=== PATIENT | male | born 1960 | race Caucasian/White ===

== ENCOUNTER 2020-03-14 09:41 | Outpatient (REF) | payer MEDICARE, MEDICAID, SELFPAY | END 2020-03-14 09:42 | disposition home or self-care (01) | LOC: HO.MDS 09:41 | PROVIDERS: PCP Internal Medicine; Visit Provider Internal Medicine Gastroenterology | DX: K50.10 Crohn's disease of large intestine without complications (principal) | CPT/HCPCS: 96365; J3380 ==

== ENCOUNTER 2020-03-23 12:51 | Day surgery (SDC) | payer MEDICARE, MEDICAID, SELFPAY ==
[2020-03-22 12:08] VITALS: BMI 36.6
--- NOTE | 2020-03-22 12:44 | HO.ANESPROP2 ---
Documented by User: Sneha Yanira 03/22/20 12:46 HPI - Anesthesia Eval Consult details Narrative: 59yo M for colonoscopy: Crohn's ds [facility] Past Medical History Medical History Acute promyelocytic leukemia Anxiety Asthma Chronic cholecystitis Colitis Crohn disease Depression Diabetes 1.5, managed as type 1 Elevated serum glutamic pyruvic transaminase (SGPT) level H/O flexible sigmoidoscopy Hypertension Kidney disease Left sided abdominal pain Renal stones Thalamic pain syndrome (hyperesthetic) Tubular adenoma of colon Surgical History Surgical History H/O lithotripsy H/O rectal sphincterotomy History of cholecystectomy History of colonoscopy History of hemorrhoidectomy Social History Social History Smoking Status: Former smoker Smoked in Last 30 Days: No Use of substances other than those prescribed or required for medical reasons: No Advance Directives: No Advance Directives Information Provided: No Meds Allergies Allergy/AdvReac Type Severity Reaction Status Date / Time No Known Allergies Allergy Unverified 02/24/20 15:27 [No Known Allergies*] none Allergy Unknown Uncoded 12/27/19 00:00 Home Medications Medication Instructions Recorded Confirmed Type albuterol sulfate INHALATION 03/22/20 History albuterol sulfate [Ventolin HFA] INHALATION 03/22/20 History budesonide PO 03/22/20 History budesonide-formoterol [Symbicort] INHALATION 03/22/20 History docusate sodium [Colace] 100 mg PO DAILY 03/22/20 03/22/20 History glyburide mg PO 03/22/20 History hydrocortisone acetate [Anusol-HC] 25 mg WI BID 03/22/20 03/22/20 History lisinopril PO 03/22/20 History mesalamine [Lialda] PO 03/22/20 History metformin mg PO 03/22/20 History methylcellulose (laxative) 500 mg PO BID 03/22/20 03/22/20 History [Citrucel] mirtazapine mg PO 03/22/20 History quetiapine PO 03/22/20 History sucralfate PO 03/22/20 History tapentadol [Nucynta] mg PO 03/22/20 03/22/20 History vedolizumab [Entyvio] 300 mg IV Q4W 03/22/20 03/22/20 History amlodipine 5 mg PO DAILY 03/23/20 03/23/20 History Exam Exam Date and Time: March 22, 2020 1244 Height,Weight and Vital Signs: Height 6 ft 3 in Weight 132.903 kg Pertinent Lab Results Pertinent Lab Results: Laboratory Tests 02/28/20 02/28/20 11:10 11:10 WBC 11.7 H Hgb 14.4 Hct 46.3 Plt Count 376 D Sodium 141 Potassium 4.6 Chloride 101 BUN 17 H D Creatinine 1.15 Assessment and Plan Assessment Anesthesia Assessment: Chart Reviewed Documented by User: Aron Morgan MD 03/23/20 13:48 PMFSH Past Medical History Medical History Acute promyelocytic leukemia Anxiety Asthma Chronic cholecystitis Colitis Crohn disease Depression Diabetes 1.5, managed as type 1 Elevated serum glutamic pyruvic transaminase (SGPT) level H/O flexible sigmoidoscopy Hypertension Kidney disease Left sided abdominal pain Renal stones Thalamic pain syndrome (hyperesthetic) Tubular adenoma of colon Surgical History Surgical History H/O lithotripsy H/O rectal sphincterotomy History of cholecystectomy History of colonoscopy History of hemorrhoidectomy Social History Social History Smoking Status: Former smoker Smoked in Last 30 Days: No Use of substances other than those prescribed or required for medical reasons: No Advance Directives: No Advance Directives Information Provided: No Meds Allergies Allergy/AdvReac Type Severity Reaction Status Date / Time No Known Allergies Allergy Unverified 02/24/20 15:27 [No Known Allergies*] none Allergy Unknown Uncoded 12/27/19 00:00 Home Medications Medication Instructions Recorded Confirmed Type albuterol sulfate INHALATION 03/22/20 History albuterol sulfate [Ventolin HFA] INHALATION 03/22/20 History budesonide PO 03/22/20 History budesonide-formoterol [Symbicort] INHALATION 03/22/20 History docusate sodium [Colace] 100 mg PO DAILY 03/22/20 03/22/20 History glyburide mg PO 03/22/20 History hydrocortisone acetate [Anusol-HC] 25 mg WI BID 03/22/20 03/22/20 History lisinopril PO 03/22/20 History mesalamine [Lialda] PO 03/22/20 History metformin mg PO 03/22/20 History methylcellulose (laxative) 500 mg PO BID 03/22/20 03/22/20 History [Citrucel] mirtazapine mg PO 03/22/20 History quetiapine PO 03/22/20 History sucralfate PO 03/22/20 History tapentadol [Nucynta] mg PO 03/22/20 03/22/20 History vedolizumab [Entyvio] 300 mg IV Q4W 03/22/20 03/22/20 History amlodipine 5 mg PO DAILY 03/23/20 03/23/20 History Exam Airway Mallampati Class: III TM Dist: >3cm Denture: Upper and Lower Heart: rrr Lungs: nl Other: ao Assessment and Plan Assessment Anesthesia Assessment: Anesthesia Plan Discussed, PAT Visit and Chart Reviewed Final Anesthetic Review NPO: Yes ASA Class: III Final Preanesthetic Review: No Changes in Pt Med Stat, Meds/Allgs Chart Reviewed, Consent Obtained/Reviewed and Anes Risks/Benef Reviewed Patient Risk: Intermediate Anesthetic Plan Anesthetic Plan: MAC: Disposition: Standard PACU
[2020-03-23 13:46] LABS: Glucose, Whole Blood 128 mg/dL (60-115)
[2020-03-23 13:47] VITALS: BP 107/71; PULSE 97; RESP 16; TEMP 36.4; O2SAT 97
[2020-03-23] MEDS: Lactated Ringers 1,000 ML 100 ML IVCONT (14:00)
--- NOTE | 2020-03-23 14:57 | MHC.SHP ---
Pre-Procedural Eval Section B Chief Complaint: crohns disease Allergies: Allergies Allergy/AdvReac Type Severity Reaction Status Date / Time No Known Allergies Allergy Unverified 02/24/20 15:27 [No Known Allergies*] none Allergy Unknown Uncoded 12/27/19 00:00 Plan Patient has been examined and remains a candidate for the planned procedure
[2020-03-23 15:47] VITALS: BP 113/71; PULSE 90; RESP 16; TEMP 36.9; O2SAT 96
--- NOTE | 2020-03-23 15:49 | PM.PROC ---
Brief Operative Note Date of procedure: 03/23/20 Pre-op diagnosis: Crohn's colitis, not responding to treatment,, hx of tubular adenomas Post-op diagnosis: other (Very active Left sided disease; 2 polyps) Procedure: Colonoscopy with excisional polypectomies and multiple bx. Anesthesia: MAC (Areli Duran CRNA, OWAIS, MD) Surgeon: Crystal Chu Estimated blood loss (mL): 10 Pathology: other (ASPIRATE FOR C. DIFICILE, POLYP -PROX TC. ASCENDING COLON. bX RIGHT, LEFT COLON) Condition: stable Disposition: PACU
[2020-03-23 16:02] VITALS: BP 112/67; PULSE 95; RESP 16; O2SAT 95
[2020-03-23 16:17] VITALS: BP 121/73; PULSE 77; RESP 16; O2SAT 95
[2020-03-23 18:39] LABS: CDIFF Ag Negative (Negative); CDIFF Internal ctrl Dots and bkg OK (V); CDiff Toxin Negative (Negative)
--- NOTE | 2020-03-24 10:04 | OP_ITS ---
SURGEON: Crystal Chu MD PROCEDURE PERFORMED: Colonoscopy with excisional polypectomy x2. Multiple biopsies were taken. ESTIMATED BLOOD LOSS: COMPLICATIONS: No complications. ANESTHESIA: Monitored. ANESTHESIOLOGIST: Howard Duran CRNA/Rodríguez Morgan ASSISTANTS:NONE SPECIMENS: Removed diminutive polyp from proximal transverse colon, diminutive polyp from ascending colon. Biopsies right, biopsies left. PREOPERATIVE DIAGNOSES: Exacerbation of inflammatory bowel disease, categorized as Crohn's colitis. PRIMARY CARE PROVIDER: Cherelle Elizalde. POSTOPERATIVE DIAGNOSES: Active disease: Lleft sided most active; Fadia-Appendiceal inflammatory changes noted. DIE CASTER: Dr. Chu. FINDINGS: Digital rectal exam revealed difficulty to totally palpate prostate. Video colonoscope was introduced without difficulty. There was definite inflammatory changes from the rectum on up through the majority of the left colon to approximately 60 cm on the scope. There were ulcerations and friability. Prep was excellent. Scope slowly moved through this area and after the splenic flexure, mucosa was mildly edematous. Scarring was noted. I was able to get to the cecum. There was area of periappendiceal inflammatory changes. I could not hold position to biopsy and I pulled back through ascending colon (due to moderate spasm and degree of redundancy, intubation of the terminal ileum was not able to be done). Random right colon biopsies were obtained. Two diminutive polyps were removed and left colon biopsies were obtained as well. I did send down a specimen, a colonic aspirate for C difficile assessment. Anorectal verge was clear. No large hemorrhoids were seen. PLAN: At this time, I am going to make a brief summary of this patient's current activity. CURRENT MEDICATIONS: Budesonide 6 mg daily, Entyvio 300 mg by IV infusion q.4 weeks. Citrucel 1 or 2 doses daily. Lialda was recently restarted in the last 2 months. The patient in October was treated with vancomycin for C difficile. On 11/27/2019, he had a stool calprotectin 1970 (this is elevated). In December, a Prometheus Monitr testing came out as 79, which is consistent with very active disease. CRP on 12/07 was 0.97, repeated on 02/27 was 4.32. Entyvio level done on 01/03 was 9.5. No antibodies were detected. Reminder, the patient has morbid obesity, diabetes, and asthma as comorbid conditions. He recently has been having some dental work, so he has no lower teeth (his lower teeth have been extracted.) He does admit to eating, trying to maintain adequate protein intake. Last biopsies were in 2018 in August that was chronic active disease, both in August and November. However, he was clinically improved at that time. Reminder, the patient had been previously on Humira which was stopped in 2016, when he was diagnosed with Promyelocytic Leukemia from which he is in remission. Current CRP on 12/07 was 0.97, on 02/27 with increased activity was 4.32 and Entyvio level done on 01/03 was 9.5 with no antibodies. The patient clearly has very active disease at this time. We will await biopsies and stool aspirate findings consideration to changing management at this time. GRAFT OR IMPLANTS: No grafts or implants. CONDITION: Postprocedure, stable. Crystal Chu MD MEN/MODL / [id number] MTDD
== END 2020-03-23 16:30 | disposition home or self-care (01) ==
PROVIDERS: Internal Medicine Gastroenterology; PCP Internal Medicine; Visit Provider Internal Medicine
PROC: 0DJD8ZZ Inspection of Lower Intestinal Tract, Via Natural or Artificial Opening Endoscopic (ICD-10-PCS; CPT 45378; principal; 2020-03-23 14:30)
DX: K50.10 Crohn's disease of large intestine without complications (principal); Z86.010 Personal history of colon polyps; D12.2 Benign neoplasm of ascending colon; D12.3 Benign neoplasm of transverse colon; C92.40 Acute promyelocytic leukemia, not having achieved remission; G89.0 Central pain syndrome; I10 Essential (primary) hypertension; E10.9 Type 1 diabetes mellitus without complications; J45.909 Unspecified asthma, uncomplicated; Z79.51 Long term (current) use of inhaled steroids; Z79.84 Long term (current) use of oral hypoglycemic drugs; Z79.899 Other long term (current) drug therapy; Z87.442 Personal history of urinary calculi; Z90.49 Acquired absence of other specified parts of digestive tract; Z87.891 Personal history of nicotine dependence
CPT/HCPCS: 45380; 82947; 87324; 87449; 88305

== ENCOUNTER 2020-04-12 08:30 | Outpatient (REF) | payer MEDICARE, MEDICAID, SELFPAY ==
[2020-04-12 08:57] LABS: MANUAL DIFF FLAG NO
[2020-04-12 09:06] LABS: Basophils Absolute Auto 0.1 X10*3/uL (0.0-0.2); Basophils Percent Auto 0.7 % (0-2); Eosinophils Absolute Auto 0.2 X10*3/uL (0.0-0.4); Eosinophils Percent Auto 2.8 % (0-4); Hematocrit 42.7 % (42-52); Hemoglobin 13.6 g/dl (14.0-18.0); Imm Gran Abs Auto 0.02 X10*3/uL (0.00-0.03); Imm Gran Pct Auto 0.3 % (0.0-0.4); Lymphocytes Absolute Auto 2.2 X10*3/uL (1.2-4.9); Mean Corpuscular HGB Conc 31.9 g/dl (31.0-36.0); Mean Corpuscular Volume 94.3 fL (80-98); Monocytes Absolute Auto 0.6 X10*3/uL (0.1-1.2); Monocytes Percent Auto 8.8 % (2-11); Neutrophils Percent Auto 56.4 % (45-73); Platelet Count 350 X10*3/uL (160-400); Red Blood Count 4.53 X10*6/uL (4.60-5.80); Red Cell Distribution Width 13.4 % (11.0-16.0); White Blood Count 7.1 X10*3/uL (4.8-10.8)
[2020-04-12 09:35] LABS: Alanine Aminotransferase 15 U/L (0-40); Albumin Level 3.8 g/dL (3.5-5.0); Alkaline Phosphatase 63 U/L (39-117); Anion Gap 8 (12-20); Aspartate Amino Transferase 14 U/L (5-37); Bilirubin Total 0.6 mg/dL (0.0-1.0); Blood Urea Nitrogen 13 mg/dL (9-16); C Reactive Protein 1.58 mg/dL (< or = 0.50); Calcium 8.7 mg/dL (8.4-10.2); Carbon Dioxide 32 mmol/L (22-29); Chloride 104 mmol/L (96-108); Estimated Glomerular Filt Rate > 60; Glucose Random 109 mg/dL (60-115); Potassium 4.1 mmol/l (3.3-5.1); Sodium 140 mmol/L (135-145); Total Protein 6.9 g/dL (6.5-8.0)
== END 2020-04-12 08:31 | disposition home or self-care (01) ==
LOC: HO.MDS 08:30
PROVIDERS: PCP Internal Medicine; Visit Provider Internal Medicine Gastroenterology
DX: K50.90 Crohn's disease, unspecified, without complications (principal)
CPT/HCPCS: 36415; 80053; 85025; 86140; 96365; J3380

== ENCOUNTER → 2020-04-26 08:42 | Outpatient (BNVA) | payer MEDICARE, MEDICAID, SELFPAY | PROVIDERS: PCP Internal Medicine; Referring Provider Internal Medicine; Visit Provider Internal Medicine Gastroenterology | DX: K50.111 Crohn's disease of large intestine with rectal bleeding (principal); K52.9 Noninfective gastroenteritis and colitis, unspecified; D12.2 Benign neoplasm of ascending colon; Z98.890 Other specified postprocedural states | CPT/HCPCS: Q3014 ==

== ENCOUNTER 2020-05-10 08:46 | Outpatient (REF) | payer MEDICARE, MEDICAID, SELFPAY ==
[2020-05-10 09:22] LABS: Basophils Absolute Auto 0.1 X10*3/uL (0.0-0.2); Basophils Percent Auto 0.6 % (0-2); Eosinophils Absolute Auto 0.2 X10*3/uL (0.0-0.4); Eosinophils Percent Auto 2.3 % (0-4); Hematocrit 42.2 % (42-52); Hemoglobin 13.5 g/dl (14.0-18.0); Imm Gran Abs Auto 0.02 X10*3/uL (0.00-0.03); Imm Gran Pct Auto 0.3 % (0.0-0.4); Lymphocytes Absolute Auto 2.1 X10*3/uL (1.2-4.9); Lymphocytes Percent Auto 26.5 % (20-40); MANUAL DIFF FLAG NO; Mean Corpuscular Hemoglobin 29.8 pg (27.0-33.0); Mean Corpuscular Volume 93.2 fL (80-98); Mean Platelet Volume 8.9 fL (9.4-12.4); Monocytes Absolute Auto 0.7 X10*3/uL (0.1-1.2); Monocytes Percent Auto 9.1 % (2-11); Neutrophils Absolute Auto 4.8 X10*3/uL (2.0-8.3); Neutrophils Percent Auto 61.2 % (45-73); Platelet Count 356 X10*3/uL (160-400); Red Blood Count 4.53 X10*6/uL (4.60-5.80); Red Cell Distribution Width 13.4 % (11.0-16.0); White Blood Count 7.8 X10*3/uL (4.8-10.8)
[2020-05-10 09:44] LABS: Alanine Aminotransferase 15 U/L (0-40); Albumin Level 3.7 g/dL (3.5-5.0); Alkaline Phosphatase 64 U/L (39-117); Anion Gap 11 (12-20); Aspartate Amino Transferase 12 U/L (5-37); Bilirubin Total 0.5 mg/dL (0.0-1.0); Blood Urea Nitrogen 16 mg/dL (9-16); C Reactive Protein 1.93 mg/dL (< or = 0.50); Calcium 8.8 mg/dL (8.4-10.2); Carbon Dioxide 29 mmol/L (22-29); Chloride 103 mmol/L (96-108); Estimated Glomerular Filt Rate > 60; Glucose Random 129 mg/dL (60-115); Potassium 3.9 mmol/l (3.3-5.1); Sodium 139 mmol/L (135-145); Total Protein 6.9 g/dL (6.5-8.0)
== END 2020-05-10 08:47 | disposition home or self-care (01) ==
LOC: HO.MDS 08:46
PROVIDERS: PCP Internal Medicine; Visit Provider Internal Medicine Gastroenterology
DX: K50.90 Crohn's disease, unspecified, without complications (principal)
CPT/HCPCS: 36415; 80053; 85025; 86140; 96365; J3380

== ENCOUNTER 2020-05-11 08:52 | Outpatient (REF) | payer MEDICARE, MEDICAID, SELFPAY ==
--- NOTE | 2020-05-11 08:53 | MR_ITS ---
EXAMINATION: MR ABDOMEN WITHOUT AND WITH CONTRAST MR PELVIS WITHOUT AND WITH CONTRAST CLINICAL INFORMATION: K52.9 - Noninfective gastroenteritis and colitis, unspecified COMPARISON: Renal ultrasound 04/21/2019, 12/09/2018, CT abdomen and pelvis noncontrast 02/11/2018 and 06/23/2017 TECHNIQUE: MR abdomen and MR pelvis are performed without and with use of 10 mL intravenous Gadavist gadolinium contrast. Imaging is performed in 3 planes. Patient had 1.5 L of oral Breeza prior to imaging. FINDINGS: LUNG BASES: The visualized lung bases are unremarkable. LIVER, GALLBLADDER, AND BILIARY TREE: The liver is normal in size, smooth in contour, and normal in signal. No focal hepatic lesion or biliary ductal dilatation is present. Prior cholecystectomy. PANCREAS: Unremarkable. SPLEEN: Normal. ADRENAL GLANDS: Normal. KIDNEYS AND URETERS: The kidneys are normal in size, shape, and enhance symmetrically. No hydronephrosis. No perinephric stranding. There is a punctate cyst upper pole right kidney under 1 cm. GASTROINTESTINAL TRACT: There is moderate circumferential wall thickening left colon 7-9 mm in thickness beginning at mid descending colon and continuing in continuity through the sigmoid and rectum. There is no high T2 signal in the affected areas. No engorgement vasa recta or stranding in the adjacent mesentery. There is no proximal obstruction, ascites, or fluid collection. Following contrast, there is mild circumferential hyperenhancement in the wall. The remainder of the large and small bowel is unremarkable. The appendix is normal. There is similar extent of involvement with circumferential wall thickening left colon and rectum on prior CT studies 2018. ABDOMINAL WALL: Small bilateral fat-containing inguinal hernias similar to prior CT 2018. No ventral hernia. LYMPH NODES: No lymphadenopathy. VASCULAR: Unremarkable. PELVIS: No additional findings. Prostate within normal size. Seminal vesicles symmetric. OSSEOUS STRUCTURES: No acute bony abnormality. There are degenerative changes lumbosacral junction and probable intravertebral hemangioma are again seen at T12. MR/MR abdomen wo/w con IMPRESSION: 1. Moderate circumferential wall thickening from mid ascending colon through the sigmoid and rectum without inflammatory changes in the adjacent mesentery, vasa recta engorgement, T2 signal or proximal obstruction. There is circumferential wall enhancement suggesting mild underlying inflammation. Findings likely related to chronic ulcerative colitis. Similar disease noted left colon and rectum in 2018. 2. Remainder of large and small bowel unremarkable. Normal appendix. 3. No adenopathy, ascites, or fluid collection.
== END 2020-05-11 08:53 | disposition home or self-care (01) ==
LOC: HO.MRI 08:52
PROVIDERS: Visit Provider Internal Medicine Gastroenterology
DX: K50.111 Crohn's disease of large intestine with rectal bleeding (principal); K52.9 Noninfective gastroenteritis and colitis, unspecified
CPT/HCPCS: 72197; 74183; A9585

== ENCOUNTER 2020-05-29 11:26 | Emergency (ER) | payer MEDICARE, MEDICAID, SELFPAY ==
[2020-05-29 11:30] VITALS: BP 135/75; PULSE 108; RESP 17; TEMP 36.6; O2SAT 97; BMI 34.7
== END 2020-05-29 15:30 | disposition left against medical advice (07) ==
LOC: HO.ED 15:50
PROVIDERS: Emergency Provider Emergency Medicine; PCP Internal Medicine
DX: R10.9 Unspecified abdominal pain (principal)
CPT/HCPCS: 99282

== ENCOUNTER 2020-06-07 08:46 | Outpatient (REF) | payer MEDICARE, MEDICAID, SELFPAY ==
[2020-06-07 09:18] LABS: MANUAL DIFF FLAG NO
[2020-06-07 09:19] LABS: Basophils Percent Auto 0.5 % (0-2); Eosinophils Absolute Auto 0.2 X10*3/uL (0.0-0.4); Eosinophils Percent Auto 2.8 % (0-4); Hematocrit 42.4 % (42-52); Hemoglobin 13.4 g/dl (14.0-18.0); Imm Gran Abs Auto 0.02 X10*3/uL (0.00-0.03); Imm Gran Pct Auto 0.2 % (0.0-0.4); Lymphocytes Absolute Auto 2.7 X10*3/uL (1.2-4.9); Lymphocytes Percent Auto 30.9 % (20-40); Mean Corpuscular HGB Conc 31.6 g/dl (31.0-36.0); Mean Corpuscular Hemoglobin 29.7 pg (27.0-33.0); Monocytes Absolute Auto 0.8 X10*3/uL (0.1-1.2); Monocytes Percent Auto 8.7 % (2-11); Neutrophils Absolute Auto 4.9 X10*3/uL (2.0-8.3); Neutrophils Percent Auto 56.9 % (45-73); Platelet Count 407 X10*3/uL (160-400); Red Blood Count 4.51 X10*6/uL (4.60-5.80); Red Cell Distribution Width 13.6 % (11.0-16.0); White Blood Count 8.7 X10*3/uL (4.8-10.8)
[2020-06-07 09:43] LABS: Alanine Aminotransferase 15 U/L (0-40); Albumin Level 3.7 g/dL (3.5-5.0); Alkaline Phosphatase 61 U/L (39-117); Anion Gap 11 (12-20); Aspartate Amino Transferase 11 U/L (5-37); Bilirubin Total 0.3 mg/dL (0.0-1.0); Blood Urea Nitrogen 15 mg/dL (9-16); C Reactive Protein 4.59 mg/dL (< or = 0.50); Carbon Dioxide 29 mmol/L (22-29); Chloride 105 mmol/L (96-108); Estimated Glomerular Filt Rate > 60; Glucose Random 122 mg/dL (60-115); Potassium 4.4 mmol/l (3.3-5.1); Sodium 141 mmol/L (135-145)
== END 2020-06-07 08:47 | disposition home or self-care (01) ==
LOC: HO.MDS 08:46
PROVIDERS: PCP Internal Medicine; Visit Provider Internal Medicine Gastroenterology
DX: K50.10 Crohn's disease of large intestine without complications (principal)
CPT/HCPCS: 36415; 80053; 85025; 86140; 96365; J3380

== ENCOUNTER 2020-06-12 11:24 | Outpatient (REF) | payer MEDICARE, MEDICAID, SELFPAY ==
[2020-06-12 14:51] LABS: CDIFF Ag Negative (Negative); CDIFF Internal ctrl Dots and bkg OK (V); CDiff Toxin Negative (Negative)
[2020-06-12 15:16] LABS: Leukocytes Stool Qualitative NEGATIVE (NEGATIVE)
== END 2020-06-12 11:25 | disposition home or self-care (01) ==
LOC: HO.LAB 11:24
PROVIDERS: PCP Internal Medicine; Visit Provider Internal Medicine Gastroenterology
DX: K50.111 Crohn's disease of large intestine with rectal bleeding (principal); K52.9 Noninfective gastroenteritis and colitis, unspecified
CPT/HCPCS: 87324; 87449; 89055

== ENCOUNTER 2020-07-03 15:50 | Emergency (ER) | payer MEDICARE, MEDICAID, SELFPAY ==
[2020-07-03 16:20] VITALS: BP 153/71; PULSE 99; RESP 18; TEMP 36.8; O2SAT 99; BMI 32.5
[2020-07-03 19:05] LABS: MANUAL DIFF FLAG NO
[2020-07-03 19:11] LABS: Basophils Absolute Auto 0.1 X10*3/uL (0.0-0.2); Basophils Percent Auto 0.7 % (0-2); Eosinophils Absolute Auto 0.4 X10*3/uL (0.0-0.4); Eosinophils Percent Auto 4.6 % (0-4); Hematocrit 38.8 % (42-52); Hemoglobin 12.1 g/dl (14.0-18.0); Imm Gran Abs Auto 0.03 X10*3/uL (0.00-0.03); Imm Gran Pct Auto 0.3 % (0.0-0.4); Lymphocytes Absolute Auto 2.7 X10*3/uL (1.2-4.9); Lymphocytes Percent Auto 30.7 % (20-40); Mean Corpuscular HGB Conc 31.2 g/dl (31.0-36.0); Mean Corpuscular Hemoglobin 29.2 pg (27.0-33.0); Mean Corpuscular Volume 93.7 fL (80-98); Mean Platelet Volume 8.7 fL (9.4-12.4); Monocytes Absolute Auto 0.8 X10*3/uL (0.1-1.2); Monocytes Percent Auto 9.4 % (2-11); Neutrophils Absolute Auto 4.8 X10*3/uL (2.0-8.3); Neutrophils Percent Auto 54.3 % (45-73); Platelet Count 517 X10*3/uL (160-400); Red Blood Count 4.14 X10*6/uL (4.60-5.80); Red Cell Distribution Width 13.3 % (11.0-16.0); White Blood Count 8.8 X10*3/uL (4.8-10.8)
[2020-07-03 19:33] LABS: Alanine Aminotransferase 9 U/L (0-40); Albumin Level 3.6 g/dL (3.5-5.0); Alkaline Phosphatase 54 U/L (39-117); Anion Gap 13 (12-20); Aspartate Amino Transferase 9 U/L (5-37); Bilirubin Direct 0.2 mg/dL (0.0-0.5); Bilirubin Total 0.4 mg/dL (0.0-1.0); Blood Urea Nitrogen 9 mg/dL (9-16); Calcium 8.7 mg/dL (8.4-10.2); Carbon Dioxide 27 mmol/L (22-29); Chloride 104 mmol/L (96-108); Creatinine Clr Calc Pharmacy 104.2; Estimated Glomerular Filt Rate > 60; Glucose Random 119 mg/dL (60-115); Lipase 12 U/L (8-78); Potassium 3.8 mmol/l (3.3-5.1); Sodium 140 mmol/L (135-145)
== END 2020-07-03 20:35 | disposition left against medical advice (07) ==
PROVIDERS: Emergency Medicine Emergency Medical Services; Emergency Provider Emergency Medicine; PCP Internal Medicine
DX: R11.2 Nausea with vomiting, unspecified (principal); R19.7 Diarrhea, unspecified; K50.90 Crohn's disease, unspecified, without complications; E10.9 Type 1 diabetes mellitus without complications; I10 Essential (primary) hypertension
CPT/HCPCS: 36415; 80048; 80076; 83690; 85025; 99282; 99283

== ENCOUNTER 2020-07-06 11:52 | Day surgery (SDC) | payer MEDICARE, MEDICAID, SELFPAY ==
--- NOTE | 2020-07-05 11:37 | HO.ANESPROP2 ---
Documented by User: Sneha Doyle 07/05/20 11:38 HPI - Anesthesia Eval Consult details Narrative: 59yo M for upper endoscopy and colonoscopy: Crohn's ds s/p colonoscopy with TIVA 03/2020 [facility] Past Medical History Medical History Acute promyelocytic leukemia Anxiety Asthma Chronic cholecystitis Colitis Crohn disease Depression Diabetes 1.5, managed as type 1 Elevated serum glutamic pyruvic transaminase (SGPT) level H/O flexible sigmoidoscopy Hypertension Kidney disease Left sided abdominal pain Renal stones Thalamic pain syndrome (hyperesthetic) Tubular adenoma of colon Surgical History Surgical History H/O lithotripsy H/O rectal sphincterotomy History of cholecystectomy History of colonoscopy History of hemorrhoidectomy Social History Social History Household Members: Children Housing: Apartment Alcohol intake: current Alcohol intake frequency: does not drink Smoking Status: Former smoker Smoked in Last 30 Days: No Use of substances other than those prescribed or required for medical reasons: No Have you been hit, kicked, punched, or otherwise hurt by someone within the past year? If so, by whom?: No Advance Directives: No Advance Directives Information Provided: Yes service: No Current occupational status: disabled Meds Allergies Allergy/AdvReac Type Severity Reaction Status Date / Time No Known Allergies Allergy Verified 07/03/20 16:20 [No Known Allergies*] none Allergy Unknown Unknown Uncoded 07/03/20 16:20 Home Medications Medication Instructions Recorded Confirmed Type Citrucel 500 mg PO BID 03/22/20 04/26/20 History Entyvio 300 mg IV Q4W 03/22/20 04/26/20 History albuterol sulfate INHALATION 03/22/20 04/26/20 History albuterol sulfate [Ventolin HFA] INHALATION 03/22/20 04/26/20 History budesonide-formoterol [Symbicort] INHALATION 03/22/20 04/26/20 History docusate sodium [Colace] 100 mg PO DAILY 03/22/20 04/26/20 History glyburide mg PO 03/22/20 04/26/20 History hydrocortisone acetate [Anusol-HC] 25 mg NM BID 03/22/20 04/26/20 History lisinopril 5 mg PO 03/22/20 04/26/20 History mirtazapine mg PO 03/22/20 04/26/20 History quetiapine PO 03/22/20 04/26/20 History amlodipine 5 mg PO DAILY 03/23/20 04/26/20 History hydroxyzine HCl 50 mg tablet 50 mg PO BID 04/26/20 04/26/20 History melatonin 5 mg tablet 5 mg PO BEDTIME PRN 04/26/20 04/26/20 History Exam Exam Date and Time: July 05, 2020 1137 Pertinent Lab Results Pertinent Lab Results: Laboratory Tests 07/03/20 07/03/20 19:00 19:00 WBC 8.8 Hgb 12.1 L Hct 38.8 L Plt Count 517 H D Sodium 140 Potassium 3.8 Chloride 104 Carbon Dioxide 27 BUN 9 Creatinine 1.03 Assessment and Plan Assessment Anesthesia Assessment: Chart Reviewed Documented by User: Antoinette Henderson 07/06/20 12:46 [facility] Past Medical History Medical History Acute promyelocytic leukemia Anxiety Asthma Chronic cholecystitis Colitis Crohn disease Depression Diabetes 1.5, managed as type 1 Elevated serum glutamic pyruvic transaminase (SGPT) level H/O flexible sigmoidoscopy Hypertension Kidney disease Left sided abdominal pain Renal stones Thalamic pain syndrome (hyperesthetic) Tubular adenoma of colon Surgical History Surgical History H/O lithotripsy H/O rectal sphincterotomy History of cholecystectomy History of colonoscopy History of hemorrhoidectomy Social History Social History Household Members: Children Housing: Apartment Alcohol intake: current Alcohol intake frequency: does not drink Smoking Status: Former smoker Smoked in Last 30 Days: No Use of substances other than those prescribed or required for medical reasons: No Have you been hit, kicked, punched, or otherwise hurt by someone within the past year? If so, by whom?: No Advance Directives: No Advance Directives Information Provided: Yes service: No Current occupational status: disabled Meds Allergies Allergy/AdvReac Type Severity Reaction Status Date / Time No Known Allergies Allergy Verified 07/03/20 16:20 [No Known Allergies*] none Allergy Unknown Unknown Uncoded 07/03/20 16:20 Home Medications Medication Instructions Recorded Confirmed Type Citrucel 500 mg PO BID 03/22/20 04/26/20 History Entyvio 300 mg IV Q4W 03/22/20 04/26/20 History albuterol sulfate INHALATION 03/22/20 04/26/20 History albuterol sulfate [Ventolin HFA] INHALATION 03/22/20 04/26/20 History budesonide-formoterol [Symbicort] INHALATION 03/22/20 04/26/20 History docusate sodium [Colace] 100 mg PO DAILY 03/22/20 04/26/20 History glyburide mg PO 03/22/20 04/26/20 History hydrocortisone acetate [Anusol-HC] 25 mg NM BID 03/22/20 04/26/20 History lisinopril 5 mg PO 03/22/20 04/26/20 History mirtazapine mg PO 03/22/20 04/26/20 History quetiapine PO 03/22/20 04/26/20 History amlodipine 5 mg PO DAILY 03/23/20 04/26/20 History hydroxyzine HCl 50 mg tablet 50 mg PO BID 04/26/20 04/26/20 History melatonin 5 mg tablet 5 mg PO BEDTIME PRN 04/26/20 04/26/20 History Exam Airway Mallampati Class: III TM Dist: >3cm Denture: Upper and Lower Heart: RRR Lungs: CTA
[2020-07-06 12:27] VITALS: BMI 33.7
[2020-07-06 12:28] VITALS: BP 142/92; PULSE 100; RESP 20; TEMP 36; O2SAT 95
[2020-07-06 12:40] LABS: Glucose, Whole Blood 126 mg/dL (60-115)
[2020-07-06] MEDS: Lactated Ringers 1,000 ML 100 ML IVCONT (12:55)
--- NOTE | 2020-07-06 12:57 | P.HPSUR_ITS ---
Pre-Procedural Eval Section B Chief Complaint: anemia Details of Present Illness: KNOWN IBD, HX OF TUBULAR ADENOMA ON ENTIVIO INFUSIONS--CONTINUED BLEEDING AND NEW INTRACTABLE DIARRHEA. ? NON RESPONDING TO THE INFUSIONS. Relevant Family History (Specify if Yes): No Relevant Social History: None Present Medications: see Short Stay Collaborative assessment Medical History: Significant History (IBD--PRESUMPTIVE CROHN'S DISEASE, OBESITY, DIABETES, HX OF PROMYELOCYTIC LEUKEMIA) History of Previous Operations: Relevant previous surgery/procedure and date(s) (SEE [employer]--LAST COLO HAD A TA) Allergies: Allergies Allergy/AdvReac Type Severity Reaction Status Date / Time No Known Allergies Allergy Verified 07/03/20 16:20 [No Known Allergies*] none Allergy Unknown Unknown Uncoded 07/03/20 16:20 Review of Systems Sugical H&P ROS: Negative: Cardiovascular and Yes, Specify: Constitution, Respiratory (HAS HX OF ASTHMA), Hem-Onc (LEUKEMIA IN REMISSION.), Gastrointestinal (SEE HPI) and Endocrine (DIABETIC) Exam Surgical H&P Exam: Normal: HEENT, Normal: Heart, Normal: Lungs and Normal: Extremities and Significant Findings: Abdomen (CENTRAL OBESITY) Plan Diagnosis/Plan: Unchanged I have reviewed the history and physical and performed a pertinent physical examination on my patient. No changes have occurred unless specified.YES
[2020-07-06 13:52] VITALS: BP 105/58; PULSE 94; RESP 16; TEMP 36.6; O2SAT 97
[2020-07-06 14:07] VITALS: BP 144/88; PULSE 95; RESP 18; TEMP 36.3; O2SAT 98
[2020-07-06 14:34] LABS: MANUAL DIFF FLAG NO
[2020-07-06 14:39] LABS: Basophils Absolute Auto 0.1 X10*3/uL (0.0-0.2); Basophils Percent Auto 0.7 % (0-2); Eosinophils Absolute Auto 0.4 X10*3/uL (0.0-0.4); Eosinophils Percent Auto 5.3 % (0-4); Hematocrit 38.3 % (42-52); Hemoglobin 11.8 g/dl (14.0-18.0); Imm Gran Abs Auto 0.02 X10*3/uL (0.00-0.03); Imm Gran Pct Auto 0.3 % (0.0-0.4); Lymphocytes Absolute Auto 2.3 X10*3/uL (1.2-4.9); Lymphocytes Percent Auto 31.8 % (20-40); Mean Corpuscular HGB Conc 30.8 g/dl (31.0-36.0); Mean Corpuscular Volume 94.1 fL (80-98); Mean Platelet Volume 8.9 fL (9.4-12.4); Monocytes Absolute Auto 0.7 X10*3/uL (0.1-1.2); Monocytes Percent Auto 10.1 % (2-11); Neutrophils Absolute Auto 3.8 X10*3/uL (2.0-8.3); Neutrophils Percent Auto 51.8 % (45-73); Platelet Count 473 X10*3/uL (160-400); Red Blood Count 4.07 X10*6/uL (4.60-5.80); White Blood Count 7.4 X10*3/uL (4.8-10.8)
--- NOTE | 2020-07-06 14:46 | HO.POSTANES ---
Post Anesthesia Evaluation Post Anesthesia Evaluation Vital Signs: Vital Signs Temp Pulse Resp BP Pulse Ox 07/06/20 14:07 97.4 F 95 18 144/88 H 98 07/06/20 13:52 97.9 F 94 16 105/58 L 97 07/06/20 12:28 96.8 F 100 20 142/92 H 95 Anesthesia: TIVA Mental Status: Awake Pain Control: Satisfactory Nausea/Vomiting: None Hydration: Adequate Anesthesia-Related Issues: No Anes. Related Issues
[2020-07-06 14:48] LABS: INTERNATIONAL NORM RATIO 1.1 (0.9-1.1); Prothrombin Time 13.6 SEC (10.8-13.0)
[2020-07-06 15:39] LABS: Alanine Aminotransferase 13 U/L (0-40); Albumin Level 3.6 g/dL (3.5-5.0); Alkaline Phosphatase 54 U/L (39-117); Anion Gap 15 (12-20); Aspartate Amino Transferase 16 U/L (5-37); Bilirubin Total 0.4 mg/dL (0.0-1.0); Blood Urea Nitrogen 7 mg/dL (9-16); C Reactive Protein 6.08 mg/dL (< or = 0.50); Calcium 8.5 mg/dL (8.4-10.2); Carbon Dioxide 28 mmol/L (22-29); Chloride 101 mmol/L (96-108); Creatinine Clr Calc Pharmacy 89.6; Estimated Glomerular Filt Rate > 60; Glucose Random 118 mg/dL (60-115); Sodium 140 mmol/L (135-145); Total Protein 7.1 g/dL (6.5-8.0)
--- NOTE | 2020-07-06 21:28 | OP_ITS ---
SURGEON: Crystal Chu MD PROCEDURE PERFORMED: EGD with biopsy, colonoscopy to the level of the terminal ileum with biopsies. ESTIMATED BLOOD LOSS: Less than 20 mL. COMPLICATIONS: No complications. ANESTHESIA: Monitored. ASSISTANTS: No assistant account manager. SPECIMENS: Specimens removed; duodenal biopsies, gastric biopsies, terminal ileal biopsies, right colon biopsies and left colon biopsies. PREOPERATIVE DIAGNOSES: Refractory symptoms; working diagnosis: patient has long-standing colitis, felt to be most consistent with Crohn's colitis. He has had increasing rectal bleeding, increasing frequency of diarrhea. Workup for C diff was negative @ this time, he has had that prev and been treated. Colonoscopy is being done to assess the level of disease activity; behaving as an Entyvio failure. POSTOPERATIVE DIAGNOSES: Upper endoscopy, superficial gastritis. Colonoscopy: Fulminant pancolitis. [employer]: Dr. Chu. CONDITION: Postop, stable. FINDINGS: Video endoscope was introduced without difficulty. It was navigated into the posterior pharynx and into the esophagus. Initially, as we went through the posterior pharynx, the arytenoid cartilages were sharp and distinct. Vocal cords were clear. Esophageal mucosa was normal down to the level of the GE junction. On entering the stomach, there was diffuse erythema of the antrum. No erosions were noted. On entering the duodenum, there was mild erythema and some postbulbar erythema and edema. Duodenal biopsies were obtained. Gastric biopsies were obtained. The scope was withdrawn. The patient tolerated procedure well. FINDINGS OF THE COLONOSCOPY: Digital rectal exam revealed decreased sphincter tone. It was hard to assess the prostate on this exam. From the insertion of the colonoscope on up, there was diffuse edematous, erythematous, friable, and bleeding mucosa. There were areas in the sigmoid, where there appeared to be mucosal sloughing. Once in the region of the cecum, I did identify the appendiceal orifice. I was able to intubate the terminal ileum for a distance of 6 to 8 cm. The villi appeared normal. There were no active erosions, etc seen in that area. Biopsies were taken, terminal ileal and right and left colon. There was a polypoid area, which was probably inflammatory. This was removed and submitted as a separate specimen at 65 cm (he has had a tubular adenoma in the past). PLAN: We will initiate steroid treatment. Entyvio will be discontinued. The patient will be referred to a tertiary center for assistance with management. The patient has had diffuse pancolitis in the past (Never to this degrees.) Initial diagnosis IBD was December,. He did have pancolitic changes @ that time. , his colonoscopy done by myself was totally normal. Rectosigmoid, right colon, and left colon biopsies were totally normal. Within 6 months period of time, he had symptomatic changes and he had diffuse disease biopsied as moderate active chronic colitis. There was a hiatus of treatment due to his Acute Promyelocytic leukemia. (DX made acute setting which included intracerebral bleed-08/13/16. Remission of leukemia--bone marrow--07/10/17--Kiran Zuleta MD--Heme/Onc.) Humira had been stopped @ that time. Biopsies done in August of 2017 showed areas of colonic mucosa that were normal and other areas bx: moderate chronic active colitis at that time, and in November of 2017 because of persistent symptomatology, a repeat exam showed moderate chronic active colitis with no dysplasia. Entyvio therapy was initiated. At the current time, the patient will be transitioned to steroid therapy--limited due to his Diabetes. Further evaluation will be based on the biopsies and response to steroid therapy will be assessed over the next 7 to 14 days with consideration to referral to one of the major IBD Clinics in [place]. ANESTHESIOLOGISTS: 1. Dr. Samuels. 2. Tom Duran CRNA. GRAFT OR IMPLANTS: No grafts or implants. Crystal Chu MD MEN/MODL / [id number] MTDD
== END 2020-07-06 14:37 | disposition home or self-care (01) ==
PROVIDERS: PCP Internal Medicine; Visit Provider Internal Medicine Gastroenterology
PROC: (CPT 45380; principal; 2020-07-06 13:50)
DX: D64.9 Anemia, unspecified (principal); K50.111 Crohn's disease of large intestine with rectal bleeding; Z86.010 Personal history of colon polyps; K64.8 Other hemorrhoids; K29.30 Chronic superficial gastritis without bleeding; J45.909 Unspecified asthma, uncomplicated; E13.9 Other specified diabetes mellitus without complications; I10 Essential (primary) hypertension; N28.9 Disorder of kidney and ureter, unspecified; G89.0 Central pain syndrome; C92.41 Acute promyelocytic leukemia, in remission; E55.9 Vitamin D deficiency, unspecified; Z79.51 Long term (current) use of inhaled steroids; Z79.84 Long term (current) use of oral hypoglycemic drugs; Z79.899 Other long term (current) drug therapy; Z87.442 Personal history of urinary calculi; Z90.49 Acquired absence of other specified parts of digestive tract
CPT/HCPCS: 45380; 43239; 36415; 80053; 82947; 85025; 85610; 86140; 88305; 88342; J2920; J3010

== ENCOUNTER 2020-07-07 08:48 | Outpatient (REF) | payer MEDICARE, MEDICAID, SELFPAY ==
[2020-07-31 14:06] LABS: Prometheus Monitr Crohn's SEE SEPARATE REPORT
[2020-07-31 14:07] LABS: Prometheus Anser VDZ SEE SEPARATE REPORT
== END 2020-07-07 08:49 | disposition home or self-care (01) ==
LOC: HO.MDS 08:48
PROVIDERS: PCP Internal Medicine; Visit Provider Internal Medicine Gastroenterology
DX: K50.10 Crohn's disease of large intestine without complications (principal)
CPT/HCPCS: 36415; 83520; 84999; 86141; 96365; J3380

== ENCOUNTER 2020-07-10 09:22 | Outpatient (REF) | payer MEDICARE, MEDICAID, SELFPAY ==
[2020-07-10 10:06] LABS: MANUAL DIFF FLAG NO
[2020-07-10 10:15] LABS: Basophils Absolute Auto 0.1 X10*3/uL (0.0-0.2); Basophils Percent Auto 0.4 % (0-2); Eosinophils Percent Auto 0.3 % (0-4); Hematocrit 38.7 % (42-52); Hemoglobin 12.2 g/dl (14.0-18.0); Imm Gran Abs Auto 0.07 X10*3/uL (0.00-0.03); Imm Gran Pct Auto 0.6 % (0.0-0.4); Lymphocytes Absolute Auto 1.5 X10*3/uL (1.2-4.9); Lymphocytes Percent Auto 13.4 % (20-40); Mean Corpuscular HGB Conc 31.5 g/dl (31.0-36.0); Mean Corpuscular Hemoglobin 29.3 pg (27.0-33.0); Mean Corpuscular Volume 92.8 fL (80-98); Mean Platelet Volume 9.3 fL (9.4-12.4); Monocytes Absolute Auto 0.9 X10*3/uL (0.1-1.2); Monocytes Percent Auto 8.1 % (2-11); Neutrophils Absolute Auto 8.8 X10*3/uL (2.0-8.3); Neutrophils Percent Auto 77.2 % (45-73); Platelet Count 532 X10*3/uL (160-400); Red Blood Count 4.17 X10*6/uL (4.60-5.80); White Blood Count 11.4 X10*3/uL (4.8-10.8)
[2020-07-10 10:45] LABS: Alanine Aminotransferase 12 U/L (0-40); Albumin Level 3.6 g/dL (3.5-5.0); Alkaline Phosphatase 53 U/L (39-117); Anion Gap 12 (12-20); Aspartate Amino Transferase 12 U/L (5-37); Bilirubin Total 0.5 mg/dL (0.0-1.0); Blood Urea Nitrogen 11 mg/dL (9-16); C Reactive Protein 2.03 mg/dL (< or = 0.50); Carbon Dioxide 29 mmol/L (22-29); Chloride 103 mmol/L (96-108); Estimated Glomerular Filt Rate > 60; Glucose Random 104 mg/dL (60-115); Potassium 3.9 mmol/L (3.3-5.1); Sodium 140 mmol/L (135-145); Total Protein 7.2 g/dL (6.5-8.0)
== END 2020-07-10 09:23 | disposition home or self-care (01) ==
LOC: HO.LAB 09:22
PROVIDERS: PCP Internal Medicine; Visit Provider Internal Medicine Gastroenterology
DX: K50.111 Crohn's disease of large intestine with rectal bleeding (principal); K52.9 Noninfective gastroenteritis and colitis, unspecified
CPT/HCPCS: 36415; 80053; 80280; 82542; 84999; 85025; 86140

== ENCOUNTER 2020-07-19 10:24 | Outpatient (REF) | payer MEDICARE, MEDICAID, SELFPAY ==
[2020-07-19 11:11] LABS: MANUAL DIFF FLAG NO
[2020-07-19 11:32] LABS: Basophils Percent Auto 0.2 % (0-2); Eosinophils Percent Auto 0.1 % (0-4); Hematocrit 40.7 % (42-52); Hemoglobin 12.7 g/dl (14.0-18.0); Imm Gran Abs Auto 0.07 X10*3/uL (0.00-0.03); Imm Gran Pct Auto 0.5 % (0.0-0.4); Lymphocytes Absolute Auto 1.3 X10*3/uL (1.2-4.9); Lymphocytes Percent Auto 8.3 % (20-40); Mean Corpuscular HGB Conc 31.2 g/dl (31.0-36.0); Mean Corpuscular Hemoglobin 29.1 pg (27.0-33.0); Mean Corpuscular Volume 93.1 fL (80-98); Mean Platelet Volume 9.8 fL (9.4-12.4); Monocytes Absolute Auto 0.9 X10*3/uL (0.1-1.2); Monocytes Percent Auto 6.1 % (2-11); Neutrophils Absolute Auto 12.7 X10*3/uL (2.0-8.3); Neutrophils Percent Auto 84.8 % (45-73); Platelet Count 433 X10*3/uL (160-400); Red Blood Count 4.37 X10*6/uL (4.60-5.80); Red Cell Distribution Width 13.2 % (11.0-16.0)
[2020-07-19 11:49] LABS: Alanine Aminotransferase 22 U/L (0-40); Albumin Level 3.5 g/dL (3.5-5.0); Alkaline Phosphatase 65 U/L (39-117); Anion Gap 14 (12-20); Aspartate Amino Transferase 11 U/L (5-37); Bilirubin Total 0.4 mg/dL (0.0-1.0); Blood Urea Nitrogen 14 mg/dL (9-16); C Reactive Protein 2.82 mg/dL (< or = 0.50); Carbon Dioxide 29 mmol/L (22-29); Chloride 98 mmol/L (96-108); Estimated Glomerular Filt Rate > 60; Glucose Random 318 mg/dL (60-115); Potassium 4.1 mmol/L (3.3-5.1); Sodium 137 mmol/L (135-145); Total Protein 6.9 g/dL (6.5-8.0)
== END 2020-07-19 10:25 | disposition home or self-care (01) ==
LOC: HO.LAB 10:24
PROVIDERS: PCP Internal Medicine; Visit Provider Internal Medicine Gastroenterology
DX: K52.9 Noninfective gastroenteritis and colitis, unspecified (principal); K50.111 Crohn's disease of large intestine with rectal bleeding
CPT/HCPCS: 36415; 80053; 85025; 86140

== ENCOUNTER 2020-07-26 10:01 | Outpatient (REF) | payer MEDICARE, MEDICAID, SELFPAY ==
[2020-07-26 10:40] LABS: Hematocrit 41.5 % (42-52); Hemoglobin 13.3 g/dl (14.0-18.0); Mean Corpuscular Hemoglobin 29.2 pg (27.0-33.0); Mean Platelet Volume 8.7 fL (9.4-12.4); Platelet Count 493 X10*3/uL (160-400); Red Blood Count 4.56 X10*6/uL (4.60-5.80); Red Cell Distribution Width 13.3 % (11.0-16.0); White Blood Count 8.8 X10*3/uL (4.8-10.8)
[2020-07-26 11:10] LABS: Alanine Aminotransferase 63 U/L (0-40); Albumin Level 3.6 g/dL (3.5-5.0); Alkaline Phosphatase 78 U/L (39-117); Anion Gap 14 (12-20); Aspartate Amino Transferase 37 U/L (5-37); Bilirubin Total 0.6 mg/dL (0.0-1.0); Blood Urea Nitrogen 15 mg/dL (9-16); C Reactive Protein 5.92 mg/dL (< or = 0.50); Calcium 9.2 mg/dL (8.4-10.2); Carbon Dioxide 27 mmol/L (22-29); Chloride 97 mmol/L (96-108); Estimated Glomerular Filt Rate > 60; Glucose Random 227 mg/dL (60-115); Potassium 4.8 mmol/L (3.3-5.1); Sodium 133 mmol/L (135-145); Total Protein 7.2 g/dL (6.5-8.0)
[2020-07-26 11:13] LABS: Band Neutrophils Percent 18 % (3-5); Eosinophils Absolute Manual 0.2 X10*3/UL (0.0-0.8); Eosinophils Percent Manual 2 % (0-4); Lymphocytes Absolute Manual 0.8 X10*3/uL (0.6-4.8); Lymphocytes Percent Manual 9 % (20-40); Monocytes Absolute Manual 0.8 X10*3/uL (0.0-1.2); Monocytes Percent Manual 9 % (2-11); Neutrophils Percent Manual 62 % (45-73)
[2020-07-26 11:14] LABS: Platelet Estimate NORMAL (NORMAL); Platelet Morphology Comment NORMAL; RBC Morphology NORMAL
== END 2020-07-26 10:02 | disposition home or self-care (01) ==
LOC: HO.LAB 10:01
PROVIDERS: PCP Internal Medicine; Visit Provider Internal Medicine Gastroenterology
DX: K50.111 Crohn's disease of large intestine with rectal bleeding (principal); K52.9 Noninfective gastroenteritis and colitis, unspecified
CPT/HCPCS: 36415; 80053; 85007; 85027; 86140

== ENCOUNTER 2020-08-03 09:06 | Outpatient (REF) | payer MEDICARE, MEDICAID, SELFPAY ==
[2020-08-03 10:02] LABS: Hematocrit 38.3 % (42-52); Hemoglobin 12.4 g/dl (14.0-18.0); Mean Corpuscular HGB Conc 32.4 g/dl (31.0-36.0); Mean Corpuscular Volume 89.5 fL (80-98); Mean Platelet Volume 8.7 fL (9.4-12.4); Platelet Count 566 X10*3/uL (160-400); Red Blood Count 4.28 X10*6/uL (4.60-5.80); White Blood Count 8.7 X10*3/uL (4.8-10.8)
[2020-08-03 10:28] LABS: Alanine Aminotransferase 31 U/L (0-40); Albumin Level 3.6 g/dL (3.5-5.0); Alkaline Phosphatase 67 U/L (39-117); Anion Gap 17 (12-20); Aspartate Amino Transferase 13 U/L (5-37); Bilirubin Total 0.5 mg/dL (0.0-1.0); Blood Urea Nitrogen 14 mg/dL (9-16); Calcium 9.3 mg/dL (8.4-10.2); Carbon Dioxide 24 mmol/L (22-29); Chloride 97 mmol/L (96-108); Estimated Glomerular Filt Rate 57; Glucose Random 213 mg/dL (60-115); Potassium 4.6 mmol/L (3.3-5.1); Sodium 133 mmol/L (135-145); Total Protein 7.2 g/dL (6.5-8.0)
[2020-08-03 11:10] LABS: Band Neutrophils Percent 13 % (3-5); Lymphocytes Absolute Manual 0.8 X10*3/uL (0.6-4.8); Lymphocytes Percent Manual 9 % (20-40); Monocytes Absolute Manual 0.3 X10*3/uL (0.0-1.2); Monocytes Percent Manual 3 % (2-11); Neutrophils Absolute Manual 7.7 X10*3/uL (2.2-7.9); Neutrophils Percent Manual 75 % (45-73)
[2020-08-03 11:12] LABS: Platelet Estimate INCREASED (NORMAL); Platelet Morphology Comment NORMAL; RBC Morphology NORMAL
== END 2020-08-03 09:07 | disposition home or self-care (01) ==
LOC: HO.LAB 09:06
PROVIDERS: PCP Internal Medicine; Visit Provider Internal Medicine Gastroenterology
DX: K50.111 Crohn's disease of large intestine with rectal bleeding (principal); K52.9 Noninfective gastroenteritis and colitis, unspecified
CPT/HCPCS: 36415; 80053; 85007; 85025; 85027; 86140

== ENCOUNTER 2020-08-09 11:51 | Outpatient (REF) | payer MEDICARE, MEDICAID, SELFPAY ==
[2020-08-09 12:21] LABS: MANUAL DIFF FLAG NO
[2020-08-09 12:27] LABS: Basophils Percent Auto 0.1 % (0-2); Eosinophils Percent Auto 0.1 % (0-4); Hemoglobin 11.6 g/dl (14.0-18.0); Imm Gran Abs Auto 0.14 X10*3/uL (0.00-0.03); Imm Gran Pct Auto 1.1 % (0.0-0.4); Lymphocytes Absolute Auto 1.6 X10*3/uL (1.2-4.9); Lymphocytes Percent Auto 12.5 % (20-40); Mean Corpuscular HGB Conc 31.4 g/dl (31.0-36.0); Mean Corpuscular Hemoglobin 28.8 pg (27.0-33.0); Mean Corpuscular Volume 91.8 fL (80-98); Mean Platelet Volume 8.4 fL (9.4-12.4); Monocytes Absolute Auto 0.5 X10*3/uL (0.1-1.2); Monocytes Percent Auto 3.7 % (2-11); Neutrophils Absolute Auto 10.4 X10*3/uL (2.0-8.3); Neutrophils Percent Auto 82.5 % (45-73); Platelet Count 498 X10*3/uL (160-400); Red Blood Count 4.03 X10*6/uL (4.60-5.80); Red Cell Distribution Width 13.1 % (11.0-16.0); White Blood Count 12.6 X10*3/uL (4.8-10.8)
== END 2020-08-09 11:52 | disposition home or self-care (01) ==
LOC: HO.LAB 11:51
PROVIDERS: Absent Provider Internal Medicine; PCP Internal Medicine; Visit Provider Internal Medicine Gastroenterology
DX: K52.9 Noninfective gastroenteritis and colitis, unspecified (principal); K50.111 Crohn's disease of large intestine with rectal bleeding
CPT/HCPCS: 36415; 85025

== ENCOUNTER 2020-08-16 10:23 | Outpatient (REF) | payer MEDICARE, MEDICAID, SELFPAY ==
[2020-08-16 10:42] LABS: MANUAL DIFF FLAG NO
[2020-08-16 10:45] LABS: Basophils Percent Auto 0.1 % (0-2); Eosinophils Percent Auto 0.1 % (0-4); Hematocrit 38.2 % (42-52); Imm Gran Abs Auto 0.06 X10*3/uL (0.00-0.03); Imm Gran Pct Auto 0.6 % (0.0-0.4); Lymphocytes Absolute Auto 0.9 X10*3/uL (1.2-4.9); Lymphocytes Percent Auto 8.6 % (20-40); Mean Corpuscular HGB Conc 31.4 g/dl (31.0-36.0); Mean Corpuscular Hemoglobin 29.2 pg (27.0-33.0); Mean Corpuscular Volume 92.9 fL (80-98); Mean Platelet Volume 8.4 fL (9.4-12.4); Monocytes Absolute Auto 0.4 X10*3/uL (0.1-1.2); Monocytes Percent Auto 3.6 % (2-11); Neutrophils Absolute Auto 9.3 X10*3/uL (2.0-8.3); Platelet Count 507 X10*3/uL (160-400); Red Blood Count 4.11 X10*6/uL (4.60-5.80); Red Cell Distribution Width 13.6 % (11.0-16.0); White Blood Count 10.7 X10*3/uL (4.8-10.8)
== END 2020-08-16 10:24 | disposition home or self-care (01) ==
LOC: HO.LAB 10:23
PROVIDERS: PCP Internal Medicine; Visit Provider Internal Medicine Gastroenterology
DX: K50.111 Crohn's disease of large intestine with rectal bleeding (principal); K52.9 Noninfective gastroenteritis and colitis, unspecified
CPT/HCPCS: 36415; 85025

== ENCOUNTER → 2020-08-18 09:08 | Outpatient (BNVA) | payer MEDICARE, MEDICAID, SELFPAY | PROVIDERS: PCP Internal Medicine; Visit Provider Internal Medicine Gastroenterology | DX: K50.111 Crohn's disease of large intestine with rectal bleeding (principal); K52.9 Noninfective gastroenteritis and colitis, unspecified; R10.9 Unspecified abdominal pain | CPT/HCPCS: Q3014 ==

== ENCOUNTER 2020-08-23 10:36 | Outpatient (REF) | payer MEDICARE, MEDICAID, SELFPAY ==
[2020-08-23 11:16] LABS: MANUAL DIFF FLAG NO
[2020-08-23 11:21] LABS: Basophils Percent Auto 0.1 % (0-2); Eosinophils Percent Auto 0.1 % (0-4); Hematocrit 38.8 % (42-52); Hemoglobin 12.4 g/dl (14.0-18.0); Imm Gran Abs Auto 0.04 X10*3/uL (0.00-0.03); Imm Gran Pct Auto 0.4 % (0.0-0.4); Lymphocytes Absolute Auto 1.2 X10*3/uL (1.2-4.9); Lymphocytes Percent Auto 11.4 % (20-40); Mean Corpuscular Hemoglobin 29.2 pg (27.0-33.0); Mean Corpuscular Volume 91.3 fL (80-98); Mean Platelet Volume 8.6 fL (9.4-12.4); Monocytes Absolute Auto 0.7 X10*3/uL (0.1-1.2); Monocytes Percent Auto 6.7 % (2-11); Neutrophils Absolute Auto 8.3 X10*3/uL (2.0-8.3); Neutrophils Percent Auto 81.3 % (45-73); Platelet Count 478 X10*3/uL (160-400); Red Blood Count 4.25 X10*6/uL (4.60-5.80); Red Cell Distribution Width 14.1 % (11.0-16.0); White Blood Count 10.3 X10*3/uL (4.8-10.8)
[2020-08-23 11:33] LABS: Prothrombin Time 12.2 SEC (10.8-13.0)
[2020-08-23 11:57] LABS: Alanine Aminotransferase 20 U/L (0-40); Albumin Level 3.7 g/dL (3.5-5.0); Alkaline Phosphatase 73 U/L (39-117); Anion Gap 12 (12-20); Aspartate Amino Transferase 12 U/L (5-37); Bilirubin Total 0.6 mg/dL (0.0-1.0); Blood Urea Nitrogen 18 mg/dL (9-16); C Reactive Protein 1.83 mg/dL (< or = 0.50); Calcium 8.9 mg/dL (8.4-10.2); Carbon Dioxide 28 mmol/L (22-29); Chloride 99 mmol/L (96-108); Estimated Glomerular Filt Rate > 60; Glucose Random 233 mg/dL (60-115); Potassium 4.2 mmol/L (3.3-5.1); Sodium 135 mmol/L (135-145); Total Protein 6.6 g/dL (6.5-8.0)
== END 2020-08-23 10:37 | disposition home or self-care (01) ==
LOC: HO.LAB 10:36
PROVIDERS: PCP Internal Medicine; Visit Provider Internal Medicine Gastroenterology
DX: K50.111 Crohn's disease of large intestine with rectal bleeding (principal)
CPT/HCPCS: 36415; 80053; 85025; 85610; 86140

== ENCOUNTER 2020-09-04 10:19 | Outpatient (REF) | payer MEDICARE, MEDICAID, SELFPAY ==
[2020-09-04 10:42] LABS: MANUAL DIFF FLAG NO
[2020-09-04 10:48] LABS: Eosinophils Percent Auto 0.2 % (0-4); Hematocrit 38.6 % (42-52); Hemoglobin 11.9 g/dl (14.0-18.0); Lymphocytes Absolute Auto 1.3 X10*3/uL (1.2-4.9); Lymphocytes Percent Auto 12.6 % (20-40); Mean Corpuscular HGB Conc 30.8 g/dl (31.0-36.0); Mean Corpuscular Hemoglobin 28.8 pg (27.0-33.0); Mean Corpuscular Volume 93.5 fL (80-98); Mean Platelet Volume 8.6 fL (9.4-12.4); Monocytes Absolute Auto 0.3 X10*3/uL (0.1-1.2); Monocytes Percent Auto 3.4 % (2-11); Neutrophils Absolute Auto 8.3 X10*3/uL (2.0-8.3); Neutrophils Percent Auto 82.8 % (45-73); Platelet Count 387 X10*3/uL (160-400); Red Blood Count 4.13 X10*6/uL (4.60-5.80); Red Cell Distribution Width 14.2 % (11.0-16.0)
[2020-09-04 11:53] LABS: Alanine Aminotransferase 24 U/L (0-40); Albumin Level 3.4 g/dL (3.5-5.0); Alkaline Phosphatase 69 U/L (39-117); Anion Gap 13 (12-20); Aspartate Amino Transferase 14 U/L (5-37); Bilirubin Total 0.4 mg/dL (0.0-1.0); Blood Urea Nitrogen 22 mg/dL (9-16); C Reactive Protein 2.22 mg/dL (< or = 0.50); Calcium 8.3 mg/dL (8.4-10.2); Carbon Dioxide 25 mmol/L (22-29); Chloride 105 mmol/L (96-108); Estimated Glomerular Filt Rate > 60; Glucose Random 243 mg/dL (60-115); Potassium 4.2 mmol/L (3.3-5.1); Sodium 139 mmol/L (135-145); Total Protein 6.2 g/dL (6.5-8.0)
== END 2020-09-04 10:20 | disposition home or self-care (01) ==
LOC: HO.LAB 10:19
PROVIDERS: PCP Internal Medicine; Visit Provider Internal Medicine Gastroenterology
DX: K52.9 Noninfective gastroenteritis and colitis, unspecified (principal); K50.111 Crohn's disease of large intestine with rectal bleeding
CPT/HCPCS: 36415; 80053; 85025; 86140

== ENCOUNTER 2020-09-07 11:15 | Outpatient (REF) | payer MEDICARE, MEDICAID, SELFPAY ==
[2020-09-07 12:04] LABS: MANUAL DIFF FLAG NO
[2020-09-07 12:25] LABS: Basophils Percent Auto 0.1 % (0-2); Hematocrit 40.4 % (42-52); Hemoglobin 12.5 g/dl (14.0-18.0); Lymphocytes Absolute Auto 1.3 X10*3/uL (1.2-4.9); Lymphocytes Percent Auto 12.6 % (20-40); Mean Corpuscular HGB Conc 30.9 g/dl (31.0-36.0); Mean Corpuscular Hemoglobin 28.5 pg (27.0-33.0); Mean Corpuscular Volume 92.2 fL (80-98); Mean Platelet Volume 8.7 fL (9.4-12.4); Monocytes Absolute Auto 0.4 X10*3/uL (0.1-1.2); Monocytes Percent Auto 4.2 % (2-11); Neutrophils Absolute Auto 8.4 X10*3/uL (2.0-8.3); Neutrophils Percent Auto 82.1 % (45-73); Platelet Count 418 X10*3/uL (160-400); Red Blood Count 4.38 X10*6/uL (4.60-5.80); Red Cell Distribution Width 14.1 % (11.0-16.0); White Blood Count 10.2 X10*3/uL (4.8-10.8)
[2020-09-07 12:43] LABS: Alanine Aminotransferase 27 U/L (0-40); Albumin Level 3.6 g/dL (3.5-5.0); Alkaline Phosphatase 65 U/L (39-117); Anion Gap 14 (12-20); Aspartate Amino Transferase 16 U/L (5-37); Bilirubin Total 0.3 mg/dL (0.0-1.0); Blood Urea Nitrogen 21 mg/dL (9-16); C Reactive Protein 5.64 mg/dL (< or = 0.50); Calcium 8.9 mg/dL (8.4-10.2); Carbon Dioxide 28 mmol/L (22-29); Chloride 98 mmol/L (96-108); Estimated Glomerular Filt Rate 58; Glucose Random 278 mg/dL (60-115); Potassium 4.7 mmol/L (3.3-5.1); Sodium 135 mmol/L (135-145); Total Protein 6.5 g/dL (6.5-8.0)
== END 2020-09-07 11:16 | disposition home or self-care (01) ==
LOC: HO.LABR 11:15
PROVIDERS: PCP Internal Medicine; Visit Provider Internal Medicine Gastroenterology
DX: K50.111 Crohn's disease of large intestine with rectal bleeding (principal); K52.9 Noninfective gastroenteritis and colitis, unspecified
CPT/HCPCS: 36415; 80053; 85025; 86140

== ENCOUNTER 2020-09-14 11:29 | Outpatient (REF) | payer MEDICARE, MEDICAID, SELFPAY ==
[2020-09-14 11:57] LABS: MANUAL DIFF FLAG NO
[2020-09-14 12:04] LABS: Basophils Percent Auto 0.1 % (0-2); Hematocrit 36.8 % (42-52); Hemoglobin 11.4 g/dl (14.0-18.0); Imm Gran Abs Auto 0.06 X10*3/uL (0.00-0.03); Imm Gran Pct Auto 0.7 % (0.0-0.4); Lymphocytes Absolute Auto 1.4 X10*3/uL (1.2-4.9); Lymphocytes Percent Auto 16.4 % (20-40); Mean Corpuscular Hemoglobin 28.5 pg (27.0-33.0); Mean Platelet Volume 8.4 fL (9.4-12.4); Monocytes Absolute Auto 0.3 X10*3/uL (0.1-1.2); Monocytes Percent Auto 3.3 % (2-11); Neutrophils Absolute Auto 6.9 X10*3/uL (2.0-8.3); Neutrophils Percent Auto 79.5 % (45-73); Platelet Count 477 X10*3/uL (160-400); Red Cell Distribution Width 14.6 % (11.0-16.0); White Blood Count 8.7 X10*3/uL (4.8-10.8)
[2020-09-14 12:40] LABS: Alanine Aminotransferase 27 U/L (0-40); Albumin Level 3.4 g/dL (3.5-5.0); Alkaline Phosphatase 70 U/L (39-117); Anion Gap 14 (12-20); Aspartate Amino Transferase 15 U/L (5-37); Bilirubin Total 0.3 mg/dL (0.0-1.0); Blood Urea Nitrogen 17 mg/dL (9-16); C Reactive Protein 5.08 mg/dL (< or = 0.50); Calcium 8.7 mg/dL (8.4-10.2); Carbon Dioxide 26 mmol/L (22-29); Chloride 100 mmol/L (96-108); Estimated Glomerular Filt Rate > 60; Potassium 4.7 mmol/L (3.3-5.1); Sodium 135 mmol/L (135-145); Total Protein 6.2 g/dL (6.5-8.0)
[2020-09-14 13:00] LABS: Glucose Random 364 mg/dL (60-115)
== END 2020-09-14 11:30 | disposition home or self-care (01) ==
LOC: HO.LABR 11:29
PROVIDERS: PCP Internal Medicine; Visit Provider Internal Medicine Gastroenterology
DX: K50.111 Crohn's disease of large intestine with rectal bleeding (principal); K52.9 Noninfective gastroenteritis and colitis, unspecified
CPT/HCPCS: 36415; 80053; 85025; 86140

== ENCOUNTER 2020-10-06 08:49 | Outpatient (REF) | payer MEDICARE, MEDICAID, SELFPAY ==
[2020-10-06 09:50] LABS: MANUAL DIFF FLAG NO
[2020-10-06 09:59] LABS: Basophils Percent Auto 0.3 % (0-2); Eosinophils Percent Auto 0.6 % (0-4); Hematocrit 36.5 % (42-52); Imm Gran Abs Auto 0.03 X10*3/uL (0.00-0.03); Imm Gran Pct Auto 0.4 % (0.0-0.4); Lymphocytes Absolute Auto 1.7 X10*3/uL (1.2-4.9); Lymphocytes Percent Auto 24.9 % (20-40); Mean Corpuscular HGB Conc 30.1 g/dl (31.0-36.0); Mean Corpuscular Hemoglobin 28.2 pg (27.0-33.0); Mean Corpuscular Volume 93.6 fL (80-98); Mean Platelet Volume 8.7 fL (9.4-12.4); Monocytes Absolute Auto 0.5 X10*3/uL (0.1-1.2); Monocytes Percent Auto 6.9 % (2-11); Neutrophils Absolute Auto 4.6 X10*3/uL (2.0-8.3); Neutrophils Percent Auto 66.9 % (45-73); Platelet Count 562 X10*3/uL (160-400); Red Cell Distribution Width 14.9 % (11.0-16.0); White Blood Count 6.8 X10*3/uL (4.8-10.8)
[2020-10-06 10:23] LABS: Alanine Aminotransferase 11 U/L (0-40); Albumin Level 3.7 g/dL (3.5-5.0); Alkaline Phosphatase 56 U/L (39-117); Anion Gap 15 (12-20); Aspartate Amino Transferase 13 U/L (5-37); Bilirubin Total 0.3 mg/dL (0.0-1.0); Blood Urea Nitrogen 10 mg/dL (9-16); C Reactive Protein 2.75 mg/dL (< or = 0.50); Calcium 9.1 mg/dL (8.4-10.2); Carbon Dioxide 26 mmol/L (22-29); Chloride 107 mmol/L (96-108); Estimated Glomerular Filt Rate > 60; Glucose Random 129 mg/dL (60-115); Potassium 4.1 mmol/L (3.3-5.1); Sodium 144 mmol/L (135-145); Total Protein 6.8 g/dL (6.5-8.0)
[2020-10-06 13:37] LABS: CDIFF Ag Negative (Negative); CDIFF Internal ctrl Dots and bkg OK (V); CDiff Toxin Negative (Negative)
[2020-10-14 00:47] LABS: Calprotectin, Fecal 2080 mcg/g
== END 2020-10-06 08:50 | disposition home or self-care (01) ==
LOC: HO.LAB 08:49
PROVIDERS: PCP Internal Medicine; Visit Provider Internal Medicine Gastroenterology
DX: R19.7 Diarrhea, unspecified (principal); K52.9 Noninfective gastroenteritis and colitis, unspecified; K50.111 Crohn's disease of large intestine with rectal bleeding
CPT/HCPCS: 36415; 80053; 83993; 85025; 86140; 87324; 87449

== ENCOUNTER 2020-12-04 09:25 | Outpatient (REF) | payer MEDICARE, MEDICAID, SELFPAY | END 2020-12-04 09:26 | disposition home or self-care (01) | LOC: HO.LAB 09:25 | PROVIDERS: Visit Provider Internal Medicine | DX: Z20.822 Contact with and (suspected) exposure to COVID-19 (principal) | CPT/HCPCS: C9803; U0003; U0005 ==

== ENCOUNTER 2021-02-10 06:15 | Emergency (ER) | payer MEDICARE, MEDICAID, SELFPAY ==
--- NOTE | ~2021-02-10 | US_ITS ---
EXAMINATION: US VENOUS ULTRASOUND WITH DOPPLER LOWER EXTREMITY, RIGHT CLINICAL INFORMATION: Pain and swelling COMPARISON: None TECHNIQUE: Ultrasound of the deep veins is performed from the hip to the calf with compression sonography and color and pulse Doppler assessment. Spectral analysis with color-flow imaging is performed. FINDINGS: There is normal venous compression and respiratory variation and augmented flow. The visualized common femoral vein, superficial femoral vein, profunda femoral vein, popliteal vein, and the trifurcation region shows no evidence of deep venous thrombosis. There is no significant popliteal fossa cyst. If the patient's symptoms persist, followup ultrasound in 5 days 7 days might be of value to exclude proximal propagation from a non-visualized calf vein. US/US venous duplex LE RT IMPRESSION: No DVT demonstrated in the right lower extremity.
--- NOTE | ~2021-02-10 | XR_ITS ---
XR/XR foot RT min 3V IMPRESSION: No acute fracture or dislocation. EXAMINATION: XR FOOT, RIGHT CLINICAL INFORMATION: Redness and swelling COMPARISON: Previous x-ray June 2017 TECHNIQUE: AP, lateral, and oblique views of the right foot. FINDINGS: No acute fracture or dislocation is seen. There is an old healed fracture of the proximal phalanx of the third toe. There is mild arthritis at the first IP joint and first MTP joint. There are small calcaneal spurs.
[2021-02-10 06:18] VITALS: BP 106/76; PULSE 102; RESP 18; TEMP 36.6; O2SAT 100
--- NOTE | 2021-02-10 06:45 | PC.NURSE ---
pt is a&o , no sob or chest pain. pt report his leg started hurting yesterday. positive cms and pedal pulses, area marked with pen to assess redness.
--- NOTE | 2021-02-10 07:08 | ECG_ITS ---
Test Reason : WEAKNESS Blood Pressure : / mmHG Vent. Rate : 085 BPM Atrial Rate : 085 BPM P-R Int : 120 ms QRS Dur : 122 ms QT Int : 374 ms P-R-T Axes : 021 001 035 degrees QTc Int : 445 ms Normal sinus rhythm RSR' or QR pattern in V1 suggests right ventricular conduction delay Borderline ECG When compared with ECG of 07-OCT-2016 20:39, RSR' or QR pattern in V1 suggests right ventricular conduction delay Referred By: Kimberley Noel Electronically Signed By:RUPAL MAURO
--- NOTE | 2021-02-10 07:09 | ED_ITS ---
HPI - Extremity Problem General Chief complaint: Extremity Problem Stated complaint: foot pain Time Seen by Provider: 02/10/21 07:08 Source: patient Mode of arrival: other (Cane) History of Present Illness HPI Narrative: 60-year-old male with history of chronic diarrhea and diabetes presents with acute onset of right foot redness, swelling, pain on weight- bearing for 2 days without associated fever, chills, new GI symptoms, shortness of breath, chest pain, or symptoms. Related Data Home Medications Medication Instructions Recorded Confirmed albuterol sulfate 90 mcg/actuation INHALATION 03/22/20 08/18/20 aerosol inhaler albuterol sulfate 90 mcg/actuation INHALATION 03/22/20 08/18/20 aerosol inhaler (Ventolin HFA) budesonide-formoterol HFA 160 INHALATION 03/22/20 04/26/20 mcg-4.5 mcg/actuation aerosol inhaler (Symbicort) glyburide 5 mg tablet mg PO 03/22/20 08/18/20 hydrocortisone acetate 25 mg 25 mg NH BID 03/22/20 08/18/20 rectal suppository (Anusol-HC) lisinopril 5 mg tablet 5 mg PO 03/22/20 08/18/20 mirtazapine 30 mg tablet mg PO 03/22/20 08/18/20 amlodipine 5 mg tablet 5 mg PO DAILY 03/23/20 08/18/20 hydroxyzine HCl 50 mg tablet 50 mg PO BID 04/26/20 08/18/20 melatonin 5 mg tablet 5 mg PO BEDTIME PRN 04/26/20 08/18/20 tofacitinib 10 mg tablet (Xeljanz) 10 mg PO Q12H 08/18/20 08/18/20 Previous Rx's Medication Instructions Recorded prednisone 10 mg tablet See Rx Instructions PO BID 30 Days 07/06/20 #90 tab sucralfate 1 gram tablet 1 g PO BID #180 tab 10/20/20 tapentadol 50 mg tablet,extended 50 mg PO BID 30 Days #60 tab 01/08/21 release,12 hr (Nucynta ER) mesalamine 4 gram/60 mL enema 4 g NH BEDTIME 30 Days #1800 ml 01/17/21 (Rowasa) cephalexin 500 mg capsule 500 mg PO Q12H 7 Days #14 cap 02/10/21 doxycycline hyclate 100 mg capsule 100 mg PO BID 7 Days #14 cap 02/10/21 Allergies Allergy/AdvReac Type Severity Reaction Status Date / Time No Known Allergies Allergy Verified 02/10/21 06:18 [No Known Allergies*] none Allergy Unknown Unknown Uncoded 07/03/20 16:20 Review of Systems Review of Systems: Pertinent positives and negatives as stated in HPI 10 point review systems is otherwise negative. [facility] Past Medical History Source: nursing notes reviewed Medical History Acute promyelocytic leukemia Anxiety Asthma Chronic cholecystitis Chronic idiopathic constipation Colitis Crohn disease Depression Diabetes 1.5, managed as type 1 Elevated serum glutamic pyruvic transaminase (SGPT) level H/O flexible sigmoidoscopy Hypertension Kidney disease Left sided abdominal pain Renal stones Thalamic pain syndrome (hyperesthetic) Tubular adenoma of colon Surgical History H/O lithotripsy H/O rectal sphincterotomy History of cholecystectomy History of colonoscopy History of hemorrhoidectomy Social History Social History Household Members: Children Housing: Apartment Alcohol intake: never Patient Tobacco Use Status: Never used Tobacco Use of substances other than those prescribed or required for medical reasons: No Advance Directives: No Advance Directives Information Provided: Yes service: No Current occupational status: disabled Physical Exam Vital Signs: Vital Signs: Last Vital Signs Temp 97.8 F 02/10/21 10:02 Pulse 99 02/10/21 10:22 Resp 16 02/10/21 10:22 BP 111/54 L 02/10/21 10:22 Pulse Ox 96 02/10/21 10:22 Body Mass Index 0.2 VITAL SIGNS: Reviewed. GENERAL: Well developed, well nourished, in no acute distress. HEAD: Normocephalic/atraumatic EYES: PERRLA, EOMI OROPHARYNX: no oral lesions noted, posterior pharynx clear LUNGS: Normal breath sounds. No adventitious sounds or accessory muscle use. SpO2<100> CARDIOVASCULAR: Regular rate and rhythm without noted murmurs, no JVD or lower extremity edema. ABDOMEN: Soft, non-tender, non-distended with bowel sounds. RIGHT LOWER EXTREMITY: No deformity, erythema noted from entire foot to distal lower leg with 3+ pitting edema, capillary refill less than 3 seconds, no ulcerations/injury noted to the foot SKIN: Inspection of the skin reveals no rashes NEUROLOGIC: Alert and oriented x 4. Strength and sensation to light touch were grossly intact x 4. Course Course Course Narrative: 60-year-old male with history and clinical presentation suggestive right lower extremity cellulitis, possible DVT. On review of all investigations there are no acute findings to suggest CHF exac erbation, patient received a dose of antibiotics, venous duplex. On re-evaluation patient states that he feels much better, the foot is less painful, and review of the ultrasound is negative for evidence of DVT. Patient is otherwise hemodynamically stable for discharge to home with course of antib iotics and express follow-up with his primary care provider. MDM - Extremity (Nontraumatic) Lab Data Result diagrams: 02/10/21 07:39 02/10/21 07:39 Labs: Lab Results 02/10/21 02/10/21 02/10/21 Range/Units 07:39 07:39 07:39 WBC 11.0 H (4.8-10.8) X10*3/uL RBC 3.53 L (4.60-5.80) X10*6/uL Hgb 9.5 L (14.0-18.0) g/dl Hct 31.1 L (42-52) % MCV 88.1 (80-98) fL MCH 26.9 L (27.0-33.0) pg MCHC 30.5 L (31.0-36.0) g/dl RDW 18.2 H (11.0-16.0) % Plt Count 486 H (160-400) X10*3/uL MPV 8.5 L (9.4-12.4) fL Immature Gran % (Auto) 0.7 H (0.0-0.4) % Neut % (Auto) 86.9 H (45-73) % Lymph % (Auto) 5.9 L (20-40) % [place] % (Auto) 6.0 (2-11) % Eos % (Auto) 0.4 (0-4) % Baso % (Auto) 0.1 (0-2) % Lymph # (Auto) 0.7 L (1.2-4.9) X10*3/uL [place] # (Auto) 0.7 (0.1-1.2) X10*3/uL Eos # (Auto) 0.0 (0.0-0.4) X10*3/uL Baso # (Auto) 0.0 (0.0-0.2) X10*3/uL Abs Immat Gran (auto) 0.08 H (0.00-0.03) X10*3/uL Absolute Neuts (auto) 9.6 H (2.0-8.3) X10*3/uL Absolute Nucleated RBC 0.000 (0.0-0.012) X10*3/uL Nucleated RBC % (auto) 0.0 (0.0-0.2) /100WBC Sodium 137 (135-145) mmol/L Potassium 4.3 (3.3-5.1) mmol/L Chloride 105 (96-108) mmol/L Carbon Dioxide 24 (22-29) mmol/L Anion Gap 12 (12-20) BUN 18 H D (9-16) mg/dL Creatinine 0.78 (0.5-1.4) mg/dL Estim Creat Clear Calc 139.8 Estimated GFR > 60 Random Glucose 160 H (60-115) mg/dL Lactic Acid (0.5-2.0) mmol/L Calcium 8.2 L D (8.4-10.2) mg/dL Total Bilirubin 0.3 (0.0-1.0) mg/dL AST 10 (5-37) U/L ALT 14 (0-40) U/L Alkaline Phosphatase 60 (39-117) U/L B-Natriuretic Peptide < 10 (<100) pg/mL Total Protein 5.5 L (6.5-8.0) g/dL Albumin 3.2 L (3.5-5.0) g/dL Urine Color Urine Appearance Urine pH (5.0-8.0) Ur Specific [place] (1.005-1.025) Urine Protein (NEG-TRACE) MG/DL Urine Glucose (UA) (NEG) MG/DL Urine Ketones (NEG) MG/DL Urine Blood (NEG) Urine Nitrite (NEG) Ur Leukocyte Esterase (NEG) 02/10/21 02/10/21 Range/Units 07:39 10:49 WBC (4.8-10.8) X10*3/uL RBC (4.60-5.80) X10*6/uL Hgb (14.0-18.0) g/dl Hct (42-52) % MCV (80-98) fL MCH (27.0-33.0) pg MCHC (31.0-36.0) g/dl RDW (11.0-16.0) % Plt Count (160-400) X10*3/uL MPV (9.4-12.4) fL Immature Gran % (Auto) (0.0-0.4) % Neut % (Auto) (45-73) % Lymph % (Auto) (20-40) % [place] % (Auto) (2-11) % Eos % (Auto) (0-4) % Baso % (Auto) (0-2) % Lymph # (Auto) (1.2-4.9) X10*3/uL [place] # (Auto) (0.1-1.2) X10*3/uL Eos # (Auto) (0.0-0.4) X10*3/uL Baso # (Auto) (0.0-0.2) X10*3/uL Abs Immat Gran (auto) (0.00-0.03) X10*3/uL Absolute Neuts (auto) (2.0-8.3) X10*3/uL Absolute Nucleated RBC (0.0-0.012) X10*3/uL Nucleated RBC % (auto) (0.0-0.2) /100WBC Sodium (135-145) mmol/L Potassium (3.3-5.1) mmol/L Chloride (96-108) mmol/L Carbon Dioxide (22-29) mmol/L Anion Gap (12-20) BUN (9-16) mg/dL Creatinine (0.5-1.4) mg/dL Estim Creat Clear Calc Estimated GFR Random Glucose (60-115) mg/dL Lactic Acid 1.3 (0.5-2.0) mmol/L Calcium (8.4-10.2) mg/dL Total Bilirubin (0.0-1.0) mg/dL AST (5-37) U/L ALT (0-40) U/L Alkaline Phosphatase (39-117) U/L B-Natriuretic Peptide (<100) pg/mL Total Protein (6.5-8.0) g/dL Albumin (3.5-5.0) g/dL Urine Color YELLOW Urine Appearance CLEAR Urine pH 6.0 (5.0-8.0) Ur Specific [place] 1.020 (1.005-1.025) Urine Protein NEG (NEG-TRACE) MG/DL Urine Glucose (UA) NEG (NEG) MG/DL Urine Ketones NEG (NEG) MG/DL Urine Blood NEG (NEG) Urine Nitrite NEG (NEG) Ur Leukocyte Esterase NEG (NEG) ECG Data Attestation EKG: I personally reviewed and interpreted this ECG as follows: Prior ECG tracings: available for review (10/07/2016 no acute changes on comparison) Interpretation: Normal sinus rhythm, HR-85, no STEMI, NH/QTC are within normal limits. Discharge Plan Discharge Clinical Impression: Cellulitis Patient Disposition: Home, Self-Care Instructions: Cellulitis (ED) Additional Instructions: 1. Resume all home medications. 2. Recommend [id number] Tylenol/ibuprofen as needed for pain control. 3. Complete the entire course of your antibiotics. 4. Follow-up with your primary care provider on Friday morning for re- evaluation. Return to the ER for acute worsening of symptoms. Prescriptions: New cephalexin 500 mg capsule 500 mg PO Q12H 7 Days Qty: 14 RF: 0 doxycycline hyclate 100 mg capsule 100 mg PO BID 7 Days Qty: 14 RF: 0 No Action prednisone 10 mg tablet See Rx Instructions PO BID 30 Days Qty: 90 RF: 2 sucralfate 1 gram tablet 1 g PO BID Qty: 180 RF: 1 Nucynta ER 50 mg tablet extended release 12 hr 50 mg PO BID 30 Days Qty: 60 RF: 0 mesalamine [Rowasa] 4 gram/60 mL enema 4 g NH BEDTIME 30 Days Qty: 1800 RF: 4 glyburide 5 mg tablet PO RF: 0 mirtazapine 30 mg tablet PO RF: 0 lisinopril 5 mg tablet 5 mg PO RF: 0 albuterol sulfate 90 mcg/actuation HFA aerosol inhaler inhalation RF: 0 albuterol sulfate [Ventolin HFA] 90 mcg/actuation HFA aerosol inhaler inhalation RF: 0 budesonide-formoterol [Symbicort] 160-4.5 mcg/actuation HFA aerosol inhaler inhalation RF: 0 hydrocortisone acetate [Anusol-HC] 25 mg Suppository 25 mg NH BID RF: 0 amlodipine 5 mg Tablet 5 mg PO DAILY RF: 0 hydroxyzine HCl 50 mg tablet 50 mg PO BID RF: 0 melatonin 5 mg tablet 5 mg PO BEDTIME PRNRF: 0 Xeljanz 10 mg tablet 10 mg PO Q12H RF: 0 Referrals: Physician,Unknown [Primary Care Provider] - 2 days
[2021-02-10 07:45] LABS: MANUAL DIFF FLAG NO
[2021-02-10 07:50] LABS: Basophils Percent Auto 0.1 % (0-2); Eosinophils Percent Auto 0.4 % (0-4); Hematocrit 31.1 % (42-52); Hemoglobin 9.5 g/dl (14.0-18.0); Imm Gran Abs Auto 0.08 X10*3/uL (0.00-0.03); Imm Gran Pct Auto 0.7 % (0.0-0.4); Lymphocytes Absolute Auto 0.7 X10*3/uL (1.2-4.9); Lymphocytes Percent Auto 5.9 % (20-40); Mean Corpuscular HGB Conc 30.5 g/dl (31.0-36.0); Mean Corpuscular Hemoglobin 26.9 pg (27.0-33.0); Mean Corpuscular Volume 88.1 fL (80-98); Mean Platelet Volume 8.5 fL (9.4-12.4); Monocytes Absolute Auto 0.7 X10*3/uL (0.1-1.2); Neutrophils Absolute Auto 9.6 X10*3/uL (2.0-8.3); Neutrophils Percent Auto 86.9 % (45-73); Platelet Count 486 X10*3/uL (160-400); Red Blood Count 3.53 X10*6/uL (4.60-5.80); Red Cell Distribution Width 18.2 % (11.0-16.0)
[2021-02-10 08:00] LABS: Lactic Acid 1.3 mmol/L (0.5-2.0)
[2021-02-10 08:05] LABS: Alanine Aminotransferase 14 U/L (0-40); Albumin Level 3.2 g/dL (3.5-5.0); Alkaline Phosphatase 60 U/L (39-117); Anion Gap 12 (12-20); Aspartate Amino Transferase 10 U/L (5-37); Bilirubin Total 0.3 mg/dL (0.0-1.0); Blood Urea Nitrogen 18 mg/dL (9-16); Calcium 8.2 mg/dL (8.4-10.2); Carbon Dioxide 24 mmol/L (22-29); Chloride 105 mmol/L (96-108); Creatinine Clr Calc Pharmacy 139.8; Estimated Glomerular Filt Rate > 60; Glucose Random 160 mg/dL (60-115); Potassium 4.3 mmol/L (3.3-5.1); Sodium 137 mmol/L (135-145); Total Protein 5.5 g/dL (6.5-8.0)
[2021-02-10 08:06] LABS: COVID-19 Test Negative (Negative)
[2021-02-10 08:10] LABS: B Type Natriuretic Peptide < 10 pg/mL (<100)
[2021-02-10] MEDS: Piperacillin Sodium/Tazobactam 3.375 GM in 0.9 % Sodium Chloride 50 ML IV (08:35)
[2021-02-10 08:43] VITALS: BP 117/69; PULSE 87; RESP 18; TEMP 36.6; O2SAT 96
[2021-02-10 10:02] VITALS: BP 127/67; PULSE 85; RESP 18; TEMP 36.6; O2SAT 98
[2021-02-10 10:22] VITALS: BP 111/54; PULSE 99; RESP 16; O2SAT 96
[2021-02-10 10:57] LABS: Glucose Urine UA NEG (NEG); Leukocyte Esterase Urine NEG (NEG); Nitrite Urine NEG (NEG); Urine Blood NEG (NEG); Urine Ketones NEG (NEG); Urine Protein NEG (NEG-TRACE)
[2021-02-10 11:02] LABS: Appearance Urine CLEAR; Color Urine YELLOW
== END 2021-02-10 11:47 | disposition home or self-care (01) ==
PROVIDERS: Emergency Provider Student in an Organized Health Care Education/Training Program
DX: L03.90 Cellulitis, unspecified (principal); M79.671 Pain in right foot; R60.0 Localized edema; E10.9 Type 1 diabetes mellitus without complications; I10 Essential (primary) hypertension; Z79.899 Other long term (current) drug therapy; Z20.822 Contact with and (suspected) exposure to COVID-19
CPT/HCPCS: 36415; 73630; 80053; 81003; 83605; 83880; 85025; 87040; 87635; 93005; 93971; 96365; 99284; 99285; J2543

== ENCOUNTER 2021-02-14 15:05 | Inpatient (IN) | payer MEDICARE, MEDICAID, SELFPAY ==
[2021-02-14 15:34] VITALS: BP 113/65; BP 118/78; PULSE 109; PULSE 116; RESP 16; TEMP 37.2; O2SAT 99; BMI 27.5
--- NOTE | 2021-02-14 16:10 | ED_ITS ---
HPI - Extremity Injury (Lower) General Chief Complaint: Extremity Injury, Lower Stated Complaint: right foot swelling x7 days Time Seen by Provider: 02/14/21 15:38 Source: patient Mode of arrival: ambulatory History of Present Illness HPI Narrative: 60-year-old male with a past medical history of anxiety, asthma, colitis currently on 40mg of prednisone daily, Crohn's, depression, DM, HTN, kidney disease to the ED complaining of RLE worsening cellulitis/swelling/pain since 02/10/21. 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 Reports worse pain at 5th toe. Denies drainage from area, fever, chills, history blood clots, recent travel, SOB/CP Related Data Home Medications Medication Instructions Recorded Confirmed glyburide 5 mg tablet 5 mg PO BID 03/22/20 02/14/21 lisinopril 5 mg tablet 5 mg PO DAILY 03/22/20 02/14/21 mirtazapine 30 mg tablet 30 mg PO BEDTIME 03/22/20 02/14/21 tofacitinib 10 mg tablet (Xeljanz) 10 mg PO DAILY 08/18/20 02/14/21 folic acid 1 mg tablet 1 tab PO DAILY 02/14/21 02/14/21 hydroxyzine pamoate 50 mg capsule 2 cap PO BEDTIME PRN 02/14/21 02/14/21 melatonin 5 mg tablet 1 tab PO BEDTIME PRN 02/14/21 02/14/21 paroxetine HCl 40 mg tablet 40 mg PO DAILY 02/14/21 02/14/21 prednisone 10 mg tablet 2 tab PO QAM 02/14/21 02/14/21 prednisone 10 mg tablet 10 mg PO BEDTIME 02/14/21 02/14/21 tapentadol 50 mg tablet,extended 50 mg PO DAILY 02/14/21 02/14/21 release,12 hr (Nucynta ER) Previous Rx's Medication Instructions Recorded sucralfate 1 gram tablet 1 g PO BID #180 tab 10/20/20 cephalexin 500 mg capsule 500 mg PO Q12H 7 Days #14 cap 02/10/21 Allergies Allergy/AdvReac Type Severity Reaction Status Date / Time No Known Allergies Allergy Verified 02/10/21 06:18 [No Known Allergies*] none Allergy Unknown Unknown Uncoded 07/03/20 16:20 Review of Systems Review of Systems: Constitutional: No Fever, No Chills, No Fatigue, No [place] se ENT/Mouth: No Ear Pain, No Nasal Congestion, No Sinus Pain, No Hoarseness, No sore throat Eyes: No Eye Pain, No Swelling, No Discharge, No Vision Changes Cardiovascular: No Chest Pain, No SOB, No Dyspnea on Exertion, + Edema, No Palpitations Respiratory: No Cough, No Sputum, No Dyspnea Gastrointestinal: No Nausea, No Vomiting, No Diarrhea, No Abdominal pain Genitourinary: No Dysuria, No Urinary Frequency, No Hematuria,No Urgency, No Flank Pain Musculoskeletal: +joint pain, No Myalgias, No Joint Swelling Skin: + Skin Lesions, No rash Neuro: No Weakness, No Numbness, No Paresthesias, No Dizziness, No Headache Yes all other systems are reviewed and are negative [facility] Past Medical History Attestation statement: The following information was validated with the patient. Medical History Acute promyelocytic leukemia Anxiety Asthma Chronic cholecystitis Chronic idiopathic constipation Colitis Crohn disease Depression Diabetes 1.5, managed as type 1 Elevated serum glutamic pyruvic transaminase (SGPT) level H/O flexible sigmoidoscopy Hypertension Kidney disease Left sided abdominal pain Renal stones Thalamic pain syndrome (hyperesthetic) Tubular adenoma of colon Surgical History H/O lithotripsy H/O rectal sphincterotomy History of cholecystectomy History of colonoscopy History of hemorrhoidectomy Social History Social History Household Members: Children Housing: Apartment Alcohol intake: never Patient Tobacco Use Status: Never used Tobacco Advance Directives: No Advance Directives Information Provided: No service: No Current occupational status: disabled Physical Exam Vital Signs: Vital Signs: Last Vital Signs Temp 98.9 F 02/14/21 16:16 Pulse 105 H 02/14/21 17:49 Resp 16 02/14/21 17:49 BP 111/57 L 02/14/21 17:49 Pulse Ox 98 02/14/21 16:16 Body Mass Index 27.5 Const: General: cooperative, healthy appearing and no acute distress Orientation/consciousness: patient oriented x3 Limitations: no limitations HENMT: Head: Yes normal to inspection Ears: hearing grossly normal bilaterally General nose exam: Normal external nose present Face and sinus: Yes normal facial exam Eyes: General: appearance normal, both eyes and all related structures EOM: EOMs intact bilaterally Neck: Neck: Yes normal visual inspection and Yes no meningeal signs Resp: Effort & Inspection: normal respiratory effort and no respiratory distr ess Cardio: Rate: regular rate Peripheral pulses: dorsalis pedis present Skin: Wounds: no wounds Neuro: General: patient oriented x3 and no meningeal signs Gait exam (Neuro): Normal gait present Extrem: Other: Refer to images above. Small area of fluctuance noted to distal dorsal aspect of 5th metatarsal. + erythema/cellulitis and warmth extending from foot to proximal tib fib. Tender to palpation. Pitting edema. Distal pulses intact. No streaking. Course Course Course Narrative: -1755--mild leukocytosis of 11.3. H&H at patient's stable, sodium mildly low at 133, lactic 2.0, labs otherwise unremarkable > plan for admission MDM - Extremity Injury (Lower) MDM Narrative Medical decision making narrative: 60-year-old male with a past medical history of anxiety, asthma, colitis currently on 40mg of prednisone daily, Crohn's, depression, DM, HTN, kidney disease to the ED complaining of RLE worsening cellulitis/swelling/pain since 02/10/21. On exam initially tachycardic, NAD/nontoxic, physical exam as above, please refer to images. Concern for worsening cellulitis with small abscess noted to the 5th metatarsal. Will I&D. Plan: Labs, lactate, blood cultures, IV antibiotics, I&D, anticipated admission Medical Records Attestation: I reviewed the patient's medical records. Lab Data Attestation: I reviewed the patient's lab results. Result diagrams: 02/14/21 16:56 02/14/21 16:56 Labs: Lab Results 02/14/21 02/14/21 02/14/21 Range/Units 16:56 16:56 16:56 WBC 11.3 H (4.8-10.8) X10*3/uL RBC 3.75 L (4.60-5.80) X10*6/uL Hgb 9.9 L (14.0-18.0) g/dl Hct 32.6 L (42-52) % MCV 86.9 (80-98) fL MCH 26.4 L (27.0-33.0) pg MCHC 30.4 L (31.0-36.0) g/dl RDW 18.0 H (11.0-16.0) % Plt Count 436 H (160-400) X10*3/uL MPV 8.6 L (9.4-12.4) fL Immature Gran % (Auto) 0.4 (0.0-0.4) % Neut % (Auto) 72.6 (45-73) % Lymph % (Auto) 16.8 L (20-40) % [place] % (Auto) 9.5 (2-11) % Eos % (Auto) 0.5 (0-4) % Baso % (Auto) 0.2 (0-2) % Lymph # (Auto) 1.9 (1.2-4.9) X10*3/uL [place] # (Auto) 1.1 (0.1-1.2) X10*3/uL Eos # (Auto) 0.1 (0.0-0.4) X10*3/uL Baso # (Auto) 0.0 (0.0-0.2) X10*3/uL Abs Immat Gran (auto) 0.05 H (0.00-0.03) X10*3/uL Absolute Neuts (auto) 8.2 (2.0-8.3) X10*3/uL Absolute Nucleated RBC 0.000 (0.0-0.012) X10*3/uL Nucleated RBC % (auto) 0.0 (0.0-0.2) /100WBC Sodium 133 L (135-145) mmol/L Potassium 4.3 (3.3-5.1) mmol/L Chloride 96 (96-108) mmol/L Carbon Dioxide 26 (22-29) mmol/L Anion Gap 15 (12-20) BUN 20 H (9-16) mg/dL Creatinine 1.32 (0.5-1.4) mg/dL Estim Creat Clear Calc 69.3 Estimated GFR 55 Random Glucose 64 D (60-115) mg/dL Lactic Acid 2.0 (0.5-2.0) mmol/L Calcium 8.6 (8.4-10.2) mg/dL Magnesium 2.1 (1.6-2.6) mg/dL Total Bilirubin 0.4 (0.0-1.0) mg/dL Direct Bilirubin < 0.2 (0.0-0.5) mg/dL AST 16 D (5-37) U/L ALT 12 (0-40) U/L Alkaline Phosphatase 60 (39-117) U/L B-Natriuretic Peptide (<100) pg/mL Total Protein 6.2 L (6.5-8.0) g/dL Albumin 3.3 L (3.5-5.0) g/dL COVID-19 (KRISTOPHER) (Negative) COVID-19 Clin Com 02/14/21 02/14/21 Range/Units 16:56 16:56 WBC (4.8-10.8) X10*3/uL RBC (4.60-5.80) X10*6/uL Hgb (14.0-18.0) g/dl Hct (42-52) % MCV (80-98) fL MCH (27.0-33.0) pg MCHC (31.0-36.0) g/dl RDW (11.0-16.0) % Plt Count (160-400) X10*3/uL MPV (9.4-12.4) fL Immature Gran % (Auto) (0.0-0.4) % Neut % (Auto) (45-73) % Lymph % (Auto) (20-40) % [place] % (Auto) (2-11) % Eos % (Auto) (0-4) % Baso % (Auto) (0-2) % Lymph # (Auto) (1.2-4.9) X10*3/uL [place] # (Auto) (0.1-1.2) X10*3/uL Eos # (Auto) (0.0-0.4) X10*3/uL Baso # (Auto) (0.0-0.2) X10*3/uL Abs Immat Gran (auto) (0.00-0.03) X10*3/uL Absolute Neuts (auto) (2.0-8.3) X10*3/uL Absolute Nucleated RBC (0.0-0.012) X10*3/uL Nucleated RBC % (auto) (0.0-0.2) /100WBC Sodium (135-145) mmol/L Potassium (3.3-5.1) mmol/L Chloride (96-108) mmol/L Carbon Dioxide (22-29) mmol/L Anion Gap (12-20) BUN (9-16) mg/dL Creatinine (0.5-1.4) mg/dL Estim Creat Clear Calc Estimated GFR Random Glucose (60-115) mg/dL Lactic Acid (0.5-2.0) mmol/L Calcium (8.4-10.2) mg/dL Magnesium (1.6-2.6) mg/dL Total Bilirubin (0.0-1.0) mg/dL Direct Bilirubin (0.0-0.5) mg/dL AST (5-37) U/L ALT (0-40) U/L Alkaline Phosphatase (39-117) U/L B-Natriuretic Peptide < 10 (<100) pg/mL Total Protein (6.5-8.0) g/dL Albumin (3.5-5.0) g/dL COVID-19 (KRISTOPHER) Negative (Negative) COVID-19 Clin Com See Note Procedures Abscess I/D Site: foot Side (if applicable): right Local Anesthetic: lidocaine 1% Amount of anesthesia used (mL): 4 Technique: incised with blade Sent for culture/gram staining?: No Irrigation: No Packing used?: none Discharge Plan Discharge Clinical Impression: Cellulitis Patient Disposition: Admitted As Inpatient Prescriptions: No Action sucralfate 1 gram tablet 1 g PO BID Qty: 180 RF: 1 glyburide 5 mg tablet 5 mg PO BID RF: 0 mirtazapine 30 mg tablet 30 mg PO BEDTIME RF: 0 lisinopril 5 mg tablet 5 mg PO DAILY RF: 0 cephalexin 500 mg capsule 500 mg PO Q12H 7 Days Qty: 14 RF: 0 folic acid 1 mg tablet 1 tab PO DAILY RF: 0 paroxetine HCl 40 mg tablet 40 mg PO DAILY RF: 0 prednisone 10 mg tablet 10 mg PO BEDTIME RF: 0 prednisone 10 mg tablet 2 tab PO QAM RF: 0 hydroxyzine pamoate 50 mg capsule 2 cap PO BEDTIME PRN (Reason: Insomnia) RF: 0 melatonin 5 mg tablet 1 tab PO BEDTIME PRN (Reason: Insomnia) RF: 0 Nucynta ER 50 mg tablet extended release 12 hr 50 mg PO DAILY RF: 0 Xeljanz 10 mg tablet 10 mg PO DAILY RF: 0
[2021-02-14 16:16] VITALS: BP 108/54; PULSE 109; RESP 16; TEMP 37.2; O2SAT 98
[2021-02-14 17:03] LABS: MANUAL DIFF FLAG NO
[2021-02-14 17:08] LABS: Basophils Percent Auto 0.2 % (0-2); Eosinophils Absolute Auto 0.1 X10*3/uL (0.0-0.4); Eosinophils Percent Auto 0.5 % (0-4); Hematocrit 32.6 % (42-52); Hemoglobin 9.9 g/dl (14.0-18.0); Imm Gran Abs Auto 0.05 X10*3/uL (0.00-0.03); Imm Gran Pct Auto 0.4 % (0.0-0.4); Lymphocytes Absolute Auto 1.9 X10*3/uL (1.2-4.9); Lymphocytes Percent Auto 16.8 % (20-40); Mean Corpuscular HGB Conc 30.4 g/dl (31.0-36.0); Mean Corpuscular Hemoglobin 26.4 pg (27.0-33.0); Mean Corpuscular Volume 86.9 fL (80-98); Mean Platelet Volume 8.6 fL (9.4-12.4); Monocytes Absolute Auto 1.1 X10*3/uL (0.1-1.2); Monocytes Percent Auto 9.5 % (2-11); Neutrophils Absolute Auto 8.2 X10*3/uL (2.0-8.3); Neutrophils Percent Auto 72.6 % (45-73); Platelet Count 436 X10*3/uL (160-400); Red Blood Count 3.75 X10*6/uL (4.60-5.80); White Blood Count 11.3 X10*3/uL (4.8-10.8)
[2021-02-14 17:21] LABS: COVID-19 Test Negative (Negative)
[2021-02-14 17:26] LABS: Alanine Aminotransferase 12 U/L (0-40); Albumin Level 3.3 g/dL (3.5-5.0); Alkaline Phosphatase 60 U/L (39-117); Anion Gap 15 (12-20); Aspartate Amino Transferase 16 U/L (5-37); Bilirubin Direct < 0.2 mg/dL (0.0-0.5); Bilirubin Total 0.4 mg/dL (0.0-1.0); Blood Urea Nitrogen 20 mg/dL (9-16); Calcium 8.6 mg/dL (8.4-10.2); Carbon Dioxide 26 mmol/L (22-29); Chloride 96 mmol/L (96-108); Creatinine Clr Calc Pharmacy 69.3; Estimated Glomerular Filt Rate 55; Glucose Random 64 mg/dL (60-115); Magnesium 2.1 mg/dL (1.6-2.6); Potassium 4.3 mmol/L (3.3-5.1); Sodium 133 mmol/L (135-145); Total Protein 6.2 g/dL (6.5-8.0)
[2021-02-14 17:29] LABS: B Type Natriuretic Peptide < 10 pg/mL (<100)
[2021-02-14] MEDS: 0.9 % Sodium Chloride 1,000 ML 999 ML IVCONT (17:35)
[2021-02-14] MEDS: Piperacillin Sodium/Tazobactam 3.375 GM in 0.9 % Sodium Chloride 50 ML IV (17:48)
[2021-02-14 17:49] VITALS: BP 111/57; PULSE 105; RESP 16
[2021-02-14] MEDS: Lidocaine HCl 1 % MPF 5 ML VIAL SUBCUT (18:01)
[2021-02-14] MEDS: Acetaminophen 325 MG TABLET 650 MG PO (18:28)
[2021-02-14] MEDS: Ketorolac Tromethamine 15 MG/ML VIAL IVPUSH (18:28)
[2021-02-14 18:38] VITALS: BP 105/43; PULSE 109; RESP 16; TEMP 37.8; O2SAT 95
[2021-02-14] MEDS: vancomycin HCL 1,250 MG in 0.9 % Sodium Chloride 250 ML 166.67 MG IV (19:30)
[2021-02-14 19:35] VITALS: BP 99/53; PULSE 105; RESP 20
--- NOTE | 2021-02-14 20:35 | PM.IMHP ---
History of Present Illness Date of Service: 02/14/21 Chief Complaint: Leg swelling, redness, pain 58-year-old male with past medical history of diabetes, Crohn's disease, hypertension, CKD, renal stone, thalamic pain syndrome, and tubular adenoma Colon who presents to the hospital with complaints of nonhealing right foot infection. Was seen in the hospital on 02/10 and diagnosed with cellulitis of his right foot. At that time patient was given p.o. 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 Patient also reports that the swelling in his foot has now increased. Patient denies any fever but has chills. Denies any chest pain, no shortness of breath, no palpitations, no abdominal pain nausea or vomiting, has chronic diarrhea, no urinary symptoms. Denies any headache or change in vision no numbness tingling or weakness. On arrival to the ED patient hemodynamically stable with vital significant for a temp of 97.8?, heart rate of 102, respiratory rate of 18, blood pressure 106/76, settings 100% on room air. Labs are significant for WBC count of 11.3, hemoglobin of 9.9, MCV of 86.9, RDW of 18, sodium of 133 labs otherwise unremarkable Patient was found to have a small abscess on the lateral aspect of his right foot which was drained in the ED. Patient will be admitted for further management of cellulitis Review of Systems Review of Systems: Yes all other systems are reviewed and are negative [facility] Medical History Acute promyelocytic leukemia Anxiety Asthma Chronic cholecystitis Chronic idiopathic constipation Colitis Crohn disease Depression Diabetes 1.5, managed as type 1 Elevated serum glutamic pyruvic transaminase (SGPT) level H/O flexible sigmoidoscopy Hypertension Kidney disease Left sided abdominal pain Renal stones Thalamic pain syndrome (hyperesthetic) Tubular adenoma of colon Surgical History H/O lithotripsy H/O rectal sphincterotomy History of cholecystectomy History of colonoscopy History of hemorrhoidectomy Social History Household Members: Children Housing: Apartment Alcohol intake: never Patient Tobacco Use Status: Never used Tobacco Advance Directives: No Advance Directives Information Provided: No service: No Current occupational status: disabled Meds Allergies Allergy/AdvReac Type Severity Reaction Status Date / Time No Known Allergies Allergy Verified 02/10/21 06:18 [No Known Allergies*] none Allergy Unknown Unknown Uncoded 07/03/20 16:20 Active Medications: Current Medications Generic Name Dose Route Start Last Admin Trade Name Freq PRN Reason Stop Dose Admin Pharmacy Consult 1 each 02/14/21 16:28 Consult Rx Perform Med Rec MISCELLANE ONCE PRN Consult order Home Medications Medication Instructions Recorded Confirmed Last Taken Type glyburide 5 mg tablet 5 mg PO BID 03/22/20 02/14/21 02/14/21 History lisinopril 5 mg tablet 5 mg PO DAILY 03/22/20 02/14/21 02/14/21 History mirtazapine 30 mg tablet 30 mg PO BEDTIME 03/22/20 02/14/21 02/13/21 History tofacitinib 10 mg tablet (Xeljanz) 10 mg PO DAILY 08/18/20 02/14/21 02/14/21 History folic acid 1 mg tablet 1 tab PO DAILY 02/14/21 02/14/21 02/14/21 History hydroxyzine pamoate 50 mg capsule 2 cap PO BEDTIME PRN 02/14/21 02/14/21 02/13/21 History melatonin 5 mg tablet 1 tab PO BEDTIME PRN 02/14/21 02/14/21 Unknown History paroxetine HCl 40 mg tablet 40 mg PO DAILY 02/14/21 02/14/21 02/14/21 History prednisone 10 mg tablet 2 tab PO QAM 02/14/21 02/14/21 02/14/21 History prednisone 10 mg tablet 10 mg PO BEDTIME 02/14/21 02/14/21 02/13/21 History tapentadol 50 mg tablet,extended 50 mg PO DAILY 02/14/21 02/14/21 02/14/21 History release,12 hr ([facility]) Physical Exam Vital Signs and Narrative: Vital Signs: Last Vital Signs Temp 100.1 F 02/14/21 18:38 Pulse 105 H 02/14/21 19:35 Resp 20 02/14/21 19:35 BP 99/53 L 02/14/21 19:35 Pulse Ox 95 02/14/21 18:38 Body Mass Index 27.5 Const: General: cooperative and no acute distress Orientation/consciousness: patient oriented x3 Eyes: General: appearance normal, both eyes and all related structures Pupils: Equal, round and reactive pupils present Resp: Effort & Inspection: normal respiratory effort and abnormal respiratory pattern Auscultation: clear to auscultation bilaterally Cardio: Rate: regular rate Rhythm: regular rhythm GI: Palpation (GI): Soft to palpation Auscultation: normal bowel sounds Skin: Other: Right foot has erythema, warmth, edema, extending all the way to the mid helms tenderness Neuro: General: patient oriented x3 Cranial nerves: Yes Equal, round and reactive pupils present Cognition (Neuro): normal cognition Extrem: Other: See right foot skin 2+ edema of the right foot extending to the helms Results Labs CBC and Chem 7: 02/14/21 16:56 02/14/21 16:56 Labs: Laboratory Results - last 24 hr 02/14/21 02/14/21 02/14/21 16:56 16:56 16:56 MCV 86.9 MCH 26.4 L MCHC 30.4 L RDW 18.0 H Plt Count 436 H MPV 8.6 L Immature Gran % (Auto) 0.4 Neut % (Auto) 72.6 Lymph % (Auto) 16.8 L [place] % (Auto) 9.5 Eos % (Auto) 0.5 Baso % (Auto) 0.2 Lymph # (Auto) 1.9 [place] # (Auto) 1.1 Eos # (Auto) 0.1 Baso # (Auto) 0.0 Abs Immat Gran (auto) 0.05 H Absolute Neuts (auto) 8.2 Absolute Nucleated RBC 0.000 Nucleated RBC % (auto) 0.0 Anion Gap 15 Estim Creat Clear Calc 69.3 Estimated GFR 55 Random Glucose 64 D Lactic Acid 2.0 Calcium 8.6 Magnesium 2.1 Total Bilirubin 0.4 Direct Bilirubin < 0.2 AST 16 D ALT 12 Alkaline Phosphatase 60 B-Natriuretic Peptide Total Protein 6.2 L Albumin 3.3 L COVID-19 (KRISTOPHER) COVID-19 Clin Com 02/14/21 02/14/21 16:56 16:56 MCV MCH MCHC RDW Plt Count MPV Immature Gran % (Auto) Neut % (Auto) Lymph % (Auto) [place] % (Auto) Eos % (Auto) Baso % (Auto) Lymph # (Auto) [place] # (Auto) Eos # (Auto) Baso # (Auto) Abs Immat Gran (auto) Absolute Neuts (auto) Absolute Nucleated RBC Nucleated RBC % (auto) Anion Gap Estim Creat Clear Calc Estimated GFR Random Glucose Lactic Acid Calcium Magnesium Total Bilirubin Direct Bilirubin AST ALT Alkaline Phosphatase B-Natriuretic Peptide < 10 Total Protein Albumin COVID-19 (KRISTOPHER) Negative COVID-19 Clin Com See Note Assessment and Plan (1) Cellulitis: Qualifiers: Laterality: right Site of cellulitis: extremity Site of cellulitis of extremity: lower extremity Qualified Code(s): L03.115 - Cellulitis of right lower limb Status: Acute (2) Normocytic anemia: Status: Acute 60-year-old male with past medical history of diabetes, Crohn's disease who presents to the hospital with complaints of worsening cellulitis of his right foot # cellulitis of right foot - was seen in the ED on for an prescribed p.o. antibiotics but patient failed to get his medication - returns today with worsening erythema, tenderness, as well as wounds and edema - will start him on IV antibiotics vanc and Zosyn as there is an abscess that was drained in the ED as well as his history of diabetes - follow culture # normocytic anemia - has a drop of hemoglobin from 11 to 9.9 within the last 4 month - MCV normal has elevated RDW - will obtain B12, folic acid, as well as ferritin - continue to monitor CBC # hypertension - stable - continue lisinopril # diabetes - hold glyburide - will start him on low-dose sliding scale insulin - diabetic diet # history of Crohn's disease - has chronic diarrhea - continue home medications DVT prophylaxis: Lovenox Quality Stroke Does the patient have a stroke diagnosis?: No VTE Prior VTE?: No VTE Risk Level:: Medical - moderate - high VTE Device Contraindication: Treatment Not Indicated VTE Drug Contraindication: N/A - Med Ordered
[2021-02-14] MEDS: predniSONE 10 MG TABLET PO (23:10)
[2021-02-14] MEDS: Mirtazapine 30 MG TABLET PO (23:10)
[2021-02-14] MEDS: Enoxaparin Sodium 40 MG/0.4 ML SYRINGE SUBCUT (23:10)
[2021-02-14] MEDS: Sucralfate 1 GM TABLET PO (23:10)
[2021-02-15] MEDS: Piperacillin Sodium/Tazobactam 3.375 GM in 0.9 % Sodium Chloride 50 ML IV ×4 (00:49→17:16)
[2021-02-15] MEDS: 0.9 % Sodium Chloride Flush 3 ML SYRINGE IVFLUSH ×3 (01:04→15:30)
[2021-02-15 06:20] VITALS: BP 104/62; PULSE 97; RESP 18; TEMP 37; O2SAT 98
[2021-02-15 06:51] LABS: MANUAL DIFF FLAG NO
[2021-02-15 06:59] LABS: Basophils Percent Auto 0.1 % (0-2); Eosinophils Percent Auto 0.1 % (0-4); Hematocrit 30.4 % (42-52); Hemoglobin 9.3 g/dl (14.0-18.0); Imm Gran Abs Auto 0.02 X10*3/uL (0.00-0.03); Imm Gran Pct Auto 0.3 % (0.0-0.4); Lymphocytes Absolute Auto 0.8 X10*3/uL (1.2-4.9); Lymphocytes Percent Auto 11.7 % (20-40); Mean Corpuscular HGB Conc 30.6 g/dl (31.0-36.0); Mean Corpuscular Hemoglobin 26.6 pg (27.0-33.0); Mean Corpuscular Volume 87.1 fL (80-98); Mean Platelet Volume 9.3 fL (9.4-12.4); Monocytes Absolute Auto 0.4 X10*3/uL (0.1-1.2); Monocytes Percent Auto 5.6 % (2-11); Neutrophils Absolute Auto 5.9 X10*3/uL (2.0-8.3); Neutrophils Percent Auto 82.2 % (45-73); Platelet Count 376 X10*3/uL (160-400); Red Blood Count 3.49 X10*6/uL (4.60-5.80); Red Cell Distribution Width 17.8 % (11.0-16.0); White Blood Count 7.2 X10*3/uL (4.8-10.8)
[2021-02-15 07:24] LABS: Anion Gap 17 (12-20); Blood Urea Nitrogen 12 mg/dL (9-16); Calcium 8.1 mg/dL (8.4-10.2); Carbon Dioxide 22 mmol/L (22-29); Chloride 101 mmol/L (96-108); Creatinine Clr Calc Pharmacy 107.6; Estimated Glomerular Filt Rate > 60; Glucose Random 83 mg/dL (60-115); Potassium 4.7 mmol/L (3.3-5.1); Sodium 135 mmol/L (135-145)
[2021-02-15 08:00] LABS: Glucose, Whole Blood 127 mg/dL (60-115)
[2021-02-15 08:23] LABS: Folate 15.9 ng/mL (> or = 4.0); Vitamin B12 291 pg/mL (200-900)
[2021-02-15] MEDS: PARoxetine HCL 40 MG TABLET PO (08:27)
[2021-02-15] MEDS: Sucralfate 1 GM TABLET PO ×2 (08:27→20:51)
[2021-02-15] MEDS: predniSONE 20 MG TABLET PO (08:27)
[2021-02-15] MEDS: Folic Acid 1 MG TABLET PO (08:27)
[2021-02-15 08:28] VITALS: BP 95/49; PULSE 107
[2021-02-15] MEDS: vancomycin HCL 750 MG in 0.9 % Sodium Chloride 250 ML 265 MG IV (08:31)
[2021-02-15] MEDS: 0.9 % Sodium Chloride 1,000 ML 999 ML IV (08:37)
[2021-02-15 09:10] LABS: Ferritin 263 ng/mL (20-250)
--- NOTE | 2021-02-15 10:10 | HO.PM.IMPN ---
Subjective Subjective Date of Service: 02/15/21 Interval History: Complaining of right foot discomfort, denies fever chills no other acute issues overnight. Review of Systems General no headache, no dizziness, no fever chills. CVS no chest pain, no palpitation. Respiratory no cough, no sob. Gastrointestinal no nausea, no vomiting, no abdominal pain Physical Exam Vital Signs: Vital Signs: Last Vital Signs Temp 98.6 F 02/15/21 06:20 Pulse 107 H 02/15/21 08:28 Resp 18 02/15/21 06:20 BP 95/49 L 02/15/21 08:28 Pulse Ox 98 02/15/21 06:20 Body Mass Index 27.5 General resting comfortably in no acute distress. Neck no JVD. CVS regular rate rhythm, Respiratory lungs clear to auscultation, no respiratory distress, no wheeze, no rhonchi. Gastrointestinal abdomen soft, nontender, bowel sounds audible. Left lower Extremities no edema, right lower extremity with significant redness swelling extending to left cough, small open incision dorsum of foot with no induration,no fluctuation Neuro nonfocal Skin no rash Objective Data Active Medications Acetaminophen (Acetaminophen 325 Mg Tablet) 650 mg PO Q6H PRN PRN Reason: Pain, Mild (Pain Scale 1-3) Dextrose (Dextrose 50 % 25 Gm/50 Ml Vial) 25 gm IVPUSH Q15M PRN; Protocol PRN Reason: per Hypoglycemia Standing Ord. Docusate Sodium (Docusate Sodium 100 Mg Capsule) 100 mg PO DAILY PRN PRN Reason: Constipation Enoxaparin Sodium (Enoxaparin Sodium 40 Mg/0.4 Ml Syringe) 40 mg SUBCUT Q24H [facility] Last Admin: 02/14/21 23:10 Dose: 40 mg Documented by: GERMÁN Folic Acid (Folic Acid 1 Mg Tablet) 1 mg PO DAILY [facility] Last Admin: 02/15/21 08:27 Dose: 1 mg Documented by: MITCHELL Glucose (Glucose Gel 15 Gm Gel..Gram.) 15 gm PO Q15M PRN; Protocol PRN Reason: per Hypoglycemia Standing Ord. Hydroxyzine HCl (Hydroxyzine Hcl 50 Mg Tablet) 100 mg PO BEDTIME PRN PRN Reason: Insomnia Piperacillin Sod/Tazobactam (Sod 3.375 gm/ Sodium Chloride) 50 mls @ 100 mls/hr IV Q6H [facility] Last Infusion: 02/15/21 06:56 Dose: 0 mls/hr Documented by: GERMÁN Vancomycin HCl 1,000 mg/ (Sodium Chloride) 270 mls @ 270 mls/hr IV Q12H [facility] Insulin Human Lispro (Insulin Lispro 100 Unit/Ml 3 Ml Vial) 0 unit SUBCUT QIDACHS [facility]; Protocol Last Admin: 02/15/21 08:31 Dose: Not Given Documented by: MITCHELL Non-Admin Reason: No Insulin Coverage Melatonin (Melatonin 3 Mg Tablet) 6 mg PO BEDTIME PRN PRN Reason: Insomnia Mirtazapine (Mirtazapine 30 Mg Tablet) 30 mg PO BEDTIME [facility] Last Admin: 02/14/21 23:10 Dose: 30 mg Documented by: GERMÁN Morphine Sulfate (Morphine Sulfate 4 Mg/Ml Cartridge) 4 mg IVPUSH Q4H PRN; Protocol PRN Reason: Pain, Severe (Pain Scale 7-10) Non-Formulary Medication (Tapentadol [Nucynta Er]) 50 mg PO DAILY [facility] Non-Formulary Medication (Tofacitinib [Xeljanz]) 10 mg PO DAILY [facility] Ondansetron HCl (Ondansetron Hcl 4 Mg/2 Ml Vial) 4 mg IVPUSH Q8H PRN PRN Reason: Nausea and Vomiting Paroxetine HCl (Paroxetine Hcl 40 Mg Tablet) 40 mg PO DAILY [facility] Last Admin: 02/15/21 08:27 Dose: 40 mg Documented by: MITCHELL Pharmacy Consult (Consult Rx Perform Med Rec) 1 each MISCELLANE ONCE PRN PRN Reason: Consult order Pharmacy Consult (Consult Rx Vancomycin Dosing) 1 each MISCELLANE DAILY PRN PRN Reason: Consult order Prednisone (Prednisone 20 Mg Tablet) 20 mg PO DAILY [facility] Last Admin: 02/15/21 08:27 Dose: 20 mg Documented by: MITCHELL Prednisone (Prednisone 10 Mg Tablet) 10 mg PO BEDTIME [facility] Last Admin: 02/14/21 23:10 Dose: 10 mg Documented by: GERMÁN Sodium Chloride (0.9 % Sodium Chloride Flush 3 Ml Syringe) 3 ml IVFLUSH QSHIFT [facility] Last Admin: 02/15/21 08:31 Dose: 3 ml Documented by: MITCHELL Sucralfate (Sucralfate 1 Gm Tablet) 1 gm PO BID [facility] Last Admin: 02/15/21 08:27 Dose: 1 gm Documented by: MITCHELL Labs CBC & Chem 7: 02/15/21 06:34 02/15/21 06:34 Labs: Laboratory Results - last 24 hr 02/14/21 02/14/21 02/14/21 16:56 16:56 16:56 MCV 86.9 MCH 26.4 L MCHC 30.4 L RDW 18.0 H Plt Count 436 H MPV 8.6 L Immature Gran % (Auto) 0.4 Neut % (Auto) 72.6 Lymph % (Auto) 16.8 L [place] % (Auto) 9.5 Eos % (Auto) 0.5 Baso % (Auto) 0.2 Lymph # (Auto) 1.9 [place] # (Auto) 1.1 Eos # (Auto) 0.1 Baso # (Auto) 0.0 Abs Immat Gran (auto) 0.05 H Absolute Neuts (auto) 8.2 Absolute Nucleated RBC 0.000 Nucleated RBC % (auto) 0.0 Anion Gap 15 Estim Creat Clear Calc 69.3 Estimated GFR 55 POC Glucose Random Glucose 64 D Lactic Acid 2.0 Calcium 8.6 Magnesium 2.1 Ferritin Total Bilirubin 0.4 Direct Bilirubin < 0.2 AST 16 D ALT 12 Alkaline Phosphatase 60 B-Natriuretic Peptide Total Protein 6.2 L Albumin 3.3 L Vitamin B12 Folate COVID-19 (KRISTOPHER) COVID-19 Clin Com 02/14/21 02/14/21 02/15/21 16:56 16:56 06:34 MCV 87.1 MCH 26.6 L MCHC 30.6 L RDW 17.8 H Plt Count 376 MPV 9.3 L Immature Gran % (Auto) 0.3 Neut % (Auto) 82.2 H Lymph % (Auto) 11.7 L [place] % (Auto) 5.6 Eos % (Auto) 0.1 Baso % (Auto) 0.1 Lymph # (Auto) 0.8 L [place] # (Auto) 0.4 Eos # (Auto) 0.0 Baso # (Auto) 0.0 Abs Immat Gran (auto) 0.02 Absolute Neuts (auto) 5.9 Absolute Nucleated RBC 0.000 Nucleated RBC % (auto) 0.0 Anion Gap Estim Creat Clear Calc Estimated GFR POC Glucose Random Glucose Lactic Acid Calcium Magnesium Ferritin Total Bilirubin Direct Bilirubin AST ALT Alkaline Phosphatase B-Natriuretic Peptide < 10 Total Protein Albumin Vitamin B12 Folate COVID-19 (KRISTOPHER) Negative COVID-19 Clin Com See Note 02/15/21 02/15/21 02/15/21 06:34 06:34 06:34 MCV MCH MCHC RDW Plt Count MPV Immature Gran % (Auto) Neut % (Auto) Lymph % (Auto) [place] % (Auto) Eos % (Auto) Baso % (Auto) Lymph # (Auto) [place] # (Auto) Eos # (Auto) Baso # (Auto) Abs Immat Gran (auto) Absolute Neuts (auto) Absolute Nucleated RBC Nucleated RBC % (auto) Anion Gap 17 Estim Creat Clear Calc 107.6 Estimated GFR > 60 POC Glucose Random Glucose 83 Lactic Acid Calcium 8.1 L Magnesium Ferritin 263 H Total Bilirubin Direct Bilirubin AST ALT Alkaline Phosphatase B-Natriuretic Peptide Total Protein Albumin Vitamin B12 291 Folate 15.9 COVID-19 (KRISTOPHER) COVID-19 Clin Com 02/15/21 07:56 MCV MCH MCHC RDW Plt Count MPV Immature Gran % (Auto) Neut % (Auto) Lymph % (Auto) [place] % (Auto) Eos % (Auto) Baso % (Auto) Lymph # (Auto) [place] # (Auto) Eos # (Auto) Baso # (Auto) Abs Immat Gran (auto) Absolute Neuts (auto) Absolute Nucleated RBC Nucleated RBC % (auto) Anion Gap Estim Creat Clear Calc Estimated GFR POC Glucose 127 H Random Glucose Lactic Acid Calcium Magnesium Ferritin Total Bilirubin Direct Bilirubin AST ALT Alkaline Phosphatase B-Natriuretic Peptide Total Protein Albumin Vitamin B12 Folate COVID-19 (KRISTOPHER) COVID-19 Clin Com Assessment and Plan (1) Normocytic anemia: Status: Acute (2) Cellulitis: Status: Acute (3) Crohn disease: Status: Acute Assessment and Plan: 60-year-old male with past medical history of diabetes, Crohn's disease who presents to the hospital with complaints of worsening cellulitis of his right foot # extensive cellulitis of right foot/leg - was seen in the ED on 02/10 for right foot cellulitis antibiotics were prescribed but patient failed to get his medication, return to ER with worsening erythema pain and extension of cellulitis involving right leg and a small abscess on dorsum of foot drained in ER, x-ray foot 02 10 showed no evidence of osteo Continue IV antibiotics vanc and Zosyn day 2 , blood cultures x2 pending, WBC normalized,no recurrent fevers,follow clinical course closely. # normocytic anemia - has a drop of hemoglobin from 11 to 9.3 within the last 4 month - MCV normal has elevated RDW, B12 and folic acid are normal, will add iron profile,check stool guaiac, question anemia of chronic disease with history of Crohn's dz # hypertension - low blood pressure hold lisinopril # diabetes - blood sugars stable, hold glyburide, diabetic diet # history of Crohn's disease - has chronic diarrhea, continue home medications DVT prophylaxis:? [employer] Quality Stroke Does the patient have a stroke diagnosis?: No VTE Prior VTE?: No VTE Risk Level:: Medical - moderate - high VTE Device Contraindication: Treatment Not Indicated VTE Drug Contraindication: N/A - Med Ordered
--- NOTE | 2021-02-15 10:17 | MHC.CM.PN ---
Met with patient and aids social worker in regards to discharge planning. Patient lives with his 2 children, normally ambulates independently but has been using a cane since cellulitis diagnosis, and had no services prior to coming to the ER. PCP verified. Copy of HCP obtained from [facility]. Patient received 2nd Pfizer vaccine in August at the [facility]. No services anticipated to be needed at d/c. Patient's brother will transport him home when medically stable. IMM explained and signed. Continue to monitor for d/c needs.
[2021-02-15 10:55] LABS: Iron 27 mcg/dL (45-160); Percent Iron Saturation 11 % (15-50); Total Iron Binding Capacity 236 mcg/dL (228-428); Unsaturated Iron Binding 209 ug/dL
[2021-02-15 12:34] VITALS: BP 111/69; PULSE 96; RESP 18; TEMP 37; O2SAT 97
[2021-02-15 12:59] LABS: Glucose, Whole Blood 119 mg/dL (60-115)
[2021-02-15 15:24] VITALS: BP 125/60; PULSE 115; RESP 18; TEMP 37; O2SAT 97
[2021-02-15] MEDS: Acetaminophen 325 MG TABLET 650 MG PO ×2 (15:27→21:58)
[2021-02-15 16:31] LABS: Glucose, Whole Blood 202 mg/dL (60-115)
[2021-02-15] MEDS: Insulin Lispro 100 UNIT/ML 3 ML VIAL SUBCUT ×2 (17:16→20:49)
[2021-02-15 19:34] VITALS: BP 102/61; PULSE 97; RESP 18; TEMP 36.4; O2SAT 96
[2021-02-15 20:23] LABS: Glucose, Whole Blood 159 mg/dL (60-115)
[2021-02-15] MEDS: vancomycin HCL 1,000 MG in 0.9 % Sodium Chloride 250 ML 270 MG IV (20:47)
[2021-02-15] MEDS: Enoxaparin Sodium 40 MG/0.4 ML SYRINGE SUBCUT (20:50)
[2021-02-15] MEDS: Mirtazapine 30 MG TABLET PO (20:51)
[2021-02-15] MEDS: predniSONE 10 MG TABLET PO (20:51)
[2021-02-16] VITALS (7 sets, daily range): BP systolic 105–121; BP diastolic 51–74; PULSE 66–86; RESP 16–20; TEMP 36–37.1; O2SAT 95–98
[2021-02-16] MEDS: 0.9 % Sodium Chloride Flush 3 ML SYRINGE IVFLUSH ×5 (00:03→22:54)
[2021-02-16] MEDS: Piperacillin Sodium/Tazobactam 3.375 GM in 0.9 % Sodium Chloride 50 ML IV ×5 (00:04→22:53)
[2021-02-16 08:17] LABS: Glucose, Whole Blood 125 mg/dL (60-115)
[2021-02-16 08:25] LABS: Vancomycin Trough 6.1 mcg/mL (10.0-20.0)
--- NOTE | 2021-02-16 08:35 | PC.NURSE ---
Skin/wound assessment completed today. Patient has cellulitis to right foot with an open area. Redness is smaller and swelling has reduced. Silver alginate applied to open area cover with gauze and roll gauze. No other skin issues noted at this time.
[2021-02-16 09:03] LABS: Creatinine Clr Calc Pharmacy 107.6; Estimated Glomerular Filt Rate > 60
[2021-02-16] MEDS: PARoxetine HCL 40 MG TABLET PO (09:24)
[2021-02-16] MEDS: Folic Acid 1 MG TABLET PO (09:24)
[2021-02-16] MEDS: vancomycin HCL 1,250 MG in 0.9 % Sodium Chloride 250 ML 166.67 MG IV ×2 (09:24→21:13)
[2021-02-16] MEDS: predniSONE 20 MG TABLET PO (09:24)
[2021-02-16] MEDS: Sucralfate 1 GM TABLET PO ×2 (09:24→21:15)
[2021-02-16] MEDS: Acetaminophen 325 MG TABLET 650 MG PO (09:40)
[2021-02-16 11:39] LABS: Glucose, Whole Blood 134 mg/dL (60-115)
--- NOTE | 2021-02-16 12:23 | MHC.CLN ---
NUTRITION CHANGED DIET TO DIABETIC 2200 KCAL TO PROVIDE 24.7 KCAL/KG IBW.
--- NOTE | 2021-02-16 14:53 | MHC.CM.PN ---
PER HOSITALIST ROUNDS, POSSIBLE DC TO HOME ON PO ANTIBIOTICS FRIDAY. CASE MANAGEMENT FOLLOWING.
[2021-02-16 16:18] LABS: Glucose, Whole Blood 239 mg/dL (60-115)
--- NOTE | 2021-02-16 16:55 | P.PNIM_ITS ---
Subjective Subjective Date of Service: 02/16/21 Interval History: Being followed for right leg cellulitis, Feels better this morning, denies fever chills, no nausea no vomiting. Review of Systems General no headache, no dizziness, no fever chills.? CVS no chest pain, no palpitation.? Respiratory no cough, no sob.? Gastrointestinal no nausea, no vomiting, no abdominal pain Physical Exam Vital Signs: Vital Signs: Last Vital Signs Temp 98 F 02/16/21 15:41 Pulse 70 02/16/21 15:41 Resp 20 02/16/21 15:41 BP 112/68 02/16/21 15:41 Pulse Ox 98 02/16/21 15:41 Body Mass Index 27.5 General? resting comfortably in no acute distress.? Neck? no JVD. CVS? regular rate rhythm, Respiratory lungs clear to auscultation, no respiratory distress, no wheeze, no rhonchi. Gastrointestinal abdomen soft, nontender, bowel sounds audible. Left lower Extremities no edema, right lower extremity redness significantly improved,mild persistent swelling, small open incision dorsum of foot with no induration,no fluctuation Neuro nonfocal Skin no rash Objective Data Active Medications Acetaminophen (Acetaminophen 325 Mg Tablet) 650 mg PO Q6H PRN PRN Reason: Pain, Mild (Pain Scale 1-3) Last Admin: 02/16/21 09:40 Dose: 650 mg Documented by: SAVANNAH Dextrose (Dextrose 50 % 25 Gm/50 Ml Vial) 25 gm IVPUSH Q15M PRN; Protocol PRN Reason: per Hypoglycemia Standing Ord. Docusate Sodium (Docusate Sodium 100 Mg Capsule) 100 mg PO DAILY PRN PRN Reason: Constipation Enoxaparin Sodium (Enoxaparin Sodium 40 Mg/0.4 Ml Syringe) 40 mg SUBCUT Q24H [facility] Last Admin: 02/15/21 20:50 Dose: 40 mg Documented by: PARESH Folic Acid (Folic Acid 1 Mg Tablet) 1 mg PO DAILY [facility] Last Admin: 02/16/21 09:24 Dose: 1 mg Documented by: SAVANNAH Glucose (Glucose Gel 15 Gm Gel..Gram.) 15 gm PO Q15M PRN; Protocol PRN Reason: per Hypoglycemia Standing Ord. Hydroxyzine HCl (Hydroxyzine Hcl 50 Mg Tablet) 100 mg PO BEDTIME PRN PRN Reason: Insomnia Piperacillin Sod/Tazobactam (Sod 3.375 gm/ Sodium Chloride) 50 mls @ 100 mls/hr IV Q6H [facility] Last Infusion: 02/16/21 13:57 Dose: 0 mls/hr Documented by: SAVANNAH Vancomycin HCl 1,250 mg/ (Sodium Chloride) 250 mls @ 166.667 mls/hr IV Q12H [facility] Last Infusion: 02/16/21 11:04 Dose: 0 mls/hr Documented by: SAVANNAH Insulin Human Lispro (Insulin Lispro 100 Unit/Ml 3 Ml Vial) 0 unit SUBCUT QIDACHS [facility]; Protocol Last Admin: 02/16/21 12:01 Dose: Not Given Documented by: SAVANNAH Non-Admin Reason: No Insulin Coverage Melatonin (Melatonin 3 Mg Tablet) 6 mg PO BEDTIME PRN PRN Reason: Insomnia Mirtazapine (Mirtazapine 30 Mg Tablet) 30 mg PO BEDTIME [facility] Last Admin: 02/15/21 20:51 Dose: 30 mg Documented by: PARESH Morphine Sulfate (Morphine Sulfate 4 Mg/Ml Cartridge) 4 mg IVPUSH Q4H PRN; Protocol PRN Reason: Pain, Severe (Pain Scale 7-10) Non-Formulary Medication (Tapentadol [Nucynta Er]) 50 mg PO DAILY [facility] Non-Formulary Medication (Tofacitinib [Xeljanz]) 10 mg PO DAILY [facility] Ondansetron HCl (Ondansetron Hcl 4 Mg/2 Ml Vial) 4 mg IVPUSH Q8H PRN PRN Reason: Nausea and Vomiting Paroxetine HCl (Paroxetine Hcl 40 Mg Tablet) 40 mg PO DAILY [facility] Last Admin: 02/16/21 09:24 Dose: 40 mg Documented by: SAVANNAH Pharmacy Consult (Consult Rx Perform Med Rec) 1 each MISCELLANE ONCE PRN PRN Reason: Consult order Pharmacy Consult (Consult Rx Vancomycin Dosing) 1 each MISCELLANE DAILY PRN PRN Reason: Consult order Prednisone (Prednisone 20 Mg Tablet) 20 mg PO DAILY [facility] Last Admin: 02/16/21 09:24 Dose: 20 mg Documented by: SAVANNAH Prednisone (Prednisone 10 Mg Tablet) 10 mg PO BEDTIME [facility] Last Admin: 02/15/21 20:51 Dose: 10 mg Documented by: PARESH Sodium Chloride (0.9 % Sodium Chloride Flush 3 Ml Syringe) 3 ml IVFLUSH QSHIFT [facility] Last Admin: 02/16/21 09:24 Dose: 3 ml Documented by: SAVANNAH Sucralfate (Sucralfate 1 Gm Tablet) 1 gm PO BID [facility] Last Admin: 02/16/21 09:24 Dose: 1 gm Documented by: SAVANNAH Labs CBC & Chem 7: 02/15/21 06:34 02/16/21 07:41 Labs: Laboratory Results - last 24 hr 02/15/21 02/16/21 02/16/21 20:08 07:41 07:41 Estim Creat Clear Calc 107.6 Estimated GFR > 60 POC Glucose 159 H Vancomycin Trough 6.1 L 02/16/21 02/16/21 02/16/21 07:56 11:23 16:09 Estim Creat Clear Calc Estimated GFR POC Glucose 125 H 134 H 239 H Vancomycin Trough Microbiology Microbiology Results: Microbiology 02/14/21 17:35 Blood Culture - Preliminary Blood - Venous No growth after 24 hours. 02/14/21 16:56 Blood Culture - Preliminary Blood - Venous No growth after 24 hours. Assessment and Plan (1) Normocytic anemia: Status: Acute (2) Cellulitis: Status: Acute Assessment and Plan: 60-year-old male with past medical history of diabetes, Crohn's disease who presents to the hospital with complaints of worsening cellulitis of his right foot # extensive cellulitis of right foot/leg - was seen in the ED on 02/10 for right foot cellulitis antibiotics were prescribed but patient failed to get his medication, return to ER with worsening erythema pain and extension of cellulitis involving right leg and a small abscess ? on dorsum of foot drained in ER, x-ray foot 02/10 showed no evidence of osteo Redness and swelling significantly improved,? Continue IV antibiotics vanc and Zosyn day 3 , blood cultures x2 neg, WBC normalized,no recurrent fevers, Will discharge home at a.m. if continue to have clinical improvement. # normocytic anemia - has a drop of hemoglobin from 11 to 9.3 within the last 4 month - MCV normal has elevated RDW, B12 and folic acid are normal, showed low saturation likely has anemia of chronic disease # hypertension - low blood pressure continue to hold lisinopril # diabetes - blood sugars stable, resume glyburide, diabetic diet # history of Crohn's disease - has chronic diarrhea, continue home medications DVT prophylaxis:? Lovenox Quality Stroke Does the patient have a stroke diagnosis?: No VTE Prior VTE?: No VTE Risk Level:: Medical - moderate - high VTE Device Contraindication: Treatment Not Indicated VTE Drug Contraindication: N/A - Med Ordered
[2021-02-16] MEDS: Insulin Lispro 100 UNIT/ML 3 ML VIAL SUBCUT (17:00)
[2021-02-16 20:24] LABS: Glucose, Whole Blood 127 mg/dL (60-115)
[2021-02-16] MEDS: Enoxaparin Sodium 40 MG/0.4 ML SYRINGE SUBCUT (21:15)
[2021-02-16] MEDS: predniSONE 10 MG TABLET PO (21:15)
[2021-02-16] MEDS: Mirtazapine 30 MG TABLET PO (21:15)
[2021-02-17 04:00] VITALS: BP 114/72; PULSE 88; RESP 20; TEMP 37.7; O2SAT 98
[2021-02-17] MEDS: Piperacillin Sodium/Tazobactam 3.375 GM in 0.9 % Sodium Chloride 50 ML IV (06:16)
[2021-02-17 07:20] LABS: Glucose, Whole Blood 127 mg/dL (60-115)
[2021-02-17 07:56] VITALS: BP 117/70; PULSE 86; RESP 18; TEMP 36.4; O2SAT 99
[2021-02-17] MEDS: Sucralfate 1 GM TABLET PO (09:28)
[2021-02-17] MEDS: vancomycin HCL 1,250 MG in 0.9 % Sodium Chloride 250 ML 166.66 MG IV (09:28)
[2021-02-17] MEDS: PARoxetine HCL 40 MG TABLET PO (09:28)
[2021-02-17] MEDS: 0.9 % Sodium Chloride Flush 3 ML SYRINGE IVFLUSH (09:28)
[2021-02-17] MEDS: predniSONE 20 MG TABLET PO (09:28)
[2021-02-17] MEDS: Folic Acid 1 MG TABLET PO (09:28)
--- NOTE | 2021-02-17 09:31 | PM.DS ---
DS: Providers Provider Date of Service: 02/17/21 Date of admission: 02/14/21 20:08 Primary care physician: Luke Kamara MD DS: Diagnosis Discharge Diagnosis (1) Normocytic anemia: Status: Acute (2) Cellulitis: Status: Acute DS: Summary Hospital Course Hospital Course: History of presenting illness Date of Service: 02/14/21 Chief Complaint: Leg swelling, redness, pain 58-year-old male with past medical history of diabetes, Crohn's disease, hypertension, CKD, renal stone, thalamic pain syndrome, and tubular adenoma Colon who presents to the hospital with complaints of nonhealing right foot infection.? Was seen in the hospital on 02/10 and diagnosed with cellulitis of his right foot.? At that time patient was given p.o. 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 Patient also reports that the swelling in his foot has now increased.? Patient denies any fever but has chills.? Denies any chest pain, no shortness of breath, no palpitations, no abdominal pain nausea or vomiting, has chronic diarrhea, no urinary symptoms.? Denies any headache or change in vision no numbness tingling or weakness. On arrival to the ED patient hemodynamically stable with vital significant for a temp of 97.8?, heart rate of 102, respiratory rate of 18, blood pressure 106/76, settings 100% on room air. Labs are significant for WBC count of 11.3, hemoglobin of 9.9, MCV of 86.9, RDW of 18, sodium of 133 labs otherwise unremarkable Patient was found to have a small abscess on the lateral aspect of his right foot which was drained in the ED.? Patient will be admitted for further management of cellulitis Hospital course 60-year-old male with past medical history of diabetes, Crohn's disease who presents to the hospital with complaints of worsening cellulitis of his right foot and diagnosed to have extensive cellulitis of right foot/leg was seen in the ED on 02/10 for right foot cellulitis antibiotics were prescribed but patient failed to get his medication, return to ER with worsening erythema pain and extension of cellulitis involving right leg and a small abscess on dorsum of foot drained in ER, x-ray foot 02/10 showed no evidence of osteo patient treated with IV antibiotics vancomycin and Zosyn , blood cultures x2 neg, WBC normalized,no recurrent fevers, since patient redness and swelling has significantly improved he is being discharged home on by mouth Keflex and doxycycline for 1 week duration he has been recommended to return to check with any worsening symptoms. Patient was noted to have normocytic anemia with drop in hemoglobin from 11 to 9.3 within the last 4 month, MCV normal ,elevated RDW, workup revealed normal B12 and folic acid , iron studies consistent with anemia of chronic disease. In regard to hypertension BP was noted to be low normal recommend to continue lisinopril and follow BP closely Time Spent with Patient Time attestation: Total time spent providing and/or coordinating discharge services: Discharge coordination time: Greater than 30 minutes Quality: Stroke Does the patient have a stroke diagnosis?: No Physical Exam Vital Signs: Vital Signs: Last Vital Signs Temp 97.6 F 02/17/21 07:56 Pulse 86 02/17/21 07:56 Resp 18 02/17/21 07:56 BP 117/70 02/17/21 07:56 Pulse Ox 99 02/17/21 07:56 Body Mass Index 27.5 General? resting comfortably in no acute distress.? Neck? no JVD. CVS? regular rate rhythm, Respiratory lungs clear to auscultation, no respiratory distress, no wheeze, no rhonchi. Gastrointestinal abdomen soft, nontender, bowel sounds audible. Left lower Extremities no edema, right lower extremity redness significantly improved,mild persistent swelling, small open incision dorsum of foot with no induration,no fluctuation Neuro nonfocal Skin no rash DS: Data Data Completed and Pending Labs on day of discharge: Laboratory Results - last 24 hr 02/16/21 02/16/21 02/16/21 11:23 16:09 20:15 POC Glucose 134 H 239 H 127 H 02/17/21 07:08 POC Glucose 127 H Preliminary micro results at discharge 02/14/21 17:35 Blood Culture - Preliminary Blood - Venous No growth after 48 hours. 02/14/21 16:56 Blood Culture - Preliminary Blood - Venous No growth after 48 hours. Discharge Plan Discharge Patient Disposition: Home, Self-Care Discharge Diagnosis: Right foot and leg cellulitis and abscess Normocytic anemia Hypertension Diabetes Referrals: Luke Kamara MD [Primary Care Provider] - 1 Week Discharge Medications: New doxycycline hyclate 100 mg capsule 100 mg PO BID Qty: 14 RF: 0 Continued sucralfate 1 gram tablet 1 g PO BID Qty: 180 RF: 1 glyburide 5 mg tablet 5 mg PO BID RF: 0 mirtazapine 30 mg tablet 30 mg PO BEDTIME RF: 0 lisinopril 5 mg tablet 5 mg PO DAILY RF: 0 cephalexin 500 mg capsule 500 mg PO Q12H 7 Days Qty: 14 RF: 0 folic acid 1 mg tablet 1 tab PO DAILY RF: 0 paroxetine HCl 40 mg tablet 40 mg PO DAILY RF: 0 prednisone 10 mg tablet 10 mg PO BEDTIME RF: 0 prednisone 10 mg tablet 2 tab PO QAM RF: 0 melatonin 5 mg tablet 1 tab PO BEDTIME PRN (Reason: Insomnia) RF: 0 Nucynta ER 50 mg tablet extended release 12 hr 50 mg PO DAILY RF: 0 Xeljanz 10 mg tablet 10 mg PO DAILY RF: 0 Discontinued hydroxyzine pamoate 50 mg capsule 2 cap PO BEDTIME PRN (Reason: Insomnia) RF: 0 Discharge Orders: Discharge Order (Routine); Ordered 02/17/21 Ordered By: Jeremy Cummins Diet: diabetic diet Activity on Discharge: As tolerated Stand Alone Forms: Patient Portal Discharge page Care Plan Goals: Take Keflex and doxycycline for 1 week return to check with any worsening redness swelling, keep right leg elevated Health Concerns: Continue all home medications follow blood sugars Plan of Treatment: Follow-up with primary care physician in 1 week Assessment: As above
--- NOTE | 2021-02-17 10:35 | MHC.CM.PN ---
PT CLEARED TO DC HOME TODAY WITH NO SERVICES. FAMILY TO TRANSPORT
[2021-02-17 10:48] LABS: Creatinine Clr Calc Pharmacy 95.3; Estimated Glomerular Filt Rate > 60
[2021-02-17 11:00] LABS: Glucose, Whole Blood 113 mg/dL (60-115)
== END 2021-02-17 11:21 | disposition home or self-care (01) | DRG 603 ==
LOC: HO.ED 18:00 → HO.EDOVER 20:29 → HO.S3 02-15 13:25
PROVIDERS: Physician Assistant; Admitting Provider Internal Medicine; Emergency Provider Student in an Organized Health Care Education/Training Program; PCP Internal Medicine; Visit Provider Hospitalist
DX: L03.115 Cellulitis of right lower limb (principal); K50.90 Crohn's disease, unspecified, without complications; I12.9 Hypertensive chronic kidney disease with stage 1 through stage 4 chronic kidney disease, or unspecified chronic kidney disease; E11.22 Type 2 diabetes mellitus with diabetic chronic kidney disease; N18.9 Chronic kidney disease, unspecified; Z20.822 Contact with and (suspected) exposure to COVID-19; Z79.52 Long term (current) use of systemic steroids; Z79.899 Other long term (current) drug therapy
CPT/HCPCS: 36415; 80048; 80076; 80202; 82565; 82607; 82728; 82746; 82947; 83540; 83605; 83735; 83880; 85025; 87040; 87635; 96365; 96367; 99284; 99285; J1650; J1885; J2543; J3370

== ENCOUNTER → 2021-03-05 14:07 | Outpatient (BNVA) | payer MEDICARE, MEDICAID, SELFPAY | PROVIDERS: PCP Internal Medicine; Visit Provider Internal Medicine Gastroenterology | DX: D12.6 Benign neoplasm of colon, unspecified (principal) | CPT/HCPCS: Q3014 ==

== ENCOUNTER 2021-04-02 08:05 | Observation (INO) | payer MEDICARE, MEDICAID, SELFPAY ==
--- NOTE | ~2021-04-02 | CT_ITS ---
EXAMINATION: CT ABDOMEN AND PELVIS WITHOUT CONTRAST CLINICAL INFORMATION: History of colitis. Abdominal pain and rectal bleeding. COMPARISON: Previous CT of the abdomen and pelvis February 2018, MR of the abdomen May 2020 and renal ultrasound most recent April 2019 TECHNIQUE: Multidetector volumetric imaging was performed from the superior aspect of the liver through the pubic symphysis. Sagittal and coronal reformatted images were obtained on the technologist's workstation. This CT examination was performed using dose optimization techniques as appropriate, variously including the following: *Automated exposure control *Adjustment of mA and/or kV according to patient size (this includes techniques or standardized protocols for targeted exams where dose is matched to indication/reason for exam; i.e. extremities or head) *Use of iterative reconstruction technique DLP: 1019 mGy-cm FINDINGS: LUNG BASES: The visualized lung bases are unremarkable. LIVER, GALLBLADDER, AND BILIARY TREE: The liver is normal in size, shape, and attenuation. No focal hepatic lesion or biliary ductal dilatation is present. The gallbladder has been removed. PANCREAS: Unremarkable. SPLEEN: Unremarkable. ADRENAL GLANDS: Unremarkable. KIDNEYS AND URETERS: There are multiple bilateral renal stones. Largest right renal stone measures 2 x 3 mm in the lower pole. Largest left renal stone measures 3 x 4 mm in the upper pole. No hydronephrosis, ureteral dilatation or ureteral stone is seen BLADDER: Not optimally distended GASTROINTESTINAL TRACT: There is ahaustral appearance of the distal colon and fatty infiltration in the wall. There is prominent fat adjacent to the distal colon. There is some prominent vascularity or vasa recta. No bowel wall thickening to suggest acute inflammatory process is seen. There is stool throughout the colon questionable for mild constipation. No evidence of obstruction, perforation or abscess is seen. Small and large bowel is otherwise unremarkable. The appendix is unremarkable. The stomach is unremarkable. ABDOMINAL WALL: There is a small umbilical hernia containing fat. There is fat in both inguinal canals. LYMPH NODES: There are small pericolic lymph nodes that are stable. No enlarged lymph nodes are seen. No ascites. VASCULAR: Unremarkable. PELVIC VISCERA: Unremarkable. OSSEOUS STRUCTURES: There are degenerative changes of the spine. 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 CT/CT abdomen pelvis wo con IMPRESSION: No evidence of active colitis. Chronic changes of ulcerative colitis in the distal colon similar to prior exams. Multiple bilateral renal stones.
[2021-04-02 08:09] VITALS: BP 130/95; PULSE 100; RESP 18; TEMP 36.1; O2SAT 98; BMI 30.4
--- NOTE | 2021-04-02 08:43 | ED.GIBLEED ---
HPI - GI Bleed General Chief complaint: GI Bleed Stated complaint: back pain Time Seen by Provider: 04/02/21 08:32 Source: patient and educational sign language interpreter Mode of arrival: ambulatory Limitations: no limitations History of Present Illness HPI Narrative: 60-year-old male with history of colitis came in for evaluation of GI bleed and abdominal pain. Symptoms started since yesterday with bilateral abdominal pain on both sides right and left, pain started since yesterday as constant dull aching pain, moderate 5/10, pain with no radiation, nothing makes the pain worse, nothing make it better pain is associated with bloody loose stool, patient had multiple episode of colitis in the past, patient has followed with taker off braker machine in [facility] and also at [facility]. No fever, no chills. No chest pain, no shortness of breath. Related Data Home Medications Medication Instructions Recorded Confirmed glyburide 5 mg tablet 5 mg PO BID 03/22/20 04/02/21 lisinopril 5 mg tablet 5 mg PO DAILY 03/22/20 04/02/21 mirtazapine 30 mg tablet 30 mg PO BEDTIME 03/22/20 04/02/21 tofacitinib 10 mg tablet (Xeljanz) 10 mg PO DAILY 08/18/20 04/02/21 folic acid 1 mg tablet 1 tab PO DAILY 02/14/21 04/02/21 melatonin 5 mg tablet 1 tab PO BEDTIME PRN 02/14/21 04/02/21 paroxetine HCl 40 mg tablet 40 mg PO DAILY 02/14/21 04/02/21 prednisone 10 mg tablet 4 tab PO QAM 02/14/21 04/02/21 acetaminophen 500 mg tablet 1,000 mg PO DAILY 04/02/21 04/02/21 docusate sodium 100 mg capsule 100 mg PO DAILY PRN 04/02/21 04/02/21 hydroxyzine pamoate 50 mg capsule 2 cap PO BEDTIME PRN 04/02/21 04/02/21 ustekinumab 90 mg/mL subcutaneous 90 mg SUBCUT Q8W 04/02/21 04/02/21 syringe (Stelara) Previous Rx's Medication Instructions Recorded sucralfate 1 gram tablet 1 g PO BID #180 tab 10/20/20 tapentadol 50 mg tablet,extended 50 mg PO DAILY #30 tab 03/05/21 release,12 hr (Nucynta ER) Allergies Allergy/AdvReac Type Severity Reaction Status Date / Time No Known Allergies Allergy Verified 03/05/21 14:08 [No Known Allergies*] none Allergy Unknown Unknown Uncoded 03/05/21 14:08 Review of Systems Review of Systems: All other systems are reviewed and are negative Constitutional: Reports as per HPI and Reports no additional constitutional complaints Eyes: Reports as per HPI and Reports no additional eye complaints Reports system reviewed and no additional complaints, except as documented Cardiovascular: Reports as per HPI and Reports no additional cardiovascular complaints Respiratory: Reports as per HPI and Reports no additional respiratory complaints Gastrointestinal: Reports as per HPI and Reports no additional gastrointestinal complaints Genitourinary: Reports no additional female genitourinary complaints Musculoskeletal: Reports no additional musculoskeletal complaints Skin/Breast: Reports system reviewed and no additional complaints, except as docu Psychiatric: Reports no additional psychiatric complaints Endocrine: Reports no additional endocrine complaints Hematologic/Lymphatic: Reports no additional hematologic/lymphatic complaints Allergic/Immunologic: Reports no additional allergic/immunologic complaints Reports system reviewed and no additional complaints, except as documented and Reports Abnormal speech present [facility] Past Medical History Medical History Acute promyelocytic leukemia Anxiety Asthma Chronic cholecystitis Chronic idiopathic constipation Colitis Crohn disease Depression Diabetes 1.5, managed as type 1 Diarrhea Elevated serum glutamic pyruvic transaminase (SGPT) level H/O flexible sigmoidoscopy Hypertension Kidney disease Left sided abdominal pain Renal stones Thalamic pain syndrome (hyperesthetic) Surgical History H/O lithotripsy H/O rectal sphincterotomy History of cholecystectomy History of colonoscopy History of hemorrhoidectomy Social History Social History Household Members: Children Housing: Apartment Do you presently have visiting nurse or other home services: No Alcohol intake: never Patient Tobacco Use Status: Never used Tobacco Use of substances other than those prescribed or required for medical reasons: No Advance Directives: Yes Advance Directives on File: Yes Advance Directives Date on File: 02/15/21 service: No Current occupational status: disabled Physical Exam Vital Signs: Vital Signs: Last Vital Signs Temp 97 F 04/02/21 08:09 Pulse 100 04/02/21 08:09 Resp 18 04/02/21 08:09 BP 130/95 H 04/02/21 08:09 Pulse Ox 98 04/02/21 08:09 Body Mass Index 30.4 Vital signs have been reviewed as appeared to be correct. Blood pressure normal. Heart rate normal. Respiration rate normal. Temperature normal. Oxygen saturation normal. Appearance: Alert. Oriented X3. No acute distress. Head: Normal external exam. Normocephalic. Atraumatic. No Mejia signs noted. No raccoon eyes noted Eyes: PERRLA. EOMI. Conjunctiva and sclera normal. Eyelids normal. ENT: TM's Normal. Pharynx normal. Uvula midline. Moist mucous membranes. No trismus noted. No drooling noted. No muffled voice noted. Neck: Normal inspection. Neck supple. FROM. No adenopathy. Thyroid Normal. No meningeal signs. No neck mass noted. CVS: Normal heart rate and rhythm. Heart sound normal. No murmurs noted. Pulses normal throughout. Respiratory: No respiratory distress. Painless inspiration. Breath sounds normal. No wheezes/rales/rhonchi noted. Chest nontender. No accessory muscle usage noted or decreased air movement noted. Abdomen: Soft and nontender. Bowel sounds normal in all 4 quadrants. No distention noted. No organomegaly noted. No visible injury noted. Back: No CVA tenderness. Full range of motion noted. Skin: Skin warm and dry. Normal skin color. Normal skin turgor. No rashes/lesions/lacerations noted. Extremities: No lower extremity edema. Extremities exhibit normal range of motion. Extremities nontender. Neuro: Oriented X 3. Cranial nerve exam: II-XII are grossly intact No motor deficit. No sensory deficit. Reflexes normal. Course Course Course Narrative: 60-year-old male with history of ulcerative colitis came in with bloody stool, CT/labs are unremarkable with indication of acute flare of colitis, patient hemodynamically stable. Will admit for GI bleeding. MDM - GI Bleed Lab Data Attestation: I reviewed the patient's lab results. Result diagrams: 04/02/21 08:42 04/02/21 08:42 Labs: Lab Results 04/02/21 04/02/21 04/02/21 Range/Units 08:42 08:42 08:42 WBC 11.5 H (4.8-10.8) X10*3/uL RBC 4.07 L (4.60-5.80) X10*6/uL Hgb 10.5 L (14.0-18.0) g/dl Hct 35.0 L (42-52) % MCV 86.0 (80-98) fL MCH 25.8 L (27.0-33.0) pg MCHC 30.0 L (31.0-36.0) g/dl RDW 18.6 H (11.0-16.0) % Plt Count 406 H (160-400) X10*3/uL MPV 8.0 L (9.4-12.4) fL Immature Gran % (Auto) 0.9 H (0.0-0.4) % Neut % (Auto) 74.5 H (45-73) % Lymph % (Auto) 16.8 L (20-40) % [place] % (Auto) 7.4 (2-11) % Eos % (Auto) 0.3 (0-4) % Baso % (Auto) 0.1 (0-2) % Lymph # (Auto) 1.9 (1.2-4.9) X10*3/uL [place] # (Auto) 0.9 (0.1-1.2) X10*3/uL Eos # (Auto) 0.0 (0.0-0.4) X10*3/uL Baso # (Auto) 0.0 (0.0-0.2) X10*3/uL Abs Immat Gran (auto) 0.10 H (0.00-0.03) X10*3/uL Absolute Neuts (auto) 8.6 H (2.0-8.3) X10*3/uL Absolute Nucleated RBC 0.000 (0.0-0.012) X10*3/uL Nucleated RBC % (auto) 0.0 (0.0-0.2) /100WBC Sodium 137 (135-145) mmol/L Potassium 4.3 (3.3-5.1) mmol/L Chloride 104 (96-108) mmol/L Carbon Dioxide 25 (22-29) mmol/L Anion Gap 12 (12-20) BUN 20 H D (9-16) mg/dL Creatinine 0.90 (0.5-1.4) mg/dL Estim Creat Clear Calc 114.3 Estimated GFR > 60 Random Glucose 95 (60-115) mg/dL Lactic Acid 1.3 (0.5-2.0) mmol/L Calcium 8.8 D (8.4-10.2) mg/dL Total Bilirubin 0.3 (0.0-1.0) mg/dL Direct Bilirubin < 0.2 (0.0-0.5) mg/dL AST 10 (5-37) U/L ALT 15 (0-40) U/L Alkaline Phosphatase 55 (39-117) U/L Total Protein 5.8 L (6.5-8.0) g/dL Albumin 3.5 (3.5-5.0) g/dL Lipase 51 (8-78) U/L Urine Color Urine Appearance Urine pH (5.0-8.0) Ur Specific [place] (1.005-1.025) Urine Protein (NEG-TRACE) MG/DL Urine Glucose (UA) (NEG) MG/DL Urine Ketones (NEG) MG/DL Urine Blood (NEG) Urine Nitrite (NEG) Ur Leukocyte Esterase (NEG) Urine RBC (0) /HPF Urine WBC (0-4) /HPF Ur Squamous Epith Cells /LPF Urine Bacteria /LPF Stool Occult Blood (NEGATIVE) COVID-19 (KRISTOPHER) (Negative) COVID-19 Clin Com 04/02/21 04/02/21 04/02/21 Range/Units 08:47 08:58 08:58 WBC (4.8-10.8) X10*3/uL RBC (4.60-5.80) X10*6/uL Hgb (14.0-18.0) g/dl Hct (42-52) % MCV (80-98) fL MCH (27.0-33.0) pg MCHC (31.0-36.0) g/dl RDW (11.0-16.0) % Plt Count (160-400) X10*3/uL MPV (9.4-12.4) fL Immature Gran % (Auto) (0.0-0.4) % Neut % (Auto) (45-73) % Lymph % (Auto) (20-40) % [place] % (Auto) (2-11) % Eos % (Auto) (0-4) % Baso % (Auto) (0-2) % Lymph # (Auto) (1.2-4.9) X10*3/uL [place] # (Auto) (0.1-1.2) X10*3/uL Eos # (Auto) (0.0-0.4) X10*3/uL Baso # (Auto) (0.0-0.2) X10*3/uL Abs Immat Gran (auto) (0.00-0.03) X10*3/uL Absolute Neuts (auto) (2.0-8.3) X10*3/uL Absolute Nucleated RBC (0.0-0.012) X10*3/uL Nucleated RBC % (auto) (0.0-0.2) /100WBC Sodium (135-145) mmol/L Potassium (3.3-5.1) mmol/L Chloride (96-108) mmol/L Carbon Dioxide (22-29) mmol/L Anion Gap (12-20) BUN (9-16) mg/dL Creatinine (0.5-1.4) mg/dL Estim Creat Clear Calc Estimated GFR Random Glucose (60-115) mg/dL Lactic Acid (0.5-2.0) mmol/L Calcium (8.4-10.2) mg/dL Total Bilirubin (0.0-1.0) mg/dL Direct Bilirubin (0.0-0.5) mg/dL AST (5-37) U/L ALT (0-40) U/L Alkaline Phosphatase (39-117) U/L Total Protein (6.5-8.0) g/dL Albumin (3.5-5.0) g/dL Lipase (8-78) U/L Urine Color YELLOW Urine Appearance CLOUDY Urine pH 5.5 (5.0-8.0) Ur Specific [place] 1.020 (1.005-1.025) Urine Protein TRACE (NEG-TRACE) MG/DL Urine Glucose (UA) NEG (NEG) MG/DL Urine Ketones NEG (NEG) MG/DL Urine Blood 3+ H (NEG) Urine Nitrite NEG (NEG) Ur Leukocyte Esterase NEG (NEG) Urine RBC TNTC H (0) /HPF Urine WBC 0-2 (0-4) /HPF Ur Squamous Epith Cells TRACE /LPF Urine Bacteria NONE /LPF Stool Occult Blood POSITIVE (NEGATIVE) COVID-19 (KRISTOPHER) Negative (Negative) COVID-19 Clin Com See Note Imaging Data CT scan - abdomen: Radiologist's impression: No evidence of active colitis. Chronic changes of ulcerative colitis in the distal colon similar to prior exams. Multiple bilateral renal stones.? Discharge Plan Discharge Clinical Impression: GI bleed Patient Disposition: Admitted As Inpatient Prescriptions: No Action sucralfate 1 gram tablet 1 g PO BID Qty: 180 RF: 1 glyburide 5 mg tablet 5 mg PO BID RF: 0 mirtazapine 30 mg tablet 30 mg PO BEDTIME RF: 0 lisinopril 5 mg tablet 5 mg PO DAILY RF: 0 folic acid 1 mg tablet 1 tab PO DAILY RF: 0 paroxetine HCl 40 mg tablet 40 mg PO DAILY RF: 0 prednisone 10 mg tablet 4 tab PO QAM RF: 0 melatonin 5 mg tablet 1 tab PO BEDTIME PRN (Reason: Insomnia) RF: 0 hydroxyzine pamoate 50 mg capsule 2 cap PO BEDTIME PRN (Reason: Anxiety) RF: 0 acetaminophen 500 mg Tablet 1,000 mg PO DAILY RF: 0 docusate sodium 100 mg Capsule 100 mg PO DAILY PRN (Reason: Constipation) RF: 0 Stelara 90 mg/mL Syringe 90 mg SUBCUT Q8W RF: 0 Nucynta ER 50 mg tablet extended release 12 hr 50 mg PO DAILY Qty: 30 RF: 0 Xeljanz 10 mg tablet 10 mg PO DAILY RF: 0
[2021-04-02 08:47] LABS: MANUAL DIFF FLAG NO
[2021-04-02 08:48] LABS: Basophils Percent Auto 0.1 % (0-2); Eosinophils Percent Auto 0.3 % (0-4); Hemoglobin 10.5 g/dl (14.0-18.0); Imm Gran Pct Auto 0.9 % (0.0-0.4); Lymphocytes Absolute Auto 1.9 X10*3/uL (1.2-4.9); Lymphocytes Percent Auto 16.8 % (20-40); Mean Corpuscular Hemoglobin 25.8 pg (27.0-33.0); Monocytes Absolute Auto 0.9 X10*3/uL (0.1-1.2); Monocytes Percent Auto 7.4 % (2-11); Neutrophils Absolute Auto 8.6 X10*3/uL (2.0-8.3); Neutrophils Percent Auto 74.5 % (45-73); Platelet Count 406 X10*3/uL (160-400); Red Blood Count 4.07 X10*6/uL (4.60-5.80); Red Cell Distribution Width 18.6 % (11.0-16.0); White Blood Count 11.5 X10*3/uL (4.8-10.8)
[2021-04-02] MEDS: 0.9 % Sodium Chloride 1,000 ML 999 ML IVCONT (08:57)
[2021-04-02 08:58] LABS: Lactic Acid 1.3 mmol/L (0.5-2.0)
[2021-04-02 09:05] LABS: OBS Int Ctl Valid YES; OBS1 POSITIVE (NEGATIVE)
[2021-04-02 09:08] LABS: Appearance Urine CLOUDY; Color Urine YELLOW; Glucose Urine UA NEG (NEG); Leukocyte Esterase Urine NEG (NEG); Nitrite Urine NEG (NEG); PH 5.5 (5.0-8.0); UACC Culture Trigger NO; Urine Blood 3+ (NEG); Urine Ketones NEG (NEG); Urine Protein TRACE MG/DL (NEG-TRACE)
[2021-04-02 09:09] LABS: Alanine Aminotransferase 15 U/L (0-40); Albumin Level 3.5 g/dL (3.5-5.0); Alkaline Phosphatase 55 U/L (39-117); Anion Gap 12 (12-20); Aspartate Amino Transferase 10 U/L (5-37); Bilirubin Direct < 0.2 mg/dL (0.0-0.5); Bilirubin Total 0.3 mg/dL (0.0-1.0); Blood Urea Nitrogen 20 mg/dL (9-16); Calcium 8.8 mg/dL (8.4-10.2); Carbon Dioxide 25 mmol/L (22-29); Chloride 104 mmol/L (96-108); Creatinine Clr Calc Pharmacy 114.3; Estimated Glomerular Filt Rate > 60; Glucose Random 95 mg/dL (60-115); Lipase 51 U/L (8-78); Potassium 4.3 mmol/L (3.3-5.1); Sodium 137 mmol/L (135-145); Total Protein 5.8 g/dL (6.5-8.0)
[2021-04-02 09:17] LABS: RBC Urine TNTC /HPF (0); Squamous Epithelial Cell Urine TRACE /LPF; WBC Urine 0-2 /HPF (0-4)
[2021-04-02 09:22] LABS: COVID-19 Test Negative (Negative); IDNOW Serial# 9DD0AD1C
--- NOTE | 2021-04-02 10:00 | PHA.MEDREC ---
Pharmacy Consult ? Medication Reconciliation Pharmacy has completed the medication reconciliation. Silvia LeD
[2021-04-02] MEDS: Lactated Ringers 1,000 ML 100 ML IVCONT (12:23)
--- NOTE | 2021-04-02 12:34 | PM.IMHP ---
History of Present Illness Date of Service: 04/02/21 Chief Complaint: Bright red blood per rectum, bilateral flank pain This is a 60 yo M with a PMH of Crohn's (follwing at [facility]) who has failed multiple treatment modalities and is not onw Stelara (+tapering dose of prednisone, currently on 40mg) presents to the ED with complaints of sudden onset bilateral flank pain and bright red blood per rectum which began on the day prior to admission. He denies any abdominal pain, nausea, vomiting or constipation / straining. He reports that he has 3 bouts of rectal bleeding, the last one being on the morning of ED arrival. He denies any fevers or chills. He denies any sick contacts. He does endorse eating soup with cabbage which he does not normally do. He denies any dysuria, urgency or frequency. He denies any alexia hematuria. Patients work up in the ED showed a CBD with mild leukocytosis, h/h -- which was improved from [address] scan of the abdomen and pelvis did not show any active colitis, but did show chronic findings along with multiple bilatearal renal stones. His rectal exam was positive for blood. He was given a 1L IVF and will be admitted for observation. Review of Systems Review of Systems: all other systems reviewed and negative except for what is mentioned in the [facility] Medical History Acute promyelocytic leukemia Anxiety Asthma Chronic cholecystitis Chronic idiopathic constipation Colitis Crohn disease Depression Diabetes 1.5, managed as type 1 Diarrhea Elevated serum glutamic pyruvic transaminase (SGPT) level H/O flexible sigmoidoscopy Hypertension Kidney disease Left sided abdominal pain Renal stones Thalamic pain syndrome (hyperesthetic) Pertinent family history: DM + CAD in mother Surgical History H/O lithotripsy H/O rectal sphincterotomy History of cholecystectomy History of colonoscopy History of hemorrhoidectomy Social History Household Members: Children Housing: Apartment Do you presently have visiting nurse or other home services: No Alcohol intake: never Patient Tobacco Use Status: Never used Tobacco Use of substances other than those prescribed or required for medical reasons: No Advance Directives: Yes Advance Directives on File: Yes Advance Directives Date on File: 02/15/21 service: No Current occupational status: disabled Meds Allergies Allergy/AdvReac Type Severity Reaction Status Date / Time No Known Allergies Allergy Verified 03/05/21 14:08 [No Known Allergies*] none Allergy Unknown Unknown Uncoded 03/05/21 14:08 Active Medications: Current Medications Acetaminophen (Acetaminophen 325 Mg Tablet) 650 mg PO Q6H PRN PRN Reason: Pain, Mild (Pain Scale 1-3) Lactated Ringer's (Lr) 1,000 mls @ 100 mls/hr IVCONT .Q10H [facility] Last Admin: 04/02/21 12:23 Dose: 100 mls/hr Documented by: Morphine Sulfate (Morphine Sulfate 4 Mg/Ml Cartridge) 4 mg IVPUSH Q4H PRN; Protocol PRN Reason: Pain, Severe (Pain Scale 7-10) Pharmacy Consult (Consult Rx Perform Med Rec) 1 each MISCELLANE ONCE PRN PRN Reason: Consult order Sodium Chloride (0.9 % Sodium Chloride Flush 3 Ml Syringe) 3 ml IVFLUSH QSHIFT [facility] Home Medications Medication Instructions Recorded Confirmed Last Taken Type glyburide 5 mg tablet 5 mg PO BID 03/22/20 04/02/21 04/02/21 History lisinopril 5 mg tablet 5 mg PO DAILY 03/22/20 04/02/21 04/02/21 History mirtazapine 30 mg tablet 30 mg PO BEDTIME 03/22/20 04/02/21 04/01/21 History tofacitinib 10 mg tablet (Xeljanz) 10 mg PO DAILY 08/18/20 04/02/21 04/01/21 History folic acid 1 mg tablet 1 tab PO DAILY 02/14/21 04/02/21 04/01/21 History melatonin 5 mg tablet 1 tab PO BEDTIME PRN 02/14/21 04/02/21 Unknown History paroxetine HCl 40 mg tablet 40 mg PO DAILY 02/14/21 04/02/21 04/01/21 History prednisone 10 mg tablet 4 tab PO QAM 02/14/21 04/02/21 04/01/21 History acetaminophen 500 mg tablet 1,000 mg PO DAILY 04/02/21 04/02/21 04/02/21 History docusate sodium 100 mg capsule 100 mg PO DAILY PRN 04/02/21 04/02/21 Unknown History hydroxyzine pamoate 50 mg capsule 2 cap PO BEDTIME PRN 04/02/21 04/02/21 Unknown History ustekinumab 90 mg/mL subcutaneous 90 mg SUBCUT Q8W 04/02/21 04/02/21 Unknown History syringe (Kemarlara) Physical Exam Vital Signs and Narrative: Vital Signs: Last Vital Signs Temp 97 F 04/02/21 08:09 Pulse 100 04/02/21 08:09 Resp 18 04/02/21 08:09 BP 130/95 H 04/02/21 08:09 Pulse Ox 98 04/02/21 08:09 Body Mass Index 30.4 Const: Other: Constitutional - Awake and Alert, No apparent distress Eyes - PERRLA, EOMI Cardiovascular - S1S2, RRR, No edema Respiratory - Normal lung expansion, Normal respiratory effort, No respiratory distress, CTA bilaterally Gastrointestinal - NT / ND; +BS; No rebound or guarding - bilateral CVA TTP Extremities - no calf tenderness bilaterally, no swelling Musculoskeletal - Normal inspection, normal ROM Skin - Warm/Dry Neurological - Alert & oriented x3, No focal deficit Psychological - Appropriate affect Results Labs CBC and Chem 7: 04/02/21 08:42 04/02/21 08:42 Labs: Laboratory Results - last 24 hr 04/02/21 04/02/21 04/02/21 08:42 08:42 08:42 MCV 86.0 MCH 25.8 L MCHC 30.0 L RDW 18.6 H Plt Count 406 H MPV 8.0 L Immature Gran % (Auto) 0.9 H Neut % (Auto) 74.5 H Lymph % (Auto) 16.8 L [place] % (Auto) 7.4 Eos % (Auto) 0.3 Baso % (Auto) 0.1 Lymph # (Auto) 1.9 [place] # (Auto) 0.9 Eos # (Auto) 0.0 Baso # (Auto) 0.0 Abs Immat Gran (auto) 0.10 H Absolute Neuts (auto) 8.6 H Absolute Nucleated RBC 0.000 Nucleated RBC % (auto) 0.0 Anion Gap 12 Estim Creat Clear Calc 114.3 Estimated GFR > 60 Random Glucose 95 Lactic Acid 1.3 Calcium 8.8 D Total Bilirubin 0.3 Direct Bilirubin < 0.2 AST 10 ALT 15 Alkaline Phosphatase 55 Total Protein 5.8 L Albumin 3.5 Lipase 51 Urine Color Urine Appearance Urine pH Ur Specific [place] Urine Protein Urine Glucose (UA) Urine Ketones Urine Blood Urine Nitrite Ur Leukocyte Esterase Urine RBC Urine WBC Ur Squamous Epith Cells Urine Bacteria Stool Occult Blood COVID-19 ([facility]) COVID-19 Clin Com 04/02/21 04/02/21 04/02/21 08:47 08:58 08:58 MCV MCH MCHC RDW Plt Count MPV Immature Gran % (Auto) Neut % (Auto) Lymph % (Auto) [place] % (Auto) Eos % (Auto) Baso % (Auto) Lymph # (Auto) [place] # (Auto) Eos # (Auto) Baso # (Auto) Abs Immat Gran (auto) Absolute Neuts (auto) Absolute Nucleated RBC Nucleated RBC % (auto) Anion Gap Estim Creat Clear Calc Estimated GFR Random Glucose Lactic Acid Calcium Total Bilirubin Direct Bilirubin AST ALT Alkaline Phosphatase Total Protein Albumin Lipase Urine Color YELLOW Urine Appearance CLOUDY Urine pH 5.5 Ur Specific [place] 1.020 Urine Protein TRACE Urine Glucose (UA) NEG Urine Ketones NEG Urine Blood 3+ H Urine Nitrite NEG Ur Leukocyte Esterase NEG Urine RBC TNTC H Urine WBC 0-2 Ur Squamous Epith Cells TRACE Urine Bacteria NONE Stool Occult Blood POSITIVE COVID-19 ([facility]STOPHER) Negative COVID-19 Clin Com See Note Imaging Radiologist's Impressions: Impressions Abdomen/Pelvis CT 04/02/21 08:32 IMPRESSION: No evidence of active colitis. Chronic changes of ulcerative colitis in the distal colon similar to prior exams. Multiple bilateral renal stones. Assessment and Plan (1) GI bleed: Status: Acute This is a 60 yo M with a PMH of Crohn's (mainly Colitis), currently on Stelara and tapering prednisone who presents to the hospital with complaints of BRBPR and bilalateral flank pain for 1 day duration. His work up in the ED which included a CBCD (+other routine labs) and CT scan reveals no active GI disease. He does have bilateral renal stones seen on CT. 1. Bright Red blood per rectum, acute on chronic blood loss anemia 1a. History of Crohn's Patients H/H today is better than previously check. Symptoms could be related to eating cabbage which he does not generally eat For now -- will monitor H/H; If it declines further, will consult GI. Do not think he needs increased dose of steroids as this does not appear to be a Crohn's flare up. continue his baseline prednisone, resume Stelara as outpatient 2. Bilateral Flank pain 2a. Nephrolithiasis largest stone is 4mm upper R pole and 3mm lower L pole UA is positive for microscopic hematuria there is not evidence of obstruction / hydronephrosis per imaging observe Gentle hydration 3. DM hold oral meds using sliding scale clear liquids for now, advance as tolerated 4. HTN continue baseline meds Full Code DVT pptx -- Mechanical due to GI bleed Quality Stroke Does the patient have a stroke diagnosis?: No VTE Prior VTE?: No VTE Risk Level:: Medical - moderate - high VTE Device Contraindication: N/A - Device Ordered VTE Drug Contraindication: Treatment Not Indicated
[2021-04-02 13:57] LABS: Hematocrit 32.9 % (42-52); Hemoglobin 9.9 g/dl (14.0-18.0)
--- NOTE | 2021-04-02 14:26 | PC.NURSE ---
first call for report unsuccessful
--- NOTE | 2021-04-02 14:39 | PC.NURSE ---
report given to kiko callaway
[2021-04-02 16:00] VITALS: BP 128/64; PULSE 88; RESP 17; TEMP 36; O2SAT 99
[2021-04-02 16:42] LABS: Glucose, Whole Blood 60 mg/dL (60-115)
[2021-04-02 17:33] LABS: Glucose, Whole Blood 123 mg/dL (60-115)
[2021-04-02 20:02] VITALS: BP 115/58; PULSE 97; RESP 16; TEMP 36.1; O2SAT 97
[2021-04-02 20:23] LABS: Glucose, Whole Blood 171 mg/dL (60-115)
[2021-04-02] MEDS: Sucralfate 1 GM TABLET PO (20:58)
[2021-04-02] MEDS: Insulin Lispro 100 UNIT/ML 3 ML VIAL SUBCUT (20:58)
[2021-04-02] MEDS: Mirtazapine 30 MG TABLET PO (20:58)
[2021-04-02 23:47] VITALS: BP 109/55; PULSE 95; RESP 17; TEMP 36.4; O2SAT 99
[2021-04-03] MEDS: Lactated Ringers 1,000 ML 100 ML IVCONT (02:59)
[2021-04-03 06:53] LABS: Hematocrit 35.2 % (42-52); Hemoglobin 10.6 g/dl (14.0-18.0); Mean Corpuscular HGB Conc 30.1 g/dl (31.0-36.0); Mean Corpuscular Hemoglobin 25.6 pg (27.0-33.0); Mean Platelet Volume 8.7 fL (9.4-12.4); Platelet Count 431 X10*3/uL (160-400); Red Blood Count 4.14 X10*6/uL (4.60-5.80); Red Cell Distribution Width 18.6 % (11.0-16.0); White Blood Count 10.9 X10*3/uL (4.8-10.8)
[2021-04-03 07:09] VITALS: BP 119/68; PULSE 91; RESP 18; TEMP 36.3; O2SAT 96
[2021-04-03 07:19] LABS: Anion Gap 12 (12-20); Blood Urea Nitrogen 10 mg/dL (9-16); Calcium 8.3 mg/dL (8.4-10.2); Carbon Dioxide 26 mmol/L (22-29); Chloride 102 mmol/L (96-108); Creatinine Clr Calc Pharmacy 118.2; Estimated Glomerular Filt Rate > 60; Glucose Random 108 mg/dL (60-115); Potassium 4.4 mmol/L (3.3-5.1); Sodium 136 mmol/L (135-145)
[2021-04-03 07:43] LABS: Glucose, Whole Blood 107 mg/dL (60-115)
[2021-04-03] MEDS: Folic Acid 1 MG TABLET PO (08:50)
[2021-04-03] MEDS: predniSONE 20 MG TABLET 40 MG PO (08:51)
[2021-04-03] MEDS: 0.9 % Sodium Chloride Flush 3 ML SYRINGE IVFLUSH (08:51)
[2021-04-03] MEDS: PARoxetine HCL 40 MG TABLET PO (08:51)
[2021-04-03] MEDS: Sucralfate 1 GM TABLET PO (08:51)
[2021-04-03] MEDS: glyBURIDE 5 MG TABLET PO (08:51)
--- NOTE | 2021-04-03 10:04 | MHC.CM.PN ---
PATIENT LIVES WITH HIS ADULT SON. HE USES NO DME OR VNA SERVICES. CAR IS IN LOT. HE IS UNSURE IF HE WILL BE ABLE TO DRIVE SELF HOME AND WILL ASK FOR ASSISTANCE IF NEEDED. PATIENT ASSIGNS A HCP DOCUMENT, NAMING HIS SISTER AND BROTHER. COPY UPLOADED INTO [employer] AND PLACED IN PAPER CHART. GARCES 04/03 IN CHART.
--- NOTE | 2021-04-03 10:19 | P.DS_ITS ---
DS: Providers Provider Date of Service: 04/03/21 Date of admission: 04/02/21 12:07 Primary care physician: Luke Kamara MD Attending physician on discharge: Andrew Hernandez Discharging clinician: Meliza St DS: Diagnosis Discharge Diagnosis (1) GI bleed: Status: Acute DS: Summary Hospital Course Hospital Course: HP as per admitting provider This is a 60 yo M with a PMH of Crohn's (follwing [place] [facility]) who has failed multiple treatment modalities and is not onw Stelara (+tapering dose of prednisone, currently on 40mg) presents to the ED with complaints of sudden onset bilateral flank pain and bright red blood per rectum which began on the day prior to admission. He denies any abdominal pain, nausea, vomiting or constipation / straining. He reports that he has 3 bouts of rectal bleeding, the last one being on the morning of ED arrival. He denies any fevers or chills. He denies any sick contacts. He does endorse eating soup with cabbage which he does not normally do. He denies any dysuria, urgency or frequency. He denies any alexia hematuria. Patients work up in the ED showed a CBD with mild leukocytosis, h/h -- which was improved from [address] scan of the abdomen and pelvis did not show any active colitis, but did show chronic findings along with multiple bilatearal renal stones. His rectal exam was positive for blood. He was given a 1L IVF and will be admitted for observation . GI bleed. Patient had bright red per rectum with acute on chronic blood-loss anemia. He has a history Crohn's disease but did not appear to be flare. Patient reported eating 17 May not have agreed with him and he did have some bleeding however today he has had no further bleeding episodes and his hemoglobin and hematocrit remained stable. He will be discharged home today in follow-up with his central office frame wirer and continue his home dose of steroids. He also had some bilateral flank pain with no evidence obstruction, hydronephrosis as per imaging. Time Spent with Patient Time attestation: Total time spent providing and/or coordinating discharge services: Discharge coordination time: Greater than 30 minutes Quality: Stroke Does the patient have a stroke diagnosis?: No Physical Exam Vital Signs: Vital Signs: Last Vital Signs Temp 97.4 F 04/03/21 07:09 Pulse 91 04/03/21 07:09 Resp 18 04/03/21 07:09 BP 119/68 04/03/21 07:09 Pulse Ox 96 04/03/21 07:09 Body Mass Index 30.4 Appearing in no acute distress head is normocephalic atraumatic eyes pupils are PERRLA sclera is anicteric mouth throat mucous membranes are intact and moist neck is supple no lymphadenopathy, no JVD noted lung sounds are clear to auscultation heart regular rate rhythm, clear S1, S2 positive bowel sounds, abdomen is soft, nontender neuro patient is alert x3, no focal deficits DS: Data Data Completed and Pending Labs on day of discharge: Laboratory Results - last 24 hr 04/02/21 04/02/21 04/02/21 13:47 16:38 17:26 WBC RBC Hgb 9.9 L Hct 32.9 L MCV MCH MCHC RDW Plt Count MPV Absolute Nucleated RBC Nucleated RBC % (auto) Sodium Potassium Chloride Carbon Dioxide Anion Gap BUN Creatinine Estim Creat Clear Calc Estimated GFR POC Glucose 60 123 H Random Glucose Calcium 04/02/21 04/03/21 04/03/21 20:19 05:52 05:52 WBC 10.9 H RBC 4.14 L Hgb 10.6 L Hct 35.2 L MCV 85.0 MCH 25.6 L MCHC 30.1 L RDW 18.6 H Plt Count 431 H MPV 8.7 L Absolute Nucleated RBC 0.000 Nucleated RBC % (auto) 0.0 Sodium 136 Potassium 4.4 Chloride 102 Carbon Dioxide 26 Anion Gap 12 BUN 10 Creatinine 0.87 Estim Creat Clear Calc 118.2 Estimated GFR > 60 POC Glucose 171 H Random Glucose 108 Calcium 8.3 L 04/03/21 07:08 WBC RBC Hgb Hct MCV MCH MCHC RDW Plt Count MPV Absolute Nucleated RBC Nucleated RBC % (auto) Sodium Potassium Chloride Carbon Dioxide Anion Gap BUN Creatinine Estim Creat Clear Calc Estimated GFR POC Glucose 107 Random Glucose Calcium Discharge Plan Discharge Anticipated Discharge Date/Time: 04/03/21 10:13 Patient Disposition: Home, Self-Care Discharge Diagnosis: GI bleed Referrals: Luke Kamara MD [Primary Care Provider] - 1 Week Discharge Medications: Continued sucralfate 1 gram tablet 1 g PO BID Qty: 180 RF: 1 glyburide 5 mg tablet 5 mg PO BID RF: 0 mirtazapine 30 mg tablet 30 mg PO BEDTIME RF: 0 lisinopril 5 mg tablet 5 mg PO DAILY RF: 0 folic acid 1 mg tablet 1 tab PO DAILY RF: 0 paroxetine HCl 40 mg tablet 40 mg PO DAILY RF: 0 prednisone 10 mg tablet 4 tab PO QAM RF: 0 melatonin 5 mg tablet 1 tab PO BEDTIME PRN (Reason: Insomnia) RF: 0 hydroxyzine pamoate 50 mg capsule 2 cap PO BEDTIME PRN (Reason: Anxiety) RF: 0 acetaminophen 500 mg Tablet 1,000 mg PO DAILY RF: 0 docusate sodium 100 mg Capsule 100 mg PO DAILY PRN (Reason: Constipation) RF: 0 Stelara 90 mg/mL Syringe 90 mg SUBCUT Q8W RF: 0 Nucynta ER 50 mg tablet extended release 12 hr 50 mg PO DAILY Qty: 30 RF: 0 Xeljanz 10 mg tablet 10 mg PO DAILY RF: 0 Discharge Orders: Discharge Order (Routine); Ordered 04/03/21 Ordered By: Melzia St Diet: advance to usual diet Activity on Discharge: As tolerated Stand Alone Forms: Patient Portal Discharge page Care Plan Goals: No further episodes of bleeding Health Concerns: GI Bleed Plan of Treatment: Follow up with your central office frame wirer as needed Assessment: See discharge summary
--- NOTE | 2021-04-03 10:24 | MHC.CM.PN ---
PATIENT IS DISCHARGED HOME - SELF CARE. IF HE NEEDS ASSISTANCE WITH TRANSPORT, HE WILL NOTIFY RN. CASE MANAGEMENT AVAILABLE IF NEEDED.
[2021-04-03 11:39] LABS: Glucose, Whole Blood 141 mg/dL (60-115)
== END 2021-04-03 13:15 | disposition home or self-care (01) ==
LOC: HO.ED 11:16 → HO.EDOVER 12:16 → HO.S3 13:54
PROVIDERS: Admitting Provider Family Medicine; Emergency Provider Emergency Medicine; PCP Internal Medicine; Visit Provider Nurse Practitioner Acute Care
DX: K92.2 Gastrointestinal hemorrhage, unspecified (principal); R10.9 Unspecified abdominal pain; N20.0 Calculus of kidney; Z90.49 Acquired absence of other specified parts of digestive tract; Z79.899 Other long term (current) drug therapy; Z20.822 Contact with and (suspected) exposure to COVID-19
CPT/HCPCS: 36415; 74176; 80048; 80076; 81001; 82272; 82947; 83605; 83690; 85014; 85018; 85025; 85027; 87040; 87635; 96360; 96361; 99218; 99285

== ENCOUNTER 2021-04-30 17:29 | Emergency (ER) | payer MEDICARE, MEDICAID, SELFPAY ==
--- NOTE | ~2021-04-30 | XR_ITS ---
EXAMINATION: XR CHEST CLINICAL INFORMATION: Rib pain after fall COMPARISON: CT abdomen pelvis 04/02/2021, chest radiograph 01/19/2018 TECHNIQUE: 2 views of the chest were obtained. FINDINGS: Right hemidiaphragm elevation, unchanged. Right basilar atelectasis, similar to the prior study. No new or increasing focal consolidation, pleural effusion or pneumothorax. Heart size is normal. Interval removal of a right chest port. T10 compression fracture, new since 04/02/2021. No acute displaced rib fracture identified. XR/XR chest 2V IMPRESSION: -There is a T10 compression fracture that is new since 04/02/2021. Recommend correlation for point tenderness to help assess acuity. Consider MRI for problem solving. -No acute displaced rib fracture is identified, however evaluation of the ribs is limited without a dedicated rib series. -Chronic right hemidiaphragm elevation and atelectasis of the lower lung.
[2021-04-30 21:10] VITALS: BP 144/71; PULSE 109; RESP 20; TEMP 36.7; O2SAT 97; BMI 31.7
--- NOTE | 2021-04-30 21:50 | ED.FALL ---
HPI - Fall General Chief Complaint: Fall Stated Complaint: Fall/Rib pain Time Seen by Provider: 04/30/21 19:21 Source: patient Mode of arrival: ambulatory Limitations: no limitations History of Present Illness HPI Narrative: 60-year-old male came in for evaluation after in mechanical fall. Patient fell earlier today was trying to open the door missed a step causing him to try and fall landed on his right side. Patient is complaining of right chest wall pain, no head injury, no LOC, No neck pain, no extremity pain. no nausea, no vomiting. Related Data Home Medications Medication Instructions Recorded Confirmed glyburide 5 mg tablet 5 mg PO BID 03/22/20 04/02/21 lisinopril 5 mg tablet 5 mg PO DAILY 03/22/20 04/02/21 mirtazapine 30 mg tablet 30 mg PO BEDTIME 03/22/20 04/02/21 tofacitinib 10 mg tablet (Xeljanz) 10 mg PO DAILY 08/18/20 04/02/21 folic acid 1 mg tablet 1 tab PO DAILY 02/14/21 04/02/21 melatonin 5 mg tablet 1 tab PO BEDTIME PRN 02/14/21 04/02/21 paroxetine HCl 40 mg tablet 40 mg PO DAILY 02/14/21 04/02/21 prednisone 10 mg tablet 4 tab PO QAM 02/14/21 04/02/21 acetaminophen 500 mg tablet 1,000 mg PO DAILY 04/02/21 04/02/21 docusate sodium 100 mg capsule 100 mg PO DAILY PRN 04/02/21 04/02/21 hydroxyzine pamoate 50 mg capsule 2 cap PO BEDTIME PRN 04/02/21 04/02/21 ustekinumab 90 mg/mL subcutaneous 90 mg SUBCUT Q8W 04/02/21 04/02/21 syringe (Stelara) Previous Rx's Medication Instructions Recorded sucralfate 1 gram tablet 1 g PO BID #180 tab 10/20/20 tapentadol 50 mg tablet,extended 50 mg PO DAILY #30 tab 03/05/21 release,12 hr (Nucynta ER) Allergies Allergy/AdvReac Type Severity Reaction Status Date / Time No Known Allergies Allergy Verified 04/02/21 16:05 [No Known Allergies*] none Allergy Unknown Unknown Uncoded 04/02/21 16:05 Review of Systems Review of Systems: All other systems are reviewed and are negative Constitutional: Reports as per HPI and Reports no additional constitutional complaints Eyes: Reports as per HPI and Reports no additional eye complaints Reports system reviewed and no additional complaints, except as documented Cardiovascular: Reports as per HPI and Reports no additional cardiovascular complaints Respiratory: Reports as per HPI and Reports no additional respiratory complaints Gastrointestinal: Reports as per HPI and Reports no additional gastrointestinal complaints Genitourinary: Reports no additional female genitourinary complaints Musculoskeletal: Reports no additional musculoskeletal complaints Skin/Breast: Reports system reviewed and no additional complaints, except as docu Psychiatric: Reports no additional psychiatric complaints Endocrine: Reports no additional endocrine complaints Hematologic/Lymphatic: Reports no additional hematologic/lymphatic complaints Allergic/Immunologic: Reports no additional allergic/immunologic complaints Reports system reviewed and no additional complaints, except as documented and Reports Abnormal speech present [facility] Past Medical History Medical History Acute promyelocytic leukemia Anxiety Asthma Chronic cholecystitis Chronic idiopathic constipation Colitis Crohn disease Depression Diabetes 1.5, managed as type 1 Diarrhea Elevated serum glutamic pyruvic transaminase (SGPT) level H/O flexible sigmoidoscopy Hypertension Kidney disease Left sided abdominal pain Renal stones Thalamic pain syndrome (hyperesthetic) Surgical History H/O lithotripsy H/O rectal sphincterotomy History of cholecystectomy History of colonoscopy History of hemorrhoidectomy Social History Social History Household Members: Children Housing: Apartment Do you presently have visiting nurse or other home services: No Alcohol intake: never Patient Tobacco Use Status: Never used Tobacco Advance Directives: Yes Advance Directives on File: Yes Advance Directives Date on File: 02/15/21 service: No Current occupational status: disabled Physical Exam Vital Signs: Vital Signs: Last Vital Signs Temp 98.1 F 04/30/21 21:10 Pulse 109 H 04/30/21 21:10 Resp 20 04/30/21 21:10 BP 144/71 H 04/30/21 21:10 Pulse Ox 97 04/30/21 21:10 Body Mass Index 31.7 vital signs have been reviewed as appeared to be correct. Blood pressure Elevated. Heart rate elevated. Respiration rate normal. Temperature normal. Oxygen saturation normal. Appearance: Alert. Oriented X3. No acute distress. Head: Normal external exam. Normocephalic. Atraumatic. No Mejia signs noted. No raccoon eyes noted Eyes: PERRLA. EOMI. Conjunctiva and sclera normal. Eyelids normal. ENT: TM's Normal. Pharynx normal. Uvula midline. Moist mucous membranes. No trismus noted. No drooling noted. No muffled voice noted. Neck: Normal inspection. Neck supple. FROM. No adenopathy. Thyroid Normal. No meningeal signs. No neck mass noted. CVS: Normal heart rate and rhythm. Heart sound normal. No murmurs noted. Pulses normal throughout. Respiratory: No respiratory distress. Painless inspiration. Breath sounds normal. No wheezes/rales/rhonchi noted. Chest Tenderness confined to the left chest wall in the mid axillary line, around ribs 7 to 11. No step-off, no deformity.. No accessory muscle usage noted or decreased air movement noted. Abdomen: Soft and nontender. Bowel sounds normal in all 4 quadrants. No distention noted. No organomegaly noted. No visible injury noted. Back: No CVA tenderness. Full range of motion noted. no back tenderness, no step-off. Skin: Skin warm and dry. Normal skin color. Normal skin turgor. No rashes/lesions/lacerations noted. Extremities: No lower extremity edema. Extremities exhibit normal range of motion. Extremities nontender. Neuro: Oriented X 3. Cranial nerve exam: II-XII are grossly intact No motor deficit. No sensory deficit. Reflexes normal. Course Course Course Narrative: Assessment and plan. 60-year-old male came in after sustained a mechanical fall landed on his right side, complaining of right chest wall, x-ray showing no displaced fracture ribs, however x-ray is showing T10 compression fracture will patient has no complain about his back, and back exam showing no point of tenderness or step-off ( no further diagnostic measures). Patient was tachycardic in the emergency department EKG showing normal sinus rhythm. MDM - Fall Imaging Data Chest x-ray: Radiologist's impression: There is a T10 compression fracture that is new since 04/02/2021. Recommend correlation for point tenderness to help assess acuity. Consider MRI for problem solving. -No acute displaced rib fracture is identified, however evaluation of the ribs is limited without a dedicated rib series. -Chronic right hemidiaphragm elevation and atelectasis of the lower lung. ECG Data Attestation: I personally reviewed and interpreted this ECG as follows: Interpretation: sinus tachycardia at 101 beats per minutes, prolongation of the QRS with RN soon bed turned, nonspecific ST-T changes. Discharge Plan Discharge Clinical Impression: Fall, Chest wall contusion Patient Disposition: Home, Self-Care Instructions: Contusion in Adults (ED) Prescriptions: No Action sucralfate 1 gram tablet 1 g PO BID Qty: 180 RF: 1 glyburide 5 mg tablet 5 mg PO BID RF: 0 mirtazapine 30 mg tablet 30 mg PO BEDTIME RF: 0 lisinopril 5 mg tablet 5 mg PO DAILY RF: 0 folic acid 1 mg tablet 1 tab PO DAILY RF: 0 paroxetine HCl 40 mg tablet 40 mg PO DAILY RF: 0 prednisone 10 mg tablet 4 tab PO QAM RF: 0 melatonin 5 mg tablet 1 tab PO BEDTIME PRN (Reason: Insomnia) RF: 0 hydroxyzine pamoate 50 mg capsule 2 cap PO BEDTIME PRN (Reason: Anxiety) RF: 0 acetaminophen 500 mg Tablet 1,000 mg PO DAILY RF: 0 docusate sodium 100 mg Capsule 100 mg PO DAILY PRN (Reason: Constipation) RF: 0 Stelara 90 mg/mL Syringe 90 mg SUBCUT Q8W RF: 0 Nucynta ER 50 mg tablet extended release 12 hr 50 mg PO DAILY Qty: 30 RF: 0 Xeljanz 10 mg tablet 10 mg PO DAILY RF: 0 Referrals: Luke Kamara MD [Primary Care Provider] - 2 days
--- NOTE | 2021-04-30 21:57 | ECG_ITS ---
Test Reason : FALL Blood Pressure : / mmHG Vent. Rate : 101 BPM Atrial Rate : 101 BPM P-R Int : 126 ms QRS Dur : 122 ms QT Int : 350 ms P-R-T Axes : 030 004 031 degrees QTc Int : 453 ms Sinus tachycardia RSR' or QR pattern in V1 suggests right ventricular conduction delay Borderline ECG When compared with ECG of 10-FEB-2021 07:27, No significant change was found Heart rate has increased Referred By: Vignesh Pryor Electronically Signed By:NAE GONZALEZ MD
[2021-04-30] MEDS: Ibuprofen 800 MG TABLET PO (22:02)
== END 2021-04-30 22:26 | disposition home or self-care (01) ==
PROVIDERS: Emergency Provider Emergency Medicine; PCP Internal Medicine
DX: S20.211A Contusion of right front wall of thorax, initial encounter (principal); W10.8XXA Fall (on) (from) other stairs and steps, initial encounter; Y93.9 Activity, unspecified; Y92.9 Unspecified place or not applicable; Y99.9 Unspecified external cause status
CPT/HCPCS: 71046; 93005; 99283; 99284

== ENCOUNTER 2021-05-13 01:43 | Emergency (ER) | payer MEDICARE, MEDICAID, SELFPAY ==
--- NOTE | ~2021-05-13 | XR_ITS ---
EXAMINATION: XR ELBOW, LEFT CLINICAL INFORMATION: Swelling and pain COMPARISON: None TECHNIQUE: AP, lateral, and bilateral oblique views of the left elbow. FINDINGS: No acute fracture or dislocation. There are degenerative changes at the radiocapitellar joint with prominent marginal ossified is along the radial head. Well-corticated ossific densities present along the lateral aspect of the radiocapitellar joint. 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 Moderate triceps enthesophyte. Possible trace elbow joint effusion. Soft tissue swelling posterior to the elbow. XR/XR elbow LT min 3V IMPRESSION: No acute osseous abnormalities. Chronic and degenerative changes as described. Possible small elbow joint effusion. Soft tissue swelling posterior to the elbow.
[2021-05-13 01:44] VITALS: BP 175/75; PULSE 83; RESP 16; TEMP 36.4; O2SAT 97; BMI 31.8
[2021-05-13 03:09] VITALS: BP 149/62; PULSE 98; RESP 19; O2SAT 95
--- NOTE | 2021-05-13 04:35 | ED.BACK ---
HPI - Back Pain/Injury General Chief Complaint: Back Pain/Injury Stated Complaint: back pain Time Seen by Provider: 05/13/21 02:38 Source: patient Mode of arrival: ambulatory Limitations: no limitations History of Present Illness HPI Narrative: Patient comes to the emergency room complaining of chronic back pain. Patient states that approximately a month to a month and a half patient fell, landed on the left side of his body. Patient states that since then he has bilateral lower back pain. Patient denies fever chills, no urinary symptoms. Patient is worse with movement such as sitting up from laying position. Patient also complaining of left elbow swelling that started approximately 2 days ago Related Data Home Medications Medication Instructions Recorded Confirmed glyburide 5 mg tablet 5 mg PO BID 03/22/20 04/02/21 lisinopril 5 mg tablet 5 mg PO DAILY 03/22/20 04/02/21 mirtazapine 30 mg tablet 30 mg PO BEDTIME 03/22/20 04/02/21 tofacitinib 10 mg tablet (Xeljanz) 10 mg PO DAILY 08/18/20 04/02/21 folic acid 1 mg tablet 1 tab PO DAILY 02/14/21 04/02/21 melatonin 5 mg tablet 1 tab PO BEDTIME PRN 02/14/21 04/02/21 paroxetine HCl 40 mg tablet 40 mg PO DAILY 02/14/21 04/02/21 prednisone 10 mg tablet 4 tab PO QAM 02/14/21 04/02/21 acetaminophen 500 mg tablet 1,000 mg PO DAILY 04/02/21 04/02/21 docusate sodium 100 mg capsule 100 mg PO DAILY PRN 04/02/21 04/02/21 hydroxyzine pamoate 50 mg capsule 2 cap PO BEDTIME PRN 04/02/21 04/02/21 ustekinumab 90 mg/mL subcutaneous 90 mg SUBCUT Q8W 04/02/21 04/02/21 syringe (Stelara) Previous Rx's Medication Instructions Recorded sucralfate 1 gram tablet 1 g PO BID #180 tab 10/20/20 tapentadol 50 mg tablet,extended 50 mg PO DAILY #30 tab 05/11/21 release,12 hr (Nucynta ER) ketorolac 10 mg tablet 10 mg PO TID PRN 5 Days #10 tab 05/13/21 Allergies Allergy/AdvReac Type Severity Reaction Status Date / Time No Known Allergies Allergy Verified 04/02/21 16:05 [No Known Allergies*] none Allergy Unknown Unknown Uncoded 04/02/21 16:05 Review of Systems Review of Systems: Constitutional : No Weight loss, No Fever, No Chills, No Night Sweats, No Fatigue, No Malaise ENT/Mouth : No Hearing loss, No Ear Pain, No Nasal Congestion, No Sinus Pain, No Hoarseness, No sore throat, No Rhinorrhea, No Swallowing Difficulty Eyes: No Eye Pain, No Swelling, No Redness, No Foreign Body, No Discharge, No Vision Changes Cardiovascular : No Chest Pain, No SOB, No Dyspnea on Exertion, No Orthopnea, No Edema, No Palpitations Respiratory : No Cough, No Sputum, No Wheezing, No Smoke Exposure, No Dyspnea Gastrointestinal : No Nausea, No Vomiting, No Diarrhea, No Constipation, No abdominal Pain, No Hematochezia, No Melena Genitourinary : no irregular bleeding, No Dysuria, No Urinary Frequency, No Hematuria, No Urinary Incontinence, No Urgency, No Flank Pain, No Urinary Flow Changes, No Hesitancy Musculoskeletal : Complaining of chronic lower back pain, complaining of left elbow pain Skin : No Skin Lesions, No rash Neuro : No Weakness, No Numbness, No Paresthesias, No Loss of Consciousness, No Dizziness, No Headache Psych : No Anxiety/Panic, No Depression, No SI/HI/AH/VH, No Social Issues, Heme/Lymph: No Bruising, No Bleeding,No Lymphadenopathy Endocrine : No Polyuria, No Polydipsia, No Temperature Intolerance PMFSH Past Medical History Medical History Acute promyelocytic leukemia Anxiety Asthma Chronic cholecystitis Chronic idiopathic constipation Colitis Crohn disease Depression Diabetes 1.5, managed as type 1 Diarrhea Elevated serum glutamic pyruvic transaminase (SGPT) level H/O flexible sigmoidoscopy Hypertension Kidney disease Left sided abdominal pain Renal stones Thalamic pain syndrome (hyperesthetic) Surgical History H/O lithotripsy H/O rectal sphincterotomy History of cholecystectomy History of colonoscopy History of hemorrhoidectomy Social History Social History Household Members: Children Housing: Apartment Do you presently have visiting nurse or other home services: No Alcohol intake: never Patient Tobacco Use Status: Never used Tobacco Advance Directives: Yes Advance Directives on File: Yes Advance Directives Date on File: 02/15/21 service: No Current occupational status: disabled Physical Exam Vital Signs: Vital Signs: Last Vital Signs Temp 97.9 F 05/13/21 06:33 Pulse 87 05/13/21 06:33 Resp 17 05/13/21 06:33 BP 126/67 05/13/21 06:33 Pulse Ox 94 05/13/21 06:33 BMI result Body Mass Index 31.8 Const: Other: Appearance: Alert. Oriented X3. No acute distress. Eyes: Pupils equal, round and reactive to light. ENT: Pharynx normal. Neck: Normal inspection. Neck supple. No lymph nodes noted. No crepitus CVS: Normal heart rate and rhythm. Pulses normal. Normal S1 and S2 Respiratory: No respiratory distress. Breath sounds normal. No Wheezing. No rales Abdomen: Soft and nontender. No rigidity. No distention. Back: No pain to palpation in cervical/thoracic/lumbar spine. Pain to palpation over the paraspinal muscles and above the hips bilaterally. Skin: Skin warm and dry. Normal skin color. Normal skin turgor. Extremities: No lower extremity edema. Left elbow is swollen, no warmth, no erythema, patient able to flex and extend the elbow Neuro: Oriented X 3. No motor deficit. No sensory deficit. Moving all extermities. No slurred speech. Course Course Course Narrative: Patient was given 1 dose of IM Toradol/Decadron for chronic back pain. Labs and x-rays pending for the left elbow. X-ray shows trace joint effusion. Patient is able to flex and extend with no significant pain, septic joint is not suspected at this time. MDM - Back Pain/Injury Lab Data Result diagrams: 05/13/21 04:41 05/13/21 04:41 Labs: Lab Results 05/13/21 05/13/21 05/13/21 Range/Units 04:41 04:41 04:41 WBC 11.9 H (4.8-10.8) X10*3/uL RBC 3.65 L (4.60-5.80) X10*6/uL Hgb 9.2 L (14.0-18.0) g/dl Hct 31.6 L (42.0-52.0) % MCV 86.6 (80.0-98.0) fL MCH 25.2 L (27.0-33.0) pg MCHC 29.1 L (31.0-36.0) g/dl RDW 18.3 H (11.0-16.0) % Plt Count 560 H (160-400) X10*3/uL MPV 8.3 L (9.4-12.4) fL Immature Gran % (Auto) 1.6 H (0.0-0.4) % Neut % (Auto) 77.7 H (45-73) % Lymph % (Auto) 13.2 L (20-40) % Tillman % (Auto) 7.2 (2-11) % Eos % (Auto) 0.2 (0-4) % Baso % (Auto) 0.1 (0-2) % Lymph # (Auto) 1.6 (1.2-4.9) X10*3/uL Tillman # (Auto) 0.9 (0.1-1.2) X10*3/uL Eos # (Auto) 0.0 (0.0-0.4) X10*3/uL Baso # (Auto) 0.0 (0.0-0.2) X10*3/uL Abs Immat Gran (auto) 0.19 H (0.00-0.03) X10*3/uL Absolute Neuts (auto) 9.3 H (2.0-8.3) x10*3/uL Absolute Nucleated RBC 0.020 H (0.0-0.012) X10*3/uL Nucleated RBC % (auto) 0.2 (0.0-0.2) /100WBC ESR 57 H (0-15) MM/HR Sodium 139 (135-145) mmol/L Potassium 3.8 (3.3-5.1) mmol/L Chloride 103 (96-108) mmol/L Carbon Dioxide 26 (22-29) mmol/L Anion Gap 14 (12-20) BUN 29 H (9-16) mg/dL Creatinine 1.02 (0.5-1.4) mg/dL Estim Creat Clear Calc 102.8 Estimated GFR > 60 Random Glucose 148 H D (60-115) mg/dL Calcium 9.4 D (8.4-10.2) mg/dL C-Reactive Protein 5.23 H (< or = 0.50) mg/dL Discharge Plan Discharge Clinical Impression: Chronic back pain, Elbow swelling Patient Disposition: Home, Self-Care Instructions: Chronic Back Pain (DC), Lower Back Exercises (ED) Additional Instructions: Please follow-up with your primary care physician tomorrow. If you have any worsening or new symptoms, please return to the emergency room or call 911 Prescriptions: New ketorolac 10 mg tablet 10 mg PO TID PRN (Reason: pain) 5 Days Qty: 10 RF: 0 No Action sucralfate 1 gram tablet 1 g PO BID Qty: 180 RF: 1 Nucynta ER 50 mg tablet extended release 12 hr 50 mg PO DAILY Qty: 30 RF: 0 glyburide 5 mg tablet 5 mg PO BID RF: 0 mirtazapine 30 mg tablet 30 mg PO BEDTIME RF: 0 lisinopril 5 mg tablet 5 mg PO DAILY RF: 0 folic acid 1 mg tablet 1 tab PO DAILY RF: 0 paroxetine HCl 40 mg tablet 40 mg PO DAILY RF: 0 prednisone 10 mg tablet 4 tab PO QAM RF: 0 melatonin 5 mg tablet 1 tab PO BEDTIME PRN (Reason: Insomnia) RF: 0 hydroxyzine pamoate 50 mg capsule 2 cap PO BEDTIME PRN (Reason: Anxiety) RF: 0 acetaminophen 500 mg Tablet 1,000 mg PO DAILY RF: 0 docusate sodium 100 mg Capsule 100 mg PO DAILY PRN (Reason: Constipation) RF: 0 Stelara 90 mg/mL Syringe 90 mg SUBCUT Q8W RF: 0 Xeljanz 10 mg tablet 10 mg PO DAILY RF: 0
[2021-05-13] MEDS: Ketorolac Tromethamine 60 MG/2 ML VIAL IM (04:45)
[2021-05-13] MEDS: dexAMETHasone sod phosphate 4 MG/ML VIAL IM (04:45)
[2021-05-13 04:46] LABS: MANUAL DIFF FLAG NO
[2021-05-13 04:47] LABS: Basophils Percent Auto 0.1 % (0-2); Eosinophils Percent Auto 0.2 % (0-4); Hematocrit 31.6 % (42.0-52.0); Hemoglobin 9.2 g/dl (14.0-18.0); Imm Gran Abs Auto 0.19 X10*3/uL (0.00-0.03); Imm Gran Pct Auto 1.6 % (0.0-0.4); Lymphocytes Absolute Auto 1.6 X10*3/uL (1.2-4.9); Lymphocytes Percent Auto 13.2 % (20-40); Mean Corpuscular HGB Conc 29.1 g/dl (31.0-36.0); Mean Corpuscular Hemoglobin 25.2 pg (27.0-33.0); Mean Corpuscular Volume 86.6 fL (80.0-98.0); Mean Platelet Volume 8.3 fL (9.4-12.4); Monocytes Absolute Auto 0.9 X10*3/uL (0.1-1.2); Monocytes Percent Auto 7.2 % (2-11); NRBC Pct Auto 0.2 /100WBC (0.0-0.2); Neutrophils Absolute Auto 9.3 x10*3/uL (2.0-8.3); Neutrophils Percent Auto 77.7 % (45-73); Platelet Count 560 X10*3/uL (160-400); Red Blood Count 3.65 X10*6/uL (4.60-5.80); Red Cell Distribution Width 18.3 % (11.0-16.0); White Blood Count 11.9 X10*3/uL (4.8-10.8)
[2021-05-13 05:01] LABS: Anion Gap 14 (12-20); Blood Urea Nitrogen 29 mg/dL (9-16); C Reactive Protein 5.23 mg/dL (< or = 0.50); Calcium 9.4 mg/dL (8.4-10.2); Carbon Dioxide 26 mmol/L (22-29); Chloride 103 mmol/L (96-108); Creatinine Clr Calc Pharmacy 102.8; Estimated Glomerular Filt Rate > 60; Glucose Random 148 mg/dL (60-115); Potassium 3.8 mmol/L (3.3-5.1); Sodium 139 mmol/L (135-145)
[2021-05-13 06:01] LABS: Erythrocyte Sedimentation Rate 57 MM/HR (0-15)
[2021-05-13 06:33] VITALS: BP 126/67; PULSE 87; RESP 17; TEMP 36.6; O2SAT 94
== END 2021-05-13 07:30 | disposition home or self-care (01) ==
PROVIDERS: Emergency Provider Emergency Medicine; PCP Internal Medicine
DX: G89.29 Other chronic pain (principal); M54.50 Low back pain, unspecified; M25.422 Effusion, left elbow; I10 Essential (primary) hypertension; E13.9 Other specified diabetes mellitus without complications
CPT/HCPCS: 36415; 73080; 80048; 85025; 85652; 86140; 99284; J1100; J1885

== ENCOUNTER 2021-05-15 08:10 | Inpatient (IN) | payer MEDICARE, MEDICAID, SELFPAY ==
[2021-05-15] VITALS (8 sets, daily range): BP systolic 127–148; BP diastolic 61–81; PULSE 75–123; RESP 14–22; TEMP 37.2–37.8; O2SAT 92–95; BMI 31.7
--- NOTE | ~2021-05-15 | XR_ITS ---
EXAMINATION: XR LUMBOSACRAL SPINE CLINICAL INFORMATION: Back pain COMPARISON: Previous abdominal pelvic CT March 2021 TECHNIQUE: Three views of the lumbosacral spine. FINDINGS: There is curvature of the mid lumbar spine to the right. There is mild anterior subluxation of L4 with respect L5. Bone alignment is otherwise normal. There is a moderate to severe T12 vertebral body compression fracture. This is new in the interval from March 2021 CT scan. No other fracture is seen. There is degenerative disc disease at L4-L5 and L5-S1. There is lower lumbar spine facet arthritis. XR/XR lumbar spine 2-3V IMPRESSION: Moderate to severe T12 vertebral body compression fracture new in the interval from March 2021 and abdominal and pelvic CT scan. Degenerative changes of the lower lumbar spine.
--- NOTE | ~2021-05-15 | US_ITS ---
EXAMINATION: US VENOUS ULTRASOUND WITH DOPPLER LOWER EXTREMITY, LEFT CLINICAL INFORMATION: Pain and swelling COMPARISON: None TECHNIQUE: Ultrasound of the deep veins is performed from the hip to the calf with compression sonography and color and pulse Doppler assessment. Spectral analysis with color-flow imaging is performed. FINDINGS: There is normal venous compression and respiratory variation and augmented flow. The visualized common femoral vein, superficial femoral vein, profunda femoral vein, popliteal vein, and the trifurcation region shows no evidence of deep venous thrombosis. There is no popliteal fossa cyst. US/US venous duplex LE LT IMPRESSION: No DVT demonstrated in the left lower extremity.
--- NOTE | ~2021-05-15 | US_ITS ---
EXAMINATION: US VENOUS WITH DOPPLER UPPER EXTREMITY, LEFT CLINICAL INFORMATION: Cellulitis COMPARISON: None TECHNIQUE: Ultrasound of the upper extremity is performed using compression sonography and color and pulse Doppler flow with assessment of augmentation of flow. There is also imaging and Doppler assessment of the jugular and subclavian veins. Spectral analysis with color-flow imaging is performed. FINDINGS: Respiratory variation, normal compression, and augmented flow are noted throughout the upper extremity including the axillary, brachial, cubital, and radial and ulnar veins. There is normal flow in the internal jugular and subclavian veins. There is no visible deep or superficial thrombophlebitis. US/US venous duplex UE LT IMPRESSION: No DVT demonstrated in the left upper extremity
--- NOTE | 2021-05-15 08:28 | ED.EXTPRO ---
HPI - Extremity Problem General Chief complaint: Extremity Injury, Upper Stated complaint: L HAND PAIN/SWELLING NO KNOWN INJURY PER PT Time Seen by Provider: 05/15/21 08:13 Source: patient and old records reviewed Mode of arrival: EMS Limitations: other (poor historian) History of Present Illness MD Complaint: extremity pain and extremity swelling Onset (ago): day(s) (2) Pain Consistency: constant Location: left and upper extremity Quality: aching and constant Radiation: none Relieving factors: nothing Exacerbating factors: range of motion and palpation Associated symptoms: myalgias and other (redness and warmth) Context: other (states he fell one month ago was seen on 05/13 for back pain L elbow no infection noted) Related Data Home Medications Medication Instructions Recorded Confirmed glyburide 5 mg tablet 5 mg PO BID 03/22/20 04/02/21 lisinopril 5 mg tablet 5 mg PO DAILY 03/22/20 04/02/21 mirtazapine 30 mg tablet 30 mg PO BEDTIME 03/22/20 04/02/21 tofacitinib 10 mg tablet (Xeljanz) 10 mg PO DAILY 08/18/20 04/02/21 folic acid 1 mg tablet 1 tab PO DAILY 02/14/21 04/02/21 melatonin 5 mg tablet 1 tab PO BEDTIME PRN 02/14/21 04/02/21 paroxetine HCl 40 mg tablet 40 mg PO DAILY 02/14/21 04/02/21 prednisone 10 mg tablet 4 tab PO QAM 02/14/21 04/02/21 acetaminophen 500 mg tablet 1,000 mg PO DAILY 04/02/21 04/02/21 docusate sodium 100 mg capsule 100 mg PO DAILY PRN 04/02/21 04/02/21 hydroxyzine pamoate 50 mg capsule 2 cap PO BEDTIME PRN 04/02/21 04/02/21 ustekinumab 90 mg/mL subcutaneous 90 mg SUBCUT Q8W 04/02/21 04/02/21 syringe (Stelara) methotrexate sodium 2.5 mg tablet 2.5 mg PO QWEEK 05/15/21 Previous Rx's Medication Instructions Recorded sucralfate 1 gram tablet 1 g PO BID #180 tab 10/20/20 tapentadol 50 mg tablet,extended 50 mg PO DAILY #30 tab 05/11/21 release,12 hr (Nucynta ER) Allergies Allergy/AdvReac Type Severity Reaction Status Date / Time No Known Allergies Allergy Verified 04/02/21 16:05 [No Known Allergies*] none Allergy Unknown Unknown Uncoded 04/02/21 16:05 Review of Systems Review of Systems: Constitutional : No Fever, pos Chills ENT/Mouth : No sore throat, No Rhinorrhea Eyes: No Eye Pain, No Swelling, No Redness Cardiovascular : No Chest Pain, No SOB Respiratory : No Cough, No Sputum Gastrointestinal : No Nausea, No Vomiting, No Diarrhea, No abdominal Pain Genitourinary : No Dysuria, No Hematuria Musculoskeletal : pos joint pain, No Myalgias, pos Joint Swelling Skin : No Skin Lesions, positive skin rash Neuro : No Weakness, No Numbness, No Headache Psych : No Anxiety, No Depression Heme/Lymph: No Bruising, No Bleeding,No Lymphadenopathy Endocrine : No Polyuria, No Polydipsia All other systems reviewed and are negative PMFSH Past Medical History Source: old records reviewed Medical History Acute promyelocytic leukemia Anxiety Asthma Chronic cholecystitis Chronic idiopathic constipation Colitis Crohn disease Depression Diabetes 1.5, managed as type 1 Diarrhea Elevated serum glutamic pyruvic transaminase (SGPT) level H/O flexible sigmoidoscopy Hypertension Kidney disease Left sided abdominal pain Renal stones Thalamic pain syndrome (hyperesthetic) Surgical History H/O lithotripsy H/O rectal sphincterotomy History of cholecystectomy History of colonoscopy History of hemorrhoidectomy Social History Social History Household Members: Children Housing: Apartment Do you presently have visiting nurse or other home services: No Alcohol intake: never Patient Tobacco Use Status: Never used Tobacco Advance Directives: Yes Advance Directives on File: Yes Advance Directives Date on File: 04/04/21 service: No Current occupational status: disabled Physical Exam Vital Signs: Vital Signs: Last Vital Signs Temp 100.1 F 05/15/21 08:15 Pulse 118 H 05/15/21 08:15 Resp 16 05/15/21 08:15 BP 145/81 H 05/15/21 08:15 Pulse Ox 93 05/15/21 08:15 BMI result Body Mass Index 31.7 Appearance: Alert. Oriented X3. No acute distress. Eyes: Pupils equal, round and reactive to light. ENT: Pharynx normal. Neck: Normal inspection. Neck supple. CVS: Normal heart rate and rhythm. Pulses normal. Respiratory: No respiratory distress. Breath sounds normal. Abdomen: Soft and nontender. Skin: Skin warm and dry. Normal skin color. Extremities: 1+ pitting lower extremity edema. L arm hand into elbow - erythema and warmth noted from elbow down to dorsum of hand - distal NV intact, olecranon bursa appears boggy and tender no drainage noted fingers full ROM Neuro: Oriented X 3. No motor deficit. No sensory deficit. MDM - Extremity (Nontraumatic) MDM Narrative Medical decision making narrative: 60 yo male with hx of GERD, CKD, DM, crohn's here with L elbow pain/swelling isolated to posterior aspect he does have ROM of that elbow I do not suspect septic joint but he does have likely infected bursa that has now progressed to cellulitis of the arm - at this time will need labs, cultures, IV antibiotics, planned admit. Lab Data Result diagrams: 05/15/21 08:56 05/15/21 08:56 Labs: Lab Results 05/15/21 05/15/21 05/15/21 Range/Units 08:56 08:56 08:56 WBC 16.7 H (4.8-10.8) X10*3/uL RBC 3.31 L (4.60-5.80) X10*6/uL Hgb 8.4 L (14.0-18.0) g/dl Hct 28.4 L (42.0-52.0) % MCV 85.8 (80.0-98.0) fL MCH 25.4 L (27.0-33.0) pg MCHC 29.6 L (31.0-36.0) g/dl RDW 18.2 H (11.0-16.0) % Plt Count 514 H (160-400) X10*3/uL MPV 9.2 L (9.4-12.4) fL Immature Gran % (Auto) 1.0 H (0.0-0.4) % Neut % (Auto) 82.6 H (45-73) % Lymph % (Auto) 8.4 L (20-40) % [place] % (Auto) 7.8 (2-11) % Eos % (Auto) 0.1 (0-4) % Baso % (Auto) 0.1 (0-2) % Lymph # (Auto) 1.4 (1.2-4.9) X10*3/uL [place] # (Auto) 1.3 H (0.1-1.2) X10*3/uL Eos # (Auto) 0.0 (0.0-0.4) X10*3/uL Baso # (Auto) 0.0 (0.0-0.2) X10*3/uL Abs Immat Gran (auto) 0.17 H (0.00-0.03) X10*3/uL Absolute Neuts (auto) 13.8 H (2.0-8.3) x10*3/uL Absolute Nucleated RBC 0.000 (0.0-0.012) X10*3/uL Nucleated RBC % (auto) 0.0 (0.0-0.2) /100WBC Sodium 138 (135-145) mmol/L Potassium 4.2 (3.3-5.1) mmol/L Chloride 102 (96-108) mmol/L Carbon Dioxide 28 (22-29) mmol/L Anion Gap 12 (12-20) BUN 21 H (9-16) mg/dL Creatinine 0.95 (0.5-1.4) mg/dL Estim Creat Clear Calc 110.3 Estimated GFR > 60 Random Glucose 162 H (60-115) mg/dL Lactic Acid (0.5-2.0) mmol/L Calcium 8.9 (8.4-10.2) mg/dL Magnesium 2.1 (1.6-2.6) mg/dL Total Bilirubin 0.6 (0.0-1.0) mg/dL Direct Bilirubin 0.2 (0.0-0.5) mg/dL AST 15 D (5-37) U/L ALT 19 (0-40) U/L Alkaline Phosphatase 82 D (39-117) U/L C-Reactive Protein 11.85 H (< or = 0.50) mg/dL Total Protein 5.7 L (6.5-8.0) g/dL Albumin 3.2 L (3.5-5.0) g/dL COVID-19 (KRISTOPHER) Negative (Negative) COVID-19 Clin Com See Note 05/15/21 Range/Units 08:56 WBC (4.8-10.8) X10*3/uL RBC (4.60-5.80) X10*6/uL Hgb (14.0-18.0) g/dl Hct (42.0-52.0) % MCV (80.0-98.0) fL MCH (27.0-33.0) pg MCHC (31.0-36.0) g/dl RDW (11.0-16.0) % Plt Count (160-400) X10*3/uL MPV (9.4-12.4) fL Immature Gran % (Auto) (0.0-0.4) % Neut % (Auto) (45-73) % Lymph % (Auto) (20-40) % [place] % (Auto) (2-11) % Eos % (Auto) (0-4) % Baso % (Auto) (0-2) % Lymph # (Auto) (1.2-4.9) X10*3/uL [place] # (Auto) (0.1-1.2) X10*3/uL Eos # (Auto) (0.0-0.4) X10*3/uL Baso # (Auto) (0.0-0.2) X10*3/uL Abs Immat Gran (auto) (0.00-0.03) X10*3/uL Absolute Neuts (auto) (2.0-8.3) x10*3/uL Absolute Nucleated RBC (0.0-0.012) X10*3/uL Nucleated RBC % (auto) (0.0-0.2) /100WBC Sodium (135-145) mmol/L Potassium (3.3-5.1) mmol/L Chloride (96-108) mmol/L Carbon Dioxide (22-29) mmol/L Anion Gap (12-20) BUN (9-16) mg/dL Creatinine (0.5-1.4) mg/dL Estim Creat Clear Calc Estimated GFR Random Glucose (60-115) mg/dL Lactic Acid 1.1 (0.5-2.0) mmol/L Calcium (8.4-10.2) mg/dL Magnesium (1.6-2.6) mg/dL Total Bilirubin (0.0-1.0) mg/dL Direct Bilirubin (0.0-0.5) mg/dL AST (5-37) U/L ALT (0-40) U/L Alkaline Phosphatase (39-117) U/L C-Reactive Protein (< or = 0.50) mg/dL Total Protein (6.5-8.0) g/dL Albumin (3.5-5.0) g/dL COVID-19 (KRISTOPHER) (Negative) COVID-19 Clin Com Discharge Plan Discharge Clinical Impression: CRP elevated Cellulitis Qualifiers: Site of cellulitis: extremity Site of cellulitis of extremity: upper extremity Laterality: left Qualified Code(s): L03.114 - Cellulitis of left upper limb Leukocytosis Qualifiers: Leukocytosis type: unspecified Qualified Code(s): D72.829 - Elevated white blood cell count, unspecified Patient Disposition: Admitted As Inpatient
[2021-05-15 09:00] LABS: MANUAL DIFF FLAG NO
[2021-05-15 09:07] LABS: Basophils Percent Auto 0.1 % (0-2); Eosinophils Percent Auto 0.1 % (0-4); Hematocrit 28.4 % (42.0-52.0); Hemoglobin 8.4 g/dl (14.0-18.0); Imm Gran Abs Auto 0.17 X10*3/uL (0.00-0.03); Lymphocytes Absolute Auto 1.4 X10*3/uL (1.2-4.9); Lymphocytes Percent Auto 8.4 % (20-40); Mean Corpuscular HGB Conc 29.6 g/dl (31.0-36.0); Mean Corpuscular Hemoglobin 25.4 pg (27.0-33.0); Mean Corpuscular Volume 85.8 fL (80.0-98.0); Mean Platelet Volume 9.2 fL (9.4-12.4); Monocytes Absolute Auto 1.3 X10*3/uL (0.1-1.2); Monocytes Percent Auto 7.8 % (2-11); Neutrophils Absolute Auto 13.8 x10*3/uL (2.0-8.3); Neutrophils Percent Auto 82.6 % (45-73); Platelet Count 514 X10*3/uL (160-400); Red Blood Count 3.31 X10*6/uL (4.60-5.80); Red Cell Distribution Width 18.2 % (11.0-16.0); White Blood Count 16.7 X10*3/uL (4.8-10.8)
[2021-05-15 09:14] LABS: Lactic Acid 1.1 mmol/L (0.5-2.0)
[2021-05-15] MEDS: Morphine Sulfate Immed Release 15 MG TABLET 30 MG PO (09:15)
[2021-05-15] MEDS: Piperacillin Sodium/Tazobactam 3.375 GM in 0.9 % Sodium Chloride 50 ML IV (09:16)
[2021-05-15] MEDS: Acetaminophen 325 MG TABLET 650 MG PO (09:16)
[2021-05-15 09:27] LABS: Alanine Aminotransferase 19 U/L (0-40); Albumin Level 3.2 g/dL (3.5-5.0); Alkaline Phosphatase 82 U/L (39-117); Anion Gap 12 (12-20); Aspartate Amino Transferase 15 U/L (5-37); Bilirubin Direct 0.2 mg/dL (0.0-0.5); Bilirubin Total 0.6 mg/dL (0.0-1.0); Blood Urea Nitrogen 21 mg/dL (9-16); C Reactive Protein 11.85 mg/dL (< or = 0.50); Calcium 8.9 mg/dL (8.4-10.2); Carbon Dioxide 28 mmol/L (22-29); Chloride 102 mmol/L (96-108); Creatinine Clr Calc Pharmacy 110.3; Estimated Glomerular Filt Rate > 60; Glucose Random 162 mg/dL (60-115); Magnesium 2.1 mg/dL (1.6-2.6); Potassium 4.2 mmol/L (3.3-5.1); Sodium 138 mmol/L (135-145); Total Protein 5.7 g/dL (6.5-8.0)
[2021-05-15 09:32] LABS: COVID-19 Test Negative (Negative)
[2021-05-15] MEDS: vancomycin HCL 1,500 MG in 0.9 % Sodium Chloride 500 ML 333.33 MG IV (10:19)
--- NOTE | 2021-05-15 10:24 | PC.NURSE ---
IV antibiotics started late as pt was a difficult stick for an IV
--- NOTE | 2021-05-15 10:38 | PHA.MEDREC ---
Pharmacy Consult ? Medication Reconciliation Pharmacy has completed the medication reconciliation.
--- NOTE | 2021-05-15 11:01 | PM.IMHP ---
History of Present Illness Date of Service: 05/15/21 Chief Complaint: Left Arm swelling and pain This is a 60 yo M with a PMH as outlined below who presents to the ED for the second time in about 48 hours for complaints of left upper extremity pain, swelling and redness. The patient had initially presented on 05/13/21 with complaints of exacerbation of his chronic back pain and LUE pain. He reports that roughly 1 month prior to presentation, he sustained a mechanical fall (on the L side of his body) but about 2 days days [facility] [place], he reports he noted swelling of the elbow joint. During his ED visit on 05/13/21 he underwent basic lab work and XR of the L elbow which shows trace effusion. He reports that since then, he has noted that the swelling has spread to his forearm and fingers, to the point where is unable to make a fist. He reports worsening erythema. He denies any fevers or chills. He denies any repeated falls / trauma to the LUE. In the ED, the patient was noted to tachycardic. His CBC showed a WBC count of 16k/17 bands. A diagnosis of cellulitis was made. He was given broad spec IV antibiotics (vancomcyin/zosyn) and now will be admitted for further care. Review of Systems Review of Systems: negative except HPI [facility] Medical History Acute promyelocytic leukemia Anxiety Asthma Chronic cholecystitis Chronic idiopathic constipation Colitis Crohn disease Depression Diabetes 1.5, managed as type 1 Diarrhea Elevated serum glutamic pyruvic transaminase (SGPT) level H/O flexible sigmoidoscopy Hypertension Kidney disease Left sided abdominal pain Renal stones Thalamic pain syndrome (hyperesthetic) Surgical History H/O lithotripsy H/O rectal sphincterotomy History of cholecystectomy History of colonoscopy History of hemorrhoidectomy Social History Household Members: Children Housing: Apartment Do you presently have visiting nurse or other home services: No Alcohol intake: never Patient Tobacco Use Status: Never used Tobacco Advance Directives: Yes Advance Directives on File: Yes Advance Directives Date on File: 04/04/21 service: No Current occupational status: disabled Meds Allergies Allergy/AdvReac Type Severity Reaction Status Date / Time No Known Allergies Allergy Verified 04/02/21 16:05 [No Known Allergies*] none Allergy Unknown Unknown Uncoded 04/02/21 16:05 Active Medications: Current Medications Acetaminophen (Acetaminophen 325 Mg Tablet) 650 mg PO Q6H PRN PRN Reason: Pain, Mild (Pain Scale 1-3) Enoxaparin Sodium (Enoxaparin Sodium 40 Mg/0.4 Ml Syringe) 40 mg SUBCUT Q24H [facility] Piperacillin Sod/Tazobactam (Sod 3.375 gm/ Sodium Chloride) 50 mls @ 100 mls/hr IV Q6H LADONNA Vancomycin HCl 1,000 mg/ (Sodium Chloride) 270 mls @ 270 mls/hr IV Q12H LADONNA Ondansetron HCl (Ondansetron Hcl 4 Mg/2 Ml Vial) 4 mg IVPUSH Q8H PRN PRN Reason: Nausea and Vomiting Pharmacy Consult (Consult Rx Perform Med Rec) 1 each MISCELLANE ONCE PRN PRN Reason: Consult order Pharmacy Consult (Consult Rx Vancomycin Dosing) 1 each MISCELLANE DAILY PRN PRN Reason: Consult order Sodium Chloride (0.9 % Sodium Chloride Flush 3 Ml Syringe) 3 ml IVFLUSH QSHIFT [facility] Home Medications Medication Instructions Recorded Confirmed Last Taken Type glyburide 5 mg tablet 5 mg PO BID 03/22/20 05/15/21 05/14/21 History lisinopril 5 mg tablet 5 mg PO DAILY 03/22/20 05/15/21 05/14/21 History mirtazapine 30 mg tablet 30 mg PO BEDTIME 03/22/20 05/15/21 05/14/21 History folic acid 1 mg tablet 1 tab PO DAILY 02/14/21 05/15/21 05/14/21 History melatonin 5 mg tablet 1 tab PO BEDTIME PRN 02/14/21 05/15/21 05/14/21 History paroxetine HCl 40 mg tablet 40 mg PO DAILY 02/14/21 05/15/21 05/14/21 History hydroxyzine pamoate 50 mg capsule 2 cap PO BEDTIME PRN 04/02/21 05/15/21 05/14/21 History ustekinumab 90 mg/mL subcutaneous 90 mg SUBCUT Q8W 04/02/21 05/15/21 05/13/21 History syringe (Stelara) methotrexate sodium 2.5 mg tablet 2.5 mg PO TU 05/15/21 05/15/21 05/08/21 History Physical Exam Vital Signs and Narrative: Vital Signs: Last Vital Signs Temp 100.1 F 05/15/21 08:15 Pulse 112 H 05/15/21 10:18 Resp 14 05/15/21 10:18 BP 145/81 H 05/15/21 08:15 Pulse Ox 93 05/15/21 08:15 BMI result Body Mass Index 31.7 Const: Other: Constitutional - Awake and Alert, In pain Eyes - PERRLA, EOMI Cardiovascular - S1S2, RRR, No edema Respiratory - Normal lung expansion, Normal respiratory effort, No respiratory distress, CTA bilaterally Gastrointestinal - NT / ND; +BS; No rebound or guarding - No CVA tenderness Extremities - LUE swelling from elbow to hand with erythema and tenderness of palpation Musculoskeletal - SLR negative bilaterally; spinal and paraspinal TTP; Able to bend at elbow joint with ROM near normal; hand with significant swelling - limited ROM due to pain Skin - Warm/Dry, has some areas of bruising LUE Neurological - Alert & oriented x3, Strength equal in b/l LE; RUE ROM limited due to infectious process Psychological - Appropriate affect Results Labs CBC and Chem 7: 05/15/21 08:56 05/15/21 08:56 Labs: Laboratory Results - last 24 hr 05/15/21 05/15/21 05/15/21 08:56 08:56 08:56 MCV 85.8 MCH 25.4 L MCHC 29.6 L RDW 18.2 H Plt Count 514 H MPV 9.2 L Immature Gran % (Auto) 1.0 H Neut % (Auto) 82.6 H Lymph % (Auto) 8.4 L [place] % (Auto) 7.8 Eos % (Auto) 0.1 Baso % (Auto) 0.1 Lymph # (Auto) 1.4 [place] # (Auto) 1.3 H Eos # (Auto) 0.0 Baso # (Auto) 0.0 Abs Immat Gran (auto) 0.17 H Absolute Neuts (auto) 13.8 H Absolute Nucleated RBC 0.000 Nucleated RBC % (auto) 0.0 Anion Gap 12 Estim Creat Clear Calc 110.3 Estimated GFR > 60 Random Glucose 162 H Lactic Acid Calcium 8.9 Magnesium 2.1 Total Bilirubin 0.6 Direct Bilirubin 0.2 AST 15 D ALT 19 Alkaline Phosphatase 82 D C-Reactive Protein 11.85 H Total Protein 5.7 L Albumin 3.2 L COVID-19 (KRISTOPHER) Negative COVID-19 Clin Com See Note 05/15/21 08:56 MCV MCH MCHC RDW Plt Count MPV Immature Gran % (Auto) Neut % (Auto) Lymph % (Auto) [place] % (Auto) Eos % (Auto) Baso % (Auto) Lymph # (Auto) [place] # (Auto) Eos # (Auto) Baso # (Auto) Abs Immat Gran (auto) Absolute Neuts (auto) Absolute Nucleated RBC Nucleated RBC % (auto) Anion Gap Estim Creat Clear Calc Estimated GFR Random Glucose Lactic Acid 1.1 Calcium Magnesium Total Bilirubin Direct Bilirubin AST ALT Alkaline Phosphatase C-Reactive Protein Total Protein Albumin COVID-19 (KRISTOPHER) COVID-19 Clin Com Imaging Radiologist's Impressions: Impressions Venous Duplex 05/15/21 09:53 IMPRESSION: No DVT demonstrated in the left lower extremity. Assessment and Plan (1) Sepsis: Status: Acute (2) Cellulitis: Qualifiers: Laterality: left Site of cellulitis: extremity Site of cellulitis of extremity: upper extremity Qualified Code(s): L03.114 - Cellulitis of left upper limb Status: Acute This is a 60 yo M with a PMH of NIDDM, IBD (on immunosuppresive therapy), chronic pain syndrome who presents to the ED with worsening LUE swelling, erythem and pain, consistent with LUE cellulitis. He will be admitted for further care. 1. Sepsis secondary to LUE cellulitis covering > 50% of limb, in an patient on immunosuppresive therapy (Stelara + Methotrexate) + diabetes IV Vancomyin / Zosyn F/U blood cultures If not improved in 24-48 hours, may need to repeat imaging studies 2. LUE cellulitis antibiotics as above 3. Acute on Chronic back pain No alarm symptoms Will check a Lumbar XR IV morphine for pain 4. IBD (Mainly Crohn's colitis) on Stelera and ? MTX (prescribed his GI doctor at [facility]) hold MTX for now (not due until next week) 5. DM on Glipizide at home, will hold use sliding scale ADA diet 6. Obesity likely contributing to his chronic back pain outpatient weight loss program should be considered Full Code DVT pptx, Lovenox Quality Stroke Does the patient have a stroke diagnosis?: No VTE Prior VTE?: No VTE Risk Level:: Medical - moderate - high VTE Device Contraindication: Treatment Not Indicated VTE Drug Contraindication: N/A - Med Ordered
--- NOTE | 2021-05-15 11:09 | PHA.PROG ---
Admission Date/Time: May 15, 2021 10:54 Indication: SEPSIS Weight in k.212 kg Adjusted body weight in Kg: [place] body weight in Kg: Obesity Dosing Indication % IBW: Serum Creatinine - Last 168 Hours 05/15/21 08:56 Creatinine 0.95 Estimated CrCl and GFR - Last 168 Hours 05/15/21 08:56 Estim Creat Clear Calc 110.3 Estimated GFR > 60 Vancomycin Loading Dose: 1500 MG Current Vancomycin Dosing Regimen: 1000MG Q12H Vancomycin Monitoring using AUC goal of 400 - 600 range with trough as surrogate marker: AUC 408, TROUGH 13.2 Date and Time for next Vancomycin Level to be drawn: 05/16 @1999 Pharmacist Comments on Vancomycin Plan: Vancomycin dosing will take advantage of [employer] as a clinical decision support tool that uses Bayesian modeling to calculate individual patient's pharmacokinetic parameters and forecast the patient's drug concentration time course with the target goal AUC 24 range of 400 - 600 mg/L/hr.
[2021-05-15] MEDS: PARoxetine HCL 40 MG TABLET PO (12:30)
[2021-05-15] MEDS: Enoxaparin Sodium 40 MG/0.4 ML SYRINGE SUBCUT (12:30)
[2021-05-15] MEDS: Lactated Ringers 1,000 ML 100 ML IVCONT (12:36)
[2021-05-15 12:57] LABS: Glucose, Whole Blood 114 mg/dL (60-115)
[2021-05-15 13:02] LABS: Appearance Urine CLEAR; Color Urine STRAW; Glucose Urine UA NEG (NEG); Leukocyte Esterase Urine NEG (NEG); Nitrite Urine NEG (NEG); PH 5.5 (5.0-8.0); Specific Gravity - Urine 1.015 (1.005-1.025); UACC Culture Trigger NO; Urine Blood 2+ (NEG); Urine Ketones NEG (NEG); Urine Protein NEG (NEG-TRACE)
[2021-05-15 13:13] LABS: Mucus Urine 1+ /LPF; Urine Talc Crystals TRACE /LPF; WBC Urine 0 /HPF (0-4)
[2021-05-15] MEDS: Piperacillin Sodium/Tazobactam 4.5 GM in 0.9 % Sodium Chloride 100 ML IV ×2 (16:00→21:04)
[2021-05-15 18:14] LABS: Glucose, Whole Blood 156 mg/dL (60-115)
[2021-05-15] MEDS: Insulin Lispro 100 UNIT/ML 3 ML VIAL SUBCUT (18:19)
[2021-05-15 20:24] LABS: Glucose, Whole Blood 101 mg/dL (60-115)
[2021-05-15] MEDS: Mirtazapine 30 MG TABLET PO (20:58)
[2021-05-15] MEDS: Sucralfate 1 GM TABLET PO (20:58)
[2021-05-15] MEDS: Morphine Sulfate 4 MG/ML CARTRIDGE IVPUSH (21:01)
--- NOTE | 2021-05-15 21:02 | MHC.CM.PN ---
Cm met with admitted patient with bed assignment pending. sales development coordinator used as pt is Ukrainian speaking only. A&Ox3. IMM reviewed and signed per protocol 05/15/2021@2049. Copy given and copy to medical records. HCP on file. HCP/sister Judith Kauffman ([phone]). Pt lives with son, uses a cane, walker and DM supplies. Pt has no services. Fully vaccinated with Pfizer. No booster. D/C plan is home with services pending hospital course. Son to provide transportation home. CM to follow for d/c needs.
[2021-05-15] MEDS: vancomycin HCL 1,000 MG in 0.9 % Sodium Chloride 250 ML 270 MG IV (22:18)
[2021-05-15] MEDS: Lactated Ringers 1,000 ML 1000 ML IVCONT (22:19)
--- NOTE | 2021-05-15 23:56 | PC.NURSE ---
report called to inpatient RN, pt transported to floor in stable condition w/ all belongings
[2021-05-16] VITALS (9 sets, daily range): BP systolic 106–168; BP diastolic 61–84; PULSE 103–120; RESP 17–20; TEMP 36.3–37.9; O2SAT 92–96; BMI 31.7
[2021-05-16] MEDS: Morphine Sulfate 4 MG/ML CARTRIDGE IVPUSH ×5 (00:26→20:50)
[2021-05-16] MEDS: Piperacillin Sodium/Tazobactam 4.5 GM in 0.9 % Sodium Chloride 100 ML IV ×4 (03:40→20:17)
[2021-05-16 06:06] LABS: Hematocrit 29.4 % (42.0-52.0); Hemoglobin 8.4 g/dl (14.0-18.0); Mean Corpuscular HGB Conc 28.6 g/dl (31.0-36.0); Mean Corpuscular Hemoglobin 24.9 pg (27.0-33.0); Mean Platelet Volume 9.9 fL (9.4-12.4); Platelet Count 485 X10*3/uL (160-400); Red Blood Count 3.38 X10*6/uL (4.60-5.80); Red Cell Distribution Width 18.3 % (11.0-16.0); White Blood Count 16.6 X10*3/uL (4.8-10.8)
[2021-05-16 06:13] LABS: Anion Gap 15 (12-20); Blood Urea Nitrogen 14 mg/dL (9-16); Calcium 8.7 mg/dL (8.4-10.2); Carbon Dioxide 28 mmol/L (22-29); Chloride 99 mmol/L (96-108); Creatinine Clr Calc Pharmacy 124.8; Estimated Glomerular Filt Rate > 60; Glucose Random 126 mg/dL (60-115); Potassium 4.2 mmol/L (3.3-5.1); Sodium 138 mmol/L (135-145)
--- NOTE | 2021-05-16 07:19 | PHA.PROG ---
Admission Date/Time: May 15, 2021 10:54 Indication: Sepsis Weight in k.2 kg Adjusted body weight in K.78 kg [place] body weight in K.5 kg Obesity Dosing Indication % IBW: Serum Creatinine - Last 168 Hours 05/15/21 05/16/21 08:56 05:19 Creatinine 0.95 0.84 Estimated CrCl and GFR - Last 168 Hours 05/15/21 05/16/21 08:56 05:19 Estim Creat Clear Calc 110.3 124.8 Estimated GFR > 60 > 60 Vancomycin Loading Dose: 1500 mg Current Vancomycin Dosing Regimen: 1000 mg q12h Vancomycin Monitoring using AUC goal of 400 - 600 range with trough as surrogate marker: Date and Time for next Vancomycin Level to be drawn: 05/16 Pharmacist Comments on Vancomycin Plan: Due to a decrease in Scr from 0.95 to 0.84, the predicted AUC dropped below the goal of 400-600. So I will increase the dose to 1250 mg q12h which estimates a AUC of 466 and a trough of 14.9. Will continue to monitor Scr and will get a trough to see serum concentration. Vancomycin dosing will take advantage of [employer] as a clinical decision support tool that uses Bayesian modeling to calculate individual patient's pharmacokinetic parameters and forecast the patient's drug concentration time course with the target goal AUC 24 range of 400 - 600 mg/L/hr.
[2021-05-16 07:54] LABS: Glucose, Whole Blood 129 mg/dL (60-115)
[2021-05-16] MEDS: 0.9 % Sodium Chloride Flush 3 ML SYRINGE IVFLUSH ×3 (07:56→20:18)
[2021-05-16] MEDS: Folic Acid 1 MG TABLET PO (07:59)
[2021-05-16] MEDS: lisinopriL 5 MG TABLET PO (07:59)
[2021-05-16] MEDS: PARoxetine HCL 40 MG TABLET PO (07:59)
[2021-05-16] MEDS: Sucralfate 1 GM TABLET PO ×2 (08:00→20:17)
--- NOTE | 2021-05-16 08:58 | PC.NURSE ---
Skin/wound assessment completed. Patient has cellulitis to left arm from elbow to hand. Very red, swollen and painful. Patient also has very dry feet with peeling skin and cracks. Sween 24 moisturizing cream applied to feet, to be done on a daily basis. No other skin issues noted at this time.
--- NOTE | 2021-05-16 09:27 | MHC.CLN ---
NUTRITION INCREASE TO DIETARY KCALS FROM 1800 TO 1999. DIET=DIABETIC 2000 KCALS.
--- NOTE | 2021-05-16 10:29 | HO.PM.IMPN ---
Subjective Subjective Date of Service: 05/16/21 Review of Systems Follow up cellulitis feels slightly better to left arm still with pain and swelling Denies chest pain, shortness of breath, nausea, vomiting, diarrhea All other systems are reviewed and are negative Physical Exam Vital Signs: Vital Signs: Last Vital Signs Temp 98.3 F 05/16/21 07:28 Pulse 116 H 05/16/21 07:28 Resp 18 05/16/21 07:28 BP 148/72 H 05/16/21 07:28 Pulse Ox 96 05/16/21 07:28 BMI result Body Mass Index 31.7 Appearing in no acute distress lung sounds are clear to auscultation heart regular rate rhythm, clear S1, S2 positive bowel sounds, abdomen is soft, nontender neuro patient is alert x3, no focal deficits erythema and edema to left arm Objective Data Active Medications Acetaminophen (Acetaminophen 325 Mg Tablet) 650 mg PO Q6H PRN PRN Reason: Pain, Mild (Pain Scale 1-3) Enoxaparin Sodium (Enoxaparin Sodium 40 Mg/0.4 Ml Syringe) 40 mg SUBCUT Q24H COUNT INCLUDES [facility] Last Admin: 05/15/21 12:30 Dose: 40 mg Documented by: JEANETTE Folic Acid (Folic Acid 1 Mg Tablet) 1 mg PO DAILY COUNT INCLUDES [facility] Last Admin: 05/16/21 07:59 Dose: 1 mg Documented by: JIMBO Hydroxyzine HCl (Hydroxyzine Hcl 50 Mg Tablet) 100 mg PO BEDTIME PRN PRN Reason: Anxiety Piperacillin Sod/Tazobactam (Sod 4.5 gm/ Sodium Chloride) 100 mls @ 200 mls/hr IV Q6H COUNT INCLUDES [facility] Last Admin: 05/16/21 08:00 Dose: 200 mls/hr Documented by: JIMBO Vancomycin HCl 1,250 mg/ (Sodium Chloride) 250 mls @ 166.667 mls/hr IV Q12H COUNT INCLUDES [facility] Insulin Human Lispro (Insulin Lispro 100 Unit/Ml 3 Ml Vial) 0 unit SUBCUT QIDACHS COUNT INCLUDES [facility]; Protocol Last Admin: 05/16/21 07:44 Dose: Not Given Documented by: JIMBO Non-Admin Reason: No Insulin Coverage Lisinopril (Lisinopril 5 Mg Tablet) 5 mg PO DAILY COUNT INCLUDES [facility]; Protocol Last Admin: 05/16/21 07:59 Dose: 5 mg Documented by: JIMBO Melatonin (Melatonin 3 Mg Tablet) 6 mg PO BEDTIME PRN PRN Reason: Insomnia Mirtazapine (Mirtazapine 30 Mg Tablet) 30 mg PO BEDTIME COUNT INCLUDES [facility] Last Admin: 05/15/21 20:58 Dose: 30 mg Documented by: KATHERINE Morphine Sulfate (Morphine Sulfate 4 Mg/Ml Cartridge) 4 mg IVPUSH Q4H PRN; Protocol PRN Reason: Pain, Severe (Pain Scale 7-10) Last Admin: 05/16/21 07:55 Dose: 4 mg Documented by: JIMBO Ondansetron HCl (Ondansetron Hcl 4 Mg/2 Ml Vial) 4 mg IVPUSH Q8H PRN PRN Reason: Nausea and Vomiting Paroxetine HCl (Paroxetine Hcl 40 Mg Tablet) 40 mg PO DAILY COUNT INCLUDES [facility] Last Admin: 05/16/21 07:59 Dose: 40 mg Documented by: JIMBO Pharmacy Consult (Consult Rx Perform Med Rec) 1 each MISCELLANE ONCE PRN PRN Reason: Consult order Pharmacy Consult (Consult Rx Vancomycin Dosing) 1 each MISCELLANE DAILY PRN PRN Reason: Consult order Sodium Chloride (0.9 % Sodium Chloride Flush 3 Ml Syringe) 3 ml IVFLUSH QSHIFT COUNT INCLUDES [facility] Last Admin: 05/16/21 07:56 Dose: 3 ml Documented by: JIMBO Sucralfate (Sucralfate 1 Gm Tablet) 1 gm PO BID COUNT INCLUDES [facility] Last Admin: 05/16/21 08:00 Dose: 1 gm Documented by: JIMBO Labs CBC & Chem 7: 05/16/21 05:19 05/16/21 05:19 Labs: Laboratory Results - last 24 hr 05/15/21 05/15/21 05/15/21 12:49 12:53 18:09 MCV MCH MCHC RDW Plt Count MPV Absolute Nucleated RBC Nucleated RBC % (auto) Anion Gap Estim Creat Clear Calc Estimated GFR POC Glucose 114 156 H Random Glucose Calcium Urine Color STRAW Urine Appearance CLEAR Urine pH 5.5 Ur Specific [place] 1.015 Urine Protein NEG Urine Glucose (UA) NEG Urine Ketones NEG Urine Blood 2+ H Urine Nitrite NEG Ur Leukocyte Esterase NEG Urine RBC 5-9 H Urine WBC 0 Ur Squamous Epith Cells NONE [place] Crystals TRACE Urine Bacteria NONE Urine Mucus 1+ 05/15/21 05/16/21 05/16/21 20:20 05:19 05:19 MCV 87.0 MCH 24.9 L MCHC 28.6 L RDW 18.3 H Plt Count 485 H MPV 9.9 Absolute Nucleated RBC 0.000 Nucleated RBC % (auto) 0.0 Anion Gap 15 Estim Creat Clear Calc 124.8 Estimated GFR > 60 POC Glucose 101 Random Glucose 126 H Calcium 8.7 Urine Color Urine Appearance Urine pH Ur Specific [place] Urine Protein Urine Glucose (UA) Urine Ketones Urine Blood Urine Nitrite Ur Leukocyte Esterase Urine RBC Urine WBC Ur Squamous Epith Cells Talc Crystals Urine Bacteria Urine Mucus 05/16/21 07:33 MCV MCH MCHC RDW Plt Count MPV Absolute Nucleated RBC Nucleated RBC % (auto) Anion Gap Estim Creat Clear Calc Estimated GFR POC Glucose 129 H Random Glucose Calcium Urine Color Urine Appearance Urine pH Ur Specific [place] Urine Protein Urine Glucose (UA) Urine Ketones Urine Blood Urine Nitrite Ur Leukocyte Esterase Urine RBC Urine WBC Ur Squamous Epith Cells Talc Crystals Urine Bacteria Urine Mucus Assessment and Plan (1) Sepsis: Status: Acute (2) Cellulitis: Status: Acute Assessment and Plan: This is a 60 yo M with a PMH of NIDDM, IBD (on immunosuppresive therapy), chronic pain syndrome who presents to the ED with worsening LUE swelling, erythem and pain, consistent with LUE cellulitis. He will be admitted for further care. Sepsis secondary to LUE cellulitis covering > 50% of limb, in an patient on immunosuppresive therapy (Stelara + Methotrexate) + diabetes IV Vancomyin / Zosyn F/U blood cultures pending No fracture or DVT If not improved in 24-48 hours, may need to repeat imaging studies Acute on Chronic back pain No alarm symptoms Lumbar XR showed T12 compression fracture May be eligle for kyphoplasty after infection is treated IV morphine for pain IBD (Mainly Crohn's colitis) on Stelera and ? MTX (prescribed his GI doctor at [facility] clinic) hold MTX for now (not due until next week) DM on Glipizide at home, will hold use sliding scale ADA diet Obesity. BMI 31.7 likely contributing to his chronic back pain. Outpatient weight loss program should be considered Full Code DVT pptx, Lovenox Attending Dr. Hernandez Quality Stroke Does the patient have a stroke diagnosis?: No VTE Prior VTE?: No VTE Risk Level:: Medical - moderate - high VTE Device Contraindication: Treatment Not Indicated VTE Drug Contraindication: N/A - Med Ordered
[2021-05-16] MEDS: Enoxaparin Sodium 40 MG/0.4 ML SYRINGE SUBCUT (11:50)
[2021-05-16] MEDS: vancomycin HCL 1,250 MG in 0.9 % Sodium Chloride 250 ML 166.67 MG IV (11:50)
[2021-05-16] MEDS: Insulin Lispro 100 UNIT/ML 3 ML VIAL SUBCUT ×3 (11:59→20:50)
[2021-05-16 12:02] LABS: Glucose, Whole Blood 169 mg/dL (60-115)
[2021-05-16 17:03] LABS: Glucose, Whole Blood 208 mg/dL (60-115)
[2021-05-16] MEDS: hydrOXYzine HCL 50 MG TABLET 100 MG PO (20:17)
[2021-05-16] MEDS: Acetaminophen 325 MG TABLET 650 MG PO (20:17)
[2021-05-16] MEDS: Melatonin 3 MG TABLET 6 MG PO (20:18)
[2021-05-16] MEDS: Mirtazapine 30 MG TABLET PO (20:18)
[2021-05-16 20:48] LABS: Glucose, Whole Blood 198 mg/dL (60-115)
[2021-05-17] VITALS (7 sets, daily range): BP systolic 110–143; BP diastolic 55–73; PULSE 82–118; RESP 16–18; TEMP 36.3–37.6; O2SAT 90–98
[2021-05-17] MEDS: Piperacillin Sodium/Tazobactam 4.5 GM in 0.9 % Sodium Chloride 100 ML IV ×4 (02:23→20:37)
[2021-05-17] MEDS: vancomycin HCL 1,500 MG in 0.9 % Sodium Chloride 500 ML 333.33 MG IV ×2 (02:59→15:38)
--- NOTE | 2021-05-17 03:51 | PC.NURSE ---
Vanco Trough was drawn at 2200 with result =6.0, result relayed to Dr. Sagastume, Vancomycin dose increased to 1.5 gm IV every 12h
[2021-05-17] MEDS: Morphine Sulfate 4 MG/ML CARTRIDGE IVPUSH ×2 (04:19→08:46)
[2021-05-17 07:47] LABS: Glucose, Whole Blood 166 mg/dL (60-115)
[2021-05-17] MEDS: Insulin Lispro 100 UNIT/ML 3 ML VIAL SUBCUT ×4 (08:28→20:36)
[2021-05-17] MEDS: 0.9 % Sodium Chloride Flush 3 ML SYRINGE IVFLUSH ×3 (08:28→23:45)
[2021-05-17] MEDS: Sucralfate 1 GM TABLET PO ×2 (08:29→20:37)
[2021-05-17] MEDS: PARoxetine HCL 40 MG TABLET PO (08:29)
[2021-05-17] MEDS: Folic Acid 1 MG TABLET PO (08:29)
[2021-05-17] MEDS: lisinopriL 5 MG TABLET PO (08:29)
[2021-05-17 09:12] LABS: Anion Gap 13 (12-20); Blood Urea Nitrogen 14 mg/dL (9-16); Calcium 8.4 mg/dL (8.4-10.2); Carbon Dioxide 30 mmol/L (22-29); Chloride 98 mmol/L (96-108); Creatinine Clr Calc Pharmacy 123.3; Estimated Glomerular Filt Rate > 60; Glucose Random 178 mg/dL (60-115); Potassium 3.9 mmol/L (3.3-5.1); Sodium 137 mmol/L (135-145)
[2021-05-17 11:54] LABS: Glucose, Whole Blood 184 mg/dL (60-115)
[2021-05-17] MEDS: Enoxaparin Sodium 40 MG/0.4 ML SYRINGE SUBCUT (12:20)
--- NOTE | 2021-05-17 12:53 | P.PNIM_ITS ---
Subjective Subjective Date of Service: 05/17/21 Interval History: no acute issues overnight. States he hand and arm feel better Review of Systems denies chest pain Denies shortness of breath Denies nausea vomiting diarrhea Physical Exam Vital Signs: Vital Signs: Last Vital Signs Temp 98.0 F 05/17/21 11:24 Pulse 114 H 05/17/21 11:24 Resp 18 05/17/21 11:24 BP 143/71 H 05/17/21 11:24 Pulse Ox 92 05/17/21 11:24 BMI result Body Mass Index 31.7 Const: Other: awake alert oriented x3 no acute distress Resp: Other: clear bilaterally. No rales rhonchi wheezes Cardio: Other: no S4; positive S1-S2; no murmurs rubs Extrem: Other: moderate edema mid forearm distally with mild erythema Objective Data Active Medications Acetaminophen (Acetaminophen 325 Mg Tablet) 650 mg PO Q6H PRN PRN Reason: Pain, Mild (Pain Scale 1-3) Last Admin: 05/16/21 20:17 Dose: 650 mg Documented by: KAREN Enoxaparin Sodium (Enoxaparin Sodium 40 Mg/0.4 Ml Syringe) 40 mg SUBCUT Q24H [facility] Last Admin: 05/17/21 12:20 Dose: 40 mg Documented by: CORNELIUS Folic Acid (Folic Acid 1 Mg Tablet) 1 mg PO DAILY [facility] Last Admin: 05/17/21 08:29 Dose: 1 mg Documented by: CORNELIUS Hydroxyzine HCl (Hydroxyzine Hcl 50 Mg Tablet) 100 mg PO BEDTIME PRN PRN Reason: Anxiety Last Admin: 05/16/21 20:17 Dose: 100 mg Documented by: KAREN Piperacillin Sod/Tazobactam (Sod 4.5 gm/ Sodium Chloride) 100 mls @ 200 mls/hr IV Q6H [facility] Last Infusion: 05/17/21 09:16 Dose: 0 mls/hr Documented by: CORNELIUS Vancomycin HCl 1,500 mg/ (Sodium Chloride) 500 mls @ 333.333 mls/hr IV Q12H [facility] Last Infusion: 05/17/21 04:40 Dose: 0 mls/hr Documented by: KAREN Insulin Human Lispro (Insulin Lispro 100 Unit/Ml 3 Ml Vial) 0 unit SUBCUT QIDACHS [facility]; Protocol Last Admin: 05/17/21 12:19 Dose: 2 unit Documented by: CRONELIUS Lisinopril (Lisinopril 5 Mg Tablet) 5 mg PO DAILY [facility]; Protocol Last Admin: 05/17/21 08:29 Dose: 5 mg Documented by: CORNELIUS Melatonin (Melatonin 3 Mg Tablet) 6 mg PO BEDTIME PRN PRN Reason: Insomnia Last Admin: 05/16/21 20:18 Dose: 6 mg Documented by: KAREN Mirtazapine (Mirtazapine 30 Mg Tablet) 30 mg PO BEDTIME [facility] Last Admin: 05/16/21 20:18 Dose: 30 mg Documented by: KAREN Morphine Sulfate (Morphine Sulfate 4 Mg/Ml Cartridge) 4 mg IVPUSH Q4H PRN; Protocol PRN Reason: Pain, Severe (Pain Scale 7-10) Last Admin: 05/17/21 08:46 Dose: 4 mg Documented by: CORNELIUS Ondansetron HCl (Ondansetron Hcl 4 Mg/2 Ml Vial) 4 mg IVPUSH Q8H PRN PRN Reason: Nausea and Vomiting Paroxetine HCl (Paroxetine Hcl 40 Mg Tablet) 40 mg PO DAILY [facility] Last Admin: 05/17/21 08:29 Dose: 40 mg Documented by: CORNELIUS Pharmacy Consult (Consult Rx Perform Med Rec) 1 each MISCELLANE ONCE PRN PRN Reason: Consult order Pharmacy Consult (Consult Rx Vancomycin Dosing) 1 each MISCELLANE DAILY PRN PRN Reason: Consult order Sodium Chloride (0.9 % Sodium Chloride Flush 3 Ml Syringe) 3 ml IVFLUSH QSHIFT [facility] Last Admin: 05/17/21 08:28 Dose: 3 ml Documented by: CORNELIUS Sucralfate (Sucralfate 1 Gm Tablet) 1 gm PO BID [facility] Last Admin: 05/17/21 08:29 Dose: 1 gm Documented by: CORNELIUS Labs CBC & Chem 7: 05/16/21 05:19 05/17/21 08:14 Labs: Laboratory Results - last 24 hr 05/16/21 05/16/21 05/16/21 16:59 20:44 21:54 Anion Gap Estim Creat Clear Calc Estimated GFR POC Glucose 208 H 198 H Random Glucose Calcium Vancomycin Trough 6.0 L 05/17/21 05/17/21 05/17/21 07:21 08:14 11:50 Anion Gap 13 Estim Creat Clear Calc 123.3 Estimated GFR > 60 POC Glucose 166 H 184 H Random Glucose 178 H D Calcium 8.4 Vancomycin Trough Microbiology Microbiology Results: Microbiology 05/15/21 08:56 Blood Culture - Preliminary Blood - Venous No growth after 48 hours. 05/15/21 09:07 Blood Culture - Preliminary Blood - Venous No growth after 48 hours. Assessment and Plan (1) Sepsis: Status: Acute (2) Cellulitis: Status: Acute Assessment and Plan: This is a 60 yo M with a PMH of NIDDM, IBD (on immunosuppresive therapy), chronic pain syndrome who presents to the ED with worsening LUE swelling, erythem and pain, consistent with LUE cellulitis. He will be admitted for further care. 1. LUE cellulitis covering > 50% of limb, in an patient on immunosuppresive therapy (Stelara + Methotrexate) + diabetes IV Vancomyin / Zosyn(3) Blood cultures pending 2. T12 compression fracture May be eligle for kyphoplasty after infection is treated IV morphine for pain 3.IBD (Mainly Crohn's colitis) Stelera and ? MTX (prescribed his GI doctor at [facility]) MTX on hold (not due until next week) 4.DM Sliding scale ADA diet Full Code DVT pptx, Lovenox Quality Stroke Does the patient have a stroke diagnosis?: No VTE Prior VTE?: No VTE Risk Level:: Medical - moderate - high VTE Device Contraindication: Treatment Not Indicated VTE Drug Contraindication: N/A - Med Ordered
[2021-05-17 16:35] LABS: Glucose, Whole Blood 181 mg/dL (60-115)
[2021-05-17 19:58] LABS: Glucose, Whole Blood 226 mg/dL (60-115)
[2021-05-17] MEDS: Mirtazapine 30 MG TABLET PO (20:37)
[2021-05-18] MEDS: Morphine Sulfate 4 MG/ML CARTRIDGE IVPUSH ×3 (01:20→15:29)
[2021-05-18] MEDS: Piperacillin Sodium/Tazobactam 4.5 GM in 0.9 % Sodium Chloride 100 ML IV ×4 (03:54→21:11)
[2021-05-18 04:00] VITALS: BP 118/62; PULSE 116; RESP 17; TEMP 36.5; O2SAT 97
[2021-05-18] MEDS: vancomycin HCL 1,500 MG in 0.9 % Sodium Chloride 500 ML 333.33 MG IV ×2 (04:25→17:07)
[2021-05-18 05:42] LABS: MANUAL DIFF FLAG NO
[2021-05-18 05:48] LABS: Basophils Percent Auto 0.1 % (0-2); Eosinophils Absolute Auto 0.1 X10*3/uL (0.0-0.4); Eosinophils Percent Auto 0.9 % (0-4); Hematocrit 26.6 % (42.0-52.0); Hemoglobin 7.5 g/dl (14.0-18.0); Imm Gran Abs Auto 0.08 X10*3/uL (0.00-0.03); Imm Gran Pct Auto 0.8 % (0.0-0.4); Lymphocytes Absolute Auto 1.3 X10*3/uL (1.2-4.9); Lymphocytes Percent Auto 12.7 % (20-40); Mean Corpuscular HGB Conc 28.2 g/dl (31.0-36.0); Mean Corpuscular Hemoglobin 24.2 pg (27.0-33.0); Mean Corpuscular Volume 85.8 fL (80.0-98.0); Mean Platelet Volume 8.9 fL (9.4-12.4); Monocytes Absolute Auto 0.8 X10*3/uL (0.1-1.2); NRBC Pct Auto 0.2 /100WBC (0.0-0.2); Neutrophils Absolute Auto 7.7 x10*3/uL (2.0-8.3); Neutrophils Percent Auto 77.5 % (45-73); Platelet Count 471 X10*3/uL (160-400); Red Cell Distribution Width 17.9 % (11.0-16.0)
[2021-05-18 06:26] LABS: Alanine Aminotransferase 21 U/L (0-40); Albumin Level 2.9 g/dL (3.5-5.0); Alkaline Phosphatase 80 U/L (39-117); Anion Gap 14 (12-20); Aspartate Amino Transferase 11 U/L (5-37); Bilirubin Total 0.4 mg/dL (0.0-1.0); Blood Urea Nitrogen 12 mg/dL (9-16); Calcium 8.5 mg/dL (8.4-10.2); Carbon Dioxide 29 mmol/L (22-29); Chloride 99 mmol/L (96-108); Creatinine Clr Calc Pharmacy 113.9; Estimated Glomerular Filt Rate > 60; Glucose Fasting 220 mg/dL (60-99); Potassium 3.8 mmol/L (3.3-5.1); Sodium 138 mmol/L (135-145); Total Protein 5.5 g/dL (6.5-8.0)
[2021-05-18 07:28] VITALS: BP 128/69; PULSE 87; RESP 18; TEMP 36.8; O2SAT 94
[2021-05-18 07:40] LABS: Glucose, Whole Blood 208 mg/dL (60-115)
[2021-05-18] MEDS: Folic Acid 1 MG TABLET PO (07:53)
[2021-05-18] MEDS: PARoxetine HCL 40 MG TABLET PO (07:53)
[2021-05-18] MEDS: Insulin Lispro 100 UNIT/ML 3 ML VIAL SUBCUT ×4 (07:53→21:11)
[2021-05-18] MEDS: Sucralfate 1 GM TABLET PO ×2 (07:53→21:11)
[2021-05-18] MEDS: lisinopriL 5 MG TABLET PO (07:53)
[2021-05-18] MEDS: 0.9 % Sodium Chloride Flush 3 ML SYRINGE IVFLUSH ×3 (07:54→21:12)
[2021-05-18 11:11] VITALS: BP 151/77; PULSE 98; RESP 18; TEMP 37; O2SAT 94
[2021-05-18 11:33] LABS: Glucose, Whole Blood 218 mg/dL (60-115)
[2021-05-18] MEDS: Enoxaparin Sodium 40 MG/0.4 ML SYRINGE SUBCUT (12:01)
[2021-05-18 13:56] LABS: Vancomycin Trough 13.9 mcg/mL (10.0-20.0)
--- NOTE | 2021-05-18 14:24 | P.PNIM_ITS ---
Subjective Subjective Date of Service: 05/18/21 Interval History: Notes improvement in swelling and redness over night. States able to make a fist again Review of Systems denies chest pain Denies shortness of breath Denies nausea vomiting diarrhea Physical Exam Vital Signs: Vital Signs: Last Vital Signs Temp 98.6 F 05/18/21 11:11 Pulse 98 05/18/21 11:11 Resp 18 05/18/21 11:11 BP 151/77 H 05/18/21 11:11 Pulse Ox 94 05/18/21 11:11 BMI result Body Mass Index 31.7 Const: Other: awake alert oriented x3 no acute distress Resp: Other: clear bilaterally. No rales rhonchi wheezes Cardio: Other: no S4; positive S1-S2; no murmurs rubs Extrem: Other: moderate edema mid forearm distally with mild erythema Objective Data Active Medications Acetaminophen (Acetaminophen 325 Mg Tablet) 650 mg PO Q6H PRN PRN Reason: Pain, Mild (Pain Scale 1-3) Last Admin: 05/16/21 20:17 Dose: 650 mg Documented by: KAREN Enoxaparin Sodium (Enoxaparin Sodium 40 Mg/0.4 Ml Syringe) 40 mg SUBCUT Q24H [facility] Last Admin: 05/18/21 12:01 Dose: 40 mg Documented by: SAVANNAH Folic Acid (Folic Acid 1 Mg Tablet) 1 mg PO DAILY [facility] Last Admin: 05/18/21 07:53 Dose: 1 mg Documented by: SAVANNAH Hydroxyzine HCl (Hydroxyzine Hcl 50 Mg Tablet) 100 mg PO BEDTIME PRN PRN Reason: Anxiety Last Admin: 05/16/21 20:17 Dose: 100 mg Documented by: KAREN Piperacillin Sod/Tazobactam (Sod 4.5 gm/ Sodium Chloride) 100 mls @ 200 mls/hr IV Q6H [facility] Last Infusion: 05/18/21 09:12 Dose: 0 mls/hr Documented by: SAVANNAH Vancomycin HCl 1,500 mg/ (Sodium Chloride) 500 mls @ 333.333 mls/hr IV Q12H [facility] Last Infusion: 05/18/21 05:59 Dose: 0 mls/hr Documented by: SHALINI Insulin Human Lispro (Insulin Lispro 100 Unit/Ml 3 Ml Vial) 0 unit SUBCUT QIDACHS [facility]; Protocol Last Admin: 05/18/21 12:01 Dose: 4 unit Documented by: SAVANNAH Lisinopril (Lisinopril 5 Mg Tablet) 5 mg PO DAILY [facility]; Protocol Last Admin: 05/18/21 07:53 Dose: 5 mg Documented by: SAVANNAH Melatonin (Melatonin 3 Mg Tablet) 6 mg PO BEDTIME PRN PRN Reason: Insomnia Last Admin: 05/16/21 20:18 Dose: 6 mg Documented by: CASTKIM Mirtazapine (Mirtazapine 30 Mg Tablet) 30 mg PO BEDTIME [facility] Last Admin: 05/17/21 20:37 Dose: 30 mg Documented by: PARESH Morphine Sulfate (Morphine Sulfate 4 Mg/Ml Cartridge) 4 mg IVPUSH Q4H PRN; Prot ocol PRN Reason: Pain, Severe (Pain Scale 7-10) Last Admin: 05/18/21 08:00 Dose: 4 mg Documented by: SAVANNAH Ondansetron HCl (Ondansetron Hcl 4 Mg/2 Ml Vial) 4 mg IVPUSH Q8H PRN PRN Reason: Nausea and Vomiting Paroxetine HCl (Paroxetine Hcl 40 Mg Tablet) 40 mg PO DAILY [facility] Last Admin: 05/18/21 07:53 Dose: 40 mg Documented by: SAVANNAH Pharmacy Consult (Consult Rx Perform Med Rec) 1 each MISCELLANE ONCE PRN PRN Reason: Consult order Pharmacy Consult (Consult Rx Vancomycin Dosing) 1 each MISCELLANE DAILY PRN PRN Reason: Consult order Sodium Chloride (0.9 % Sodium Chloride Flush 3 Ml Syringe) 3 ml IVFLUSH QSHIFT [facility] Last Admin: 05/18/21 07:54 Dose: 3 ml Documented by: SAVANNAH Sucralfate (Sucralfate 1 Gm Tablet) 1 gm PO BID [facility] Last Admin: 05/18/21 07:53 Dose: 1 gm Documented by: SAVANNAH Labs CBC & Chem 7: 05/18/21 05:18 05/18/21 05:18 Labs: Laboratory Results - last 24 hr 05/17/21 05/17/21 05/18/21 16:28 19:38 05:18 MCV 85.8 MCH 24.2 L MCHC 28.2 L RDW 17.9 H Plt Count 471 H MPV 8.9 L Immature Gran % (Auto) 0.8 H Neut % (Auto) 77.5 H Lymph % (Auto) 12.7 L [place] % (Auto) 8.0 Eos % (Auto) 0.9 Baso % (Auto) 0.1 Lymph # (Auto) 1.3 [place] # (Auto) 0.8 Eos # (Auto) 0.1 Baso # (Auto) 0.0 Abs Immat Gran (auto) 0.08 H Absolute Neuts (auto) 7.7 Absolute Nucleated RBC 0.020 H Nucleated RBC % (auto) 0.2 Anion Gap Estim Creat Clear Calc Estimated GFR POC Glucose 181 H 226 H Fasting Glucose Calcium Total Bilirubin AST ALT Alkaline Phosphatase Total Protein Albumin Vancomycin Trough 05/18/21 05/18/21 05/18/21 05:18 07:26 11:09 MCV MCH MCHC RDW Plt Count MPV Immature Gran % (Auto) Neut % (Auto) Lymph % (Auto) [place] % (Auto) Eos % (Auto) Baso % (Auto) Lymph # (Auto) [place] # (Auto) Eos # (Auto) Baso # (Auto) Abs Immat Gran (auto) Absolute Neuts (auto) Absolute Nucleated RBC Nucleated RBC % (auto) Anion Gap 14 Estim Creat Clear Calc 113.9 Estimated GFR > 60 POC Glucose 208 H 218 H Fasting Glucose 220 H Calcium 8.5 Total Bilirubin 0.4 AST 11 ALT 21 Alkaline Phosphatase 80 Total Protein 5.5 L Albumin 2.9 L Vancomycin Trough 05/18/21 12:47 MCV MCH MCHC RDW Plt Count MPV Immature Gran % (Auto) Neut % (Auto) Lymph % (Auto) [place] % (Auto) Eos % (Auto) Baso % (Auto) Lymph # (Auto) [place] # (Auto) Eos # (Auto) Baso # (Auto) Abs Immat Gran (auto) Absolute Neuts (auto) Absolute Nucleated RBC Nucleated RBC % (auto) Anion Gap Estim Creat Clear Calc Estimated GFR POC Glucose Fasting Glucose Calcium Total Bilirubin AST ALT Alkaline Phosphatase Total Protein Albumin Vancomycin Trough 13.9 Microbiology Microbiology Results: Microbiology 05/15/21 08:56 Blood Culture - Preliminary Blood - Venous No growth after 48 hours. 05/15/21 09:07 Blood Culture - Preliminary Blood - Venous No growth after 48 hours. Assessment and Plan (1) Cellulitis: Status: Acute Assessment and Plan: This is a 60 yo M with a PMH of NIDDM, IBD (on immunosuppresive therapy), chronic pain syndrome who presents to the ED with worsening LUE swelling, eryth em and pain, consistent with LUE cellulitis. Improving on therapies 1. LUE cellulitis covering > 50% of limb, in an patient on immunosuppresive therapy (Stelara + Methotrexate) + diabetes IV Vancomyin / Zosyn(4) Blood cultures x 2 negative(48hrs) Venous duplex pending 2. T12 compression fracture May be eligle for kyphoplasty after infection is treated IV morphine for pain 3.IBD (Mainly Crohn's colitis) Stelera and ? MTX (prescribed his GI doctor at [facility] clinic) MTX on hold (not due until next week) 4.DM Sliding scale ADA diet Full Code DVT pptx, Lovenox Quality Stroke Does the patient have a stroke diagnosis?: No VTE Prior VTE?: No VTE Risk Level:: Medical - moderate - high VTE Device Contraindication: Treatment Not Indicated VTE Drug Contraindication: N/A - Med Ordered
[2021-05-18 16:00] VITALS: BP 126/70; PULSE 103; RESP 16; TEMP 36.2; O2SAT 95
[2021-05-18 16:19] LABS: Glucose, Whole Blood 186 mg/dL (60-115)
[2021-05-18 19:03] VITALS: BP 143/71; PULSE 86; RESP 16; TEMP 36.3; O2SAT 91
[2021-05-18 20:07] LABS: Glucose, Whole Blood 247 mg/dL (60-115)
[2021-05-18] MEDS: Mirtazapine 30 MG TABLET PO (21:11)
[2021-05-19] VITALS (14 sets, daily range): BP systolic 104–169; BP diastolic 64–88; PULSE 72–119; RESP 16–20; TEMP 36.3–37.3; O2SAT 90–100
[2021-05-19] MEDS: diphenhydrAMINE HCL 25 MG TABLET PO (00:15)
[2021-05-19] MEDS: Piperacillin Sodium/Tazobactam 4.5 GM in 0.9 % Sodium Chloride 100 ML IV ×4 (03:42→23:27)
[2021-05-19] MEDS: vancomycin HCL 1,500 MG in 0.9 % Sodium Chloride 500 ML 333.33 MG IV ×2 (03:46→18:30)
[2021-05-19 05:46] LABS: MANUAL DIFF FLAG NO
[2021-05-19 05:52] LABS: Basophils Percent Auto 0.1 % (0-2); Eosinophils Absolute Auto 0.1 X10*3/uL (0.0-0.4); Eosinophils Percent Auto 1.1 % (0-4); Hematocrit 24.8 % (42.0-52.0); Hemoglobin 7.1 g/dl (14.0-18.0); Imm Gran Abs Auto 0.05 X10*3/uL (0.00-0.03); Imm Gran Pct Auto 0.6 % (0.0-0.4); Lymphocytes Absolute Auto 1.1 X10*3/uL (1.2-4.9); Lymphocytes Percent Auto 13.1 % (20-40); Mean Corpuscular HGB Conc 28.6 g/dl (31.0-36.0); Mean Corpuscular Hemoglobin 24.7 pg (27.0-33.0); Mean Corpuscular Volume 86.1 fL (80.0-98.0); Mean Platelet Volume 8.6 fL (9.4-12.4); Monocytes Absolute Auto 0.7 X10*3/uL (0.1-1.2); Monocytes Percent Auto 7.8 % (2-11); Neutrophils Absolute Auto 6.5 x10*3/uL (2.0-8.3); Neutrophils Percent Auto 77.3 % (45-73); Platelet Count 382 X10*3/uL (160-400); Red Blood Count 2.88 X10*6/uL (4.60-5.80); Red Cell Distribution Width 17.7 % (11.0-16.0); White Blood Count 8.4 X10*3/uL (4.8-10.8)
[2021-05-19 06:13] LABS: Alanine Aminotransferase 16 U/L (0-40); Albumin Level 2.7 g/dL (3.5-5.0); Alkaline Phosphatase 73 U/L (39-117); Anion Gap 13 (12-20); Aspartate Amino Transferase 11 U/L (5-37); Bilirubin Total < 0.2 mg/dL (0.0-1.0); Blood Urea Nitrogen 10 mg/dL (9-16); Calcium 8.4 mg/dL (8.4-10.2); Carbon Dioxide 29 mmol/L (22-29); Chloride 103 mmol/L (96-108); Creatinine Clr Calc Pharmacy 105.9; Estimated Glomerular Filt Rate > 60; Glucose Fasting 176 mg/dL (60-99); Potassium 3.9 mmol/L (3.3-5.1); Sodium 141 mmol/L (135-145); Total Protein 5.2 g/dL (6.5-8.0)
[2021-05-19] MEDS: Morphine Sulfate 4 MG/ML CARTRIDGE IVPUSH ×3 (06:36→23:28)
[2021-05-19 07:56] LABS: Glucose, Whole Blood 153 mg/dL (60-115)
[2021-05-19] MEDS: Insulin Lispro 100 UNIT/ML 3 ML VIAL SUBCUT ×2 (08:23→11:49)
[2021-05-19] MEDS: PARoxetine HCL 40 MG TABLET PO (08:24)
[2021-05-19] MEDS: Folic Acid 1 MG TABLET PO (08:24)
[2021-05-19] MEDS: lisinopriL 5 MG TABLET PO (08:24)
[2021-05-19] MEDS: 0.9 % Sodium Chloride Flush 3 ML SYRINGE IVFLUSH ×2 (08:24→23:37)
[2021-05-19] MEDS: Sucralfate 1 GM TABLET PO ×2 (08:24→21:24)
--- NOTE | 2021-05-19 10:35 | MHC.CM.PN ---
Addendum entered by Aminata Hoyt 05/19/21 10:41: COPY OF FIRST DELIVERED IMM (05/15) NOT FOUND IN CHART. Original Note: PLAN IS HOME TODAY ON PO ABX. NO NEED FOR SERVICES. RN AWARE OF PLAN. IMM 05/19 IN CHART
[2021-05-19 11:48] LABS: Glucose, Whole Blood 266 mg/dL (60-115)
[2021-05-19] MEDS: Enoxaparin Sodium 40 MG/0.4 ML SYRINGE SUBCUT (11:49)
[2021-05-19 16:05] LABS: Glucose, Whole Blood 163 mg/dL (60-115)
[2021-05-19] MEDS: Furosemide 20 MG/2 ML VIAL IVPUSH (17:54)
[2021-05-19 20:09] LABS: Glucose, Whole Blood 172 mg/dL (60-115)
[2021-05-19] MEDS: Mirtazapine 30 MG TABLET PO (21:24)
[2021-05-19] MEDS: Melatonin 3 MG TABLET 6 MG PO (23:28)
[2021-05-20 01:25] LABS: Vancomycin Trough 20.2 mcg/mL (10.0-20.0)
[2021-05-20 04:00] VITALS: RESP 20
[2021-05-20 05:07] LABS: MANUAL DIFF FLAG NO
[2021-05-20 05:17] LABS: Basophils Percent Auto 0.1 % (0-2); Eosinophils Absolute Auto 0.1 X10*3/uL (0.0-0.4); Eosinophils Percent Auto 1.4 % (0-4); Hematocrit 29.1 % (42.0-52.0); Hemoglobin 8.7 g/dl (14.0-18.0); Imm Gran Abs Auto 0.07 X10*3/uL (0.00-0.03); Imm Gran Pct Auto 0.9 % (0.0-0.4); Lymphocytes Absolute Auto 1.3 X10*3/uL (1.2-4.9); Lymphocytes Percent Auto 16.7 % (20-40); Mean Corpuscular HGB Conc 29.9 g/dl (31.0-36.0); Mean Corpuscular Hemoglobin 25.7 pg (27.0-33.0); Mean Corpuscular Volume 85.8 fL (80.0-98.0); Mean Platelet Volume 8.8 fL (9.4-12.4); Monocytes Absolute Auto 0.6 X10*3/uL (0.1-1.2); Monocytes Percent Auto 8.3 % (2-11); Neutrophils Absolute Auto 5.6 x10*3/uL (2.0-8.3); Neutrophils Percent Auto 72.6 % (45-73); Platelet Count 389 X10*3/uL (160-400); Red Blood Count 3.39 X10*6/uL (4.60-5.80); Red Cell Distribution Width 17.1 % (11.0-16.0); White Blood Count 7.7 X10*3/uL (4.8-10.8)
[2021-05-20] MEDS: Piperacillin Sodium/Tazobactam 4.5 GM in 0.9 % Sodium Chloride 100 ML IV (05:31)
[2021-05-20 05:53] LABS: Alanine Aminotransferase 16 U/L (0-40); Albumin Level 2.8 g/dL (3.5-5.0); Alkaline Phosphatase 76 U/L (39-117); Anion Gap 14 (12-20); Aspartate Amino Transferase 11 U/L (5-37); Bilirubin Total 0.2 mg/dL (0.0-1.0); Blood Urea Nitrogen 8 mg/dL (9-16); Calcium 8.2 mg/dL (8.4-10.2); Carbon Dioxide 29 mmol/L (22-29); Chloride 99 mmol/L (96-108); Creatinine Clr Calc Pharmacy 106.9; Estimated Glomerular Filt Rate > 60; Glucose Fasting 180 mg/dL (60-99); Potassium 3.5 mmol/L (3.3-5.1); Sodium 138 mmol/L (135-145); Total Protein 5.5 g/dL (6.5-8.0)
[2021-05-20 07:40] VITALS: BP 153/87; PULSE 104; RESP 20; TEMP 36.2; O2SAT 92
[2021-05-20 08:13] LABS: Glucose, Whole Blood 161 mg/dL (60-115)
[2021-05-20] MEDS: Insulin Lispro 100 UNIT/ML 3 ML VIAL SUBCUT (08:29)
[2021-05-20] MEDS: PARoxetine HCL 40 MG TABLET PO (08:29)
[2021-05-20] MEDS: 0.9 % Sodium Chloride Flush 3 ML SYRINGE IVFLUSH (08:29)
[2021-05-20] MEDS: Folic Acid 1 MG TABLET PO (08:29)
[2021-05-20] MEDS: lisinopriL 5 MG TABLET PO (08:30)
[2021-05-20] MEDS: Sucralfate 1 GM TABLET PO (08:30)
[2021-05-20] MEDS: vancomycin HCL 1,250 MG in 0.9 % Sodium Chloride 250 ML 166.67 MG IV (09:41)
--- NOTE | 2021-05-20 09:46 | PM.DS ---
DS: Providers Provider Date of Service: 05/20/21 Date of admission: 05/15/21 10:54 Primary care physician: Luke Kamara MD DS: Diagnosis Discharge Diagnosis (1) Cellulitis: Status: Acute DS: Summary Hospital Course Hospital Course: 60 yo M with a PMH of NIDDM, IBD (on immunosuppresive therapy), chronic pain syndrome who presents to the ED with worsening LUE swelling, erythem and pain, consistent with LUE cellulitis. patient admitted to the hospital placed on IV vancomycin and Zosyn. Ultrasound of the left upper extremity failed to demonstrate a thrombus. He continue to improve over the next several days; during his stay his chronic anemia worsened which required transfusion of 2 units of packed red cells with appropriate response of his hemoglobin. On the day of discharge, he is feeling well and is able to make a fist. His hemoglobin is stable and he is medically suitable for discharge to follow-up with his PCP Time Spent with Patient Time attestation: Total time spent providing and/or coordinating discharge services: Discharge coordination time: Greater than 30 minutes Quality: Stroke Does the patient have a stroke diagnosis?: No Physical Exam Vital Signs: Vital Signs: Last Vital Signs Temp 97.2 F 05/20/21 07:40 Pulse 104 H 05/20/21 07:40 Resp 20 05/20/21 07:40 BP 153/87 H 05/20/21 07:40 Pulse Ox 92 05/20/21 07:40 BMI result Body Mass Index 31.7 Const: Other: awake alert oriented x3 no acute distress Resp: Other: clear bilaterally. No rales rhonchi wheezes Cardio: Other: no S4; positive S1-S2; no murmurs rubs Extrem: Other: minimal erythema left hand with marked decrease in edema DS: Data Data Completed and Pending Labs on day of discharge: Laboratory Results - last 24 hr 05/19/21 05/19/21 05/19/21 11:31 11:58 16:01 WBC RBC Hgb Hct MCV MCH MCHC RDW Plt Count MPV Immature Gran % (Auto) Neut % (Auto) Lymph % (Auto) [place] % (Auto) Eos % (Auto) Baso % (Auto) Lymph # (Auto) [place] # (Auto) Eos # (Auto) Baso # (Auto) Abs Immat Gran (auto) Absolute Neuts (auto) Absolute Nucleated RBC Nucleated RBC % (auto) Sodium Potassium Chloride Carbon Dioxide Anion Gap BUN Creatinine Estim Creat Clear Calc Estimated GFR POC Glucose 266 H 163 H Fasting Glucose Calcium Total Bilirubin AST ALT Alkaline Phosphatase Total Protein Albumin Vancomycin Trough Blood Type O Positive Antibody Screen NEGATIVE Crossmatch See Detail 05/19/21 05/20/21 05/20/21 19:49 00:52 03:54 WBC 7.7 RBC 3.39 L Hgb 8.7 L D Hct 29.1 L MCV 85.8 MCH 25.7 L MCHC 29.9 L RDW 17.1 H Plt Count 389 MPV 8.8 L Immature Gran % (Auto) 0.9 H Neut % (Auto) 72.6 Lymph % (Auto) 16.7 L [place] % (Auto) 8.3 Eos % (Auto) 1.4 Baso % (Auto) 0.1 Lymph # (Auto) 1.3 [place] # (Auto) 0.6 Eos # (Auto) 0.1 Baso # (Auto) 0.0 Abs Immat Gran (auto) 0.07 H Absolute Neuts (auto) 5.6 Absolute Nucleated RBC 0.000 Nucleated RBC % (auto) 0.0 Sodium Potassium Chloride Carbon Dioxide Anion Gap BUN Creatinine Estim Creat Clear Calc Estimated GFR POC Glucose 172 H Fasting Glucose Calcium Total Bilirubin AST ALT Alkaline Phosphatase Total Protein Albumin Vancomycin Trough 20.2 H Blood Type Antibody Screen Crossmatch 05/20/21 05/20/21 03:54 07:39 WBC RBC Hgb Hct MCV MCH MCHC RDW Plt Count MPV Immature Gran % (Auto) Neut % (Auto) Lymph % (Auto) [place] % (Auto) Eos % (Auto) Baso % (Auto) Lymph # (Auto) [place] # (Auto) Eos # (Auto) Baso # (Auto) Abs Immat Gran (auto) Absolute Neuts (auto) Absolute Nucleated RBC Nucleated RBC % (auto) Sodium 138 Potassium 3.5 Chloride 99 Carbon Dioxide 29 Anion Gap 14 BUN 8 L Creatinine 0.98 Estim Creat Clear Calc 106.9 Estimated GFR > 60 POC Glucose 161 H Fasting Glucose 180 H Calcium 8.2 L Total Bilirubin 0.2 AST 11 ALT 16 Alkaline Phosphatase 76 Total Protein 5.5 L Albumin 2.8 L Vancomycin Trough Blood Type Antibody Screen Crossmatch Preliminary micro results at discharge 05/15/21 08:56 Blood Culture - Preliminary Blood - Venous No growth after 48 hours. 05/15/21 09:07 Blood Culture - Preliminary Blood - Venous No growth after 48 hours. Discharge Plan Discharge Patient Disposition: Home, Self-Care Discharge Diagnosis: left upper extremity cellulitis Referrals: Luke Kamara MD [Primary Care Provider] - 1 Week Discharge Medications: New doxycycline hyclate 100 mg capsule 100 mg PO BID Qty: 20 RF: 0 Continued Nucynta ER 50 mg tablet extended release 12 hr 50 mg PO DAILY Qty: 30 RF: 0 sucralfate 1 gram tablet 1 g PO BID Qty: 180 RF: 1 glyburide 5 mg tablet 5 mg PO BID RF: 0 mirtazapine 30 mg tablet 30 mg PO BEDTIME RF: 0 lisinopril 5 mg tablet 5 mg PO DAILY RF: 0 folic acid 1 mg tablet 1 tab PO DAILY RF: 0 paroxetine HCl 40 mg tablet 40 mg PO DAILY RF: 0 melatonin 5 mg tablet 1 tab PO BEDTIME PRN (Reason: Insomnia) RF: 0 hydroxyzine pamoate 50 mg capsule 2 cap PO BEDTIME PRN (Reason: Anxiety) RF: 0 Stelara 90 mg/mL Syringe 90 mg SUBCUT Q8W RF: 0 methotrexate sodium 2.5 mg tablet 2.5 mg PO TU RF: 0 Discharge Orders: Discharge Order (Routine); Ordered 05/20/21 Ordered By: Chaitanya Kessler Diet: advance to usual diet Activity on Discharge: As tolerated Stand Alone Forms: Patient Portal Discharge page Care Plan Goals: complete course of doxycycline Health Concerns: follow-up with PCP Plan of Treatment: outpatient follow-up Assessment: improved at discharge
--- NOTE | 2021-05-20 10:39 | MHC.CM.PN ---
PT WILL DC HOME TODAY WITH NO SERVICES FAMILY TO TRANSPORT
== END 2021-05-20 11:27 | disposition home or self-care (01) | DRG 872 ==
LOC: HO.ED 09:48 → HO.EDOVER 11:07 → HO.S3 22:39
PROVIDERS: Nurse Practitioner Acute Care; Admitting Provider Family Medicine; Emergency Provider Emergency Medicine; PCP Internal Medicine; Visit Provider Hospitalist
DX: A41.9 Sepsis, unspecified organism (principal); L03.114 Cellulitis of left upper limb; K50.90 Crohn's disease, unspecified, without complications; M48.54XA Collapsed vertebra, not elsewhere classified, thoracic region, initial encounter for fracture; D72.829 Elevated white blood cell count, unspecified; K52.3 Indeterminate colitis; G89.4 Chronic pain syndrome; Z20.822 Contact with and (suspected) exposure to COVID-19; E11.9 Type 2 diabetes mellitus without complications; E66.9 Obesity, unspecified; Z68.31 Body mass index [BMI] 31.0-31.9, adult; Z79.899 Other long term (current) drug therapy
CPT/HCPCS: 36415; 72100; 73080; 80048; 80053; 80076; 80202; 81001; 81003; 82947; 83605; 83735; 85025; 85027; 85652; 86140; 86850; 86900; 86901; 86923; 87040; 87635; 93971; 96365; 96367; 99285; J1650; J1940; J2270; J2543; J3370; P9016; Q0163

== ENCOUNTER 2021-06-01 21:36 | Inpatient (IN) | payer MEDICARE, MEDICAID, SELFPAY ==
--- NOTE | ~2021-06-01 | CT_ITS ---
EXAMINATION: CT ABDOMEN AND PELVIS WITH CONTRAST CLINICAL INFORMATION: Left upper quadrant pain. GI bleed. History of Crohn's disease. COMPARISON: 04/02/2021 CT . Radiographs from 05/15/2021. TECHNIQUE: Multidetector volumetric images were obtained from the superior aspect of the liver through the pubic symphysis following administration 85 mL of Omnipaque 350 intravenous contrast. Sagittal and coronal reformatted images were obtained on the technologist's workstation. Oral contrast: No This CT examination was performed using dose optimization techniques as appropriate, variously including the following: *Automated exposure control *Adjustment of mA and/or kV according to patient size (this includes techniques or standardized protocols for targeted exams where dose is matched to indication/reason for exam; i.e. extremities or head) *Use of iterative reconstruction technique DLP: 987 mGy-cm FINDINGS: LUNG BASES: Right basilar atelectasis. The visualized cardiac structures are unremarkable. Elevated right hemidiaphragm. LIVER, GALLBLADDER, AND BILIARY TREE: The liver is normal in size, shape, and attenuation. No focal hepatic lesion or biliary ductal dilatation is present. Cholecystectomy. PANCREAS: Unremarkable. SPLEEN: Unremarkable. ADRENAL GLANDS: Unremarkable. KIDNEYS AND URETERS: The kidneys are normal in size, shape, and attenuation. No hydronephrosis or hydroureter. Left lower pole 0.3 cm calculus is 14 cm from the posterior axillary line. There are 2 right lower pole calculi measuring up to 0.4 cm, 16 cm from the posterior axillary line. There is also a right upper pole small calculus. BLADDER: Unremarkable. GASTROINTESTINAL TRACT: The stomach is unremarkable. Normal caliber of the small bowel. There is no obstruction. Normal appendix. No colonic wall thickening or inflammatory change. Minimal colonic diverticulosis without diverticulitis. No free air or free fluid. ABDOMINAL WALL: Fat-containing bilateral inguinal hernias. Anasarca. LYMPH NODES: Normal. VASCULAR: Unremarkable. PELVIC VISCERA: The prostate and seminal vesicles are unremarkable. OSSEOUS STRUCTURES: As seen on the prior radiograph, a new from 04/02/2021 there are compression deformities involving the T10 and T12 vertebral bodies. At the T10 level there is approximately 70% loss of vertebral body height centrally. At the T12 level there is approximately 50% loss of vertebral body height anteriorly. Vacuum disc appearance. Degenerative changes throughout the spine. Bilateral femoral head avascular necrosis. CT/CT abdomen pelvis w con IMPRESSION: No acute finding in the abdomen or pelvis. No bowel wall thickening or inflammation. Renal calculi noted. No hydronephrosis. T10 and T12 vertebral body compression deformities, as seen on the recent prior radiograph. These are new from 04/02/2021. Fleischner guidelines were followed.
[2021-06-01 21:47] VITALS: BP 179/84; PULSE 94; RESP 16; TEMP 36.6; O2SAT 98; BMI 31.7
[2021-06-01 23:50] LABS: MANUAL DIFF FLAG NO
[2021-06-02 00:11] LABS: Alanine Aminotransferase 26 U/L (0-40); Albumin Level 3.3 g/dL (3.5-5.0); Alkaline Phosphatase 81 U/L (39-117); Anion Gap 13 (12-20); Aspartate Amino Transferase 13 U/L (5-37); Bilirubin Direct < 0.2 mg/dL (0.0-0.5); Bilirubin Total 0.3 mg/dL (0.0-1.0); Blood Urea Nitrogen 28 mg/dL (9-16); Calcium 9.1 mg/dL (8.4-10.2); Carbon Dioxide 25 mmol/L (22-29); Chloride 110 mmol/L (96-108); Creatinine Clr Calc Pharmacy 71.3; Estimated Glomerular Filt Rate 49; Glucose Random 289 mg/dL (60-115); Lipase 55 U/L (8-78); Potassium 4.6 mmol/L (3.3-5.1); Sodium 143 mmol/L (135-145)
--- NOTE | 2021-06-02 00:57 | ED.ABDPAIN ---
HPI - Abdominal Pain General Chief Complaint: Abdominal Pain Stated Complaint: upper abd pain Time Seen by Provider: 06/02/21 00:56 Source: patient Mode of arrival: ambulatory History of Present Illness HPI narrative: Patient is 60 years old with history of diabetes, Crohn's disease on Stelara, hypertension, CKD, renal stone, thalamic pain syndrome, tubular adenoma colon currently on [facility] for IBD comes here for 2 days of left upper abdominal pain and bright red rectal bleeding multiple times today. Patient was admitted here 05/15 for cellulitis of left arm and noticed to have low hemoglobin of 7.5 was given 2 units of blood. Patient denies any fever no nausea no vomiting Related Data Home Medications Medication Instructions Recorded Confirmed glyburide 5 mg tablet 5 mg PO BID 03/22/20 06/02/21 lisinopril 5 mg tablet 5 mg PO DAILY 03/22/20 06/02/21 mirtazapine 30 mg tablet 30 mg PO BEDTIME 03/22/20 06/02/21 folic acid 1 mg tablet 1 mg PO DAILY 02/14/21 06/02/21 melatonin 5 mg tablet 1 tab PO BEDTIME PRN 02/14/21 06/02/21 paroxetine HCl 40 mg tablet 40 mg PO DAILY 02/14/21 06/02/21 hydroxyzine pamoate 50 mg capsule 100 mg PO BEDTIME PRN 04/02/21 06/02/21 ustekinumab 90 mg/mL subcutaneous 90 mg SUBCUT Q8W 04/02/21 06/02/21 syringe ([facility]) methotrexate sodium 2.5 mg tablet 2.5 mg PO TU 05/15/21 06/02/21 Previous Rx's Medication Instructions Recorded tapentadol 50 mg tablet,extended 50 mg PO DAILY #30 tab 05/11/21 release,12 hr ([facility]) sucralfate 1 gram tablet 1 g PO BID #180 tab 05/17/21 doxycycline hyclate 100 mg capsule 100 mg PO BID #20 cap 05/20/21 Allergies Allergy/AdvReac Type Severity Reaction Status Date / Time No Known Allergies Allergy Verified 04/02/21 16:05 [No Known Allergies*] none Allergy Unknown Unknown Uncoded 04/02/21 16:05 Review of Systems Review of Systems Yes all other systems are reviewed and are negative Physical Exam Vital Signs: Vital Signs: Last Vital Signs Temp 97.9 F 06/01/21 21:47 Pulse 74 06/02/21 04:18 Resp 18 06/02/21 04:18 BP 138/68 06/02/21 04:18 Pulse Ox 97 06/02/21 04:18 BMI result Body Mass Index 31.7 Appearance: Alert. Oriented X3. No acute distress. Eyes: Pallor+ no active ENT: Pharynx normal. Oral Mucosa moist Neck: Normal inspection. Neck supple. CVS: Normal heart rate and rhythm. Pulses normal. Respiratory: No respiratory distress. Equal air entry bilateral, no wheezing/rales/rhonchi Abdomen: Soft , left upper quadrant tenderness no rebound tenderness or guarding Bowel sounds are present, no mass palpable, no CVA tenderness Skin: Skin warm and dry. Normal skin color. Normal skin turgor. Extremities: 2+ lower extremity edema. No calf tenderness Neuro: Oriented X 3. MDM - Abdominal Pain MDM Narrative Medical decision making narrative: Patient with history of Crohn disease and IBD on immunosuppressive treatment with GI bleed stable H&H at this time but recently patient received 2 units of blood last week. Also noticed to have GOLDEN with creatinine of 1.47 increased from 0.98, 10 days ago will admit for observation. Patient did not have any significant it rectal bleed while in the ER CT scan negative for any acute inflammation, normal CRP Lab Data Attestation: I reviewed the patient's lab results. Result diagrams: 06/01/21 23:43 06/01/21 23:43 Labs: Lab Results 06/01/21 06/01/21 06/02/21 Range/Units 23:43 23:43 01:42 WBC 7.6 (4.8-10.8) X10*3/uL RBC 3.43 L (4.60-5.80) X10*6/uL Hgb 8.6 L (14.0-18.0) g/dl Hct 30.0 L (42.0-52.0) % MCV 87.5 (80.0-98.0) fL MCH 25.1 L (27.0-33.0) pg MCHC 28.7 L (31.0-36.0) g/dl RDW 17.9 H (11.0-16.0) % Plt Count 668 H D (160-400) X10*3/uL MPV 9.1 L (9.4-12.4) fL Immature Gran % (Auto) 2.1 H (0.0-0.4) % Neut % (Auto) 70.9 (45-73) % Lymph % (Auto) 18.9 L (20-40) % Desha % (Auto) 8.1 (2-11) % Eos % (Auto) 0.0 (0-4) % Baso % (Auto) 0.0 (0-2) % Lymph # (Auto) 1.4 (1.2-4.9) X10*3/uL Desha # (Auto) 0.6 (0.1-1.2) X10*3/uL Eos # (Auto) 0.0 (0.0-0.4) X10*3/uL Baso # (Auto) 0.0 (0.0-0.2) X10*3/uL Abs Immat Gran (auto) 0.16 H (0.00-0.03) X10*3/uL Absolute Neuts (auto) 5.4 (2.0-8.3) x10*3/uL Absolute Nucleated RBC 0.000 (0.0-0.012) X10*3/uL Nucleated RBC % (auto) 0.0 (0.0-0.2) /100WBC PT 11.7 (9.9-13.0) SEC INR 1.0 (0.9-1.1) APTT 24.2 (24.1-38.0) SEC Sodium 143 (135-145) mmol/L Potassium 4.6 D (3.3-5.1) mmol/L Chloride 110 H (96-108) mmol/L Carbon Dioxide 25 (22-29) mmol/L Anion Gap 13 (12-20) BUN 28 H D (9-16) mg/dL Creatinine 1.47 H (0.5-1.4) mg/dL Estim Creat Clear Calc 71.3 Estimated GFR 49 Random Glucose 289 H D (60-115) mg/dL Calcium 9.1 D (8.4-10.2) mg/dL Total Bilirubin 0.3 (0.0-1.0) mg/dL Direct Bilirubin < 0.2 (0.0-0.5) mg/dL AST 13 (5-37) U/L ALT 26 (0-40) U/L Alkaline Phosphatase 81 (39-117) U/L C-Reactive Protein 0.46 (< or = 0.50) mg/dL Total Protein 6.0 L (6.5-8.0) g/dL Albumin 3.3 L (3.5-5.0) g/dL Lipase 55 (8-78) U/L Stool Occult Blood (NEGATIVE) COVID-19 (KRISTOPHER) (Negative) COVID-19 Clin Com Blood Type Antibody Screen 06/02/21 06/02/21 06/02/21 Range/Units 01:42 02:15 02:56 WBC (4.8-10.8) X10*3/uL RBC (4.60-5.80) X10*6/uL Hgb (14.0-18.0) g/dl Hct (42.0-52.0) % MCV (80.0-98.0) fL MCH (27.0-33.0) pg MCHC (31.0-36.0) g/dl RDW (11.0-16.0) % Plt Count (160-400) X10*3/uL MPV (9.4-12.4) fL Immature Gran % (Auto) (0.0-0.4) % Neut % (Auto) (45-73) % Lymph % (Auto) (20-40) % Desha % (Auto) (2-11) % Eos % (Auto) (0-4) % Baso % (Auto) (0-2) % Lymph # (Auto) (1.2-4.9) X10*3/uL Desha # (Auto) (0.1-1.2) X10*3/uL Eos # (Auto) (0.0-0.4) X10*3/uL Baso # (Auto) (0.0-0.2) X10*3/uL Abs Immat Gran (auto) (0.00-0.03) X10*3/uL Absolute Neuts (auto) (2.0-8.3) x10*3/uL Absolute Nucleated RBC (0.0-0.012) X10*3/uL Nucleated RBC % (auto) (0.0-0.2) /100WBC PT (9.9-13.0) SEC INR (0.9-1.1) APTT (24.1-38.0) SEC Sodium (135-145) mmol/L Potassium (3.3-5.1) mmol/L Chloride (96-108) mmol/L Carbon Dioxide (22-29) mmol/L Anion Gap (12-20) BUN (9-16) mg/dL Creatinine (0.5-1.4) mg/dL Estim Creat Clear Calc Estimated GFR Random Glucose (60-115) mg/dL Calcium (8.4-10.2) mg/dL Total Bilirubin (0.0-1.0) mg/dL Direct Bilirubin (0.0-0.5) mg/dL AST (5-37) U/L ALT (0-40) U/L Alkaline Phosphatase (39-117) U/L C-Reactive Protein (< or = 0.50) mg/dL Total Protein (6.5-8.0) g/dL Albumin (3.5-5.0) g/dL Lipase (8-78) U/L Stool Occult Blood POSITIVE (NEGATIVE) COVID-19 (KRISTOPHER) Negative (Negative) COVID-19 Clin Com See Note Blood Type O Positive Antibody Screen NEGATIVE Discharge Plan Discharge Clinical Impression: Left sided abdominal pain Acute renal failure Qualifiers: Acute renal failure type: unspecified Qualified Code(s): N17.9 - Acute kidney failure, unspecified GI (gastrointestinal bleed) Qualifiers: GI bleed type/associated pathology: unspecified gastrointestinal hemorrhage type Qualified Code(s): K92.2 - Gastrointestinal hemorrhage, unspecified Patient Disposition: Admitted As Inpatient [facility] Past Medical History Medical History Acute promyelocytic leukemia Anxiety Asthma Chronic cholecystitis Chronic idiopathic constipation Colitis Crohn disease Depression Diabetes 1.5, managed as type 1 Diarrhea Elevated serum glutamic pyruvic transaminase (SGPT) level H/O flexible sigmoidoscopy Hypertension Kidney disease Left sided abdominal pain Renal stones Thalamic pain syndrome (hyperesthetic) Surgical History H/O lithotripsy H/O rectal sphincterotomy History of cholecystectomy History of colonoscopy History of hemorrhoidectomy Social History Social History Household Members: Family Housing: Apartment Do you presently have visiting nurse or other home services: No Alcohol intake: never Patient Tobacco Use Status: Never used Tobacco e-Cigarette/Vaping Use: Never Used Second Hand Smoke Exposure: No Advance Directives: Yes Advance Directives on File: Yes Advance Directives Date on File: 04/04/21 service: No Current occupational status: disabled
[2021-06-02 01:31] LABS: Hemoglobin 8.6 g/dl (14.0-18.0); Imm Gran Abs Auto 0.16 X10*3/uL (0.00-0.03); Imm Gran Pct Auto 2.1 % (0.0-0.4); Lymphocytes Absolute Auto 1.4 X10*3/uL (1.2-4.9); Lymphocytes Percent Auto 18.9 % (20-40); Mean Corpuscular HGB Conc 28.7 g/dl (31.0-36.0); Mean Corpuscular Hemoglobin 25.1 pg (27.0-33.0); Mean Corpuscular Volume 87.5 fL (80.0-98.0); Mean Platelet Volume 9.1 fL (9.4-12.4); Monocytes Absolute Auto 0.6 X10*3/uL (0.1-1.2); Monocytes Percent Auto 8.1 % (2-11); Neutrophils Absolute Auto 5.4 x10*3/uL (2.0-8.3); Neutrophils Percent Auto 70.9 % (45-73); Platelet Count 668 X10*3/uL (160-400); Red Blood Count 3.43 X10*6/uL (4.60-5.80); Red Cell Distribution Width 17.9 % (11.0-16.0); White Blood Count 7.6 X10*3/uL (4.8-10.8)
[2021-06-02 01:45] VITALS: BP 139/80; PULSE 155; RESP 20; O2SAT 99
[2021-06-02] MEDS: 0.9 % Sodium Chloride 1,000 ML 999 ML IVCONT (01:49)
[2021-06-02 01:56] LABS: Prothrombin Time 11.7 SEC (9.9-13.0)
[2021-06-02 01:59] LABS: Partial Thromboplastin Time 24.2 SEC (24.1-38.0)
[2021-06-02] MEDS: iohexoL 350 MG/ML 100 ML INFUS..BTL 85 ML IV (02:06)
--- NOTE | 2021-06-02 02:07 | PC.NURSE ---
PT returned from CT.
[2021-06-02 02:34] LABS: COVID-19 Test Negative (Negative); IDNOW Serial# 9DD0AD1C
[2021-06-02 03:02] LABS: OBS1 POSITIVE (NEGATIVE)
[2021-06-02 03:03] LABS: OBS Int Ctl Valid YES
--- NOTE | 2021-06-02 03:10 | PM.IMHP ---
History of Present Illness Date of Service: 06/02/21 Chief Complaint: Blood in the stool 60-year-old male with a past medical history of hypertension, hyperlipidemia, diabetes, Crohn's disease, elevated SGPT, acute promyelocytic leukemia, asthma, anxiety, renal calculi, thalamic pain syndrome, depression presented to the hospital with a chief complaint of left upper quadrant abdominal pain/blood in the stool. Patient reported that he noted to have left upper quadrant abdominal pain today; denies any associated nausea vomiting. Reported that he had 3 episodes of small amount of blood in the stool today. Denies any lightheadedness or dizziness. Denies any numbness tingling or focal weakness. Denies any fever chills cough, urinary symptoms. Review of all other systems is negative except mentioned above ER course: Per ER team patient noted to have GOLDEN; CT abdomen showed no acute intra-abdominal pathology; stool guaiac was positive. Hemoglobin stable at 8.5. Admitted to the hospital for further management. [facility] Medical History Acute promyelocytic leukemia Anxiety Asthma Chronic cholecystitis Chronic idiopathic constipation Colitis Crohn disease Depression Diabetes 1.5, managed as type 1 Diarrhea Elevated serum glutamic pyruvic transaminase (SGPT) level H/O flexible sigmoidoscopy Hypertension Kidney disease Left sided abdominal pain Renal stones Thalamic pain syndrome (hyperesthetic) Pertinent family history: Reviewed, patient unable to provide information Surgical History H/O lithotripsy H/O rectal sphincterotomy History of cholecystectomy History of colonoscopy History of hemorrhoidectomy Social History Household Members: Family Housing: Apartment Do you presently have visiting nurse or other home services: No Alcohol intake: never Patient Tobacco Use Status: Never used Tobacco e-Cigarette/Vaping Use: Never Used Second Hand Smoke Exposure: No Advance Directives: Yes Advance Directives on File: Yes Advance Directives Date on File: 04/04/21 service: No Current occupational status: disabled Meds Allergies Allergy/AdvReac Type Severity Reaction Status Date / Time No Known Allergies Allergy Verified 04/02/21 16:05 [No Known Allergies*] none Allergy Unknown Unknown Uncoded 04/02/21 16:05 Active Medications: Current Medications Acetaminophen (Acetaminophen 325 Mg Tablet) 650 mg PO Q6H PRN PRN Reason: Pain, Mild (Pain Scale 1-3) Sodium Chloride (Ns) 1,000 mls @ 50 mls/hr IVCONT .Q20H [facility] Melatonin (Melatonin 3 Mg Tablet) 6 mg PO BEDTIME PRN PRN Reason: Insomnia Senna (Sennosides 8.6 Mg Tablet) 17.2 mg PO BEDTIME PRN PRN Reason: Constipation Sodium Chloride (0.9 % Sodium Chloride Flush 3 Ml Syringe) 3 ml IVFLUSH QSHIFT [facility] Home Medications Medication Instructions Recorded Confirmed Last Taken Type glyburide 5 mg tablet 5 mg PO BID 03/22/20 05/15/21 05/14/21 History lisinopril 5 mg tablet 5 mg PO DAILY 03/22/20 05/15/21 05/14/21 History mirtazapine 30 mg tablet 30 mg PO BEDTIME 03/22/20 05/15/21 05/14/21 History folic acid 1 mg tablet 1 tab PO DAILY 02/14/21 05/15/21 05/14/21 History melatonin 5 mg tablet 1 tab PO BEDTIME PRN 02/14/21 05/15/21 05/14/21 History paroxetine HCl 40 mg tablet 40 mg PO DAILY 02/14/21 05/15/21 05/14/21 History hydroxyzine pamoate 50 mg capsule 2 cap PO BEDTIME PRN 04/02/21 05/15/21 05/14/21 History ustekinumab 90 mg/mL subcutaneous 90 mg SUBCUT Q8W 04/02/21 05/15/21 05/13/21 History syringe (Stelara) methotrexate sodium 2.5 mg tablet 2.5 mg PO TU 05/15/21 05/15/21 05/08/21 History Physical Exam Vital Signs and Narrative: Vital Signs: Last Vital Signs Temp 97.9 F 06/01/21 21:47 Pulse 155 H 06/02/21 01:45 Resp 20 06/02/21 01:45 BP 139/80 06/02/21 01:45 Pulse Ox 99 06/02/21 01:45 BMI result Body Mass Index 31.7 Gen: Appears be in no acute distress HEENT: NCAT, Moist mucosa. Pulmonary: Vesicular breath sounds, fair air entry CVS: Normal S1-S2 Abdomen: BS+, Soft, tender in the left upper quadrant below the ribcage, Extremities: Warm well perfused Neuro: Alert and awake. Results Labs CBC and Chem 7: 06/01/21 23:43 06/01/21 23:43 Labs: Laboratory Results - last 24 hr 06/01/21 06/01/21 06/02/21 23:43 23:43 01:42 MCV 87.5 MCH 25.1 L MCHC 28.7 L RDW 17.9 H Plt Count 668 H D MPV 9.1 L Immature Gran % (Auto) 2.1 H Neut % (Auto) 70.9 Lymph % (Auto) 18.9 L Isabela % (Auto) 8.1 Eos % (Auto) 0.0 Baso % (Auto) 0.0 Lymph # (Auto) 1.4 Isabela # (Auto) 0.6 Eos # (Auto) 0.0 Baso # (Auto) 0.0 Abs Immat Gran (auto) 0.16 H Absolute Neuts (auto) 5.4 Absolute Nucleated RBC 0.000 Nucleated RBC % (auto) 0.0 PT 11.7 INR 1.0 APTT 24.2 Anion Gap 13 Estim Creat Clear Calc 71.3 Estimated GFR 49 Random Glucose 289 H D Calcium 9.1 D Total Bilirubin 0.3 Direct Bilirubin < 0.2 AST 13 ALT 26 Alkaline Phosphatase 81 Total Protein 6.0 L Albumin 3.3 L Lipase 55 Stool Occult Blood COVID-19 (KRISTOPHER) COVID-19 Clin Com Blood Type Antibody Screen 06/02/21 06/02/21 06/02/21 01:42 02:15 02:56 MCV MCH MCHC RDW Plt Count MPV Immature Gran % (Auto) Neut % (Auto) Lymph % (Auto) Isabela % (Auto) Eos % (Auto) Baso % (Auto) Lymph # (Auto) Isabela # (Auto) Eos # (Auto) Baso # (Auto) Abs Immat Gran (auto) Absolute Neuts (auto) Absolute Nucleated RBC Nucleated RBC % (auto) PT INR APTT Anion Gap Estim Creat Clear Calc Estimated GFR Random Glucose Calcium Total Bilirubin Direct Bilirubin AST ALT Alkaline Phosphatase Total Protein Albumin Lipase Stool Occult Blood POSITIVE COVID-19 (KRISTOPHER) Negative COVID-19 Clin Com See Note Blood Type O Positive Antibody Screen NEGATIVE Imaging Radiologist's Impressions: Impressions Abdomen/Pelvis CT 06/02/21 02:05 IMPRESSION: No acute finding in the abdomen or pelvis. No bowel wall thickening or inflammation. Renal calculi noted. No hydronephrosis. T10 and T12 vertebral body compression deformities, as seen on the recent prior radiograph. These are new from 04/02/2021. Fleischner guidelines were followed. Assessment and Plan (1) Blood in stool: Status: Acute 60-year-old male with a past medical history of hypertension, hyperlipidemia, diabetes, Crohn's disease, elevated SGPT, acute promyelocytic leukemia, asthma, anxiety, renal calculi, thalamic pain syndrome, depression presented to the hospital with a chief complaint of left upper quadrant abdominal pain/blood in the stool. Abdominal pain: Question musculoskeletal. CT abdomen showed no acute intra-abdominal pathology. Supportive care. Patient has prior history of Crohn's disease on immunosuppressants. Less concern for Crohn's flare currently. Guaiac positive stool: Will give the patient on IV ppi. GI consult. Serial H& H. Currently hemoglobin stable. Vitals stable. GOLDEN: Likely present. Gentle IV fluids. Patient also received contrast in the ER. Will continue to monitor. Avoid nephrotoxins. Anemia: Patient has prior history of anemia requiring blood transfusions. Currently stable. Will continue to monitor. Thrombocytosis: Patient had prior elevations in platelets of 560; on presentation today platelets are 6 and 68. Will continue monitor For all other chronic conditions, home medications will be continued once med rec is done. DVT prophylaxis: SCD boots Code status: Full code Quality Stroke Does the patient have a stroke diagnosis?: No VTE Prior VTE?: No VTE Risk Level:: Medical - low VTE Device Contraindication: N/A - Device Ordered VTE Drug Contraindication: Treatment Not Indicated
[2021-06-02 03:11] LABS: C Reactive Protein 0.46 mg/dL (< or = 0.50)
--- NOTE | 2021-06-02 04:15 | PC.NURSE ---
Med rec completed with PT at bed side.
[2021-06-02] MEDS: 0.9 % Sodium Chloride 1,000 ML 50 ML IVCONT (04:17)
[2021-06-02 04:18] VITALS: BP 138/68; PULSE 74; RESP 18; O2SAT 97
[2021-06-02] MEDS: Pantoprazole Sodium 40 MG/10 ML VIAL IVPUSH (06:29)
[2021-06-02 08:18] VITALS: BP 165/85; PULSE 83; RESP 16; TEMP 36.9; O2SAT 99
[2021-06-02 09:01] LABS: MANUAL DIFF FLAG NO
[2021-06-02 09:06] LABS: Basophils Percent Auto 0.1 % (0-2); Eosinophils Percent Auto 0.3 % (0-4); Hematocrit 31.1 % (42.0-52.0); Hemoglobin 8.9 g/dl (14.0-18.0); Imm Gran Abs Auto 0.13 X10*3/uL (0.00-0.03); Imm Gran Pct Auto 1.4 % (0.0-0.4); Lymphocytes Percent Auto 22.4 % (20-40); Mean Corpuscular HGB Conc 28.6 g/dl (31.0-36.0); Mean Corpuscular Hemoglobin 24.9 pg (27.0-33.0); Mean Corpuscular Volume 86.9 fL (80.0-98.0); Mean Platelet Volume 8.8 fL (9.4-12.4); Monocytes Absolute Auto 0.9 X10*3/uL (0.1-1.2); Monocytes Percent Auto 10.3 % (2-11); Neutrophils Percent Auto 65.5 % (45-73); Platelet Count 699 X10*3/uL (160-400); Red Blood Count 3.58 X10*6/uL (4.60-5.80); Red Cell Distribution Width 17.9 % (11.0-16.0); White Blood Count 9.1 X10*3/uL (4.8-10.8)
[2021-06-02 09:16] LABS: Anion Gap 12 (12-20); Blood Urea Nitrogen 24 mg/dL (9-16); Calcium 9.2 mg/dL (8.4-10.2); Carbon Dioxide 25 mmol/L (22-29); Chloride 113 mmol/L (96-108); Creatinine Clr Calc Pharmacy 83.2; Estimated Glomerular Filt Rate 58; Glucose Random 102 mg/dL (60-115); Potassium 3.9 mmol/L (3.3-5.1); Sodium 146 mmol/L (135-145)
--- NOTE | 2021-06-02 10:20 | P.CNGI_ITS ---
History of Present Illness Data of Consult Service Date: 06/02/21 Requesting physician: Noe Sagastume Primary Care Provider: Luke Kamara MD HPI Reason for consult: anemia, rectal bleeding 60 YM with diabetes, Crohn's disease, hypertension, CKD, renal stone, thalamic pain syndrome, and tubular adenoma Colon came to [facility] ED this am with abdominal pain and rectal bleeding: HPI narrative: Patient is 60 years old with history of diabetes, Crohn's disease on Stelara,? hypertension, CKD, renal stone, thalamic pain syndrome, tubular adenoma colon currently on Nucynta ER for IBD comes here for 2 days of left upper abdominal pain and bright red rectal bleeding multiple times today.? Patient was admitted here 05/15 for cellulitis of left arm and noticed to have low hemoglobin of 7.5 was given 2 units of blood.? Patient denies any fever no nausea no vomiting Pt was diagnosed with Crohn's disease involving the colon in 2002 and has been followed by Dr Chu since 2010 for Crohn's disease and recently by Dr Kaur. He has been treated in the past with Lialda, Budesonide, Rowasa enemas, steroids, Entyvio, Stelara Pt was referred to the IBD clinic at [facility] and is being followed there as well. He had a colonoscopy at [facility] which showed inflammation and surgery was advised. Per patient, GI at [facility] advised a trail of Stelara to which he has responded. He is taking Stelara every 8 weeks and is on Prednisone 40 mg daily (He was off Prednisone x 2 months and Prednisone was resumed) Patient reports 3-4 episodes of rectal bleeding yesterday. Blood was bright red and appeared separate from the stools. Patient notes bleeding started after using the tissue paper and felt something burst. He reports having 3-4 bowel movements a day without diarrhea. Patient denies symptoms of heartburn, dysphagia, nausea, vomiting, change in appetite or weight. Denies recent change in bowel habits though notes he has been a little constipated. Patient denies smoking or EtOH abuse. 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 Lives with his son. Pt is scheduled to see Dr Kaur in 08/2021 and Follow-up appointment at [facility] is in Oct, 2021 [facility] : chronic anemia, normal LFTs and Lipase. [employer] genetic marker testing consistent with Crohn's disease done October 2009. Prom[employer] monitor testing was done 01/04/20 was 79 compared to testing done April 2019 which was 68. This is consistent with very active disease. 11/2019 stool calprotectin was 1970 10/2019 C Diff antigen and Gene PCR were positive 2019 Vitamin D level of 14.8 IMAGING STUDIES: 06/02/[address] SCAN SHOWED: No acute finding in the abdomen or pelvis. No bowel wall thickening or inflammation. Renal calculi noted. No hydronephrosis. T10 and T12 vertebral body compression deformities, as seen on the recent prior radiograph. These are new from 04/02/2021.? ENDOSCOPIC STUDIES: Jun, 2020 EGD AND COLONOSCOPY WERE PERFORMED BY DR. CHU: EGD showed gastritis (Bx negative for H Pylori) and duodenitis. Colonoscopy: diffuse edematous, erythematous, friable, and bleeding mucosa with mucosal sloughing in the sigmoid colon.? TI appeared normal without active erosions.? There was a polypoid area, bx showed inflammatory polyp. This was removed and submitted as a separate specimen at 65 cm (he has had a tubular adenoma in the past). ?BIOPSIES SHOWED: D.? Colon, right, biopsy:? Chronic, moderately active, colitis. F.? Colon, left, biopsy:? Chronic, severely active, colitis. PLAN:? We will initiate steroid treatment.? Entyvio will be discontinued.? The patient will be referred to a tertiary center for assistance with management.? The patient has had diffuse pancolitis in the past (Never to this degrees.) Initial? diagnosis? IBD? was December,. He did have pancolitic changes @ that time. , his colonoscopy done by myself was totally normal.? Rectosigmoid, right colon, and left colon biopsies were totally normal.? Within 6 months period of time, he had symptomatic changes and he had diffuse disease biopsied as moderate active chronic colitis.? There was a hiatus of treatment due to his Acute Promyelocytic leukemia. (DX made acute setting which included intracerebral bleed-08/13/16. Remission of leukemia--bone marrow--07/10/17--Kiran Zuleta MD--Heme/Onc.) Humira had been stopped @ that time. Biopsies done in August of 2017 showed? areas of colonic mucosa that were normal and other areas bx: moderate chronic active colitis at that time, and in November of 2017 because of persistent symptomatology, a repeat exam showed moderate chronic active colitis with no dysplasia. Entyvio therapy was initiated.? At the current time, the patient will be transitioned to steroid therapy--limited due to his Diabetes. Further evaluation will be based on the biopsies and response to steroid therapy will be assessed over the next 7 to 14 days with consideration to referral to one of the major IBD Clinics in [place]. PAST GI HISTORY BY REVIEW OF MEDICAL RECORDS: 02/2021 Pt was last seen by Dr Kaur: He had been seeing Vlad and also going to [place] for f/u for crohns He had been on humira, and entyvio he had been changed to Xeljanz medication 10 mg BID and it sounds like he is now taking stelara he has seen surgeon on [place] as well, unclear what the plan is currently he feels well he has no diarrhea he has no abdominal pain, unless he goes to the bathroom the nucynta seems to help his pain a lot he has no fevers appetite is good weight had been going down he is still taking prednisone 40 mg right now A/P: 1/ Crohns disease, failed multiple agents, now on stelara PLAN: 1/ Not really much for me to do as he is getting his care at [facility] right now, but can refill his nucynta which was prescribed originally by Dr Chu until we assess his repsonse to stelara, need to get the notes from [facility] surgery and IBD clinic Review of Systems Constitutional: Constitutional: Denies fever(s), Denies headache(s) and Denies weight loss Eyes: Eyes: Denies eye discharge and Denies irritation ENT: Reports Normal hearing present, Denies dysphagia, Denies dizziness and Denies headache(s) Cardiovascular: Cardiovascular: Denies chest pain, Denies leg edema and Denies dyspnea on exertion Respiratory: Respiratory: Denies cough, Denies dyspnea on exertion and Denies wheezing Gastrointestinal: Gastrointestinal: Denies abdominal pain, Reports hematoche omid, Denies change in bowel habits, Denies dysphagia and Denies heartburn Genitourinary: Genitourinary: Denies dysuria Musculoskeletal: Musculoskeletal: Reports back pain and Denies arthralgias Integumentary/Breasts: Skin/Breast: Denies pruritus, Denies rash and Denies jaundice Neurologic: Reports Normal hearing present, Denies Abnormal speech present, Denies dizziness, Denies headache(s) and Denies seizure-like activity Psychiatric: Psychiatric: Denies anxiety, Denies depression and Denies panic attacks Endocrine: Endocrine: Denies cold intolerance, Denies flushing and Denies heat intolerance Hematologic/Lymphatic: Hematologic/Lymphatic: Denies easy bleeding and Denies easy bruising Allergic/Immunologic: Allergic/Immunologic: Denies wheezing PMFSH Past Medical History Medical History Acute promyelocytic leukemia (~08/2016) Anxiety Asthma Mayda tropicalis infection Chronic idiopathic constipation Colitis (~2002) Crohn disease (~2002) Depression Diabetes 1.5, managed as type 1 Diarrhea Elevated serum glutamic pyruvic transaminase (SGPT) level History of subarachnoid hemorrhage (~08/2016) Hypertension Kidney disease Left sided abdominal pain Morbid obesity Renal stones 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) Surgical History Surgical History History of bone marrow biopsy (~2016) History of cholecystectomy (~2011) History of colonoscopy (~2020) History of esophagogastroduodenoscopy (EGD) (~2020) History of hemorrhoidectomy (~2003) History of lithotripsy (~2017) History of rectal sphincterotomy (~2003) History of right knee surgery (~2016) History of surgery on right wrist (~2006) Social History Social History Household Members: Family Housing: Apartment Do you presently have visiting nurse or other home services: No Alcohol intake: never Patient Tobacco Use Status: Never used Tobacco e-Cigarette/Vaping Use: Never Used Second Hand Smoke Exposure: No Advance Directives Date on File: 04/04/21 service: No Current occupational status: disabled Meds Allergies Allergy/AdvReac Type Severity Reaction Status Date / Time lorazepam [From Ativan] AdvReac Severe AGITATION Verified 08/09/21 09:46 ? EDEMA none Allergy Unknown Unknown Uncoded 04/02/21 16:05 Active Medications: Current Medications Acetaminophen (Acetaminophen 325 Mg Tablet) 650 mg PO Q6H PRN PRN Reason: Pain, Mild (Pain Scale 1-3) Sodium Chloride (Ns) 1,000 mls @ 75 mls/hr IVCONT .[id number] [facility] Last Admin: 06/02/21 04:17 Dose: 50 mls/hr Documented by: Melatonin (Melatonin 3 Mg Tablet) 6 mg PO BEDTIME PRN PRN Reason: Insomnia Pantoprazole Sodium (Pantoprazole Sodium 40 Mg/10 Ml Vial) 40 mg IVPUSH DAILY@0630 [facility] Last Admin: 06/02/21 06:29 Dose: 40 mg Documented by: Senna (Sennosides 8.6 Mg Tablet) 17.2 mg PO BEDTIME PRN PRN Reason: Constipation Sodium Chloride (0.9 % Sodium Chloride Flush 3 Ml Syringe) 3 ml IVFLUSH QSHIFT [facility] Last Admin: 06/02/21 08:13 Dose: Not Given Documented by: Home Medications Medication Instructions Recorded Confirmed Last Taken Type glyburide 5 mg tablet 5 mg PO BID 03/22/20 06/15/21 05/14/21 History lisinopril 5 mg tablet 5 mg PO DAILY 03/22/20 06/15/21 05/14/21 History mirtazapine 30 mg tablet 30 mg PO BEDTIME 03/22/20 06/15/21 05/14/21 History folic acid 1 mg tablet 1 mg PO DAILY 02/14/21 06/15/21 05/14/21 History melatonin 5 mg tablet 1 tab PO BEDTIME PRN 02/14/21 06/15/21 05/14/21 History paroxetine HCl 40 mg tablet 40 mg PO DAILY 02/14/21 06/15/21 06/01/21 09:00 History hydroxyzine pamoate 50 mg capsule 100 mg PO BEDTIME PRN 04/02/21 06/15/21 05/14/21 History ustekinumab 90 mg/mL subcutaneous 90 mg SUBCUT Q8W 04/02/21 06/15/21 05/13/21 History syringe (Stelara) methotrexate sodium 2.5 mg tablet 25 mg PO Q7D 05/15/21 06/15/21 05/08/21 History prednisone 10 mg tablet 4 tab PO DAILY 06/02/21 06/15/21 Unknown History doxycycline monohydrate 100 mg 1 tab PO BID 06/15/21 06/15/21 Unknown History tablet Physical Exam Vital Signs: Vital Signs: Last Vital Signs Temp 98.4 F 06/02/21 08:18 Pulse 83 06/02/21 08:18 Resp 16 06/02/21 08:18 BP 165/85 H 06/02/21 08:18 Pulse Ox 99 06/02/21 08:18 BMI result Body Mass Index 31.7 Const: General: healthy appearing and no acute distress Nutritional Appearance: obese Orientation/consciousness: patient oriented x3 Limitations: no limitations HENMT: Head: Yes normal to inspection Ears: hearing grossly normal bilaterally Mouth: Normal oral and palatal mucosa present Eyes: Sclerae: sclerae normal Pupils: Equal, round and reactive pupils present Neck: Neck: Yes normal visual inspection Chest: Chest palpation & inspection: normal inspection of the chest Resp: Effort & Inspection: normal respiratory effort Auscultation: clear to auscultation bilaterally Cardio: Palpation: normal PMI Rate: regular rate Rhythm: regular rhythm Heart sounds: S1 normal heart sound present, S2 normal heart sound present and no murmurs GI: Palpation (GI): Soft to palpation, nontender and No hepatosplenomegaly present Auscultation: normal bowel sounds Rectal Exam - Male: Yes deferred Skin: General skin exam: no rashes or lesions noted Neuro: General: patient oriented x3, gait normal and moves all extremities Cranial nerves: Yes Equal, round and reactive pupils present and Yes Normal hearing present Speech: No Abnormal speech present Extrem: General: Yes pedal edema and Yes venous stasis dermatitis Psych: Appearance: grossly normal Mental Status: mental status grossly normal Results Labs CBC & Chem 7: 06/03/21 06:01 06/03/21 11:07 Labs: Short CBC 06/01/21 06/02/21 Range/Units 23:43 08:54 WBC 7.6 9.1 (4.8-10.8) X10*3/uL Hgb 8.6 L 8.9 L (14.0-18.0) g/dl Hct 30.0 L 31.1 L (42.0-52.0) % Plt Count 668 H D 699 H (160-400) X10*3/uL BMP 06/01/21 06/02/21 23:43 08:54 Sodium 143 146 H Potassium 4.6 D 3.9 Chloride 110 H 113 H Carbon Dioxide 25 25 BUN 28 H D 24 H Creatinine 1.47 H 1.26 Calcium 9.1 D 9.2 Liver Function 06/01/21 Range/Units 23:43 Total Bilirubin 0.3 (0.0-1.0) mg/dL Direct Bilirubin < 0.2 (0.0-0.5) mg/dL AST 13 (5-37) U/L ALT 26 (0-40) U/L Alkaline Phosphatase 81 (39-117) U/L Albumin 3.3 L (3.5-5.0) g/dL Assessment and Plan (1) GI (gastrointestinal bleed): Qualifiers: GI bleed type/associated pathology: unspecified gastrointestinal hemorrhage type Qualified Code(s): K92.2 - Gastrointestinal hemorrhage, unspecified Status: Resolved (2) Crohn disease: Qualifiers: Digestive disease complication type: with rectal bleeding Gastrointestinal tract location: large intestine Qualified Code(s): K50.111 - Crohn's disease of large intestine with rectal bleeding Status: Acute (3) Left sided abdominal pain: Status: Resolved Plan 60 years old with history of diabetes, Crohn's disease on Stelara,? hypertension, CKD, renal stone, thalamic pain syndrome, tubular adenoma colon currently on Stelara and prednisone for IBD admitted with 2 days of LUQ abdominal pain and bright red rectal bleeding multiple times today.? Patient was admitted to [facility] 05/15 for cellulitis of left arm and noticed to have low hemoglobin of 7.5 was given 2 units of blood.? Rectal bleeding likely hemorrhoidal since bleeding started after pt wiped with toilet paper and felt something burst. He had 3 BM since arrival to the ED and denies further bleeding RECOMMENDATIONS: 1. Hydrocortisone rectal cream twice daily 2. Monitor H & H. 3. If H&H remains stable without further bleeding, pt can be discharged home and FU with Dr Kaur as an outpatient. Pt states he has hydrocortisone cream at home (prescribed by his PCP) and was advised to use at home after discharge. Procedures Date of Service Date of Service: 06/02/21
--- NOTE | 2021-06-02 14:57 | MHC.CM.PN ---
PATIENT IS A READMIT HE LIVES WITH HIS SON HCP IS ON FILE AND VERIFIED. NO VNA SERVICES IN THE HOME PATIENT DOES RELY ON A CANE FOR AMBULATION ASSIST. HE HOPES TO RETURN HOME WITH NO SERVICES IMM 06/02 IN CHART
--- NOTE | 2021-06-02 17:21 | PC.NURSE ---
report given to receiving nurse Hilda RN. pt alert and oriented. pt will be transported to room 385 by licensed nuclear control room operator.
[2021-06-02 18:56] VITALS: BP 164/80; PULSE 75; RESP 18; TEMP 36.5; O2SAT 98
[2021-06-02] MEDS: Mirtazapine 30 MG TABLET PO (21:32)
[2021-06-02] MEDS: Sucralfate 1 GM TABLET PO (21:32)
[2021-06-03] VITALS: BP 145/69; PULSE 78; RESP 17; TEMP 36.4; O2SAT 93
[2021-06-03] MEDS: 0.9 % Sodium Chloride 1,000 ML 50 ML IVCONT (00:52)
[2021-06-03 03:45] VITALS: BP 144/64; PULSE 88; RESP 18; TEMP 36.2; O2SAT 92
[2021-06-03] MEDS: Pantoprazole Sodium 40 MG/10 ML VIAL IVPUSH (05:49)
[2021-06-03 06:43] LABS: Hematocrit 33.4 % (42.0-52.0); Hemoglobin 9.5 g/dl (14.0-18.0); Mean Corpuscular HGB Conc 28.4 g/dl (31.0-36.0); Mean Corpuscular Hemoglobin 24.7 pg (27.0-33.0); Mean Corpuscular Volume 86.8 fL (80.0-98.0); Mean Platelet Volume 9.6 fL (9.4-12.4); Platelet Count 642 X10*3/uL (160-400); Red Blood Count 3.85 X10*6/uL (4.60-5.80); Red Cell Distribution Width 18.3 % (11.0-16.0); White Blood Count 7.9 X10*3/uL (4.8-10.8)
[2021-06-03 07:04] LABS: C Reactive Protein 0.71 mg/dL (< or = 0.50)
[2021-06-03 07:17] LABS: Anion Gap 13 (12-20); Blood Urea Nitrogen 18 mg/dL (9-16); Calcium 9.5 mg/dL (8.4-10.2); Carbon Dioxide 28 mmol/L (22-29); Chloride 112 mmol/L (96-108); Estimated Glomerular Filt Rate 55; Glucose Random 84 mg/dL (60-115); Potassium 4.7 mmol/L (3.3-5.1); Sodium 148 mmol/L (135-145)
[2021-06-03 08:00] VITALS: BP 159/66; PULSE 69; RESP 18; TEMP 36.1; O2SAT 95
--- NOTE | 2021-06-03 08:00 | PHA.MEDREC ---
Pharmacy Consult ? Medication Reconciliation Rn completed med rec, looked over by pharmacy. Will double check the MTX dose and change in med rec.
[2021-06-03] MEDS: PARoxetine HCL 40 MG TABLET PO (08:39)
[2021-06-03] MEDS: Sucralfate 1 GM TABLET PO (08:39)
[2021-06-03] MEDS: Folic Acid 1 MG TABLET PO (08:39)
[2021-06-03] MEDS: Dextrose 5 % 1,000 ML 125 ML IVCONT (08:40)
--- NOTE | 2021-06-03 09:57 | PM.DS ---
DS: Providers Provider Date of Service: 06/03/21 Date of admission: 06/02/21 03:06 Primary care physician: Luke Kamara MD Consults: 06/02/21 03:08 Consult to Gastroenterology Routine Consulting Provider: Alexx Chahal Reason for consultation: guaiac positive stool. abd pain. DS: Diagnosis Discharge Diagnosis (1) GI (gastrointestinal bleed): Status: Acute (2) Left sided abdominal pain: Status: Acute (3) Acute renal failure: Status: Acute (4) Blood in stool: Status: Acute DS: Summary Hospital Course Hospital Course: Admission note HPI 60-year-old male with a past medical history of hypertension, hyperlipidemia, diabetes, Crohn's disease, elevated SGPT, acute promyelocytic leukemia, asthma, anxiety, renal calculi, thalamic pain syndrome, depression presented to the hospital with a chief complaint of left upper quadrant abdominal pain/blood in the stool.? Patient reported that he noted to have left upper quadrant abdominal pain today; denies any associated nausea vomiting.? Reported that he had 3 episodes of small amount of blood in the stool today.? Denies any lightheadedness or dizziness.? Denies any numbness tingling or focal weakness.? Denies any fever chills cough, urinary symptoms.? Per ER team patient noted to have GOLDEN; CT abdomen showed no acute intra-abdominal pathology; stool guaiac was positive.? Hemoglobin stable at 8.5.? Admitted to the hospital for further management. Hospital course The patient was admitted and started on IV fluid with good response in his kidney function at it improved back to his normal baseline. Hemoglobin remained stable between 8.5 tonight. Evaluated by Gastroenterology S no recurrence of the bleeding occurred during the hospital stay. GI recommended outpatient up and no need for intervention during this hospital stay. The patient will be discharged on omeprazole and follow-up with gastroenterology clinic as outpatient Dr Kaur. Developed hypernatremia of 148 as a result of IV fluids. Responded well to treatment with D5 a sodium improved back to normal. Time Spent with Patient Time attestation: Total time spent providing and/or coordinating discharge services: Discharge coordination time: Greater than 30 minutes Quality: Stroke Does the patient have a stroke diagnosis?: No Physical Exam Vital Signs: Vital Signs: Last Vital Signs Temp 97.0 F 06/03/21 08:00 Pulse 69 06/03/21 08:00 Resp 18 06/03/21 08:00 BP 159/66 H 06/03/21 08:00 Pulse Ox 95 06/03/21 08:00 BMI result Body Mass Index 31.7 Const: Other: Constitutional : Alert, oriented, not in distress Neck : Normal inspection, Supple Cardiovascular : RRR, S1 S2, no lower extremity edema Respiratory : Good bilateral air entry, no crackles, wheezes or rhonchi Gastrointestinal: soft, lax, Normal bowel sounds, Non tender Skin : Warm, Dry Neurological : Alert & oriented x3, No focal deficit DS: Data Data Completed and Pending Completed studies during hospitalization [Text1]: Procedures Transfusion of Nonautologous Red Blood Cells into Peripheral Vein, Percutaneous Approach (05/15/21) Labs on day of discharge: Laboratory Results - last 24 hr 06/03/21 06/03/21 06/03/21 06:01 06:01 06:01 WBC 7.9 RBC 3.85 L Hgb 9.5 L Hct 33.4 L MCV 86.8 MCH 24.7 L MCHC 28.4 L RDW 18.3 H Plt Count 642 H MPV 9.6 Absolute Nucleated RBC 0.000 Nucleated RBC % (auto) 0.0 Sodium 148 H Potassium 4.7 D Chloride 112 H Carbon Dioxide 28 Anion Gap 13 BUN 18 H Creatinine 1.31 Estim Creat Clear Calc 80.0 Estimated GFR 55 Random Glucose 84 Calcium 9.5 C-Reactive Protein 0.71 H Discharge Plan Discharge Patient Disposition: Home, Self-Care Discharge Diagnosis: Blood in stool Referrals: Luke Kamara MD [Primary Care Provider] - 1 Week Discharge Medications: New omeprazole 20 mg capsule,delayed release(DR/EC) 20 mg PO DAILY Qty: 30 RF: 0 Continued Nucynta ER 50 mg tablet extended release 12 hr 50 mg PO DAILY Qty: 30 RF: 0 sucralfate 1 gram tablet 1 g PO BID Qty: 180 RF: 1 glyburide 5 mg tablet 5 mg PO BID RF: 0 mirtazapine 30 mg tablet 30 mg PO BEDTIME RF: 0 lisinopril 5 mg tablet 5 mg PO DAILY RF: 0 folic acid 1 mg tablet 1 mg PO DAILY RF: 0 paroxetine HCl 40 mg tablet 40 mg PO DAILY RF: 0 melatonin 5 mg tablet 1 tab PO BEDTIME PRN (Reason: Insomnia) RF: 0 hydroxyzine pamoate 50 mg capsule 100 mg PO BEDTIME PRN (Reason: Anxiety) RF: 0 Stelara 90 mg/mL Syringe 90 mg SUBCUT Q8W RF: 0 methotrexate sodium 2.5 mg tablet 2.5 mg PO TU RF: 0 prednisone 10 mg tablet 4 tab PO DAILY RF: 0 Discharge Orders: Discharge Order (Routine); Ordered 06/03/21 Ordered By: Josefina Paniagua Diet: advance to usual diet Activity on Discharge: As tolerated Stand Alone Forms: Patient Portal Discharge page Care Plan Goals: Read below Health Concerns: Read below Plan of Treatment: Read below Assessment: You were evaluated for reported bloody stool. Your blood level has been stable and remained stable during the hospital stay with no recurrence of the bleeding episodes. You were evaluated by food storeroom clerk who recommended outpatient follow-up. To follow-up with Dr. Kaur in the office after calling for an appointment Start omeprazole 1 tablet daily Discharge Date/Time: 06/03/21 15:15
--- NOTE | 2021-06-03 10:47 | MHC.CM.PN ---
Addendum entered by Aminata Hoyt 06/03/21 10:48: IMM 06/02 IN CHART Original Note: PATIENT IS DISCHARGED HOME TODAY - SELF CARE. SON TO PROVIDE TRANSPORT HOME RN AWARE OF PLAN
[2021-06-03 11:42] LABS: Anion Gap 12 (12-20); Blood Urea Nitrogen 17 mg/dL (9-16); Calcium 9.1 mg/dL (8.4-10.2); Carbon Dioxide 27 mmol/L (22-29); Chloride 110 mmol/L (96-108); Creatinine Clr Calc Pharmacy 80.6; Estimated Glomerular Filt Rate 56; Glucose Random 106 mg/dL (60-115); Potassium 4.1 mmol/L (3.3-5.1); Sodium 145 mmol/L (135-145)
[2021-06-03 12:00] VITALS: BP 176/94; PULSE 91; RESP 18; TEMP 36; O2SAT 95
== END 2021-06-03 15:15 | disposition home or self-care (01) | DRG 386 ==
LOC: HO.ED 06-02 03:39 → HO.EDOVER 06-02 03:53 → HO.S3 06-02 16:01
PROVIDERS: Internal Medicine Gastroenterology; Admitting Provider Hospitalist; Emergency Provider Internal Medicine; PCP Internal Medicine; Visit Provider Student in an Organized Health Care Education/Training Program
DX: K50.111 Crohn's disease of large intestine with rectal bleeding (principal); N17.9 Acute kidney failure, unspecified; E78.5 Hyperlipidemia, unspecified; E11.9 Type 2 diabetes mellitus without complications; D75.839 Thrombocytosis, unspecified; Z20.822 Contact with and (suspected) exposure to COVID-19; Z87.442 Personal history of urinary calculi; Z79.52 Long term (current) use of systemic steroids; Z79.899 Other long term (current) drug therapy
CPT/HCPCS: 36415; 74177; 80048; 80053; 82248; 82272; 83690; 85025; 85027; 85610; 85730; 86140; 86850; 86900; 86901; 87635; 99284; Q9967

== ENCOUNTER 2021-06-14 23:41 | Inpatient (IN) | payer MEDICARE, MEDICAID, SELFPAY ==
--- NOTE | ~2021-06-14 | XR_ITS ---
EXAMINATION: XR CHEST CLINICAL INFORMATION: Follow up pneumonia. COMPARISON: Multiple previous chest x-rays with the last chest x-ray of 06/22/2021. Chest CT of 06/15/2021. TECHNIQUE: Frontal view of the chest was obtained. FINDINGS: An endotracheal tube terminates 6.2 cm above the caden. An enteric tube courses below the diaphragm, the tip is external to the [id number]. Right IJ approach central venous catheter tip projects over the expected location of the mid SVC. The cardiomediastinal silhouette is stable with normal cardiac size. Stable mild elevation of the right hemidiaphragm. The lungs are mildly hypoexpanded. Bilateral diffusely scattered patchy airspace opacities are again noted, without significant interval change compared to last chest x-ray. Likely trace bilateral pleural effusions. No visible pneumothorax in the visualized chest. XR/XR chest 1V IMPRESSION: No significant interval change is noted in the diffusely scattered bilateral patchy airspace opacities compared to last chest x-ray. Endotracheal tube terminates 6.2 cm above the caden.
--- NOTE | ~2021-06-14 | XR_ITS ---
EXAMINATION: XR CHEST CLINICAL INFORMATION: Shortness of breath COMPARISON: 04/28/2021 TECHNIQUE: Frontal view of the chest was obtained. FINDINGS: Diffuse bilateral patchy airspace opacities. No pleural effusion or pneumothorax. Normal heart size and pulmonary vascularity. No acute or suspicious osseous abnormalities. XR/XR chest 1V IMPRESSION: Multifocal pneumonitis
--- NOTE | ~2021-06-14 | IR_ITS ---
PROCEDURE: IR THORACIC VERTEBROPLASTY CLINICAL INFORMATION: Multiple thoracic and lumbar fractures secondary to osteoporosis. There are acute T12 and L3 fractures on MRI lumbar spine 08/06/2021. COMPARISON: MRI lumbar spine 08/06/2021. TECHNIQUE: Following explaining fluoroscopy-guided bipedicle approach T12 and L3 compression fracture kyphoplasty procedure, benefits and risk via a voice network engineer, a written consent was obtained. Patient was placed prone on fluoroscopy table and mid back area was cleaned and draped in usual sterile manner. Right T12 pedicle was localized on the skin and 1% Xylocaine was injected subcutaneously. Through a small skin incision a 10-gauge Kyphon needle was inserted from the skin to the level of periosteum and through the periosteum into the T12 posterior vertebra. A second needle was inserted in a similar fashion through the left pedicle under fluoroscopy. Third and fourth needles were inserted in a similar fashion through the right and left L3 pedicles. A simple drill was advanced through all the fourth needles and a track created. High tensile balloons were then inserted through all the needles and inflated to 20 to 250 psi for 6 minutes. The balloons were deflated and removed. Freshly prepared polymethylmethacrylate was injected from right L3, left L3, right T12 and left T12 needles under continuous AP, oblique and fluoroscopy monitoring. After achieving adequate amount of cement and observing no cement leak, all four needles were removed approximately 10 minutes after cement injection. Complete hemostasis achieved at puncture site. Sterile dressing applied postprocedure. Patient tolerated procedure well. Conscious sedation was provided by anesthesia department. FINDINGS: On fluoroscopy images obtained there are acute several compression fractures. There is a T10 fracture which is not visualized on the MRI as it was out of the [id number]. Also visualized is a T12 and L3 vertebral fractures which have edema on MRI. There are superior endplate compression fractures of L2, L4 and L5 vertebra. There is an adequate amount of cement occupying T12 and L3 vertebra without any extravasation. There is no spinal canal compromise. Minimal superior posterior bony component at T12 vertebra is stable. No change from previous CT. FLUOROSCOPY TIME: 14.8 minutes DOSE AREA PRODUCT: [id number] Gycm2 IR/IR kyphoplasty thoracic IMPRESSION: Successful fluoroscopy-guided bipedicle approach T12 and L3 kyphoplasty. There are additional thoracic and lumbar fractures which needs to be rescheduled for treatment with kyphoplasty.
--- NOTE | ~2021-06-14 | XR_ITS ---
EXAMINATION: XR CHEST CLINICAL INFORMATION: Post intubation COMPARISON: Chest x-ray 06/15/2021, 1:[address] chest 06/15/2021 TECHNIQUE: Frontal portable view of the chest was obtained. 2301 hours FINDINGS: Endotracheal tube 5 cm above caden. Persistent extensive bilateral airspace disease. There is no pleural effusion. No pneumothorax. The cardiac and mediastinal contours are unchanged. XR/XR chest 1V IMPRESSION: Endotracheal tube 5 centers above caden. Persistent extensive bilateral airspace disease.
--- NOTE | ~2021-06-14 | XR_ITS ---
EXAMINATION: XR CHEST CLINICAL INFORMATION: Hypoxemia COMPARISON: Previous chest x-ray most recent 06/27/2021 TECHNIQUE: Frontal view of the chest was obtained. FINDINGS: There is an endotracheal tube with tip 5.4 cm above the caden. There is a nasogastric tube that projects over the stomach. The tip is not seen. There is a right jugular line with tip projecting over the SVC. The cardiac silhouette appears enlarged. There is apparent increased soft tissue in the mediastinum. There is pneumomediastinum which appears increased. There is dense diffuse bilateral airspace disease not appreciably changed. There is neck and chest subcutaneous emphysema. It is difficult to exclude a small left pneumothorax. No right pneumothorax is seen. No significant pleural effusion. Bony structures are unremarkable. XR/XR chest 1V IMPRESSION: Satisfactory position of endotracheal tube and right jugular line. Nasogastric tube projects over stomach, tip not seen. Increasing size of the cardiac silhouette and increasing mediastinal soft tissue. Increasing pneumomediastinum. It is difficult to exclude a small left pneumothorax. No right pneumothorax. Neck and chest subcutaneous emphysema. Findings will be communicated by the Lena work flow cementing bulk material operator.
--- NOTE | ~2021-06-14 | XR_ITS ---
EXAMINATION: XR CHEST CLINICAL INFORMATION: Temperature COMPARISON: 07/07/2021 TECHNIQUE: Frontal view of the chest was obtained. FINDINGS: Endotracheal tube tip lies approximately 2.5 cm above the caden. Enteric tube courses into the stomach. Right IJ central line tip lies in the region of the cavoatrial junction. The lungs are hypoinflated. Redemonstrated bilateral multifocal opacities which appear similar to prior. No appreciable pneumothorax or significant pleural effusion. The cardiomediastinal silhouette is stable. No acute osseous findings are seen. XR/XR chest 1V IMPRESSION: Multifocal bilateral opacities appear overall similar to 07/07/2021.
--- NOTE | ~2021-06-14 | XR_ITS ---
EXAMINATION: XR CHEST CLINICAL INFORMATION: Shortness of breath COMPARISON: Chest x-ray 07/11/2021 TECHNIQUE: Frontal view of the chest was obtained. FINDINGS: Interval extubation and removal of enteric tube. There has also been interval removal of right-sided jugular catheter. Low lung volumes with asymmetric elevation of right hemidiaphragm. Patchy bilateral airspace opacities are again noted and appear relatively similar prominence. No gross pleural effusion. No pneumothorax. XR/XR chest 1V IMPRESSION: Hypoinflated lungs with similar bilateral patchy airspace disease.
--- NOTE | ~2021-06-14 | XR_ITS ---
EXAMINATION: XR CHEST CLINICAL INFORMATION: Follow-up pneumomediastinum. Giuseppeid. COMPARISON: 07/03/2021 TECHNIQUE: Frontal view of the chest was obtained. FINDINGS: Endotracheal tube terminates approximately 6 cm above the caden. Enteric tube extends into the stomach. Right internal jugular central venous catheter terminates near the cavoatrial junction. Cardiac leads overlie the chest. Elevated right hemidiaphragm. Patchy bilateral airspace opacities are again noted with mild improvement from prior. No pleural effusion or pneumothorax. The cardiomediastinal silhouette is unchanged in size. No definite pneumomediastinum seen. XR/XR chest 1V IMPRESSION: Bilateral airspace opacities show some improvement from prior. Endotracheal tube terminates 6 cm above the caden. No definite pneumomediastinum seen.
--- NOTE | ~2021-06-14 | XR_ITS ---
EXAMINATION: XR CHEST CLINICAL INFORMATION: Neck edema. COMPARISON: Previous chest x-ray, most recent 06/23/2021. TECHNIQUE: Frontal view of the chest was obtained. FINDINGS: There is an endotracheal tube with tip 8 cm above the caden. There is a nasogastric projects over the stomach. The tip is not seen. There is a right jugular line with tip projecting over the SVC. The heart does not appear enlarged. There are lucencies seen suggestive of pneumomediastinum and possibly pneumopericardium. There is diffuse bilateral multilobar airspace disease, probably not appreciably changed. There is new bilateral neck and left chest wall subcutaneous edema. No pneumothorax is seen. Visualized bony structures are unremarkable. XR/XR chest 1V IMPRESSION: New bilateral lower neck and left chest wall subcutaneous emphysema and probable pneumomediastinum. No pneumothorax. Bilateral diffuse airspace is not appreciably changed. Slightly high position of endotracheal tube 8 cm above the caden. Nasogastric tube projects over stomach, tip not seen. Satisfactory position of right jugular line. Findings will be communicated to Dr. Felix by telephone on 06/27/2021 at 12:50 PM.
--- NOTE | ~2021-06-14 | MR_ITS ---
EXAMINATION: MR LUMBAR SPINE WITHOUT AND WITH CONTRAST CLINICAL INFORMATION: Acute on chronic back pain. COMPARISON: CT dated 07/13/2021. TECHNIQUE: MRI of the lumbar spine was obtained using routine sequences with and without contrast. Intravenous Contrast: Gadavist 10 mL. FINDINGS: VERTEBRAL BODIES AND PARASPINAL STRUCTURES: There is a new 30% loss of vertebral body height with a superior endplate compression fracture deformity at the L3 level. Edema and enhancement are present across the superior endplate of L3 and findings are new compared to the prior CT from 07/13/2021. There is edema in the posterior paraspinal muscles which may be due to strain-type injury. Associated mild enhancement also evident. There is mild heterogeneous enhancement in the superior endplate of L5 with a mild chronic compression deformity. Mild chronic superior endplate compression fracture again visible at the L4 level which is stable. There is a mild superior endplate compression fracture deformity as well at the L2 level with mild heterogeneous signal, unchanged from the prior CT exam. Multiple annular fissures are visible within the discs on T2-weighted imaging. A mild inferior endplate concavity at the L1 level on the CT study is again visible on the MRI examination with heterogeneous inferior endplate signal and enhancement. A chronic severe compression fracture deformity with minimal bony retropulsion remains stable at the T12 level. There is a minimal anterolisthesis at the L4-L5 level and significant disc space narrowing at L5-S1. The imaged bony pelvis is unremarkable. CONUS MEDULLARIS AND CAUDA EQUINA: Normal, terminating at the level of L1-L2. No lower cord signal abnormality is seen. The cauda equina nerve roots are normal. No pathologic intradural enhancement identified. SPINAL LEVELS: L1-L2: No disc pathology, central canal stenosis, or foraminal narrowing. L2-L3: Mild right lateralized disc bulge and mild facet arthropathy without central canal stenosis or significant foraminal encroachment. L3-L4: Mild disc bulge and mild facet arthropathy without central canal stenosis. Patent foramina. L4-L5: Mild anterolisthesis and generalized disc bulge with iayyhsrd-qt-yrytea facet arthropathy and fgyg-lc-ebvizhbe central canal stenosis. Moderate left foraminal narrowing and milder right foraminal encroachment. L5-S1: Diffuse disc bulge and endplate spurring impinging upon the right S1 nerve root with moderate facet arthropathy slightly distorting the left S1 nerve root. No central canal stenosis. Fezndnlo-yp-ohgmgo foraminal narrowing. MR/MR lumbar spine wo/w con IMPRESSION: 1. Btezl-qy-dbqxohti mild superior endplate compression fracture with endplate edema and enhancement at the L3 level demonstrating a 30% loss of vertebral body height centrally. No bony retropulsion. Posterior paraspinal soft tissue edema diffusely which may be due to strain-type injury. 2. Multiple chronic compression fracture deformities with heterogeneous marrow signal changes, relatively stable compared to the prior CT study. Most significant chronic compression fracture at the T12 level with mild bony retropulsion. 3. Moderate spondylosis at the L5-S1 level with endplate spurring and bulging disc impinging upon the right S1 nerve root. Minimal anterolisthesis and severe facet arthropathy with a posterior disc bulge at the L4-L5 level contributing to [id number] central canal stenosis.
--- NOTE | ~2021-06-14 | CT_ITS ---
EXAMINATION: CT ABDOMEN AND PELVIS WITHOUT CONTRAST CLINICAL INFORMATION: Abdominal pain, diarrhea. COMPARISON: None TECHNIQUE: Multidetector volumetric imaging was performed from the superior aspect of the liver through the pubic symphysis. Sagittal and coronal reformatted images were obtained on the technologist's workstation. This CT examination was performed using dose optimization techniques as appropriate, variously including the following: *Automated exposure control. *Adjustment of mA and/or kV according to patient size (this includes techniques or standardized protocols for targeted exams where dose is matched to indication/reason for exam; i.e. extremities or head). *Use of iterative reconstruction technique. DLP: 717 mGy-cm FINDINGS: LUNG BASES: Minimal atelectatic changes are seen in the right lung base. The heart size is normal. LIVER, GALLBLADDER, AND BILIARY TREE: The liver is normal in size, shape, and attenuation. No focal hepatic lesion or biliary ductal dilatation is present. The gallbladder has been surgically removed. PANCREAS: Unremarkable. SPLEEN: Unremarkable. ADRENAL GLANDS: Unremarkable. KIDNEYS AND URETERS: There is a 7 mm nonobstructive radiopaque calculi in the mid pole and an additional two, 2 mm radiopaque calculi mid pole left kidney. There is 8 mm radiopaque calculi upper pole right kidney without caliectasis. There is a 4 mm partially obstructive calculi of left distal ureter axial image 89/3. There is no hydroureteronephrosis. Previously seen right distal ureteral stone is not seen at this time. There is mild bilateral perinephric stranding. Both kidneys are otherwise normal size, shape and position. BLADDER: There is mild bladder wall thickening. GASTROINTESTINAL TRACT: There is scattered stool and gas seen in the colon without any significant distention. The small bowel loops are normal caliber. Appendix is normal caliber. ABDOMINAL WALL: No significant hernia is appreciated. LYMPH NODES: Normal. VASCULAR: Unremarkable. PELVIC VISCERA: There is no free air or free fluid. The prostate gland is normal size. There are compression fractures T12 and T10 vertebra and degenerative disc changes with vacuum disc phenomena L5-S1 disc level, unchanged to previous study 07/13/2021. Mild superior endplate deformities L4, L3 and L2 vertebra, stable. CT/CT abdomen pelvis wo con IMPRESSION: 4 mm partially obstructive calculi distal left ureter. Previously seen right distal ureter calculi has resolved. There is no hydronephrosis on either side. At least 3 radiopaque calculi seen in the left kidney without caliectasis. T12 and T10 old compression fractures. Fleischner guidelines were followed.
--- NOTE | ~2021-06-14 | XR_ITS ---
EXAMINATION: XR CHEST CLINICAL INFORMATION: Increased oxygen requirement. Dyspnea. COMPARISON: June 19, 2021 TECHNIQUE: AP portable view of the chest was obtained. FINDINGS: Endotracheal tube tip is seen approximately 7 cm above the caden. Enteric tube seen traversing to the stomach. Right internal jugular central venous catheter seen with tip in the distal superior vena cava. Since previous study there has been increasing consolidation and loss of volume at the right base. There is again noted to be bilateral regions of interstitial and airspace disease. The cardiopericardial silhouette is enlarged. No pneumothorax or significant pleural effusion is seen. XR/XR chest 1V IMPRESSION: Diffuse bilateral regions of interstitial and airspace disease. Diminished right lung volume with basilar consolidation.
--- NOTE | ~2021-06-14 | XR_ITS ---
EXAMINATION: XR CHEST CLINICAL INFORMATION: Covid pneumonia. Follow-up pneumomediastinum. COMPARISON: 06/29/2021 TECHNIQUE: Frontal view of the chest was obtained. FINDINGS: Endotracheal tube terminates 3 cm above the caden. Enteric tube extends into the stomach. Right internal jugular central venous catheter terminates near the cavoatrial junction. Cardiac leads overlie the chest. Lung volumes are low, limiting evaluation. Diffuse bilateral airspace opacities are noted, fairly similar to prior given differences in technique. The cardiomediastinal silhouette is grossly unchanged. No definite pneumomediastinum seen at this time. XR/XR chest 1V IMPRESSION: Endotracheal tube terminating 3 cm above the caden. Very low lung volumes, limits evaluation. Diffuse bilateral airspace opacities remain. No pneumomediastinum seen at this time, though evaluation of the cardiomediastinal silhouette is limited..
--- NOTE | ~2021-06-14 | CT_ITS ---
EXAMINATION: CT ANGIOGRAM OF THE CHEST WITH AND WITHOUT CONTRAST (CT PULMONARY ANGIOGRAM FOR PE) CLINICAL INFORMATION: Reason for Exam hypoxia, tachycardia, covid 19+ COMPARISON: Chest radiograph 01/19/2018 TECHNIQUE: Prior to contrast administration, noncontrast localization images were obtained. Subsequently, multidetector volumetric imaging was performed from the thoracic inlet to below the diaphragms following the administration of 71 mL Omnipaque 350 intravenous contrast. No contrast reaction reported Sagittal, coronal, and MIP oblique sagittal reformatted images were obtained on the CT workstation, uploaded to PACS, and reviewed. This CT examination was performed using dose optimization techniques as appropriate, variously including the following: *Automated exposure control *Adjustment of mA and/or kV according to patient size (this includes techniques or standardized protocols for targeted exams where dose is matched to indication/reason for exam; i.e. extremities or head) *Use of iterative reconstruction technique Total exam dose-length product 392 mGy-cm FINDINGS: QUALITY OF STUDY/CONTRAST BOLUS: Satisfactory. PULMONARY ARTERIES: No pulmonary embolism. THORACIC AORTA: No aneurysm. LUNG: Multifocal bilateral parenchymal groundglass with patchy areas of consolidation bilaterally. PLEURA: Trace bilateral pleural effusions. MEDIASTINUM: Normal heart size. No pericardial effusion. No hilar or mediastinal lymphadenopathy. No evidence of septal bowing or right heart strain. CHEST WALL/AXILLA: No axillary or internal mammary lymphadenopathy. OSSEOUS STRUCTURES: Age-indeterminate wedge compression deformities of the T12 and T10 vertebral bodies with 75% height loss new from 2018. UPPER ABDOMEN: Elevation of the right hemidiaphragm. Status post cholecystectomy. No reflux of contrast into the hepatic veins to suggest elevated right heart pressures. CT/CT angio chest PE protocol IMPRESSION: No pulmonary embolism. Imaging features of COVID-19 pneumonia present. Other processes such as influenza pneumonia or organizing pneumonia can cause a similar imaging appearance, as can certain drug toxicities and connective tissue diseases. Trace bilateral pleural effusions. Age-indeterminate wedge compression deformities of the T12 and T10 vertebral bodies with 75% height loss new from 2018. VTE: negative
--- NOTE | ~2021-06-14 | CT_ITS ---
EXAMINATION: CT THORACIC SPINE CLINICAL INFORMATION: Post T12 and L3 kyphoplasty. COMPARISON: CT thoracic spine 08/09/2021 performed earlier today. TECHNIQUE: 2 mm thin axial and reformatted 2 mm thin sagittal and coronal images of thoracic spine were obtained from T10-T11 through mid L4 vertebra. This CT examination was performed using dose optimization techniques as appropriate, variously including the following: *Automated exposure control *Adjustment of mA and/or kV according to patient size (this includes techniques or standardized protocols for targeted exams where dose is matched to indication/reason for exam; i.e. extremities or head) *Use of iterative reconstruction technique DLP: 500 mGy-cm FINDINGS: On the sagittal reconstructed images there is an adequate amount of cement occupying the T12 vertebra and L3 vertebra without any extravasation of cement. Small bony component posterior superior endplate T12 vertebra is stable compared to pre vertebroplasty CT. There is severe compression deformity T10 and mild superior endplate deformity L2, L3 and L4 vertebrae. There is mild L4-L5 facet joint hypertrophy and arthropathy. No lytic or sclerotic process seen. Incidental finding of bilateral nonobstructive small radiopaque renal calculi without caliectasis or hydronephrosis. CT/CT thoracic spine post vert IMPRESSION: Adequate amount of cement occupying the T12 and L3 vertebrae without extravasation. Small posterior superior endplate bony component in the posterior epidural space is unchanged to previous CT findings. There are additional fractures of thoracic and lumbar vertebrae as described above. There are bilateral nonobstructive radiopaque renal calculi. Fleischner guidelines were followed.
--- NOTE | ~2021-06-14 | CT_ITS ---
EXAMINATION: CT ABDOMEN AND PELVIS WITH CONTRAST CLINICAL INFORMATION: Abdominal pain COMPARISON: CT abdomen and pelvis 06/02/2021, CTA chest 06/15/2021 TECHNIQUE: Multidetector volumetric images were obtained from the superior aspect of the liver through the pubic symphysis following administration 85 mL of Omnipaque 350 intravenous contrast. Sagittal and coronal reformatted images were obtained on the technologist's workstation. Oral contrast: No This CT examination was performed using dose optimization techniques as appropriate, variously including the following: *Automated exposure control *Adjustment of mA and/or kV according to patient size (this includes techniques or standardized protocols for targeted exams where dose is matched to indication/reason for exam; i.e. extremities or head) *Use of iterative reconstruction technique DLP: 749 mGy-cm FINDINGS: LUNG BASES: There is significant respiratory motion limiting evaluation of the lung bases. There are are right greater than left bibasilar opacities which are overall decreased in their extent when compared with the prior study. No pleural effusion. Eventration of the right hemidiaphragm is again noted. Imaged heart is not enlarged. LIVER, GALLBLADDER, AND BILIARY TREE: The liver is normal in size, shape, and attenuation. No focal hepatic lesion or biliary ductal dilatation is present. The gallbladder is surgically absent. PANCREAS: Unremarkable. SPLEEN: Unremarkable. ADRENAL GLANDS: Unremarkable. KIDNEYS AND URETERS: The kidneys are normal in size, shape, and attenuation. There are bilateral renal calculi including a 4 mm right upper pole calculus 9.1 cm from the posterior mid axillary line, a 2 mm left upper pole calculus 8.6 cm in the posterior mid axillary line, a 2 mm left upper pole calculus 10.5 cm from the posterior mid axillary line, a 2 mm left mid to lower pole calculus 10.1 femurs from posterior midaxillary line and a 4 mm left lower pole calculus 10.9 cm in the posterior mid axillary line. Within the distal right ureter there is a 3 mm nonobstructing calculus (image 702, series 6). There is an 8 mm fluid attenuation cyst at the right upper pole not requiring additional radiographic follow-up. There is a 5 mm hypodensity at the midpole the left kidney which is too small to definitively characterize. There is no hydronephrosis or hydroureter. There is trace right perinephric stranding which is similar to prior BLADDER: There is a Villa catheter partially decompressing the bladder and a small amount of air within the bladder. There were 2 bladder calculi which measure 4 and 5 mm. GASTROINTESTINAL TRACT: There is a minimal hiatus hernia. The distal esophagus and stomach are unremarkable. The small and large bowel are normal in caliber without bowel wall inflammatory changes. The appendix is nondilated, though there is a 5 mm calcified appendicolith. There are no significant inflammatory changes of the appendix distal to the appendicolith. There is a rectal tube in place. ABDOMINAL WALL: No significant hernia is appreciated. LYMPH NODES: Normal. VASCULAR: Unremarkable. PELVIC VISCERA: Unremarkable. OSSEOUS STRUCTURES: There is a stable compression deformity of the T10 vertebral body. This is progressive vertebral body height loss at T12. There has been interval development of subtle compression deformities of the superior endplates of L2 and L4 and possible linear subchondral lucency along the inferior endplate of L1 which may represent a subtle nondisplaced compression fracture as well. CT/CT abdomen pelvis w con IMPRESSION: There is a nonobstructing 4 mm distal right ureteral calculus, 2 bladder calculi and several bilateral nonobstructing renal calculi. Interval development of vertebral compression deformities of the superior endplates of L2, L4 and possibly the inferior endplate of L1. There is progressive vertebral body height loss of T12 compression fracture. Increased aeration of the lung bases. Fleischner guidelines were followed.
--- NOTE | ~2021-06-14 | XR_ITS ---
EXAMINATION: PORTABLE CHEST 1 VIEW CLINICAL INFORMATION: RLL atelectasis . COMPARISON: 06/21/2021. TECHNIQUE: Portable frontal view of the chest was obtained. FINDINGS: The tracheal tube tip approximately 4 cm above the caden. Nasogastric tube below level of diaphragm. Right IJ central venous catheter tip near the cavoatrial junction. Lungs remain hypoexpanded with patchy bilateral regions of airspace disease. No significant effusion, overt edema, or pneumothorax. Cardiac and mediastinal silhouettes within normal limits for size. No acute bony abnormality. XR/XR chest 1V IMPRESSION: Tubes and lines as described. Persistent patchy bilateral airspace disease similar to yesterday's study.
--- NOTE | ~2021-06-14 | CT_ITS ---
EXAMINATION: CT THORACIC SPINE WITHOUT CONTRAST CLINICAL INFORMATION: Acute compression fractures pre-kyphoplasty evaluation. COMPARISON: MRI thoracic spine 08/06/2021. TECHNIQUE: Axial 2 mm thin and reformatted 2 mm thin sagittal and coronal images of thoracic spine were obtained from mid T12 through L4 vertebra. This CT examination was performed using dose optimization techniques as appropriate, variously including the following: *Automated exposure control *Adjustment of mA and/or kV according to patient size (this includes techniques or standardized protocols for targeted exams where dose is matched to indication/reason for exam; i.e. extremities or head) *Use of iterative reconstruction technique DLP: 496 mGy-cm FINDINGS: On sagittal reconstructed images there is new acute compression fracture T10 vertebra. There is a known moderate T12 compression fracture and mild superior endplate deformities of L1, L2 and L5 vertebral heights consistent with compression fractures. There was edema noted in the L5, L4, L2 and inferior endplate L1 vertebra on recent MRI suggestive of fractures. There is a small posterior bony component along the superior posterior endplate of T12 vertebra extending into the anterior epidural space but without spinal canal stenosis. The spinal canal is patent at the rest of the vertebral levels and disc levels except for moderate diffuse bulge of the L4-L5 disc level with mild circumferential canal stenosis. There is underlying moderate bilateral facet joint arthropathy and neural foraminal narrowing. There is moderate L4-L5 facet joint arthropathy and mild diffuse bulge of the L4-L5 disc level. The paravertebral soft tissues are normal. CT/CT thoracic spine wo con IMPRESSION: 1. Moderate to severe compression fracture T12 and mild compression deformities of L2, L3 and L4 superior endplates. 2. There is a mild diffuse bulge of the L4-L5 disc level with mild circumferential canal stenosis. The neural foramina are narrowed bilaterally at the L4-L5 disc level.
--- NOTE | ~2021-06-14 | XR_ITS ---
EXAMINATION: XR CHEST CLINICAL INFORMATION: Hypoxia COMPARISON: July 18, 2021 TECHNIQUE: AP portable view of the chest was obtained. FINDINGS: No pneumothorax or significant pleural effusion is seen. There is stable elevation of the right hemidiaphragm. There are again noted to be bilateral regions of interstitial and airspace disease which may be related to infectious etiology or possible edema of cardiogenic or noncardiogenic etiology. Heart upper limits of normal in size. XR/XR chest 1V IMPRESSION: Chronic elevation of the right hemidiaphragm. Bilateral regions of interstitial and airspace disease which may be on the basis of infectious, inflammatory, or related to pulmonary edema of cardiogenic or noncardiogenic etiology.
--- NOTE | ~2021-06-14 | XR_ITS ---
EXAMINATION: XR CHEST CLINICAL INFORMATION: Internal jugular central venous catheter placement COMPARISON: 06/19/2021 TECHNIQUE: Frontal view of the chest was obtained. XR/XR chest 1V FINDINGS/IMPRESSION: Right internal jugular central venous catheter terminates in the mid SVC. Endotracheal tube terminates 5.5 cm above the caden. Enteric tube courses below the diaphragm. No pneumothorax. Diffuse bilateral patchy and hazy airspace opacities redemonstrated, without appreciable change from the prior exam. No pleural effusion or pneumothorax. Stable cardiomediastinal silhouette.
--- NOTE | ~2021-06-14 | XR_ITS ---
EXAMINATION: XR LUMBOSACRAL SPINE CLINICAL INFORMATION: Low back pain COMPARISON: None TECHNIQUE: Three views of the lumbosacral spine. FINDINGS: There is mild straightening of lumbar lordosis. The vertebral heights and alignment is normal. There is superior endplate deformity L2, L3 and L4 vertebra with mild ventral spondylosis. No visible acute fracture, dislocation or lytic process seen. There is mild loss of L5-S1 disc height. There is mild bilateral L4-L5 and L5-S1 facet joint arthropathy. Bilateral SI joints are symmetrical and normal. No acute fracture, lytic or sclerotic process seen. The paravertebral soft tissues are normal. XR/XR lumbar spine 2-3V IMPRESSION: Superior endplate deformities of L2-L3 and L4 vertebra likely related to osteoporotic compressions of indeterminate age. If patient has acute pain further evaluation with MRI or bone scan can be obtained. Mild degenerative facet joint arthropathy at L4-L5 and L5-S1 disc level with degenerative L5-S1 disc changes.
[2021-06-15] VITALS (10 sets, daily range): BP systolic 133–167; BP diastolic 64–96; PULSE 90–126; RESP 18–26; TEMP 37.2; O2SAT 83–100; BMI 31.7
--- NOTE | 2021-06-15 | ECG_ITS ---
Test Reason : TACHYCARDIA Blood Pressure : / mmHG Vent. Rate : 118 BPM Atrial Rate : 118 BPM P-R Int : 118 ms QRS Dur : 120 ms QT Int : 348 ms P-R-T Axes : 025 -16 025 degrees QTc Int : 487 ms Sinus tachycardia with Premature atrial complexes Right bundle branch block Abnormal ECG When compared with ECG of 30-APR-2021 22:11, Premature atrial complexes are now Present Referred By: Generic ED Physician Electronically Signed By:MONICA MESSINA MD
--- NOTE | 2021-06-15 | ECG_ITS ---
Test Reason : tachycardia Blood Pressure : / mmHG Vent. Rate : 124 BPM Atrial Rate : 124 BPM P-R Int : 120 ms QRS Dur : 120 ms QT Int : 330 ms P-R-T Axes : 025 -23 033 degrees QTc Int : 474 ms Sinus tachycardia with Premature atrial complexes RSR' or QR pattern in V1 suggests right ventricular conduction delay Borderline ECG When compared with ECG of 15-JUN-2021 00:21, No significant change was found Referred By: Kaela Caldera Electronically Signed By:MONICA MESSINA MD
[2021-06-15] MEDS: Albuterol Sulfate (0.083%) 2.5 MG/3 ML VIAL.NEB 5 MG INHALE (00:31)
--- NOTE | 2021-06-15 00:41 | ED_ITS ---
HPI - SOB/Dyspnea General Chief Complaint: Dyspnea Stated Complaint: Trouble breathing, asthma Time Seen by Provider: 06/15/21 00:23 Source: patient and glass edger Mode of arrival: ambulatory History of Present Illness HPI Narrative: 60-year-old male with history of asthma and diabetes presents with increasing shortness of breath for the past couple of days but denies any new cough, chest pain/palpitations. Patient states that the swelling around his ankles has been present for a while. Patient endorses he has received both of his COVID-19 vaccines, Pfizer, but not his booster. Related Data Home Medications Medication Instructions Recorded Confirmed glyburide 5 mg tablet 5 mg PO BID 03/22/20 06/15/21 lisinopril 5 mg tablet 5 mg PO DAILY 03/22/20 06/15/21 mirtazapine 30 mg tablet 30 mg PO BEDTIME 03/22/20 06/15/21 folic acid 1 mg tablet 1 mg PO DAILY 02/14/21 06/15/21 melatonin 5 mg tablet 1 tab PO BEDTIME PRN 02/14/21 06/15/21 paroxetine HCl 40 mg tablet 40 mg PO DAILY 02/14/21 06/15/21 hydroxyzine pamoate 50 mg capsule 100 mg PO BEDTIME PRN 04/02/21 06/15/21 ustekinumab 90 mg/mL subcutaneous 90 mg SUBCUT Q8W 04/02/21 06/15/21 syringe (Stelara) methotrexate sodium 2.5 mg tablet 2.5 mg PO TU 05/15/21 06/02/21 prednisone 10 mg tablet 4 tab PO DAILY 06/02/21 06/02/21 doxycycline monohydrate 100 mg 1 tab PO BID 06/15/21 06/15/21 tablet Previous Rx's Medication Instructions Recorded tapentadol 50 mg tablet,extended 50 mg PO DAILY #30 tab 05/11/21 release,12 hr (Nucynta ER) sucralfate 1 gram tablet 1 g PO BID #180 tab 05/17/21 omeprazole 20 mg capsule,delayed 20 mg PO DAILY #30 cap 06/03/21 release Allergies Allergy/AdvReac Type Severity Reaction Status Date / Time No Known Allergies Allergy Verified 04/02/21 16:05 [No Known Allergies*] none Allergy Unknown Unknown Uncoded 04/02/21 16:05 Review of Systems Review of Systems: Pertinent positives and negatives as stated in HPI 10 point review of systems is otherwise negative. [facility] Past Medical History Source: nursing notes reviewed Medical History Acute promyelocytic leukemia Anxiety Asthma Chronic cholecystitis Chronic idiopathic constipation Colitis Crohn disease Depression Diabetes 1.5, managed as type 1 Diarrhea Elevated serum glutamic pyruvic transaminase (SGPT) level H/O flexible sigmoidoscopy Hypertension Kidney disease Left sided abdominal pain Renal stones Thalamic pain syndrome (hyperesthetic) Surgical History H/O lithotripsy H/O rectal sphincterotomy History of cholecystectomy History of colonoscopy History of hemorrhoidectomy Social History Social History (Reviewed 06/15/21 @ :28 by Kimberley Noel MD) Household Members: Children Housing: Apartment Do you presently have visiting nurse or other home services: No Alcohol intake: never Patient Tobacco Use Status: Never used Tobacco e-Cigarette/Vaping Use: Never Used Second Hand Smoke Exposure: No Advance Directives: Yes Advance Directives on File: Yes Advance Directives Date on File: 04/04/21 service: No Current occupational status: disabled Physical Exam Vital Signs: Vital Signs: Last Vital Signs Temp 98.9 F 06/15/21 00:21 Pulse 110 H 06/15/21 00:31 Resp 18 06/15/21 00:31 BP 164/96 H 06/15/21 00:21 Pulse Ox 100 06/15/21 00:21 Oxygen Flow Rate 10 06/15/21 00:21 BMI result Body Mass Index 31.7 VITAL SIGNS: Reviewed. GENERAL: Chronically ill, in no acute distress. HEAD: Normocephalic/atraumatic, EYES: PERRLA, EOMI OROPHARYNX: no oral lesions noted, posterior pharynx clear NECK: Supple, no adenopathy LUNGS: Tachypnea present, increased work of breathing, rales are noted bilaterally without rhonchi or expiratory wheeze.. SpO2<100> on 100% non- rebreather, initially noted to be 84% on room air CARDIOVASCULAR: Tachycardia and rhythm without noted murmurs, no JVD but bilateral lower ankle 1+ pitting edema ABDOMEN: Soft, non-tender, non-distended with bowel sounds. RAHEL: No external hemorrhoids noted, rectal vault with minimal soft stool that is light brown in nature, good rectal tone MUSCULOSKELETAL: No tenderness, deformities, or effusions noted on gross inspection. EXTREMITIES: No cyanosis, clubbing or edema. SKIN: Inspection of the skin reveals no rashes NEUROLOGIC: Alert and oriented x 4. Strength and sensation to light touch were grossly intact x 4. Course Course Course Narrative: 60-year-old male with history and clinical presentation multifactorial and noted to be tachypneic and tachycardic with symptoms consistent with COVID-19 which was corroborated and this is likely contributing to patient's hypoxia. Patient received an albuterol treatment 10 on review of all investigations is noted to have had a decrease in his H/H again with known history of IBD. Suspect that patient's current symptoms are related to COVID-19 pneumonia which was demonstrated by rapid COVID testing as well as chest x-ray. In addition, patient was noted to be in mild heart failure and was provided with 40 mg of Lasix. Patient has been type and screen but does not require urgent blood transfusion at this time. The noted lactic acid is likely secondary to patient's hypoxic episode as symptoms are otherwise related to viral infection. I discussed this case with the inpatient hospitalist who accepts admission. MDM - SOB/Dyspnea Lab Data Result diagrams: 06/15/21 00:51 06/15/21 00:51 Labs: Lab Results 06/15/21 06/15/21 06/15/21 Range/Units 00:50 00:51 00:51 WBC 4.2 L (4.8-10.8) X10*3/uL RBC 3.55 L (4.60-5.80) X10*6/uL Hgb 8.8 L (14.0-18.0) g/dl Hct 30.0 L (42.0-52.0) % MCV 84.5 (80.0-98.0) fL MCH 24.8 L (27.0-33.0) pg MCHC 29.3 L (31.0-36.0) g/dl RDW 17.8 H (11.0-16.0) % Plt Count 214 D (160-400) X10*3/uL MPV 9.4 (9.4-12.4) fL Immature Gran % (Auto) 0.5 H (0.0-0.4) % Neut % (Auto) 90.1 H (45-73) % Lymph % (Auto) 7.3 L (20-40) % [place] % (Auto) 2.1 (2-11) % Eos % (Auto) 0.0 (0-4) % Baso % (Auto) 0.0 (0-2) % Lymph # (Auto) 0.3 L (1.2-4.9) X10*3/uL [place] # (Auto) 0.1 (0.1-1.2) X10*3/uL Eos # (Auto) 0.0 (0.0-0.4) X10*3/uL Baso # (Auto) 0.0 (0.0-0.2) X10*3/uL Abs Immat Gran (auto) 0.02 (0.00-0.03) X10*3/uL Absolute Neuts (auto) 3.8 (2.0-8.3) x10*3/uL Absolute Nucleated RBC 0.000 (0.0-0.012) X10*3/uL Nucleated RBC % (auto) 0.0 (0.0-0.2) /100WBC Smear Tech's Comments VERIFIED PT (9.9-13.0) SEC INR (0.9-1.1) VBG pH (7.32-7.43) VBG pCO2 mmHg VBG pO2 mmHg VBG HCO3 (22-26) mmol/L VBG O2 Saturation % VBG Base Excess mmol/L Lactic Acid (0.5-2.0) mmol/L B-Natriuretic Peptide 148 H (<100) pg/mL Stool Occult Blood (NEGATIVE) COVID-19 (KRISTOPHER) (Negative) COVID-19 Clin Com Blood Type O Positive Antibody Screen NEGATIVE 06/15/21 06/15/21 06/15/21 Range/Units 00:51 00:51 00:51 WBC (4.8-10.8) X10*3/uL RBC (4.60-5.80) X10*6/uL Hgb (14.0-18.0) g/dl Hct (42.0-52.0) % MCV (80.0-98.0) fL MCH (27.0-33.0) pg MCHC (31.0-36.0) g/dl RDW (11.0-16.0) % Plt Count (160-400) X10*3/uL MPV (9.4-12.4) fL Immature Gran % (Auto) (0.0-0.4) % Neut % (Auto) (45-73) % Lymph % (Auto) (20-40) % [place] % (Auto) (2-11) % Eos % (Auto) (0-4) % Baso % (Auto) (0-2) % Lymph # (Auto) (1.2-4.9) X10*3/uL [place] # (Auto) (0.1-1.2) X10*3/uL Eos # (Auto) (0.0-0.4) X10*3/uL Baso # (Auto) (0.0-0.2) X10*3/uL Abs Immat Gran (auto) (0.00-0.03) X10*3/uL Absolute Neuts (auto) (2.0-8.3) x10*3/uL Absolute Nucleated RBC (0.0-0.012) X10*3/uL Nucleated RBC % (auto) (0.0-0.2) /100WBC Smear Tech's Comments PT 12.7 (9.9-13.0) SEC INR 1.1 (0.9-1.1) VBG pH (7.32-7.43) VBG pCO2 mmHg VBG pO2 mmHg VBG HCO3 (22-26) mmol/L VBG O2 Saturation % VBG Base Excess mmol/L Lactic Acid 2.4 H* (0.5-2.0) mmol/L B-Natriuretic Peptide (<100) pg/mL Stool Occult Blood (NEGATIVE) COVID-19 (KRISTOPHER) Positive A (Negative) COVID-19 Clin Com See Note Blood Type Antibody Screen 06/15/21 06/15/21 Range/Units 00:51 00:53 WBC (4.8-10.8) X10*3/uL RBC (4.60-5.80) X10*6/uL Hgb (14.0-18.0) g/dl Hct (42.0-52.0) % MCV (80.0-98.0) fL MCH (27.0-33.0) pg MCHC (31.0-36.0) g/dl RDW (11.0-16.0) % Plt Count (160-400) X10*3/uL MPV (9.4-12.4) fL Immature Gran % (Auto) (0.0-0.4) % Neut % (Auto) (45-73) % Lymph % (Auto) (20-40) % [place] % (Auto) (2-11) % Eos % (Auto) (0-4) % Baso % (Auto) (0-2) % Lymph # (Auto) (1.2-4.9) X10*3/uL [place] # (Auto) (0.1-1.2) X10*3/uL Eos # (Auto) (0.0-0.4) X10*3/uL Baso # (Auto) (0.0-0.2) X10*3/uL Abs Immat Gran (auto) (0.00-0.03) X10*3/uL Absolute Neuts (auto) (2.0-8.3) x10*3/uL Absolute Nucleated RBC (0.0-0.012) X10*3/uL Nucleated RBC % (auto) (0.0-0.2) /100WBC Smear Tech's Comments PT (9.9-13.0) SEC INR (0.9-1.1) VBG pH 7.46 H (7.32-7.43) VBG pCO2 34 mmHg VBG pO2 64 mmHg VBG HCO3 24 (22-26) mmol/L VBG O2 Saturation 88.0 % VBG Base Excess 1.3 mmol/L Lactic Acid (0.5-2.0) mmol/L B-Natriuretic Peptide (<100) pg/mL Stool Occult Blood POSITIVE (NEGATIVE) COVID-19 (KRISTOPHER) (Negative) COVID-19 Clin Com Blood Type Antibody Screen ECG Data Attestation: I personally reviewed and interpreted this ECG as follows: Prior ECG tracings: available for review (04/30/2021) Interpretation: Sinus tachycardia with PACs, right bundle branch block, HR-118, no STEMI, MN/QTC within normal limits. Critical Care Time Critical Care Time Critical Care Time: Yes Total Critical Care Time: 30 Attestation: I personally attest to this time spent taking care of the patient. Discharge Plan Discharge Clinical Impression: IBD (inflammatory bowel disease), Anemia, Pneumonia due to COVID-19 virus, Hypoxia, CHF (congestive heart failure) Patient Disposition: Admitted As Inpatient
[2021-06-15 01:00] LABS: Hemoglobin 8.8 g/dl (14.0-18.0); Imm Gran Abs Auto 0.02 X10*3/uL (0.00-0.03); Imm Gran Pct Auto 0.5 % (0.0-0.4); Lymphocytes Absolute Auto 0.3 X10*3/uL (1.2-4.9); Lymphocytes Percent Auto 7.3 % (20-40); MANUAL DIFF FLAG SCAN; Mean Corpuscular HGB Conc 29.3 g/dl (31.0-36.0); Mean Corpuscular Hemoglobin 24.8 pg (27.0-33.0); Mean Corpuscular Volume 84.5 fL (80.0-98.0); Mean Platelet Volume 9.4 fL (9.4-12.4); Monocytes Absolute Auto 0.1 X10*3/uL (0.1-1.2); Monocytes Percent Auto 2.1 % (2-11); Neutrophils Absolute Auto 3.8 x10*3/uL (2.0-8.3); Neutrophils Percent Auto 90.1 % (45-73); Platelet Count 214 X10*3/uL (160-400); Red Blood Count 3.55 X10*6/uL (4.60-5.80); Red Cell Distribution Width 17.8 % (11.0-16.0); SCAN SMEAR FLAG 1; White Blood Count 4.2 X10*3/uL (4.8-10.8)
[2021-06-15 01:03] LABS: OBS1 POSITIVE (NEGATIVE)
[2021-06-15 01:04] LABS: OBS Int Ctl Valid YES
[2021-06-15 01:05] LABS: SLIDE REVIEW VERIFIED
[2021-06-15 01:10] LABS: INTERNATIONAL NORM RATIO 1.1 (0.9-1.1); Prothrombin Time 12.7 SEC (9.9-13.0)
[2021-06-15 01:12] LABS: Lactic Acid 2.4 mmol/L (0.5-2.0)
[2021-06-15 01:16] LABS: COVID-19 Test Positive (Negative); IDNOW Serial# 9DD0AD1C
[2021-06-15 01:20] LABS: B Type Natriuretic Peptide 148 pg/mL (<100)
[2021-06-15 01:32] LABS: Venous Blood Gas Refer to POC result
[2021-06-15 01:33] LABS: VBG Base Excess 1.3 mmol/L; VBG HCO3 24 mmol/L (22-26); VBG pCO2 34 mmHg; VBG pH 7.46 (7.32-7.43); VBG pO2 64 mmHg
[2021-06-15] MEDS: Furosemide 40 MG/4 ML VIAL IVPUSH (02:35)
[2021-06-15 02:48] LABS: Alanine Aminotransferase 19 U/L (0-40); Albumin Level 3.4 g/dL (3.5-5.0); Alkaline Phosphatase 87 U/L (39-117); Anion Gap 15 (12-20); Aspartate Amino Transferase 16 U/L (5-37); Bilirubin Total 0.3 mg/dL (0.0-1.0); Blood Urea Nitrogen 21 mg/dL (9-16); Calcium 8.4 mg/dL (8.4-10.2); Carbon Dioxide 25 mmol/L (22-29); Chloride 106 mmol/L (96-108); Creatinine Clr Calc Pharmacy 98.8; Estimated Glomerular Filt Rate > 60; Glucose Random 304 mg/dL (60-115); Potassium 3.9 mmol/L (3.3-5.1); Sodium 142 mmol/L (135-145); Total Protein 6.2 g/dL (6.5-8.0)
[2021-06-15 02:58] LABS: Reflex Lactate? Lactic Acid Added
--- NOTE | 2021-06-15 03:19 | PC.NURSE ---
PATIENT GETTING UP TO USE THE URINAL, SATING HE CAN'T BREATH. O2 SAT IS 89% ON 4L NASAL CANNULA. PLACED ON A NON-REBREATHER, PATIENT SO2 SAT IS AT 100% STATING FEELING BETTER, WILL RETURN PATIENT TO NASAL CANNULA ONCE BREATHING RATE IS MORE EVEN AND REGULAR, SIMILAR INCIDENT HAPPENING TO PATIENT ON ARRIVAL AND WAS ABLE TO RETURN TO NASAL CANNULA 4L, O2 SAT 97%
[2021-06-15 03:39] LABS: Appearance Urine CLEAR; Color Urine YELLOW; Glucose Urine UA 250 MG/DL (NEG); Leukocyte Esterase Urine NEG (NEG); Nitrite Urine NEG (NEG); UACC Culture Trigger NO; Urine Blood 2+ (NEG); Urine Ketones NEG (NEG); Urine Protein NEG (NEG-TRACE)
[2021-06-15 03:47] LABS: Bacteria Urine 1+ /LPF; Mucus Urine 1+ /LPF; Squamous Epithelial Cell Urine 1+ /LPF
[2021-06-15 03:51] LABS: ~Lactic Acid-LAB USE ONLY 2.6 mmol/L (0.5-2.0)
--- NOTE | 2021-06-15 04:59 | PC.NURSE ---
PATIENT HAVING A SIMILAR EPISODE EARLIER, RESP THERAPIST CALLED PATIENT PLACED ON HIGH FLOW 40/40.
[2021-06-15 05:37] LABS: Reflex Lactate? 2 Y
[2021-06-15 08:19] LABS: ~Lactic Acid-LAB USE ONLY 2.1 mmol/L (0.5-2.0)
--- NOTE | 2021-06-15 10:35 | PC.NURSE ---
Pt is alert and oriented. Assisted to use bedside commode as needed, does become midly SOB with exertion with decreased 02 sat but will increase with rest. Hi Flow NC in use at 40lpm. A fib on tele with rate 90-110. Skin midly pale, warm and dry. Two bowel movements noted this AM, brown in color. Denies pain or discomfort.
--- NOTE | 2021-06-15 11:06 | PC.NURSE ---
Resp down to asses, pt sat remained 88-90% after transferring to bedside commode, RT placed pt on [place] cannula at 12lpm, sat 95% at this time.
--- NOTE | 2021-06-15 11:29 | PC.NURSE ---
Pt noted to be anxious, states this room is making me crazy , pt reassured and given drink and will reach out for medication to assist in sx.
[2021-06-15 12:01] LABS: D Dimer High Sensitivity 338 NG/ML
[2021-06-15 12:02] LABS: C Reactive Protein 10.08 mg/dL (< or = 0.50); Lactate Dehydrogenase 369 U/L (118-273)
[2021-06-15 12:21] LABS: Ferritin 357 ng/mL (20-250)
[2021-06-15 12:23] LABS: Procalcitonin 0.24 ng/mL
--- NOTE | 2021-06-15 13:05 | PM.IMHP ---
History of Present Illness Date of Service: 06/15/21 Attending physician on admission: Andrew Hernandez Chief Complaint: shortness of breath this is a 60-year-old male with a history of ulcerative colitis on with Stelara and methotrexate who presents to the emergency department with shortness of breath. Patient was initially hypoxic and placed on high-flow oxygen. He tested positive for COVID-19. He denies any recent sick contacts. He reports shortness of breath starting yesterday. He has no associated cough, muscle aches, joint pain. He has been weaned down to 11 L by [facility] At this time. in the emergency department lab work is unremarkable with the exception of elevated lactic acid. He received breathing treatment as well as a dose of IV Lasix. He will be admitted to the hospital for further management of acute respiratory failure secondary to COVID-19. Vaccination status- patient received [employer] vaccination x2. He has not yet received his booster shot, he was scheduled to receive it on 26 of June. Review of Systems Review of Systems: Yes all other systems are reviewed and are negative Constitutional: Constitutional: Denies chills and Denies fever(s) Cardiovascular: Cardiovascular: Denies chest pain and Reports dyspnea Respiratory: Respiratory: Reports dyspnea Gastrointestinal: Gastrointestinal: Denies abdominal pain [facility] Medical History Acute promyelocytic leukemia Anxiety Asthma Chronic cholecystitis Chronic idiopathic constipation Colitis Crohn disease Depression Diabetes 1.5, managed as type 1 Diarrhea Elevated serum glutamic pyruvic transaminase (SGPT) level H/O flexible sigmoidoscopy Hypertension Kidney disease Left sided abdominal pain Renal stones Thalamic pain syndrome (hyperesthetic) Surgical History H/O lithotripsy H/O rectal sphincterotomy History of cholecystectomy History of colonoscopy History of hemorrhoidectomy Social History Household Members: Children Housing: Apartment Do you presently have visiting nurse or other home services: No Alcohol intake: never Patient Tobacco Use Status: Never used Tobacco e-Cigarette/Vaping Use: Never Used Second Hand Smoke Exposure: No Advance Directives: Yes Advance Directives on File: Yes Advance Directives Date on File: 04/04/21 service: No Current occupational status: disabled Meds Allergies Allergy/AdvReac Type Severity Reaction Status Date / Time No Known Allergies Allergy Verified 04/02/21 16:05 [No Known Allergies*] none Allergy Unknown Unknown Uncoded 04/02/21 16:05 Active Medications: Current Medications Acetaminophen (Acetaminophen 325 Mg Tablet) 650 mg PO Q6H PRN PRN Reason: Pain, Mild (Pain Scale 1-3) Dexamethasone Sodium Phosphate (Dexamethasone Sod Phosphate 4 Mg/Ml Vial) 6 mg IVPUSH DAILY [facility] Docusate Sodium (Docusate Sodium 100 Mg Capsule) 100 mg PO DAILY PRN PRN Reason: Constipation Enoxaparin Sodium (Enoxaparin Sodium 40 Mg/0.4 Ml Syringe) 40 mg SUBCUT Q24H [facility] Ondansetron HCl (Ondansetron Hcl 4 Mg/2 Ml Vial) 4 mg IVPUSH Q8H PRN PRN Reason: Nausea and Vomiting Sodium Chloride (0.9 % Sodium Chloride Flush 3 Ml Syringe) 3 ml IVFLUSH QSHIFT [facility] Home Medications Medication Instructions Recorded Confirmed Last Taken Type glyburide 5 mg tablet 5 mg PO BID 03/22/20 06/15/21 05/14/21 History lisinopril 5 mg tablet 5 mg PO DAILY 03/22/20 06/15/21 05/14/21 History mirtazapine 30 mg tablet 30 mg PO BEDTIME 03/22/20 06/15/21 05/14/21 History folic acid 1 mg tablet 1 mg PO DAILY 02/14/21 06/15/21 05/14/21 History melatonin 5 mg tablet 1 tab PO BEDTIME PRN 02/14/21 06/15/21 05/14/21 History paroxetine HCl 40 mg tablet 40 mg PO DAILY 02/14/21 06/15/21 06/01/21 09:00 History hydroxyzine pamoate 50 mg capsule 100 mg PO BEDTIME PRN 04/02/21 06/15/21 05/14/21 History ustekinumab 90 mg/mL subcutaneous 90 mg SUBCUT Q8W 04/02/21 06/15/21 05/13/21 History syringe (Stelara) methotrexate sodium 2.5 mg tablet 2.5 mg PO TU 05/15/21 06/02/21 05/08/21 History prednisone 10 mg tablet 4 tab PO DAILY 06/02/21 06/02/21 Unknown History doxycycline monohydrate 100 mg 1 tab PO BID 06/15/21 06/15/21 Unknown History tablet Physical Exam Vital Signs and Narrative: Vital Signs: Last Vital Signs Temp 98.9 F 06/15/21 00:21 Pulse 106 H 06/15/21 10:34 Resp 24 H 06/15/21 10:34 BP 154/91 H 06/15/21 10:34 Pulse Ox 88 L 06/15/21 10:34 Oxygen Flow Rate 10 06/15/21 00:21 BMI result Body Mass Index 31.7 Const: General: cooperative, comfortable, alert and awake Nutritional Appearance: well nourished Orientation/consciousness: patient oriented x3 HENMT: Head: Yes normocephalic and Yes atraumatic Eyes: Sclerae: sclerae normal Resp: Other: bilateral expiratory rhonchi. No rales, no wheezing Effort & Inspection: tachypneic Cardio: Rate: tachycardic Rhythm: regular rhythm GI: Inspection: No distended Palpation (GI): Soft to palpation and nontender Neuro: General: patient oriented x3 Cranial nerves: Yes CN's II-XII intact bilaterally and Yes Bilaterally intact EOM present Extrem: Other: no leg edema Results Labs CBC and Chem 7: 06/15/21 00:51 06/15/21 00:51 Labs: Laboratory Results - last 24 hr 06/15/21 06/15/21 06/15/21 00:50 00:51 00:51 MCV 84.5 MCH 24.8 L MCHC 29.3 L RDW 17.8 H Plt Count 214 D MPV 9.4 Immature Gran % (Auto) 0.5 H Neut % (Auto) 90.1 H Lymph % (Auto) 7.3 L [place] % (Auto) 2.1 Eos % (Auto) 0.0 Baso % (Auto) 0.0 Lymph # (Auto) 0.3 L [place] # (Auto) 0.1 Eos # (Auto) 0.0 Baso # (Auto) 0.0 Abs Immat Gran (auto) 0.02 Absolute Neuts (auto) 3.8 Absolute Nucleated RBC 0.000 Nucleated RBC % (auto) 0.0 Smear Tech's Comments VERIFIED PT INR D-Dimer High Sensitivty VBG pH VBG pCO2 VBG pO2 VBG HCO3 VBG O2 Saturation VBG Base Excess Anion Gap 15 Estim Creat Clear Calc 98.8 Estimated GFR > 60 Random Glucose 304 H D Lactic Acid Lactic Acid F/U @ 2Hr Lactic Acid F/U @ 4Hr Calcium 8.4 D Ferritin 357 H Total Bilirubin 0.3 AST 16 ALT 19 Alkaline Phosphatase 87 Lactate Dehydrogenase 369 H C-Reactive Protein 10.08 H B-Natriuretic Peptide Total Protein 6.2 L Albumin 3.4 L Procalcitonin Urine Color Urine Appearance Urine pH Ur Specific [place] Urine Protein Urine Glucose (UA) Urine Ketones Urine Blood Urine Nitrite Ur Leukocyte Esterase Urine RBC Urine WBC Ur Squamous Epith Cells Urine Bacteria Urine Mucus Stool Occult Blood COVID-19 (KRISTOPHER) [employer] Com Blood Type O Positive Antibody Screen NEGATIVE 06/15/21 06/15/21 06/15/21 00:51 00:51 00:51 MCV MCH MCHC RDW Plt Count MPV Immature Gran % (Auto) Neut % (Auto) Lymph % (Auto) [place] % (Auto) Eos % (Auto) Baso % (Auto) Lymph # (Auto) [place] # (Auto) Eos # (Auto) Baso # (Auto) Abs Immat Gran (auto) Absolute Neuts (auto) Absolute Nucleated RBC Nucleated RBC % (auto) Smear Tech's Comments PT 12.7 INR 1.1 D-Dimer High Sensitivty 338 VBG pH VBG pCO2 VBG pO2 VBG HCO3 VBG O2 Saturation VBG Base Excess Anion Gap Estim Creat Clear Calc Estimated GFR Random Glucose Lactic Acid Lactic Acid F/U @ 2Hr Lactic Acid F/U @ 4Hr Calcium Ferritin Total Bilirubin AST ALT Alkaline Phosphatase Lactate Dehydrogenase C-Reactive Protein B-Natriuretic Peptide 148 H Total Protein Albumin Procalcitonin Urine Color Urine Appearance Urine pH Ur Specific [place] Urine Protein Urine Glucose (UA) Urine Ketones Urine Blood Urine Nitrite Ur Leukocyte Esterase Urine RBC Urine WBC Ur Squamous Epith Cells Urine Bacteria Urine Mucus Stool Occult Blood COVID-19 (KRISTOPHER) Positive A [employer] See Note Blood Type Antibody Screen 06/15/21 06/15/21 06/15/21 00:51 00:51 00:51 MCV MCH MCHC RDW Plt Count MPV Immature Gran % (Auto) Neut % (Auto) Lymph % (Auto) [place] % (Auto) Eos % (Auto) Baso % (Auto) Lymph # (Auto) [place] # (Auto) Eos # (Auto) Baso # (Auto) Abs Immat Gran (auto) Absolute Neuts (auto) Absolute Nucleated RBC Nucleated RBC % (auto) Smear Tech's Comments PT INR D-Dimer High Sensitivty VBG pH VBG pCO2 VBG pO2 VBG HCO3 VBG O2 Saturation VBG Base Excess Anion Gap Estim Creat Clear Calc Estimated GFR Random Glucose Lactic Acid 2.4 H* Lactic Acid F/U @ 2Hr Lactic Acid F/U @ 4Hr Calcium Ferritin Total Bilirubin AST ALT Alkaline Phosphatase Lactate Dehydrogenase C-Reactive Protein B-Natriuretic Peptide Total Protein Albumin Procalcitonin 0.24 Urine Color Urine Appearance Urine pH Ur Specific [place] Urine Protein Urine Glucose (UA) Urine Ketones Urine Blood Urine Nitrite Ur Leukocyte Esterase Urine RBC Urine WBC Ur Squamous Epith Cells Urine Bacteria Urine Mucus Stool Occult Blood POSITIVE COVID-19 (KRISTOPHER) COVID-Poppin Blood Type Antibody Screen 06/15/21 06/15/21 06/15/21 00:53 03:17 03:23 MCV MCH MCHC RDW Plt Count MPV Immature Gran % (Auto) Neut % (Auto) Lymph % (Auto) [place] % (Auto) Eos % (Auto) Baso % (Auto) Lymph # (Auto) [place] # (Auto) Eos # (Auto) Baso # (Auto) Abs Immat Gran (auto) Absolute Neuts (auto) Absolute Nucleated RBC Nucleated RBC % (auto) Smear Tech's Comments PT INR D-Dimer High Sensitivty VBG pH 7.46 H VBG pCO2 34 VBG pO2 64 VBG HCO3 24 VBG O2 Saturation 88.0 VBG Base Excess 1.3 Anion Gap Estim Creat Clear Calc Estimated GFR Random Glucose Lactic Acid Lactic Acid F/U @ 2Hr 2.6 H* Lactic Acid F/U @ 4Hr Calcium Ferritin Total Bilirubin AST ALT Alkaline Phosphatase Lactate Dehydrogenase C-Reactive Protein B-Natriuretic Peptide Total Protein Albumin Procalcitonin Urine Color YELLOW Urine Appearance CLEAR Urine pH 6.0 Ur Specific [place] 1.020 Urine Protein NEG Urine Glucose (UA) 250 H Urine Ketones NEG Urine Blood 2+ H Urine Nitrite NEG Ur Leukocyte Esterase NEG Urine RBC 10-14 H Urine WBC 1-4 Ur Squamous Epith Cells 1+ Urine Bacteria 1+ Urine Mucus 1+ Stool Occult Blood COVID-19 (KRISTOPHER) COVID-19 [place] Blood Type Antibody Screen 06/15/21 07:38 MCV MCH MCHC RDW Plt Count MPV Immature Gran % (Auto) Neut % (Auto) Lymph % (Auto) [place] % (Auto) Eos % (Auto) Baso % (Auto) Lymph # (Auto) [place] # (Auto) Eos # (Auto) Baso # (Auto) Abs Immat Gran (auto) Absolute Neuts (auto) Absolute Nucleated RBC Nucleated RBC % (auto) Smear Tech's Comments PT INR D-Dimer High Sensitivty VBG pH VBG pCO2 VBG pO2 VBG HCO3 VBG O2 Saturation VBG Base Excess Anion Gap Estim Creat Clear Calc Estimated GFR Random Glucose Lactic Acid Lactic Acid F/U @ 2Hr Lactic Acid F/U @ 4Hr 2.1 H* Calcium Ferritin Total Bilirubin AST ALT Alkaline Phosphatase Lactate Dehydrogenase C-Reactive Protein B-Natriuretic Peptide Total Protein Albumin Procalcitonin Urine Color Urine Appearance Urine pH Ur Specific [place] Urine Protein Urine Glucose (UA) Urine Ketones Urine Blood Urine Nitrite Ur Leukocyte Esterase Urine RBC Urine WBC Ur Squamous Epith Cells Urine Bacteria Urine Mucus Stool Occult Blood COVID-19 (KRISTOPHER) COVID-19 Clin Com Blood Type Antibody Screen Imaging Radiologist's Impressions: Impressions Chest X-Ray 06/15/21 01:32 IMPRESSION: Multifocal pneumonitis Assessment and Plan (1) Pneumonia due to COVID-19 virus: Status: Acute this is a 60-year-old male with history of Crohn's disease on Stelara, prednisone, methotrexate who presents to the emergency department with shortness of breath found to have hypoxia and COVID-19 positive acute respiratory failure with hypoxia secondary to COVID-19 pneumonia immune compromised secondary to underlying inflammatory bowel disease on stalera vaccinated x2, no booster elevated inflammatory markers currently requiring 11 L start IV Decadron ID consult elevated lactic acid Secondary to hypoxia, not sepsis mood Continue Remeron, Paxil chronic pain Continue tapentadol history of inflammatory bowel disease Hold Stelara unclear patient still takes methotrexate or prednisone HTN continue lisinopril DVT prophylaxis -Lovenox Code status -full code Healthcare proxy does needed to be his sister Attending-Dr. Hernandez Quality Stroke Does the patient have a stroke diagnosis?: No VTE Prior VTE?: No VTE Risk Level:: Medical - moderate - high VTE Device Contraindication: N/A - Device Ordered VTE Drug Contraindication: N/A - Med Ordered
[2021-06-15] MEDS: dexAMETHasone sod phosphate 4 MG/ML VIAL 6 MG IVPUSH (14:23)
[2021-06-15] MEDS: Enoxaparin Sodium 40 MG/0.4 ML SYRINGE SUBCUT (14:23)
[2021-06-15] MEDS: 0.9 % Sodium Chloride Flush 3 ML SYRINGE IVFLUSH (14:26)
--- NOTE | 2021-06-15 14:39 | PC.NURSE ---
Pt ate lunch then transferred self onto bedside commode, noted with increased SOB and sat down to 83% on [facility] cannula. Placed on NRB to assist increased sat and sat up to 95%. RT to bedside to place pt back onto hi flow. At this time, pt breathing appearing less labored, RT adjusting settings to increase/maintain sat.
--- NOTE | 2021-06-15 16:03 | PC.NURSE ---
Pt anxious, asked this PCT and PCT [facility] to help him, states he wants to leave, get out of this room , pt requesting larger/more comfortable bed. Will locate hospital bed for pt
[2021-06-15] MEDS: Remdesivir 200 MG in 0.9 % Sodium Chloride 210 ML 105 MG IV (16:26)
[2021-06-15 16:28] LABS: Thyroid Stimulating Hormone 0.37 uIU/mL (0.32-4.0)
[2021-06-15 17:11] LABS: Glucose, Whole Blood 134 mg/dL (60-115)
[2021-06-15] MEDS: Morphine Sulfate 2 MG/ML CARTRIDGE IVPUSH (17:38)
[2021-06-15] MEDS: iohexoL 350 MG/ML 100 ML INFUS..BTL IV (20:03)
[2021-06-15 20:27] LABS: Glucose, Whole Blood 188 mg/dL (60-115)
[2021-06-15] MEDS: Insulin Lispro 100 UNIT/ML 3 ML VIAL SUBCUT (20:38)
[2021-06-15] MEDS: Mirtazapine 30 MG TABLET PO (20:39)
[2021-06-15] MEDS: Sucralfate 1 GM TABLET PO (20:39)
[2021-06-15] MEDS: hydrOXYzine HCL 50 MG TABLET 100 MG PO (20:39)
[2021-06-15] MEDS: Melatonin 3 MG TABLET PO (23:20)
[2021-06-16] VITALS (12 sets, daily range): BP systolic 113–165; BP diastolic 57–108; PULSE 90–118; RESP 18–23; TEMP 36.4–37.5; O2SAT 90–94
[2021-06-16] MEDS: 0.9 % Sodium Chloride Flush 3 ML SYRINGE IVFLUSH ×4 (00:43→21:27)
[2021-06-16] MEDS: Morphine Sulfate 2 MG/ML CARTRIDGE IVPUSH (02:34)
[2021-06-16] MEDS: Omeprazole 20 MG CAPSULE.DR PO (05:54)
[2021-06-16 06:52] LABS: MANUAL DIFF FLAG NO
[2021-06-16 07:01] LABS: Hematocrit 35.3 % (42.0-52.0); Hemoglobin 10.2 g/dl (14.0-18.0); Imm Gran Abs Auto 0.03 X10*3/uL (0.00-0.03); Imm Gran Pct Auto 0.3 % (0.0-0.4); Lymphocytes Absolute Auto 0.8 X10*3/uL (1.2-4.9); Lymphocytes Percent Auto 9.5 % (20-40); Mean Corpuscular HGB Conc 28.9 g/dl (31.0-36.0); Mean Corpuscular Hemoglobin 24.3 pg (27.0-33.0); Mean Platelet Volume 10.7 fL (9.4-12.4); Monocytes Absolute Auto 0.2 X10*3/uL (0.1-1.2); Neutrophils Absolute Auto 7.8 x10*3/uL (2.0-8.3); Neutrophils Percent Auto 88.2 % (45-73); Platelet Count 170 X10*3/uL (160-400); Red Cell Distribution Width 17.9 % (11.0-16.0); White Blood Count 8.9 X10*3/uL (4.8-10.8)
[2021-06-16 07:32] LABS: Anion Gap 18 (12-20); Blood Urea Nitrogen 16 mg/dL (9-16); Calcium 8.7 mg/dL (8.4-10.2); Carbon Dioxide 24 mmol/L (22-29); Chloride 100 mmol/L (96-108); Creatinine Clr Calc Pharmacy 126.2; Estimated Glomerular Filt Rate > 60; Glucose Random 95 mg/dL (60-115); Sodium 138 mmol/L (135-145)
[2021-06-16 08:34] LABS: Glucose, Whole Blood 95 mg/dL (60-115)
--- NOTE | 2021-06-16 10:31 | HO.PM.IMPN ---
Subjective Subjective Date of Service: 06/16/21 <Meliza [address] NP - Last Filed: 06/16/21 10:37> 07/12/21 <Rey Becerril MD - Last Filed: 07/12/21 16:53> Review of Systems Follow up covid 19 Feeling better on high glow sitting on the side of the bed <Meliza St NP - Last Filed: 06/16/21 10:37> Physical Exam Vital Signs: Vital Signs: Last Vital Signs Temp 98.8 F 06/16/21 08:00 Pulse 95 06/16/21 08:00 Resp 18 06/16/21 08:00 BP 113/57 L 06/16/21 08:00 Pulse Ox 93 06/16/21 08:00 Oxygen Flow Rate 10 06/15/21 00:21 BMI result Body Mass Index 31.7 <[address] NP - Last Filed: 06/16/21 10:37> Appearing in no acute distress lung sounds normal expansion heart regular rate rhythm, clear S1, S2 positive bowel sounds, abdomen is soft, nontender neuro patient is alert x3, no focal deficits <Meliza St NP - Last Filed: 06/16/21 10:37> Objective Data Active Medications Acetaminophen (Acetaminophen 325 Mg Tablet) 650 mg PO Q6H PRN PRN Reason: Pain, Mild (Pain Scale 1-3) Dexamethasone Sodium Phosphate (Dexamethasone Sod Phosphate 4 Mg/Ml Vial) 6 mg IVPUSH DAILY [facility] Last Admin: 06/15/21 14:23 Dose: 6 mg Documented by: DARWIN Dextrose (Dextrose 50 % 25 Gm/50 Ml Vial) 25 gm IVPUSH Q15M PRN; Protocol PRN Reason: per Hypoglycemia Standing Ord. Docusate Sodium (Docusate Sodium 100 Mg Capsule) 100 mg PO DAILY PRN PRN Reason: Constipation Enoxaparin Sodium (Enoxaparin Sodium 40 Mg/0.4 Ml Syringe) 40 mg SUBCUT Q24H [facility] Last Admin: 06/15/21 14:23 Dose: 40 mg Documented by: DARWIN Folic Acid (Folic Acid 1 Mg Tablet) 1 mg PO DAILY [facility] Glucose (Glucose Gel 15 Gm Gel..Gram.) 15 gm PO Q15M PRN; Protocol PRN Reason: per Hypoglycemia Standing Ord. Hydroxyzine HCl (Hydroxyzine Hcl 50 Mg Tablet) 100 mg PO BEDTIME PRN PRN Reason: Anxiety Last Admin: 06/15/21 20:39 Dose: 100 mg Documented by: ALICIA Remdesivir 100 mg/ Sodium (Chloride) 230 mls @ 115 mls/hr IV Q24H [facility] Stop: 06/19/21 17:59 Insulin Human Lispro (Insulin Lispro 100 Unit/Ml 3 Ml Vial) 0 unit SUBCUT QIDACHS [facility]; Protocol Last Admin: 06/16/21 08:45 Dose: Not Given Documented by: LUZ ELENA Non-Admin Reason: No Insulin Coverage Lisinopril (Lisinopril 5 Mg Tablet) 5 mg PO DAILY [facility]; Protocol Melatonin (Melatonin 3 Mg Tablet) 3 mg PO BEDTIME PRN PRN Reason: Insomnia Last Admin: 06/15/21 23:20 Dose: 3 mg Documented by: ALICIA Mirtazapine (Mirtazapine 30 Mg Tablet) 30 mg PO BEDTIME [facility] Last Admin: 06/15/21 20:39 Dose: 30 mg Documented by: ALICIA Morphine Sulfate (Morphine Sulfate 2 Mg/Ml Cartridge) 2 mg IVPUSH Q4H PRN; Protocol PRN Reason: work of breathing Last Admin: 06/16/21 02:34 Dose: 2 mg Documented by: IJEOMA Non-Formulary Medication (Tapentadol [Nucynta Er]) 50 mg PO DAILY [facility] Omeprazole (Omeprazole 20 Mg Capsule.Dr) 20 mg PO DAILY@0630 [facility] Last Admin: 06/16/21 05:54 Dose: 20 mg Documented by: IJEOMA Ondansetron HCl (Ondansetron Hcl 4 Mg/2 Ml Vial) 4 mg IVPUSH Q8H PRN PRN Reason: Nausea and Vomiting Paroxetine HCl (Paroxetine Hcl 40 Mg Tablet) 40 mg PO DAILY [facility] Sodium Chloride (0.9 % Sodium Chloride Flush 3 Ml Syringe) 3 ml IVFLUSH QSHIFT [facility] Last Admin: 06/16/21 00:43 Dose: 3 ml Documented by: IJEOMA Sucralfate (Sucralfate 1 Gm Tablet) 1 gm PO BID [facility] Last Admin: 06/15/21 20:39 Dose: 1 gm Documented by: ALICIA <Meliza St NP - Last Filed: 06/16/21 10:37> Labs CBC & Chem 7: : 07/12/21 05:40 07/12/21 05:40 <Meliza St NP - Last Filed: 06/16/21 10:37> Labs: Laboratory Results - last 24 hr 06/15/21 06/15/21 06/15/21 00:51 00:51 00:51 MCV MCH MCHC RDW Plt Count MPV Immature Gran % (Auto) Neut % (Auto) Lymph % (Auto) [place] % (Auto) Eos % (Auto) Baso % (Auto) Lymph # (Auto) [place] # (Auto) Eos # (Auto) Baso # (Auto) Abs Immat Gran (auto) Absolute Neuts (auto) Absolute Nucleated RBC Nucleated RBC % (auto) D-Dimer High Sensitivty 338 Anion Gap Estim Creat Clear Calc Estimated GFR POC Glucose Random Glucose Calcium Ferritin 357 H Lactate Dehydrogenase 369 H C-Reactive Protein 10.08 H Procalcitonin 0.24 TSH 0.37 06/15/21 06/15/21 06/16/21 17:06 20:23 06:22 MCV 84.0 MCH 24.3 L MCHC 28.9 L RDW 17.9 H Plt Count 170 MPV 10.7 Immature Gran % (Auto) 0.3 Neut % (Auto) 88.2 H Lymph % (Auto) 9.5 L [place] % (Auto) 2.0 Eos % (Auto) 0.0 Baso % (Auto) 0.0 Lymph # (Auto) 0.8 L [place] # (Auto) 0.2 Eos # (Auto) 0.0 Baso # (Auto) 0.0 Abs Immat Gran (auto) 0.03 Absolute Neuts (auto) 7.8 Absolute Nucleated RBC 0.000 Nucleated RBC % (auto) 0.0 D-Dimer High Sensitivty Anion Gap Estim Creat Clear Calc Estimated GFR POC Glucose 134 H 188 H Random Glucose Calcium Ferritin Lactate Dehydrogenase C-Reactive Protein Procalcitonin TSH 06/16/21 06/16/21 06:22 08:31 MCV MCH MCHC RDW Plt Count MPV Immature Gran % (Auto) Neut % (Auto) Lymph % (Auto) [place] % (Auto) Eos % (Auto) Baso % (Auto) Lymph # (Auto) [place] # (Auto) Eos # (Auto) Baso # (Auto) Abs Immat Gran (auto) Absolute Neuts (auto) Absolute Nucleated RBC Nucleated RBC % (auto) D-Dimer High Sensitivty Anion Gap 18 Estim Creat Clear Calc 126.2 Estimated GFR > 60 POC Glucose 95 Random Glucose 95 D Calcium 8.7 Ferritin Lactate Dehydrogenase C-Reactive Protein Procalcitonin TSH <Meliza St NP - Last Filed: 06/16/21 10:37> Microbiology Microbiology Results: Microbiology 06/15/21 00:51 Blood Culture - Preliminary Blood - Venous No growth after 24 hours. 06/15/21 00:50 Blood Culture - Preliminary Blood - Venous No growth after 24 hours. <Meliza St NP - Last Filed: 06/16/21 10:37> Assessment and Plan (1) Pneumonia due to COVID-19 virus: Status: Acute <Meliza St NP - Last Filed: 06/16/21 10:37> Plan 60-year-old male with history of Crohn's disease on Stelara, prednisone, methotrexate who presents to the emergency department with shortness of breath found to have hypoxia and COVID-19 positive. Vaccinated with Pfizer x2. ?Acute respiratory failure with hypoxia secondary to COVID-19 pneumonia ?immune compromised secondary to underlying inflammatory bowel disease on stalera ?vaccinated x2, no booster ?elevated inflammatory markers ?currently requiring 11 L ?start IV Decadron Remdesivir started by Infectious Disease Elevated lactic acid Secondary to hypoxia, not sepsis mood Continue Remeron, Paxil chronic pain Continue tapentadol history of inflammatory bowel disease Hold? Stelara unclear patient still takes methotrexate or prednisone HTN continue lisinopril DVT prophylaxis -Lovenox Code status -full code Attending-Dr. Becerril <Meliza St NP - Last Filed: 06/16/21 10:37> Quality Stroke Does the patient have a stroke diagnosis?: No <Meliza St NP - Last Filed: 06/16/21 10:37> VTE Prior VTE?: No <Meliza St NP - Last Filed: 06/16/21 10:37> VTE Risk Level:: Medical - moderate - high <Meliza St NP - Last Filed: 06/16/21 10:37> VTE Device Contraindication: N/A - Device Ordered <Meliza St NP - Last Filed: 06/16/21 10:37> VTE Drug Contraindication: N/A - Med Ordered <Meliza St NP - Last Filed: 06/16/21 10:37>
[2021-06-16] MEDS: dexAMETHasone sod phosphate 4 MG/ML VIAL 6 MG IVPUSH (10:43)
[2021-06-16] MEDS: Sucralfate 1 GM TABLET PO ×2 (10:43→21:26)
[2021-06-16] MEDS: PARoxetine HCL 40 MG TABLET PO (10:44)
[2021-06-16] MEDS: lisinopriL 5 MG TABLET PO (10:44)
[2021-06-16] MEDS: Folic Acid 1 MG TABLET PO (10:44)
[2021-06-16] MEDS: Acetaminophen 325 MG TABLET 650 MG PO (11:27)
[2021-06-16 11:46] LABS: Glucose, Whole Blood 112 mg/dL (60-115)
[2021-06-16] MEDS: Remdesivir 100 MG in 0.9 % Sodium Chloride 230 ML 115 MG IV (15:45)
[2021-06-16] MEDS: Enoxaparin Sodium 40 MG/0.4 ML SYRINGE SUBCUT (15:45)
[2021-06-16 17:06] LABS: Glucose, Whole Blood 157 mg/dL (60-115)
[2021-06-16] MEDS: Insulin Lispro 100 UNIT/ML 3 ML VIAL SUBCUT ×2 (17:11→21:26)
[2021-06-16 20:58] LABS: Glucose, Whole Blood 162 mg/dL (60-115)
[2021-06-16] MEDS: Melatonin 3 MG TABLET PO (21:26)
[2021-06-16] MEDS: Mirtazapine 30 MG TABLET PO (21:26)
[2021-06-16] MEDS: hydrOXYzine HCL 50 MG TABLET 100 MG PO (21:27)
[2021-06-17] VITALS (13 sets, daily range): BP systolic 122–157; BP diastolic 75–83; PULSE 95–127; RESP 20–25; TEMP 36.1–36.4; O2SAT 87–98
[2021-06-17] MEDS: Morphine Sulfate 2 MG/ML CARTRIDGE IVPUSH (00:10)
--- NOTE | 2021-06-17 02:49 | PC.NURSE ---
Addendum entered by Becki Parker RN 06/17/21 06:10: This RN in to medicate patient at 0600, pt sitting on edge of bed and had removed NRB and c/o about why he is here and why he hasn't been sent home yet. This RN educated patient on his oxygen requirement - pt is not receptive, talking over this RN. PT doesn't feel he needs to be here. PT remains anxious and restless. NRB remains off at this time as pt is unwilling to have it on, but sats are sustaining between 89-92%. Original Note: Patient sats starting to sustain in the low 80's around midnight, WOB increased, RR 24- morphine administered. Pt repositioned to side, bed elevated. Sats increased intermittently to 87/88 % but continued to drop to low 80's. Respiratory called and at at bedside HFNC increased to 55L,100% around 0045. Pt sats slightly increased to the 87-89% for about 45minutes. Pt up to commode at 0145, sats down to 70-80%. Once back in bed sats remained in low 80's. Respiratory called again and this RN put a NRB on patient, sats up to 88/89% after NRB on for about 10 minutes.
[2021-06-17] MEDS: Omeprazole 20 MG CAPSULE.DR PO (06:03)
[2021-06-17] MEDS: lisinopriL 5 MG TABLET PO (07:41)
[2021-06-17] MEDS: dexAMETHasone sod phosphate 4 MG/ML VIAL 6 MG IVPUSH (07:41)
[2021-06-17] MEDS: Folic Acid 1 MG TABLET PO (07:41)
[2021-06-17] MEDS: PARoxetine HCL 40 MG TABLET PO (07:41)
[2021-06-17 07:42] LABS: Glucose, Whole Blood 83 mg/dL (60-115)
[2021-06-17] MEDS: 0.9 % Sodium Chloride Flush 3 ML SYRINGE IVFLUSH ×3 (07:42→22:14)
[2021-06-17] MEDS: Sucralfate 1 GM TABLET PO ×2 (07:42→22:14)
[2021-06-17] MEDS: Ascorbic Acid 500 MG TABLET 1000 MG PO (08:05)
[2021-06-17] MEDS: Acetaminophen 325 MG TABLET 650 MG PO ×2 (08:05→23:30)
[2021-06-17] MEDS: Cholecalciferol (Vitamin D3) 25 MCG TABLET 50 MCG PO (08:05)
--- NOTE | 2021-06-17 10:25 | MHC.CM.PN ---
Attempted to call patient's listed phone number for interview; call went straight to . Will try again later.
--- NOTE | 2021-06-17 10:31 | MHC.CM.PN ---
Reached out to listed contact (Deng; brother/contact #1). Deng indicates that patient lives in an apartment w/his son and the bathroom is on the second floor. Deng does not know if patient has any equipment in the home for ADL use (cane, walker, etc). Deng states that he thinks patient still drives. In-home nursing services also are unknown. CM will have to make F/U attempt w/patient another time as well for D/C planning needs. CM to follow.
--- NOTE | 2021-06-17 10:51 | P.PNIM_ITS ---
Subjective Subjective Date of Service: 06/17/21 <Meliza [address] NP - Last Filed: 06/17/21 11:02> 07/12/21 <Rey Becerril MD - Last Filed: 07/12/21 16:54> Review of Systems Follow up covid 19 Feeling better on high flow sitting on the side of the bed <Meliza St NP - Last Filed: 06/17/21 11:02> Physical Exam Verdana 4l Vital Signs: Verdana 4d Verdana 4d Vital Signs: Verdana 4d Verdana 4Bd Last Vital Signs Verdana 4d Lye Peel Operator New 4d Lye Peel Operator New 4d Temp 97.0 F 06/17/21 03:29 Lye Peel Operator New 4d Pulse 127 H 06/17/21 03:29 Lye Peel Operator New 4d Resp 24 H 06/17/21 08:31 BP 157/83 H 06/17/21 03:29 Pulse Ox 87 L 06/17/21 07:49 Oxygen Flow Rate 10 06/15/21 00:21 BMI result Body Mass Index 31.7 <Meliza [address] NP - Last Filed: 06/17/21 11:02> Objective Data Active Medications Acetaminophen (Acetaminophen 325 Mg Tablet) 650 mg PO Q6H PRN PRN Reason: Pain, Mild (Pain Scale 1-3) Last Admin: 06/17/21 08:05 Dose: 650 mg Documented by: LUZ ELENA Ascorbic Acid (Ascorbic Acid 500 Mg Tablet) 1,000 mg PO DAILY [facility] Last Admin: 06/17/21 08:05 Dose: 1,000 mg Documented by: LUZ ELENA Dexamethasone Sodium Phosphate (Dexamethasone Sod Phosphate 4 Mg/Ml Vial) 6 mg IVPUSH DAILY [facility] Last Admin: 06/17/21 07:41 Dose: 6 mg Documented by: LUZ ELENA Dextrose (Dextrose 50 % 25 Gm/50 Ml Vial) 25 gm IVPUSH Q15M PRN; Protocol PRN Reason: per Hypoglycemia Standing Ord. Docusate Sodium (Docusate Sodium 100 Mg Capsule) 100 mg PO DAILY PRN PRN Reason: Constipation Enoxaparin Sodium (Enoxaparin Sodium 40 Mg/0.4 Ml Syringe) 40 mg SUBCUT Q24H [facility] Last Admin: 06/16/21 15:45 Dose: 40 mg Documented by: LUZ ELENA Folic Acid (Folic Acid 1 Mg Tablet) 1 mg PO DAILY [facility] Last Admin: 06/17/21 07:41 Dose: 1 mg Documented by: LUZ ELENA Glucose (Glucose Gel 15 Gm Gel..Gram.) 15 gm PO Q15M PRN; Protocol PRN Reason: per Hypoglycemia Standing Ord. Hydroxyzine HCl (Hydroxyzine Hcl 50 Mg Tablet) 100 mg PO BEDTIME PRN PRN Reason: Anxiety Last Admin: 06/16/21 21:27 Dose: 100 mg Documented by: QUINN Remdesivir 100 mg/ Sodium (Chloride) 230 mls @ 115 mls/hr IV Q24H [facility] Stop: 06/19/21 17:59 Last Infusion: 06/16/21 18:27 Dose: 0 mls/hr Documented by: LUZ ELENA Insulin Human Lispro (Insulin Lispro 100 Unit/Ml 3 Ml Vial) 0 unit SUBCUT QIDACHS [facility]; Protocol Last Admin: 06/17/21 08:06 Dose: Not Given Documented by: LUZ ELENA Non-Admin Reason: No Insulin Coverage Lisinopril (Lisinopril 5 Mg Tablet) 5 mg PO DAILY [facility]; Protocol Last Admin: 06/17/21 07:41 Dose: 5 mg Documented by: LUZ ELENA Melatonin (Melatonin 3 Mg Tablet) 3 mg PO BEDTIME PRN PRN Reason: Insomnia Last Admin: 06/16/21 21:26 Dose: 3 mg Documented by: QUINN Mirtazapine (Mirtazapine 30 Mg Tablet) 30 mg PO BEDTIME [facility] Last Admin: 06/16/21 21:26 Dose: 30 mg Documented by: QUINN Morphine Sulfate (Morphine Sulfate 2 Mg/Ml Cartridge) 2 mg IVPUSH Q4H PRN; Protocol PRN Reason: work of breathing Last Admin: 06/17/21 00:10 Dose: 2 mg Documented by: QUINN Non-Formulary Medication (Tapentadol [Nucynta Er]) 50 mg PO DAILY [facility] Omeprazole (Omeprazole 20 Mg Capsule.) 20 mg PO DAILY@0630 [facility] Last Admin: 06/17/21 06:03 Dose: 20 mg Documented by: QUINN Ondansetron HCl (Ondansetron Hcl 4 Mg/2 Ml Vial) 4 mg IVPUSH Q8H PRN PRN Reason: Nausea and Vomiting Paroxetine HCl (Paroxetine Hcl 40 Mg Tablet) 40 mg PO DAILY [facility] Last Admin: 06/17/21 07:41 Dose: 40 mg Documented by: LUZ ELENA Sodium Chloride (0.9 % Sodium Chloride Flush 3 Ml Syringe) 3 ml IVFLUSH QSHIFT [facility] Last Admin: 06/17/21 07:42 Dose: 3 ml Documented by: LUZ ELENA Sucralfate (Sucralfate 1 Gm Tablet) 1 gm PO BID [facility] Last Admin: 06/17/21 07:42 Dose: 1 gm Documented by: LUZ ELENA Vitamin D (Cholecalciferol (Vitamin D3) 25 Mcg Tablet) 50 mcg PO DAILY [facility] Last Admin: 06/17/21 08:05 Dose: 50 mcg Documented by: LUZ ELENA <Meliza St NP - Last Filed: 06/17/21 11:02> Labs CBC & Chem 7: : 07/12/21 05:40 07/12/21 05:40 <Meliza St NP - Last Filed: 06/17/21 11:02> Labs: Laboratory Results - last 24 hr 06/16/21 06/16/21 06/16/21 11:20 16:54 20:54 POC Glucose 112 157 H 162 H 06/17/21 07:37 POC Glucose 83 <Meliza St NP - Last Filed: 06/17/21 11:02> Microbiology Microbiology Results: Microbiology 06/15/21 00:51 Blood Culture - Preliminary Blood - Venous No growth after 48 hours. 06/15/21 00:50 Blood Culture - Preliminary Blood - Venous No growth after 48 hours. <Meliza St NP - Last Filed: 06/17/21 11:02> Assessment and Plan (1) Pneumonia due to COVID-19 virus: Status: Acute <Meliza St NP - Last Filed: 06/17/21 11:02> Plan 60-year-old male with history of Crohn's disease on Stelara, prednisone, methotrexate who presents to the emergency department with shortness of breath found to have hypoxia and COVID-19 positive. Vaccinated with Pfizer x2. ?Acute respiratory failure with hypoxia secondary to COVID-19 pneumonia ?immune compromised secondary to underlying inflammatory bowel disease on stalera ?vaccinated x2, no booster ?elevated inflammatory markers High flow 100%, 55L with 15L NRB with activity ?IV Decadron Remdesivir started by Infectious Disease Elevated lactic acid Secondary to hypoxia, not sepsis mood Continue Remeron, Paxil chronic pain Continue tapentadol history of inflammatory bowel disease Hold? Gagan ramos patient still takes methotrexate or prednisone HTN continue lisinopril DVT prophylaxis -Lovenox Code status -full code Attending-Dr. Becerril <Meliza St NP - Last Filed: 06/17/21 11:02> Quality Stroke Does the patient have a stroke diagnosis?: No <Meliza St NP - Last Filed: 06/17/21 11:02> VTE Prior VTE?: No <Meliza St NP - Last Filed: 06/17/21 11:02> VTE Risk Level:: Medical - moderate - high <Meliza St NP - Last Filed: 06/17/21 11:02> VTE Device Contraindication: N/A - Device Ordered <Meliza St NP - Last Filed: 06/17/21 11:02> VTE Drug Contraindication: N/A - Med Ordered <Meliza St NP - Last Filed: 06/17/21 11:02>
[2021-06-17 10:54] LABS: Glucose, Whole Blood 222 mg/dL (60-115)
[2021-06-17] MEDS: Insulin Lispro 100 UNIT/ML 3 ML VIAL SUBCUT ×3 (12:19→22:13)
[2021-06-17] MEDS: Remdesivir 100 MG in 0.9 % Sodium Chloride 230 ML 115 MG IV (16:22)
[2021-06-17] MEDS: Enoxaparin Sodium 40 MG/0.4 ML SYRINGE SUBCUT (16:23)
[2021-06-17 16:53] LABS: Glucose, Whole Blood 257 mg/dL (60-115)
[2021-06-17 21:01] LABS: Glucose, Whole Blood 174 mg/dL (60-115)
[2021-06-17] MEDS: Mirtazapine 30 MG TABLET PO (22:14)
[2021-06-18] VITALS (15 sets, daily range): BP systolic 111–153; BP diastolic 65–85; PULSE 80–129; RESP 18–26; TEMP 36.2–37.1; O2SAT 88–96
[2021-06-18] MEDS: hydrOXYzine HCL 50 MG TABLET 100 MG PO ×2 (02:05→21:11)
[2021-06-18] MEDS: Morphine Sulfate 2 MG/ML CARTRIDGE IVPUSH (02:07)
[2021-06-18] MEDS: Omeprazole 20 MG CAPSULE.DR PO (06:08)
[2021-06-18 06:46] LABS: Hematocrit 35.7 % (42.0-52.0); Hemoglobin 10.3 g/dl (14.0-18.0); Mean Corpuscular HGB Conc 28.9 g/dl (31.0-36.0); Mean Corpuscular Hemoglobin 24.1 pg (27.0-33.0); Mean Corpuscular Volume 83.4 fL (80.0-98.0); Mean Platelet Volume 10.4 fL (9.4-12.4); Platelet Count 207 X10*3/uL (160-400); Red Blood Count 4.28 X10*6/uL (4.60-5.80); Red Cell Distribution Width 17.5 % (11.0-16.0); White Blood Count 10.8 X10*3/uL (4.8-10.8)
[2021-06-18 07:21] LABS: Anion Gap 17 (12-20); Blood Urea Nitrogen 24 mg/dL (9-16); Calcium 9.3 mg/dL (8.4-10.2); Carbon Dioxide 28 mmol/L (22-29); Chloride 102 mmol/L (96-108); Creatinine Clr Calc Pharmacy 141.6; Estimated Glomerular Filt Rate > 60; Glucose Random 117 mg/dL (60-115); Potassium 4.5 mmol/L (3.3-5.1); Sodium 142 mmol/L (135-145)
[2021-06-18 07:22] LABS: Lactate Dehydrogenase 670 U/L (118-273)
[2021-06-18 07:34] LABS: Ferritin 437 ng/mL (20-250)
[2021-06-18 07:48] LABS: Glucose, Whole Blood 106 mg/dL (60-115)
--- NOTE | 2021-06-18 08:48 | P.CDIC_ITS ---
CDI Concurrent Query Documentation Clarification: PHYSICIAN'S DOCUMENTATION REQUEST Date of Query: 06/18/21 0849 Patient Name: Bhavik Johnson Admit Date: 06/15/21 Dear Doctor, A review of the medical record indicates additional documentation may be needed. Please review below and update the documentation accordingly. Risk Factors/Clinical Indicators/Treatments ED: 06/15 - noted to be in mild heart failure BNP [address] Las[facility] History of CHF. H&P: Not clinically in heart failure, will check echo. Clarity and consistency of documentation within the medical record: Type: * Systolic * Diastolic * Combined Systolic/Diastolic * Other ? please specify * Unable to determine Acuity: * Acute * Chronic * Acute on chronic * Unable to determine Use of terms such as suspected, likely, concern for, or probable (associated with a specific diagnosis that is being evaluated, monitored, or treated as if it exists) are acceptable and can be coded in the inpatient setting, when documented at the time of discharge. Thank you, Marni Quintana [facility], [facility] Extension: [phone] Please use your independent medical judgment in providing your response. THIS QUERY IS PART OF THE PERMANENT MEDICAL RECORD Provider Response: Other Other Diagnosis: Work up in progress, unable to answer pending echo
[2021-06-18] MEDS: PARoxetine HCL 40 MG TABLET PO (09:57)
[2021-06-18] MEDS: dexAMETHasone sod phosphate 4 MG/ML VIAL 6 MG IVPUSH (09:57)
[2021-06-18] MEDS: 0.9 % Sodium Chloride Flush 3 ML SYRINGE IVFLUSH ×3 (09:57→21:13)
[2021-06-18] MEDS: Cholecalciferol (Vitamin D3) 25 MCG TABLET 50 MCG PO (09:57)
[2021-06-18] MEDS: Ascorbic Acid 500 MG TABLET 1000 MG PO (09:58)
[2021-06-18] MEDS: lisinopriL 5 MG TABLET PO (09:58)
[2021-06-18] MEDS: Sucralfate 1 GM TABLET PO ×2 (09:58→21:11)
[2021-06-18] MEDS: Folic Acid 1 MG TABLET PO (09:58)
--- NOTE | 2021-06-18 10:29 | HO.PM.IMPN ---
Subjective Subjective Date of Service: 06/18/21 Review of Systems Follow up covid 19 Feeling better on high flow with nrb sitting in the chair in his room Physical Exam Vital Signs: Vital Signs: Last Vital Signs Temp 98.7 F 06/18/21 07:21 Pulse 129 H 06/18/21 09:58 Resp 20 06/18/21 07:32 BP 111/69 06/18/21 09:58 Pulse Ox 94 06/18/21 07:21 Oxygen Flow Rate 06/15/21 00:21 BMI result Body Mass Index 31.7 Appearing in no acute distress lung sounds normal expansion heart regular rate rhythm, clear S1, S2 positive bowel sounds, abdomen is soft, nontender neuro patient is alert x3, no focal deficits Objective Data Active Medications Acetaminophen (Acetaminophen 325 Mg Tablet) 650 mg PO Q6H PRN PRN Reason: Pain, Mild (Pain Scale 1-3) Last Admin: 06/17/21 23:30 Dose: 650 mg Documented by: YAMILEX Ascorbic Acid (Ascorbic Acid 500 Mg Tablet) 1,000 mg PO DAILY [facility] Last Admin: 06/18/21 09:58 Dose: 1,000 mg Documented by: ALEKS Dexamethasone Sodium Phosphate (Dexamethasone Sod Phosphate 4 Mg/Ml Vial) 6 mg IVPUSH DAILY [facility] Last Admin: 06/18/21 09:57 Dose: 6 mg Documented by: ALEKS Dextrose (Dextrose 50 % 25 Gm/50 Ml Vial) 25 gm IVPUSH Q15M PRN; Protocol PRN Reason: per Hypoglycemia Standing Ord. Docusate Sodium (Docusate Sodium 100 Mg Capsule) 100 mg PO DAILY PRN PRN Reason: Constipation Enoxaparin Sodium (Enoxaparin Sodium 40 Mg/0.4 Ml Syringe) 40 mg SUBCUT Q24H [facility] Last Admin: 06/17/21 16:23 Dose: 40 mg Documented by: LUZ ELENA Folic Acid (Folic Acid 1 Mg Tablet) 1 mg PO DAILY [facility] Last Admin: 06/18/21 09:58 Dose: 1 mg Documented by: ALEKS Glucose (Glucose Gel 15 Gm Gel..Gram.) 15 gm PO Q15M PRN; Protocol PRN Reason: per Hypoglycemia Standing Ord. Hydroxyzine HCl (Hydroxyzine Hcl 50 Mg Tablet) 100 mg PO BEDTIME PRN PRN Reason: Anxiety Last Admin: 06/18/21 02:05 Dose: 100 mg Documented by: YAMILEX Remdesivir 100 mg/ Sodium (Chloride) 230 mls @ 115 mls/hr IV Q24H [facility] Stop: 06/19/21 17:59 Last Infusion: 06/17/21 19:00 Dose: 0 mls/hr Documented by: LUZ ELENA Insulin Human Lispro (Insulin Lispro 100 Unit/Ml 3 Ml Vial) 0 unit SUBCUT QIDACHS [facility]; Protocol Last Admin: 06/18/21 07:50 Dose: Not Given Documented by: ALEKS Non-Admin Reason: No Insulin Coverage Comments: poc 106 Lisinopril (Lisinopril 5 Mg Tablet) 5 mg PO DAILY [facility]; Protocol Last Admin: 06/18/21 09:58 Dose: 5 mg Documented by: ALEKS Melatonin (Melatonin 3 Mg Tablet) 3 mg PO BEDTIME PRN PRN Reason: Insomnia Last Admin: 06/16/21 21:26 Dose: 3 mg Documented by: QUINN Mirtazapine (Mirtazapine 30 Mg Tablet) 30 mg PO BEDTIME [facility] Last Admin: 06/17/21 22:14 Dose: 30 mg Documented by: YAMILEX Morphine Sulfate (Morphine Sulfate 2 Mg/Ml Cartridge) 2 mg IVPUSH Q4H PRN; Protocol PRN Reason: work of breathing Last Admin: 06/18/21 02:07 Dose: 2 mg Documented by: YAMILEX Omeprazole (Omeprazole 20 Mg Capsule.Dr) 20 mg PO DAILY@0630 [facility] Last Admin: 06/18/21 06:08 Dose: 20 mg Documented by: YAMILEX Ondansetron HCl (Ondansetron Hcl 4 Mg/2 Ml Vial) 4 mg IVPUSH Q8H PRN PRN Reason: Nausea and Vomiting Paroxetine HCl (Paroxetine Hcl 40 Mg Tablet) 40 mg PO DAILY [facility] Last Admin: 06/18/21 09:57 Dose: 40 mg Documented by: ALEKS Sodium Chloride (0.9 % Sodium Chloride Flush 3 Ml Syringe) 3 ml IVFLUSH QSHIFT [facility] Last Admin: 06/18/21 09:57 Dose: 3 ml Documented by: ALEKS Sucralfate (Sucralfate 1 Gm Tablet) 1 gm PO BID [facility] Last Admin: 06/18/21 09:58 Dose: 1 gm Documented by: ALEKS Vitamin D (Cholecalciferol (Vitamin D3) 25 Mcg Tablet) 50 mcg PO DAILY [facility] Last Admin: 06/18/21 09:57 Dose: 50 mcg Documented by: ALEKS Labs CBC & Chem 7: 06/18/21 06:28 06/18/21 06:28 Labs: Laboratory Results - last 24 hr 06/17/21 06/17/21 06/17/21 10:49 16:47 20:55 MCV MCH MCHC RDW Plt Count MPV Absolute Nucleated RBC Nucleated RBC % (auto) Anion Gap Estim Creat Clear Calc Estimated GFR POC Glucose 222 H 257 H 174 H Random Glucose Calcium Ferritin Lactate Dehydrogenase 06/18/21 06/18/21 06/18/21 06:28 06:28 06:28 MCV 83.4 MCH 24.1 L MCHC 28.9 L RDW 17.5 H Plt Count 207 MPV 10.4 Absolute Nucleated RBC 0.000 Nucleated RBC % (auto) 0.0 Anion Gap 17 Estim Creat Clear Calc 141.6 Estimated GFR > 60 POC Glucose Random Glucose 117 H Calcium 9.3 D Ferritin 437 H Lactate Dehydrogenase 670 H 06/18/21 07:30 MCV MCH MCHC RDW Plt Count MPV Absolute Nucleated RBC Nucleated RBC % (auto) Anion Gap Estim Creat Clear Calc Estimated GFR POC Glucose 106 Random Glucose Calcium Ferritin Lactate Dehydrogenase Assessment and Plan (1) IBD (inflammatory bowel disease): Status: Acute (2) Pneumonia due to COVID-19 virus: Status: Acute Assessment and Plan: 60-year-old male with history of Crohn's disease on Stelara, prednisone, methotrexate who presents to the emergency department with shortness of breath found to have hypoxia and COVID-19 positive. Vaccinated with Pfizer x2. ?Acute respiratory failure with hypoxia secondary to COVID-19 pneumonia ?immune compromised secondary to underlying inflammatory bowel disease on stalera ?vaccinated x2, no booster ?elevated inflammatory markers ?High flow 100% with NRB ?IV Decadron ?Remdesivir started by Infectious Disease Elevated lactic acid Secondary to hypoxia, not sepsis mood Continue Remeron, Paxil chronic pain Continue tapentadol history of inflammatory bowel disease Hold? Stelara unclear patient still takes methotrexate or prednisone HTN continue lisinopril Reports that he does not want intubation DVT prophylaxis -Lovenox Code status -full code, Reports that he does not want intubation Attending-Dr. Hernandez Quality Quality Stroke Does the patient have a stroke diagnosis?: No VTE Prior VTE?: No VTE Risk Level:: Medical - moderate - high VTE Device Contraindication: N/A - Device Ordered VTE Drug Contraindication: N/A - Med Ordered
[2021-06-18] MEDS: Insulin Lispro 100 UNIT/ML 3 ML VIAL SUBCUT ×3 (12:10→21:11)
[2021-06-18 13:46] LABS: Glucose, Whole Blood 189 mg/dL (60-115)
[2021-06-18] MEDS: Remdesivir 100 MG in 0.9 % Sodium Chloride 230 ML 115 MG IV (14:42)
[2021-06-18 16:32] LABS: Glucose, Whole Blood 263 mg/dL (60-115)
[2021-06-18] MEDS: Enoxaparin Sodium 40 MG/0.4 ML SYRINGE SUBCUT (17:31)
[2021-06-18 20:41] LABS: Glucose, Whole Blood 221 mg/dL (60-115)
[2021-06-18] MEDS: Mirtazapine 30 MG TABLET PO (21:11)
[2021-06-19] VITALS (20 sets, daily range): BP systolic 75–174; BP diastolic 39–105; PULSE 88–125; RESP 9–31; TEMP 35–37.2; O2SAT 88–99
[2021-06-19] MEDS: Acetaminophen 325 MG TABLET 650 MG PO (03:16)
[2021-06-19] MEDS: Omeprazole 20 MG CAPSULE.DR PO (05:47)
[2021-06-19 07:48] LABS: Glucose, Whole Blood 130 mg/dL (60-115)
[2021-06-19] MEDS: dexAMETHasone sod phosphate 4 MG/ML VIAL 6 MG IVPUSH (09:03)
[2021-06-19] MEDS: PARoxetine HCL 40 MG TABLET PO (09:04)
[2021-06-19] MEDS: Folic Acid 1 MG TABLET PO (09:04)
[2021-06-19] MEDS: 0.9 % Sodium Chloride Flush 3 ML SYRINGE IVFLUSH ×2 (09:04→16:02)
[2021-06-19] MEDS: lisinopriL 5 MG TABLET PO (09:04)
[2021-06-19] MEDS: Cholecalciferol (Vitamin D3) 25 MCG TABLET 50 MCG PO (09:05)
[2021-06-19] MEDS: Sucralfate 1 GM TABLET PO ×2 (09:05→21:20)
[2021-06-19] MEDS: Ascorbic Acid 500 MG TABLET 1000 MG PO (09:05)
[2021-06-19 11:38] LABS: Glucose, Whole Blood 176 mg/dL (60-115)
--- NOTE | 2021-06-19 11:52 | P.PNIM_ITS ---
Subjective Subjective Date of Service: 06/19/21 Review of Systems Follow up covid 19 Feeling better on high flow with nrb sitting in the chair in his room Physical Exam Vital Signs: Vital Signs: Last Vital Signs Temp 97.7 F 06/19/21 11:25 Pulse 110 H 06/19/21 11:25 Resp 19 06/19/21 11:25 BP 139/79 06/19/21 11:25 Pulse Ox 93 06/19/21 11:25 Oxygen Flow Rate 10 06/15/21 00:21 BMI result Body Mass Index 31.7 Appearing in no acute distress, looks ok sitting in side of the bed lung sounds normal expansion heart regular rate rhythm, clear S1, S2 positive bowel sounds, abdomen is soft, nontender neuro patient is alert x3, no focal deficits Objective Data Active Medications Acetaminophen (Acetaminophen 325 Mg Tablet) 650 mg PO Q6H PRN PRN Reason: Pain, Mild (Pain Scale 1-3) Last Admin: 06/19/21 03:16 Dose: 650 mg Documented by: YAMILEX Ascorbic Acid (Ascorbic Acid 500 Mg Tablet) 1,000 mg PO DAILY [facility] Last Admin: 06/19/21 09:05 Dose: 1,000 mg Documented by: MOHIT Dexamethasone Sodium Phosphate (Dexamethasone Sod Phosphate 4 Mg/Ml Vial) 6 mg IVPUSH DAILY [facility] Last Admin: 06/19/21 09:03 Dose: 6 mg Documented by: MOHIT Dextrose (Dextrose 50 % 25 Gm/50 Ml Vial) 25 gm IVPUSH Q15M PRN; Protocol PRN Reason: per Hypoglycemia Standing Ord. Docusate Sodium (Docusate Sodium 100 Mg Capsule) 100 mg PO DAILY PRN PRN Reason: Constipation Enoxaparin Sodium (Enoxaparin Sodium 40 Mg/0.4 Ml Syringe) 40 mg SUBCUT Q24H [facility] Last Admin: 06/18/21 17:31 Dose: 40 mg Documented by: JOHN Folic Acid (Folic Acid 1 Mg Tablet) 1 mg PO DAILY [facility] Last Admin: 06/19/21 09:04 Dose: 1 mg Documented by: MOHIT Glucose (Glucose Gel 15 Gm Gel..Gram.) 15 gm PO Q15M PRN; Protocol PRN Reason: per Hypoglycemia Standing Ord. Hydroxyzine HCl (Hydroxyzine Hcl 50 Mg Tablet) 100 mg PO BEDTIME PRN PRN Reason: Anxiety Last Admin: 06/18/21 21:11 Dose: 100 mg Documented by: YAMILEX Remdesivir 100 mg/ Sodium (Chloride) 230 mls @ 115 mls/hr IV Q24H [facility] Stop: 06/19/21 15:14 Insulin Human Lispro (Insulin Lispro 100 Unit/Ml 3 Ml Vial) 0 unit SUBCUT QIDACHS [facility]; Protocol Last Admin: 06/19/21 07:50 Dose: Not Given Documented by: MOHIT Non-Admin Reason: No Insulin Coverage Lisinopril (Lisinopril 5 Mg Tablet) 5 mg PO DAILY [facility]; Protocol Last Admin: 06/19/21 09:04 Dose: 5 mg Documented by: MOHIT Melatonin (Melatonin 3 Mg Tablet) 3 mg PO BEDTIME PRN PRN Reason: Insomnia Last Admin: 06/16/21 21:26 Dose: 3 mg Documented by: QUINN Mirtazapine (Mirtazapine 30 Mg Tablet) 30 mg PO BEDTIME [facility] Last Admin: 06/18/21 21:11 Dose: 30 mg Documented by: YAMILEX Morphine Sulfate (Morphine Sulfate 2 Mg/Ml Cartridge) 2 mg IVPUSH Q4H PRN; Protocol PRN Reason: work of breathing Last Admin: 06/18/21 02:07 Dose: 2 mg Documented by: YAMILEX Omeprazole (Omeprazole 20 Mg Capsule.) 20 mg PO DAILY@0630 [facility] Last Admin: 06/19/21 05:47 Dose: 20 mg Documented by: YAMILEX Ondansetron HCl (Ondansetron Hcl 4 Mg/2 Ml Vial) 4 mg IVPUSH Q8H PRN PRN Reason: Nausea and Vomiting Paroxetine HCl (Paroxetine Hcl 40 Mg Tablet) 40 mg PO DAILY [facility] Last Admin: 06/19/21 09:04 Dose: 40 mg Documented by: MOHIT Sodium Chloride (0.9 % Sodium Chloride Flush 3 Ml Syringe) 3 ml IVFLUSH QSHIFT [facility] Last Admin: 06/19/21 09:04 Dose: 3 ml Documented by: MOHIT Sucralfate (Sucralfate 1 Gm Tablet) 1 gm PO BID [facility] Last Admin: 06/19/21 09:05 Dose: 1 gm Documented by: MOHIT Vitamin D (Cholecalciferol (Vitamin D3) 25 Mcg Tablet) 50 mcg PO DAILY [facility] Last Admin: 06/19/21 09:05 Dose: 50 mcg Documented by: MOHIT Labs CBC & Chem 7: 06/18/21 06:28 06/18/21 06:28 Labs: Laboratory Results - last 24 hr 06/18/21 06/18/21 06/18/21 11:53 16:26 20:35 POC Glucose 189 H 263 H 221 H 06/19/21 06/19/21 07:39 11:27 POC Glucose 130 H 176 H Assessment and Plan (1) Pneumonia due to COVID-19 virus: Status: Acute Assessment and Plan: 60-year-old male with history of Crohn's disease on Stelara, prednisone, methotrexate who presents to the emergency department with shortness of breath found to have hypoxia and COVID-19 positive. Vaccinated with Pfizer x2. ?Acute respiratory failure with hypoxia secondary to COVID-19 pneumonia ?immune compromised secondary to underlying inflammatory bowel disease on stalera ?vaccinated x2, no booster ?elevated inflammatory markers ?High flow 100% with NRB ?Continue IV Decadron ?Remdesivir started by Infectious Disease Elevated lactic acid Secondary to hypoxia, not sepsis mood Continue Remeron, Paxil chronic pain Continue tapentadol history of inflammatory bowel disease Hold? Stelara unclear patient still takes methotrexate or prednisone HTN continue lisinopril Reports that he does not want intubation DVT prophylaxis -Lovenox Code status -full code, Reports that he does not want intubation Attending-Dr. Hernandez Quality Stroke Does the patient have a stroke diagnosis?: No VTE Prior VTE?: No VTE Risk Level:: Medical - moderate - high VTE Device Contraindication: N/A - Device Ordered VTE Drug Contraindication: N/A - Med Ordered
[2021-06-19] MEDS: Insulin Lispro 100 UNIT/ML 3 ML VIAL SUBCUT ×2 (12:16→16:44)
--- NOTE | 2021-06-19 12:54 | P.CNID_ITS ---
History of Present Illness Data of Consult Service Date: 06/16/21 Requesting physician: Meliza St Primary Care Provider: MD ALLI Ramirez Reason for consult: shortness of breath He has had shortness of breath and cough for 11 days He is now on HFNC He is on Remdesivir He has ulcerative colitis Review of Systems Verdana 4l Review of Systems: Yes all other systems are reviewed and Verdana 4d are negative [facility] Past Medical History Medical History (Updated 07/01/21 @ 11:58 by Kvng Felix MD) Acute promyelocytic leukemia Anxiety Asthma Chronic cholecystitis Chronic idiopathic constipation Colitis Crohn disease Depression Diabetes 1.5, managed as type 1 Diarrhea Elevated serum glutamic pyruvic transaminase (SGPT) level H/O flexible sigmoidoscopy Hypertension Kidney disease Left sided abdominal pain Morbid obesity Renal stones 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) Family History Family history: reviewed and not pertinent Surgical History Surgical History H/O lithotripsy H/O rectal sphincterotomy History of cholecystectomy History of colonoscopy History of hemorrhoidectomy Social History Social History Household Members: Family Housing: Apartment Do you presently have visiting nurse or other home services: No Alcohol intake: never Patient Tobacco Use Status: Never used Tobacco e-Cigarette/Vaping Use: Never Used Second Hand Smoke Exposure: No Advance Directives Date on File: 04/04/21 service: No Current occupational status: disabled Meds Allergies Allergy/AdvReac Type Severity Reaction Status Date / Time lorazepam [From Ativan] AdvReac Severe AGITATION Verified 06/20/21 00:19 ? EDEMA none Allergy Unknown Unknown Uncoded 04/02/21 16:05 Active Medications: Current Medications Acetaminophen (Acetaminophen 325 Mg Tablet) 650 mg PO Q6H PRN PRN Reason: Pain, Mild (Pain Scale 1-3) Last Admin: 06/19/21 03:16 Dose: 650 mg Documented by: Ascorbic Acid (Ascorbic Acid 500 Mg Tablet) 1,000 mg PO DAILY [facility] Last Admin: 06/19/21 09:05 Dose: 1,000 mg Documented by: Dexamethasone Sodium Phosphate (Dexamethasone Sod Phosphate 4 Mg/Ml Vial) 6 mg IVPUSH DAILY [facility] Last Admin: 06/19/21 09:03 Dose: 6 mg Documented by: Dextrose (Dextrose 50 % 25 Gm/50 Ml Vial) 25 gm IVPUSH Q15M PRN; Protocol PRN Reason: per Hypoglycemia Standing Ord. Docusate Sodium (Docusate Sodium 100 Mg Capsule) 100 mg PO DAILY PRN PRN Reason: Constipation Enoxaparin Sodium (Enoxaparin Sodium 40 Mg/0.4 Ml Syringe) 40 mg SUBCUT Q24H [facility] Last Admin: 06/18/21 17:31 Dose: 40 mg Documented by: Folic Acid (Folic Acid 1 Mg Tablet) 1 mg PO DAILY [facility] Last Admin: 06/19/21 09:04 Dose: 1 mg Documented by: Glucose (Glucose Gel 15 Gm Gel..Gram.) 15 gm PO Q15M PRN; Protocol PRN Reason: per Hypoglycemia Standing Ord. Hydroxyzine HCl (Hydroxyzine Hcl 50 Mg Tablet) 100 mg PO BEDTIME PRN PRN Reason: Anxiety Last Admin: 06/18/21 21:11 Dose: 100 mg Documented by: Remdesivir 100 mg/ Sodium (Chloride) 230 mls @ 115 mls/hr IV Q24H [facility] Stop: 06/19/21 15:14 Insulin Human Lispro (Insulin Lispro 100 Unit/Ml 3 Ml Vial) 0 unit SUBCUT QIDACHS [facility]; Protocol Last Admin: 06/19/21 12:16 Dose: 2 unit Documented by: Lisinopril (Lisinopril 5 Mg Tablet) 5 mg PO DAILY [facility]; Protocol Last Admin: 06/19/21 09:04 Dose: 5 mg Documented by: Melatonin (Melatonin 3 Mg Tablet) 3 mg PO BEDTIME PRN PRN Reason: Insomnia Last Admin: 06/16/21 21:26 Dose: 3 mg Documented by: Mirtazapine (Mirtazapine 30 Mg Tablet) 30 mg PO BEDTIME [facility] Last Admin: 06/18/21 21:11 Dose: 30 mg Documented by: Morphine Sulfate (Morphine Sulfate 2 Mg/Ml Cartridge) 2 mg IVPUSH Q4H PRN; Protocol PRN Reason: work of breathing Last Admin: 06/18/21 02:07 Dose: 2 mg Documented by: Omeprazole (Omeprazole 20 Mg Capsule.) 20 mg PO DAILY@0630 [facility] Last Admin: 06/19/21 05:47 Dose: 20 mg Documented by: Ondansetron HCl (Ondansetron Hcl 4 Mg/2 Ml Vial) 4 mg IVPUSH Q8H PRN PRN Reason: Nausea and Vomiting Paroxetine HCl (Paroxetine Hcl 40 Mg Tablet) 40 mg PO DAILY [facility] Last Admin: 06/19/21 09:04 Dose: 40 mg Documented by: Sodium Chloride (0.9 % Sodium Chloride Flush 3 Ml Syringe) 3 ml IVFLUSH QSHIFT [facility] Last Admin: 06/19/21 09:04 Dose: 3 ml Documented by: Sucralfate (Sucralfate 1 Gm Tablet) 1 gm PO BID [facility] Last Admin: 06/19/21 09:05 Dose: 1 gm Documented by: Vitamin D (Cholecalciferol (Vitamin D3) 25 Mcg Tablet) 50 mcg PO DAILY [facility] Last Admin: 06/19/21 09:05 Dose: 50 mcg Documented by: Home Medications Medication Instructions Recorded Confirmed Last Taken Type glyburide 5 mg 5 mg PO BID 03/22/20 06/15/21 05/14/21 History tablet lisinopril 5 mg 5 mg PO DAILY 03/22/20 06/15/21 05/14/21 History tablet mirtazapine 30 30 mg PO 03/22/20 06/15/21 05/14/21 History mg tablet BEDTIME folic acid 1 mg 1 mg PO DAILY 02/14/21 06/15/21 05/14/21 History tablet melatonin 5 mg 1 tab PO 02/14/21 06/15/21 05/14/21 History tablet BEDTIME PRN paroxetine HCl 40 mg PO DAILY 02/14/21 06/15/21 06/01/21 09:00 History 40 mg tablet hydroxyzine 100 mg PO 04/02/21 06/15/21 05/14/21 History pamoate 50 mg BEDTIME PRN capsule ustekinumab 90 90 mg SUBCUT 04/02/21 06/15/21 05/13/21 History mg/mL Q8W subcutaneous syringe (Stelara) methotrexate 25 mg PO Q7D 05/15/21 06/15/21 05/08/21 History sodium 2.5 mg tablet prednisone 10 4 tab PO DAILY 06/02/21 06/15/21 Unknown History mg tablet doxycycline 1 tab PO BID 06/15/21 06/15/21 Unknown History monohydrate 100 mg tablet Physical Exam Verdana 4l Vital Signs: Verdana 4d Verdana 4d Vital Signs: Verdana 4d Verdana 4Bd Last Vital Signs Verdana 4d [employer] New 4d [employer]st New 4d Temp 97.7 F 06/19/21 11:25 [employer] Estate Financial [employer]st New 4d Pulse 110 H 06/19/21 11:25 [employer] Estate Financial Analyst New 4d Resp 19 06/19/21 11:25 BP 139/79 06/19/21 11:25 Pulse Ox 93 06/19/21 11:25 Oxygen Flow Rate 10 06/15/21 00:21 BMI result Body Mass Index 31.7 Const: General: cooperative Limitations: no limitations HENMT: Mouth: Normal oral and palatal mucosa present Resp: Effort & Inspection: normal respiratory effort Cardio: Rate: regular rate Rhythm: regular rhythm GI: Palpation (GI): nontender Results Labs CBC & Chem 7: 07/07/21 05:41 07/07/21 05:41 Microbiology Microbiology Results: Microbiology 06/15/21 00:51 Blood - Venous Blood Culture - Preliminary No growth after 48 hours. 06/15/21 00:50 Blood - Venous Blood Culture - Preliminary No growth after 48 hours. Assessment and Plan (1) Anemia: Status: Acute (2) Pneumonia due to COVID-19 virus: Status: Acute He has severe immunosuppression due to IBD and is on Stelara He has oxygen demand Plan Would give Dexamethasone He has immune suppression of severity so baricitinib would not offer much and may have risk of side effect
[2021-06-19] MEDS: Remdesivir 100 MG in 0.9 % Sodium Chloride 230 ML 115 MG IV (13:34)
[2021-06-19] MEDS: Enoxaparin Sodium 40 MG/0.4 ML SYRINGE SUBCUT (16:02)
[2021-06-19 16:05] LABS: Glucose, Whole Blood 269 mg/dL (60-115)
--- NOTE | 2021-06-19 18:24 | PC.NURSE ---
at 181 the staff watching the camera ran into room 459, she stated she had seen him sniffing something from aluminum foil. he had the foil on his bed with his back turned to the camera. he had some powder on his nose. Pilot Manager and security called. His room was searched at 1830 by security found white powder on him he stated it was cocaine and was brought in by his friend when he dropped him some food. He is not allowed any deliveries. doctor notified.
[2021-06-19] MEDS: Mirtazapine 30 MG TABLET PO (21:20)
[2021-06-19] MEDS: LORazepam 2 MG/ML VIAL IVPUSH (21:45)
[2021-06-19] MEDS: Morphine Sulfate 2 MG/ML CARTRIDGE IVPUSH (22:15)
--- NOTE | 2021-06-19 22:24 | PC.NURSE ---
Patient was agitated, he said that he wanted to leave the hospital and go home at 21:00. He said he didn't want to stay over the night,even after continued persuasion and informing him of health consequences. Nurse ride assembly supervisor and the doctor were notified, who came to the scene and talk to the patient concerning the consequences of leaving AMA. At 21:45, the patient was given 2 mg of Ativan. He still was unconvinced to staying at the hospital. He was noncompliant of his oxygen nonrebreather mask and kept removing. At 22:06, the patient was found laying in his bed slightly responsive, with no oxygen on, he had removed both high flow and nonrebreather. He was satting at low 80s, rapid response was called to the scene, the doctor and the nurse ride assembly supervisor were present. The patient was taken to the ICU at 22: 20.
[2021-06-19] MEDS: flumazeniL 0.5 MG/5 ML VIAL 0.2 MG IVPUSH (22:27)
[2021-06-19] MEDS: propofoL 200 MG/20 ML VIAL 50 MG IVPUSH (22:30)
[2021-06-19] MEDS: Etomidate 20 MG/10 ML VIAL IVPUSH (22:31)
[2021-06-19] MEDS: Succinylcholine Chloride 200 MG/10 ML VIAL 100 MG IVPUSH (22:33)
[2021-06-19] MEDS: Metoprolol Tartrate 5 MG/5 ML VIAL IVPUSH (22:44)
[2021-06-19] MEDS: propofoL 1,000 MG/100 ML VIAL 34.53 MG IVCONT (22:45)
--- NOTE | 2021-06-19 22:51 | P.EN_ITS ---
Event Note Date of Service: 06/19/21 Event Note: received a call from nursing electronic controls repairer supervisor to evaluate patient as he wants to leave AMA. On my exam patient was very agitated, sitting at the side of the bed, screaming, yelling, wanting to leave AMA. Patient was alert and oriented, reports that he is angry because he was searched and spoke to by security as well as having a camera in his room makes him very angry. Patient was so agitated that he would not listen to anything I had to say, he agreed to take medication to help him calm a little bit therefore 2 mg of Ativan IV were given. About 10 minutes later a rapid response was called on the patient because he was found hypoxic with oxygen removed by him. He was found to be satting in the 70s, according to a report by the bedside nurse he was purple by the time they found him. At the rapid response patient was initially mildly responsive but he slowly came about once oxygen was placed on him, but became even more agitated, confused, combative, not oriented and not compliant with oxygen and kept moving his oxygen non-rebreather mask. A decision was made to intubate the patient, therefore ICU was called and the patient was transferred to the ICU for intubation. patient most likely had a combination of hypoxic encephalopathy as well as of allergy to Ativan because during intubation patient had a very difficult airway with report of swollen airway. patient is now intubated and in the ICU. Received 2 mg of IV Ativan and 2 mg of morphine IV by me prior to being sent to the ICU for intubation.
[2021-06-19] MEDS: fentaNYL citrate/NS 1,000 MCG/100 ML PLAST..BAG 20 MCG IVCONT (22:55)
[2021-06-19 23:14] LABS: ABG Base Excess 1.4 mmol/L; ABG HCO3 27 mmol/L (22-26); ABG pCO2 46 mmHg (32-45); ABG pH 7.36 (7.35-7.45); ABG pO2 181 mmHg (83-108)
[2021-06-20] VITALS (31 sets, daily range): BP systolic 96–145; BP diastolic 53–78; PULSE 57–91; RESP 18–22; TEMP 35–37.4; O2SAT 89–100; BMI 31.7
--- NOTE | 2021-06-20 | ECG_ITS ---
Test Reason : pulm edema Blood Pressure : / mmHG Vent. Rate : 063 BPM Atrial Rate : 063 BPM P-R Int : 118 ms QRS Dur : 126 ms QT Int : 448 ms P-R-T Axes : 055 -01 030 degrees QTc Int : 458 ms Artifact in tracing Normal sinus rhythm Incomplete right bundle branch block Abnormal ECG When compared with ECG of 15-JUN-2021 15:49, Premature atrial complexes are no longer Present Vent. rate has decreased BY 61 BPM Referred By: Yifan Vazquez Electronically Signed By:RUFINA RODRIGUEZ
--- NOTE | 2021-06-20 00:21 | P.CONCC_ITS ---
Documented by User: SULLY Crow 06/20/21 02:19 History of Present Illness Data of Consult Service Date: 06/19/21 Requesting physician: Darnell Cheng Primary Care Provider: Luke Kamara MD HPI Reason for consult: Hypoxic Resp Failure HPI:? 60-year-old patient with underlying history of ulcerative colitis currently on treatment with methotrexate and Stelara, diabetes, acute promyelocytic leukemia, anxiety, asthma, constipation, Crohn's disease, depression, hypertension, thalamic pain syndrome among others had initially been admitted to the hospital on the 7th of this year with complaints of shortness of breath patient had been hypoxic and placed on high-flow oxygen who tested positive for COVID. ?Patient was seen by infectious disease, given his immunosuppressed state steroids were started along with vitamin-C and vitamin- D.? The x-ray does reveal bilateral infiltrates concerning from viral pneumonia, he had a CT angiogram which is negative for PE.? Patient appeared to be anemic, he has been receiving Lovenox for DVT prophylaxis but his H&H has been trending down.? He has a positive Guaiac stool for occult blood. While on the floor he had been on high-flow O2 and doing well until this afternoon. Patient was emergently transferred from the floor to the ICU for crash airway intubation as it was reported that the patient had been doing okay until he got a food delivery from outside around 6:00 a.m. in the evening, on the cameras, he was noted to be facing the other way and holding an aluminum foil paper, when personnel went into the room, they noticed a white powder on the patient's nose, subsequently he was search by hospital security and the patient got really upset about these, repeat his oxygen of, the doctor went to see the patient, patient did not want to talk to her and was very agitated and upset.? Patient has been threatening to leave AMA.? Patient was given 2 mg of Ativan IV to try to calm him and subsequently the patient had become more agitated more upset until he was found minimally responsive, purple with an O2 sat of 77%, even though high-flow O2 was placed and of O2 sat came up to low 80s, the patient continued to be very agitated kicking, screaming and appear to be in respiratory distress. Patient was held down by hospital personnel, was brought down into the ICU and immediately sedated, RSI protocol followed, oxygenated with an Ambu bagged and subsequently paralyzed and intubated successfully, please see separate procedure note for details. ROS:? UNABLE TO OBTAIN PATIENT INTUBATED Past Medical History:? As above in addition to Chronic constipation Elevated LFTs Past Surgical History:? Sigmoidoscopy Lithotripsy Rectal a sphincter rectum E Cholecystectomy Hemorrhoidectomy Colonoscopy Family history:? Unknown Social History: ?Per records the patient lives in apartment, does not smoke, does not drink.? His prior drug consumption is no documented. CODE STATUS:? Full code Allergies:? ATIVAN (? Agitation) Home Medications:? See Med Rec PHYSICAL EXAM: ?175/90, 140, 28, 82% on room air prior to intubation.? Post intubation patient was placed on a vent with the following VENT SETTINGS : ?AC 18/450/10/60% ? General:? Is significant respiratory distress agitated, with upper wheezing and mild stridor ? Skin:? Intact, no lesions, edema, erythema, clubbing or cyanosis.? No ulcers. ? HEENT:? Head is normocephalic, atraumatic, pupils pinpointed and nonreactive.? Neck is thick, no JVD or lymphadenopathy, no masses. ? Cardiac:? Clear S1-S2, tachycardic 144 beats per minute ? Pulmonary:? Diminished breath sounds bilaterally with expiratory wheezing and minor stridor in the upper airway ? Abdomen:? Protuberant, positive bowel sounds in all 4 quadrants.? Soft, large.? Epigastric large hernia noted ? ? Musculoskeletal:? No bony abnormalities, on passive range of motion at the major joints there is no cogwheeling or crepitus, no calf asymmetry or edema of the legs.? ? Neurologic:? As above otherwise unable to assess ? Vascular:? 2+ pulses upper and lower extremities distally. SIGNIFICANT LABORATORY DATA: ?White count 13.3, hemoglobin 8.4, hematocrit 20.3, platelet count 272. ?Post intubation ABG shows a pH of 7.36, pCO2 46, PO2 141, HC03 27, base excess 1.4. Sodium 139, potassium 4.0, chloride 101, carbon dioxide 28, BUN 29, creatinine 0 point a 6, glucose 269, calcium 8.4. REVIEW OF IMAGES: CHEST CTA? IMPRESSION: No pulmonary embolism. Imaging features of COVID-19 pneumonia present. Other processes such as influenza pneumonia or organizing pneumonia can cause a similar imaging appearance, as can certain drug toxicities and connective tissue diseases. Trace bilateral pleural effusions. Age-indeterminate wedge compression deformities of the T12 and T10 vertebral bodies with 75% height loss new from 2018.? VTE: negative CXR FINDINGS: Diffuse bilateral patchy airspace opacities. No pleural effusion or pneumothorax. Normal heart size and pulmonary vascularity. No acute or suspicious osseous abnormalities. CXR POST INTUBATION FINDINGS/IMPRESSION: Right internal jugular central venous catheter terminates in the mid SVC. Endotracheal tube terminates 5.5 cm above the caden. Enteric tube courses below the diaphragm. ? No pneumothorax. Diffuse bilateral patchy and hazy airspace opacities redemonstrated, without appreciable change from the prior exam. No pleural effusion or pneumothorax. Stable cardiomediastinal silhouette. ? EKG REVIEW: ?EKG from June 15 reveal sinus tachycardia with PACs, question right-sided block, QTC 330, no comparison available. ASSESSMENT AND PLAN: 1. ACUTE HYPOXIC RESPIRATORY FAILURE 2. COVID-19 INFECTION AND VIRAL PNEUMONIA 3. SUSPECTED COCAINE ABUSE 4. METABOLIC/CHEMICAL ENCEPHALOPATHY 5. COCAINE ABUSE 6. ACUTE DELIRIUM LIKELY DUE TO COCAINE CONSUMPTION VERSUS OR WORSENED BY ATIVAN 7. MORBID OBESITY 8. HISTORY OF DIABETES MELLITUS TYPE 2 9. REACTIVE LEUKOCYTOSIS 10. HISTORY OF CONGESTIVE HEART FAILURE WITHOUT EVIDENCE OF ACUTE EXACERBATION 11. NORMOCYTIC ANEMIA WITH POSITIVE STOOL GUAIAC IN NEED OF FURTHER EVALUATION 12. Pickwickian Syndrome As above mentioned the patient was emergently transferred into the ICU, iris I protocol followed and emergent intubation tube placed successfully, although the inner airway appeared swollen and narrow, I wonder if he had some kind of reaction to Ativan or the cocaine; will continue with current COVID treatment including vitamin-C, vitamin-D, steroids. ?Basic laboratories an ABG obtained.? The central line will be placed.? Urine tox screen, patient will be sedated with propofol fentanyl. ?Will add levophed ?for the patient did become hypotensive after sedation. Will list Ativan as an allergy, continue with insulin sliding scale. GI PROPHYLAXIS: ?ORAL OMEPRAZOLE DVT PROPHYLAXIS:? WILL DISCONTINUE LOVENOX DUE TO WORSENING ANEMIA AND OCCULT BLOOD STOOL POSITIVE RESULTS, WILL PLACE HIM ON PNEUMATIC STOCKINGS ? Critical care time used for critical evaluation of this patient, diagnosis, treatment and coordination of care, review her records and documentation TOTAL CRITICAL CARE TIME 120 MIN Patient's care was discussed in detail with Dr. Parker.? He is aware of all the above as well as the plan of care for this patient. ? [facility] Past Medical History Medical History (Updated 06/22/21 @ 16:27 by Yifan Vazquez MD) Acute promyelocytic leukemia Anxiety Asthma Chronic cholecystitis Chronic idiopathic constipation Colitis Crohn disease Depression Diabetes 1.5, managed as type 1 Diarrhea Elevated serum glutamic pyruvic transaminase (SGPT) level H/O flexible sigmoidoscopy Hypertension Kidney disease Left sided abdominal pain Morbid obesity Renal stones 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) Family History Family history: reviewed and not pertinent Surgical History Surgical History H/O lithotripsy H/O rectal sphincterotomy History of cholecystectomy History of colonoscopy History of hemorrhoidectomy Social History Social History Household Members: Family Housing: Apartment Do you presently have visiting nurse or other home services: No Alcohol intake: never Patient Tobacco Use Status: Never used Tobacco e-Cigarette/Vaping Use: Never Used Second Hand Smoke Exposure: No Advance Directives Date on File: 04/04/21 service: No Current occupational status: disabled Meds Allergies Allergy/AdvReac Type Severity Reaction Status Date / Time lorazepam [From Ativan] AdvReac Severe AGITATION Verified 06/20/21 00:19 ? EDEMA none Allergy Unknown Unknown Uncoded 04/02/21 16:05 Active Medications: Current Medications Acetaminophen (Acetaminophen 325 Mg Tablet) 650 mg PO Q6H PRN PRN Reason: Pain, Mild (Pain Scale 1-3) Last Admin: 06/19/21 03:16 Dose: 650 mg Documented by: Ascorbic Acid (Ascorbic Acid 500 Mg Tablet) 1,000 mg PO DAILY LADONNA Last Admin: 06/19/21 09:05 Dose: 1,000 mg Documented by: Dexamethasone Sodium Phosphate (Dexamethasone Sod Phosphate 4 Mg/Ml Vial) 6 mg IVPUSH DAILY LADONNA Last Admin: 06/19/21 09:03 Dose: 6 mg Documented by: Dextrose (Dextrose 50 % 25 Gm/50 Ml Vial) 25 gm IVPUSH Q15M PRN; Protocol PRN Reason: per Hypoglycemia Standing Ord. Docusate Sodium (Docusate Sodium 100 Mg Capsule) 100 mg PO DAILY PRN PRN Reason: Constipation Enoxaparin Sodium (Enoxaparin Sodium 40 Mg/0.4 Ml Syringe) 40 mg SUBCUT Q24H COUNTS INCLUDE 234 BEDS AT THE [facility] Last Admin: 06/19/21 16:02 Dose: 40 mg Documented by: Etomidate (Etomidate 20 Mg/10 Ml Vial) 20 mg IVPUSH ONCE ONE Stop: 06/20/21 00:16 Folic Acid (Folic Acid 1 Mg Tablet) 1 mg PO DAILY COUNTS INCLUDE 234 BEDS AT THE [facility] Last Admin: 06/19/21 09:04 Dose: 1 mg Documented by: Glucose (Glucose Gel 15 Gm Gel..Gram.) 15 gm PO Q15M PRN; Protocol PRN Reason: per Hypoglycemia Standing Ord. Hydroxyzine HCl (Hydroxyzine Hcl 50 Mg Tablet) 100 mg PO BEDTIME PRN PRN Reason: Anxiety Last Admin: 06/18/21 21:11 Dose: 100 mg Documented by: Propofol (Diprivan) 1,000 mg in 100 mls @ 0 mls/hr IVCONT .Q0M LADONNA; Protocol Fentanyl (Sublimaze/Ns) 1,000 mcg in 100 mls @ 0 mls/hr IVCONT .Q0M LADONNA; Protocol Fentanyl (Sublimaze/Ns) 1,000 mcg in 100 mls @ 0 mls/hr IVCONT .Q0M LADONNA; Protocol Norepinephrine Bitartrate (Levophed) 8 mg in 250 mls @ 0 mls/hr IVCONT .Q0M LADONNA; Protocol Insulin Human Lispro (Insulin Lispro 100 Unit/Ml 3 Ml Vial) 0 unit SUBCUT QIDACHS COUNTS INCLUDE 234 BEDS AT THE [facility]; Protocol Last Admin: 06/19/21 22:59 Dose: Not Given Documented by: Lisinopril (Lisinopril 5 Mg Tablet) 5 mg PO DAILY COUNTS INCLUDE 234 BEDS AT THE [facility]; Protocol Last Admin: 06/19/21 09:04 Dose: 5 mg Documented by: Melatonin (Melatonin 3 Mg Tablet) 3 mg PO BEDTIME PRN PRN Reason: Insomnia Last Admin: 06/16/21 21:26 Dose: 3 mg Documented by: Metoprolol Tartrate (Metoprolol Tartrate 5 Mg/5 Ml Vial) 5 mg IVPUSH ONCE ONE Stop: 06/20/21 00:15 Mirtazapine (Mirtazapine 30 Mg Tablet) 30 mg PO BEDTIME COUNTS INCLUDE 234 BEDS AT THE [facility] Last Admin: 06/19/21 21:20 Dose: 30 mg Documented by: Morphine Sulfate (Morphine Sulfate 2 Mg/Ml Cartridge) 2 mg IVPUSH Q4H PRN; Protocol PRN Reason: work of breathing Last Admin: 06/18/21 02:07 Dose: 2 mg Documented by: Naloxone HCl (Naloxone Hcl 0.4 Mg/Ml Vial) 0.2 mg IVPUSH Q2M PRN PRN Reason: Excessive sedation or RR < 8 Omeprazole (Omeprazole 20 Mg Capsule.Dr) 20 mg PO DAILY@0630 COUNTS INCLUDE 234 BEDS AT THE [facility] Last Admin: 06/19/21 05:47 Dose: 20 mg Documented by: Ondansetron HCl (Ondansetron Hcl 4 Mg/2 Ml Vial) 4 mg IVPUSH Q8H PRN PRN Reason: Nausea and Vomiting Paroxetine HCl (Paroxetine Hcl 40 Mg Tablet) 40 mg PO DAILY COUNTS INCLUDE 234 BEDS AT THE [facility] Last Admin: 06/19/21 09:04 Dose: 40 mg Documented by: Propofol (Propofol 200 Mg/20 Ml Vial) 50 mg IVPUSH ONCE ONE Stop: 06/20/21 00:18 Sodium Chloride (0.9 % Sodium Chloride Flush 3 Ml Syringe) 3 ml IVFLUSH QSHIFT COUNTS INCLUDE 234 BEDS AT THE [facility] Last Admin: 06/19/21 16:02 Dose: 3 ml Documented by: Succinylcholine Chloride (Succinylcholine Chloride 200 Mg/10 Ml Vial) 100 mg IVPUSH ONCE ONE Stop: 06/20/21 00:15 Sucralfate (Sucralfate 1 Gm Tablet) 1 gm PO BID COUNTS INCLUDE 234 BEDS AT THE [facility] Last Admin: 06/19/21 21:20 Dose: 1 gm Documented by: Vitamin D (Cholecalciferol (Vitamin D3) 25 Mcg Tablet) 50 mcg PO DAILY COUNTS INCLUDE 234 BEDS AT THE [facility] Last Admin: 06/19/21 09:05 Dose: 50 mcg Documented by: Home Medications Medication Instructions Recorded Confirmed Last Taken Type glyburide 5 mg tablet 5 mg PO BID 03/22/20 06/15/21 05/14/21 History lisinopril 5 mg tablet 5 mg PO DAILY 03/22/20 06/15/21 05/14/21 History mirtazapine 30 mg tablet 30 mg PO BEDTIME 03/22/20 06/15/21 05/14/21 History folic acid 1 mg tablet 1 mg PO DAILY 02/14/21 06/15/21 05/14/21 History melatonin 5 mg tablet 1 tab PO BEDTIME PRN 02/14/21 06/15/21 05/14/21 History paroxetine HCl 40 mg tablet 40 mg PO DAILY 02/14/21 06/15/21 06/01/21 09:00 History hydroxyzine pamoate 50 mg capsule 100 mg PO BEDTIME PRN 04/02/21 06/15/21 05/14/21 History ustekinumab 90 mg/mL subcutaneous 90 mg SUBCUT Q8W 04/02/21 06/15/21 05/13/21 History syringe (Stelara) methotrexate sodium 2.5 mg tablet 25 mg PO Q7D 05/15/21 06/15/21 05/08/21 History prednisone 10 mg tablet 4 tab PO DAILY 06/02/21 06/15/21 Unknown History doxycycline monohydrate 100 mg 1 tab PO BID 06/15/21 06/15/21 Unknown History tablet Physical Exam Vital Signs: Vital Signs: Last Vital Signs Temp 98.8 F 06/20/21 00:00 Pulse 86 06/20/21 00:00 Resp 19 06/20/21 00:00 BP 113/66 06/20/21 00:00 Pulse Ox 92 06/20/21 00:00 Oxygen Flow Rate 10 06/15/21 00:21 BMI result Body Mass Index 31.7 Results Labs CBC & Chem 7: 06/27/21 05:15 06/27/21 05:15 Microbiology Microbiology Results: Microbiology 06/15/21 00:51 Blood - Venous Blood Culture - Preliminary No growth after 48 hours. 06/15/21 00:50 Blood - Venous Blood Culture - Preliminary No growth after 48 hours. Documented by User: Yifan Vazquez MD 06/27/21 09:49 PMFSH Past Medical History Medical History (Updated 06/22/21 @ 16:27 by Yifan Vazquez MD) Acute promyelocytic leukemia Anxiety Asthma Chronic cholecystitis Chronic idiopathic constipation Colitis Crohn disease Depression Diabetes 1.5, managed as type 1 Diarrhea Elevated serum glutamic pyruvic transaminase (SGPT) level H/O flexible sigmoidoscopy Hypertension Kidney disease Left sided abdominal pain Morbid obesity Renal stones 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) Surgical History Surgical History H/O lithotripsy H/O rectal sphincterotomy History of cholecystectomy History of colonoscopy History of hemorrhoidectomy Social History Social History Household Members: Family Housing: Apartment Do you presently have visiting nurse or other home services: No Alcohol intake: never Patient Tobacco Use Status: Never used Tobacco e-Cigarette/Vaping Use: Never Used Second Hand Smoke Exposure: No Advance Directives Date on File: 04/04/21 service: No Current occupational status: disabled Meds Allergies Allergy/AdvReac Type Severity Reaction Status Date / Time lorazepam [From Ativan] AdvReac Severe AGITATION Verified 06/20/21 00:19 ? EDEMA none Allergy Unknown Unknown Uncoded 04/02/21 16:05 Home Medications Medication Instructions Recorded Confirmed Last Taken Type glyburide 5 mg tablet 5 mg PO BID 03/22/20 06/15/21 05/14/21 History lisinopril 5 mg tablet 5 mg PO DAILY 03/22/20 06/15/21 05/14/21 History mirtazapine 30 mg tablet 30 mg PO BEDTIME 03/22/20 06/15/21 05/14/21 History folic acid 1 mg tablet 1 mg PO DAILY 02/14/21 06/15/21 05/14/21 History melatonin 5 mg tablet 1 tab PO BEDTIME PRN 02/14/21 06/15/21 05/14/21 History paroxetine HCl 40 mg tablet 40 mg PO DAILY 02/14/21 06/15/21 06/01/21 09:00 History hydroxyzine pamoate 50 mg capsule 100 mg PO BEDTIME PRN 04/02/21 06/15/21 05/14/21 History ustekinumab 90 mg/mL subcutaneous 90 mg SUBCUT Q8W 04/02/21 06/15/21 05/13/21 History syringe (Stelara) methotrexate sodium 2.5 mg tablet 25 mg PO Q7D 05/15/21 06/15/21 05/08/21 Hi story prednisone 10 mg tablet 4 tab PO DAILY 06/02/21 06/15/21 Unknown History doxycycline monohydrate 100 mg 1 tab PO BID 06/15/21 06/15/21 Unknown History tablet Results Labs CBC & Chem 7: 06/27/21 05:15 06/27/21 05:15
--- NOTE | 2021-06-20 00:22 | W.PM.CCHP ---
Procedures Date of Service Date of Service: 06/19/21 <SULLY Crow Last Filed: 06/20/21 02:24> Intubation Intubation Comments: Given that the patient developed progressive respiratory fatigue and failure unable to maintain ariway and agitation RSI was followed,? patient was sedated and paralyzed with etomidate and succinylcholine although some propofol had to be given prior due to significant agitation,? ?This last had very little effect. Patient was them ventilated with the endobag and oxygenated up to 100%, the above-mentioned medications were used for sedation and paralysis.? Using the GlideScope, the close was identified and using a 4.0 Blade, an ETT tube 8 was inserted via direct vision in a nontraumatic way,? ?Although this was somewhat difficult and was achieved at the 3rd passage for the patient had very narrow airway and somewhat swollen inner airway.? Post intubation, breath sounds were equal and bilateral,? capnography show positive color change to yellow, SpO2 maintained.? The tube was secured at 24 cm at the upper lip. Patient tolerated the procedure well without complications.? Postop x-ray showed endotracheal tube approximately 5 cm above the caden, so I had them advanced the tube to 26 cm at the lip.? patient was then placed on a vent with the following settings 18, 450, 10, 80% FiO2 and subsequently titrated down to 60%.? Blood gas was obtained at the site. Case was discussed in detail with Dr. Parker.? He is aware of all the above as well as the plan of care for this patient. <SULLY Crow Last Filed: 06/20/21 02:24> Consent for Procedure: Emergent-no informed consent obtained <SULLY Crow Last Filed: 06/20/21 02:24> Time out performed: No <SULLY Crow Last Filed: 06/20/21 02:24> Sedative: etomidate <SULLY Crow Last Filed: 06/20/21 02:24> Mg given: 20 <SULLY Crow Last Filed: 06/20/21 02:24> Paralytic: succinylcholine <SULLY Crow Last Filed: 06/20/21 02:24> Mg given: 100 <SULLY Crow Last Filed: 06/20/21 02:24> Laryngoscope: fiber optic video scope <SULLY Crow Last Filed: 06/20/21 02:24> ET tube size: 8 <SULLY Crow Last Filed: 06/20/21 02:24> ET tube uncuffed: Yes <SULLY Crow Last Filed: 06/20/21 02:24> Tube secured depth (cm): 26 <SULLY Crow Last Filed: 06/20/21 02:24> Tube secured location: lips <SULLY Crow Last Filed: 06/20/21 02:24> Tube placement confirmation: visualized tube passing through cords, equal breath sounds bilaterally, no breath sounds over epigastrium and confirmation by capnometry <SULLY Crow Last Filed: 06/20/21 02:24> Patient tolerated procedure: well <SULLY Crow Last Filed: 06/20/21 02:24> Intubation complications: none <SULLY Crow Last Filed: 06/20/21 02:24>
--- NOTE | 2021-06-20 00:22 | W.PM.CCHP ---
Procedures Date of Service Date of Service: 06/19/21 <SULLY Crow Last Filed: 06/20/21 02:26> Central Line Placement A quick time-out was made for clarification and proper patient identification, patient was positioned, landmarks were identified, US used to locate a large compressible IJ. The right neck was widely prepped and draped in a full sterile fashion. Ultrasound was used to locate again the right IJ, the vein was cannulated on the 1st pass with an 18 gauge thin needle, dark nonpulsatile blood return was obtained. The wire was threaded, a small incision was made at its base and dilator inserted. A triple-lumen central venous catheter was advanced into the vein up to the hub without problems, wired was removed. Ports had good blood return and flushed x3. The catheter was secured with 3 sutures at 3 sites, a Biopatch and dry sterile dressing were applied. Post procedure chest x-ray showed the line to be in good position without pneumothorax. No bleeding or complications noted.: Consent for Procedure: Emergent-no informed consent obtained <SULLY Crow Last Filed: 06/20/21 02:26> Time out performed: Yes <SULLY Crow Last Filed: 06/20/21 02:26> Sterile Technique Used: Yes <SULLY Crow Last Filed: 06/20/21 02:26> Patient placed on monitor/pulse ox: Yes <SULLY Crow Last Filed: 06/20/21 02:26> MD prep: mask, gown and gloves <SULLY Crow Last Filed: 06/20/21 02:26> Central line prep: Chlorhexidine scrub and sterile drapes applied <SULLY Crow Last Filed: 06/20/21 02:26> Ultrasound used for placement: Yes <SULLY Crow Last Filed: 06/20/21 02:26> Central line lumen inserted: triple <SULLY Crow Last Filed: 06/20/21 02:26> Post procedure: sutured in place, good blood return, all ports aspirated, flushed, capped and sterile dressing applied <SULLY Crow Last Filed: 06/20/21 02:26> Post procedure x-ray: tip of catheter in good position and no pneumothorax seen <SULLY Crow - Last Filed: 06/20/21 02:26> Patient tolerated procedure: well <SULLY Crow - Last Filed: 06/20/21 02:26> Complications: none <SULLY Crow - Last Filed: 06/20/21 02:26>
[2021-06-20 00:39] LABS: Basophils Percent Auto 0.2 % (0-2); Hematocrit 28.3 % (42.0-52.0); Hemoglobin 8.4 g/dl (14.0-18.0); Imm Gran Abs Auto 0.07 X10*3/uL (0.00-0.03); Imm Gran Pct Auto 0.5 % (0.0-0.4); Lymphocytes Absolute Auto 0.3 X10*3/uL (1.2-4.9); Lymphocytes Percent Auto 2.3 % (20-40); MANUAL DIFF FLAG SCAN; Mean Corpuscular HGB Conc 29.7 g/dl (31.0-36.0); Mean Corpuscular Hemoglobin 24.6 pg (27.0-33.0); Mean Corpuscular Volume 82.7 fL (80.0-98.0); Mean Platelet Volume 9.9 fL (9.4-12.4); Monocytes Absolute Auto 0.4 X10*3/uL (0.1-1.2); Monocytes Percent Auto 3.2 % (2-11); Neutrophils Absolute Auto 12.5 x10*3/uL (2.0-8.3); Neutrophils Percent Auto 93.8 % (45-73); Platelet Count 272 X10*3/uL (160-400); Red Blood Count 3.42 X10*6/uL (4.60-5.80); Red Cell Distribution Width 17.2 % (11.0-16.0); SCAN SMEAR FLAG 1; White Blood Count 13.3 X10*3/uL (4.8-10.8)
[2021-06-20 00:47] LABS: SLIDE REVIEW VERIFIED
[2021-06-20 00:54] LABS: Anion Gap 14 (12-20); Blood Urea Nitrogen 29 mg/dL (9-16); Calcium 8.4 mg/dL (8.4-10.2); Carbon Dioxide 28 mmol/L (22-29); Chloride 101 mmol/L (96-108); Creatinine Clr Calc Pharmacy 121.8; Estimated Glomerular Filt Rate > 60; Glucose Fasting 257 mg/dL (60-99); Sodium 139 mmol/L (135-145)
[2021-06-20] MEDS: 0.9 % Sodium Chloride Flush 3 ML SYRINGE IVFLUSH ×3 (01:00→11:56)
[2021-06-20 01:24] LABS: Amphetamine Screen Urine Not Detected (Not Detect); Barbiturates, Urine Not Detected (Not Detect); Benzodiazepines Screen Urine Not Detected (Not Detect); Cannabinoid Screen Urine Not Detected (Not Detect); Cocaine Screen Urine POSITIVE (Not Detect); Fentanyl, urine POSITIVE (Not Detect); Opiate Screen Urine POSITIVE (Not Detect); Phencyclidine Screen Urine Not Detected (Not Detect)
[2021-06-20] MEDS: propofoL 1,000 MG/100 ML VIAL 27.63 MG IVCONT ×6 (03:10→23:37)
[2021-06-20] MEDS: fentaNYL citrate/NS 1,000 MCG/100 ML PLAST..BAG 15 MCG IVCONT (03:11)
--- NOTE | 2021-06-20 04:49 | PC.NURSE ---
Pt was called as an [facility]UMA[employer]PLIER at approximately 2200 from [facility]. Initial contact was on [facility] where patient was confused and combative and resistive to care. Pt was ripping off NC and high flow and pt became hypoxic and cyanotic. Question of drugs (cocaine) onboard after visitors this afternoon. He was not following commands and was flailing around in the stretcher. Pt continued to decompensate and the decision was made by the hospitalist and ICU PA to intubate. Pt was emergently transferred to ICU @ roughly 2230 where RSI completed. ETT is an 8 @ 26cm at the lip. Vent settings AC R-18, V450, 50% Peep 10. Pt is sedated on propofol at 40, Fentanyl at 125, and supported with levophed at 0.07 for hypotension. Neurologically, pt was confused and agitated prior to intubation. Unable to assess orientation but clearly did not understand situation. Pupils are perrl. LS are diminished bilaterally. Cardiac, pt does have some lower ext pitting edema. Pt is in NS with PACs in the 60's - 80s. BP is currently (0500) in the 110's with the levophed at 0.07. GI pt was incontinent of stool, BM at 2230. Abd is soft non-tender BS present. OG tube is in place. Gu- pt is incontinent of urine, Villa is placed and is outputting approximately 50mls an hour. Skin is intact except for a abrasion on the right lower lateral posterior. No drainage or odor. No pressure injuries present. Pt is sedated but was moving all 4 ext prior to sedation. Respiratory is involved in care.
[2021-06-20 05:43] LABS: VBG Base Excess 5.7 mmol/L; VBG HCO3 30 mmol/L (22-26); VBG pCO2 46 mmHg; VBG pH 7.42 (7.32-7.43); VBG pO2 53 mmHg
[2021-06-20 05:52] LABS: Basophils Percent Auto 0.1 % (0-2); Hematocrit 28.3 % (42.0-52.0); Hemoglobin 8.4 g/dl (14.0-18.0); Imm Gran Abs Auto 0.07 X10*3/uL (0.00-0.03); Imm Gran Pct Auto 0.6 % (0.0-0.4); Lymphocytes Absolute Auto 0.6 X10*3/uL (1.2-4.9); Lymphocytes Percent Auto 5.8 % (20-40); MANUAL DIFF FLAG SCAN; Mean Corpuscular HGB Conc 29.7 g/dl (31.0-36.0); Mean Corpuscular Hemoglobin 24.5 pg (27.0-33.0); Mean Corpuscular Volume 82.5 fL (80.0-98.0); Mean Platelet Volume 9.6 fL (9.4-12.4); Monocytes Absolute Auto 0.4 X10*3/uL (0.1-1.2); Monocytes Percent Auto 3.4 % (2-11); Neutrophils Absolute Auto 9.9 x10*3/uL (2.0-8.3); Neutrophils Percent Auto 90.1 % (45-73); Platelet Count 270 X10*3/uL (160-400); Red Blood Count 3.43 X10*6/uL (4.60-5.80); Red Cell Distribution Width 17.2 % (11.0-16.0); SCAN SMEAR FLAG 1
[2021-06-20] MEDS: Omeprazole 20 MG CAPSULE.DR PO (05:59)
[2021-06-20 06:08] LABS: Alanine Aminotransferase 14 U/L (0-40); Albumin Level 2.8 g/dL (3.5-5.0); Alkaline Phosphatase 96 U/L (39-117); Anion Gap 14 (12-20); Aspartate Amino Transferase 11 U/L (5-37); Bilirubin Total 0.5 mg/dL (0.0-1.0); Blood Urea Nitrogen 27 mg/dL (9-16); Calcium 8.7 mg/dL (8.4-10.2); Carbon Dioxide 29 mmol/L (22-29); Chloride 101 mmol/L (96-108); Creatinine Clr Calc Pharmacy 132.6; Estimated Glomerular Filt Rate > 60; Glucose Random 221 mg/dL (60-115); Lactate Dehydrogenase 422 U/L (118-273); Potassium 4.1 mmol/L (3.3-5.1); Sodium 140 mmol/L (135-145); Total Protein 5.4 g/dL (6.5-8.0)
[2021-06-20 06:31] LABS: Ferritin 462 ng/mL (20-250)
[2021-06-20 06:42] LABS: Venous Blood Gas Refer to POC result
--- NOTE | 2021-06-20 07:05 | P.PNCC_ITS ---
Subjective Subjective Date of Service: 06/20/21 Interval History: 60-year-old morbidly obese type 2 diabetic and hypertensive with history of CHF and underlying inflammatory bowel disease and chronic anemia and apparently treated on methotrexate and prednisone in addition so clearly immunosuppressed admitted with COVID-19 pneumonia and acute hypoxemic respiratory failure on noninvasive treatment and then decided to snort cocaine developed a delirium increasingly profound hypoxemia and required transfer to the ICU for intubation central line placement currently quiet on the ventilator on FiO2 of 100% Critical Care Time (minutes): 45 Physical Exam Vital Signs: Vital Signs: Last Vital Signs Temp 99.0 F 06/20/21 07:00 Pulse 71 06/20/21 07:00 Resp 18 06/20/21 07:00 BP 122/62 06/20/21 07:00 Pulse Ox 95 06/20/21 07:00 Oxygen Flow Rate 10 06/15/21 00:21 BMI result Body Mass Index 31.7 sedated and intubated but does spontaneously move extremities on both sides no neck vein distension and good bilateral carotid upstrokes and no gallops abdomen soft no again a megaly chest without adventitious sounds Objective Data Labs CBC & Chem 7: 06/20/21 05:35 06/20/21 05:35 Labs: Laboratory Results - last 24 hr 06/19/21 06/19/21 06/19/21 07:39 11:27 15:32 WBC RBC Hgb Hct MCV MCH MCHC RDW Plt Count MPV Immature Gran % (Auto) Neut % (Auto) Lymph % (Auto) [place] % (Auto) Eos % (Auto) Baso % (Auto) Lymph # (Auto) [place] # (Auto) Eos # (Auto) Baso # (Auto) Abs Immat Gran (auto) Absolute Neuts (auto) Absolute Nucleated RBC Nucleated RBC % (auto) Smear Tech's Comments O2 Saturation ABG pH at Pt Temp ABG pCO2 at Pt Temp ABG pO2 at Pt Temp ABG HCO3 ABG Base Excess (Actual) VBG pH VBG pCO2 VBG pO2 VBG HCO3 VBG O2 Saturation VBG Base Excess Sodium Potassium Chloride Carbon Dioxide Anion Gap BUN Creatinine Estim Creat Clear Calc Estimated GFR POC Glucose 130 H 176 H 269 H Random Glucose Fasting Glucose Calcium Ferritin Total Bilirubin AST ALT Alkaline Phosphatase Lactate Dehydrogenase Total Protein Albumin Urine Opiates Screen Urine Fentanyl Screen Ur Barbiturates Screen Ur Phencyclidine Scrn Ur Amphetamines Screen U Benzodiazepines Scrn Urine Cocaine Screen U Marijuana (THC) Screen 06/19/21 06/20/21 06/20/21 23:07 00:27 00:27 WBC 13.3 H RBC 3.42 L D Hgb 8.4 L Hct 28.3 L D MCV 82.7 MCH 24.6 L MCHC 29.7 L RDW 17.2 H Plt Count 272 D MPV 9.9 Immature Gran % (Auto) 0.5 H Neut % (Auto) 93.8 H Lymph % (Auto) 2.3 L [place] % (Auto) 3.2 Eos % (Auto) 0.0 Baso % (Auto) 0.2 Lymph # (Auto) 0.3 L [place] # (Auto) 0.4 Eos # (Auto) 0.0 Baso # (Auto) 0.0 Abs Immat Gran (auto) 0.07 H Absolute Neuts (auto) 12.5 H Absolute Nucleated RBC 0.000 Nucleated RBC % (auto) 0.0 Smear Tech's Comments VERIFIED O2 Saturation 99.0 ABG pH at Pt Temp 7.36 ABG pCO2 at Pt Temp 46 H ABG pO2 at Pt Temp 181 H ABG HCO3 27 H ABG Base Excess (Actual) 1.4 VBG pH VBG pCO2 VBG pO2 VBG HCO3 VBG O2 Saturation VBG Base Excess Sodium 139 Potassium 4.0 Chloride 101 Carbon Dioxide 28 Anion Gap 14 BUN 29 H Creatinine 0.86 Estim Creat Clear Calc 121.8 Estimated GFR > 60 POC Glucose Random Glucose Fasting Glucose 257 H D Calcium 8.4 D Ferritin Total Bilirubin AST ALT Alkaline Phosphatase Lactate Dehydrogenase Total Protein Albumin Urine Opiates Screen Urine Fentanyl Screen Ur Barbiturates Screen Ur Phencyclidine Scrn Ur Amphetamines Screen U Benzodiazepines Scrn Urine Cocaine Screen U Marijuana (THC) Screen 06/20/21 06/20/21 06/20/21 00:59 05:35 05:35 WBC 11.0 H RBC 3.43 L Hgb 8.4 L Hct 28.3 L MCV 82.5 MCH 24.5 L MCHC 29.7 L RDW 17.2 H Plt Count 270 MPV 9.6 Immature Gran % (Auto) 0.6 H Neut % (Auto) 90.1 H Lymph % (Auto) 5.8 L [place] % (Auto) 3.4 Eos % (Auto) 0.0 Baso % (Auto) 0.1 Lymph # (Auto) 0.6 L [place] # (Auto) 0.4 Eos # (Auto) 0.0 Baso # (Auto) 0.0 Abs Immat Gran (auto) 0.07 H Absolute Neuts (auto) 9.9 H Absolute Nucleated RBC 0.000 Nucleated RBC % (auto) 0.0 Smear Tech's Comments O2 Saturation ABG pH at Pt Temp ABG pCO2 at Pt Temp ABG pO2 at Pt Temp ABG HCO3 ABG Base Excess (Actual) VBG pH VBG pCO2 VBG pO2 VBG HCO3 VBG O2 Saturation VBG Base Excess Sodium 140 Potassium 4.1 Chloride 101 Carbon Dioxide 29 Anion Gap 14 BUN 27 H Creatinine 0.79 Estim Creat Clear Calc 132.6 Estimated GFR > 60 POC Glucose Random Glucose 221 H D Fasting Glucose Calcium 8.7 Ferritin 462 H Total Bilirubin 0.5 AST 11 ALT 14 Alkaline Phosphatase 96 Lactate Dehydrogenase 422 H Total Protein 5.4 L Albumin 2.8 L Urine Opiates Screen POSITIVE H Urine Fentanyl Screen POSITIVE H Ur Barbiturates Screen Not Detected Ur Phencyclidine Scrn Not Detected Ur Amphetamines Screen Not Detected U Benzodiazepines Scrn Not Detected Urine Cocaine Screen POSITIVE H U Marijuana (THC) Screen Not Detected 06/20/21 05:37 WBC RBC Hgb Hct MCV MCH MCHC RDW Plt Count MPV Immature Gran % (Auto) Neut % (Auto) Lymph % (Auto) [place] % (Auto) Eos % (Auto) Baso % (Auto) Lymph # (Auto) [place] # (Auto) Eos # (Auto) Baso # (Auto) Abs Immat Gran (auto) Absolute Neuts (auto) Absolute Nucleated RBC Nucleated RBC % (auto) Smear Tech's Comments O2 Saturation ABG pH at Pt Temp ABG pCO2 at Pt Temp ABG pO2 at Pt Temp ABG HCO3 ABG Base Excess (Actual) VBG pH 7.42 VBG pCO2 46 VBG pO2 53 VBG HCO3 30 H VBG O2 Saturation 77.0 VBG Base Excess 5.7 Sodium Potassium Chloride Carbon Dioxide Anion Gap BUN Creatinine Estim Creat Clear Calc Estimated GFR POC Glucose Random Glucose Fasting Glucose Calcium Ferritin Total Bilirubin AST ALT Alkaline Phosphatase Lactate Dehydrogenase Total Protein Albumin Urine Opiates Screen Urine Fentanyl Screen Ur Barbiturates Screen Ur Phencyclidine Scrn Ur Amphetamines Screen U Benzodiazepines Scrn Urine Cocaine Screen U Marijuana (THC) Screen Microbiology Microbiology Results: Microbiology 06/15/21 00:51 Blood - Venous Blood Culture - Final No growth after 5 days. 06/15/21 00:50 Blood - Venous Blood Culture - Final No growth after 5 days. Progress Note: A&P Assessment and plan (1) IBD (inflammatory bowel disease): Status: Acute (2) Anemia: Status: Acute (3) Pneumonia due to COVID-19 virus: Status: Acute (4) Acute hypoxemic respiratory failure: Status: Acute (5) Acute respiratory distress syndrome (ARDS): Status: Acute (6) Morbid obesity: Status: Acute (7) Suppression of immune system subtherapeutic: Status: Acute (8) Hypoxia: Status: Acute (9) CHF (congestive heart failure): Status: Acute (10) Normocytic anemia: Status: Acute Assessment and Plan: will remains sedated on the ventilator and I will check echocardiogram for cardiac function and given the cocaine issue to be sure this is not contributed to by a pulmonary edema a little so check an EKG and a troponin Quality Stroke Does the patient have a stroke diagnosis?: No VTE Prior VTE?: No VTE Risk Level:: Medical - moderate - high VTE Device Contraindication: N/A - Device Ordered VTE Drug Contraindication: N/A - Med Ordered
[2021-06-20 07:18] LABS: Glucose, Whole Blood 180 mg/dL (60-115)
--- NOTE | 2021-06-20 07:30 | CA_ITS ---
Transthoracic Echocardiogram Patient (Last, First, Middle): Bhavik Jean-Baptiste, Gender: Male Date of : 1960 Age: 60 Procedure Date: 06/20/2021 Procedure Type: Transthoracic Echocardiogram Location: ICU Height: 190.5 cm Weight: 114.76 kg BSA: 2.42 m2 Heart Rate: bpm BP: 122 / 65 mmHg Delivery Assistant: Referring MD: Yifan Vazquez MD Symptoms: chf Study Quality: Fair ECG Rhythm: Sinus Conclusions: - Even with contrast use, difficult to assess LVEF/wall motion; possibly moderately reduced at about 35-40%. - No obvious valvular pathology seen on this study. Findings Procedure Information Contrast agent, definity, is being given per protocol without apparent complications. Left Ventricle Normal left ventricular cavity size. There is mildly increased left ventricular wall thickness. E/E prime ratio is between 8 and 15 consistent with indeterminate filling pressures. Evidence suggests grade I (mild) diastolic dysfunction. Even with contrast use, difficult to assess LVEF/wall motion; possibly moderately reduced at about 35-40%. Right Ventricle Normal right ventricular cavity size and systolic function. Atria Both atria are normal in size. Aortic Valve The aortic valve was not well visualized. There is no aortic valve stenosis. There is trace (trivial) aortic valve regurgitation. Mitral Valve The mitral valve appears normal. There is trace mitral valve regurgitation. There is no mitral valve stenosis. Pulmonic Valve The pulmonic valve was not well visualized. Tricuspid Valve There is trace tricuspid valve regurgitation. The pulmonary artery systolic pressure is normal. Great Vessels The aortic annulus and asc aorta are normal in size. Venous The inferior vena cava is dilated. The hepatic vein does not collapse with inspiration. (intubated). Pericardium/Pleural There is no evidence of pericardial effusion. Prior Study Comparison Changes noted compared to prior study dated: 12/24/2002. Reduced LVEF. Recommendations, Care & Conclusions No obvious valvular pathology seen on this study. Measurements 2D Linear Measurements IVSd: 1.09 0.6-0.9/0.6-1.0 cm LVIDd: 4.76 3.9-5.3/4.2-5.9 cm LVIDd Index: 1.97 2.4-3.2/2.2-3.1 cm/m2 LVIDs: 3.86 2.0-3.6 cm LVPWd: 1.05 0.7-1.1 cm Ao Root: 3.10 2.1-3.5 cm LA Diam: 3.80 2.7-3.8/3.0-4.0 cm LAIDs Index: 1.57 1.5-2.3 cm/m2 LV Mass: 229.49 67-162/88-224 g LV Mass Index: 94.83 43-95/49-115 g/m2 LVOT Diam: 2.40 3.0+(-)1.3 cm 2D Systolic Function EF 4C: 50.50 >55% EF 2C: 40.70 >55% EF BiP: 44.00 >55% Mitral Valve MV Pk E: 0.70 MV PK A: 1.03 MV Decel Time: 175.00 E/A: 0.70 E'Lateral: 5.77 E'Medial: 4.57 E/E' Med: 15.40 E/E' Lat: 12.20 PHT: 51.00 MVA PHT: 4.31 Decel [place]: 4.02 Aortic Valve AoV Pk [place]: 1.47 AoV Mn [place]: 1.04 AoV VTI: 0.30 AoV Pk Grad: 9.00 Aov Mn Grad: 5.00 TEENA Cont.VTI: 2.72 LVOT LVOT Pk [place]: 0.91 LVOT Mn [place]elf[place]: 0.65 LVOT VTI: 0.18 LVOT Pk Grad: 3.00 LVOT Mn Grad: 2.00 LVOT Diam: 2.40 LVOT Area: 4.52 Diastolic Function MV Pk E: 0.70 MV Pk A: 1.03 E/A: 0.70 E'Medial: 4.57 E/E' Med: 15.40 E' Laterial: 5.77 E/E' Lat: 12.20 Right Ventricle TAPSE (mm): 2.26 TVS' [place]: 15.60 Tricuspid Valve TR Pk [place]elf[place]: 1.61 TR Pk Grad: 10.00 Great Vessels Aorta Ao Root-2D: 3.10 2.0-3.7 cm Pulmonary Valve PV Pk [place]: 1.00 Peak PV Grad: 4.00 Updated in Other Vendor System with Status of Final Joaquin Payan MD electronically signed on 06/20/2021 4:48:55 PM with status of Final
[2021-06-20] MEDS: dexAMETHasone sod phosphate 4 MG/ML VIAL 6 MG IVPUSH (08:06)
[2021-06-20] MEDS: Ascorbic Acid 500 MG TABLET 1000 MG PO (08:06)
[2021-06-20] MEDS: Cholecalciferol (Vitamin D3) 25 MCG TABLET 50 MCG PO (08:07)
[2021-06-20] MEDS: Insulin Lispro 100 UNIT/ML 3 ML VIAL SUBCUT ×4 (08:07→23:50)
[2021-06-20] MEDS: Sucralfate 1 GM TABLET PO ×2 (08:07→20:01)
--- NOTE | 2021-06-20 10:04 | MHC.CLN ---
PT IS INTUBATED AND SEDATED PT CURRENTLY RECEIVING GLUCERNA AT MAX GOAL RATE 55 WITH 120CC WATER Q 4 HRS PROVIDING 1320KCALS (2049KCALS WITH SEDATION), 55G PROTEIN, 1846ML TOTAL WATER RECOMMEND VITAL 1.5 TF R/T HX ULCERATIVE COLITIS AND CROHNS DZ AT MAX GOAL RATE 45ML/HR WITH 30ML OF PROSOURCE TID AND 240ML FREE WATER FLUSHES Q 4HRS TO PROVIDE 1800KCALS (2549KCALS WITH SEDATION; 26KCALS.KG BASED ON CMW), 118G TOTAL PROTEIN (1.2G/KG BASED ON CMW), 2265ML TOTAL WATER FROM FORMULA AND FLUSHES (25ML/KG BASED ON IBW) START FORMULA AT 20ML/HR AND INCREASE BY 10ML Q 4 HRS UNTIL MAX GOAL IS ACHIEVED MONITOR TOLERANCE, RESIDUALS AND LYTES SEE ALSO CLINICAL NUTRITION ASSESSMENT
[2021-06-20] MEDS: fentaNYL citrate/NS 1,000 MCG/100 ML PLAST..BAG 12.5 MCG IVCONT (10:41)
[2021-06-20 11:36] LABS: Glucose, Whole Blood 178 mg/dL (60-115)
[2021-06-20] MEDS: propofoL 1,000 MG/100 ML VIAL 20.72 MG IVCONT (13:03)
[2021-06-20 16:10] LABS: Troponin-I High Sensitivity 18.7 ng/L (<3.5-35.0)
[2021-06-20] MEDS: Furosemide 20 MG/2 ML VIAL IVPUSH (16:30)
[2021-06-20 17:05] LABS: Glucose, Whole Blood 258 mg/dL (60-115)
[2021-06-20] MEDS: Potassium Chloride Packet 20 MEQ PACKET PO (17:06)
[2021-06-20] MEDS: fentaNYL citrate/NS 1,000 MCG/100 ML PLAST..BAG 10 MCG IVCONT (20:01)
[2021-06-20] MEDS: Albumin Human 25 % 100 ML IV (23:38)
[2021-06-20 23:51] LABS: Glucose, Whole Blood 259 mg/dL (60-115)
[2021-06-21] VITALS (36 sets, daily range): BP systolic 101–142; BP diastolic 47–70; PULSE 57–119; RESP 17–23; TEMP 35–38.5; O2SAT 84–100
[2021-06-21] MEDS: Albumin Human 25 % 100 ML IV (00:45)
[2021-06-21] MEDS: propofoL 1,000 MG/100 ML VIAL 27.63 MG IVCONT ×2 (02:55→05:41)
[2021-06-21] MEDS: fentaNYL citrate/NS 1,000 MCG/100 ML PLAST..BAG 12.5 MCG IVCONT (05:06)
[2021-06-21] MEDS: Omeprazole 20 MG CAPSULE.DR PO (05:41)
[2021-06-21 05:52] LABS: MANUAL DIFF FLAG NO
[2021-06-21 05:59] LABS: VBG Base Excess 11.8 mmol/L; VBG HCO3 36 mmol/L (22-26); VBG pCO2 51 mmHg; VBG pH 7.46 (7.32-7.43); VBG pO2 53 mmHg
[2021-06-21 06:01] LABS: Venous Blood Gas Refer to POC result
[2021-06-21 06:07] LABS: Eosinophils Percent Auto 0.2 % (0-4); Hematocrit 25.7 % (42.0-52.0); Hemoglobin 7.5 g/dl (14.0-18.0); Imm Gran Abs Auto 0.07 X10*3/uL (0.00-0.03); Imm Gran Pct Auto 0.8 % (0.0-0.4); Lymphocytes Absolute Auto 0.6 X10*3/uL (1.2-4.9); Lymphocytes Percent Auto 6.5 % (20-40); Mean Corpuscular HGB Conc 29.2 g/dl (31.0-36.0); Mean Corpuscular Hemoglobin 24.4 pg (27.0-33.0); Mean Corpuscular Volume 83.4 fL (80.0-98.0); Mean Platelet Volume 9.9 fL (9.4-12.4); Monocytes Absolute Auto 0.3 X10*3/uL (0.1-1.2); Monocytes Percent Auto 3.5 % (2-11); Neutrophils Absolute Auto 7.5 x10*3/uL (2.0-8.3); Platelet Count 194 X10*3/uL (160-400); Red Blood Count 3.08 X10*6/uL (4.60-5.80); Red Cell Distribution Width 17.1 % (11.0-16.0); White Blood Count 8.4 X10*3/uL (4.8-10.8)
[2021-06-21 06:07] LABS: Glucose, Whole Blood 216 mg/dL (60-115)
[2021-06-21 06:11] LABS: Alanine Aminotransferase 9 U/L (0-40); Albumin Level 3.2 g/dL (3.5-5.0); Alkaline Phosphatase 77 U/L (39-117); Anion Gap 11 (12-20); Aspartate Amino Transferase 7 U/L (5-37); Bilirubin Total 0.3 mg/dL (0.0-1.0); Blood Urea Nitrogen 30 mg/dL (9-16); Calcium 9.1 mg/dL (8.4-10.2); Carbon Dioxide 33 mmol/L (22-29); Chloride 102 mmol/L (96-108); Creatinine Clr Calc Pharmacy 124.7; Estimated Glomerular Filt Rate > 60; Glucose Random 230 mg/dL (60-115); Potassium 4.3 mmol/L (3.3-5.1); Sodium 142 mmol/L (135-145); Total Protein 5.7 g/dL (6.5-8.0)
[2021-06-21] MEDS: Insulin Lispro 100 UNIT/ML 3 ML VIAL SUBCUT ×4 (06:15→23:54)
[2021-06-21 09:47] LABS: Appearance Urine CLOUDY; Color Urine YELLOW; Glucose Urine UA NEG (NEG); Leukocyte Esterase Urine 2+ (NEG); Nitrite Urine NEG (NEG); UACC Culture Trigger YES; Urine Blood 3+ (NEG); Urine Ketones NEG (NEG); Urine Protein 1+ MG/DL (NEG-TRACE)
[2021-06-21 10:09] LABS: Bacteria Urine 4+ /LPF
[2021-06-21 10:11] LABS: Amorphous Sediment Urine 3+ /LPF; Mucus Urine 1+ /LPF; RBC Urine TNTC /HPF (0); Renal Epithelial Cells Urine 1+ /LPF; Squamous Epithelial Cell Urine TRACE /LPF; Uric Acid Crystals Urine 2+ /LPF; WBC Urine 30-49 /HPF (0-4)
[2021-06-21 10:12] LABS: WBC Clumps Urine NOTED
[2021-06-21] MEDS: Acetylcysteine 10 % 400 MG/4 ML VIAL INHALE (10:34)
[2021-06-21] MEDS: Albuterol Sulfate (0.083%) 2.5 MG/3 ML VIAL.NEB 10 MG INHALE (10:34)
[2021-06-21] MEDS: Ascorbic Acid 500 MG TABLET 1000 MG PO (10:54)
[2021-06-21] MEDS: Sucralfate 1 GM TABLET PO ×2 (10:54→20:43)
[2021-06-21] MEDS: Cholecalciferol (Vitamin D3) 25 MCG TABLET 50 MCG PO (10:54)
[2021-06-21] MEDS: dexAMETHasone sod phosphate 4 MG/ML VIAL 6 MG IVPUSH (10:54)
[2021-06-21] MEDS: fentaNYL citrate/NS 1,000 MCG/100 ML PLAST..BAG 20 MCG IVCONT ×3 (10:55→20:43)
[2021-06-21] MEDS: propofoL 1,000 MG/100 ML VIAL 34.53 MG IVCONT ×7 (10:56→23:54)
[2021-06-21 12:08] LABS: Glucose, Whole Blood 213 mg/dL (60-115)
--- NOTE | 2021-06-21 16:12 | MHC.CM.PN ---
Pt continues care in ICU on ventilatory support: No plans to extubate at this time: Pt origiannly came from home with family support: will likely require STR d/t deconditioning: will await PT/OT evals for determination of functional abilities.
[2021-06-21 16:38] LABS: Glucose, Whole Blood 320 mg/dL (60-115)
--- NOTE | 2021-06-21 17:22 | P.PNCC_ITS ---
Subjective Subjective Date of Service: 06/21/21 Interval History: 60-year-old moderately obese man with underlying ulcerative colitis with active guaiac-positive stools so potentially in a flare but presented with COVID-19 pneumonitis and evolving ARDS and acute hypoxemic respiratory failure which suddenly worsen as result of snorting cocaine in the hospital when he developed precipitous hypoxemic respiratory failure requiring intubation he remains sedated and intubated right now but with low-grade temperature and he has been momin cultured and empirically starting a single dose of Levaquin pending results of those cultures Critical Care Time (minutes): 45 Physical Exam Vital Signs: Vital Signs: Last Vital Signs Temp 100.6 F H 06/21/21 17:00 Pulse 68 06/21/21 17:00 Resp 18 06/21/21 17:00 BP 130/56 L 06/21/21 17:00 Pulse Ox 95 06/21/21 17:00 Oxygen Flow Rate 10 06/15/21 00:21 BMI result Body Mass Index 31.7 have nonfocal neurolog ically bedside echo with just mild diffuse hypokinesis of left ventricle approximately 50% ejection fraction but persistent distention of IVCD no primary valve or pericardial disease lungs without accessory muscle use without diaphragmatic effort and he is synchronous with the ventilator abdomen soft with no organomegaly and tolerating feedings skin intact no acrocyanosis Objective Data Labs CBC & Chem 7: 06/22/21 05:17 06/22/21 05:17 Labs: Laboratory Results - last 24 hr 06/20/21 06/21/21 06/21/21 23:43 05:45 05:45 WBC 8.4 RBC 3.08 L Hgb 7.5 L Hct 25.7 L MCV 83.4 MCH 24.4 L MCHC 29.2 L RDW 17.1 H Plt Count 194 D MPV 9.9 Immature Gran % (Auto) 0.8 H Neut % (Auto) 89.0 H Lymph % (Auto) 6.5 L [place] % (Auto) 3.5 Eos % (Auto) 0.2 Baso % (Auto) 0.0 Lymph # (Auto) 0.6 L [place] # (Auto) 0.3 Eos # (Auto) 0.0 Baso # (Auto) 0.0 Abs Immat Gran (auto) 0.07 H Absolute Neuts (auto) 7.5 Absolute Nucleated RBC 0.000 Nucleated RBC % (auto) 0.0 VBG pH VBG pCO2 VBG pO2 VBG HCO3 VBG O2 Saturation VBG Base Excess Sodium 142 Potassium 4.3 Chloride 102 Carbon Dioxide 33 H Anion Gap 11 L BUN 30 H Creatinine 0.84 Estim Creat Clear Calc 124.7 Estimated GFR > 60 POC Glucose 259 H Random Glucose 230 H Calcium 9.1 Total Bilirubin 0.3 AST 7 ALT 9 Alkaline Phosphatase 77 Total Protein 5.7 L Albumin 3.2 L Urine Color Urine Appearance Urine pH Ur Specific [place] Urine Protein Urine Glucose (UA) Urine Ketones Urine Blood Urine Nitrite Ur Leukocyte Esterase Urine RBC Urine WBC Urine WBC Clumps Ur Squamous Epith Cells Ur Renal Epithelial Cell Uric Acid Crystals Amorphous Sediment Urine Bacteria Urine Mucus Blood Type Antibody Screen Crossmatch 06/21/21 06/21/21 06/21/21 05:47 05:52 08:45 WBC RBC Hgb Hct MCV MCH MCHC RDW Plt Count MPV Immature Gran % (Auto) Neut % (Auto) Lymph % (Auto) [place] % (Auto) Eos % (Auto) Baso % (Auto) Lymph # (Auto) [place] # (Auto) Eos # (Auto) Baso # (Auto) Abs Immat Gran (auto) Absolute Neuts (auto) Absolute Nucleated RBC Nucleated RBC % (auto) VBG pH 7.46 H VBG pCO2 51 VBG pO2 53 VBG HCO3 36 H VBG O2 Saturation 81.0 VBG Base Excess 11.8 Sodium Potassium Chloride Carbon Dioxide Anion Gap BUN Creatinine Estim Creat Clear Calc Estimated GFR POC Glucose 216 H Random Glucose Calcium Total Bilirubin AST ALT Alkaline Phosphatase Total Protein Albumin Urine Color Urine Appearance Urine pH Ur Specific [place] Urine Protein Urine Glucose (UA) Urine Ketones Urine Blood Urine Nitrite Ur Leukocyte Esterase Urine RBC Urine WBC Urine WBC Clumps Ur Squamous Epith Cells Ur Renal Epithelial Cell Uric Acid Crystals Amorphous Sediment Urine Bacteria Urine Mucus Blood Type O Positive Antibody Screen NEGATIVE Crossmatch See Detail 06/21/21 06/21/21 06/21/21 09:33 11:17 16:33 WBC RBC Hgb Hct MCV MCH MCHC RDW Plt Count MPV Immature Gran % (Auto) Neut % (Auto) Lymph % (Auto) [place] % (Auto) Eos % (Auto) Baso % (Auto) Lymph # (Auto) [place] # (Auto) Eos # (Auto) Baso # (Auto) Abs Immat Gran (auto) Absolute Neuts (auto) Absolute Nucleated RBC Nucleated RBC % (auto) VBG pH VBG pCO2 VBG pO2 VBG HCO3 VBG O2 Saturation VBG Base Excess Sodium Potassium Chloride Carbon Dioxide Anion Gap BUN Creatinine Estim Creat Clear Calc Estimated GFR POC Glucose 213 H 320 H Random Glucose Calcium Total Bilirubin AST ALT Alkaline Phosphatase Total Protein Albumin Urine Color YELLOW Urine Appearance CLOUDY Urine pH 6.0 Ur Specific [place] 1.020 Urine Protein 1+ H Urine Glucose (UA) NEG Urine Ketones NEG Urine Blood 3+ H Urine Nitrite NEG Ur Leukocyte Esterase 2+ H Urine RBC TNTC H Urine WBC 30-49 H Urine WBC Clumps NOTED Ur Squamous Epith Cells TRACE Ur Renal Epithelial Cell 1+ Uric Acid Crystals 2+ Amorphous Sediment 3+ Urine Bacteria 4+ Urine Mucus 1+ Blood Type Antibody Screen Crossmatch Microbiology Microbiology Results: Microbiology 06/21/21 13:06 Sputum - Suctioned Gram Stain - Final 06/20/21 15:30 Sputum - Suctioned Gram Stain - Final 06/20/21 15:30 Sputum - Suctioned Sputum Culture - Preliminary Culture in progress. 06/15/21 00:51 Blood - Venous Blood Culture - Final No growth after 5 days. 06/15/21 00:50 Blood - Venous Blood Culture - Final No growth after 5 days. Progress Note: A&P Assessment and plan (1) Suppression of immune system subtherapeutic: Status: Acute (2) Morbid obesity: Status: Acute (3) Acute respiratory distress syndrome (ARDS): Status: Acute (4) Acute hypoxemic respiratory failure: Status: Acute (5) IBD (inflammatory bowel disease): Status: Acute (6) Anemia: Status: Acute (7) Pneumonia due to COVID-19 virus: Status: Acute (8) CHF (congestive heart failure): Status: Acute (9) Cocaine abuse with intoxication: Status: Acute (10) Pulmonary edema due to chemical: Status: Acute Assessment and Plan: he will remain intubated and sedated and we will treat CVP on an as-needed basis with diuretics hopefully a portion of his pulmonary infiltrates will recede based on the fact that it is is probably noncardiogenic pulmonary edema from the cocaine and maybe even a little cardiogenic contribution as well and he is being momin cultured for his fever and were following his hemoglobin as he has chronic blood loss anemia from his IBD and in addition to the IV Decadron we might consider us sulfasalazine orally for control of a colitis flare Quality Stroke Does the patient have a stroke diagnosis?: No VTE Prior VTE?: No VTE Risk Level:: Medical - moderate - high VTE Device Contraindication: N/A - Device Ordered VTE Drug Contraindication: N/A - Med Ordered
[2021-06-21] MEDS: levoFLOXacin/D5W 500 MG/100 ML PIGGYBACK 100 MG IV (17:42)
[2021-06-21 17:51] LABS: Hematocrit 27.7 % (42.0-52.0); Hemoglobin 8.3 g/dl (14.0-18.0); Imm Gran Abs Auto 0.06 X10*3/uL (0.00-0.03); Imm Gran Pct Auto 0.6 % (0.0-0.4); Lymphocytes Absolute Auto 0.2 X10*3/uL (1.2-4.9); Lymphocytes Percent Auto 2.1 % (20-40); MANUAL DIFF FLAG SCAN; Mean Corpuscular Hemoglobin 24.9 pg (27.0-33.0); Mean Corpuscular Volume 83.2 fL (80.0-98.0); Mean Platelet Volume 10.3 fL (9.4-12.4); Monocytes Absolute Auto 0.4 X10*3/uL (0.1-1.2); Monocytes Percent Auto 3.7 % (2-11); Neutrophils Absolute Auto 9.2 x10*3/uL (2.0-8.3); Neutrophils Percent Auto 93.6 % (45-73); Platelet Count 187 X10*3/uL (160-400); Red Blood Count 3.33 X10*6/uL (4.60-5.80); Red Cell Distribution Width 16.9 % (11.0-16.0); SCAN SMEAR FLAG 1; White Blood Count 9.9 X10*3/uL (4.8-10.8)
[2021-06-21 18:12] LABS: SLIDE REVIEW VERIFIED
[2021-06-21] MEDS: Albuterol/Iprat 2.5/0.5MG 3 ML AMPUL.NEB INHALE (20:26)
[2021-06-21 23:37] LABS: Glucose, Whole Blood 328 mg/dL (60-115)
[2021-06-21] MEDS: 0.9 % Sodium Chloride Flush 3 ML SYRINGE IVFLUSH (23:55)
[2021-06-22] VITALS (33 sets, daily range): BP systolic 107–135; BP diastolic 52–99; PULSE 64–709; RESP 18–21; TEMP 34.7–38.4; O2SAT 87–98
[2021-06-22] MEDS: fentaNYL citrate/NS 1,000 MCG/100 ML PLAST..BAG 20 MCG IVCONT ×2 (01:42→05:31)
[2021-06-22] MEDS: propofoL 1,000 MG/100 ML VIAL 34.53 MG IVCONT ×9 (02:38→22:23)
[2021-06-22 05:27] LABS: Glucose, Whole Blood 268 mg/dL (60-115)
[2021-06-22 05:30] LABS: VBG HCO3 32 mmol/L (22-26); VBG pCO2 41 mmHg; VBG pO2 43 mmHg
[2021-06-22] MEDS: Acetaminophen 325 MG TABLET 650 MG PO (05:30)
[2021-06-22] MEDS: Omeprazole 20 MG CAPSULE.DR PO (05:30)
[2021-06-22] MEDS: Insulin Lispro 100 UNIT/ML 3 ML VIAL SUBCUT ×4 (05:30→23:49)
[2021-06-22 05:42] LABS: Venous Blood Gas Refer to POC result
[2021-06-22 05:46] LABS: MANUAL DIFF FLAG NO
[2021-06-22 05:55] LABS: Eosinophils Percent Auto 0.2 % (0-4); Hematocrit 26.5 % (42.0-52.0); Hemoglobin 7.8 g/dl (14.0-18.0); Imm Gran Abs Auto 0.07 X10*3/uL (0.00-0.03); Imm Gran Pct Auto 1.3 % (0.0-0.4); Lymphocytes Absolute Auto 0.4 X10*3/uL (1.2-4.9); Lymphocytes Percent Auto 6.7 % (20-40); Mean Corpuscular HGB Conc 29.4 g/dl (31.0-36.0); Mean Corpuscular Hemoglobin 24.6 pg (27.0-33.0); Mean Corpuscular Volume 83.6 fL (80.0-98.0); Mean Platelet Volume 10.8 fL (9.4-12.4); Monocytes Absolute Auto 0.2 X10*3/uL (0.1-1.2); Monocytes Percent Auto 3.8 % (2-11); NRBC Pct Auto 0.4 /100WBC (0.0-0.2); Neutrophils Absolute Auto 4.6 x10*3/uL (2.0-8.3); Platelet Count 169 X10*3/uL (160-400); Red Blood Count 3.17 X10*6/uL (4.60-5.80); Red Cell Distribution Width 17.2 % (11.0-16.0); White Blood Count 5.3 X10*3/uL (4.8-10.8)
[2021-06-22 06:50] LABS: Alanine Aminotransferase 6 U/L (0-40); Albumin Level 2.7 g/dL (3.5-5.0); Alkaline Phosphatase 73 U/L (39-117); Anion Gap 8 (12-20); Aspartate Amino Transferase 7 U/L (5-37); Bilirubin Total 0.3 mg/dL (0.0-1.0); Blood Urea Nitrogen 21 mg/dL (9-16); Calcium 8.6 mg/dL (8.4-10.2); Carbon Dioxide 35 mmol/L (22-29); Chloride 100 mmol/L (96-108); Creatinine Clr Calc Pharmacy 139.7; Estimated Glomerular Filt Rate > 60; Glucose Random 309 mg/dL (60-115); Potassium 4.5 mmol/L (3.3-5.1); Sodium 138 mmol/L (135-145); Total Protein 5.3 g/dL (6.5-8.0)
[2021-06-22] MEDS: Sucralfate 1 GM TABLET PO ×2 (08:14→20:28)
[2021-06-22] MEDS: Ascorbic Acid 500 MG TABLET 1000 MG PO (08:14)
[2021-06-22] MEDS: 0.9 % Sodium Chloride Flush 3 ML SYRINGE IVFLUSH (08:14)
[2021-06-22] MEDS: dexAMETHasone sod phosphate 4 MG/ML VIAL 6 MG IVPUSH (08:14)
[2021-06-22] MEDS: Cholecalciferol (Vitamin D3) 25 MCG TABLET 50 MCG PO (08:14)
[2021-06-22] MEDS: Albuterol/Iprat 2.5/0.5MG 3 ML AMPUL.NEB INHALE ×4 (08:58→20:03)
--- NOTE | 2021-06-22 10:46 | MHC.CLN ---
F/U PT REMAINS INTUBATED AND SEDATED PT RECEIVING VITAL 1.5 TF R/T HX ULCERATIVE COLITIS AND CROHNS DZ AT MAX GOAL RATE 45ML/HR WITH 30ML OF PROSOURCE TID AND 240ML FREE WATER FLUSHES Q 4HRS PROVIDES 1800KCALS (2712KCALS WITH SEDATION; 27KCALS.KG BASED ON CMW), 118G TOTAL PROTEIN (1.2G/KG BASED ON CMW), 2265ML TOTAL WATER FROM FORMULA AND FLUSHES (25ML/KG BASED ON IBW) DISCUSSED AT ROUNDS WITH MD FREE WATER FLUSHES TO BE DECREASED TO 120ML Q 4HRS PER MD TO PROVIDE 1545ML TOTAL WATER FROM FORMULA AND FLUSHES MONITOR TOLERANCE, RESIDUALS AND LYTES
[2021-06-22] MEDS: fentaNYL citrate/NS 1,000 MCG/100 ML PLAST..BAG 17.5 MCG IVCONT ×3 (10:47→20:28)
[2021-06-22 11:56] LABS: Glucose, Whole Blood 294 mg/dL (60-115)
--- NOTE | 2021-06-22 16:29 | PM.CCPN ---
Subjective Subjective Date of Service: 06/22/21 Interval History: 60-year-old moderately obese individual with inflammatory bowel disease with active blood loss anemia presented with acute hypoxemic respiratory failure and ARDS related 1. To COVID-19 pneumonitis but then he snorted cocaine and developed in all probability precipitous hypoxemic respiratory failure from noncardiogenic pulmonary edema as well as having a a cardiomyopathy with a modest reduction of systolic and diastolic reserve EF approximately mid 40s with continued IVC distension by bedside echo but we were able to wean his FiO2 to 50% minute ventilatory requirements are diminishing Critical Care Time (minutes): 60 Physical Exam Vital Signs: Vital Signs: Last Vital Signs Temp 100.2 F 06/22/21 16:00 Pulse 76 06/22/21 16:11 Resp 20 06/22/21 16:11 BP 112/56 L 06/22/21 16:00 Pulse Ox 91 L 06/22/21 16:00 Oxygen Flow Rate 10 06/15/21 00:21 BMI result Body Mass Index 31.7 synchronous with the ventilator no respiratory effort nonfocal neurologically CVP stable at about 9-10 IVC still distended at 2 cm LV function is comparable no focal abnormality guaiac-positive stool but soft benign abdomen with no organomegaly Objective Data Labs CBC & Chem 7: 06/22/21 05:17 06/22/21 05:17 Labs: Laboratory Results - last 24 hr 06/21/21 06/21/21 06/21/21 08:45 16:33 17:46 WBC 9.9 RBC 3.33 L Hgb 8.3 L Hct 27.7 L MCV 83.2 MCH 24.9 L MCHC 30.0 L RDW 16.9 H Plt Count 187 MPV 10.3 Immature Gran % (Auto) 0.6 H Neut % (Auto) 93.6 H Lymph % (Auto) 2.1 L [place] % (Auto) 3.7 Eos % (Auto) 0.0 Baso % (Auto) 0.0 Lymph # (Auto) 0.2 L [place] # (Auto) 0.4 Eos # (Auto) 0.0 Baso # (Auto) 0.0 Abs Immat Gran (auto) 0.06 H Absolute Neuts (auto) 9.2 H Absolute Nucleated RBC 0.000 Nucleated RBC % (auto) 0.0 Smear Tech's Comments VERIFIED VBG pH VBG pCO2 VBG pO2 VBG HCO3 VBG O2 Saturation VBG Base Excess Sodium Potassium Chloride Carbon Dioxide Anion Gap BUN Creatinine Estim Creat Clear Calc Estimated GFR POC Glucose 320 H Random Glucose Calcium Total Bilirubin AST ALT Alkaline Phosphatase Total Protein Albumin Crossmatch See Detail 06/21/21 06/22/21 06/22/21 23:32 05:17 05:17 WBC 5.3 RBC 3.17 L Hgb 7.8 L Hct 26.5 L MCV 83.6 MCH 24.6 L MCHC 29.4 L RDW 17.2 H Plt Count 169 MPV 10.8 Immature Gran % (Auto) 1.3 H Neut % (Auto) 88.0 H Lymph % (Auto) 6.7 L [place] % (Auto) 3.8 Eos % (Auto) 0.2 Baso % (Auto) 0.0 Lymph # (Auto) 0.4 L [place] # (Auto) 0.2 Eos # (Auto) 0.0 Baso # (Auto) 0.0 Abs Immat Gran (auto) 0.07 H Absolute Neuts (auto) 4.6 Absolute Nucleated RBC 0.020 H Nucleated RBC % (auto) 0.4 H Smear Tech's Comments VBG pH VBG pCO2 VBG pO2 VBG HCO3 VBG O2 Saturation VBG Base Excess Sodium 138 Potassium 4.5 Chloride 100 Carbon Dioxide 35 H Anion Gap 8 L BUN 21 H Creatinine 0.75 Estim Creat Clear Calc 139.7 Estimated GFR > 60 POC Glucose 328 H Random Glucose 309 H Calcium 8.6 Total Bilirubin 0.3 AST 7 ALT 6 Alkaline Phosphatase 73 Total Protein 5.3 L Albumin 2.7 L Crossmatch 06/22/21 06/22/21 06/22/21 05:20 05:23 11:52 WBC RBC Hgb Hct MCV MCH MCHC RDW Plt Count MPV Immature Gran % (Auto) Neut % (Auto) Lymph % (Auto) [place] % (Auto) Eos % (Auto) Baso % (Auto) Lymph # (Auto) [place] # (Auto) Eos # (Auto) Baso # (Auto) Abs Immat Gran (auto) Absolute Neuts (auto) Absolute Nucleated RBC Nucleated RBC % (auto) Smear Tech's Comments VBG pH 7.50 H VBG pCO2 41 VBG pO2 43 VBG HCO3 32 H VBG O2 Saturation 66.0 VBG Base Excess 9.0 Sodium Potassium Chloride Carbon Dioxide Anion Gap BUN Creatinine Estim Creat Clear Calc Estimated GFR POC Glucose 268 H 294 H Random Glucose Calcium Total Bilirubin AST ALT Alkaline Phosphatase Total Protein Albumin Crossmatch Microbiology Microbiology Results: Microbiology 06/21/21 13:06 Sputum - Suctioned Gram Stain - Final 06/21/21 13:06 Sputum - Suctioned Sputum Culture - Preliminary Gram negative trudi 06/20/21 15:30 Sputum - Suctioned Gram Stain - Final 06/20/21 15:30 Sputum - Suctioned Sputum Culture - Preliminary Gram negative trudi 06/21/21 Unknown Urine Catheterized - [place] Catheter Urine Culture - Preliminary Gram negative trudi 06/15/21 00:51 Blood - Venous Blood Culture - Final No growth after 5 days. 06/15/21 00:50 Blood - Venous Blood Culture - Final No growth after 5 days. Progress Note: A&P Assessment and plan (1) Pulmonary edema due to chemical: Status: Acute (2) Cocaine abuse with intoxication: Status: Acute (3) Suppression of immune system subtherapeutic: Status: Acute (4) Morbid obesity: Status: Acute (5) Acute respiratory distress syndrome (ARDS): Status: Acute (6) Acute hypoxemic respiratory failure: Status: Acute (7) IBD (inflammatory bowel disease): Status: Acute (8) Anemia: Status: Acute (9) Pneumonia due to COVID-19 virus: Status: Acute (10) CHF (congestive heart failure): Status: Acute Assessment and Plan: basically doing well with a small downward drift in his hemoglobin which will watch for now but were growing gram-negative rods purely both from sputum as well as from urine and I have been covering him for 24 hours with Levaquin which I will stop I will stick with for now and I am adding sulfasalazine via his OG tube Quality Stroke Does the patient have a stroke diagnosis?: No VTE Prior VTE?: No VTE Risk Level:: Medical - moderate - high VTE Device Contraindication: N/A - Device Ordered VTE Drug Contraindication: N/A - Med Ordered
[2021-06-22] MEDS: Chlorhexidine Gluc Oral Rinse 15 ML MOUTHWASH BUCCAL ×2 (16:42→20:28)
[2021-06-22] MEDS: levoFLOXacin/D5W 750 MG/150 ML PIGGYBACK 100 MG IV (16:43)
[2021-06-22 18:19] LABS: Glucose, Whole Blood 346 mg/dL (60-115)
[2021-06-22] MEDS: Mesalamine 250 MG CAPSULE.ER 1000 MG PO ×2 (18:27→20:28)
[2021-06-23] VITALS (33 sets, daily range): BP systolic 103–129; BP diastolic 46–79; PULSE 57–115; RESP 20–30; TEMP 34.7–38; O2SAT 5–98
--- NOTE | 2021-06-23 | ECG_ITS ---
Test Reason : elevated T Blood Pressure : / mmHG Vent. Rate : 062 BPM Atrial Rate : 062 BPM P-R Int : 114 ms QRS Dur : 120 ms QT Int : 422 ms P-R-T Axes : 012 -11 012 degrees QTc Int : 428 ms Normal sinus rhythm RSR' or QR pattern in V1 suggests right ventricular conduction delay Abnormal ECG When compared with ECG of 20-JUN-2021 15:31, No significant change was found Referred By: Rhina Puentes Electronically Signed By:RUFINA RODRIGUEZ
[2021-06-23 00:26] LABS: Glucose, Whole Blood 285 mg/dL (60-115)
[2021-06-23] MEDS: 0.9 % Sodium Chloride Flush 3 ML SYRINGE IVFLUSH ×4 (00:28→23:28)
[2021-06-23] MEDS: propofoL 1,000 MG/100 ML VIAL 34.53 MG IVCONT ×9 (00:45→23:28)
[2021-06-23] MEDS: fentaNYL citrate/NS 1,000 MCG/100 ML PLAST..BAG 17.5 MCG IVCONT ×2 (00:45→05:45)
--- NOTE | 2021-06-23 04:58 | PC.NURSE ---
Initial contact, Pt intubated with an 8 tube 25cm at the lip. LS are dim on the right and dim in the left upper lobe and adventitious in the lower lobe. when patient was repositioned at approximately 8 oclock to the right side, pt desatted into the mid 80s. pt was repositioned to the left and oxygen percentage on the vent was increased to 60%. Pt has had increased o2 % requirements through the night. Pt sats best supine and decent when repositioned to the left. Pt sats the worst on the right and is very sensitive to activity and without 100% supplemental o2. Pt rapidly drops to low 80s. Pt has had very thick yellow/white mucous secretions suctioned out of ETT multiple times through the night. Pt has been in NS. He has some non-pitting edema in the arms, and +3 pitting edema on the posterior lower extremities but not the feet. Pt does have a cough an gag. Pupils are perrl. Pt sedated with propofol and fentanyl. Pt has tube feeds going vital 1.5 @ 45ml/hr. Pt had residual of 210 at 0000. Pt did have one liquid BM at approximately 1930. Pt has a [place] with output of 40-60mls/h of yellow urine with sediment. Skin is intact with minor bruising on right arm in the elbow area, and an abrasion on the lower right lateral back that is covered with a foam dress. No pressure injuries noted. Vent settings- Ac, R20, v550, 65%, peep 10. Temperature via [place] has been ranged from 99.5 - 100.2.
[2021-06-23 05:39] LABS: VBG HCO3 31 mmol/L (22-26); VBG pCO2 40 mmHg; VBG pO2 48 mmHg
[2021-06-23 05:42] LABS: MANUAL DIFF FLAG NO
[2021-06-23] MEDS: Insulin Lispro 100 UNIT/ML 3 ML VIAL SUBCUT ×4 (05:45→23:34)
[2021-06-23 06:00] LABS: Eosinophils Percent Auto 0.4 % (0-4); Hemoglobin 7.5 g/dl (14.0-18.0); Imm Gran Abs Auto 0.25 X10*3/uL (0.00-0.03); Imm Gran Pct Auto 4.7 % (0.0-0.4); Lymphocytes Absolute Auto 0.4 X10*3/uL (1.2-4.9); Lymphocytes Percent Auto 7.3 % (20-40); Mean Corpuscular HGB Conc 28.8 g/dl (31.0-36.0); Mean Corpuscular Hemoglobin 24.4 pg (27.0-33.0); Mean Corpuscular Volume 84.4 fL (80.0-98.0); Mean Platelet Volume 11.2 fL (9.4-12.4); Monocytes Absolute Auto 0.4 X10*3/uL (0.1-1.2); Monocytes Percent Auto 6.7 % (2-11); NRBC Pct Auto 0.6 /100WBC (0.0-0.2); Neutrophils Absolute Auto 4.4 x10*3/uL (2.0-8.3); Neutrophils Percent Auto 80.9 % (45-73); Platelet Count 194 X10*3/uL (160-400); Red Blood Count 3.08 X10*6/uL (4.60-5.80); Red Cell Distribution Width 17.5 % (11.0-16.0); White Blood Count 5.4 X10*3/uL (4.8-10.8)
[2021-06-23 06:07] LABS: Glucose, Whole Blood 269 mg/dL (60-115)
[2021-06-23 06:11] LABS: Alanine Aminotransferase 7 U/L (0-40); Albumin Level 2.6 g/dL (3.5-5.0); Alkaline Phosphatase 66 U/L (39-117); Anion Gap 10 (12-20); Aspartate Amino Transferase 6 U/L (5-37); Bilirubin Total 0.2 mg/dL (0.0-1.0); Blood Urea Nitrogen 27 mg/dL (9-16); Calcium 8.5 mg/dL (8.4-10.2); Carbon Dioxide 31 mmol/L (22-29); Chloride 105 mmol/L (96-108); Creatinine Clr Calc Pharmacy 143.5; Estimated Glomerular Filt Rate > 60; Glucose Random 297 mg/dL (60-115); Potassium 4.6 mmol/L (3.3-5.1); Sodium 141 mmol/L (135-145); Total Protein 5.1 g/dL (6.5-8.0)
[2021-06-23] MEDS: Omeprazole 20 MG CAPSULE.DR PO (06:17)
[2021-06-23 06:20] LABS: Venous Blood Gas Refer to POC result
[2021-06-23] MEDS: Cholecalciferol (Vitamin D3) 25 MCG TABLET 50 MCG PO (08:08)
[2021-06-23] MEDS: Chlorhexidine Gluc Oral Rinse 15 ML MOUTHWASH BUCCAL ×3 (08:08→20:56)
[2021-06-23] MEDS: Ascorbic Acid 500 MG TABLET 1000 MG PO (08:08)
[2021-06-23] MEDS: Mesalamine 250 MG CAPSULE.ER 1000 MG PO ×3 (08:08→20:56)
[2021-06-23] MEDS: Sucralfate 1 GM TABLET PO ×2 (08:09→20:56)
[2021-06-23] MEDS: dexAMETHasone sod phosphate 4 MG/ML VIAL 6 MG IVPUSH (08:09)
[2021-06-23] MEDS: Albuterol/Iprat 2.5/0.5MG 3 ML AMPUL.NEB INHALE ×4 (08:43→21:06)
[2021-06-23] MEDS: rifAXIMin 550 MG TABLET PO ×2 (10:35→16:08)
[2021-06-23] MEDS: Furosemide 40 MG/4 ML VIAL IVPUSH (10:35)
--- NOTE | 2021-06-23 11:30 | P.PNCC_ITS ---
Subjective Subjective Date of Service: 06/23/21 Interval History: 60-year-old obese male brought in for COVID-19 pneumonitis with acute hypoxemic respiratory failure and was placed on non-rebreather nasal high-flow and has a known background history of inflammatory bowel disease for which he was medicated and has had guaiac-positive stool with anemia of the since being here in the hospital and he then had cocaine smoke old into him in the hospital after he snorted he became delirious true agitated delirium and became more profoundly and precipitously hypoxemic so there was a question of whether not this superimposed issue with with pulmonary edema but he was intubated and the central line was placed he was brought down stairs had an elevated CVP initially was diuresed and but has a relatively positive intake and output by several L over the last 2 days only came down to 65% FiO2 with extensive bilateral than infiltrates and then all of a sudden became very tachypneic clearly with with marked diaphragmatic effort as well as accessory muscle use O2 saturations now dropped to 82% and you could see that he is obviously seeking more volume and flow he is trying to sustain inspiration during the expiratory phase of the machine so this soon as I switch him over to pressure control with slightly longer in inspiratory time the entire pattern subsided belly breathing went away he became much more synchronous with the machine and a temporized by raising him up to 100% FiO2 current saturations 95% heart rate of 120 settle down to 85 and he is blood pressure is down now to 14 my surveillance cultures all grew E coli that is including urine and sputum but not blood and he does have what looks like an active flare of his ulcerative colitis with continue blood she heading very minimal downward drift in his hemoglobin and I started him on mesalamine and he has been on Decadron and baricitinib otherwise so he is currently on Levaquin and then he started to develop the marked stool frequency which is rather malodorous sent down for C diff toxin and I empirically started on Xifaxan Critical Care Time (minutes): 60 Physical Exam Vital Signs: Vital Signs: Last Vital Signs Temp 100.2 F 06/23/21 11:00 Pulse 87 06/23/21 11:00 Resp 20 06/23/21 11:00 BP 118/63 06/23/21 11:00 Pulse Ox 93 06/23/21 11:00 Oxygen Flow Rate 10 06/15/21 00:21 BMI result Body Mass Index 31.7 to all of his distress vitals are now back down to a baseline and his oxygen saturation is replenishing and because he was 4 L positive on intake and output despite stable CVP of about 9 still raises the question as to whether not he has elevated left heart filling pressures since he does have evidence of a mild myopathy with reduction of systolic and diastolic reserve so I empirically gave him 40 of Lasix abdomen is benign no organomegaly Objective Data Labs CBC & Chem 7: 06/23/21 05:30 06/23/21 05:30 Labs: Laboratory Results - last 24 hr 06/22/21 06/22/21 06/22/21 11:52 18:12 23:46 WBC RBC Hgb Hct MCV MCH MCHC RDW Plt Count MPV Immature Gran % (Auto) Neut % (Auto) Lymph % (Auto) [place] % (Auto) Eos % (Auto) Baso % (Auto) Lymph # (Auto) [place] # (Auto) Eos # (Auto) Baso # (Auto) Abs Immat Gran (auto) Absolute Neuts (auto) Absolute Nucleated RBC Nucleated RBC % (auto) VBG pH VBG pCO2 VBG pO2 VBG HCO3 VBG O2 Saturation VBG Base Excess Sodium Potassium Chloride Carbon Dioxide Anion Gap BUN Creatinine Estim Creat Clear Calc Estimated GFR POC Glucose 294 H 346 H 285 H Random Glucose Calcium Total Bilirubin AST ALT Alkaline Phosphatase Total Protein Albumin 06/23/21 06/23/21 06/23/21 05:30 05:30 05:33 WBC 5.4 RBC 3.08 L Hgb 7.5 L Hct 26.0 L MCV 84.4 MCH 24.4 L MCHC 28.8 L RDW 17.5 H Plt Count 194 MPV 11.2 Immature Gran % (Auto) 4.7 H Neut % (Auto) 80.9 H Lymph % (Auto) 7.3 L [place] % (Auto) 6.7 Eos % (Auto) 0.4 Baso % (Auto) 0.0 Lymph # (Auto) 0.4 L [place] # (Auto) 0.4 Eos # (Auto) 0.0 Baso # (Auto) 0.0 Abs Immat Gran (auto) 0.25 H Absolute Neuts (auto) 4.4 Absolute Nucleated RBC 0.030 H Nucleated RBC % (auto) 0.6 H VBG pH 7.50 H VBG pCO2 40 VBG pO2 48 VBG HCO3 31 H VBG O2 Saturation 74.0 VBG Base Excess 8.0 Sodium 141 Potassium 4.6 Chloride 105 Carbon Dioxide 31 H Anion Gap 10 L BUN 27 H Creatinine 0.73 Estim Creat Clear Calc 143.5 Estimated GFR > 60 POC Glucose Random Glucose 297 H Calcium 8.5 Total Bilirubin 0.2 AST 6 ALT 7 Alkaline Phosphatase 66 Total Protein 5.1 L Albumin 2.6 L 06/23/21 05:40 WBC RBC Hgb Hct MCV MCH MCHC RDW Plt Count MPV Immature Gran % (Auto) Neut % (Auto) Lymph % (Auto) [place] % (Auto) Eos % (Auto) Baso % (Auto) Lymph # (Auto) [place] # (Auto) Eos # (Auto) Baso # (Auto) Abs Immat Gran (auto) Absolute Neuts (auto) Absolute Nucleated RBC Nucleated RBC % (auto) VBG pH VBG pCO2 VBG pO2 VBG HCO3 VBG O2 Saturation VBG Base Excess Sodium Potassium Chloride Carbon Dioxide Anion Gap BUN Creatinine Estim Creat Clear Calc Estimated GFR POC Glucose 269 H Random Glucose Calcium Total Bilirubin AST ALT Alkaline Phosphatase Total Protein Albumin Microbiology Microbiology Results: Microbiology 06/21/21 Unknown Urine Catheterized - [place] Catheter Urine Culture - Final Escherichia coli 06/21/21 13:06 Sputum - Suctioned Gram Stain - Final 06/21/21 13:06 Sputum - Suctioned Sputum Culture - Final Escherichia coli 06/20/21 15:30 Sputum - Suctioned Gram Stain - Final 06/20/21 15:30 Sputum - Suctioned Sputum Culture - Final Escherichia coli 06/15/21 00:51 Blood - Venous Blood Culture - Final No growth after 5 days. 06/15/21 00:50 Blood - Venous Blood Culture - Final No growth after 5 days. Progress Note: A&P Assessment and plan (1) Pulmonary edema due to chemical: Status: Acute (2) Cocaine abuse with intoxication: Status: Acute (3) Suppression of immune system subtherapeutic: Status: Acute (4) Morbid obesity: Status: Acute (5) Acute respiratory distress syndrome (ARDS): Status: Acute (6) Acute hypoxemic respiratory failure: Status: Acute (7) IBD (inflammatory bowel disease): Status: Acute (8) Anemia: Status: Acute (9) Pneumonia due to COVID-19 virus: Status: Acute (10) Hypoxia: Status: Acute (11) CHF (congestive heart failure): Status: Acute (12) Normocytic anemia: Status: Acute (13) Colitis: Status: Acute Assessment and Plan: plan therefore is to maintain Xifaxan until we get back in negative C diff if it is going to be negative and now that we know that E coli and is basically i nfected urine and sputum and sensitive to Levaquin we will maintain just a Levaquin I given him 1 dose of meropenem for synergy but now he will remain on the Levaquin and the Xifaxan as well as baricitinib and Decadron Quality Stroke Does the patient have a stroke diagnosis?: No VTE Prior VTE?: No VTE Risk Level:: Medical - moderate - high VTE Device Contraindication: N/A - Device Ordered VTE Drug Contraindication: N/A - Med Ordered
[2021-06-23] MEDS: fentaNYL citrate/NS 1,000 MCG/100 ML PLAST..BAG 20 MCG IVCONT ×3 (11:54→20:56)
[2021-06-23 11:58] LABS: Glucose, Whole Blood 377 mg/dL (60-115)
[2021-06-23 12:21] LABS: CDiff Gene PCR NEGATIVE (Negative)
[2021-06-23 18:05] LABS: Glucose, Whole Blood 364 mg/dL (60-115)
[2021-06-23] MEDS: levoFLOXacin/D5W 750 MG/150 ML PIGGYBACK 100 MG IV (18:16)
[2021-06-23 22:57] LABS: Troponin-I High Sensitivity 21.1 ng/L (<3.5-35.0)
[2021-06-24] VITALS (32 sets, daily range): BP systolic 97–132; BP diastolic 41–70; PULSE 51–87; RESP 19–24; TEMP 33–37.6; O2SAT 91–98
[2021-06-24] LABS: Glucose, Whole Blood 288 mg/dL (60-115)
[2021-06-24 00:31] LABS: Glucose, Whole Blood 293 mg/dL (60-115)
[2021-06-24] MEDS: propofoL 1,000 MG/100 ML VIAL 34.53 MG IVCONT ×8 (02:15→22:20)
[2021-06-24] MEDS: fentaNYL citrate/NS 1,000 MCG/100 ML PLAST..BAG 20 MCG IVCONT ×5 (02:15→23:31)
[2021-06-24 05:33] LABS: Venous Blood Gas Refer to POC result
[2021-06-24 05:33] LABS: VBG Base Excess 11.3 mmol/L; VBG HCO3 35 mmol/L (22-26); VBG pCO2 44 mmHg; VBG pO2 50 mmHg
[2021-06-24 05:45] LABS: Alanine Aminotransferase 7 U/L (0-40); Albumin Level 2.8 g/dL (3.5-5.0); Alkaline Phosphatase 73 U/L (39-117); Anion Gap 12 (12-20); Aspartate Amino Transferase 8 U/L (5-37); Bilirubin Direct 0.2 mg/dL (0.0-0.5); Bilirubin Total 0.3 mg/dL (0.0-1.0); Blood Urea Nitrogen 32 mg/dL (9-16); Calcium 8.8 mg/dL (8.4-10.2); Carbon Dioxide 32 mmol/L (22-29); Chloride 100 mmol/L (96-108); Creatinine Clr Calc Pharmacy 143.5; Estimated Glomerular Filt Rate > 60; Glucose Random 239 mg/dL (60-115); Phosphorus 3.1 mg/dL (2.7-4.5); Potassium 4.3 mmol/L (3.3-5.1); Sodium 140 mmol/L (135-145); Total Protein 5.7 g/dL (6.5-8.0)
[2021-06-24 05:49] LABS: Troponin-I High Sensitivity 20.9 ng/L (<3.5-35.0)
[2021-06-24 05:51] LABS: Hematocrit 27.4 % (42.0-52.0); Hemoglobin 8.1 g/dl (14.0-18.0); Mean Corpuscular HGB Conc 29.6 g/dl (31.0-36.0); Mean Corpuscular Hemoglobin 24.7 pg (27.0-33.0); Mean Corpuscular Volume 83.5 fL (80.0-98.0); Mean Platelet Volume 10.8 fL (9.4-12.4); NRBC Pct Auto 0.7 /100WBC (0.0-0.2); Platelet Count 221 X10*3/uL (160-400); Red Blood Count 3.28 X10*6/uL (4.60-5.80); Red Cell Distribution Width 17.2 % (11.0-16.0); White Blood Count 6.2 X10*3/uL (4.8-10.8)
[2021-06-24] MEDS: Omeprazole 20 MG CAPSULE.DR PO (06:10)
[2021-06-24 06:14] LABS: INTERNATIONAL NORM RATIO 1.2 (0.9-1.1); Prothrombin Time 13.6 SEC (9.9-13.0)
[2021-06-24 06:16] LABS: Partial Thromboplastin Time 24.3 SEC (24.1-38.0)
[2021-06-24 06:21] LABS: Band Neutrophils Percent 2 % (3-5); Lymphocytes Absolute Manual 0.4 X10*3/uL (1.2-4.9); Lymphocytes Percent Manual 6 % (20-40); Metamyelocytes Absolute 0.1 X10*3/uL; Metamyelocytes Percent 1 %; Microcytosis 2+ (15-30) /OIF; Monocytes Absolute Manual 0.5 X10*3/uL (0.1-1.2); Monocytes Percent Manual 8 % (2-11); Myelocytes Absolute 0.2 X10*/uL; Myelocytes Percent 3 %; Neutrophils Absolute Manual 4.9 X10*3/uL (2.0-8.3); Neutrophils Percent Manual 77 % (45-73); Platelet Estimate NORMAL (NORMAL); Platelet Morphology Comment NORMAL; Promyelocytes Absolute 0.2 X10*3/uL; Promyelocytes Percent 3 %; RBC Morphology NOTED
[2021-06-24 06:22] LABS: Burr Cells 2+ (3-5) /OIF; Hypochromasia 1+ (5-14) /OIF; Ovalocytes 1+ (5-14) /OIF; Polychromasia 1+ (0-2) /OIF; Smudge Cells PRESENT; Target Cells 1+ (5-14) /OIF; Tear Drop Cells 1+ (0-2) /OIF; Toxic Vacuolation PRESENT
[2021-06-24 06:23] LABS: D Dimer High Sensitivity 10763 NG/ML
[2021-06-24] MEDS: Insulin Lispro 100 UNIT/ML 3 ML VIAL SUBCUT ×3 (06:24→17:54)
[2021-06-24 06:47] LABS: Glucose, Whole Blood 210 mg/dL (60-115)
[2021-06-24] MEDS: 0.9 % Sodium Chloride Flush 3 ML SYRINGE IVFLUSH ×2 (07:50→14:13)
[2021-06-24] MEDS: dexAMETHasone sod phosphate 4 MG/ML VIAL 6 MG IVPUSH (07:50)
[2021-06-24] MEDS: Ascorbic Acid 500 MG TABLET 1000 MG PO (07:50)
[2021-06-24] MEDS: Sucralfate 1 GM TABLET PO (07:50)
[2021-06-24] MEDS: Chlorhexidine Gluc Oral Rinse 15 ML MOUTHWASH BUCCAL ×3 (07:50→20:57)
[2021-06-24] MEDS: Cholecalciferol (Vitamin D3) 25 MCG TABLET 50 MCG PO (07:50)
[2021-06-24] MEDS: Mesalamine 250 MG CAPSULE.ER 1000 MG PO ×3 (07:50→17:53)
[2021-06-24] MEDS: Albuterol/Iprat 2.5/0.5MG 3 ML AMPUL.NEB INHALE ×4 (07:54→20:37)
--- NOTE | 2021-06-24 09:29 | P.PNCC_ITS ---
Subjective Subjective Date of Service: 06/24/21 Interval History: acute hypoxemic resp failure from covid 19 pneumonitis/ARDS and precipitous need for intubation following cocaine snorting with probable cardiac/noncardiogenic pulmonary edema and with nosocomial E. Coli secondary bacterial pneumonia/UTI Still high FIO2 requirement and now paroxysmal A. Fib and iatrogenic volume overload being diuresed following CVP Critical Care Time (minutes): 45 Physical Exam Vital Signs: Vital Signs: Last Vital Signs Temp 98.8 F 06/24/21 09:00 Pulse 85 06/24/21 09:00 Resp 20 06/24/21 09:00 BP 121/63 06/24/21 09:00 Pulse Ox 91 L 06/24/21 09:00 Oxygen Flow Rate 10 06/15/21 00:21 BMI result Body Mass Index 31.7 sedated/intubated but nonfocal neurologically CV with 55% EF and no primary valve/pericardial infection lungs without accessory or diaphragmatic effort abdomen benign-but diarrhea C. Dif negative-on mesalamine for IBD with guaiac pos. stool Objective Data Labs CBC & Chem 7: 06/27/21 05:15 06/27/21 05:15 Labs: Laboratory Results - last 24 hr 06/23/21 06/23/21 06/23/21 10:49 11:51 18:00 WBC RBC Hgb Hct MCV MCH MCHC RDW Plt Count MPV Immature Gran % (Auto) Neut % (Auto) Lymph % (Auto) [place] % (Auto) Eos % (Auto) Baso % (Auto) Lymph # (Auto) [place] # (Auto) Eos # (Auto) Baso # (Auto) Abs Immat Gran (auto) Absolute Neuts (auto) Absolute Nucleated RBC Nucleated RBC % (auto) Neutrophils % (Manual) Band Neutrophils % Lymphocytes % (Manual) Monocytes % (Manual) Metamyelocytes % Myelocytes % Promyelocytes % Abs Neuts (Manual) Lymphocytes # (Manual) Monocytes # (Manual) Metamyelocytes # Myelocytes # Promyelocytes # Smudge Cells Toxic Vacuolation Platelet Estimate Plt Morphology Comment RBC Morphology Polychromasia Hypochromasia Microcytosis Target Cells Tear Drop Cells Ovalocytes [place] Cells PT INR APTT D-Dimer High Sensitivty VBG pH VBG pCO2 VBG pO2 VBG HCO3 VBG O2 Saturation VBG Base Excess Sodium Potassium Chloride Carbon Dioxide Anion Gap BUN Creatinine Estim Creat Clear Calc Estimated GFR POC Glucose 377 H* 364 H* Random Glucose Calcium Phosphorus Magnesium Total Bilirubin Direct Bilirubin AST ALT Alkaline Phosphatase Troponin I High Sens Total Protein Albumin C. difficile Tox B Gene NEGATIVE 06/23/21 06/23/21 06/24/21 22:29 23:31 00:27 WBC RBC Hgb Hct MCV MCH MCHC RDW Plt Count MPV Immature Gran % (Auto) Neut % (Auto) Lymph % (Auto) [place] % (Auto) Eos % (Auto) Baso % (Auto) Lymph # (Auto) [place] # (Auto) Eos # (Auto) Baso # (Auto) Abs Immat Gran (auto) Absolute Neuts (auto) Absolute Nucleated RBC Nucleated RBC % (auto) Neutrophils % (Manual) Band Neutrophils % Lymphocytes % (Manual) Monocytes % (Manual) Metamyelocytes % Myelocytes % Promyelocytes % Abs Neuts (Manual) Lymphocytes # (Manual) Monocytes # (Manual) Metamyelocytes # Myelocytes # Promyelocytes # Smudge Cells Toxic Vacuolation Platelet Estimate Plt Morphology Comment RBC Morphology Polychromasia Hypochromasia Microcytosis Target Cells Tear Drop Cells Ovalocytes [place] Cells PT INR APTT D-Dimer High Sensitivty VBG pH VBG pCO2 VBG pO2 VBG HCO3 VBG O2 Saturation VBG Base Excess Sodium Potassium Chloride Carbon Dioxide Anion Gap BUN Creatinine Estim Creat Clear Calc Estimated GFR POC Glucose 288 H 293 H Random Glucose Calcium Phosphorus Magnesium Total Bilirubin Direct Bilirubin AST ALT Alkaline Phosphatase Troponin I High Sens 21.1 Total Protein Albumin C. difficile Tox B Gene 06/24/21 06/24/21 06/24/21 05:16 05:16 05:16 WBC RBC Hgb Hct MCV MCH MCHC RDW Plt Count MPV Immature Gran % (Auto) Neut % (Auto) Lymph % (Auto) [place] % (Auto) Eos % (Auto) Baso % (Auto) Lymph # (Auto) [place] # (Auto) Eos # (Auto) Baso # (Auto) Abs Immat Gran (auto) Absolute Neuts (auto) Absolute Nucleated RBC Nucleated RBC % (auto) Neutrophils % (Manual) Band Neutrophils % Lymphocytes % (Manual) Monocytes % (Manual) Metamyelocytes % Myelocytes % Promyelocytes % Abs Neuts (Manual) Lymphocytes # (Manual) Monocytes # (Manual) Metamyelocytes # Myelocytes # Promyelocytes # Smudge Cells Toxic Vacuolation Platelet Estimate Plt Morphology Comment RBC Morphology Polychromasia Hypochromasia Microcytosis Target Cells Tear Drop Cells Ovalocytes [place] Cells PT 13.6 H INR 1.2 H APTT 24.3 D-Dimer High Sensitivty 97269 VBG pH VBG pCO2 VBG pO2 VBG HCO3 VBG O2 Saturation VBG Base Excess Sodium 140 Potassium 4.3 Chloride 100 Carbon Dioxide 32 H Anion Gap 12 BUN 32 H Creatinine 0.73 Estim Creat Clear Calc 143.5 Estimated GFR > 60 POC Glucose Random Glucose 239 H Calcium 8.8 Phosphorus 3.1 Magnesium 2.0 Total Bilirubin 0.3 Direct Bilirubin 0.2 AST 8 ALT 7 Alkaline Phosphatase 73 Troponin I High Sens 20.9 Total Protein 5.7 L Albumin 2.8 L C. difficile Tox B Gene 06/24/21 06/24/21 06/24/21 05:17 05:26 06:18 WBC 6.2 RBC 3.28 L Hgb 8.1 L Hct 27.4 L MCV 83.5 MCH 24.7 L MCHC 29.6 L RDW 17.2 H Plt Count 221 MPV 10.8 Immature Gran % (Auto) Cancelled Neut % (Auto) Cancelled Lymph % (Auto) Cancelled [place] % (Auto) Cancelled Eos % (Auto) Cancelled Baso % (Auto) Cancelled Lymph # (Auto) Cancelled [place] # (Auto) Cancelled Eos # (Auto) Cancelled Baso # (Auto) Cancelled Abs Immat Gran (auto) Cancelled Absolute Neuts (auto) Cancelled Absolute Nucleated RBC 0.040 H Nucleated RBC % (auto) 0.7 H Neutrophils % (Manual) 77 H Band Neutrophils % 2 L Lymphocytes % (Manual) 6 L Monocytes % (Manual) 8 Metamyelocytes % 1 Myelocytes % 3 Promyelocytes % 3 Abs Neuts (Manual) 4.9 Lymphocytes # (Manual) 0.4 L Monocytes # (Manual) 0.5 Metamyelocytes # 0.1 Myelocytes # 0.2 Promyelocytes # 0.2 Smudge Cells PRESENT Toxic Vacuolation PRESENT Platelet Estimate NORMAL Plt Morphology Comment NORMAL RBC Morphology NOTED Polychromasia 1+ (0-2) Hypochromasia 1+ (5-14) Microcytosis 2+ (15-30) Target Cells 1+ (5-14) Tear Drop Cells 1+ (0-2) Ovalocytes 1+ (5-14) [place] Cells 2+ (3-5) PT INR APTT D-Dimer High Sensitivty VBG pH 7.50 H VBG pCO2 44 VBG pO2 50 VBG HCO3 35 H VBG O2 Saturation 77.0 VBG Base Excess 11.3 Sodium Potassium Chloride Carbon Dioxide Anion Gap BUN Creatinine Estim Creat Clear Calc Estimated GFR POC Glucose 210 H Random Glucose Calcium Phosphorus Magnesium Total Bilirubin Direct Bilirubin AST ALT Alkaline Phosphatase Troponin I High Sens Total Protein Albumin C. difficile Tox B Gene Microbiology Microbiology Results: Microbiology 06/21/21 Unknown Urine Catheterized - [place] Catheter Urine Culture - Final Escherichia coli 06/21/21 13:06 Sputum - Suctioned Gram Stain - Final 06/21/21 13:06 Sputum - Suctioned Sputum Culture - Final Escherichia coli 06/20/21 15:30 Sputum - Suctioned Gram Stain - Final 06/20/21 15:30 Sputum - Suctioned Sputum Culture - Final Escherichia coli 06/15/21 00:51 Blood - Venous Blood Culture - Final No growth after 5 days. 06/15/21 00:50 Blood - Venous Blood Culture - Final No growth after 5 days. Progress Note: A&P Assessment and plan (1) Pulmonary edema due to chemical: Status: Acute (2) Cocaine abuse with intoxication: Status: Acute (3) Suppression of immune system subtherapeutic: Status: Acute (4) Morbid obesity: Status: Acute (5) Acute respiratory distress syndrome (ARDS): Status: Acute (6) Acute hypoxemic respiratory failure: Status: Acute (7) IBD (inflammatory bowel disease): Status: Acute (8) Anemia: Status: Acute (9) Pneumonia due to COVID-19 virus: Status: Acute (10) Hypoxia: Status: Acute (11) CHF (congestive heart failure): Status: Acute (12) Normocytic anemia: Status: Acute (13) Colitis: Status: Acute Assessment and Plan: Abx. as above and decadron with diuresis guided by CVP Quality Stroke Does the patient have a stroke diagnosis?: No VTE Prior VTE?: No VTE Risk Level:: Medical - moderate - high VTE Device Contraindication: N/A - Device Ordered VTE Drug Contraindication: N/A - Med Ordered
[2021-06-24 11:55] LABS: Glucose, Whole Blood 244 mg/dL (60-115)
[2021-06-24 17:40] LABS: Glucose, Whole Blood 320 mg/dL (60-115)
[2021-06-24] MEDS: levoFLOXacin/D5W 750 MG/150 ML PIGGYBACK 100 MG IV (17:54)
[2021-06-24] MEDS: Albumin Human 25 % 100 ML IV ×2 (20:05→20:58)
[2021-06-25] VITALS (33 sets, daily range): BP systolic 102–160; BP diastolic 45–81; PULSE 56–132; RESP 18–28; TEMP 34–38.4; O2SAT 90–97
[2021-06-25 00:42] LABS: Glucose, Whole Blood 206 mg/dL (60-115)
[2021-06-25] MEDS: 0.9 % Sodium Chloride Flush 3 ML SYRINGE IVFLUSH ×4 (01:32→20:48)
[2021-06-25] MEDS: propofoL 1,000 MG/100 ML VIAL 34.53 MG IVCONT ×3 (01:32→07:29)
[2021-06-25] MEDS: Insulin Lispro 100 UNIT/ML 3 ML VIAL SUBCUT ×4 (01:38→23:44)
[2021-06-25] MEDS: fentaNYL citrate/NS 1,000 MCG/100 ML PLAST..BAG 20 MCG IVCONT (04:30)
[2021-06-25 05:07] LABS: VBG Base Excess 6.8 mmol/L; VBG HCO3 29 mmol/L (22-26); VBG pCO2 33 mmHg; VBG pH 7.55 (7.32-7.43); VBG pO2 49 mmHg
[2021-06-25 05:34] LABS: Venous Blood Gas Refer to POC result
[2021-06-25 05:50] LABS: Hematocrit 26.3 % (42.0-52.0); Hemoglobin 7.9 g/dl (14.0-18.0); Mean Corpuscular Hemoglobin 24.8 pg (27.0-33.0); Mean Corpuscular Volume 82.4 fL (80.0-98.0); Mean Platelet Volume 11.3 fL (9.4-12.4); NRBC Pct Auto 0.7 /100WBC (0.0-0.2); Platelet Count 228 X10*3/uL (160-400); Red Blood Count 3.19 X10*6/uL (4.60-5.80); Red Cell Distribution Width 17.3 % (11.0-16.0); White Blood Count 6.7 X10*3/uL (4.8-10.8)
[2021-06-25 05:58] LABS: INTERNATIONAL NORM RATIO 1.2 (0.9-1.1); Prothrombin Time 13.6 SEC (9.9-13.0)
[2021-06-25 06:06] LABS: B Type Natriuretic Peptide 55 pg/mL (<100)
[2021-06-25 06:10] LABS: Alanine Aminotransferase 6 U/L (0-40); Albumin Level 3.2 g/dL (3.5-5.0); Alkaline Phosphatase 71 U/L (39-117); Anion Gap 15 (12-20); Aspartate Amino Transferase 10 U/L (5-37); Bilirubin Direct 0.2 mg/dL (0.0-0.5); Bilirubin Total 0.4 mg/dL (0.0-1.0); Blood Urea Nitrogen 30 mg/dL (9-16); C Reactive Protein 8.38 mg/dL (< or = 0.50); Calcium 9.2 mg/dL (8.4-10.2); Carbon Dioxide 28 mmol/L (22-29); Chloride 101 mmol/L (96-108); Creatinine Clr Calc Pharmacy 151.8; Estimated Glomerular Filt Rate > 60; Glucose Random 166 mg/dL (60-115); Lactate Dehydrogenase 316 U/L (118-273); Magnesium 2.1 mg/dL (1.6-2.6); Phosphorus 2.9 mg/dL (2.7-4.5); Potassium 4.3 mmol/L (3.3-5.1); Sodium 140 mmol/L (135-145); Total Protein 6.1 g/dL (6.5-8.0)
[2021-06-25 06:11] LABS: D Dimer High Sensitivity 8385 NG/ML; Partial Thromboplastin Time 23.6 SEC (24.1-38.0)
[2021-06-25 06:27] LABS: Glucose, Whole Blood 146 mg/dL (60-115)
[2021-06-25 06:31] LABS: Ferritin 227 ng/mL (20-250)
[2021-06-25 06:45] LABS: Band Neutrophils Percent 3 % (3-5); Lymphocytes Absolute Manual 0.5 X10*3/uL (1.2-4.9); Lymphocytes Percent Manual 7 % (20-40); Metamyelocytes Absolute 0.3 X10*3/uL; Metamyelocytes Percent 5 %; Monocytes Absolute Manual 0.2 X10*3/uL (0.1-1.2); Monocytes Percent Manual 3 % (2-11); Myelocytes Absolute 0.1 X10*/uL; Myelocytes Percent 1 %; Neutrophils Absolute Manual 5.6 X10*3/uL (2.0-8.3); Neutrophils Percent Manual 80 % (45-73); Promyelocytes Absolute 0.1 X10*3/uL; Promyelocytes Percent 1 %
[2021-06-25 06:47] LABS: Macrocytosis 1+ (5-14) /OIF; Microcytosis 1+ (5-14) /OIF; Ovalocytes 1+ (5-14) /OIF; RBC Morphology NOTED
[2021-06-25 06:48] LABS: Burr Cells 1+ (0-2) /OIF; Hypochromasia 1+ (5-14) /OIF; Polychromasia 1+ (0-2) /OIF
[2021-06-25 06:49] LABS: Large Platelet PRESENT; Platelet Estimate NORMAL (NORMAL); Platelet Morphology Comment NOTED
[2021-06-25] MEDS: Mesalamine 250 MG CAPSULE.ER 1000 MG PO ×4 (07:27→20:48)
[2021-06-25] MEDS: dexAMETHasone sod phosphate 4 MG/ML VIAL 6 MG IVPUSH (07:27)
[2021-06-25] MEDS: Cholecalciferol (Vitamin D3) 25 MCG TABLET 50 MCG PO (07:27)
[2021-06-25] MEDS: Ascorbic Acid 500 MG TABLET 1000 MG PO (07:28)
[2021-06-25] MEDS: Chlorhexidine Gluc Oral Rinse 15 ML MOUTHWASH BUCCAL ×3 (07:28→20:48)
[2021-06-25] MEDS: Albuterol/Iprat 2.5/0.5MG 3 ML AMPUL.NEB INHALE ×4 (08:12→21:00)
[2021-06-25] MEDS: Furosemide 20 MG/2 ML VIAL IVPUSH (08:36)
[2021-06-25] MEDS: Albumin Human 25 % 100 ML IV ×3 (08:36→19:09)
[2021-06-25] MEDS: propofoL 1,000 MG/100 ML VIAL 20.72 MG IVCONT ×4 (08:37→23:42)
[2021-06-25] MEDS: fentaNYL citrate/NS 1,000 MCG/100 ML PLAST..BAG 17.5 MCG IVCONT (08:40)
[2021-06-25 10:26] LABS: Glucose, Whole Blood 421 mg/dL (60-115)
--- NOTE | 2021-06-25 11:16 | MHC.CLN ---
F/U PT REMAINS INTUBATED AND SEDATED VITAL 1.5 TUBE FEEDING CURRENTLY RUNNING AT 20 ML PER HOUR. INCREASED RESIDUALS NOTED 06/24 AND RATE DECREASED. CURRENTLY TOLERATING WELL. CONTINUE TO ADVANCE TO MAX GOAL RATE. TUBE FEED VITAL 1.5 AT MAX GOAL RATE 45 ML/HR WITH 30 ML OF PROSOURCE TID AND 120 ML FREE WATER FLUSHES Q 4 HRS PROVIDES 1800KCALS (2347 KCALS WITH SEDATION (23.7 KCALS/KG BASED ON CMW), 118 G TOTAL PROTEIN (1.2 G/KG BASED ON CMW), 1545 ML TOTAL WATER FROM FORMULA AND FLUSHES (17.4 ML/KG BASED ON IBW). MONITOR TOLERANCE, RESIDUALS AND LYTES
--- NOTE | 2021-06-25 11:40 | PM.CCPN ---
Subjective Subjective Date of Service: 06/25/21 Interval History: 60-year-old gentleman with underlying history of AML in remission, Crohn's /UC on Stelara and methotrexate admitted on 06/15/2021 with hypoxia secondary to COVID-19. treated with remdesivir and dexamethasone. Hospital course significant for progressive hypoxemia requiring transfer to intensive care unit, intubation, and ventilatory support on 06/20/2021. no events overnight. Critical Care Time (minutes): 45 Physical Exam Vital Signs: Vital Signs: Last Vital Signs Temp 101.1 F H 06/25/21 11:00 Pulse 115 H 06/25/21 11:00 Resp 20 06/25/21 11:00 BP 131/71 06/25/21 11:00 Pulse Ox 93 06/25/21 11:00 Oxygen Flow Rate 10 06/15/21 00:21 BMI result Body Mass Index 31.7 Const: General: no acute distress and other ( Sedated on the vent) Eyes: Sclerae: sclerae normal EOM: EOMs intact bilaterally Neck: Neck: Yes no lymphadenopathy, Yes trachea midline and Yes supple Resp: Auscultation: crackles ( diffuse bilateral) Cardio: Rate: tachycardic Rhythm: regular rhythm Heart sounds: no gallops, no murmurs and no rubs GI: Palpation (GI): Soft to palpation and Other GI palpation findings present ( Nontender) Auscultation: normal bowel sounds Extrem: General: Yes no pedal edema, No clubbing and No cyanosis Objective Data Labs CBC & Chem 7: 06/25/21 04:55 06/25/21 04:55 Labs: Laboratory Results - last 24 hr 06/23/21 06/24/21 06/24/21 11:51 11:48 17:36 WBC RBC Hgb Hct MCV MCH MCHC RDW Plt Count MPV Immature Gran % (Auto) Neut % (Auto) Lymph % (Auto) [place] % (Auto) Eos % (Auto) Baso % (Auto) Lymph # (Auto) [place] # (Auto) Eos # (Auto) Baso # (Auto) Abs Immat Gran (auto) Absolute Neuts (auto) Absolute Nucleated RBC Nucleated RBC % (auto) Neutrophils % (Manual) Band Neutrophils % Lymphocytes % (Manual) Monocytes % (Manual) Metamyelocytes % Myelocytes % Promyelocytes % Abs Neuts (Manual) Lymphocytes # (Manual) Monocytes # (Manual) Metamyelocytes # Myelocytes # Promyelocytes # Platelet Estimate Large Platelets Plt Morphology Comment RBC Morphology Polychromasia Hypochromasia Microcytosis Macrocytosis Ovalocytes [place] Cells PT INR APTT D-Dimer High Sensitivty VBG pH VBG pCO2 VBG pO2 VBG HCO3 VBG O2 Saturation VBG Base Excess Sodium Potassium Chloride Carbon Dioxide Anion Gap BUN Creatinine Estim Creat Clear Calc Estimated GFR POC Glucose 421 H* 244 H 320 H Random Glucose Calcium Phosphorus Magnesium Ferritin Total Bilirubin Direct Bilirubin AST ALT Alkaline Phosphatase Lactate Dehydrogenase C-Reactive Protein B-Natriuretic Peptide Total Protein Albumin 06/25/21 06/25/21 06/25/21 00:33 04:55 04:55 WBC RBC Hgb Hct MCV MCH MCHC RDW Plt Count MPV Immature Gran % (Auto) Neut % (Auto) Lymph % (Auto) [place] % (Auto) Eos % (Auto) Baso % (Auto) Lymph # (Auto) [place] # (Auto) Eos # (Auto) Baso # (Auto) Abs Immat Gran (auto) Absolute Neuts (auto) Absolute Nucleated RBC Nucleated RBC % (auto) Neutrophils % (Manual) Band Neutrophils % Lymphocytes % (Manual) Monocytes % (Manual) Metamyelocytes % Myelocytes % Promyelocytes % Abs Neuts (Manual) Lymphocytes # (Manual) Monocytes # (Manual) Metamyelocytes # Myelocytes # Promyelocytes # Platelet Estimate Large Platelets Plt Morphology Comment RBC Morphology Polychromasia Hypochromasia Microcytosis Macrocytosis Ovalocytes [place]a Cells PT 13.6 H INR 1.2 H APTT 23.6 L D-Dimer High Sensitivty 8385 VBG pH VBG pCO2 VBG pO2 VBG HCO3 VBG O2 Saturation VBG Base Excess Sodium 140 Potassium 4.3 Chloride 101 Carbon Dioxide 28 Anion Gap 15 BUN 30 H Creatinine 0.69 Estim Creat Clear Calc 151.8 Estimated GFR > 60 POC Glucose 206 H Random Glucose 166 H Calcium 9.2 Phosphorus 2.9 Magnesium 2.1 Ferritin 227 Total Bilirubin 0.4 Direct Bilirubin 0.2 AST 10 ALT 6 Alkaline Phosphatase 71 Lactate Dehydrogenase 316 H C-Reactive Protein 8.38 H B-Natriuretic Peptide Total Protein 6.1 L Albumin 3.2 L 06/25/21 06/25/21 06/25/21 04:55 04:55 05:00 WBC 6.7 RBC 3.19 L Hgb 7.9 L Hct 26.3 L MCV 82.4 MCH 24.8 L MCHC 30.0 L RDW 17.3 H Plt Count 228 MPV 11.3 Immature Gran % (Auto) Cancelled Neut % (Auto) Cancelled Lymph % (Auto) Cancelled [place] % (Auto) Cancelled Eos % (Auto) Cancelled Baso % (Auto) Cancelled Lymph # (Auto) Cancelled [place] # (Auto) Cancelled Eos # (Auto) Cancelled Baso # (Auto) Cancelled Abs Immat Gran (auto) Cancelled Absolute Neuts (auto) Cancelled Absolute Nucleated RBC 0.050 H Nucleated RBC % (auto) 0.7 H Neutrophils % (Manual) 80 H Band Neutrophils % 3 Lymphocytes % (Manual) 7 L Monocytes % (Manual) 3 Metamyelocytes % 5 Myelocytes % 1 Promyelocytes % 1 Abs Neuts (Manual) 5.6 Lymphocytes # (Manual) 0.5 L Monocytes # (Manual) 0.2 Metamyelocytes # 0.3 Myelocytes # 0.1 Promyelocytes # 0.1 Platelet Estimate NORMAL Large Platelets PRESENT Plt Morphology Comment NOTED RBC Morphology NOTED Polychromasia 1+ (0-2) Hypochromasia 1+ (5-14) Microcytosis 1+ (5-14) Macrocytosis 1+ (5-14) Ovalocytes 1+ (5-14) [place] Cells 1+ (0-2) PT INR APTT D-Dimer High Sensitivty VBG pH 7.55 H VBG pCO2 33 VBG pO2 49 VBG HCO3 29 H VBG O2 Saturation 76.0 VBG Base Excess 6.8 Sodium Potassium Chloride Carbon Dioxide Anion Gap BUN Creatinine Estim Creat Clear Calc Estimated GFR POC Glucose Random Glucose Calcium Phosphorus Magnesium Ferritin Total Bilirubin Direct Bilirubin AST ALT Alkaline Phosphatase Lactate Dehydrogenase C-Reactive Protein B-Natriuretic Peptide 55 Total Protein Albumin 06/25/21 06:19 WBC RBC Hgb Hct MCV MCH MCHC RDW Plt Count MPV Immature Gran % (Auto) Neut % (Auto) Lymph % (Auto) [place] % (Auto) Eos % (Auto) Baso % (Auto) Lymph # (Auto) [place] # (Auto) Eos # (Auto) Baso # (Auto) Abs Immat Gran (auto) Absolute Neuts (auto) Absolute Nucleated RBC Nucleated RBC % (auto) Neutrophils % (Manual) Band Neutrophils % Lymphocytes % (Manual) Monocytes % (Manual) Metamyelocytes % Myelocytes % Promyelocytes % Abs Neuts (Manual) Lymphocytes # (Manual) Monocytes # (Manual) Metamyelocytes # Myelocytes # Promyelocytes # Platelet Estimate Large Platelets Plt Morphology Comment RBC Morphology Polychromasia Hypochromasia Microcytosis Macrocytosis Ovalocytes [place]ck[place] Cells PT INR APTT D-Dimer High Sensitivty VBG pH VBG pCO2 VBG pO2 VBG HCO3 VBG O2 Saturation VBG Base Excess Sodium Potassium Chloride Carbon Dioxide Anion Gap BUN Creatinine Estim Creat Clear Calc Estimated GFR POC Glucose 146 H Random Glucose Calcium Phosphorus Magnesium Ferritin Total Bilirubin Direct Bilirubin AST ALT Alkaline Phosphatase Lactate Dehydrogenase C-Reactive Protein B-Natriuretic Peptide Total Protein Albumin Microbiology Microbiology Results: Microbiology 06/21/21 Unknown Urine Catheterized - [place] Catheter Urine Culture - Final Escherichia coli 06/21/21 13:06 Sputum - Suctioned Gram Stain - Final 06/21/21 13:06 Sputum - Suctioned Sputum Culture - Final Escherichia coli 06/20/21 15:30 Sputum - Suctioned Gram Stain - Final 06/20/21 15:30 Sputum - Suctioned Sputum Culture - Final Escherichia coli 06/15/21 00:51 Blood - Venous Blood Culture - Final No growth after 5 days. 06/15/21 00:50 Blood - Venous Blood Culture - Final No growth after 5 days. Progress Note: A&P Assessment and plan (1) Pulmonary edema due to chemical: Status: Acute (2) Cocaine abuse with intoxication: Status: Acute (3) Acute respiratory distress syndrome (ARDS): Status: Acute (4) Pneumonia due to COVID-19 virus: Status: Acute (5) Acute hypoxemic respiratory failure: Status: Acute (6) IBD (inflammatory bowel disease): Status: Acute (7) CHF (congestive heart failure): Status: Acute Assessment and Plan: Assessment: 60-year-old gentleman with underlying immunosuppression admitted with hypoxia secondary to COVID-19 ARDS now requiring ventilatory support. Plan: Neuro: No acute issues. Cardiac: No acute issues. Underlying diastolic dysfunction. Pulmonary: Acute hypoxic respiratory failure secondary to COVID-19 ARDS and E.coli pneumonia now requiring ventilatory support. Continue to titrate off as tolerated. Renal: No acute issues. Endo: No acute issues. GI: No acute issues. Underlying inflammatory bowel disease, continue mesalamine. ID: COVID-19, does not qualify for baricitinib secondary to underlying immune suppression, treated with remdesivir, continue on dexamethasone. Heme/Onc: No acute issues. Underlying history of AML in remission. Psych: No acute issues. Miscellaneous: No acute issues. Prophylaxis: Lovenox, omeprazole Diet: tube feeds Critical care time spent: 45 minutes Quality Stroke Does the patient have a stroke diagnosis?: No VTE Prior VTE?: No VTE Risk Level:: Medical - moderate - high VTE Device Contraindication: N/A - Device Ordered VTE Drug Contraindication: N/A - Med Ordered
[2021-06-25] MEDS: cefTRIAXone sodium 1 GM in 0.9 % Sodium Chloride 50 ML IV (12:45)
[2021-06-25] MEDS: Enoxaparin Sodium 40 MG/0.4 ML SYRINGE SUBCUT (12:46)
--- NOTE | 2021-06-25 13:05 | MHC.CM.PN ---
Pt continues on ventilatory support in ICU w/COVID. Presently at 60%FiO2 with plans to begin weaning trials. Pt received 2 part vax but is immunocompromised. Original d/c plan was for a return to home with his son however, pt may require more intensive medical management. Will await extubation and assessment of functional abilities before making referrals for next level of care.
[2021-06-25 14:22] LABS: Glucose, Whole Blood 345 mg/dL (60-115)
[2021-06-25] MEDS: Metoprolol Tartrate 5 MG/5 ML VIAL IVPUSH ×2 (15:42→20:48)
[2021-06-25 17:52] LABS: Glucose, Whole Blood 292 mg/dL (60-115)
[2021-06-25] MEDS: fentaNYL citrate/NS 1,000 MCG/100 ML PLAST..BAG 10 MCG IVCONT (19:09)
[2021-06-25 23:43] LABS: Glucose, Whole Blood 193 mg/dL (60-115)
[2021-06-26] VITALS (34 sets, daily range): BP systolic 90–155; BP diastolic 48–100; PULSE 61–110; RESP 20–29; TEMP 34.5–38.9; O2SAT 89–99
[2021-06-26] MEDS: Albumin Human 25 % 100 ML IV (02:04)
[2021-06-26] MEDS: Acetaminophen 325 MG TABLET 650 MG PO (02:05)
[2021-06-26] MEDS: Metoprolol Tartrate 5 MG/5 ML VIAL IVPUSH ×3 (02:05→20:05)
[2021-06-26] MEDS: propofoL 1,000 MG/100 ML VIAL 27.63 MG IVCONT ×5 (02:39→21:18)
[2021-06-26] MEDS: fentaNYL citrate/NS 1,000 MCG/100 ML PLAST..BAG 10 MCG IVCONT (04:31)
[2021-06-26 05:48] LABS: Glucose, Whole Blood 193 mg/dL (60-115)
[2021-06-26 06:03] LABS: Venous Blood Gas Refer to POC result
[2021-06-26 06:03] LABS: VBG Base Excess 10.6 mmol/L; VBG HCO3 34 mmol/L (22-26); VBG pCO2 41 mmHg; VBG pH 7.52 (7.32-7.43); VBG pO2 58 mmHg
[2021-06-26 06:16] LABS: Alanine Aminotransferase 9 U/L (0-40); Albumin Level 3.8 g/dL (3.5-5.0); Alkaline Phosphatase 73 U/L (39-117); Anion Gap 13 (12-20); Aspartate Amino Transferase 20 U/L (5-37); Bilirubin Total 0.7 mg/dL (0.0-1.0); Blood Urea Nitrogen 26 mg/dL (9-16); Calcium 9.4 mg/dL (8.4-10.2); Carbon Dioxide 31 mmol/L (22-29); Chloride 101 mmol/L (96-108); Creatinine Clr Calc Pharmacy 145.5; Estimated Glomerular Filt Rate > 60; Glucose Random 215 mg/dL (60-115); Phosphorus 2.5 mg/dL (2.7-4.5); Potassium 3.6 mmol/L (3.3-5.1); Sodium 141 mmol/L (135-145); Total Protein 6.2 g/dL (6.5-8.0)
[2021-06-26 06:19] LABS: Hematocrit 25.8 % (42.0-52.0); Hemoglobin 7.7 g/dl (14.0-18.0); Mean Corpuscular HGB Conc 29.8 g/dl (31.0-36.0); Mean Corpuscular Hemoglobin 24.7 pg (27.0-33.0); Mean Corpuscular Volume 82.7 fL (80.0-98.0); NRBC Pct Auto 0.4 /100WBC (0.0-0.2); Platelet Count 246 X10*3/uL (160-400); Red Blood Count 3.12 X10*6/uL (4.60-5.80); Red Cell Distribution Width 17.6 % (11.0-16.0); White Blood Count 7.5 X10*3/uL (4.8-10.8)
[2021-06-26] MEDS: Insulin Lispro 100 UNIT/ML 3 ML VIAL SUBCUT ×3 (06:21→20:05)
[2021-06-26 06:47] LABS: Band Neutrophils Percent 1 % (3-5); Lymphocytes Absolute Manual 0.7 X10*3/uL (1.2-4.9); Lymphocytes Percent Manual 9 % (20-40); Monocytes Absolute Manual 0.5 X10*3/uL (0.1-1.2); Monocytes Percent Manual 6 % (2-11); Myelocytes Absolute 0.2 X10*/uL; Myelocytes Percent 3 %; Neutrophils Absolute Manual 6.1 X10*3/uL (2.0-8.3); Neutrophils Percent Manual 80 % (45-73); Promyelocytes Absolute 0.1 X10*3/uL; Promyelocytes Percent 1 %
[2021-06-26 06:48] LABS: Microcytosis 1+ (5-14) /OIF; Platelet Estimate NORMAL (NORMAL); Platelet Morphology Comment NORMAL; RBC Morphology NOTED
[2021-06-26 06:49] LABS: Ovalocytes 1+ (5-14) /OIF; Target Cells 1+ (5-14) /OIF; Tear Drop Cells 1+ (0-2) /OIF
[2021-06-26 06:50] LABS: Basophilic Stippling 1+ (0-2) /OIF; Polychromasia 2+ (3-5) /OIF
[2021-06-26] MEDS: dexAMETHasone sod phosphate 4 MG/ML VIAL 6 MG IVPUSH (08:36)
[2021-06-26] MEDS: 0.9 % Sodium Chloride Flush 3 ML SYRINGE IVFLUSH ×2 (08:37→16:08)
[2021-06-26] MEDS: Chlorhexidine Gluc Oral Rinse 15 ML MOUTHWASH BUCCAL ×3 (08:37→20:05)
[2021-06-26] MEDS: Albuterol/Iprat 2.5/0.5MG 3 ML AMPUL.NEB INHALE ×4 (09:42→20:39)
[2021-06-26] MEDS: cefTRIAXone sodium 1 GM in 0.9 % Sodium Chloride 50 ML IV (10:52)
[2021-06-26] MEDS: Enoxaparin Sodium 40 MG/0.4 ML SYRINGE SUBCUT (10:52)
--- NOTE | 2021-06-26 11:08 | MHC.CLN ---
F/U DISCUSSED AT ROUNDS; PT TOLERATING TF WITH IMPROVED RESIDUALS PT RECEIVING TUBE FEED VITAL 1.5 AT MAX GOAL RATE 45 ML/HR WITH 30 ML OF PROSOURCE TID AND 120 ML FREE WATER FLUSHES Q 4 HRS PROVIDES 1800KCALS (2529 KCALS WITH SEDATION; 25.5 KCALS/KG BASED ON CMW), 118 G TOTAL PROTEIN (1.2 G/KG BASED ON CMW), 1545 ML TOTAL WATER FROM FORMULA AND FLUSHES (17.4 ML/KG BASED ON IBW). CONTINUE TO MONITOR TOLERANCE, RESIDUALS AND LYTES
[2021-06-26 11:57] LABS: Glucose, Whole Blood 369 mg/dL (60-115)
[2021-06-26] MEDS: Mesalamine 250 MG CAPSULE.ER 1000 MG PO ×2 (12:57→20:05)
--- NOTE | 2021-06-26 13:32 | P.PNCC_ITS ---
Subjective Subjective Date of Service: 06/26/21 Interval History: 60-year-old gentleman with underlying history of AML in remission, Crohn's /UC on Stelara and methotrexate admitted on 06/15/2021 with hypoxia secondary to COVID-19. treated with remdesivir and dexamethasone. Hospital course significant for progressive hypoxemia requiring transfer to intensive care unit, intubation, and ventilatory support on 06/20/2021. No events overnight. FiO2 requirements are improving, though still not tolerating pressure support trial. Critical Care Time (minutes): 45 Physical Exam Vital Signs: Vital Signs: Last Vital Signs Temp 100.6 F H 06/26/21 12:00 Pulse 105 H 06/26/21 13:00 Resp 26 H 06/26/21 12:00 BP 124/64 06/26/21 13:00 Pulse Ox 90 L 06/26/21 13:00 Oxygen Flow Rate 10 06/15/21 00:21 BMI result Body Mass Index 31.7 Const: General: no acute distress and other ( Sedated on the vent) Nutritional Appearance: obese Eyes: Sclerae: sclerae normal EOM: EOMs intact bilaterally Neck: Neck: Yes no lymphadenopathy, Yes trachea midline and Yes supple Resp: Auscultation: crackles ( bibasilar) Cardio: Rate: regular rate Rhythm: regular rhythm Heart sounds: no gallops, no murmurs and no rubs GI: Palpation (GI): Soft to palpation and Other GI palpation findings present ( Nontender) Auscultation: normal bowel sounds Extrem: General: No clubbing, No cyanosis and Yes pedal edema ( 1+ bilateral) Objective Data Labs CBC & Chem 7: 06/26/21 05:53 06/26/21 05:53 Labs: Laboratory Results - last 24 hr 06/25/21 06/25/21 06/25/21 12:05 17:21 23:35 WBC RBC Hgb Hct MCV MCH MCHC RDW Plt Count MPV Immature Gran % (Auto) Neut % (Auto) Lymph % (Auto) [place] % (Auto) Eos % (Auto) Baso % (Auto) Lymph # (Auto) [place] # (Auto) Eos # (Auto) Baso # (Auto) Abs Immat Gran (auto) Absolute Neuts (auto) Absolute Nucleated RBC Nucleated RBC % (auto) Neutrophils % (Manual) Band Neutrophils % Lymphocytes % (Manual) Monocytes % (Manual) Myelocytes % Promyelocytes % Abs Neuts (Manual) Lymphocytes # (Manual) Monocytes # (Manual) Myelocytes # Promyelocytes # Platelet Estimate Plt Morphology Comment RBC Morphology Polychromasia Basophilic Stippling Microcytosis Target Cells Tear Drop Cells Ovalocytes VBG pH VBG pCO2 VBG pO2 VBG HCO3 VBG O2 Saturation VBG Base Excess Sodium Potassium Chloride Carbon Dioxide Anion Gap BUN Creatinine Estim Creat Clear Calc Estimated GFR POC Glucose 345 H 292 H 193 H Random Glucose Calcium Phosphorus Magnesium Total Bilirubin AST ALT Alkaline Phosphatase Total Protein Albumin 06/26/21 06/26/21 06/26/21 05:45 05:53 05:53 WBC 7.5 RBC 3.12 L Hgb 7.7 L Hct 25.8 L MCV 82.7 MCH 24.7 L MCHC 29.8 L RDW 17.6 H Plt Count 246 MPV 10.0 Immature Gran % (Auto) Cancelled Neut % (Auto) Cancelled Lymph % (Auto) Cancelled [place] % (Auto) Cancelled Eos % (Auto) Cancelled Baso % (Auto) Cancelled Lymph # (Auto) Cancelled [place] # (Auto) Cancelled Eos # (Auto) Cancelled Baso # (Auto) Cancelled Abs Immat Gran (auto) Cancelled Absolute Neuts (auto) Cancelled Absolute Nucleated RBC 0.030 H Nucleated RBC % (auto) 0.4 H Neutrophils % (Manual) 80 H Band Neutrophils % 1 L Lymphocytes % (Manual) 9 L Monocytes % (Manual) 6 Myelocytes % 3 Promyelocytes % 1 Abs Neuts (Manual) 6.1 Lymphocytes # (Manual) 0.7 L Monocytes # (Manual) 0.5 Myelocytes # 0.2 Promyelocytes # 0.1 Platelet Estimate NORMAL Plt Morphology Comment NORMAL RBC Morphology NOTED Polychromasia 2+ (3-5) Basophilic Stippling 1+ (0-2) Microcytosis 1+ (5-14) Target Cells 1+ (5-14) Tear Drop Cells 1+ (0-2) Ovalocytes 1+ (5-14) VBG pH VBG pCO2 VBG pO2 VBG HCO3 VBG O2 Saturation VBG Base Excess Sodium 141 Potassium 3.6 Chloride 101 Carbon Dioxide 31 H Anion Gap 13 BUN 26 H Creatinine 0.72 Estim Creat Clear Calc 145.5 Estimated GFR > 60 POC Glucose 193 H Random Glucose 215 H Calcium 9.4 Phosphorus 2.5 L Magnesium 2.0 Total Bilirubin 0.7 AST 20 D ALT 9 Alkaline Phosphatase 73 Total Protein 6.2 L Albumin 3.8 06/26/21 06/26/21 05:56 11:50 WBC RBC Hgb Hct MCV MCH MCHC RDW Plt Count MPV Immature Gran % (Auto) Neut % (Auto) Lymph % (Auto) [place] % (Auto) Eos % (Auto) Baso % (Auto) Lymph # (Auto) [place] # (Auto) Eos # (Auto) Baso # (Auto) Abs Immat Gran (auto) Absolute Neuts (auto) Absolute Nucleated RBC Nucleated RBC % (auto) Neutrophils % (Manual) Band Neutrophils % Lymphocytes % (Manual) Monocytes % (Manual) Myelocytes % Promyelocytes % Abs Neuts (Manual) Lymphocytes # (Manual) Monocytes # (Manual) Myelocytes # Promyelocytes # Platelet Estimate Plt Morphology Comment RBC Morphology Polychromasia Basophilic Stippling Microcytosis Target Cells Tear Drop Cells Ovalocytes VBG pH 7.52 H VBG pCO2 41 VBG pO2 58 VBG HCO3 34 H VBG O2 Saturation 86.0 VBG Base Excess 10.6 Sodium Potassium Chloride Carbon Dioxide Anion Gap BUN Creatinine Estim Creat Clear Calc Estimated GFR POC Glucose 369 H* Random Glucose Calcium Phosphorus Magnesium Total Bilirubin AST ALT Alkaline Phosphatase Total Protein Albumin Microbiology Microbiology Results: Microbiology 06/21/21 Unknown Urine Catheterized - [place] Catheter Urine Culture - Final Escherichia coli 06/21/21 13:06 Sputum - Suctioned Gram Stain - Final 06/21/21 13:06 Sputum - Suctioned Sputum Culture - Final Escherichia coli 06/20/21 15:30 Sputum - Suctioned Gram Stain - Final 06/20/21 15:30 Sputum - Suctioned Sputum Culture - Final Escherichia coli 06/15/21 00:51 Blood - Venous Blood Culture - Final No growth after 5 days. 06/15/21 00:50 Blood - Venous Blood Culture - Final No growth after 5 days. Progress Note: A&P Assessment and plan (1) Cocaine abuse with intoxication: Status: Acute (2) Morbid obesity: Status: Acute (3) Acute respiratory distress syndrome (ARDS): Status: Acute (4) Acute hypoxemic respiratory failure: Status: Acute (5) IBD (inflammatory bowel disease): Status: Acute (6) CHF (congestive heart failure): Status: Acute (7) Pneumonia due to COVID-19 virus: Status: Acute Assessment and Plan: Assessment: 60-year-old gentleman with underlying immunosuppression admitted with hypoxia secondary to COVID-19 ARDS now requiring ventilatory support. Plan: Neuro: No acute issues. Cardiac: No acute issues. Underlying diastolic dysfunction. Pulmonary: Acute hypoxic respiratory failure secondary to COVID-19 ARDS and E.coli pneumonia now requiring ventilatory support. Continue to titrate off as tolerated. Renal: No acute issues. Endo: No acute issues. GI: No acute issues. Underlying inflammatory bowel disease, continue mesalamine. ID: COVID-19, does not qualify for baricitinib secondary to underlying immune suppression, treated with remdesivir, continue on dexamethasone. Heme/Onc: No acute issues. Underlying history of AML in remission. Psych: No acute issues. Miscellaneous: No acute issues. Prophylaxis: Lovenox, omeprazole Diet: tube feeds Critical care time spent: 45 minutes Quality Stroke Does the patient have a stroke diagnosis?: No VTE Prior VTE?: No VTE Risk Level:: Medical - moderate - high VTE Device Contraindication: N/A - Device Ordered VTE Drug Contraindication: N/A - Med Ordered
[2021-06-26] MEDS: Insulin Glargine,Hum.rec.anlog 100 UNIT/ML 10 ML VIAL 30 UNIT SUBCUT (14:05)
[2021-06-26] MEDS: propofoL 1,000 MG/100 ML VIAL 34.53 MG IVCONT (14:29)
--- NOTE | 2021-06-26 15:16 | MHC.CM.PN ---
Pt continues in ICU on ventilatory support secondary to COVID: Call placed to HCP, sister Judith. She states pt was totally independent prior to admission with no services or support needs. Discussed short term vs adjunct faculty for medical terminology rehab including ? trach/peg should pt not be able to vent wean. Judith supports STR but states she will need to discuss trach/peg/LTAC placement with her siblings and pt's son if the situation calls for it CM to delay referrals pending better understanding of pt's clinical needs.
[2021-06-26] MEDS: fentaNYL citrate/NS 1,000 MCG/100 ML PLAST..BAG 12.5 MCG IVCONT (16:07)
[2021-06-26 17:52] LABS: Glucose, Whole Blood 278 mg/dL (60-115)
[2021-06-26 23:09] LABS: Glucose, Whole Blood 253 mg/dL (60-115)
[2021-06-27] VITALS (35 sets, daily range): BP systolic 95–148; BP diastolic 47–83; PULSE 65–117; RESP 16–40; TEMP 33.8–38.4; O2SAT 80–98
[2021-06-27] MEDS: fentaNYL citrate/NS 1,000 MCG/100 ML PLAST..BAG 12.5 MCG IVCONT (00:06)
[2021-06-27] MEDS: Insulin Lispro 100 UNIT/ML 3 ML VIAL SUBCUT ×4 (00:10→17:25)
[2021-06-27] MEDS: 0.9 % Sodium Chloride Flush 3 ML SYRINGE IVFLUSH ×3 (00:11→16:06)
[2021-06-27] MEDS: propofoL 1,000 MG/100 ML VIAL 27.63 MG IVCONT ×2 (00:12→02:49)
[2021-06-27 05:42] LABS: Hematocrit 26.6 % (42.0-52.0); Hemoglobin 7.7 g/dl (14.0-18.0); Mean Corpuscular HGB Conc 28.9 g/dl (31.0-36.0); Mean Corpuscular Hemoglobin 24.1 pg (27.0-33.0); Mean Corpuscular Volume 83.4 fL (80.0-98.0); Mean Platelet Volume 10.2 fL (9.4-12.4); Platelet Count 293 X10*3/uL (160-400); Red Blood Count 3.19 X10*6/uL (4.60-5.80); Red Cell Distribution Width 17.3 % (11.0-16.0); White Blood Count 8.1 X10*3/uL (4.8-10.8)
[2021-06-27 05:55] LABS: Glucose, Whole Blood 193 mg/dL (60-115)
[2021-06-27] MEDS: propofoL 1,000 MG/100 ML VIAL 20.72 MG IVCONT (05:55)
[2021-06-27 05:57] LABS: Albumin Level 3.3 g/dL (3.5-5.0); Anion Gap 12 (12-20); Blood Urea Nitrogen 24 mg/dL (9-16); Carbon Dioxide 30 mmol/L (22-29); Chloride 103 mmol/L (96-108); Creatinine Clr Calc Pharmacy 161.2; Estimated Glomerular Filt Rate > 60; Glucose Random 239 mg/dL (60-115); Magnesium 2.1 mg/dL (1.6-2.6); Phosphorus 3.1 mg/dL (2.7-4.5); Potassium 4.1 mmol/L (3.3-5.1); Sodium 141 mmol/L (135-145)
[2021-06-27 06:38] LABS: Acanthocytes 1+ (0-2) /OIF; Band Neutrophils Percent 2 % (3-5); Eosinophils Absolute Manual 0.2 X10*3/uL (0.0-0.4); Eosinophils Percent Manual 3 % (0-4); Lymphocytes Absolute Manual 0.5 X10*3/uL (1.2-4.9); Lymphocytes Percent Manual 6 % (20-40); Microcytosis 2+ (15-30) /OIF; Monocytes Absolute Manual 0.2 X10*3/uL (0.1-1.2); Monocytes Percent Manual 3 % (2-11); Myelocytes Absolute 0.1 X10*/uL; Myelocytes Percent 1 %; Neutrophils Percent Manual 84 % (45-73); Ovalocytes 1+ (5-14) /OIF; Platelet Estimate NORMAL (NORMAL); Platelet Morphology Comment NORMAL; Promyelocytes Absolute 0.1 X10*3/uL; Promyelocytes Percent 1 %; RBC Morphology NOTED; Tear Drop Cells 2+ (3-5) /OIF
[2021-06-27 06:39] LABS: Hypochromasia 1+ (5-14) /OIF; Polychromasia 1+ (0-2) /OIF; Smudge Cells PRESENT; Toxic Vacuolation PRESENT
[2021-06-27] MEDS: Albuterol/Iprat 2.5/0.5MG 3 ML AMPUL.NEB INHALE ×4 (08:18→19:50)
[2021-06-27 09:21] LABS: Venous Blood Gas Refer to POC result
[2021-06-27 09:25] LABS: VBG Base Excess 3.2 mmol/L; VBG HCO3 27 mmol/L (22-26); VBG pCO2 38 mmHg; VBG pH 7.45 (7.32-7.43); VBG pO2 51 mmHg
[2021-06-27] MEDS: propofoL 1,000 MG/100 ML VIAL 34.53 MG IVCONT ×5 (09:48→22:47)
[2021-06-27] MEDS: Mesalamine 250 MG CAPSULE.ER 1000 MG PO ×4 (09:50→19:31)
[2021-06-27] MEDS: Chlorhexidine Gluc Oral Rinse 15 ML MOUTHWASH BUCCAL ×3 (09:50→19:31)
[2021-06-27] MEDS: Metoprolol Tartrate 5 MG/5 ML VIAL IVPUSH ×3 (09:50→19:30)
[2021-06-27] MEDS: dexAMETHasone sod phosphate 4 MG/ML VIAL 6 MG IVPUSH (09:50)
[2021-06-27] MEDS: Insulin Glargine,Hum.rec.anlog 100 UNIT/ML 10 ML VIAL 30 UNIT SUBCUT (09:50)
[2021-06-27] MEDS: fentaNYL citrate/NS 1,000 MCG/100 ML PLAST..BAG 20 MCG IVCONT ×3 (09:52→20:20)
[2021-06-27] MEDS: cefTRIAXone sodium 1 GM in 0.9 % Sodium Chloride 50 ML IV (10:04)
--- NOTE | 2021-06-27 10:42 | MHC.CLN ---
F/U PT REMAINS INTUBATED AND SEDATED DISCUSSED AT ROUNDS; PT TOLERATING TF WITH IMPROVED RESIDUALS PT RECEIVING TUBE FEED VITAL 1.5 AT MAX GOAL RATE 45 ML/HR WITH 30 ML OF PROSOURCE TID AND 120 ML FREE WATER FLUSHES Q 4 HRS PROVIDES 1800KCALS (2712 KCALS WITH SEDATION; 27 KCALS/KG BASED ON CMW), 118 G TOTAL PROTEIN (1.2 G/KG BASED ON CMW), 1545 ML TOTAL WATER FROM FORMULA AND FLUSHES (17.4 ML/KG BASED ON IBW). NOTED MD ADDED LANTUS CONTINUE TO MONITOR TOLERANCE, RESIDUALS AND LYTES
[2021-06-27 11:47] LABS: Glucose, Whole Blood 200 mg/dL (60-115)
[2021-06-27 11:48] LABS: Glucose, Whole Blood 254 mg/dL (60-115)
[2021-06-27] MEDS: Enoxaparin Sodium 40 MG/0.4 ML SYRINGE SUBCUT (12:28)
--- NOTE | 2021-06-27 13:11 | P.PNCC_ITS ---
Subjective Subjective Date of Service: 06/27/21 Interval History: 60-year-old gentleman with underlying history of AML in remission, Crohn's /UC on Stelara and methotrexate admitted on 06/15/2021 with hypoxia secondary to COVID-19. Treated with remdesivir and dexamethasone. Hospital course significant for progressive hypoxemia requiring transfer to intensive care unit, intubation, and ventilatory support on 06/20/2021. This a.m. with development of subcutaneous emphysema. Chest x-ray with no pneumothoraces, but pneumomediastinum. Critical Care Time (minutes): 45 Physical Exam Vital Signs: Vital Signs: Last Vital Signs Temp 100.4 F 06/27/21 13:00 Pulse 97 06/27/21 13:00 Resp 27 H 06/27/21 13:00 BP 124/65 06/27/21 13:00 Pulse Ox 92 06/27/21 13:00 Oxygen Flow Rate 10 06/15/21 00:21 BMI result Body Mass Index 31.7 Const: General: no acute distress and other (Subcutaneous emphysema around the neck and left shoulder) Nutritional Appearance: obese Eyes: Sclerae: sclerae normal EOM: EOMs intact bilaterally Neck: Neck: Yes no lymphadenopathy, Yes trachea midline and Yes supple Resp: Auscultation: crackles (Diffuse bilateral) Cardio: Rate: regular rate Rhythm: regular rhythm Heart sounds: no gallops, no murmurs and no rubs GI: Palpation (GI): Soft to palpation and Other GI palpation findings present ( Nontender) Auscultation: normal bowel sounds Extrem: General: No clubbing, No cyanosis and Yes pedal edema (1+ bilateral) Objective Data Labs CBC & Chem 7: 06/27/21 05:15 06/27/21 05:15 Labs: Laboratory Results - last 24 hr 06/26/21 06/26/21 06/27/21 17:46 23:04 05:15 WBC 8.1 RBC 3.19 L Hgb 7.7 L Hct 26.6 L MCV 83.4 MCH 24.1 L MCHC 28.9 L RDW 17.3 H Plt Count 293 MPV 10.2 Immature Gran % (Auto) Cancelled Neut % (Auto) Cancelled Lymph % (Auto) Cancelled [place] % (Auto) Cancelled Eos % (Auto) Cancelled Baso % (Auto) Cancelled Lymph # (Auto) Cancelled [place] # (Auto) Cancelled Eos # (Auto) Cancelled Baso # (Auto) Cancelled Abs Immat Gran (auto) Cancelled Absolute Neuts (auto) Cancelled Absolute Nucleated RBC 0.000 Nucleated RBC % (auto) 0.0 Neutrophils % (Manual) 84 H Band Neutrophils % 2 L Lymphocytes % (Manual) 6 L Monocytes % (Manual) 3 Eosinophils % (Manual) 3 Myelocytes % 1 Promyelocytes % 1 Abs Neuts (Manual) 7.0 Lymphocytes # (Manual) 0.5 L Monocytes # (Manual) 0.2 Eosinophils # (Manual) 0.2 Myelocytes # 0.1 Promyelocytes # 0.1 Smudge Cells PRESENT Toxic Vacuolation PRESENT Platelet Estimate NORMAL Plt Morphology Comment NORMAL RBC Morphology NOTED Polychromasia 1+ (0-2) Hypochromasia 1+ (5-14) Microcytosis 2+ (15-30) Tear Drop Cells 2+ (3-5) Ovalocytes 1+ (5-14) Acanthocytes (Spur) 1+ (0-2) VBG pH VBG pCO2 VBG pO2 VBG HCO3 VBG O2 Saturation VBG Base Excess Sodium Potassium Chloride Carbon Dioxide Anion Gap BUN Creatinine Estim Creat Clear Calc Estimated GFR POC Glucose 278 H 253 H Random Glucose Calcium Phosphorus Magnesium Albumin 06/27/21 06/27/21 06/27/21 05:15 05:50 08:37 WBC RBC Hgb Hct MCV MCH MCHC RDW Plt Count MPV Immature Gran % (Auto) Neut % (Auto) Lymph % (Auto) [place] % (Auto) Eos % (Auto) Baso % (Auto) Lymph # (Auto) [place] # (Auto) Eos # (Auto) Baso # (Auto) Abs Immat Gran (auto) Absolute Neuts (auto) Absolute Nucleated RBC Nucleated RBC % (auto) Neutrophils % (Manual) Band Neutrophils % Lymphocytes % (Manual) Monocytes % (Manual) Eosinophils % (Manual) Myelocytes % Promyelocytes % Abs Neuts (Manual) Lymphocytes # (Manual) Monocytes # (Manual) Eosinophils # (Manual) Myelocytes # Promyelocytes # Smudge Cells Toxic Vacuolation Platelet Estimate Plt Morphology Comment RBC Morphology Polychromasia Hypochromasia Microcytosis Tear Drop Cells Ovalocytes Acanthocytes (Spur) VBG pH VBG pCO2 VBG pO2 VBG HCO3 VBG O2 Saturation VBG Base Excess Sodium 141 Potassium 4.1 Chloride 103 Carbon Dioxide 30 H Anion Gap 12 BUN 24 H Creatinine 0.65 Estim Creat Clear Calc 161.2 Estimated GFR > 60 POC Glucose 193 H 200 H Random Glucose 239 H Calcium 9.0 Phosphorus 3.1 Magnesium 2.1 Albumin 3.3 L 06/27/21 06/27/21 08:59 11:40 WBC RBC Hgb Hct MCV MCH MCHC RDW Plt Count MPV Immature Gran % (Auto) Neut % (Auto) Lymph % (Auto) [place] % (Auto) Eos % (Auto) Baso % (Auto) Lymph # (Auto) [place] # (Auto) Eos # (Auto) Baso # (Auto) Abs Immat Gran (auto) Absolute Neuts (auto) Absolute Nucleated RBC Nucleated RBC % (auto) Neutrophils % (Manual) Band Neutrophils % Lymphocytes % (Manual) Monocytes % (Manual) Eosinophils % (Manual) Myelocytes % Promyelocytes % Abs Neuts (Manual) Lymphocytes # (Manual) Monocytes # (Manual) Eosinophils # (Manual) Myelocytes # Promyelocytes # Smudge Cells Toxic Vacuolation Platelet Estimate Plt Morphology Comment RBC Morphology Polychromasia Hypochromasia Microcytosis Tear Drop Cells Ovalocytes Acanthocytes (Spur) VBG pH 7.45 H VBG pCO2 38 VBG pO2 51 VBG HCO3 27 H VBG O2 Saturation 77.0 VBG Base Excess 3.2 Sodium Potassium Chloride Carbon Dioxide Anion Gap BUN Creatinine Estim Creat Clear Calc Estimated GFR POC Glucose 254 H Random Glucose Calcium Phosphorus Magnesium Albumin Microbiology Microbiology Results: Microbiology 06/21/21 Unknown Urine Catheterized - [place] Catheter Urine Culture - Final Escherichia coli 06/21/21 13:06 Sputum - Suctioned Gram Stain - Final 06/21/21 13:06 Sputum - Suctioned Sputum Culture - Final Escherichia coli 06/20/21 15:30 Sputum - Suctioned Gram Stain - Final 06/20/21 15:30 Sputum - Suctioned Sputum Culture - Final Escherichia coli 06/15/21 00:51 Blood - Venous Blood Culture - Final No growth after 5 days. 06/15/21 00:50 Blood - Venous Blood Culture - Final No growth after 5 days. Progress Note: A&P Assessment and plan (1) Pneumomediastinum: Status: Acute (2) Cocaine abuse with intoxication: Status: Acute (3) Morbid obesity: Status: Acute (4) Acute respiratory distress syndrome (ARDS): Status: Acute (5) Acute hypoxemic respiratory failure: Status: Acute (6) IBD (inflammatory bowel disease): Status: Acute (7) Pneumonia due to COVID-19 virus: Status: Acute Assessment and Plan: Assessment: 60-year-old gentleman with underlying immunosuppression admitted with hypoxia secondary to COVID-19 ARDS now requiring ventilatory support. Plan: Neuro: No acute issues. Cardiac: No acute issues. Underlying diastolic dysfunction. Pulmonary: Acute hypoxic respiratory failure secondary to COVID-19 ARDS and E.coli pneumonia now requiring ventilatory support. Subcutaneous emphysema with pneumomediastinum, no pneumothorax on x-ray, continue to minimize peak pressures. Renal: No acute issues. Endo: No acute issues. GI: No acute issues. Underlying inflammatory bowel disease, continue mesalamine. ID: COVID-19, does not qualify for baricitinib secondary to underlying immune suppression, treated with remdesivir, continue on dexamethasone. Heme/Onc: No acute issues. Underlying history of AML in remission. Psych: No acute issues. Miscellaneous: No acute issues. Prophylaxis: Lovenox, omeprazole Diet: tube feeds Critical care time spent: 45 minutes Quality Stroke Does the patient have a stroke diagnosis?: No VTE Prior VTE?: No VTE Risk Level:: Medical - moderate - high VTE Device Contraindication: N/A - Device Ordered VTE Drug Contraindication: N/A - Med Ordered
[2021-06-27 17:14] LABS: Glucose, Whole Blood 297 mg/dL (60-115)
[2021-06-27] MEDS: Cisatracurium Besylate 20 MG/10 ML VIAL 10 MG IVPUSH (19:30)
[2021-06-27 23:54] LABS: Glucose, Whole Blood 215 mg/dL (60-115)
[2021-06-28] VITALS (30 sets, daily range): BP systolic 92–166; BP diastolic 48–92; PULSE 64–118; RESP 14–29; TEMP 33.7–38.8; O2SAT 86–97; BMI 29.5
[2021-06-28] MEDS: Insulin Lispro 100 UNIT/ML 3 ML VIAL SUBCUT ×3 (01:01→18:32)
[2021-06-28] MEDS: fentaNYL citrate/NS 1,000 MCG/100 ML PLAST..BAG 20 MCG IVCONT ×5 (01:02→20:20)
[2021-06-28] MEDS: propofoL 1,000 MG/100 ML VIAL 34.53 MG IVCONT ×8 (01:04→18:32)
[2021-06-28] MEDS: 0.9 % Sodium Chloride Flush 3 ML SYRINGE IVFLUSH ×3 (01:05→14:37)
[2021-06-28] MEDS: Cisatracurium Besylate 20 MG/10 ML VIAL 10 MG IVPUSH ×2 (01:18→08:34)
[2021-06-28] MEDS: Midazolam HCl/PF 2 MG/2 ML VIAL IVPUSH ×3 (01:30→08:14)
[2021-06-28] MEDS: Metoprolol Tartrate 5 MG/5 ML VIAL IVPUSH ×3 (03:41→20:19)
[2021-06-28 05:37] LABS: MANUAL DIFF FLAG NO
[2021-06-28 05:42] LABS: VBG Base Excess 10.3 mmol/L; VBG HCO3 35 mmol/L (22-26); VBG pCO2 54 mmHg; VBG pH 7.42 (7.32-7.43); VBG pO2 46 mmHg
[2021-06-28 05:43] LABS: Venous Blood Gas Refer to POC result
[2021-06-28 05:44] LABS: Basophils Percent Auto 0.1 % (0-2); Eosinophils Absolute Auto 0.1 X10*3/uL (0.0-0.4); Eosinophils Percent Auto 1.2 % (0-4); Hematocrit 27.5 % (42.0-52.0); Hemoglobin 7.9 g/dl (14.0-18.0); Imm Gran Abs Auto 0.48 X10*3/uL (0.00-0.03); Imm Gran Pct Auto 4.1 % (0.0-0.4); Lymphocytes Absolute Auto 0.7 X10*3/uL (1.2-4.9); Lymphocytes Percent Auto 5.5 % (20-40); Mean Corpuscular HGB Conc 28.7 g/dl (31.0-36.0); Mean Corpuscular Hemoglobin 24.3 pg (27.0-33.0); Mean Corpuscular Volume 84.6 fL (80.0-98.0); Mean Platelet Volume 9.7 fL (9.4-12.4); Monocytes Absolute Auto 0.9 X10*3/uL (0.1-1.2); Monocytes Percent Auto 7.6 % (2-11); Neutrophils Absolute Auto 9.6 x10*3/uL (2.0-8.3); Neutrophils Percent Auto 81.5 % (45-73); Platelet Count 377 X10*3/uL (160-400); Red Blood Count 3.25 X10*6/uL (4.60-5.80); Red Cell Distribution Width 17.1 % (11.0-16.0); White Blood Count 11.8 X10*3/uL (4.8-10.8)
[2021-06-28 05:57] LABS: Glucose, Whole Blood 165 mg/dL (60-115)
[2021-06-28 06:04] LABS: Albumin Level 3.2 g/dL (3.5-5.0); Anion Gap 14 (12-20); Blood Urea Nitrogen 25 mg/dL (9-16); Calcium 9.1 mg/dL (8.4-10.2); Carbon Dioxide 29 mmol/L (22-29); Chloride 104 mmol/L (96-108); Creatinine Clr Calc Pharmacy 166.3; Estimated Glomerular Filt Rate > 60; Glucose Random 151 mg/dL (60-115); Magnesium 2.2 mg/dL (1.6-2.6); Phosphorus 3.5 mg/dL (2.7-4.5); Potassium 4.7 mmol/L (3.3-5.1); Sodium 142 mmol/L (135-145)
--- NOTE | 2021-06-28 07:08 | PC.NURSE ---
Assumed care from CHRIS Rai, at 1900. Patient was sedated on propofol 50 and fentanyl 200 gtts doserates. Patient still breathing with accessory muscle use, increased WOB. Patient given PRN nimbex at 1930. PC settings at the time with inspiratory pressure at 16, and after prn nimbex, minute volume dropped to 2-3 and tidal volumes around 200-270, and RT was called and PHLEBOTOMY SERVICES REPRESENTATIVE notified and the inspiratory pressure was uptitrated to 20 briefly, until the fiO2 was noted by [facility] Director to be 95-96%, and she had inspiratory pressure lowered to 16 again. Now still has #8 ett which is 26 cm at the lip, PC settings with rate of 16, inspiratory pressure 16, peep 5; FiO2 100%; SpO2 was often 91-95%, but this morning is noted to be 88-90%. Patient required the Nimbex PRN a second time, and this lowered the minute and tidal volumes comparably, and discussed with PHLEBOTOMY SERVICES REPRESENTATIVE, and did not want to again raise inspiratory pressure, because patient continues to have subcutaneous emphysema, with crepitus both auscultated throughout the upper lung diggs as well as diminished lower lung diggs, as well as palpable crepitus bilaterally throghout anterior chest, posterior shoulders, and bilateral anterior neck, of which PHLEBOTOMY SERVICES REPRESENTATIVE is aware. Patient was instead written for PRN versed, and this was given about 01:30 after the nimbex, and it did help to bring up the minute and tidal volumes. Patient then repeatedly with accessory muscle use and abdominal breathing, and was treated with PRN versed at about 03:30 and 05:30, with modest good effect, noted to be using accessory muscles again at shift change this am. Sinus rhythm/sinus tachycardia on monitor with occasional PACs and PVCs. BP was initially elevated 130's-160's, getting scheduled IV metoprolol, and now SBP is 95-130. Patient with distant heart sounds. mild nonpitting peripheral edema. TF was held twice around nimbex doses, and patient missed 2x 120 cc water flushes, and PHLEBOTOMY SERVICES REPRESENTATIVE aware. hypoactive BS. TF restarted at 20 ccs/hour. 45 ccs residual this am at 6 am. Patient with rectal tube putting out brown loose stool, and this was emptied this am. Patient with urine with greenish hue, [place] cath, 50-75 cc/hour.
[2021-06-28] MEDS: Albumin Human 25 % 100 ML IV ×3 (08:32→20:20)
[2021-06-28] MEDS: Insulin Glargine,Hum.rec.anlog 100 UNIT/ML 10 ML VIAL 30 UNIT SUBCUT (08:32)
[2021-06-28] MEDS: Chlorhexidine Gluc Oral Rinse 15 ML MOUTHWASH BUCCAL ×3 (08:33→20:20)
[2021-06-28] MEDS: dexAMETHasone sod phosphate 4 MG/ML VIAL 6 MG IVPUSH (08:33)
[2021-06-28] MEDS: Furosemide 40 MG/4 ML VIAL IVPUSH (08:33)
[2021-06-28] MEDS: Mesalamine 250 MG CAPSULE.ER 1000 MG PO ×2 (08:33→14:36)
[2021-06-28] MEDS: Albuterol/Iprat 2.5/0.5MG 3 ML AMPUL.NEB INHALE ×3 (08:48→15:52)
[2021-06-28] MEDS: cefTRIAXone sodium 1 GM in 0.9 % Sodium Chloride 50 ML IV (10:02)
[2021-06-28] MEDS: Cisatracurium Besylate 100 MG in 0.9 % Sodium Chloride 40 ML 6.42 MG IVCONT ×3 (10:33→22:23)
[2021-06-28 11:56] LABS: Glucose, Whole Blood 187 mg/dL (60-115)
--- NOTE | 2021-06-28 12:42 | PM.CCPN ---
Subjective Subjective Date of Service: 06/28/21 Interval History: 60-year-old gentleman with underlying history of AML in remission, Crohn's /UC on Stelara and methotrexate admitted on 06/15/2021 with hypoxia secondary to COVID-19. Treated with remdesivir and dexamethasone. Hospital course significant for progressive hypoxemia requiring transfer to intensive care unit, intubation, and ventilatory support on 06/20/2021, further complicated by development of pneumomediastinum with subcutaneous emphysema, but no pneumothorax, on 06/27/2021. No events overnight. Subcutaneous emphysema improved. Critical Care Time (minutes): 45 Physical Exam Vital Signs: Vital Signs: Last Vital Signs Temp 100.8 F H 06/28/21 12:00 Pulse 102 H 06/28/21 12:00 Resp 16 06/28/21 12:00 BP 99/48 L 06/28/21 12:00 Pulse Ox 89 L 06/28/21 12:00 Oxygen Flow Rate 10 06/15/21 00:21 BMI result Body Mass Index 29.5 Const: General: no acute distress and other (Sedated on the vent.) Eyes: Sclerae: sclerae normal EOM: EOMs intact bilaterally Neck: Neck: Yes no lymphadenopathy, Yes trachea midline and Yes supple Resp: Auscultation: crackles (Diffuse bilateral) Cardio: Rate: tachycardic Rhythm: regular rhythm Heart sounds: no gallops, no murmurs and no rubs GI: Palpation (GI): Soft to palpation and Other GI palpation findings present ( Nontender) Auscultation: normal bowel sounds Extrem: General: No clubbing, No cyanosis and Yes pedal edema (Trace bilateral) Objective Data Labs CBC & Chem 7: 06/28/21 05:27 06/28/21 05:27 Labs: Laboratory Results - last 24 hr 06/27/21 06/27/21 06/28/21 17:10 23:47 05:27 WBC 11.8 H RBC 3.25 L Hgb 7.9 L Hct 27.5 L MCV 84.6 MCH 24.3 L MCHC 28.7 L RDW 17.1 H Plt Count 377 D MPV 9.7 Immature Gran % (Auto) 4.1 H Neut % (Auto) 81.5 H Lymph % (Auto) 5.5 L [place] % (Auto) 7.6 Eos % (Auto) 1.2 Baso % (Auto) 0.1 Lymph # (Auto) 0.7 L [place] # (Auto) 0.9 Eos # (Auto) 0.1 Baso # (Auto) 0.0 Abs Immat Gran (auto) 0.48 H Absolute Neuts (auto) 9.6 H Absolute Nucleated RBC 0.000 Nucleated RBC % (auto) 0.0 VBG pH VBG pCO2 VBG pO2 VBG HCO3 VBG O2 Saturation VBG Base Excess Sodium Potassium Chloride Carbon Dioxide Anion Gap BUN Creatinine Estim Creat Clear Calc Estimated GFR POC Glucose 297 H 215 H Random Glucose Calcium Phosphorus Magnesium Albumin 06/28/21 06/28/21 06/28/21 05:27 05:35 05:49 WBC RBC Hgb Hct MCV MCH MCHC RDW Plt Count MPV Immature Gran % (Auto) Neut % (Auto) Lymph % (Auto) [place] % (Auto) Eos % (Auto) Baso % (Auto) Lymph # (Auto) [place] # (Auto) Eos # (Auto) Baso # (Auto) Abs Immat Gran (auto) Absolute Neuts (auto) Absolute Nucleated RBC Nucleated RBC % (auto) VBG pH 7.42 VBG pCO2 54 VBG pO2 46 VBG HCO3 35 H VBG O2 Saturation 72.0 VBG Base Excess 10.3 Sodium 142 Potassium 4.7 Chloride 104 Carbon Dioxide 29 Anion Gap 14 BUN 25 H Creatinine 0.63 Estim Creat Clear Calc 166.3 Estimated GFR > 60 POC Glucose 165 H Random Glucose 151 H D Calcium 9.1 Phosphorus 3.5 Magnesium 2.2 Albumin 3.2 L 06/28/21 11:51 WBC RBC Hgb Hct MCV MCH MCHC RDW Plt Count MPV Immature Gran % (Auto) Neut % (Auto) Lymph % (Auto) [place] % (Auto) Eos % (Auto) Baso % (Auto) Lymph # (Auto) [place] # (Auto) Eos # (Auto) Baso # (Auto) Abs Immat Gran (auto) Absolute Neuts (auto) Absolute Nucleated RBC Nucleated RBC % (auto) VBG pH VBG pCO2 VBG pO2 VBG HCO3 VBG O2 Saturation VBG Base Excess Sodium Potassium Chloride Carbon Dioxide Anion Gap BUN Creatinine Estim Creat Clear Calc Estimated GFR POC Glucose 187 H Random Glucose Calcium Phosphorus Magnesium Albumin Microbiology Microbiology Results: Microbiology 06/21/21 Unknown Urine Catheterized - [place] Catheter Urine Culture - Final Escherichia coli 06/21/21 13:06 Sputum - Suctioned Gram Stain - Final 06/21/21 13:06 Sputum - Suctioned Sputum Culture - Final Escherichia coli 06/20/21 15:30 Sputum - Suctioned Gram Stain - Final 06/20/21 15:30 Sputum - Suctioned Sputum Culture - Final Escherichia coli 06/15/21 00:51 Blood - Venous Blood Culture - Final No growth after 5 days. 06/15/21 00:50 Blood - Venous Blood Culture - Final No growth after 5 days. Progress Note: A&P Assessment and plan (1) Pneumomediastinum: Status: Acute (2) Cocaine abuse with intoxication: Status: Acute (3) Acute respiratory distress syndrome (ARDS): Status: Acute (4) Acute hypoxemic respiratory failure: Status: Acute (5) IBD (inflammatory bowel disease): Status: Acute (6) Pneumonia due to COVID-19 virus: Status: Acute (7) CHF (congestive heart failure): Status: Acute Assessment and Plan: Assessment: 60-year-old gentleman with underlying immunosuppression admitted with hypoxia secondary to COVID-19 ARDS now requiring ventilatory support. Plan: Neuro: No acute issues. Cardiac: No acute issues. Underlying diastolic dysfunction. Pulmonary: Acute hypoxic respiratory failure secondary to COVID-19 ARDS and E.coli pneumonia now requiring ventilatory support. Subcutaneous emphysema with pneumomediastinum, no pneumothorax on x-ray, continue to minimize peak pressures, subcutaneous emphysema has improved Renal: No acute issues. Endo: No acute issues. GI: No acute issues. Underlying inflammatory bowel disease, continue mesalamine. ID: COVID-19, does not qualify for baricitinib secondary to underlying immune suppression, treated with remdesivir, continue on dexamethasone. Heme/Onc: No acute issues. Underlying history of AML in remission. Psych: No acute issues. Miscellaneous: No acute issues. Prophylaxis: Lovenox, omeprazole Diet: tube feeds Critical care time spent: 45 minutes Quality Stroke Does the patient have a stroke diagnosis?: No VTE Prior VTE?: No VTE Risk Level:: Medical - moderate - high VTE Device Contraindication: N/A - Device Ordered VTE Drug Contraindication: N/A - Med Ordered
[2021-06-28] MEDS: Enoxaparin Sodium 40 MG/0.4 ML SYRINGE SUBCUT (13:20)
[2021-06-28 18:03] LABS: Glucose, Whole Blood 226 mg/dL (60-115)
[2021-06-28] MEDS: propofoL 1,000 MG/100 ML VIAL 27.63 MG IVCONT (22:23)
[2021-06-28 23:46] LABS: Glucose, Whole Blood 124 mg/dL (60-115)
[2021-06-29] VITALS (30 sets, daily range): BP systolic 97–173; BP diastolic 54–92; PULSE 64–120; RESP 16–27; TEMP 3–38.7; O2SAT 89–98; BMI 29.2
[2021-06-29] MEDS: propofoL 1,000 MG/100 ML VIAL 27.63 MG IVCONT ×7 (01:14→21:36)
[2021-06-29] MEDS: fentaNYL citrate/NS 1,000 MCG/100 ML PLAST..BAG 20 MCG IVCONT ×5 (01:16→22:28)
[2021-06-29] MEDS: 0.9 % Sodium Chloride Flush 3 ML SYRINGE IVFLUSH ×3 (01:24→14:03)
[2021-06-29] MEDS: Metoprolol Tartrate 5 MG/5 ML VIAL IVPUSH ×4 (02:41→21:36)
[2021-06-29] MEDS: Albumin Human 25 % 100 ML IV (02:42)
[2021-06-29 05:24] LABS: VBG Base Excess 12.4 mmol/L; VBG HCO3 38 mmol/L (22-26); VBG pCO2 59 mmHg; VBG pH 7.42 (7.32-7.43); VBG pO2 54 mmHg
[2021-06-29 05:40] LABS: MANUAL DIFF FLAG NO
[2021-06-29 05:41] LABS: Glucose, Whole Blood 117 mg/dL (60-115)
[2021-06-29 05:51] LABS: Basophils Percent Auto 0.1 % (0-2); Eosinophils Absolute Auto 0.1 X10*3/uL (0.0-0.4); Eosinophils Percent Auto 0.7 % (0-4); Hematocrit 26.8 % (42.0-52.0); Hemoglobin 7.8 g/dl (14.0-18.0); Imm Gran Pct Auto 2.8 % (0.0-0.4); Lymphocytes Absolute Auto 0.8 X10*3/uL (1.2-4.9); Lymphocytes Percent Auto 7.7 % (20-40); Mean Corpuscular HGB Conc 29.1 g/dl (31.0-36.0); Mean Corpuscular Hemoglobin 24.8 pg (27.0-33.0); Mean Corpuscular Volume 85.1 fL (80.0-98.0); Monocytes Absolute Auto 0.9 X10*3/uL (0.1-1.2); Monocytes Percent Auto 8.2 % (2-11); Neutrophils Absolute Auto 8.7 x10*3/uL (2.0-8.3); Neutrophils Percent Auto 80.5 % (45-73); Platelet Count 431 X10*3/uL (160-400); Red Blood Count 3.15 X10*6/uL (4.60-5.80); Red Cell Distribution Width 16.7 % (11.0-16.0); White Blood Count 10.9 X10*3/uL (4.8-10.8)
[2021-06-29] MEDS: Cisatracurium Besylate 100 MG in 0.9 % Sodium Chloride 40 ML 6.42 MG IVCONT ×2 (06:16→21:37)
[2021-06-29 06:17] LABS: Albumin Level 4.2 g/dL (3.5-5.0); Anion Gap 14 (12-20); Blood Urea Nitrogen 27 mg/dL (9-16); Calcium 9.9 mg/dL (8.4-10.2); Carbon Dioxide 32 mmol/L (22-29); Chloride 102 mmol/L (96-108); Creatinine Clr Calc Pharmacy 155.8; Estimated Glomerular Filt Rate > 60; Glucose Random 123 mg/dL (60-115); Magnesium 2.2 mg/dL (1.6-2.6); Phosphorus 3.1 mg/dL (2.7-4.5); Potassium 4.5 mmol/L (3.3-5.1); Sodium 143 mmol/L (135-145)
[2021-06-29 06:38] LABS: Venous Blood Gas Refer to POC result
[2021-06-29] MEDS: dexAMETHasone sod phosphate 4 MG/ML VIAL 6 MG IVPUSH (09:28)
[2021-06-29] MEDS: Chlorhexidine Gluc Oral Rinse 15 ML MOUTHWASH BUCCAL ×3 (09:28→21:36)
[2021-06-29] MEDS: Insulin Glargine,Hum.rec.anlog 100 UNIT/ML 10 ML VIAL 30 UNIT SUBCUT (09:28)
[2021-06-29] MEDS: Mesalamine 250 MG CAPSULE.ER 1000 MG PO ×2 (09:33→11:55)
--- NOTE | 2021-06-29 10:03 | MHC.CLN ---
Addendum entered by Peggy Shane, JONATHAN 06/29/21 10:07: NOTED PT WITH NEW STAGE 2 COCCYX WOUND ID 06/28 BY GENAG PROSOURCE TID IN PLACE WHEN TF TO RE-START WILL PROMOTE WOUND HEALING Original Note: F/U TF REMAINS ON HOLD R/T NIMBEX WHEN TF TO RE-START RECOMMEND VITAL 1.5 AT MAX GOAL RATE 45 ML/HR WITH 30 ML OF PROSOURCE TID AND 120 ML FREE WATER FLUSHES Q 4 HRS PROVIDES 1800KCALS (2529 KCALS WITH SEDATION; 25.5 KCALS/KG BASED ON CMW), 118 G TOTAL PROTEIN (1.2 G/KG BASED ON CMW), 1545 ML TOTAL WATER FROM FORMULA AND FLUSHES (17.4 ML/KG BASED ON IBW). MONITOR TOLERANCE, RESIDUALS AND LYTES
--- NOTE | 2021-06-29 11:13 | MHC.CM.PN ---
Patient remains intubated/vented in ICU. Per Dr Felix, patient's prognosis is poor at this time. Patient is from home with his son. Continue to monitor for d/c needs.
[2021-06-29] MEDS: Enoxaparin Sodium 40 MG/0.4 ML SYRINGE SUBCUT (11:55)
[2021-06-29 12:27] LABS: Glucose, Whole Blood 153 mg/dL (60-115)
--- NOTE | 2021-06-29 13:40 | P.PNCC_ITS ---
Subjective Subjective Date of Service: 06/29/21 Interval History: 60-year-old gentleman with underlying history of AML in remission, Crohn's /UC on Stelara and methotrexate admitted on 06/15/2021 with hypoxia secondary to COVID-19. Treated with remdesivir and dexamethasone. Hospital course significant for progressive hypoxemia requiring transfer to intensive care unit, intubation, and ventilatory support on 06/20/2021, further complicated by development of pneumomediastinum with subcutaneous emphysema, but no pneumothorax, on 06/27/2021. No events overnight. Persistent pneumomediastinum with waxing and waning subcutaneous emphysema and FiO2 requirements. Critical Care Time (minutes): 45 Physical Exam Vital Signs: Vital Signs: Last Vital Signs Temp 99.5 F 06/29/21 12:00 Pulse 108 H 06/29/21 13:00 Resp 16 06/29/21 13:00 BP 147/79 H 06/29/21 13:00 Pulse Ox 97 06/29/21 13:00 Oxygen Flow Rate 10 06/15/21 00:21 BMI result Body Mass Index 29.2 Const: General: no acute distress and other (Sedated on the vent, subcutaneous emphysema around the neck) Eyes: Sclerae: sclerae normal EOM: EOMs intact bilaterally Neck: Neck: Yes no lymphadenopathy, Yes trachea midline and Yes supple Resp: Auscultation: crackles (Diffuse bilateral) Cardio: Rate: tachycardic Rhythm: regular rhythm Heart sounds: no gallops, no murmurs and no rubs GI: Palpation (GI): Soft to palpation and Other GI palpation findings present ( Nontender) Auscultation: normal bowel sounds Extrem: General: No clubbing, No cyanosis and Yes pedal edema (Trace bilateral) Objective Data Labs CBC & Chem 7: 06/29/21 05:12 06/29/21 05:12 Labs: Laboratory Results - last 24 hr 06/28/21 06/28/21 06/29/21 17:58 23:40 05:12 WBC 10.9 H RBC 3.15 L Hgb 7.8 L Hct 26.8 L MCV 85.1 MCH 24.8 L MCHC 29.1 L RDW 16.7 H Plt Count 431 H MPV 10.0 Immature Gran % (Auto) 2.8 H Neut % (Auto) 80.5 H Lymph % (Auto) 7.7 L [place] % (Auto) 8.2 Eos % (Auto) 0.7 Baso % (Auto) 0.1 Lymph # (Auto) 0.8 L [place] # (Auto) 0.9 Eos # (Auto) 0.1 Baso # (Auto) 0.0 Abs Immat Gran (auto) 0.30 H Absolute Neuts (auto) 8.7 H Absolute Nucleated RBC 0.000 Nucleated RBC % (auto) 0.0 VBG pH VBG pCO2 VBG pO2 VBG HCO3 VBG O2 Saturation VBG Base Excess Sodium Potassium Chloride Carbon Dioxide Anion Gap BUN Creatinine Estim Creat Clear Calc Estimated GFR POC Glucose 226 H 124 H Random Glucose Calcium Phosphorus Magnesium Albumin 06/29/21 06/29/21 06/29/21 05:12 05:17 05:36 WBC RBC Hgb Hct MCV MCH MCHC RDW Plt Count MPV Immature Gran % (Auto) Neut % (Auto) Lymph % (Auto) [place] % (Auto) Eos % (Auto) Baso % (Auto) Lymph # (Auto) [place] # (Auto) Eos # (Auto) Baso # (Auto) Abs Immat Gran (auto) Absolute Neuts (auto) Absolute Nucleated RBC Nucleated RBC % (auto) VBG pH 7.42 VBG pCO2 59 VBG pO2 54 VBG HCO3 38 H VBG O2 Saturation 83.0 VBG Base Excess 12.4 Sodium 143 Potassium 4.5 Chloride 102 Carbon Dioxide 32 H Anion Gap 14 BUN 27 H Creatinine 0.65 Estim Creat Clear Calc 155.8 Estimated GFR > 60 POC Glucose 117 H Random Glucose 123 H Calcium 9.9 D Phosphorus 3.1 Magnesium 2.2 Albumin 4.2 D 06/29/21 12:22 WBC RBC Hgb Hct MCV MCH MCHC RDW Plt Count MPV Immature Gran % (Auto) Neut % (Auto) Lymph % (Auto) [place] % (Auto) Eos % (Auto) Baso % (Auto) Lymph # (Auto) [place] # (Auto) Eos # (Auto) Baso # (Auto) Abs Immat Gran (auto) Absolute Neuts (auto) Absolute Nucleated RBC Nucleated RBC % (auto) VBG pH VBG pCO2 VBG pO2 VBG HCO3 VBG O2 Saturation VBG Base Excess Sodium Potassium Chloride Carbon Dioxide Anion Gap BUN Creatinine Estim Creat Clear Calc Estimated GFR POC Glucose 153 H Random Glucose Calcium Phosphorus Magnesium Albumin Microbiology Microbiology Results: Microbiology 06/21/21 Unknown Urine Catheterized - [place] Catheter Urine Culture - Final Escherichia coli 06/21/21 13:06 Sputum - Suctioned Gram Stain - Final 06/21/21 13:06 Sputum - Suctioned Sputum Culture - Final Escherichia coli 06/20/21 15:30 Sputum - Suctioned Gram Stain - Final 06/20/21 15:30 Sputum - Suctioned Sputum Culture - Final Escherichia coli 06/15/21 00:51 Blood - Venous Blood Culture - Final No growth after 5 days. 06/15/21 00:50 Blood - Venous Blood Culture - Final No growth after 5 days. Progress Note: A&P Assessment and plan (1) Pneumomediastinum: Status: Acute (2) Cocaine abuse with intoxication: Status: Acute (3) Suppression of immune system subtherapeutic: Status: Acute (4) Acute respiratory distress syndrome (ARDS): Status: Acute (5) Acute hypoxemic respiratory failure: Status: Acute (6) IBD (inflammatory bowel disease): Status: Acute (7) Pneumonia due to COVID-19 virus: Status: Acute (8) CHF (congestive heart failure): Status: Acute Assessment and Plan: Assessment: 60-year-old gentleman with underlying immunosuppression admitted with hypoxia secondary to COVID-19 ARDS now requiring ventilatory support. Plan: Neuro: No acute issues. Cardiac: No acute issues. Underlying diastolic dysfunction. Pulmonary: Acute hypoxic respiratory failure secondary to COVID-19 ARDS and E.coli pneumonia now requiring ventilatory support. Waxing and waning subcutaneous emphysema with pneumomediastinum, no pneumothorax on x-ray, continue to minimize peak pressures. Renal: No acute issues. Endo: No acute issues. GI: No acute issues. Underlying inflammatory bowel disease, continue mesal amine. ID: COVID-19, does not qualify for baricitinib secondary to underlying immune suppression, treated with remdesivir, continue on dexamethasone. Heme/Onc: No acute issues. Underlying history of AML in remission. Psych: No acute issues. Miscellaneous: No acute issues. Prophylaxis: Lovenox, omeprazole Diet: tube feeds Critical care time spent: 45 minutes Quality Stroke Does the patient have a stroke diagnosis?: No VTE Prior VTE?: No VTE Risk Level:: Medical - moderate - high VTE Device Contraindication: N/A - Device Ordered VTE Drug Contraindication: N/A - Med Ordered
[2021-06-29] MEDS: Cisatracurium Besylate 100 MG in 0.9 % Sodium Chloride 40 ML 12.84 MG IVCONT ×2 (14:02→17:05)
[2021-06-29] MEDS: Insulin Lispro 100 UNIT/ML 3 ML VIAL SUBCUT ×2 (14:03→18:18)
[2021-06-29] MEDS: cefTRIAXone sodium 1 GM in 0.9 % Sodium Chloride 50 ML IV (14:08)
[2021-06-29 17:56] LABS: Glucose, Whole Blood 168 mg/dL (60-115)
[2021-06-30] VITALS (31 sets, daily range): BP systolic 91–176; BP diastolic 51–91; PULSE 56–105; RESP 12–30; TEMP 34.1–37.3; O2SAT 85–98; BMI 29.0
[2021-06-30] MEDS: 0.9 % Sodium Chloride Flush 3 ML SYRINGE IVFLUSH ×2 (00:04→23:52)
[2021-06-30 00:07] LABS: Glucose, Whole Blood 100 mg/dL (60-115)
[2021-06-30] MEDS: propofoL 1,000 MG/100 ML VIAL 34.53 MG IVCONT ×8 (00:41→23:47)
[2021-06-30] MEDS: propofoL 1,000 MG/100 ML VIAL 27.63 MG IVCONT (03:44)
[2021-06-30] MEDS: fentaNYL citrate/NS 1,000 MCG/100 ML PLAST..BAG 20 MCG IVCONT ×4 (04:10→20:37)
[2021-06-30] MEDS: Cisatracurium Besylate 100 MG in 0.9 % Sodium Chloride 40 ML 6.42 MG IVCONT (05:03)
[2021-06-30 05:37] LABS: VBG Base Excess 12.5 mmol/L; VBG HCO3 39 mmol/L (22-26); VBG pCO2 62 mmHg; VBG pO2 59 mmHg
[2021-06-30 05:38] LABS: Venous Blood Gas Refer to POC result
[2021-06-30 06:00] LABS: MANUAL DIFF FLAG NO
[2021-06-30 06:05] LABS: Basophils Percent Auto 0.1 % (0-2); Eosinophils Absolute Auto 0.1 X10*3/uL (0.0-0.4); Hematocrit 29.4 % (42.0-52.0); Hemoglobin 8.3 g/dl (14.0-18.0); Imm Gran Pct Auto 2.8 % (0.0-0.4); Mean Corpuscular HGB Conc 28.2 g/dl (31.0-36.0); Mean Corpuscular Hemoglobin 24.3 pg (27.0-33.0); Mean Corpuscular Volume 86.2 fL (80.0-98.0); Mean Platelet Volume 9.5 fL (9.4-12.4); Monocytes Absolute Auto 0.7 X10*3/uL (0.1-1.2); Monocytes Percent Auto 6.5 % (2-11); Neutrophils Absolute Auto 8.7 x10*3/uL (2.0-8.3); Neutrophils Percent Auto 80.6 % (45-73); Platelet Count 515 X10*3/uL (160-400); Red Blood Count 3.41 X10*6/uL (4.60-5.80); Red Cell Distribution Width 16.4 % (11.0-16.0); White Blood Count 10.8 X10*3/uL (4.8-10.8)
[2021-06-30 06:20] LABS: Albumin Level 3.7 g/dL (3.5-5.0); Anion Gap 14 (12-20); Blood Urea Nitrogen 30 mg/dL (9-16); Calcium 10.1 mg/dL (8.4-10.2); Carbon Dioxide 32 mmol/L (22-29); Chloride 103 mmol/L (96-108); Creatinine Clr Calc Pharmacy 173.4; Estimated Glomerular Filt Rate > 60; Glucose Random 89 mg/dL (60-115); Magnesium 2.2 mg/dL (1.6-2.6); Phosphorus 3.2 mg/dL (2.7-4.5); Potassium 4.4 mmol/L (3.3-5.1); Sodium 145 mmol/L (135-145)
[2021-06-30 06:29] LABS: Glucose, Whole Blood 90 mg/dL (60-115)
[2021-06-30] MEDS: cefTRIAXone sodium 1 GM in 0.9 % Sodium Chloride 50 ML IV (08:47)
[2021-06-30] MEDS: Chlorhexidine Gluc Oral Rinse 15 ML MOUTHWASH BUCCAL ×3 (08:47→20:37)
[2021-06-30] MEDS: Enoxaparin Sodium 40 MG/0.4 ML SYRINGE SUBCUT (08:47)
[2021-06-30] MEDS: dexAMETHasone sod phosphate 4 MG/ML VIAL 6 MG IVPUSH (08:47)
[2021-06-30] MEDS: Insulin Glargine,Hum.rec.anlog 100 UNIT/ML 10 ML VIAL 30 UNIT SUBCUT (08:48)
[2021-06-30] MEDS: Metoprolol Tartrate 5 MG/5 ML VIAL IVPUSH (09:47)
--- NOTE | 2021-06-30 11:29 | P.PNCC_ITS ---
Subjective Subjective Date of Service: 06/30/21 Interval History: 60-year-old gentleman with underlying history of AML in remission, Crohn's /UC on Stelara and methotrexate admitted on 06/15/2021 with hypoxia secondary to COVID-19. Treated with remdesivir and dexamethasone. Hospital course significant for progressive hypoxemia requiring transfer to intensive care unit, intubation, and ventilatory support on 06/20/2021, further complicated by development of pneumomediastinum with subcutaneous emphysema, but no pneumothorax, on 06/27/2021. No events overnight. FiO2 requirements remain high. Critical Care Time (minutes): 45 Physical Exam Vital Signs: Vital Signs: Last Vital Signs Temp 98.4 F 06/30/21 08:00 Pulse 66 06/30/21 11:00 Resp 21 H 06/30/21 11:00 BP 96/55 L 06/30/21 11:00 Pulse Ox 86 L 06/30/21 11:00 Oxygen Flow Rate 10 06/15/21 00:21 BMI result Body Mass Index 29.0 Const: General: no acute distress and other (Sedated on the vent, some subcutaneous emphysema around the neck) Eyes: Sclerae: sclerae normal EOM: EOMs intact bilaterally Neck: Neck: Yes no lymphadenopathy, Yes trachea midline and Yes supple Resp: Auscultation: crackles (Diffuse bilateral) Cardio: Rate: regular rate Rhythm: regular rhythm Heart sounds: no gallops, no murmurs and no rubs GI: Palpation (GI): Soft to palpation and Other GI palpation findings present ( Nontender) Auscultation: normal bowel sounds Extrem: General: No clubbing, No cyanosis and Yes pedal edema (Trace bilateral) Objective Data Labs CBC & Chem 7: 06/30/21 05:26 06/30/21 05:26 Labs: Laboratory Results - last 24 hr 06/29/21 06/29/21 06/30/21 12:22 17:52 00:03 WBC RBC Hgb Hct MCV MCH MCHC RDW Plt Count MPV Immature Gran % (Auto) Neut % (Auto) Lymph % (Auto) [place] % (Auto) Eos % (Auto) Baso % (Auto) Lymph # (Auto) [place] # (Auto) Eos # (Auto) Baso # (Auto) Abs Immat Gran (auto) Absolute Neuts (auto) Absolute Nucleated RBC Nucleated RBC % (auto) VBG pH VBG pCO2 VBG pO2 VBG HCO3 VBG O2 Saturation VBG Base Excess Sodium Potassium Chloride Carbon Dioxide Anion Gap BUN Creatinine Estim Creat Clear Calc Estimated GFR POC Glucose 153 H 168 H 100 Random Glucose Calcium Phosphorus Magnesium Albumin 06/30/21 06/30/21 06/30/21 05:26 05:26 05:31 WBC 10.8 RBC 3.41 L Hgb 8.3 L Hct 29.4 L MCV 86.2 MCH 24.3 L MCHC 28.2 L RDW 16.4 H Plt Count 515 H MPV 9.5 Immature Gran % (Auto) 2.8 H Neut % (Auto) 80.6 H Lymph % (Auto) 9.0 L [place] % (Auto) 6.5 Eos % (Auto) 1.0 Baso % (Auto) 0.1 Lymph # (Auto) 1.0 L [place] # (Auto) 0.7 Eos # (Auto) 0.1 Baso # (Auto) 0.0 Abs Immat Gran (auto) 0.30 H Absolute Neuts (auto) 8.7 H Absolute Nucleated RBC 0.000 Nucleated RBC % (auto) 0.0 VBG pH 7.40 VBG pCO2 62 VBG pO2 59 VBG HCO3 39 H VBG O2 Saturation 86.0 VBG Base Excess 12.5 Sodium 145 Potassium 4.4 Chloride 103 Carbon Dioxide 32 H Anion Gap 14 BUN 30 H Creatinine 0.58 Estim Creat Clear Calc 173.4 Estimated GFR > 60 POC Glucose Random Glucose 89 Calcium 10.1 Phosphorus 3.2 Magnesium 2.2 Albumin 3.7 06/30/21 05:57 WBC RBC Hgb Hct MCV MCH MCHC RDW Plt Count MPV Immature Gran % (Auto) Neut % (Auto) Lymph % (Auto) [place] % (Auto) Eos % (Auto) Baso % (Auto) Lymph # (Auto) [place] # (Auto) Eos # (Auto) Baso # (Auto) Abs Immat Gran (auto) Absolute Neuts (auto) Absolute Nucleated RBC Nucleated RBC % (auto) VBG pH VBG pCO2 VBG pO2 VBG HCO3 VBG O2 Saturation VBG Base Excess Sodium Potassium Chloride Carbon Dioxide Anion Gap BUN Creatinine Estim Creat Clear Calc Estimated GFR POC Glucose 90 Random Glucose Calcium Phosphorus Magnesium Albumin Microbiology Microbiology Results: Microbiology 06/21/21 Unknown Urine Catheterized - [facility] Catheter Urine Culture - Final Escherichia coli 06/21/21 13:06 Sputum - Suctioned Gram Stain - Final 06/21/21 13:06 Sputum - Suctioned Sputum Culture - Final Escherichia coli 06/20/21 15:30 Sputum - Suctioned Gram Stain - Final 06/20/21 15:30 Sputum - Suctioned Sputum Culture - Final Escherichia coli 06/15/21 00:51 Blood - Venous Blood Culture - Final No growth after 5 days. 06/15/21 00:50 Blood - Venous Blood Culture - Final No growth after 5 days. Progress Note: A&P Assessment and plan (1) Pneumomediastinum: Status: Acute (2) Cocaine abuse with intoxication: Status: Acute (3) Acute respiratory distress syndrome (ARDS): Status: Acute (4) Acute hypoxemic respiratory failure: Status: Acute (5) IBD (inflammatory bowel disease): Status: Acute (6) Pneumonia due to COVID-19 virus: Status: Acute (7) CHF (congestive heart failure): Status: Acute Assessment and Plan: Assessment: 60-year-old gentleman with underlying immunosuppression admitted with hypoxia secondary to COVID-19 ARDS now requiring ventilatory support. Plan: Neuro: No acute issues. Cardiac: No acute issues. Underlying diastolic dysfunction. Pulmonary: Acute hypoxic respiratory failure secondary to COVID-19 ARDS and E.coli pneumonia now requiring ventilatory support. Waxing and waning subcutaneous emphysema with pneumomediastinum, no pneumothorax, continue to minimize peak pressures. FiO2 requirements remain high. Renal: No acute issues. Endo: No acute issues. GI: No acute issues. Underlying inflammatory bowel disease. Mesalamine held secondary to paralytic use. ID: COVID-19, does not qualify for baricitinib secondary to underlying immune suppression, treated with remdesivir, continue on dexamethasone. Heme/Onc: No acute issues. Underlying history of AML in remission. Psych: No acute issues. Miscellaneous: No acute issues. Prophylaxis: Lovenox, omeprazole Diet: tube feeds Critical care time spent: 45 minutes Quality Stroke Does the patient have a stroke diagnosis?: No VTE Prior VTE?: No VTE Risk Level:: Medical - moderate - high VTE Device Contraindication: N/A - Device Ordered VTE Drug Contraindication: N/A - Med Ordered
[2021-06-30 12:11] LABS: Glucose, Whole Blood 115 mg/dL (60-115)
[2021-06-30 16:57] LABS: Glucose, Whole Blood 122 mg/dL (60-115)
[2021-07-01] VITALS (29 sets, daily range): BP systolic 96–146; BP diastolic 51–78; PULSE 64–109; RESP 9–29; TEMP 33–38.2; O2SAT 87–97; BMI 28.2
[2021-07-01 00:08] LABS: Glucose, Whole Blood 119 mg/dL (60-115)
[2021-07-01] MEDS: fentaNYL citrate/NS 1,000 MCG/100 ML PLAST..BAG 20 MCG IVCONT ×5 (01:26→20:17)
[2021-07-01] MEDS: propofoL 1,000 MG/100 ML VIAL 34.53 MG IVCONT ×7 (02:21→20:17)
[2021-07-01] MEDS: Metoprolol Tartrate 5 MG/5 ML VIAL IVPUSH ×4 (02:22→20:17)
[2021-07-01] MEDS: Midazolam HCl/PF 2 MG/2 ML VIAL IVPUSH ×2 (04:30→04:43)
[2021-07-01 05:36] LABS: VBG Base Excess 12.8 mmol/L; VBG HCO3 37 mmol/L (22-26); VBG pCO2 47 mmHg; VBG pO2 44 mmHg
[2021-07-01 05:50] LABS: Venous Blood Gas Refer to POC result
[2021-07-01 06:11] LABS: MANUAL DIFF FLAG NO
[2021-07-01 06:21] LABS: Basophils Percent Auto 0.1 % (0-2); Eosinophils Absolute Auto 0.1 X10*3/uL (0.0-0.4); Eosinophils Percent Auto 0.8 % (0-4); Hematocrit 28.6 % (42.0-52.0); Hemoglobin 8.2 g/dl (14.0-18.0); Imm Gran Pct Auto 2.1 % (0.0-0.4); Lymphocytes Percent Auto 6.7 % (20-40); Mean Corpuscular HGB Conc 28.7 g/dl (31.0-36.0); Mean Corpuscular Hemoglobin 24.3 pg (27.0-33.0); Mean Corpuscular Volume 84.6 fL (80.0-98.0); Mean Platelet Volume 9.6 fL (9.4-12.4); Monocytes Absolute Auto 0.7 X10*3/uL (0.1-1.2); Neutrophils Absolute Auto 12.3 x10*3/uL (2.0-8.3); Neutrophils Percent Auto 85.3 % (45-73); Platelet Count 583 X10*3/uL (160-400); Red Blood Count 3.38 X10*6/uL (4.60-5.80); Red Cell Distribution Width 16.6 % (11.0-16.0); White Blood Count 14.5 X10*3/uL (4.8-10.8)
[2021-07-01 06:33] LABS: Glucose, Whole Blood 141 mg/dL (60-115)
[2021-07-01 06:36] LABS: Albumin Level 3.2 g/dL (3.5-5.0); Anion Gap 12 (12-20); Blood Urea Nitrogen 33 mg/dL (9-16); Calcium 9.6 mg/dL (8.4-10.2); Carbon Dioxide 34 mmol/L (22-29); Chloride 104 mmol/L (96-108); Creatinine Clr Calc Pharmacy 162.8; Estimated Glomerular Filt Rate > 60; Glucose Random 128 mg/dL (60-115); Phosphorus 2.3 mg/dL (2.7-4.5); Potassium 3.7 mmol/L (3.3-5.1); Sodium 146 mmol/L (135-145)
[2021-07-01] MEDS: cefTRIAXone sodium 1 GM in 0.9 % Sodium Chloride 50 ML IV (07:47)
[2021-07-01] MEDS: Chlorhexidine Gluc Oral Rinse 15 ML MOUTHWASH BUCCAL ×3 (07:48→20:17)
[2021-07-01] MEDS: Insulin Glargine,Hum.rec.anlog 100 UNIT/ML 10 ML VIAL 30 UNIT SUBCUT (07:48)
[2021-07-01] MEDS: dexAMETHasone sod phosphate 4 MG/ML VIAL 6 MG IVPUSH (07:49)
[2021-07-01] MEDS: Enoxaparin Sodium 40 MG/0.4 ML SYRINGE SUBCUT (11:02)
[2021-07-01] MEDS: Albumin Human 25 % 100 ML IV ×3 (11:03→20:17)
[2021-07-01 11:42] LABS: Glucose, Whole Blood 231 mg/dL (60-115)
[2021-07-01] MEDS: Insulin Lispro 100 UNIT/ML 3 ML VIAL SUBCUT ×2 (11:42→17:56)
--- NOTE | 2021-07-01 11:56 | PM.CCPN ---
Subjective Subjective Date of Service: 07/01/21 Interval History: ICU day 12 for acute hypoxic respiratory failure, COVID-19 ARDS, pneumomediastinum. 60-year-old gentleman with underlying history of AML in remission, Crohn's /UC on Stelara and methotrexate admitted on 06/15/2021 with hypoxia secondary to COVID-19. Treated with remdesivir and dexamethasone. Hospital course significant for progressive hypoxemia requiring transfer to intensive care unit, intubation, and ventilatory support on 06/20/2021, further complicated by development of pneumomediastinum with subcutaneous emphysema, but no pneumothorax, on 06/27/2021. No events overnight. FiO2 requirements continue to oscillate. Intermittently requires paralytic agent. Critical Care Time (minutes): 45 Physical Exam Vital Signs: Vital Signs: Last Vital Signs Temp 100.8 F H 07/01/21 11:00 Pulse 102 H 07/01/21 11:00 Resp 24 H 07/01/21 11:00 BP 126/65 07/01/21 11:00 Pulse Ox 95 07/01/21 11:00 Oxygen Flow Rate 10 06/15/21 00:21 BMI result Body Mass Index 28.2 Const: General: no acute distress and other (Sedated on the vent, mild subcutaneous emphysema around neck/left shoulder) Eyes: Sclerae: sclerae normal EOM: EOMs intact bilaterally Neck: Neck: Yes no lymphadenopathy, Yes trachea midline and Yes supple Resp: Auscultation: crackles (Bibasilar) Cardio: Rate: regular rate Rhythm: regular rhythm Heart sounds: no gallops, no murmurs and no rubs GI: Palpation (GI): Soft to palpation and Other GI palpation findings present ( Nontender) Auscultation: normal bowel sounds Extrem: General: No clubbing, No cyanosis and Yes pedal edema (Trace bilateral) Objective Data Labs CBC & Chem 7: 07/01/21 05:30 07/01/21 05:30 Labs: Laboratory Results - last 24 hr 06/30/21 06/30/21 06/30/21 12:06 16:53 23:50 WBC RBC Hgb Hct MCV MCH MCHC RDW Plt Count MPV Immature Gran % (Auto) Neut % (Auto) Lymph % (Auto) [place] % (Auto) Eos % (Auto) Baso % (Auto) Lymph # (Auto) [place] # (Auto) Eos # (Auto) Baso # (Auto) Abs Immat Gran (auto) Absolute Neuts (auto) Absolute Nucleated RBC Nucleated RBC % (auto) VBG pH VBG pCO2 VBG pO2 VBG HCO3 VBG O2 Saturation VBG Base Excess Sodium Potassium Chloride Carbon Dioxide Anion Gap BUN Creatinine Estim Creat Clear Calc Estimated GFR POC Glucose 115 122 H 119 H Random Glucose Calcium Phosphorus Magnesium Albumin 07/01/21 07/01/21 07/01/21 05:30 05:30 05:30 WBC 14.5 H RBC 3.38 L Hgb 8.2 L Hct 28.6 L MCV 84.6 MCH 24.3 L MCHC 28.7 L RDW 16.6 H Plt Count 583 H MPV 9.6 Immature Gran % (Auto) 2.1 H Neut % (Auto) 85.3 H Lymph % (Auto) 6.7 L [place] % (Auto) 5.0 Eos % (Auto) 0.8 Baso % (Auto) 0.1 Lymph # (Auto) 1.0 L [place] # (Auto) 0.7 Eos # (Auto) 0.1 Baso # (Auto) 0.0 Abs Immat Gran (auto) 0.30 H Absolute Neuts (auto) 12.3 H Absolute Nucleated RBC 0.000 Nucleated RBC % (auto) 0.0 VBG pH 7.50 H VBG pCO2 47 VBG pO2 44 VBG HCO3 37 H VBG O2 Saturation 72.0 VBG Base Excess 12.8 Sodium 146 H Potassium 3.7 Chloride 104 Carbon Dioxide 34 H Anion Gap 12 BUN 33 H Creatinine 0.61 Estim Creat Clear Calc 162.8 Estimated GFR > 60 POC Glucose Random Glucose 128 H D Calcium 9.6 Phosphorus 2.3 L Magnesium 2.0 Albumin 3.2 L 07/01/21 07/01/21 06:21 11:11 WBC RBC Hgb Hct MCV MCH MCHC RDW Plt Count MPV Immature Gran % (Auto) Neut % (Auto) Lymph % (Auto) [place] % (Auto) Eos % (Auto) Baso % (Auto) Lymph # (Auto) [place] # (Auto) Eos # (Auto) Baso # (Auto) Abs Immat Gran (auto) Absolute Neuts (auto) Absolute Nucleated RBC Nucleated RBC % (auto) VBG pH VBG pCO2 VBG pO2 VBG HCO3 VBG O2 Saturation VBG Base Excess Sodium Potassium Chloride Carbon Dioxide Anion Gap BUN Creatinine Estim Creat Clear Calc Estimated GFR POC Glucose 141 H 231 H Random Glucose Calcium Phosphorus Magnesium Albumin Microbiology Microbiology Results: Microbiology 06/21/21 Unknown Urine Catheterized - [facility] Catheter Urine Culture - Final Escherichia coli 06/21/21 13:06 Sputum - Suctioned Gram Stain - Final 06/21/21 13:06 Sputum - Suctioned Sputum Culture - Final Escherichia coli 06/20/21 15:30 Sputum - Suctioned Gram Stain - Final 06/20/21 15:30 Sputum - Suctioned Sputum Culture - Final Escherichia coli 06/15/21 00:51 Blood - Venous Blood Culture - Final No growth after 5 days. 06/15/21 00:50 Blood - Venous Blood Culture - Final No growth after 5 days. Progress Note: A&P Assessment and plan (1) Pneumomediastinum: Status: Acute (2) Acute respiratory distress syndrome (ARDS): Status: Acute (3) Acute hypoxemic respiratory failure: Status: Acute (4) IBD (inflammatory bowel disease): Status: Acute (5) Pneumonia due to COVID-19 virus: Status: Acute (6) CHF (congestive heart failure): Status: Acute (7) Diabetes 1.5, managed as type 1: Status: Acute Assessment and Plan: Assessment: 60-year-old gentleman with underlying immunosuppression admitted with hypoxia secondary to COVID-19 ARDS now requiring ventilatory support. Plan: Neuro: No acute issues. Cardiac: No acute issues. Underlying diastolic dysfunction. Pulmonary: Acute hypoxic respiratory failure secondary to COVID-19 ARDS and E.coli pneumonia now requiring ventilatory support. Waxing and waning subcutaneous emphysema with pneumomediastinum, no pneumothorax, continue to minimize peak pressures. FiO2 requirements remain high. Renal: No acute issues. Endo: No acute issues. GI: No acute issues. Underlying inflammatory bowel disease. Continue mesalamine. ID: COVID-19, does not qualify for baricitinib secondary to underlying immune suppression, treated with remdesivir, continue on dexamethasone. Completed ceftriaxone for E. Coli pneumonia. Heme/Onc: No acute issues. Underlying history of AML in remission. Psych: No acute issues. Miscellaneous: No acute issues. Prophylaxis: Lovenox, omeprazole Diet: tube feeds Critical care time spent: 45 minutes Quality Stroke Does the patient have a stroke diagnosis?: No VTE Prior VTE?: No VTE Risk Level:: Medical - moderate - high VTE Device Contraindication: N/A - Device Ordered VTE Drug Contraindication: N/A - Med Ordered
--- NOTE | 2021-07-01 16:33 | PC.NURSE ---
Start of shift vent settings ACPC rate 16, Pi 24, PEEP 5, FiO2 100%, actually RR mid 20's w/ PP 28-32. Pi was lowered to 20 per MD as pt's vbg alkalotic this AM. Suction canister was full and changed, start of shift adventitious lung sounds auscultated all lung lobes inspiratory rhonchi. After frequent suctioning, pt's lung sounds have significantly improved, just FC in the bases bilat, ultimately FiO2 was lowered to 60%, RR now 16-17 and less labored. Will continue to monitor. Bed locked and in lowest position.
[2021-07-01 18:00] LABS: Glucose, Whole Blood 266 mg/dL (60-115)
[2021-07-01] MEDS: propofoL 1,000 MG/100 ML VIAL 24.17 MG IVCONT (23:38)
[2021-07-01] MEDS: 0.9 % Sodium Chloride Flush 3 ML SYRINGE IVFLUSH (23:55)
[2021-07-01 23:58] LABS: Glucose, Whole Blood 81 mg/dL (60-115)
[2021-07-02] VITALS (32 sets, daily range): BP systolic 92–149; BP diastolic 47–78; PULSE 62–107; RESP 16–87; TEMP 34–38; O2SAT 89–99; BMI 29.0
[2021-07-02] MEDS: fentaNYL citrate/NS 1,000 MCG/100 ML PLAST..BAG 20 MCG IVCONT ×5 (01:41→22:10)
[2021-07-02] MEDS: Metoprolol Tartrate 5 MG/5 ML VIAL IVPUSH ×4 (02:12→20:20)
[2021-07-02] MEDS: Midazolam HCl/PF 2 MG/2 ML VIAL IVPUSH ×3 (02:13→07:54)
[2021-07-02] MEDS: Albumin Human 25 % 100 ML IV (02:13)
[2021-07-02] MEDS: propofoL 1,000 MG/100 ML VIAL 34.53 MG IVCONT ×8 (03:22→23:20)
--- NOTE | 2021-07-02 03:50 | PC.NURSE ---
Addendum entered by Demarco Maharaj RN 07/02/21 05:55: SR BBB prolonged QTc on tele Original Note: Assumed care from CHRIS Rai about 19:00. Patient sedated on gtts of fenanyl and propofol; attempted to titrate these down from 200 and 50, respectively, to 175 and 35 progressively. Seemed to tolerate the combination of 175 fentanyl and 40 propofol for a time, but soon after titration of propfol to 35, was dysynchronous, coughing, desatting to 86-7%, increased work of breathing as evidenced by accessory and abdominal muscle use, and tachypnea in 29-35 RPM range. To re-gain appropriate ventilatory status, was re-titrated up to 200 fentanyl and 50 propofol, and given PRN versed 2 mg about 2 am, with good effect. Patient is now synchronous and has un-increased work of breathing. He continues intubated with a #8 ETT, which is 25 cm at the lip. PC settings with rate 16; inspiratory pressure 20; PEEP 5; FiO2 was initially 60%, was gradually titirated up as high as 100%, and then has been weaned back down to 80% at this time. Patient with copious inline secretions, thin, cream to clear colored, clears a lot of secretions around coughing episodes. LS with expiratory rhonchi to clear in uppers. Distant heart sounds. BP has been mostly elevated, with SBP 130-145, and getting scheduled metoprolol with good effect. Continues in sinus rhythm on telemetry with prolonged QTc interval. mild edema 1+ to bilateral lower legs, 2+ to bilateral hands, 1+ to hips and sacral area. [place] outputs with some sediment in urine, dark yellow / gracia color, and about 50 ccs per hour. Continues with rectal tube, mild leaking, liquid/loose light brown stool. Skin with no new changes, continues to have abrasion to right lower back with foam, abrasion to right ankle open to air, avery-anal stage 2; coccygeal stage 2.
[2021-07-02 04:24] LABS: VBG Base Excess 12.5 mmol/L; VBG HCO3 36 mmol/L (22-26); VBG pCO2 44 mmHg; VBG pH 7.52 (7.32-7.43); VBG pO2 50 mmHg
[2021-07-02 04:26] LABS: Venous Blood Gas Refer to POC result
[2021-07-02 04:32] LABS: MANUAL DIFF FLAG NO
[2021-07-02 04:33] LABS: Basophils Percent Auto 0.1 % (0-2); Eosinophils Absolute Auto 0.1 X10*3/uL (0.0-0.4); Hematocrit 24.4 % (42.0-52.0); Hemoglobin 7.2 g/dl (14.0-18.0); Imm Gran Pct Auto 1.7 % (0.0-0.4); Lymphocytes Absolute Auto 1.1 X10*3/uL (1.2-4.9); Lymphocytes Percent Auto 9.2 % (20-40); Mean Corpuscular HGB Conc 29.5 g/dl (31.0-36.0); Mean Corpuscular Hemoglobin 25.2 pg (27.0-33.0); Mean Corpuscular Volume 85.3 fL (80.0-98.0); Mean Platelet Volume 9.2 fL (9.4-12.4); Monocytes Absolute Auto 0.6 X10*3/uL (0.1-1.2); Monocytes Percent Auto 5.3 % (2-11); NRBC Pct Auto 0.2 /100WBC (0.0-0.2); Neutrophils Absolute Auto 9.6 x10*3/uL (2.0-8.3); Neutrophils Percent Auto 82.7 % (45-73); Platelet Count 444 X10*3/uL (160-400); Red Blood Count 2.86 X10*6/uL (4.60-5.80); Red Cell Distribution Width 17.1 % (11.0-16.0); White Blood Count 11.6 X10*3/uL (4.8-10.8)
[2021-07-02 04:52] LABS: Albumin Level 3.8 g/dL (3.5-5.0); Anion Gap 12 (12-20); Blood Urea Nitrogen 24 mg/dL (9-16); Calcium 9.6 mg/dL (8.4-10.2); Carbon Dioxide 32 mmol/L (22-29); Chloride 106 mmol/L (96-108); Creatinine Clr Calc Pharmacy 165.5; Estimated Glomerular Filt Rate > 60; Glucose Random 132 mg/dL (60-115); Magnesium 1.9 mg/dL (1.6-2.6); Phosphorus 3.4 mg/dL (2.7-4.5); Potassium 3.6 mmol/L (3.3-5.1); Sodium 146 mmol/L (135-145)
[2021-07-02] MEDS: Insulin Lispro 100 UNIT/ML 3 ML VIAL SUBCUT ×3 (05:52→18:03)
[2021-07-02 05:53] LABS: Glucose, Whole Blood 163 mg/dL (60-115)
[2021-07-02] MEDS: Insulin Glargine,Hum.rec.anlog 100 UNIT/ML 10 ML VIAL 30 UNIT SUBCUT (07:26)
[2021-07-02] MEDS: dexAMETHasone sod phosphate 4 MG/ML VIAL IVPUSH (07:26)
[2021-07-02] MEDS: 0.9 % Sodium Chloride Flush 3 ML SYRINGE IVFLUSH ×2 (07:26→17:39)
[2021-07-02] MEDS: Chlorhexidine Gluc Oral Rinse 15 ML MOUTHWASH BUCCAL ×3 (07:26→20:20)
[2021-07-02] MEDS: Enoxaparin Sodium 40 MG/0.4 ML SYRINGE SUBCUT (11:04)
[2021-07-02] MEDS: OLANZapine 5 MG TABLET PO ×2 (11:04→20:20)
[2021-07-02] MEDS: methylPREDNISolone Sod Succ 125 MG/2 ML VIAL 80 MG IVPUSH ×2 (11:04→22:06)
--- NOTE | 2021-07-02 11:10 | MHC.CLN ---
F/U TF REMAINS INTUBATED AND SEDATED PT RECEIVING VITAL 1.5 AT MAX GOAL RATE 45 ML/HR WITH 30 ML OF PROSOURCE TID AND 120 ML FREE WATER FLUSHES Q 4 HRS PROVIDES 1800KCALS (2712 KCALS WITH SEDATION; 27 KCALS/KG BASED ON CMW), 118 G TOTAL PROTEIN (1.2 G/KG BASED ON CMW), 1545 ML TOTAL WATER FROM FORMULA AND FLUSHES (17.4 ML/KG BASED ON IBW). TOELRATING WELL PER NSG; PT WITH RECTAL TUBE DRAINING LOOSE STOOLS ALTHOUGH PT WITH HX ULCERATIVE COLITIS/CROHN'S DZ PT WITH NEW STAGE 2 COCCYX WOUND AND PERINEAL PROSOURCE TID IN PLACE WILL PROMOTE WOUND HEALING MONITOR TOLERANCE, RESIDUALS AND LYTES
[2021-07-02 11:31] LABS: Glucose, Whole Blood 226 mg/dL (60-115)
[2021-07-02 11:47] LABS: Glucose, Whole Blood 259 mg/dL (60-115)
[2021-07-02 17:47] LABS: Glucose, Whole Blood 345 mg/dL (60-115)
--- NOTE | 2021-07-02 21:47 | PM.CCPN ---
Subjective Subjective Date of Service: 07/02/21 Interval History: ? Mr. Jamari Johnson was transferred to ICU on Jun 19 bec of acute encephalopathy in the setting of hypoxemic respiratory failure 2? COVID pneumonia. The patient is a 60 yo M with PMHx of AML in remission, Crohn's/UC on Stelara and methotrexate. The patient had a COVID KRISTOPHER negative on 06/02/21. ?Previously had COVID vaccine 2 shots. Presented to the ED on Jun 15 with SOB for a few days.? COVID positive.? [My estimated symptom onset date Jun 09.)? CXR showed severe diffuse bilateral patchy airspace opacities.? Initial DDimer 338, CRP 10.? CTPA showed severe bilateral COVID pneumonia.? There is no PE, normal right heart, normal pulmonary arteries, left ventricle looked a little dilated. Treated with remdesivir and dexamethasone.? Hospital course significant for progressive hypoxemia.? On Jun 19, reported to have snorted cocaine brought in by family, culminating in an episode of acute delirium/encephalopathy that required transfer to intensive care unit and tracheal intubation.? (Urine tox screen early June 20 was positive for cocaine.) ?Urine and sputum from Jun 21 grew out a sensitive Ecoli.? Further complicated by development of pneumomediastinum with subcutaneous emphysema on Jun 27, but no pneumothorax. Since then FiO2 requirements have fluctuated.? PEEP level kept at 5cm to prevent further barotrauma.? Intermittently required paralytic agent.? Today, sedated on propofol 50ug, fentanyl 200 ug, with prn Versed 2mg bec of ventilatory dysynchrony.? Still has mild abdom paradox and dysynchrony.? On PC 16, 20/5, 80%, RR is 16, Vt 500+cc, Ve 8.5L, PIP 24, Sat 93, ETCO2 30.? CVBG this morning showed 7.52/44/+12.? HR 60s, SR.? BP 100/54.? Tmax 100.4. U/O averaging > 40cc/hr. LABORATORY DATA:? Below.? Notably,? white count down.? Hemoglobin down to 7.2.? BUN/creatinine down to 24/0.6.? POC running 160 -260.? Last D-dimer on June 25 was 8385, down from 10,763. Last CXR Jun 29:? Read by radiologist as increasing pneumomediastinum.? Small left pneumothorax can?t be excluded. IMPRESSION: 1. Underlying immunosuppression secondary to AML in remission, and Crohn's/UC previously on Stelara mab and methotrexate.? Continue mesalamine. 2. Severe bilateral COVID pneumonia.? Symptom onset date maybe around Jun 09.? On Decadron now.? Course complicated by high DDimer and pneumomediastinum.? I?ll change his Decadron to Solumedrol 80mg bid.? Up his Lovenox to 40 mg bid.? Add Vit C, Vit D, ASA, thiamine, melatonin, sprironolactone 100 mg bid, fluvoxamine 100mg bid, Atoravastin 80 mg daily.? Did not qualify for baricitinib secondary to underlying immune suppression. 3. Bilateral pulmonary infiltrates with ARDS.? Secondary to above. 4. Acute hypoxemic respiratory failure.? Secondary to above.? Added Zyprexa to help control WOB. 5. Barotrauma, with pneumomediastinum and SQ emphysema.? Carries a poor prognosis in COVID patients.? Continue to minimize peak pressures.? Follow serial CXRs. 6. ID: ?The sputum from Jun 20 that grew out Ecoli is somewhat equivocal, given the polymicrobial Gram stain.? But he got a full coarse of ceftriaxone anyway. 7. DM.? Changed Lantus to 25u bid. 8. Metabolic alkalosis.? I?ll give a few doses of Diamox. 9. Hypernatremia.? Add water flushes. 10. Nutrition.? On Vital 1.5 (bec of the Crohn?s) at goal rate, plus propofol. Prognosis is grave. Critical Care Time (including extended d/w Dr. Felix, full chart rev, and hosp course summary): 100+ min. Critical Care Time (minutes): 100 Physical Exam Vital Signs: Vital Signs: Last Vital Signs Temp 99.1 F 07/02/21 21:00 Pulse 62 07/02/21 21:00 Resp 16 07/02/21 21:00 BP 101/50 L 07/02/21 21:00 Pulse Ox 92 07/02/21 21:00 Oxygen Flow Rate 10 06/15/21 00:21 BMI result Body Mass Index 29.0 Objective Data Labs CBC & Chem 7: 07/02/21 04:12 07/02/21 04:12 Labs: Laboratory Results - last 24 hr 07/01/21 07/02/21 07/02/21 23:47 04:12 04:12 WBC 11.6 H RBC 2.86 L Hgb 7.2 L Hct 24.4 L MCV 85.3 MCH 25.2 L MCHC 29.5 L RDW 17.1 H Plt Count 444 H MPV 9.2 L Immature Gran % (Auto) 1.7 H Neut % (Auto) 82.7 H Lymph % (Auto) 9.2 L [place] % (Auto) 5.3 Eos % (Auto) 1.0 Baso % (Auto) 0.1 Lymph # (Auto) 1.1 L [place] # (Auto) 0.6 Eos # (Auto) 0.1 Baso # (Auto) 0.0 Abs Immat Gran (auto) 0.20 H Absolute Neuts (auto) 9.6 H Absolute Nucleated RBC 0.020 H Nucleated RBC % (auto) 0.2 VBG pH VBG pCO2 VBG pO2 VBG HCO3 VBG O2 Saturation VBG Base Excess Sodium 146 H Potassium 3.6 Chloride 106 Carbon Dioxide 32 H Anion Gap 12 BUN 24 H Creatinine 0.60 Estim Creat Clear Calc 165.5 Estimated GFR > 60 POC Glucose 81 Random Glucose 132 H Calcium 9.6 Phosphorus 3.4 Magnesium 1.9 Albumin 3.8 07/02/21 07/02/21 07/02/21 04:17 05:45 11:07 WBC RBC Hgb Hct MCV MCH MCHC RDW Plt Count MPV Immature Gran % (Auto) Neut % (Auto) Lymph % (Auto) [place] % (Auto) Eos % (Auto) Baso % (Auto) Lymph # (Auto) [place] # (Auto) Eos # (Auto) Baso # (Auto) Abs Immat Gran (auto) Absolute Neuts (auto) Absolute Nucleated RBC Nucleated RBC % (auto) VBG pH 7.52 H VBG pCO2 44 VBG pO2 50 VBG HCO3 36 H VBG O2 Saturation 80.0 VBG Base Excess 12.5 Sodium Potassium Chloride Carbon Dioxide Anion Gap BUN Creatinine Estim Creat Clear Calc Estimated GFR POC Glucose 163 H 226 H Random Glucose Calcium Phosphorus Magnesium Albumin 07/02/21 07/02/21 11:44 17:43 WBC RBC Hgb Hct MCV MCH MCHC RDW Plt Count MPV Immature Gran % (Auto) Neut % (Auto) Lymph % (Auto) [place] % (Auto) Eos % (Auto) Baso % (Auto) Lymph # (Auto) [place] # (Auto) Eos # (Auto) Baso # (Auto) Abs Immat Gran (auto) Absolute Neuts (auto) Absolute Nucleated RBC Nucleated RBC % (auto) VBG pH VBG pCO2 VBG pO2 VBG HCO3 VBG O2 Saturation VBG Base Excess Sodium Potassium Chloride Carbon Dioxide Anion Gap BUN Creatinine Estim Creat Clear Calc Estimated GFR POC Glucose 259 H 345 H Random Glucose Calcium Phosphorus Magnesium Albumin Microbiology Microbiology Results: Microbiology 06/21/21 Unknown Urine Catheterized - [facility] Catheter Urine Culture - Final Escherichia coli 06/21/21 13:06 Sputum - Suctioned Gram Stain - Final 06/21/21 13:06 Sputum - Suctioned Sputum Culture - Final Escherichia coli 06/20/21 15:30 Sputum - Suctioned Gram Stain - Final 06/20/21 15:30 Sputum - Suctioned Sputum Culture - Final Escherichia coli 06/15/21 00:51 Blood - Venous Blood Culture - Final No growth after 5 days. 06/15/21 00:50 Blood - Venous Blood Culture - Final No growth after 5 days. Quality Stroke Does the patient have a stroke diagnosis?: No VTE Prior VTE?: No VTE Risk Level:: Medical - moderate - high VTE Device Contraindication: N/A - Device Ordered VTE Drug Contraindication: N/A - Med Ordered Critical Care Time Critical Care Time (minutes): 90
[2021-07-02] MEDS: Insulin Glargine,Hum.rec.anlog 100 UNIT/ML 10 ML VIAL 25 UNIT SUBCUT (22:07)
[2021-07-03] VITALS (31 sets, daily range): BP systolic 95–155; BP diastolic 45–77; PULSE 53–88; RESP 16–24; TEMP 34.1–37.7; O2SAT 87–97; BMI 28.9
[2021-07-03] MEDS: 0.9 % Sodium Chloride Flush 3 ML SYRINGE IVFLUSH ×4 (00:29→22:19)
[2021-07-03] MEDS: Insulin Lispro 100 UNIT/ML 3 ML VIAL SUBCUT (00:55)
[2021-07-03] MEDS: propofoL 1,000 MG/100 ML VIAL 34.53 MG IVCONT ×3 (01:55→07:38)
[2021-07-03 01:56] LABS: Glucose, Whole Blood 290 mg/dL (60-115)
[2021-07-03] MEDS: Metoprolol Tartrate 5 MG/5 ML VIAL IVPUSH ×2 (02:55→19:58)
[2021-07-03] MEDS: fentaNYL citrate/NS 1,000 MCG/100 ML PLAST..BAG 20 MCG IVCONT ×3 (02:56→13:52)
[2021-07-03 05:24] LABS: VBG Base Excess 12.7 mmol/L; VBG HCO3 39 mmol/L (22-26); VBG pCO2 62 mmHg; VBG pO2 49 mmHg
[2021-07-03 05:26] LABS: Venous Blood Gas Refer to POC result
[2021-07-03 05:50] LABS: Hematocrit 23.8 % (42.0-52.0); Mean Corpuscular HGB Conc 28.6 g/dl (31.0-36.0); Mean Corpuscular Hemoglobin 24.5 pg (27.0-33.0); Mean Corpuscular Volume 85.9 fL (80.0-98.0); Mean Platelet Volume 9.8 fL (9.4-12.4); Platelet Count 445 X10*3/uL (160-400); Red Blood Count 2.77 X10*6/uL (4.60-5.80); Red Cell Distribution Width 16.4 % (11.0-16.0); White Blood Count 8.8 X10*3/uL (4.8-10.8)
[2021-07-03 05:55] LABS: Hemoglobin 6.8 g/dl (14.0-18.0)
[2021-07-03 05:58] LABS: D Dimer High Sensitivity 2576 NG/ML
[2021-07-03 06:16] LABS: OBS Int Ctl Valid YES; OBS1 NEGATIVE (NEGATIVE)
[2021-07-03 06:17] LABS: Alanine Aminotransferase 14 U/L (0-40); Albumin Level 3.4 g/dL (3.5-5.0); Alkaline Phosphatase 71 U/L (39-117); Anion Gap 10 (12-20); Aspartate Amino Transferase 10 U/L (5-37); Bilirubin Total 0.3 mg/dL (0.0-1.0); Blood Urea Nitrogen 30 mg/dL (9-16); C Reactive Protein 14.92 mg/dL (< or = 0.50); Calcium 9.4 mg/dL (8.4-10.2); Carbon Dioxide 34 mmol/L (22-29); Chloride 105 mmol/L (96-108); Creatinine Clr Calc Pharmacy 147.7; Estimated Glomerular Filt Rate > 60; Glucose Random 277 mg/dL (60-115); Magnesium 2.2 mg/dL (1.6-2.6); Phosphorus 3.8 mg/dL (2.7-4.5); Potassium 4.8 mmol/L (3.3-5.1); Sodium 144 mmol/L (135-145)
[2021-07-03 06:34] LABS: Ferritin 251 ng/mL (20-250)
[2021-07-03 07:25] LABS: Procalcitonin 0.15 ng/mL
[2021-07-03] MEDS: acetaZOLAMIDE sodium 500 MG VIAL 250 MG IVPUSH ×2 (07:29→19:57)
[2021-07-03] MEDS: Chlorhexidine Gluc Oral Rinse 15 ML MOUTHWASH BUCCAL ×3 (07:29→19:56)
[2021-07-03] MEDS: Enoxaparin Sodium 40 MG/0.4 ML SYRINGE SUBCUT ×2 (07:29→19:58)
[2021-07-03] MEDS: Insulin Glargine,Hum.rec.anlog 100 UNIT/ML 10 ML VIAL 25 UNIT SUBCUT (07:30)
[2021-07-03] MEDS: Ascorbic Acid 500 MG TABLET 1000 MG G-TUBE ×3 (07:30→19:59)
[2021-07-03] MEDS: fluvoxaMINE Maleate 50 MG TABLET 100 MG G-TUBE ×2 (07:30→19:59)
[2021-07-03] MEDS: Spironolactone 25 MG TABLET 100 MG G-TUBE ×2 (07:30→19:58)
[2021-07-03] MEDS: Aspirin 325 MG TABLET G-TUBE (07:30)
[2021-07-03] MEDS: OLANZapine 5 MG TABLET PO ×2 (07:31→19:59)
[2021-07-03] MEDS: Thiamine HCL 100 MG TABLET 200 MG G-TUBE ×2 (07:31→19:59)
[2021-07-03] MEDS: Cholecalciferol (Vitamin D3) 25 MCG TABLET 50 MCG G-TUBE (07:31)
[2021-07-03] MEDS: Atorvastatin Calcium 80 MG TABLET G-TUBE (07:31)
[2021-07-03 08:27] LABS: Lactate Dehydrogenase 233 U/L (118-273)
[2021-07-03] MEDS: methylPREDNISolone Sod Succ 125 MG/2 ML VIAL 80 MG IVPUSH ×2 (11:04→22:19)
[2021-07-03] MEDS: Insulin Lispro 100 UNIT/ML 3 ML VIAL 10 UNIT SUBCUT (11:05)
[2021-07-03] MEDS: propofoL 1,000 MG/100 ML VIAL 20.72 MG IVCONT ×4 (11:05→23:30)
[2021-07-03 17:40] LABS: Glucose, Whole Blood 329 mg/dL (60-115)
[2021-07-03] MEDS: Insulin Lispro 100 UNIT/ML 3 ML VIAL 20 UNIT SUBCUT (17:40)
[2021-07-03 19:33] LABS: Glucose, Whole Blood 308 mg/dL (60-115)
[2021-07-03] MEDS: Insulin Lispro 100 UNIT/ML 3 ML VIAL 30 UNIT SUBCUT (19:57)
[2021-07-03] MEDS: fentaNYL citrate/NS 1,000 MCG/100 ML PLAST..BAG 15 MCG IVCONT (19:58)
[2021-07-03] MEDS: Melatonin 3 MG TABLET 9 MG G-TUBE (19:59)
[2021-07-03] MEDS: Insulin Glargine,Hum.rec.anlog 100 UNIT/ML 10 ML VIAL 50 UNIT SUBCUT (20:37)
[2021-07-03 21:56] LABS: Glucose, Whole Blood 218 mg/dL (60-115)
--- NOTE | 2021-07-03 22:27 | PM.CCPN ---
Subjective Subjective Date of Service: 07/03/21 Interval History: Mr. Jamari Johnson was transferred to ICU on Jun 19 bec of acute encephalopathy in the setting of hypoxemic respiratory failure 2? COVID pneumonia. The patient is a 60 yo M with PMHx of AML in remission, Crohn's/UC on Stelara and methotrexate.? The patient had a COVID KRISTOPHER negative on 06/02/21.? Previously had COVID vaccine 2 shots. Presented to the ED on Jun 15 with SOB for a few days.? COVID positive.? [Jun 09 estimated symptom onset date.)? CXR showed severe diffuse bilateral patchy airspace opacities.? Initial DDimer 338, CRP 10.? CTPA showed severe bilateral COVID pneumonia.? There is no PE, normal right heart, normal pulmonary arteries, left ventricle looked a little dilated. Treated with remdesivir and dexamethasone.? Hospital course significant for progressive hypoxemia.? On Jun 19, reported to have snorted cocaine brought in by family, culminating in an episode of acute delirium/encephalopathy that required transfer to intensive care unit and tracheal intubation.? (Urine tox screen early June 20 was positive for cocaine.)? Urine and sputum from Jun 21 grew out a sensitive Ecoli.? Further complicated by development of pneumomediastinum with subcutaneous emphysema on Jun 27, but no pneumothorax. Since then FiO2 requirements have fluctuated.? PEEP level kept at 5cm to prevent further barotrauma.? Intermittently required paralytic agent, but none in last 3 days. Today, well sedated on propofol 30ug, fentanyl 150 ug, plus the Zyprexa 5mg bid.? The Zyprexa has made him much calmer, according to the patient?s nurse. ?Still has mild increased WOB, but less than yesterday.? CVBG this morning showed 7.40/62/+12.? On PC 16, 20/5, 70%, RR is 16, Vt 500cc, Ve 8L, PIP 26, ETCO2 37, Sat 97%.? HR 57, SR.? BP 100/42.? Afebrile.? PER, about 2mm.? No JVD at 30?.? Chest CTA, with normal exp phase.? RRR, low-pitched heart tones.? I heard no murmur or gallops.? The abdomen is benign.? He has no peripheral edema.? Neuro exam is nonfocal, albeit noninteractive. U/O averaging > 80cc/hr. LABORATORY DATA:? Below.? Notably, hemoglobin down to 6.8.? Stool for occult blood negative.? POC rising into 300s on higher dose steroids.? DDimer and biomarkers down. F/U CXR today:? Severe bilat disease.? No PTX, no pneumomediastinum. IMPRESSION: 1. Underlying immunosuppression secondary to AML in remission, and Crohn's/UC previously on Stelara mab and methotrexate. 2. Severe bilateral COVID pneumonia.? Symptom onset date maybe around Jun 09.? Course complicated by high DDimer and pneumomediastinum.? I changed his Decadron to Solumedrol 80mg bid.? Upped his Lovenox to 40 mg bid.? Added Vit C, Vit D, ASA, thiamine, melatonin, sprironolactone 100 mg bid, fluvoxamine 100mg bid, Atoravastin 80 mg daily.? Did not qualify for baricitinib secondary to underlying immune suppression. 3. Bilateral pulmonary infiltrates with ARDS.? Secondary to above. 4. Acute hypoxemic respiratory failure.? Secondary to above.? Added Zyprexa to help control WOB.? So far working well 5. Barotrauma, with pneumomediastinum and SQ emphysema.? Carries a poor prognosis in COVID patients.? Continue to minimize peak pressures.? Follow serial CXRs. 6. ID:? The sputum from Jun 20 that grew out Ecoli is somewhat equivocal, given the polymicrobial Gram stain.? But he got a full coarse of ceftriaxone anyway. 7. DM.? Changed Lantus to 50u bid. 8. Anemia.? Transfused 1 unit RBCs.? Stool hemoccult neg.? Recheck in two days. 9. Metabolic alkalosis.? Need to increase Diamox dose. 10. Hypernatremia.? Improved w added water flushes. 11. Nutrition.? On Vital 1.5 (bec of the Crohn?s) at goal rate, plus propofol. Prognosis is grave. Critical Care Time (minutes): 50 Physical Exam Vital Signs: Vital Signs: Last Vital Signs Temp 99.0 F 07/03/21 22:00 Pulse 59 07/03/21 22:00 Resp 17 07/03/21 22:00 BP 105/54 L 07/03/21 22:00 Pulse Ox 97 07/03/21 22:00 Oxygen Flow Rate 10 06/15/21 00:21 BMI result Body Mass Index 28.9 Objective Data Labs CBC & Chem 7: 07/03/21 05:13 07/03/21 05:13 Labs: Laboratory Results - last 24 hr 07/03/21 07/03/21 07/03/21 00:31 05:10 05:13 WBC 8.8 RBC 2.77 L Hgb 6.8 L* Hct 23.8 L MCV 85.9 MCH 24.5 L MCHC 28.6 L RDW 16.4 H Plt Count 445 H MPV 9.8 Absolute Nucleated RBC 0.000 Nucleated RBC % (auto) 0.0 Smear Path Review SEE NOTE D-Dimer High Sensitivty VBG pH VBG pCO2 VBG pO2 VBG HCO3 VBG O2 Saturation VBG Base Excess Sodium Potassium Chloride Carbon Dioxide Anion Gap BUN Creatinine Estim Creat Clear Calc Estimated GFR POC Glucose 290 H Random Glucose Calcium Phosphorus Magnesium Ferritin Total Bilirubin AST ALT Alkaline Phosphatase Lactate Dehydrogenase C-Reactive Protein Total Protein Albumin Procalcitonin Stool Occult Blood NEGATIVE Blood Type Antibody Screen Crossmatch 07/03/21 07/03/21 07/03/21 05:13 05:13 05:13 WBC RBC Hgb Hct MCV MCH MCHC RDW Plt Count MPV Absolute Nucleated RBC Nucleated RBC % (auto) Smear Path Review D-Dimer High Sensitivty 2576 VBG pH VBG pCO2 VBG pO2 VBG HCO3 VBG O2 Saturation VBG Base Excess Sodium 144 Potassium 4.8 D Chloride 105 Carbon Dioxide 34 H Anion Gap 10 L BUN 30 H Creatinine 0.68 Estim Creat Clear Calc 147.7 Estimated GFR > 60 POC Glucose Random Glucose 277 H D Calcium 9.4 Phosphorus 3.8 Magnesium 2.2 Ferritin 251 H Total Bilirubin 0.3 AST 10 D ALT 14 Alkaline Phosphatase 71 Lactate Dehydrogenase 233 C-Reactive Protein 14.92 H Total Protein 6.0 L Albumin 3.4 L Procalcitonin 0.15 Stool Occult Blood Blood Type Antibody Screen Crossmatch 07/03/21 07/03/21 07/03/21 05:13 05:17 17:20 WBC RBC Hgb Hct MCV MCH MCHC RDW Plt Count MPV Absolute Nucleated RBC Nucleated RBC % (auto) Smear Path Review D-Dimer High Sensitivty VBG pH 7.40 VBG pCO2 62 VBG pO2 49 VBG HCO3 39 H VBG O2 Saturation 76.0 VBG Base Excess 12.7 Sodium Potassium Chloride Carbon Dioxide Anion Gap BUN Creatinine Estim Creat Clear Calc Estimated GFR POC Glucose 329 H Random Glucose Calcium Phosphorus Magnesium Ferritin Total Bilirubin AST ALT Alkaline Phosphatase Lactate Dehydrogenase C-Reactive Protein Total Protein Albumin Procalcitonin Stool Occult Blood Blood Type O Positive Antibody Screen NEGATIVE Crossmatch See Detail 07/03/21 07/03/21 19:23 21:47 WBC RBC Hgb Hct MCV MCH MCHC RDW Plt Count MPV Absolute Nucleated RBC Nucleated RBC % (auto) Smear Path Review D-Dimer High Sensitivty VBG pH VBG pCO2 VBG pO2 VBG HCO3 VBG O2 Saturation VBG Base Excess Sodium Potassium Chloride Carbon Dioxide Anion Gap BUN Creatinine Estim Creat Clear Calc Estimated GFR POC Glucose 308 H 218 H Random Glucose Calcium Phosphorus Magnesium Ferritin Total Bilirubin AST ALT Alkaline Phosphatase Lactate Dehydrogenase C-Reactive Protein Total Protein Albumin Procalcitonin Stool Occult Blood Blood Type Antibody Screen Crossmatch Microbiology Microbiology Results: Microbiology 06/21/21 Unknown Urine Catheterized - [facility] Catheter Urine Culture - Final Escherichia coli 06/21/21 13:06 Sputum - Suctioned Gram Stain - Final 06/21/21 13:06 Sputum - Suctioned Sputum Culture - Final Escherichia coli 06/20/21 15:30 Sputum - Suctioned Gram Stain - Final 06/20/21 15:30 Sputum - Suctioned Sputum Culture - Final Escherichia coli 06/15/21 00:51 Blood - Venous Blood Culture - Final No growth after 5 days. 06/15/21 00:50 Blood - Venous Blood Culture - Final No growth after 5 days. Quality Stroke Does the patient have a stroke diagnosis?: No VTE Prior VTE?: No VTE Risk Level:: Medical - moderate - high VTE Device Contraindication: N/A - Device Ordered VTE Drug Contraindication: N/A - Med Ordered Critical Care Time Critical Care Time (minutes): 60
[2021-07-04] VITALS (31 sets, daily range): BP systolic 102–163; BP diastolic 53–89; PULSE 4–85; RESP 11–25; TEMP 33.9–37.1; O2SAT 91–98; BMI 29.5
[2021-07-04 00:17] LABS: Glucose, Whole Blood 156 mg/dL (60-115)
[2021-07-04] MEDS: propofoL 1,000 MG/100 ML VIAL 17.27 MG IVCONT ×5 (02:26→23:08)
[2021-07-04] MEDS: fentaNYL citrate/NS 1,000 MCG/100 ML PLAST..BAG 15 MCG IVCONT ×2 (02:27→09:12)
[2021-07-04] MEDS: Ascorbic Acid 500 MG TABLET 1000 MG G-TUBE ×4 (02:43→21:01)
[2021-07-04 05:54] LABS: VBG Base Excess 8.1 mmol/L; VBG HCO3 34 mmol/L (22-26); VBG pCO2 58 mmHg; VBG pH 7.37 (7.32-7.43); VBG pO2 47 mmHg
[2021-07-04 06:30] LABS: Anion Gap 12 (12-20); Blood Urea Nitrogen 31 mg/dL (9-16); Calcium 9.5 mg/dL (8.4-10.2); Carbon Dioxide 29 mmol/L (22-29); Chloride 103 mmol/L (96-108); Creatinine Clr Calc Pharmacy 151.2; Estimated Glomerular Filt Rate > 60; Glucose Random 237 mg/dL (60-115); Magnesium 2.1 mg/dL (1.6-2.6); Potassium 4.8 mmol/L (3.3-5.1); Sodium 139 mmol/L (135-145)
[2021-07-04 06:33] LABS: Glucose, Whole Blood 207 mg/dL (60-115)
[2021-07-04 06:44] LABS: Hematocrit 27.3 % (42.0-52.0); Hemoglobin 7.9 g/dl (14.0-18.0); Mean Corpuscular HGB Conc 28.9 g/dl (31.0-36.0); Mean Corpuscular Hemoglobin 24.9 pg (27.0-33.0); Mean Corpuscular Volume 86.1 fL (80.0-98.0); Mean Platelet Volume 9.8 fL (9.4-12.4); Platelet Count 462 X10*3/uL (160-400); Red Blood Count 3.17 X10*6/uL (4.60-5.80); White Blood Count 9.2 X10*3/uL (4.8-10.8)
[2021-07-04 06:44] LABS: Venous Blood Gas Refer to POC result
[2021-07-04] MEDS: 0.9 % Sodium Chloride Flush 3 ML SYRINGE IVFLUSH ×3 (07:33→23:10)
[2021-07-04] MEDS: Spironolactone 25 MG TABLET 100 MG G-TUBE ×2 (09:11→21:01)
[2021-07-04] MEDS: Aspirin 325 MG TABLET G-TUBE (09:11)
[2021-07-04] MEDS: Thiamine HCL 100 MG TABLET 200 MG G-TUBE ×2 (09:11→21:01)
[2021-07-04] MEDS: fluvoxaMINE Maleate 50 MG TABLET 100 MG G-TUBE ×2 (09:11→21:02)
[2021-07-04] MEDS: Atorvastatin Calcium 80 MG TABLET G-TUBE (09:11)
[2021-07-04] MEDS: OLANZapine 5 MG TABLET PO ×2 (09:11→21:02)
[2021-07-04] MEDS: Chlorhexidine Gluc Oral Rinse 15 ML MOUTHWASH BUCCAL ×3 (09:11→21:02)
[2021-07-04] MEDS: Cholecalciferol (Vitamin D3) 25 MCG TABLET 50 MCG G-TUBE (09:11)
[2021-07-04] MEDS: Enoxaparin Sodium 40 MG/0.4 ML SYRINGE SUBCUT ×2 (09:12→21:02)
[2021-07-04] MEDS: acetaZOLAMIDE sodium 500 MG VIAL IVPUSH (09:12)
[2021-07-04] MEDS: Insulin Glargine,Hum.rec.anlog 100 UNIT/ML 10 ML VIAL 50 UNIT SUBCUT (09:12)
[2021-07-04] MEDS: methylPREDNISolone Sod Succ 125 MG/2 ML VIAL 80 MG IVPUSH ×2 (09:12→23:04)
--- NOTE | 2021-07-04 09:17 | MHC.CLN ---
F/U TF REMAINS INTUBATED AND SEDATED PT RECEIVING VITAL 1.5 AT MAX GOAL RATE 45 ML/HR WITH 30 ML OF PROSOURCE TID WITH 240 ML FREE WATER FLUSHES Q 4 HRS PROVIDES 1800KCALS (2256 KCALS WITH SEDATION; 23 KCALS/KG BASED ON CMW), 118 G TOTAL PROTEIN (1.2 G/KG BASED ON CMW), 2265 ML TOTAL WATER FROM FORMULA AND FLUSHES (25 ML/KG BASED ON IBW). TOLERATING WELL PER NSG; PT WITH RECTAL TUBE DRAINING LOOSE STOOLS ALTHOUGH PT WITH HX ULCERATIVE COLITIS/CROHN'S DZ PROSOURCE TID IN PLACE WILL PROMOTE WOUND HEALING MONITOR TOLERANCE, RESIDUALS AND LYTES
[2021-07-04] MEDS: fentaNYL citrate/NS 1,000 MCG/100 ML PLAST..BAG 10 MCG IVCONT ×2 (10:44→20:53)
[2021-07-04 12:03] LABS: Glucose, Whole Blood 265 mg/dL (60-115)
[2021-07-04 17:54] LABS: Glucose, Whole Blood 338 mg/dL (60-115)
[2021-07-04] MEDS: Insulin Lispro 100 UNIT/ML 3 ML VIAL 25 UNIT SUBCUT (18:04)
[2021-07-04 20:22] LABS: Glucose, Whole Blood 300 mg/dL (60-115)
--- NOTE | 2021-07-04 20:39 | P.PNCC_ITS ---
Subjective Subjective Date of Service: 07/04/21 Interval History: Mr. Jamari Johnson was transferred to ICU on Jun 19 bec of acute encephalopathy in the setting of hypoxemic respiratory failure 2? COVID pneumonia. The patient is a 60 yo M with PMHx of AML in remission, Crohn's/UC on Stelara and methotrexate.? The patient had a COVID KRISTOPHER negative on 06/02/21.? Previously had COVID vaccine 2 shots. Presented to the ED on Jun 15 with SOB for a few days.? COVID positive.? [Jun 09 estimated symptom onset date.)? CXR showed severe diffuse bilateral patchy airspace opacities.? Initial DDimer 338, CRP 10.? CTPA showed severe bilateral COVID pneumonia.? There is no PE, normal right heart, normal pulmonary arteries, left ventricle looked a little dilated. Treated with remdesivir and dexamethasone.? Hospital course significant for progressive hypoxemia.? On Jun 19, reported to have snorted cocaine brought in by family, culminating in an episode of acute delirium/encephalopathy that required transfer to intensive care unit and tracheal intubation.? (Urine tox screen early June 20 was positive for cocaine.)? Urine and sputum from Jun 21 grew out a sensitive Ecoli.? Further complicated by development of pneumomediastinum with subcutaneous emphysema on Jun 27, but no pneumothorax. Since then FiO2 requirements fluctuated, and the patient required intermittent paralytic agent.? PEEP level kept at 5cm to prevent further barotrauma.? But over the last few days, the patient has ventilatory status has improved, as has his oxygenation.? This morning, the patient was down to 50% FiO2. Today, well sedated on propofol 25ug, fentanyl 100 ug, plus the Zyprexa 5mg bid.? The Zyprexa has made him much calmer.? Still has mild WOB, but less than yesterday.? CVBG this morning showed 7.37/58/+8.? On PC 16, 20/5, 50%, RR is 23, Vt 490cc, Ve 10.6 L, PIP 28, ETCO2 30, Sat 96%.? HR 68, SR.? BP 140/75.? Afebrile.? No JVD at 30?.? Normal exp phase.? Abdomen is benign.? No peripheral edema.? Neuro exam is nonfocal, albeit noninteractive. U/O averaging > 100cc/hr. LABORATORY DATA:? Below.? Notably, Hb up 1gram after transfusion of 1 unit RBCs.? POC rising into 300s on higher dose steroids. IMPRESSION: 1. Underlying immunosuppression secondary to AML in remission, and Crohn's/UC previously on Stelara mab and methotrexate. 2. Severe bilateral COVID pneumonia.? Symptom onset date maybe around Jun 09.? Course complicated by pneumomediastinum.? I changed his Decadron to Solumedrol 80mg bid.? Upped his Lovenox to 40 mg bid.? Added Vit C, Vit D, ASA, thiamine, melatonin, sprironolactone 100 mg bid, fluvoxamine 100mg bid, Atoravastin 80 mg daily.? Did not qualify for baricitinib secondary to underlying immune suppression. 3. Bilateral pulmonary infiltrates with ARDS.? Secondary to above. 4. Acute hypoxemic respiratory failure.? Secondary to above.? Added Zyprexa to help control WOB.? So far working well.? We?ll cut the dose down to qhs.? FiO2 down dramatically over last two days. 5. Barotrauma, with pneumomediastinum and SQ emphysema.? Carries a poor prognosis in COVID patients.? Continue to minimize peak pressures.? Follow serial CXRs. 6. ID:? The sputum from Jun 20 that grew out Ecoli is somewhat equivocal, given the polymicrobial Gram stain.? But he got a full coarse of ceftriaxone anyway.? Currently afebrile, normal white count. 7. DM.? Increase Lantus to 75u bid, and add SS Lispro. 8. Anemia.? Transfused 1 unit RBCs.? Recheck stool hemoccult tomorrow. 9. Metabolic alkalosis.? Improved on Diamox.? Hold for now. 10. Hypernatremia.? Resolved w added water flushes. 11. Nutrition.? On Vital 1.5 (bec of the Crohn?s) at goal rate, plus propofol. Prognosis is improving. Critical Care Time (minutes): 50 Physical Exam Verdana 4l Vital Signs: Verdana 4d Verdana 4d Vital Signs: Verdana 4d Verdana 4Bd Last Vital Signs Verdana 4d Adjunct Physics Instructor New 4d Adjunct Physics Instructor New 4d Temp 97.3 F 07/04/21 20:00 Adjunct Physics Instructor New 4d Pulse 70 07/04/21 20:00 Adjunct Physics Instructor New 4d Resp 21 H 07/04/21 20:00 BP 146/72 H 07/04/21 20:00 Pulse Ox 95 07/04/21 20:00 Oxygen Flow Rate 10 06/15/21 00:21 BMI result Body Mass Index 29.5 Objective Data Labs CBC & Chem 7: 07/04/21 05:00 07/04/21 05:30 Labs: Laboratory Results - last 24 hr 07/03/21 07/03/21 07/04/21 21:47 23:33 05:00 WBC 9.2 RBC 3.17 L Hgb 7.9 L Hct 27.3 L MCV 86.1 MCH 24.9 L MCHC 28.9 L RDW 16.0 Plt Count 462 H MPV 9.8 Absolute Nucleated RBC 0.000 Nucleated RBC % (auto) 0.0 VBG pH VBG pCO2 VBG pO2 VBG HCO3 VBG O2 Saturation VBG Base Excess Sodium Potassium Chloride Carbon Dioxide Anion Gap BUN Creatinine Estim Creat Clear Calc Estimated GFR POC Glucose 218 H 156 H Random Glucose Calcium Magnesium 07/04/21 07/04/21 07/04/21 05:30 05:35 05:36 WBC RBC Hgb Hct MCV MCH MCHC RDW Plt Count MPV Absolute Nucleated RBC Nucleated RBC % (auto) VBG pH 7.37 VBG pCO2 58 VBG pO2 47 VBG HCO3 34 H VBG O2 Saturation 75.0 VBG Base Excess 8.1 Sodium 139 Potassium 4.8 Chloride 103 Carbon Dioxide 29 Anion Gap 12 BUN 31 H Creatinine 0.67 Estim Creat Clear Calc 151.2 Estimated GFR > 60 POC Glucose 207 H Random Glucose 237 H Calcium 9.5 Magnesium 2.1 07/04/21 07/04/21 07/04/21 11:56 17:44 20:18 WBC RBC Hgb Hct MCV MCH MCHC RDW Plt Count MPV Absolute Nucleated RBC Nucleated RBC % (auto) VBG pH VBG pCO2 VBG pO2 VBG HCO3 VBG O2 Saturation VBG Base Excess Sodium Potassium Chloride Carbon Dioxide Anion Gap BUN Creatinine Estim Creat Clear Calc Estimated GFR POC Glucose 265 H 338 H 300 H Random Glucose Calcium Magnesium Microbiology Microbiology Results: Microbiology 06/21/21 Unknown Urine Catheterized - [facility] Catheter Urine Culture - Final Escherichia coli 06/21/21 13:06 Sputum - Suctioned Gram Stain - Final 06/21/21 13:06 Sputum - Suctioned Sputum Culture - Final Escherichia coli 06/20/21 15:30 Sputum - Suctioned Gram Stain - Final 06/20/21 15:30 Sputum - Suctioned Sputum Culture - Final Escherichia coli 06/15/21 00:51 Blood - Venous Blood Culture - Final No growth after 5 days. 06/15/21 00:50 Blood - Venous Blood Culture - Final No growth after 5 days. Quality Stroke Does the patient have a stroke diagnosis?: No VTE Prior VTE?: No VTE Risk Level:: Medical - moderate - high VTE Device Contraindication: N/A - Device Ordered VTE Drug Contraindication: N/A - Med Ordered Critical Care Time Critical Care Time (minutes): 60
[2021-07-04] MEDS: Insulin Glargine,Hum.rec.anlog 100 UNIT/ML 10 ML VIAL 75 UNIT SUBCUT (21:00)
[2021-07-04] MEDS: Melatonin 3 MG TABLET 9 MG G-TUBE (21:01)
[2021-07-04 23:35] LABS: Glucose, Whole Blood 213 mg/dL (60-115)
[2021-07-04] MEDS: Insulin Lispro 100 UNIT/ML 3 ML VIAL SUBCUT (23:37)
[2021-07-05] VITALS (29 sets, daily range): BP systolic 98–168; BP diastolic 54–89; PULSE 21–118; RESP 7–101; TEMP 33.9–37.7; O2SAT 91–99; BMI 28.6
--- NOTE | 2021-07-05 01:12 | PC.NURSE ---
Addendum entered by Demarco Maharaj RN 07/05/21 02:28: patient had a coughing fit with a large amount of inline secretions and associated high systolic blood pressure 180's-190's, and some tachycardia in the 120-130's. Suctioned about 5 times with good effect. PA notified and at room, ordered to give 5 cc bolus of propofol, which was given with good effect. After turning, patient SpO2 was only 87%, was given 2 minutes of 100% and still required up-titration of FiO2 to 50%, but his sedation remains with fentanyl 75 and propofol 25. back in sinus rhythm, BP with systolic in 120-130's range. Original Note: Assumed care from CHRIS Pulido, at 1900. Patient was sedated on propofol 25 and fentanyl 100 gtts doserates; tolerated down-titration of fenanyl from 100 to 75 as per MD and PA. Patient still occassionally breathing with accessory muscle use and increased WOB, but less frequently and episodic. Still has #8 ett which is 24 cm at the lip, PC settings with rate of 16, inspiratory pressure 20, peep 5; FiO2 40%; SpO2 93-97%, Peak pressures around 76-28. Tolerated down-titration of FiO2 from 50 to 40% as per MD. Sinus rhythm/sinus tachycardia on monitor with occasional PACs. BP was elevated at times 100's-160's. Patient with distant heart sounds. mild pitting peripheral edema, left hand with +2 pitting edema, seems positional. TF was held twice around nimbex doses, and patient missed 240 cc water flushes q4 hours, well tolerated, zero residual, hyperactive BS. Patient with rectal tube putting out brown loose stool, and this was emptied for 900 ccs at midnight. Patient with [place] cath, outputs 100-200 cc/hour, PA aware.
[2021-07-05] MEDS: Ascorbic Acid 500 MG TABLET 1000 MG G-TUBE ×4 (03:15→20:28)
[2021-07-05] MEDS: propofoL 1,000 MG/100 ML VIAL 17.27 MG IVCONT ×3 (04:04→20:28)
[2021-07-05 05:32] LABS: VBG Base Excess 3.7 mmol/L; VBG HCO3 28 mmol/L (22-26); VBG pCO2 41 mmHg; VBG pH 7.43 (7.32-7.43); VBG pO2 47 mmHg
[2021-07-05 05:40] LABS: Venous Blood Gas Refer to POC result
[2021-07-05 05:43] LABS: Hematocrit 33.9 % (42.0-52.0); Hemoglobin 10.1 g/dl (14.0-18.0); Mean Corpuscular HGB Conc 29.8 g/dl (31.0-36.0); Mean Corpuscular Hemoglobin 24.6 pg (27.0-33.0); Mean Corpuscular Volume 82.7 fL (80.0-98.0); Mean Platelet Volume 9.4 fL (9.4-12.4); Platelet Count 598 X10*3/uL (160-400); Red Cell Distribution Width 16.2 % (11.0-16.0); White Blood Count 12.2 X10*3/uL (4.8-10.8)
[2021-07-05 05:50] LABS: D Dimer High Sensitivity 3216 NG/ML
[2021-07-05 06:00] LABS: Glucose, Whole Blood 213 mg/dL (60-115)
[2021-07-05 06:13] LABS: Alanine Aminotransferase 17 U/L (0-40); Albumin Level 3.6 g/dL (3.5-5.0); Alkaline Phosphatase 83 U/L (39-117); Anion Gap 12 (12-20); Aspartate Amino Transferase 11 U/L (5-37); Bilirubin Total 0.2 mg/dL (0.0-1.0); Blood Urea Nitrogen 27 mg/dL (9-16); Calcium 9.9 mg/dL (8.4-10.2); Carbon Dioxide 28 mmol/L (22-29); Chloride 101 mmol/L (96-108); Estimated Glomerular Filt Rate > 60; Glucose Random 219 mg/dL (60-115); Magnesium 2.1 mg/dL (1.6-2.6); Phosphorus 2.8 mg/dL (2.7-4.5); Potassium 4.5 mmol/L (3.3-5.1); Sodium 136 mmol/L (135-145); Total Protein 6.9 g/dL (6.5-8.0)
[2021-07-05] MEDS: Insulin Lispro 100 UNIT/ML 3 ML VIAL SUBCUT ×4 (06:14→23:29)
[2021-07-05] MEDS: fentaNYL citrate/NS 1,000 MCG/100 ML PLAST..BAG 10 MCG IVCONT ×2 (08:07→18:12)
[2021-07-05] MEDS: Atorvastatin Calcium 80 MG TABLET G-TUBE (08:08)
[2021-07-05] MEDS: fluvoxaMINE Maleate 50 MG TABLET 100 MG G-TUBE ×2 (08:08→20:28)
[2021-07-05] MEDS: Cholecalciferol (Vitamin D3) 25 MCG TABLET 50 MCG G-TUBE (08:08)
[2021-07-05] MEDS: Aspirin 325 MG TABLET G-TUBE (08:08)
[2021-07-05] MEDS: Thiamine HCL 100 MG TABLET 200 MG G-TUBE ×2 (08:08→20:28)
[2021-07-05] MEDS: Spironolactone 25 MG TABLET 100 MG G-TUBE ×2 (08:08→20:28)
[2021-07-05] MEDS: Chlorhexidine Gluc Oral Rinse 15 ML MOUTHWASH BUCCAL ×3 (08:08→20:28)
[2021-07-05] MEDS: 0.9 % Sodium Chloride Flush 3 ML SYRINGE IVFLUSH ×2 (08:08→16:17)
[2021-07-05] MEDS: Enoxaparin Sodium 40 MG/0.4 ML SYRINGE SUBCUT ×2 (08:09→20:28)
[2021-07-05] MEDS: Insulin Glargine,Hum.rec.anlog 100 UNIT/ML 10 ML VIAL 75 UNIT SUBCUT (08:09)
[2021-07-05 11:47] LABS: Glucose, Whole Blood 165 mg/dL (60-115)
[2021-07-05] MEDS: methylPREDNISolone Sod Succ 125 MG/2 ML VIAL 80 MG IVPUSH ×2 (12:08→23:17)
--- NOTE | 2021-07-05 15:16 | MHC.CM.PN ---
Call placed to pt's HCP/sister Judith to update her on care plan and discuss d/c plans: Judith is awaiting a call from MD to discuss next steps in care. Pt will likely require a Trach/Peg and transfer to [facility]. Reviewed this plan with Judith: she replies she wants to do what's best for the patient but wasn't able to elaborate on what that would be from the patients perspective. CM to follow for finalization of d/c needs
[2021-07-05 18:07] LABS: Glucose, Whole Blood 231 mg/dL (60-115)
--- NOTE | 2021-07-05 19:36 | P.PNCC_ITS ---
Subjective Subjective Date of Service: 07/05/21 Interval History: Mr. Jamari Johnson was transferred to ICU on Jun 19 bec of acute encephalopathy in the setting of hypoxemic respiratory failure 2? COVID pneumonia. The patient is a 60 yo M with PMHx of AML in remission, Crohn's/UC on Stelara and methotrexate.? The patient had a COVID KRISTOPHER negative on 06/02/21.? Previously had COVID vaccine 2 shots. Presented to the ED on Jun 15 with SOB for a few days.? COVID positive.? [Jun 09 estimated symptom onset date.)? CXR showed severe diffuse bilateral patchy airspace opacities.? Initial DDimer 338, CRP 10.? CTPA showed severe bilateral COVID pneumonia.? There is no PE, normal right heart, normal pulmonary arteries, left ventricle looked a little dilated. Treated with remdesivir and dexamethasone.? Hospital course significant for progressive hypoxemia.? On Jun 19, reported to have snorted cocaine brought in by family, culminating in an episode of acute delirium/encephalopathy that required transfer to intensive care unit and tracheal intubation.? (Urine tox screen early June 20 was positive for cocaine.)? Urine and sputum from Jun 21 grew out a sensitive Ecoli.? Further complicated by development of pneumomediastinum with subcutaneous emphysema on Jun 27, but no pneumothorax. Since then FiO2 requirements fluctuated, and the patient required intermittent paralytic agent.? PEEP level kept at 5cm to prevent further barotrauma.? Since the beginning of this week, the patient?s ventilatory status has slowly improved, as has his oxygenation. ?Since yesterday, his FiO2 has been down to 50%. Today, we stopped his propofol for 4 1/2 hours. ?Eyes were open and he moved all 4 occasionally spontaneously, but 100% non interactive, no tracking, no re sponse to confrontation.? Back on propofol 25ug, fentanyl 100 ug, plus Zyprexa 5mg qhs, his breathing is the smoothest I?ve seen it.? CVBG this morning showed 7.43/41/+3.? On PC 16, 20/5, 50%, RR is 20, Vt 490cc, Ve 8.9 L, PIP 26cm, ETCO2 33, Sat 95%.? HR 98, SR.? BP 113/71.? Afebrile.? No JVD at 30?.? Normal exp phase.? Abdomen is benign.? Trace thigh edema.? Neuro exam is nonfocal, albeit noninteractive. LABORATORY DATA:? Below.? Notably, WBC up, POC down to low 200s on increased Lantus dose. IMPRESSION: 1. Underlying immunosuppression secondary to AML in remission, and Crohn's/UC previously on Stelara mab and methotrexate. 2. Severe bilateral COVID pneumonia.? Symptom onset date maybe around Jun 09.? Course complicated by pneumomediastinum.? I changed his Decadron to Solumedrol 80mg bid, upped his Lovenox to 40 mg bid, added Vit C, Vit D, ASA, thiamine, melatonin, sprironolactone 100 mg bid, fluvoxamine 100mg bid, Atoravastin 80 mg daily.? Did not qualify for baricitinib secondary to underlying immune suppression. 3. Bilateral pulmonary infiltrates with ARDS.? Secondary to above. 4. Acute hypoxemic respiratory failure.? Secondary to above.? Added Zyprexa to help control WOB.? Given how well things are going and how unresponsive he was during the propofol holiday, I?ll stop the Zyprexa today and see how things go over the next couple of days. 5. Barotrauma, with pneumomediastinum and SQ emphysema.? Stable.? Carries a poor prognosis in COVID patients.? Continue to minimize peak pressures.? Follow serial CXRs prn. 6. Neuro:? Unresponsive during sedation holiday.? We?ll stop the Zyprexa, continue sedation holiday daily.? CT scan not warranted quite yet. 7. ID:? The sputum from Jun 20 that grew out Ecoli is somewhat equivocal, given the polymicrobial Gram stain.? But he got a full coarse of ceftriaxone anyway.? Currently afebrile, white count up a bit.? Not yet time to reculture. 7. DM.? Increased Lantus to 80u bid.? Continue SS Lispro. 8. Anemia.? Transfused 1 unit RBCs.? Waiting for stool hemoccult recheck. 9. Metabolic alkalosis.? Improved on Diamox.? Holding for now. 10. Nutrition.? On Vital 1.5 (bec of the Crohn?s) at goal rate, plus propofol. Prognosis is improving in so far as his pulmonary status goes. I spoke to the patient?s HCP, his sister Judith Kauffman ([phone]) about his current condition vis-?-vis his respiratory status and his brain status. ?Doing well with the former, not so much with the latter.? He?ll need a tracheostomy.? She readily agreed.? I don?t think she has any contextual perspective on whether or not he would want that, vs. a consideration of end-of-life care.? I texted Dr. Ramirez and let him know.? Will plan for next week. Critical Care Time (minutes): 70 Physical Exam Verdana 4l Vital Signs: Verdana 4d Verdana 4d Vital Signs: Verdana 4d Verdana 4Bd Last Vital Signs Verdana 4d Head Correction Officer New 4d Head Correction Officer New 4d Temp 97.9 F 07/05/21 17:49 Head Correction Officer New 4d Pulse 109 H 07/05/21 18:51 Head Correction Officer New 4d Resp 20 07/05/21 18:51 BP 132/81 07/05/21 18:51 Pulse Ox 93 07/05/21 18:51 Oxygen Flow Rate 10 06/15/21 00:21 BMI result Body Mass Index 28.6 Objective Data Labs CBC & Chem 7: 07/05/21 05:20 07/05/21 05:20 Labs: Laboratory Results - last 24 hr 07/04/21 07/04/21 07/05/21 20:18 23:23 05:20 WBC 12.2 H RBC 4.10 L D Hgb 10.1 L D Hct 33.9 L D MCV 82.7 MCH 24.6 L MCHC 29.8 L RDW 16.2 H Plt Count 598 H D MPV 9.4 Absolute Nucleated RBC 0.000 Nucleated RBC % (auto) 0.0 D-Dimer High Sensitivty VBG pH VBG pCO2 VBG pO2 VBG HCO3 VBG O2 Saturation VBG Base Excess Sodium Potassium Chloride Carbon Dioxide Anion Gap BUN Creatinine Estim Creat Clear Calc Estimated GFR POC Glucose 300 H 213 H Random Glucose Calcium Phosphorus Magnesium Total Bilirubin AST ALT Alkaline Phosphatase Total Protein Albumin 07/05/21 07/05/21 07/05/21 05:20 05:20 05:26 WBC RBC Hgb Hct MCV MCH MCHC RDW Plt Count MPV Absolute Nucleated RBC Nucleated RBC % (auto) D-Dimer High Sensitivty 3216 VBG pH 7.43 VBG pCO2 41 VBG pO2 47 VBG HCO3 28 H VBG O2 Saturation 77.0 VBG Base Excess 3.7 Sodium 136 Potassium 4.5 Chloride 101 Carbon Dioxide 28 Anion Gap 12 BUN 27 H Creatinine 0.68 Estim Creat Clear Calc 149.0 Estimated GFR > 60 POC Glucose Random Glucose 219 H Calcium 9.9 Phosphorus 2.8 Magnesium 2.1 Total Bilirubin 0.2 AST 11 ALT 17 Alkaline Phosphatase 83 Total Protein 6.9 Albumin 3.6 07/05/21 07/05/21 07/05/21 05:52 11:43 17:58 WBC RBC Hgb Hct MCV MCH MCHC RDW Plt Count MPV Absolute Nucleated RBC Nucleated RBC % (auto) D-Dimer High Sensitivty VBG pH VBG pCO2 VBG pO2 VBG HCO3 VBG O2 Saturation VBG Base Excess Sodium Potassium Chloride Carbon Dioxide Anion Gap BUN Creatinine Estim Creat Clear Calc Estimated GFR POC Glucose 213 H 165 H 231 H Random Glucose Calcium Phosphorus Magnesium Total Bilirubin AST ALT Alkaline Phosphatase Total Protein Albumin Microbiology Microbiology Results: Microbiology 06/21/21 Unknown Urine Catheterized - [facility] Catheter Urine Culture - Final Escherichia coli 06/21/21 13:06 Sputum - Suctioned Gram Stain - Final 06/21/21 13:06 Sputum - Suctioned Sputum Culture - Final Escherichia coli 06/20/21 15:30 Sputum - Suctioned Gram Stain - Final 06/20/21 15:30 Sputum - Suctioned Sputum Culture - Final Escherichia coli 06/15/21 00:51 Blood - Venous Blood Culture - Final No growth after 5 days. 06/15/21 00:50 Blood - Venous Blood Culture - Final No growth after 5 days. Quality Stroke Does the patient have a stroke diagnosis?: No VTE Prior VTE?: No VTE Risk Level:: Medical - moderate - high VTE Device Contraindication: N/A - Device Ordered VTE Drug Contraindication: N/A - Med Ordered Critical Care Time Critical Care Time (minutes): 60
[2021-07-05] MEDS: Melatonin 3 MG TABLET 9 MG G-TUBE (20:28)
[2021-07-05] MEDS: Insulin Glargine,Hum.rec.anlog 100 UNIT/ML 10 ML VIAL 80 UNIT SUBCUT (21:34)
[2021-07-05 22:11] LABS: OBS Int Ctl Valid YES; OBS1 POSITIVE (NEGATIVE)
[2021-07-05 23:26] LABS: Glucose, Whole Blood 161 mg/dL (60-115)
[2021-07-06] VITALS (29 sets, daily range): BP systolic 91–158; BP diastolic 53–88; PULSE 22–108; RESP 6–22; TEMP 33.7–37.7; O2SAT 93–98; BMI 28.3
[2021-07-06] MEDS: propofoL 1,000 MG/100 ML VIAL 17.27 MG IVCONT ×2 (01:23→05:58)
[2021-07-06] MEDS: fentaNYL citrate/NS 1,000 MCG/100 ML PLAST..BAG 10 MCG IVCONT ×3 (04:01→23:12)
[2021-07-06] MEDS: Ascorbic Acid 500 MG TABLET 1000 MG G-TUBE ×4 (04:02→19:43)
[2021-07-06 05:53] LABS: Glucose, Whole Blood 179 mg/dL (60-115)
[2021-07-06] MEDS: Insulin Lispro 100 UNIT/ML 3 ML VIAL SUBCUT ×2 (05:58→17:55)
[2021-07-06] MEDS: Insulin Glargine,Hum.rec.anlog 100 UNIT/ML 10 ML VIAL 80 UNIT SUBCUT ×2 (07:42→23:12)
[2021-07-06] MEDS: 0.9 % Sodium Chloride Flush 3 ML SYRINGE IVFLUSH ×2 (07:43→15:46)
[2021-07-06] MEDS: Chlorhexidine Gluc Oral Rinse 15 ML MOUTHWASH BUCCAL ×3 (07:43→19:43)
[2021-07-06] MEDS: Enoxaparin Sodium 40 MG/0.4 ML SYRINGE SUBCUT (07:43)
[2021-07-06] MEDS: Aspirin 325 MG TABLET G-TUBE (07:44)
[2021-07-06] MEDS: Cholecalciferol (Vitamin D3) 25 MCG TABLET 50 MCG G-TUBE (07:44)
[2021-07-06] MEDS: Thiamine HCL 100 MG TABLET 200 MG G-TUBE ×2 (07:44→19:43)
[2021-07-06] MEDS: Atorvastatin Calcium 80 MG TABLET G-TUBE (07:44)
[2021-07-06] MEDS: fluvoxaMINE Maleate 50 MG TABLET 100 MG G-TUBE ×2 (07:45→19:43)
[2021-07-06] MEDS: Spironolactone 25 MG TABLET 100 MG G-TUBE ×2 (07:45→19:43)
[2021-07-06 12:07] LABS: Glucose, Whole Blood 130 mg/dL (60-115)
[2021-07-06] MEDS: methylPREDNISolone Sod Succ 125 MG/2 ML VIAL 80 MG IVPUSH ×2 (12:09→23:12)
--- NOTE | 2021-07-06 12:58 | MHC.CLN ---
F/U PATIENT CONTINUES TO BE INTUBATED AND SEDATED. PROPOFOL PAUSED OF 07/06 AT 8 AM. RECEIVING VITAL 1.5 AT MAX GOAL RATE 45 ML/HR; 30 ML OF PROSOURCE; 240 ML FREE WATER FLUSHES Q 4 HRS. PROVIDES 1800 KCALS (18.2 KCALS/KG BASED ON CMW), 118 G TOTAL PROTEIN (1.2 G/KG BASED ON CMW), 2265 ML TOTAL WATER FROM FORMULA AND FLUSHES (25 ML/KG BASED ON IBW). TOLERATING WELL. SKIN: STAGE II PRESSURE INJURIES TO COCCYX AND PERINEAL. PROSOURCE TID IN PLACE TO PROMOTE WOUND HEALING MONITOR TOLERANCE, RESIDUALS AND LYTES.
--- NOTE | 2021-07-06 15:14 | MHC.CM.PN ---
held goals of care discussion with pt's sister/HCP, Judith. Family wishes to pursue trach/peg placement and transfer to [facility]. OR arrangements will resume next week. Referred pt to [facility] in anticipation of transfer
--- NOTE | 2021-07-06 17:17 | P.PNCC_ITS ---
Subjective Subjective Date of Service: 07/06/21 Interval History: Mr. Jamari Johnson was transferred to ICU on Jun 19 bec of acute encephalopathy in the setting of hypoxemic respiratory failure 2? COVID pneumonia. The patient is a 60 yo M with PMHx of AML in remission, Crohn's/UC on Stelara and methotrexate.? The patient had a COVID KRISTOPHER negative on 06/02/21.? Previously had COVID vaccine 2 shots. Presented to the ED on Jun 15 with SOB for a few days.? COVID positive.? [Jun 09 estimated symptom onset date.)? CXR showed severe diffuse bilateral patchy airspace opacities.? Initial DDimer 338, CRP 10.? CTPA showed severe bilateral COVID pneumonia.? There is no PE, normal right heart, normal pulmonary arteries, left ventricle looked a little dilated. Treated with remdesivir and dexamethasone.? Hospital course significant for progressive hypoxemia.? On Jun 19, reported to have snorted cocaine brought in by family, culminating in an episode of acute delirium/encephalopathy that required transfer to intensive care unit and tracheal intubation.? (Urine tox screen early June 20 was positive for cocaine.)? Urine and sputum from Jun 21 grew out a sensitive Ecoli.? Further complicated by development of pneumomediastinum with subcutaneous emphysema on Jun 27, but no pneumothorax. This week, PEEP level kept at 5cm to prevent further barotrauma.? The patient?s ventilatory status has slowly improved, as has his oxygenation.? FiO2 now down to 45%. Today, we stopped his propofol for 8 hours.? And I stopped his Zyprexa last night.? Eyes open to stimulation and he moves all 4 occasionally spontaneously, but still 100% non interactive, no tracking, no response to confrontation.? He does move his eyes around however.? On fentanyl 100 ug, his breathing is the smoothest I?ve seen it.? On PC 16, 20/5, 45%, RR is 18, Vt 510cc, Ve 9.2 L, PIP 26cm, Sat 95%.? HR 88, SR.? BP 152/88.? Afebrile.? No JVD at 30?.? Normal exp phase.? Abdomen is benign.? Trace thigh edema.? Neuro exam is nonfocal, albeit noninteractive. LABORATORY DATA:? No labs today. POCs 130-180 on Lantus 80 u bid. IMPRESSION: 1. Underlying immunosuppression secondary to AML in remission, and Crohn's/UC previously on Stelara mab and methotrexate. 2. Severe bilateral COVID pneumonia.? Symptom onset date maybe around Jun 09.? Course complicated by pneumomediastinum.? I changed his Decadron to Solumedrol 80mg bid, upped his Lovenox to 40 mg bid, added Vit C, Vit D, ASA, thiamine, melatonin, sprironolactone 100 mg bid, fluvoxamine 100mg bid, Atoravastin 80 mg daily.? Did not qualify for baricitinib secondary to underlying immune sup pression. 3. Bilateral pulmonary infiltrates with ARDS.? Secondary to above. 4. Acute hypoxemic respiratory failure.? Secondary to above.? Ready for tracheostomy.? I texted Dr. Ramirez last night, he will set it up for next week. 5. Barotrauma, with pneumomediastinum.? Stable.? Carries a poor prognosis in COVID patients.? Continue to minimize peak pressures.? Follow serial CXRs prn. 6. Neuro:? Unresponsive during sedation holiday.? 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 CT scan not warranted (yet). 7. ID:? The sputum from Jun 20 that grew out Ecoli is somewhat equivocal, given the polymicrobial Gram stain.? But he got a full coarse of ceftriaxone anyway.? Currently afebrile, white count up a bit.? Not yet time to reculture. 7. DM.? Increased Lantus to 80u bid.? Continue SS Lispro. 8. Anemia.? Transfused 1 unit RBCs.? Stool hemoccult is positive yesterday aft er negative on 07/03.? No gross GI bleeding? Recheck Hb tomorrow. 9. Metabolic alkalosis.? Improved on Diamox.? Holding for now. 10. Nutrition.? On Vital 1.5 (bec of the Crohn?s) at goal rate, plus propofol. Prognosis is improving in so far as his pulmonary status goes. I spoke to the patient?s HCP, his sister Judith Kauffman ([phone]) yesterday about his current condition vis-?-vis his respiratory status and his brain status.? Doing well with the former, not so much with the latter.? He?ll need a tracheostomy.? She readily agreed.? I don?t think she has any contextual perspective on whether or not he would want that, vs. a consideration of end-of-life care.? I texted Dr. Ramirez and let him know.? Will plan for next week. Critical Care Time (minutes): 45 Physical Exam Verdana 4l Vital Signs: Verdana 4d Verdana 4d Vital Signs: Verdana 4d Verdana 4Bd Last Vital Signs Verdana 4d Supplier Development Manager New 4d Supplier Development Manager New 4d Temp 97.3 F 07/06/21 17:00 Supplier Development Manager New 4d Pulse 100 07/06/21 17:00 Supplier Development Manager New 4d Resp 19 07/06/21 17:00 BP 153/86 H 07/06/21 17:00 Pulse Ox 93 07/06/21 17:00 Oxygen Flow Rate 10 06/15/21 00:21 BMI result Body Mass Index 28.3 Objective Data Labs CBC & Chem 7: 07/05/21 05:20 07/05/21 05:20 Labs: Laboratory Results - last 24 hr 07/05/21 07/05/21 07/05/21 17:58 21:28 23:21 POC Glucose 231 H 161 H Stool Occult Blood POSITIVE 07/06/21 07/06/21 05:47 12:00 POC Glucose 179 H 130 H Stool Occult Blood Microbiology Microbiology Results: Microbiology 06/21/21 Unknown Urine Catheterized - [facility] Catheter Urine Culture - Final Escherichia coli 06/21/21 13:06 Sputum - Suctioned Gram Stain - Final 06/21/21 13:06 Sputum - Suctioned Sputum Culture - Final Escherichia coli 06/20/21 15:30 Sputum - Suctioned Gram Stain - Final 06/20/21 15:30 Sputum - Suctioned Sputum Culture - Final Escherichia coli 06/15/21 00:51 Blood - Venous Blood Culture - Final No growth after 5 days. 06/15/21 00:50 Blood - Venous Blood Culture - Final No growth after 5 days. Quality Stroke Does the patient have a stroke diagnosis?: No VTE Prior VTE?: No VTE Risk Level:: Medical - moderate - high VTE Device Contraindication: N/A - Device Ordered VTE Drug Contraindication: N/A - Med Ordered
[2021-07-06 17:53] LABS: Glucose, Whole Blood 179 mg/dL (60-115)
[2021-07-06] MEDS: propofoL 1,000 MG/100 ML VIAL 13.81 MG IVCONT (19:43)
[2021-07-06] MEDS: Melatonin 3 MG TABLET 9 MG G-TUBE (19:43)
[2021-07-06 23:53] LABS: Glucose, Whole Blood 169 mg/dL (60-115)
[2021-07-07] VITALS (34 sets, daily range): BP systolic 84–167; BP diastolic 35–89; PULSE 58–135; RESP 14–27; TEMP 33.9–38; O2SAT 90–97
[2021-07-07] MEDS: Insulin Lispro 100 UNIT/ML 3 ML VIAL SUBCUT ×5 (00:06→23:54)
[2021-07-07] MEDS: Metoprolol Tartrate 5 MG/5 ML VIAL IVPUSH (00:54)
[2021-07-07] MEDS: propofoL 1,000 MG/100 ML VIAL 20.72 MG IVCONT ×3 (02:01→11:08)
[2021-07-07] MEDS: Ascorbic Acid 500 MG TABLET 1000 MG G-TUBE ×4 (02:01→20:03)
[2021-07-07 05:43] LABS: VBG Base Excess 6.9 mmol/L; VBG HCO3 30 mmol/L (22-26); VBG pCO2 40 mmHg; VBG pH 7.48 (7.32-7.43); VBG pO2 44 mmHg
[2021-07-07 06:21] LABS: Hematocrit 32.1 % (42.0-52.0); Hemoglobin 9.6 g/dl (14.0-18.0); Imm Gran Abs Auto 0.19 X10*3/uL (0.00-0.03); Imm Gran Pct Auto 1.8 % (0.0-0.4); Lymphocytes Absolute Auto 0.6 X10*3/uL (1.2-4.9); Lymphocytes Percent Auto 5.1 % (20-40); MANUAL DIFF FLAG SCAN; Mean Corpuscular HGB Conc 29.9 g/dl (31.0-36.0); Mean Corpuscular Hemoglobin 24.8 pg (27.0-33.0); Mean Corpuscular Volume 82.9 fL (80.0-98.0); Mean Platelet Volume 9.8 fL (9.4-12.4); Monocytes Absolute Auto 0.3 X10*3/uL (0.1-1.2); Monocytes Percent Auto 2.4 % (2-11); Neutrophils Absolute Auto 9.7 x10*3/uL (2.0-8.3); Neutrophils Percent Auto 90.7 % (45-73); Platelet Count 478 X10*3/uL (160-400); Red Blood Count 3.87 X10*6/uL (4.60-5.80); Red Cell Distribution Width 16.8 % (11.0-16.0); SCAN SMEAR FLAG 1; White Blood Count 10.7 X10*3/uL (4.8-10.8)
[2021-07-07 06:27] LABS: Alanine Aminotransferase 16 U/L (0-40); Albumin Level 3.1 g/dL (3.5-5.0); Alkaline Phosphatase 77 U/L (39-117); Anion Gap 13 (12-20); Aspartate Amino Transferase 10 U/L (5-37); Bilirubin Total 0.4 mg/dL (0.0-1.0); Blood Urea Nitrogen 34 mg/dL (9-16); Calcium 9.7 mg/dL (8.4-10.2); Carbon Dioxide 29 mmol/L (22-29); Chloride 104 mmol/L (96-108); Creatinine Clr Calc Pharmacy 155.4; Estimated Glomerular Filt Rate > 60; Glucose Random 225 mg/dL (60-115); Potassium 4.5 mmol/L (3.3-5.1); Sodium 141 mmol/L (135-145)
[2021-07-07 06:29] LABS: Venous Blood Gas Refer to POC result
[2021-07-07 06:53] LABS: SLIDE REVIEW VERIFIED
[2021-07-07] MEDS: 0.9 % Sodium Chloride Flush 3 ML SYRINGE IVFLUSH ×3 (08:33→23:23)
[2021-07-07] MEDS: Insulin Glargine,Hum.rec.anlog 100 UNIT/ML 10 ML VIAL 80 UNIT SUBCUT ×2 (09:03→20:04)
[2021-07-07] MEDS: Chlorhexidine Gluc Oral Rinse 15 ML MOUTHWASH BUCCAL ×3 (09:03→20:04)
[2021-07-07] MEDS: Enoxaparin Sodium 40 MG/0.4 ML SYRINGE SUBCUT (09:03)
[2021-07-07] MEDS: Spironolactone 25 MG TABLET 100 MG G-TUBE ×2 (09:04→20:04)
[2021-07-07] MEDS: Atorvastatin Calcium 80 MG TABLET G-TUBE (09:04)
[2021-07-07] MEDS: Thiamine HCL 100 MG TABLET 200 MG G-TUBE ×2 (09:04→20:03)
[2021-07-07] MEDS: Cholecalciferol (Vitamin D3) 25 MCG TABLET 50 MCG G-TUBE (09:04)
[2021-07-07] MEDS: fluvoxaMINE Maleate 50 MG TABLET 100 MG G-TUBE ×2 (09:04→20:04)
[2021-07-07] MEDS: Aspirin 325 MG TABLET G-TUBE (09:04)
[2021-07-07] MEDS: fentaNYL citrate/NS 1,000 MCG/100 ML PLAST..BAG 10 MCG IVCONT (09:13)
--- NOTE | 2021-07-07 11:05 | P.PNCC_ITS ---
Subjective Subjective Date of Service: 07/07/21 Interval History: Mr. Jamari Johnson was transferred to ICU on Jun 19 bec of acute encephalopathy in the setting of hypoxemic respiratory failure 2? COVID pneumonia. The patient is a 60 yo M with PMHx of AML in remission, Crohn's/UC on Stelara and methotrexate.? The patient had a COVID KRISTOPHER negative on 06/02/21.? Previously had COVID vaccine 2 shots. Presented to the ED on Jun 15 with SOB for a few days.? COVID positive.? [Jun 09 estimated symptom onset date.)? CXR showed severe diffuse bilateral patchy airspace opacities.? Initial DDimer 338, CRP 10.? CTPA showed severe bilateral COVID pneumonia.? There is no PE, normal right heart, normal pulmonary arteries, left ventricle looked a little dilated. Treated with remdesivir and dexamethasone.? Hospital course significant for progressive hypoxemia.? On Jun 19, reported to have snorted cocaine brought in by family, culminating in an episode of acute delirium/encephalopathy that required transfer to intensive care unit and tracheal intubation.? (Urine tox screen early June 20 was positive for cocaine.)? Urine and sputum from Jun 21 grew out a sensitive Ecoli.? Further complicated by development of pneumomediastinum with subcutaneous emphysema on Jun 27, but no pneumothorax. This week, PEEP level kept at 5cm to prevent further barotrauma.? The patient?s ventilatory status has slowly improved, as has his oxygenation.? FiO2 now down to 40%.? We?ve been doing sedation holidays this week for 4-8 hours.? He opens his eyes spontaneously, moves his eyes around, moves all 4 of his extremities slightly, but still 100% non interactive, no tracking, no response to confr ontation. On propofol 30ug and fentanyl 100ug, on PC16, 20/5, 40%, RR is 16, Vt 470cc, Ve 7.9 L, PIP 26cm, ETCO2 32, Sat 97%.? CVBG 748/40/+6.? Tmax 100.4?.? HR 60, SR.? BP 93/47.? No JVD at 30?.? Chest is CTA.? Normal exp phase.? Heart rate and rhythm are regular, with known ascending S1 and S2, with no murmur or gallops. ?Abdomen is benign.? Trace thigh edema.? Neuro exam is nonfocal, albeit noninteractive. LABORATORY DATA: ?Below.? Notably, BUN up slightly.? POCs in the 170 range on Lispro 80u bid. Chest x-ray.? Bilat infiltrates, no change.? No pneumothorax or pneumomediastinum. IMPRESSION: 1. Underlying immunosuppression secondary to AML in remission, and Crohn's/UC previously on Stelara mab and methotrexate. 2. Severe bilateral COVID pneumonia.? Symptom onset date maybe around Jun 09.? Course complicated by pneumomediastinum.? I changed his Decadron to Solumedrol 80mg bid, upped his Lovenox to 40 mg bid, added Vit C, Vit D, ASA, thiamine, melatonin, sprironolactone 100 mg bid, fluvoxamine 100mg bid, Atoravastin 80 mg daily.? Did not qualify for baricitinib secondary to underlying immune suppression. 3. Bilateral pulmonary infiltrates with ARDS.? Secondary to above. 4. Acute hypoxemic respiratory failure.? Secondary to above.? FiO2 coming down gradually but steadily during the week.? Ready for tracheostomy.? Dr. Ramirez will set it up for this coming week. 5. Barotrauma, with pneumomediastinum.? Stable.? Carries a poor prognosis in COVID patients.? Continue to minimize peak pressures.? Follow serial CXRs prn. 6. Neuro:? Unresponsive during sedation holiday.? Not much improvement throughout the week.? CT tonight or tomorrow. 7. ID:? The sputum from Jun 20 that grew out Ecoli is somewhat equivocal, given the polymicrobial Gram stain.? But he got a full coarse of ceftriaxone anyway.? Currently afebrile, white count up a bit.? Not yet time to reculture. 7. DM.? Increased Lantus to 80u bid.? Continue SS Lispro. 8. Anemia.? Transfused 1 unit RBCs.? Stool hemoccult was positive 07/05 after negative on 07/03.? No gross GI bleeding? Recheck next stool. 9. Metabolic alkalosis.? Improved on Diamox.? Back on low dose for now. 10. Nutrition.? On Vital 1.5 (bec of the Crohn?s) at goal rate, plus propofol. Prognosis is improving in so far as his pulmonary status goes. I spoke to the patient?s HCP, his sister Judith Kauffman ([phone]) on Jul 05 about his current condition vis-?-vis his respiratory status and his brain status.? Doing well with the former, not so much with the latter.? He?ll need a tracheostomy.? She readily agreed.? I don?t think she has any perspective on whether or not he would want that, vs. a consideration of end-of-life care.? I texted Dr. Ramirez, he is planning for next week. Critical Care Time (minutes): 45 Physical Exam Verdana 4l Vital Signs: Verdana 4d Verdana 4d Vital Signs: Verdana 4d Verdana 4Bd Last Vital Signs Verdana 4d Marketing Communications Associate New 4d Marketing Communications Associate New 4d Temp 99.5 F 07/07/21 10:00 Marketing Communications Associate New 4d Pulse 71 07/07/21 10:00 Marketing Communications Associate New 4d Resp 16 07/07/21 10:00 BP 94/50 L 07/07/21 10:00 Pulse Ox 96 07/07/21 10:00 Oxygen Flow Rate 10 06/15/21 00:21 BMI result Body Mass Index 28.3 Objective Data Labs CBC & Chem 7: 07/07/21 05:41 07/07/21 05:41 Labs: Laboratory Results - last 24 hr 07/06/21 07/06/21 07/06/21 12:00 17:47 23:50 WBC RBC Hgb Hct MCV MCH MCHC RDW Plt Count MPV Immature Gran % (Auto) Neut % (Auto) Lymph % (Auto) [place] % (Auto) Eos % (Auto) Baso % (Auto) Lymph # (Auto) [place] # (Auto) Eos # (Auto) Baso # (Auto) Abs Immat Gran (auto) Absolute Neuts (auto) Absolute Nucleated RBC Nucleated RBC % (auto) Smear Tech's Comments VBG pH VBG pCO2 VBG pO2 VBG HCO3 VBG O2 Saturation VBG Base Excess Sodium Potassium Chloride Carbon Dioxide Anion Gap BUN Creatinine Estim Creat Clear Calc Estimated GFR POC Glucose 130 H 179 H 169 H Random Glucose Calcium Phosphorus Magnesium Total Bilirubin AST ALT Alkaline Phosphatase Total Protein Albumin 07/07/21 07/07/21 07/07/21 05:36 05:41 05:41 WBC 10.7 RBC 3.87 L Hgb 9.6 L Hct 32.1 L MCV 82.9 MCH 24.8 L MCHC 29.9 L RDW 16.8 H Plt Count 478 H MPV 9.8 Immature Gran % (Auto) 1.8 H Neut % (Auto) 90.7 H Lymph % (Auto) 5.1 L [place] % (Auto) 2.4 Eos % (Auto) 0.0 Baso % (Auto) 0.0 Lymph # (Auto) 0.6 L [place] # (Auto) 0.3 Eos # (Auto) 0.0 Baso # (Auto) 0.0 Abs Immat Gran (auto) 0.19 H Absolute Neuts (auto) 9.7 H Absolute Nucleated RBC 0.000 Nucleated RBC % (auto) 0.0 Smear Tech's Comments VERIFIED VBG pH 7.48 H VBG pCO2 40 VBG pO2 44 VBG HCO3 30 H VBG O2 Saturation 75.0 VBG Base Excess 6.9 Sodium 141 Potassium 4.5 Chloride 104 Carbon Dioxide 29 Anion Gap 13 BUN 34 H Creatinine 0.64 Estim Creat Clear Calc 155.4 Estimated GFR > 60 POC Glucose Random Glucose 225 H Calcium 9.7 Phosphorus 3.0 Magnesium 2.0 Total Bilirubin 0.4 AST 10 ALT 16 Alkaline Phosphatase 77 Total Protein 6.0 L Albumin 3.1 L Microbiology Microbiology Results: Microbiology 06/21/21 Unknown Urine Catheterized - [facility] Catheter Urine Culture - Final Escherichia coli 06/21/21 13:06 Sputum - Suctioned Gram Stain - Final 06/21/21 13:06 Sputum - Suctioned Sputum Culture - Final Escherichia coli 06/20/21 15:30 Sputum - Suctioned Gram Stain - Final 06/20/21 15:30 Sputum - Suctioned Sputum Culture - Final Escherichia coli 06/15/21 00:51 Blood - Venous Blood Culture - Final No growth after 5 days. 06/15/21 00:50 Blood - Venous Blood Culture - Final No growth after 5 days. Quality Stroke Does the patient have a stroke diagnosis?: No VTE Prior VTE?: No VTE Risk Level:: Medical - moderate - high VTE Device Contraindication: N/A - Device Ordered VTE Drug Contraindication: N/A - Med Ordered Critical Care Time Critical Care Time (minutes): 60
[2021-07-07] MEDS: methylPREDNISolone Sod Succ 125 MG/2 ML VIAL 80 MG IVPUSH ×2 (11:08→23:22)
[2021-07-07 11:37] LABS: Glucose, Whole Blood 175 mg/dL (60-115)
[2021-07-07 17:52] LABS: Glucose, Whole Blood 196 mg/dL (60-115)
[2021-07-07] MEDS: propofoL 1,000 MG/100 ML VIAL 34.53 MG IVCONT ×2 (17:58→23:21)
[2021-07-07 18:56] LABS: OBS Int Ctl Valid YES; OBS1 POSITIVE (NEGATIVE)
[2021-07-07] MEDS: Melatonin 3 MG TABLET 9 MG G-TUBE (20:03)
[2021-07-07] MEDS: propofoL 1,000 MG/100 ML VIAL 27.63 MG IVCONT (20:04)
[2021-07-07] MEDS: acetaZOLAMIDE 250 MG TABLET G-TUBE (20:04)
[2021-07-08] VITALS (32 sets, daily range): BP systolic 90–130; BP diastolic 51–73; PULSE 44–90; RESP 14–22; TEMP 34–36.8; O2SAT 87–98; BMI 28.2
[2021-07-08 00:51] LABS: Glucose, Whole Blood 196 mg/dL (60-115)
[2021-07-08] MEDS: propofoL 1,000 MG/100 ML VIAL 34.53 MG IVCONT ×6 (01:46→15:07)
[2021-07-08] MEDS: fentaNYL citrate/NS 1,000 MCG/100 ML PLAST..BAG 5 MCG IVCONT (03:13)
[2021-07-08] MEDS: Ascorbic Acid 500 MG TABLET 1000 MG G-TUBE ×3 (03:14→21:00)
[2021-07-08] MEDS: Insulin Lispro 100 UNIT/ML 3 ML VIAL SUBCUT ×3 (06:12→17:34)
[2021-07-08 06:54] LABS: Glucose, Whole Blood 231 mg/dL (60-115)
[2021-07-08] MEDS: Cholecalciferol (Vitamin D3) 25 MCG TABLET 50 MCG G-TUBE (09:18)
[2021-07-08] MEDS: Thiamine HCL 100 MG TABLET 200 MG G-TUBE ×2 (09:18→21:00)
[2021-07-08] MEDS: acetaZOLAMIDE 250 MG TABLET G-TUBE ×2 (09:18→21:00)
[2021-07-08] MEDS: Atorvastatin Calcium 80 MG TABLET G-TUBE (09:18)
[2021-07-08] MEDS: Aspirin 325 MG TABLET G-TUBE (09:18)
[2021-07-08] MEDS: fluvoxaMINE Maleate 50 MG TABLET 100 MG G-TUBE ×2 (09:18→20:59)
[2021-07-08] MEDS: Spironolactone 25 MG TABLET 100 MG G-TUBE ×2 (09:18→20:59)
[2021-07-08] MEDS: 0.9 % Sodium Chloride Flush 3 ML SYRINGE IVFLUSH ×2 (09:18→17:34)
[2021-07-08] MEDS: methylPREDNISolone Sod Succ 125 MG/2 ML VIAL 80 MG IVPUSH ×2 (09:19→22:04)
[2021-07-08] MEDS: Insulin Glargine,Hum.rec.anlog 100 UNIT/ML 10 ML VIAL 80 UNIT SUBCUT (09:20)
[2021-07-08] MEDS: Chlorhexidine Gluc Oral Rinse 15 ML MOUTHWASH BUCCAL ×3 (09:20→20:59)
[2021-07-08] MEDS: Enoxaparin Sodium 40 MG/0.4 ML SYRINGE SUBCUT (09:20)
--- NOTE | 2021-07-08 11:00 | P.PNCC_ITS ---
Subjective Subjective Date of Service: 07/08/21 Interval History: Mr. Jamari oJhnson was transferred to ICU on Jun 19 bec of acute encephalopathy in the setting of hypoxemic respiratory failure 2? COVID pneumonia. The patient is a 60 yo M with PMHx of AML in remission, Crohn's/UC on Stelara and methotrexate.? The patient had a COVID KRISTOPHER negative on 06/02/21.? Previously had COVID vaccine 2 shots. Presented to the ED on Jun 15 with SOB for a few days.? COVID positive.? [Jun 09 estimated symptom onset date.)? CXR showed severe diffuse bilateral patchy airspace opacities.? Initial DDimer 338, CRP 10.? CTPA showed severe bilateral COVID pneumonia.? There is no PE, normal right heart, normal pulmonary arteries, left ventricle looked a little dilated. Treated with remdesivir and dexamethasone.? Hospital course significant for progressive hypoxemia.? On Jun 19, reported to have snorted cocaine brought in by family, culminating in an episode of acute delirium/encephalopathy that required transfer to intensive care unit and tracheal intubation.? (Urine tox screen early June 20 was positive for cocaine.)? Urine and sputum from Jun 21 grew out a sensitive Ecoli.? Further complicated by development of pneumomediastinum with subcutaneous emphysema on Jun 27, but no pneumothorax. This week, PEEP level kept at 5cm to prevent further barotrauma.? The patient?s ventilatory status has slowly improved, as has his oxygenation.? FiO2 now down to 40%.? We?ve been doing sedation holidays this week for 4-8 hours.? He opens his eyes spontaneously, moves his eyes around, moves all 4 of his extremities slightly, but still 100% non interactive, no tracking, no response to confrontation. On propofol 50ug and fentanyl 50ug, on PC14, 20/5, 40%, RR is 15, Vt 520cc, Ve 7.5 L, PIP 26cm, ETCO2 28, Sat 96%. ?Afebrile.? HR 47, SR.? BP 100/54.? No JVD at 30?.? Chest is CTA.? Normal exp phase.? Heart rate and rhythm are regular, with normal S1 and S2, with no murmur or gallops.? Abdomen is benign.? Trace thigh edema.? Neuro exam is nonfocal, albeit noninteractive. LABORATORY DATA: ?Below.? No labs today.? POCs in the 220 range on Lispro 80u bid. Chest x-ray yesterday.? Bilat infiltrates, no change.? No pneumothorax or pneumomediastinum. IMPRESSION: 1. Underlying immunosuppression secondary to AML in remission, and Crohn's/UC previously on Stelara mab and methotrexate. 2. Severe bilateral COVID pneumonia.? Symptom onset date maybe around Jun 09.? Course complicated by pneumomediastinum.? I changed his Decadron to Solumedrol 80mg bid, upped his Lovenox to 40 mg bid, added Vit C, Vit D, ASA, thiamine, melatonin, sprironolactone 100 mg bid, fluvoxamine 100mg bid, Atoravastin 80 mg daily.? Did not qualify for baricitinib secondary to underlying immune suppression. 3. Bilateral pulmonary infiltrates with ARDS.? Secondary to above. 4. Acute hypoxemic respiratory failure.? Secondary to above.? FiO2 coming down gradually but steadily during the week.? Ready for tracheostomy.? Dr. Ramirez will set it up for this coming week. 5. Barotrauma, with pneumomediastinum.? Stable.? Carries a poor prognosis in COVID patients.? Continue to minimize peak pressures.? Follow serial CXRs prn. 6. Neuro:? Unresponsive during sedation holiday.? Not much improvement throughout the week.? CT tonight or tomorrow. 7. ID:? The sputum from Jun 20 that grew out Ecoli is somewhat equivocal, given the polymicrobial Gram stain.? But he got a full coarse of ceftriaxone anyway.? Currently afebrile, white count up a bit.? Not yet time to reculture. 7. DM.? Increased Lantus to 85u bid.? Continue SS Lispro. 8. Anemia.? Transfused 1 unit RBCs.? Stool hemoccult was positive 07/05 after negative on 07/03.? No gross GI bleeding? Recheck next stool. 9. Metabolic alkalosis.? Improved on Diamox.? Back on low dose for now. 10. Nutrition.? On Vital 1.5 (bec of the Crohn?s) at goal rate, plus propofol. Prognosis is improving in so far as his pulmonary status goes. I spoke to the patient?s HCP, his sister Judith Kauffman ([phone]) on Jul 05 about his current condition vis-?-vis his respiratory status and his brain status.? Doing well with the former, not so much with the latter.? He?ll need a tracheostomy.? She readily agreed.? I don?t think she has any perspective on whether or not he would want that, vs. a consideration of end-of-life care.? Dr. Ramirez is planning for next week. Critical Care Time (minutes): 45 Physical Exam Verdana 4l Vital Signs: Verdana 4d Verdana 4d Vital Signs: Verdana 4d Verdana 4Bd Last Vital Signs Verdana 4d Visual Basic Developer New 4d Visual Basic Developer New 4d Temp 97.3 F 07/08/21 10:00 Visual Basic Developer New 4d Pulse 50 07/08/21 10:00 Visual Basic Developer New 4d Resp 14 07/08/21 10:00 BP 126/69 07/08/21 10:00 Pulse Ox 96 07/08/21 10:00 Oxygen Flow Rate 10 06/15/21 00:21 BMI result Body Mass Index 28.2 Objective Data Labs CBC & Chem 7: 07/07/21 05:41 07/07/21 05:41 Labs: Laboratory Results - last 24 hr 07/07/21 07/07/21 07/07/21 11:32 17:45 18:49 POC Glucose 175 H 196 H Stool Occult Blood POSITIVE 07/07/21 07/08/21 23:29 05:59 POC Glucose 196 H 231 H Stool Occult Blood Microbiology Microbiology Results: Microbiology 06/21/21 Unknown Urine Catheterized - Villa Catheter Urine Culture - Final Escherichia coli 06/21/21 13:06 Sputum - Suctioned Gram Stain - Final 06/21/21 13:06 Sputum - Suctioned Sputum Culture - Final Escherichia coli 06/20/21 15:30 Sputum - Suctioned Gram Stain - Final 06/20/21 15:30 Sputum - Suctioned Sputum Culture - Final Escherichia coli 06/15/21 00:51 Blood - Venous Blood Culture - Final No growth after 5 days. 06/15/21 00:50 Blood - Venous Blood Culture - Final No growth after 5 days. Quality Stroke Does the patient have a stroke diagnosis?: No VTE Prior VTE?: No VTE Risk Level:: Medical - moderate - high VTE Device Contraindication: N/A - Device Ordered VTE Drug Contraindication: N/A - Med Ordered Critical Care Time Critical Care Time (minutes): 60
[2021-07-08 11:21] LABS: Glucose, Whole Blood 221 mg/dL (60-115)
[2021-07-08] MEDS: fentaNYL citrate/NS 1,000 MCG/100 ML PLAST..BAG 30 MCG IVCONT (15:56)
[2021-07-08 17:36] LABS: Glucose, Whole Blood 245 mg/dL (60-115)
[2021-07-08] MEDS: propofoL 1,000 MG/100 ML VIAL 13.81 MG IVCONT (20:42)
[2021-07-08] MEDS: Melatonin 3 MG TABLET 9 MG G-TUBE (21:00)
[2021-07-08 21:41] LABS: Glucose, Whole Blood 139 mg/dL (60-115)
[2021-07-08] MEDS: Insulin Glargine,Hum.rec.anlog 100 UNIT/ML 10 ML VIAL 85 UNIT SUBCUT (22:03)
[2021-07-09] VITALS (29 sets, daily range): BP systolic 107–157; BP diastolic 55–91; PULSE 12–126; RESP 12–31; TEMP 33.9–37.7; O2SAT 91–97
[2021-07-09 00:05] LABS: Glucose, Whole Blood 110 mg/dL (60-115)
[2021-07-09] MEDS: 0.9 % Sodium Chloride Flush 3 ML SYRINGE IVFLUSH ×4 (00:09→20:31)
[2021-07-09 00:20] LABS: OBS1 POSITIVE (NEGATIVE)
[2021-07-09 00:21] LABS: OBS Int Ctl Valid YES
[2021-07-09] MEDS: Ascorbic Acid 500 MG TABLET 1000 MG G-TUBE (03:00)
[2021-07-09] MEDS: propofoL 1,000 MG/100 ML VIAL 13.81 MG IVCONT (03:22)
[2021-07-09 05:39] LABS: MANUAL DIFF FLAG NO
[2021-07-09 05:45] LABS: Basophils Percent Auto 0.1 % (0-2); Hematocrit 34.3 % (42.0-52.0); Hemoglobin 10.3 g/dl (14.0-18.0); Imm Gran Abs Auto 0.16 X10*3/uL (0.00-0.03); Imm Gran Pct Auto 1.3 % (0.0-0.4); Lymphocytes Absolute Auto 0.7 X10*3/uL (1.2-4.9); Lymphocytes Percent Auto 5.8 % (20-40); Mean Corpuscular Hemoglobin 24.5 pg (27.0-33.0); Mean Corpuscular Volume 81.5 fL (80.0-98.0); Mean Platelet Volume 9.9 fL (9.4-12.4); Monocytes Absolute Auto 0.4 X10*3/uL (0.1-1.2); Monocytes Percent Auto 3.2 % (2-11); Neutrophils Absolute Auto 10.9 x10*3/uL (2.0-8.3); Neutrophils Percent Auto 89.6 % (45-73); Platelet Count 409 X10*3/uL (160-400); Red Blood Count 4.21 X10*6/uL (4.60-5.80); Red Cell Distribution Width 16.8 % (11.0-16.0); White Blood Count 12.2 X10*3/uL (4.8-10.8)
[2021-07-09 06:01] LABS: Alanine Aminotransferase 14 U/L (0-40); Albumin Level 2.5 g/dL (3.5-5.0); Alkaline Phosphatase 58 U/L (39-117); Anion Gap 8 (12-20); Aspartate Amino Transferase 10 U/L (5-37); Bilirubin Total 0.3 mg/dL (0.0-1.0); Blood Urea Nitrogen 25 mg/dL (9-16); Calcium 7.4 mg/dL (8.4-10.2); Carbon Dioxide 21 mmol/L (22-29); Chloride 115 mmol/L (96-108); Creatinine Clr Calc Pharmacy 220.7; Estimated Glomerular Filt Rate > 60; Glucose Random 97 mg/dL (60-115); Potassium 3.3 mmol/L (3.3-5.1); Sodium 141 mmol/L (135-145); Total Protein 4.6 g/dL (6.5-8.0)
[2021-07-09 07:01] LABS: Glucose, Whole Blood 115 mg/dL (60-115)
--- NOTE | 2021-07-09 10:09 | MHC.CLN ---
F/U TF REMAINS INTUBATED AND SEDATED PENDING TRACH/PEG THIS WEEK PT RECEIVING VITAL 1.5 AT MAX GOAL RATE 45 ML/HR WITH 30 ML OF PROSOURCE TID WITH 240 ML FREE WATER FLUSHES Q 4 HRS PROVIDES 1800KCALS (20KCALS/KG BASED ON IBW), 118 G TOTAL PROTEIN (1.2 G/KG BASED ON CMW), 2265 ML TOTAL WATER FROM FORMULA AND FLUSHES (25 ML/KG BASED ON IBW). TOLERATING WELL PER NSG PROSOURCE TID IN PLACE WILL PROMOTE WOUND HEALING MONITOR TOLERANCE, RESIDUALS AND LYTES IF PROPOFOL TO REMAIN OFF; RECOMMEND INCREASING TF VITAL 1.5 AT MAX GOAL RATE 60ML/HR
[2021-07-09] MEDS: methylPREDNISolone Sod Succ 125 MG/2 ML VIAL 60 MG IVPUSH ×2 (10:18→20:29)
[2021-07-09] MEDS: Potassium Chloride Packet 20 MEQ PACKET PO (10:18)
[2021-07-09] MEDS: Aspirin 325 MG TABLET G-TUBE (10:18)
[2021-07-09] MEDS: Thiamine HCL 100 MG TABLET 200 MG G-TUBE ×2 (10:19→20:30)
[2021-07-09] MEDS: fluvoxaMINE Maleate 50 MG TABLET 100 MG G-TUBE ×2 (10:19→20:30)
[2021-07-09] MEDS: Enoxaparin Sodium 40 MG/0.4 ML SYRINGE SUBCUT (10:19)
[2021-07-09] MEDS: Atorvastatin Calcium 80 MG TABLET G-TUBE (10:19)
[2021-07-09] MEDS: Chlorhexidine Gluc Oral Rinse 15 ML MOUTHWASH BUCCAL ×3 (10:19→20:29)
[2021-07-09] MEDS: Insulin Glargine,Hum.rec.anlog 100 UNIT/ML 10 ML VIAL 85 UNIT SUBCUT (10:20)
[2021-07-09 11:58] LABS: Glucose, Whole Blood 54 mg/dL (60-115)
[2021-07-09] MEDS: Dextrose 50 % 25 GM/50 ML SYRINGE IVPUSH (12:23)
[2021-07-09 13:59] LABS: Glucose, Whole Blood 111 mg/dL (60-115)
[2021-07-09] MEDS: Midazolam HCl/NS 50 MG/50 ML PLAST..BAG IVCONT (15:00)
[2021-07-09] MEDS: Midazolam HCl/PF 2 MG/2 ML VIAL 4 MG IVPUSH (15:00)
--- NOTE | 2021-07-09 15:26 | P.CONGS_ITS ---
History of Present Illness Consult details Consult date: 07/09/21 Narrative: Patient is a 60-year-old male with a past medical history of ulcerative colitis who presented to [facility] on June 15, 2021 with complaints of shortness of breath. Has tested positive for COVID-19 and subsequently intubated for respiratory failure and currently resides in the ICU on mechanical ventilation. 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 During my examination I was unable to do a interview or physical exam with patient as I do not have a proper N95 fit tested mask on hand. [facility] Past Medical History Medical History Acute promyelocytic leukemia Anxiety Asthma Chronic cholecystitis Chronic idiopathic constipation Colitis Crohn disease Depression Diabetes 1.5, managed as type 1 Diarrhea Elevated serum glutamic pyruvic transaminase (SGPT) level H/O flexible sigmoidoscopy Hypertension Kidney disease Left sided abdominal pain Morbid obesity Renal stones 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) Family History Family history: reviewed and not pertinent Surgical History Surgical History H/O lithotripsy H/O rectal sphincterotomy History of cholecystectomy History of colonoscopy History of hemorrhoidectomy Social History Social History Household Members: Family Housing: Apartment Do you presently have visiting nurse or other home services: No Alcohol intake: never Patient Tobacco Use Status: Never used Tobacco e-Cigarette/Vaping Use: Never Used Second Hand Smoke Exposure: No Advance Directives Date on File: 04/04/21 service: No Current occupational status: disabled Meds Allergies Allergy/AdvReac Type Severity Reaction Status Date / Time lorazepam [From Ativan] AdvReac Severe AGITATION Verified 06/20/21 00:19 ? EDEMA none Allergy Unknown Unknown Uncoded 04/02/21 16:05 Active Medications: Current Medications Aspirin (Aspirin 325 Mg Tablet) 325 mg G-TUBE DAILY [facility] Last Admin: 07/09/21 10:18 Dose: 325 mg Documented by: Atorvastatin Calcium (Atorvastatin Calcium 80 Mg Tablet) 80 mg G-TUBE DAILY [facility] Last Admin: 07/09/21 10:19 Dose: 80 mg Documented by: Chlorhexidine Gluconate (Chlorhexidine Gluc Oral Rinse 15 Ml Mouthwash) 15 ml BUCCAL TID [facility] Last Admin: 07/09/21 15:15 Dose: 15 ml Documented by: Dextrose (Dextrose 50 % 25 Gm/50 Ml Syringe) 25 gm IVPUSH Q15M PRN PRN Reason: per Hypoglycemia Standing Ord. Last Admin: 07/09/21 12:23 Dose: 25 gm Documented by: Docusate Sodium (Docusate Sodium 100 Mg Capsule) 100 mg PO DAILY PRN PRN Reason: Constipation Enoxaparin Sodium (Enoxaparin Sodium 40 Mg/0.4 Ml Syringe) 40 mg SUBCUT Q24H [facility] Last Admin: 07/09/21 10:19 Dose: 40 mg Documented by: Fluvoxamine Maleate (Fluvoxamine Maleate 50 Mg Tablet) 100 mg G-TUBE BID [facility] Last Admin: 07/09/21 10:19 Dose: 100 mg Documented by: Midazolam HCl (Versed) 50 mg in 50 mls @ 2 mls/hr IVCONT .Q24H [facility] Last Admin: 07/09/21 15:00 Dose: 2 mg/hr, 2 mls/hr Documented by: Cefazolin Sodium 2 gm/ Sodium (Chloride) 50 mls @ 100 mls/hr IV PREOP ONE Stop: 07/10/21 01:29 Insulin Glargine (Insulin Glargine,Hum.Rec.Anlog 100 Unit/Ml 10 Ml Vial) 50 unit SUBCUT BID [facility] Insulin Human Lispro (Insulin Lispro 100 Unit/Ml 3 Ml Vial) 0 unit SUBCUT Q6H [facility]; Protocol Last Admin: 07/09/21 11:52 Dose: Not Given Documented by: Methylprednisolone Sodium Succinate (Methylprednisolone Sod Succ 125 Mg/2 Ml Vial) 60 mg IVPUSH Q12H [facility] Last Admin: 07/09/21 10:18 Dose: 60 mg Documented by: Omeprazole (Omeprazole 20 Mg/10 Ml Susp.Recon) 40 mg PO DAILY@0630 [facility] Last Admin: 07/09/21 06:41 Dose: 40 mg Documented by: Sodium Chloride (0.9 % Sodium Chloride Flush 3 Ml Syringe) 3 ml IVFLUSH QSHIFT [facility] Last Admin: 07/09/21 15:20 Dose: 3 ml Documented by: Thiamine HCl (Thiamine Hcl 100 Mg Tablet) 200 mg G-TUBE BID [facility] Last Admin: 07/09/21 10:19 Dose: 200 mg Documented by: Home Medications Medication Instructions Recorded Confirmed Last Taken Type glyburide 5 mg 5 mg PO BID 03/22/20 06/15/21 05/14/21 History tablet lisinopril 5 mg 5 mg PO DAILY 03/22/20 06/15/21 05/14/21 History tablet mirtazapine 30 30 mg PO 03/22/20 06/15/21 05/14/21 History mg tablet BEDTIME folic acid 1 mg 1 mg PO DAILY 02/14/21 06/15/21 05/14/21 History tablet melatonin 5 mg 1 tab PO 02/14/21 06/15/21 05/14/21 History tablet BEDTIME PRN paroxetine HCl 40 mg PO DAILY 02/14/21 06/15/21 06/01/21 09:00 History 40 mg tablet hydroxyzine 100 mg PO 04/02/21 06/15/21 05/14/21 History pamoate 50 mg BEDTIME PRN capsule ustekinumab 90 90 mg SUBCUT 04/02/21 06/15/21 05/13/21 History mg/mL Q8W subcutaneous syringe (Stelara) methotrexate 25 mg PO Q7D 05/15/21 06/15/21 05/08/21 History sodium 2.5 mg tablet prednisone 10 4 tab PO DAILY 06/02/21 06/15/21 Unknown History mg tablet doxycycline 1 tab PO BID 06/15/21 06/15/21 Unknown History monohydrate 100 mg tablet Physical Exam Verdana 4l Vital Signs: Verdana 4d Verdana 4d Vital Signs: Verdana 4d Verdana 4Bd Last Vital Signs Verdana 4d Voip Network Technician New 4d Voip Network Technician New 4d Temp 99.5 F 07/09/21 15:00 Voip Network Technician New 4d Pulse 126 H 07/09/21 15:00 Voip Network Technician New 4d Resp 30 H 07/09/21 15:00 BP 144/79 H 07/09/21 15:00 Pulse Ox 93 07/09/21 15:00 Oxygen Flow Rate 10 06/15/21 00:21 BMI result Body Mass Index 28.2 Results Labs Result diagrams: 07/09/21 05:20 07/09/21 05:20 Labs: Abnormal lab results 07/08/21 07/08/21 07/09/21 Range/Units 17:31 21:25 05:20 WBC 12.2 H (4.8-10.8) X10*3/uL RBC 4.21 L (4.60-5.80) X10*6/uL Hgb 10.3 L (14.0-18.0) g/dl Hct 34.3 L (42.0-52.0) % MCH 24.5 L (27.0-33.0) pg MCHC 30.0 L (31.0-36.0) g/dl RDW 16.8 H (11.0-16.0) % Plt Count 409 H (160-400) X10*3/uL Immature Gran % (Auto) 1.3 H (0.0-0.4) % Neut % (Auto) 89.6 H (45-73) % Lymph % (Auto) 5.8 L (20-40) % Lymph # (Auto) 0.7 L (1.2-4.9) X10*3/uL Abs Immat Gran (auto) 0.16 H (0.00-0.03) X10*3/uL Absolute Neuts (auto) 10.9 H (2.0-8.3) x10*3/uL Chloride (96-108) mmol/L Carbon Dioxide (22-29) mmol/L Anion Gap (12-20) BUN (9-16) mg/dL Creatinine (0.5-1.4) mg/dL POC Glucose 245 H 139 H (60-115) mg/dL Calcium (8.4-10.2) mg/dL Total Protein (6.5-8.0) g/dL Albumin (3.5-5.0) g/dL 07/09/21 07/09/21 Range/Units 05:20 11:52 WBC (4.8-10.8) X10*3/uL RBC (4.60-5.80) X10*6/uL Hgb (14.0-18.0) g/dl Hct (42.0-52.0) % MCH (27.0-33.0) pg MCHC (31.0-36.0) g/dl RDW (11.0-16.0) % Plt Count (160-400) X10*3/uL Immature Gran % (Auto) (0.0-0.4) % Neut % (Auto) (45-73) % Lymph % (Auto) (20-40) % Lymph # (Auto) (1.2-4.9) X10*3/uL Abs Immat Gran (auto) (0.00-0.03) X10*3/uL Absolute Neuts (auto) (2.0-8.3) x10*3/uL Chloride 115 H (96-108) mmol/L Carbon Dioxide 21 L (22-29) mmol/L Anion Gap 8 L (12-20) BUN 25 H (9-16) mg/dL Creatinine 0.45 L (0.5-1.4) mg/dL POC Glucose 54 L* (60-115) mg/dL Calcium 7.4 L D (8.4-10.2) mg/dL Total Protein 4.6 L D (6.5-8.0) g/dL Albumin 2.5 L (3.5-5.0) g/dL Short CBC 07/09/21 Range/Units 05:20 WBC 12.2 H (4.8-10.8) X10*3/uL Hgb 10.3 L (14.0-18.0) g/dl Hct 34.3 L (42.0-52.0) % Plt Count 409 H (160-400) X10*3/uL BMP 07/09/21 05:20 Sodium 141 Potassium 3.3 D Chloride 115 H Carbon Dioxide 21 L BUN 25 H Creatinine 0.45 L Calcium 7.4 L D Liver Function 07/09/21 Range/Units 05:20 Total Bilirubin 0.3 (0.0-1.0) mg/dL AST 10 (5-37) U/L ALT 14 (0-40) U/L Alkaline Phosphatase 58 D (39-117) U/L Albumin 2.5 L (3.5-5.0) g/dL Urine 06/15/21 06/21/21 Range/Units 03:17 09:33 Urine Color YELLOW YELLOW Urine Appearance CLEAR CLOUDY Urine pH 6.0 6.0 (5.0-8.0) Ur Specific [place] 1.020 1.020 (1.005-1.025) Urine Protein NEG 1+ H (NEG-TRACE) MG/DL Urine Glucose (UA) 250 H NEG (NEG) MG/DL All other labs normal. Assessment and Plan (1) Acute respiratory distress syndrome (ARDS): Status: Acute Plan Patient is a 60-year-old male resents with acute respiratory failure secondary to COVID-19 bilateral pneumonia. Patient remains on mechanical ventilation and has been to failure to wean. 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 Tracheostomy and PEG placement scheduled for 07/10/2021 at [facility] OR. Kefzol 2 g IV to be given by anesthesia 1 hour prior to surgical incision. N.p.o. tonight at midnight. Type and screen. Advised to hold anticoagulation therapy tomorrow morning prior to procedure. Which includes aspirin and Lovenox. We will obtain surgical's consent from healthcare proxy tomorrow prior to procedure. Procedures Date of Service Date of Service: 07/10/21
--- NOTE | 2021-07-09 16:39 | MHC.CM.PN ---
Patient remain intubated/vented in ICU. Anticipate trach/peg placement this week. Referral already made to [facility]. Continue to monitor for d/c needs.
--- NOTE | 2021-07-09 17:14 | P.PNCC_ITS ---
Subjective Subjective Date of Service: 07/09/21 Interval History: patient remained off propofol most of the day he did awaken but no demonstration of cognitive function but moved all 4 extremities bedside echo shows well recovered myocardium with 50-55% ejection fraction again no primary valve or pericardial disease lungs by chest x-ray clearing FiO2 down to 40% minutes ventilatory requirements are less than 10 L but again no meaningful cognitive function so we will recent date but I am going to use a low-dose of IV Versed because of the length of time and the amount of propofol he had been on I have concerns stable normal sinus rhythm unchanged EKG and all lab work is well sustained Critical Care Time (minutes): 60 Physical Exam Verdana 4l Vital Signs: Verdana 4d Verdana 4d Vital Signs: Verdana 4d Verdana 4Bd Last Vital Signs Verdana 4d Computer Repair Technician New 4d Computer Repair Technician New 4d Temp 99.7 F 07/09/21 17:00 Computer Repair Technician New 4d Pulse 101 H 07/09/21 17:00 Computer Repair Technician New 4d Resp 22 H 07/09/21 17:00 BP 115/70 07/09/21 17:00 Pulse Ox 96 07/09/21 17:00 Oxygen Flow Rate 10 06/15/21 00:21 BMI result Body Mass Index 28.2 vital signs stable nonfocal neuro logically cardiovascular with normal LV function by bedside echo for clearing chest x-ray and he remains afebrile and the E coli that grew from both sputum in urine certainly had been treated for greater than 1 week with either Levaquin or meropenem and then finally ceftriaxone but I will do my own set of surveillance cultures again abdomen X is doing well with feedings it is soft wi th no organomegaly skin intact Objective Data Labs CBC & Chem 7: 07/10/21 04:40 07/10/21 04:40 Labs: Laboratory Results - last 24 hr 07/08/21 07/08/21 07/08/21 17:31 21:25 23:37 WBC RBC Hgb Hct MCV MCH MCHC RDW Plt Count MPV Immature Gran % (Auto) Neut % (Auto) Lymph % (Auto) [place] % (Auto) Eos % (Auto) Baso % (Auto) Lymph # (Auto) [place] # (Auto) Eos # (Auto) Baso # (Auto) Abs Immat Gran (auto) Absolute Neuts (auto) Absolute Nucleated RBC Nucleated RBC % (auto) Sodium Potassium Chloride Carbon Dioxide Anion Gap BUN Creatinine Estim Creat Clear Calc Estimated GFR POC Glucose 245 H 139 H Random Glucose Calcium Total Bilirubin AST ALT Alkaline Phosphatase Total Protein Albumin Stool Occult Blood POSITIVE 07/08/21 07/09/21 07/09/21 23:47 05:20 05:20 WBC 12.2 H RBC 4.21 L Hgb 10.3 L Hct 34.3 L MCV 81.5 MCH 24.5 L MCHC 30.0 L RDW 16.8 H Plt Count 409 H MPV 9.9 Immature Gran % (Auto) 1.3 H Neut % (Auto) 89.6 H Lymph % (Auto) 5.8 L [place] % (Auto) 3.2 Eos % (Auto) 0.0 Baso % (Auto) 0.1 Lymph # (Auto) 0.7 L [place] # (Auto) 0.4 Eos # (Auto) 0.0 Baso # (Auto) 0.0 Abs Immat Gran (auto) 0.16 H Absolute Neuts (auto) 10.9 H Absolute Nucleated RBC 0.000 Nucleated RBC % (auto) 0.0 Sodium 141 Potassium 3.3 D Chloride 115 H Carbon Dioxide 21 L Anion Gap 8 L BUN 25 H Creatinine 0.45 L Estim Creat Clear Calc 220.7 Estimated GFR > 60 POC Glucose 110 Random Glucose 97 D Calcium 7.4 L D Total Bilirubin 0.3 AST 10 ALT 14 Alkaline Phosphatase 58 D Total Protein 4.6 L D Albumin 2.5 L Stool Occult Blood 07/09/21 07/09/21 07/09/21 06:44 11:52 13:54 WBC RBC Hgb Hct MCV MCH MCHC RDW Plt Count MPV Immature Gran % (Auto) Neut % (Auto) Lymph % (Auto) [place] % (Auto) Eos % (Auto) Baso % (Auto) Lymph # (Auto) [place] # (Auto) Eos # (Auto) Baso # (Auto) Abs Immat Gran (auto) Absolute Neuts (auto) Absolute Nucleated RBC Nucleated RBC % (auto) Sodium Potassium Chloride Carbon Dioxide Anion Gap BUN Creatinine Estim Creat Clear Calc Estimated GFR POC Glucose 115 54 L* 111 Random Glucose Calcium Total Bilirubin AST ALT Alkaline Phosphatase Total Protein Albumin Stool Occult Blood Microbiology Microbiology Results: Microbiology 06/21/21 Unknown Urine Catheterized - Villa Catheter Urine Culture - Final Escherichia coli 06/21/21 13:06 Sputum - Suctioned Gram Stain - Final 06/21/21 13:06 Sputum - Suctioned Sputum Culture - Final Escherichia coli 06/20/21 15:30 Sputum - Suctioned Gram Stain - Final 06/20/21 15:30 Sputum - Suctioned Sputum Culture - Final Escherichia coli 06/15/21 00:51 Blood - Venous Blood Culture - Final No growth after 5 days. 06/15/21 00:50 Blood - Venous Blood Culture - Final No growth after 5 days. Progress Note: A&P Assessment and plan (1) Diabetes 1.5, managed as type 1: Status: Acute (2) Pneumomediastinum: Status: Acute (3) Pulmonary edema due to chemical: Status: Acute (4) Cocaine abuse with intoxication: Status: Acute (5) Suppression of immune system subtherapeutic: Status: Acute (6) Morbid obesity: Status: Acute (7) Acute respiratory distress syndrome (ARDS): Status: Acute (8) Acute hypoxemic respiratory failure: Status: Acute (9) IBD (inflammatory bowel disease): Status: Acute (10) Anemia: Status: Acute (11) Pneumonia due to COVID-19 virus: Status: Acute (12) Hypoxia: Status: Acute (13) CHF (congestive heart failure): Status: Acute (14) Normocytic anemia: Status: Acute (15) Colitis: Status: Acute Plan at this point I am going to recent date but with Versed low-dose and reassess in the morning and he is due for tracheostomy and PEG if he again demonstrates no cognitive function Quality Stroke Does the patient have a stroke diagnosis?: No VTE Prior VTE?: No VTE Risk Level:: Medical - moderate - high VTE Device Contraindication: N/A - Device Ordered VTE Drug Contraindication: N/A - Med Ordered
[2021-07-09 18:03] LABS: Glucose, Whole Blood 95 mg/dL (60-115)
[2021-07-09 20:33] LABS: Glucose, Whole Blood 97 mg/dL (60-115)
[2021-07-09 23:33] LABS: Glucose, Whole Blood 79 mg/dL (60-115)
[2021-07-10] VITALS (29 sets, daily range): BP systolic 93–158; BP diastolic 46–92; PULSE 66–120; RESP 13–26; TEMP 34–38.4; O2SAT 90–99; BMI 27.8
[2021-07-10 01:23] LABS: Glucose, Whole Blood 95 mg/dL (60-115)
[2021-07-10] MEDS: Midazolam HCl/NS 50 MG/50 ML PLAST..BAG IVCONT (04:33)
[2021-07-10 04:50] LABS: VBG HCO3 26 mmol/L (22-26); VBG pCO2 34 mmHg; VBG pH 7.49 (7.32-7.43); VBG pO2 51 mmHg
[2021-07-10 05:11] LABS: MANUAL DIFF FLAG NO
[2021-07-10 05:20] LABS: Basophils Percent Auto 0.1 % (0-2); Hematocrit 37.7 % (42.0-52.0); Hemoglobin 11.3 g/dl (14.0-18.0); Imm Gran Abs Auto 0.13 X10*3/uL (0.00-0.03); Imm Gran Pct Auto 0.9 % (0.0-0.4); Lymphocytes Absolute Auto 1.3 X10*3/uL (1.2-4.9); Lymphocytes Percent Auto 8.7 % (20-40); Mean Corpuscular Hemoglobin 24.3 pg (27.0-33.0); Mean Corpuscular Volume 81.1 fL (80.0-98.0); Mean Platelet Volume 9.9 fL (9.4-12.4); Monocytes Absolute Auto 0.7 X10*3/uL (0.1-1.2); Monocytes Percent Auto 4.7 % (2-11); Neutrophils Percent Auto 85.6 % (45-73); Platelet Count 508 X10*3/uL (160-400); Red Blood Count 4.65 X10*6/uL (4.60-5.80); Red Cell Distribution Width 17.3 % (11.0-16.0); Venous Blood Gas Refer to POC result; White Blood Count 15.2 X10*3/uL (4.8-10.8)
[2021-07-10 05:35] LABS: D Dimer High Sensitivity 2158 NG/ML
[2021-07-10 05:41] LABS: Alanine Aminotransferase 24 U/L (0-40); Albumin Level 3.5 g/dL (3.5-5.0); Alkaline Phosphatase 87 U/L (39-117); Anion Gap 12 (12-20); Aspartate Amino Transferase 17 U/L (5-37); Bilirubin Direct 0.4 mg/dL (0.0-0.5); Bilirubin Total 0.7 mg/dL (0.0-1.0); Blood Urea Nitrogen 30 mg/dL (9-16); C Reactive Protein 0.49 mg/dL (< or = 0.50); Calcium 10.1 mg/dL (8.4-10.2); Carbon Dioxide 27 mmol/L (22-29); Chloride 103 mmol/L (96-108); Creatinine Clr Calc Pharmacy 152.5; Estimated Glomerular Filt Rate > 60; Glucose Random 66 mg/dL (60-115); Lactate Dehydrogenase 257 U/L (118-273); Phosphorus 3.1 mg/dL (2.7-4.5); Potassium 4.3 mmol/L (3.3-5.1); Sodium 138 mmol/L (135-145); Total Protein 6.6 g/dL (6.5-8.0)
[2021-07-10 05:54] LABS: Glucose, Whole Blood 61 mg/dL (60-115)
[2021-07-10 06:06] LABS: Ferritin 176 ng/mL (20-250)
--- NOTE | 2021-07-10 06:28 | PC.NURSE ---
Shift eval 11p-7a: Patient sedated w/ versed only - intubated - tolerating Pressure control settings. Patient arousable when care being given - making eye contact, squeezed hand when asked. Patient pre op trach / peg for 2pm today. NPO after midnight. POC 61 for 6am - reported to Dr Vazquez - plan to watch - no insulin coverage given at midnight or 6am.
[2021-07-10] MEDS: 0.9 % Sodium Chloride Flush 3 ML SYRINGE IVFLUSH ×2 (07:29→15:04)
[2021-07-10] MEDS: Aspirin 325 MG TABLET G-TUBE (07:29)
[2021-07-10] MEDS: Enoxaparin Sodium 40 MG/0.4 ML SYRINGE SUBCUT (07:29)
[2021-07-10] MEDS: methylPREDNISolone Sod Succ 125 MG/2 ML VIAL 60 MG IVPUSH ×2 (07:29→21:13)
[2021-07-10] MEDS: Atorvastatin Calcium 80 MG TABLET G-TUBE (07:29)
[2021-07-10] MEDS: Chlorhexidine Gluc Oral Rinse 15 ML MOUTHWASH BUCCAL ×3 (07:29→21:13)
[2021-07-10] MEDS: Thiamine HCL 100 MG TABLET 200 MG G-TUBE ×2 (07:30→21:13)
[2021-07-10] MEDS: fluvoxaMINE Maleate 50 MG TABLET 100 MG G-TUBE ×2 (07:30→21:13)
[2021-07-10] MEDS: levoFLOXacin/D5W 750 MG/150 ML PIGGYBACK 100 MG IV (07:41)
[2021-07-10 10:19] LABS: COVID-19 Test Positive (Negative); IDNOW Serial# 08D9AD1C
--- NOTE | 2021-07-10 11:21 | MHC.CM.PN ---
Patient remains intubated/vented in ICU. Patient scheduled for trach/peg at 2pm today. Per Dr Vazquez, patient is waking up and may not need Trach/Peg. Continue to monitor for d/c needs.
[2021-07-10 11:45] LABS: Glucose, Whole Blood 55 mg/dL (60-115)
[2021-07-10] MEDS: Dextrose 50 % 25 GM/50 ML SYRINGE IVPUSH (12:37)
--- NOTE | 2021-07-10 13:27 | P.CONAN_ITS ---
[facility] Active Problems Active Problems: All Active Problems (Updated 07/10/21 @ 10:18 by Tess Duckworth PA-C) Diabetes 1.5, managed as type 1 (Acute) Pneumomediastinum (Acute) Pulmonary edema due to chemical (Acute) Cocaine abuse with intoxication (Acute) Suppression of immune system subtherapeutic (Acute) Morbid obesity (Acute) Acute respiratory distress syndrome (ARDS) (Acute) Acute hypoxemic respiratory failure (Acute) IBD (inflammatory bowel disease) (Acute) Anemia (Acute) Pneumonia due to COVID-19 virus (Acute ~06/2021) Hypoxia (Acute) CHF (congestive heart failure) (Acute) Normocytic anemia (Acute) Colitis (Acute ~2002) Past Medical History Medical History Acute promyelocytic leukemia (~08/2016) Anxiety Asthma Chronic idiopathic constipation Colitis (~2002) Crohn disease (~2002) Depression Diabetes 1.5, managed as type 1 Diarrhea Elevated serum glutamic pyruvic transaminase (SGPT) level History of subarachnoid hemorrhage (~08/2016) Hypertension Kidney disease Left sided abdominal pain Morbid obesity Renal stones 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) Surgical History Surgical History History of bone marrow biopsy (~2016) History of cholecystectomy (~2011) History of colonoscopy (~2020) History of esophagogastroduodenoscopy (EGD) (~2020) History of hemorrhoidectomy (~2003) History of lithotripsy (~2017) History of rectal sphincterotomy (~2003) History of right knee surgery (~2016) History of surgery on right wrist (~2006) Social History Social History Household Members: Family Housing: Apartment Do you presently have visiting nurse or other home services: No Alcohol intake: never Patient Tobacco Use Status: Never used Tobacco e-Cigarette/Vaping Use: Never Used Second Hand Smoke Exposure: No Advance Directives Date on File: 04/04/21 service: No Current occupational status: disabled Meds Allergies Allergy/AdvReac Type Severity Reaction Status Date / Time lorazepam [From Ativan] AdvReac Severe AGITATION Verified 06/20/21 00:19 ? EDEMA none Allergy Unknown Unknown Uncoded 04/02/21 16:05 Active Medications: Current Medications Aspirin (Aspirin 325 Mg Tablet) 325 mg G-TUBE DAILY [facility] Last Admin: 07/10/21 07:29 Dose: 325 mg Documented by: Atorvastatin Calcium (Atorvastatin Calcium 80 Mg Tablet) 80 mg G-TUBE DAILY [facility] Last Admin: 07/10/21 07:29 Dose: 80 mg Documented by: Chlorhexidine Gluconate (Chlorhexidine Gluc Oral Rinse 15 Ml Mouthwash) 15 ml BUCCAL TID [facility] Last Admin: 07/10/21 07:29 Dose: 15 ml Documented by: Dextrose (Dextrose 50 % 25 Gm/50 Ml Syringe) 25 gm IVPUSH Q15M PRN PRN Reason: per Hypoglycemia Standing Ord. Last Admin: 07/10/21 12:37 Dose: 25 gm Documented by: Docusate Sodium (Docusate Sodium 100 Mg Capsule) 100 mg PO DAILY PRN PRN Reason: Constipation Enoxaparin Sodium (Enoxaparin Sodium 40 Mg/0.4 Ml Syringe) 40 mg SUBCUT Q24H [facility] Last Admin: 07/10/21 07:29 Dose: 40 mg Documented by: Fluvoxamine Maleate (Fluvoxamine Maleate 50 Mg Tablet) 100 mg G-TUBE BID [facility] Last Admin: 07/10/21 07:30 Dose: 100 mg Documented by: Midazolam HCl (Versed) 50 mg in 50 mls @ 2 mls/hr IVCONT .Q24H [facility] Last Infusion: 07/10/21 08:36 Dose: 0 mg/hr, 0 mls/hr Documented by: Cefazolin Sodium 2 gm/ Sodium (Chloride) 50 mls @ 100 mls/hr IV PREOP ONE Stop: 07/10/21 13:29 Insulin Glargine (Insulin Glargine,Hum.Rec.Anlog 100 Unit/Ml 10 Ml Vial) 50 unit SUBCUT BID [facility] Last Admin: 07/10/21 07:13 Dose: Not Given Documented by: Insulin Human Lispro (Insulin Lispro 100 Unit/Ml 3 Ml Vial) 0 unit SUBCUT Q6H [facility]; Protocol Last Admin: 07/10/21 12:35 Dose: Not Given Documented by: Methylprednisolone Sodium Succinate (Methylprednisolone Sod Succ 125 Mg/2 Ml Vial) 60 mg IVPUSH Q12H [facility] Last Admin: 07/10/21 07:29 Dose: 60 mg Documented by: Omeprazole (Omeprazole 20 Mg/10 Ml Susp.Recon) 40 mg PO DAILY@0630 [facility] Last Admin: 07/10/21 05:28 Dose: Not Given Documented by: Sodium Chloride (0.9 % Sodium Chloride Flush 3 Ml Syringe) 3 ml IVFLUSH QSHIFT [facility] Last Admin: 07/10/21 07:29 Dose: 3 ml Documented by: Thiamine HCl (Thiamine Hcl 100 Mg Tablet) 200 mg G-TUBE BID [facility] Last Admin: 07/10/21 07:30 Dose: 200 mg Documented by: Home Medications Medication Instructions Recorded Confirmed Last Taken Type glyburide 5 mg tablet 5 mg PO BID 03/22/20 06/15/21 05/14/21 History lisinopril 5 mg tablet 5 mg PO DAILY 03/22/20 06/15/21 05/14/21 History mirtazapine 30 mg tablet 30 mg PO BEDTIME 03/22/20 06/15/21 05/14/21 History folic acid 1 mg tablet 1 mg PO DAILY 02/14/21 06/15/21 05/14/21 History melatonin 5 mg tablet 1 tab PO BEDTIME PRN 02/14/21 06/15/21 05/14/21 History paroxetine HCl 40 mg tablet 40 mg PO DAILY 02/14/21 06/15/21 06/01/21 09:00 History hydroxyzine pamoate 50 mg capsule 100 mg PO BEDTIME PRN 04/02/21 06/15/21 05/14/21 History ustekinumab 90 mg/mL subcutaneous 90 mg SUBCUT Q8W 04/02/21 06/15/21 05/13/21 History syringe (Stelara) methotrexate sodium 2.5 mg tablet 25 mg PO Q7D 05/15/21 06/15/21 05/08/21 History prednisone 10 mg tablet 4 tab PO DAILY 06/02/21 06/15/21 Unknown History doxycycline monohydrate 100 mg 1 tab PO BID 06/15/21 06/15/21 Unknown History tablet Exam Exam Date and Time: July 10, 2021 1327 Height,Weight and Vital Signs: Height 6 ft 3 in Weight 100.8 kg Last Vital Signs Temp 98.4 F 07/10/21 12:00 Pulse 101 H 07/10/21 12:00 Resp 16 07/10/21 12:00 BP 131/78 07/10/21 12:00 Pulse Ox 93 07/10/21 12:00 Oxygen Flow Rate 10 06/15/21 00:21 Pertinent Lab Results Pertinent Lab Results: Laboratory Tests 06/15/21 06/15/21 06/15/21 00:50 00:51 00:51 WBC 4.2 L RBC 3.55 L Hgb 8.8 L Hct 30.0 L MCV 84.5 MCH 24.8 L MCHC 29.3 L RDW 17.8 H Plt Count 214 D MPV 9.4 Immature Gran % (Auto) 0.5 H Neut % (Auto) 90.1 H Lymph % (Auto) 7.3 L [place] % (Auto) 2.1 Eos % (Auto) 0.0 Baso % (Auto) 0.0 Lymph # (Auto) 0.3 L [place] # (Auto) 0.1 Eos # (Auto) 0.0 Baso # (Auto) 0.0 Abs Immat Gran (auto) 0.02 Absolute Neuts (auto) 3.8 Absolute Nucleated RBC 0.000 Nucleated RBC % (auto) 0.0 Neutrophils % (Manual) Band Neutrophils % Lymphocytes % (Manual) Monocytes % (Manual) Eosinophils % (Manual) Metamyelocytes % Myelocytes % Promyelocytes % Abs Neuts (Manual) Lymphocytes # (Manual) Monocytes # (Manual) Eosinophils # (Manual) Metamyelocytes # Myelocytes # Promyelocytes # Smudge Cells Toxic Vacuolation Platelet Estimate Large Platelets Plt Morphology Comment RBC Morphology Polychromasia Hypochromasia Basophilic Stippling Microcytosis Macrocytosis Target Cells Tear Drop Cells Ovalocytes [place] Cells Acanthocytes (Spur) Smear Tech's Comments VERIFIED Smear Path Review PT INR APTT D-Dimer High Sensitivty O2 Saturation ABG pH at Pt Temp ABG pCO2 at Pt Temp ABG pO2 at Pt Temp ABG HCO3 ABG Base Excess (Actual) VBG pH VBG pCO2 VBG pO2 VBG HCO3 VBG O2 Saturation VBG Base Excess Sodium 142 Potassium 3.9 Chloride 106 Carbon Dioxide 25 Anion Gap 15 BUN 21 H Creatinine 1.06 Estim Creat Clear Calc 98.8 Estimated GFR > 60 POC Glucose Random Glucose 304 H D Fasting Glucose Lactic Acid Lactic Acid F/U @ 2Hr Lactic Acid F/U @ 4Hr Calcium 8.4 D Phosphorus Magnesium Ferritin 357 H Total Bilirubin 0.3 Direct Bilirubin AST 16 ALT 19 Alkaline Phosphatase 87 Lactate Dehydrogenase 369 H Total Creatine Kinase Troponin I High Sens C-Reactive Protein 10.08 H B-Natriuretic Peptide Total Protein 6.2 L Albumin 3.4 L Procalcitonin TSH 0.37 Urine Color Urine Appearance Urine pH Ur Specific [place] Urine Protein Urine Glucose (UA) Urine Ketones Urine Blood Urine Nitrite Ur Leukocyte Esterase Urine RBC Urine WBC Urine WBC Clumps Ur Squamous Epith Cells Ur Renal Epithelial Cell Uric Acid Crystals Amorphous Sediment Urine Bacteria Urine Mucus Stool Occult Blood Urine Opiates Screen Urine Fentanyl Screen Ur Barbiturates Screen Ur Phencyclidine Scrn Ur Amphetamines Screen U Benzodiazepines Scrn Urine Cocaine Screen U Marijuana (THC) Screen C. difficile Tox B Gene COVID-19 (KRISTOPHER) COVID-19 Clin Com Blood Type O Positive Antibody Screen NEGATIVE Crossmatch 06/15/21 06/15/21 06/15/21 00:51 00:51 00:51 WBC RBC Hgb Hct MCV MCH MCHC RDW Plt Count MPV Immature Gran % (Auto) Neut % (Auto) Lymph % (Auto) [place] % (Auto) Eos % (Auto) Baso % (Auto) Lymph # (Auto) [place] # (Auto) Eos # (Auto) Baso # (Auto) Abs Immat Gran (auto) Absolute Neuts (auto) Absolute Nucleated RBC Nucleated RBC % (auto) Neutrophils % (Manual) Band Neutrophils % Lymphocytes % (Manual) Monocytes % (Manual) Eosinophils % (Manual) Metamyelocytes % Myelocytes % Promyelocytes % Abs Neuts (Manual) Lymphocytes # (Manual) Monocytes # (Manual) Eosinophils # (Manual) Metamyelocytes # Myelocytes # Promyelocytes # Smudge Cells Toxic Vacuolation Platelet Estimate Large Platelets Plt Morphology Comment RBC Morphology Polychromasia Hypochromasia Basophilic Stippling Microcytosis Macrocytosis Target Cells Tear Drop Cells Ovalocytes [place] Cells Acanthocytes (Spur) Smear Tech's Comments Smear Path Review PT 12.7 INR 1.1 APTT D-Dimer High Sensitivty 338 O2 Saturation ABG pH at Pt Temp ABG pCO2 at Pt Temp ABG pO2 at Pt Temp ABG HCO3 ABG Base Excess (Actual) VBG pH VBG pCO2 VBG pO2 VBG HCO3 VBG O2 Saturation VBG Base Excess Sodium Potassium Chloride Carbon Dioxide Anion Gap BUN Creatinine Estim Creat Clear Calc Estimated GFR POC Glucose Random Glucose Fasting Glucose Lactic Acid Lactic Acid F/U @ 2Hr Lactic Acid F/U @ 4Hr Calcium Phosphorus Magnesium Ferritin Total Bilirubin Direct Bilirubin AST ALT Alkaline Phosphatase Lactate Dehydrogenase Total Creatine Kinase Troponin I High Sens C-Reactive Protein B-Natriuretic Peptide 148 H Total Protein Albumin Procalcitonin TSH Urine Color Urine Appearance Urine pH Ur Specific [place] Urine Protein Urine Glucose (UA) Urine Ketones Urine Blood Urine Nitrite Ur Leukocyte Esterase Urine RBC Urine WBC Urine WBC Clumps Ur Squamous Epith Cells Ur Renal Epithelial Cell Uric Acid Crystals Amorphous Sediment Urine Bacteria Urine Mucus Stool Occult Blood Urine Opiates Screen Urine Fentanyl Screen Ur Barbiturates Screen Ur Phencyclidine Scrn Ur Amphetamines Screen U Benzodiazepines Scrn Urine Cocaine Screen U Marijuana (THC) Screen C. difficile Tox B Gene COVID-19 (KRISTOPHER) Positive A COVID-19 Clin Com See Note Blood Type Antibody Screen Crossmatch 06/15/21 06/15/21 06/15/21 00:51 00:51 00:51 WBC RBC Hgb Hct MCV MCH MCHC RDW Plt Count MPV Immature Gran % (Auto) Neut % (Auto) Lymph % (Auto) [place] % (Auto) Eos % (Auto) Baso % (Auto) Lymph # (Auto) [place] # (Auto) Eos # (Auto) Baso # (Auto) Abs Immat Gran (auto) Absolute Neuts (auto) Absolute Nucleated RBC Nucleated RBC % (auto) Neutrophils % (Manual) Band Neutrophils % Lymphocytes % (Manual) Monocytes % (Manual) Eosinophils % (Manual) Metamyelocytes % Myelocytes % Promyelocytes % Abs Neuts (Manual) Lymphocytes # (Manual) Monocytes # (Manual) Eosinophils # (Manual) Metamyelocytes # Myelocytes # Promyelocytes # Smudge Cells Toxic Vacuolation Platelet Estimate Large Platelets Plt Morphology Comment RBC Morphology Polychromasia Hypochromasia Basophilic Stippling Microcytosis Macrocytosis Target Cells Tear Drop Cells Ovalocytes [place] Cells Acanthocytes (Spur) Smear Tech's Comments Smear Path Review PT INR APTT D-Dimer High Sensitivty O2 Saturation ABG pH at Pt Temp ABG pCO2 at Pt Temp ABG pO2 at Pt Temp ABG HCO3 ABG Base Excess (Actual) VBG pH VBG pCO2 VBG pO2 VBG HCO3 VBG O2 Saturation VBG Base Excess Sodium Potassium Chloride Carbon Dioxide Anion Gap BUN Creatinine Estim Creat Clear Calc Estimated GFR POC Glucose Random Glucose Fasting Glucose Lactic Acid 2.4 H* Lactic Acid F/U @ 2Hr Lactic Acid F/U @ 4Hr Calcium Phosphorus Magnesium Ferritin Total Bilirubin Direct Bilirubin AST ALT Alkaline Phosphatase Lactate Dehydrogenase Total Creatine Kinase Troponin I High Sens C-Reactive Protein B-Natriuretic Peptide Total Protein Albumin Procalcitonin 0.24 TSH Urine Color Urine Appearance Urine pH Ur Specific [place] Urine Protein Urine Glucose (UA) Urine Ketones Urine Blood Urine Nitrite Ur Leukocyte Esterase Urine RBC Urine WBC Urine WBC Clumps Ur Squamous Epith Cells Ur Renal Epithelial Cell Uric Acid Crystals Amorphous Sediment Urine Bacteria Urine Mucus Stool Occult Blood POSITIVE Urine Opiates Screen Urine Fentanyl Screen Ur Barbiturates Screen Ur Phencyclidine Scrn Ur Amphetamines Screen U Benzodiazepines Scrn Urine Cocaine Screen U Marijuana (THC) Screen C. difficile Tox B Gene COVID-19 (KRISTOPHER) COVID-19 Clin Com Blood Type Antibody Screen Crossmatch 06/15/21 06/15/21 06/15/21 00:53 03:17 03:23 WBC RBC Hgb Hct MCV MCH MCHC RDW Plt Count MPV Immature Gran % (Auto) Neut % (Auto) Lymph % (Auto) [place] % (Auto) Eos % (Auto) Baso % (Auto) Lymph # (Auto) [place] # (Auto) Eos # (Auto) Baso # (Auto) Abs Immat Gran (auto) Absolute Neuts (auto) Absolute Nucleated RBC Nucleated RBC % (auto) Neutrophils % (Manual) Band Neutrophils % Lymphocytes % (Manual) Monocytes % (Manual) Eosinophils % (Manual) Metamyelocytes % Myelocytes % Promyelocytes % Abs Neuts (Manual) Lymphocytes # (Manual) Monocytes # (Manual) Eosinophils # (Manual) Metamyelocytes # Myelocytes # Promyelocytes # Smudge Cells Toxic Vacuolation Platelet Estimate Large Platelets Plt Morphology Comment RBC Morphology Polychromasia Hypochromasia Basophilic Stippling Microcytosis Macrocytosis Target Cells Tear Drop Cells Ovalocytes [place] Cells Acanthocytes (Spur) Smear Tech's Comments Smear Path Review PT INR APTT D-Dimer High Sensitivty O2 Saturation ABG pH at Pt Temp ABG pCO2 at Pt Temp ABG pO2 at Pt Temp ABG HCO3 ABG Base Excess (Actual) VBG pH 7.46 H VBG pCO2 34 VBG pO2 64 VBG HCO3 24 VBG O2 Saturation 88.0 VBG Base Excess 1.3 Sodium Potassium Chloride Carbon Dioxide Anion Gap BUN Creatinine Estim Creat Clear Calc Estimated GFR POC Glucose Random Glucose Fasting Glucose Lactic Acid Lactic Acid F/U @ 2Hr 2.6 H* Lactic Acid F/U @ 4Hr Calcium Phosphorus Magnesium Ferritin Total Bilirubin Direct Bilirubin AST ALT Alkaline Phosphatase Lactate Dehydrogenase Total Creatine Kinase Troponin I High Sens C-Reactive Protein B-Natriuretic Peptide Total Protein Albumin Procalcitonin TSH Urine Color YELLOW Urine Appearance CLEAR Urine pH 6.0 Ur Specific [place] 1.020 Urine Protein NEG Urine Glucose (UA) 250 H Urine Ketones NEG Urine Blood 2+ H Urine Nitrite NEG Ur Leukocyte Esterase NEG Urine RBC 10-14 H Urine WBC 1-4 Urine WBC Clumps Ur Squamous Epith Cells 1+ Ur Renal Epithelial Cell Uric Acid Crystals Amorphous Sediment Urine Bacteria 1+ Urine Mucus 1+ Stool Occult Blood Urine Opiates Screen Urine Fentanyl Screen Ur Barbiturates Screen Ur Phencyclidine Scrn Ur Amphetamines Screen U Benzodiazepines Scrn Urine Cocaine Screen U Marijuana (THC) Screen C. difficile Tox B Gene COVID-19 (KRISTOPHER) COVID-19 Clin Com Blood Type Antibody Screen Crossmatch 06/15/21 06/15/21 06/15/21 07:38 17:06 20:23 WBC RBC Hgb Hct MCV MCH MCHC RDW Plt Count MPV Immature Gran % (Auto) Neut % (Auto) Lymph % (Auto) [place] % (Auto) Eos % (Auto) Baso % (Auto) Lymph # (Auto) [place] # (Auto) Eos # (Auto) Baso # (Auto) Abs Immat Gran (auto) Absolute Neuts (auto) Absolute Nucleated RBC Nucleated RBC % (auto) Neutrophils % (Manual) Band Neutrophils % Lymphocytes % (Manual) Monocytes % (Manual) Eosinophils % (Manual) Metamyelocytes % Myelocytes % Promyelocytes % Abs Neuts (Manual) Lymphocytes # (Manual) Monocytes # (Manual) Eosinophils # (Manual) Metamyelocytes # Myelocytes # Promyelocytes # Smudge Cells Toxic Vacuolation Platelet Estimate Large Platelets Plt Morphology Comment RBC Morphology Polychromasia Hypochromasia Basophilic Stippling Microcytosis Macrocytosis Target Cells Tear Drop Cells Ovalocytes [place] Cells Acanthocytes (Spur) Smear Tech's Comments Smear Path Review PT INR APTT D-Dimer High Sensitivty O2 Saturation ABG pH at Pt Temp ABG pCO2 at Pt Temp ABG pO2 at Pt Temp ABG HCO3 ABG Base Excess (Actual) VBG pH VBG pCO2 VBG pO2 VBG HCO3 VBG O2 Saturation VBG Base Excess Sodium Potassium Chloride Carbon Dioxide Anion Gap BUN Creatinine Estim Creat Clear Calc Estimated GFR POC Glucose 134 H 188 H Random Glucose Fasting Glucose Lactic Acid Lactic Acid F/U @ 2Hr Lactic Acid F/U @ 4Hr 2.1 H* Calcium Phosphorus Magnesium Ferritin Total Bilirubin Direct Bilirubin AST ALT Alkaline Phosphatase Lactate Dehydrogenase Total Creatine Kinase Troponin I High Sens C-Reactive Protein B-Natriuretic Peptide Total Protein Albumin Procalcitonin TSH Urine Color Urine Appearance Urine pH Ur Specific [place] Urine Protein Urine Glucose (UA) Urine Ketones Urine Blood Urine Nitrite Ur Leukocyte Esterase Urine RBC Urine WBC Urine WBC Clumps Ur Squamous Epith Cells Ur Renal Epithelial Cell Uric Acid Crystals Amorphous Sediment Urine Bacteria Urine Mucus Stool Occult Blood Urine Opiates Screen Urine Fentanyl Screen Ur Barbiturates Screen Ur Phencyclidine Scrn Ur Amphetamines Screen U Benzodiazepines Scrn Urine Cocaine Screen U Marijuana (THC) Screen C. difficile Tox B Gene COVID-19 (KRISTOPHER) COVID-19 Clin Com Blood Type Antibody Screen Crossmatch 06/16/21 06/16/21 06/16/21 06:22 06:22 08:31 WBC 8.9 RBC 4.20 L Hgb 10.2 L Hct 35.3 L MCV 84.0 MCH 24.3 L MCHC 28.9 L RDW 17.9 H Plt Count 170 MPV 10.7 Immature Gran % (Auto) 0.3 Neut % (Auto) 88.2 H Lymph % (Auto) 9.5 L [place] % (Auto) 2.0 Eos % (Auto) 0.0 Baso % (Auto) 0.0 Lymph # (Auto) 0.8 L [place] # (Auto) 0.2 Eos # (Auto) 0.0 Baso # (Auto) 0.0 Abs Immat Gran (auto) 0.03 Absolute Neuts (auto) 7.8 Absolute Nucleated RBC 0.000 Nucleated RBC % (auto) 0.0 Neutrophils % (Manual) Band Neutrophils % Lymphocytes % (Manual) Monocytes % (Manual) Eosinophils % (Manual) Metamyelocytes % Myelocytes % Promyelocytes % Abs Neuts (Manual) Lymphocytes # (Manual) Monocytes # (Manual) Eosinophils # (Manual) Metamyelocytes # Myelocytes # Promyelocytes # Smudge Cells Toxic Vacuolation Platelet Estimate Large Platelets Plt Morphology Comment RBC Morphology Polychromasia Hypochromasia Basophilic Stippling Microcytosis Macrocytosis Target Cells Tear Drop Cells Ovalocytes [place] Cells Acanthocytes (Spur) Smear Tech's Comments Smear Path Review PT INR APTT D-Dimer High Sensitivty O2 Saturation ABG pH at Pt Temp ABG pCO2 at Pt Temp ABG pO2 at Pt Temp ABG HCO3 ABG Base Excess (Actual) VBG pH VBG pCO2 VBG pO2 VBG HCO3 VBG O2 Saturation VBG Base Excess Sodium 138 Potassium 4.0 Chloride 100 Carbon Dioxide 24 Anion Gap 18 BUN 16 Creatinine 0.83 Estim Creat Clear Calc 126.2 Estimated GFR > 60 POC Glucose 95 Random Glucose 95 D Fasting Glucose Lactic Acid Lactic Acid F/U @ 2Hr Lactic Acid F/U @ 4Hr Calcium 8.7 Phosphorus Magnesium Ferritin Total Bilirubin Direct Bilirubin AST ALT Alkaline Phosphatase Lactate Dehydrogenase Total Creatine Kinase Troponin I High Sens C-Reactive Protein B-Natriuretic Peptide Total Protein Albumin Procalcitonin TSH Urine Color Urine Appearance Urine pH Ur Specific [place] Urine Protein Urine Glucose (UA) Urine Ketones Urine Blood Urine Nitrite Ur Leukocyte Esterase Urine RBC Urine WBC Urine WBC Clumps Ur Squamous Epith Cells Ur Renal Epithelial Cell Uric Acid Crystals Amorphous Sediment Urine Bacteria Urine Mucus Stool Occult Blood Urine Opiates Screen Urine Fentanyl Screen Ur Barbiturates Screen Ur Phencyclidine Scrn Ur Amphetamines Screen U Benzodiazepines Scrn Urine Cocaine Screen U Marijuana (THC) Screen C. difficile Tox B Gene COVID-19 (KRISTOPHER) COVID-19 Clin Com Blood Type Antibody Screen Crossmatch 06/16/21 06/16/21 06/16/21 11:20 16:54 20:54 WBC RBC Hgb Hct MCV MCH MCHC RDW Plt Count MPV Immature Gran % (Auto) Neut % (Auto) Lymph % (Auto) [place] % (Auto) Eos % (Auto) Baso % (Auto) Lymph # (Auto) [place] # (Auto) Eos # (Auto) Baso # (Auto) Abs Immat Gran (auto) Absolute Neuts (auto) Absolute Nucleated RBC Nucleated RBC % (auto) Neutrophils % (Manual) Band Neutrophils % Lymphocytes % (Manual) Monocytes % (Manual) Eosinophils % (Manual) Metamyelocytes % Myelocytes % Promyelocytes % Abs Neuts (Manual) Lymphocytes # (Manual) Monocytes # (Manual) Eosinophils # (Manual) Metamyelocytes # Myelocytes # Promyelocytes # Smudge Cells Toxic Vacuolation Platelet Estimate Large Platelets Plt Morphology Comment RBC Morphology Polychromasia Hypochromasia Basophilic Stippling Microcytosis Macrocytosis Target Cells Tear Drop Cells Ovalocytes [place] Cells Acanthocytes (Spur) Smear Tech's Comments Smear Path Review PT INR APTT D-Dimer High Sensitivty O2 Saturation ABG pH at Pt Temp ABG pCO2 at Pt Temp ABG pO2 at Pt Temp ABG HCO3 ABG Base Excess (Actual) VBG pH VBG pCO2 VBG pO2 VBG HCO3 VBG O2 Saturation VBG Base Excess Sodium Potassium Chloride Carbon Dioxide Anion Gap BUN Creatinine Estim Creat Clear Calc Estimated GFR POC Glucose 112 157 H 162 H Random Glucose Fasting Glucose Lactic Acid Lactic Acid F/U @ 2Hr Lactic Acid F/U @ 4Hr Calcium Phosphorus Magnesium Ferritin Total Bilirubin Direct Bilirubin AST ALT Alkaline Phosphatase Lactate Dehydrogenase Total Creatine Kinase Troponin I High Sens C-Reactive Protein B-Natriuretic Peptide Total Protein Albumin Procalcitonin TSH Urine Color Urine Appearance Urine pH Ur Specific [place] Urine Protein Urine Glucose (UA) Urine Ketones Urine Blood Urine Nitrite Ur Leukocyte Esterase Urine RBC Urine WBC Urine WBC Clumps Ur Squamous Epith Cells Ur Renal Epithelial Cell Uric Acid Crystals Amorphous Sediment Urine Bacteria Urine Mucus Stool Occult Blood Urine Opiates Screen Urine Fentanyl Screen Ur Barbiturates Screen Ur Phencyclidine Scrn Ur Amphetamines Screen U Benzodiazepines Scrn Urine Cocaine Screen U Marijuana (THC) Screen C. difficile Tox B Gene COVID-19 (KRISTOPHER) COVID-19 Clin Com Blood Type Antibody Screen Crossmatch 06/17/21 06/17/21 06/17/21 07:37 10:49 16:47 WBC RBC Hgb Hct MCV MCH MCHC RDW Plt Count MPV Immature Gran % (Auto) Neut % (Auto) Lymph % (Auto) [place] % (Auto) Eos % (Auto) Baso % (Auto) Lymph # (Auto) [place] # (Auto) Eos # (Auto) Baso # (Auto) Abs Immat Gran (auto) Absolute Neuts (auto) Absolute Nucleated RBC Nucleated RBC % (auto) Neutrophils % (Manual) Band Neutrophils % Lymphocytes % (Manual) Monocytes % (Manual) Eosinophils % (Manual) Metamyelocytes % Myelocytes % Promyelocytes % Abs Neuts (Manual) Lymphocytes # (Manual) Monocytes # (Manual) Eosinophils # (Manual) Metamyelocytes # Myelocytes # Promyelocytes # Smudge Cells Toxic Vacuolation Platelet Estimate Large Platelets Plt Morphology Comment RBC Morphology Polychromasia Hypochromasia Basophilic Stippling Microcytosis Macrocytosis Target Cells Tear Drop Cells Ovalocytes [place] Cells Acanthocytes (Spur) Smear Tech's Comments Smear Path Review PT INR APTT D-Dimer High Sensitivty O2 Saturation ABG pH at Pt Temp ABG pCO2 at Pt Temp ABG pO2 at Pt Temp ABG HCO3 ABG Base Excess (Actual) VBG pH VBG pCO2 VBG pO2 VBG HCO3 VBG O2 Saturation VBG Base Excess Sodium Potassium Chloride Carbon Dioxide Anion Gap BUN Creatinine Estim Creat Clear Calc Estimated GFR POC Glucose 83 222 H 257 H Random Glucose Fasting Glucose Lactic Acid Lactic Acid F/U @ 2Hr Lactic Acid F/U @ 4Hr Calcium Phosphorus Magnesium Ferritin Total Bilirubin Direct Bilirubin AST ALT Alkaline Phosphatase Lactate Dehydrogenase Total Creatine Kinase Troponin I High Sens C-Reactive Protein B-Natriuretic Peptide Total Protein Albumin Procalcitonin TSH Urine Color Urine Appearance Urine pH Ur Specific [place] Urine Protein Urine Glucose (UA) Urine Ketones Urine Blood Urine Nitrite Ur Leukocyte Esterase Urine RBC Urine WBC Urine WBC Clumps Ur Squamous Epith Cells Ur Renal Epithelial Cell Uric Acid Crystals Amorphous Sediment Urine Bacteria Urine Mucus Stool Occult Blood Urine Opiates Screen Urine Fentanyl Screen Ur Barbiturates Screen Ur Phencyclidine Scrn Ur Amphetamines Screen U Benzodiazepines Scrn Urine Cocaine Screen U Marijuana (THC) Screen C. difficile Tox B Gene COVID-19 (KRISTOPHER) COVID-19 Clin Com Blood Type Antibody Screen Crossmatch 06/17/21 06/18/21 06/18/21 20:55 06:28 06:28 WBC 10.8 RBC 4.28 L Hgb 10.3 L Hct 35.7 L MCV 83.4 MCH 24.1 L MCHC 28.9 L RDW 17.5 H Plt Count 207 MPV 10.4 Immature Gran % (Auto) Neut % (Auto) Lymph % (Auto) [place] % (Auto) Eos % (Auto) Baso % (Auto) Lymph # (Auto) [place] # (Auto) Eos # (Auto) Baso # (Auto) Abs Immat Gran (auto) Absolute Neuts (auto) Absolute Nucleated RBC 0.000 Nucleated RBC % (auto) 0.0 Neutrophils % (Manual) Band Neutrophils % Lymphocytes % (Manual) Monocytes % (Manual) Eosinophils % (Manual) Metamyelocytes % Myelocytes % Promyelocytes % Abs Neuts (Manual) Lymphocytes # (Manual) Monocytes # (Manual) Eosinophils # (Manual) Metamyelocytes # Myelocytes # Promyelocytes # Smudge Cells Toxic Vacuolation Platelet Estimate Large Platelets Plt Morphology Comment RBC Morphology Polychromasia Hypochromasia Basophilic Stippling Microcytosis Macrocytosis Target Cells Tear Drop Cells Ovalocytes [place] Cells Acanthocytes (Spur) Smear Tech's Comments Smear Path Review PT INR APTT D-Dimer High Sensitivty O2 Saturation ABG pH at Pt Temp ABG pCO2 at Pt Temp ABG pO2 at Pt Temp ABG HCO3 ABG Base Excess (Actual) VBG pH VBG pCO2 VBG pO2 VBG HCO3 VBG O2 Saturation VBG Base Excess Sodium 142 Potassium 4.5 Chloride 102 Carbon Dioxide 28 Anion Gap 17 BUN 24 H Creatinine 0.74 Estim Creat Clear Calc 141.6 Estimated GFR > 60 POC Glucose 174 H Random Glucose 117 H Fasting Glucose Lactic Acid Lactic Acid F/U @ 2Hr Lactic Acid F/U @ 4Hr Calcium 9.3 D Phosphorus Magnesium Ferritin Total Bilirubin Direct Bilirubin AST ALT Alkaline Phosphatase Lactate Dehydrogenase Total Creatine Kinase Troponin I High Sens C-Reactive Protein B-Natriuretic Peptide Total Protein Albumin Procalcitonin TSH Urine Color Urine Appearance Urine pH Ur Specific [place] Urine Protein Urine Glucose (UA) Urine Ketones Urine Blood Urine Nitrite Ur Leukocyte Esterase Urine RBC Urine WBC Urine WBC Clumps Ur Squamous Epith Cells Ur Renal Epithelial Cell Uric Acid Crystals Amorphous Sediment Urine Bacteria Urine Mucus Stool Occult Blood Urine Opiates Screen Urine Fentanyl Screen Ur Barbiturates Screen Ur Phencyclidine Scrn Ur Amphetamines Screen U Benzodiazepines Scrn Urine Cocaine Screen U Marijuana (THC) Screen C. difficile Tox B Gene COVID-19 (KRISTOPHER) COVID-19 Clin Com Blood Type Antibody Screen Crossmatch 06/18/21 06/18/21 06/18/21 06:28 07:30 11:53 WBC RBC Hgb Hct MCV MCH MCHC RDW Plt Count MPV Immature Gran % (Auto) Neut % (Auto) Lymph % (Auto) [place] % (Auto) Eos % (Auto) Baso % (Auto) Lymph # (Auto) [place] # (Auto) Eos # (Auto) Baso # (Auto) Abs Immat Gran (auto) Absolute Neuts (auto) Absolute Nucleated RBC Nucleated RBC % (auto) Neutrophils % (Manual) Band Neutrophils % Lymphocytes % (Manual) Monocytes % (Manual) Eosinophils % (Manual) Metamyelocytes % Myelocytes % Promyelocytes % Abs Neuts (Manual) Lymphocytes # (Manual) Monocytes # (Manual) Eosinophils # (Manual) Metamyelocytes # Myelocytes # Promyelocytes # Smudge Cells Toxic Vacuolation Platelet Estimate Large Platelets Plt Morphology Comment RBC Morphology Polychromasia Hypochromasia Basophilic Stippling Microcytosis Macrocytosis Target Cells Tear Drop Cells Ovalocytes [place] Cells Acanthocytes (Spur) Smear Tech's Comments Smear Path Review PT INR APTT D-Dimer High Sensitivty O2 Saturation ABG pH at Pt Temp ABG pCO2 at Pt Temp ABG pO2 at Pt Temp ABG HCO3 ABG Base Excess (Actual) VBG pH VBG pCO2 VBG pO2 VBG HCO3 VBG O2 Saturation VBG Base Excess Sodium Potassium Chloride Carbon Dioxide Anion Gap BUN Creatinine Estim Creat Clear Calc Estimated GFR POC Glucose 106 189 H Random Glucose Fasting Glucose Lactic Acid Lactic Acid F/U @ 2Hr Lactic Acid F/U @ 4Hr Calcium Phosphorus Magnesium Ferritin 437 H Total Bilirubin Direct Bilirubin AST ALT Alkaline Phosphatase Lactate Dehydrogenase 670 H Total Creatine Kinase Troponin I High Sens C-Reactive Protein B-Natriuretic Peptide Total Protein Albumin Procalcitonin TSH Urine Color Urine Appearance Urine pH Ur Specific [place] Urine Protein Urine Glucose (UA) Urine Ketones Urine Blood Urine Nitrite Ur Leukocyte Esterase Urine RBC Urine WBC Urine WBC Clumps Ur Squamous Epith Cells Ur Renal Epithelial Cell Uric Acid Crystals Amorphous Sediment Urine Bacteria Urine Mucus Stool Occult Blood Urine Opiates Screen Urine Fentanyl Screen Ur Barbiturates Screen Ur Phencyclidine Scrn Ur Amphetamines Screen U Benzodiazepines Scrn Urine Cocaine Screen U Marijuana (THC) Screen C. difficile Tox B Gene COVID-19 (KRISTOPHER) COVID-19 Clin Com Blood Type Antibody Screen Crossmatch 06/18/21 06/18/21 06/19/21 16:26 20:35 07:39 WBC RBC Hgb Hct MCV MCH MCHC RDW Plt Count MPV Immature Gran % (Auto) Neut % (Auto) Lymph % (Auto) [place] % (Auto) Eos % (Auto) Baso % (Auto) Lymph # (Auto) [place] # (Auto) Eos # (Auto) Baso # (Auto) Abs Immat Gran (auto) Absolute Neuts (auto) Absolute Nucleated RBC Nucleated RBC % (auto) Neutrophils % (Manual) Band Neutrophils % Lymphocytes % (Manual) Monocytes % (Manual) Eosinophils % (Manual) Metamyelocytes % Myelocytes % Promyelocytes % Abs Neuts (Manual) Lymphocytes # (Manual) Monocytes # (Manual) Eosinophils # (Manual) Metamyelocytes # Myelocytes # Promyelocytes # Smudge Cells Toxic Vacuolation Platelet Estimate Large Platelets Plt Morphology Comment RBC Morphology Polychromasia Hypochromasia Basophilic Stippling Microcytosis Macrocytosis Target Cells Tear Drop Cells Ovalocytes [place] Cells Acanthocytes (Spur) Smear Tech's Comments Smear Path Review PT INR APTT D-Dimer High Sensitivty O2 Saturation ABG pH at Pt Temp ABG pCO2 at Pt Temp ABG pO2 at Pt Temp ABG HCO3 ABG Base Excess (Actual) VBG pH VBG pCO2 VBG pO2 VBG HCO3 VBG O2 Saturation VBG Base Excess Sodium Potassium Chloride Carbon Dioxide Anion Gap BUN Creatinine Estim Creat Clear Calc Estimated GFR POC Glucose 263 H 221 H 130 H Random Glucose Fasting Glucose Lactic Acid Lactic Acid F/U @ 2Hr Lactic Acid F/U @ 4Hr Calcium Phosphorus Magnesium Ferritin Total Bilirubin Direct Bilirubin AST ALT Alkaline Phosphatase Lactate Dehydrogenase Total Creatine Kinase Troponin I High Sens C-Reactive Protein B-Natriuretic Peptide Total Protein Albumin Procalcitonin TSH Urine Color Urine Appearance Urine pH Ur Specific [place] Urine Protein Urine Glucose (UA) Urine Ketones Urine Blood Urine Nitrite Ur Leukocyte Esterase Urine RBC Urine WBC Urine WBC Clumps Ur Squamous Epith Cells Ur Renal Epithelial Cell Uric Acid Crystals Amorphous Sediment Urine Bacteria Urine Mucus Stool Occult Blood Urine Opiates Screen Urine Fentanyl Screen Ur Barbiturates Screen Ur Phencyclidine Scrn Ur Amphetamines Screen U Benzodiazepines Scrn Urine Cocaine Screen U Marijuana (THC) Screen C. difficile Tox B Gene COVID-19 (KRISTOPHER) COVID-19 Clin Com Blood Type Antibody Screen Crossmatch 06/19/21 06/19/21 06/19/21 11:27 15:32 23:07 WBC RBC Hgb Hct MCV MCH MCHC RDW Plt Count MPV Immature Gran % (Auto) Neut % (Auto) Lymph % (Auto) [place] % (Auto) Eos % (Auto) Baso % (Auto) Lymph # (Auto) [place] # (Auto) Eos # (Auto) Baso # (Auto) Abs Immat Gran (auto) Absolute Neuts (auto) Absolute Nucleated RBC Nucleated RBC % (auto) Neutrophils % (Manual) Band Neutrophils % Lymphocytes % (Manual) Monocytes % (Manual) Eosinophils % (Manual) Metamyelocytes % Myelocytes % Promyelocytes % Abs Neuts (Manual) Lymphocytes # (Manual) Monocytes # (Manual) Eosinophils # (Manual) Metamyelocytes # Myelocytes # Promyelocytes # Smudge Cells Toxic Vacuolation Platelet Estimate Large Platelets Plt Morphology Comment RBC Morphology Polychromasia Hypochromasia Basophilic Stippling Microcytosis Macrocytosis Target Cells Tear Drop Cells Ovalocytes [place] Cells Acanthocytes (Spur) Smear Tech's Comments Smear Path Review PT INR APTT D-Dimer High Sensitivty O2 Saturation 99.0 ABG pH at Pt Temp 7.36 ABG pCO2 at Pt Temp 46 H ABG pO2 at Pt Temp 181 H ABG HCO3 27 H ABG Base Excess (Actual) 1.4 VBG pH VBG pCO2 VBG pO2 VBG HCO3 VBG O2 Saturation VBG Base Excess Sodium Potassium Chloride Carbon Dioxide Anion Gap BUN Creatinine Estim Creat Clear Calc Estimated GFR POC Glucose 176 H 269 H Random Glucose Fasting Glucose Lactic Acid Lactic Acid F/U @ 2Hr Lactic Acid F/U @ 4Hr Calcium Phosphorus Magnesium Ferritin Total Bilirubin Direct Bilirubin AST ALT Alkaline Phosphatase Lactate Dehydrogenase Total Creatine Kinase Troponin I High Sens C-Reactive Protein B-Natriuretic Peptide Total Protein Albumin Procalcitonin TSH Urine Color Urine Appearance Urine pH Ur Specific [place] Urine Protein Urine Glucose (UA) Urine Ketones Urine Blood Urine Nitrite Ur Leukocyte Esterase Urine RBC Urine WBC Urine WBC Clumps Ur Squamous Epith Cells Ur Renal Epithelial Cell Uric Acid Crystals Amorphous Sediment Urine Bacteria Urine Mucus Stool Occult Blood Urine Opiates Screen Urine Fentanyl Screen Ur Barbiturates Screen Ur Phencyclidine Scrn Ur Amphetamines Screen U Benzodiazepines Scrn Urine Cocaine Screen U Marijuana (THC) Screen C. difficile Tox B Gene COVID-19 (KRISTOPHER) COVID-19 Clin Com Blood Type Antibody Screen Crossmatch 06/20/21 06/20/21 06/20/21 00:27 00:27 00:59 WBC 13.3 H RBC 3.42 L D Hgb 8.4 L Hct 28.3 L D MCV 82.7 MCH 24.6 L MCHC 29.7 L RDW 17.2 H Plt Count 272 D MPV 9.9 Immature Gran % (Auto) 0.5 H Neut % (Auto) 93.8 H Lymph % (Auto) 2.3 L [place] % (Auto) 3.2 Eos % (Auto) 0.0 Baso % (Auto) 0.2 Lymph # (Auto) 0.3 L [place] # (Auto) 0.4 Eos # (Auto) 0.0 Baso # (Auto) 0.0 Abs Immat Gran (auto) 0.07 H Absolute Neuts (auto) 12.5 H Absolute Nucleated RBC 0.000 Nucleated RBC % (auto) 0.0 Neutrophils % (Manual) Band Neutrophils % Lymphocytes % (Manual) Monocytes % (Manual) Eosinophils % (Manual) Metamyelocytes % Myelocytes % Promyelocytes % Abs Neuts (Manual) Lymphocytes # (Manual) Monocytes # (Manual) Eosinophils # (Manual) Metamyelocytes # Myelocytes # Promyelocytes # [place] Cells Toxic Vacuolation Platelet Estimate Large Platelets Plt Morphology Comment RBC Morphology Polychromasia Hypochromasia Basophilic Stippling Microcytosis Macrocytosis Target Cells Tear Drop Cells Ovalocytes [place] Cells Acanthocytes (Spur) Smear Tech's Comments VERIFIED Smear Path Review PT INR APTT D-Dimer High Sensitivty O2 Saturation ABG pH at Pt Temp ABG pCO2 at Pt Temp ABG pO2 at Pt Temp ABG HCO3 ABG Base Excess (Actual) VBG pH VBG pCO2 VBG pO2 VBG HCO3 VBG O2 Saturation VBG Base Excess Sodium 139 Potassium 4.0 Chloride 101 Carbon Dioxide 28 Anion Gap 14 BUN 29 H Creatinine 0.86 Estim Creat Clear Calc 121.8 Estimated GFR > 60 POC Glucose Random Glucose Fasting Glucose 257 H D Lactic Acid Lactic Acid F/U @ 2Hr Lactic Acid F/U @ 4Hr Calcium 8.4 D Phosphorus Magnesium Ferritin Total Bilirubin Direct Bilirubin AST ALT Alkaline Phosphatase Lactate Dehydrogenase Total Creatine Kinase Troponin I High Sens C-Reactive Protein B-Natriuretic Peptide Total Protein Albumin Procalcitonin TSH Urine Color Urine Appearance Urine pH Ur Specific [place] Urine Protein Urine Glucose (UA) Urine Ketones Urine Blood Urine Nitrite Ur Leukocyte Esterase Urine RBC Urine WBC Urine WBC Clumps Ur Squamous Epith Cells Ur Renal Epithelial Cell Uric Acid Crystals Amorphous Sediment Urine Bacteria Urine Mucus Stool Occult Blood Urine Opiates Screen POSITIVE H Urine Fentanyl Screen POSITIVE H Ur Barbiturates Screen Not Detected Ur Phencyclidine Scrn Not Detected Ur Amphetamines Screen Not Detected U Benzodiazepines Scrn Not Detected Urine Cocaine Screen POSITIVE H U Marijuana (THC) Screen Not Detected C. difficile Tox B Gene COVID-19 (KRISTOPHER) COVID-19 Clin Com Blood Type Antibody Screen Crossmatch 0106/20/21 06/20/21 05:35 05:35 05:37 WBC 11.0 H RBC 3.43 L Hgb 8.4 L Hct 28.3 L MCV 82.5 MCH 24.5 L MCHC 29.7 L RDW 17.2 H Plt Count 270 MPV 9.6 Immature Gran % (Auto) 0.6 H Neut % (Auto) 90.1 H Lymph % (Auto) 5.8 L [place] % (Auto) 3.4 Eos % (Auto) 0.0 Baso % (Auto) 0.1 Lymph # (Auto) 0.6 L [place] # (Auto) 0.4 Eos # (Auto) 0.0 Baso # (Auto) 0.0 Abs Immat Gran (auto) 0.07 H Absolute Neuts (auto) 9.9 H Absolute Nucleated RBC 0.000 Nucleated RBC % (auto) 0.0 Neutrophils % (Manual) Band Neutrophils % Lymphocytes % (Manual) Monocytes % (Manual) Eosinophils % (Manual) Metamyelocytes % Myelocytes % Promyelocytes % Abs Neuts (Manual) Lymphocytes # (Manual) Monocytes # (Manual) Eosinophils # (Manual) Metamyelocytes # Myelocytes # Promyelocytes # [place] Cells Toxic Vacuolation Platelet Estimate Large Platelets Plt Morphology Comment RBC Morphology Polychromasia Hypochromasia Basophilic Stippling Microcytosis Macrocytosis Target Cells Tear Drop Cells Ovalocytes [place] Cells Acanthocytes (Spur) Smear Tech's Comments Smear Path Review PT INR APTT D-Dimer High Sensitivty O2 Saturation ABG pH at Pt Temp ABG pCO2 at Pt Temp ABG pO2 at Pt Temp ABG HCO3 ABG Base Excess (Actual) VBG pH 7.42 VBG pCO2 46 VBG pO2 53 VBG HCO3 30 H VBG O2 Saturation 77.0 VBG Base Excess 5.7 Sodium 140 Potassium 4.1 Chloride 101 Carbon Dioxide 29 Anion Gap 14 BUN 27 H Creatinine 0.79 Estim Creat Clear Calc 132.6 Estimated GFR > 60 POC Glucose Random Glucose 221 H D Fasting Glucose Lactic Acid Lactic Acid F/U @ 2Hr Lactic Acid F/U @ 4Hr Calcium 8.7 Phosphorus Magnesium Ferritin 462 H Total Bilirubin 0.5 Direct Bilirubin AST 11 ALT 14 Alkaline Phosphatase 96 Lactate Dehydrogenase 422 H Total Creatine Kinase Troponin I High Sens C-Reactive Protein B-Natriuretic Peptide Total Protein 5.4 L Albumin 2.8 L Procalcitonin TSH Urine Color Urine Appearance Urine pH Ur Specific [place] Urine Protein Urine Glucose (UA) Urine Ketones Urine Blood Urine Nitrite Ur Leukocyte Esterase Urine RBC Urine WBC Urine WBC Clumps Ur Squamous Epith Cells Ur Renal Epithelial Cell Uric Acid Crystals Amorphous Sediment Urine Bacteria Urine Mucus Stool Occult Blood Urine Opiates Screen Urine Fentanyl Screen Ur Barbiturates Screen Ur Phencyclidine Scrn Ur Amphetamines Screen U Benzodiazepines Scrn Urine Cocaine Screen U Marijuana (THC) Screen C. difficile Tox B Gene COVID-19 (KRISTOPHER) COVID-19 Clin Com Blood Type Antibody Screen Crossmatch 06/20/21 06/20/21 06/20/21 07:12 11:32 15:31 WBC RBC Hgb Hct MCV MCH MCHC RDW Plt Count MPV Immature Gran % (Auto) Neut % (Auto) Lymph % (Auto) [place] % (Auto) Eos % (Auto) Baso % (Auto) Lymph # (Auto) [place] # (Auto) Eos # (Auto) Baso # (Auto) Abs Immat Gran (auto) Absolute Neuts (auto) Absolute Nucleated RBC Nucleated RBC % (auto) Neutrophils % (Manual) Band Neutrophils % Lymphocytes % (Manual) Monocytes % (Manual) Eosinophils % (Manual) Metamyelocytes % Myelocytes % Promyelocytes % Abs Neuts (Manual) Lymphocytes # (Manual) Monocytes # (Manual) Eosinophils # (Manual) Metamyelocytes # Myelocytes # Promyelocytes # [place] Cells Toxic Vacuolation Platelet Estimate Large Platelets Plt Morphology Comment RBC Morphology Polychromasia Hypochromasia Basophilic Stippling Microcytosis Macrocytosis Target Cells Tear Drop Cells Ovalocytes [place] Cells Acanthocytes ([place]) Smear Tech's Comments Smear Path Review PT INR APTT D-Dimer High Sensitivty O2 Saturation ABG pH at Pt Temp ABG pCO2 at Pt Temp ABG pO2 at Pt Temp ABG HCO3 ABG Base Excess (Actual) VBG pH VBG pCO2 VBG pO2 VBG HCO3 VBG O2 Saturation VBG Base Excess Sodium Potassium Chloride Carbon Dioxide Anion Gap BUN Creatinine Estim Creat Clear Calc Estimated GFR POC Glucose 180 H 178 H Random Glucose Fasting Glucose Lactic Acid Lactic Acid F/U @ 2Hr Lactic Acid F/U @ 4Hr Calcium Phosphorus Magnesium Ferritin Total Bilirubin Direct Bilirubin AST ALT Alkaline Phosphatase Lactate Dehydrogenase Total Creatine Kinase Troponin I High Sens 18.7 C-Reactive Protein B-Natriuretic Peptide Total Protein Albumin Procalcitonin TSH Urine Color Urine Appearance Urine pH Ur Specific [place] Urine Protein Urine Glucose (UA) Urine Ketones Urine Blood Urine Nitrite Ur Leukocyte Esterase Urine RBC Urine WBC Urine WBC Clumps Ur Squamous Epith Cells Ur Renal Epithelial Cell Uric Acid Crystals Amorphous Sediment Urine Bacteria Urine Mucus Stool Occult Blood Urine Opiates Screen Urine Fentanyl Screen Ur Barbiturates Screen Ur Phencyclidine Scrn Ur Amphetamines Screen U Benzodiazepines Scrn Urine Cocaine Screen U Marijuana (THC) Screen C. difficile Tox B Gene COVID-19 (KRISTOPHER) COVID-19 Clin Com Blood Type Antibody Screen Crossmatch 06/20/21 06/20/21 06/21/21 16:58 23:43 05:45 WBC 8.4 RBC 3.08 L Hgb 7.5 L Hct 25.7 L MCV 83.4 MCH 24.4 L MCHC 29.2 L RDW 17.1 H Plt Count 194 D MPV 9.9 Immature Gran % (Auto) 0.8 H Neut % (Auto) 89.0 H Lymph % (Auto) 6.5 L [place] % (Auto) 3.5 Eos % (Auto) 0.2 Baso % (Auto) 0.0 Lymph # (Auto) 0.6 L [place] # (Auto) 0.3 Eos # (Auto) 0.0 Baso # (Auto) 0.0 Abs Immat Gran (auto) 0.07 H Absolute Neuts (auto) 7.5 Absolute Nucleated RBC 0.000 Nucleated RBC % (auto) 0.0 Neutrophils % (Manual) Band Neutrophils % Lymphocytes % (Manual) Monocytes % (Manual) Eosinophils % (Manual) Metamyelocytes % Myelocytes % Promyelocytes % Abs Neuts (Manual) Lymphocytes # (Manual) Monocytes # (Manual) Eosinophils # (Manual) Metamyelocytes # Myelocytes # Promyelocytes # [place] Cells Toxic Vacuolation Platelet Estimate Large Platelets Plt Morphology Comment RBC Morphology Polychromasia Hypochromasia Basophilic Stippling Microcytosis Macrocytosis Target Cells Tear Drop Cells Ovalocytes [place] Cells Acanthocytes (Spur) Smear Tech's Comments Smear Path Review PT INR APTT D-Dimer High Sensitivty O2 Saturation ABG pH at Pt Temp ABG pCO2 at Pt Temp ABG pO2 at Pt Temp ABG HCO3 ABG Base Excess (Actual) VBG pH VBG pCO2 VBG pO2 VBG HCO3 VBG O2 Saturation VBG Base Excess Sodium Potassium Chloride Carbon Dioxide Anion Gap BUN Creatinine Estim Creat Clear Calc Estimated GFR POC Glucose 258 H 259 H Random Glucose Fasting Glucose Lactic Acid Lactic Acid F/U @ 2Hr Lactic Acid F/U @ 4Hr Calcium Phosphorus Magnesium Ferritin Total Bilirubin Direct Bilirubin AST ALT Alkaline Phosphatase Lactate Dehydrogenase Total Creatine Kinase Troponin I High Sens C-Reactive Protein B-Natriuretic Peptide Total Protein Albumin Procalcitonin TSH Urine Color Urine Appearance Urine pH Ur Specific [place] Urine Protein Urine Glucose (UA) Urine Ketones Urine Blood Urine Nitrite Ur Leukocyte Esterase Urine RBC Urine WBC Urine WBC Clumps Ur Squamous Epith Cells Ur Renal Epithelial Cell Uric Acid Crystals Amorphous Sediment Urine Bacteria Urine Mucus Stool Occult Blood Urine Opiates Screen Urine Fentanyl Screen Ur Barbiturates Screen Ur Phencyclidine Scrn Ur Amphetamines Screen U Benzodiazepines Scrn Urine Cocaine Screen U Marijuana (THC) Screen C. difficile Tox B Gene COVID-19 (KRISTOPHER) COVID-19 Clin Com Blood Type Antibody Screen Crossmatch 06/21/21 06/21/21 06/21/21 05:45 05:47 05:52 WBC RBC Hgb Hct MCV MCH MCHC RDW Plt Count MPV Immature Gran % (Auto) Neut % (Auto) Lymph % (Auto) [place] % (Auto) Eos % (Auto) Baso % (Auto) Lymph # (Auto) [place] # (Auto) Eos # (Auto) Baso # (Auto) Abs Immat Gran (auto) Absolute Neuts (auto) Absolute Nucleated RBC Nucleated RBC % (auto) Neutrophils % (Manual) Band Neutrophils % Lymphocytes % (Manual) Monocytes % (Manual) Eosinophils % (Manual) Metamyelocytes % Myelocytes % Promyelocytes % Abs Neuts (Manual) Lymphocytes # (Manual) Monocytes # (Manual) Eosinophils # (Manual) Metamyelocytes # Myelocytes # Promyelocytes # Smudge Cells Toxic Vacuolation Platelet Estimate Large Platelets Plt Morphology Comment RBC Morphology Polychromasia Hypochromasia Basophilic Stippling Microcytosis Macrocytosis Target Cells Tear Drop Cells Ovalocytes [place] Cells Acanthocytes (Spur) Smear Tech's Comments Smear Path Review PT INR APTT D-Dimer High Sensitivty O2 Saturation ABG pH at Pt Temp ABG pCO2 at Pt Temp ABG pO2 at Pt Temp ABG HCO3 ABG Base Excess (Actual) VBG pH 7.46 H VBG pCO2 51 VBG pO2 53 VBG HCO3 36 H VBG O2 Saturation 81.0 VBG Base Excess 11.8 Sodium 142 Potassium 4.3 Chloride 102 Carbon Dioxide 33 H Anion Gap 11 L BUN 30 H Creatinine 0.84 Estim Creat Clear Calc 124.7 Estimated GFR > 60 POC Glucose 216 H Random Glucose 230 H Fasting Glucose Lactic Acid Lactic Acid F/U @ 2Hr Lactic Acid F/U @ 4Hr Calcium 9.1 Phosphorus Magnesium Ferritin Total Bilirubin 0.3 Direct Bilirubin AST 7 ALT 9 Alkaline Phosphatase 77 Lactate Dehydrogenase Total Creatine Kinase Troponin I High Sens C-Reactive Protein B-Natriuretic Peptide Total Protein 5.7 L Albumin 3.2 L Procalcitonin TSH Urine Color Urine Appearance Urine pH Ur Specific [place] Urine Protein Urine Glucose (UA) Urine Ketones Urine Blood Urine Nitrite Ur Leukocyte Esterase Urine RBC Urine WBC Urine WBC Clumps Ur Squamous Epith Cells Ur Renal Epithelial Cell Uric Acid Crystals Amorphous Sediment Urine Bacteria Urine Mucus Stool Occult Blood Urine Opiates Screen Urine Fentanyl Screen Ur Barbiturates Screen Ur Phencyclidine Scrn Ur Amphetamines Screen U Benzodiazepines Scrn Urine Cocaine Screen U Marijuana (THC) Screen C. difficile Tox B Gene COVID-19 (KRISTOPHER) COVID-19 Clin Com Blood Type Antibody Screen Crossmatch 06/21/21 06/21/21 06/21/21 08:45 09:33 11:17 WBC RBC Hgb Hct MCV MCH MCHC RDW Plt Count MPV Immature Gran % (Auto) Neut % (Auto) Lymph % (Auto) [place] % (Auto) Eos % (Auto) Baso % (Auto) Lymph # (Auto) [place] # (Auto) Eos # (Auto) Baso # (Auto) Abs Immat Gran (auto) Absolute Neuts (auto) Absolute Nucleated RBC Nucleated RBC % (auto) Neutrophils % (Manual) Band Neutrophils % Lymphocytes % (Manual) Monocytes % (Manual) Eosinophils % (Manual) Metamyelocytes % Myelocytes % Promyelocytes % Abs Neuts (Manual) Lymphocytes # (Manual) Monocytes # (Manual) Eosinophils # (Manual) Metamyelocytes # Myelocytes # Promyelocytes # Smudge Cells Toxic Vacuolation Platelet Estimate Large Platelets Plt Morphology Comment RBC Morphology Polychromasia Hypochromasia Basophilic Stippling Microcytosis Macrocytosis Target Cells Tear Drop Cells Ovalocytes [place] Cells Acanthocytes (Spur) Smear Tech's Comments Smear Path Review PT INR APTT D-Dimer High Sensitivty O2 Saturation ABG pH at Pt Temp ABG pCO2 at Pt Temp ABG pO2 at Pt Temp ABG HCO3 ABG Base Excess (Actual) VBG pH VBG pCO2 VBG pO2 VBG HCO3 VBG O2 Saturation VBG Base Excess Sodium Potassium Chloride Carbon Dioxide Anion Gap BUN Creatinine Estim Creat Clear Calc Estimated GFR POC Glucose 213 H Random Glucose Fasting Glucose Lactic Acid Lactic Acid F/U @ 2Hr Lactic Acid F/U @ 4Hr Calcium Phosphorus Magnesium Ferritin Total Bilirubin Direct Bilirubin AST ALT Alkaline Phosphatase Lactate Dehydrogenase Total Creatine Kinase Troponin I High Sens C-Reactive Protein B-Natriuretic Peptide Total Protein Albumin Procalcitonin TSH Urine Color YELLOW Urine Appearance CLOUDY Urine pH 6.0 Ur Specific [place] 1.020 Urine Protein 1+ H Urine Glucose (UA) NEG Urine Ketones NEG Urine Blood 3+ H Urine Nitrite NEG Ur Leukocyte Esterase 2+ H Urine RBC TNTC H Urine WBC 30-49 H Urine WBC Clumps NOTED Ur Squamous Epith Cells TRACE Ur Renal Epithelial Cell 1+ Uric Acid Crystals 2+ Amorphous Sediment 3+ Urine Bacteria 4+ Urine Mucus 1+ Stool Occult Blood Urine Opiates Screen Urine Fentanyl Screen Ur Barbiturates Screen Ur Phencyclidine Scrn Ur Amphetamines Screen U Benzodiazepines Scrn Urine Cocaine Screen U Marijuana (THC) Screen C. difficile Tox B Gene COVID-19 (KRISTOPHER) COVID-19 Clin Com Blood Type O Positive Antibody Screen NEGATIVE Crossmatch See Detail 06/21/21 06/21/21 06/21/21 16:33 17:46 23:32 WBC 9.9 RBC 3.33 L Hgb 8.3 L Hct 27.7 L MCV 83.2 MCH 24.9 L MCHC 30.0 L RDW 16.9 H Plt Count 187 MPV 10.3 Immature Gran % (Auto) 0.6 H Neut % (Auto) 93.6 H Lymph % (Auto) 2.1 L [place] % (Auto) 3.7 Eos % (Auto) 0.0 Baso % (Auto) 0.0 Lymph # (Auto) 0.2 L [place] # (Auto) 0.4 Eos # (Auto) 0.0 Baso # (Auto) 0.0 Abs Immat Gran (auto) 0.06 H Absolute Neuts (auto) 9.2 H Absolute Nucleated RBC 0.000 Nucleated RBC % (auto) 0.0 Neutrophils % (Manual) Band Neutrophils % Lymphocytes % (Manual) Monocytes % (Manual) Eosinophils % (Manual) Metamyelocytes % Myelocytes % Promyelocytes % Abs Neuts (Manual) Lymphocytes # (Manual) Monocytes # (Manual) Eosinophils # (Manual) Metamyelocytes # Myelocytes # Promyelocytes # Smudge Cells Toxic Vacuolation Platelet Estimate Large Platelets Plt Morphology Comment RBC Morphology Polychromasia Hypochromasia Basophilic Stippling Microcytosis Macrocytosis Target Cells Tear Drop Cells Ovalocytes [place] Cells Acanthocytes (Spur) Smear Tech's Comments VERIFIED Smear Path Review PT INR APTT D-Dimer High Sensitivty O2 Saturation ABG pH at Pt Temp ABG pCO2 at Pt Temp ABG pO2 at Pt Temp ABG HCO3 ABG Base Excess (Actual) VBG pH VBG pCO2 VBG pO2 VBG HCO3 VBG O2 Saturation VBG Base Excess Sodium Potassium Chloride Carbon Dioxide Anion Gap BUN Creatinine Estim Creat Clear Calc Estimated GFR POC Glucose 320 H 328 H Random Glucose Fasting Glucose Lactic Acid Lactic Acid F/U @ 2Hr Lactic Acid F/U @ 4Hr Calcium Phosphorus Magnesium Ferritin Total Bilirubin Direct Bilirubin AST ALT Alkaline Phosphatase Lactate Dehydrogenase Total Creatine Kinase Troponin I High Sens C-Reactive Protein B-Natriuretic Peptide Total Protein Albumin Procalcitonin TSH Urine Color Urine Appearance Urine pH Ur Specific [place] Urine Protein Urine Glucose (UA) Urine Ketones Urine Blood Urine Nitrite Ur Leukocyte Esterase Urine RBC Urine WBC Urine WBC Clumps Ur Squamous Epith Cells Ur Renal Epithelial Cell Uric Acid Crystals Amorphous Sediment Urine Bacteria Urine Mucus Stool Occult Blood Urine Opiates Screen Urine Fentanyl Screen Ur Barbiturates Screen Ur Phencyclidine Scrn Ur Amphetamines Screen U Benzodiazepines Scrn Urine Cocaine Screen U Marijuana (THC) Screen C. difficile Tox B Gene COVID-19 (KRISTOPHER) COVID-19 Clin Com Blood Type Antibody Screen Crossmatch 06/22/21 06/22/21 06/22/21 05:17 05:17 05:20 WBC 5.3 RBC 3.17 L Hgb 7.8 L Hct 26.5 L MCV 83.6 MCH 24.6 L MCHC 29.4 L RDW 17.2 H Plt Count 169 MPV 10.8 Immature Gran % (Auto) 1.3 H Neut % (Auto) 88.0 H Lymph % (Auto) 6.7 L [place] % (Auto) 3.8 Eos % (Auto) 0.2 Baso % (Auto) 0.0 Lymph # (Auto) 0.4 L [place] # (Auto) 0.2 Eos # (Auto) 0.0 Baso # (Auto) 0.0 Abs Immat Gran (auto) 0.07 H Absolute Neuts (auto) 4.6 Absolute Nucleated RBC 0.020 H Nucleated RBC % (auto) 0.4 H Neutrophils % (Manual) Band Neutrophils % Lymphocytes % (Manual) Monocytes % (Manual) Eosinophils % (Manual) Metamyelocytes % Myelocytes % Promyelocytes % Abs Neuts (Manual) Lymphocytes # (Manual) Monocytes # (Manual) Eosinophils # (Manual) Metamyelocytes # Myelocytes # Promyelocytes # Smudge Cells Toxic Vacuolation Platelet Estimate Large Platelets Plt Morphology Comment RBC Morphology Polychromasia Hypochromasia Basophilic Stippling Microcytosis Macrocytosis Target Cells Tear Drop Cells Ovalocytes [place] Cells Acanthocytes (Spur) Smear Tech's Comments Smear Path Review PT INR APTT D-Dimer High Sensitivty O2 Saturation ABG pH at Pt Temp ABG pCO2 at Pt Temp ABG pO2 at Pt Temp ABG HCO3 ABG Base Excess (Actual) VBG pH VBG pCO2 VBG pO2 VBG HCO3 VBG O2 Saturation VBG Base Excess Sodium 138 Potassium 4.5 Chloride 100 Carbon Dioxide 35 H Anion Gap 8 L BUN 21 H Creatinine 0.75 Estim Creat Clear Calc 139.7 Estimated GFR > 60 POC Glucose 268 H Random Glucose 309 H Fasting Glucose Lactic Acid Lactic Acid F/U @ 2Hr Lactic Acid F/U @ 4Hr Calcium 8.6 Phosphorus Magnesium Ferritin Total Bilirubin 0.3 Direct Bilirubin AST 7 ALT 6 Alkaline Phosphatase 73 Lactate Dehydrogenase Total Creatine Kinase Troponin I High Sens C-Reactive Protein B-Natriuretic Peptide Total Protein 5.3 L Albumin 2.7 L Procalcitonin TSH Urine Color Urine Appearance Urine pH Ur Specific [place] Urine Protein Urine Glucose (UA) Urine Ketones Urine Blood Urine Nitrite Ur Leukocyte Esterase Urine RBC Urine WBC Urine WBC Clumps Ur Squamous Epith Cells Ur Renal Epithelial Cell Uric Acid Crystals Amorphous Sediment Urine Bacteria Urine Mucus Stool Occult Blood Urine Opiates Screen Urine Fentanyl Screen Ur Barbiturates Screen Ur Phencyclidine Scrn Ur Amphetamines Screen U Benzodiazepines Scrn Urine Cocaine Screen U Marijuana (THC) Screen C. difficile Tox B Gene COVID-19 (KRISTOPHER) COVID-19 Clin Com Blood Type Antibody Screen Crossmatch 06/22/21 06/22/21 06/22/21 05:23 11:52 18:12 WBC RBC Hgb Hct MCV MCH MCHC RDW Plt Count MPV Immature Gran % (Auto) Neut % (Auto) Lymph % (Auto) [place] % (Auto) Eos % (Auto) Baso % (Auto) Lymph # (Auto) [place] # (Auto) Eos # (Auto) Baso # (Auto) Abs Immat Gran (auto) Absolute Neuts (auto) Absolute Nucleated RBC Nucleated RBC % (auto) Neutrophils % (Manual) Band Neutrophils % Lymphocytes % (Manual) Monocytes % (Manual) Eosinophils % (Manual) Metamyelocytes % Myelocytes % Promyelocytes % Abs Neuts (Manual) Lymphocytes # (Manual) Monocytes # (Manual) Eosinophils # (Manual) Metamyelocytes # Myelocytes # Promyelocytes # Smudge Cells Toxic Vacuolation Platelet Estimate Large Platelets Plt Morphology Comment RBC Morphology Polychromasia Hypochromasia Basophilic Stippling Microcytosis Macrocytosis Target Cells Tear Drop Cells Ovalocytes [place] Cells Acanthocytes (Spur) Smear Tech's Comments Smear Path Review PT INR APTT D-Dimer High Sensitivty O2 Saturation ABG pH at Pt Temp ABG pCO2 at Pt Temp ABG pO2 at Pt Temp ABG HCO3 ABG Base Excess (Actual) VBG pH 7.50 H VBG pCO2 41 VBG pO2 43 VBG HCO3 32 H VBG O2 Saturation 66.0 VBG Base Excess 9.0 Sodium Potassium Chloride Carbon Dioxide Anion Gap BUN Creatinine Estim Creat Clear Calc Estimated GFR POC Glucose 294 H 346 H Random Glucose Fasting Glucose Lactic Acid Lactic Acid F/U @ 2Hr Lactic Acid F/U @ 4Hr Calcium Phosphorus Magnesium Ferritin Total Bilirubin Direct Bilirubin AST ALT Alkaline Phosphatase Lactate Dehydrogenase Total Creatine Kinase Troponin I High Sens C-Reactive Protein B-Natriuretic Peptide Total Protein Albumin Procalcitonin TSH Urine Color Urine Appearance Urine pH Ur Specific [place] Urine Protein Urine Glucose (UA) Urine Ketones Urine Blood Urine Nitrite Ur Leukocyte Esterase Urine RBC Urine WBC Urine WBC Clumps Ur Squamous Epith Cells Ur Renal Epithelial Cell Uric Acid Crystals Amorphous Sediment Urine Bacteria Urine Mucus Stool Occult Blood Urine Opiates Screen Urine Fentanyl Screen Ur Barbiturates Screen Ur Phencyclidine Scrn Ur Amphetamines Screen U Benzodiazepines Scrn Urine Cocaine Screen U Marijuana (THC) Screen C. difficile Tox B Gene COVID-19 (KRISTOPHER) COVID-19 Clin Com Blood Type Antibody Screen Crossmatch 06/22/21 06/23/21 06/23/21 23:46 05:30 05:30 WBC 5.4 RBC 3.08 L Hgb 7.5 L Hct 26.0 L MCV 84.4 MCH 24.4 L MCHC 28.8 L RDW 17.5 H Plt Count 194 MPV 11.2 Immature Gran % (Auto) 4.7 H Neut % (Auto) 80.9 H Lymph % (Auto) 7.3 L [place] % (Auto) 6.7 Eos % (Auto) 0.4 Baso % (Auto) 0.0 Lymph # (Auto) 0.4 L [place] # (Auto) 0.4 Eos # (Auto) 0.0 Baso # (Auto) 0.0 Abs Immat Gran (auto) 0.25 H Absolute Neuts (auto) 4.4 Absolute Nucleated RBC 0.030 H Nucleated RBC % (auto) 0.6 H Neutrophils % (Manual) Band Neutrophils % Lymphocytes % (Manual) Monocytes % (Manual) Eosinophils % (Manual) Metamyelocytes % Myelocytes % Promyelocytes % Abs Neuts (Manual) Lymphocytes # (Manual) Monocytes # (Manual) Eosinophils # (Manual) Metamyelocytes # Myelocytes # Promyelocytes # Smudge Cells Toxic Vacuolation Platelet Estimate Large Platelets Plt Morphology Comment RBC Morphology Polychromasia Hypochromasia Basophilic Stippling Microcytosis Macrocytosis Target Cells Tear Drop Cells Ovalocytes [place] Cells Acanthocytes (Spur) Smear Tech's Comments Smear Path Review PT INR APTT D-Dimer High Sensitivty O2 Saturation ABG pH at Pt Temp ABG pCO2 at Pt Temp ABG pO2 at Pt Temp ABG HCO3 ABG Base Excess (Actual) VBG pH VBG pCO2 VBG pO2 VBG HCO3 VBG O2 Saturation VBG Base Excess Sodium 141 Potassium 4.6 Chloride 105 Carbon Dioxide 31 H Anion Gap 10 L BUN 27 H Creatinine 0.73 Estim Creat Clear Calc 143.5 Estimated GFR > 60 POC Glucose 285 H Random Glucose 297 H Fasting Glucose Lactic Acid Lactic Acid F/U @ 2Hr Lactic Acid F/U @ 4Hr Calcium 8.5 Phosphorus Magnesium Ferritin Total Bilirubin 0.2 Direct Bilirubin AST 6 ALT 7 Alkaline Phosphatase 66 Lactate Dehydrogenase Total Creatine Kinase Troponin I High Sens C-Reactive Protein B-Natriuretic Peptide Total Protein 5.1 L Albumin 2.6 L Procalcitonin TSH Urine Color Urine Appearance Urine pH Ur Specific [place] Urine Protein Urine Glucose (UA) Urine Ketones Urine Blood Urine Nitrite Ur Leukocyte Esterase Urine RBC Urine WBC Urine WBC Clumps Ur Squamous Epith Cells Ur Renal Epithelial Cell Uric Acid Crystals Amorphous Sediment Urine Bacteria Urine Mucus Stool Occult Blood Urine Opiates Screen Urine Fentanyl Screen Ur Barbiturates Screen Ur Phencyclidine Scrn Ur Amphetamines Screen U Benzodiazepines Scrn Urine Cocaine Screen U Marijuana (THC) Screen C. difficile Tox B Gene COVID-19 (KRISTOPHER) COVID-19 Clin Com Blood Type Antibody Screen Crossmatch 06/23/21 06/23/21 06/23/21 05:33 05:40 10:49 WBC RBC Hgb Hct MCV MCH MCHC RDW Plt Count MPV Immature Gran % (Auto) Neut % (Auto) Lymph % (Auto) [place] % (Auto) Eos % (Auto) Baso % (Auto) Lymph # (Auto) [place] # (Auto) Eos # (Auto) Baso # (Auto) Abs Immat Gran (auto) Absolute Neuts (auto) Absolute Nucleated RBC Nucleated RBC % (auto) Neutrophils % (Manual) Band Neutrophils % Lymphocytes % (Manual) Monocytes % (Manual) Eosinophils % (Manual) Metamyelocytes % Myelocytes % Promyelocytes % Abs Neuts (Manual) Lymphocytes # (Manual) Monocytes # (Manual) Eosinophils # (Manual) Metamyelocytes # Myelocytes # Promyelocytes # Smudge Cells Toxic Vacuolation Platelet Estimate Large Platelets Plt Morphology Comment RBC Morphology Polychromasia Hypochromasia Basophilic Stippling Microcytosis Macrocytosis Target Cells Tear Drop Cells Ovalocytes [place] Cells Acanthocytes (Spur) Smear Tech's Comments Smear Path Review PT INR APTT D-Dimer High Sensitivty O2 Saturation ABG pH at Pt Temp ABG pCO2 at Pt Temp ABG pO2 at Pt Temp ABG HCO3 ABG Base Excess (Actual) VBG pH 7.50 H VBG pCO2 40 VBG pO2 48 VBG HCO3 31 H VBG O2 Saturation 74.0 VBG Base Excess 8.0 Sodium Potassium Chloride Carbon Dioxide Anion Gap BUN Creatinine Estim Creat Clear Calc Estimated GFR POC Glucose 269 H Random Glucose Fasting Glucose Lactic Acid Lactic Acid F/U @ 2Hr Lactic Acid F/U @ 4Hr Calcium Phosphorus Magnesium Ferritin Total Bilirubin Direct Bilirubin AST ALT Alkaline Phosphatase Lactate Dehydrogenase Total Creatine Kinase Troponin I High Sens C-Reactive Protein B-Natriuretic Peptide Total Protein Albumin Procalcitonin TSH Urine Color Urine Appearance Urine pH Ur Specific [place] Urine Protein Urine Glucose (UA) Urine Ketones Urine Blood Urine Nitrite Ur Leukocyte Esterase Urine RBC Urine WBC Urine WBC Clumps Ur Squamous Epith Cells Ur Renal Epithelial Cell Uric Acid Crystals Amorphous Sediment Urine Bacteria Urine Mucus Stool Occult Blood Urine Opiates Screen Urine Fentanyl Screen Ur Barbiturates Screen Ur Phencyclidine Scrn Ur Amphetamines Screen U Benzodiazepines Scrn Urine Cocaine Screen U Marijuana (THC) Screen C. difficile Tox B Gene NEGATIVE COVID-19 (KRISTOPHER) COVID-19 Clin Com Blood Type Antibody Screen Crossmatch 06/23/21 06/23/21 06/23/21 11:51 11:51 18:00 WBC RBC Hgb Hct MCV MCH MCHC RDW Plt Count MPV Immature Gran % (Auto) Neut % (Auto) Lymph % (Auto) [place] % (Auto) Eos % (Auto) Baso % (Auto) Lymph # (Auto) [place] # (Auto) Eos # (Auto) Baso # (Auto) Abs Immat Gran (auto) Absolute Neuts (auto) Absolute Nucleated RBC Nucleated RBC % (auto) Neutrophils % (Manual) Band Neutrophils % Lymphocytes % (Manual) Monocytes % (Manual) Eosinophils % (Manual) Metamyelocytes % Myelocytes % Promyelocytes % Abs Neuts (Manual) Lymphocytes # (Manual) Monocytes # (Manual) Eosinophils # (Manual) Metamyelocytes # Myelocytes # Promyelocytes # Smudge Cells Toxic Vacuolation Platelet Estimate Large Platelets Plt Morphology Comment RBC Morphology Polychromasia Hypochromasia Basophilic Stippling Microcytosis Macrocytosis Target Cells Tear Drop Cells Ovalocytes [place] Cells Acanthocytes (Spur) Smear Tech's Comments Smear Path Review PT INR APTT D-Dimer High Sensitivty O2 Saturation ABG pH at Pt Temp ABG pCO2 at Pt Temp ABG pO2 at Pt Temp ABG HCO3 ABG Base Excess (Actual) VBG pH VBG pCO2 VBG pO2 VBG HCO3 VBG O2 Saturation VBG Base Excess Sodium Potassium Chloride Carbon Dioxide Anion Gap BUN Creatinine Estim Creat Clear Calc Estimated GFR POC Glucose 377 H* 421 H* 364 H* Random Glucose Fasting Glucose Lactic Acid Lactic Acid F/U @ 2Hr Lactic Acid F/U @ 4Hr Calcium Phosphorus Magnesium Ferritin Total Bilirubin Direct Bilirubin AST ALT Alkaline Phosphatase Lactate Dehydrogenase Total Creatine Kinase Troponin I High Sens C-Reactive Protein B-Natriuretic Peptide Total Protein Albumin Procalcitonin TSH Urine Color Urine Appearance Urine pH Ur Specific [place] Urine Protein Urine Glucose (UA) Urine Ketones Urine Blood Urine Nitrite Ur Leukocyte Esterase Urine RBC Urine WBC Urine WBC Clumps Ur Squamous Epith Cells Ur Renal Epithelial Cell Uric Acid Crystals Amorphous Sediment Urine Bacteria Urine Mucus Stool Occult Blood Urine Opiates Screen Urine Fentanyl Screen Ur Barbiturates Screen Ur Phencyclidine Scrn Ur Amphetamines Screen U Benzodiazepines Scrn Urine Cocaine Screen U Marijuana (THC) Screen C. difficile Tox B Gene COVID-19 (KRISTOPHER) COVID-19 Clin Com Blood Type Antibody Screen Crossmatch 06/23/21 06/23/21 06/24/21 22:29 23:31 00:27 WBC RBC Hgb Hct MCV MCH MCHC RDW Plt Count MPV Immature Gran % (Auto) Neut % (Auto) Lymph % (Auto) [place] % (Auto) Eos % (Auto) Baso % (Auto) Lymph # (Auto) [place] # (Auto) Eos # (Auto) Baso # (Auto) Abs Immat Gran (auto) Absolute Neuts (auto) Absolute Nucleated RBC Nucleated RBC % (auto) Neutrophils % (Manual) Band Neutrophils % Lymphocytes % (Manual) Monocytes % (Manual) Eosinophils % (Manual) Metamyelocytes % Myelocytes % Promyelocytes % Abs Neuts (Manual) Lymphocytes # (Manual) Monocytes # (Manual) Eosinophils # (Manual) Metamyelocytes # Myelocytes # Promyelocytes # Smudge Cells Toxic Vacuolation Platelet Estimate Large Platelets Plt Morphology Comment RBC Morphology Polychromasia Hypochromasia Basophilic Stippling Microcytosis Macrocytosis Target Cells Tear Drop Cells Ovalocytes [place] Cells Acanthocytes (Spur) Smear Tech's Comments Smear Path Review PT INR APTT D-Dimer High Sensitivty O2 Saturation ABG pH at Pt Temp ABG pCO2 at Pt Temp ABG pO2 at Pt Temp ABG HCO3 ABG Base Excess (Actual) VBG pH VBG pCO2 VBG pO2 VBG HCO3 VBG O2 Saturation VBG Base Excess Sodium Potassium Chloride Carbon Dioxide Anion Gap BUN Creatinine Estim Creat Clear Calc Estimated GFR POC Glucose 288 H 293 H Random Glucose Fasting Glucose Lactic Acid Lactic Acid F/U @ 2Hr Lactic Acid F/U @ 4Hr Calcium Phosphorus Magnesium Ferritin Total Bilirubin Direct Bilirubin AST ALT Alkaline Phosphatase Lactate Dehydrogenase Total Creatine Kinase Troponin I High Sens 21.1 C-Reactive Protein B-Natriuretic Peptide Total Protein Albumin Procalcitonin TSH Urine Color Urine Appearance Urine pH Ur Specific [place] Urine Protein Urine Glucose (UA) Urine Ketones Urine Blood Urine Nitrite Ur Leukocyte Esterase Urine RBC Urine WBC Urine WBC Clumps Ur Squamous Epith Cells Ur Renal Epithelial Cell Uric Acid Crystals Amorphous Sediment Urine Bacteria Urine Mucus Stool Occult Blood Urine Opiates Screen Urine Fentanyl Screen Ur Barbiturates Screen Ur Phencyclidine Scrn Ur Amphetamines Screen U Benzodiazepines Scrn Urine Cocaine Screen U Marijuana (THC) Screen C. difficile Tox B Gene COVID-19 (KRISTOPHER) COVID-19 Clin Com Blood Type Antibody Screen Crossmatch 06/24/21 06/24/21 06/24/21 05:16 05:16 05:16 WBC RBC Hgb Hct MCV MCH MCHC RDW Plt Count MPV Immature Gran % (Auto) Neut % (Auto) Lymph % (Auto) [place] % (Auto) Eos % (Auto) Baso % (Auto) Lymph # (Auto) [place] # (Auto) Eos # (Auto) Baso # (Auto) Abs Immat Gran (auto) Absolute Neuts (auto) Absolute Nucleated RBC Nucleated RBC % (auto) Neutrophils % (Manual) Band Neutrophils % Lymphocytes % (Manual) Monocytes % (Manual) Eosinophils % (Manual) Metamyelocytes % Myelocytes % Promyelocytes % Abs Neuts (Manual) Lymphocytes # (Manual) Monocytes # (Manual) Eosinophils # (Manual) Metamyelocytes # Myelocytes # Promyelocytes # Smudge Cells Toxic Vacuolation Platelet Estimate Large Platelets Plt Morphology Comment RBC Morphology Polychromasia Hypochromasia Basophilic Stippling Microcytosis Macrocytosis Target Cells Tear Drop Cells Ovalocytes [place] Cells Acanthocytes (Spur) Smear Tech's Comments Smear Path Review PT 13.6 H INR 1.2 H APTT 24.3 D-Dimer High Sensitivty 87037 O2 Saturation ABG pH at Pt Temp ABG pCO2 at Pt Temp ABG pO2 at Pt Temp ABG HCO3 ABG Base Excess (Actual) VBG pH VBG pCO2 VBG pO2 VBG HCO3 VBG O2 Saturation VBG Base Excess Sodium 140 Potassium 4.3 Chloride 100 Carbon Dioxide 32 H Anion Gap 12 BUN 32 H Creatinine 0.73 Estim Creat Clear Calc 143.5 Estimated GFR > 60 POC Glucose Random Glucose 239 H Fasting Glucose Lactic Acid Lactic Acid F/U @ 2Hr Lactic Acid F/U @ 4Hr Calcium 8.8 Phosphorus 3.1 Magnesium 2.0 Ferritin Total Bilirubin 0.3 Direct Bilirubin 0.2 AST 8 ALT 7 Alkaline Phosphatase 73 Lactate Dehydrogenase Total Creatine Kinase Troponin I High Sens 20.9 C-Reactive Protein B-Natriuretic Peptide Total Protein 5.7 L Albumin 2.8 L Procalcitonin TSH Urine Color Urine Appearance Urine pH Ur Specific [place] Urine Protein Urine Glucose (UA) Urine Ketones Urine Blood Urine Nitrite Ur Leukocyte Esterase Urine RBC Urine WBC Urine WBC Clumps Ur Squamous Epith Cells Ur Renal Epithelial Cell Uric Acid Crystals Amorphous Sediment Urine Bacteria Urine Mucus Stool Occult Blood Urine Opiates Screen Urine Fentanyl Screen Ur Barbiturates Screen Ur Phencyclidine Scrn Ur Amphetamines Screen U Benzodiazepines Scrn Urine Cocaine Screen U Marijuana (THC) Screen C. difficile Tox B Gene COVID-19 (KRISTOPHER) COVID-19 Clin Com Blood Type Antibody Screen Crossmatch 06/24/21 06/24/21 06/24/21 05:17 05:26 06:18 WBC 6.2 RBC 3.28 L Hgb 8.1 L Hct 27.4 L MCV 83.5 MCH 24.7 L MCHC 29.6 L RDW 17.2 H Plt Count 221 MPV 10.8 Immature Gran % (Auto) Cancelled Neut % (Auto) Cancelled Lymph % (Auto) Cancelled [place] % (Auto) Cancelled Eos % (Auto) Cancelled Baso % (Auto) Cancelled Lymph # (Auto) Cancelled [place] # (Auto) Cancelled Eos # (Auto) Cancelled Baso # (Auto) Cancelled Abs Immat Gran (auto) Cancelled Absolute Neuts (auto) Cancelled Absolute Nucleated RBC 0.040 H Nucleated RBC % (auto) 0.7 H Neutrophils % (Manual) 77 H Band Neutrophils % 2 L Lymphocytes % (Manual) 6 L Monocytes % (Manual) 8 Eosinophils % (Manual) Metamyelocytes % 1 Myelocytes % 3 Promyelocytes % 3 Abs Neuts (Manual) 4.9 Lymphocytes # (Manual) 0.4 L Monocytes # (Manual) 0.5 Eosinophils # (Manual) Metamyelocytes # 0.1 Myelocytes # 0.2 Promyelocytes # 0.2 Smudge Cells PRESENT Toxic Vacuolation PRESENT Platelet Estimate NORMAL Large Platelets Plt Morphology Comment NORMAL RBC Morphology NOTED Polychromasia 1+ (0-2) Hypochromasia 1+ (5-14) Basophilic Stippling Microcytosis 2+ (15-30) Macrocytosis Target Cells 1+ (5-14) Tear Drop Cells 1+ (0-2) Ovalocytes 1+ (5-14) [place] Cells 2+ (3-5) Acanthocytes (Spur) Smear Tech's Comments Smear Path Review PT INR APTT D-Dimer High Sensitivty O2 Saturation ABG pH at Pt Temp ABG pCO2 at Pt Temp ABG pO2 at Pt Temp ABG HCO3 ABG Base Excess (Actual) VBG pH 7.50 H VBG pCO2 44 VBG pO2 50 VBG HCO3 35 H VBG O2 Saturation 77.0 VBG Base Excess 11.3 Sodium Potassium Chloride Carbon Dioxide Anion Gap BUN Creatinine Estim Creat Clear Calc Estimated GFR POC Glucose 210 H Random Glucose Fasting Glucose Lactic Acid Lactic Acid F/U @ 2Hr Lactic Acid F/U @ 4Hr Calcium Phosphorus Magnesium Ferritin Total Bilirubin Direct Bilirubin AST ALT Alkaline Phosphatase Lactate Dehydrogenase Total Creatine Kinase Troponin I High Sens C-Reactive Protein B-Natriuretic Peptide Total Protein Albumin Procalcitonin TSH Urine Color Urine Appearance Urine pH Ur Specific [place] Urine Protein Urine Glucose (UA) Urine Ketones Urine Blood Urine Nitrite Ur Leukocyte Esterase Urine RBC Urine WBC Urine WBC Clumps Ur Squamous Epith Cells Ur Renal Epithelial Cell Uric Acid Crystals Amorphous Sediment Urine Bacteria Urine Mucus Stool Occult Blood Urine Opiates Screen Urine Fentanyl Screen Ur Barbiturates Screen Ur Phencyclidine Scrn Ur Amphetamines Screen U Benzodiazepines Scrn Urine Cocaine Screen U Marijuana (THC) Screen C. difficile Tox B Gene COVID-19 (KRISTOPHER) COVID-19 Clin Com Blood Type Antibody Screen Crossmatch 06/24/21 06/24/21 06/25/21 11:48 17:36 00:33 WBC RBC Hgb Hct MCV MCH MCHC RDW Plt Count MPV Immature Gran % (Auto) Neut % (Auto) Lymph % (Auto) [place] % (Auto) Eos % (Auto) Baso % (Auto) Lymph # (Auto) [place] # (Auto) Eos # (Auto) Baso # (Auto) Abs Immat Gran (auto) Absolute Neuts (auto) Absolute Nucleated RBC Nucleated RBC % (auto) Neutrophils % (Manual) Band Neutrophils % Lymphocytes % (Manual) Monocytes % (Manual) Eosinophils % (Manual) Metamyelocytes % Myelocytes % Promyelocytes % Abs Neuts (Manual) Lymphocytes # (Manual) Monocytes # (Manual) Eosinophils # (Manual) Metamyelocytes # Myelocytes # Promyelocytes # Smudge Cells Toxic Vacuolation Platelet Estimate Large Platelets Plt Morphology Comment RBC Morphology Polychromasia Hypochromasia Basophilic Stippling Microcytosis Macrocytosis Target Cells Tear Drop Cells Ovalocytes [place] Cells Acanthocytes (Spur) Smear Tech's Comments Smear Path Review PT INR APTT D-Dimer High Sensitivty O2 Saturation ABG pH at Pt Temp ABG pCO2 at Pt Temp ABG pO2 at Pt Temp ABG HCO3 ABG Base Excess (Actual) VBG pH VBG pCO2 VBG pO2 VBG HCO3 VBG O2 Saturation VBG Base Excess Sodium Potassium Chloride Carbon Dioxide Anion Gap BUN Creatinine Estim Creat Clear Calc Estimated GFR POC Glucose 244 H 320 H 206 H Random Glucose Fasting Glucose Lactic Acid Lactic Acid F/U @ 2Hr Lactic Acid F/U @ 4Hr Calcium Phosphorus Magnesium Ferritin Total Bilirubin Direct Bilirubin AST ALT Alkaline Phosphatase Lactate Dehydrogenase Total Creatine Kinase Troponin I High Sens C-Reactive Protein B-Natriuretic Peptide Total Protein Albumin Procalcitonin TSH Urine Color Urine Appearance Urine pH Ur Specific [place] Urine Protein Urine Glucose (UA) Urine Ketones Urine Blood Urine Nitrite Ur Leukocyte Esterase Urine RBC Urine WBC Urine WBC Clumps Ur Squamous Epith Cells Ur Renal Epithelial Cell Uric Acid Crystals Amorphous Sediment Urine Bacteria Urine Mucus Stool Occult Blood Urine Opiates Screen Urine Fentanyl Screen Ur Barbiturates Screen Ur Phencyclidine Scrn Ur Amphetamines Screen U Benzodiazepines Scrn Urine Cocaine Screen U Marijuana (THC) Screen C. difficile Tox B Gene COVID-19 (KRISTOPHER) COVID-19 Clin Com Blood Type Antibody Screen Crossmatch 06/25/21 06/25/21 06/25/21 04:55 04:55 04:55 WBC RBC Hgb Hct MCV MCH MCHC RDW Plt Count MPV Immature Gran % (Auto) Neut % (Auto) Lymph % (Auto) [place] % (Auto) Eos % (Auto) Baso % (Auto) Lymph # (Auto) [place] # (Auto) Eos # (Auto) Baso # (Auto) Abs Immat Gran (auto) Absolute Neuts (auto) Absolute Nucleated RBC Nucleated RBC % (auto) Neutrophils % (Manual) Band Neutrophils % Lymphocytes % (Manual) Monocytes % (Manual) Eosinophils % (Manual) Metamyelocytes % Myelocytes % Promyelocytes % Abs Neuts (Manual) Lymphocytes # (Manual) Monocytes # (Manual) Eosinophils # (Manual) Metamyelocytes # Myelocytes # Promyelocytes # Smudge Cells Toxic Vacuolation Platelet Estimate Large Platelets Plt Morphology Comment RBC Morphology Polychromasia Hypochromasia Basophilic Stippling Microcytosis Macrocytosis Target Cells Tear Drop Cells Ovalocytes [place] Cells Acanthocytes (Spur) Smear Tech's Comments Smear Path Review PT 13.6 H INR 1.2 H APTT 23.6 L D-Dimer High Sensitivty 8385 O2 Saturation ABG pH at Pt Temp ABG pCO2 at Pt Temp ABG pO2 at Pt Temp ABG HCO3 ABG Base Excess (Actual) VBG pH VBG pCO2 VBG pO2 VBG HCO3 VBG O2 Saturation VBG Base Excess Sodium 140 Potassium 4.3 Chloride 101 Carbon Dioxide 28 Anion Gap 15 BUN 30 H Creatinine 0.69 Estim Creat Clear Calc 151.8 Estimated GFR > 60 POC Glucose Random Glucose 166 H Fasting Glucose Lactic Acid Lactic Acid F/U @ 2Hr Lactic Acid F/U @ 4Hr Calcium 9.2 Phosphorus 2.9 Magnesium 2.1 Ferritin 227 Total Bilirubin 0.4 Direct Bilirubin 0.2 AST 10 ALT 6 Alkaline Phosphatase 71 Lactate Dehydrogenase 316 H Total Creatine Kinase Troponin I High Sens C-Reactive Protein 8.38 H B-Natriuretic Peptide 55 Total Protein 6.1 L Albumin 3.2 L Procalcitonin TSH Urine Color Urine Appearance Urine pH Ur Specific [place] Urine Protein Urine Glucose (UA) Urine Ketones Urine Blood Urine Nitrite Ur Leukocyte Esterase Urine RBC Urine WBC Urine WBC Clumps Ur Squamous Epith Cells Ur Renal Epithelial Cell Uric Acid Crystals Amorphous Sediment Urine Bacteria Urine Mucus Stool Occult Blood Urine Opiates Screen Urine Fentanyl Screen Ur Barbiturates Screen Ur Phencyclidine Scrn Ur Amphetamines Screen U Benzodiazepines Scrn Urine Cocaine Screen U Marijuana (THC) Screen C. difficile Tox B Gene COVID-19 (KRISTOPHER) COVID-19 Clin Com Blood Type Antibody Screen Crossmatch 06/25/21 06/25/21 06/25/21 04:55 05:00 06:19 WBC 6.7 RBC 3.19 L Hgb 7.9 L Hct 26.3 L MCV 82.4 MCH 24.8 L MCHC 30.0 L RDW 17.3 H Plt Count 228 MPV 11.3 Immature Gran % (Auto) Cancelled Neut % (Auto) Cancelled Lymph % (Auto) Cancelled [place] % (Auto) Cancelled Eos % (Auto) Cancelled Baso % (Auto) Cancelled Lymph # (Auto) Cancelled [place] # (Auto) Cancelled Eos # (Auto) Cancelled Baso # (Auto) Cancelled Abs Immat Gran (auto) Cancelled Absolute Neuts (auto) Cancelled Absolute Nucleated RBC 0.050 H Nucleated RBC % (auto) 0.7 H Neutrophils % (Manual) 80 H Band Neutrophils % 3 Lymphocytes % (Manual) 7 L Monocytes % (Manual) 3 Eosinophils % (Manual) Metamyelocytes % 5 Myelocytes % 1 Promyelocytes % 1 Abs Neuts (Manual) 5.6 Lymphocytes # (Manual) 0.5 L Monocytes # (Manual) 0.2 Eosinophils # (Manual) Metamyelocytes # 0.3 Myelocytes # 0.1 Promyelocytes # 0.1 Smudge Cells Toxic Vacuolation Platelet Estimate NORMAL Large Platelets PRESENT Plt Morphology Comment NOTED RBC Morphology NOTED Polychromasia 1+ (0-2) Hypochromasia 1+ (5-14) Basophilic Stippling Microcytosis 1+ (5-14) Macrocytosis 1+ (5-14) Target Cells Tear Drop Cells Ovalocytes 1+ (5-14) [place] Cells 1+ (0-2) Acanthocytes (Spur) Smear Tech's Comments Smear Path Review PT INR APTT D-Dimer High Sensitivty O2 Saturation ABG pH at Pt Temp ABG pCO2 at Pt Temp ABG pO2 at Pt Temp ABG HCO3 ABG Base Excess (Actual) VBG pH 7.55 H VBG pCO2 33 VBG pO2 49 VBG HCO3 29 H VBG O2 Saturation 76.0 VBG Base Excess 6.8 Sodium Potassium Chloride Carbon Dioxide Anion Gap BUN Creatinine Estim Creat Clear Calc Estimated GFR POC Glucose 146 H Random Glucose Fasting Glucose Lactic Acid Lactic Acid F/U @ 2Hr Lactic Acid F/U @ 4Hr Calcium Phosphorus Magnesium Ferritin Total Bilirubin Direct Bilirubin AST ALT Alkaline Phosphatase Lactate Dehydrogenase Total Creatine Kinase Troponin I High Sens C-Reactive Protein B-Natriuretic Peptide Total Protein Albumin Procalcitonin TSH Urine Color Urine Appearance Urine pH Ur Specific [place] Urine Protein Urine Glucose (UA) Urine Ketones Urine Blood Urine Nitrite Ur Leukocyte Esterase Urine RBC Urine WBC Urine WBC Clumps Ur Squamous Epith Cells Ur Renal Epithelial Cell Uric Acid Crystals Amorphous Sediment Urine Bacteria Urine Mucus Stool Occult Blood Urine Opiates Screen Urine Fentanyl Screen Ur Barbiturates Screen Ur Phencyclidine Scrn Ur Amphetamines Screen U Benzodiazepines Scrn Urine Cocaine Screen U Marijuana (THC) Screen C. difficile Tox B Gene COVID-19 (KRISTOPHER) COVID-19 Clin Com Blood Type Antibody Screen Crossmatch 06/25/21 06/25/21 06/25/21 12:05 17:21 23:35 WBC RBC Hgb Hct MCV MCH MCHC RDW Plt Count MPV Immature Gran % (Auto) Neut % (Auto) Lymph % (Auto) [place] % (Auto) Eos % (Auto) Baso % (Auto) Lymph # (Auto) [place] # (Auto) Eos # (Auto) Baso # (Auto) Abs Immat Gran (auto) Absolute Neuts (auto) Absolute Nucleated RBC Nucleated RBC % (auto) Neutrophils % (Manual) Band Neutrophils % Lymphocytes % (Manual) Monocytes % (Manual) Eosinophils % (Manual) Metamyelocytes % Myelocytes % Promyelocytes % Abs Neuts (Manual) Lymphocytes # (Manual) Monocytes # (Manual) Eosinophils # (Manual) Metamyelocytes # Myelocytes # Promyelocytes # Smudge Cells Toxic Vacuolation Platelet Estimate Large Platelets Plt Morphology Comment RBC Morphology Polychromasia Hypochromasia Basophilic Stippling Microcytosis Macrocytosis Target Cells Tear Drop Cells Ovalocytes [place] Cells Acanthocytes (Spur) Smear Tech's Comments Smear Path Review PT INR APTT D-Dimer High Sensitivty O2 Saturation ABG pH at Pt Temp ABG pCO2 at Pt Temp ABG pO2 at Pt Temp ABG HCO3 ABG Base Excess (Actual) VBG pH VBG pCO2 VBG pO2 VBG HCO3 VBG O2 Saturation VBG Base Excess Sodium Potassium Chloride Carbon Dioxide Anion Gap BUN Creatinine Estim Creat Clear Calc Estimated GFR POC Glucose 345 H 292 H 193 H Random Glucose Fasting Glucose Lactic Acid Lactic Acid F/U @ 2Hr Lactic Acid F/U @ 4Hr Calcium Phosphorus Magnesium Ferritin Total Bilirubin Direct Bilirubin AST ALT Alkaline Phosphatase Lactate Dehydrogenase Total Creatine Kinase Troponin I High Sens C-Reactive Protein B-Natriuretic Peptide Total Protein Albumin Procalcitonin TSH Urine Color Urine Appearance Urine pH Ur Specific [place] Urine Protein Urine Glucose (UA) Urine Ketones Urine Blood Urine Nitrite Ur Leukocyte Esterase Urine RBC Urine WBC Urine WBC Clumps Ur Squamous Epith Cells Ur Renal Epithelial Cell Uric Acid Crystals Amorphous Sediment Urine Bacteria Urine Mucus Stool Occult Blood Urine Opiates Screen Urine Fentanyl Screen Ur Barbiturates Screen Ur Phencyclidine Scrn Ur Amphetamines Screen U Benzodiazepines Scrn Urine Cocaine Screen U Marijuana (THC) Screen C. difficile Tox B Gene COVID-19 (KRISTOPHER) COVID-19 Clin Com Blood Type Antibody Screen Crossmatch 06/26/21 06/26/21 06/26/21 05:45 05:53 05:53 WBC 7.5 RBC 3.12 L Hgb 7.7 L Hct 25.8 L MCV 82.7 MCH 24.7 L MCHC 29.8 L RDW 17.6 H Plt Count 246 MPV 10.0 Immature Gran % (Auto) Cancelled Neut % (Auto) Cancelled Lymph % (Auto) Cancelled [place] % (Auto) Cancelled Eos % (Auto) Cancelled Baso % (Auto) Cancelled Lymph # (Auto) Cancelled [place] # (Auto) Cancelled Eos # (Auto) Cancelled Baso # (Auto) Cancelled Abs Immat Gran (auto) Cancelled Absolute Neuts (auto) Cancelled Absolute Nucleated RBC 0.030 H Nucleated RBC % (auto) 0.4 H Neutrophils % (Manual) 80 H Band Neutrophils % 1 L Lymphocytes % (Manual) 9 L Monocytes % (Manual) 6 Eosinophils % (Manual) Metamyelocytes % Myelocytes % 3 Promyelocytes % 1 Abs Neuts (Manual) 6.1 Lymphocytes # (Manual) 0.7 L Monocytes # (Manual) 0.5 Eosinophils # (Manual) Metamyelocytes # Myelocytes # 0.2 Promyelocytes # 0.1 [place] Cells Toxic Vacuolation Platelet Estimate NORMAL Large Platelets Plt Morphology Comment NORMAL RBC Morphology NOTED Polychromasia 2+ (3-5) Hypochromasia Basophilic Stippling 1+ (0-2) Microcytosis 1+ (5-14) Macrocytosis Target Cells 1+ (5-14) Tear Drop Cells 1+ (0-2) Ovalocytes 1+ (5-14) [place] Cells Acanthocytes (Spur) Smear Tech's Comments Smear Path Review PT INR APTT D-Dimer High Sensitivty O2 Saturation ABG pH at Pt Temp ABG pCO2 at Pt Temp ABG pO2 at Pt Temp ABG HCO3 ABG Base Excess (Actual) VBG pH VBG pCO2 VBG pO2 VBG HCO3 VBG O2 Saturation VBG Base Excess Sodium 141 Potassium 3.6 Chloride 101 Carbon Dioxide 31 H Anion Gap 13 BUN 26 H Creatinine 0.72 Estim Creat Clear Calc 145.5 Estimated GFR > 60 POC Glucose 193 H Random Glucose 215 H Fasting Glucose Lactic Acid Lactic Acid F/U @ 2Hr Lactic Acid F/U @ 4Hr Calcium 9.4 Phosphorus 2.5 L Magnesium 2.0 Ferritin Total Bilirubin 0.7 Direct Bilirubin AST 20 D ALT 9 Alkaline Phosphatase 73 Lactate Dehydrogenase Total Creatine Kinase Troponin I High Sens C-Reactive Protein B-Natriuretic Peptide Total Protein 6.2 L Albumin 3.8 Procalcitonin TSH Urine Color Urine Appearance Urine pH Ur Specific [place] Urine Protein Urine Glucose (UA) Urine Ketones Urine Blood Urine Nitrite Ur Leukocyte Esterase Urine RBC Urine WBC Urine WBC Clumps Ur Squamous Epith Cells Ur Renal Epithelial Cell Uric Acid Crystals Amorphous Sediment Urine Bacteria Urine Mucus Stool Occult Blood Urine Opiates Screen Urine Fentanyl Screen Ur Barbiturates Screen Ur Phencyclidine Scrn Ur Amphetamines Screen U Benzodiazepines Scrn Urine Cocaine Screen U Marijuana (THC) Screen C. difficile Tox B Gene COVID-19 (KRISTOPHER) COVID-19 Clin Com Blood Type Antibody Screen Crossmatch 06/26/21 06/26/21 06/26/21 05:56 11:50 17:46 WBC RBC Hgb Hct MCV MCH MCHC RDW Plt Count MPV Immature Gran % (Auto) Neut % (Auto) Lymph % (Auto) [place] % (Auto) Eos % (Auto) Baso % (Auto) Lymph # (Auto) [place] # (Auto) Eos # (Auto) Baso # (Auto) Abs Immat Gran (auto) Absolute Neuts (auto) Absolute Nucleated RBC Nucleated RBC % (auto) Neutrophils % (Manual) Band Neutrophils % Lymphocytes % (Manual) Monocytes % (Manual) Eosinophils % (Manual) Metamyelocytes % Myelocytes % Promyelocytes % Abs Neuts (Manual) Lymphocytes # (Manual) Monocytes # (Manual) Eosinophils # (Manual) Metamyelocytes # Myelocytes # Promyelocytes # [place] Cells Toxic Vacuolation Platelet Estimate Large Platelets Plt Morphology Comment RBC Morphology Polychromasia Hypochromasia Basophilic Stippling Microcytosis Macrocytosis Target Cells Tear Drop Cells Ovalocytes [place] Cells Acanthocytes (Spur) Smear Tech's Comments Smear Path Review PT INR APTT D-Dimer High Sensitivty O2 Saturation ABG pH at Pt Temp ABG pCO2 at Pt Temp ABG pO2 at Pt Temp ABG HCO3 ABG Base Excess (Actual) VBG pH 7.52 H VBG pCO2 41 VBG pO2 58 VBG HCO3 34 H VBG O2 Saturation 86.0 VBG Base Excess 10.6 Sodium Potassium Chloride Carbon Dioxide Anion Gap BUN Creatinine Estim Creat Clear Calc Estimated GFR POC Glucose 369 H* 278 H Random Glucose Fasting Glucose Lactic Acid Lactic Acid F/U @ 2Hr Lactic Acid F/U @ 4Hr Calcium Phosphorus Magnesium Ferritin Total Bilirubin Direct Bilirubin AST ALT Alkaline Phosphatase Lactate Dehydrogenase Total Creatine Kinase Troponin I High Sens C-Reactive Protein B-Natriuretic Peptide Total Protein Albumin Procalcitonin TSH Urine Color Urine Appearance Urine pH Ur Specific [place] Urine Protein Urine Glucose (UA) Urine Ketones Urine Blood Urine Nitrite Ur Leukocyte Esterase Urine RBC Urine WBC Urine WBC Clumps Ur Squamous Epith Cells Ur Renal Epithelial Cell Uric Acid Crystals Amorphous Sediment Urine Bacteria Urine Mucus Stool Occult Blood Urine Opiates Screen Urine Fentanyl Screen Ur Barbiturates Screen Ur Phencyclidine Scrn Ur Amphetamines Screen U Benzodiazepines Scrn Urine Cocaine Screen U Marijuana (THC) Screen C. difficile Tox B Gene COVID-19 (KRISTOPHER) COVID-19 Clin Com Blood Type Antibody Screen Crossmatch 06/26/21 06/27/21 06/27/21 23:04 05:15 05:15 WBC 8.1 RBC 3.19 L Hgb 7.7 L Hct 26.6 L MCV 83.4 MCH 24.1 L MCHC 28.9 L RDW 17.3 H Plt Count 293 MPV 10.2 Immature Gran % (Auto) Cancelled Neut % (Auto) Cancelled Lymph % (Auto) Cancelled [place] % (Auto) Cancelled Eos % (Auto) Cancelled Baso % (Auto) Cancelled Lymph # (Auto) Cancelled [place] # (Auto) Cancelled Eos # (Auto) Cancelled Baso # (Auto) Cancelled Abs Immat Gran (auto) Cancelled Absolute Neuts (auto) Cancelled Absolute Nucleated RBC 0.000 Nucleated RBC % (auto) 0.0 Neutrophils % (Manual) 84 H Band Neutrophils % 2 L Lymphocytes % (Manual) 6 L Monocytes % (Manual) 3 Eosinophils % (Manual) 3 Metamyelocytes % Myelocytes % 1 Promyelocytes % 1 Abs Neuts (Manual) 7.0 Lymphocytes # (Manual) 0.5 L Monocytes # (Manual) 0.2 Eosinophils # (Manual) 0.2 Metamyelocytes # Myelocytes # 0.1 Promyelocytes # 0.1 [place] Cells PRESENT Toxic Vacuolation PRESENT Platelet Estimate NORMAL Large Platelets Plt Morphology Comment NORMAL RBC Morphology NOTED Polychromasia 1+ (0-2) Hypochromasia 1+ (5-14) Basophilic Stippling Microcytosis 2+ (15-30) Macrocytosis Target Cells Tear Drop Cells 2+ (3-5) Ovalocytes 1+ (5-14) [place] Cells Acanthocytes (Spur) 1+ (0-2) Smear Tech's Comments Smear Path Review PT INR APTT D-Dimer High Sensitivty O2 Saturation ABG pH at Pt Temp ABG pCO2 at Pt Temp ABG pO2 at Pt Temp ABG HCO3 ABG Base Excess (Actual) VBG pH VBG pCO2 VBG pO2 VBG HCO3 VBG O2 Saturation VBG Base Excess Sodium 141 Potassium 4.1 Chloride 103 Carbon Dioxide 30 H Anion Gap 12 BUN 24 H Creatinine 0.65 Estim Creat Clear Calc 161.2 Estimated GFR > 60 POC Glucose 253 H Random Glucose 239 H Fasting Glucose Lactic Acid Lactic Acid F/U @ 2Hr Lactic Acid F/U @ 4Hr Calcium 9.0 Phosphorus 3.1 Magnesium 2.1 Ferritin Total Bilirubin Direct Bilirubin AST ALT Alkaline Phosphatase Lactate Dehydrogenase Total Creatine Kinase Troponin I High Sens C-Reactive Protein B-Natriuretic Peptide Total Protein Albumin 3.3 L Procalcitonin TSH Urine Color Urine Appearance Urine pH Ur Specific [place] Urine Protein Urine Glucose (UA) Urine Ketones Urine Blood Urine Nitrite Ur Leukocyte Esterase Urine RBC Urine WBC Urine WBC Clumps Ur Squamous Epith Cells Ur Renal Epithelial Cell Uric Acid Crystals Amorphous Sediment Urine Bacteria Urine Mucus Stool Occult Blood Urine Opiates Screen Urine Fentanyl Screen Ur Barbiturates Screen Ur Phencyclidine Scrn Ur Amphetamines Screen U Benzodiazepines Scrn Urine Cocaine Screen U Marijuana (THC) Screen C. difficile Tox B Gene COVID-19 (KRISTOPHER) COVID-19 Clin Com Blood Type Antibody Screen Crossmatch 06/27/21 06/27/21 06/27/21 05:50 08:37 08:59 WBC RBC Hgb Hct MCV MCH MCHC RDW Plt Count MPV Immature Gran % (Auto) Neut % (Auto) Lymph % (Auto) [place] % (Auto) Eos % (Auto) Baso % (Auto) Lymph # (Auto) [place] # (Auto) Eos # (Auto) Baso # (Auto) Abs Immat Gran (auto) Absolute Neuts (auto) Absolute Nucleated RBC Nucleated RBC % (auto) Neutrophils % (Manual) Band Neutrophils % Lymphocytes % (Manual) Monocytes % (Manual) Eosinophils % (Manual) Metamyelocytes % Myelocytes % Promyelocytes % Abs Neuts (Manual) Lymphocytes # (Manual) Monocytes # (Manual) Eosinophils # (Manual) Metamyelocytes # Myelocytes # Promyelocytes # [place] Cells Toxic Vacuolation Platelet Estimate Large Platelets Plt Morphology Comment RBC Morphology Polychromasia Hypochromasia Basophilic Stippling Microcytosis Macrocytosis Target Cells Tear Drop Cells Ovalocytes [place] Cells Acanthocytes (Spur) Smear Tech's Comments Smear Path Review PT INR APTT D-Dimer High Sensitivty O2 Saturation ABG pH at Pt Temp ABG pCO2 at Pt Temp ABG pO2 at Pt Temp ABG HCO3 ABG Base Excess (Actual) VBG pH 7.45 H VBG pCO2 38 VBG pO2 51 VBG HCO3 27 H VBG O2 Saturation 77.0 VBG Base Excess 3.2 Sodium Potassium Chloride Carbon Dioxide Anion Gap BUN Creatinine Estim Creat Clear Calc Estimated GFR POC Glucose 193 H 200 H Random Glucose Fasting Glucose Lactic Acid Lactic Acid F/U @ 2Hr Lactic Acid F/U @ 4Hr Calcium Phosphorus Magnesium Ferritin Total Bilirubin Direct Bilirubin AST ALT Alkaline Phosphatase Lactate Dehydrogenase Total Creatine Kinase Troponin I High Sens C-Reactive Protein B-Natriuretic Peptide Total Protein Albumin Procalcitonin TSH Urine Color Urine Appearance Urine pH Ur Specific [place] Urine Protein Urine Glucose (UA) Urine Ketones Urine Blood Urine Nitrite Ur Leukocyte Esterase Urine RBC Urine WBC Urine WBC Clumps Ur Squamous Epith Cells Ur Renal Epithelial Cell Uric Acid Crystals Amorphous Sediment Urine Bacteria Urine Mucus Stool Occult Blood Urine Opiates Screen Urine Fentanyl Screen Ur Barbiturates Screen Ur Phencyclidine Scrn Ur Amphetamines Screen U Benzodiazepines Scrn Urine Cocaine Screen U Marijuana (THC) Screen C. difficile Tox B Gene COVID-19 (KRISTOPHER) COVID-19 Clin Com Blood Type Antibody Screen Crossmatch 06/27/21 06/27/21 06/27/21 11:40 17:10 23:47 WBC RBC Hgb Hct MCV MCH MCHC RDW Plt Count MPV Immature Gran % (Auto) Neut % (Auto) Lymph % (Auto) [place] % (Auto) Eos % (Auto) Baso % (Auto) Lymph # (Auto) [place] # (Auto) Eos # (Auto) Baso # (Auto) Abs Immat Gran (auto) Absolute Neuts (auto) Absolute Nucleated RBC Nucleated RBC % (auto) Neutrophils % (Manual) Band Neutrophils % Lymphocytes % (Manual) Monocytes % (Manual) Eosinophils % (Manual) Metamyelocytes % Myelocytes % Promyelocytes % Abs Neuts (Manual) Lymphocytes # (Manual) Monocytes # (Manual) Eosinophils # (Manual) Metamyelocytes # Myelocytes # Promyelocytes # [place] Cells Toxic Vacuolation Platelet Estimate Large Platelets Plt Morphology Comment RBC Morphology Polychromasia Hypochromasia Basophilic Stippling Microcytosis Macrocytosis Target Cells Tear Drop Cells Ovalocytes [place] Cells Acanthocytes (Sp[place]) Smear Tech's Comments Smear Path Review PT INR APTT D-Dimer High Sensitivty O2 Saturation ABG pH at Pt Temp ABG pCO2 at Pt Temp ABG pO2 at Pt Temp ABG HCO3 ABG Base Excess (Actual) VBG pH VBG pCO2 VBG pO2 VBG HCO3 VBG O2 Saturation VBG Base Excess Sodium Potassium Chloride Carbon Dioxide Anion Gap BUN Creatinine Estim Creat Clear Calc Estimated GFR POC Glucose 254 H 297 H 215 H Random Glucose Fasting Glucose Lactic Acid Lactic Acid F/U @ 2Hr Lactic Acid F/U @ 4Hr Calcium Phosphorus Magnesium Ferritin Total Bilirubin Direct Bilirubin AST ALT Alkaline Phosphatase Lactate Dehydrogenase Total Creatine Kinase Troponin I High Sens C-Reactive Protein B-Natriuretic Peptide Total Protein Albumin Procalcitonin TSH Urine Color Urine Appearance Urine pH Ur Specific [place] Urine Protein Urine Glucose (UA) Urine Ketones Urine Blood Urine Nitrite Ur Leukocyte Esterase Urine RBC Urine WBC Urine WBC Clumps Ur Squamous Epith Cells Ur Renal Epithelial Cell Uric Acid Crystals Amorphous Sediment Urine Bacteria Urine Mucus Stool Occult Blood Urine Opiates Screen Urine Fentanyl Screen Ur Barbiturates Screen Ur Phencyclidine Scrn Ur Amphetamines Screen U Benzodiazepines Scrn Urine Cocaine Screen U Marijuana (THC) Screen C. difficile Tox B Gene COVID-19 (KRISTOPHER) COVID-19 Clin Com Blood Type Antibody Screen Crossmatch 06/28/21 06/28/21 06/28/21 05:27 05:27 05:35 WBC 11.8 H RBC 3.25 L Hgb 7.9 L Hct 27.5 L MCV 84.6 MCH 24.3 L MCHC 28.7 L RDW 17.1 H Plt Count 377 D MPV 9.7 Immature Gran % (Auto) 4.1 H Neut % (Auto) 81.5 H Lymph % (Auto) 5.5 L [place] % (Auto) 7.6 Eos % (Auto) 1.2 Baso % (Auto) 0.1 Lymph # (Auto) 0.7 L [place] # (Auto) 0.9 Eos # (Auto) 0.1 Baso # (Auto) 0.0 Abs Immat Gran (auto) 0.48 H Absolute Neuts (auto) 9.6 H Absolute Nucleated RBC 0.000 Nucleated RBC % (auto) 0.0 Neutrophils % (Manual) Band Neutrophils % Lymphocytes % (Manual) Monocytes % (Manual) Eosinophils % (Manual) Metamyelocytes % Myelocytes % Promyelocytes % Abs Neuts (Manual) Lymphocytes # (Manual) Monocytes # (Manual) Eosinophils # (Manual) Metamyelocytes # Myelocytes # Promyelocytes # [place] Cells Toxic Vacuolation Platelet Estimate Large Platelets Plt Morphology Comment RBC Morphology Polychromasia Hypochromasia Basophilic Stippling Microcytosis Macrocytosis Target Cells Tear Drop Cells Ovalocytes [place] Cells Acanthocytes ([place]) Smear Tech's Comments Smear Path Review PT INR APTT D-Dimer High Sensitivty O2 Saturation ABG pH at Pt Temp ABG pCO2 at Pt Temp ABG pO2 at Pt Temp ABG HCO3 ABG Base Excess (Actual) VBG pH 7.42 VBG pCO2 54 VBG pO2 46 VBG HCO3 35 H VBG O2 Saturation 72.0 VBG Base Excess 10.3 Sodium 142 Potassium 4.7 Chloride 104 Carbon Dioxide 29 Anion Gap 14 BUN 25 H Creatinine 0.63 Estim Creat Clear Calc 166.3 Estimated GFR > 60 POC Glucose Random Glucose 151 H D Fasting Glucose Lactic Acid Lactic Acid F/U @ 2Hr Lactic Acid F/U @ 4Hr Calcium 9.1 Phosphorus 3.5 Magnesium 2.2 Ferritin Total Bilirubin Direct Bilirubin AST ALT Alkaline Phosphatase Lactate Dehydrogenase Total Creatine Kinase Troponin I High Sens C-Reactive Protein B-Natriuretic Peptide Total Protein Albumin 3.2 L Procalcitonin TSH Urine Color Urine Appearance Urine pH Ur Specific [place] Urine Protein Urine Glucose (UA) Urine Ketones Urine Blood Urine Nitrite Ur Leukocyte Esterase Urine RBC Urine WBC Urine WBC Clumps Ur Squamous Epith Cells Ur Renal Epithelial Cell Uric Acid Crystals Amorphous Sediment Urine Bacteria Urine Mucus Stool Occult Blood Urine Opiates Screen Urine Fentanyl Screen Ur Barbiturates Screen Ur Phencyclidine Scrn Ur Amphetamines Screen U Benzodiazepines Scrn Urine Cocaine Screen U Marijuana (THC) Screen C. difficile Tox B Gene COVID-19 (KRISTOPHER) COVID-19 Clin Com Blood Type Antibody Screen Crossmatch 06/28/21 06/28/21 06/28/21 05:49 11:51 17:58 WBC RBC Hgb Hct MCV MCH MCHC RDW Plt Count MPV Immature Gran % (Auto) Neut % (Auto) Lymph % (Auto) [place] % (Auto) Eos % (Auto) Baso % (Auto) Lymph # (Auto) [place] # (Auto) Eos # (Auto) Baso # (Auto) Abs Immat Gran (auto) Absolute Neuts (auto) Absolute Nucleated RBC Nucleated RBC % (auto) Neutrophils % (Manual) Band Neutrophils % Lymphocytes % (Manual) Monocytes % (Manual) Eosinophils % (Manual) Metamyelocytes % Myelocytes % Promyelocytes % Abs Neuts (Manual) Lymphocytes # (Manual) Monocytes # (Manual) Eosinophils # (Manual) Metamyelocytes # Myelocytes # Promyelocytes # [place] Cells Toxic Vacuolation Platelet Estimate Large Platelets Plt Morphology Comment RBC Morphology Polychromasia Hypochromasia Basophilic Stippling Microcytosis Macrocytosis Target Cells Tear Drop Cells Ovalocytes [place] Cells Acanthocytes ([place]) Smear Tech's Comments Smear Path Review PT INR APTT D-Dimer High Sensitivty O2 Saturation ABG pH at Pt Temp ABG pCO2 at Pt Temp ABG pO2 at Pt Temp ABG HCO3 ABG Base Excess (Actual) VBG pH VBG pCO2 VBG pO2 VBG HCO3 VBG O2 Saturation VBG Base Excess Sodium Potassium Chloride Carbon Dioxide Anion Gap BUN Creatinine Estim Creat Clear Calc Estimated GFR POC Glucose 165 H 187 H 226 H Random Glucose Fasting Glucose Lactic Acid Lactic Acid F/U @ 2Hr Lactic Acid F/U @ 4Hr Calcium Phosphorus Magnesium Ferritin Total Bilirubin Direct Bilirubin AST ALT Alkaline Phosphatase Lactate Dehydrogenase Total Creatine Kinase Troponin I High Sens C-Reactive Protein B-Natriuretic Peptide Total Protein Albumin Procalcitonin TSH Urine Color Urine Appearance Urine pH Ur Specific [place] Urine Protein Urine Glucose (UA) Urine Ketones Urine Blood Urine Nitrite Ur Leukocyte Esterase Urine RBC Urine WBC Urine WBC Clumps Ur Squamous Epith Cells Ur Renal Epithelial Cell Uric Acid Crystals Amorphous Sediment Urine Bacteria Urine Mucus Stool Occult Blood Urine Opiates Screen Urine Fentanyl Screen Ur Barbiturates Screen Ur Phencyclidine Scrn Ur Amphetamines Screen U Benzodiazepines Scrn Urine Cocaine Screen U Marijuana (THC) Screen C. difficile Tox B Gene COVID-19 (KRISTOPHER) COVID-19 Clin Com Blood Type Antibody Screen Crossmatch 06/28/21 06/29/21 06/29/21 23:40 05:12 05:12 WBC 10.9 H RBC 3.15 L Hgb 7.8 L Hct 26.8 L MCV 85.1 MCH 24.8 L MCHC 29.1 L RDW 16.7 H Plt Count 431 H MPV 10.0 Immature Gran % (Auto) 2.8 H Neut % (Auto) 80.5 H Lymph % (Auto) 7.7 L [place] % (Auto) 8.2 Eos % (Auto) 0.7 Baso % (Auto) 0.1 Lymph # (Auto) 0.8 L [place] # (Auto) 0.9 Eos # (Auto) 0.1 Baso # (Auto) 0.0 Abs Immat Gran (auto) 0.30 H Absolute Neuts (auto) 8.7 H Absolute Nucleated RBC 0.000 Nucleated RBC % (auto) 0.0 Neutrophils % (Manual) Band Neutrophils % Lymphocytes % (Manual) Monocytes % (Manual) Eosinophils % (Manual) Metamyelocytes % Myelocytes % Promyelocytes % Abs Neuts (Manual) Lymphocytes # (Manual) Monocytes # (Manual) Eosinophils # (Manual) Metamyelocytes # Myelocytes # Promyelocytes # [place] Cells Toxic Vacuolation Platelet Estimate Large Platelets Plt Morphology Comment RBC Morphology Polychromasia Hypochromasia Basophilic Stippling Microcytosis Macrocytosis Target Cells Tear Drop Cells Ovalocytes [place] Cells Acanthocytes (Spur) Smear Tech's Comments Smear Path Review PT INR APTT D-Dimer High Sensitivty O2 Saturation ABG pH at Pt Temp ABG pCO2 at Pt Temp ABG pO2 at Pt Temp ABG HCO3 ABG Base Excess (Actual) VBG pH VBG pCO2 VBG pO2 VBG HCO3 VBG O2 Saturation VBG Base Excess Sodium 143 Potassium 4.5 Chloride 102 Carbon Dioxide 32 H Anion Gap 14 BUN 27 H Creatinine 0.65 Estim Creat Clear Calc 155.8 Estimated GFR > 60 POC Glucose 124 H Random Glucose 123 H Fasting Glucose Lactic Acid Lactic Acid F/U @ 2Hr Lactic Acid F/U @ 4Hr Calcium 9.9 D Phosphorus 3.1 Magnesium 2.2 Ferritin Total Bilirubin Direct Bilirubin AST ALT Alkaline Phosphatase Lactate Dehydrogenase Total Creatine Kinase Troponin I High Sens C-Reactive Protein B-Natriuretic Peptide Total Protein Albumin 4.2 D Procalcitonin TSH Urine Color Urine Appearance Urine pH Ur Specific [place] Urine Protein Urine Glucose (UA) Urine Ketones Urine Blood Urine Nitrite Ur Leukocyte Esterase Urine RBC Urine WBC Urine WBC Clumps Ur Squamous Epith Cells Ur Renal Epithelial Cell Uric Acid Crystals Amorphous Sediment Urine Bacteria Urine Mucus Stool Occult Blood Urine Opiates Screen Urine Fentanyl Screen Ur Barbiturates Screen Ur Phencyclidine Scrn Ur Amphetamines Screen U Benzodiazepines Scrn Urine Cocaine Screen U Marijuana (THC) Screen C. difficile Tox B Gene COVID-19 (KRISTOPHER) COVID-19 Clin Com Blood Type Antibody Screen Crossmatch 06/29/21 06/29/21 06/29/21 05:17 05:36 12:22 WBC RBC Hgb Hct MCV MCH MCHC RDW Plt Count MPV Immature Gran % (Auto) Neut % (Auto) Lymph % (Auto) [place] % (Auto) Eos % (Auto) Baso % (Auto) Lymph # (Auto) [place] # (Auto) Eos # (Auto) Baso # (Auto) Abs Immat Gran (auto) Absolute Neuts (auto) Absolute Nucleated RBC Nucleated RBC % (auto) Neutrophils % (Manual) Band Neutrophils % Lymphocytes % (Manual) Monocytes % (Manual) Eosinophils % (Manual) Metamyelocytes % Myelocytes % Promyelocytes % Abs Neuts (Manual) Lymphocytes # (Manual) Monocytes # (Manual) Eosinophils # (Manual) Metamyelocytes # Myelocytes # Promyelocytes # Smudge Cells Toxic Vacuolation Platelet Estimate Large Platelets Plt Morphology Comment RBC Morphology Polychromasia Hypochromasia Basophilic Stippling Microcytosis Macrocytosis Target Cells Tear Drop Cells Ovalocytes [place] Cells Acanthocytes (Spur) Smear Tech's Comments Smear Path Review PT INR APTT D-Dimer High Sensitivty O2 Saturation ABG pH at Pt Temp ABG pCO2 at Pt Temp ABG pO2 at Pt Temp ABG HCO3 ABG Base Excess (Actual) VBG pH 7.42 VBG pCO2 59 VBG pO2 54 VBG HCO3 38 H VBG O2 Saturation 83.0 VBG Base Excess 12.4 Sodium Potassium Chloride Carbon Dioxide Anion Gap BUN Creatinine Estim Creat Clear Calc Estimated GFR POC Glucose 117 H 153 H Random Glucose Fasting Glucose Lactic Acid Lactic Acid F/U @ 2Hr Lactic Acid F/U @ 4Hr Calcium Phosphorus Magnesium Ferritin Total Bilirubin Direct Bilirubin AST ALT Alkaline Phosphatase Lactate Dehydrogenase Total Creatine Kinase Troponin I High Sens C-Reactive Protein B-Natriuretic Peptide Total Protein Albumin Procalcitonin TSH Urine Color Urine Appearance Urine pH Ur Specific [place] Urine Protein Urine Glucose (UA) Urine Ketones Urine Blood Urine Nitrite Ur Leukocyte Esterase Urine RBC Urine WBC Urine WBC Clumps Ur Squamous Epith Cells Ur Renal Epithelial Cell Uric Acid Crystals Amorphous Sediment Urine Bacteria Urine Mucus Stool Occult Blood Urine Opiates Screen Urine Fentanyl Screen Ur Barbiturates Screen Ur Phencyclidine Scrn Ur Amphetamines Screen U Benzodiazepines Scrn Urine Cocaine Screen U Marijuana (THC) Screen C. difficile Tox B Gene COVID-19 (KRISTOPHER) COVID-19 Clin Com Blood Type Antibody Screen Crossmatch 06/29/21 06/30/21 06/30/21 17:52 00:03 05:26 WBC 10.8 RBC 3.41 L Hgb 8.3 L Hct 29.4 L MCV 86.2 MCH 24.3 L MCHC 28.2 L RDW 16.4 H Plt Count 515 H MPV 9.5 Immature Gran % (Auto) 2.8 H Neut % (Auto) 80.6 H Lymph % (Auto) 9.0 L [place] % (Auto) 6.5 Eos % (Auto) 1.0 Baso % (Auto) 0.1 Lymph # (Auto) 1.0 L [place] # (Auto) 0.7 Eos # (Auto) 0.1 Baso # (Auto) 0.0 Abs Immat Gran (auto) 0.30 H Absolute Neuts (auto) 8.7 H Absolute Nucleated RBC 0.000 Nucleated RBC % (auto) 0.0 Neutrophils % (Manual) Band Neutrophils % Lymphocytes % (Manual) Monocytes % (Manual) Eosinophils % (Manual) Metamyelocytes % Myelocytes % Promyelocytes % Abs Neuts (Manual) Lymphocytes # (Manual) Monocytes # (Manual) Eosinophils # (Manual) Metamyelocytes # Myelocytes # Promyelocytes # Smudge Cells Toxic Vacuolation Platelet Estimate Large Platelets Plt Morphology Comment RBC Morphology Polychromasia Hypochromasia Basophilic Stippling Microcytosis Macrocytosis Target Cells Tear Drop Cells Ovalocytes [place] Cells Acanthocytes (Spur) Smear Tech's Comments Smear Path Review PT INR APTT D-Dimer High Sensitivty O2 Saturation ABG pH at Pt Temp ABG pCO2 at Pt Temp ABG pO2 at Pt Temp ABG HCO3 ABG Base Excess (Actual) VBG pH VBG pCO2 VBG pO2 VBG HCO3 VBG O2 Saturation VBG Base Excess Sodium Potassium Chloride Carbon Dioxide Anion Gap BUN Creatinine Estim Creat Clear Calc Estimated GFR POC Glucose 168 H 100 Random Glucose Fasting Glucose Lactic Acid Lactic Acid F/U @ 2Hr Lactic Acid F/U @ 4Hr Calcium Phosphorus Magnesium Ferritin Total Bilirubin Direct Bilirubin AST ALT Alkaline Phosphatase Lactate Dehydrogenase Total Creatine Kinase Troponin I High Sens C-Reactive Protein B-Natriuretic Peptide Total Protein Albumin Procalcitonin TSH Urine Color Urine Appearance Urine pH Ur Specific [place] Urine Protein Urine Glucose (UA) Urine Ketones Urine Blood Urine Nitrite Ur Leukocyte Esterase Urine RBC Urine WBC Urine WBC Clumps Ur Squamous Epith Cells Ur Renal Epithelial Cell Uric Acid Crystals Amorphous Sediment Urine Bacteria Urine Mucus Stool Occult Blood Urine Opiates Screen Urine Fentanyl Screen Ur Barbiturates Screen Ur Phencyclidine Scrn Ur Amphetamines Screen U Benzodiazepines Scrn Urine Cocaine Screen U Marijuana (THC) Screen C. difficile Tox B Gene COVID-19 (KRISTOPHER) COVID-19 Clin Com Blood Type Antibody Screen Crossmatch 06/30/21 06/30/21 06/30/21 05:26 05:31 05:57 WBC RBC Hgb Hct MCV MCH MCHC RDW Plt Count MPV Immature Gran % (Auto) Neut % (Auto) Lymph % (Auto) [place] % (Auto) Eos % (Auto) Baso % (Auto) Lymph # (Auto) [place] # (Auto) Eos # (Auto) Baso # (Auto) Abs Immat Gran (auto) Absolute Neuts (auto) Absolute Nucleated RBC Nucleated RBC % (auto) Neutrophils % (Manual) Band Neutrophils % Lymphocytes % (Manual) Monocytes % (Manual) Eosinophils % (Manual) Metamyelocytes % Myelocytes % Promyelocytes % Abs Neuts (Manual) Lymphocytes # (Manual) Monocytes # (Manual) Eosinophils # (Manual) Metamyelocytes # Myelocytes # Promyelocytes # Smudge Cells Toxic Vacuolation Platelet Estimate Large Platelets Plt Morphology Comment RBC Morphology Polychromasia Hypochromasia Basophilic Stippling Microcytosis Macrocytosis Target Cells Tear Drop Cells Ovalocytes [place] Cells Acanthocytes (Spur) Smear Tech's Comments Smear Path Review PT INR APTT D-Dimer High Sensitivty O2 Saturation ABG pH at Pt Temp ABG pCO2 at Pt Temp ABG pO2 at Pt Temp ABG HCO3 ABG Base Excess (Actual) VBG pH 7.40 VBG pCO2 62 VBG pO2 59 VBG HCO3 39 H VBG O2 Saturation 86.0 VBG Base Excess 12.5 Sodium 145 Potassium 4.4 Chloride 103 Carbon Dioxide 32 H Anion Gap 14 BUN 30 H Creatinine 0.58 Estim Creat Clear Calc 173.4 Estimated GFR > 60 POC Glucose 90 Random Glucose 89 Fasting Glucose Lactic Acid Lactic Acid F/U @ 2Hr Lactic Acid F/U @ 4Hr Calcium 10.1 Phosphorus 3.2 Magnesium 2.2 Ferritin Total Bilirubin Direct Bilirubin AST ALT Alkaline Phosphatase Lactate Dehydrogenase Total Creatine Kinase Troponin I High Sens C-Reactive Protein B-Natriuretic Peptide Total Protein Albumin 3.7 Procalcitonin TSH Urine Color Urine Appearance Urine pH Ur Specific [place] Urine Protein Urine Glucose (UA) Urine Ketones Urine Blood Urine Nitrite Ur Leukocyte Esterase Urine RBC Urine WBC Urine WBC Clumps Ur Squamous Epith Cells Ur Renal Epithelial Cell Uric Acid Crystals Amorphous Sediment Urine Bacteria Urine Mucus Stool Occult Blood Urine Opiates Screen Urine Fentanyl Screen Ur Barbiturates Screen Ur Phencyclidine Scrn Ur Amphetamines Screen U Benzodiazepines Scrn Urine Cocaine Screen U Marijuana (THC) Screen C. difficile Tox B Gene COVID-19 (KRISTOPHER) COVID-19 Clin Com Blood Type Antibody Screen Crossmatch 06/30/21 06/30/21 06/30/21 12:06 16:53 23:50 WBC RBC Hgb Hct MCV MCH MCHC RDW Plt Count MPV Immature Gran % (Auto) Neut % (Auto) Lymph % (Auto) [place] % (Auto) Eos % (Auto) Baso % (Auto) Lymph # (Auto) [place] # (Auto) Eos # (Auto) Baso # (Auto) Abs Immat Gran (auto) Absolute Neuts (auto) Absolute Nucleated RBC Nucleated RBC % (auto) Neutrophils % (Manual) Band Neutrophils % Lymphocytes % (Manual) Monocytes % (Manual) Eosinophils % (Manual) Metamyelocytes % Myelocytes % Promyelocytes % Abs Neuts (Manual) Lymphocytes # (Manual) Monocytes # (Manual) Eosinophils # (Manual) Metamyelocytes # Myelocytes # Promyelocytes # Smudge Cells Toxic Vacuolation Platelet Estimate Large Platelets Plt Morphology Comment RBC Morphology Polychromasia Hypochromasia Basophilic Stippling Microcytosis Macrocytosis Target Cells Tear Drop Cells Ovalocytes [place] Cells Acanthocytes (Spur) Smear Tech's Comments Smear Path Review PT INR APTT D-Dimer High Sensitivty O2 Saturation ABG pH at Pt Temp ABG pCO2 at Pt Temp ABG pO2 at Pt Temp ABG HCO3 ABG Base Excess (Actual) VBG pH VBG pCO2 VBG pO2 VBG HCO3 VBG O2 Saturation VBG Base Excess Sodium Potassium Chloride Carbon Dioxide Anion Gap BUN Creatinine Estim Creat Clear Calc Estimated GFR POC Glucose 115 122 H 119 H Random Glucose Fasting Glucose Lactic Acid Lactic Acid F/U @ 2Hr Lactic Acid F/U @ 4Hr Calcium Phosphorus Magnesium Ferritin Total Bilirubin Direct Bilirubin AST ALT Alkaline Phosphatase Lactate Dehydrogenase Total Creatine Kinase Troponin I High Sens C-Reactive Protein B-Natriuretic Peptide Total Protein Albumin Procalcitonin TSH Urine Color Urine Appearance Urine pH Ur Specific [place] Urine Protein Urine Glucose (UA) Urine Ketones Urine Blood Urine Nitrite Ur Leukocyte Esterase Urine RBC Urine WBC Urine WBC Clumps Ur Squamous Epith Cells Ur Renal Epithelial Cell Uric Acid Crystals Amorphous Sediment Urine Bacteria Urine Mucus Stool Occult Blood Urine Opiates Screen Urine Fentanyl Screen Ur Barbiturates Screen Ur Phencyclidine Scrn Ur Amphetamines Screen U Benzodiazepines Scrn Urine Cocaine Screen U Marijuana (THC) Screen C. difficile Tox B Gene COVID-19 (KRISTOPHER) COVID-19 Clin Com Blood Type Antibody Screen Crossmatch 07/01/21 07/01/21 07/01/21 05:30 05:30 05:30 WBC 14.5 H RBC 3.38 L Hgb 8.2 L Hct 28.6 L MCV 84.6 MCH 24.3 L MCHC 28.7 L RDW 16.6 H Plt Count 583 H MPV 9.6 Immature Gran % (Auto) 2.1 H Neut % (Auto) 85.3 H Lymph % (Auto) 6.7 L [place] % (Auto) 5.0 Eos % (Auto) 0.8 Baso % (Auto) 0.1 Lymph # (Auto) 1.0 L [place] # (Auto) 0.7 Eos # (Auto) 0.1 Baso # (Auto) 0.0 Abs Immat Gran (auto) 0.30 H Absolute Neuts (auto) 12.3 H Absolute Nucleated RBC 0.000 Nucleated RBC % (auto) 0.0 Neutrophils % (Manual) Band Neutrophils % Lymphocytes % (Manual) Monocytes % (Manual) Eosinophils % (Manual) Metamyelocytes % Myelocytes % Promyelocytes % Abs Neuts (Manual) Lymphocytes # (Manual) Monocytes # (Manual) Eosinophils # (Manual) Metamyelocytes # Myelocytes # Promyelocytes # Smudge Cells Toxic Vacuolation Platelet Estimate Large Platelets Plt Morphology Comment RBC Morphology Polychromasia Hypochromasia Basophilic Stippling Microcytosis Macrocytosis Target Cells Tear Drop Cells Ovalocytes [place] Cells Acanthocytes (Spur) Smear Tech's Comments Smear Path Review PT INR APTT D-Dimer High Sensitivty O2 Saturation ABG pH at Pt Temp ABG pCO2 at Pt Temp ABG pO2 at Pt Temp ABG HCO3 ABG Base Excess (Actual) VBG pH 7.50 H VBG pCO2 47 VBG pO2 44 VBG HCO3 37 H VBG O2 Saturation 72.0 VBG Base Excess 12.8 Sodium 146 H Potassium 3.7 Chloride 104 Carbon Dioxide 34 H Anion Gap 12 BUN 33 H Creatinine 0.61 Estim Creat Clear Calc 162.8 Estimated GFR > 60 POC Glucose Random Glucose 128 H D Fasting Glucose Lactic Acid Lactic Acid F/U @ 2Hr Lactic Acid F/U @ 4Hr Calcium 9.6 Phosphorus 2.3 L Magnesium 2.0 Ferritin Total Bilirubin Direct Bilirubin AST ALT Alkaline Phosphatase Lactate Dehydrogenase Total Creatine Kinase Troponin I High Sens C-Reactive Protein B-Natriuretic Peptide Total Protein Albumin 3.2 L Procalcitonin TSH Urine Color Urine Appearance Urine pH Ur Specific [place] Urine Protein Urine Glucose (UA) Urine Ketones Urine Blood Urine Nitrite Ur Leukocyte Esterase Urine RBC Urine WBC Urine WBC Clumps Ur Squamous Epith Cells Ur Renal Epithelial Cell Uric Acid Crystals Amorphous Sediment Urine Bacteria Urine Mucus Stool Occult Blood Urine Opiates Screen Urine Fentanyl Screen Ur Barbiturates Screen Ur Phencyclidine Scrn Ur Amphetamines Screen U Benzodiazepines Scrn Urine Cocaine Screen U Marijuana (THC) Screen C. difficile Tox B Gene COVID-19 (KRISTOPHER) COVID-19 Clin Com Blood Type Antibody Screen Crossmatch 07/01/21 07/01/21 07/01/21 06:21 11:11 17:51 WBC RBC Hgb Hct MCV MCH MCHC RDW Plt Count MPV Immature Gran % (Auto) Neut % (Auto) Lymph % (Auto) [place] % (Auto) Eos % (Auto) Baso % (Auto) Lymph # (Auto) [place] # (Auto) Eos # (Auto) Baso # (Auto) Abs Immat Gran (auto) Absolute Neuts (auto) Absolute Nucleated RBC Nucleated RBC % (auto) Neutrophils % (Manual) Band Neutrophils % Lymphocytes % (Manual) Monocytes % (Manual) Eosinophils % (Manual) Metamyelocytes % Myelocytes % Promyelocytes % Abs Neuts (Manual) Lymphocytes # (Manual) Monocytes # (Manual) Eosinophils # (Manual) Metamyelocytes # Myelocytes # Promyelocytes # [place] Cells Toxic Vacuolation Platelet Estimate Large Platelets Plt Morphology Comment RBC Morphology Polychromasia Hypochromasia Basophilic Stippling Microcytosis Macrocytosis Target Cells Tear Drop Cells Ovalocytes [place] Cells Acanthocytes (Spur) Smear Tech's Comments Smear Path Review PT INR APTT D-Dimer High Sensitivty O2 Saturation ABG pH at Pt Temp ABG pCO2 at Pt Temp ABG pO2 at Pt Temp ABG HCO3 ABG Base Excess (Actual) VBG pH VBG pCO2 VBG pO2 VBG HCO3 VBG O2 Saturation VBG Base Excess Sodium Potassium Chloride Carbon Dioxide Anion Gap BUN Creatinine Estim Creat Clear Calc Estimated GFR POC Glucose 141 H 231 H 266 H Random Glucose Fasting Glucose Lactic Acid Lactic Acid F/U @ 2Hr Lactic Acid F/U @ 4Hr Calcium Phosphorus Magnesium Ferritin Total Bilirubin Direct Bilirubin AST ALT Alkaline Phosphatase Lactate Dehydrogenase Total Creatine Kinase Troponin I High Sens C-Reactive Protein B-Natriuretic Peptide Total Protein Albumin Procalcitonin TSH Urine Color Urine Appearance Urine pH Ur Specific [place] Urine Protein Urine Glucose (UA) Urine Ketones Urine Blood Urine Nitrite Ur Leukocyte Esterase Urine RBC Urine WBC Urine WBC Clumps Ur Squamous Epith Cells Ur Renal Epithelial Cell Uric Acid Crystals Amorphous Sediment Urine Bacteria Urine Mucus Stool Occult Blood Urine Opiates Screen Urine Fentanyl Screen Ur Barbiturates Screen Ur Phencyclidine Scrn Ur Amphetamines Screen U Benzodiazepines Scrn Urine Cocaine Screen U Marijuana (THC) Screen C. difficile Tox B Gene COVID-19 (KRISTOPHER) COVID-19 Clin Com Blood Type Antibody Screen Crossmatch 07/01/21 07/02/21 07/02/21 23:47 04:12 04:12 WBC 11.6 H RBC 2.86 L Hgb 7.2 L Hct 24.4 L MCV 85.3 MCH 25.2 L MCHC 29.5 L RDW 17.1 H Plt Count 444 H MPV 9.2 L Immature Gran % (Auto) 1.7 H Neut % (Auto) 82.7 H Lymph % (Auto) 9.2 L [place] % (Auto) 5.3 Eos % (Auto) 1.0 Baso % (Auto) 0.1 Lymph # (Auto) 1.1 L [place] # (Auto) 0.6 Eos # (Auto) 0.1 Baso # (Auto) 0.0 Abs Immat Gran (auto) 0.20 H Absolute Neuts (auto) 9.6 H Absolute Nucleated RBC 0.020 H Nucleated RBC % (auto) 0.2 Neutrophils % (Manual) Band Neutrophils % Lymphocytes % (Manual) Monocytes % (Manual) Eosinophils % (Manual) Metamyelocytes % Myelocytes % Promyelocytes % Abs Neuts (Manual) Lymphocytes # (Manual) Monocytes # (Manual) Eosinophils # (Manual) Metamyelocytes # Myelocytes # Promyelocytes # [place] Cells Toxic Vacuolation Platelet Estimate Large Platelets Plt Morphology Comment RBC Morphology Polychromasia Hypochromasia Basophilic Stippling Microcytosis Macrocytosis Target Cells Tear Drop Cells Ovalocytes [place] Cells Acanthocytes (Spur) Smear Tech's Comments Smear Path Review PT INR APTT D-Dimer High Sensitivty O2 Saturation ABG pH at Pt Temp ABG pCO2 at Pt Temp ABG pO2 at Pt Temp ABG HCO3 ABG Base Excess (Actual) VBG pH VBG pCO2 VBG pO2 VBG HCO3 VBG O2 Saturation VBG Base Excess Sodium 146 H Potassium 3.6 Chloride 106 Carbon Dioxide 32 H Anion Gap 12 BUN 24 H Creatinine 0.60 Estim Creat Clear Calc 165.5 Estimated GFR > 60 POC Glucose 81 Random Glucose 132 H Fasting Glucose Lactic Acid Lactic Acid F/U @ 2Hr Lactic Acid F/U @ 4Hr Calcium 9.6 Phosphorus 3.4 Magnesium 1.9 Ferritin Total Bilirubin Direct Bilirubin AST ALT Alkaline Phosphatase Lactate Dehydrogenase Total Creatine Kinase Troponin I High Sens C-Reactive Protein B-Natriuretic Peptide Total Protein Albumin 3.8 Procalcitonin TSH Urine Color Urine Appearance Urine pH Ur Specific [place] Urine Protein Urine Glucose (UA) Urine Ketones Urine Blood Urine Nitrite Ur Leukocyte Esterase Urine RBC Urine WBC Urine WBC Clumps Ur Squamous Epith Cells Ur Renal Epithelial Cell Uric Acid Crystals Amorphous Sediment Urine Bacteria Urine Mucus Stool Occult Blood Urine Opiates Screen Urine Fentanyl Screen Ur Barbiturates Screen Ur Phencyclidine Scrn Ur Amphetamines Screen U Benzodiazepines Scrn Urine Cocaine Screen U Marijuana (THC) Screen C. difficile Tox B Gene COVID-19 (KRISTOPHER) COVID-19 Clin Com Blood Type Antibody Screen Crossmatch 07/02/21 07/02/21 07/02/21 04:17 05:45 11:07 WBC RBC Hgb Hct MCV MCH MCHC RDW Plt Count MPV Immature Gran % (Auto) Neut % (Auto) Lymph % (Auto) [place] % (Auto) Eos % (Auto) Baso % (Auto) Lymph # (Auto) [place] # (Auto) Eos # (Auto) Baso # (Auto) Abs Immat Gran (auto) Absolute Neuts (auto) Absolute Nucleated RBC Nucleated RBC % (auto) Neutrophils % (Manual) Band Neutrophils % Lymphocytes % (Manual) Monocytes % (Manual) Eosinophils % (Manual) Metamyelocytes % Myelocytes % Promyelocytes % Abs Neuts (Manual) Lymphocytes # (Manual) Monocytes # (Manual) Eosinophils # (Manual) Metamyelocytes # Myelocytes # Promyelocytes # [place] Cells Toxic Vacuolation Platelet Estimate Large Platelets Plt Morphology Comment RBC Morphology Polychromasia Hypochromasia Basophilic Stippling Microcytosis Macrocytosis Target Cells Tear Drop Cells Ovalocytes [place] Cells Acanthocytes (Spur) Smear Tech's Comments Smear Path Review PT INR APTT D-Dimer High Sensitivty O2 Saturation ABG pH at Pt Temp ABG pCO2 at Pt Temp ABG pO2 at Pt Temp ABG HCO3 ABG Base Excess (Actual) VBG pH 7.52 H VBG pCO2 44 VBG pO2 50 VBG HCO3 36 H VBG O2 Saturation 80.0 VBG Base Excess 12.5 Sodium Potassium Chloride Carbon Dioxide Anion Gap BUN Creatinine Estim Creat Clear Calc Estimated GFR POC Glucose 163 H 226 H Random Glucose Fasting Glucose Lactic Acid Lactic Acid F/U @ 2Hr Lactic Acid F/U @ 4Hr Calcium Phosphorus Magnesium Ferritin Total Bilirubin Direct Bilirubin AST ALT Alkaline Phosphatase Lactate Dehydrogenase Total Creatine Kinase Troponin I High Sens C-Reactive Protein B-Natriuretic Peptide Total Protein Albumin Procalcitonin TSH Urine Color Urine Appearance Urine pH Ur Specific [place] Urine Protein Urine Glucose (UA) Urine Ketones Urine Blood Urine Nitrite Ur Leukocyte Esterase Urine RBC Urine WBC Urine WBC Clumps Ur Squamous Epith Cells Ur Renal Epithelial Cell Uric Acid Crystals Amorphous Sediment Urine Bacteria Urine Mucus Stool Occult Blood Urine Opiates Screen Urine Fentanyl Screen Ur Barbiturates Screen Ur Phencyclidine Scrn Ur Amphetamines Screen U Benzodiazepines Scrn Urine Cocaine Screen U Marijuana (THC) Screen C. difficile Tox B Gene COVID-19 (KRISTOPHER) COVID-19 Clin Com Blood Type Antibody Screen Crossmatch 07/02/21 07/02/21 07/03/21 11:44 17:43 00:31 WBC RBC Hgb Hct MCV MCH MCHC RDW Plt Count MPV Immature Gran % (Auto) Neut % (Auto) Lymph % (Auto) [place] % (Auto) Eos % (Auto) Baso % (Auto) Lymph # (Auto) [place] # (Auto) Eos # (Auto) Baso # (Auto) Abs Immat Gran (auto) Absolute Neuts (auto) Absolute Nucleated RBC Nucleated RBC % (auto) Neutrophils % (Manual) Band Neutrophils % Lymphocytes % (Manual) Monocytes % (Manual) Eosinophils % (Manual) Metamyelocytes % Myelocytes % Promyelocytes % Abs Neuts (Manual) Lymphocytes # (Manual) Monocytes # (Manual) Eosinophils # (Manual) Metamyelocytes # Myelocytes # Promyelocytes # Smudge Cells Toxic Vacuolation Platelet Estimate Large Platelets Plt Morphology Comment RBC Morphology Polychromasia Hypochromasia Basophilic Stippling Microcytosis Macrocytosis Target Cells Tear Drop Cells Ovalocytes [place] Cells Acanthocytes (Spur) Smear Tech's Comments Smear Path Review PT INR APTT D-Dimer High Sensitivty O2 Saturation ABG pH at Pt Temp ABG pCO2 at Pt Temp ABG pO2 at Pt Temp ABG HCO3 ABG Base Excess (Actual) VBG pH VBG pCO2 VBG pO2 VBG HCO3 VBG O2 Saturation VBG Base Excess Sodium Potassium Chloride Carbon Dioxide Anion Gap BUN Creatinine Estim Creat Clear Calc Estimated GFR POC Glucose 259 H 345 H 290 H Random Glucose Fasting Glucose Lactic Acid Lactic Acid F/U @ 2Hr Lactic Acid F/U @ 4Hr Calcium Phosphorus Magnesium Ferritin Total Bilirubin Direct Bilirubin AST ALT Alkaline Phosphatase Lactate Dehydrogenase Total Creatine Kinase Troponin I High Sens C-Reactive Protein B-Natriuretic Peptide Total Protein Albumin Procalcitonin TSH Urine Color Urine Appearance Urine pH Ur Specific [place] Urine Protein Urine Glucose (UA) Urine Ketones Urine Blood Urine Nitrite Ur Leukocyte Esterase Urine RBC Urine WBC Urine WBC Clumps Ur Squamous Epith Cells Ur Renal Epithelial Cell Uric Acid Crystals Amorphous Sediment Urine Bacteria Urine Mucus Stool Occult Blood Urine Opiates Screen Urine Fentanyl Screen Ur Barbiturates Screen Ur Phencyclidine Scrn Ur Amphetamines Screen U Benzodiazepines Scrn Urine Cocaine Screen U Marijuana (THC) Screen C. difficile Tox B Gene COVID-19 (KRISTOPHER) COVID-19 Clin Com Blood Type Antibody Screen Crossmatch 07/03/21 07/03/21 07/03/21 05:10 05:13 05:13 WBC 8.8 RBC 2.77 L Hgb 6.8 L* Hct 23.8 L MCV 85.9 MCH 24.5 L MCHC 28.6 L RDW 16.4 H Plt Count 445 H MPV 9.8 Immature Gran % (Auto) Neut % (Auto) Lymph % (Auto) [place] % (Auto) Eos % (Auto) Baso % (Auto) Lymph # (Auto) [place] # (Auto) Eos # (Auto) Baso # (Auto) Abs Immat Gran (auto) Absolute Neuts (auto) Absolute Nucleated RBC 0.000 Nucleated RBC % (auto) 0.0 Neutrophils % (Manual) Band Neutrophils % Lymphocytes % (Manual) Monocytes % (Manual) Eosinophils % (Manual) Metamyelocytes % Myelocytes % Promyelocytes % Abs Neuts (Manual) Lymphocytes # (Manual) Monocytes # (Manual) Eosinophils # (Manual) Metamyelocytes # Myelocytes # Promyelocytes # Smudge Cells Toxic Vacuolation Platelet Estimate Large Platelets Plt Morphology Comment RBC Morphology Polychromasia Hypochromasia Basophilic Stippling Microcytosis Macrocytosis Target Cells Tear Drop Cells Ovalocytes [place] Cells Acanthocytes (Spur) Smear Tech's Comments Smear Path Review SEE NOTE PT INR APTT D-Dimer High Sensitivty 2576 O2 Saturation ABG pH at Pt Temp ABG pCO2 at Pt Temp ABG pO2 at Pt Temp ABG HCO3 ABG Base Excess (Actual) VBG pH VBG pCO2 VBG pO2 VBG HCO3 VBG O2 Saturation VBG Base Excess Sodium Potassium Chloride Carbon Dioxide Anion Gap BUN Creatinine Estim Creat Clear Calc Estimated GFR POC Glucose Random Glucose Fasting Glucose Lactic Acid Lactic Acid F/U @ 2Hr Lactic Acid F/U @ 4Hr Calcium Phosphorus Magnesium Ferritin Total Bilirubin Direct Bilirubin AST ALT Alkaline Phosphatase Lactate Dehydrogenase Total Creatine Kinase Troponin I High Sens C-Reactive Protein B-Natriuretic Peptide Total Protein Albumin Procalcitonin TSH Urine Color Urine Appearance Urine pH Ur Specific [place] Urine Protein Urine Glucose (UA) Urine Ketones Urine Blood Urine Nitrite Ur Leukocyte Esterase Urine RBC Urine WBC Urine WBC Clumps Ur Squamous Epith Cells Ur Renal Epithelial Cell Uric Acid Crystals Amorphous Sediment Urine Bacteria Urine Mucus Stool Occult Blood NEGATIVE Urine Opiates Screen Urine Fentanyl Screen Ur Barbiturates Screen Ur Phencyclidine Scrn Ur Amphetamines Screen U Benzodiazepines Scrn Urine Cocaine Screen U Marijuana (THC) Screen C. difficile Tox B Gene COVID-19 (KRISTOPHER) COVID-19 Clin Com Blood Type Antibody Screen Crossmatch 07/03/21 07/03/21 07/03/21 05:13 05:13 05:13 WBC RBC Hgb Hct MCV MCH MCHC RDW Plt Count MPV Immature Gran % (Auto) Neut % (Auto) Lymph % (Auto) [place] % (Auto) Eos % (Auto) Baso % (Auto) Lymph # (Auto) [place] # (Auto) Eos # (Auto) Baso # (Auto) Abs Immat Gran (auto) Absolute Neuts (auto) Absolute Nucleated RBC Nucleated RBC % (auto) Neutrophils % (Manual) Band Neutrophils % Lymphocytes % (Manual) Monocytes % (Manual) Eosinophils % (Manual) Metamyelocytes % Myelocytes % Promyelocytes % Abs Neuts (Manual) Lymphocytes # (Manual) Monocytes # (Manual) Eosinophils # (Manual) Metamyelocytes # Myelocytes # Promyelocytes # Smudge Cells Toxic Vacuolation Platelet Estimate Large Platelets Plt Morphology Comment RBC Morphology Polychromasia Hypochromasia Basophilic Stippling Microcytosis Macrocytosis Target Cells Tear Drop Cells Ovalocytes [place] Cells Acanthocytes (Spur) Smear Tech's Comments Smear Path Review PT INR APTT D-Dimer High Sensitivty O2 Saturation ABG pH at Pt Temp ABG pCO2 at Pt Temp ABG pO2 at Pt Temp ABG HCO3 ABG Base Excess (Actual) VBG pH VBG pCO2 VBG pO2 VBG HCO3 VBG O2 Saturation VBG Base Excess Sodium 144 Potassium 4.8 D Chloride 105 Carbon Dioxide 34 H Anion Gap 10 L BUN 30 H Creatinine 0.68 Estim Creat Clear Calc 147.7 Estimated GFR > 60 POC Glucose Random Glucose 277 H D Fasting Glucose Lactic Acid Lactic Acid F/U @ 2Hr Lactic Acid F/U @ 4Hr Calcium 9.4 Phosphorus 3.8 Magnesium 2.2 Ferritin 251 H Total Bilirubin 0.3 Direct Bilirubin AST 10 D ALT 14 Alkaline Phosphatase 71 Lactate Dehydrogenase 233 Total Creatine Kinase Troponin I High Sens C-Reactive Protein 14.92 H B-Natriuretic Peptide Total Protein 6.0 L Albumin 3.4 L Procalcitonin 0.15 TSH Urine Color Urine Appearance Urine pH Ur Specific [place] Urine Protein Urine Glucose (UA) Urine Ketones Urine Blood Urine Nitrite Ur Leukocyte Esterase Urine RBC Urine WBC Urine WBC Clumps Ur Squamous Epith Cells Ur Renal Epithelial Cell Uric Acid Crystals Amorphous Sediment Urine Bacteria Urine Mucus Stool Occult Blood Urine Opiates Screen Urine Fentanyl Screen Ur Barbiturates Screen Ur Phencyclidine Scrn Ur Amphetamines Screen U Benzodiazepines Scrn Urine Cocaine Screen U Marijuana (THC) Screen C. difficile Tox B Gene COVID-19 (KRISTOPHER) COVID-19 Clin Com Blood Type O Positive Antibody Screen NEGATIVE Crossmatch See Detail 07/03/21 07/03/21 07/03/21 05:17 17:20 19:23 WBC RBC Hgb Hct MCV MCH MCHC RDW Plt Count MPV Immature Gran % (Auto) Neut % (Auto) Lymph % (Auto) [place] % (Auto) Eos % (Auto) Baso % (Auto) Lymph # (Auto) [place] # (Auto) Eos # (Auto) Baso # (Auto) Abs Immat Gran (auto) Absolute Neuts (auto) Absolute Nucleated RBC Nucleated RBC % (auto) Neutrophils % (Manual) Band Neutrophils % Lymphocytes % (Manual) Monocytes % (Manual) Eosinophils % (Manual) Metamyelocytes % Myelocytes % Promyelocytes % Abs Neuts (Manual) Lymphocytes # (Manual) Monocytes # (Manual) Eosinophils # (Manual) Metamyelocytes # Myelocytes # Promyelocytes # Smudge Cells Toxic Vacuolation Platelet Estimate Large Platelets Plt Morphology Comment RBC Morphology Polychromasia Hypochromasia Basophilic Stippling Microcytosis Macrocytosis Target Cells Tear Drop Cells Ovalocytes [place] Cells Acanthocytes (Spur) Smear Tech's Comments Smear Path Review PT INR APTT D-Dimer High Sensitivty O2 Saturation ABG pH at Pt Temp ABG pCO2 at Pt Temp ABG pO2 at Pt Temp ABG HCO3 ABG Base Excess (Actual) VBG pH 7.40 VBG pCO2 62 VBG pO2 49 VBG HCO3 39 H VBG O2 Saturation 76.0 VBG Base Excess 12.7 Sodium Potassium Chloride Carbon Dioxide Anion Gap BUN Creatinine Estim Creat Clear Calc Estimated GFR POC Glucose 329 H 308 H Random Glucose Fasting Glucose Lactic Acid Lactic Acid F/U @ 2Hr Lactic Acid F/U @ 4Hr Calcium Phosphorus Magnesium Ferritin Total Bilirubin Direct Bilirubin AST ALT Alkaline Phosphatase Lactate Dehydrogenase Total Creatine Kinase Troponin I High Sens C-Reactive Protein B-Natriuretic Peptide Total Protein Albumin Procalcitonin TSH Urine Color Urine Appearance Urine pH Ur Specific [place] Urine Protein Urine Glucose (UA) Urine Ketones Urine Blood Urine Nitrite Ur Leukocyte Esterase Urine RBC Urine WBC Urine WBC Clumps Ur Squamous Epith Cells Ur Renal Epithelial Cell Uric Acid Crystals Amorphous Sediment Urine Bacteria Urine Mucus Stool Occult Blood Urine Opiates Screen Urine Fentanyl Screen Ur Barbiturates Screen Ur Phencyclidine Scrn Ur Amphetamines Screen U Benzodiazepines Scrn Urine Cocaine Screen U Marijuana (THC) Screen C. difficile Tox B Gene COVID-19 (KRISTOPHER) COVID-19 Clin Com Blood Type Antibody Screen Crossmatch 07/03/21 07/03/21 07/04/21 21:47 23:33 05:00 WBC 9.2 RBC 3.17 L Hgb 7.9 L Hct 27.3 L MCV 86.1 MCH 24.9 L MCHC 28.9 L RDW 16.0 Plt Count 462 H MPV 9.8 Immature Gran % (Auto) Neut % (Auto) Lymph % (Auto) [place] % (Auto) Eos % (Auto) Baso % (Auto) Lymph # (Auto) [place] # (Auto) Eos # (Auto) Baso # (Auto) Abs Immat Gran (auto) Absolute Neuts (auto) Absolute Nucleated RBC 0.000 Nucleated RBC % (auto) 0.0 Neutrophils % (Manual) Band Neutrophils % Lymphocytes % (Manual) Monocytes % (Manual) Eosinophils % (Manual) Metamyelocytes % Myelocytes % Promyelocytes % Abs Neuts (Manual) Lymphocytes # (Manual) Monocytes # (Manual) Eosinophils # (Manual) Metamyelocytes # Myelocytes # Promyelocytes # Smudge Cells Toxic Vacuolation Platelet Estimate Large Platelets Plt Morphology Comment RBC Morphology Polychromasia Hypochromasia Basophilic Stippling Microcytosis Macrocytosis Target Cells Tear Drop Cells Ovalocytes [place] Cells Acanthocytes (Spur) Smear Tech's Comments Smear Path Review PT INR APTT D-Dimer High Sensitivty O2 Saturation ABG pH at Pt Temp ABG pCO2 at Pt Temp ABG pO2 at Pt Temp ABG HCO3 ABG Base Excess (Actual) VBG pH VBG pCO2 VBG pO2 VBG HCO3 VBG O2 Saturation VBG Base Excess Sodium Potassium Chloride Carbon Dioxide Anion Gap BUN Creatinine Estim Creat Clear Calc Estimated GFR POC Glucose 218 H 156 H Random Glucose Fasting Glucose Lactic Acid Lactic Acid F/U @ 2Hr Lactic Acid F/U @ 4Hr Calcium Phosphorus Magnesium Ferritin Total Bilirubin Direct Bilirubin AST ALT Alkaline Phosphatase Lactate Dehydrogenase Total Creatine Kinase Troponin I High Sens C-Reactive Protein B-Natriuretic Peptide Total Protein Albumin Procalcitonin TSH Urine Color Urine Appearance Urine pH Ur Specific [place] Urine Protein Urine Glucose (UA) Urine Ketones Urine Blood Urine Nitrite Ur Leukocyte Esterase Urine RBC Urine WBC Urine WBC Clumps Ur Squamous Epith Cells Ur Renal Epithelial Cell Uric Acid Crystals Amorphous Sediment Urine Bacteria Urine Mucus Stool Occult Blood Urine Opiates Screen Urine Fentanyl Screen Ur Barbiturates Screen Ur Phencyclidine Scrn Ur Amphetamines Screen U Benzodiazepines Scrn Urine Cocaine Screen U Marijuana (THC) Screen C. difficile Tox B Gene COVID-19 (KRISTOPHER) COVID-19 Clin Com Blood Type Antibody Screen Crossmatch 07/04/21 07/04/21 07/04/21 05:30 05:35 05:36 WBC RBC Hgb Hct MCV MCH MCHC RDW Plt Count MPV Immature Gran % (Auto) Neut % (Auto) Lymph % (Auto) [place] % (Auto) Eos % (Auto) Baso % (Auto) Lymph # (Auto) [place] # (Auto) Eos # (Auto) Baso # (Auto) Abs Immat Gran (auto) Absolute Neuts (auto) Absolute Nucleated RBC Nucleated RBC % (auto) Neutrophils % (Manual) Band Neutrophils % Lymphocytes % (Manual) Monocytes % (Manual) Eosinophils % (Manual) Metamyelocytes % Myelocytes % Promyelocytes % Abs Neuts (Manual) Lymphocytes # (Manual) Monocytes # (Manual) Eosinophils # (Manual) Metamyelocytes # Myelocytes # Promyelocytes # Smudge Cells Toxic Vacuolation Platelet Estimate Large Platelets Plt Morphology Comment RBC Morphology Polychromasia Hypochromasia Basophilic Stippling Microcytosis Macrocytosis Target Cells Tear Drop Cells Ovalocytes [place] Cells Acanthocytes (Spur) Smear Tech's Comments Smear Path Review PT INR APTT D-Dimer High Sensitivty O2 Saturation ABG pH at Pt Temp ABG pCO2 at Pt Temp ABG pO2 at Pt Temp ABG HCO3 ABG Base Excess (Actual) VBG pH 7.37 VBG pCO2 58 VBG pO2 47 VBG HCO3 34 H VBG O2 Saturation 75.0 VBG Base Excess 8.1 Sodium 139 Potassium 4.8 Chloride 103 Carbon Dioxide 29 Anion Gap 12 BUN 31 H Creatinine 0.67 Estim Creat Clear Calc 151.2 Estimated GFR > 60 POC Glucose 207 H Random Glucose 237 H Fasting Glucose Lactic Acid Lactic Acid F/U @ 2Hr Lactic Acid F/U @ 4Hr Calcium 9.5 Phosphorus Magnesium 2.1 Ferritin Total Bilirubin Direct Bilirubin AST ALT Alkaline Phosphatase Lactate Dehydrogenase Total Creatine Kinase Troponin I High Sens C-Reactive Protein B-Natriuretic Peptide Total Protein Albumin Procalcitonin TSH Urine Color Urine Appearance Urine pH Ur Specific [place] Urine Protein Urine Glucose (UA) Urine Ketones Urine Blood Urine Nitrite Ur Leukocyte Esterase Urine RBC Urine WBC Urine WBC Clumps Ur Squamous Epith Cells Ur Renal Epithelial Cell Uric Acid Crystals Amorphous Sediment Urine Bacteria Urine Mucus Stool Occult Blood Urine Opiates Screen Urine Fentanyl Screen Ur Barbiturates Screen Ur Phencyclidine Scrn Ur Amphetamines Screen U Benzodiazepines Scrn Urine Cocaine Screen U Marijuana (THC) Screen C. difficile Tox B Gene COVID-19 (KRISTOPHER) COVID-19 Clin Com Blood Type Antibody Screen Crossmatch 07/04/21 07/04/21 07/04/21 11:56 17:44 20:18 WBC RBC Hgb Hct MCV MCH MCHC RDW Plt Count MPV Immature Gran % (Auto) Neut % (Auto) Lymph % (Auto) [place] % (Auto) Eos % (Auto) Baso % (Auto) Lymph # (Auto) [place] # (Auto) Eos # (Auto) Baso # (Auto) Abs Immat Gran (auto) Absolute Neuts (auto) Absolute Nucleated RBC Nucleated RBC % (auto) Neutrophils % (Manual) Band Neutrophils % Lymphocytes % (Manual) Monocytes % (Manual) Eosinophils % (Manual) Metamyelocytes % Myelocytes % Promyelocytes % Abs Neuts (Manual) Lymphocytes # (Manual) Monocytes # (Manual) Eosinophils # (Manual) Metamyelocytes # Myelocytes # Promyelocytes # Smudge Cells Toxic Vacuolation Platelet Estimate Large Platelets Plt Morphology Comment RBC Morphology Polychromasia Hypochromasia Basophilic Stippling Microcytosis Macrocytosis Target Cells Tear Drop Cells Ovalocytes [place] Cells Acanthocytes (Spur) Smear Tech's Comments Smear Path Review PT INR APTT D-Dimer High Sensitivty O2 Saturation ABG pH at Pt Temp ABG pCO2 at Pt Temp ABG pO2 at Pt Temp ABG HCO3 ABG Base Excess (Actual) VBG pH VBG pCO2 VBG pO2 VBG HCO3 VBG O2 Saturation VBG Base Excess Sodium Potassium Chloride Carbon Dioxide Anion Gap BUN Creatinine Estim Creat Clear Calc Estimated GFR POC Glucose 265 H 338 H 300 H Random Glucose Fasting Glucose Lactic Acid Lactic Acid F/U @ 2Hr Lactic Acid F/U @ 4Hr Calcium Phosphorus Magnesium Ferritin Total Bilirubin Direct Bilirubin AST ALT Alkaline Phosphatase Lactate Dehydrogenase Total Creatine Kinase Troponin I High Sens C-Reactive Protein B-Natriuretic Peptide Total Protein Albumin Procalcitonin TSH Urine Color Urine Appearance Urine pH Ur Specific [place] Urine Protein Urine Glucose (UA) Urine Ketones Urine Blood Urine Nitrite Ur Leukocyte Esterase Urine RBC Urine WBC Urine WBC Clumps Ur Squamous Epith Cells Ur Renal Epithelial Cell Uric Acid Crystals Amorphous Sediment Urine Bacteria Urine Mucus Stool Occult Blood Urine Opiates Screen Urine Fentanyl Screen Ur Barbiturates Screen Ur Phencyclidine Scrn Ur Amphetamines Screen U Benzodiazepines Scrn Urine Cocaine Screen U Marijuana (THC) Screen C. difficile Tox B Gene COVID-19 (KRISTOPHER) COVID-19 Clin Com Blood Type Antibody Screen Crossmatch 07/04/21 07/05/21 07/05/21 23:23 05:20 05:20 WBC 12.2 H RBC 4.10 L D Hgb 10.1 L D Hct 33.9 L D MCV 82.7 MCH 24.6 L MCHC 29.8 L RDW 16.2 H Plt Count 598 H D MPV 9.4 Immature Gran % (Auto) Neut % (Auto) Lymph % (Auto) [place] % (Auto) Eos % (Auto) Baso % (Auto) Lymph # (Auto) [place] # (Auto) Eos # (Auto) Baso # (Auto) Abs Immat Gran (auto) Absolute Neuts (auto) Absolute Nucleated RBC 0.000 Nucleated RBC % (auto) 0.0 Neutrophils % (Manual) Band Neutrophils % Lymphocytes % (Manual) Monocytes % (Manual) Eosinophils % (Manual) Metamyelocytes % Myelocytes % Promyelocytes % Abs Neuts (Manual) Lymphocytes # (Manual) Monocytes # (Manual) Eosinophils # (Manual) Metamyelocytes # Myelocytes # Promyelocytes # Smudge Cells Toxic Vacuolation Platelet Estimate Large Platelets Plt Morphology Comment RBC Morphology Polychromasia Hypochromasia Basophilic Stippling Microcytosis Macrocytosis Target Cells Tear Drop Cells Ovalocytes [place] Cells Acanthocytes (Spur) Smear Tech's Comments Smear Path Review PT INR APTT D-Dimer High Sensitivty O2 Saturation ABG pH at Pt Temp ABG pCO2 at Pt Temp ABG pO2 at Pt Temp ABG HCO3 ABG Base Excess (Actual) VBG pH VBG pCO2 VBG pO2 VBG HCO3 VBG O2 Saturation VBG Base Excess Sodium 136 Potassium 4.5 Chloride 101 Carbon Dioxide 28 Anion Gap 12 BUN 27 H Creatinine 0.68 Estim Creat Clear Calc 149.0 Estimated GFR > 60 POC Glucose 213 H Random Glucose 219 H Fasting Glucose Lactic Acid Lactic Acid F/U @ 2Hr Lactic Acid F/U @ 4Hr Calcium 9.9 Phosphorus 2.8 Magnesium 2.1 Ferritin Total Bilirubin 0.2 Direct Bilirubin AST 11 ALT 17 Alkaline Phosphatase 83 Lactate Dehydrogenase Total Creatine Kinase Troponin I High Sens C-Reactive Protein B-Natriuretic Peptide Total Protein 6.9 Albumin 3.6 Procalcitonin TSH Urine Color Urine Appearance Urine pH Ur Specific [place] Urine Protein Urine Glucose (UA) Urine Ketones Urine Blood Urine Nitrite Ur Leukocyte Esterase Urine RBC Urine WBC Urine WBC Clumps Ur Squamous Epith Cells Ur Renal Epithelial Cell Uric Acid Crystals Amorphous Sediment Urine Bacteria Urine Mucus Stool Occult Blood Urine Opiates Screen Urine Fentanyl Screen Ur Barbiturates Screen Ur Phencyclidine Scrn Ur Amphetamines Screen U Benzodiazepines Scrn Urine Cocaine Screen U Marijuana (THC) Screen C. difficile Tox B Gene COVID-19 (KRISTOPHER) COVID-19 Clin Com Blood Type Antibody Screen Crossmatch 07/05/21 07/05/21 07/05/21 05:20 05:26 05:52 WBC RBC Hgb Hct MCV MCH MCHC RDW Plt Count MPV Immature Gran % (Auto) Neut % (Auto) Lymph % (Auto) [place] % (Auto) Eos % (Auto) Baso % (Auto) Lymph # (Auto) [place] # (Auto) Eos # (Auto) Baso # (Auto) Abs Immat Gran (auto) Absolute Neuts (auto) Absolute Nucleated RBC Nucleated RBC % (auto) Neutrophils % (Manual) Band Neutrophils % Lymphocytes % (Manual) Monocytes % (Manual) Eosinophils % (Manual) Metamyelocytes % Myelocytes % Promyelocytes % Abs Neuts (Manual) Lymphocytes # (Manual) Monocytes # (Manual) Eosinophils # (Manual) Metamyelocytes # Myelocytes # Promyelocytes # Smudge Cells Toxic Vacuolation Platelet Estimate Large Platelets Plt Morphology Comment RBC Morphology Polychromasia Hypochromasia Basophilic Stippling Microcytosis Macrocytosis Target Cells Tear Drop Cells Ovalocytes [place] Cells Acanthocytes (Spur) Smear Tech's Comments Smear Path Review PT INR APTT D-Dimer High Sensitivty 3216 O2 Saturation ABG pH at Pt Temp ABG pCO2 at Pt Temp ABG pO2 at Pt Temp ABG HCO3 ABG Base Excess (Actual) VBG pH 7.43 VBG pCO2 41 VBG pO2 47 VBG HCO3 28 H VBG O2 Saturation 77.0 VBG Base Excess 3.7 Sodium Potassium Chloride Carbon Dioxide Anion Gap BUN Creatinine Estim Creat Clear Calc Estimated GFR POC Glucose 213 H Random Glucose Fasting Glucose Lactic Acid Lactic Acid F/U @ 2Hr Lactic Acid F/U @ 4Hr Calcium Phosphorus Magnesium Ferritin Total Bilirubin Direct Bilirubin AST ALT Alkaline Phosphatase Lactate Dehydrogenase Total Creatine Kinase Troponin I High Sens C-Reactive Protein B-Natriuretic Peptide Total Protein Albumin Procalcitonin TSH Urine Color Urine Appearance Urine pH Ur Specific [place] Urine Protein Urine Glucose (UA) Urine Ketones Urine Blood Urine Nitrite Ur Leukocyte Esterase Urine RBC Urine WBC Urine WBC Clumps Ur Squamous Epith Cells Ur Renal Epithelial Cell Uric Acid Crystals Amorphous Sediment Urine Bacteria Urine Mucus Stool Occult Blood Urine Opiates Screen Urine Fentanyl Screen Ur Barbiturates Screen Ur Phencyclidine Scrn Ur Amphetamines Screen U Benzodiazepines Scrn Urine Cocaine Screen U Marijuana (THC) Screen C. difficile Tox B Gene COVID-19 (KRISTOPHER) COVID-19 Clin Com Blood Type Antibody Screen Crossmatch 07/05/21 07/05/21 07/05/21 11:43 17:58 21:28 WBC RBC Hgb Hct MCV MCH MCHC RDW Plt Count MPV Immature Gran % (Auto) Neut % (Auto) Lymph % (Auto) [place] % (Auto) Eos % (Auto) Baso % (Auto) Lymph # (Auto) [place] # (Auto) Eos # (Auto) Baso # (Auto) Abs Immat Gran (auto) Absolute Neuts (auto) Absolute Nucleated RBC Nucleated RBC % (auto) Neutrophils % (Manual) Band Neutrophils % Lymphocytes % (Manual) Monocytes % (Manual) Eosinophils % (Manual) Metamyelocytes % Myelocytes % Promyelocytes % Abs Neuts (Manual) Lymphocytes # (Manual) Monocytes # (Manual) Eosinophils # (Manual) Metamyelocytes # Myelocytes # Promyelocytes # Smudge Cells Toxic Vacuolation Platelet Estimate Large Platelets Plt Morphology Comment RBC Morphology Polychromasia Hypochromasia Basophilic Stippling Microcytosis Macrocytosis Target Cells Tear Drop Cells Ovalocytes [place] Cells Acanthocytes (Spur) Smear Tech's Comments Smear Path Review PT INR APTT D-Dimer High Sensitivty O2 Saturation ABG pH at Pt Temp ABG pCO2 at Pt Temp ABG pO2 at Pt Temp ABG HCO3 ABG Base Excess (Actual) VBG pH VBG pCO2 VBG pO2 VBG HCO3 VBG O2 Saturation VBG Base Excess Sodium Potassium Chloride Carbon Dioxide Anion Gap BUN Creatinine Estim Creat Clear Calc Estimated GFR POC Glucose 165 H 231 H Random Glucose Fasting Glucose Lactic Acid Lactic Acid F/U @ 2Hr Lactic Acid F/U @ 4Hr Calcium Phosphorus Magnesium Ferritin Total Bilirubin Direct Bilirubin AST ALT Alkaline Phosphatase Lactate Dehydrogenase Total Creatine Kinase Troponin I High Sens C-Reactive Protein B-Natriuretic Peptide Total Protein Albumin Procalcitonin TSH Urine Color Urine Appearance Urine pH Ur Specific [place] Urine Protein Urine Glucose (UA) Urine Ketones Urine Blood Urine Nitrite Ur Leukocyte Esterase Urine RBC Urine WBC Urine WBC Clumps Ur Squamous Epith Cells Ur Renal Epithelial Cell Uric Acid Crystals Amorphous Sediment Urine Bacteria Urine Mucus Stool Occult Blood POSITIVE Urine Opiates Screen Urine Fentanyl Screen Ur Barbiturates Screen Ur Phencyclidine Scrn Ur Amphetamines Screen U Benzodiazepines Scrn Urine Cocaine Screen U Marijuana (THC) Screen C. difficile Tox B Gene COVID-19 (KRISTOPHER) COVID-19 Clin Com Blood Type Antibody Screen Crossmatch 07/05/21 07/06/21 07/06/21 23:21 05:47 12:00 WBC RBC Hgb Hct MCV MCH MCHC RDW Plt Count MPV Immature Gran % (Auto) Neut % (Auto) Lymph % (Auto) [place] % (Auto) Eos % (Auto) Baso % (Auto) Lymph # (Auto) [place] # (Auto) Eos # (Auto) Baso # (Auto) Abs Immat Gran (auto) Absolute Neuts (auto) Absolute Nucleated RBC Nucleated RBC % (auto) Neutrophils % (Manual) Band Neutrophils % Lymphocytes % (Manual) Monocytes % (Manual) Eosinophils % (Manual) Metamyelocytes % Myelocytes % Promyelocytes % Abs Neuts (Manual) Lymphocytes # (Manual) Monocytes # (Manual) Eosinophils # (Manual) Metamyelocytes # Myelocytes # Promyelocytes # Smudge Cells Toxic Vacuolation Platelet Estimate Large Platelets Plt Morphology Comment RBC Morphology Polychromasia Hypochromasia Basophilic Stippling Microcytosis Macrocytosis Target Cells Tear Drop Cells Ovalocytes [place] Cells Acanthocytes (Spur) Smear Tech's Comments Smear Path Review PT INR APTT D-Dimer High Sensitivty O2 Saturation ABG pH at Pt Temp ABG pCO2 at Pt Temp ABG pO2 at Pt Temp ABG HCO3 ABG Base Excess (Actual) VBG pH VBG pCO2 VBG pO2 VBG HCO3 VBG O2 Saturation VBG Base Excess Sodium Potassium Chloride Carbon Dioxide Anion Gap BUN Creatinine Estim Creat Clear Calc Estimated GFR POC Glucose 161 H 179 H 130 H Random Glucose Fasting Glucose Lactic Acid Lactic Acid F/U @ 2Hr Lactic Acid F/U @ 4Hr Calcium Phosphorus Magnesium Ferritin Total Bilirubin Direct Bilirubin AST ALT Alkaline Phosphatase Lactate Dehydrogenase Total Creatine Kinase Troponin I High Sens C-Reactive Protein B-Natriuretic Peptide Total Protein Albumin Procalcitonin TSH Urine Color Urine Appearance Urine pH Ur Specific [place] Urine Protein Urine Glucose (UA) Urine Ketones Urine Blood Urine Nitrite Ur Leukocyte Esterase Urine RBC Urine WBC Urine WBC Clumps Ur Squamous Epith Cells Ur Renal Epithelial Cell Uric Acid Crystals Amorphous Sediment Urine Bacteria Urine Mucus Stool Occult Blood Urine Opiates Screen Urine Fentanyl Screen Ur Barbiturates Screen Ur Phencyclidine Scrn Ur Amphetamines Screen U Benzodiazepines Scrn Urine Cocaine Screen U Marijuana (THC) Screen C. difficile Tox B Gene COVID-19 (KRISTOPHER) COVID-19 Clin Com Blood Type Antibody Screen Crossmatch 07/06/21 07/06/21 07/07/21 17:47 23:50 05:36 WBC RBC Hgb Hct MCV MCH MCHC RDW Plt Count MPV Immature Gran % (Auto) Neut % (Auto) Lymph % (Auto) [place] % (Auto) Eos % (Auto) Baso % (Auto) Lymph # (Auto) [place] # (Auto) Eos # (Auto) Baso # (Auto) Abs Immat Gran (auto) Absolute Neuts (auto) Absolute Nucleated RBC Nucleated RBC % (auto) Neutrophils % (Manual) Band Neutrophils % Lymphocytes % (Manual) Monocytes % (Manual) Eosinophils % (Manual) Metamyelocytes % Myelocytes % Promyelocytes % Abs Neuts (Manual) Lymphocytes # (Manual) Monocytes # (Manual) Eosinophils # (Manual) Metamyelocytes # Myelocytes # Promyelocytes # Smudge Cells Toxic Vacuolation Platelet Estimate Large Platelets Plt Morphology Comment RBC Morphology Polychromasia Hypochromasia Basophilic Stippling Microcytosis Macrocytosis Target Cells Tear Drop Cells Ovalocytes [place] Cells Acanthocytes (Spur) Smear Tech's Comments Smear Path Review PT INR APTT D-Dimer High Sensitivty O2 Saturation ABG pH at Pt Temp ABG pCO2 at Pt Temp ABG pO2 at Pt Temp ABG HCO3 ABG Base Excess (Actual) VBG pH 7.48 H VBG pCO2 40 VBG pO2 44 VBG HCO3 30 H VBG O2 Saturation 75.0 VBG Base Excess 6.9 Sodium Potassium Chloride Carbon Dioxide Anion Gap BUN Creatinine Estim Creat Clear Calc Estimated GFR POC Glucose 179 H 169 H Random Glucose Fasting Glucose Lactic Acid Lactic Acid F/U @ 2Hr Lactic Acid F/U @ 4Hr Calcium Phosphorus Magnesium Ferritin Total Bilirubin Direct Bilirubin AST ALT Alkaline Phosphatase Lactate Dehydrogenase Total Creatine Kinase Troponin I High Sens C-Reactive Protein B-Natriuretic Peptide Total Protein Albumin Procalcitonin TSH Urine Color Urine Appearance Urine pH Ur Specific [place] Urine Protein Urine Glucose (UA) Urine Ketones Urine Blood Urine Nitrite Ur Leukocyte Esterase Urine RBC Urine WBC Urine WBC Clumps Ur Squamous Epith Cells Ur Renal Epithelial Cell Uric Acid Crystals Amorphous Sediment Urine Bacteria Urine Mucus Stool Occult Blood Urine Opiates Screen Urine Fentanyl Screen Ur Barbiturates Screen Ur Phencyclidine Scrn Ur Amphetamines Screen U Benzodiazepines Scrn Urine Cocaine Screen U Marijuana (THC) Screen C. difficile Tox B Gene COVID-19 (KRISTOPHER) COVID-19 Clin Com Blood Type Antibody Screen Crossmatch 07/07/21 07/07/21 07/07/21 05:41 05:41 11:32 WBC 10.7 RBC 3.87 L Hgb 9.6 L Hct 32.1 L MCV 82.9 MCH 24.8 L MCHC 29.9 L RDW 16.8 H Plt Count 478 H MPV 9.8 Immature Gran % (Auto) 1.8 H Neut % (Auto) 90.7 H Lymph % (Auto) 5.1 L [place] % (Auto) 2.4 Eos % (Auto) 0.0 Baso % (Auto) 0.0 Lymph # (Auto) 0.6 L [place] # (Auto) 0.3 Eos # (Auto) 0.0 Baso # (Auto) 0.0 Abs Immat Gran (auto) 0.19 H Absolute Neuts (auto) 9.7 H Absolute Nucleated RBC 0.000 Nucleated RBC % (auto) 0.0 Neutrophils % (Manual) Band Neutrophils % Lymphocytes % (Manual) Monocytes % (Manual) Eosinophils % (Manual) Metamyelocytes % Myelocytes % Promyelocytes % Abs Neuts (Manual) Lymphocytes # (Manual) Monocytes # (Manual) Eosinophils # (Manual) Metamyelocytes # Myelocytes # Promyelocytes # Smudge Cells Toxic Vacuolation Platelet Estimate Large Platelets Plt Morphology Comment RBC Morphology Polychromasia Hypochromasia Basophilic Stippling Microcytosis Macrocytosis Target Cells Tear Drop Cells Ovalocytes [place] Cells Acanthocytes (Spur) Smear Tech's Comments VERIFIED Smear Path Review PT INR APTT D-Dimer High Sensitivty O2 Saturation ABG pH at Pt Temp ABG pCO2 at Pt Temp ABG pO2 at Pt Temp ABG HCO3 ABG Base Excess (Actual) VBG pH VBG pCO2 VBG pO2 VBG HCO3 VBG O2 Saturation VBG Base Excess Sodium 141 Potassium 4.5 Chloride 104 Carbon Dioxide 29 Anion Gap 13 BUN 34 H Creatinine 0.64 Estim Creat Clear Calc 155.4 Estimated GFR > 60 POC Glucose 175 H Random Glucose 225 H Fasting Glucose Lactic Acid Lactic Acid F/U @ 2Hr Lactic Acid F/U @ 4Hr Calcium 9.7 Phosphorus 3.0 Magnesium 2.0 Ferritin Total Bilirubin 0.4 Direct Bilirubin AST 10 ALT 16 Alkaline Phosphatase 77 Lactate Dehydrogenase Total Creatine Kinase Troponin I High Sens C-Reactive Protein B-Natriuretic Peptide Total Protein 6.0 L Albumin 3.1 L Procalcitonin TSH Urine Color Urine Appearance Urine pH Ur Specific [place] Urine Protein Urine Glucose (UA) Urine Ketones Urine Blood Urine Nitrite Ur Leukocyte Esterase Urine RBC Urine WBC Urine WBC Clumps Ur Squamous Epith Cells Ur Renal Epithelial Cell Uric Acid Crystals Amorphous Sediment Urine Bacteria Urine Mucus Stool Occult Blood Urine Opiates Screen Urine Fentanyl Screen Ur Barbiturates Screen Ur Phencyclidine Scrn Ur Amphetamines Screen U Benzodiazepines Scrn Urine Cocaine Screen U Marijuana (THC) Screen C. difficile Tox B Gene COVID-19 (KRISTOPHER) COVID-19 Clin Com Blood Type Antibody Screen Crossmatch 07/07/21 07/07/21 07/07/21 17:45 18:49 23:29 WBC RBC Hgb Hct MCV MCH MCHC RDW Plt Count MPV Immature Gran % (Auto) Neut % (Auto) Lymph % (Auto) [place] % (Auto) Eos % (Auto) Baso % (Auto) Lymph # (Auto) [place] # (Auto) Eos # (Auto) Baso # (Auto) Abs Immat Gran (auto) Absolute Neuts (auto) Absolute Nucleated RBC Nucleated RBC % (auto) Neutrophils % (Manual) Band Neutrophils % Lymphocytes % (Manual) Monocytes % (Manual) Eosinophils % (Manual) Metamyelocytes % Myelocytes % Promyelocytes % Abs Neuts (Manual) Lymphocytes # (Manual) Monocytes # (Manual) Eosinophils # (Manual) Metamyelocytes # Myelocytes # Promyelocytes # Smudge Cells Toxic Vacuolation Platelet Estimate Large Platelets Plt Morphology Comment RBC Morphology Polychromasia Hypochromasia Basophilic Stippling Microcytosis Macrocytosis Target Cells Tear Drop Cells Ovalocytes [place] Cells Acanthocytes (Spur) Smear Tech's Comments Smear Path Review PT INR APTT D-Dimer High Sensitivty O2 Saturation ABG pH at Pt Temp ABG pCO2 at Pt Temp ABG pO2 at Pt Temp ABG HCO3 ABG Base Excess (Actual) VBG pH VBG pCO2 VBG pO2 VBG HCO3 VBG O2 Saturation VBG Base Excess Sodium Potassium Chloride Carbon Dioxide Anion Gap BUN Creatinine Estim Creat Clear Calc Estimated GFR POC Glucose 196 H 196 H Random Glucose Fasting Glucose Lactic Acid Lactic Acid F/U @ 2Hr Lactic Acid F/U @ 4Hr Calcium Phosphorus Magnesium Ferritin Total Bilirubin Direct Bilirubin AST ALT Alkaline Phosphatase Lactate Dehydrogenase Total Creatine Kinase Troponin I High Sens C-Reactive Protein B-Natriuretic Peptide Total Protein Albumin Procalcitonin TSH Urine Color Urine Appearance Urine pH Ur Specific [place] Urine Protein Urine Glucose (UA) Urine Ketones Urine Blood Urine Nitrite Ur Leukocyte Esterase Urine RBC Urine WBC Urine WBC Clumps Ur Squamous Epith Cells Ur Renal Epithelial Cell Uric Acid Crystals Amorphous Sediment Urine Bacteria Urine Mucus Stool Occult Blood POSITIVE Urine Opiates Screen Urine Fentanyl Screen Ur Barbiturates Screen Ur Phencyclidine Scrn Ur Amphetamines Screen U Benzodiazepines Scrn Urine Cocaine Screen U Marijuana (THC) Screen C. difficile Tox B Gene COVID-19 (KRISTOPHER) COVID-19 Clin Com Blood Type Antibody Screen Crossmatch 07/08/21 07/08/21 07/08/21 05:59 11:17 17:31 WBC RBC Hgb Hct MCV MCH MCHC RDW Plt Count MPV Immature Gran % (Auto) Neut % (Auto) Lymph % (Auto) [place] % (Auto) Eos % (Auto) Baso % (Auto) Lymph # (Auto) [place] # (Auto) Eos # (Auto) Baso # (Auto) Abs Immat Gran (auto) Absolute Neuts (auto) Absolute Nucleated RBC Nucleated RBC % (auto) Neutrophils % (Manual) Band Neutrophils % Lymphocytes % (Manual) Monocytes % (Manual) Eosinophils % (Manual) Metamyelocytes % Myelocytes % Promyelocytes % Abs Neuts (Manual) Lymphocytes # (Manual) Monocytes # (Manual) Eosinophils # (Manual) Metamyelocytes # Myelocytes # Promyelocytes # Smudge Cells Toxic Vacuolation Platelet Estimate Large Platelets Plt Morphology Comment RBC Morphology Polychromasia Hypochromasia Basophilic Stippling Microcytosis Macrocytosis Target Cells Tear Drop Cells Ovalocytes [place] Cells Acanthocytes (Spur) Smear Tech's Comments Smear Path Review PT INR APTT D-Dimer High Sensitivty O2 Saturation ABG pH at Pt Temp ABG pCO2 at Pt Temp ABG pO2 at Pt Temp ABG HCO3 ABG Base Excess (Actual) VBG pH VBG pCO2 VBG pO2 VBG HCO3 VBG O2 Saturation VBG Base Excess Sodium Potassium Chloride Carbon Dioxide Anion Gap BUN Creatinine Estim Creat Clear Calc Estimated GFR POC Glucose 231 H 221 H 245 H Random Glucose Fasting Glucose Lactic Acid Lactic Acid F/U @ 2Hr Lactic Acid F/U @ 4Hr Calcium Phosphorus Magnesium Ferritin Total Bilirubin Direct Bilirubin AST ALT Alkaline Phosphatase Lactate Dehydrogenase Total Creatine Kinase Troponin I High Sens C-Reactive Protein B-Natriuretic Peptide Total Protein Albumin Procalcitonin TSH Urine Color Urine Appearance Urine pH Ur Specific [place] Urine Protein Urine Glucose (UA) Urine Ketones Urine Blood Urine Nitrite Ur Leukocyte Esterase Urine RBC Urine WBC Urine WBC Clumps Ur Squamous Epith Cells Ur Renal Epithelial Cell Uric Acid Crystals Amorphous Sediment Urine Bacteria Urine Mucus Stool Occult Blood Urine Opiates Screen Urine Fentanyl Screen Ur Barbiturates Screen Ur Phencyclidine Scrn Ur Amphetamines Screen U Benzodiazepines Scrn Urine Cocaine Screen U Marijuana (THC) Screen C. difficile Tox B Gene COVID-19 (KRISTOPHER) COVID-19 Clin Com Blood Type Antibody Screen Crossmatch 07/08/21 07/08/21 07/08/21 21:25 23:37 23:47 WBC RBC Hgb Hct MCV MCH MCHC RDW Plt Count MPV Immature Gran % (Auto) Neut % (Auto) Lymph % (Auto) [place] % (Auto) Eos % (Auto) Baso % (Auto) Lymph # (Auto) [place] # (Auto) Eos # (Auto) Baso # (Auto) Abs Immat Gran (auto) Absolute Neuts (auto) Absolute Nucleated RBC Nucleated RBC % (auto) Neutrophils % (Manual) Band Neutrophils % Lymphocytes % (Manual) Monocytes % (Manual) Eosinophils % (Manual) Metamyelocytes % Myelocytes % Promyelocytes % Abs Neuts (Manual) Lymphocytes # (Manual) Monocytes # (Manual) Eosinophils # (Manual) Metamyelocytes # Myelocytes # Promyelocytes # Smudge Cells Toxic Vacuolation Platelet Estimate Large Platelets Plt Morphology Comment RBC Morphology Polychromasia Hypochromasia Basophilic Stippling Microcytosis Macrocytosis Target Cells Tear Drop Cells Ovalocytes [place] Cells Acanthocytes (Spur) Smear Tech's Comments Smear Path Review PT INR APTT D-Dimer High Sensitivty O2 Saturation ABG pH at Pt Temp ABG pCO2 at Pt Temp ABG pO2 at Pt Temp ABG HCO3 ABG Base Excess (Actual) VBG pH VBG pCO2 VBG pO2 VBG HCO3 VBG O2 Saturation VBG Base Excess Sodium Potassium Chloride Carbon Dioxide Anion Gap BUN Creatinine Estim Creat Clear Calc Estimated GFR POC Glucose 139 H 110 Random Glucose Fasting Glucose Lactic Acid Lactic Acid F/U @ 2Hr Lactic Acid F/U @ 4Hr Calcium Phosphorus Magnesium Ferritin Total Bilirubin Direct Bilirubin AST ALT Alkaline Phosphatase Lactate Dehydrogenase Total Creatine Kinase Troponin I High Sens C-Reactive Protein B-Natriuretic Peptide Total Protein Albumin Procalcitonin TSH Urine Color Urine Appearance Urine pH Ur Specific [place] Urine Protein Urine Glucose (UA) Urine Ketones Urine Blood Urine Nitrite Ur Leukocyte Esterase Urine RBC Urine WBC Urine WBC Clumps Ur Squamous Epith Cells Ur Renal Epithelial Cell Uric Acid Crystals Amorphous Sediment Urine Bacteria Urine Mucus Stool Occult Blood POSITIVE Urine Opiates Screen Urine Fentanyl Screen Ur Barbiturates Screen Ur Phencyclidine Scrn Ur Amphetamines Screen U Benzodiazepines Scrn Urine Cocaine Screen U Marijuana (THC) Screen C. difficile Tox B Gene COVID-19 (KRISTOPHER) COVID-19 Clin Com Blood Type Antibody Screen Crossmatch 07/09/21 07/09/21 07/09/21 05:20 05:20 06:44 WBC 12.2 H RBC 4.21 L Hgb 10.3 L Hct 34.3 L MCV 81.5 MCH 24.5 L MCHC 30.0 L RDW 16.8 H Plt Count 409 H MPV 9.9 Immature Gran % (Auto) 1.3 H Neut % (Auto) 89.6 H Lymph % (Auto) 5.8 L [place] % (Auto) 3.2 Eos % (Auto) 0.0 Baso % (Auto) 0.1 Lymph # (Auto) 0.7 L [place] # (Auto) 0.4 Eos # (Auto) 0.0 Baso # (Auto) 0.0 Abs Immat Gran (auto) 0.16 H Absolute Neuts (auto) 10.9 H Absolute Nucleated RBC 0.000 Nucleated RBC % (auto) 0.0 Neutrophils % (Manual) Band Neutrophils % Lymphocytes % (Manual) Monocytes % (Manual) Eosinophils % (Manual) Metamyelocytes % Myelocytes % Promyelocytes % Abs Neuts (Manual) Lymphocytes # (Manual) Monocytes # (Manual) Eosinophils # (Manual) Metamyelocytes # Myelocytes # Promyelocytes # Smudge Cells Toxic Vacuolation Platelet Estimate Large Platelets Plt Morphology Comment RBC Morphology Polychromasia Hypochromasia Basophilic Stippling Microcytosis Macrocytosis Target Cells Tear Drop Cells Ovalocytes [place] Cells Acanthocytes (Spur) Smear Tech's Comments Smear Path Review PT INR APTT D-Dimer High Sensitivty O2 Saturation ABG pH at Pt Temp ABG pCO2 at Pt Temp ABG pO2 at Pt Temp ABG HCO3 ABG Base Excess (Actual) VBG pH VBG pCO2 VBG pO2 VBG HCO3 VBG O2 Saturation VBG Base Excess Sodium 141 Potassium 3.3 D Chloride 115 H Carbon Dioxide 21 L Anion Gap 8 L BUN 25 H Creatinine 0.45 L Estim Creat Clear Calc 220.7 Estimated GFR > 60 POC Glucose 115 Random Glucose 97 D Fasting Glucose Lactic Acid Lactic Acid F/U @ 2Hr Lactic Acid F/U @ 4Hr Calcium 7.4 L D Phosphorus Magnesium Ferritin Total Bilirubin 0.3 Direct Bilirubin AST 10 ALT 14 Alkaline Phosphatase 58 D Lactate Dehydrogenase Total Creatine Kinase Troponin I High Sens C-Reactive Protein B-Natriuretic Peptide Total Protein 4.6 L D Albumin 2.5 L Procalcitonin TSH Urine Color Urine Appearance Urine pH Ur Specific [place] Urine Protein Urine Glucose (UA) Urine Ketones Urine Blood Urine Nitrite Ur Leukocyte Esterase Urine RBC Urine WBC Urine WBC Clumps Ur Squamous Epith Cells Ur Renal Epithelial Cell Uric Acid Crystals Amorphous Sediment Urine Bacteria Urine Mucus Stool Occult Blood Urine Opiates Screen Urine Fentanyl Screen Ur Barbiturates Screen Ur Phencyclidine Scrn Ur Amphetamines Screen U Benzodiazepines Scrn Urine Cocaine Screen U Marijuana (THC) Screen C. difficile Tox B Gene COVID-19 (KRISTOPHER) COVID-19 Clin Com Blood Type Antibody Screen Crossmatch 07/09/21 07/09/21 07/09/21 11:52 13:54 15:53 WBC RBC Hgb Hct MCV MCH MCHC RDW Plt Count MPV Immature Gran % (Auto) Neut % (Auto) Lymph % (Auto) [place] % (Auto) Eos % (Auto) Baso % (Auto) Lymph # (Auto) [place] # (Auto) Eos # (Auto) Baso # (Auto) Abs Immat Gran (auto) Absolute Neuts (auto) Absolute Nucleated RBC Nucleated RBC % (auto) Neutrophils % (Manual) Band Neutrophils % Lymphocytes % (Manual) Monocytes % (Manual) Eosinophils % (Manual) Metamyelocytes % Myelocytes % Promyelocytes % Abs Neuts (Manual) Lymphocytes # (Manual) Monocytes # (Manual) Eosinophils # (Manual) Metamyelocytes # Myelocytes # Promyelocytes # Smudge Cells Toxic Vacuolation Platelet Estimate Large Platelets Plt Morphology Comment RBC Morphology Polychromasia Hypochromasia Basophilic Stippling Microcytosis Macrocytosis Target Cells Tear Drop Cells Ovalocytes [place] Cells Acanthocytes (Spur) Smear Tech's Comments Smear Path Review PT INR APTT D-Dimer High Sensitivty O2 Saturation ABG pH at Pt Temp ABG pCO2 at Pt Temp ABG pO2 at Pt Temp ABG HCO3 ABG Base Excess (Actual) VBG pH VBG pCO2 VBG pO2 VBG HCO3 VBG O2 Saturation VBG Base Excess Sodium Potassium Chloride Carbon Dioxide Anion Gap BUN Creatinine Estim Creat Clear Calc Estimated GFR POC Glucose 54 L* 111 Random Glucose Fasting Glucose Lactic Acid Lactic Acid F/U @ 2Hr Lactic Acid F/U @ 4Hr Calcium Phosphorus Magnesium Ferritin Total Bilirubin Direct Bilirubin AST ALT Alkaline Phosphatase Lactate Dehydrogenase Total Creatine Kinase Troponin I High Sens C-Reactive Protein B-Natriuretic Peptide Total Protein Albumin Procalcitonin TSH Urine Color Urine Appearance Urine pH Ur Specific [place] Urine Protein Urine Glucose (UA) Urine Ketones Urine Blood Urine Nitrite Ur Leukocyte Esterase Urine RBC Urine WBC Urine WBC Clumps Ur Squamous Epith Cells Ur Renal Epithelial Cell Uric Acid Crystals Amorphous Sediment Urine Bacteria Urine Mucus Stool Occult Blood Urine Opiates Screen Urine Fentanyl Screen Ur Barbiturates Screen Ur Phencyclidine Scrn Ur Amphetamines Screen U Benzodiazepines Scrn Urine Cocaine Screen U Marijuana (THC) Screen C. difficile Tox B Gene COVID-19 (KRISTOPHER) COVID-19 Clin Com Blood Type O Positive Antibody Screen NEGATIVE Crossmatch 07/09/21 07/09/21 07/09/21 17:49 20:29 23:28 WBC RBC Hgb Hct MCV MCH MCHC RDW Plt Count MPV Immature Gran % (Auto) Neut % (Auto) Lymph % (Auto) [place] % (Auto) Eos % (Auto) Baso % (Auto) Lymph # (Auto) [place] # (Auto) Eos # (Auto) Baso # (Auto) Abs Immat Gran (auto) Absolute Neuts (auto) Absolute Nucleated RBC Nucleated RBC % (auto) Neutrophils % (Manual) Band Neutrophils % Lymphocytes % (Manual) Monocytes % (Manual) Eosinophils % (Manual) Metamyelocytes % Myelocytes % Promyelocytes % Abs Neuts (Manual) Lymphocytes # (Manual) Monocytes # (Manual) Eosinophils # (Manual) Metamyelocytes # Myelocytes # Promyelocytes # [place] Cells Toxic Vacuolation Platelet Estimate Large Platelets Plt Morphology Comment RBC Morphology Polychromasia Hypochromasia Basophilic Stippling Microcytosis Macrocytosis Target Cells Tear Drop Cells Ovalocytes [place] Cells Acanthocytes (Spur) Smear Tech's Comments Smear Path Review PT INR APTT D-Dimer High Sensitivty O2 Saturation ABG pH at Pt Temp ABG pCO2 at Pt Temp ABG pO2 at Pt Temp ABG HCO3 ABG Base Excess (Actual) VBG pH VBG pCO2 VBG pO2 VBG HCO3 VBG O2 Saturation VBG Base Excess Sodium Potassium Chloride Carbon Dioxide Anion Gap BUN Creatinine Estim Creat Clear Calc Estimated GFR POC Glucose 95 97 79 Random Glucose Fasting Glucose Lactic Acid Lactic Acid F/U @ 2Hr Lactic Acid F/U @ 4Hr Calcium Phosphorus Magnesium Ferritin Total Bilirubin Direct Bilirubin AST ALT Alkaline Phosphatase Lactate Dehydrogenase Total Creatine Kinase Troponin I High Sens C-Reactive Protein B-Natriuretic Peptide Total Protein Albumin Procalcitonin TSH Urine Color Urine Appearance Urine pH Ur Specific [place] Urine Protein Urine Glucose (UA) Urine Ketones Urine Blood Urine Nitrite Ur Leukocyte Esterase Urine RBC Urine WBC Urine WBC Clumps Ur Squamous Epith Cells Ur Renal Epithelial Cell Uric Acid Crystals Amorphous Sediment Urine Bacteria Urine Mucus Stool Occult Blood Urine Opiates Screen Urine Fentanyl Screen Ur Barbiturates Screen Ur Phencyclidine Scrn Ur Amphetamines Screen U Benzodiazepines Scrn Urine Cocaine Screen U Marijuana (THC) Screen C. difficile Tox B Gene COVID-19 (KRISTOPHER) COVID-19 Clin Com Blood Type Antibody Screen Crossmatch 07/10/21 07/10/21 07/10/21 00:52 04:40 04:40 WBC 15.2 H RBC 4.65 Hgb 11.3 L Hct 37.7 L MCV 81.1 MCH 24.3 L MCHC 30.0 L RDW 17.3 H Plt Count 508 H MPV 9.9 Immature Gran % (Auto) 0.9 H Neut % (Auto) 85.6 H Lymph % (Auto) 8.7 L [place] % (Auto) 4.7 Eos % (Auto) 0.0 Baso % (Auto) 0.1 Lymph # (Auto) 1.3 [place] # (Auto) 0.7 Eos # (Auto) 0.0 Baso # (Auto) 0.0 Abs Immat Gran (auto) 0.13 H Absolute Neuts (auto) 13.0 H Absolute Nucleated RBC 0.000 Nucleated RBC % (auto) 0.0 Neutrophils % (Manual) Band Neutrophils % Lymphocytes % (Manual) Monocytes % (Manual) Eosinophils % (Manual) Metamyelocytes % Myelocytes % Promyelocytes % Abs Neuts (Manual) Lymphocytes # (Manual) Monocytes # (Manual) Eosinophils # (Manual) Metamyelocytes # Myelocytes # Promyelocytes # [place]udge Cells Toxic Vacuolation Platelet Estimate Large Platelets Plt Morphology Comment RBC Morphology Polychromasia Hypochromasia Basophilic Stippling Microcytosis Macrocytosis Target Cells Tear Drop Cells Ovalocytes [place] Cells Acanthocytes (Spur) Smear Tech's Comments Smear Path Review PT INR APTT D-Dimer High Sensitivty 2158 O2 Saturation ABG pH at Pt Temp ABG pCO2 at Pt Temp ABG pO2 at Pt Temp ABG HCO3 ABG Base Excess (Actual) VBG pH VBG pCO2 VBG pO2 VBG HCO3 VBG O2 Saturation VBG Base Excess Sodium Potassium Chloride Carbon Dioxide Anion Gap BUN Creatinine Estim Creat Clear Calc Estimated GFR POC Glucose 95 Random Glucose Fasting Glucose Lactic Acid Lactic Acid F/U @ 2Hr Lactic Acid F/U @ 4Hr Calcium Phosphorus Magnesium Ferritin Total Bilirubin Direct Bilirubin AST ALT Alkaline Phosphatase Lactate Dehydrogenase Total Creatine Kinase Troponin I High Sens C-Reactive Protein B-Natriuretic Peptide Total Protein Albumin Procalcitonin TSH Urine Color Urine Appearance Urine pH Ur Specific [place] Urine Protein Urine Glucose (UA) Urine Ketones Urine Blood Urine Nitrite Ur Leukocyte Esterase Urine RBC Urine WBC Urine WBC Clumps Ur Squamous Epith Cells Ur Renal Epithelial Cell Uric Acid Crystals Amorphous Sediment Urine Bacteria Urine Mucus Stool Occult Blood Urine Opiates Screen Urine Fentanyl Screen Ur Barbiturates Screen Ur Phencyclidine Scrn Ur Amphetamines Screen U Benzodiazepines Scrn Urine Cocaine Screen U Marijuana (THC) Screen C. difficile Tox B Gene COVID-19 (KRISTOPHER) COVID-19 Clin Com Blood Type Antibody Screen Crossmatch 07/10/21 07/10/21 07/10/21 04:40 04:43 05:50 WBC RBC Hgb Hct MCV MCH MCHC RDW Plt Count MPV Immature Gran % (Auto) Neut % (Auto) Lymph % (Auto) [place] % (Auto) Eos % (Auto) Baso % (Auto) Lymph # (Auto) [place] # (Auto) Eos # (Auto) Baso # (Auto) Abs Immat Gran (auto) Absolute Neuts (auto) Absolute Nucleated RBC Nucleated RBC % (auto) Neutrophils % (Manual) Band Neutrophils % Lymphocytes % (Manual) Monocytes % (Manual) Eosinophils % (Manual) Metamyelocytes % Myelocytes % Promyelocytes % Abs Neuts (Manual) Lymphocytes # (Manual) Monocytes # (Manual) Eosinophils # (Manual) Metamyelocytes # Myelocytes # Promyelocytes # Smudge Cells Toxic Vacuolation Platelet Estimate Large Platelets Plt Morphology Comment RBC Morphology Polychromasia Hypochromasia Basophilic Stippling Microcytosis Macrocytosis Target Cells Tear Drop Cells Ovalocytes [place] Cells Acanthocytes (Spur) Smear Tech's Comments Smear Path Review PT INR APTT D-Dimer High Sensitivty O2 Saturation ABG pH at Pt Temp ABG pCO2 at Pt Temp ABG pO2 at Pt Temp ABG HCO3 ABG Base Excess (Actual) VBG pH 7.49 H VBG pCO2 34 VBG pO2 51 VBG HCO3 26 VBG O2 Saturation 81.0 VBG Base Excess 4.0 Sodium 138 Potassium 4.3 D Chloride 103 Carbon Dioxide 27 Anion Gap 12 BUN 30 H Creatinine 0.60 Estim Creat Clear Calc 152.5 Estimated GFR > 60 POC Glucose 61 Random Glucose 66 Fasting Glucose Lactic Acid Lactic Acid F/U @ 2Hr Lactic Acid F/U @ 4Hr Calcium 10.1 D Phosphorus 3.1 Magnesium 2.0 Ferritin 176 Total Bilirubin 0.7 Direct Bilirubin 0.4 AST 17 D ALT 24 Alkaline Phosphatase 87 D Lactate Dehydrogenase 257 Total Creatine Kinase 45 Troponin I High Sens C-Reactive Protein 0.49 B-Natriuretic Peptide Total Protein 6.6 D Albumin 3.5 D Procalcitonin TSH Urine Color Urine Appearance Urine pH Ur Specific [place] Urine Protein Urine Glucose (UA) Urine Ketones Urine Blood Urine Nitrite Ur Leukocyte Esterase Urine RBC Urine WBC Urine WBC Clumps Ur Squamous Epith Cells Ur Renal Epithelial Cell Uric Acid Crystals Amorphous Sediment Urine Bacteria Urine Mucus Stool Occult Blood Urine Opiates Screen Urine Fentanyl Screen Ur Barbiturates Screen Ur Phencyclidine Scrn Ur Amphetamines Screen U Benzodiazepines Scrn Urine Cocaine Screen U Marijuana (THC) Screen C. difficile Tox B Gene COVID-19 (KRISTOPHER) COVID-19 Clin Com Blood Type Antibody Screen Crossmatch 07/10/21 07/10/21 07:41 11:42 WBC RBC Hgb Hct MCV MCH MCHC RDW Plt Count MPV Immature Gran % (Auto) Neut % (Auto) Lymph % (Auto) [place] % (Auto) Eos % (Auto) Baso % (Auto) Lymph # (Auto) [place] # (Auto) Eos # (Auto) Baso # (Auto) Abs Immat Gran (auto) Absolute Neuts (auto) Absolute Nucleated RBC Nucleated RBC % (auto) Neutrophils % (Manual) Band Neutrophils % Lymphocytes % (Manual) Monocytes % (Manual) Eosinophils % (Manual) Metamyelocytes % Myelocytes % Promyelocytes % Abs Neuts (Manual) Lymphocytes # (Manual) Monocytes # (Manual) Eosinophils # (Manual) Metamyelocytes # Myelocytes # Promyelocytes # Sm[place] Cells Toxic Vacuolation Platelet Estimate Large Platelets Plt Morphology Comment RBC Morphology Polychromasia Hypochromasia Basophilic Stippling Microcytosis Macrocytosis Target Cells Tear Drop Cells Ovalocytes [place] Cells Acanthocytes (Spur) Smear Tech's Comments Smear Path Review PT INR APTT D-Dimer High Sensitivty O2 Saturation ABG pH at Pt Temp ABG pCO2 at Pt Temp ABG pO2 at Pt Temp ABG HCO3 ABG Base Excess (Actual) VBG pH VBG pCO2 VBG pO2 VBG HCO3 VBG O2 Saturation VBG Base Excess Sodium Potassium Chloride Carbon Dioxide Anion Gap BUN Creatinine Estim Creat Clear Calc Estimated GFR POC Glucose 55 L* Random Glucose Fasting Glucose Lactic Acid Lactic Acid F/U @ 2Hr Lactic Acid F/U @ 4Hr Calcium Phosphorus Magnesium Ferritin Total Bilirubin Direct Bilirubin AST ALT Alkaline Phosphatase Lactate Dehydrogenase Total Creatine Kinase Troponin I High Sens C-Reactive Protein B-Natriuretic Peptide Total Protein Albumin Procalcitonin TSH Urine Color Urine Appearance Urine pH Ur Specific [place] Urine Protein Urine Glucose (UA) Urine Ketones Urine Blood Urine Nitrite Ur Leukocyte Esterase Urine RBC Urine WBC Urine WBC Clumps Ur Squamous Epith Cells Ur Renal Epithelial Cell Uric Acid Crystals Amorphous Sediment Urine Bacteria Urine Mucus Stool Occult Blood Urine Opiates Screen Urine Fentanyl Screen Ur Barbiturates Screen Ur Phencyclidine Scrn Ur Amphetamines Screen U Benzodiazepines Scrn Urine Cocaine Screen U Marijuana (THC) Screen C. difficile Tox B Gene COVID-19 (KRISTOPHER) Positive A COVID-19 Clin Com See Note Blood Type Antibody Screen Crossmatch
--- NOTE | 2021-07-10 14:10 | P.PNCC_ITS ---
Subjective Subjective Date of Service: 07/10/21 Interval History: 60-year-old moderately obese male who was unvaccinated is a type 2 diabetic presented with progressive hypoxic respiratory failure from COVID-19 pneumonitis but the precipitating hypoxic respiratory failure was on the basis of snorting cocaine in his room he became rapidly encephalopathic and required emergent intubation and it has been over 3 weeks since that time he also was somewhat myopathic with ejection fraction in the 30s which may very well of also been an acute cardiomyopathic response to the cocaine that has since resolved elevated CVP from pulmonary edema since resolved and noncardiogenic component of pu lmonary edema since resolved possible E coli nosocomial lung infection as well as urinary tract infection now resolved and COVID clinically resolving and is minutes ventilatory requirements are 8 in a 0.5 L and FiO2 today is down to 30% and low in by hold off of the Versed he is awake he makes eye contact he understands follows commands marked improvement and he spent hours now on pressure support of 12/5 with tidal volumes of 350-450 cc and respiratory rate in the low to mid 20s and at this point I do not think we quite have the the cognitive function to say we can wean today but per definitely postponing tracheostomy and PEG Critical Care Time (minutes): 45 Physical Exam Verdana 4l Vital Signs: Verdana 4d Verdana 4d Vital Signs: Verdana 4d Verdana 4Bd Last Vital Signs Verdana 4d [employer] New 4d [facility] New 4d Temp 97.0 F 07/10/21 14:00 [facility] New 4d Pulse 75 07/10/21 14:00 [facility] New 4d Resp 21 H 07/10/21 14:00 BP 121/65 07/10/21 14:00 Pulse Ox 96 07/10/21 14:00 Oxygen Flow Rate 10 06/15/21 00:21 BMI result Body Mass Index 27.8 he is awake alert moving all extremities and good cognitive function so were cancelling his CT scan and holding off on his tracheostomy and PEG tube because he might be weanable within the next 24 hours abdomen benign chest without accessory muscle or diaphragm effort no wheezing cardiovascular by bedside echo normal Objective Data Labs CBC & Chem 7: 07/10/21 04:40 07/10/21 04:40 Labs: Laboratory Results - last 24 hr 07/09/21 07/09/21 07/09/21 15:53 17:49 20:29 WBC RBC Hgb Hct MCV MCH MCHC RDW Plt Count MPV Immature Gran % (Auto) Neut % (Auto) Lymph % (Auto) Rankin % (Auto) Eos % (Auto) Baso % (Auto) Lymph # (Auto) Rankin # (Auto) Eos # (Auto) Baso # (Auto) Abs Immat Gran (auto) Absolute Neuts (auto) Absolute Nucleated RBC Nucleated RBC % (auto) D-Dimer High Sensitivty VBG pH VBG pCO2 VBG pO2 VBG HCO3 VBG O2 Saturation VBG Base Excess Sodium Potassium Chloride Carbon Dioxide Anion Gap BUN Creatinine Estim Creat Clear Calc Estimated GFR POC Glucose 95 97 Random Glucose Calcium Phosphorus Magnesium Ferritin Total Bilirubin Direct Bilirubin AST ALT Alkaline Phosphatase Lactate Dehydrogenase Total Creatine Kinase C-Reactive Protein Total Protein Albumin COVID-19 (KRISTOPHER) COVID-19 [employer] Blood Type O Positive Antibody Screen NEGATIVE 07/09/21 07/10/21 07/10/21 23:28 00:52 04:40 WBC 15.2 H RBC 4.65 Hgb 11.3 L Hct 37.7 L MCV 81.1 MCH 24.3 L MCHC 30.0 L RDW 17.3 H Plt Count 508 H MPV 9.9 Immature Gran % (Auto) 0.9 H Neut % (Auto) 85.6 H Lymph % (Auto) 8.7 L Rankin % (Auto) 4.7 Eos % (Auto) 0.0 Baso % (Auto) 0.1 Lymph # (Auto) 1.3 Rankin # (Auto) 0.7 Eos # (Auto) 0.0 Baso # (Auto) 0.0 Abs Immat Gran (auto) 0.13 H Absolute Neuts (auto) 13.0 H Absolute Nucleated RBC 0.000 Nucleated RBC % (auto) 0.0 D-Dimer High Sensitivty VBG pH VBG pCO2 VBG pO2 VBG HCO3 VBG O2 Saturation VBG Base Excess Sodium Potassium Chloride Carbon Dioxide Anion Gap BUN Creatinine Estim Creat Clear Calc Estimated GFR POC Glucose 79 95 Random Glucose Calcium Phosphorus Magnesium Ferritin Total Bilirubin Direct Bilirubin AST ALT Alkaline Phosphatase Lactate Dehydrogenase Total Creatine Kinase C-Reactive Protein Total Protein Albumin COVID-19 (KRISTOPHER) COVID-19 [employer] Blood Type Antibody Screen 07/10/21 07/10/21 07/10/21 04:40 04:40 04:43 WBC RBC Hgb Hct MCV MCH MCHC RDW Plt Count MPV Immature Gran % (Auto) Neut % (Auto) Lymph % (Auto) Rankin % (Auto) Eos % (Auto) Baso % (Auto) Lymph # (Auto) Rankin # (Auto) Eos # (Auto) Baso # (Auto) Abs Immat Gran (auto) Absolute Neuts (auto) Absolute Nucleated RBC Nucleated RBC % (auto) D-Dimer High Sensitivty 2158 VBG pH 7.49 H VBG pCO2 34 VBG pO2 51 VBG HCO3 26 VBG O2 Saturation 81.0 VBG Base Excess 4.0 Sodium 138 Potassium 4.3 D Chloride 103 Carbon Dioxide 27 Anion Gap 12 BUN 30 H Creatinine 0.60 Estim Creat Clear Calc 152.5 Estimated GFR > 60 POC Glucose Random Glucose 66 Calcium 10.1 D Phosphorus 3.1 Magnesium 2.0 Ferritin 176 Total Bilirubin 0.7 Direct Bilirubin 0.4 AST 17 D ALT 24 Alkaline Phosphatase 87 D Lactate Dehydrogenase 257 Total Creatine Kinase 45 C-Reactive Protein 0.49 Total Protein 6.6 D Albumin 3.5 D COVID-19 (KRISTOPHER) COVID-[employer] Digital Com Blood Type Antibody Screen 07/10/21 07/10/21 07/10/21 05:50 07:41 11:42 WBC RBC Hgb Hct MCV MCH MCHC RDW Plt Count MPV Immature Gran % (Auto) Neut % (Auto) Lymph % (Auto) Rankin % (Auto) Eos % (Auto) Baso % (Auto) Lymph # (Auto) Rankin # (Auto) Eos # (Auto) Baso # (Auto) Abs Immat Gran (auto) Absolute Neuts (auto) Absolute Nucleated RBC Nucleated RBC % (auto) D-Dimer High Sensitivty VBG pH VBG pCO2 VBG pO2 VBG HCO3 VBG O2 Saturation VBG Base Excess Sodium Potassium Chloride Carbon Dioxide Anion Gap BUN Creatinine Estim Creat Clear Calc Estimated GFR POC Glucose 61 55 L* Random Glucose Calcium Phosphorus Magnesium Ferritin Total Bilirubin Direct Bilirubin AST ALT Alkaline Phosphatase Lactate Dehydrogenase Total Creatine Kinase C-Reactive Protein Total Protein Albumin COVID-19 (KRISTOPHER) Positive A COVID-19 [employer] Com See Note Blood Type Antibody Screen Microbiology Microbiology Results: Microbiology 07/10/21 08:30 Sputum - Suctioned Gram Stain - Final 06/21/21 Unknown Urine Catheterized - Villa Catheter Urine Culture - Final Escherichia coli 06/21/21 13:06 Sputum - Suctioned Gram Stain - Final 06/21/21 13:06 Sputum - Suctioned Sputum Culture - Final Escherichia coli 06/20/21 15:30 Sputum - Suctioned Gram Stain - Final 06/20/21 15:30 Sputum - Suctioned Sputum Culture - Final Escherichia coli 06/15/21 00:51 Blood - Venous Blood Culture - Final No growth after 5 days. 06/15/21 00:50 Blood - Venous Blood Culture - Final No growth after 5 days. Progress Note: A&P Assessment and plan (1) Diabetes 1.5, managed as type 1: Status: Acute (2) Pneumomediastinum: Status: Acute (3) Pulmonary edema due to chemical: Status: Acute (4) Cocaine abuse with intoxication: Status: Acute (5) Suppression of immune system subtherapeutic: Status: Acute (6) Morbid obesity: Status: Acute (7) Acute respiratory distress syndrome (ARDS): Status: Acute (8) Acute hypoxemic respiratory failure: Status: Acute (9) IBD (inflammatory bowel disease): Status: Acute (10) Anemia: Status: Acute (11) Pneumonia due to COVID-19 virus: Status: Acute (12) Hypoxia: Status: Acute (13) CHF (congestive heart failure): Status: Acute (14) Normocytic anemia: Status: Acute (15) Colitis: Status: Acute Plan the plan is stop the tracheostomy and PEG and I will switch him to dexmedetomidine Oli and keep him intubated overnight possibly on a pressure control with slightly increased inspiratory pressure as a resting mechanism and then go for pressure support and possible discontinuation of ventilator altogether tomorrow for now I will also restore feeding Quality Stroke Does the patient have a stroke diagnosis?: No VTE Prior VTE?: No VTE Risk Level:: Medical - moderate - high VTE Device Contraindication: N/A - Device Ordered VTE Drug Contraindication: N/A - Med Ordered
[2021-07-10 18:06] LABS: Glucose, Whole Blood 109 mg/dL (60-115)
[2021-07-10] MEDS: dexmedeTOMIDidine HCL/NS 400 MCG/100 ML INFUS..BTL 25.2 MCG IVCONT (21:13)
[2021-07-11] VITALS (30 sets, daily range): BP systolic 98–147; BP diastolic 55–87; PULSE 58–125; RESP 12–28; TEMP 33–38.6; O2SAT 94–100; BMI 28.0
[2021-07-11 00:12] LABS: Glucose, Whole Blood 101 mg/dL (60-115)
[2021-07-11] MEDS: 0.9 % Sodium Chloride Flush 3 ML SYRINGE IVFLUSH ×2 (00:25→13:25)
[2021-07-11] MEDS: dexmedeTOMIDidine HCL/NS 400 MCG/100 ML INFUS..BTL 25.2 MCG IVCONT ×2 (00:30→04:38)
[2021-07-11 03:44] LABS: MANUAL DIFF FLAG NO
[2021-07-11 03:45] LABS: Basophils Percent Auto 0.1 % (0-2); Hematocrit 33.6 % (42.0-52.0); Hemoglobin 10.3 g/dl (14.0-18.0); Imm Gran Abs Auto 0.08 X10*3/uL (0.00-0.03); Imm Gran Pct Auto 1.1 % (0.0-0.4); Lymphocytes Absolute Auto 0.6 X10*3/uL (1.2-4.9); Lymphocytes Percent Auto 7.7 % (20-40); Mean Corpuscular HGB Conc 30.7 g/dl (31.0-36.0); Mean Corpuscular Hemoglobin 25.1 pg (27.0-33.0); Mean Platelet Volume 9.3 fL (9.4-12.4); Monocytes Absolute Auto 0.3 X10*3/uL (0.1-1.2); Monocytes Percent Auto 3.6 % (2-11); Neutrophils Absolute Auto 6.5 x10*3/uL (2.0-8.3); Neutrophils Percent Auto 87.5 % (45-73); Platelet Count 320 X10*3/uL (160-400); Red Cell Distribution Width 17.2 % (11.0-16.0); White Blood Count 7.4 X10*3/uL (4.8-10.8)
[2021-07-11 03:51] LABS: VBG HCO3 26 mmol/L (22-26); VBG pCO2 37 mmHg; VBG pH 7.46 (7.32-7.43); VBG pO2 40 mmHg
[2021-07-11 03:51] LABS: Venous Blood Gas Refer to POC result
[2021-07-11 03:55] LABS: D Dimer High Sensitivity 2861 NG/ML
[2021-07-11 03:57] LABS: Lactic Acid 1.1 mmol/L (0.5-2.0)
[2021-07-11 04:01] LABS: Alanine Aminotransferase 24 U/L (0-40); Albumin Level 3.1 g/dL (3.5-5.0); Alkaline Phosphatase 77 U/L (39-117); Anion Gap 11 (12-20); Aspartate Amino Transferase 14 U/L (5-37); Bilirubin Direct 0.4 mg/dL (0.0-0.5); Bilirubin Total 0.7 mg/dL (0.0-1.0); Blood Urea Nitrogen 36 mg/dL (9-16); C Reactive Protein 0.34 mg/dL (< or = 0.50); Calcium 9.7 mg/dL (8.4-10.2); Carbon Dioxide 27 mmol/L (22-29); Chloride 104 mmol/L (96-108); Creatinine Clr Calc Pharmacy 128.9; Estimated Glomerular Filt Rate > 60; Glucose Random 249 mg/dL (60-115); Lactate Dehydrogenase 203 U/L (118-273); Magnesium 2.1 mg/dL (1.6-2.6); Phosphorus 3.6 mg/dL (2.7-4.5); Potassium 4.9 mmol/L (3.3-5.1); Sodium 137 mmol/L (135-145); Total Protein 5.8 g/dL (6.5-8.0)
[2021-07-11 04:30] LABS: Ferritin 196 ng/mL (20-250)
[2021-07-11 05:31] LABS: Glucose, Whole Blood 193 mg/dL (60-115)
[2021-07-11] MEDS: Acetaminophen 325 MG TABLET 650 MG OG-TUBE (06:20)
--- NOTE | 2021-07-11 06:39 | MHC.PIE ---
Elevated temp - T-max 101.5 - Karyna PA aware - ordered lactic acid to be drawn, blood cultures, morning labs drawn early. Lactic WNL, cultures pending. Tylenol ordered and given PRN at 0620. Ice packs also placed under arms and on groin earlier in order to lower temp, which had little affect. Patient tolerating Pressure control vent settings - seeming to become more awake through night, restless, pulling at restraints - titrated precedex (see MAR). Patient making eye contact, shaking head, etc. Minimal in-line secretions - white.
[2021-07-11] MEDS: Thiamine HCL 100 MG TABLET 200 MG G-TUBE (07:55)
[2021-07-11] MEDS: fluvoxaMINE Maleate 50 MG TABLET 100 MG G-TUBE (07:55)
[2021-07-11] MEDS: methylPREDNISolone Sod Succ 125 MG/2 ML VIAL 50 MG IVPUSH ×2 (07:56→18:26)
[2021-07-11] MEDS: Chlorhexidine Gluc Oral Rinse 15 ML MOUTHWASH BUCCAL (07:56)
[2021-07-11] MEDS: Enoxaparin Sodium 40 MG/0.4 ML SYRINGE SUBCUT (07:56)
[2021-07-11] MEDS: Fluconazole in NaCl,Iso-Osm 200 MG/100 ML PIGGYBACK 100 MG IV (07:56)
[2021-07-11] MEDS: dexmedeTOMIDidine HCL/NS 400 MCG/100 ML INFUS..BTL 30.24 MCG IVCONT (07:59)
[2021-07-11] MEDS: Insulin Glargine,Hum.rec.anlog 100 UNIT/ML 10 ML VIAL 50 UNIT SUBCUT (08:12)
--- NOTE | 2021-07-11 08:55 | PC.NURSE ---
Patient has a stage 2 to coccyx-Triad being applied covered with foam dressing. No other skin issues noted at this time.
[2021-07-11] MEDS: rifAXIMin 550 MG TABLET PO (10:24)
[2021-07-11] MEDS: vancomycin HCL 1,250 MG in 0.9 % Sodium Chloride 250 ML 166.67 MG IV (10:25)
--- NOTE | 2021-07-11 10:38 | MHC.CLN ---
F/U PT WITH FEVER LAST EVENING TF ON HOLD R/T HIGH RESIDUALS AND QUESTION OF PEG/TRACH DISCUSSED AT ROUNDS PER MD; PT POSSIBLE EXTUBATION TODAY FOLLOWING WITH TEAM
[2021-07-11 10:49] LABS: CDiff Gene PCR NEGATIVE (Negative)
[2021-07-11 12:05] LABS: Glucose, Whole Blood 130 mg/dL (60-115)
--- NOTE | 2021-07-11 14:10 | MHC.CM.PN ---
Per ICU rounds, patient did not go for trach/pege because patient has become more alert. Plan is to extubate patient today. Still anticipate patient will need rehab at d/c. Received 2 Covid vaccines. Continue to monitor for d/c needs.
--- NOTE | 2021-07-11 16:56 | P.PNCC_ITS ---
Subjective Subjective Date of Service: 07/11/21 Interval History: 60-year-old male at least moderate obesity and type 2 diabetic with background history of inflammatory bowel disease and chronic low level lower GI bleeding anemia presents with acute hypoxemic respiratory failure from COVID-19 pneumonitis and while on noninvasive oxygen support in the hospital he snorted cocaine and developed precipitous hypoxemic respiratory failure requiring emergent intubation and he remained intubated for 3 weeks due to the addition of done cardiogenic pulmonary edema and cardiogenic pulmonary edema because he developed an acute carditis with moderately reduced ejection fraction which has since repaired over time so part of his support on the ventilator and included CVP monitoring and diuresing him according to those numbers and he was given treatment including Decadron and baricitinib and then eventually even fluvoxamine and was successfully extubated today because his FiO2 had been at 3 0% and is minutes ventilatory requirements remained at about 8 to 8.5 liters/minute and on pressure support he did very well for prolonged amount of time with excellent vital capacity and so he was extubated without complication Although he followed commands and did have some anabaptism of cognitive function he still had a level of agitation and requires some brief support with dexmedetomidine with excellent results He he had a low-grade temperature and he has some bilateral atelectasis of his lungs because he did not appear to be toxic but multiple re-culturing surveillance failed to show anything in the sputum and he had stable atelectasis on his chest x-ray but he is growing Mayda tropicalis from his urinary tract which were covering with fluconazole He is awaiting swallow evaluation and he is not yet cleared to eat Critical Care Time (minutes): 60 Physical Exam Verdana 4l Vital Signs: Verdana 4d Verdana 4d Vital Signs: Verdana 4d Verdana 4Bd Last Vital Signs Verdana 4d Clothes Wringer New 4d Clothes Wringer New 4d Temp 99.3 F 07/11/21 16:00 Clothes Wringer New 4d Pulse 97 07/11/21 16:00 Clothes Wringer New 4d Resp 17 07/11/21 16:00 BP 127/74 07/11/21 16:00 Pulse Ox 94 07/11/21 16:00 Oxygen Flow Rate 10 06/15/21 00:21 BMI result Body Mass Index 28.0 Good cognitive function and nonfocal neurologically Successfully extubated following long pressure support trial Abdomen is soft no organomegaly Cardiac exam by bedside echo class 1 LV function Shallow decubitus overlying coccyx Objective Data Labs CBC & Chem 7: 07/12/21 05:40 07/12/21 05:40 Labs: Laboratory Results - last 24 hr 07/10/21 07/10/21 07/11/21 18:01 23:57 03:40 WBC 7.4 RBC 4.10 L Hgb 10.3 L Hct 33.6 L MCV 82.0 MCH 25.1 L MCHC 30.7 L RDW 17.2 H Plt Count 320 D MPV 9.3 L Immature Gran % (Auto) 1.1 H Neut % (Auto) 87.5 H Lymph % (Auto) 7.7 L Williamson % (Auto) 3.6 Eos % (Auto) 0.0 Baso % (Auto) 0.1 Lymph # (Auto) 0.6 L Williamson # (Auto) 0.3 Eos # (Auto) 0.0 Baso # (Auto) 0.0 Abs Immat Gran (auto) 0.08 H Absolute Neuts (auto) 6.5 Absolute Nucleated RBC 0.000 Nucleated RBC % (auto) 0.0 D-Dimer High Sensitivty VBG pH VBG pCO2 VBG pO2 VBG HCO3 VBG O2 Saturation VBG Base Excess Sodium Potassium Chloride Carbon Dioxide Anion Gap BUN Creatinine Estim Creat Clear Calc Estimated GFR POC Glucose 109 101 Random Glucose Lactic Acid Calcium Phosphorus Magnesium Ferritin Total Bilirubin Direct Bilirubin AST ALT Alkaline Phosphatase Lactate Dehydrogenase Total Creatine Kinase C-Reactive Protein Total Protein Albumin C. difficile Tox B Gene 07/11/21 07/11/21 07/11/21 03:40 03:40 03:40 WBC RBC Hgb Hct MCV MCH MCHC RDW Plt Count MPV Immature Gran % (Auto) Neut % (Auto) Lymph % (Auto) Williamson % (Auto) Eos % (Auto) Baso % (Auto) Lymph # (Auto) Williamson # (Auto) Eos # (Auto) Baso # (Auto) Abs Immat Gran (auto) Absolute Neuts (auto) Absolute Nucleated RBC Nucleated RBC % (auto) D-Dimer High Sensitivty 2861 VBG pH VBG pCO2 VBG pO2 VBG HCO3 VBG O2 Saturation VBG Base Excess Sodium 137 Potassium 4.9 Chloride 104 Carbon Dioxide 27 Anion Gap 11 L BUN 36 H Creatinine 0.71 Estim Creat Clear Calc 128.9 Estimated GFR > 60 POC Glucose Random Glucose 249 H D Lactic Acid 1.1 Calcium 9.7 Phosphorus 3.6 Magnesium 2.1 Ferritin 196 Total Bilirubin 0.7 Direct Bilirubin 0.4 AST 14 ALT 24 Alkaline Phosphatase 77 Lactate Dehydrogenase 203 Total Creatine Kinase 32 L C-Reactive Protein 0.34 Total Protein 5.8 L Albumin 3.1 L C. difficile Tox B Gene 07/11/21 07/11/21 07/11/21 03:45 05:25 08:15 WBC RBC Hgb Hct MCV MCH MCHC RDW Plt Count MPV Immature Gran % (Auto) Neut % (Auto) Lymph % (Auto) Williamson % (Auto) Eos % (Auto) Baso % (Auto) Lymph # (Auto) Williamson # (Auto) Eos # (Auto) Baso # (Auto) Abs Immat Gran (auto) Absolute Neuts (auto) Absolute Nucleated RBC Nucleated RBC % (auto) D-Dimer High Sensitivty VBG pH 7.46 H VBG pCO2 37 VBG pO2 40 VBG HCO3 26 VBG O2 Saturation 63.0 VBG Base Excess 3.0 Sodium Potassium Chloride Carbon Dioxide Anion Gap BUN Creatinine Estim Creat Clear Calc Estimated GFR POC Glucose 193 H Random Glucose Lactic Acid Calcium Phosphorus Magnesium Ferritin Total Bilirubin Direct Bilirubin AST ALT Alkaline Phosphatase Lactate Dehydrogenase Total Creatine Kinase C-Reactive Protein Total Protein Albumin C. difficile Tox B Gene NEGATIVE 07/11/21 11:51 WBC RBC Hgb Hct MCV MCH MCHC RDW Plt Count MPV Immature Gran % (Auto) Neut % (Auto) Lymph % (Auto) Williamson % (Auto) Eos % (Auto) Baso % (Auto) Lymph # (Auto) Williamson # (Auto) Eos # (Auto) Baso # (Auto) Abs Immat Gran (auto) Absolute Neuts (auto) Absolute Nucleated RBC Nucleated RBC % (auto) D-Dimer High Sensitivty VBG pH VBG pCO2 VBG pO2 VBG HCO3 VBG O2 Saturation VBG Base Excess Sodium Potassium Chloride Carbon Dioxide Anion Gap BUN Creatinine Estim Creat Clear Calc Estimated GFR POC Glucose 130 H Random Glucose Lactic Acid Calcium Phosphorus Magnesium Ferritin Total Bilirubin Direct Bilirubin AST ALT Alkaline Phosphatase Lactate Dehydrogenase Total Creatine Kinase C-Reactive Protein Total Protein Albumin C. difficile Tox B Gene Microbiology Microbiology Results: Microbiology 07/10/21 Unknown Urine Catheterized - [facility] Catheter Urine Culture - Preliminary Yeast 07/10/21 08:30 Sputum - Suctioned Gram Stain - Final 07/10/21 08:30 Sputum - Suctioned Sputum Culture - Preliminary Culture in progress. 06/21/21 Unknown Urine Catheterized - [facility] Catheter Urine Culture - Final Escherichia coli 06/21/21 13:06 Sputum - Suctioned Gram Stain - Final 06/21/21 13:06 Sputum - Suctioned Sputum Culture - Final Escherichia coli 06/20/21 15:30 Sputum - Suctioned Gram Stain - Final 06/20/21 15:30 Sputum - Suctioned Sputum Culture - Final Escherichia coli 06/15/21 00:51 Blood - Venous Blood Culture - Final No growth after 5 days. 06/15/21 00:50 Blood - Venous Blood Culture - Final No growth after 5 days. Progress Note: A&P Assessment and plan (1) Diabetes 1.5, managed as type 1: Status: Acute (2) Pneumomediastinum: Status: Acute (3) Pulmonary edema due to chemical: Status: Acute (4) Cocaine abuse with intoxication: Status: Acute (5) Suppression of immune system subtherapeutic: Status: Acute (6) Morbid obesity: Status: Acute (7) Acute respiratory distress syndrome (ARDS): Status: Acute (8) Acute hypoxemic respiratory failure: Status: Acute (9) IBD (inflammatory bowel disease): Status: Acute (10) Anemia: Status: Acute (11) Pneumonia due to COVID-19 virus: Status: Acute (12) Hypoxia: Status: Acute (13) CHF (congestive heart failure): Status: Acute (14) Normocytic anemia: Status: Acute (15) Colitis: Status: Acute Plan Will observe on nasal cannula oxygen follow mental status and hopefully wean dexmedetomidine as a successful mechanism and possibly onto a Catapres patch and then await clearance from swallow to initiate nutrition and start physical therapy due to deconditioning and fluconazole for a candidal urinary tract infection Quality Stroke Does the patient have a stroke diagnosis?: No VTE Prior VTE?: No VTE Risk Level:: Medical - moderate - high VTE Device Contraindication: N/A - Device Ordered VTE Drug Contraindication: N/A - Med Ordered
[2021-07-11 18:29] LABS: Glucose, Whole Blood 64 mg/dL (60-115)
[2021-07-12] VITALS (19 sets, daily range): BP systolic 117–190; BP diastolic 70–97; PULSE 81–132; RESP 16–36; TEMP 35.9–37.9; O2SAT 87–98; BMI 27.1
[2021-07-12] MEDS: HYDROmorphone HCl 0.5 MG/0.5 ML SYRINGE 0.25 MG IVPUSH (00:10)
[2021-07-12] MEDS: 0.9 % Sodium Chloride Flush 3 ML SYRINGE IVFLUSH ×3 (01:29→20:38)
[2021-07-12 01:54] LABS: Glucose, Whole Blood 64 mg/dL (60-115)
[2021-07-12] MEDS: Dextrose 50 % 25 GM/50 ML SYRINGE IVPUSH (02:54)
[2021-07-12 04:46] LABS: Glucose, Whole Blood 110 mg/dL (60-115)
[2021-07-12 05:48] LABS: MANUAL DIFF FLAG NO
[2021-07-12 05:53] LABS: Basophils Percent Auto 0.1 % (0-2); Hematocrit 36.4 % (42.0-52.0); Hemoglobin 11.3 g/dl (14.0-18.0); Imm Gran Abs Auto 0.11 X10*3/uL (0.00-0.03); Imm Gran Pct Auto 0.8 % (0.0-0.4); Lymphocytes Absolute Auto 1.3 X10*3/uL (1.2-4.9); Lymphocytes Percent Auto 10.3 % (20-40); Mean Corpuscular Volume 80.5 fL (80.0-98.0); Mean Platelet Volume 9.9 fL (9.4-12.4); Monocytes Absolute Auto 1.1 X10*3/uL (0.1-1.2); Monocytes Percent Auto 8.4 % (2-11); Neutrophils Absolute Auto 10.4 x10*3/uL (2.0-8.3); Neutrophils Percent Auto 80.4 % (45-73); Platelet Count 484 X10*3/uL (160-400); Red Blood Count 4.52 X10*6/uL (4.60-5.80); Red Cell Distribution Width 17.6 % (11.0-16.0)
[2021-07-12 05:58] LABS: VBG Base Excess 6.3 mmol/L; VBG HCO3 29 mmol/L (22-26); VBG pCO2 35 mmHg; VBG pH 7.52 (7.32-7.43); VBG pO2 53 mmHg
[2021-07-12 06:00] LABS: Venous Blood Gas Refer to POC result
[2021-07-12 06:02] LABS: D Dimer High Sensitivity 2536 NG/ML
[2021-07-12 06:25] LABS: Alanine Aminotransferase 24 U/L (0-40); Albumin Level 3.4 g/dL (3.5-5.0); Alkaline Phosphatase 82 U/L (39-117); Anion Gap 11 (12-20); Aspartate Amino Transferase 14 U/L (5-37); Bilirubin Direct 0.4 mg/dL (0.0-0.5); Bilirubin Total 0.8 mg/dL (0.0-1.0); Blood Urea Nitrogen 35 mg/dL (9-16); C Reactive Protein 0.29 mg/dL (< or = 0.50); Calcium 10.3 mg/dL (8.4-10.2); Carbon Dioxide 29 mmol/L (22-29); Chloride 103 mmol/L (96-108); Creatinine Clr Calc Pharmacy 159.8; Estimated Glomerular Filt Rate > 60; Glucose Random 74 mg/dL (60-115); Lactate Dehydrogenase 259 U/L (118-273); Magnesium 2.2 mg/dL (1.6-2.6); Phosphorus 3.1 mg/dL (2.7-4.5); Sodium 139 mmol/L (135-145); Total Protein 6.4 g/dL (6.5-8.0)
[2021-07-12 06:41] LABS: Ferritin 405 ng/mL (20-250)
[2021-07-12] MEDS: methylPREDNISolone Sod Succ 125 MG/2 ML VIAL 50 MG IVPUSH (07:13)
[2021-07-12] MEDS: dexmedeTOMIDidine HCL/NS 400 MCG/100 ML INFUS..BTL 10.08 MCG IVCONT (07:53)
--- NOTE | 2021-07-12 08:52 | P.CDIC_ITS ---
CDI Concurrent Query Documentation Clarification: PHYSICIAN'S DOCUMENTATION REQUEST Date of Query: 07/12/21 0852 Patient Name: Bhavik Johnson Admit Date: 06/15/21 Dear Doctor, A review of the medical record indicates additional documentation may be indicated. Please review below and update the documentation accordingly. Clinical Indicators: Risk Factors/Clinical Indicators/Treatments Wound assessment notes 2/ - Pressure injury Stage II coccyx. Foam dressing, covered in Barrier cream. Based on the above, could you please provide, in the Progress Notes, further information regarding the ulcer/wound: Specifics to noted pressure injury: * If a pressure ulcer, please also include the stage* of the ulcer: * Stage 1 - Skin intact, non-blanchable redness * Stage 2 - Partial thickness loss of dermis, includes intact or open blister * Stage 3 - Full thickness tissue not including bone, tendon, or muscle * Unable to determine *Source: National Pressure Ulcer Advisory Panel (NPUAP) Use of terms such as suspected, likely, concern for, or probable (associated with a specific diagnosis that is being evaluated, monitored, or treated as if it exists) are acceptable and can be coded in the inpatient setting, when documented at the time of discharge. Thank you, Marni Quintana [facility], [facility]IS Extension: [phone] Please use your independent medical judgment in providing your response. THIS QUERY IS PART OF THE PERMANENT MEDICAL RECORD Provider Response: Other Other Diagnosis: agree with stage II decubitus ulcer overlying coccyx
[2021-07-12] MEDS: Enoxaparin Sodium 40 MG/0.4 ML SYRINGE SUBCUT (08:53)
--- NOTE | 2021-07-12 11:18 | MHC.CLN ---
F/U PT EXTUBATED AND AWAKE DIET RX: NPO PENDING SWALLOW EVAL IF DIET TO ADVANCE, RECOMMEND LOW FIBER DIET R/T HX CROHN'S/COLITIS AND LOOSE STOOLS PRIOR TO EXTUBATION IN ADDITION, WILL ADD GLUCERNA BID TO INCREASE KCALS AND PROMOTE WOUND HEALING FOLLOWING WITH TEAM
[2021-07-12 11:19] LABS: Glucose, Whole Blood 64 mg/dL (60-115)
[2021-07-12] MEDS: Dextrose 5 % and Lactated Ring 1,000 ML 60 ML IVCONT (11:21)
--- NOTE | 2021-07-12 14:10 | P.PNCC_ITS ---
Subjective Subjective Date of Service: 07/12/21 Interval History: 60-year-old moderately obese type 2 diabetic presents with hypoxemic respiratory failure due to COVID-19 pneumonitis and in his room snorted cocaine and developed precipitous hypoxemia requiring urgent intubation and he remained intubated for 3 weeks and was extubated grow more than 24 hours ago doing well on nasal cannula He developed the cocaine lung and cardiac toxicity with combined noncardiogenic as well as cardiogenic pulmonary edema all of this now having resolved Clinically had secondary nosocomial bacterial pneumonia and currently Mayda tropicalis urinary tract infection and some persistent atelectasis bilaterally but he is nontoxic had a minimal low-grade temperature and today he has been afebrile doing well and he did have some agitation with sinus tachycardia and all melted away with dexmedetomidine and remains so on Catapres patch so dexmedetomidine was discontinued Critical Care Time (minutes): 45 Physical Exam Verdana 4l Vital Signs: Verdana 4d Verdana 4d Vital Signs: Verdana 4d Verdana 4Bd Last Vital Signs Verdana 4d Aco Coordinator New 4d Aco Coordinator New 4d Temp 99.1 F 07/12/21 13:00 Aco Coordinator New 4d Pulse 91 07/12/21 13:00 Aco Coordinator New 4d Resp 21 H 07/12/21 13:00 BP 117/70 07/12/21 13:00 Pulse Ox 96 07/12/21 13:00 Oxygen Flow Rate 10 06/15/21 00:21 BMI result Body Mass Index 27.1 Oxygen saturation on nasal cannula 98% sinus rhythm at 87 blood pressure 140/70 Neurologically intact just weak from deconditioning and toward that end we are weaning his methylprednisolone Abdomen benign soft with no organomegaly Bedside echo shows globally normal systolic wall motion of the left ventricle Lungs without accessory muscle or diaphragmatic effort Skin with a shallow decubitus over the coccyx Objective Data Labs CBC & Chem 7: 07/12/21 05:40 07/12/21 05:40 Labs: Laboratory Results - last 24 hr 07/11/21 07/12/21 07/12/21 17:57 01:19 04:40 WBC RBC Hgb Hct MCV MCH MCHC RDW Plt Count MPV Immature Gran % (Auto) Neut % (Auto) Lymph % (Auto) [place] % (Auto) Eos % (Auto) Baso % (Auto) Lymph # (Auto) [place] # (Auto) Eos # (Auto) Baso # (Auto) Abs Immat Gran (auto) Absolute Neuts (auto) Absolute Nucleated RBC Nucleated RBC % (auto) D-Dimer High Sensitivty VBG pH VBG pCO2 VBG pO2 VBG HCO3 VBG O2 Saturation VBG Base Excess Sodium Potassium Chloride Carbon Dioxide Anion Gap BUN Creatinine Estim Creat Clear Calc Estimated GFR POC Glucose 64 64 110 Random Glucose Calcium Phosphorus Magnesium Ferritin Total Bilirubin Direct Bilirubin AST ALT Alkaline Phosphatase Lactate Dehydrogenase Total Creatine Kinase C-Reactive Protein Total Protein Albumin 07/12/21 07/12/21 07/12/21 05:40 05:40 05:40 WBC 13.0 H RBC 4.52 L Hgb 11.3 L Hct 36.4 L MCV 80.5 MCH 25.0 L MCHC 31.0 RDW 17.6 H Plt Count 484 H D MPV 9.9 Immature Gran % (Auto) 0.8 H Neut % (Auto) 80.4 H Lymph % (Auto) 10.3 L [place] % (Auto) 8.4 Eos % (Auto) 0.0 Baso % (Auto) 0.1 Lymph # (Auto) 1.3 [place] # (Auto) 1.1 Eos # (Auto) 0.0 Baso # (Auto) 0.0 Abs Immat Gran (auto) 0.11 H Absolute Neuts (auto) 10.4 H Absolute Nucleated RBC 0.000 Nucleated RBC % (auto) 0.0 D-Dimer High Sensitivty 2536 VBG pH VBG pCO2 VBG pO2 VBG HCO3 VBG O2 Saturation VBG Base Excess Sodium 139 Potassium 4.0 Chloride 103 Carbon Dioxide 29 Anion Gap 11 L BUN 35 H Creatinine 0.62 Estim Creat Clear Calc 159.8 Estimated GFR > 60 POC Glucose Random Glucose 74 D Calcium 10.3 H D Phosphorus 3.1 Magnesium 2.2 Ferritin 405 H Total Bilirubin 0.8 Direct Bilirubin 0.4 AST 14 ALT 24 Alkaline Phosphatase 82 Lactate Dehydrogenase 259 Total Creatine Kinase 28 L C-Reactive Protein 0.29 Total Protein 6.4 L Albumin 3.4 L 07/12/21 07/12/21 05:51 11:12 WBC RBC Hgb Hct MCV MCH MCHC RDW Plt Count MPV Immature Gran % (Auto) Neut % (Auto) Lymph % (Auto) [place] % (Auto) Eos % (Auto) Baso % (Auto) Lymph # (Auto) [place] # (Auto) Eos # (Auto) Baso # (Auto) Abs Immat Gran (auto) Absolute Neuts (auto) Absolute Nucleated RBC Nucleated RBC % (auto) D-Dimer High Sensitivty VBG pH 7.52 H VBG pCO2 35 VBG pO2 53 VBG HCO3 29 H VBG O2 Saturation 82.0 VBG Base Excess 6.3 Sodium Potassium Chloride Carbon Dioxide Anion Gap BUN Creatinine Estim Creat Clear Calc Estimated GFR POC Glucose 64 Random Glucose Calcium Phosphorus Magnesium Ferritin Total Bilirubin Direct Bilirubin AST ALT Alkaline Phosphatase Lactate Dehydrogenase Total Creatine Kinase C-Reactive Protein Total Protein Albumin Microbiology Microbiology Results: Microbiology 07/10/21 08:30 Sputum - Suctioned Gram Stain - Final 07/10/21 08:30 Sputum - Suctioned Sputum Culture - Final 07/10/21 Unknown Urine Catheterized - Villa Catheter Urine Culture - Final Mayda tropicalis 07/11/21 03:40 Blood - Venous Blood Culture - Preliminary No growth after 24 hours. 07/11/21 03:31 Blood - Venous Blood Culture - Preliminary No growth after 24 hours. 06/21/21 Unknown Urine Catheterized - Villa Catheter Urine Culture - Final Escherichia coli 06/21/21 13:06 Sputum - Suctioned Gram Stain - Final 06/21/21 13:06 Sputum - Suctioned Sputum Culture - Final Escherichia coli 06/20/21 15:30 Sputum - Suctioned Gram Stain - Final 06/20/21 15:30 Sputum - Suctioned Sputum Culture - Final Escherichia coli 06/15/21 00:51 Blood - Venous Blood Culture - Final No growth after 5 days. 06/15/21 00:50 Blood - Venous Blood Culture - Final No growth after 5 days. Progress Note: A&P Assessment and plan (1) Diabetes 1.5, managed as type 1: Status: Acute (2) Pneumomediastinum: Status: Acute (3) Pulmonary edema due to chemical: Status: Acute (4) Cocaine abuse with intoxication: Status: Acute (5) Suppression of immune system subtherapeutic: Status: Acute (6) Morbid obesity: Status: Acute (7) Acute respiratory distress syndrome (ARDS): Status: Acute (8) Acute hypoxemic respiratory failure: Status: Acute (9) IBD (inflammatory bowel disease): Status: Acute (10) Anemia: Status: Acute (11) Pneumonia due to COVID-19 virus: Status: Acute (12) Hypoxia: Status: Acute (13) CHF (congestive heart failure): Status: Acute (14) Normocytic anemia: Status: Acute (15) Colitis: Status: Acute Plan Plan is to transfer him to the floor on nasal cannula and Catapres patch and fluconazole and physical therapy to work with him and awaiting swallow evalu ation to start nutrition Quality Stroke Does the patient have a stroke diagnosis?: No VTE Prior VTE?: No VTE Risk Level:: Medical - moderate - high VTE Device Contraindication: N/A - Device Ordered VTE Drug Contraindication: N/A - Med Ordered
[2021-07-12] MEDS: Fluconazole in NaCl,Iso-Osm 100 MG in Container,Empty 0 ML 50 MG IV (14:18)
--- NOTE | 2021-07-12 14:45 | MHC.CM.PN ---
Pt has been successfully extubated and is making great progress. Plan of care is to transfer him to a [facility] floor and being functional assessments in preparation of d/c. [facility] referrals made should pt require STR prior to returning to home. Requested PT / OT eval from MD. GARCIA to follow
[2021-07-12 16:17] LABS: Glucose, Whole Blood 77 mg/dL (60-115)
[2021-07-12] MEDS: cloNIDine 0.1 MG PATCH.TDWK TRANSDERMA (16:24)
--- NOTE | 2021-07-12 16:54 | PM.EVENT ---
Event Note Date of Service: 07/12/21 Event Note: Pt transfer from ICU today, s/p prolonged intuabation, extubated yesterday, he is c/o about lots sera in abdomen. I examined, his abdomen is soft, ND, NT, no guarding. He has subsance depence. Will traat pain and if pain worsen or abdominal exam changes. will consider CT of abdomen. NPO at this time.
--- NOTE | 2021-07-12 17:18 | MHC.SL.SWA ---
Speech Pathologist Impression: Risk of Aspiration Oralpharyngeal Dysphagia Risk of Aspiration Due to: History of Pneumonia Hx of Recent Extubation Dysphasia Diet Status: No Change Liquid Consistency and Strategies for Safe Swallow: Liquid Intake Recommendation: NPO Solid Food Consistency: Dietary Recommendations: NPO Additional Modifications to Solid Foods: Overt s/s of aspiration at bedside. Recommend continue NPO status. Continue oral care- keep head of bed elevated at least 30 degrees to reduce risk of microaspiration. HAND CLOTH CUTTER to re-evaluate tomorrow. , RN, RD notified via [place] Text. Oral Medication Intake: NPO Supervision While Eating and Drinking for Safe Swallow: PO with HAND CLOTH CUTTER Swallowing Recommended Treatments: Compens. Strategy Educat. Recommendation for Speech: Inpatient Speech Therapy Comment: M-F Frequency/Duration: Date Range for Service Req: Timeline to reassess: Secondary Social Studies Teacher Clinican/Clinical Fellow: No Supervisory Statement: I have reviewed and agree with the student/clinical fellow's documentation: N/A Speech Language Pathologist: Emily Garcia M.A., CCC-HAND CLOTH CUTTER
[2021-07-12] MEDS: Morphine Sulfate 2 MG/ML CARTRIDGE IVPUSH (17:29)
[2021-07-12 20:02] LABS: Glucose, Whole Blood 98 mg/dL (60-115)
[2021-07-12] MEDS: hydrALAZINE HCl 20 MG/ML VIAL 10 MG IVPUSH (20:37)
[2021-07-12] MEDS: methylPREDNISolone Sod Succ 40 MG/ML VIAL IVPUSH (20:37)
[2021-07-13] VITALS (7 sets, daily range): BP systolic 144–170; BP diastolic 85–98; PULSE 87–108; RESP 18–24; TEMP 36.1–37.4; O2SAT 92–96; BMI 26.4
[2021-07-13 00:21] LABS: Glucose, Whole Blood 113 mg/dL (60-115)
[2021-07-13] MEDS: Morphine Sulfate 2 MG/ML CARTRIDGE IVPUSH ×4 (03:22→20:46)
[2021-07-13] MEDS: Dextrose 5 % and Lactated Ring 1,000 ML 60 ML IVCONT ×2 (03:23→20:17)
[2021-07-13 05:41] LABS: Glucose, Whole Blood 116 mg/dL (60-115)
[2021-07-13 06:28] LABS: Venous Blood Gas Refer to POC result
[2021-07-13 06:30] LABS: VBG Base Excess 3.1 mmol/L; VBG HCO3 23 mmol/L (22-26); VBG pCO2 23 mmHg; VBG pH 7.59 (7.32-7.43); VBG pO2 144 mmHg
[2021-07-13] MEDS: methylPREDNISolone Sod Succ 40 MG/ML VIAL IVPUSH ×2 (06:40→20:10)
[2021-07-13 06:48] LABS: D Dimer High Sensitivity 2055 NG/ML
[2021-07-13 07:31] LABS: Glucose, Whole Blood 117 mg/dL (60-115)
[2021-07-13 08:01] LABS: Basophils Percent Auto 0.1 % (0-2); Hematocrit 40.2 % (42.0-52.0); Hemoglobin 12.2 g/dl (14.0-18.0); Imm Gran Abs Auto 0.06 X10*3/uL (0.00-0.03); Imm Gran Pct Auto 0.6 % (0.0-0.4); Lymphocytes Absolute Auto 1.1 X10*3/uL (1.2-4.9); Lymphocytes Percent Auto 11.3 % (20-40); Mean Corpuscular HGB Conc 30.3 g/dl (31.0-36.0); Mean Corpuscular Hemoglobin 24.7 pg (27.0-33.0); Mean Corpuscular Volume 81.4 fL (80.0-98.0); Mean Platelet Volume 10.8 fL (9.4-12.4); Monocytes Absolute Auto 0.8 X10*3/uL (0.1-1.2); Monocytes Percent Auto 8.1 % (2-11); Neutrophils Absolute Auto 7.9 x10*3/uL (2.0-8.3); Neutrophils Percent Auto 79.9 % (45-73); Platelet Count 375 X10*3/uL (160-400); Red Blood Count 4.94 X10*6/uL (4.60-5.80); Red Cell Distribution Width 18.5 % (11.0-16.0); White Blood Count 9.9 X10*3/uL (4.8-10.8)
[2021-07-13 08:05] LABS: MANUAL DIFF FLAG NO
[2021-07-13 08:32] LABS: Alanine Aminotransferase 20 U/L (0-40); Albumin Level 3.3 g/dL (3.5-5.0); Alkaline Phosphatase 82 U/L (39-117); Anion Gap 13 (12-20); Aspartate Amino Transferase 15 U/L (5-37); Bilirubin Direct 0.4 mg/dL (0.0-0.5); Bilirubin Total 0.8 mg/dL (0.0-1.0); Blood Urea Nitrogen 33 mg/dL (9-16); C Reactive Protein 0.26 mg/dL (< or = 0.50); Calcium 10.3 mg/dL (8.4-10.2); Carbon Dioxide 24 mmol/L (22-29); Chloride 107 mmol/L (96-108); Creatinine Clr Calc Pharmacy 147.6; Estimated Glomerular Filt Rate > 60; Glucose Random 114 mg/dL (60-115); Lactate Dehydrogenase 241 U/L (118-273); Magnesium 2.3 mg/dL (1.6-2.6); Phosphorus 3.1 mg/dL (2.7-4.5); Potassium 4.2 mmol/L (3.3-5.1); Sodium 140 mmol/L (135-145); Total Protein 6.2 g/dL (6.5-8.0)
[2021-07-13 08:45] LABS: Ferritin 384 ng/mL (20-250)
[2021-07-13] MEDS: Enoxaparin Sodium 40 MG/0.4 ML SYRINGE SUBCUT (10:27)
[2021-07-13] MEDS: 0.9 % Sodium Chloride Flush 3 ML SYRINGE IVFLUSH ×2 (10:28→17:45)
[2021-07-13 11:16] LABS: Glucose, Whole Blood 138 mg/dL (60-115)
--- NOTE | 2021-07-13 11:29 | HO.PM.IMPN ---
Subjective Subjective Date of Service: 07/13/21 Interval History: F/u respiratory failure from covid and cocaine induced lung injury and required prolonged intubation and mechanical ventilation in the ICU for 3 weeks, he has been complaining about abdominal with bening exam Review of Systems no fever, abd pain, no n/v Constitutional Constitutional: Denies chills and Denies fever(s) Cardiovascular Cardiovascular: Denies chest pain and Reports dyspnea Respiratory Respiratory: Reports dyspnea Gastrointestinal Gastrointestinal: Reports abdominal pain Physical Exam Vital Signs: Vital Signs: Last Vital Signs Temp 98.3 F 07/13/21 08:00 Pulse 98 07/13/21 09:52 Resp 24 H 07/13/21 08:00 BP 150/94 H 07/13/21 09:52 Pulse Ox 93 07/13/21 09:52 Oxygen Flow Rate 10 06/15/21 00:21 BMI result Body Mass Index 26.4 Const: Other: General: AO X 2, no acute distress Resp: CTA bilateral CVS: S1,S2,RRR GI: +BS, NT, no distention Skin: No rash Neuro: motor grossly intact Psych: appropriate affect Objective Data Active Medications Acetaminophen (Acetaminophen 325 Mg Tablet) 650 mg OG-TUBE Q6H PRN PRN Reason: Fever Last Admin: 07/11/21 06:20 Dose: 650 mg Documented by: BEATRICE Dextrose (Dextrose 50 % 25 Gm/50 Ml Syringe) 25 gm IVPUSH Q15M PRN PRN Reason: per Hypoglycemia Standing Ord. Last Admin: 07/12/21 02:54 Dose: 25 gm Documented by: SAGE Docusate Sodium (Docusate Sodium 100 Mg Capsule) 100 mg PO DAILY PRN PRN Reason: Constipation Enoxaparin Sodium (Enoxaparin Sodium 40 Mg/0.4 Ml Syringe) 40 mg SUBCUT Q24H [facility] Last Admin: 07/13/21 10:27 Dose: 40 mg Documented by: SAVANNAH Fluvoxamine Maleate (Fluvoxamine Maleate 50 Mg Tablet) 100 mg G-TUBE BID [facility] Last Admin: 07/13/21 08:54 Dose: Not Given Documented by: SAVANNAH Non-Admin Reason: NPO Dextrose/Lactated Ringer's (D5lr) 1,000 mls @ 60 mls/hr IVCONT .[id number] [facility] Last Admin: 07/13/21 03:23 Dose: 60 mls/hr Documented by: YAMILEX Fluconazole 100 mg/ IV (Miscellaneous Supplies) 50 mls @ 50 mls/hr IV Q24H [facility] Last Infusion: 07/12/21 15:19 Dose: 0 mls/hr Documented by: JEANMARIE Insulin Glargine (Insulin Glargine,Hum.Rec.Anlog 100 Unit/Ml 10 Ml Vial) 50 unit SUBCUT BID [facility] Last Admin: 07/13/21 08:55 Dose: Not Given Documented by: SAVANNAH Non-Admin Reason: NPO Insulin Human Lispro (Insulin Lispro 100 Unit/Ml 3 Ml Vial) 0 unit SUBCUT Q6H [facility]; Protocol Last Admin: 07/13/21 06:42 Dose: Not Given Documented by: YAMILEX Non-Malcolm Reason: No Insulin Coverage Methylprednisolone Sodium Succinate (Methylprednisolone Sod Succ 40 Mg/Ml Vial) 40 mg IVPUSH Q12H [facility] Last Admin: 07/13/21 06:40 Dose: 40 mg Documented by: YAMILEX Morphine Sulfate (Morphine Sulfate 2 Mg/Ml Cartridge) 2 mg IVPUSH Q6H PRN; Protocol PRN Reason: Pain, Severe (Pain Scale 7-10) Last Admin: 07/13/21 06:40 Dose: 2 mg Documented by: YAMILEX Omeprazole (Omeprazole 20 Mg/10 Ml Susp.Recon) 40 mg PO DAILY@0630 [facility] Last Admin: 07/13/21 06:42 Dose: Not Given Documented by: YAMILEX Non-Admin Reason: NPO Sodium Chloride (0.9 % Sodium Chloride Flush 3 Ml Syringe) 3 ml IVFLUSH QSHIFT [facility] Last Admin: 07/13/21 10:28 Dose: 3 ml Documented by: SAVANNAH Thiamine HCl (Thiamine Hcl 100 Mg Tablet) 200 mg G-TUBE BID [facility] Last Admin: 07/13/21 08:55 Dose: Not Given Documented by: SAVANNAH Non-Admin Reason: NPO Labs CBC & Chem 7: 07/13/21 07:29 07/13/21 06:16 Labs: Laboratory Results - last 24 hr 07/12/21 07/12/21 07/13/21 16:13 19:58 00:17 MCV MCH MCHC RDW Plt Count MPV Immature Gran % (Auto) Neut % (Auto) Lymph % (Auto) [place] % (Auto) Eos % (Auto) Baso % (Auto) Lymph # (Auto) [place] # (Auto) Eos # (Auto) Baso # (Auto) Abs Immat Gran (auto) Absolute Neuts (auto) Absolute Nucleated RBC Nucleated RBC % (auto) D-Dimer High Sensitivty VBG pH VBG pCO2 VBG pO2 VBG HCO3 VBG O2 Saturation VBG Base Excess Anion Gap Estim Creat Clear Calc Estimated GFR POC Glucose 77 98 113 Random Glucose Calcium Phosphorus Magnesium Ferritin Total Bilirubin Direct Bilirubin AST ALT Alkaline Phosphatase Lactate Dehydrogenase Total Creatine Kinase C-Reactive Protein Total Protein Albumin 07/13/21 07/13/21 07/13/21 05:38 06:16 06:16 MCV MCH MCHC RDW Plt Count MPV Immature Gran % (Auto) Neut % (Auto) Lymph % (Auto) [place] % (Auto) Eos % (Auto) Baso % (Auto) Lymph # (Auto) [place] # (Auto) Eos # (Auto) Baso # (Auto) Abs Immat Gran (auto) Absolute Neuts (auto) Absolute Nucleated RBC Nucleated RBC % (auto) D-Dimer High Sensitivty 2055 VBG pH VBG pCO2 VBG pO2 VBG HCO3 VBG O2 Saturation VBG Base Excess Anion Gap 13 Estim Creat Clear Calc 147.6 Estimated GFR > 60 POC Glucose 116 H Random Glucose 114 D Calcium 10.3 H Phosphorus 3.1 Magnesium 2.3 Ferritin 384 H Total Bilirubin 0.8 Direct Bilirubin 0.4 AST 15 ALT 20 Alkaline Phosphatase 82 Lactate Dehydrogenase 241 Total Creatine Kinase 26 L C-Reactive Protein 0.26 Total Protein 6.2 L Albumin 3.3 L 07/13/21 07/13/21 07/13/21 06:20 07:26 07:29 MCV 81.4 MCH 24.7 L MCHC 30.3 L RDW 18.5 H Plt Count 375 MPV 10.8 Immature Gran % (Auto) 0.6 H Neut % (Auto) 79.9 H Lymph % (Auto) 11.3 L [place] % (Auto) 8.1 Eos % (Auto) 0.0 Baso % (Auto) 0.1 Lymph # (Auto) 1.1 L [place] # (Auto) 0.8 Eos # (Auto) 0.0 Baso # (Auto) 0.0 Abs Immat Gran (auto) 0.06 H Absolute Neuts (auto) 7.9 Absolute Nucleated RBC 0.000 Nucleated RBC % (auto) 0.0 D-Dimer High Sensitivty VBG pH 7.59 H VBG pCO2 23 VBG pO2 144 VBG HCO3 23 VBG O2 Saturation 99.0 VBG Base Excess 3.1 Anion Gap Estim Creat Clear Calc Estimated GFR POC Glucose 117 H Random Glucose Calcium Phosphorus Magnesium Ferritin Total Bilirubin Direct Bilirubin AST ALT Alkaline Phosphatase Lactate Dehydrogenase Total Creatine Kinase C-Reactive Protein Total Protein Albumin 07/13/21 10:54 MCV MCH MCHC RDW Plt Count MPV Immature Gran % (Auto) Neut % (Auto) Lymph % (Auto) [place] % (Auto) Eos % (Auto) Baso % (Auto) Lymph # (Auto) [place] # (Auto) Eos # (Auto) Baso # (Auto) Abs Immat Gran (auto) Absolute Neuts (auto) Absolute Nucleated RBC Nucleated RBC % (auto) D-Dimer High Sensitivty VBG pH VBG pCO2 VBG pO2 VBG HCO3 VBG O2 Saturation VBG Base Excess Anion Gap Estim Creat Clear Calc Estimated GFR POC Glucose 138 H Random Glucose Calcium Phosphorus Magnesium Ferritin Total Bilirubin Direct Bilirubin AST ALT Alkaline Phosphatase Lactate Dehydrogenase Total Creatine Kinase C-Reactive Protein Total Protein Albumin Microbiology Microbiology Results: Microbiology 07/11/21 03:40 Blood Culture - Preliminary Blood - Venous No growth after 48 hours. 07/11/21 03:31 Blood Culture - Preliminary Blood - Venous No growth after 48 hours. 07/10/21 08:30 Gram Stain - Final Sputum - Suctioned Sputum Culture - Final 07/10/21 Unknown Urine Culture - Final Urine Catheterized - Villa Catheter Mayda tropicalis Assessment and Plan (1) Cocaine abuse with intoxication: Status: Acute (2) Pulmonary edema due to chemical: Status: Acute (3) Pneumonia due to COVID-19 virus: Status: Acute Plan 60-year-old moderately obese with history of Crohn's disease on Stelara, prednisone, methotrexate, diabetes who presents to the emergency department with shortness of breath found to have hypoxia and COVID-19 positive on 06/15/21. On 06/19/21 he snorted cocaine in his room and developed precipitous hypoxemia requiring urgent intubation from developing He developed the cocaine lung and cardiac toxicity with combined noncardiogenic as well as cardiogenic pulmonary edema and he remained intubated for 3 weeks and was extubated on 07/11/21 and respiratory status has been stable on room air and transfered to [facility] on 07/12/21. Clinically had secondary nosocomial bacterial pneumonia and currently Mayda tropicalis urinary tract infection and some persistent atelectasis bilaterally but he is nontoxic Acute respiratory failure with hypoxia secondary to COVID-19 pneumonia, cocaine induced noncardiogenic and cardiogenic pulmonary edema that required prolonged intuabation--all resolved at this point, sating well on room air. Abdominal pain--Exam is bening, CT to further assess. He used to be on Stelera and Prednisone for crohn's disease but has been off these for weeks and may need to be reevaluated by GI to restart these. Abdominal pain is likely part of his chronic pain. He is on solumedrol now, change to Prednisone. Morphine for pain Mood--used to be on Remeron, Paxil but now on Luvox HTN--BP is ok, used to be on Lisinopril has not been on it for weeks now, consider restarting Diabetes--was on glyburide at home, continue holding. Continue Lantus and SSI Mayda tropicalis UTI--Continue Diflucan Diet: nutrition recommends Puree, thin Liquid--will do this after CT DVT prophylaxis -Lovenox Code status -full code Attending-Dr. Becerril move out of covid isolation if repeat test negative Quality Stroke Does the patient have a stroke diagnosis?: No VTE Prior VTE?: No VTE Risk Level:: Medical - moderate - high VTE Device Contraindication: N/A - Device Ordered VTE Drug Contraindication: N/A - Med Ordered
--- NOTE | 2021-07-13 11:30 | MHC.SL.SWA ---
Addendum entered and electronically signed by Renetta Brandt MA, CCC-WELDING MACHINE OPERATOR GAS METAL ARC 07/13/21 17:11: The Dietary Recommendations should read:Puree NO ADDITIONAL MODIFICATIONS needed (the details contained here-in pre-populated from last note and were not deleted by this clinician) Original Note: Speech Pathologist Impression: Oral Phase Dysphagia Risk of Aspiration Due to: Hx of Recent Extubation Dysphasia Diet Status: Upgrade Liquid Consistency and Strategies for Safe Swallow: Liquid Intake Recommendation: Thin Liquid Intake Strategies: Small Sips Solid Food Consistency: Dietary Recommendations: Pureed (NDD1) Additional Modifications to Solid Foods: Overt s/s of aspiration at bedside. Recommend continue NPO status. Continue oral care- keep head of bed elevated at least 30 degrees to reduce risk of microaspiration. WELDING MACHINE OPERATOR GAS METAL ARC to re-evaluate tomorrow. MD, RN, RD notified via [place] Text. Oral Medication Intake: Crushed with Puree Compensatory Strategies and Precautions to be Taken for Safe Swallow: Sitting Upright (90 deg) Liquids from Cup Liquids from Straw Small Bites and Sips Alternate Liquids/Solids Oral Check Supervision While Eating and Drinking for Safe Swallow: Total Assistance Foods to Avoid: Swallowing Recommended Treatments: Compens. Strategy Educat. Recommendation for Speech: Inpatient Speech Therapy Comment: follow-up with WELDING MACHINE OPERATOR GAS [employer] ARC daily for toleration and upgrade as needed. Frequency/Duration: m-f while inpatient Date Range for Service Req: Timeline to reassess: Follow for what appears to be thrush Curriculum Manager Clinican/Clinical Fellow: No Supervisory Statement: I have reviewed and agree with the student/clinical fellow's documentation: N/A Speech Language Pathologist: Renetta Brandt M.A., CCC-WELDING MACHINE OPERATOR [employer] ARC
[2021-07-13] MEDS: iohexoL 350 MG/ML 100 ML INFUS..BTL IV (12:27)
[2021-07-13] MEDS: Fluconazole in NaCl,Iso-Osm 100 MG in Container,Empty 0 ML 50 MG IV (13:25)
[2021-07-13 14:09] LABS: COVID-19 Test Negative (Negative)
--- NOTE | 2021-07-13 15:13 | MHC.CLN ---
F/U DIET ADVANCED TO PUREED BOILER ERECTOR FOLLOWING FOR APPROPRIATE CONSISTENCY RECOMMEND 2200DM LOW FIBER DIET R/T HX DM, CROHN'S/COLITIS AND LOOSE STOOLS PRIOR TO EXTUBATION IN ADDITION, WILL ADD GLUCERNA BID TO INCREASE KCALS AND PROMOTE WOUND HEALING MONITOR PO INTAKE CLOSELY
[2021-07-13 16:09] LABS: Glucose, Whole Blood 148 mg/dL (60-115)
[2021-07-13 19:41] LABS: Glucose, Whole Blood 143 mg/dL (60-115)
[2021-07-13] MEDS: fluvoxaMINE Maleate 50 MG TABLET 100 MG G-TUBE (20:10)
[2021-07-13] MEDS: Thiamine HCL 100 MG TABLET 200 MG G-TUBE (20:10)
[2021-07-13 23:23] LABS: Glucose, Whole Blood 144 mg/dL (60-115)
[2021-07-14] MEDS: 0.9 % Sodium Chloride Flush 3 ML SYRINGE IVFLUSH ×4 (01:23→23:55)
[2021-07-14 03:16] VITALS: BP 151/96; PULSE 88; RESP 20; TEMP 36.1; O2SAT 95
[2021-07-14 05:24] VITALS: BMI 26.6
[2021-07-14] MEDS: methylPREDNISolone Sod Succ 40 MG/ML VIAL IVPUSH (05:33)
[2021-07-14] MEDS: Morphine Sulfate 2 MG/ML CARTRIDGE IVPUSH ×2 (05:33→17:21)
[2021-07-14 06:29] LABS: Glucose, Whole Blood 194 mg/dL (60-115)
[2021-07-14] MEDS: Insulin Lispro 100 UNIT/ML 3 ML VIAL SUBCUT ×3 (06:51→17:22)
[2021-07-14 07:10] LABS: MANUAL DIFF FLAG NO
[2021-07-14 07:14] LABS: Venous Blood Gas Refer to POC result
[2021-07-14 07:15] LABS: VBG Base Excess 4.2 mmol/L; VBG HCO3 27 mmol/L (22-26); VBG pCO2 35 mmHg; VBG pH 7.49 (7.32-7.43); VBG pO2 60 mmHg
[2021-07-14 07:18] LABS: Hematocrit 37.4 % (42.0-52.0); Hemoglobin 11.4 g/dl (14.0-18.0); Imm Gran Abs Auto 0.04 X10*3/uL (0.00-0.03); Imm Gran Pct Auto 0.5 % (0.0-0.4); Lymphocytes Absolute Auto 0.4 X10*3/uL (1.2-4.9); Lymphocytes Percent Auto 5.2 % (20-40); Mean Corpuscular HGB Conc 30.5 g/dl (31.0-36.0); Mean Corpuscular Hemoglobin 25.1 pg (27.0-33.0); Mean Corpuscular Volume 82.4 fL (80.0-98.0); Mean Platelet Volume 9.5 fL (9.4-12.4); Monocytes Absolute Auto 0.5 X10*3/uL (0.1-1.2); Monocytes Percent Auto 6.3 % (2-11); Neutrophils Absolute Auto 6.4 x10*3/uL (2.0-8.3); Platelet Count 411 X10*3/uL (160-400); Red Blood Count 4.54 X10*6/uL (4.60-5.80); Red Cell Distribution Width 18.1 % (11.0-16.0); White Blood Count 7.3 X10*3/uL (4.8-10.8)
[2021-07-14 07:30] LABS: Alanine Aminotransferase 21 U/L (0-40); Albumin Level 3.4 g/dL (3.5-5.0); Alkaline Phosphatase 83 U/L (39-117); Anion Gap 11 (12-20); Aspartate Amino Transferase 12 U/L (5-37); Bilirubin Direct 0.4 mg/dL (0.0-0.5); Blood Urea Nitrogen 33 mg/dL (9-16); C Reactive Protein 0.21 mg/dL (< or = 0.50); Calcium 10.3 mg/dL (8.4-10.2); Carbon Dioxide 28 mmol/L (22-29); Chloride 106 mmol/L (96-108); Creatinine Clr Calc Pharmacy 138.6; D Dimer High Sensitivity 2074 NG/ML; Estimated Glomerular Filt Rate > 60; Glucose Random 206 mg/dL (60-115); Lactate Dehydrogenase 238 U/L (118-273); Phosphorus 3.1 mg/dL (2.7-4.5); Potassium 4.3 mmol/L (3.3-5.1); Sodium 141 mmol/L (135-145); Total Protein 6.2 g/dL (6.5-8.0)
[2021-07-14 07:51] VITALS: BP 160/105; PULSE 96; RESP 17; TEMP 38; O2SAT 92
[2021-07-14 08:11] LABS: Ferritin 360 ng/mL (20-250)
--- NOTE | 2021-07-14 09:47 | P.PNIM_ITS ---
Subjective Subjective Date of Service: 07/15/21 Interval History: F/u respiratory failure from covid and cocaine induced lung injury and required prolonged intubation and mechanical ventilation in the ICU for 3 weeks, he has been complaining about abdominal with bening exam Review of Systems no fever, abd pain, no n/v Physical Exam Verdana 4l Vital Signs: Verdana 4d Verdana 4d Vital Signs: Verdana 4d Verdana 4Bd Last Vital Signs Verdana 4d Bowling Teacher New 4d Bowling Teacher New 4d Temp 100.4 F 07/14/21 07:51 Bowling Teacher New 4d Pulse 96 07/14/21 07:51 Bowling Teacher New 4d Resp 17 07/14/21 07:51 BP 160/105 H 07/14/21 07:51 Pulse Ox 92 07/14/21 07:51 Oxygen Flow Rate 10 06/15/21 00:21 BMI result Body Mass Index 26.6 Const: Other: General: AO X 2, no acute distress Resp: CTA bilateral CVS: S1,S2,RRR GI: +BS, NT, no distention Skin: No rash Neuro: motor grossly intact Psych: appropriate affect Objective Data Active Medications Acetaminophen (Acetaminophen 325 Mg Tablet) 650 mg OG-TUBE Q6H PRN PRN Reason: Fever Last Admin: 07/11/21 06:20 Dose: 650 mg Documented by: BEATRICE Dextrose (Dextrose 50 % 25 Gm/50 Ml Syringe) 25 gm IVPUSH Q15M PRN PRN Reason: per Hypoglycemia Standing Ord. Last Admin: 07/12/21 02:54 Dose: 25 gm Documented by: SAGE Docusate Sodium (Docusate Sodium 100 Mg Capsule) 100 mg PO DAILY PRN PRN Reason: Constipation Enoxaparin Sodium (Enoxaparin Sodium 40 Mg/0.4 Ml Syringe) 40 mg SUBCUT Q24H [facility] Last Admin: 07/13/21 10:27 Dose: 40 mg Documented by: SAVANNAH Fluvoxamine Maleate (Fluvoxamine Maleate 50 Mg Tablet) 100 mg G-TUBE BID [facility] Last Admin: 07/13/21 20:10 Dose: 100 mg Documented by: HANDY Dextrose/Lactated Ringer's (D5lr) 1,000 mls @ 60 mls/hr IVCONT .[id number] [facility] Last Admin: 07/13/21 20:17 Dose: 60 mls/hr Documented by: HANDY Fluconazole 100 mg/ IV (Miscellaneous Supplies) 50 mls @ 50 mls/hr IV Q24H [facility] Last Infusion: 07/13/21 15:25 Dose: 0 mls/hr Documented by: SAVANNAH Insulin Glargine (Insulin Glargine,Hum.Rec.Anlog 100 Unit/Ml 10 Ml Vial) 50 unit SUBCUT BID [facility] Last Admin: 07/13/21 20:10 Dose: Not Given Documented by: HANDY Non-Admin Reason: refused food Insulin Human Lispro (Insulin Lispro 100 Unit/Ml 3 Ml Vial) 0 unit SUBCUT Q6H [facility]; Protocol Last Admin: 07/14/21 06:51 Dose: 5 unit Documented by: ELIDA Methylprednisolone Sodium Succinate (Methylprednisolone Sod Succ 40 Mg/Ml Vial) 40 mg IVPUSH Q12H [facility] Last Admin: 07/14/21 05:33 Dose: 40 mg Documented by: ELIDA Morphine Sulfate (Morphine Sulfate 2 Mg/Ml Cartridge) 2 mg IVPUSH Q6H PRN; Protocol PRN Reason: Pain, Severe (Pain Scale 7-10) Last Admin: 07/14/21 05:33 Dose: 2 mg Documented by: ELIDA Omeprazole (Omeprazole 20 Mg/10 Ml Susp.Recon) 40 mg PO DAILY@0630 [facility] Last Admin: 07/14/21 05:32 Dose: 40 mg Documented by: ELIDA Sodium Chloride (0.9 % Sodium Chloride Flush 3 Ml Syringe) 3 ml IVFLUSH QSHIFT [facility] Last Admin: 07/14/21 01:23 Dose: 3 ml Documented by: ELIDA Thiamine HCl (Thiamine Hcl 100 Mg Tablet) 200 mg G-TUBE BID [facility] Last Admin: 07/13/21 20:10 Dose: 200 mg Documented by: HANDY Labs CBC & Chem 7: 07/15/21 06:15 07/15/21 06:15 Labs: Laboratory Results - last 24 hr 07/13/21 07/13/21 07/13/21 10:54 13:30 16:05 MCV MCH MCHC RDW Plt Count MPV Immature Gran % (Auto) Neut % (Auto) Lymph % (Auto) [place] % (Auto) Eos % (Auto) Baso % (Auto) Lymph # (Auto) [place] # (Auto) Eos # (Auto) Baso # (Auto) Abs Immat Gran (auto) Absolute Neuts (auto) Absolute Nucleated RBC Nucleated RBC % (auto) D-Dimer High Sensitivty VBG pH VBG pCO2 VBG pO2 VBG HCO3 VBG O2 Saturation VBG Base Excess Anion Gap Estim Creat Clear Calc Estimated GFR POC Glucose 138 H 148 H Random Glucose Calcium Phosphorus Magnesium Ferritin Total Bilirubin Direct Bilirubin AST ALT Alkaline Phosphatase Lactate Dehydrogenase Total Creatine Kinase C-Reactive Protein Total Protein Albumin COVID-19 (KRISTOPHER) Negative COVID-19 Clin Com See Note 07/13/21 07/13/21 07/14/21 19:38 23:19 06:26 MCV MCH MCHC RDW Plt Count MPV Immature Gran % (Auto) Neut % (Auto) Lymph % (Auto) [place] % (Auto) Eos % (Auto) Baso % (Auto) Lymph # (Auto) [place] # (Auto) Eos # (Auto) Baso # (Auto) Abs Immat Gran (auto) Absolute Neuts (auto) Absolute Nucleated RBC Nucleated RBC % (auto) D-Dimer High Sensitivty VBG pH VBG pCO2 VBG pO2 VBG HCO3 VBG O2 Saturation VBG Base Excess Anion Gap Estim Creat Clear Calc Estimated GFR POC Glucose 143 H 144 H 194 H Random Glucose Calcium Phosphorus Magnesium Ferritin Total Bilirubin Direct Bilirubin AST ALT Alkaline Phosphatase Lactate Dehydrogenase Total Creatine Kinase C-Reactive Protein Total Protein Albumin COVID-19 (KRISTOPHER) COVID-19 [employer] 07/14/21 07/14/21 07/14/21 06:59 06:59 06:59 MCV 82.4 MCH 25.1 L MCHC 30.5 L RDW 18.1 H Plt Count 411 H MPV 9.5 Immature Gran % (Auto) 0.5 H Neut % (Auto) 88.0 H Lymph % (Auto) 5.2 L [place] % (Auto) 6.3 Eos % (Auto) 0.0 Baso % (Auto) 0.0 Lymph # (Auto) 0.4 L [place] # (Auto) 0.5 Eos # (Auto) 0.0 Baso # (Auto) 0.0 Abs Immat Gran (auto) 0.04 H Absolute Neuts (auto) 6.4 Absolute Nucleated RBC 0.000 Nucleated RBC % (auto) 0.0 D-Dimer High Sensitivty 2074 VBG pH VBG pCO2 VBG pO2 VBG HCO3 VBG O2 Saturation VBG Base Excess Anion Gap 11 L Estim Creat Clear Calc 138.6 Estimated GFR > 60 POC Glucose Random Glucose 206 H D Calcium 10.3 H Phosphorus 3.1 Magnesium 2.0 Ferritin 360 H Total Bilirubin 1.0 Direct Bilirubin 0.4 AST 12 ALT 21 Alkaline Phosphatase 83 Lactate Dehydrogenase 238 Total Creatine Kinase 18 L C-Reactive Protein 0.21 Total Protein 6.2 L Albumin 3.4 L COVID-19 (KRISTOPHER) COVID-19 Clin Com 07/14/21 07:09 MCV MCH MCHC RDW Plt Count MPV Immature Gran % (Auto) Neut % (Auto) Lymph % (Auto) [place] % (Auto) Eos % (Auto) Baso % (Auto) Lymph # (Auto) [place] # (Auto) Eos # (Auto) Baso # (Auto) Abs Immat Gran (auto) Absolute Neuts (auto) Absolute Nucleated RBC Nucleated RBC % (auto) D-Dimer High Sensitivty VBG pH 7.49 H VBG pCO2 35 VBG pO2 60 VBG HCO3 27 H VBG O2 Saturation 88.0 VBG Base Excess 4.2 Anion Gap Estim Creat Clear Calc Estimated GFR POC Glucose Random Glucose Calcium Phosphorus Magnesium Ferritin Total Bilirubin Direct Bilirubin AST ALT Alkaline Phosphatase Lactate Dehydrogenase Total Creatine Kinase C-Reactive Protein Total Protein Albumin COVID-19 (KRISTOPHER) COVID-19 Clin Com Microbiology Microbiology Results: Microbiology 07/11/21 03:40 Blood Culture - Preliminary Blood - Venous No growth after 48 hours. 07/11/21 03:31 Blood Culture - Preliminary Blood - Venous No growth after 48 hours. Assessment and Plan (1) Cocaine abuse with intoxication: Status: Acute (2) Pulmonary edema due to chemical: Status: Acute (3) Pneumonia due to COVID-19 virus: Status: Acute Plan 60-year-old moderately obese with history of Crohn's disease on Stelara, prednisone, methotrexate, diabetes who presents to the emergency department with shortness of breath found to have hypoxia and COVID-19 positive on 06/15/21. On 06/19/21 he snorted cocaine in his room and developed precipitous hypoxemia requiring urgent intubation from developing He developed the cocaine lung and cardiac toxicity with combined noncardiogenic as well as cardiogenic pulmonary edema and he remained intubated for 3 weeks and was extubated on 07/11/21 and respiratory status has been stable on room air and transfered to [facility] on 07/12/21. Clinically had secondary nosocomial bacterial pneumonia and currently C andida tropicalis urinary tract infection and some persistent atelectasis bilaterally but he is nontoxic Acute respiratory failure with hypoxia secondary to COVID-19 pneumonia, cocaine induced noncardiogenic and cardiogenic pulmonary edema that required prolonged intuabation--all resolved at this point, sating well on room air. No longer need covid isolation. Abdominal pain--Exam is bening, CT shows non obstructing kidney stone, i don't think it is the source of pain. He used to be on Stelera and Prednisone for crohn's disease but has been off these for weeks and may need to be reevaluated by GI to restart these. Abdominal pain is likely part of his chronic pain. He is on solumedrol now, change to Prednisone. Morphine for pain Mood--used to be on Remeron, Paxil but now on Luvox HTN--BP is ok, used to be on Lisinopril has not been on it for weeks now, consider restarting Diabetes--was on glyburide at home, continue holding. Continue Lantus and SSI Mayda tropicalis UTI--Continue Diflucan Diet: nutrition recommends Puree, thin Liquid--will do this after CT DVT prophylaxis -Lovenox Code status -full code Attending-Dr. Becerril move out of covid isolation if repeat test negative Quality Stroke Does the patient have a stroke diagnosis?: No VTE Prior VTE?: No VTE Risk Level:: Medical - moderate - high VTE Device Contraindication: N/A - Device Ordered VTE Drug Contraindication: N/A - Med Ordered
[2021-07-14] MEDS: Enoxaparin Sodium 40 MG/0.4 ML SYRINGE SUBCUT (10:07)
[2021-07-14] MEDS: fluvoxaMINE Maleate 50 MG TABLET 100 MG G-TUBE (10:08)
[2021-07-14] MEDS: Thiamine HCL 100 MG TABLET 200 MG G-TUBE (10:08)
[2021-07-14 11:44] VITALS: BP 172/111; PULSE 95; RESP 19; TEMP 36.3; O2SAT 95
[2021-07-14 11:53] LABS: Glucose, Whole Blood 196 mg/dL (60-115)
[2021-07-14] MEDS: Dextrose 5 % and Lactated Ring 1,000 ML 60 ML IVCONT (12:23)
[2021-07-14] MEDS: Fluconazole in NaCl,Iso-Osm 100 MG in Container,Empty 0 ML 50 MG IV (14:01)
[2021-07-14 15:16] VITALS: BP 159/98; PULSE 78; RESP 20; TEMP 36.7; O2SAT 93
[2021-07-14 16:07] LABS: Glucose, Whole Blood 237 mg/dL (60-115)
[2021-07-14 19:14] VITALS: BP 165/91; PULSE 91; RESP 20; TEMP 36.7; O2SAT 96
[2021-07-14 19:41] LABS: Glucose, Whole Blood 198 mg/dL (60-115)
--- NOTE | 2021-07-14 19:51 | PC.NURSE ---
08:00 Pt wakefield 16 macanese draining dark yellow urine with some pink/brown sediment at proximal end of catheter. Irrigated wakefield with 60 ml NS and removed pink-brown sediment. [place] became more patent and drained yellow urine freely. Monitored output this shift. 16:00-17:00 pt had 15 mL output total. Attempted to irrigate wakefield again but could not instill fluid. Bladder scanned 163 ml urine. Catheter balloon deflated, catheter advanced slightly and reinflated balloon. With advancing catheter, urine flowed around sides of catheter. Nursing maternity floor supervisor came to bedside to assess. Balloon deflated to remove wakefield and met resistance. MD notified and urologist notified to assess pt catheter. 19:00 passed on to next nurse and will follow up with
[2021-07-14] MEDS: Insulin Glargine,Hum.rec.anlog 100 UNIT/ML 10 ML VIAL 50 UNIT SUBCUT (22:24)
[2021-07-14 23:40] VITALS: BP 129/70; PULSE 75; RESP 18; TEMP 36.4; O2SAT 95
[2021-07-15] MEDS: Morphine Sulfate 2 MG/ML CARTRIDGE IVPUSH ×3 (00:55→22:05)
[2021-07-15 01:06] LABS: Glucose, Whole Blood 98 mg/dL (60-115)
[2021-07-15 03:29] VITALS: BP 152/76; PULSE 96; RESP 22; TEMP 36.8; O2SAT 92
[2021-07-15] MEDS: Dextrose 5 % and Lactated Ring 1,000 ML 60 ML IVCONT (04:29)
[2021-07-15 05:59] VITALS: BMI 26.4
[2021-07-15 06:04] LABS: Glucose, Whole Blood 68 mg/dL (60-115)
[2021-07-15 06:22] LABS: MANUAL DIFF FLAG NO
[2021-07-15 06:23] LABS: Basophils Percent Auto 0.1 % (0-2); Eosinophils Percent Auto 0.1 % (0-4); Hematocrit 37.5 % (42.0-52.0); Hemoglobin 11.5 g/dl (14.0-18.0); Imm Gran Abs Auto 0.04 X10*3/uL (0.00-0.03); Imm Gran Pct Auto 0.3 % (0.0-0.4); Lymphocytes Absolute Auto 1.5 X10*3/uL (1.2-4.9); Lymphocytes Percent Auto 13.1 % (20-40); Mean Corpuscular HGB Conc 30.7 g/dl (31.0-36.0); Mean Corpuscular Hemoglobin 25.3 pg (27.0-33.0); Mean Corpuscular Volume 82.4 fL (80.0-98.0); Mean Platelet Volume 9.8 fL (9.4-12.4); Monocytes Absolute Auto 0.9 X10*3/uL (0.1-1.2); Monocytes Percent Auto 7.3 % (2-11); Neutrophils Absolute Auto 9.2 x10*3/uL (2.0-8.3); Neutrophils Percent Auto 79.1 % (45-73); Platelet Count 374 X10*3/uL (160-400); Red Blood Count 4.55 X10*6/uL (4.60-5.80); Red Cell Distribution Width 17.9 % (11.0-16.0); White Blood Count 11.6 X10*3/uL (4.8-10.8)
[2021-07-15 06:25] LABS: Venous Blood Gas Refer to POC result
[2021-07-15 06:25] LABS: VBG Base Excess 7.3 mmol/L; VBG HCO3 31 mmol/L (22-26); VBG pCO2 44 mmHg; VBG pH 7.46 (7.32-7.43); VBG pO2 38 mmHg
[2021-07-15 06:30] LABS: D Dimer High Sensitivity 3635 NG/ML
[2021-07-15 06:39] LABS: Alanine Aminotransferase 23 U/L (0-40); Albumin Level 3.2 g/dL (3.5-5.0); Alkaline Phosphatase 78 U/L (39-117); Anion Gap 9 (12-20); Aspartate Amino Transferase 14 U/L (5-37); Bilirubin Direct 0.4 mg/dL (0.0-0.5); Bilirubin Total 1.1 mg/dL (0.0-1.0); Blood Urea Nitrogen 28 mg/dL (9-16); C Reactive Protein 0.18 mg/dL (< or = 0.50); Calcium 10.5 mg/dL (8.4-10.2); Carbon Dioxide 31 mmol/L (22-29); Chloride 105 mmol/L (96-108); Creatinine Clr Calc Pharmacy 152.5; Estimated Glomerular Filt Rate > 60; Glucose Random 95 mg/dL (60-115); Lactate Dehydrogenase 224 U/L (118-273); Magnesium 1.9 mg/dL (1.6-2.6); Phosphorus 2.4 mg/dL (2.7-4.5); Potassium 3.7 mmol/L (3.3-5.1); Sodium 141 mmol/L (135-145); Total Protein 5.8 g/dL (6.5-8.0)
[2021-07-15 07:00] LABS: Ferritin 254 ng/mL (20-250)
[2021-07-15 08:00] VITALS: BP 158/95; PULSE 83; RESP 18; TEMP 36; O2SAT 96
[2021-07-15 08:12] LABS: Glucose, Whole Blood 96 mg/dL (60-115)
--- NOTE | 2021-07-15 10:20 | HO.PM.IMPN ---
Subjective Subjective Date of Service: 07/15/21 Interval History: F/u respiratory failure from covid and cocaine induced lung injury and required prolonged intubation and mechanical ventilation in the ICU for 3 weeks, he has been complaining about abdominal with bening exam, pain is much better and apparently has chronic pain Review of Systems no fever or chills, abd pain is better Physical Exam Vital Signs: Vital Signs: Last Vital Signs Temp 96.8 F 07/15/21 08:00 Pulse 83 07/15/21 08:00 Resp 18 07/15/21 08:00 BP 158/95 H 07/15/21 08:00 Pulse Ox 96 07/15/21 08:00 Oxygen Flow Rate 10 06/15/21 00:21 BMI result Body Mass Index 26.4 Const: Other: General: AO X 2, no acute distress Resp: CTA bilateral CVS: S1,S2,RRR GI: +BS, NT, no distention Skin: No rash Neuro: motor grossly intact Psych: appropriate affect Objective Data Active Medications Acetaminophen (Acetaminophen 325 Mg Tablet) 650 mg OG-TUBE Q6H PRN PRN Reason: Fever Last Admin: 07/11/21 06:20 Dose: 650 mg Documented by: BEATRICE Dextrose (Dextrose 50 % 25 Gm/50 Ml Syringe) 25 gm IVPUSH Q15M PRN PRN Reason: per Hypoglycemia Standing Ord. Last Admin: 07/12/21 02:54 Dose: 25 gm Documented by: SAGE Docusate Sodium (Docusate Sodium 100 Mg Capsule) 100 mg PO DAILY PRN PRN Reason: Constipation Enoxaparin Sodium (Enoxaparin Sodium 40 Mg/0.4 Ml Syringe) 40 mg SUBCUT Q24H [facility] Last Admin: 07/14/21 10:07 Dose: 40 mg Documented by: LUZ ELENA Fluvoxamine Maleate (Fluvoxamine Maleate 50 Mg Tablet) 100 mg G-TUBE BID [facility] Last Admin: 07/14/21 22:24 Dose: Not Given Documented by: IDALIA Non-Admin Reason: Not following commands Dextrose/Lactated Ringer's (D5lr) 1,000 mls @ 60 mls/hr IVCONT .[id number] [facility] Last Admin: 07/15/21 04:29 Dose: 60 mls/hr Documented by: ELIDA Fluconazole 100 mg/ IV (Miscellaneous Supplies) 50 mls @ 50 mls/hr IV Q24H [facility] Last Infusion: 07/14/21 15:10 Dose: 0 mls/hr Documented by: LUZ ELENA Insulin Glargine (Insulin Glargine,Hum.Rec.Anlog 100 Unit/Ml 10 Ml Vial) 50 unit SUBCUT BID [facility] Last Admin: 07/14/21 22:24 Dose: 50 unit Documented by: IDALIA Insulin Human Lispro (Insulin Lispro 100 Unit/Ml 3 Ml Vial) 0 unit SUBCUT Q6H [facility]; Protocol Last Admin: 07/15/21 06:20 Dose: Not Given Documented by: ELIDA Non-Admin Reason: No Insulin Coverage Morphine Sulfate (Morphine Sulfate 2 Mg/Ml Cartridge) 2 mg IVPUSH Q6H PRN; Protocol PRN Reason: Pain, Severe (Pain Scale 7-10) Last Admin: 07/15/21 00:55 Dose: 2 mg Documented by: ELIDA Omeprazole (Omeprazole 20 Mg/10 Ml Susp.Recon) 40 mg PO DAILY@0630 [facility] Last Admin: 07/15/21 05:53 Dose: 40 mg Documented by: ELIDA Prednisone (Prednisone 10 Mg Tablet) 10 mg PO DAILY [facility] Sodium Chloride (0.9 % Sodium Chloride Flush 3 Ml Syringe) 3 ml IVFLUSH QSHIFT [facility] Last Admin: 07/14/21 23:55 Dose: 3 ml Documented by: ELIDA Thiamine HCl (Thiamine Hcl 100 Mg Tablet) 200 mg G-TUBE BID [facility] Last Admin: 07/14/21 22:24 Dose: Not Given Documented by: IDALIA Non-Admin Reason: Not following commands Labs CBC & Chem 7: 07/15/21 06:15 07/15/21 06:15 Labs: Laboratory Results - last 24 hr 07/14/21 07/14/21 07/14/21 11:50 16:03 19:38 MCV MCH MCHC RDW Plt Count MPV Immature Gran % (Auto) Neut % (Auto) Lymph % (Auto) [place] % (Auto) Eos % (Auto) Baso % (Auto) Lymph # (Auto) [place] # (Auto) Eos # (Auto) Baso # (Auto) Abs Immat Gran (auto) Absolute Neuts (auto) Absolute Nucleated RBC Nucleated RBC % (auto) D-Dimer High Sensitivty VBG pH VBG pCO2 VBG pO2 VBG HCO3 VBG O2 Saturation VBG Base Excess Anion Gap Estim Creat Clear Calc Estimated GFR POC Glucose 196 H 237 H 198 H Random Glucose Calcium Phosphorus Magnesium Ferritin Total Bilirubin Direct Bilirubin AST ALT Alkaline Phosphatase Lactate Dehydrogenase Total Creatine Kinase C-Reactive Protein Total Protein Albumin 07/15/21 07/15/21 07/15/21 01:00 05:57 06:15 MCV 82.4 MCH 25.3 L MCHC 30.7 L RDW 17.9 H Plt Count 374 MPV 9.8 Immature Gran % (Auto) 0.3 Neut % (Auto) 79.1 H Lymph % (Auto) 13.1 L [place] % (Auto) 7.3 Eos % (Auto) 0.1 Baso % (Auto) 0.1 Lymph # (Auto) 1.5 [place] # (Auto) 0.9 Eos # (Auto) 0.0 Baso # (Auto) 0.0 Abs Immat Gran (auto) 0.04 H Absolute Neuts (auto) 9.2 H Absolute Nucleated RBC 0.000 Nucleated RBC % (auto) 0.0 D-Dimer High Sensitivty VBG pH VBG pCO2 VBG pO2 VBG HCO3 VBG O2 Saturation VBG Base Excess Anion Gap Estim Creat Clear Calc Estimated GFR POC Glucose 98 68 Random Glucose Calcium Phosphorus Magnesium Ferritin Total Bilirubin Direct Bilirubin AST ALT Alkaline Phosphatase Lactate Dehydrogenase Total Creatine Kinase C-Reactive Protein Total Protein Albumin 07/15/21 07/15/21 07/15/21 06:15 06:15 06:20 MCV MCH MCHC RDW Plt Count MPV Immature Gran % (Auto) Neut % (Auto) Lymph % (Auto) [place] % (Auto) Eos % (Auto) Baso % (Auto) Lymph # (Auto) [place] # (Auto) Eos # (Auto) Baso # (Auto) Abs Immat Gran (auto) Absolute Neuts (auto) Absolute Nucleated RBC Nucleated RBC % (auto) D-Dimer High Sensitivty 3635 VBG pH 7.46 H VBG pCO2 44 VBG pO2 38 VBG HCO3 31 H VBG O2 Saturation 58.0 VBG Base Excess 7.3 Anion Gap 9 L Estim Creat Clear Calc 152.5 Estimated GFR > 60 POC Glucose Random Glucose 95 D Calcium 10.5 H Phosphorus 2.4 L Magnesium 1.9 Ferritin 254 H Total Bilirubin 1.1 H Direct Bilirubin 0.4 AST 14 ALT 23 Alkaline Phosphatase 78 Lactate Dehydrogenase 224 Total Creatine Kinase 17 L C-Reactive Protein 0.18 Total Protein 5.8 L Albumin 3.2 L 07/15/21 08:06 MCV MCH MCHC RDW Plt Count MPV Immature Gran % (Auto) Neut % (Auto) Lymph % (Auto) [place] % (Auto) Eos % (Auto) Baso % (Auto) Lymph # (Auto) [place] # (Auto) Eos # (Auto) Baso # (Auto) Abs Immat Gran (auto) Absolute Neuts (auto) Absolute Nucleated RBC Nucleated RBC % (auto) D-Dimer High Sensitivty VBG pH VBG pCO2 VBG pO2 VBG HCO3 VBG O2 Saturation VBG Base Excess Anion Gap Estim Creat Clear Calc Estimated GFR POC Glucose 96 Random Glucose Calcium Phosphorus Magnesium Ferritin Total Bilirubin Direct Bilirubin AST ALT Alkaline Phosphatase Lactate Dehydrogenase Total Creatine Kinase C-Reactive Protein Total Protein Albumin Assessment and Plan (1) Cocaine abuse with intoxication: Status: Acute (2) Pulmonary edema due to chemical: Status: Acute (3) Pneumonia due to COVID-19 virus: Status: Acute Plan 60-year-old moderately obese with history of Crohn's disease on Stelara, prednisone, methotrexate, diabetes who presents to the emergency department with shortness of breath found to have hypoxia and COVID-19 positive on 06/15/21. On 06/19/21 he snorted cocaine in his room and developed precipitous hypoxemia requiring urgent intubation from developing He developed the cocaine lung and cardiac toxicity with combined noncardiogenic as well as cardiogenic pulmonary edema and he remained intubated for 3 weeks and was extubated on 07/11/21 and respiratory status has been stable on room air and transfered to [facility] on 07/12/21. Clinically had secondary nosocomial bacterial pneumonia and currently Mayda tropicalis urinary tract infection and some persistent atelectasis bilaterally but he is nontoxic Acute respiratory failure with hypoxia secondary to COVID-19 pneumonia, cocaine induced noncardiogenic and cardiogenic pulmonary edema that required prolonged intuabation--all resolved at this point, sating well on room air. No longer need covid isolation. Abdominal pain--Exam is bening, CT shows non obstructing kidney stone, i don't think it is the source of pain. He used to be on Stelera and Prednisone for crohn's disease but has been off these for weeks and may need to be reevaluated by GI to restart these. Abdominal pain is likely part of his chronic pain. He is on solumedrol now, change to Prednisone. Morphine for pain transition to oxycodone Mood--used to be on Remeron, Paxil but now on Luvox HTN--BP is ok, used to be on Lisinopril has not been on it for weeks now, consider restarting Diabetes--was on glyburide at home, continue holding. Continue Lantus and SSI Mayda tropicalis UTI--Continue Diflucan Diet: nutrition recommends Puree, thin Liquid--will do this after CT DVT prophylaxis -Rebeccax Code status -full code Attending-Dr. Becerril move out of covid isolation if repeat test negative Quality Stroke Does the patient have a stroke diagnosis?: No VTE Prior VTE?: No VTE Risk Level:: Medical - moderate - high VTE Device Contraindication: N/A - Device Ordered VTE Drug Contraindication: N/A - Med Ordered
[2021-07-15] MEDS: Enoxaparin Sodium 40 MG/0.4 ML SYRINGE SUBCUT (10:28)
[2021-07-15] MEDS: fluvoxaMINE Maleate 50 MG TABLET 100 MG G-TUBE ×2 (10:29→22:02)
[2021-07-15] MEDS: 0.9 % Sodium Chloride Flush 3 ML SYRINGE IVFLUSH ×3 (10:29→22:06)
[2021-07-15] MEDS: Thiamine HCL 100 MG TABLET 200 MG G-TUBE ×2 (10:29→22:02)
[2021-07-15] MEDS: predniSONE 10 MG TABLET PO (10:30)
[2021-07-15 11:24] VITALS: BP 168/115; PULSE 111; RESP 17; TEMP 36.6; O2SAT 96
[2021-07-15 11:30] LABS: Glucose, Whole Blood 110 mg/dL (60-115)
[2021-07-15] MEDS: Fluconazole in NaCl,Iso-Osm 100 MG in Container,Empty 0 ML 50 MG IV (14:56)
[2021-07-15 15:58] VITALS: BP 145/73; PULSE 89; RESP 16; TEMP 36.6; O2SAT 96
[2021-07-15 16:29] LABS: Glucose, Whole Blood 137 mg/dL (60-115)
[2021-07-15 19:24] VITALS: BP 157/85; PULSE 82; RESP 14; TEMP 36.7; O2SAT 94
[2021-07-15 20:35] LABS: Glucose, Whole Blood 109 mg/dL (60-115)
[2021-07-15 22:05] VITALS: RESP 18
[2021-07-16] VITALS (8 sets, daily range): BP systolic 133–183; BP diastolic 69–98; PULSE 81–121; RESP 18–20; TEMP 36.2–36.9; O2SAT 90–95; BMI 26.8
[2021-07-16] MEDS: Morphine Sulfate 2 MG/ML CARTRIDGE IVPUSH (02:44)
[2021-07-16 06:17] LABS: MANUAL DIFF FLAG NO
[2021-07-16 06:21] LABS: Eosinophils Absolute Auto 0.1 X10*3/uL (0.0-0.4); Eosinophils Percent Auto 0.9 % (0-4); Hematocrit 38.7 % (42.0-52.0); Hemoglobin 11.8 g/dl (14.0-18.0); Imm Gran Abs Auto 0.07 X10*3/uL (0.00-0.03); Imm Gran Pct Auto 0.6 % (0.0-0.4); Lymphocytes Absolute Auto 1.8 X10*3/uL (1.2-4.9); Lymphocytes Percent Auto 14.2 % (20-40); Mean Corpuscular HGB Conc 30.5 g/dl (31.0-36.0); Mean Corpuscular Hemoglobin 25.1 pg (27.0-33.0); Mean Corpuscular Volume 82.3 fL (80.0-98.0); Mean Platelet Volume 9.5 fL (9.4-12.4); Monocytes Absolute Auto 0.7 X10*3/uL (0.1-1.2); Monocytes Percent Auto 5.6 % (2-11); Neutrophils Absolute Auto 9.7 x10*3/uL (2.0-8.3); Neutrophils Percent Auto 78.7 % (45-73); Platelet Count 389 X10*3/uL (160-400); Red Cell Distribution Width 18.1 % (11.0-16.0); White Blood Count 12.3 X10*3/uL (4.8-10.8)
[2021-07-16 06:22] LABS: VBG Base Excess 9.3 mmol/L; VBG HCO3 32 mmol/L (22-26); VBG pCO2 36 mmHg; VBG pH 7.54 (7.32-7.43); VBG pO2 43 mmHg
[2021-07-16 06:24] LABS: Venous Blood Gas Refer to POC result
[2021-07-16 06:34] LABS: D Dimer High Sensitivity 3883 NG/ML
[2021-07-16 06:55] LABS: Alanine Aminotransferase 27 U/L (0-40); Albumin Level 3.1 g/dL (3.5-5.0); Alkaline Phosphatase 86 U/L (39-117); Anion Gap 12 (12-20); Aspartate Amino Transferase 18 U/L (5-37); Bilirubin Direct 0.5 mg/dL (0.0-0.5); Bilirubin Total 1.2 mg/dL (0.0-1.0); Blood Urea Nitrogen 19 mg/dL (9-16); Carbon Dioxide 29 mmol/L (22-29); Chloride 103 mmol/L (96-108); Creatinine Clr Calc Pharmacy 155.1; Estimated Glomerular Filt Rate > 60; Glucose Random 95 mg/dL (60-115); Magnesium 1.9 mg/dL (1.6-2.6); Phosphorus 2.8 mg/dL (2.7-4.5); Potassium 3.3 mmol/L (3.3-5.1); Sodium 141 mmol/L (135-145); Total Protein 5.7 g/dL (6.5-8.0)
[2021-07-16 06:59] LABS: Lactate Dehydrogenase 254 U/L (118-273)
[2021-07-16 07:08] LABS: Ferritin 331 ng/mL (20-250)
[2021-07-16 07:13] LABS: Glucose, Whole Blood 99 mg/dL (60-115)
[2021-07-16] MEDS: Enoxaparin Sodium 40 MG/0.4 ML SYRINGE SUBCUT (09:32)
[2021-07-16] MEDS: predniSONE 10 MG TABLET PO (09:33)
[2021-07-16] MEDS: Thiamine HCL 100 MG TABLET 200 MG G-TUBE ×2 (09:33→21:26)
[2021-07-16] MEDS: fluvoxaMINE Maleate 50 MG TABLET 100 MG G-TUBE ×2 (09:33→21:26)
[2021-07-16] MEDS: Insulin Glargine,Hum.rec.anlog 100 UNIT/ML 10 ML VIAL 50 UNIT SUBCUT (09:33)
[2021-07-16] MEDS: 0.9 % Sodium Chloride Flush 3 ML SYRINGE IVFLUSH (09:33)
--- NOTE | 2021-07-16 10:39 | P.PNIM_ITS ---
Subjective Subjective Date of Service: 07/16/21 Interval History: F/u respiratory failure from covid and cocaine induced lung injury and required prolonged intubation and mechanical ventilation in the ICU for 3 weeks, he has been complaining about abdominal with bening--Pain is well controlled today Review of Systems no fever or chills, abd pain is better Physical Exam Verdana 4l Vital Signs: Verdana 4d Verdana 4d Vital Signs: Verdana 4d Verdana 4Bd Last Vital Signs Verdana 4d Industrial Property Appraiser New 4d Industrial Property Appraiser New 4d Temp 97.2 F 07/16/21 08:00 Industrial Property Appraiser New 4d Pulse 116 H 07/16/21 08:00 Industrial Property Appraiser New 4d Resp 20 07/16/21 08:00 BP 146/72 H 07/16/21 08:00 Pulse Ox 90 L 07/16/21 08:00 Oxygen Flow Rate 10 06/15/21 00:21 BMI result Body Mass Index 26.8 Const: Other: General: AO X 2, no acute distress Resp: CTA bilateral CVS: S1,S2,RRR GI: +BS, NT, no distention Skin: No rash Neuro: motor grossly intact Psych: appropriate affect Objective Data Active Medications Acetaminophen (Acetaminophen 325 Mg Tablet) 650 mg OG-TUBE Q6H PRN PRN Reason: Fever Last Admin: 07/11/21 06:20 Dose: 650 mg Documented by: BEATRICE Dextrose (Dextrose 50 % 25 Gm/50 Ml Syringe) 25 gm IVPUSH Q15M PRN PRN Reason: per Hypoglycemia Standing Ord. Last Admin: 07/12/21 02:54 Dose: 25 gm Documented by: SAGE Docusate Sodium (Docusate Sodium 100 Mg Capsule) 100 mg PO DAILY PRN PRN Reason: Constipation Enoxaparin Sodium (Enoxaparin Sodium 40 Mg/0.4 Ml Syringe) 40 mg SUBCUT Q24H [facility] Last Admin: 07/16/21 09:32 Dose: 40 mg Documented by: ANT Fluvoxamine Maleate (Fluvoxamine Maleate 50 Mg Tablet) 100 mg G-TUBE BID [facility] Last Admin: 07/16/21 09:33 Dose: 100 mg Documented by: ANT Fluconazole 100 mg/ IV (Miscellaneous Supplies) 50 mls @ 50 mls/hr IV Q24H [facility] Last Infusion: 07/15/21 16:16 Dose: 0 mls/hr Documented by: LUZ ELENA Insulin Glargine (Insulin Glargine,Hum.Rec.Anlog 100 Unit/Ml 10 Ml Vial) 50 unit SUBCUT BID [facility] Last Admin: 07/16/21 09:33 Dose: 50 unit Documented by: ANT Insulin Human Lispro (Insulin Lispro 100 Unit/Ml 3 Ml Vial) 0 unit SUBCUT Q6H [facility]; Protocol Last Admin: 07/16/21 07:17 Dose: Not Given Documented by: ANT Non-Admin Reason: No Insulin Coverage Morphine Sulfate (Morphine Sulfate 2 Mg/Ml Cartridge) 2 mg IVPUSH Q6H PRN; Protocol PRN Reason: Pain, Severe (Pain Scale 7-10) Last Admin: 07/16/21 02:44 Dose: 2 mg Documented by: LOIS Omeprazole (Omeprazole 20 Mg/10 Ml Susp.Recon) 40 mg PO DAILY@0630 [facility] Last Admin: 07/16/21 06:16 Dose: 40 mg Documented by: LOIS Prednisone (Prednisone 10 Mg Tablet) 10 mg PO DAILY [facility] Last Admin: 07/16/21 09:33 Dose: 10 mg Documented by: ANT Sodium Chloride (0.9 % Sodium Chloride Flush 3 Ml Syringe) 3 ml IVFLUSH QSHIFT [facility] Last Admin: 07/16/21 09:33 Dose: 3 ml Documented by: ANT Thiamine HCl (Thiamine Hcl 100 Mg Tablet) 200 mg G-TUBE BID [facility] Last Admin: 07/16/21 09:33 Dose: 200 mg Documented by: ANT Labs CBC & Chem 7: 07/16/21 06:12 07/16/21 06:12 Labs: Laboratory Results - last 24 hr 07/15/21 07/15/21 07/15/21 11:23 16:02 20:29 MCV MCH MCHC RDW Plt Count MPV Immature Gran % (Auto) Neut % (Auto) Lymph % (Auto) [place] % (Auto) Eos % (Auto) Baso % (Auto) Lymph # (Auto) [place] # (Auto) Eos # (Auto) Baso # (Auto) Abs Immat Gran (auto) Absolute Neuts (auto) Absolute Nucleated RBC Nucleated RBC % (auto) D-Dimer High Sensitivty VBG pH VBG pCO2 VBG pO2 VBG HCO3 VBG O2 Saturation VBG Base Excess Anion Gap Estim Creat Clear Calc Estimated GFR POC Glucose 110 137 H 109 Random Glucose Calcium Phosphorus Magnesium Ferritin Total Bilirubin Direct Bilirubin AST ALT Alkaline Phosphatase Lactate Dehydrogenase Total Creatine Kinase Total Protein Albumin 07/16/21 07/16/21 07/16/21 06:12 06:12 06:12 MCV 82.3 MCH 25.1 L MCHC 30.5 L RDW 18.1 H Plt Count 389 MPV 9.5 Immature Gran % (Auto) 0.6 H Neut % (Auto) 78.7 H Lymph % (Auto) 14.2 L [place] % (Auto) 5.6 Eos % (Auto) 0.9 Baso % (Auto) 0.0 Lymph # (Auto) 1.8 [place] # (Auto) 0.7 Eos # (Auto) 0.1 Baso # (Auto) 0.0 Abs Immat Gran (auto) 0.07 H Absolute Neuts (auto) 9.7 H Absolute Nucleated RBC 0.000 Nucleated RBC % (auto) 0.0 D-Dimer High Sensitivty 3883 VBG pH VBG pCO2 VBG pO2 VBG HCO3 VBG O2 Saturation VBG Base Excess Anion Gap 12 Estim Creat Clear Calc 155.1 Estimated GFR > 60 POC Glucose Random Glucose 95 Calcium 10.0 Phosphorus 2.8 Magnesium 1.9 Ferritin 331 H Total Bilirubin 1.2 H Direct Bilirubin 0.5 AST 18 ALT 27 Alkaline Phosphatase 86 Lactate Dehydrogenase 254 Total Creatine Kinase 18 L Total Protein 5.7 L Albumin 3.1 L 07/16/21 07/16/21 06:15 07:08 MCV MCH MCHC RDW Plt Count MPV Immature Gran % (Auto) Neut % (Auto) Lymph % (Auto) [place] % (Auto) Eos % (Auto) Baso % (Auto) Lymph # (Auto) [place] # (Auto) Eos # (Auto) Baso # (Auto) Abs Immat Gran (auto) Absolute Neuts (auto) Absolute Nucleated RBC Nucleated RBC % (auto) D-Dimer High Sensitivty VBG pH 7.54 H VBG pCO2 36 VBG pO2 43 VBG HCO3 32 H VBG O2 Saturation 71.0 VBG Base Excess 9.3 Anion Gap Estim Creat Clear Calc Estimated GFR POC Glucose 99 Random Glucose Calcium Phosphorus Magnesium Ferritin Total Bilirubin Direct Bilirubin AST ALT Alkaline Phosphatase Lactate Dehydrogenase Total Creatine Kinase Total Protein Albumin Microbiology Microbiology Results: Microbiology 07/11/21 03:40 Blood Culture - Final Blood - Venous No growth after 5 days. 07/11/21 03:31 Blood Culture - Final Blood - Venous No growth after 5 days. Assessment and Plan (1) Cocaine abuse with intoxication: Status: Acute (2) Pulmonary edema due to chemical: Status: Acute (3) Pneumonia due to COVID-19 virus: Status: Acute Plan 60-year-old moderately obese with history of Crohn's disease on Stelara, prednisone, methotrexate, diabetes who presents to the emergency department with shortness of breath found to have hypoxia and COVID-19 positive on 06/15/21. On 06/19/21 he snorted cocaine in his room and developed precipitous hypoxemia requiring urgent intubation from developing He developed the cocaine lung and cardiac toxicity with combined noncardiogenic as well as cardiogenic pulmonary edema and he remained intubated for 3 weeks and was extubated on 07/11/21 and respiratory status has been stable on room air and transfered to [facility] on 07/12/21. Clinically had secondary nosocomial bacterial pneumonia and currently Mayda tropicalis urinary tract infection and some persistent atelectasis bilaterally but he is nontoxic Acute respiratory failure with hypoxia secondary to COVID-19 pneumonia, cocaine induced noncardiogenic and cardiogenic pulmonary edema that required prolonged intuabation--all resolved at this point, sating well on room air. No longer need covid isolation. Abdominal pain--Exam is bening, CT shows non obstructing kidney stone, i don't think it is the source of pain. He used to be on Stelera and Prednisone for crohn's disease but has been off these for weeks and may need to be reevaluated by GI to restart these. Abdominal pain is likely part of his chronic pain. He is on solumedrol now, change to Prednisone. Morphine for pain transition to oxycodone Mood--used to be on Remeron, Paxil but now on Luvox HTN--BP is ok, used to be on Lisinopril has not been on it for weeks now, consider restarting Diabetes--was on glyburide at home, continue holding. Continue Lantus and SSI Mayda tropicalis UTI--Continue Diflucan Diet: nutrition recommends Puree, thin Liquid--will do this after CT DVT prophylaxis -Lovenox Code status -full code To short term rehab Quality Stroke Does the patient have a stroke diagnosis?: No VTE Prior VTE?: No VTE Risk Level:: Medical - moderate - high VTE Device Contraindication: N/A - Device Ordered VTE Drug Contraindication: N/A - Med Ordered
[2021-07-16 11:07] LABS: Glucose, Whole Blood 234 mg/dL (60-115)
--- NOTE | 2021-07-16 11:12 | MHC.CLN ---
F/U VERY POOR PO INTAKE DIET RX: 2200DM LOW RESIDUE PUREED-APPROPRIATE PHOTOGRAPH ENLARGER FOLLOWING FOR APPROPRIATE CONSISTENCY PT RECEIVING GLUCERNA BID TO INCREASE KCALS AND PROMOTE WOUND HEALING SUPP PROVIDES 474KCALS, 20G PROTEIN WITH 100% ACCEPTANCE MONITOR PO INTAKE CLOSELY
--- NOTE | 2021-07-16 11:46 | MHC.CM.PN ---
Per ROUNDS discussion, Patient is ready for dc pending SNF bed availability. Broad SNF search is in progress and CM will follow for dc planning.
[2021-07-16] MEDS: Insulin Lispro 100 UNIT/ML 3 ML VIAL SUBCUT (11:47)
[2021-07-16] MEDS: Fluconazole in NaCl,Iso-Osm 100 MG in Container,Empty 0 ML 50 MG IV (13:56)
--- NOTE | 2021-07-16 15:44 | MHC.SLORD ---
Speech Language Pathology Order Status: MOVIE SHOT CAMERAMAN attempted to see patient for dysphagia treatment- Patient sleeping. Patient is on pureed solids (NDD1) and thin liquids. Will continue to follow to assess for potential upgrade.
[2021-07-16 16:16] LABS: Glucose, Whole Blood 69 mg/dL (60-115)
[2021-07-16 20:03] LABS: Glucose, Whole Blood 82 mg/dL (60-115)
[2021-07-17] VITALS (8 sets, daily range): BP systolic 115–141; BP diastolic 78–94; PULSE 77–108; RESP 17–20; TEMP 36.1–36.6; O2SAT 92–95; BMI 26.8
[2021-07-17] MEDS: 0.9 % Sodium Chloride Flush 3 ML SYRINGE IVFLUSH ×4 (00:25→21:11)
[2021-07-17] MEDS: Acetaminophen 325 MG TABLET 650 MG OG-TUBE (06:09)
[2021-07-17 07:26] LABS: Glucose, Whole Blood 62 mg/dL (60-115)
[2021-07-17 08:26] LABS: Glucose, Whole Blood 69 mg/dL (60-115)
[2021-07-17] MEDS: predniSONE 10 MG TABLET PO (09:22)
[2021-07-17] MEDS: fluvoxaMINE Maleate 50 MG TABLET 100 MG G-TUBE ×2 (09:23→21:10)
[2021-07-17] MEDS: Thiamine HCL 100 MG TABLET 200 MG G-TUBE ×2 (09:23→21:06)
[2021-07-17] MEDS: Docusate Sodium 100 MG CAPSULE PO ×2 (09:24→21:06)
[2021-07-17] MEDS: polyethylene glycoL 3350 17 GM POWD.PACK PO (09:27)
[2021-07-17] MEDS: Enoxaparin Sodium 40 MG/0.4 ML SYRINGE SUBCUT (09:29)
[2021-07-17] MEDS: oxyCODONE HCl Immed Release 5 MG TABLET PO (09:32)
--- NOTE | 2021-07-17 10:06 | PM.GICN ---
History of Present Illness Data of Consult Service Date: 07/17/21 Requesting physician: Curtis Coleman Primary Care Provider: Luke Kamara MD HPI Reason for consult: crohns omar 60 YM with diabetes, Crohn's disease, hypertension, CKD, renal stone, thalamic pain syndrome, and tubular adenoma of colon who I am seeing for assessment for crohns he has had protracted hospital stay > 1 month. Initially admitted with hypoxix respiratory failure from COVId and cocaine use requiring intubation and vent management for about 3 weeks. Further care was complicated by nosocomial bacterial pneumonia and Mayda tropicalis urinary tract infection. Plan now is for d/c to SnF but needs his crohns disease meds restarted. Right now he is delirious, thinks his son is with him but nobody else is in room, and he is semi naked having pulled off his clothes. he denies any abdominal pain, nausea or vomiting. needs frequent redirecting during questioning. From crohns standpoint he had been on MTX and stelara. This was being prescribed by GI at [facility]. When I saw him in the office last I had requested the notes, but still not received. Per prior documentation there had been discussion about proctocolectomy if stelara failed. he has rectal tube right now, and stool looks normal brown color without blood or mucous. CT doen recently without evidence of active IBD, renal stones noted with vertebral fractures Review of Systems Review of Systems: Constitutional : No Weight loss, No Fever, No Chills ENT/Mouth : No sore throat, No Rhinorrhea Eyes: No Swelling, No Redness Cardiovascular : No Chest Pain, No SOB, No Edema Respiratory : +sob Gastrointestinal : see HPI Genitourinary : NO Dysuria, No Urinary Frequency, No Hematuria, No Urgency Musculoskeletal : No joint pain, No Myalgias, No Joint Swelling Skin : No Skin Lesions, No rash Neuro : No Weakness, No Numbness, No Dizziness, No Headache Psych : No Anxiety/Panic, No Depression Heme/Lymph: No Bruising, No Lymphadenopathy Endocrine : No Polyuria, No Polydipsia All other systems reviewed and are negative. [facility] Past Medical History Medical History (Updated 07/17/21 @ 15:37 by Tad Kaur MD) Acute promyelocytic leukemia (~08/2016) Anxiety Asthma Chronic idiopathic constipation Colitis (~2002) Crohn disease (~2002) Depression Diabetes 1.5, managed as type 1 Diarrhea Elevated serum glutamic pyruvic transaminase (SGPT) level History of subarachnoid hemorrhage (~08/2016) Hypertension Kidney disease Left sided abdominal pain Morbid obesity Renal stones 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) Family History Family history: reviewed and not pertinent Surgical History Surgical History History of bone marrow biopsy (~2016) History of cholecystectomy (~2011) History of colonoscopy (~2020) History of esophagogastroduodenoscopy (EGD) (~2020) History of hemorrhoidectomy (~2003) History of lithotripsy (~2017) History of rectal sphincterotomy (~2003) History of right knee surgery (~2016) History of surgery on right wrist (~2006) Social History Social History Household Members: Family Housing: Apartment Do you presently have visiting nurse or other home services: No Alcohol intake: never Patient Tobacco Use Status: Never used Tobacco e-Cigarette/Vaping Use: Never Used Second Hand Smoke Exposure: No Advance Directives Date on File: 04/04/21 service: No Current occupational status: disabled Meds Allergies Allergy/AdvReac Type Severity Reaction Status Date / Time lorazepam [From Ativan] AdvReac Severe AGITATION Verified 06/20/21 00:19 ? EDEMA none Allergy Unknown Unknown Uncoded 04/02/21 16:05 Active Medications: Current Medications Acetaminophen (Acetaminophen 325 Mg Tablet) 650 mg OG-TUBE Q6H PRN PRN Reason: Fever Last Admin: 07/17/21 06:09 Dose: 650 mg Documented by: Dextrose (Dextrose 50 % 25 Gm/50 Ml Syringe) 25 gm IVPUSH Q15M PRN PRN Reason: per Hypoglycemia Standing Ord. Last Admin: 07/12/21 02:54 Dose: 25 gm Documented by: Docusate Sodium (Docusate Sodium 100 Mg Capsule) 100 mg PO DAILY PRN PRN Reason: Constipation Docusate Sodium (Docusate Sodium 100 Mg Capsule) 100 mg PO BEDTIME LADONNA Last Admin: 07/17/21 09:24 Dose: 100 mg Documented by: Enoxaparin Sodium (Enoxaparin Sodium 40 Mg/0.4 Ml Syringe) 40 mg SUBCUT Q24H [facility] Last Admin: 07/17/21 09:29 Dose: 40 mg Documented by: Fluvoxamine Maleate (Fluvoxamine Maleate 50 Mg Tablet) 100 mg G-TUBE BID [facility] Last Admin: 07/17/21 09:23 Dose: 100 mg Documented by: Fluconazole 100 mg/ IV (Miscellaneous Supplies) 50 mls @ 50 mls/hr IV Q24H [facility] Last Infusion: 07/16/21 16:21 Dose: Infused Documented by: Insulin Glargine (Insulin Glargine,Hum.Rec.Anlog 100 Unit/Ml 10 Ml Vial) 50 unit SUBCUT BID [facility] Last Admin: 07/17/21 09:34 Dose: Not Given Documented by: Insulin Human Lispro (Insulin Lispro 100 Unit/Ml 3 Ml Vial) 0 unit SUBCUT Q6H [facility]; Protocol Last Admin: 07/17/21 06:15 Dose: Not Given Documented by: Omeprazole (Omeprazole 20 Mg/10 Ml Susp.Recon) 40 mg PO DAILY@0630 [facility] Last Admin: 07/17/21 06:08 Dose: 40 mg Documented by: Oxycodone HCl (Oxycodone Hcl Immed Release 5 Mg Tablet) 5 mg PO Q6H PRN PRN Reason: Pain, Mild (Pain Scale 1-3) Last Admin: 07/17/21 09:32 Dose: 5 mg Documented by: Polyethylene Glycol (Polyethylene Glycol 3350 17 Gm Powd.Pack) 17 gm PO DAILY [facility] Last Admin: 07/17/21 09:27 Dose: 17 gm Documented by: Prednisone (Prednisone 10 Mg Tablet) 10 mg PO DAILY [facility] Last Admin: 07/17/21 09:22 Dose: 10 mg Documented by: Sodium Chloride (0.9 % Sodium Chloride Flush 3 Ml Syringe) 3 ml IVFLUSH QSHIFT [facility] Last Admin: 07/17/21 09:30 Dose: 3 ml Documented by: Thiamine HCl (Thiamine Hcl 100 Mg Tablet) 200 mg G-TUBE BID [facility] Last Admin: 07/17/21 09:23 Dose: 200 mg Documented by: Home Medications Medication Instructions Recorded Confirmed Last Taken Type glyburide 5 mg tablet 5 mg PO BID 03/22/20 06/15/21 05/14/21 History lisinopril 5 mg tablet 5 mg PO DAILY 03/22/20 06/15/21 05/14/21 History mirtazapine 30 mg tablet 30 mg PO BEDTIME 03/22/20 06/15/21 05/14/21 History folic acid 1 mg tablet 1 mg PO DAILY 02/14/21 06/15/21 05/14/21 History melatonin 5 mg tablet 1 tab PO BEDTIME PRN 02/14/21 06/15/21 05/14/21 History paroxetine HCl 40 mg tablet 40 mg PO DAILY 02/14/21 06/15/21 06/01/21 09:00 History hydroxyzine pamoate 50 mg capsule 100 mg PO BEDTIME PRN 04/02/21 06/15/21 05/14/21 History ustekinumab 90 mg/mL subcutaneous 90 mg SUBCUT Q8W 04/02/21 06/15/21 05/13/21 History syringe (Stelara) methotrexate sodium 2.5 mg tablet 25 mg PO Q7D 05/15/21 06/15/21 05/08/21 History prednisone 10 mg tablet 4 tab PO DAILY 06/02/21 06/15/21 Unknown History doxycycline monohydrate 100 mg 1 tab PO BID 06/15/21 06/15/21 Unknown History tablet Physical Exam Vital Signs: Vital Signs: Last Vital Signs Temp 97.2 F 07/17/21 08:00 Pulse 108 H 07/17/21 08:55 Resp 20 07/17/21 08:00 BP 141/89 H 07/17/21 08:55 Pulse Ox 93 07/17/21 08:55 Oxygen Flow Rate 10 06/15/21 00:21 BMI result Body Mass Index 26.8 EXAM: GENERAL: The patient is agitated, [place] cath and rectal tube in place, delirious VITAL SIGNS:see workflow HEENT: Nonicteric sclerae, PERRLA, EOMI. Oropharynx clear. Moist mucous membranes. Conjunctivae appear well perfused. No thyroid mass. CHEST: Chest wall is nontender. HEART: Regular rate and rhythm without murmurs. LUNGS: Clear to auscultation bilaterally. ABDOMEN: Soft, positive bowel sounds, nontender, no organomegaly.no flank tenderness SKIN: No rash, no excessive bruising, petechiae, or purpura. NEUROLOGIC: Cranial nerves II-XII intact without motor/sensory deficit. psych- agitated, mild confusion Extrem: General: Yes normal to inspection and Yes capillary refill normal Results Labs CBC & Chem 7: 07/16/21 06:12 07/16/21 06:12 Microbiology Microbiology Results: Microbiology 07/11/21 03:40 Blood - Venous Blood Culture - Final No growth after 5 days. 07/11/21 03:31 Blood - Venous Blood Culture - Final No growth after 5 days. 07/10/21 08:30 Sputum - Suctioned Gram Stain - Final 07/10/21 08:30 Sputum - Suctioned Sputum Culture - Final 07/10/21 Unknown Urine Catheterized - [place] Catheter Urine Culture - Final Mayda tropicalis 06/21/21 Unknown Urine Catheterized - [place] Catheter Urine Culture - Final Escherichia coli 06/21/21 13:06 Sputum - Suctioned Gram Stain - Final 06/21/21 13:06 Sputum - Suctioned Sputum Culture - Final Escherichia coli 06/20/21 15:30 Sputum - Suctioned Gram Stain - Final 06/20/21 15:30 Sputum - Suctioned Sputum Culture - Final Escherichia coli 06/15/21 00:51 Blood - Venous Blood Culture - Final No growth after 5 days. 06/15/21 00:50 Blood - Venous Blood Culture - Final No growth after 5 days. Assessment and Plan (1) Colitis: Status: Acute (2) Crohn disease: Qualifiers: Gastrointestinal tract location: large intestine Digestive disease complication type: with rectal bleeding Qualified Code(s): K50.111 - Crohn's disease of large intestine with rectal bleeding Status: Acute Plan 1/ Crohns disease, clinically seems inactive at this time, recovering from acute hypoxic resp failure from covid and cocaine use, still has delirium, prob critical illness related. PLAN: 1/ taper off steroids as quickly a possible as can worsen delirium, also he probably has osteporosis given he guillen vertebral fractures 2/ restart stelara and methotrexate, I will ask my nurse to find out when last dose was given by his pharmacy 3/ multivitamins, incl zinc supplementation, Vit D and calcium 4/o/p osteporosis management Procedures Date of Service Date of Service: 07/17/21
[2021-07-17 11:01] LABS: Glucose, Whole Blood 81 mg/dL (60-115)
--- NOTE | 2021-07-17 12:26 | MHC.SL.SWA ---
Speech Pathologist Impression: Oral Phase Dysphagia Risk of Aspiration Due to: Hx of Recent Extubation Dysphasia Diet Status: Upgrade Liquid Consistency and Strategies for Safe Swallow: Liquid Intake Recommendation: Thin Liquid Intake Strategies: Small Sips Solid Food Consistency: Dietary Recommendations: Pureed (NDD1) Additional Modifications to Solid Foods: Oral Medication Intake: Crushed with Puree Compensatory Strategies and Precautions to be Taken for Safe Swallow: Sitting Upright (90 deg) Liquids from Cup Alternate Liquids/Solids Supervision While Eating and Drinking for Safe Swallow: Total Supervision (1:1) Foods to Avoid: Swallowing Recommended Treatments: Compens. Strategy Educat. Recommendation for Speech: Inpatient Speech Therapy Comment: Pt seen this a.m. to assess toleration of recommended diet, re-assess swallow. Pt had just completed breakfast, did not want to participate in swallow trials. Pt reported that he had eaten eggs and had a Glucerna for Breakfast, did not have much appetite. Pt was observed taking meds from nursing, first in puree, w/ good oral transit of tsp amount, swallow initiated after mild delay. Pt was observed taking tablet w/sip of liquid from straw, w/ timely initiation of swallow noted, no clinical s/s aspiration. Recommend continue on current diet of Puree (NDD1) w/ THIN liquids, PILLS Crushed in PUREE when possible (pills administered w/ water today could not be crushed, done w/ recommendation of SUPERVISOR MOLD YARD and direct observation). Frequency/Duration: m-f while inpatient Date Range for Service Req: Timeline to reassess: Remote Broadcast Engineer Clinican/Clinical Fellow: No Supervisory Statement: I have reviewed and agree with the student/clinical fellow's documentation: N/A Speech Language Pathologist: Renita Martel M.A., CCC-SUPERVISOR MOLD YARD
--- NOTE | 2021-07-17 12:44 | MHC.CM.PN ---
BROAD SNF SEARCH has been extended into the [place] area (Barriers appear to be Covid (+) status, question of when next Stelara injection is due, and Patient's Cocaine use while here at [facility]).CM will continue to follow.
--- NOTE | 2021-07-17 13:04 | PC.NURSE ---
Skin/wound assessment completed today. Patient has a stage 2 to coccyx area-Triad applied covered with foam dressing. Patient also has a small pressure injury from the rectal tube- Triad applied covered with foam. No other skin issues noted a this time.
--- NOTE | 2021-07-17 13:24 | PC.NURSE ---
Rectal tube removed at 1320 per MD order.
[2021-07-17] MEDS: Fluconazole in NaCl,Iso-Osm 100 MG in Container,Empty 0 ML 50 MG IV (14:35)
--- NOTE | 2021-07-17 16:05 | HO.PM.IMPN ---
Subjective Subjective Date of Service: 07/17/21 Interval History: F/u respiratory failure from covid and cocaine induced lung injury and required prolonged intubation and mechanical ventilation in the ICU for 3 weeks, Review of Systems abd pain seems to be improving denies any chest pain or shortness of breath or fever or chills or cough or phlegm. Physical Exam Vital Signs: Vital Signs: Last Vital Signs Temp 97.2 F 07/17/21 15:24 Pulse 80 07/17/21 15:24 Resp 18 07/17/21 15:24 BP 138/84 07/17/21 15:24 Pulse Ox 93 07/17/21 15:24 Oxygen Flow Rate 10 06/15/21 00:21 BMI result Body Mass Index 26.8 General: AO X 2, no acute distress Resp:? CTA bilateral CVS: S1,S2,RRR GI: +BS, NT, no distention Skin: No rash Neuro:? motor grossly intact Psych: appropriate affect Objective Data Active Medications Acetaminophen (Acetaminophen 325 Mg Tablet) 650 mg OG-TUBE Q6H PRN PRN Reason: Fever Last Admin: 07/17/21 06:09 Dose: 650 mg Documented by: SAGE Dextrose (Dextrose 50 % 25 Gm/50 Ml Syringe) 25 gm IVPUSH Q15M PRN PRN Reason: per Hypoglycemia Standing Ord. Last Admin: 07/12/21 02:54 Dose: 25 gm Documented by: SAGE Docusate Sodium (Docusate Sodium 100 Mg Capsule) 100 mg PO DAILY PRN PRN Reason: Constipation Docusate Sodium (Docusate Sodium 100 Mg Capsule) 100 mg PO BEDTIME [facility] Last Admin: 07/17/21 09:24 Dose: 100 mg Documented by: GURDEEP Enoxaparin Sodium (Enoxaparin Sodium 40 Mg/0.4 Ml Syringe) 40 mg SUBCUT Q24H [facility] Last Admin: 07/17/21 09:29 Dose: 40 mg Documented by: GURDEEP Fluvoxamine Maleate (Fluvoxamine Maleate 50 Mg Tablet) 100 mg G-TUBE BID [facility] Last Admin: 07/17/21 09:23 Dose: 100 mg Documented by: GURDEEP Fluconazole 100 mg/ IV (Miscellaneous Supplies) 50 mls @ 50 mls/hr IV Q24H [facility] Last Admin: 07/17/21 14:35 Dose: 50 mls/hr Documented by: GURDEEP Insulin Glargine (Insulin Glargine,Hum.Rec.Anlog 100 Unit/Ml 10 Ml Vial) 50 unit SUBCUT BID [facility] Last Admin: 07/17/21 09:34 Dose: Not Given Documented by: GURDEEP Non-Admin Reason: low POC Insulin Human Lispro (Insulin Lispro 100 Unit/Ml 3 Ml Vial) 0 unit SUBCUT Q6H [facility]; Protocol Last Admin: 07/17/21 13:30 Dose: Not Given Documented by: GURDEEP Non-Admin Reason: No Insulin Coverage Omeprazole (Omeprazole 20 Mg/10 Ml Susp.Recon) 40 mg PO DAILY@0630 [facility] Last Admin: 07/17/21 06:08 Dose: 40 mg Documented by: SGAE Oxycodone HCl (Oxycodone Hcl Immed Release 5 Mg Tablet) 5 mg PO Q6H PRN PRN Reason: Pain, Mild (Pain Scale 1-3) Last Admin: 07/17/21 09:32 Dose: 5 mg Documented by: GURDEEP Polyethylene Glycol (Polyethylene Glycol 3350 17 Gm Powd.Pack) 17 gm PO DAILY [facility] Last Admin: 07/17/21 09:27 Dose: 17 gm Documented by: GURDEEP Prednisone (Prednisone 10 Mg Tablet) 10 mg PO DAILY [facility] Last Admin: 07/17/21 09:22 Dose: 10 mg Documented by: GURDEEP Sodium Chloride (0.9 % Sodium Chloride Flush 3 Ml Syringe) 3 ml IVFLUSH QSHIFT [facility] Last Admin: 07/17/21 09:30 Dose: 3 ml Documented by: GURDEEP Thiamine HCl (Thiamine Hcl 100 Mg Tablet) 200 mg G-TUBE BID [facility] Last Admin: 07/17/21 09:23 Dose: 200 mg Documented by: GURDEEP Labs CBC & Chem 7: 07/16/21 06:12 07/16/21 06:12 Labs: Laboratory Results - last 24 hr 07/16/21 07/16/21 07/17/21 15:27 19:58 07:22 POC Glucose 69 82 62 07/17/21 07/17/21 08:23 10:58 POC Glucose 69 81 Assessment and Plan (1) Acute hypoxemic respiratory failure: Status: Acute Plan 60-year-old moderately obese with history of Crohn's disease on Stelara, prednisone, methotrexate, diabetes who presents to the emergency department with shortness of breath found to have hypoxia and COVID-19 positive on 06/15/21. On 06/19/21 he snorted cocaine in his room and developed precipitous hypoxemia requiring urgent intubation from developing? He developed the cocaine lung and cardiac toxicity with combined noncardiogenic as well as cardiogenic pulmonary edema? and he remained intubated for 3 weeks and was extubated on 07/11/21? and respiratory status has been stable on room air and transfered to [facility] on 07/12/21.? Clinically had secondary nosocomial bacterial pneumonia and currently Mayda tropicalis urinary tract infection and some persistent atelectasis bilaterally but he is nontoxic 1.Acute respiratory failure with hypoxia secondary to COVID-19 pneumonia, cocaine induced noncardiogenic and cardiogenic? pulmonary edema that required prolonged intuabation--all resolved at this point, sating well on room air. No longer need covid isolation. 2.Abdominal pain--Exam is bening, CT shows non obstructing kidney stone. abd pain seems improving off solumedrol, start Prednisone. crohn dis: start stelara, mtx. Morphine for pain transition to oxycodone 3.Mood--used to be on? Remeron, Paxil but now on Luvox 4.HTN--BP is ok, used to be on Lisinopril has not been on it for weeks now, consider restarting 5.Diabetes--was on glyburide at home, continue holding. Continue Lantus and SSI 6.Mayda tropicalis UTI--Continue Diflucan Diet: nutrition recommends Puree, thin Liquid--will do this after CT DVT prophylaxis -Lovenox Code status -full code waiting To short term rehab Quality Stroke Does the patient have a stroke diagnosis?: No VTE Prior VTE?: No VTE Risk Level:: Medical - moderate - high VTE Device Contraindication: N/A - Device Ordered VTE Drug Contraindication: N/A - Med Ordered
[2021-07-17 16:20] LABS: Glucose, Whole Blood 76 mg/dL (60-115)
[2021-07-17 20:40] LABS: Glucose, Whole Blood 76 mg/dL (60-115)
[2021-07-17] MEDS: metHOTREXate sodium 2.5 MG TABLET 25 MG PO (21:10)
[2021-07-18] VITALS (8 sets, daily range): BP systolic 129–161; BP diastolic 69–93; PULSE 78–101; RESP 16–20; TEMP 36.1–36.9; O2SAT 88–97
[2021-07-18 01:36] LABS: Glucose, Whole Blood 47 mg/dL (60-115)
[2021-07-18] MEDS: Dextrose 50 % 25 GM/50 ML SYRINGE IVPUSH (01:43)
[2021-07-18 01:55] LABS: Glucose, Whole Blood 178 mg/dL (60-115)
--- NOTE | 2021-07-18 02:31 | PC.NURSE ---
Patient due to insulin at midnight. POC 47. Pt is drowsy but no change from earlier. Pt alert to self and place. Given juice and PRN dose of dextrose. Recheck of POC is 178. Dr Cheng notified via [employer].
[2021-07-18 05:58] LABS: Glucose, Whole Blood 76 mg/dL (60-115)
[2021-07-18 07:13] LABS: Glucose, Whole Blood 104 mg/dL (60-115)
[2021-07-18 08:53] LABS: Estimated Average Glucose 151 mg/dL; Hemoglobin A1c % 6.9 %
[2021-07-18] MEDS: Enoxaparin Sodium 40 MG/0.4 ML SYRINGE SUBCUT (10:39)
[2021-07-18] MEDS: fluvoxaMINE Maleate 50 MG TABLET 100 MG G-TUBE ×2 (10:40→20:17)
[2021-07-18] MEDS: Thiamine HCL 100 MG TABLET 200 MG G-TUBE ×2 (10:40→20:17)
[2021-07-18] MEDS: predniSONE 10 MG TABLET PO (10:40)
[2021-07-18] MEDS: 0.9 % Sodium Chloride Flush 3 ML SYRINGE IVFLUSH ×3 (10:41→20:33)
[2021-07-18 11:18] LABS: Glucose, Whole Blood 237 mg/dL (60-115)
--- NOTE | 2021-07-18 11:21 | MHC.CM.PN ---
[facility] will follow for bed availability to accept Patient.
[2021-07-18] MEDS: Fluconazole in NaCl,Iso-Osm 100 MG in Container,Empty 0 ML 50 MG IV (14:00)
[2021-07-18 14:05] LABS: Glucose, Whole Blood 223 mg/dL (60-115)
--- NOTE | 2021-07-18 14:25 | MHC.CLN ---
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
--- NOTE | 2021-07-18 15:15 | P.PNIM_ITS ---
Subjective Subjective Date of Service: 07/18/21 Interval History: F/u respiratory failure from covid and cocaine induced lung injury and required prolonged intubation and mechanical ventilation in the ICU for 3 weeks, Review of Systems ?denies any chest pain or shortness of breath or fever or chills or cough or phlegm. Physical Exam Vital Signs: Vital Signs: Last Vital Signs Temp 97 F 07/18/21 11:11 Pulse 101 H 07/18/21 11:11 Resp 20 07/18/21 11:11 BP 154/80 H 07/18/21 11:11 Pulse Ox 93 07/18/21 11:11 Oxygen Flow Rate 10 06/15/21 00:21 BMI result Body Mass Index 26.8 ?General: AO X 2, no acute distress Resp:? CTA bilateral CVS: S1,S2,RRR GI: +BS, NT, no distention Skin: No rash Neuro:? motor grossly intact Psych: appropriate affect Objective Data Active Medications Acetaminophen (Acetaminophen 325 Mg Tablet) 650 mg OG-TUBE Q6H PRN PRN Reason: Fever Last Admin: 07/17/21 06:09 Dose: 650 mg Documented by: ASGE Dextrose (Dextrose 50 % 25 Gm/50 Ml Syringe) 25 gm IVPUSH Q15M PRN PRN Reason: per Hypoglycemia Standing Ord. Last Admin: 07/18/21 01:43 Dose: 25 gm Documented by: QUINN Docusate Sodium (Docusate Sodium 100 Mg Capsule) 100 mg PO DAILY PRN PRN Reason: Constipation Docusate Sodium (Docusate Sodium 100 Mg Capsule) 100 mg PO BEDTIME [facility] Last Admin: 07/17/21 21:06 Dose: 100 mg Documented by: QUINN Enoxaparin Sodium (Enoxaparin Sodium 40 Mg/0.4 Ml Syringe) 40 mg SUBCUT Q24H [facility] Last Admin: 07/18/21 10:39 Dose: 40 mg Documented by: CLARENCE Fluvoxamine Maleate (Fluvoxamine Maleate 50 Mg Tablet) 100 mg G-TUBE BID [facility] Last Admin: 07/18/21 10:40 Dose: 100 mg Documented by: CLARENCE Fluconazole 100 mg/ IV (Miscellaneous Supplies) 50 mls @ 50 mls/hr IV Q24H [facility] Last Infusion: 07/17/21 17:10 Dose: 0 mls/hr Documented by: PITER Insulin Glargine (Insulin Glargine,Hum.Rec.Anlog 100 Unit/Ml 10 Ml Vial) 50 unit SUBCUT BID [facility] Last Admin: 07/17/21 21:06 Dose: Not Given Documented by: QUINN Non-Admin Reason: No Insulin Coverage Insulin Human Lispro (Insulin Lispro 100 Unit/Ml 3 Ml Vial) 0 unit SUBCUT Q6H [facility]; Protocol Last Admin: 07/18/21 11:35 Dose: Not Given Documented by: CLARENCE Non-Admin Reason: Physician Held Med Methotrexate (Methotrexate Sodium 2.5 Mg Tablet) 25 mg PO Tu@1800 [facility] Last Admin: 07/17/21 21:10 Dose: 25 mg Documented by: QUINN Omeprazole (Omeprazole 20 Mg/10 Ml Susp.Recon) 40 mg PO DAILY@0630 [facility] Last Admin: 07/18/21 06:00 Dose: 40 mg Documented by: QUINN Oxycodone HCl (Oxycodone Hcl Immed Release 5 Mg Tablet) 5 mg PO Q6H PRN PRN Reason: Pain, Mild (Pain Scale 1-3) Last Admin: 07/17/21 09:32 Dose: 5 mg Documented by: GURDEEP Polyethylene Glycol (Polyethylene Glycol 3350 17 Gm Powd.Pack) 17 gm PO DAILY [facility] Last Admin: 07/18/21 10:41 Dose: Not Given Documented by: CLARENCE Non-Admin Reason: Patient Refused Prednisone (Prednisone 10 Mg Tablet) 10 mg PO DAILY [facility] Last Admin: 07/18/21 10:40 Dose: 10 mg Documented by: CLARECNE Sodium Chloride (0.9 % Sodium Chloride Flush 3 Ml Syringe) 3 ml IVFLUSH QSHIFT [facility] Last Admin: 07/18/21 10:41 Dose: 3 ml Documented by: CLARENCE Thiamine HCl (Thiamine Hcl 100 Mg Tablet) 200 mg G-TUBE BID [facility] Last Admin: 07/18/21 10:40 Dose: 200 mg Documented by: CLARENCE Labs CBC & Chem 7: 07/16/21 06:12 07/16/21 06:12 Labs: Laboratory Results - last 24 hr 07/17/21 07/17/21 07/18/21 16:08 20:31 01:31 POC Glucose 76 76 47 L* Estimat Average Glucose Hemoglobin A1c % 07/18/21 07/18/21 07/18/21 01:51 05:54 07:09 POC Glucose 178 H 76 104 Estimat Average Glucose Hemoglobin A1c % 07/18/21 07/18/21 07/18/21 08:24 11:11 14:01 POC Glucose 237 H 223 H Estimat Average Glucose 151 Hemoglobin A1c % 6.9 Assessment and Plan (1) Acute hypoxemic respiratory failure: Status: Acute Plan 60-year-old moderately obese with history of Crohn's disease on Stelara, predn isone, methotrexate, diabetes who presents to the emergency department with shortness of breath found to have hypoxia and COVID-19 positive on 06/15/21. On 06/19/21 he snorted cocaine in his room and developed precipitous hypoxemia requiring urgent intubation from developing? He developed the cocaine lung and cardiac toxicity with combined noncardiogenic as well as cardiogenic pulmonary edema? and he remained intubated for 3 weeks and was extubated on 07/11/21? and respiratory status has been stable on room air and transfered to [facility] on 07/12/21.? Clinically had secondary nosocomial bacterial pneumonia and currently Mayda tropicalis urinary tract infection and some persistent atelectasis bilat erally but he is nontoxic 1.Acute respiratory failure with hypoxia secondary to COVID-19 pneumonia, cocaine induced noncardiogenic and cardiogenic? pulmonary edema that required prolonged intuabation--all resolved at this point, sating well on room air. No longer need covid isolation. 2.Abdominal pain--Exam is bening, CT shows non obstructing kidney stone. ?abd pain seems improving off solumedrol, start Prednisone. crohn dis: added stelara, mtx. Morphine for pain transition to oxycodone 3.Mood--used to be on? Remeron, Paxil but now on Luvox 4.HTN--BP is ok, used to be on Lisinopril has not been on it for weeks now, consider restarting 5.Diabetes--was on glyburide at home, continue holding. Continue Lantus and SSI 6.Mayda tropicalis UTI--Continue Diflucan Diet: nutrition recommends Puree, thin Liquid--will do this after CT DVT prophylaxis -Lovenox Code status -full code waiting To short term rehab Quality Stroke Does the patient have a stroke diagnosis?: No VTE Prior VTE?: No VTE Risk Level:: Medical - moderate - high VTE Device Contraindication: N/A - Device Ordered VTE Drug Contraindication: N/A - Med Ordered
[2021-07-18] MEDS: oxyCODONE HCl Immed Release 5 MG TABLET PO (15:19)
[2021-07-18 16:01] LABS: Glucose, Whole Blood 200 mg/dL (60-115)
[2021-07-18 19:53] LABS: Glucose, Whole Blood 264 mg/dL (60-115)
[2021-07-18] MEDS: Docusate Sodium 100 MG CAPSULE PO (20:17)
--- NOTE | 2021-07-18 20:35 | PC.NURSE ---
Refusal of Activities pt refused to get OOB to recliner; told RN and AIR CONDITIONING TECHNICIAN to go home. Educated pt on importance of reposition and movement to prevent further break down skin and to increase mobility.
[2021-07-18 23:38] LABS: Glucose, Whole Blood 177 mg/dL (60-115)
[2021-07-19] VITALS (7 sets, daily range): BP systolic 118–175; BP diastolic 59–90; PULSE 59–90; RESP 16–20; TEMP 36.2–36.7; O2SAT 90–93
[2021-07-19] MEDS: oxyCODONE HCl Immed Release 5 MG TABLET PO ×2 (05:24→20:17)
[2021-07-19 05:34] LABS: Glucose, Whole Blood 109 mg/dL (60-115)
[2021-07-19 07:54] LABS: Glucose, Whole Blood 126 mg/dL (60-115)
[2021-07-19] MEDS: fluvoxaMINE Maleate 50 MG TABLET 100 MG G-TUBE (07:54)
[2021-07-19] MEDS: 0.9 % Sodium Chloride Flush 3 ML SYRINGE IVFLUSH ×3 (07:54→20:27)
[2021-07-19] MEDS: predniSONE 10 MG TABLET PO (07:54)
[2021-07-19] MEDS: Enoxaparin Sodium 40 MG/0.4 ML SYRINGE SUBCUT (07:54)
[2021-07-19] MEDS: polyethylene glycoL 3350 17 GM POWD.PACK PO (07:55)
[2021-07-19] MEDS: Thiamine HCL 100 MG TABLET 200 MG G-TUBE (07:55)
[2021-07-19 12:13] LABS: Glucose, Whole Blood 255 mg/dL (60-115)
--- NOTE | 2021-07-19 12:17 | MHC.CM.PN ---
[facility] has now denied admission r/t Patient's use oc Cocaine here at [facility], in his room. Referrals updated and CM will follow (covid recovered on 07/20/21).
[2021-07-19] MEDS: Insulin Lispro 100 UNIT/ML 3 ML VIAL SUBCUT (12:54)
--- NOTE | 2021-07-19 14:57 | HO.PM.IMPN ---
Subjective Subjective Date of Service: 07/19/21 Interval History: abd pain Review of Systems abd pain resolved , denies any chest pain or shortness of breath or fever or chills Physical Exam Vital Signs: Vital Signs: Last Vital Signs Temp 98.1 F 07/19/21 12:00 Pulse 59 07/19/21 12:00 Resp 18 07/19/21 12:00 BP 124/85 07/19/21 12:00 Pulse Ox 93 07/19/21 12:00 Oxygen Flow Rate 06/15/21 00:21 BMI result Body Mass Index 26.8 ?General: AO X 2, no acute distress Resp:? CTA bilateral CVS: S1,S2,RRR GI: +BS, NT, no distention Skin: No rash Neuro:? motor grossly intact Psych: appropriate affect Objective Data Active Medications Acetaminophen (Acetaminophen 325 Mg Tablet) 650 mg OG-TUBE Q6H PRN PRN Reason: Fever Last Admin: 07/17/21 06:09 Dose: 650 mg Documented by: SAGE Dextrose (Dextrose 50 % 25 Gm/50 Ml Syringe) 25 gm IVPUSH Q15M PRN PRN Reason: per Hypoglycemia Standing Ord. Last Admin: 07/18/21 01:43 Dose: 25 gm Documented by: QUINN Docusate Sodium (Docusate Sodium 100 Mg Capsule) 100 mg PO DAILY PRN PRN Reason: Constipation Docusate Sodium (Docusate Sodium 100 Mg Capsule) 100 mg PO BEDTIME [facility] Last Admin: 07/18/21 20:17 Dose: 100 mg Documented by: GEORGEUMOC Enoxaparin Sodium (Enoxaparin Sodium 40 Mg/0.4 Ml Syringe) 40 mg SUBCUT Q24H [facility] Last Admin: 07/19/21 07:54 Dose: 40 mg Documented by: BABSCAIH Fluvoxamine Maleate (Fluvoxamine Maleate 50 Mg Tablet) 100 mg PO BID [facility] Insulin Glargine (Insulin Glargine,Hum.Rec.Anlog 100 Unit/Ml 10 Ml Vial) 50 unit SUBCUT BID [facility] Last Admin: 07/17/21 21:06 Dose: Not Given Documented by: QUINN Non-Admin Reason: No Insulin Coverage Insulin Human Lispro (Insulin Lispro 100 Unit/Ml 3 Ml Vial) 0 unit SUBCUT Q6H [facility]; Protocol Last Admin: 07/19/21 12:54 Dose: 4 unit Documented by: LUZ ELENA Lisinopril (Lisinopril 5 Mg Tablet) 5 mg PO DAILY [facility]; Protocol Methotrexate (Methotrexate Sodium 2.5 Mg Tablet) 25 mg PO Tu@1800 [facility] Last Admin: 07/17/21 21:10 Dose: 25 mg Documented by: QUINN Omeprazole (Omeprazole 20 Mg/10 Ml Susp.Recon) 40 mg PO DAILY@0630 [facility] Last Admin: 07/19/21 05:35 Dose: 40 mg Documented by: VIKAS Oxycodone HCl (Oxycodone Hcl Immed Release 5 Mg Tablet) 5 mg PO Q6H PRN PRN Reason: Pain, Mild (Pain Scale 1-3) Last Admin: 07/19/21 05:24 Dose: 5 mg Documented by: VIKAS Polyethylene Glycol (Polyethylene Glycol 3350 17 Gm Powd.Pack) 17 gm PO DAILY [facility] Last Admin: 07/19/21 07:55 Dose: 17 gm Documented by: LUZ ELENA Prednisone (Prednisone 10 Mg Tablet) 10 mg PO DAILY [facility] Last Admin: 07/19/21 07:54 Dose: 10 mg Documented by: LUZ ELENA Sodium Chloride (0.9 % Sodium Chloride Flush 3 Ml Syringe) 3 ml IVFLUSH QSHIFT [facility] Last Admin: 07/19/21 07:54 Dose: 3 ml Documented by: LUZ ELENA Thiamine HCl (Thiamine Hcl 100 Mg Tablet) 200 mg PO BID [facility] Labs CBC & Chem 7: 07/16/21 06:12 07/16/21 06:12 Labs: Laboratory Results - last 24 hr 07/18/21 07/18/21 07/18/21 15:52 19:48 23:33 POC Glucose 200 H 264 H 177 H 07/19/21 07/19/21 07/19/21 05:30 07:51 12:07 POC Glucose 109 126 H 255 H Assessment and Plan (1) Acute hypoxemic respiratory failure: Status: Acute (2) Acute respiratory distress syndrome (ARDS): Status: Acute Plan 60-year-old moderately obese with history of Crohn's disease on Stelara, prednisone, methotrexate, diabetes who presents to the emergency department with shortness of breath found to have hypoxia and COVID-19 positive on 06/15/21. On 06/19/21 he snorted cocaine in his room and developed precipitous hypoxemia requiring urgent intubation from developing? He developed the cocaine lung and cardiac toxicity with combined noncardiogenic as well as cardiogenic pulmonary edema? and he remained intubated for 3 weeks and was extubated on 07/11/21? and respiratory status has been stable on room air and transfered to [facility] on 07/12/21.? Clinically had secondary nosocomial bacterial pneumonia and currently Mayda tropicalis urinary tract infection and some persistent atelectasis bilaterally but he is nontoxic 1.Acute respiratory failure with hypoxia secondary to COVID-19 pneumonia, cocaine induced noncardiogenic and cardiogenic? pulmonary edema that required prolonged intuabation--all resolved at this point, sating well on room air. No longer need covid isolation. 2.Abdominal pain--Exam is bening, CT shows non obstructing kidney stone. ?abd pain seems improving off solumedrol, start Prednisone. crohn dis: added stelara, mtx. Morphine for pain transition to oxycodone 3.Mood--used to be on? Remeron, Paxil but now on Luvox psych eval for medication review added. 4.HTN--BP is ok, used to be on Lisinopril has not been on it for weeks now, consider restarting 5.Diabetes--was on glyburide at home, continue holding. Continue Lantus and SSI 6.Mayda tropicalis UTI--Continue Diflucan, id eval added for duration of diflucan. Diet: nutrition recommends Puree, thin Liquid--will do this after CT DVT prophylaxis -Lovenox Code status -full code Quality Stroke Does the patient have a stroke diagnosis?: No VTE Prior VTE?: No VTE Risk Level:: Medical - moderate - high VTE Device Contraindication: N/A - Device Ordered VTE Drug Contraindication: N/A - Med Ordered
[2021-07-19] MEDS: Acetaminophen 325 MG TABLET 650 MG OG-TUBE (15:21)
[2021-07-19] MEDS: Fluconazole in NaCl,Iso-Osm 100 MG in Container,Empty 0 ML 50 MG IV (15:26)
[2021-07-19 16:22] LABS: Glucose, Whole Blood 172 mg/dL (60-115)
[2021-07-19 19:47] LABS: Glucose, Whole Blood 185 mg/dL (60-115)
[2021-07-19] MEDS: fluvoxaMINE Maleate 50 MG TABLET 100 MG PO (20:17)
[2021-07-19] MEDS: Thiamine HCL 100 MG TABLET 200 MG PO (20:17)
[2021-07-20] VITALS (7 sets, daily range): BP systolic 123–156; BP diastolic 75–97; PULSE 72–98; RESP 16–24; TEMP 36.7–37.1; O2SAT 90–96
[2021-07-20 00:17] LABS: Glucose, Whole Blood 124 mg/dL (60-115)
[2021-07-20] MEDS: oxyCODONE HCl Immed Release 5 MG TABLET PO ×2 (02:23→10:12)
[2021-07-20] MEDS: Morphine Sulfate 4 MG/ML CARTRIDGE IVPUSH (05:21)
[2021-07-20 05:53] LABS: Glucose, Whole Blood 142 mg/dL (60-115)
[2021-07-20] MEDS: 0.9 % Sodium Chloride Flush 3 ML SYRINGE IVFLUSH ×3 (07:34→20:38)
[2021-07-20 07:51] LABS: Glucose, Whole Blood 171 mg/dL (60-115)
--- NOTE | 2021-07-20 08:53 | HO.PM.IMPN ---
Subjective Subjective Date of Service: 07/20/21 Interval History: Acute respiratory failure with hypoxia secondary to COVID-19 pneumonia Review of Systems denies any new c/o Physical Exam Vital Signs: Vital Signs: Last Vital Signs Temp 98.0 F 07/20/21 07:16 Pulse 72 07/20/21 07:16 Resp 17 07/20/21 07:16 BP 156/97 H 07/20/21 07:16 Pulse Ox 92 07/20/21 07:16 Oxygen Flow Rate 10 06/15/21 00:21 BMI result Body Mass Index 26.8 General: AO X 2, no acute distress Resp:? CTA bilateral CVS: S1,S2,RRR GI: +BS, NT, no distention Skin: No rash Neuro:? motor grossly intact Psych: appropriate affect Objective Data Active Medications Acetaminophen (Acetaminophen 325 Mg Tablet) 650 mg OG-TUBE Q6H PRN PRN Reason: Fever Last Admin: 07/19/21 15:21 Dose: 650 mg Documented by: PITER Dextrose (Dextrose 50 % 25 Gm/50 Ml Syringe) 25 gm IVPUSH Q15M PRN PRN Reason: per Hypoglycemia Standing Ord. Last Admin: 07/18/21 01:43 Dose: 25 gm Documented by: QUINN Docusate Sodium (Docusate Sodium 100 Mg Capsule) 100 mg PO DAILY PRN PRN Reason: Constipation Docusate Sodium (Docusate Sodium 100 Mg Capsule) 100 mg PO BEDTIME [facility] Last Admin: 07/19/21 20:27 Dose: Not Given Documented by: QUINN Non-Admin Reason: loose stool Enoxaparin Sodium (Enoxaparin Sodium 40 Mg/0.4 Ml Syringe) 40 mg SUBCUT Q24H [facility] Last Admin: 07/19/21 07:54 Dose: 40 mg Documented by: LUZ ELENA Fluvoxamine Maleate (Fluvoxamine Maleate 50 Mg Tablet) 100 mg PO BID [facility] Last Admin: 07/19/21 20:17 Dose: 100 mg Documented by: QUINN Fluconazole 100 mg/ IV (Miscellaneous Supplies) 50 mls @ 50 mls/hr IV Q24H [facility] Last Infusion: 07/19/21 16:50 Dose: 0 mls/hr Documented by: LUZ ELENA Insulin Glargine (Insulin Glargine,Hum.Rec.Anlog 100 Unit/Ml 10 Ml Vial) 50 unit SUBCUT BID [facility] Last Admin: 07/17/21 21:06 Dose: Not Given Documented by: QUINN Non-Admin Reason: No Insulin Coverage Insulin Human Lispro (Insulin Lispro 100 Unit/Ml 3 Ml Vial) 0 unit SUBCUT Q6H [facility]; Protocol Last Admin: 07/20/21 05:50 Dose: Not Given Documented by: QUINN Non-Admin Reason: No Insulin Coverage Lisinopril (Lisinopril 5 Mg Tablet) 5 mg PO DAILY [facility]; Protocol Methotrexate (Methotrexate Sodium 2.5 Mg Tablet) 25 mg PO Tu@1800 [facility] Last Admin: 07/17/21 21:10 Dose: 25 mg Documented by: QUINN Omeprazole (Omeprazole 20 Mg/10 Ml Susp.Recon) 40 mg PO DAILY@0630 [facility] Last Admin: 07/20/21 05:47 Dose: 40 mg Documented by: QUINN Oxycodone HCl (Oxycodone Hcl Immed Release 5 Mg Tablet) 5 mg PO Q6H PRN PRN Reason: Pain, Mild (Pain Scale 1-3) Last Admin: 07/20/21 02:23 Dose: 5 mg Documented by: QUINN Polyethylene Glycol (Polyethylene Glycol 3350 17 Gm Powd.Pack) 17 gm PO DAILY [facility] Last Admin: 07/19/21 07:55 Dose: 17 gm Documented by: LUZ ELENA Prednisone (Prednisone 10 Mg Tablet) 10 mg PO DAILY [facility] Last Admin: 07/19/21 07:54 Dose: 10 mg Documented by: LUZ ELENA Sodium Chloride (0.9 % Sodium Chloride Flush 3 Ml Syringe) 3 ml IVFLUSH QSHIFT [facility] Last Admin: 07/20/21 07:34 Dose: 3 ml Documented by: SANTOSH Thiamine HCl (Thiamine Hcl 100 Mg Tablet) 200 mg PO BID [facility] Last Admin: 07/19/21 20:17 Dose: 200 mg Documented by: QUINN Labs CBC & Chem 7: 07/16/21 06:12 07/16/21 06:12 Labs: Laboratory Results - last 24 hr 07/19/21 07/19/21 07/19/21 12:07 16:15 19:38 POC Glucose 255 H 172 H 185 H 07/20/21 07/20/2122 00:14 05:49 07:21 POC Glucose 124 H 142 H 171 H Assessment and Plan (1) Acute hypoxemic respiratory failure: Status: Acute Plan 60-year-old moderately obese with history of Crohn's disease on Stelara, prednisone, methotrexate, diabetes who presents to the emergency department with shortness of breath found to have hypoxia and COVID-19 positive on 06/15/21. On 06/19/21 he snorted cocaine in his room and developed precipitous hypoxemia requiring urgent intubation from developing? He developed the cocaine lung and cardiac toxicity with combined noncardiogenic as well as cardiogenic pulmonary edema? and he remained intubated for 3 weeks and was extubated on 07/11/21? and respiratory status has been stable on room air and transfered to [facility] on 07/12/21.? Clinically had secondary nosocomial bacterial pneumonia and currently Mayda tropicalis urinary tract infection and some persistent atelectasis bilaterally but he is nontoxic 1.Acute respiratory failure with hypoxia secondary to COVID-19 pneumonia, cocaine induced noncardiogenic and cardiogenic? pulmonary edema that required prolonged intuabation--all resolved at this point, sating well on room air. No longer need covid isolation. 2.Abdominal pain--Exam is bening, CT shows non obstructing kidney stone. ?abd pain seems improving off solumedrol, start Prednisone. crohn dis: added stelara, mtx. Morphine for pain transition to oxycodone 3.Mood--used to be on? Remeron, Paxil but now on Luvox psych eval for medication review added. 4.HTN--BP is ok, used to be on Lisinopril has not been on it for weeks now, consider restarting 5.Diabetes--was on glyburide at home, continue holding. Continue Lantus and SSI 6.Mayda tropicalis UTI--Continue Diflucan, id eval added for duration of diflucan. Diet: nutrition recommends Puree, thin Liquid--will do this after CT DVT prophylaxis -Lovenox Code status -full code awaiting placement Quality Stroke Does the patient have a stroke diagnosis?: No VTE Prior VTE?: No VTE Risk Level:: Medical - moderate - high VTE Device Contraindication: N/A - Device Ordered VTE Drug Contraindication: N/A - Med Ordered
--- NOTE | 2021-07-20 09:25 | P.CNPS_ITS ---
History of Present Illness Date of Service: 07/20/2021 Chief Complaint: covid 19 Reason for Consult: Mood disorder, was on Remeron and Paxil as outpatient, placed on Luvox in ICU. Requesting physician: Curtis Coleman Discussed with referring provider: Yes Sources of Information: patient interviewed and chart reviewed HPI Narrative: Patient is a 60-year-old male, With diagnoses of colitis, CHF, IBD, COVID-19, morbid obesity, cocaine use disorder, and diabetes, as well as multiple other medical issues. Psychiatry was asked to meet with patient due to medication changes while he was in ICU, including stopping Remeron and Paxil, being placed on Luvox 100 mg b.i.d.. A review of home medications reveals that he receives outpatient psychiatric medications from [facility] in [place]. Current Scripts were present for hydroxyzine, mirtazapine, paroxetine. Mass Pat revealed regular Scripts For Nucy[facility], With last fill date of 05/11/2021. He was sitting up in chair at bedside. He was cooperative and agreeable to meeting with me. He is alert and oriented x4. He stated several times that he wished to go back to bed. He stayed states that he has had anxiety for many years, and has been treated with Paxil. He denies any type of withdrawals since stopping it. He reports that he feels the Luvox is working to help control is anxiety at this time. He denies any thought of harm to self or others, feels safe. We discussed possibility of staying on medication Luvox as it appears to be helping, and discussing any further medication changes with outpatient provider once he is home. He was agreeable with this plan. Past Psychiatric History: unknown. No record of IPLOC at this facility. Medical Evaluation Reviewed: Yes Personal & Social History: 60-year-old male. Disabled Review of Systems Review of Systems A full review of systems was completed and was negative with the exception of pertinent positives noted in the history of the presenting illness (HPI). 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) Surgical History History of bone marrow biopsy (~2016) History of cholecystectomy (~2011) History of colonoscopy (~2020) History of esophagogastroduodenoscopy (EGD) (~2020) History of hemorrhoidectomy (~2003) History of lithotripsy (~2017) History of rectal sphincterotomy (~2003) History of right knee surgery (~2016) History of surgery on right wrist (~2006) Substance History: History of cocaine use disorder Diagnostics Vital Signs (24Hr): Vital Signs - 24 hr 07/19/21 11:55 07/19/21 12:00 07/19/21 15:14 Temperature 98.1 F 98.1 F Pulse Rate 90 59 87 Respiratory Rate 18 16 Blood Pressure 137/78 124/85 118/69 Pulse Oximetry 90 L 93 93 07/19/21 19:32 07/19/21 23:31 07/20/21 02:57 Temperature 97.3 F 98.0 F 98.0 F Pulse Rate 83 76 80 Respiratory Rate 18 20 20 Blood Pressure 146/81 H 125/59 L 147/87 H Pulse Oximetry 92 91 L 96 07/20/21 05:20 07/20/21 07:16 Temperature 98.0 F Pulse Rate 85 72 Respiratory Rate 24 H 17 Blood Pressure 137/82 156/97 H Pulse Oximetry 96 92 BMI result Body Mass Index 26.8 Labs Results: 07/16/21 06:12 07/16/21 06:12 Labs: Laboratory Results - last 48 hr 07/18/21 07/18/21 07/18/21 11:11 14:01 15:52 POC Glucose 237 H 223 H 200 H 07/18/21 07/18/21 07/19/21 19:48 23:33 05:30 POC Glucose 264 H 177 H 109 07/19/21 07/19/21 07/19/21 07:51 12:07 16:15 POC Glucose 126 H 255 H 172 H 07/19/21 07/20/21 07/20/21 19:38 00:14 05:49 POC Glucose 185 H 124 H 142 H 07/20/21 07:21 POC Glucose 171 H Imaging Radiology Impressions: ITS Impressions Chest X-Ray 06/15/21 01:32 IMPRESSION: Multifocal pneumonitis Chest CTA 06/15/21 20:08 IMPRESSION: No pulmonary embolism. Imaging features of COVID-19 pneumonia present. Other processes such as influenza pneumonia or organizing pneumonia can cause a similar imaging appearance, as can certain drug toxicities and connective tissue diseases. Trace bilateral pleural effusions. Age-indeterminate wedge compression deformities of the T12 and T10 vertebral bodies with 75% height loss new from 2018. VTE: negative Chest X-Ray 06/19/21 23:03 IMPRESSION: Endotracheal tube 5 centers above caden. Persistent extensive bilateral airspace disease. Chest X-Ray 06/20/21 00:04 FINDINGS/IMPRESSION: Right internal jugular central venous catheter terminates in the mid SVC. Endotracheal tube terminates 5.5 cm above the caden. Enteric tube courses below the diaphragm. No pneumothorax. Diffuse bilateral patchy and hazy airspace opacities redemonstrated, without appreciable change from the prior exam. No pleural effusion or pneumothorax. Stable cardiomediastinal silhouette. Chest X-Ray 06/21/21 10:03 IMPRESSION: Diffuse bilateral regions of interstitial and airspace disease. Diminished right lung volume with basilar consolidation. Chest X-Ray 06/22/21 07:53 IMPRESSION: Tubes and lines as described. Persistent patchy bilateral airspace disease similar to yesterday's study. Chest X-Ray 06/23/21 08:35 IMPRESSION: No significant interval change is noted in the diffusely scattered bilateral patchy airspace opacities compared to last chest x-ray. Endotracheal tube terminates 6.2 cm above the caden. Chest X-Ray 06/27/21 12:19 IMPRESSION: New bilateral lower neck and left chest wall subcutaneous emphysema and probable pneumomediastinum. No pneumothorax. Bilateral diffuse airspace is not appreciably changed. Slightly high position of endotracheal tube 8 cm above the caden. Nasogastric tube projects over stomach, tip not seen. Satisfactory position of right jugular line. Findings will be communicated to Dr. Felix by telephone on 06/27/2021 at 12:50 PM. Chest X-Ray 06/29/21 11:55 IMPRESSION: Satisfactory position of endotracheal tube and right jugular line. Nasogastric tube projects over stomach, tip not seen. Increasing size of the cardiac silhouette and increasing mediastinal soft tissue. Increasing pneumomediastinum. It is difficult to exclude a small left pneumothorax. No right pneumothorax. Neck and chest subcutaneous emphysema. Findings will be communicated by the [employer]over work flow technical programs manager. Chest X-Ray 07/03/21 06:30 IMPRESSION: Endotracheal tube terminating 3 cm above the caden. Very low lung volumes, limits evaluation. Diffuse bilateral airspace opacities remain. No pneumomediastinum seen at this time, though evaluation of the cardiomediastinal silhouette is limited.. Chest X-Ray 07/07/21 05:07 IMPRESSION: Bilateral airspace opacities show some improvement from prior. Endotracheal tube terminates 6 cm above the caden. No definite pneumomediastinum seen. Chest X-Ray 07/11/21 04:00 IMPRESSION: Multifocal bilateral opacities appear overall similar to 07/07/2021. Abdomen/Pelvis CT 07/13/21 12:37 IMPRESSION: There is a nonobstructing 4 mm distal right ureteral calculus, 2 bladder calculi and several bilateral nonobstructing renal calculi. Interval development of vertebral compression deformities of the superior endplates of L2, L4 and possibly the inferior endplate of L1. There is progressive vertebral body height loss of T12 compression fracture. Increased aeration of the lung bases. Fleischner guidelines were followed. Chest X-Ray 07/18/21 21:32 IMPRESSION: Hypoinflated lungs with similar bilateral patchy airspace disease. Mental Status Exam Mental Status Exam Narrative: Well-developed, overweight male, in NAD. Sitting up in chair at bedside. No involuntary movements, no tics or tremors noted. Did not appear to be responding to any type of internal stimuli. Did have somewhat anxious mood and affect. Patient Appearance: Disheveled Patient Orientation: Person, Place, Time and Situation Level of Consciousness: Awake, Appropriate and Alert Patient Behavior: Cooperative and Anxious Mood Description: Appropriate Affect Description: Appropriate Ability to Follow Directions: Good Speech Pattern: Appropriate and Coherent Memory Description: Intact (Memory appears grossly intact.) Delusions: Not Present Thought Process: Intact Thought Content: positive for Intact Judgement: Fair Judgement and Insight: Fair but adequate. Medications Medications Current Medications Acetaminophen (Acetaminophen 325 Mg Tablet) 650 mg OG-TUBE Q6H PRN PRN Reason: Fever Last Admin: 07/19/21 15:21 Dose: 650 mg Documented by: Dextrose (Dextrose 50 % 25 Gm/50 Ml Syringe) 25 gm IVPUSH Q15M PRN PRN Reason: per Hypoglycemia Standing Ord. Last Admin: 07/18/21 01:43 Dose: 25 gm Documented by: Docusate Sodium (Docusate Sodium 100 Mg Capsule) 100 mg PO DAILY PRN PRN Reason: Constipation Docusate Sodium (Docusate Sodium 100 Mg Capsule) 100 mg PO BEDTIME [facility] Last Admin: 07/19/21 20:27 Dose: Not Given Documented by: Enoxaparin Sodium (Enoxaparin Sodium 40 Mg/0.4 Ml Syringe) 40 mg SUBCUT Q24H [facility] Last Admin: 07/19/21 07:54 Dose: 40 mg Documented by: Fluvoxamine Maleate (Fluvoxamine Maleate 50 Mg Tablet) 100 mg PO BID [facility] Last Admin: 07/19/21 20:17 Dose: 100 mg Documented by: Fluconazole 100 mg/ IV (Miscellaneous Supplies) 50 mls @ 50 mls/hr IV Q24H [facility] Last Infusion: 07/19/21 16:50 Dose: Infused Documented by: Insulin Glargine (Insulin Glargine,Hum.Rec.Anlog 100 Unit/Ml 10 Ml Vial) 50 unit SUBCUT BID [facility] Last Admin: 07/17/21 21:06 Dose: Not Given Documented by: Insulin Human Lispro (Insulin Lispro 100 Unit/Ml 3 Ml Vial) 0 unit SUBCUT Q6H [facility]; Protocol Last Admin: 07/20/21 05:50 Dose: Not Given Documented by: Lisinopril (Lisinopril 5 Mg Tablet) 5 mg PO DAILY [facility]; Protocol Methotrexate (Methotrexate Sodium 2.5 Mg Tablet) 25 mg PO Tu@1800 [facility] Last Admin: 07/17/21 21:10 Dose: 25 mg Documented by: Omeprazole (Omeprazole 20 Mg/10 Ml Susp.Recon) 40 mg PO DAILY@0630 [facility] Last Admin: 07/20/21 05:47 Dose: 40 mg Documented by: Oxycodone HCl (Oxycodone Hcl Immed Release 5 Mg Tablet) 5 mg PO Q6H PRN PRN Reason: Pain, Mild (Pain Scale 1-3) Last Admin: 07/20/21 02:23 Dose: 5 mg Documented by: Polyethylene Glycol (Polyethylene Glycol 3350 17 Gm Powd.Pack) 17 gm PO DAILY [facility] Last Admin: 07/19/21 07:55 Dose: 17 gm Documented by: Prednisone (Prednisone 10 Mg Tablet) 10 mg PO DAILY [facility] Last Admin: 07/19/21 07:54 Dose: 10 mg Documented by: Sodium Chloride (0.9 % Sodium Chloride Flush 3 Ml Syringe) 3 ml IVFLUSH QSHIFT [facility] Last Admin: 07/20/21 07:34 Dose: 3 ml Documented by: Thiamine HCl (Thiamine Hcl 100 Mg Tablet) 200 mg PO BID [facility] Last Admin: 07/19/21 20:17 Dose: 200 mg Documented by: Allergies Allergies Allergy/AdvReac Type Severity Reaction Status Date / Time lorazepam [From Ativan] AdvReac Severe AGITATION Verified 06/20/21 00:19 ? EDEMA none Allergy Unknown Unknown Uncoded 04/02/21 16:05 Assessment & Plan Assessment & Plan (1) SAM (generalized anxiety disorder): Status: Acute Code(s): F41.1 - Generalized anxiety disorder Assessment and Plan: Patient reports that he has been treated for years as an outpatient for anxiety. He was taking Paxil and mirtazapine as outpatient. At some point during hospital stay, while in ICU, he was changed over to Luvox 100 mg b.i.d.. Luvox is another SSRI, which also can be effective in treating anxiety symptoms. He states that he is experiencing some level of anxiety today, but overall he feels the medication is helping. He states that his anxiety today is more related to his difficulty breathing rather than a generalized anxiety. He denies any thoughts of SI, states that he feels stable and safe. Discussed remaining on the new medication Luvox for now, and making any further changes once he sees his outpatient provider. He was agreeable to this plan. Plan 1. No medication changes at this time. 2. Patient will follow-up with outpatient psychiatric provider regarding any medication changes, including switching back to Paxil if indicated, as well as adding mirtazapine if indicated. I have shared this information with provider, Dr. Coleman, Via secure messaging system. Thank you for this consultation. If you have any further questions or concerns, please do not hesitate to contact psychiatry service. I spent minutes with the patient and/or on the patient floor today, greater than?50% of which was spent counseling/coordinating care.
[2021-07-20] MEDS: lisinopriL 5 MG TABLET PO (10:09)
[2021-07-20] MEDS: predniSONE 10 MG TABLET PO (10:09)
[2021-07-20] MEDS: Thiamine HCL 100 MG TABLET 200 MG PO ×2 (10:09→20:37)
[2021-07-20] MEDS: fluvoxaMINE Maleate 50 MG TABLET 100 MG PO ×2 (10:09→20:37)
[2021-07-20] MEDS: Enoxaparin Sodium 40 MG/0.4 ML SYRINGE SUBCUT (10:09)
--- NOTE | 2021-07-20 11:08 | MHC.SL.SWA ---
Speech Pathologist Impression: Oral Phase Dysphagia Risk of Aspiration Due to: Hx of Recent Extubation Dysphasia Diet Status: Upgrade Liquid Consistency and Strategies for Safe Swallow: Liquid Intake Recommendation: Thin Liquid Intake Strategies: Small Sips Solid Food Consistency: Dietary Recommendations: Regular Additional Modifications to Solid Foods: Recommend UPGRADE to REGULAR solids (add sauce/gravy as needed; alternate bite of food with sip of liquid) and maintain THIN liquids; pills WHOLE in LIQUID. Patient is able to feed himself. Continue aspiration precautions. Diet order in [facility] updated by YEAST CULTURE DEVELOPER. RN, RD, MD notified via [place] text. Further ST intervention no longer warranted. Please re-refer if we can be of further assistance. Oral Medication Intake: Whole with Liquid Compensatory Strategies and Precautions to be Taken for Safe Swallow: Sitting Upright (90 deg) Small Bites and Sips Alternate Liquids/Solids Rate of Ingestion Change Avoid Specific Foods Supervision While Eating and Drinking for Safe Swallow: Intermittent Supervision Foods to Avoid: Sticky, tough, difficult to chew solids Swallowing Recommended Treatments: Compens. Strategy Educat. Recommendation for Speech: d/c Fender Mechanic Clinican/Clinical Fellow: No Supervisory Statement: I have reviewed and agree with the student/clinical fellow's documentation: N/A Speech Language Pathologist: Emily Garcia M.A., CCC-YEAST CULTURE DEVELOPER
--- NOTE | 2021-07-20 11:32 | MHC.CM.PN ---
Broad SNF search is in progress and CM has updated all referrals. CM will continue to follow for dc planning.
[2021-07-20 11:44] LABS: Glucose, Whole Blood 241 mg/dL (60-115)
[2021-07-20] MEDS: Insulin Lispro 100 UNIT/ML 3 ML VIAL SUBCUT ×2 (12:15→18:52)
--- NOTE | 2021-07-20 12:54 | MHC.CLN ---
F/U PO INTAKE 25-50% DIET RX: 2200DM LOW RESIDUE REGULAR-APPROPRIATE PRODUCTION MACHINE SHOP SUPERVISOR FOLLOWING FOR APPROPRIATE CONSISTENCY; UPGRADED DIET TODAY TO REGULAR PT RECEIVING GLUCERNA BID TO INCREASE KCALS AND PROMOTE WOUND HEALING SUPP PROVIDES 474KCALS, 20G PROTEIN WITH 100% ACCEPTANCE CONTINUE TO MONITOR PO INTAKE CLOSELY
[2021-07-20] MEDS: Fluconazole in NaCl,Iso-Osm 100 MG in Container,Empty 0 ML 50 MG IV (14:23)
--- NOTE | 2021-07-20 16:45 | PM.IDPN ---
Subjective Subjective Date of Service: 07/19/21 Critical Care Time (minutes): 15 Comment: patient with positive urinalysis and mayda tropicalis Objective Data Labs CBC & Chem 7: 08/15/21 06:35 08/15/21 06:35 Labs: Laboratory Results - last 24 hr 07/19/21 07/20/21 07/20/21 19:38 00:14 05:49 POC Glucose 185 H 124 H 142 H 07/20/21 07/20/21 07:21 10:50 POC Glucose 171 H 241 H Microbiology Microbiology Results: Microbiology 07/11/21 03:40 Blood - Venous Blood Culture - Final No growth after 5 days. 07/11/21 03:31 Blood - Venous Blood Culture - Final No growth after 5 days. 07/10/21 08:30 Sputum - Suctioned Gram Stain - Final 07/10/21 08:30 Sputum - Suctioned Sputum Culture - Final 07/10/21 Unknown Urine Catheterized - [place] Catheter Urine Culture - Final Mayda tropicalis 06/21/21 Unknown Urine Catheterized - [place] Catheter Urine Culture - Final Escherichia coli 06/21/21 13:06 Sputum - Suctioned Gram Stain - Final 06/21/21 13:06 Sputum - Suctioned Sputum Culture - Final Escherichia coli 06/20/21 15:30 Sputum - Suctioned Gram Stain - Final 06/20/21 15:30 Sputum - Suctioned Sputum Culture - Final Escherichia coli 06/15/21 00:51 Blood - Venous Blood Culture - Final No growth after 5 days. 06/15/21 00:50 Blood - Venous Blood Culture - Final No growth after 5 days. Physical Exam Vital Signs: Vital Signs: Last Vital Signs Temp 98.4 F 07/20/21 10:47 Pulse 98 07/20/21 10:47 Resp 18 07/20/21 10:47 BP 134/91 H 07/20/21 10:47 Pulse Ox 96 07/20/21 10:47 Oxygen Flow Rate 10 06/15/21 00:21 BMI result Body Mass Index 26.8 Const: General: cooperative Eyes: General: appearance normal, both eyes and all related structures Neck: Neck: Yes normal visual inspection Resp: Effort & Inspection: normal respiratory effort Cardio: Rate: regular rate Rhythm: regular rhythm GI: Palpation (GI): Soft to palpation and nontender Assessment and Plan Assessment and plan (1) Mayda tropicalis infection: Problem details: He has positive urinalysis and mayda tropicalis Status: Acute Assessment and Plan: Diflucan 200 mg daily for 14 d ?occult fungemia Time Spent With Patient Time: Total time spent is greater than 50% in coordination of care (as documented) at patient's floor/unit and/or counseling patient: Time with patient: 15 - 24 minutes
[2021-07-20] MEDS: Fluconazole in NaCl,Iso-Osm 200 MG/100 ML PIGGYBACK 100 MG IV (18:28)
[2021-07-20 18:38] LABS: Glucose, Whole Blood 226 mg/dL (60-115)
[2021-07-20 20:33] LABS: Glucose, Whole Blood 192 mg/dL (60-115)
[2021-07-21 03:46] VITALS: BP 162/75; PULSE 93; RESP 18; TEMP 36.8; O2SAT 92
[2021-07-21] MEDS: oxyCODONE HCl Immed Release 5 MG TABLET PO ×3 (04:50→16:44)
[2021-07-21 06:00] VITALS: BMI 26.7
[2021-07-21 07:21] VITALS: BP 157/74; PULSE 81; RESP 18; TEMP 36.8; O2SAT 91
[2021-07-21 08:03] LABS: Glucose, Whole Blood 94 mg/dL (60-115)
[2021-07-21] MEDS: 0.9 % Sodium Chloride Flush 3 ML SYRINGE IVFLUSH ×3 (08:53→20:28)
[2021-07-21] MEDS: Enoxaparin Sodium 40 MG/0.4 ML SYRINGE SUBCUT (08:53)
[2021-07-21] MEDS: lisinopriL 5 MG TABLET PO (08:54)
[2021-07-21] MEDS: predniSONE 10 MG TABLET PO (08:54)
[2021-07-21] MEDS: fluvoxaMINE Maleate 50 MG TABLET 100 MG PO ×2 (08:54→20:26)
[2021-07-21] MEDS: Thiamine HCL 100 MG TABLET 200 MG PO ×2 (08:54→20:25)
--- NOTE | 2021-07-21 11:00 | HO.PM.IMPN ---
Subjective Subjective Date of Service: 07/21/21 Interval History: Acute respiratory failure with hypoxia secondary to COVID-19 pneumonia Review of Systems denies any new c/o Physical Exam Vital Signs: Vital Signs: Last Vital Signs Temp 98.3 F 07/21/21 07:21 Pulse 81 07/21/21 07:21 Resp 18 07/21/21 07:21 BP 157/74 H 07/21/21 07:21 Pulse Ox 91 L 07/21/21 07:21 Oxygen Flow Rate 10 06/15/21 00:21 BMI result Body Mass Index 26.7 General: AO X 2, no acute distress Resp:? CTA bilateral CVS: S1,S2,RRR GI: +BS, NT, no distention Skin: No rash Neuro:? motor grossly intact Psych: appropriate affect Objective Data Active Medications Acetaminophen (Acetaminophen 325 Mg Tablet) 650 mg OG-TUBE Q6H PRN PRN Reason: Fever Last Admin: 07/19/21 15:21 Dose: 650 mg Documented by: PITER Dextrose (Dextrose 50 % 25 Gm/50 Ml Syringe) 25 gm IVPUSH Q15M PRN PRN Reason: per Hypoglycemia Standing Ord. Last Admin: 07/18/21 01:43 Dose: 25 gm Documented by: ANDERM Docusate Sodium (Docusate Sodium 100 Mg Capsule) 100 mg PO DAILY PRN PRN Reason: Constipation Docusate Sodium (Docusate Sodium 100 Mg Capsule) 100 mg PO BEDTIME [facility] Last Admin: 07/20/21 20:34 Dose: Not Given Documented by: ANTJAYLON Non-Admin Reason: Loose stools Enoxaparin Sodium (Enoxaparin Sodium 40 Mg/0.4 Ml Syringe) 40 mg SUBCUT Q24H [facility] Last Admin: 07/21/21 08:53 Dose: 40 mg Documented by: COTEMA Fluvoxamine Maleate (Fluvoxamine Maleate 50 Mg Tablet) 100 mg PO BID [facility] Last Admin: 07/21/21 08:54 Dose: 100 mg Documented by: COTEMA Fluconazole (Diflucan) 200 mg in 100 mls @ 100 mls/hr IV Q24H [facility] Last Infusion: 07/20/21 20:35 Dose: 0 mls/hr Documented by: PITOOIC Insulin Glargine (Insulin Glargine,Hum.Rec.Anlog 100 Unit/Ml 10 Ml Vial) 50 unit SUBCUT BID [facility] Last Admin: 07/17/21 21:06 Dose: Not Given Documented by: QUINN Non-Admin Reason: No Insulin Coverage Insulin Human Lispro (Insulin Lispro 100 Unit/Ml 3 Ml Vial) 0 unit SUBCUT Q6H [facility]; Protocol Last Admin: 07/21/21 08:07 Dose: Not Given Documented by: KATEYEMA Non-Admin Reason: No Insulin Coverage Lisinopril (Lisinopril 5 Mg Tablet) 5 mg PO DAILY [facility]; Protocol Last Admin: 07/21/21 08:54 Dose: 5 mg Documented by: COTEMA Methotrexate (Methotrexate Sodium 2.5 Mg Tablet) 25 mg PO Tu@1800 [facility] Last Admin: 07/17/21 21:10 Dose: 25 mg Documented by: ANDSHERLY Omeprazole (Omeprazole 20 Mg/10 Ml Susp.Recon) 40 mg PO DAILY@0630 [facility] Last Admin: 07/21/21 04:50 Dose: 40 mg Documented by: ANTOIC Oxycodone HCl (Oxycodone Hcl Immed Release 5 Mg Tablet) 5 mg PO Q6H PRN PRN Reason: Pain, Mild (Pain Scale 1-3) Last Admin: 07/21/21 10:31 Dose: 5 mg Documented by: MITCHELL Polyethylene Glycol (Polyethylene Glycol 3350 17 Gm Powd.Pack) 17 gm PO DAILY [facility] Last Admin: 07/21/21 08:54 Dose: Not Given Documented by: MITCHELL Non-Admin Reason: Patient Refused Prednisone (Prednisone 10 Mg Tablet) 10 mg PO DAILY [facility] Last Admin: 07/21/21 08:54 Dose: 10 mg Documented by: KATEYEMA Sodium Chloride (0.9 % Sodium Chloride Flush 3 Ml Syringe) 3 ml IVFLUSH QSHIFT [facility] Last Admin: 07/21/21 08:53 Dose: 3 ml Documented by: COTEMA Thiamine HCl (Thiamine Hcl 100 Mg Tablet) 200 mg PO BID [facility] Last Admin: 07/21/21 08:54 Dose: 200 mg Documented by: MITCHELL Labs CBC & Chem 7: 07/16/21 06:12 07/16/21 06:12 Labs: Laboratory Results - last 24 hr 07/20/21 07/20/21 07/20/21 10:50 18:34 20:26 POC Glucose 241 H 226 H 192 H 07/21/21 07:23 POC Glucose 94 Assessment and Plan (1) Acute hypoxemic respiratory failure: Status: Acute Plan 60-year-old moderately obese with history of Crohn's disease on Stelara, prednisone, methotrexate, diabetes who presents to the emergency department with shortness of breath found to have hypoxia and COVID-19 positive on 06/15/21. On 06/19/21 he snorted cocaine in his room and developed precipitous hypoxemia requiring urgent intubation from developing? He developed the cocaine lung and cardiac toxicity with combined noncardiogenic as well as cardiogenic pulmonary edema? and he remained intubated for 3 weeks and was extubated on 07/11/21? and respiratory status has been stable on room air and transfered to [facility] on 07/12/21.? Clinically had secondary nosocomial bacterial pneumonia and currently Mayda tropicalis urinary tract infection and some persistent atelectasis bilaterally but he is nontoxic 1.Acute respiratory failure with hypoxia secondary to COVID-19 pneumonia, cocaine induced noncardiogenic and cardiogenic? pulmonary edema that required prolonged intuabation--all resolved at this point, sating well on room air. No longer need covid isolation. 2.Abdominal pain--Exam is bening, CT shows non obstructing kidney stone. ?abd pain seems improving off solumedrol, start Prednisone. crohn dis: added stelara, mtx. Morphine for pain transition to oxycodone 3.Mood--used to be on? Remeron, Paxil but now on Luvox psych eval for medication review added- recommended to continue Luvox for now. 4.HTN--BP is ok, used to be on Lisinopril has not been on it for weeks now, consider restarting 5.Diabetes--was on glyburide at home, continue holding. Continue Lantus and SSI 6.Mayda tropicalis UTI--Continue Diflucan, id eval added for duration of diflucan. Diet: nutrition recommends Puree, thin Liquid. DVT prophylaxis -Lovenox Code status -full code awaiting placement Quality Stroke Does the patient have a stroke diagnosis?: No VTE Prior VTE?: No VTE Risk Level:: Medical - moderate - high VTE Device Contraindication: N/A - Device Ordered VTE Drug Contraindication: N/A - Med Ordered
[2021-07-21 11:49] LABS: Glucose, Whole Blood 191 mg/dL (60-115)
[2021-07-21 12:00] VITALS: BP 151/94; PULSE 105; RESP 19; TEMP 36.4; O2SAT 91
[2021-07-21 15:17] VITALS: BP 121/75; PULSE 87; RESP 18; TEMP 36.9; O2SAT 90
[2021-07-21 16:11] LABS: Glucose, Whole Blood 241 mg/dL (60-115)
[2021-07-21] MEDS: Insulin Lispro 100 UNIT/ML 3 ML VIAL SUBCUT (16:44)
[2021-07-21] MEDS: Fluconazole in NaCl,Iso-Osm 200 MG/100 ML PIGGYBACK 100 MG IV (16:45)
[2021-07-21 19:41] VITALS: BP 153/87; PULSE 74; RESP 18; TEMP 37.1; O2SAT 91
[2021-07-21 20:08] LABS: Glucose, Whole Blood 197 mg/dL (60-115)
[2021-07-21 23:51] VITALS: BP 149/85; PULSE 86; RESP 20; TEMP 36.2; O2SAT 95
[2021-07-22 04:00] VITALS: BP 151/86; PULSE 85; RESP 20; TEMP 35.9; O2SAT 93
[2021-07-22] MEDS: oxyCODONE HCl Immed Release 5 MG TABLET PO ×3 (04:11→18:25)
[2021-07-22 07:32] LABS: Glucose, Whole Blood 120 mg/dL (60-115)
[2021-07-22 08:00] VITALS: BP 145/84; PULSE 85; RESP 19; TEMP 36.4; O2SAT 92
[2021-07-22] MEDS: Thiamine HCL 100 MG TABLET 200 MG PO ×2 (09:25→19:45)
[2021-07-22] MEDS: Enoxaparin Sodium 40 MG/0.4 ML SYRINGE SUBCUT (09:25)
[2021-07-22] MEDS: lisinopriL 5 MG TABLET PO (09:25)
[2021-07-22] MEDS: 0.9 % Sodium Chloride Flush 3 ML SYRINGE IVFLUSH ×3 (09:25→19:45)
[2021-07-22] MEDS: fluvoxaMINE Maleate 50 MG TABLET 100 MG PO ×2 (09:25→19:45)
[2021-07-22] MEDS: predniSONE 10 MG TABLET PO (09:25)
[2021-07-22 11:31] LABS: Glucose, Whole Blood 234 mg/dL (60-115)
[2021-07-22 11:36] VITALS: BP 172/84; PULSE 76; RESP 18; TEMP 36.3; O2SAT 93
[2021-07-22] MEDS: Insulin Lispro 100 UNIT/ML 3 ML VIAL SUBCUT ×2 (11:58→17:18)
--- NOTE | 2021-07-22 12:45 | P.PNIM_ITS ---
Subjective Subjective Date of Service: 07/22/21 Interval History: Acute respiratory failure with hypoxia secondary to COVID-19 pneumonia Review of Systems denies any new c/o, any abd pain Physical Exam Vital Signs: Vital Signs: Last Vital Signs Temp 97.4 F 07/22/21 11:36 Pulse 76 07/22/21 11:36 Resp 18 07/22/21 11:36 BP 172/84 H 07/22/21 11:36 Pulse Ox 93 07/22/21 11:36 Oxygen Flow Rate 10 06/15/21 00:21 BMI result Body Mass Index 26.7 General: AO X 2, no acute distress Resp:? CTA bilateral CVS: S1,S2,RRR GI: +BS, NT, no distention Skin: No rash Neuro:? motor grossly intact Psych: appropriate affect Objective Data Active Medications Acetaminophen (Acetaminophen 325 Mg Tablet) 650 mg OG-TUBE Q6H PRN PRN Reason: Fever Last Admin: 07/19/21 15:21 Dose: 650 mg Documented by: JWBAMahesh Dextrose (Dextrose 50 % 25 Gm/50 Ml Syringe) 25 gm IVPUSH Q15M PRN PRN Reason: per Hypoglycemia Standing Ord. Last Admin: 07/18/21 01:43 Dose: 25 gm Documented by: ANDERM Docusate Sodium (Docusate Sodium 100 Mg Capsule) 100 mg PO DAILY PRN PRN Reason: Constipation Docusate Sodium (Docusate Sodium 100 Mg Capsule) 100 mg PO BEDTIME [facility] Last Admin: 07/21/21 20:19 Dose: Not Given Documented by: ANTOIC Non-Admin Reason: Loose stools Enoxaparin Sodium (Enoxaparin Sodium 40 Mg/0.4 Ml Syringe) 40 mg SUBCUT Q24H [facility] Last Admin: 07/22/21 09:25 Dose: 40 mg Documented by: COTEMA Fluvoxamine Maleate (Fluvoxamine Maleate 50 Mg Tablet) 100 mg PO BID [facility] Last Admin: 07/22/21 09:25 Dose: 100 mg Documented by: COTEMA Fluconazole (Diflucan) 200 mg in 100 mls @ 100 mls/hr IV Q24H [facility] Last Infusion: 07/21/21 18:36 Dose: 0 mls/hr Documented by: COTEMA Insulin Glargine (Insulin Glargine,Hum.Rec.Anlog 100 Unit/Ml 10 Ml Vial) 50 unit SUBCUT BID [facility] Last Admin: 07/17/21 21:06 Dose: Not Given Documented by: QUINN Non-Admin Reason: No Insulin Coverage Insulin Human Lispro (Insulin Lispro 100 Unit/Ml 3 Ml Vial) 0 unit SUBCUT Q6H [facility]; Protocol Last Admin: 07/22/21 11:58 Dose: 2 unit Documented by: COTEMA Lisinopril (Lisinopril 5 Mg Tablet) 5 mg PO DAILY [facility]; Protocol Last Admin: 07/22/21 09:25 Dose: 5 mg Documented by: COTEMA Methotrexate (Methotrexate Sodium 2.5 Mg Tablet) 25 mg PO Tu@1800 [facility] Last Admin: 07/17/21 21:10 Dose: 25 mg Documented by: QUINN Omeprazole (Omeprazole 20 Mg/10 Ml Susp.Recon) 40 mg PO DAILY@0630 [facility] Last Admin: 07/22/21 04:13 Dose: 40 mg Documented by: ANTOIC Oxycodone HCl (Oxycodone Hcl Immed Release 5 Mg Tablet) 5 mg PO Q6H PRN PRN Reason: Pain, Moderate (Pain Scale 4-6 Last Admin: 07/22/21 11:58 Dose: 5 mg Documented by: MITCHELL Polyethylene Glycol (Polyethylene Glycol 3350 17 Gm Powd.Pack) 17 gm PO DAILY [facility] Last Admin: 07/22/21 07:36 Dose: Not Given Documented by: MITCHELL Non-Admin Reason: Patient Refused Prednisone (Prednisone 10 Mg Tablet) 10 mg PO DAILY [facility] Last Admin: 07/22/21 09:25 Dose: 10 mg Documented by: MITCHELL Sodium Chloride (0.9 % Sodium Chloride Flush 3 Ml Syringe) 3 ml IVFLUSH QSHIFT [facility] Last Admin: 07/22/21 09:25 Dose: 3 ml Documented by: KATEYEMA Thiamine HCl (Thiamine Hcl 100 Mg Tablet) 200 mg PO BID [facility] Last Admin: 07/22/21 09:25 Dose: 200 mg Documented by: MITCHELL Labs CBC & Chem 7: 07/16/21 06:12 07/16/21 06:12 Labs: Laboratory Results - last 24 hr 07/21/21 07/21/21 07/22/21 16:07 20:04 07:24 POC Glucose 241 H 197 H 120 H 07/22/21 11:26 POC Glucose 234 H Assessment and Plan (1) Acute hypoxemic respiratory failure: Status: Acute Plan 60-year-old moderately obese with history of Crohn's disease on Stelara, prednisone, methotrexate, diabetes who presents to the emergency department with shortness of breath found to have hypoxia and COVID-19 positive on 06/15/21. On 06/19/21 he snorted cocaine in his room and developed precipitous hypoxemia requiring urgent intubation from developing? He developed the cocaine lung and cardiac toxicity with combined noncardiogenic as well as cardiogenic pulmonary edema? and he remained intubated for 3 weeks and was extubated on 07/11/21? and respiratory status has been stable on room air and transfered to [facility] on 07/12/21.? Clinically had secondary nosocomial bacterial pneumonia and currently Mayda tropicalis urinary tract infection and some persistent atelectasis bilaterally but he is nontoxic 1.Acute respiratory failure with hypoxia secondary to COVID-19 pneumonia, susan ursula induced noncardiogenic and cardiogenic? pulmonary edema that required prolonged intuabation--all resolved at this point, sating well on room air. No longer need covid isolation. 2.Abdominal pain--Exam is bening, CT shows non obstructing kidney stone. ?abd pain seems improving off solumedrol, start Prednisone. crohn dis: added stelara, mtx. Morphine for pain transition to oxycodone 3.Mood--used to be on? Remeron, Paxil but now on Luvox psych eval for medication review added- recommended to continue Luvox for now. 4.HTN--BP is ok, used to be on Lisinopril has not been on it for weeks now, consider restarting 5.Diabetes--was on glyburide at home, continue holding. Continue Lantus and SSI 6.Mayda tropicalis UTI--Continue Diflucan, id eval added for duration of diflucan. Diet: nutrition recommends Puree, thin Liquid. DVT prophylaxis -Lovenox Code status -full code awaiting placement Quality Stroke Does the patient have a stroke diagnosis?: No VTE Prior VTE?: No VTE Risk Level:: Medical - moderate - high VTE Device Contraindication: N/A - Device Ordered VTE Drug Contraindication: N/A - Med Ordered
[2021-07-22 15:24] VITALS: BP 127/85; PULSE 103; RESP 18; TEMP 37.1; O2SAT 91
[2021-07-22 15:47] LABS: Glucose, Whole Blood 215 mg/dL (60-115)
[2021-07-22] MEDS: Fluconazole in NaCl,Iso-Osm 200 MG/100 ML PIGGYBACK 100 MG IV (17:18)
[2021-07-22 19:10] VITALS: BP 154/106; PULSE 89; RESP 18; TEMP 37.2; O2SAT 90
[2021-07-22 20:00] LABS: Glucose, Whole Blood 213 mg/dL (60-115)
[2021-07-22 23:57] VITALS: BP 142/92; PULSE 95; RESP 18; TEMP 36.8; O2SAT 98
[2021-07-23] LABS: Glucose, Whole Blood 137 mg/dL (60-115)
[2021-07-23] MEDS: oxyCODONE HCl Immed Release 5 MG TABLET PO ×2 (05:11→19:57)
[2021-07-23 06:25] LABS: Glucose, Whole Blood 92 mg/dL (60-115)
[2021-07-23 07:32] VITALS: BP 125/78; PULSE 60; RESP 18; TEMP 36.6; O2SAT 94
[2021-07-23 07:43] LABS: Glucose, Whole Blood 101 mg/dL (60-115)
--- NOTE | 2021-07-23 07:51 | P.PNIM_ITS ---
Subjective Subjective Date of Service: 07/23/21 Interval History: Acute respiratory failure with hypoxia secondary to COVID-19 pneumonia-seems improved Review of Systems denies any new c/o, any abd pain Physical Exam Vital Signs: Vital Signs: Last Vital Signs Temp 97.8 F 07/23/21 07:32 Pulse 60 07/23/21 07:32 Resp 18 07/23/21 07:32 BP 125/78 07/23/21 07:32 Pulse Ox 94 07/23/21 07:32 Oxygen Flow Rate 10 06/15/21 00:21 BMI result Body Mass Index 26.7 General: AO X 2, no acute distress Resp:? CTA bilateral CVS: S1,S2,RRR GI: +BS, NT, no distention Skin: No rash Neuro:? motor grossly intact Psych: appropriate affect Objective Data Active Medications Acetaminophen (Acetaminophen 325 Mg Tablet) 650 mg OG-TUBE Q6H PRN PRN Reason: Fever Last Admin: 07/19/21 15:21 Dose: 650 mg Documented by: PITER Dextrose (Dextrose 50 % 25 Gm/50 Ml Syringe) 25 gm IVPUSH Q15M PRN PRN Reason: per Hypoglycemia Standing Ord. Last Admin: 07/18/21 01:43 Dose: 25 gm Documented by: QUINN Docusate Sodium (Docusate Sodium 100 Mg Capsule) 100 mg PO DAILY PRN PRN Reason: Constipation Docusate Sodium (Docusate Sodium 100 Mg Capsule) 100 mg PO BEDTIME [facility] Last Admin: 07/22/21 19:45 Dose: Not Given Documented by: JULIO CÉSAR Non-Admin Reason: Patient Refused Enoxaparin Sodium (Enoxaparin Sodium 40 Mg/0.4 Ml Syringe) 40 mg SUBCUT Q24H [facility] Last Admin: 07/22/21 09:25 Dose: 40 mg Documented by: MITCHELL Fluvoxamine Maleate (Fluvoxamine Maleate 50 Mg Tablet) 100 mg PO BID [facility] Last Admin: 07/22/21 19:45 Dose: 100 mg Documented by: JULIO CÉSAR Fluconazole (Diflucan) 200 mg in 100 mls @ 100 mls/hr IV Q24H [facility] Last Infusion: 07/22/21 18:20 Dose: 0 mls/hr Documented by: MITCHELL Insulin Glargine (Insulin Glargine,Hum.Rec.Anlog 100 Unit/Ml 10 Ml Vial) 50 unit SUBCUT BID [facility] Last Admin: 07/17/21 21:06 Dose: Not Given Documented by: QUINN Non-Admin Reason: No Insulin Coverage Insulin Human Lispro (Insulin Lispro 100 Unit/Ml 3 Ml Vial) 0 unit SUBCUT Q6H [facility]; Protocol Last Admin: 07/23/21 06:28 Dose: Not Given Documented by: JULIO CÉSAR Non-Admin Reason: No Insulin Coverage Lisinopril (Lisinopril 5 Mg Tablet) 5 mg PO DAILY [facility]; Protocol Last Admin: 07/22/21 09:25 Dose: 5 mg Documented by: MITCHELL Methotrexate (Methotrexate Sodium 2.5 Mg Tablet) 25 mg PO Tu@1800 [facility] Last Admin: 07/17/21 21:10 Dose: 25 mg Documented by: QUINN Omeprazole (Omeprazole 20 Mg/10 Ml Susp.Recon) 40 mg PO DAILY@0630 [facility] Last Admin: 07/23/21 05:11 Dose: 40 mg Documented by: JULIO CÉSAR Oxycodone HCl (Oxycodone Hcl Immed Release 5 Mg Tablet) 5 mg PO Q6H PRN PRN Reason: Pain, Moderate (Pain Scale 4-6 Last Admin: 07/23/21 05:11 Dose: 5 mg Documented by: JULIO CÉSAR Polyethylene Glycol (Polyethylene Glycol 3350 17 Gm Powd.Pack) 17 gm PO DAILY [facility] Last Admin: 07/22/21 07:36 Dose: Not Given Documented by: MITCHELL Non-Admin Reason: Patient Refused Prednisone (Prednisone 10 Mg Tablet) 10 mg PO DAILY [facility] Last Admin: 07/22/21 09:25 Dose: 10 mg Documented by: MITCHELL Sodium Chloride (0.9 % Sodium Chloride Flush 3 Ml Syringe) 3 ml IVFLUSH QSHIFT [facility] Last Admin: 07/22/21 19:45 Dose: 3 ml Documented by: JULIO CÉSAR Thiamine HCl (Thiamine Hcl 100 Mg Tablet) 200 mg PO BID [facility] Last Admin: 07/22/21 19:45 Dose: 200 mg Documented by: JULIO CÉSAR Labs CBC & Chem 7: 07/16/21 06:12 07/16/21 06:12 Labs: Laboratory Results - last 24 hr 07/22/21 07/22/21 07/22/21 11:26 15:21 19:09 POC Glucose 234 H 215 H 213 H 07/22/21 07/23/21 07/23/21 23:57 06:22 07:34 POC Glucose 137 H 92 101 Assessment and Plan (1) Mayda tropicalis infection: Status: Acute Plan 60-year-old moderately obese with history of Crohn's disease on Stelara, prednisone, methotrexate, diabetes who presents to the emergency department with shortness of breath found to have hypoxia and COVID-19 positive on 06/15/21. On 06/19/21 he snorted cocaine in his room and developed precipitous hypoxemia requiring urgent intubation from developing? He developed the cocaine lung and cardiac toxicity with combined noncardiogenic as well as cardiogenic pulmonary edema? and he remained intubated for 3 weeks and was extubated on 07/11/21? and respiratory status has been stable on room air and transfered to [facility] on 07/12/21.? Clinically had secondary nosocomial bacterial pneumonia and currently Mayda tropicalis urinary tract infection and some persistent atelectasis bilaterally but he is nontoxic 1.Acute respiratory failure with hypoxia secondary to COVID-19 pneumonia, susan ursula induced noncardiogenic and cardiogenic? pulmonary edema that required prolonged intuabation--all resolved at this point, sating well on room air. No longer need covid isolation. 2.Abdominal pain--Exam is bening, CT shows non obstructing kidney stone. ?abd pain seems improving off solumedrol, start Prednisone. crohn dis: added stelara, mtx. Morphine for pain transition to oxycodone 3.Mood--used to be on? Remeron, Paxil but now on Luvox psych eval for medication review added- recommended to continue Luvox for now. 4.HTN--BP is ok, used to be on Lisinopril has not been on it for weeks now, consider restarting 5.Diabetes--was on glyburide at home, continue holding. Continue Lantus and SSI 6.Mayda tropicalis UTI---seen by ID :Diflucan 200 mg daily for 14 d ?occult fungemia- day 13 for diflucan. Diet: nutrition recommends Puree, thin Liquid. DVT prophylaxis -Lovenox Code status -full code awaiting placement Quality Stroke Does the patient have a stroke diagnosis?: No VTE Prior VTE?: No VTE Risk Level:: Medical - moderate - high VTE Device Contraindication: N/A - Device Ordered VTE Drug Contraindication: N/A - Med Ordered
[2021-07-23] MEDS: fluvoxaMINE Maleate 50 MG TABLET 100 MG PO ×2 (09:26→19:57)
[2021-07-23] MEDS: polyethylene glycoL 3350 17 GM POWD.PACK PO (09:26)
[2021-07-23] MEDS: Enoxaparin Sodium 40 MG/0.4 ML SYRINGE SUBCUT (09:26)
[2021-07-23] MEDS: 0.9 % Sodium Chloride Flush 3 ML SYRINGE IVFLUSH ×3 (09:26→19:57)
[2021-07-23] MEDS: lisinopriL 5 MG TABLET PO (09:26)
[2021-07-23] MEDS: predniSONE 10 MG TABLET PO (09:26)
[2021-07-23] MEDS: Thiamine HCL 100 MG TABLET 200 MG PO ×2 (09:27→19:57)
--- NOTE | 2021-07-23 11:30 | MHC.CM.PN ---
Ongoing broad SNF search is in place. [facility] [place] is following for bed availability. Patient did Cocaine in his room here on 06/19/21, which appears to be the biggest barrier to dc. CM will continue to follow.
[2021-07-23 11:32] VITALS: BP 109/81; PULSE 74; RESP 18; TEMP 36.6; O2SAT 90
[2021-07-23 11:43] LABS: Glucose, Whole Blood 160 mg/dL (60-115)
--- NOTE | 2021-07-23 14:18 | MHC.CLN ---
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
[2021-07-23 15:30] VITALS: BP 140/82; PULSE 100; RESP 18; TEMP 36.4; O2SAT 93
[2021-07-23 16:13] LABS: Glucose, Whole Blood 175 mg/dL (60-115)
[2021-07-23 18:04] LABS: Glucose, Whole Blood 161 mg/dL (60-115)
[2021-07-23] MEDS: Fluconazole in NaCl,Iso-Osm 200 MG/100 ML PIGGYBACK 100 MG IV (18:20)
[2021-07-23 19:41] VITALS: BP 127/88; PULSE 95; RESP 16; TEMP 36.1; O2SAT 94
[2021-07-23 23:47] VITALS: BP 174/93; PULSE 94; RESP 20; TEMP 35.9; O2SAT 93
[2021-07-24] VITALS (7 sets, daily range): BP systolic 136–183; BP diastolic 78–96; PULSE 67–111; RESP 16–20; TEMP 35.9–36.5; O2SAT 91–97
[2021-07-24 00:52] LABS: Glucose, Whole Blood 125 mg/dL (60-115)
[2021-07-24] MEDS: oxyCODONE HCl Immed Release 5 MG TABLET PO ×2 (03:49→14:12)
[2021-07-24 05:43] LABS: Glucose, Whole Blood 94 mg/dL (60-115)
[2021-07-24 07:32] LABS: Anion Gap 15 (12-20); Blood Urea Nitrogen 10 mg/dL (9-16); Calcium 8.9 mg/dL (8.4-10.2); Carbon Dioxide 29 mmol/L (22-29); Chloride 101 mmol/L (96-108); Estimated Glomerular Filt Rate > 60; Glucose Random 103 mg/dL (60-115); Potassium 4.1 mmol/L (3.3-5.1); Sodium 141 mmol/L (135-145)
[2021-07-24 07:49] LABS: Glucose, Whole Blood 86 mg/dL (60-115)
[2021-07-24] MEDS: lisinopriL 5 MG TABLET PO (09:40)
[2021-07-24] MEDS: polyethylene glycoL 3350 17 GM POWD.PACK PO (09:40)
[2021-07-24] MEDS: Thiamine HCL 100 MG TABLET 200 MG PO ×2 (09:40→20:46)
[2021-07-24] MEDS: Enoxaparin Sodium 40 MG/0.4 ML SYRINGE SUBCUT (09:40)
[2021-07-24] MEDS: fluvoxaMINE Maleate 50 MG TABLET 100 MG PO ×2 (09:40→20:46)
[2021-07-24] MEDS: 0.9 % Sodium Chloride Flush 3 ML SYRINGE IVFLUSH ×2 (09:41→18:24)
[2021-07-24] MEDS: predniSONE 10 MG TABLET PO (09:41)
[2021-07-24 11:23] LABS: Glucose, Whole Blood 179 mg/dL (60-115)
--- NOTE | 2021-07-24 12:07 | P.PNIM_ITS ---
Subjective Subjective Date of Service: 07/24/21 Interval History: F/u respiratory failure from covid and cocaine induced lung injury and required prolonged intubation and mechanical ventilation in the ICU for 3 weeks, he is recovering well and awaiting rehab placement Review of Systems no fever or chills, abd pain is better Physical Exam Vital Signs: Vital Signs: Last Vital Signs Temp 97.7 F 07/24/21 11:16 Pulse 88 07/24/21 11:17 Resp 18 07/24/21 11:16 BP 146/78 H 07/24/21 11:17 Pulse Ox 93 07/24/21 11:17 Oxygen Flow Rate 10 06/15/21 00:21 BMI result Body Mass Index 26.7 Const: Other: General: AO X 3, no acute distress Resp: CTA bilateral CVS: S1,S2,RRR GI: +BS, NT, no distention Skin: No rash Neuro: motor grossly intact Psych: appropriate affect Objective Data Active Medications Acetaminophen (Acetaminophen 325 Mg Tablet) 650 mg OG-TUBE Q6H PRN PRN Reason: Fever Last Admin: 07/19/21 15:21 Dose: 650 mg Documented by: PITER Dextrose (Dextrose 50 % 25 Gm/50 Ml Syringe) 25 gm IVPUSH Q15M PRN PRN Reason: per Hypoglycemia Standing Ord. Last Admin: 07/18/21 01:43 Dose: 25 gm Documented by: QUINN Docusate Sodium (Docusate Sodium 100 Mg Capsule) 100 mg PO DAILY PRN PRN Reason: Constipation Docusate Sodium (Docusate Sodium 100 Mg Capsule) 100 mg PO BEDTIME [facility] Last Admin: 07/23/21 19:59 Dose: Not Given Documented by: JULIO CÉSAR Non-Admin Reason: Patient Refused Enoxaparin Sodium (Enoxaparin Sodium 40 Mg/0.4 Ml Syringe) 40 mg SUBCUT Q24H [facility] Last Admin: 07/24/21 09:40 Dose: 40 mg Documented by: INGRID Fluvoxamine Maleate (Fluvoxamine Maleate 50 Mg Tablet) 100 mg PO BID [facility] Last Admin: 07/24/21 09:40 Dose: 100 mg Documented by: INGRID Fluconazole (Diflucan) 200 mg in 100 mls @ 100 mls/hr IV Q24H [facility] Stop: 07/24/21 19:00 Last Infusion: 07/23/21 19:53 Dose: 0 mls/hr Documented by: JULIO CÉSAR Insulin Glargine (Insulin Glargine,Hum.Rec.Anlog 100 Unit/Ml 10 Ml Vial) 50 unit SUBCUT BID [facility] Last Admin: 07/17/21 21:06 Dose: Not Given Documented by: QUINN Non-Admin Reason: No Insulin Coverage Insulin Human Lispro (Insulin Lispro 100 Unit/Ml 3 Ml Vial) 0 unit SUBCUT Q6H [facility]; Protocol Last Admin: 07/24/21 11:59 Dose: Not Given Documented by: INGRID Non-Admin Reason: No Insulin Coverage Lisinopril (Lisinopril 5 Mg Tablet) 5 mg PO DAILY [facility]; Protocol Last Admin: 07/24/21 09:40 Dose: 5 mg Documented by: INGRID Methotrexate (Methotrexate Sodium 2.5 Mg Tablet) 25 mg PO Tu@1800 [facility] Last Admin: 07/17/21 21:10 Dose: 25 mg Documented by: QUINN Omeprazole (Omeprazole 20 Mg/10 Ml Susp.Recon) 40 mg PO DAILY@0630 [facility] Last Admin: 07/24/21 05:36 Dose: 40 mg Documented by: JULIO CÉSAR Oxycodone HCl (Oxycodone Hcl Immed Release 5 Mg Tablet) 5 mg PO Q6H PRN PRN Reason: Pain, Moderate (Pain Scale 4-6 Last Admin: 07/24/21 03:49 Dose: 5 mg Documented by: JULIO CÉSAR Polyethylene Glycol (Polyethylene Glycol 3350 17 Gm Powd.Pack) 17 gm PO DAILY [facility] Last Admin: 07/24/21 09:40 Dose: 17 gm Documented by: INGRID Prednisone (Prednisone 10 Mg Tablet) 10 mg PO DAILY [facility] Last Admin: 07/24/21 09:41 Dose: 10 mg Documented by: INGRID Sodium Chloride (0.9 % Sodium Chloride Flush 3 Ml Syringe) 3 ml IVFLUSH QSHIFT [facility] Last Admin: 07/24/21 09:41 Dose: 3 ml Documented by: INGRID Thiamine HCl (Thiamine Hcl 100 Mg Tablet) 200 mg PO BID [facility] Last Admin: 07/24/21 09:40 Dose: 200 mg Documented by: INGRID Labs CBC & Chem 7: 0207/22 06:12 07/24/21 06:46 Labs: Laboratory Results - last 24 hr 07/23/21 07/23/21 07/24/21 16:11 18:00 00:48 Anion Gap Estim Creat Clear Calc Estimated GFR POC Glucose 175 H 161 H 125 H Random Glucose Calcium 07/24/21 07/24/21 07/24/21 05:39 06:46 07:45 Anion Gap 15 Estim Creat Clear Calc 176.0 Estimated GFR > 60 POC Glucose 94 86 Random Glucose 103 Calcium 8.9 D 07/24/21 11:17 Anion Gap Estim Creat Clear Calc Estimated GFR POC Glucose 179 H Random Glucose Calcium Assessment and Plan (1) Mayda tropicalis infection: Status: Acute (2) Crohn disease: Status: Acute (3) Pneumonia due to COVID-19 virus: Status: Acute Plan 60-year-old moderately obese with history of Crohn's disease on Stelara, prednisone, methotrexate, diabetes who presents to the emergency department with shortness of breath found to have hypoxia and COVID-19 positive on 06/15/21. On 06/19/21 he snorted cocaine in his room and developed precipitous hypoxemia requiring urgent intubation from developing? He developed the cocaine lung and cardiac toxicity with combined noncardiogenic as well as cardiogenic pulmonary e lorenza? and he remained intubated for 3 weeks and was extubated on 07/11/21? and respiratory status has been stable on room air and transfered to [facility] on 07/12/21.? Clinically had secondary nosocomial bacterial pneumonia and currently Mayda tropicalis urinary tract infection and some persistent atelectasis bilaterally but he is nontoxic 1.Acute respiratory failure with hypoxia secondary to COVID-19 pneumonia, cocaine induced noncardiogenic and cardiogenic? pulmonary edema that required prolonged intuabation--all resolved at this point, sating well on room air. 2.Abdominal pain--Exam is bening, CT shows non obstructing kidney stone. abd pain seems improving off solumedrol, start Prednisone. crohn dis: on stelara, mtx. Morphine for pain transition to oxycodone 3.Mood--used to be on? Remeron, Paxil but now on Luvox psych eval for medication review added- recommended to continue Luvox for now. 4.HTN--BP is ok, used to be on Lisinopril has not been on it for weeks now, incrase dose to 10 from 5 5.Diabetes--was on glyburide at home, continue holding. Continue Lantus and SSI 6.Mayda tropicalis UTI---seen by ID :Diflucan 200 mg daily for 14 d ?occult fungemia- day 14/14 for diflucan. Diet: nutrition recommends Puree, thin Liquid. DVT prophylaxis -Lovenox Code status -full code awaiting placement Quality Stroke Does the patient have a stroke diagnosis?: No VTE Prior VTE?: No VTE Risk Level:: Medical - moderate - high VTE Device Contraindication: N/A - Device Ordered VTE Drug Contraindication: N/A - Med Ordered
[2021-07-24 18:20] LABS: Glucose, Whole Blood 224 mg/dL (60-115)
[2021-07-24] MEDS: Insulin Lispro 100 UNIT/ML 3 ML VIAL SUBCUT (18:24)
[2021-07-24] MEDS: metHOTREXate sodium 2.5 MG TABLET 25 MG PO (18:25)
[2021-07-24] MEDS: Fluconazole in NaCl,Iso-Osm 200 MG/100 ML PIGGYBACK 100 MG IV (18:32)
[2021-07-24] MEDS: Docusate Sodium 100 MG CAPSULE PO (20:46)
[2021-07-24 23:46] LABS: Glucose, Whole Blood 102 mg/dL (60-115)
[2021-07-25] MEDS: 0.9 % Sodium Chloride Flush 3 ML SYRINGE IVFLUSH ×3 (00:05→17:10)
[2021-07-25 03:23] VITALS: BP 143/76; PULSE 79; RESP 18; TEMP 36.1; O2SAT 94
[2021-07-25 05:57] LABS: Glucose, Whole Blood 90 mg/dL (60-115)
[2021-07-25 07:27] VITALS: BP 140/85; PULSE 66; RESP 18; TEMP 36.6; O2SAT 94
[2021-07-25 07:36] LABS: Glucose, Whole Blood 85 mg/dL (60-115)
[2021-07-25] MEDS: Thiamine HCL 100 MG TABLET 200 MG PO ×2 (07:51→21:16)
[2021-07-25] MEDS: fluvoxaMINE Maleate 50 MG TABLET 100 MG PO ×2 (07:52→21:16)
[2021-07-25] MEDS: lisinopriL 5 MG TABLET PO (07:52)
[2021-07-25] MEDS: predniSONE 10 MG TABLET PO (07:52)
[2021-07-25] MEDS: Enoxaparin Sodium 40 MG/0.4 ML SYRINGE SUBCUT (07:53)
[2021-07-25 10:46] VITALS: BP 140/85; PULSE 66; O2SAT 94
[2021-07-25 11:18] VITALS: BP 122/87; PULSE 89; RESP 18; TEMP 36.2; O2SAT 95
--- NOTE | 2021-07-25 11:26 | PC.NURSE ---
Skin wound assessment completed today. Patient has a stage 2 to coccyx. Triad applied covered with foam dressing. Wound from rectal tube has healed. Explained to patient he needs to turn off his coccyx every 2 hours to prevent it from getting worse, he verbally understood.
[2021-07-25 11:28] LABS: Glucose, Whole Blood 154 mg/dL (60-115)
--- NOTE | 2021-07-25 11:42 | P.PNIM_ITS ---
Subjective Subjective Date of Service: 07/25/21 Interval History: F/u respiratory failure from covid and cocaine induced lung injury and required prolonged intubation and mechanical ventilation in the ICU for 3 weeks, he is recovering well and awaiting rehab placement.. no new issues Review of Systems no fever or chills, abd pain is better Physical Exam Vital Signs: Vital Signs: Last Vital Signs Temp 97.2 F 07/25/21 11:18 Pulse 89 07/25/21 11:18 Resp 18 07/25/21 11:18 BP 122/87 07/25/21 11:18 Pulse Ox 95 07/25/21 11:18 Oxygen Flow Rate 10 06/15/21 00:21 BMI result Body Mass Index 26.7 Const: Other: General: AO X 3, no acute distress Resp: CTA bilateral CVS: S1,S2,RRR GI: +BS, NT, no distention Skin: No rash Neuro: motor grossly intact Psych: appropriate affect Objective Data Active Medications Acetaminophen (Acetaminophen 325 Mg Tablet) 650 mg OG-TUBE Q6H PRN PRN Reason: Fever Last Admin: 07/19/21 15:21 Dose: 650 mg Documented by: PITER Dextrose (Dextrose 50 % 25 Gm/50 Ml Syringe) 25 gm IVPUSH Q15M PRN PRN Reason: per Hypoglycemia Standing Ord. Last Admin: 07/18/21 01:43 Dose: 25 gm Documented by: QUINN Docusate Sodium (Docusate Sodium 100 Mg Capsule) 100 mg PO DAILY PRN PRN Reason: Constipation Docusate Sodium (Docusate Sodium 100 Mg Capsule) 100 mg PO BEDTIME [facility] Last Admin: 07/24/21 20:46 Dose: 100 mg Documented by: CLARA Enoxaparin Sodium (Enoxaparin Sodium 40 Mg/0.4 Ml Syringe) 40 mg SUBCUT Q24H [facility] Last Admin: 07/25/21 07:53 Dose: 40 mg Documented by: GURDEEP Fluvoxamine Maleate (Fluvoxamine Maleate 50 Mg Tablet) 100 mg PO BID [facility] Last Admin: 07/25/21 07:52 Dose: 100 mg Documented by: GURDEEP Insulin Glargine (Insulin Glargine,Hum.Rec.Anlog 100 Unit/Ml 10 Ml Vial) 50 unit SUBCUT BID [facility] Last Admin: 07/17/21 21:06 Dose: Not Given Documented by: QUINN Non-Admin Reason: No Insulin Coverage Insulin Human Lispro (Insulin Lispro 100 Unit/Ml 3 Ml Vial) 0 unit SUBCUT Q6H [facility]; Protocol Last Admin: 07/25/21 05:54 Dose: Not Given Documented by: CLARA Non-Admin Reason: No Insulin Coverage Lisinopril (Lisinopril 5 Mg Tablet) 5 mg PO DAILY [facility]; Protocol Last Admin: 07/25/21 07:52 Dose: 5 mg Documented by: GURDEEP Methotrexate (Methotrexate Sodium 2.5 Mg Tablet) 25 mg PO Tu@1800 [facility] Last Admin: 07/24/21 18:25 Dose: 25 mg Documented by: INGRID Omeprazole (Omeprazole 20 Mg/10 Ml Susp.Recon) 40 mg PO DAILY@0630 [facility] Last Admin: 07/25/21 05:54 Dose: 40 mg Documented by: CLARA Oxycodone HCl (Oxycodone Hcl Immed Release 5 Mg Tablet) 5 mg PO Q6H PRN PRN Reason: Pain, Moderate (Pain Scale 4-6 Last Admin: 07/24/21 14:12 Dose: 5 mg Documented by: INGRID Polyethylene Glycol (Polyethylene Glycol 3350 17 Gm Powd.Pack) 17 gm PO DAILY [facility] Last Admin: 07/25/21 07:55 Dose: Not Given Documented by: GURDEEP Non-Admin Reason: pt has loose stool Prednisone (Prednisone 10 Mg Tablet) 10 mg PO DAILY [facility] Last Admin: 07/25/21 07:52 Dose: 10 mg Documented by: GURDEEP Sodium Chloride (0.9 % Sodium Chloride Flush 3 Ml Syringe) 3 ml IVFLUSH QSHIFT [facility] Last Admin: 07/25/21 07:54 Dose: 3 ml Documented by: GURDEEP Thiamine HCl (Thiamine Hcl 100 Mg Tablet) 200 mg PO BID [facility] Last Admin: 07/25/21 07:51 Dose: 200 mg Documented by: GURDEEP Labs CBC & Chem 7: 07/16/21 06:12 07/24/21 06:46 Labs: Laboratory Results - last 24 hr 07/24/21 07/24/21 07/25/21 18:18 23:42 05:53 POC Glucose 224 H 102 90 07/25/21 07/25/21 07:29 11:24 POC Glucose 85 154 H Assessment and Plan (1) Mayda tropicalis infection: Status: Acute (2) Crohn disease: Status: Acute (3) Pneumonia due to COVID-19 virus: Status: Acute Plan 60-year-old moderately obese with history of Crohn's disease on Stelara, prednisone, methotrexate, diabetes who presents to the emergency department with shortness of breath found to have hypoxia and COVID-19 positive on 06/15/21. On 06/19/21 he snorted cocaine in his room and developed precipitous hypoxemia requiring urgent intubation from developing? He developed the cocaine lung and cardiac toxicity with combined noncardiogenic as well as cardiogenic pulmonary edema? and he remained intubated for 3 weeks and was extubated on 07/11/21? and respiratory status has been stable on room air and transfered to [facility] on 07/12/21.? Clinically had secondary nosocomial bacterial pneumonia and currently Mayda tropicalis urinary tract infection and some persistent atelectasis bilaterally but he is nontoxic 1.Acute respiratory failure with hypoxia secondary to COVID-19 pneumonia, cocaine induced noncardiogenic and cardiogenic? pulmonary edema that required prolonged intuabation--all resolved at this point, sating well on room air. 2.Abdominal pain--Exam is bening, CT shows non obstructing kidney stone. abd pain seems improving off solumedrol, on Prednisone crohn dis: on stelara, mtx. Morphine for pain transition to oxycodone 3.Mood--used to be on? Remeron, Paxil but now on Luvox psych eval for medication review added- recommended to continue Luvox for now. 4.HTN--BP is ok, used to be on Lisinopril has not been on it for weeks now, incrase dose to 10 from 5 5.Diabetes--was on glyburide at home, continue holding. Continue Lantus and SSI 6.Mayda tropicalis UTI---seen by ID :Diflucan 200 mg daily for 14 d ?occult fungemia- day 14/14 for diflucan. Diet: nutrition recommends Puree, thin Liquid. DVT prophylaxis -Lovenox Code status -full code awaiting placement Quality Stroke Does the patient have a stroke diagnosis?: No VTE Prior VTE?: No VTE Risk Level:: Medical - moderate - high VTE Device Contraindication: N/A - Device Ordered VTE Drug Contraindication: N/A - Med Ordered
--- NOTE | 2021-07-25 11:46 | MHC.CLN ---
F/U PO INTAKE IMPROVED DIET RX: 2200DM REGULAR-APPROPRIATE PT REQUESTING FOOD/MEAL ITEMS NOT CONSISTENT WITH LOW FIBER DIET RESTRICTIONS MD NOTED ABDOMINAL PAIN IMPROVING R/T CROHN'S/COLITIS DZ D/C LOW FIBER DIET RESTRICTION TO ALLOW MORE VARIETY IN MEAL CHOICES PT RECEIVING GLUCERNA BID TO INCREASE KCALS AND PROMOTE WOUND HEALING SUPP PROVIDES 474KCALS, 20G PROTEIN WITH 100% ACCEPTANCE CONTINUE TO MONITOR PO INTAKE CLOSELY
--- NOTE | 2021-07-25 15:24 | MHC.CM.PN ---
Broad snf search is ongoing.
[2021-07-25] MEDS: oxyCODONE HCl Immed Release 5 MG TABLET PO (15:37)
[2021-07-25 15:39] VITALS: BP 140/95; PULSE 100; RESP 18; TEMP 36.6; O2SAT 92
[2021-07-25 16:21] LABS: Glucose, Whole Blood 278 mg/dL (60-115)
[2021-07-25] MEDS: Insulin Lispro 100 UNIT/ML 3 ML VIAL SUBCUT ×2 (17:08→21:17)
[2021-07-25 19:26] VITALS: BP 140/83; PULSE 90; RESP 15; TEMP 36.6; O2SAT 93
[2021-07-25 20:49] LABS: Glucose, Whole Blood 215 mg/dL (60-115)
[2021-07-25] MEDS: Docusate Sodium 100 MG CAPSULE PO (21:16)
[2021-07-26] VITALS (9 sets, daily range): BP systolic 123–163; BP diastolic 71–89; PULSE 84–119; RESP 16–18; TEMP 36.1–37.1; O2SAT 91–93
[2021-07-26] MEDS: 0.9 % Sodium Chloride Flush 3 ML SYRINGE IVFLUSH ×4 (01:00→21:37)
[2021-07-26 07:27] LABS: Glucose, Whole Blood 102 mg/dL (60-115)
[2021-07-26] MEDS: Enoxaparin Sodium 40 MG/0.4 ML SYRINGE SUBCUT (08:32)
[2021-07-26] MEDS: predniSONE 10 MG TABLET PO (08:34)
[2021-07-26] MEDS: Thiamine HCL 100 MG TABLET 200 MG PO ×2 (08:34→21:37)
[2021-07-26] MEDS: fluvoxaMINE Maleate 50 MG TABLET 100 MG PO ×2 (08:34→21:37)
[2021-07-26] MEDS: lisinopriL 5 MG TABLET PO (08:34)
[2021-07-26 11:12] LABS: Glucose, Whole Blood 252 mg/dL (60-115)
--- NOTE | 2021-07-26 11:56 | HO.PM.IMPN ---
Subjective Subjective Date of Service: 07/26/21 Interval History: F/u respiratory failure from covid and cocaine induced lung injury and required prolonged intubation and mechanical ventilation in the ICU for 3 weeks, he is recovering well and awaiting rehab placement.. no new issues. For the first time he has been able to stand with PT Review of Systems no fever or chills, abd pain is better Physical Exam Vital Signs: Vital Signs: Last Vital Signs Temp 97.6 F 07/26/21 10:53 Pulse 119 H 07/26/21 10:53 Resp 18 07/26/21 10:53 BP 123/82 07/26/21 10:53 Pulse Ox 93 07/26/21 10:53 Oxygen Flow Rate 10 06/15/21 00:21 BMI result Body Mass Index 26.7 Const: Other: General: AO X 3, no acute distress Resp: CTA bilateral CVS: S1,S2,RRR GI: +BS, NT, no distention Skin: No rash Neuro: motor grossly intact Psych: appropriate affect Objective Data Active Medications Acetaminophen (Acetaminophen 325 Mg Tablet) 650 mg OG-TUBE Q6H PRN PRN Reason: Fever Last Admin: 07/19/21 15:21 Dose: 650 mg Documented by: PITER Dextrose (Dextrose 50 % 25 Gm/50 Ml Syringe) 25 gm IVPUSH Q15M PRN PRN Reason: per Hypoglycemia Standing Ord. Last Admin: 07/18/21 01:43 Dose: 25 gm Documented by: QUINN Docusate Sodium (Docusate Sodium 100 Mg Capsule) 100 mg PO DAILY PRN PRN Reason: Constipation Docusate Sodium (Docusate Sodium 100 Mg Capsule) 100 mg PO BEDTIME [facility] Last Admin: 07/25/21 21:16 Dose: 100 mg Documented by: HANDY Enoxaparin Sodium (Enoxaparin Sodium 40 Mg/0.4 Ml Syringe) 40 mg SUBCUT Q24H [facility] Last Admin: 07/26/21 08:32 Dose: 40 mg Documented by: MOIRA Fluvoxamine Maleate (Fluvoxamine Maleate 50 Mg Tablet) 100 mg PO BID [facility] Last Admin: 07/26/21 08:34 Dose: 100 mg Documented by: MOIRA Insulin Glargine (Insulin Glargine,Hum.Rec.Anlog 100 Unit/Ml 10 Ml Vial) 50 unit SUBCUT BID [facility] Last Admin: 07/17/21 21:06 Dose: Not Given Documented by: QUINN Non-Admin Reason: No Insulin Coverage Insulin Human Lispro (Insulin Lispro 100 Unit/Ml 3 Ml Vial) 0 unit SUBCUT QIDACHS [facility]; Protocol Last Admin: 07/26/21 07:33 Dose: Not Given Documented by: MOIRA Non-Admin Reason: No Insulin Coverage Lisinopril (Lisinopril 5 Mg Tablet) 5 mg PO DAILY [facility]; Protocol Last Admin: 07/26/21 08:34 Dose: 5 mg Documented by: MOIRA Methotrexate (Methotrexate Sodium 2.5 Mg Tablet) 25 mg PO Tu@1800 [facility] Last Admin: 07/24/21 18:25 Dose: 25 mg Documented by: INGRID Omeprazole (Omeprazole 20 Mg/10 Ml Susp.Recon) 40 mg PO DAILY@0630 [facility] Last Admin: 07/26/21 04:48 Dose: 40 mg Documented by: KAREN Oxycodone HCl (Oxycodone Hcl Immed Release 5 Mg Tablet) 5 mg PO Q6H PRN PRN Reason: Pain, Moderate (Pain Scale 4-6 Last Admin: 07/25/21 15:37 Dose: 5 mg Documented by: GURDEEP Polyethylene Glycol (Polyethylene Glycol 3350 17 Gm Powd.Pack) 17 gm PO DAILY [facility] Last Admin: 07/26/21 08:34 Dose: Not Given Documented by: MOIRA Non-Admin Reason: loose stool this am Prednisone (Prednisone 10 Mg Tablet) 10 mg PO DAILY [facility] Last Admin: 07/26/21 08:34 Dose: 10 mg Documented by: MOIRA Sodium Chloride (0.9 % Sodium Chloride Flush 3 Ml Syringe) 3 ml IVFLUSH QSHIFT [facility] Last Admin: 07/26/21 08:33 Dose: 3 ml Documented by: MOIRA Thiamine HCl (Thiamine Hcl 100 Mg Tablet) 200 mg PO BID [facility] Last Admin: 07/26/21 08:34 Dose: 200 mg Documented by: MOIRA Labs CBC & Chem 7: 07/16/21 06:12 07/24/21 06:46 Labs: Laboratory Results - last 24 hr 07/25/21 07/25/21 07/26/21 16:17 20:43 07:15 POC Glucose 278 H 215 H 102 07/26/21 10:56 POC Glucose 252 H Assessment and Plan (1) Mayda tropicalis infection: Status: Acute (2) Crohn disease: Status: Acute (3) Pneumonia due to COVID-19 virus: Status: Acute Plan 60-year-old moderately obese with history of Crohn's disease on Stelara, prednisone, methotrexate, diabetes who presents to the emergency department with shortness of breath found to have hypoxia and COVID-19 positive on 06/15/21. On 06/19/21 he snorted cocaine in his room and developed precipitous hypoxemia requiring urgent intubation from developing? He developed the cocaine lung and cardiac toxicity with combined noncardiogenic as well as cardiogenic pulmonary edema? and he remained intubated for 3 weeks and was extubated on 07/11/21? and respiratory status has been stable on room air and transfered to [facility] on 07/12/21.? Clinically had secondary nosocomial bacterial pneumonia and currently Mayda tropicalis urinary tract infection and some persistent atelectasis bilaterally but he is nontoxic 1.Acute respiratory failure with hypoxia secondary to COVID-19 pneumonia, cocaine induced noncardiogenic and cardiogenic? pulmonary edema that required prolonged intuabation--all resolved at this point, sating well on room air. 2.Abdominal pain--Exam is bening, CT shows non obstructing kidney stone. abd pain seems improving off solumedrol, on Prednisone crohn dis: on stelara, mtx. Morphine for pain transition to oxycodone 3.Mood--used to be on? Remeron, Paxil but now on Luvox psych eval for medication review added- recommended to continue Luvox for now. 4.HTN--BP is ok, used to be on Lisinopril has not been on it for weeks now, incrase dose to 10 from 5 5.Diabetes--was on glyburide at home, continue holding. Continue Lantus and SSI 6.Mayda tropicalis UTI---seen by ID :Diflucan 200 mg daily for 14 d ?occult fungemia- day 14/14 for diflucan. Diet: nutrition recommends Puree, thin Liquid. DVT prophylaxis -Lovenox Code status -full code awaiting placement, and to continue to work with PT and if gets better maybe able to go home. Quality Stroke Does the patient have a stroke diagnosis?: No VTE Prior VTE?: No VTE Risk Level:: Medical - moderate - high VTE Device Contraindication: N/A - Device Ordered VTE Drug Contraindication: N/A - Med Ordered
[2021-07-26] MEDS: Insulin Lispro 100 UNIT/ML 3 ML VIAL SUBCUT (12:49)
[2021-07-26 17:13] LABS: Glucose, Whole Blood 150 mg/dL (60-115)
[2021-07-26] MEDS: oxyCODONE HCl Immed Release 5 MG TABLET PO (18:34)
[2021-07-26 20:33] LABS: Glucose, Whole Blood 174 mg/dL (60-115)
[2021-07-27] VITALS (7 sets, daily range): BP systolic 125–148; BP diastolic 64–92; PULSE 54–102; RESP 16–20; TEMP 36.1–37.5; O2SAT 91–95
[2021-07-27] MEDS: oxyCODONE HCl Immed Release 5 MG TABLET PO ×2 (00:41→08:36)
[2021-07-27 07:40] LABS: Glucose, Whole Blood 116 mg/dL (60-115)
[2021-07-27] MEDS: 0.9 % Sodium Chloride Flush 3 ML SYRINGE IVFLUSH ×2 (08:34→16:36)
[2021-07-27] MEDS: fluvoxaMINE Maleate 50 MG TABLET 100 MG PO ×2 (08:34→20:09)
[2021-07-27] MEDS: Thiamine HCL 100 MG TABLET 200 MG PO ×2 (08:34→20:09)
[2021-07-27] MEDS: Enoxaparin Sodium 40 MG/0.4 ML SYRINGE SUBCUT (08:34)
[2021-07-27] MEDS: lisinopriL 5 MG TABLET PO (08:34)
[2021-07-27] MEDS: predniSONE 10 MG TABLET PO (08:34)
--- NOTE | 2021-07-27 10:02 | MHC.CM.PN ---
Ongoing broad snf search is in progress; [facility] facilities are following for bed availability. CM will continue to follow.
--- NOTE | 2021-07-27 10:07 | HO.PM.IMPN ---
Subjective Subjective Date of Service: 07/27/21 Interval History: F/u respiratory failure from covid and cocaine induced lung injury and required prolonged intubation and mechanical ventilation in the ICU for 3 weeks, he is recovering well and awaiting rehab placement.. no new issues. Making small progress with PT Review of Systems no fever or chills, abd pain is better Physical Exam Vital Signs: Vital Signs: Last Vital Signs Temp 97.0 F 07/27/21 07:48 Pulse 81 07/27/21 10:01 Resp 20 07/27/21 07:48 BP 141/64 H 07/27/21 10:01 Pulse Ox 94 07/27/21 10:01 Oxygen Flow Rate 10 06/15/21 00:21 BMI result Body Mass Index 26.7 Const: Other: General: AO X 3, no acute distress Resp: CTA bilateral CVS: S1,S2,RRR GI: +BS, NT, no distention Skin: No rash Neuro: motor grossly intact Psych: appropriate affect Objective Data Active Medications Acetaminophen (Acetaminophen 325 Mg Tablet) 650 mg OG-TUBE Q6H PRN PRN Reason: Fever Last Admin: 07/19/21 15:21 Dose: 650 mg Documented by: PITER Dextrose (Dextrose 50 % 25 Gm/50 Ml Syringe) 25 gm IVPUSH Q15M PRN PRN Reason: per Hypoglycemia Standing Ord. Last Admin: 07/18/21 01:43 Dose: 25 gm Documented by: ANDSHERLY Docusate Sodium (Docusate Sodium 100 Mg Capsule) 100 mg PO DAILY PRN PRN Reason: Constipation Docusate Sodium (Docusate Sodium 100 Mg Capsule) 100 mg PO BEDTIME [facility] Last Admin: 07/26/21 20:38 Dose: Not Given Documented by: ANTOIC Non-Admin Reason: loose stools Enoxaparin Sodium (Enoxaparin Sodium 40 Mg/0.4 Ml Syringe) 40 mg SUBCUT Q24H [facility] Last Admin: 07/27/21 08:34 Dose: 40 mg Documented by: PITER Fluvoxamine Maleate (Fluvoxamine Maleate 50 Mg Tablet) 100 mg PO BID [facility] Last Admin: 07/27/21 08:34 Dose: 100 mg Documented by: PITER Insulin Glargine (Insulin Glargine,Hum.Rec.Anlog 100 Unit/Ml 10 Ml Vial) 50 unit SUBCUT BID [facility] Last Admin: 07/17/21 21:06 Dose: Not Given Documented by: QUINN Non-Admin Reason: No Insulin Coverage Insulin Human Lispro (Insulin Lispro 100 Unit/Ml 3 Ml Vial) 0 unit SUBCUT QIDACHS [facility]; Protocol Last Admin: 07/27/21 07:47 Dose: Not Given Documented by: PITER Non-Admin Reason: No Insulin Coverage Lisinopril (Lisinopril 5 Mg Tablet) 5 mg PO DAILY [facility]; Protocol Last Admin: 07/27/21 08:34 Dose: 5 mg Documented by: PITER Methotrexate (Methotrexate Sodium 2.5 Mg Tablet) 25 mg PO Tu@1800 [facility] Last Admin: 07/24/21 18:25 Dose: 25 mg Documented by: INGRID Omeprazole (Omeprazole 20 Mg/10 Ml Susp.Recon) 40 mg PO DAILY@0630 [facility] Last Admin: 07/27/21 05:38 Dose: 40 mg Documented by: ANTJYALON Oxycodone HCl (Oxycodone Hcl Immed Release 5 Mg Tablet) 5 mg PO Q6H PRN PRN Reason: Pain, Moderate (Pain Scale 4-6 Last Admin: 07/27/21 08:36 Dose: 5 mg Documented by: PITER Polyethylene Glycol (Polyethylene Glycol 3350 17 Gm Powd.Pack) 17 gm PO DAILY [facility] Last Admin: 07/27/21 08:35 Dose: Not Given Documented by: PITER Non-Admin Reason: diarrhea Prednisone (Prednisone 10 Mg Tablet) 10 mg PO DAILY [facility] Last Admin: 07/27/21 08:34 Dose: 10 mg Documented by: PITER Sodium Chloride (0.9 % Sodium Chloride Flush 3 Ml Syringe) 3 ml IVFLUSH QSHIFT [facility] Last Admin: 07/27/21 08:34 Dose: 3 ml Documented by: PITER Thiamine HCl (Thiamine Hcl 100 Mg Tablet) 200 mg PO BID [facility] Last Admin: 07/27/21 08:34 Dose: 200 mg Documented by: PITER Labs CBC & Chem 7: 07/16/21 06:12 07/24/21 06:46 Labs: Laboratory Results - last 24 hr 0207/26/21 07/26/21 10:56 17:09 20:29 POC Glucose 252 H 150 H 174 H 07/27/21 07:36 POC Glucose 116 H Assessment and Plan (1) Mayda tropicalis infection: Status: Acute (2) Crohn disease: Status: Acute (3) Pneumonia due to COVID-19 virus: Status: Acute Plan 60-year-old moderately obese with history of Crohn's disease on Stelara, prednisone, methotrexate, diabetes who presents to the emergency department with shortness of breath found to have hypoxia and COVID-19 positive on 06/15/21. On 06/19/21 he snorted cocaine in his room and developed precipitous hypoxemia requiring urgent intubation from developing? He developed the cocaine lung and cardiac toxicity with combined noncardiogenic as well as cardiogenic pulmonary edema? and he remained intubated for 3 weeks and was extubated on 07/11/21? and respiratory status has been stable on room air and transfered to [facility] on 07/12/21.? Clinically had secondary nosocomial bacterial pneumonia and currently Mayda tropicalis urinary tract infection and some persistent atelectasis bilaterally but he is nontoxic 1.Acute respiratory failure with hypoxia secondary to COVID-19 pneumonia, cocaine induced noncardiogenic and cardiogenic? pulmonary edema that required prolonged intuabation--all resolved at this point, sating well on room air. 2.Abdominal pain--Exam is bening, CT shows non obstructing kidney stone. abd pain seems improving off solumedrol, on Prednisone crohn dis: on stelara, mtx. Morphine for pain transition to oxycodone 3.Mood--used to be on? Remeron, Paxil but now on Luvox psych eval for medication review added- recommended to continue Luvox for now. 4.HTN--BP is ok, used to be on Lisinopril has not been on it for weeks now, incrase dose to 10 from 5 5.Diabetes--was on glyburide at home, continue holding. Continue Lantus and SSI 6.Mayda tropicalis UTI---seen by ID :Diflucan 200 mg daily for 14 d ?occult fungemia- day 14/14 for diflucan. Diet: nutrition recommends Puree, thin Liquid. DVT prophylaxis -Lovenox Code status -full code awaiting placement, and to continue to work with PT and if gets better maybe able to go home. Quality Stroke Does the patient have a stroke diagnosis?: No VTE Prior VTE?: No VTE Risk Level:: Medical - moderate - high VTE Device Contraindication: N/A - Device Ordered VTE Drug Contraindication: N/A - Med Ordered
--- NOTE | 2021-07-27 10:25 | MHC.CLN ---
F/U PO INTAKE 75-100% DIET RX: 2200DM REGULAR-APPROPRIATE PT RECEIVING GLUCERNA BID TO INCREASE KCALS AND PROMOTE WOUND HEALING SUPP PROVIDES 474KCALS, 20G PROTEIN WITH 100% ACCEPTANCE CONTINUE TO MONITOR PO INTAKE CLOSELY
[2021-07-27 11:06] LABS: Glucose, Whole Blood 256 mg/dL (60-115)
[2021-07-27] MEDS: Insulin Lispro 100 UNIT/ML 3 ML VIAL SUBCUT (12:16)
--- NOTE | 2021-07-27 12:27 | MHC.CDI.CONC ---
CDI Concurrent Query Documentation Clarification: cdiPHYSICIAN'S DOCUMENTATION REQUEST Date of Query: 07/27/21 1224 Patient Name: Bhavik Johnson Admit Date: 06/15/21 Dear Doctor, A review of the medical record indicates additional documentation may be indicated. Please review below and update the documentation accordingly. Clinical Indicators: Risk Factors/Clinical Indicators/Treatments Wound care notes 07/25 & 07/27 - Pressure injury Stage 2 coccyx. Triad, foam dressing. Based on the above, could you please provide, in the Progress Notes, further information regarding the ulcer/wound: If a pressure ulcer/injury, please also include the stage* of the ulcer: Stage 1 - Skin intact, non-blanchable redness Stage 2 - Partial thickness loss of dermis, includes intact or open blister Other Unable to determine *Source: National Pressure Ulcer Advisory Panel (NPUAP) Use of terms such as suspected, likely, concern for, or probable (associated with a specific diagnosis that is being evaluated, monitored, or treated as if it exists) are acceptable and can be coded in the inpatient setting, when documented at the time of discharge. Thank you, Marni Quintana [facility], CDIS Extension: [phone] Please use your independent medical judgment in providing your response. THIS QUERY IS PART OF THE PERMANENT MEDICAL RECORD Provider Response: Other Other Diagnosis: stage 2 pressure ulcer
[2021-07-27 15:51] LABS: Glucose, Whole Blood 177 mg/dL (60-115)
[2021-07-27 20:11] LABS: Glucose, Whole Blood 194 mg/dL (60-115)
[2021-07-28 03:38] VITALS: BP 148/76; PULSE 106; RESP 20; TEMP 36.7; O2SAT 93
[2021-07-28 07:05] VITALS: BP 158/90; PULSE 94; RESP 18; TEMP 37.4; O2SAT 93
[2021-07-28 08:19] LABS: Glucose, Whole Blood 135 mg/dL (60-115)
[2021-07-28] MEDS: fluvoxaMINE Maleate 50 MG TABLET 100 MG PO ×2 (08:56→20:16)
[2021-07-28] MEDS: Enoxaparin Sodium 40 MG/0.4 ML SYRINGE SUBCUT (08:56)
[2021-07-28] MEDS: predniSONE 10 MG TABLET PO (08:56)
[2021-07-28] MEDS: Thiamine HCL 100 MG TABLET 200 MG PO ×2 (08:56→20:16)
[2021-07-28] MEDS: 0.9 % Sodium Chloride Flush 3 ML SYRINGE IVFLUSH ×3 (08:56→20:17)
[2021-07-28] MEDS: lisinopriL 5 MG TABLET PO (08:56)
[2021-07-28] MEDS: Acetaminophen 325 MG TABLET 650 MG OG-TUBE (08:57)
--- NOTE | 2021-07-28 09:05 | HO.PM.IMPN ---
Subjective Subjective Date of Service: 07/28/21 Interval History: F/u respiratory failure from covid and cocaine induced lung injury and required prolonged intubation and mechanical ventilation in the ICU for 3 weeks, he is recovering well and awaiting rehab placement.. no new issues. Review of Systems no fever or chills, abd pain is better Physical Exam Vital Signs: Vital Signs: Last Vital Signs Temp 99.3 F 07/28/21 07:05 Pulse 94 07/28/21 07:05 Resp 18 07/28/21 07:05 BP 158/90 H 07/28/21 07:05 Pulse Ox 93 07/28/21 07:05 Oxygen Flow Rate 10 06/15/21 00:21 BMI result Body Mass Index 26.7 Const: Other: General: AO X 3, no acute distress Resp: CTA bilateral CVS: S1,S2,RRR GI: +BS, NT, no distention Skin: No rash, stage 2 pressure, see wound care note 07/25 for details Neuro: motor grossly intact Psych: appropriate affect Objective Data Active Medications Acetaminophen (Acetaminophen 325 Mg Tablet) 650 mg OG-TUBE Q6H PRN PRN Reason: Fever Last Admin: 07/28/21 08:57 Dose: 650 mg Documented by: PITER Dextrose (Dextrose 50 % 25 Gm/50 Ml Syringe) 25 gm IVPUSH Q15M PRN PRN Reason: per Hypoglycemia Standing Ord. Last Admin: 07/18/21 01:43 Dose: 25 gm Documented by: QUINN Docusate Sodium (Docusate Sodium 100 Mg Capsule) 100 mg PO DAILY PRN PRN Reason: Constipation Docusate Sodium (Docusate Sodium 100 Mg Capsule) 100 mg PO BEDTIME [facility] Last Admin: 07/27/21 20:11 Dose: Not Given Documented by: HANDY Non-Admin Reason: loose stools Enoxaparin Sodium (Enoxaparin Sodium 40 Mg/0.4 Ml Syringe) 40 mg SUBCUT Q24H [facility] Last Admin: 07/28/21 08:56 Dose: 40 mg Documented by: PITER Fluvoxamine Maleate (Fluvoxamine Maleate 50 Mg Tablet) 100 mg PO BID [facility] Last Admin: 07/28/21 08:56 Dose: 100 mg Documented by: PITER Insulin Glargine (Insulin Glargine,Hum.Rec.Anlog 100 Unit/Ml 10 Ml Vial) 50 unit SUBCUT BID [facility] Last Admin: 07/17/21 21:06 Dose: Not Given Documented by: QUINN Non-Admin Reason: No Insulin Coverage Insulin Human Lispro (Insulin Lispro 100 Unit/Ml 3 Ml Vial) 0 unit SUBCUT QIDACHS [facility]; Protocol Last Admin: 07/28/21 08:24 Dose: Not Given Documented by: PITER Non-Admin Reason: No Insulin Coverage Lisinopril (Lisinopril 5 Mg Tablet) 5 mg PO DAILY [facility]; Protocol Last Admin: 07/28/21 08:56 Dose: 5 mg Documented by: PITER Methotrexate (Methotrexate Sodium 2.5 Mg Tablet) 25 mg PO Tu@1800 [facility] Last Admin: 07/24/21 18:25 Dose: 25 mg Documented by: INGRID Omeprazole (Omeprazole 20 Mg/10 Ml Susp.Recon) 40 mg PO DAILY@0630 [facility] Last Admin: 07/28/21 06:38 Dose: 40 mg Documented by: IDALIA Oxycodone HCl (Oxycodone Hcl Immed Release 5 Mg Tablet) 5 mg PO Q6H PRN PRN Reason: Pain, Severe (Pain Scale 7-10) Polyethylene Glycol (Polyethylene Glycol 3350 17 Gm Powd.Pack) 17 gm PO DAILY [facility] Last Admin: 07/28/21 08:56 Dose: Not Given Documented by: PITER Non-Admin Reason: loose stools Prednisone (Prednisone 10 Mg Tablet) 10 mg PO DAILY [facility] Last Admin: 07/28/21 08:56 Dose: 10 mg Documented by: PITER Sodium Chloride (0.9 % Sodium Chloride Flush 3 Ml Syringe) 3 ml IVFLUSH QSHIFT [facility] Last Admin: 07/28/21 08:56 Dose: 3 ml Documented by: PITER Thiamine HCl (Thiamine Hcl 100 Mg Tablet) 200 mg PO BID [facility] Last Admin: 07/28/21 08:56 Dose: 200 mg Documented by: PTIER Labs CBC & Chem 7: 07/16/21 06:12 07/24/21 06:46 Labs: Laboratory Results - last 24 hr 07/27/21 07/27/21 07/27/21 11:01 15:16 20:04 POC Glucose 256 H 177 H 194 H 07/28/21 07:08 POC Glucose 135 H Assessment and Plan (1) Mayda tropicalis infection: Status: Acute (2) Crohn disease: Status: Acute (3) Pneumonia due to COVID-19 virus: Status: Acute Plan 60-year-old moderately obese with history of Crohn's disease on Stelara, prednisone, methotrexate, diabetes who presents to the emergency department with shortness of breath found to have hypoxia and COVID-19 positive on 06/15/21. On 06/19/21 he snorted cocaine in his room and developed precipitous hypoxemia requiring urgent intubation from developing? He developed the cocaine lung and cardiac toxicity with combined noncardiogenic as well as cardiogenic pulmonary edema? and he remained intubated for 3 weeks and was extubated on 07/11/21? and respiratory status has been stable on room air and transfered to [facility] on 07/12/21.? Clinically had secondary nosocomial bacterial pneumonia and currently Mayda tropicalis urinary tract infection and some persistent atelectasis bilaterally but he is nontoxic 1.Acute respiratory failure with hypoxia secondary to COVID-19 pneumonia, cocaine induced noncardiogenic and cardiogenic? pulmonary edema that required prolonged intuabation--all resolved at this point, sating well on room air. 2.Abdominal pain--Exam is bening, CT shows non obstructing kidney stone. abd pain seems improving off solumedrol, on Prednisone crohn dis: on stelara, mtx. Morphine for pain transition to oxycodone 3.Mood--used to be on? Remeron, Paxil but now on Luvox psych eval for medication review added- recommended to continue Luvox for now. 4.HTN--BP is ok, used to be on Lisinopril has not been on it for weeks now, incrase dose to 10 from 5 5.Diabetes--was on glyburide at home, continue holding. Continue Lantus and SSI 6.Mayda tropicalis UTI---seen by ID :Diflucan 200 mg daily for 14 d ?occult fungemia- day 14/14 for diflucan. 7. Stage 2--pressure, tria, foam dressing Diet: nutrition recommends Puree, thin Liquid. DVT prophylaxis -Lovenox Code status -full code awaiting placement, and to continue to work with PT and if gets better maybe able to go home. Quality Stroke Does the patient have a stroke diagnosis?: No VTE Prior VTE?: No VTE Risk Level:: Medical - moderate - high VTE Device Contraindication: N/A - Device Ordered VTE Drug Contraindication: N/A - Med Ordered
[2021-07-28 11:46] VITALS: BP 145/90; PULSE 85; RESP 18; TEMP 36.8; O2SAT 93
[2021-07-28 11:59] LABS: Glucose, Whole Blood 208 mg/dL (60-115)
[2021-07-28] MEDS: Insulin Lispro 100 UNIT/ML 3 ML VIAL SUBCUT ×2 (12:36→17:48)
[2021-07-28] MEDS: oxyCODONE HCl Immed Release 5 MG TABLET PO ×2 (12:37→20:16)
[2021-07-28 16:00] VITALS: BP 132/88; PULSE 94; TEMP 37.5; O2SAT 95
[2021-07-28 17:21] LABS: Glucose, Whole Blood 228 mg/dL (60-115)
[2021-07-28 20:00] VITALS: BP 151/64; PULSE 87; RESP 18; TEMP 36.8; O2SAT 94
[2021-07-28 20:12] LABS: Glucose, Whole Blood 154 mg/dL (60-115)
[2021-07-28] MEDS: Docusate Sodium 100 MG CAPSULE PO (20:17)
[2021-07-28 23:43] VITALS: BP 158/92; PULSE 56; RESP 18; TEMP 36.1; O2SAT 98
[2021-07-29 03:55] VITALS: BP 148/62; PULSE 74; RESP 18; TEMP 36.3; O2SAT 96
[2021-07-29 07:54] VITALS: BP 162/84; PULSE 70; RESP 17; TEMP 37.1; O2SAT 94
[2021-07-29 08:06] LABS: Glucose, Whole Blood 105 mg/dL (60-115)
[2021-07-29] MEDS: oxyCODONE HCl Immed Release 5 MG TABLET PO ×2 (09:37→17:29)
[2021-07-29] MEDS: Thiamine HCL 100 MG TABLET 200 MG PO ×2 (09:37→19:55)
[2021-07-29] MEDS: fluvoxaMINE Maleate 50 MG TABLET 100 MG PO ×2 (09:37→19:54)
[2021-07-29] MEDS: lisinopriL 5 MG TABLET PO (09:38)
[2021-07-29] MEDS: predniSONE 10 MG TABLET PO (09:38)
[2021-07-29] MEDS: 0.9 % Sodium Chloride Flush 3 ML SYRINGE IVFLUSH ×3 (09:38→19:55)
[2021-07-29] MEDS: Enoxaparin Sodium 40 MG/0.4 ML SYRINGE SUBCUT (09:38)
--- NOTE | 2021-07-29 09:53 | HO.PM.IMPN ---
Subjective Subjective Date of Service: 07/29/21 Interval History: F/u respiratory failure from covid and cocaine induced lung injury and required prolonged intubation and mechanical ventilation in the ICU for 3 weeks, he is recovering well and awaiting rehab placement.. no new issues. Physical Exam Vital Signs: Vital Signs: Last Vital Signs Temp 98.8 F 07/29/21 07:54 Pulse 70 07/29/21 07:54 Resp 17 07/29/21 07:54 BP 162/84 H 07/29/21 07:54 Pulse Ox 94 07/29/21 07:54 Oxygen Flow Rate 10 06/15/21 00:21 BMI result Body Mass Index 26.7 Const: Other: General: AO X 3, no acute distress Resp: CTA bilateral CVS: S1,S2,RRR GI: +BS, NT, no distention Skin: No rash, stage 2 pressure, see wound care note 07/25 for details Neuro: motor grossly intact Psych: appropriate affect Objective Data Active Medications Acetaminophen (Acetaminophen 325 Mg Tablet) 650 mg OG-TUBE Q6H PRN PRN Reason: Fever Last Admin: 07/28/21 08:57 Dose: 650 mg Documented by: PITER Dextrose (Dextrose 50 % 25 Gm/50 Ml Syringe) 25 gm IVPUSH Q15M PRN PRN Reason: per Hypoglycemia Standing Ord. Last Admin: 07/18/21 01:43 Dose: 25 gm Documented by: QUINN Docusate Sodium (Docusate Sodium 100 Mg Capsule) 100 mg PO DAILY PRN PRN Reason: Constipation Docusate Sodium (Docusate Sodium 100 Mg Capsule) 100 mg PO BEDTIME [facility] Last Admin: 07/28/21 20:17 Dose: 100 mg Documented by: JULIO CÉSAR Enoxaparin Sodium (Enoxaparin Sodium 40 Mg/0.4 Ml Syringe) 40 mg SUBCUT Q24H [facility] Last Admin: 07/29/21 09:38 Dose: 40 mg Documented by: PITER Fluvoxamine Maleate (Fluvoxamine Maleate 50 Mg Tablet) 100 mg PO BID [facility] Last Admin: 07/29/21 09:37 Dose: 100 mg Documented by: PITER Insulin Glargine (Insulin Glargine,Hum.Rec.Anlog 100 Unit/Ml 10 Ml Vial) 50 unit SUBCUT BID [facility] Last Admin: 07/17/21 21:06 Dose: Not Given Documented by: QUINN Non-Admin Reason: No Insulin Coverage Insulin Human Lispro (Insulin Lispro 100 Unit/Ml 3 Ml Vial) 0 unit SUBCUT QIDACHS [facility]; Protocol Last Admin: 07/29/21 08:13 Dose: Not Given Documented by: PITER Non-Admin Reason: No Insulin Coverage Lisinopril (Lisinopril 5 Mg Tablet) 5 mg PO DAILY [facility]; Protocol Last Admin: 07/29/21 09:38 Dose: 5 mg Documented by: PITER Methotrexate (Methotrexate Sodium 2.5 Mg Tablet) 25 mg PO Tu@1800 [facility] Last Admin: 07/24/21 18:25 Dose: 25 mg Documented by: INGRID Omeprazole (Omeprazole 20 Mg/10 Ml Susp.Recon) 40 mg PO DAILY@0630 [facility] Last Admin: 07/29/21 05:59 Dose: 40 mg Documented by: ELIDA Oxycodone HCl (Oxycodone Hcl Immed Release 5 Mg Tablet) 5 mg PO Q6H PRN PRN Reason: Pain, Severe (Pain Scale 7-10) Last Admin: 07/29/21 09:37 Dose: 5 mg Documented by: PITER Polyethylene Glycol (Polyethylene Glycol 3350 17 Gm Powd.Pack) 17 gm PO DAILY [facility] Last Admin: 07/29/21 09:38 Dose: Not Given Documented by: PITER Non-Admin Reason: diarrhea Prednisone (Prednisone 10 Mg Tablet) 10 mg PO DAILY [facility] Last Admin: 07/29/21 09:38 Dose: 10 mg Documented by: PITER Sodium Chloride (0.9 % Sodium Chloride Flush 3 Ml Syringe) 3 ml IVFLUSH QSHIFT [facility] Last Admin: 07/29/21 09:38 Dose: 3 ml Documented by: PITER Thiamine HCl (Thiamine Hcl 100 Mg Tablet) 200 mg PO BID [facility] Last Admin: 07/29/21 09:37 Dose: 200 mg Documented by: PITER Labs CBC & Chem 7: 07/16/21 06:12 07/24/21 06:46 Labs: Laboratory Results - last 24 hr 07/28/21 07/28/21 07/28/21 11:48 17:12 20:07 POC Glucose 208 H 228 H 154 H 07/29/21 07:58 POC Glucose 105 Assessment and Plan (1) Mayda tropicalis infection: Status: Acute (2) Crohn disease: Status: Acute (3) Pneumonia due to COVID-19 virus: Status: Acute Plan 60-year-old moderately obese with history of Crohn's disease on Stelara, prednisone, methotrexate, diabetes who presents to the emergency department with shortness of breath found to have hypoxia and COVID-19 positive on 06/15/21. On 06/19/21 he snorted cocaine in his room and developed precipitous hypoxemia requiring urgent intubation from developing? He developed the cocaine lung and cardiac toxicity with combined noncardiogenic as well as cardiogenic pulmonary edema? and he remained intubated for 3 weeks and was extubated on 07/11/21? and respiratory status has been stable on room air and transfered to [facility] on 07/12/21.? Clinically had secondary nosocomial bacterial pneumonia and currently Mayda tropicalis urinary tract infection and some persistent atelectasis bilaterally but he is nontoxic 1.Acute respiratory failure with hypoxia secondary to COVID-19 pneumonia, cocaine induced noncardiogenic and cardiogenic? pulmonary edema that required prolonged intuabation--all resolved at this point, sating well on room air. 2.Abdominal pain--Exam is bening, CT shows non obstructing kidney stone. abd pain seems improving off solumedrol, on Prednisone crohn dis: on stelara, mtx. Morphine for pain transition to oxycodone 3.Mood--used to be on? Remeron, Paxil but now on Luvox psych eval for medication review added- recommended to continue Luvox for now. 4.HTN--BP is ok, used to be on Lisinopril has not been on it for weeks now, incrase dose to 10 from 5 5.Diabetes--was on glyburide at home, continue holding. Continue Lantus and SSI 6.Mayda tropicalis UTI---seen by ID :Diflucan 200 mg daily for 14 d ?occult fungemia- day 14/14 for diflucan. 7. Stage 2--pressure, tria, foam dressing Diet: nutrition recommends Puree, thin Liquid. DVT prophylaxis -Lovenox Code status -full code awaiting placement, and to continue to work with PT and if gets better maybe able to go home. Quality Stroke Does the patient have a stroke diagnosis?: No VTE Prior VTE?: No VTE Risk Level:: Medical - moderate - high VTE Device Contraindication: N/A - Device Ordered VTE Drug Contraindication: N/A - Med Ordered
[2021-07-29 11:36] LABS: Glucose, Whole Blood 138 mg/dL (60-115)
[2021-07-29 11:58] VITALS: BP 161/75; PULSE 77; RESP 17; TEMP 36.8; O2SAT 92
[2021-07-29 15:15] VITALS: BP 165/78; PULSE 90; RESP 16; TEMP 36.4; O2SAT 93
[2021-07-29 16:44] LABS: Glucose, Whole Blood 216 mg/dL (60-115)
[2021-07-29] MEDS: Insulin Lispro 100 UNIT/ML 3 ML VIAL SUBCUT (17:28)
[2021-07-29 19:07] VITALS: BP 160/90; PULSE 103; RESP 18; TEMP 36.6; O2SAT 96
[2021-07-29 20:18] LABS: Glucose, Whole Blood 194 mg/dL (60-115)
[2021-07-29 23:30] VITALS: BP 143/82; PULSE 95; RESP 19; TEMP 35.9; O2SAT 91
[2021-07-30] MEDS: oxyCODONE HCl Immed Release 5 MG TABLET PO ×3 (00:47→19:02)
[2021-07-30 03:28] VITALS: BP 160/75; PULSE 80; RESP 20; TEMP 36.1; O2SAT 90
[2021-07-30 07:23] LABS: Glucose, Whole Blood 109 mg/dL (60-115)
[2021-07-30 08:00] VITALS: BP 141/95; PULSE 84; RESP 18; TEMP 36.6; O2SAT 93
[2021-07-30] MEDS: Thiamine HCL 100 MG TABLET 200 MG PO ×2 (08:58→20:26)
[2021-07-30] MEDS: lisinopriL 5 MG TABLET PO (08:59)
[2021-07-30] MEDS: predniSONE 10 MG TABLET PO (08:59)
[2021-07-30] MEDS: fluvoxaMINE Maleate 50 MG TABLET 100 MG PO ×2 (08:59→20:27)
[2021-07-30] MEDS: Enoxaparin Sodium 40 MG/0.4 ML SYRINGE SUBCUT (08:59)
[2021-07-30] MEDS: 0.9 % Sodium Chloride Flush 3 ML SYRINGE IVFLUSH (08:59)
[2021-07-30 11:38] LABS: Glucose, Whole Blood 197 mg/dL (60-115)
[2021-07-30 11:46] VITALS: BP 161/79; PULSE 91; RESP 16; TEMP 36.8; O2SAT 90
--- NOTE | 2021-07-30 11:47 | P.PNIM_ITS ---
Subjective Subjective Date of Service: 07/30/21 Interval History: F/u respiratory failure from covid and cocaine induced lung injury and required prolonged intubation and mechanical ventilation in the ICU for 3 weeks, he is recovering well and awaiting rehab placement.. no new issues, he feels stronger and thinks he can better particiapte in PT today Review of Systems no fever or chills, abd pain is better Physical Exam Vital Signs: Vital Signs: Last Vital Signs Temp 97.8 F 07/30/21 08:00 Pulse 84 07/30/21 08:00 Resp 18 07/30/21 08:00 BP 141/95 H 07/30/21 08:00 Pulse Ox 93 07/30/21 08:00 Oxygen Flow Rate 10 06/15/21 00:21 BMI result Body Mass Index 26.7 Const: Other: General: AO X 3, no acute distress Resp: CTA bilateral CVS: S1,S2,RRR GI: +BS, NT, no distention Skin: No rash, stage 2 pressure, see wound care note 07/25 for details Neuro: motor grossly intact Psych: appropriate affect Objective Data Active Medications Acetaminophen (Acetaminophen 325 Mg Tablet) 650 mg OG-TUBE Q6H PRN PRN Reason: Fever Last Admin: 07/28/21 08:57 Dose: 650 mg Documented by: PITER Dextrose (Dextrose 50 % 25 Gm/50 Ml Syringe) 25 gm IVPUSH Q15M PRN PRN Reason: per Hypoglycemia Standing Ord. Last Admin: 07/18/21 01:43 Dose: 25 gm Documented by: ANDSHERLY Docusate Sodium (Docusate Sodium 100 Mg Capsule) 100 mg PO DAILY PRN PRN Reason: Constipation Docusate Sodium (Docusate Sodium 100 Mg Capsule) 100 mg PO BEDTIME [facility] Last Admin: 07/29/21 19:31 Dose: Not Given Documented by: ANTOIC Non-Admin Reason: loose stools Enoxaparin Sodium (Enoxaparin Sodium 40 Mg/0.4 Ml Syringe) 40 mg SUBCUT Q24H [facility] Last Admin: 07/30/21 08:59 Dose: 40 mg Documented by: PITER Fluvoxamine Maleate (Fluvoxamine Maleate 50 Mg Tablet) 100 mg PO BID [facility] Last Admin: 07/30/21 08:59 Dose: 100 mg Documented by: PITER Insulin Glargine (Insulin Glargine,Hum.Rec.Anlog 100 Unit/Ml 10 Ml Vial) 50 unit SUBCUT BID [facility] Last Admin: 07/17/21 21:06 Dose: Not Given Documented by: QUINN Non-Admin Reason: No Insulin Coverage Insulin Human Lispro (Insulin Lispro 100 Unit/Ml 3 Ml Vial) 0 unit SUBCUT QIDACHS [facility]; Protocol Last Admin: 07/30/21 07:24 Dose: Not Given Documented by: PITER Non-Admin Reason: No Insulin Coverage Lisinopril (Lisinopril 5 Mg Tablet) 5 mg PO DAILY [facility]; Protocol Last Admin: 07/30/21 08:59 Dose: 5 mg Documented by: PITER Methotrexate (Methotrexate Sodium 2.5 Mg Tablet) 25 mg PO Tu@1800 [facility] Last Admin: 07/24/21 18:25 Dose: 25 mg Documented by: INGRID Omeprazole (Omeprazole 20 Mg/10 Ml Susp.Recon) 40 mg PO DAILY@0630 [facility] Last Admin: 07/30/21 05:37 Dose: 40 mg Documented by: ANTOIC Oxycodone HCl (Oxycodone Hcl Immed Release 5 Mg Tablet) 5 mg PO Q6H PRN PRN Reason: Pain, Severe (Pain Scale 7-10) Last Admin: 07/30/21 08:58 Dose: 5 mg Documented by: PITER Polyethylene Glycol (Polyethylene Glycol 3350 17 Gm Powd.Pack) 17 gm PO DAILY [facility] Last Admin: 07/30/21 08:59 Dose: Not Given Documented by: PITER Non-Admin Reason: loose stools Prednisone (Prednisone 10 Mg Tablet) 10 mg PO DAILY [facility] Last Admin: 07/30/21 08:59 Dose: 10 mg Documented by: PITER Sodium Chloride (0.9 % Sodium Chloride Flush 3 Ml Syringe) 3 ml IVFLUSH QSHIFT [facility] Last Admin: 07/30/21 08:59 Dose: 3 ml Documented by: PITER Thiamine HCl (Thiamine Hcl 100 Mg Tablet) 200 mg PO BID [facility] Last Admin: 07/30/21 08:58 Dose: 200 mg Documented by: PITER Labs CBC & Chem 7: 07/16/21 06:12 07/24/21 06:46 Labs: Laboratory Results - last 24 hr 07/29/21 07/29/21 07/30/21 16:01 20:08 07:15 POC Glucose 216 H 194 H 109 07/30/21 11:30 POC Glucose 197 H Assessment and Plan (1) Mayda tropicalis infection: Status: Acute (2) Crohn disease: Status: Acute (3) Pneumonia due to COVID-19 virus: Status: Acute Plan 60-year-old moderately obese with history of Crohn's disease on Stelara, prednisone, methotrexate, diabetes who presents to the emergency department with shortness of breath found to have hypoxia and COVID-19 positive on 06/15/21. On 06/19/21 he snorted cocaine in his room and developed precipitous hypoxemia requiring urgent intubation from developing? He developed the cocaine lung and cardiac toxicity with combined noncardiogenic as well as cardiogenic pulmonary edema? and he remained intubated for 3 weeks and was extubated on 07/11/21? and respiratory status has been stable on room air and transfered to [facility] on 07/12/21.? Clinically had secondary nosocomial bacterial pneumonia and currently Mayda tropicalis urinary tract infection and some persistent atelectasis bilaterally but he is nontoxic 1.Acute respiratory failure with hypoxia secondary to COVID-19 pneumonia, cocaine induced noncardiogenic and cardiogenic? pulmonary edema that required prolonged intuabation--all resolved at this point, sating well on room air. 2.Abdominal pain--Chronic and related to h/o crohn's disease--had Abd that was unremarkable Oxycodone for pain, MTX and Stelera typically given in [place] Reaching out to clinic in [place] to figure how to go about getting stelara 3.Mood d/o--used to be on? Remeron, Paxil but now on Luvox psych recommends continuing with Luvox for now. 4.HTN--Increase Lisinopril to 10 (07/30), add Norvasc 5 mg daily (07/30) 5.Diabetes--was on glyburide at home, continue holding. Continue Lantus and SSI 6.Mayda tropicalis UTI---seen by ID :Diflucan 200 mg daily for 14 d ?occult fungemia- day 14 for diflucan. 7. Stage 2--pressure, tria, foam dressing Diet: nutrition recommends Puree, thin Liquid. DVT prophylaxis -Lovenox Code status -full code awaiting placement, and to continue to work with PT and if gets better maybe able to go home. Quality Stroke Does the patient have a stroke diagnosis?: No VTE Prior VTE?: No VTE Risk Level:: Medical - moderate - high VTE Device Contraindication: N/A - Device Ordered VTE Drug Contraindication: N/A - Med Ordered
[2021-07-30] MEDS: amLODIPine Besylate 5 MG TABLET PO (12:45)
[2021-07-30 14:57] VITALS: BP 152/73; PULSE 66; RESP 20; TEMP 36.1; O2SAT 90
[2021-07-30 16:26] LABS: Glucose, Whole Blood 244 mg/dL (60-115)
[2021-07-30] MEDS: Insulin Lispro 100 UNIT/ML 3 ML VIAL SUBCUT (16:40)
[2021-07-30 19:00] VITALS: BP 139/82; PULSE 81; RESP 20; TEMP 36.1; O2SAT 95
[2021-07-30 20:00] LABS: Glucose, Whole Blood 149 mg/dL (60-115)
[2021-07-30 23:17] VITALS: BP 128/65; PULSE 78; RESP 20; TEMP 36.6; O2SAT 90
[2021-07-31] MEDS: 0.9 % Sodium Chloride Flush 3 ML SYRINGE IVFLUSH ×4 (00:33→20:09)
[2021-07-31] MEDS: oxyCODONE HCl Immed Release 5 MG TABLET PO ×3 (02:33→16:40)
[2021-07-31 04:00] VITALS: BP 133/67; PULSE 68; RESP 17; TEMP 36.4; O2SAT 90
[2021-07-31 07:11] LABS: Glucose, Whole Blood 113 mg/dL (60-115)
[2021-07-31 07:19] VITALS: BP 145/72; PULSE 88; RESP 20; TEMP 36.4; O2SAT 95
[2021-07-31] MEDS: Thiamine HCL 100 MG TABLET 200 MG PO ×2 (07:41→20:09)
[2021-07-31] MEDS: lisinopriL 10 MG TABLET PO (07:41)
[2021-07-31] MEDS: fluvoxaMINE Maleate 50 MG TABLET 100 MG PO ×2 (07:41→20:09)
[2021-07-31] MEDS: amLODIPine Besylate 5 MG TABLET PO (07:42)
[2021-07-31] MEDS: lisinopriL 5 MG TABLET PO (07:42)
[2021-07-31] MEDS: Enoxaparin Sodium 40 MG/0.4 ML SYRINGE SUBCUT (07:42)
[2021-07-31] MEDS: predniSONE 10 MG TABLET PO (07:42)
--- NOTE | 2021-07-31 10:29 | HO.PM.IMPN ---
Subjective Subjective Date of Service: 07/31/21 Interval History: F/u respiratory failure from covid and cocaine induced lung injury and required prolonged intubation and mechanical ventilation in the ICU for 3 weeks, he is recovering well and awaiting rehab placement.. no new issues, he ismaking incremental progress with PT Review of Systems no fever or chills, abd pain is better Physical Exam Vital Signs: Vital Signs: Last Vital Signs Temp 97.6 F 07/31/21 07:19 Pulse 88 07/31/21 07:19 Resp 20 07/31/21 07:19 BP 145/72 H 07/31/21 07:19 Pulse Ox 95 07/31/21 07:19 Oxygen Flow Rate 10 06/15/21 00:21 BMI result Body Mass Index 26.7 Const: Other: General: AO X 3, no acute distress Resp: CTA bilateral CVS: S1,S2,RRR GI: +BS, NT, no distention Skin: No rash, stage 2 pressure, see wound care note 07/25 for details Neuro: motor grossly intact Psych: appropriate affect Objective Data Active Medications Acetaminophen (Acetaminophen 325 Mg Tablet) 650 mg OG-TUBE Q6H PRN PRN Reason: Fever Last Admin: 07/28/21 08:57 Dose: 650 mg Documented by: PITER Amlodipine Besylate (Amlodipine Besylate 5 Mg Tablet) 5 mg PO DAILY [facility]; Protocol Last Admin: 07/31/21 07:42 Dose: 5 mg Documented by: SANTOSH Dextrose (Dextrose 50 % 25 Gm/50 Ml Syringe) 25 gm IVPUSH Q15M PRN PRN Reason: per Hypoglycemia Standing Ord. Last Admin: 07/18/21 01:43 Dose: 25 gm Documented by: QUINN Docusate Sodium (Docusate Sodium 100 Mg Capsule) 100 mg PO DAILY PRN PRN Reason: Constipation Docusate Sodium (Docusate Sodium 100 Mg Capsule) 100 mg PO BEDTIME [facility] Last Admin: 07/30/21 20:07 Dose: Not Given Documented by: HANDY Non-Admin Reason: loose stools Enoxaparin Sodium (Enoxaparin Sodium 40 Mg/0.4 Ml Syringe) 40 mg SUBCUT Q24H [facility] Last Admin: 07/31/21 07:42 Dose: 40 mg Documented by: SANTOSH Fluvoxamine Maleate (Fluvoxamine Maleate 50 Mg Tablet) 100 mg PO BID [facility] Last Admin: 07/31/21 07:41 Dose: 100 mg Documented by: SANTOSH Insulin Glargine (Insulin Glargine,Hum.Rec.Anlog 100 Unit/Ml 10 Ml Vial) 50 unit SUBCUT BID [facility] Last Admin: 07/17/21 21:06 Dose: Not Given Documented by: QUINN Non-Admin Reason: No Insulin Coverage Insulin Human Lispro (Insulin Lispro 100 Unit/Ml 3 Ml Vial) 0 unit SUBCUT QIDACHS [facility]; Protocol Last Admin: 07/31/21 07:27 Dose: Not Given Documented by: SANTOSH Non-Admin Reason: No Insulin Coverage Lisinopril (Lisinopril 5 Mg Tablet) 5 mg PO DAILY [facility]; Protocol Last Admin: 07/31/21 07:42 Dose: 5 mg Documented by: SANTOSH Lisinopril (Lisinopril 10 Mg Tablet) 10 mg PO DAILY [facility]; Protocol Last Admin: 07/31/21 07:41 Dose: 10 mg Documented by: SANTOSH Methotrexate (Methotrexate Sodium 2.5 Mg Tablet) 25 mg PO Tu@1800 [facility] Last Admin: 07/24/21 18:25 Dose: 25 mg Documented by: INGRID Omeprazole (Omeprazole 20 Mg/10 Ml Susp.Recon) 40 mg PO DAILY@0630 [facility] Last Admin: 07/31/21 06:17 Dose: 40 mg Documented by: SAGE Oxycodone HCl (Oxycodone Hcl Immed Release 5 Mg Tablet) 5 mg PO Q6H PRN PRN Reason: Pain, Severe (Pain Scale 7-10) Last Admin: 07/31/21 02:33 Dose: 5 mg Documented by: SAGE Polyethylene Glycol (Polyethylene Glycol 3350 17 Gm Powd.Pack) 17 gm PO DAILY [facility] Last Admin: 07/31/21 07:42 Dose: Not Given Documented by: SANTOSH Non-Admin Reason: loose sdtools Prednisone (Prednisone 10 Mg Tablet) 10 mg PO DAILY [facility] Last Admin: 07/31/21 07:42 Dose: 10 mg Documented by: SANTOSH Sodium Chloride (0.9 % Sodium Chloride Flush 3 Ml Syringe) 3 ml IVFLUSH QSHIFT [facility] Last Admin: 07/31/21 07:42 Dose: 3 ml Documented by: SANTOSH Thiamine HCl (Thiamine Hcl 100 Mg Tablet) 200 mg PO BID [facility] Last Admin: 07/31/21 07:41 Dose: 200 mg Documented by: SANTOSH Labs CBC & Chem 7: 07/16/21 06:12 07/24/21 06:46 Labs: Laboratory Results - last 24 hr 07/30/21 07/30/21 07/30/21 11:30 16:12 19:45 POC Glucose 197 H 244 H 149 H 07/31/21 07:07 POC Glucose 113 Assessment and Plan (1) Mayda tropicalis infection: Status: Acute (2) Crohn disease: Status: Acute (3) Pneumonia due to COVID-19 virus: Status: Acute Plan 60-year-old moderately obese with history of Crohn's disease on Stelara, prednisone, methotrexate, diabetes who presents to the emergency department with shortness of breath found to have hypoxia and COVID-19 positive on 06/15/21. On 06/19/21 he snorted cocaine in his room and developed precipitous hypoxemia requiring urgent intubation from developing? He developed the cocaine lung and cardiac toxicity with combined noncardiogenic as well as cardiogenic pulmonary edema? and he remained intubated for 3 weeks and was extubated on 07/11/21? and respiratory status has been stable on room air and transfered to [facility] on 07/12/21.? Clinically had secondary nosocomial bacterial pneumonia and currently Mayda tropicalis urinary tract infection and some persistent atelectasis bilaterally but he is nontoxic 1.Acute respiratory failure with hypoxia secondary to COVID-19 pneumonia, cocaine induced noncardiogenic and cardiogenic? pulmonary edema that required prolonged intuabation--all resolved at this point, sating well on room air. 2.Abdominal pain--Chronic and related to h/o crohn's disease--had Abd that was unremarkable Oxycodone for pain, MTX and Stelera typically given in [place] Reaching out to clinic in [place] to figure how to go about getting stelara 3.Mood d/o--used to be on? Remeron, Paxil but now on Luvox psych recommends continuing with Luvox for now. 4.HTN--Increase Lisinopril to 10 (07/30), add Norvasc 5 mg daily (07/30) 5.Diabetes--was on glyburide at home, continue holding. Continue Lantus and SSI 6.Mayda tropicalis UTI---seen by ID :Diflucan 200 mg daily for 14 d ?occult fungemia- day 14 for diflucan. 7. Stage 2--pressure, tria, foam dressing Diet: nutrition recommends Puree, thin Liquid. DVT prophylaxis -Lovenox Code status -full code awaiting placement, and to continue to work with PT and if gets better maybe able to go home. Quality Stroke Does the patient have a stroke diagnosis?: No VTE Prior VTE?: No VTE Risk Level:: Medical - moderate - high VTE Device Contraindication: N/A - Device Ordered VTE Drug Contraindication: N/A - Med Ordered
[2021-07-31 11:38] LABS: Glucose, Whole Blood 228 mg/dL (60-115)
[2021-07-31 11:48] VITALS: BP 122/58; PULSE 98; RESP 20; TEMP 36.5; O2SAT 95
[2021-07-31] MEDS: Insulin Lispro 100 UNIT/ML 3 ML VIAL SUBCUT ×2 (11:50→16:34)
[2021-07-31 15:24] VITALS: BP 131/70; PULSE 87; RESP 16; TEMP 36.7; O2SAT 93
[2021-07-31 15:42] LABS: Glucose, Whole Blood 238 mg/dL (60-115)
[2021-07-31] MEDS: metHOTREXate sodium 2.5 MG TABLET 25 MG PO (16:35)
[2021-07-31 19:27] VITALS: BP 121/74; PULSE 90; RESP 16; TEMP 36.9; O2SAT 91
[2021-07-31 19:41] LABS: Glucose, Whole Blood 120 mg/dL (60-115)
[2021-07-31] MEDS: Docusate Sodium 100 MG CAPSULE PO (20:09)
[2021-07-31 23:56] VITALS: BP 138/82; PULSE 91; RESP 20; TEMP 35.7; O2SAT 90
[2021-08-01] VITALS (8 sets, daily range): BP systolic 119–151; BP diastolic 69–88; PULSE 74–94; RESP 14–20; TEMP 36–36.8; O2SAT 90–95
[2021-08-01] MEDS: oxyCODONE HCl Immed Release 5 MG TABLET PO ×3 (00:16→20:36)
[2021-08-01 03:32] LABS: Glucose, Whole Blood 93 mg/dL (60-115)
[2021-08-01 07:07] LABS: Glucose, Whole Blood 125 mg/dL (60-115)
[2021-08-01] MEDS: Thiamine HCL 100 MG TABLET 200 MG PO ×2 (07:53→19:57)
[2021-08-01] MEDS: lisinopriL 10 MG TABLET PO (07:53)
[2021-08-01] MEDS: Enoxaparin Sodium 40 MG/0.4 ML SYRINGE SUBCUT (07:54)
[2021-08-01] MEDS: fluvoxaMINE Maleate 50 MG TABLET 100 MG PO ×2 (07:54→19:59)
[2021-08-01] MEDS: amLODIPine Besylate 5 MG TABLET PO (07:54)
[2021-08-01] MEDS: predniSONE 10 MG TABLET PO (07:54)
[2021-08-01] MEDS: polyethylene glycoL 3350 17 GM POWD.PACK PO (07:55)
[2021-08-01] MEDS: 0.9 % Sodium Chloride Flush 3 ML SYRINGE IVFLUSH ×3 (07:55→19:57)
[2021-08-01] MEDS: lisinopriL 5 MG TABLET PO (07:55)
[2021-08-01 09:17] LABS: Hematocrit 37.8 % (42.0-52.0); Hemoglobin 11.2 g/dl (14.0-18.0); Mean Corpuscular HGB Conc 29.6 g/dl (31.0-36.0); Mean Corpuscular Hemoglobin 25.6 pg (27.0-33.0); Mean Corpuscular Volume 86.3 fL (80.0-98.0); Platelet Count 324 X10*3/uL (160-400); Red Blood Count 4.38 X10*6/uL (4.60-5.80); Red Cell Distribution Width 19.3 % (11.0-16.0); White Blood Count 6.6 X10*3/uL (4.8-10.8)
--- NOTE | 2021-08-01 09:22 | P.PNIM_ITS ---
Subjective Subjective Date of Service: 08/01/21 Review of Systems F/u respiratory failure from covid and cocaine induced lung injury and required prolonged intubation and mechanical ventilation in the ICU for 3 weeks, he is recovering well and awaiting rehab placement making incremental progress with PT Physical Exam Vital Signs: Vital Signs: Last Vital Signs Temp 96.8 F 08/01/21 07:07 Pulse 92 08/01/21 07:07 Resp 20 08/01/21 07:07 BP 137/70 08/01/21 07:07 Pulse Ox 93 08/01/21 07:07 Oxygen Flow Rate 10 06/15/21 00:21 BMI result Body Mass Index 26.7 Appearing in no acute distress lung sounds are clear to auscultation heart regular rate rhythm, clear S1, S2 positive bowel sounds, abdomen is soft, nontender neuro patient is alert x3, no focal deficits Objective Data Active Medications Acetaminophen (Acetaminophen 325 Mg Tablet) 650 mg OG-TUBE Q6H PRN PRN Reason: Fever Last Admin: 07/28/21 08:57 Dose: 650 mg Documented by: PITER Amlodipine Besylate (Amlodipine Besylate 5 Mg Tablet) 5 mg PO DAILY [facility]; Protocol Last Admin: 08/01/21 07:54 Dose: 5 mg Documented by: GI Dextrose (Dextrose 50 % 25 Gm/50 Ml Syringe) 25 gm IVPUSH Q15M PRN PRN Reason: per Hypoglycemia Standing Ord. Last Admin: 07/18/21 01:43 Dose: 25 gm Documented by: QUINN Docusate Sodium (Docusate Sodium 100 Mg Capsule) 100 mg PO DAILY PRN PRN Reason: Constipation Docusate Sodium (Docusate Sodium 100 Mg Capsule) 100 mg PO BEDTIME [facility] Last Admin: 07/31/21 20:09 Dose: 100 mg Documented by: JULIO CÉSAR Enoxaparin Sodium (Enoxaparin Sodium 40 Mg/0.4 Ml Syringe) 40 mg SUBCUT Q24H [facility] Last Admin: 08/01/21 07:54 Dose: 40 mg Documented by: GI Fluvoxamine Maleate (Fluvoxamine Maleate 50 Mg Tablet) 100 mg PO BID [facility] Last Admin: 08/01/21 07:54 Dose: 100 mg Documented by: GI Insulin Glargine (Insulin Glargine,Hum.Rec.Anlog 100 Unit/Ml 10 Ml Vial) 50 unit SUBCUT BID [facility] Last Admin: 07/17/21 21:06 Dose: Not Given Documented by: QUINN Non-Admin Reason: No Insulin Coverage Insulin Human Lispro (Insulin Lispro 100 Unit/Ml 3 Ml Vial) 0 unit SUBCUT QIDACHS [facility]; Protocol Last Admin: 08/01/21 07:19 Dose: Not Given Documented by: GI Non-Admin Reason: No Insulin Coverage Lisinopril (Lisinopril 5 Mg Tablet) 5 mg PO DAILY [facility]; Protocol Last Admin: 08/01/21 07:55 Dose: 5 mg Documented by: GI Lisinopril (Lisinopril 10 Mg Tablet) 10 mg PO DAILY [facility]; Protocol Last Admin: 08/01/21 07:53 Dose: 10 mg Documented by: GI Methotrexate (Methotrexate Sodium 2.5 Mg Tablet) 25 mg PO Tu@1800 [facility] Last Admin: 07/31/21 16:35 Dose: 25 mg Documented by: MITCHELL Omeprazole (Omeprazole 20 Mg/10 Ml Susp.Recon) 40 mg PO DAILY@0630 [facility] Last Admin: 08/01/21 05:55 Dose: 40 mg Documented by: JULIO CÉSAR Oxycodone HCl (Oxycodone Hcl Immed Release 5 Mg Tablet) 5 mg PO Q6H PRN PRN Reason: Pain, Severe (Pain Scale 7-10) Last Admin: 08/01/21 00:16 Dose: 5 mg Documented by: JULIO CÉSAR Polyethylene Glycol (Polyethylene Glycol 3350 17 Gm Powd.Pack) 17 gm PO DAILY [facility] Last Admin: 08/01/21 07:55 Dose: 17 gm Documented by: GI Prednisone (Prednisone 10 Mg Tablet) 10 mg PO DAILY [facility] Last Admin: 08/01/21 07:54 Dose: 10 mg Documented by: GI Sodium Chloride (0.9 % Sodium Chloride Flush 3 Ml Syringe) 3 ml IVFLUSH QSHIFT [facility] Last Admin: 08/01/21 07:55 Dose: 3 ml Documented by: GI Thiamine HCl (Thiamine Hcl 100 Mg Tablet) 200 mg PO BID [facility] Last Admin: 08/01/21 07:53 Dose: 200 mg Documented by: GI Labs CBC & Chem 7: 08/01/21 08:38 07/24/21 06:46 Labs: Laboratory Results - last 24 hr 07/31/21 07/31/21 07/31/21 11:34 15:27 19:29 MCV MCH MCHC RDW Plt Count MPV Absolute Nucleated RBC Nucleated RBC % (auto) POC Glucose 228 H 238 H 120 H 08/01/21 08/01/21 08/01/21 03:14 07:03 08:38 MCV 86.3 MCH 25.6 L MCHC 29.6 L RDW 19.3 H Plt Count 324 MPV 9.0 L Absolute Nucleated RBC 0.000 Nucleated RBC % (auto) 0.0 POC Glucose 93 125 H Assessment and Plan (1) Mayda tropicalis infection: Status: Acute (2) Crohn disease: Status: Acute (3) Pneumonia due to COVID-19 virus: Status: Acute Plan 60-year-old moderately obese with history of Crohn's disease on Stelara, prednisone, methotrexate, diabetes who presents to the emergency department with shortness of breath found to have hypoxia and COVID-19 positive on 06/15/21. On 06/19/21 he snorted cocaine in his room and developed precipitous hypoxemia requiring urgent intubation from developing? He developed the cocaine lung and cardiac toxicity with combined noncardiogenic as well as cardiogenic pulmonary edema? and he remained intubated for 3 weeks and was extubated on 07/11/21? and respiratory status has been stable on room air and transfered to [facility] on 07/12/21.? Clinically had secondary nosocomial bacterial pneumonia and currently Mayda tropicalis urinary tract infection and some persistent atelectasis bilaterally but he is nontoxic Acute respiratory failure with hypoxia secondary to COVID-19 pneumonia, cocaine induced noncardiogenic and cardiogenic? pulmonary edema that required prolonged intuabation all resolved at this point, sating well on room air. Abdominal pain. Chronic and related to h/o crohn's disease Oxycodone for pain, MTX and Stelera typically given in [place] Reaching out to clinic in [place] to figure how to go about getting stelara Mood Remeron, Paxil but now on Luvox psych recommends continuing with Luvox for now. HTN Increase Lisinopril to 10 (07/30), add Norvasc 5 mg daily (07/30) Diabetes was on glyburide at home, continue holding. Continue Lantus and SSI Mayda tropicalis UTI seen by ID Diflucan 200 mg daily for 14 d, completed treatement Stage 2 pressure foam dressing DVT prophylaxis -Lovenox Code status -full code Attending Dr. Paniagua Had discussion with his sister Judith. She is unable to take care of him in her home at this point. Awaiting placement, continue to work with PT Quality Stroke Does the patient have a stroke diagnosis?: No VTE Prior VTE?: No VTE Risk Level:: Medical - moderate - high VTE Device Contraindication: N/A - Device Ordered VTE Drug Contraindication: N/A - Med Ordered
[2021-08-01 09:36] LABS: Anion Gap 12 (12-20); Blood Urea Nitrogen 8 mg/dL (9-16); Carbon Dioxide 37 mmol/L (22-29); Chloride 97 mmol/L (96-108); Creatinine Clr Calc Pharmacy 152.5; Estimated Glomerular Filt Rate > 60; Glucose Random 160 mg/dL (60-115); Sodium 143 mmol/L (135-145)
[2021-08-01 11:15] LABS: Glucose, Whole Blood 266 mg/dL (60-115)
--- NOTE | 2021-08-01 11:18 | MHC.CLN ---
F/U PO INTAKE CONSISTENTLY 75-100% DIET RX: 2200DM REGULAR-APPROPRIATE PT RECEIVING GLUCERNA BID TO INCREASE KCALS AND PROMOTE WOUND HEALING SUPP PROVIDES 474KCALS, 20G PROTEIN WITH 100% ACCEPTANCE CONTINUE TO MONITOR PO INTAKE CLOSELY PT IS TOLERATING DIET WITH EXCELLENT PO GOAL: IMPROVED WOUND HEALING WILL FOLLOW UP X 7 DAYS
--- NOTE | 2021-08-01 11:33 | MHC.CM.PN ---
Ongoing broad SNF search is in progress and CM will continue to follow.Per MD in [place], Patient's Sister is unable to take him home.
[2021-08-01] MEDS: Insulin Lispro 100 UNIT/ML 3 ML VIAL SUBCUT ×2 (11:38→16:58)
[2021-08-01] MEDS: Ascorbic Acid 500 MG TABLET PO (14:33)
[2021-08-01 15:53] LABS: Glucose, Whole Blood 232 mg/dL (60-115)
[2021-08-01 19:49] LABS: Glucose, Whole Blood 179 mg/dL (60-115)
[2021-08-01] MEDS: Docusate Sodium 100 MG CAPSULE PO (19:57)
[2021-08-02] VITALS (7 sets, daily range): BP systolic 118–158; BP diastolic 66–84; PULSE 65–92; RESP 16–20; TEMP 35.7–37.1; O2SAT 93–97
[2021-08-02] MEDS: oxyCODONE HCl Immed Release 5 MG TABLET PO (06:03)
[2021-08-02 07:06] LABS: Glucose, Whole Blood 134 mg/dL (60-115)
[2021-08-02] MEDS: polyethylene glycoL 3350 17 GM POWD.PACK PO (08:07)
[2021-08-02] MEDS: 0.9 % Sodium Chloride Flush 3 ML SYRINGE IVFLUSH ×3 (08:07→21:35)
[2021-08-02] MEDS: Enoxaparin Sodium 40 MG/0.4 ML SYRINGE SUBCUT (08:07)
[2021-08-02] MEDS: amLODIPine Besylate 5 MG TABLET PO (08:08)
[2021-08-02] MEDS: predniSONE 10 MG TABLET PO (08:08)
[2021-08-02] MEDS: Acetaminophen 325 MG TABLET 650 MG OG-TUBE ×2 (08:08→17:58)
[2021-08-02] MEDS: Thiamine HCL 100 MG TABLET 200 MG PO ×2 (08:08→20:46)
[2021-08-02] MEDS: lisinopriL 10 MG TABLET PO (08:09)
[2021-08-02] MEDS: Ascorbic Acid 500 MG TABLET PO (08:09)
[2021-08-02] MEDS: fluvoxaMINE Maleate 50 MG TABLET 100 MG PO ×2 (08:09→20:46)
[2021-08-02 10:54] LABS: Glucose, Whole Blood 204 mg/dL (60-115)
[2021-08-02] MEDS: Insulin Lispro 100 UNIT/ML 3 ML VIAL SUBCUT ×2 (12:49→17:56)
--- NOTE | 2021-08-02 15:33 | HO.PM.IMPN ---
Subjective Subjective Date of Service: 08/02/21 <SULLY Edwards - Last Filed: 08/02/21 15:48> 08/03/21 <Curtis Coleman MD - Last Filed: 08/03/21 15:57> Interval History: seen and examined this morning observed working with OT reporting some back pain, no radiating down legs <SULLY Edwards - Last Filed: 08/02/21 15:48> Review of Systems Review of Systems: Yes all other systems are reviewed and are negative <SULLY Edwards - Last Filed: 08/02/21 15:48> Cardiovascular Cardiovascular: Denies chest pain, Denies palpitations and Denies dyspnea <SULLY Edwards - Last Filed: 08/02/21 15:48> Respiratory Respiratory: Denies dyspnea <SULLY Edwards - Last Filed: 08/02/21 15:48> Gastrointestinal Gastrointestinal: Denies abdominal pain <SULLY Edwards - Last Filed: 08/02/21 15:48> Endocrine Endocrine: Denies palpitations <SULLY Edwards - Last Filed: 08/02/21 15:48> Physical Exam Vital Signs: Vital Signs: Last Vital Signs Temp 96.6 F L 08/02/21 11:05 Pulse 92 08/02/21 11:05 Resp 20 08/02/21 11:05 BP 118/81 08/02/21 11:05 Pulse Ox 97 08/02/21 11:05 Oxygen Flow Rate 10 06/15/21 00:21 BMI result Body Mass Index 26.7 <SULLY Edwards - Last Filed: 08/02/21 15:48> Const: General: comfortable, no acute distress, alert, awake and Physically active <SULLY Edwards Last Filed: 08/02/21 15:48> Nutritional Appearance: average body habitus <SULLY Edwards Last Filed: 08/02/21 15:48> Resp: Effort & Inspection: normal respiratory effort and able to speak in complete sentences <SULLY Edwards Last Filed: 08/02/21 15:48> Cardio: Rate: regular rate <SULLY Edwards - Last Filed: 08/02/21 15:48> Heart sounds: S1 normal heart sound present and S2 normal heart sound present <SULLY Edwards Last Filed: 08/02/21 15:48> GI: Inspection: No distended <SULLY Edwards Last Filed: 08/02/21 15:48> Palpation (GI): Soft to palpation and nontender <SULLY Edwards - Last Filed: 08/02/21 15:48> Extrem: Other: Able to move all extremities spontaneously; no lower extremity edema <SULLY Edwards Last Filed: 08/02/21 15:48> Objective Data Active Medications Acetaminophen (Acetaminophen 325 Mg Tablet) 650 mg OG-TUBE Q6H PRN PRN Reason: Fever Last Admin: 08/02/21 08:08 Dose: 650 mg Documented by: MINESH Amlodipine Besylate (Amlodipine Besylate 5 Mg Tablet) 5 mg PO DAILY ON LICENSE OF [facility]; Protocol Last Admin: 08/02/21 08:08 Dose: 5 mg Documented by: MINESH Ascorbic Acid (Ascorbic Acid 500 Mg Tablet) 500 mg PO DAILY ON LICENSE OF [facility] Last Admin: 08/02/21 08:09 Dose: 500 mg Documented by: MINESH Dextrose (Dextrose 50 % 25 Gm/50 Ml Syringe) 25 gm IVPUSH Q15M PRN PRN Reason: per Hypoglycemia Standing Ord. Last Admin: 07/18/21 01:43 Dose: 25 gm Documented by: QUINN Docusate Sodium (Docusate Sodium 100 Mg Capsule) 100 mg PO DAILY PRN PRN Reason: Constipation Docusate Sodium (Docusate Sodium 100 Mg Capsule) 100 mg PO BEDTIME ON LICENSE OF [facility] Last Admin: 08/01/21 19:57 Dose: 100 mg Documented by: JULIO CÉSAR Enoxaparin Sodium (Enoxaparin Sodium 40 Mg/0.4 Ml Syringe) 40 mg SUBCUT Q24H ON LICENSE OF [facility] Last Admin: 08/02/21 08:07 Dose: 40 mg Documented by: MINESH Fluvoxamine Maleate (Fluvoxamine Maleate 50 Mg Tablet) 100 mg PO BID ON LICENSE OF [facility] Last Admin: 08/02/21 08:09 Dose: 100 mg Documented by: MINESH Insulin Glargine (Insulin Glargine,Hum.Rec.Anlog 100 Unit/Ml 10 Ml Vial) 50 unit SUBCUT BID ON LICENSE OF [facility] Last Admin: 07/17/21 21:06 Dose: Not Given Documented by: QUINN Non-Admin Reason: No Insulin Coverage Insulin Human Lispro (Insulin Lispro 100 Unit/Ml 3 Ml Vial) 0 unit SUBCUT QIDACHS ON LICENSE OF [facility]; Protocol Last Admin: 08/02/21 12:49 Dose: 2 unit Documented by: MINESH Lisinopril (Lisinopril 5 Mg Tablet) 5 mg PO DAILY ON LICENSE OF [facility]; Protocol Last Admin: 08/02/21 10:19 Dose: Not Given Documented by: MINESH Non-Admin Reason: Duplicate Order Lisinopril (Lisinopril 10 Mg Tablet) 10 mg PO DAILY ON LICENSE OF [facility]; Protocol Last Admin: 08/02/21 08:09 Dose: 10 mg Documented by: MINESH Methotrexate (Methotrexate Sodium 2.5 Mg Tablet) 25 mg PO Tu@1800 ON LICENSE OF [facility] Last Admin: 07/31/21 16:35 Dose: 25 mg Documented by: MITCHELL Omeprazole (Omeprazole 20 Mg/10 Ml Susp.Recon) 40 mg PO DAILY@0630 ON LICENSE OF [facility] Last Admin: 08/02/21 05:11 Dose: 40 mg Documented by: JULIO CÉSAR Polyethylene Glycol (Polyethylene Glycol 3350 17 Gm Powd.Pack) 17 gm PO DAILY ON LICENSE OF [facility] Last Admin: 08/02/21 08:07 Dose: 17 gm Documented by: MINESH Prednisone (Prednisone 10 Mg Tablet) 10 mg PO DAILY ON LICENSE OF [facility] Last Admin: 08/02/21 08:08 Dose: 10 mg Documented by: MINESH Sodium Chloride (0.9 % Sodium Chloride Flush 3 Ml Syringe) 3 ml IVFLUSH QSHIFT ON LICENSE OF [facility] Last Admin: 08/02/21 08:07 Dose: 3 ml Documented by: MINESH Thiamine HCl (Thiamine Hcl 100 Mg Tablet) 200 mg PO BID ON LICENSE OF [facility] Last Admin: 08/02/21 08:08 Dose: 200 mg Documented by: MINESH <Kaela Caldera PA - Last Filed: 08/02/21 15:48> Labs CBC & Chem 7: : 08/01/21 08:38 08/03/21 09:17 <SULLY Edwards - Last Filed: 08/02/21 15:48> Labs: Laboratory Results - last 24 hr 08/01/21 08/01/21 08/02/21 15:21 19:24 07:00 POC Glucose 232 H 179 H 134 H 08/02/21 10:50 POC Glucose 204 H <SULLY Edwards - Last Filed: 08/02/21 15:48> Assessment and Plan (1) Pneumonia due to COVID-19 virus: Status: Acute <SULLY Edwards - Last Filed: 08/02/21 15:48> Plan 60-year-old moderately obese with history of Crohn's disease on Stelara, prednisone, methotrexate, diabetes who presents to the emergency department with shortness of breath found to have hypoxia and COVID-19 positive on 06/15/21. On 06/19/21 he snorted cocaine in his room and developed precipitous hypoxemia requiring urgent intubation from developing? He developed the cocaine lung and cardiac toxicity with combined noncardiogenic as well as cardiogenic pulmonary edema? and he remained intubated for 3 weeks and was extubated on 07/11/21? and respiratory status has been stable on room air and transfered to [facility] on 07/12/21.? Clinically had secondary nosocomial bacterial pneumonia and currently Mayda tropicalis urinary tract infection and some persistent atelectasis bilaterally but he is nontoxic Acute respiratory failure with hypoxia secondary to COVID-19 pneumonia, cocaine induced noncardiogenic and cardiogenic pulmonary edema that required prolonged intubation all resolved at this point, sating well on room air. Abdominal pain. Chronic and related to h/o crohn's disease Oxycodone for pain, MTX and Stelera typically given in [place] wean prednisone Mood ? Remeron, Paxil but now on Luvox psych recommends continuing with Luvox for now. HTN Increase Lisinopril to 10 (07/30), add Norvasc 5 mg daily (07/30) Diabetes was on glyburide at home, continue holding. Continue Lantus and SSI Mayda tropicalis UTI seen by ID Diflucan 200 mg daily for 14 d, completed treatment Stage 2 pressure foam dressing DVT prophylaxis -Lovenox Code status -full code Attending: dr. coleman dispo: acute rehab vs snf <SULLY Edwards - Last Filed: 08/02/21 15:48> Quality Stroke Does the patient have a stroke diagnosis?: No <SULLY Edwards - Last Filed: 08/02/21 15:48> VTE Prior VTE?: No <SULLY Edwards - Last Filed: 08/02/21 15:48> VTE Risk Level:: Medical - moderate - high <SULLY Edwards - Last Filed: 08/02/21 15:48> VTE Device Contraindication: N/A - Device Ordered <SULLY Edwards - Last Filed: 08/02/21 15:48> VTE Drug Contraindication: N/A - Med Ordered <SULLY Edwards - Last Filed: 08/02/21 15:48>
[2021-08-02 16:24] LABS: Glucose, Whole Blood 219 mg/dL (60-115)
[2021-08-02 20:30] LABS: Glucose, Whole Blood 149 mg/dL (60-115)
[2021-08-02] MEDS: Gabapentin 300 MG CAPSULE PO (21:35)
[2021-08-03] VITALS (7 sets, daily range): BP systolic 100–142; BP diastolic 56–80; PULSE 62–94; RESP 14–18; TEMP 36.2–37.9; O2SAT 90–98
[2021-08-03 07:43] LABS: Glucose, Whole Blood 105 mg/dL (60-115)
[2021-08-03] MEDS: 0.9 % Sodium Chloride Flush 3 ML SYRINGE IVFLUSH ×3 (08:14→20:28)
[2021-08-03] MEDS: Thiamine HCL 100 MG TABLET 200 MG PO ×2 (08:14→20:26)
[2021-08-03] MEDS: amLODIPine Besylate 5 MG TABLET PO (08:14)
[2021-08-03] MEDS: fluvoxaMINE Maleate 50 MG TABLET 100 MG PO ×2 (08:14→20:25)
[2021-08-03] MEDS: lisinopriL 10 MG TABLET PO (08:15)
[2021-08-03] MEDS: Ascorbic Acid 500 MG TABLET PO (08:15)
[2021-08-03] MEDS: predniSONE 5 MG TABLET PO (08:15)
[2021-08-03] MEDS: Enoxaparin Sodium 40 MG/0.4 ML SYRINGE SUBCUT (08:15)
[2021-08-03 10:01] LABS: Anion Gap 13 (12-20); Blood Urea Nitrogen 7 mg/dL (9-16); Calcium 9.4 mg/dL (8.4-10.2); Carbon Dioxide 36 mmol/L (22-29); Chloride 96 mmol/L (96-108); Creatinine Clr Calc Pharmacy 157.8; Estimated Glomerular Filt Rate > 60; Glucose Random 154 mg/dL (60-115); Potassium 3.4 mmol/L (3.3-5.1); Sodium 142 mmol/L (135-145)
[2021-08-03 11:30] LABS: Glucose, Whole Blood 250 mg/dL (60-115)
[2021-08-03] MEDS: Insulin Lispro 100 UNIT/ML 3 ML VIAL SUBCUT (12:34)
--- NOTE | 2021-08-03 13:44 | P.PNIM_ITS ---
Subjective Subjective Date of Service: 08/03/21 Interval History: Seen and examined this morning No overnight events, no specific complaints at this time Denies any abdominal pain, chest pain, shortness of breath, fever, chills Review of Systems Review of Systems: Yes all other systems are reviewed and are negative Constitutional Constitutional: Denies chills and Denies fever(s) Cardiovascular Cardiovascular: Denies chest pain and Denies palpitations Gastrointestinal Gastrointestinal: Denies abdominal pain Endocrine Endocrine: Denies palpitations Physical Exam Vital Signs: Vital Signs: Last Vital Signs Temp 97.1 F 08/03/21 11:02 Pulse 90 08/03/21 11:02 Resp 18 08/03/21 11:02 BP 100/56 L 08/03/21 11:02 Pulse Ox 93 08/03/21 11:02 Oxygen Flow Rate 10 06/15/21 00:21 BMI result Body Mass Index 26.7 Const: General: cooperative, comfortable, no acute distress, alert and awake Nutritional Appearance: average body habitus and well nourished HENMT: Head: Yes normocephalic and Yes atraumatic Eyes: Sclerae: sclerae normal Resp: Effort & Inspection: normal respiratory effort and able to speak in complete sentences Cardio: Rate: regular rate Heart sounds: S1 normal heart sound present and S2 normal heart sound present GI: Inspection: No distended Palpation (GI): Soft to palpation and nontender Extrem: Other: Able to move all extremities spontaneously; no lower extremity edema Objective Data Active Medications Acetaminophen (Acetaminophen 325 Mg Tablet) 650 mg OG-TUBE Q6H PRN PRN Reason: Fever Last Admin: 08/02/21 17:58 Dose: 650 mg Documented by: ULICES Amlodipine Besylate (Amlodipine Besylate 5 Mg Tablet) 5 mg PO DAILY [facility]; Protocol Last Admin: 08/03/21 08:14 Dose: 5 mg Documented by: JUANY Ascorbic Acid (Ascorbic Acid 500 Mg Tablet) 500 mg PO DAILY [facility] Last Admin: 08/03/21 08:15 Dose: 500 mg Documented by: JUANY Dextrose (Dextrose 50 % 25 Gm/50 Ml Syringe) 25 gm IVPUSH Q15M PRN PRN Reason: per Hypoglycemia Standing Ord. Last Admin: 07/18/21 01:43 Dose: 25 gm Documented by: QUINN Docusate Sodium (Docusate Sodium 100 Mg Capsule) 100 mg PO DAILY PRN PRN Reason: Constipation Docusate Sodium (Docusate Sodium 100 Mg Capsule) 100 mg PO BEDTIME [facility] Last Admin: 08/02/21 20:46 Dose: Not Given Documented by: ULICES Non-Admin Reason: Patient Refused Enoxaparin Sodium (Enoxaparin Sodium 40 Mg/0.4 Ml Syringe) 40 mg SUBCUT Q24H [facility] Last Admin: 08/03/21 08:15 Dose: 40 mg Documented by: JUANY Fluvoxamine Maleate (Fluvoxamine Maleate 50 Mg Tablet) 100 mg PO BID [facility] Last Admin: 08/03/21 08:14 Dose: 100 mg Documented by: JUANY Insulin Glargine (Insulin Glargine,Hum.Rec.Anlog 100 Unit/Ml 10 Ml Vial) 50 unit SUBCUT BID [facility] Last Admin: 07/17/21 21:06 Dose: Not Given Documented by: QUINN Non-Admin Reason: No Insulin Coverage Insulin Human Lispro (Insulin Lispro 100 Unit/Ml 3 Ml Vial) 0 unit SUBCUT QIDACHS [facility]; Protocol Last Admin: 08/03/21 12:34 Dose: 2 unit Documented by: JUANY Lisinopril (Lisinopril 10 Mg Tablet) 10 mg PO DAILY [facility]; Protocol Last Admin: 08/03/21 08:15 Dose: 10 mg Documented by: JUANY Methotrexate (Methotrexate Sodium 2.5 Mg Tablet) 25 mg PO Tu@1800 [facility] Last Admin: 07/31/21 16:35 Dose: 25 mg Documented by: MITCHELL Omeprazole (Omeprazole 20 Mg/10 Ml Susp.Recon) 40 mg PO DAILY@0630 [facility] Last Admin: 08/03/21 06:48 Dose: 40 mg Documented by: ULICES Polyethylene Glycol (Polyethylene Glycol 3350 17 Gm Powd.Pack) 17 gm PO DAILY [facility] Last Admin: 08/03/21 08:20 Dose: Not Given Documented by: JUANY Non-Admin Reason: having loose stools Prednisone (Prednisone 5 Mg Tablet) 5 mg PO DAILY [facility] Last Admin: 08/03/21 08:15 Dose: 5 mg Documented by: JUANY Sodium Chloride (0.9 % Sodium Chloride Flush 3 Ml Syringe) 3 ml IVFLUSH QSHIFT [facility] Last Admin: 08/03/21 08:14 Dose: 3 ml Documented by: JUANY Thiamine HCl (Thiamine Hcl 100 Mg Tablet) 200 mg PO BID [facility] Last Admin: 08/03/21 08:14 Dose: 200 mg Documented by: JUANY Labs CBC & Chem 7: 08/01/21 08:38 08/03/21 09:17 Labs: Laboratory Results - last 24 hr 08/02/21 08/02/21 08/03/21 15:59 20:21 07:11 Anion Gap Estim Creat Clear Calc Estimated GFR POC Glucose 219 H 149 H 105 Random Glucose Calcium 08/03/21 08/03/21 09:17 11:03 Anion Gap 13 Estim Creat Clear Calc 157.8 Estimated GFR > 60 POC Glucose 250 H Random Glucose 154 H Calcium 9.4 Assessment and Plan (1) Pneumonia due to COVID-19 virus: Status: Acute Plan 60-year-old moderately obese with history of Crohn's disease on Stelara, prednisone, methotrexate, diabetes who presents to the emergency department with shortness of breath found to have hypoxia and COVID-19 positive on 06/15/21. On 06/19/21 he snorted cocaine in his room and developed precipitous hypoxemia requiring urgent intubation from developing? He developed the cocaine lung and cardiac toxicity with combined noncardiogenic as well as cardiogenic pulmonary edema? and he remained intubated for 3 weeks and was extubated on 07/11/21? and respiratory status has been stable on room air and transfered to [facility] on 07/12/21.? Clinically had secondary nosocomial bacterial pneumonia and currently Mayda tropicalis urinary tract infection and some persistent atelectasis bilaterally but he is nontoxic Acute respiratory failure with hypoxia secondary to COVID-19 pneumonia, cocaine induced noncardiogenic and cardiogenic pulmonary edema that required prolonged intubation all resolved at this point, sating well on room air. Abdominal pain. Chronic and related to h/o crohn's disease Oxycodone for pain, MTX and Stelera typically given in [place] wean prednisone Mood ? Previously on Remeron, Paxil but now on Luvox psych recommends continuing with Luvox for now. HTN Increase Lisinopril to 10 (07/30), add Norvasc 5 mg daily (07/30) Diabetes was on glyburide at home, continue holding. Continue Lantus and SSI Mayda tropicalis UTI seen by ID Diflucan 200 mg daily for 14 d, completed treatment Stage 2 pressure foam dressing DVT prophylaxis -Lovenox Code status -full code Attending: dr. Becerril dispo: acute rehab vs snf due to physcial debility from prolonged hospital stay. awaiting placement Quality Stroke Does the patient have a stroke diagnosis?: No VTE Prior VTE?: No VTE Risk Level:: Medical - moderate - high VTE Device Contraindication: N/A - Device Ordered VTE Drug Contraindication: N/A - Med Ordered
[2021-08-03 16:11] LABS: Glucose, Whole Blood 119 mg/dL (60-115)
[2021-08-03] MEDS: Acetaminophen 325 MG TABLET 650 MG OG-TUBE (20:26)
[2021-08-03 20:34] LABS: Glucose, Whole Blood 146 mg/dL (60-115)
[2021-08-04 03:14] VITALS: BP 131/75; PULSE 97; RESP 18; TEMP 36; O2SAT 95
[2021-08-04 07:23] VITALS: BP 134/82; PULSE 97; RESP 18; TEMP 37.6; O2SAT 92
[2021-08-04 07:31] LABS: Glucose, Whole Blood 112 mg/dL (60-115)
[2021-08-04] MEDS: Enoxaparin Sodium 40 MG/0.4 ML SYRINGE SUBCUT (09:07)
[2021-08-04] MEDS: Thiamine HCL 100 MG TABLET 200 MG PO ×2 (09:07→20:15)
[2021-08-04] MEDS: Ascorbic Acid 500 MG TABLET PO (09:07)
[2021-08-04] MEDS: polyethylene glycoL 3350 17 GM POWD.PACK PO (09:08)
[2021-08-04] MEDS: 0.9 % Sodium Chloride Flush 3 ML SYRINGE IVFLUSH ×3 (09:08→20:34)
[2021-08-04] MEDS: fluvoxaMINE Maleate 50 MG TABLET 100 MG PO ×2 (09:08→20:15)
[2021-08-04] MEDS: lisinopriL 10 MG TABLET PO (09:08)
[2021-08-04] MEDS: predniSONE 5 MG TABLET PO (09:08)
[2021-08-04] MEDS: amLODIPine Besylate 5 MG TABLET PO (09:08)
[2021-08-04 11:06] LABS: Glucose, Whole Blood 153 mg/dL (60-115)
[2021-08-04 11:50] VITALS: BP 121/75; PULSE 93; TEMP 36.6; O2SAT 92
--- NOTE | 2021-08-04 12:25 | P.PNIM_ITS ---
Subjective Subjective Date of Service: 08/04/21 <SULLY Edwards - Last Filed: 08/04/21 13:06> 08/04/21 <Chaitanya Kessler DO - Last Filed: 08/04/21 18:35> Interval History: seen and examined this morning no overnight events feeling well today, no specific complaints tolerating diet, no nausea or vomiting no pain <SULLY Edwards - Last Filed: 08/04/21 13:06> Review of Systems Review of Systems: Yes all other systems are reviewed and are negative <SULLY Edwards - Last Filed: 08/04/21 13:06> Constitutional Constitutional: Denies chills and Denies fever(s) <SULLY Edwards - Last Filed: 08/04/21 13:06> Cardiovascular Cardiovascular: Denies chest pain and Denies dyspnea <SULLY Edwards - Last Filed: 08/04/21 13:06> Respiratory Respiratory: Denies cough and Denies dyspnea <SULLY Edwards - Last Filed: 08/04/21 13:06> Physical Exam Vital Signs: Vital Signs: Last Vital Signs Temp 97.8 F 08/04/21 11:50 Pulse 93 08/04/21 11:50 Resp 18 08/04/21 07:23 BP 121/75 08/04/21 11:50 Pulse Ox 92 08/04/21 11:50 Oxygen Flow Rate 10 06/15/21 00:21 BMI result Body Mass Index 26.7 <SULLY Edwards - Last Filed: 08/04/21 13:06> Const: General: cooperative, comfortable, no acute distress, alert, awake and Physically active <SULLY Edwards - Last Filed: 08/04/21 13:06> Nutritional Appearance: average body habitus and well nourished <SULLY Edwards - Last Filed: 08/04/21 13:06> Orientation/consciousness: patient oriented x3 <SULLY Edwards - Last Filed: 08/04/21 13:06> Eyes: Sclerae: sclerae normal <SULLY Edwards - Last Filed: 08/04/21 13:06> Resp: Effort & Inspection: normal respiratory effort and able to speak in complete sentences <SULLY Edwards - Last Filed: 08/04/21 13:06> Cardio: Rate: regular rate <SULLY Edwards Last Filed: 08/04/21 13:06> Rhythm: regular rhythm <SULLY Edwards Last Filed: 08/04/21 13:06> Heart sounds: S1 normal heart sound present and S2 normal heart sound present <SULLY Edwards Last Filed: 08/04/21 13:06> GI: Inspection: No distended <SULLY Edwards Last Filed: 08/04/21 13:06> Palpation (GI): Soft to palpation and nontender <SULLY Edwards - Last Filed: 08/04/21 13:06> Neuro: General: patient oriented x3 <SULLY Edwards Last Filed: 08/04/21 13:06> Extrem: Other: Able to move all extremities spontaneously; no lower extremity edema <SULLY Monroy Last Filed: 08/04/21 13:06> Objective Data Active Medications Acetaminophen (Acetaminophen 325 Mg Tablet) 650 mg OG-TUBE Q6H PRN PRN Reason: Fever Last Admin: 08/03/21 20:26 Dose: 650 mg Documented by: YAMILEX Amlodipine Besylate (Amlodipine Besylate 5 Mg Tablet) 5 mg PO DAILY COUNT INCLUDES THE [facility]; Protocol Last Admin: 08/04/21 09:08 Dose: 5 mg Documented by: ANAND Ascorbic Acid (Ascorbic Acid 500 Mg Tablet) 500 mg PO DAILY COUNT INCLUDES THE [facility] Last Admin: 08/04/21 09:07 Dose: 500 mg Documented by: ANAND Dextrose (Dextrose 50 % 25 Gm/50 Ml Syringe) 25 gm IVPUSH Q15M PRN PRN Reason: per Hypoglycemia Standing Ord. Last Admin: 07/18/21 01:43 Dose: 25 gm Documented by: QUINN Docusate Sodium (Docusate Sodium 100 Mg Capsule) 100 mg PO DAILY PRN PRN Reason: Constipation Docusate Sodium (Docusate Sodium 100 Mg Capsule) 100 mg PO BEDTIME COUNT INCLUDES THE [facility] Last Admin: 08/03/21 20:28 Dose: Not Given Documented by: YAMILEX Non-Admin Reason: 3 BM throughout day Enoxaparin Sodium (Enoxaparin Sodium 40 Mg/0.4 Ml Syringe) 40 mg SUBCUT Q24H COUNT INCLUDES THE [facility] Last Admin: 08/04/21 09:07 Dose: 40 mg Documented by: ANAND Fluvoxamine Maleate (Fluvoxamine Maleate 50 Mg Tablet) 100 mg PO BID COUNT INCLUDES THE [facility] Last Admin: 08/04/21 09:08 Dose: 100 mg Documented by: ANAND Insulin Glargine (Insulin Glargine,Hum.Rec.Anlog 100 Unit/Ml 10 Ml Vial) 50 unit SUBCUT BID COUNT INCLUDES THE [facility] Last Admin: 07/17/21 21:06 Dose: Not Given Documented by: QUINN Non-Admin Reason: No Insulin Coverage Insulin Human Lispro (Insulin Lispro 100 Unit/Ml 3 Ml Vial) 0 unit SUBCUT QIDACHS COUNT INCLUDES THE [facility]; Protocol Last Admin: 08/04/21 11:14 Dose: Not Given Documented by: ANAND Non-Admin Reason: No Insulin Coverage Lisinopril (Lisinopril 10 Mg Tablet) 10 mg PO DAILY COUNT INCLUDES THE [facility]; Protocol Last Admin: 08/04/21 09:08 Dose: 10 mg Documented by: ANAND Methotrexate (Methotrexate Sodium 2.5 Mg Tablet) 25 mg PO Tu@1800 COUNT INCLUDES THE [facility] Last Admin: 07/31/21 16:35 Dose: 25 mg Documented by: MITCHELL Omeprazole (Omeprazole 20 Mg/10 Ml Susp.Recon) 40 mg PO DAILY@0630 COUNT INCLUDES THE [facility] Last Admin: 08/04/21 05:58 Dose: 40 mg Documented by: YAMILEX Polyethylene Glycol (Polyethylene Glycol 3350 17 Gm Powd.Pack) 17 gm PO DAILY COUNT INCLUDES THE [facility] Last Admin: 08/04/21 09:08 Dose: 17 gm Documented by: ANAND Prednisone (Prednisone 5 Mg Tablet) 5 mg PO DAILY COUNT INCLUDES THE [facility] Last Admin: 08/04/21 09:08 Dose: 5 mg Documented by: ANAND Sodium Chloride (0.9 % Sodium Chloride Flush 3 Ml Syringe) 3 ml IVFLUSH QSHIFT COUNT INCLUDES THE [facility] Last Admin: 08/04/21 09:08 Dose: 3 ml Documented by: ANAND Thiamine HCl (Thiamine Hcl 100 Mg Tablet) 200 mg PO BID COUNT INCLUDES THE [facility] Last Admin: 08/04/21 09:07 Dose: 200 mg Documented by: ANAND <SULLY Edwards - Last Filed: 08/04/21 13:06> Labs CBC & Chem 7: : 08/01/21 08:38 08/03/21 09:17 <SULLY Edwards - Last Filed: 08/04/21 13:06> Labs: Laboratory Results - last 24 hr 08/03/21 08/03/21 08/04/21 15:54 20:21 07:26 POC Glucose 119 H 146 H 112 08/04/21 11:02 POC Glucose 153 H <SULLY Edwards - Last Filed: 08/04/21 13:06> Assessment and Plan (1) Pneumonia due to COVID-19 virus: Status: Acute <SULLY Edwards - Last Filed: 08/04/21 13:06> Plan 60-year-old moderately obese with history of Crohn's disease on Stelara, pred nisone, methotrexate, diabetes who presents to the emergency department with shortness of breath found to have hypoxia and COVID-19 positive on 06/15/21. On 06/19/21 he snorted cocaine in his room and developed precipitous hypoxemia requiring urgent intubation from developing? He developed the cocaine lung and cardiac toxicity with combined noncardiogenic as well as cardiogenic pulmonary edema? and he remained intubated for 3 weeks and was extubated on 07/11/21? and respiratory status has been stable on room air and transfered to [facility] on 07/12/21.? Clinically had secondary nosocomial bacterial pneumonia and currently Mayda tropicalis urinary tract infection and some persistent atelectasis bila terally but he is nontoxic Acute respiratory failure with hypoxia secondary to COVID-19 pneumonia, cocaine induced noncardiogenic and cardiogenic pulmonary edema that required prolonged intubation all resolved at this point, sating well on room air. Abdominal pain. Chronic and related to h/o crohn's disease Continue MTX will need to follow up for Stelera typically given in [place] wean prednisone Mood ? Previously on Remeron, Paxil but now on Luvox psych recommends continuing with Luvox for now. HTN BP controlled Increase Lisinopril to 10 (07/30), add Norvasc 5 mg daily (07/30) Diabetes was on glyburide at home, continue holding. Continue Lantus and SSI Mayda tropicalis UTI seen by ID Diflucan 200 mg daily for 14 d, completed treatment Stage 2 pressure foam dressing DVT prophylaxis -Lovenox Code status -full code Attending: dr. Victoria hammo: acute rehab vs snf due to physical debility from prolonged hospital stay. awaiting placement <SULLY Edwards - Last Filed: 08/04/21 13:06> 60-year-old moderately obese with history of Crohn's disease on Stelara, prednisone, methotrexate, diabetes who presents to the emergency department with shortness of breath found to have hypoxia and COVID-19 positive on 06/15/21. On 06/19/21 he snorted cocaine in his room and developed precipitous hypoxemia requiring urgent intubation from developing? He developed the cocaine lung and cardiac toxicity with combined noncardiogenic as well as cardiogenic pulmonary edema? and he remained intubated for 3 weeks and was extubated on 07/11/21? and respiratory status has been stable on room air and transfered to [facility] on 07/12/21.? Clinically had secondary nosocomial bacterial pneumonia and currently Mayda tropicalis urinary tract infection and some persistent atelectasis bilaterally but he is nontoxic Acute respiratory failure with hypoxia secondary to COVID-19 pneumonia, cocaine induced noncardiogenic and cardiogenic pulmonary edema that required prolonged intubation all resolved at this point, sating well on room air. Abdominal pain. Chronic and related to h/o crohn's disease Continue MTX will need to follow up for Stelera typically given in [place] wean prednisone Mood ? Previously on Remeron, Paxil but now on Luvox psych recommends continuing with Luvox for now. HTN BP controlled Increase Lisinopril to 10 (07/30), add Norvasc 5 mg daily (07/30) Diabetes was on glyburide at home, continue holding. Continue Lantus and SSI Mayda tropicalis UTI seen by ID Diflucan 200 mg daily for 14 d, completed treatment Stage 2 pressure foam dressing DVT prophylaxis -Lovenox Code status -full code Attending: dr. Victoria hammo: acute rehab vs snf due to physical debility from prolonged hospital stay. awaiting placement Chart reviewed. Pt examined. Agree with H+P/assesment and plan as outlined by Ms Verenice VIRK <Chaitanya Kessler DO - Last Filed: 08/04/21 18:35> Quality Stroke Does the patient have a stroke diagnosis?: No <SULLY Edwards - Last Filed: 08/04/21 13:06> VTE Prior VTE?: No <SULLY Edwards - Last Filed: 08/04/21 13:06> VTE Risk Level:: Medical - moderate - high <SULLY Edwards - Last Filed: 08/04/21 13:06> VTE Device Contraindication: N/A - Device Ordered <SULLY Edwards - Last Filed: 08/04/21 13:06> VTE Drug Contraindication: N/A - Med Ordered <SULLY Edwards - Last Filed: 08/04/21 13:06>
[2021-08-04 15:44] VITALS: BP 119/66; PULSE 85; RESP 18; TEMP 37.1; O2SAT 94
[2021-08-04 15:52] LABS: Glucose, Whole Blood 190 mg/dL (60-115)
[2021-08-04 20:00] VITALS: BP 137/67; PULSE 88; RESP 18; TEMP 37.2; O2SAT 90
[2021-08-04 20:13] LABS: Glucose, Whole Blood 127 mg/dL (60-115)
[2021-08-04] MEDS: Acetaminophen 325 MG TABLET 650 MG OG-TUBE (20:15)
[2021-08-05] VITALS (8 sets, daily range): BP systolic 110–138; BP diastolic 50–82; PULSE 65–114; RESP 18–20; TEMP 36.6–37.2; O2SAT 91–95
[2021-08-05 07:21] LABS: Glucose, Whole Blood 128 mg/dL (60-115)
[2021-08-05 08:24] LABS: Hematocrit 37.8 % (42.0-52.0); Hemoglobin 11.4 g/dl (14.0-18.0); Mean Corpuscular HGB Conc 30.2 g/dl (31.0-36.0); Mean Corpuscular Hemoglobin 25.7 pg (27.0-33.0); Mean Corpuscular Volume 85.3 fL (80.0-98.0); Mean Platelet Volume 8.8 fL (9.4-12.4); Platelet Count 450 X10*3/uL (160-400); Red Blood Count 4.43 X10*6/uL (4.60-5.80); Red Cell Distribution Width 19.3 % (11.0-16.0); White Blood Count 5.2 X10*3/uL (4.8-10.8)
[2021-08-05] MEDS: lisinopriL 10 MG TABLET PO (08:52)
[2021-08-05] MEDS: fluvoxaMINE Maleate 50 MG TABLET 100 MG PO ×2 (08:52→20:49)
[2021-08-05] MEDS: predniSONE 5 MG TABLET PO (08:52)
[2021-08-05] MEDS: 0.9 % Sodium Chloride Flush 3 ML SYRINGE IVFLUSH ×3 (08:52→20:50)
[2021-08-05] MEDS: Thiamine HCL 100 MG TABLET 200 MG PO ×2 (08:52→20:48)
[2021-08-05] MEDS: Morphine Sulfate 2 MG/ML CARTRIDGE IVPUSH ×3 (08:52→20:55)
[2021-08-05] MEDS: amLODIPine Besylate 5 MG TABLET PO (08:52)
[2021-08-05] MEDS: Ascorbic Acid 500 MG TABLET PO (08:52)
[2021-08-05] MEDS: Enoxaparin Sodium 40 MG/0.4 ML SYRINGE SUBCUT (08:53)
[2021-08-05 09:07] LABS: Anion Gap 15 (12-20); Blood Urea Nitrogen 8 mg/dL (9-16); Calcium 9.2 mg/dL (8.4-10.2); Carbon Dioxide 32 mmol/L (22-29); Chloride 98 mmol/L (96-108); Creatinine Clr Calc Pharmacy 160.5; Estimated Glomerular Filt Rate > 60; Glucose Random 127 mg/dL (60-115); Potassium 2.9 mmol/L (3.3-5.1); Sodium 142 mmol/L (135-145)
[2021-08-05 09:14] LABS: CDiff Gene PCR NEGATIVE (Negative)
--- NOTE | 2021-08-05 09:30 | HO.PM.IMPN ---
Subjective Subjective Date of Service: 08/05/21 Interval History: seen and examined this morning patient reporting lower abdominal pain this morning having some diarrhea, non-bloody denies fever or chills Review of Systems Review of Systems: Yes all other systems are reviewed and are negative Constitutional Constitutional: Denies chills and Denies fever(s) Cardiovascular Cardiovascular: Denies chest pain and Denies palpitations Gastrointestinal Gastrointestinal: Reports abdominal pain, Denies hematochezia, Reports diarrhea and Denies nausea Endocrine Endocrine: Denies palpitations Physical Exam Vital Signs: Vital Signs: Last Vital Signs Temp 98.5 F 08/05/21 07:57 Pulse 72 08/05/21 07:57 Resp 20 08/05/21 07:57 BP 117/78 08/05/21 07:57 Pulse Ox 92 08/05/21 07:57 Oxygen Flow Rate 10 06/15/21 00:21 BMI result Body Mass Index 26.7 Const: General: cooperative, no acute distress, alert and awake Nutritional Appearance: average body habitus and well nourished Orientation/consciousness: patient oriented x3 HENMT: Head: Yes normocephalic and Yes atraumatic Eyes: Sclerae: sclerae normal Resp: Effort & Inspection: normal respiratory effort and able to speak in complete sentences Cardio: Rate: regular rate Rhythm: regular rhythm Heart sounds: S1 normal heart sound present and S2 normal heart sound present GI: Other: soft, non-distended, no guarding; pain on palpation primarily lower quadrants Inspection: No distended Palpation (GI): Soft to palpation, not firm, Tenderness to palpation present (GI) and no guarding Neuro: General: patient oriented x3 Cranial nerves: Yes CN's II-XII intact bilaterally and Yes Bilaterally intact EOM present Extrem: Other: Able to move all extremities spontaneously; no lower extremity edema Objective Data Active Medications Acetaminophen (Acetaminophen 325 Mg Tablet) 650 mg OG-TUBE Q6H PRN PRN Reason: Fever Last Admin: 08/04/21 20:15 Dose: 650 mg Documented by: YAMILEX Amlodipine Besylate (Amlodipine Besylate 5 Mg Tablet) 5 mg PO DAILY [facility]; Protocol Last Admin: 08/05/21 08:52 Dose: 5 mg Documented by: SUNNY Ascorbic Acid (Ascorbic Acid 500 Mg Tablet) 500 mg PO DAILY [facility] Last Admin: 08/05/21 08:52 Dose: 500 mg Documented by: SUNNY Dextrose (Dextrose 50 % 25 Gm/50 Ml Syringe) 25 gm IVPUSH Q15M PRN PRN Reason: per Hypoglycemia Standing Ord. Last Admin: 07/18/21 01:43 Dose: 25 gm Documented by: QUINN Docusate Sodium (Docusate Sodium 100 Mg Capsule) 100 mg PO BEDTIME [facility] Last Admin: 08/04/21 20:35 Dose: Not Given Documented by: YAMILEX Non-Admin Reason: multiple loose stools throughout day Enoxaparin Sodium (Enoxaparin Sodium 40 Mg/0.4 Ml Syringe) 40 mg SUBCUT Q24H [facility] Last Admin: 08/05/21 08:53 Dose: 40 mg Documented by: SUNNY Fluvoxamine Maleate (Fluvoxamine Maleate 50 Mg Tablet) 100 mg PO BID [facility] Last Admin: 08/05/21 08:52 Dose: 100 mg Documented by: SUNNY Insulin Glargine (Insulin Glargine,Hum.Rec.Anlog 100 Unit/Ml 10 Ml Vial) 50 unit SUBCUT BID [facility] Last Admin: 07/17/21 21:06 Dose: Not Given Documented by: QUINN Non-Admin Reason: No Insulin Coverage Insulin Human Lispro (Insulin Lispro 100 Unit/Ml 3 Ml Vial) 0 unit SUBCUT QIDACHS [facility]; Protocol Last Admin: 08/05/21 07:31 Dose: Not Given Documented by: SUNNY Non-Admin Reason: No Insulin Coverage Lisinopril (Lisinopril 10 Mg Tablet) 10 mg PO DAILY [facility]; Protocol Last Admin: 08/05/21 08:52 Dose: 10 mg Documented by: SUNNY Methotrexate (Methotrexate Sodium 2.5 Mg Tablet) 25 mg PO Tu@1800 [facility] Last Admin: 07/31/21 16:35 Dose: 25 mg Documented by: MITCHELL Omeprazole (Omeprazole 20 Mg/10 Ml Susp.Recon) 40 mg PO DAILY@0630 [facility] Last Admin: 08/05/21 06:26 Dose: 40 mg Documented by: KATARINA Polyethylene Glycol (Polyethylene Glycol 3350 17 Gm Powd.Pack) 17 gm PO DAILY [facility] Last Admin: 08/05/21 08:58 Dose: Not Given Documented by: SUNNY Non-Admin Reason: diarhea Potassium Chloride (Potassium Chloride Packet 20 Meq Packet) 40 meq PO BID [facility] Stop: 08/05/21 21:01 Prednisone (Prednisone 5 Mg Tablet) 5 mg PO DAILY [facility] Last Admin: 08/05/21 08:52 Dose: 5 mg Documented by: SUNNY Sodium Chloride (0.9 % Sodium Chloride Flush 3 Ml Syringe) 3 ml IVFLUSH QSHIFT [facility] Last Admin: 08/05/21 08:52 Dose: 3 ml Documented by: SUNNY Thiamine HCl (Thiamine Hcl 100 Mg Tablet) 200 mg PO BID [facility] Last Admin: 08/05/21 08:52 Dose: 200 mg Documented by: SUNNY Labs CBC & Chem 7: 08/05/21 08:12 08/05/21 08:12 Labs: Laboratory Results - last 24 hr 08/04/21 08/04/21 08/04/21 11:02 15:47 20:09 MCV MCH MCHC RDW Plt Count MPV Absolute Nucleated RBC Nucleated RBC % (auto) Anion Gap Estim Creat Clear Calc Estimated GFR POC Glucose 153 H 190 H 127 H Random Glucose Calcium C. difficile Tox B Gene 08/05/21 08/05/21 08/05/21 07:13 08:12 08:12 MCV 85.3 MCH 25.7 L MCHC 30.2 L RDW 19.3 H Plt Count 450 H D MPV 8.8 L Absolute Nucleated RBC 0.000 Nucleated RBC % (auto) 0.0 Anion Gap 15 Estim Creat Clear Calc 160.5 Estimated GFR > 60 POC Glucose 128 H Random Glucose 127 H Calcium 9.2 C. difficile Tox B Gene 08/05/21 08:13 MCV MCH MCHC RDW Plt Count MPV Absolute Nucleated RBC Nucleated RBC % (auto) Anion Gap Estim Creat Clear Calc Estimated GFR POC Glucose Random Glucose Calcium C. difficile Tox B Gene NEGATIVE Assessment and Plan (1) Acute respiratory distress syndrome (ARDS): Status: Acute (2) Abdominal pain: Status: Acute Plan 60-year-old moderately obese with history of Crohn's disease on Stelara, prednisone, methotrexate, diabetes who presents to the emergency department with shortness of breath found to have hypoxia and COVID-19 positive on 06/15/21. On 06/19/21 he snorted cocaine in his room and developed precipitous hypoxemia requiring urgent intubation from developing? He developed the cocaine lung and cardiac toxicity with combined noncardiogenic as well as cardiogenic pulmonary edema? and he remained intubated for 3 weeks and was extubated on 07/11/21? and respiratory status has been stable on room air and transfered to [facility] on 07/12/21.? Clinically had secondary nosocomial bacterial pneumonia and currently Mayda tropicalis urinary tract infection and some persistent atelectasis bilaterally but he is nontoxic Acute Abdominal pain afebrile, no leukocytosis given h/o crohn's disease and diarreha will obtain CT of abdomen/pelvis Continue MTX ; will need to follow up for Stelera typically given in [place] have been weaning prednisone if any abnormalities of CT scan, will re-consult GI Hypokalemia likely r/t diarrhea replace and follow BMP Acute respiratory failure with hypoxia secondary to COVID-19 pneumonia, cocaine induced noncardiogenic and cardiogenic pulmonary edema that required prolonged intubation all resolved at this point, sating well on room air. Mood ? Previously on Remeron, Paxil but now on Luvox psych recommends continuing with Luvox for now. HTN BP controlled Increase Lisinopril to 10 (07/30), add Norvasc 5 mg daily (07/30) Diabetes was on glyburide at home, continue holding. Continue Lantus and SSI Mayda tropicalis UTI seen by ID Diflucan 200 mg daily for 14 d, completed treatment Stage 2 pressure foam dressing DVT prophylaxis -Lovenox Code status -full code Attending: dr. Kessler dispo: acute rehab vs snf due to physical debility from prolonged hospital stay. awaiting placement Quality Stroke Does the patient have a stroke diagnosis?: No VTE Prior VTE?: No VTE Risk Level:: Medical - moderate - high VTE Device Contraindication: N/A - Device Ordered VTE Drug Contraindication: N/A - Med Ordered
[2021-08-05 10:59] LABS: Glucose, Whole Blood 173 mg/dL (60-115)
[2021-08-05] MEDS: Potassium Chloride Packet 20 MEQ PACKET 40 MEQ PO ×2 (11:19→20:50)
[2021-08-05] MEDS: Tamsulosin HCL 0.4 MG CAPSULE PO (14:16)
[2021-08-05 15:52] LABS: Glucose, Whole Blood 161 mg/dL (60-115)
[2021-08-05 19:43] LABS: Glucose, Whole Blood 170 mg/dL (60-115)
[2021-08-06] MEDS: traZODone HCL 25 MG HALFTAB PO (00:38)
[2021-08-06 03:49] VITALS: BP 141/63; PULSE 103; RESP 18; TEMP 36.6; O2SAT 94
[2021-08-06 06:25] LABS: Anion Gap 13 (12-20); Blood Urea Nitrogen 8 mg/dL (9-16); Calcium 8.9 mg/dL (8.4-10.2); Carbon Dioxide 33 mmol/L (22-29); Chloride 101 mmol/L (96-108); Creatinine Clr Calc Pharmacy 160.5; Estimated Glomerular Filt Rate > 60; Glucose Random 116 mg/dL (60-115); Potassium 3.7 mmol/L (3.3-5.1); Sodium 143 mmol/L (135-145)
[2021-08-06 07:35] LABS: Glucose, Whole Blood 112 mg/dL (60-115)
[2021-08-06 08:00] VITALS: BP 145/80; PULSE 100; RESP 16; TEMP 36; O2SAT 95
[2021-08-06] MEDS: polyethylene glycoL 3350 17 GM POWD.PACK PO (09:42)
[2021-08-06] MEDS: Thiamine HCL 100 MG TABLET 200 MG PO ×2 (09:42→21:32)
[2021-08-06] MEDS: Ascorbic Acid 500 MG TABLET PO (09:42)
[2021-08-06] MEDS: Enoxaparin Sodium 40 MG/0.4 ML SYRINGE SUBCUT (09:42)
[2021-08-06] MEDS: lisinopriL 10 MG TABLET PO (09:42)
[2021-08-06] MEDS: 0.9 % Sodium Chloride Flush 3 ML SYRINGE IVFLUSH ×3 (09:42→21:33)
[2021-08-06] MEDS: amLODIPine Besylate 5 MG TABLET PO (09:42)
[2021-08-06] MEDS: fluvoxaMINE Maleate 50 MG TABLET 100 MG PO ×2 (09:42→21:32)
[2021-08-06] MEDS: predniSONE 5 MG TABLET PO (09:43)
[2021-08-06 09:50] VITALS: BP 145/80; PULSE 100; O2SAT 95
[2021-08-06] MEDS: Morphine Sulfate 2 MG/ML CARTRIDGE IVPUSH ×2 (09:57→21:38)
--- NOTE | 2021-08-06 10:14 | P.PNIM_ITS ---
Subjective Subjective Date of Service: 08/06/21 Review of Systems Follow up Covid 19, intubation Doing better everyday, oob to chair working closely with PT c/o back pain Physical Exam Vital Signs: Vital Signs: Last Vital Signs Temp 96.8 F 08/06/21 08:00 Pulse 100 08/06/21 09:50 Resp 16 08/06/21 08:00 BP 145/80 H 08/06/21 09:50 Pulse Ox 95 08/06/21 09:50 Oxygen Flow Rate 10 06/15/21 00:21 BMI result Body Mass Index 26.7 Appearing in no acute distress lung sounds are clear to auscultation heart regular rate rhythm, clear S1, S2 positive bowel sounds, abdomen is soft, nontender neuro patient is alert x3, no focal deficits Objective Data Active Medications Acetaminophen (Acetaminophen 325 Mg Tablet) 650 mg OG-TUBE Q6H PRN PRN Reason: Fever Last Admin: 08/04/21 20:15 Dose: 650 mg Documented by: YAMILEX Amlodipine Besylate (Amlodipine Besylate 5 Mg Tablet) 5 mg PO DAILY [facility]; Protocol Last Admin: 08/06/21 09:42 Dose: 5 mg Documented by: INGRID Ascorbic Acid (Ascorbic Acid 500 Mg Tablet) 500 mg PO DAILY [facility] Last Admin: 08/06/21 09:42 Dose: 500 mg Documented by: INGRID Dextrose (Dextrose 50 % 25 Gm/50 Ml Syringe) 25 gm IVPUSH Q15M PRN PRN Reason: per Hypoglycemia Standing Ord. Last Admin: 07/18/21 01:43 Dose: 25 gm Documented by: QUINN Docusate Sodium (Docusate Sodium 100 Mg Capsule) 100 mg PO BEDTIME [facility] Last Admin: 08/05/21 20:49 Dose: Not Given Documented by: QUINN Non-Admin Reason: pt requested to skip tonight Enoxaparin Sodium (Enoxaparin Sodium 40 Mg/0.4 Ml Syringe) 40 mg SUBCUT Q24H [facility] Last Admin: 08/06/21 09:42 Dose: 40 mg Documented by: INGRID Fluvoxamine Maleate (Fluvoxamine Maleate 50 Mg Tablet) 100 mg PO BID [facility] Last Admin: 08/06/21 09:42 Dose: 100 mg Documented by: INGRID Insulin Glargine (Insulin Glargine,Hum.Rec.Anlog 100 Unit/Ml 10 Ml Vial) 50 un it SUBCUT BID [facility] Last Admin: 07/17/21 21:06 Dose: Not Given Documented by: QUINN Non-Admin Reason: No Insulin Coverage Insulin Human Lispro (Insulin Lispro 100 Unit/Ml 3 Ml Vial) 0 unit SUBCUT QIDACHS [facility]; Protocol Last Admin: 08/06/21 07:45 Dose: Not Given Documented by: INGRID Non-Admin Reason: No Insulin Coverage Lisinopril (Lisinopril 10 Mg Tablet) 10 mg PO DAILY [facility]; Protocol Last Admin: 08/06/21 09:42 Dose: 10 mg Documented by: INGRID Methotrexate (Methotrexate Sodium 2.5 Mg Tablet) 25 mg PO Tu@1800 [facility] Last Admin: 07/31/21 16:35 Dose: 25 mg Documented by: MITCHELL Morphine Sulfate (Morphine Sulfate 2 Mg/Ml Cartridge) 2 mg IVPUSH Q4H PRN; Protocol PRN Reason: Pain, Severe (Pain Scale 7-10) Last Admin: 08/06/21 09:57 Dose: 2 mg Documented by: INGRID Omeprazole (Omeprazole 20 Mg/10 Ml Susp.Recon) 40 mg PO DAILY@0630 [facility] Last Admin: 08/06/21 06:10 Dose: 40 mg Documented by: QUINN Polyethylene Glycol (Polyethylene Glycol 3350 17 Gm Powd.Pack) 17 gm PO DAILY [facility] Last Admin: 08/06/21 09:42 Dose: 17 gm Documented by: INGRID Prednisone (Prednisone 5 Mg Tablet) 5 mg PO DAILY [facility] Last Admin: 08/06/21 09:43 Dose: 5 mg Documented by: INGRID Sodium Chloride (0.9 % Sodium Chloride Flush 3 Ml Syringe) 3 ml IVFLUSH QSHIFT [facility] Last Admin: 08/06/21 09:42 Dose: 3 ml Documented by: INGRID Tamsulosin HCl (Tamsulosin Hcl 0.4 Mg Capsule) 0.4 mg PO BEDTIME [facility] Last Admin: 08/05/21 14:16 Dose: 0.4 mg Documented by: EZEQUIELESBina Thiamine HCl (Thiamine Hcl 100 Mg Tablet) 200 mg PO BID [facility] Last Admin: 08/06/21 09:42 Dose: 200 mg Documented by: INGRID Trazodone HCl (Trazodone Hcl 25 Mg Halftab) 25 mg PO BEDTIME PRN PRN Reason: Insomnia Last Admin: 08/06/21 00:38 Dose: 25 mg Documented by: QUINN Labs CBC & Chem 7: 08/05/21 08:12 08/06/21 05:47 Labs: Laboratory Results - last 24 hr 08/05/21 08/05/21 08/05/21 10:53 15:48 19:13 Anion Gap Estim Creat Clear Calc Estimated GFR POC Glucose 173 H 161 H 170 H Random Glucose Calcium 08/06/21 08/06/21 05:47 07:20 Anion Gap 13 Estim Creat Clear Calc 160.5 Estimated GFR > 60 POC Glucose 112 Random Glucose 116 H Calcium 8.9 Assessment and Plan (1) Acute respiratory distress syndrome (ARDS): Status: Acute (2) Abdominal pain: Status: Acute Plan 60-year-old moderately obese with history of Crohn's disease on Stelara, prednisone, methotrexate, diabetes who presents to the emergency department with shortness of breath found to have hypoxia and COVID-19 positive on 06/15/21. On 06/19/21 he snorted cocaine in his room and developed precipitous hypoxemia requiring urgent intubation from developing? He developed the cocaine lung and cardiac toxicity with combined noncardiogenic as well as cardiogenic pulmonary edema? and he remained intubated for 3 weeks and was extubated on 07/11/21? and respiratory status has been stable on room air and [facility].? Clinically had secondary nosocomial bacterial pneumonia and currently Mayda tropicalis urinary tract infection and some persistent atelectasis bilaterally but he is nontoxic Back pain hx of T12 compression fracture reports skin allergy to lidocaine patch Lumbar spine xray pending Acute Abdominal pain. Resolved 4mm partially obstructing stone to distal left ureter without hydronephrosis Started on Flomax afebrile, no leukocytosis consider consult if no resolution HTN BP controlled Increase Lisinopril to 10 (07/30), add Norvasc 5 mg daily (07/30) Diabetes was on glyburide at home, continue holding. Continue Lantus and SSI Chronic/Resolved Crohn's disease Continue MTX ; will need to follow up for Stelera typically given in [place] have been weaning prednison if any abnormalities of CT scan, will re-consult GI Hypokalemia. Resolved likely r/t diarrhea replace and follow BMP Acute respiratory failure with hypoxia secondary to COVID-19 pneumonia, cocaine induced noncardiogenic and cardiogenic pulmonary edema that required prolonged intubation all resolved at this point, sating well on room air. Mood ? Previously on Remeron, Paxil but now on Luvox psych recommends continuing with Luvox for now. Mayda tropicalis UTI seen by ID Diflucan 200 mg daily for 14 d, completed treatment Stage 2 pressure foam dressing DVT prophylaxis -Lovenox Code status -full code Attending:Dr. Hernandez Dispo: acute rehab vs snf due to physical debility from prolonged hospital stay. awaiting placement Quality Stroke Does the patient have a stroke diagnosis?: No VTE Prior VTE?: No VTE Risk Level:: Medical - moderate - high VTE Device Contraindication: N/A - Device Ordered VTE Drug Contraindication: N/A - Med Ordered
[2021-08-06 11:10] LABS: Glucose, Whole Blood 151 mg/dL (60-115)
--- NOTE | 2021-08-06 12:53 | MHC.CM.PN ---
[facility] are still following for bed availability; they have asked that Addiction Medicine see Patient and are asking if MAT is appropriate. RADHA has relayed this request to TRICIA/Meliza and will continue to follow.
[2021-08-06 16:00] VITALS: BP 124/60; PULSE 80; RESP 16; TEMP 36.6; O2SAT 98
[2021-08-06 16:31] LABS: Glucose, Whole Blood 157 mg/dL (60-115)
--- NOTE | 2021-08-06 16:47 | HO.ADDICTCON ---
History of Present Illness Date of Service: 08/06/2021 Chief Complaint: covid 19 Reason for Consult: Cocaine use Requesting physician: Meliza St Sources of Information: patient interviewed and chart reviewed HPI Narrative: Patient is a 60 year old Slovenian speaking male who has been medically admitted since early June with Covid pneumonia. He was transferred to ICU June 19 after he reportedly used cocaine in his room and removed O2--required emergent intuabtion. He was intubated for several weeks. Patient seen today to follow up regarding cocaine use Patient seen in room 462. He was awake, alert, pleasant and engaged in interview Reports that he caballero snot recall any of the events leading up to being in ICU. Patient expressed embarrassment and regret that this occurred. He reports that he uses cocaine on occasion, maybe every other weekend at the most . He reports intranasal use and at most one bag. Denies any history of IVDU, denies any history of opioid use. Denies any history of treatment for HU. Identifies his family as strong supports Patient repeatedly saying that he has no idea how he ended up in this situation and expressing remorse. Of note, patient seen during this admission by psychiatry as psychiatric medications were adjusted during ICU stay. Past Psychiatric History: unknown. No record of IPLOC at this facility. Review of Systems Comments: reporting weakness in his legs when ambulating Psychiatric: Reports as per HPI Diagnostics Vital Signs (24Hr): Vital Signs - 24 hr 08/05/21 19:11 08/05/21 20:55 08/05/21 23:47 Temperature 98.9 F 98.4 F Pulse Rate 66 82 Respiratory Rate 18 20 20 Blood Pressure 113/53 L 118/50 L Pulse Oximetry 91 L 92 08/06/21 03:49 08/06/21 08:00 08/06/21 09:50 Temperature 98 F 96.8 F Pulse Rate 103 H 100 100 Respiratory Rate 18 16 Blood Pressure 141/63 H 145/80 H 145/80 H Pulse Oximetry 94 95 95 08/06/21 16:00 Temperature 98 F Pulse Rate 80 Respiratory Rate 16 Blood Pressure 124/60 Pulse Oximetry 98 BMI result Body Mass Index 26.7 Labs Results: 08/05/21 08:12 08/06/21 05:47 Labs: Laboratory Results - last 48 hr 08/04/21 08/05/21 08/05/21 20:09 07:13 08:12 WBC 5.2 RBC 4.43 L Hgb 11.4 L Hct 37.8 L MCV 85.3 MCH 25.7 L MCHC 30.2 L RDW 19.3 H Plt Count 450 H D MPV 8.8 L Absolute Nucleated RBC 0.000 Nucleated RBC % (auto) 0.0 Sodium Potassium Chloride Carbon Dioxide Anion Gap BUN Creatinine Estim Creat Clear Calc Estimated GFR POC Glucose 127 H 128 H Random Glucose Calcium C. difficile Tox B Gene 08/05/21 08/05/21 08/05/21 08:12 08:13 10:53 WBC RBC Hgb Hct MCV MCH MCHC RDW Plt Count MPV Absolute Nucleated RBC Nucleated RBC % (auto) Sodium 142 Potassium 2.9 L Chloride 98 Carbon Dioxide 32 H Anion Gap 15 BUN 8 L Creatinine 0.57 Estim Creat Clear Calc 160.5 Estimated GFR > 60 POC Glucose 173 H Random Glucose 127 H Calcium 9.2 C. difficile Tox B Gene NEGATIVE 08/05/21 08/05/21 08/06/21 15:48 19:13 05:47 WBC RBC Hgb Hct MCV MCH MCHC RDW Plt Count MPV Absolute Nucleated RBC Nucleated RBC % (auto) Sodium 143 Potassium 3.7 D Chloride 101 Carbon Dioxide 33 H Anion Gap 13 BUN 8 L Creatinine 0.57 Estim Creat Clear Calc 160.5 Estimated GFR > 60 POC Glucose 161 H 170 H Random Glucose 116 H Calcium 8.9 C. difficile Tox B Gene 08/06/21 08/06/21 08/06/21 07:20 10:53 16:28 WBC RBC Hgb Hct MCV MCH MCHC RDW Plt Count MPV Absolute Nucleated RBC Nucleated RBC % (auto) Sodium Potassium Chloride Carbon Dioxide Anion Gap BUN Creatinine Estim Creat Clear Calc Estimated GFR POC Glucose 112 151 H 157 H Random Glucose Calcium C. difficile Tox B Gene Imaging Radiology Impressions: ITS Impressions Chest X-Ray 06/15/21 01:32 IMPRESSION: Multifocal pneumonitis Chest CTA 06/15/21 20:08 IMPRESSION: No pulmonary embolism. Imaging features of COVID-19 pneumonia present. Other processes such as influenza pneumonia or organizing pneumonia can cause a similar imaging appearance, as can certain drug toxicities and connective tissue diseases. Trace bilateral pleural effusions. Age-indeterminate wedge compression deformities of the T12 and T10 vertebral bodies with 75% height loss new from 2018. VTE: negative Chest X-Ray 06/19/21 23:03 IMPRESSION: Endotracheal tube 5 centers above caden. Persistent extensive bilateral airspace disease. Chest X-Ray 06/20/21 00:04 FINDINGS/IMPRESSION: Right internal jugular central venous catheter terminates in the mid SVC. Endotracheal tube terminates 5.5 cm above the caden. Enteric tube courses below the diaphragm. No pneumothorax. Diffuse bilateral patchy and hazy airspace opacities redemonstrated, without appreciable change from the prior exam. No pleural effusion or pneumothorax. Stable cardiomediastinal silhouette. Chest X-Ray 06/21/21 10:03 IMPRESSION: Diffuse bilateral regions of interstitial and airspace disease. Diminished right lung volume with basilar consolidation. Chest X-Ray 06/22/21 07:53 IMPRESSION: Tubes and lines as described. Persistent patchy bilateral airspace disease similar to yesterday's study. Chest X-Ray 06/23/21 08:35 IMPRESSION: No significant interval change is noted in the diffusely scattered bilateral patchy airspace opacities compared to last chest x-ray. Endotracheal tube terminates 6.2 cm above the caden. Chest X-Ray 06/27/21 12:19 IMPRESSION: New bilateral lower neck and left chest wall subcutaneous emphysema and probable pneumomediastinum. No pneumothorax. Bilateral diffuse airspace is not appreciably changed. Slightly high position of endotracheal tube 8 cm above the caden. Nasogastric tube projects over stomach, tip not seen. Satisfactory position of right jugular line. Findings will be communicated to Dr. Felix by telephone on 06/27/2021 at 12:50 PM. Chest X-Ray 06/29/21 11:55 IMPRESSION: Satisfactory position of endotracheal tube and right jugular line. Nasogastric tube projects over stomach, tip not seen. Increasing size of the cardiac silhouette and increasing mediastinal soft tissue. Increasing pneumomediastinum. It is difficult to exclude a small left pneumothorax. No right pneumothorax. Neck and chest subcutaneous emphysema. Findings will be communicated by the [place] work flow edge inker heels. Chest X-Ray 07/03/21 06:30 IMPRESSION: Endotracheal tube terminating 3 cm above the caden. Very low lung volumes, limits evaluation. Diffuse bilateral airspace opacities remain. No pneumomediastinum seen at this time, though evaluation of the cardiomediastinal silhouette is limited.. Chest X-Ray 07/07/21 05:07 IMPRESSION: Bilateral airspace opacities show some improvement from prior. Endotracheal tube terminates 6 cm above the caden. No definite pneumomediastinum seen. Chest X-Ray 07/11/21 04:00 IMPRESSION: Multifocal bilateral opacities appear overall similar to 07/07/2021. Abdomen/Pelvis CT 07/13/21 12:37 IMPRESSION: There is a nonobstructing 4 mm distal right ureteral calculus, 2 bladder calculi and several bilateral nonobstructing renal calculi. Interval development of vertebral compression deformities of the superior endplates of L2, L4 and possibly the inferior endplate of L1. There is progressive vertebral body height loss of T12 compression fracture. Increased aeration of the lung bases. Fleischner guidelines were followed. Chest X-Ray 07/18/21 21:32 IMPRESSION: Hypoinflated lungs with similar bilateral patchy airspace disease. Abdomen/Pelvis CT 08/05/21 09:38 IMPRESSION: 4 mm partially obstructive calculi distal left ureter. Previously seen right distal ureter calculi has resolved. There is no hydronephrosis on either side. At least 3 radiopaque calculi seen in the left kidney without caliectasis. T12 and T10 old compression fractures. Fleischner guidelines were followed. Lumbar Spine X-Ray 08/06/21 11:18 IMPRESSION: Superior endplate deformities of L2-L3 and L4 vertebra likely related to osteoporotic compressions of indeterminate age. If patient has acute pain further evaluation with MRI or bone scan can be obtained. Mild degenerative facet joint arthropathy at L4-L5 and L5-S1 disc level with degenerative L5-S1 disc changes. Mental Status Exam Mental Status Exam Patient Appearance: Appropriate (hospital attire ) Patient Orientation: Person, Place, Time and Situation Level of Consciousness: Awake, Appropriate and Alert Patient Behavior: Appropriate and Cooperative Mood Description: Calm Affect Description: Calm Patient Cognition Impaired: No Judgement: Fair Medications Medications Current Medications Acetaminophen (Acetaminophen 325 Mg Tablet) 650 mg OG-TUBE Q6H PRN PRN Reason: Fever Last Admin: 08/04/21 20:15 Dose: 650 mg Documented by: Amlodipine Besylate (Amlodipine Besylate 5 Mg Tablet) 5 mg PO DAILY [facility]; Protocol Last Admin: 08/06/21 09:42 Dose: 5 mg Documented by: Ascorbic Acid (Ascorbic Acid 500 Mg Tablet) 500 mg PO DAILY [facility] Last Admin: 08/06/21 09:42 Dose: 500 mg Documented by: Dextrose (Dextrose 50 % 25 Gm/50 Ml Syringe) 25 gm IVPUSH Q15M PRN PRN Reason: per Hypoglycemia Standing Ord. Last Admin: 07/18/21 01:43 Dose: 25 gm Documented by: Docusate Sodium (Docusate Sodium 100 Mg Capsule) 100 mg PO BEDTIME [facility] Last Admin: 08/05/21 20:49 Dose: Not Given Documented by: Enoxaparin Sodium (Enoxaparin Sodium 40 Mg/0.4 Ml Syringe) 40 mg SUBCUT Q24H [facility] Last Admin: 08/06/21 09:42 Dose: 40 mg Documented by: Fluvoxamine Maleate (Fluvoxamine Maleate 50 Mg Tablet) 100 mg PO BID [facility] Last Admin: 08/06/21 09:42 Dose: 100 mg Documented by: Insulin Glargine (Insulin Glargine,Hum.Rec.Anlog 100 Unit/Ml 10 Ml Vial) 50 unit SUBCUT BID [facility] Last Admin: 07/17/21 21:06 Dose: Not Given Documented by: Insulin Human Lispro (Insulin Lispro 100 Unit/Ml 3 Ml Vial) 0 unit SUBCUT QIDACHS [facility]; Protocol Last Admin: 08/06/21 16:34 Dose: Not Given Documented by: Lisinopril (Lisinopril 10 Mg Tablet) 10 mg PO DAILY [facility]; Protocol Last Admin: 08/06/21 09:42 Dose: 10 mg Documented by: Methotrexate (Methotrexate Sodium 2.5 Mg Tablet) 25 mg PO Tu@1800 [facility] Last Admin: 07/31/21 16:35 Dose: 25 mg Documented by: Morphine Sulfate (Morphine Sulfate 2 Mg/Ml Cartridge) 2 mg IVPUSH Q4H PRN; Protocol PRN Reason: Pain, Severe (Pain Scale 7-10) Last Admin: 08/06/21 09:57 Dose: 2 mg Documented by: Omeprazole (Omeprazole 20 Mg/10 Ml Susp.Recon) 40 mg PO DAILY@0630 [facility] Last Admin: 08/06/21 06:10 Dose: 40 mg Documented by: Polyethylene Glycol (Polyethylene Glycol 3350 17 Gm Powd.Pack) 17 gm PO DAILY [facility] Last Admin: 08/06/21 09:42 Dose: 17 gm Documented by: Prednisone (Prednisone 5 Mg Tablet) 5 mg PO DAILY [facility] Last Admin: 08/06/21 09:43 Dose: 5 mg Documented by: Sodium Chloride (0.9 % Sodium Chloride Flush 3 Ml Syringe) 3 ml IVFLUSH QSHIFT [facility] Last Admin: 08/06/21 09:42 Dose: 3 ml Documented by: Tamsulosin HCl (Tamsulosin Hcl 0.4 Mg Capsule) 0.4 mg PO BEDTIME [facility] Last Admin: 08/05/21 14:16 Dose: 0.4 mg Documented by: Thiamine HCl (Thiamine Hcl 100 Mg Tablet) 200 mg PO BID [facility] Last Admin: 08/06/21 09:42 Dose: 200 mg Documented by: Trazodone HCl (Trazodone Hcl 25 Mg Halftab) 25 mg PO BEDTIME PRN PRN Reason: Insomnia Last Admin: 08/06/21 00:38 Dose: 25 mg Documented by: Allergies Allergies Allergy/AdvReac Type Severity Reaction Status Date / Time lorazepam [From Ativan] AdvReac Severe AGITATION Verified 06/20/21 00:19 ? EDEMA none Allergy Unknown Unknown Uncoded 04/02/21 16:05 Assessment & Plan Assessment & Plan (1) Cocaine abuse with intoxication: Status: Acute Code(s): F14.129 - Cocaine abuse with intoxication, unspecified Assessment and Plan: patient declined any referrals. Denies cocaine use as an ongoing issue and verbalizes that he does not plan to use again once discharged. Patient states that he feels risk to his health is too great no follow up needed --discussed with attending provider I spent ___30___ minutes with the patient and/or on the patient floor today, greater than?50% of which was spent counseling/coordinating care. 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) Family History Family history: reviewed and not pertinent Surgical History Surgical History History of bone marrow biopsy (~2016) History of cholecystectomy (~2011) History of colonoscopy (~2020) History of esophagogastroduodenoscopy (EGD) (~2020) History of hemorrhoidectomy (~2003) History of lithotripsy (~2017) History of rectal sphincterotomy (~2003) History of right knee surgery (~2016) History of surgery on right wrist (~2006) Social History Social History Household Members: Family Housing: Apartment Do you presently have visiting nurse or other home services: No Alcohol intake: never Patient Tobacco Use Status: Never used Tobacco e-Cigarette/Vaping Use: Never Used Second Hand Smoke Exposure: No Advance Directives Date on File: 04/04/21 service: No Current occupational status: disabled
[2021-08-06 19:56] VITALS: BP 115/80; PULSE 120; RESP 16; TEMP 37.6; O2SAT 92
[2021-08-06 20:34] LABS: Glucose, Whole Blood 126 mg/dL (60-115)
[2021-08-06] MEDS: Tamsulosin HCL 0.4 MG CAPSULE PO (21:32)
[2021-08-06 21:38] VITALS: RESP 20
[2021-08-07] VITALS (8 sets, daily range): BP systolic 104–133; BP diastolic 62–78; PULSE 70–113; RESP 16–20; TEMP 36.3–37.3; O2SAT 91–97
[2021-08-07] MEDS: traZODone HCL 25 MG HALFTAB PO ×2 (00:06→20:36)
[2021-08-07 06:57] LABS: Glucose, Whole Blood 117 mg/dL (60-115)
[2021-08-07] MEDS: Enoxaparin Sodium 40 MG/0.4 ML SYRINGE SUBCUT (08:38)
[2021-08-07] MEDS: fluvoxaMINE Maleate 50 MG TABLET 100 MG PO ×2 (08:39→20:36)
[2021-08-07] MEDS: 0.9 % Sodium Chloride Flush 3 ML SYRINGE IVFLUSH ×3 (08:39→20:36)
[2021-08-07] MEDS: lisinopriL 10 MG TABLET PO (08:39)
[2021-08-07] MEDS: Ascorbic Acid 500 MG TABLET PO (08:39)
[2021-08-07] MEDS: amLODIPine Besylate 5 MG TABLET PO (08:39)
[2021-08-07] MEDS: Thiamine HCL 100 MG TABLET 200 MG PO ×2 (08:39→20:35)
[2021-08-07] MEDS: predniSONE 5 MG TABLET PO (08:39)
--- NOTE | 2021-08-07 08:51 | PC.NURSE ---
Skin wound assessment completed today. Patient has a stage 3 to coccyx and a stage 2 around anal area from diarrhea. Silver alginate applied ti both ulcers and foam dressing applied. Very dry feet with scaling skin. Ammonium lactate applied to feet. No other skin issues noted at this time.
--- NOTE | 2021-08-07 11:08 | P.PNIM_ITS ---
Subjective Subjective Date of Service: 08/07/21 Review of Systems Follow up Covid 19, intubation Doing better everyday, oob to chair working closely with PT c/o back pain Physical Exam Vital Signs: Vital Signs: Last Vital Signs Temp 97.9 F 08/07/21 07:15 Pulse 113 H 08/07/21 09:09 Resp 18 08/07/21 07:15 BP 120/73 08/07/21 09:09 Pulse Ox 93 08/07/21 09:09 Oxygen Flow Rate 10 06/15/21 00:21 BMI result Body Mass Index 26.7 Appearing in no acute distress lung sounds are clear to auscultation heart regular rate rhythm, clear S1, S2 positive bowel sounds, abdomen is soft, nontender neuro patient is alert x3, no focal deficits Objective Data Active Medications Acetaminophen (Acetaminophen 325 Mg Tablet) 650 mg OG-TUBE Q6H PRN PRN Reason: Fever Last Admin: 08/04/21 20:15 Dose: 650 mg Documented by: YAMILEX Amlodipine Besylate (Amlodipine Besylate 5 Mg Tablet) 5 mg PO DAILY [facility]; Protocol Last Admin: 08/07/21 08:39 Dose: 5 mg Documented by: EDWARDO Ascorbic Acid (Ascorbic Acid 500 Mg Tablet) 500 mg PO DAILY [facility] Last Admin: 08/07/21 08:39 Dose: 500 mg Documented by: EDWARDO Dextrose (Dextrose 50 % 25 Gm/50 Ml Syringe) 25 gm IVPUSH Q15M PRN PRN Reason: per Hypoglycemia Standing Ord. Last Admin: 07/18/21 01:43 Dose: 25 gm Documented by: QUINN Docusate Sodium (Docusate Sodium 100 Mg Capsule) 100 mg PO BEDTIME [facility] Last Admin: 08/06/21 21:33 Dose: Not Given Documented by: QUINN Non-Admin Reason: loose stool at 2030 Enoxaparin Sodium (Enoxaparin Sodium 40 Mg/0.4 Ml Syringe) 40 mg SUBCUT Q24H [facility] Last Admin: 08/07/21 08:38 Dose: 40 mg Documented by: EDWARDO Fluvoxamine Maleate (Fluvoxamine Maleate 50 Mg Tablet) 100 mg PO BID [facility] Last Admin: 08/07/21 08:39 Dose: 100 mg Documented by: EDWARDO Insulin Glargine (Insulin Glargine,Hum.Rec.Anlog 100 Unit/Ml 10 Ml Vial) 50 unit SUBCUT BID [facility] Last Admin: 07/17/21 21:06 Dose: Not Given Documented by: QUINN Non-Admin Reason: No Insulin Coverage Insulin Human Lispro (Insulin Lispro 100 Unit/Ml 3 Ml Vial) 0 unit SUBCUT QID ACHS [facility]; Protocol Last Admin: 08/07/21 08:34 Dose: Not Given Documented by: EDWARDO Non-Admin Reason: No Insulin Coverage Lactic Acid (Ammonium Lactate 12 % Lotion 226 Gm Bottle) 1 appl TOPICAL BID [facility]; Protocol Lisinopril (Lisinopril 10 Mg Tablet) 10 mg PO DAILY [facility]; Protocol Last Admin: 08/07/21 08:39 Dose: 10 mg Documented by: DEWARDO Methotrexate (Methotrexate Sodium 2.5 Mg Tablet) 25 mg PO Tu@1800 [facility] Last Admin: 07/31/21 16:35 Dose: 25 mg Documented by: MITCHELL Morphine Sulfate (Morphine Sulfate 2 Mg/Ml Cartridge) 2 mg IVPUSH Q4H PRN; Protocol PRN Reason: Pain, Severe (Pain Scale 7-10) Last Admin: 08/06/21 21:38 Dose: 2 mg Documented by: QUINN Omeprazole (Omeprazole 20 Mg/10 Ml Susp.Recon) 40 mg PO DAILY@0630 [facility] Last Admin: 08/07/21 06:08 Dose: 40 mg Documented by: QUINN Polyethylene Glycol (Polyethylene Glycol 3350 17 Gm Powd.Pack) 17 gm PO DAILY [facility] Last Admin: 08/07/21 08:40 Dose: Not Given Documented by: EDWARDO Non-Admin Reason: several bms Prednisone (Prednisone 5 Mg Tablet) 5 mg PO DAILY [facility] Last Admin: 08/07/21 08:39 Dose: 5 mg Documented by: EDWARDO Sodium Chloride (0.9 % Sodium Chloride Flush 3 Ml Syringe) 3 ml IVFLUSH QSHIFT [facility] Last Admin: 08/07/21 08:39 Dose: 3 ml Documented by: EDWARDO Tamsulosin HCl (Tamsulosin Hcl 0.4 Mg Capsule) 0.4 mg PO BEDTIME [facility] Last Admin: 08/06/21 21:32 Dose: 0.4 mg Documented by: HO.ANDERM Thiamine HCl (Thiamine Hcl 100 Mg Tablet) 200 mg PO BID [facility] Last Admin: 08/07/21 08:39 Dose: 200 mg Documented by: EDWARDO Trazodone HCl (Trazodone Hcl 25 Mg Halftab) 25 mg PO BEDTIME PRN PRN Reason: Insomnia Last Admin: 08/07/21 00:06 Dose: 25 mg Documented by: QUINN Labs CBC & Chem 7: 08/05/21 08:12 08/06/21 05:47 Labs: Laboratory Results - last 24 hr 08/06/21 08/06/21 08/06/21 10:53 16:28 20:28 POC Glucose 151 H 157 H 126 H 08/07/21 06:54 POC Glucose 117 H Assessment and Plan (1) Acute respiratory distress syndrome (ARDS): Status: Acute (2) Abdominal pain: Status: Acute Plan 60-year-old moderately obese with history of Crohn's disease on Stelara, prednisone, methotrexate, diabetes who presents to the emergency department with shortness of breath found to have hypoxia and COVID-19 positive on 06/15/21. On 06/19/21 he snorted cocaine in his room and developed precipitous hypoxemia requiring urgent intubation from developing? He developed the cocaine lung and cardiac toxicity with combined noncardiogenic as well as cardiogenic pulmonary edema? and he remained intubated for 3 weeks and was extubated on 07/11/21? and respiratory status has been stable on room air and transfered to [facility] on 07/12/21.? Clinically had secondary nosocomial bacterial pneumonia and currently Mayda tropicalis urinary tract infection and some persistent atelectasis bilaterally but he is nontoxic Back pain hx of T12 compression fracture reports skin allergy to lidocaine patch Multiple areas of compression fx on [facility] CT Discussed with IR provider, plan for kyphoplasty tomorrow npo after midnight Acute Abdominal pain. Resolved 4mm partially obstructing stone to distal left ureter without hydronephrosis Started on Flomax afebrile, no leukocytosis consider consult if no resolution HTN BP controlled Increase Lisinopril to 10 (07/30), add Norvasc 5 mg daily (07/30) Diabetes was on glyburide at home, continue holding. Continue Lantus and SSI Chronic/Resolved Crohn's disease Continue MTX ; will need to follow up for Stelera typically given in [place] have been weaning prednison if any abnormalities of CT scan, will re-consult GI Hypokalemia. Resolved likely r/t diarrhea replace and follow BMP Acute respiratory failure with hypoxia secondary to COVID-19 pneumonia, cocaine induced noncardiogenic and cardiogenic pulmonary edema that required prolonged intubation all resolved at this point, sating well on room air. Mood ? Previously on Remeron, Paxil but now on Luvox psych recommends continuing with Luvox for now. Mayda tropicalis UTI seen by ID Diflucan 200 mg daily for 14 d, completed treatment Stage 2 pressure foam dressing DVT prophylaxis -Lovenox Code status -full code Attending:Dr. Hernandez Dispo: acute rehab vs snf due to physical debility from prolonged hospital stay. awaiting placement Quality Stroke Does the patient have a stroke diagnosis?: No VTE Prior VTE?: No VTE Risk Level:: Medical - moderate - high VTE Device Contraindication: N/A - Device Ordered VTE Drug Contraindication: N/A - Med Ordered
[2021-08-07 11:20] LABS: Glucose, Whole Blood 144 mg/dL (60-115)
[2021-08-07 15:49] LABS: Glucose, Whole Blood 169 mg/dL (60-115)
[2021-08-07] MEDS: Ammonium Lactate 12 % Lotion 226 GM BOTTLE 1 APPL TOPICAL ×2 (17:12→20:36)
[2021-08-07] MEDS: Insulin Lispro 100 UNIT/ML 3 ML VIAL SUBCUT (17:13)
[2021-08-07] MEDS: metHOTREXate sodium 2.5 MG TABLET 25 MG PO (17:14)
[2021-08-07] MEDS: Morphine Sulfate 2 MG/ML CARTRIDGE IVPUSH (17:25)
[2021-08-07 20:14] LABS: Glucose, Whole Blood 78 mg/dL (60-115)
[2021-08-07] MEDS: Tamsulosin HCL 0.4 MG CAPSULE PO (20:36)
[2021-08-08] VITALS (8 sets, daily range): BP systolic 111–122; BP diastolic 54–77; PULSE 60–107; RESP 15–18; TEMP 36.2–37.2; O2SAT 90–94
[2021-08-08] MEDS: Morphine Sulfate 2 MG/ML CARTRIDGE IVPUSH ×2 (01:03→21:38)
[2021-08-08 06:57] LABS: INTERNATIONAL NORM RATIO 1.1 (0.9-1.1)
[2021-08-08 07:25] LABS: Glucose, Whole Blood 99 mg/dL (60-115)
[2021-08-08] MEDS: predniSONE 5 MG TABLET PO (09:16)
[2021-08-08] MEDS: lisinopriL 10 MG TABLET PO (09:16)
[2021-08-08] MEDS: fluvoxaMINE Maleate 50 MG TABLET 100 MG PO ×2 (09:16→21:38)
[2021-08-08] MEDS: 0.9 % Sodium Chloride Flush 3 ML SYRINGE IVFLUSH ×3 (09:16→21:39)
[2021-08-08] MEDS: Ammonium Lactate 12 % Lotion 226 GM BOTTLE 1 APPL TOPICAL ×2 (09:17→22:09)
[2021-08-08] MEDS: amLODIPine Besylate 5 MG TABLET PO (09:17)
--- NOTE | 2021-08-08 09:37 | HO.PM.IMPN ---
Subjective Subjective Date of Service: 08/08/21 Review of Systems Follow up Covid 19, intubation Doing better everyday, oob to chair working closely with PT c/o back pain Physical Exam Vital Signs: Vital Signs: Last Vital Signs Temp 99.0 F 08/08/21 07:10 Pulse 95 08/08/21 09:20 Resp 18 08/08/21 07:10 BP 121/63 08/08/21 09:20 Pulse Ox 93 08/08/21 09:20 Oxygen Flow Rate 10 06/15/21 00:21 BMI result Body Mass Index 26.7 Appearing in no acute distress lung sounds are clear to auscultation heart regular rate rhythm, clear S1, S2 positive bowel sounds, abdomen is soft, nontender neuro patient is alert x3, no focal deficits Objective Data Active Medications Acetaminophen (Acetaminophen 325 Mg Tablet) 650 mg OG-TUBE Q6H PRN PRN Reason: Fever Last Admin: 08/04/21 20:15 Dose: 650 mg Documented by: YAMILEX Amlodipine Besylate (Amlodipine Besylate 5 Mg Tablet) 5 mg PO DAILY [facility]; Protocol Last Admin: 08/08/21 09:17 Dose: 5 mg Documented by: MOIRA Ascorbic Acid (Ascorbic Acid 500 Mg Tablet) 500 mg PO DAILY [facility] Last Admin: 08/08/21 09:17 Dose: Not Given Documented by: MOIRA Non-Admin Reason: NPO Dextrose (Dextrose 50 % 25 Gm/50 Ml Syringe) 25 gm IVPUSH Q15M PRN PRN Reason: per Hypoglycemia Standing Ord. Last Admin: 07/18/21 01:43 Dose: 25 gm Documented by: QUINN Docusate Sodium (Docusate Sodium 100 Mg Capsule) 100 mg PO BEDTIME [facility] Last Admin: 08/07/21 20:36 Dose: Not Given Documented by: QUINN Non-Admin Reason: Patient Refused Enoxaparin Sodium (Enoxaparin Sodium 40 Mg/0.4 Ml Syringe) 40 mg SUBCUT Q24H [facility] Last Admin: 08/08/21 09:17 Dose: Not Given Documented by: MOIRA Non-Admin Reason: pre procedure today Fluvoxamine Maleate (Fluvoxamine Maleate 50 Mg Tablet) 100 mg PO BID [facility] Last Admin: 08/08/21 09:16 Dose: 100 mg Documented by: MOIRA Insulin Glargine (Insulin Glargine,Hum.Rec.Anlog 100 Unit/Ml 10 Ml Vial) 50 unit SUBCUT BID [facility] Last Admin: 07/17/21 21:06 Dose: Not Given Documented by: QUINN Non-Admin Reason: No Insulin Coverage Insulin Human Lispro (Insulin Lispro 100 Unit/Ml 3 Ml Vial) 0 unit SUBCUT QIDACHS [facility]; Protocol Last Admin: 08/08/21 09:10 Dose: Not Given Documented by: MOIRA Non-Admin Reason: No Insulin Coverage Lactic Acid (Ammonium Lactate 12 % Lotion 226 Gm Bottle) 1 appl TOPICAL BID [facility]; Protocol Last Admin: 08/08/21 09:17 Dose: 1 appl Documented by: MOIRA Lisinopril (Lisinopril 10 Mg Tablet) 10 mg PO DAILY [facility]; Protocol Last Admin: 08/08/21 09:16 Dose: 10 mg Documented by: MOIRA Methotrexate (Methotrexate Sodium 2.5 Mg Tablet) 25 mg PO Tu@1800 [facility] Last Admin: 08/07/21 17:14 Dose: 25 mg Documented by: EDWARDO Morphine Sulfate (Morphine Sulfate 2 Mg/Ml Cartridge) 2 mg IVPUSH Q4H PRN; Protocol PRN Reason: Pain, Severe (Pain Scale 7-10) Last Admin: 08/08/21 01:03 Dose: 2 mg Documented by: IDALIA Omeprazole (Omeprazole 20 Mg/10 Ml Susp.Recon) 40 mg PO DAILY@0630 [facility] Last Admin: 08/08/21 06:03 Dose: 40 mg Documented by: IDALIA Polyethylene Glycol (Polyethylene Glycol 3350 17 Gm Powd.Pack) 17 gm PO DAILY [facility] Last Admin: 08/08/21 09:17 Dose: Not Given Documented by: MOIRA Non-Admin Reason: NPO Prednisone (Prednisone 5 Mg Tablet) 5 mg PO DAILY [facility] Last Admin: 08/08/21 09:16 Dose: 5 mg Documented by: MOIRA Sodium Chloride (0.9 % Sodium Chloride Flush 3 Ml Syringe) 3 ml IVFLUSH QSHIFT [facility] Last Admin: 08/08/21 09:16 Dose: 3 ml Documented by: MOIRA Tamsulosin HCl (Tamsulosin Hcl 0.4 Mg Capsule) 0.4 mg PO BEDTIME [facility] Last Admin: 08/07/21 20:36 Dose: 0.4 mg Documented by: QUINN Thiamine HCl (Thiamine Hcl 100 Mg Tablet) 200 mg PO BID [facility] Last Admin: 08/08/21 09:18 Dose: Not Given Documented by: MOIRA Non-Admin Reason: NPO Trazodone HCl (Trazodone Hcl 25 Mg Halftab) 25 mg PO BEDTIME PRN PRN Reason: Insomnia Last Admin: 08/07/21 20:36 Dose: 25 mg Documented by: QUINN Labs CBC & Chem 7: 08/05/21 08:12 08/06/21 05:47 Labs: Laboratory Results - last 24 hr 08/07/21 08/07/21 08/07/21 11:12 15:45 20:09 PT INR POC Glucose 144 H 169 H 78 08/08/21 08/08/21 06:20 07:12 PT 12.0 INR 1.1 POC Glucose 99 Assessment and Plan (1) Acute respiratory distress syndrome (ARDS): Status: Acute (2) Abdominal pain: Status: Acute Plan 60-year-old moderately obese with history of Crohn's disease on Stelara, prednisone, methotrexate, diabetes who presents to the emergency department with shortness of breath found to have hypoxia and COVID-19 positive on 06/15/21. On 06/19/21 he snorted cocaine in his room and developed precipitous hypoxemia requiring urgent intubation from developing? He developed the cocaine lung and cardiac toxicity with combined noncardiogenic as well as cardiogenic pulmonary edema? and he remained intubated for 3 weeks and was extubated on 07/11/21? and respiratory status has been stable on room air and transfered to [facility] on 07/12/21.? Clinically had secondary nosocomial bacterial pneumonia and currently Mayda tropicalis urinary tract infection and some persistent atelectasis bilaterally but he is nontoxic Back pain hx of T12 compression fracture reports skin allergy to lidocaine patch Multiple areas of compression fx on [place] CT Discussed with IR provider, plan for kyphoplasty today Acute Abdominal pain. Resolved 4mm partially obstructing stone to distal left ureter without hydronephrosis Started on Flomax afebrile, no leukocytosis consider consult if no resolution HTN BP controlled Continue lisinopril and norvasc Diabetes was on glyburide at home, continue holding. Continue Lantus and SSI Chronic/Resolved Crohn's disease Continue MTX ; will need to follow up for Stelera typically given in [place] have been weaning prednison if any abnormalities of CT scan, will re-consult GI Hypokalemia. Resolved likely r/t diarrhea replace and follow BMP Acute respiratory failure with hypoxia secondary to COVID-19 pneumonia, cocaine induced noncardiogenic and cardiogenic pulmonary edema that required prolonged intubation all resolved at this point, sating well on room air. Mood ? Previously on Remeron, Paxil but now on Luvox psych recommends continuing with Luvox for now. Mayda tropicalis UTI seen by ID Diflucan 200 mg daily for 14 d, completed treatment Stage 2 pressure foam dressing DVT prophylaxis -Lovenox Code status -full code Attending:Dr. Hernandez Dispo: acute rehab vs snf due to physical debility from prolonged hospital stay. awaiting placement Quality Stroke Does the patient have a stroke diagnosis?: No VTE Prior VTE?: No VTE Risk Level:: Medical - moderate - high VTE Device Contraindication: N/A - Device Ordered VTE Drug Contraindication: N/A - Med Ordered
[2021-08-08 11:09] LABS: Glucose, Whole Blood 128 mg/dL (60-115)
--- NOTE | 2021-08-08 12:21 | MHC.CLN ---
F/U PO INTAKE CONSISTENTLY 75-100% PT IS CURRENTLY NPO FOR SCHEDULED KYPHOPLASTY TODAY WHEN DIET TO RESUME; RECOMMEND 2200DM AND GLUCERNA BID TO INCREASE KCALS AND PROMOTE WOUND HEALING SUPP PROVIDES 474KCALS, 20G PROTEIN WITH 100% ACCEPTANCE MONITOR PO INTAKE CLOSELY GOAL: IMPROVED WOUND HEALING WILL FOLLOW UP X 7 DAYS
--- NOTE | 2021-08-08 13:49 | MHC.CM.PN ---
Per ROUNDS discussion, Patient is having Kyphoplasty today; SNF search is ongoing.
[2021-08-08 16:15] LABS: Glucose, Whole Blood 125 mg/dL (60-115)
[2021-08-08 20:11] LABS: Glucose, Whole Blood 164 mg/dL (60-115)
[2021-08-08] MEDS: Docusate Sodium 100 MG CAPSULE PO (21:38)
[2021-08-08] MEDS: Thiamine HCL 100 MG TABLET 200 MG PO (21:38)
[2021-08-08] MEDS: Tamsulosin HCL 0.4 MG CAPSULE PO (21:38)
[2021-08-08] MEDS: traZODone HCL 25 MG HALFTAB PO (21:39)
[2021-08-09] VITALS (18 sets, daily range): BP systolic 80–126; BP diastolic 53–74; PULSE 91–111; RESP 15–22; TEMP 35.7–36.7; O2SAT 92–100
[2021-08-09 07:32] LABS: Glucose, Whole Blood 120 mg/dL (60-115)
[2021-08-09] MEDS: amLODIPine Besylate 5 MG TABLET PO (09:12)
[2021-08-09] MEDS: fluvoxaMINE Maleate 50 MG TABLET 100 MG PO ×2 (09:12→21:11)
[2021-08-09] MEDS: predniSONE 5 MG TABLET PO (09:12)
[2021-08-09] MEDS: lisinopriL 10 MG TABLET PO (09:12)
[2021-08-09] MEDS: Ammonium Lactate 12 % Lotion 226 GM BOTTLE 1 APPL TOPICAL ×2 (09:12→21:11)
[2021-08-09] MEDS: Morphine Sulfate 2 MG/ML CARTRIDGE IVPUSH (09:12)
[2021-08-09] MEDS: 0.9 % Sodium Chloride Flush 3 ML SYRINGE IVFLUSH ×2 (09:12→23:45)
[2021-08-09 09:28] LABS: Glucose, Whole Blood 107 mg/dL (60-115)
--- NOTE | 2021-08-09 10:40 | P.CONAN_ITS ---
HPI - Anesthesia Eval Consult details Narrative: 60 M for kyphoplasty ?AML in remission, Crohn's/UC?, prolonged hospital course secondory to COVID pneumonia . Patient remained intubated for 3 weeks during this hospitalization . Patient extremely deconditioned . As per records , patient had a new oxygen requirement last night/ early this AM , 2Liters . Discussed with hospitalist service , as per discussion they will order CXR and follow-up on that post-procedure . [facility] Active Problems Active Problems: All Active Problems (Updated 08/05/21 @ 09:32 by SULLY Edwards) Abdominal pain (Acute) Mayda tropicalis infection (Acute) SAM (generalized anxiety disorder) (Acute) Crohn disease (Acute ~2002) Diabetes 1.5, managed as type 1 (Acute) Pneumomediastinum (Acute) Pulmonary edema due to chemical (Acute) Cocaine abuse with intoxication (Acute) Suppression of immune system subtherapeutic (Acute) Morbid obesity (Acute) Acute respiratory distress syndrome (ARDS) (Acute) Acute hypoxemic respiratory failure (Acute) IBD (inflammatory bowel disease) (Acute) Anemia (Acute) Pneumonia due to COVID-19 virus (Acute ~06/2021) Hypoxia (Acute) CHF (congestive heart failure) (Acute) Normocytic anemia (Acute) Colitis (Acute ~2002) Past Medical History Medical History Acute promyelocytic leukemia (~08/2016) Anxiety Asthma Mayda tropicalis infection Chronic idiopathic constipation Colitis (~2002) Crohn disease (~2002) Depression Diabetes 1.5, managed as type 1 Diarrhea Elevated serum glutamic pyruvic transaminase (SGPT) level History of subarachnoid hemorrhage (~08/2016) Hypertension Kidney disease Left sided abdominal pain Morbid obesity Renal stones 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) Family History Family history of problems with anesthesia: No Surgical History Surgical History History of bone marrow biopsy (~2016) History of cholecystectomy (~2011) History of colonoscopy (~2020) History of esophagogastroduodenoscopy (EGD) (~2020) History of hemorrhoidectomy (~2003) History of lithotripsy (~2017) History of rectal sphincterotomy (~2003) History of right knee surgery (~2017) History of surgery on right wrist (~2006) History of Problems with Anesthesia: No Social History Social History Household Members: Family Housing: Apartment Do you presently have visiting nurse or other home services: No Alcohol intake: never Patient Tobacco Use Status: Never used Tobacco e-Cigarette/Vaping Use: Never Used Second Hand Smoke Exposure: No Advance Directives Date on File: 04/04/21 service: No Current occupational status: disabled Meds Allergies Allergy/AdvReac Type Severity Reaction Status Date / Time lorazepam [From Ativan] AdvReac Severe AGITATION Verified 08/09/21 09:46 ? EDEMA none Allergy Unknown Unknown Uncoded 04/02/21 16:05 Active Medications: Current Medications Acetaminophen (Acetaminophen 325 Mg Tablet) 650 mg OG-TUBE Q6H PRN PRN Reason: Fever Last Admin: 08/04/21 20:15 Dose: 650 mg Documented by: Amlodipine Besylate (Amlodipine Besylate 5 Mg Tablet) 5 mg PO DAILY [facility]; Protocol Last Admin: 08/09/21 09:12 Dose: 5 mg Documented by: Ascorbic Acid (Ascorbic Acid 500 Mg Tablet) 500 mg PO DAILY [facility] Last Admin: 08/09/21 09:01 Dose: Not Given Documented by: Dextrose (Dextrose 50 % 25 Gm/50 Ml Syringe) 25 gm IVPUSH Q15M PRN PRN Reason: per Hypoglycemia Standing Ord. Last Admin: 07/18/21 01:43 Dose: 25 gm Documented by: Docusate Sodium (Docusate Sodium 100 Mg Capsule) 100 mg PO BEDTIME [facility] Last Admin: 08/08/21 21:38 Dose: 100 mg Documented by: Enoxaparin Sodium (Enoxaparin Sodium 40 Mg/0.4 Ml Syringe) 40 mg SUBCUT Q24H [facility] Last Admin: 08/09/21 07:42 Dose: Not Given Documented by: Fluvoxamine Maleate (Fluvoxamine Maleate 50 Mg Tablet) 100 mg PO BID [facility] Last Admin: 08/09/21 09:12 Dose: 100 mg Documented by: Insulin Glargine (Insulin Glargine,Hum.Rec.Anlog 100 Unit/Ml 10 Ml Vial) 50 unit SUBCUT BID [facility] Last Admin: 07/17/21 21:06 Dose: Not Given Documented by: Insulin Human Lispro (Insulin Lispro 100 Unit/Ml 3 Ml Vial) 0 unit SUBCUT QIDACHS [facility]; Protocol Last Admin: 08/09/21 07:42 Dose: Not Given Documented by: Lactic Acid (Ammonium Lactate 12 % Lotion 226 Gm Bottle) 1 appl TOPICAL BID [facility]; Protocol Last Admin: 08/09/21 09:12 Dose: 1 appl Documented by: Lisinopril (Lisinopril 10 Mg Tablet) 10 mg PO DAILY [facility]; Protocol Last Admin: 08/09/21 09:12 Dose: 10 mg Documented by: Methotrexate (Methotrexate Sodium 2.5 Mg Tablet) 25 mg PO Tu@1800 [facility] Last Admin: 08/07/21 17:14 Dose: 25 mg Documented by: Morphine Sulfate (Morphine Sulfate 2 Mg/Ml Cartridge) 2 mg IVPUSH Q4H PRN; Protocol PRN Reason: Pain, Severe (Pain Scale 7-10) Last Admin: 08/09/21 09:12 Dose: 2 mg Documented by: Omeprazole (Omeprazole 20 Mg/10 Ml Susp.Recon) 40 mg PO DAILY@0630 [facility] Last Admin: 08/09/21 06:07 Dose: 40 mg Documented by: Polyethylene Glycol (Polyethylene Glycol 3350 17 Gm Powd.Pack) 17 gm PO DAILY [facility] Last Admin: 08/09/21 09:01 Dose: Not Given Documented by: Prednisone (Prednisone 5 Mg Tablet) 5 mg PO DAILY [facility] Last Admin: 08/09/21 09:12 Dose: 5 mg Documented by: Sodium Chloride (0.9 % Sodium Chloride Flush 3 Ml Syringe) 3 ml IVFLUSH QSHIFT [facility] Last Admin: 08/09/21 09:12 Dose: 3 ml Documented by: Tamsulosin HCl (Tamsulosin Hcl 0.4 Mg Capsule) 0.4 mg PO BEDTIME [facility] Last Admin: 08/08/21 21:38 Dose: 0.4 mg Documented by: Thiamine HCl (Thiamine Hcl 100 Mg Tablet) 200 mg PO BID [facility] Last Admin: 08/09/21 09:01 Dose: Not Given Documented by: Trazodone HCl (Trazodone Hcl 25 Mg Halftab) 25 mg PO BEDTIME PRN PRN Reason: Insomnia Last Admin: 08/08/21 21:39 Dose: 25 mg Documented by: Home Medications Medication Instructions Recorded Confirmed Last Taken Type glyburide 5 mg tablet 5 mg PO BID 03/22/20 06/15/21 05/14/21 History lisinopril 5 mg tablet 5 mg PO DAILY 03/22/20 06/15/21 05/14/21 History mirtazapine 30 mg tablet 30 mg PO BEDTIME 03/22/20 06/15/21 05/14/21 History folic acid 1 mg tablet 1 mg PO DAILY 02/14/21 06/15/21 05/14/21 History melatonin 5 mg tablet 1 tab PO BEDTIME PRN 02/14/21 06/15/21 05/14/21 History paroxetine HCl 40 mg tablet 40 mg PO DAILY 02/14/21 06/15/21 06/01/21 09:00 History hydroxyzine pamoate 50 mg capsule 100 mg PO BEDTIME PRN 04/02/21 06/15/21 05/14/21 History ustekinumab 90 mg/mL subcutaneous 90 mg SUBCUT Q8W 04/02/21 06/15/21 05/13/21 History syringe (Stelara) methotrexate sodium 2.5 mg tablet 25 mg PO Q7D 05/15/21 06/15/21 05/08/21 History prednisone 10 mg tablet 4 tab PO DAILY 06/02/21 06/15/21 Unknown History doxycycline monohydrate 100 mg 1 tab PO BID 06/15/21 06/15/21 Unknown History tablet Exam Exam Date and Time: August 09, 2021 1040 Height,Weight and Vital Signs: Height 6 ft 3 in Weight 97.2 kg Last Vital Signs Temp 97.5 F 08/09/21 09:31 Pulse 108 H 08/09/21 09:31 Resp 22 H 08/09/21 09:31 BP 126/64 08/09/21 09:31 Pulse Ox 92 08/09/21 09:31 Oxygen Flow Rate 10 06/15/21 00:21 Pertinent Lab Results Pertinent Lab Results: Laboratory Tests 06/15/21 06/15/21 06/15/21 00:50 00:51 00:51 WBC 4.2 L RBC 3.55 L Hgb 8.8 L Hct 30.0 L MCV 84.5 MCH 24.8 L MCHC 29.3 L RDW 17.8 H Plt Count 214 D MPV 9.4 Immature Gran % (Auto) 0.5 H Neut % (Auto) 90.1 H Lymph % (Auto) 7.3 L Caroline % (Auto) 2.1 Eos % (Auto) 0.0 Baso % (Auto) 0.0 Lymph # (Auto) 0.3 L Caroline # (Auto) 0.1 Eos # (Auto) 0.0 Baso # (Auto) 0.0 Abs Immat Gran (auto) 0.02 Absolute Neuts (auto) 3.8 Absolute Nucleated RBC 0.000 Nucleated RBC % (auto) 0.0 Neutrophils % (Manual) Band Neutrophils % Lymphocytes % (Manual) Monocytes % (Manual) Eosinophils % (Manual) Metamyelocytes % Myelocytes % Promyelocytes % Abs Neuts (Manual) Lymphocytes # (Manual) Monocytes # (Manual) Eosinophils # (Manual) Metamyelocytes # Myelocytes # Promyelocytes # Smudge Cells Toxic Vacuolation Platelet Estimate Large Platelets Plt Morphology Comment RBC Morphology Polychromasia Hypochromasia Basophilic Stippling Microcytosis Macrocytosis Target Cells Tear Drop Cells Ovalocytes Esthela Cells Acanthocytes (Spur) Smear Tech's Comments VERIFIED Smear Path Review PT INR APTT D-Dimer High Sensitivty O2 Saturation ABG pH at Pt Temp ABG pCO2 at Pt Temp ABG pO2 at Pt Temp ABG HCO3 ABG Base Excess (Actual) VBG pH VBG pCO2 VBG pO2 VBG HCO3 VBG O2 Saturation VBG Base Excess Sodium 142 Potassium 3.9 Chloride 106 Carbon Dioxide 25 Anion Gap 15 BUN 21 H Creatinine 1.06 Estim Creat Clear Calc 98.8 Estimated GFR > 60 POC Glucose Random Glucose 304 H D Fasting Glucose Estimat Average Glucose Hemoglobin A1c % Lactic Acid Lactic Acid F/U @ 2Hr Lactic Acid F/U @ 4Hr Calcium 8.4 D Phosphorus Magnesium Ferritin 357 H Total Bilirubin 0.3 Direct Bilirubin AST 16 ALT 19 Alkaline Phosphatase 87 Lactate Dehydrogenase 369 H Total Creatine Kinase Troponin I High Sens C-Reactive Protein 10.08 H B-Natriuretic Peptide Total Protein 6.2 L Albumin 3.4 L Procalcitonin TSH 0.37 Urine Color Urine Appearance Urine pH Ur Specific Riparius Urine Protein Urine Glucose (UA) Urine Ketones Urine Blood Urine Nitrite Ur Leukocyte Esterase Urine RBC Urine WBC Urine WBC Clumps Ur Squamous Epith Cells Ur Renal Epithelial Cell Uric Acid Crystals Amorphous Sediment Urine Bacteria Urine Mucus Stool Occult Blood Urine Opiates Screen Urine Fentanyl Screen Ur Barbiturates Screen Ur Phencyclidine Scrn Ur Amphetamines Screen U Benzodiazepines Scrn Urine Cocaine Screen U Marijuana (THC) Screen C. difficile Tox B Gene COVID-19 (KRISTOPHER) COVID-19 Clin Com Blood Type O Positive Antibody Screen NEGATIVE Crossmatch 06/15/21 06/15/21 06/15/21 00:51 00:51 00:51 WBC RBC Hgb Hct MCV MCH MCHC RDW Plt Count MPV Immature Gran % (Auto) Neut % (Auto) Lymph % (Auto) Caroline % (Auto) Eos % (Auto) Baso % (Auto) Lymph # (Auto) Caroline # (Auto) Eos # (Auto) Baso # (Auto) Abs Immat Gran (auto) Absolute Neuts (auto) Absolute Nucleated RBC Nucleated RBC % (auto) Neutrophils % (Manual) Band Neutrophils % Lymphocytes % (Manual) Monocytes % (Manual) Eosinophils % (Manual) Metamyelocytes % Myelocytes % Promyelocytes % Abs Neuts (Manual) Lymphocytes # (Manual) Monocytes # (Manual) Eosinophils # (Manual) Metamyelocytes # Myelocytes # Promyelocytes # Smudge Cells Toxic Vacuolation Platelet Estimate Large Platelets Plt Morphology Comment RBC Morphology Polychromasia Hypochromasia Basophilic Stippling Microcytosis Macrocytosis Target Cells Tear Drop Cells Ovalocytes Esthela Cells Acanthocytes (Spur) Smear Tech's Comments Smear Path Review PT 12.7 INR 1.1 APTT D-Dimer High Sensitivty 338 O2 Saturation ABG pH at Pt Temp ABG pCO2 at Pt Temp ABG pO2 at Pt Temp ABG HCO3 ABG Base Excess (Actual) VBG pH VBG pCO2 VBG pO2 VBG HCO3 VBG O2 Saturation VBG Base Excess Sodium Potassium Chloride Carbon Dioxide Anion Gap BUN Creatinine Estim Creat Clear Calc Estimated GFR POC Glucose Random Glucose Fasting Glucose Estimat Average Glucose Hemoglobin A1c % Lactic Acid Lactic Acid F/U @ 2Hr Lactic Acid F/U @ 4Hr Calcium Phosphorus Magnesium Ferritin Total Bilirubin Direct Bilirubin AST ALT Alkaline Phosphatase Lactate Dehydrogenase Total Creatine Kinase Troponin I High Sens C-Reactive Protein B-Natriuretic Peptide 148 H Total Protein Albumin Procalcitonin TSH Urine Color Urine Appearance Urine pH Ur Specific Riparius Urine Protein Urine Glucose (UA) Urine Ketones Urine Blood Urine Nitrite Ur Leukocyte Esterase Urine RBC Urine WBC Urine WBC Clumps Ur Squamous Epith Cells Ur Renal Epithelial Cell Uric Acid Crystals Amorphous Sediment Urine Bacteria Urine Mucus Stool Occult Blood Urine Opiates Screen Urine Fentanyl Screen Ur Barbiturates Screen Ur Phencyclidine Scrn Ur Amphetamines Screen U Benzodiazepines Scrn Urine Cocaine Screen U Marijuana (THC) Screen C. difficile Tox B Gene COVID-19 (KRISTOPHER) Positive A COVID-19 Clin Com See Note Blood Type Antibody Screen Crossmatch 06/15/21 06/15/21 06/15/21 00:51 00:51 00:51 WBC RBC Hgb Hct MCV MCH MCHC RDW Plt Count MPV Immature Gran % (Auto) Neut % (Auto) Lymph % (Auto) Caroline % (Auto) Eos % (Auto) Baso % (Auto) Lymph # (Auto) Caroline # (Auto) Eos # (Auto) Baso # (Auto) Abs Immat Gran (auto) Absolute Neuts (auto) Absolute Nucleated RBC Nucleated RBC % (auto) Neutrophils % (Manual) Band Neutrophils % Lymphocytes % (Manual) Monocytes % (Manual) Eosinophils % (Manual) Metamyelocytes % Myelocytes % Promyelocytes % Abs Neuts (Manual) Lymphocytes # (Manual) Monocytes # (Manual) Eosinophils # (Manual) Metamyelocytes # Myelocytes # Promyelocytes # Smudge Cells Toxic Vacuolation Platelet Estimate Large Platelets Plt Morphology Comment RBC Morphology Polychromasia Hypochromasia Basophilic Stippling Microcytosis Macrocytosis Target Cells Tear Drop Cells Ovalocytes Drake Cells Acanthocytes (Spur) Smear Tech's Comments Smear Path Review PT INR APTT D-Dimer High Sensitivty O2 Saturation ABG pH at Pt Temp ABG pCO2 at Pt Temp ABG pO2 at Pt Temp ABG HCO3 ABG Base Excess (Actual) VBG pH VBG pCO2 VBG pO2 VBG HCO3 VBG O2 Saturation VBG Base Excess Sodium Potassium Chloride Carbon Dioxide Anion Gap BUN Creatinine Estim Creat Clear Calc Estimated GFR POC Glucose Random Glucose Fasting Glucose Estimat Average Glucose Hemoglobin A1c % Lactic Acid 2.4 H* Lactic Acid F/U @ 2Hr Lactic Acid F/U @ 4Hr Calcium Phosphorus Magnesium Ferritin Total Bilirubin Direct Bilirubin AST ALT Alkaline Phosphatase Lactate Dehydrogenase Total Creatine Kinase Troponin I High Sens C-Reactive Protein B-Natriuretic Peptide Total Protein Albumin Procalcitonin 0.24 TSH Urine Color Urine Appearance Urine pH Ur Specific Riparius Urine Protein Urine Glucose (UA) Urine Ketones Urine Blood Urine Nitrite Ur Leukocyte Esterase Urine RBC Urine WBC Urine WBC Clumps Ur Squamous Epith Cells Ur Renal Epithelial Cell Uric Acid Crystals Amorphous Sediment Urine Bacteria Urine Mucus Stool Occult Blood POSITIVE Urine Opiates Screen Urine Fentanyl Screen Ur Barbiturates Screen Ur Phencyclidine Scrn Ur Amphetamines Screen U Benzodiazepines Scrn Urine Cocaine Screen U Marijuana (THC) Screen C. difficile Tox B Gene COVID-19 (KRISTOPHER) COVID-19 Clin Com Blood Type Antibody Screen Crossmatch 06/15/21 06/15/21 06/15/21 00:53 03:17 03:23 WBC RBC Hgb Hct MCV MCH MCHC RDW Plt Count MPV Immature Gran % (Auto) Neut % (Auto) Lymph % (Auto) Caroline % (Auto) Eos % (Auto) Baso % (Auto) Lymph # (Auto) Caroline # (Auto) Eos # (Auto) Baso # (Auto) Abs Immat Gran (auto) Absolute Neuts (auto) Absolute Nucleated RBC Nucleated RBC % (auto) Neutrophils % (Manual) Band Neutrophils % Lymphocytes % (Manual) Monocytes % (Manual) Eosinophils % (Manual) Metamyelocytes % Myelocytes % Promyelocytes % Abs Neuts (Manual) Lymphocytes # (Manual) Monocytes # (Manual) Eosinophils # (Manual) Metamyelocytes # Myelocytes # Promyelocytes # Smudge Cells Toxic Vacuolation Platelet Estimate Large Platelets Plt Morphology Comment RBC Morphology Polychromasia Hypochromasia Basophilic Stippling Microcytosis Macrocytosis Target Cells Tear Drop Cells Ovalocytes Drake Cells Acanthocytes (Spur) Smear Tech's Comments Smear Path Review PT INR APTT D-Dimer High Sensitivty O2 Saturation ABG pH at Pt Temp ABG pCO2 at Pt Temp ABG pO2 at Pt Temp ABG HCO3 ABG Base Excess (Actual) VBG pH 7.46 H VBG pCO2 34 VBG pO2 64 VBG HCO3 24 VBG O2 Saturation 88.0 VBG Base Excess 1.3 Sodium Potassium Chloride Carbon Dioxide Anion Gap BUN Creatinine Estim Creat Clear Calc Estimated GFR POC Glucose Random Glucose Fasting Glucose Estimat Average Glucose Hemoglobin A1c % Lactic Acid Lactic Acid F/U @ 2Hr 2.6 H* Lactic Acid F/U @ 4Hr Calcium Phosphorus Magnesium Ferritin Total Bilirubin Direct Bilirubin AST ALT Alkaline Phosphatase Lactate Dehydrogenase Total Creatine Kinase Troponin I High Sens C-Reactive Protein B-Natriuretic Peptide Total Protein Albumin Procalcitonin TSH Urine Color YELLOW Urine Appearance CLEAR Urine pH 6.0 Ur Specific Riparius 1.020 Urine Protein NEG Urine Glucose (UA) 250 H Urine Ketones NEG Urine Blood 2+ H Urine Nitrite NEG Ur Leukocyte Esterase NEG Urine RBC 10-14 H Urine WBC 1-4 Urine WBC Clumps Ur Squamous Epith Cells 1+ Ur Renal Epithelial Cell Uric Acid Crystals Amorphous Sediment Urine Bacteria 1+ Urine Mucus 1+ Stool Occult Blood Urine Opiates Screen Urine Fentanyl Screen Ur Barbiturates Screen Ur Phencyclidine Scrn Ur Amphetamines Screen U Benzodiazepines Scrn Urine Cocaine Screen U Marijuana (THC) Screen C. difficile Tox B Gene COVID-19 (KRISTOPHER) COVID-19 Clin Com Blood Type Antibody Screen Crossmatch 06/15/21 06/15/21 06/15/21 07:38 17:06 20:23 WBC RBC Hgb Hct MCV MCH MCHC RDW Plt Count MPV Immature Gran % (Auto) Neut % (Auto) Lymph % (Auto) Caroline % (Auto) Eos % (Auto) Baso % (Auto) Lymph # (Auto) Caroline # (Auto) Eos # (Auto) Baso # (Auto) Abs Immat Gran (auto) Absolute Neuts (auto) Absolute Nucleated RBC Nucleated RBC % (auto) Neutrophils % (Manual) Band Neutrophils % Lymphocytes % (Manual) Monocytes % (Manual) Eosinophils % (Manual) Metamyelocytes % Myelocytes % Promyelocytes % Abs Neuts (Manual) Lymphocytes # (Manual) Monocytes # (Manual) Eosinophils # (Manual) Metamyelocytes # Myelocytes # Promyelocytes # Smudge Cells Toxic Vacuolation Platelet Estimate Large Platelets Plt Morphology Comment RBC Morphology Polychromasia Hypochromasia Basophilic Stippling Microcytosis Macrocytosis Target Cells Tear Drop Cells Ovalocytes Drake Cells Acanthocytes (Spur) Smear Tech's Comments Smear Path Review PT INR APTT D-Dimer High Sensitivty O2 Saturation ABG pH at Pt Temp ABG pCO2 at Pt Temp ABG pO2 at Pt Temp ABG HCO3 ABG Base Excess (Actual) VBG pH VBG pCO2 VBG pO2 VBG HCO3 VBG O2 Saturation VBG Base Excess Sodium Potassium Chloride Carbon Dioxide Anion Gap BUN Creatinine Estim Creat Clear Calc Estimated GFR POC Glucose 134 H 188 H Random Glucose Fasting Glucose Estimat Average Glucose Hemoglobin A1c % Lactic Acid Lactic Acid F/U @ 2Hr Lactic Acid F/U @ 4Hr 2.1 H* Calcium Phosphorus Magnesium Ferritin Total Bilirubin Direct Bilirubin AST ALT Alkaline Phosphatase Lactate Dehydrogenase Total Creatine Kinase Troponin I High Sens C-Reactive Protein B-Natriuretic Peptide Total Protein Albumin Procalcitonin TSH Urine Color Urine Appearance Urine pH Ur Specific Riparius Urine Protein Urine Glucose (UA) Urine Ketones Urine Blood Urine Nitrite Ur Leukocyte Esterase Urine RBC Urine WBC Urine WBC Clumps Ur Squamous Epith Cells Ur Renal Epithelial Cell Uric Acid Crystals Amorphous Sediment Urine Bacteria Urine Mucus Stool Occult Blood Urine Opiates Screen Urine Fentanyl Screen Ur Barbiturates Screen Ur Phencyclidine Scrn Ur Amphetamines Screen U Benzodiazepines Scrn Urine Cocaine Screen U Marijuana (THC) Screen C. difficile Tox B Gene COVID-19 (KRISTOPHER) COVID-19 Clin Com Blood Type Antibody Screen Crossmatch 06/16/21 06/16/21 06/16/21 06:22 06:22 08:31 WBC 8.9 RBC 4.20 L Hgb 10.2 L Hct 35.3 L MCV 84.0 MCH 24.3 L MCHC 28.9 L RDW 17.9 H Plt Count 170 MPV 10.7 Immature Gran % (Auto) 0.3 Neut % (Auto) 88.2 H Lymph % (Auto) 9.5 L Caroline % (Auto) 2.0 Eos % (Auto) 0.0 Baso % (Auto) 0.0 Lymph # (Auto) 0.8 L Caroline # (Auto) 0.2 Eos # (Auto) 0.0 Baso # (Auto) 0.0 Abs Immat Gran (auto) 0.03 Absolute Neuts (auto) 7.8 Absolute Nucleated RBC 0.000 Nucleated RBC % (auto) 0.0 Neutrophils % (Manual) Band Neutrophils % Lymphocytes % (Manual) Monocytes % (Manual) Eosinophils % (Manual) Metamyelocytes % Myelocytes % Promyelocytes % Abs Neuts (Manual) Lymphocytes # (Manual) Monocytes # (Manual) Eosinophils # (Manual) Metamyelocytes # Myelocytes # Promyelocytes # Smudge Cells Toxic Vacuolation Platelet Estimate Large Platelets Plt Morphology Comment RBC Morphology Polychromasia Hypochromasia Basophilic Stippling Microcytosis Macrocytosis Target Cells Tear Drop Cells Ovalocytes Drake Cells Acanthocytes (Spur) Smear Tech's Comments Smear Path Review PT INR APTT D-Dimer High Sensitivty O2 Saturation ABG pH at Pt Temp ABG pCO2 at Pt Temp ABG pO2 at Pt Temp ABG HCO3 ABG Base Excess (Actual) VBG pH VBG pCO2 VBG pO2 VBG HCO3 VBG O2 Saturation VBG Base Excess Sodium 138 Potassium 4.0 Chloride 100 Carbon Dioxide 24 Anion Gap 18 BUN 16 Creatinine 0.83 Estim Creat Clear Calc 126.2 Estimated GFR > 60 POC Glucose 95 Random Glucose 95 D Fasting Glucose Estimat Average Glucose Hemoglobin A1c % Lactic Acid Lactic Acid F/U @ 2Hr Lactic Acid F/U @ 4Hr Calcium 8.7 Phosphorus Magnesium Ferritin Total Bilirubin Direct Bilirubin AST ALT Alkaline Phosphatase Lactate Dehydrogenase Total Creatine Kinase Troponin I High Sens C-Reactive Protein B-Natriuretic Peptide Total Protein Albumin Procalcitonin TSH Urine Color Urine Appearance Urine pH Ur Specific Riparius Urine Protein Urine Glucose (UA) Urine Ketones Urine Blood Urine Nitrite Ur Leukocyte Esterase Urine RBC Urine WBC Urine WBC Clumps Ur Squamous Epith Cells Ur Renal Epithelial Cell Uric Acid Crystals Amorphous Sediment Urine Bacteria Urine Mucus Stool Occult Blood Urine Opiates Screen Urine Fentanyl Screen Ur Barbiturates Screen Ur Phencyclidine Scrn Ur Amphetamines Screen U Benzodiazepines Scrn Urine Cocaine Screen U Marijuana (THC) Screen C. difficile Tox B Gene COVID-19 (KRISTOPHER) COVID-19 Clin Com Blood Type Antibody Screen Crossmatch 06/16/21 06/16/21 06/16/21 11:20 16:54 20:54 WBC RBC Hgb Hct MCV MCH MCHC RDW Plt Count MPV Immature Gran % (Auto) Neut % (Auto) Lymph % (Auto) Caroline % (Auto) Eos % (Auto) Baso % (Auto) Lymph # (Auto) Caroline # (Auto) Eos # (Auto) Baso # (Auto) Abs Immat Gran (auto) Absolute Neuts (auto) Absolute Nucleated RBC Nucleated RBC % (auto) Neutrophils % (Manual) Band Neutrophils % Lymphocytes % (Manual) Monocytes % (Manual) Eosinophils % (Manual) Metamyelocytes % Myelocytes % Promyelocytes % Abs Neuts (Manual) Lymphocytes # (Manual) Monocytes # (Manual) Eosinophils # (Manual) Metamyelocytes # Myelocytes # Promyelocytes # Smudge Cells Toxic Vacuolation Platelet Estimate Large Platelets Plt Morphology Comment RBC Morphology Polychromasia Hypochromasia Basophilic Stippling Microcytosis Macrocytosis Target Cells Tear Drop Cells Ovalocytes Esthela Cells Acanthocytes (Spur) Smear Tech's Comments Smear Path Review PT INR APTT D-Dimer High Sensitivty O2 Saturation ABG pH at Pt Temp ABG pCO2 at Pt Temp ABG pO2 at Pt Temp ABG HCO3 ABG Base Excess (Actual) VBG pH VBG pCO2 VBG pO2 VBG HCO3 VBG O2 Saturation VBG Base Excess Sodium Potassium Chloride Carbon Dioxide Anion Gap BUN Creatinine Estim Creat Clear Calc Estimated GFR POC Glucose 112 157 H 162 H Random Glucose Fasting Glucose Estimat Average Glucose Hemoglobin A1c % Lactic Acid Lactic Acid F/U @ 2Hr Lactic Acid F/U @ 4Hr Calcium Phosphorus Magnesium Ferritin Total Bilirubin Direct Bilirubin AST ALT Alkaline Phosphatase Lactate Dehydrogenase Total Creatine Kinase Troponin I High Sens C-Reactive Protein B-Natriuretic Peptide Total Protein Albumin Procalcitonin TSH Urine Color Urine Appearance Urine pH Ur Specific Riparius Urine Protein Urine Glucose (UA) Urine Ketones Urine Blood Urine Nitrite Ur Leukocyte Esterase Urine RBC Urine WBC Urine WBC Clumps Ur Squamous Epith Cells Ur Renal Epithelial Cell Uric Acid Crystals Amorphous Sediment Urine Bacteria Urine Mucus Stool Occult Blood Urine Opiates Screen Urine Fentanyl Screen Ur Barbiturates Screen Ur Phencyclidine Scrn Ur Amphetamines Screen U Benzodiazepines Scrn Urine Cocaine Screen U Marijuana (THC) Screen C. difficile Tox B Gene COVID-19 (KRISTOPHER) COVID-19 Clin Com Blood Type Antibody Screen Crossmatch 06/17/21 06/17/21 06/17/21 07:37 10:49 16:47 WBC RBC Hgb Hct MCV MCH MCHC RDW Plt Count MPV Immature Gran % (Auto) Neut % (Auto) Lymph % (Auto) Caroline % (Auto) Eos % (Auto) Baso % (Auto) Lymph # (Auto) Caroline # (Auto) Eos # (Auto) Baso # (Auto) Abs Immat Gran (auto) Absolute Neuts (auto) Absolute Nucleated RBC Nucleated RBC % (auto) Neutrophils % (Manual) Band Neutrophils % Lymphocytes % (Manual) Monocytes % (Manual) Eosinophils % (Manual) Metamyelocytes % Myelocytes % Promyelocytes % Abs Neuts (Manual) Lymphocytes # (Manual) Monocytes # (Manual) Eosinophils # (Manual) Metamyelocytes # Myelocytes # Promyelocytes # Smudge Cells Toxic Vacuolation Platelet Estimate Large Platelets Plt Morphology Comment RBC Morphology Polychromasia Hypochromasia Basophilic Stippling Microcytosis Macrocytosis Target Cells Tear Drop Cells Ovalocytes Esthela Cells Acanthocytes (Spur) Smear Tech's Comments Smear Path Review PT INR APTT D-Dimer High Sensitivty O2 Saturation ABG pH at Pt Temp ABG pCO2 at Pt Temp ABG pO2 at Pt Temp ABG HCO3 ABG Base Excess (Actual) VBG pH VBG pCO2 VBG pO2 VBG HCO3 VBG O2 Saturation VBG Base Excess Sodium Potassium Chloride Carbon Dioxide Anion Gap BUN Creatinine Estim Creat Clear Calc Estimated GFR POC Glucose 83 222 H 257 H Random Glucose Fasting Glucose Estimat Average Glucose Hemoglobin A1c % Lactic Acid Lactic Acid F/U @ 2Hr Lactic Acid F/U @ 4Hr Calcium Phosphorus Magnesium Ferritin Total Bilirubin Direct Bilirubin AST ALT Alkaline Phosphatase Lactate Dehydrogenase Total Creatine Kinase Troponin I High Sens C-Reactive Protein B-Natriuretic Peptide Total Protein Albumin Procalcitonin TSH Urine Color Urine Appearance Urine pH Ur Specific Riparius Urine Protein Urine Glucose (UA) Urine Ketones Urine Blood Urine Nitrite Ur Leukocyte Esterase Urine RBC Urine WBC Urine WBC Clumps Ur Squamous Epith Cells Ur Renal Epithelial Cell Uric Acid Crystals Amorphous Sediment Urine Bacteria Urine Mucus Stool Occult Blood Urine Opiates Screen Urine Fentanyl Screen Ur Barbiturates Screen Ur Phencyclidine Scrn Ur Amphetamines Screen U Benzodiazepines Scrn Urine Cocaine Screen U Marijuana (THC) Screen C. difficile Tox B Gene COVID-19 (KRISTOPHER) COVID-19 Clin Com Blood Type Antibody Screen Crossmatch 06/17/21 06/18/21 06/18/21 20:55 06:28 06:28 WBC 10.8 RBC 4.28 L Hgb 10.3 L Hct 35.7 L MCV 83.4 MCH 24.1 L MCHC 28.9 L RDW 17.5 H Plt Count 207 MPV 10.4 Immature Gran % (Auto) Neut % (Auto) Lymph % (Auto) Caroline % (Auto) Eos % (Auto) Baso % (Auto) Lymph # (Auto) Caroline # (Auto) Eos # (Auto) Baso # (Auto) Abs Immat Gran (auto) Absolute Neuts (auto) Absolute Nucleated RBC 0.000 Nucleated RBC % (auto) 0.0 Neutrophils % (Manual) Band Neutrophils % Lymphocytes % (Manual) Monocytes % (Manual) Eosinophils % (Manual) Metamyelocytes % Myelocytes % Promyelocytes % Abs Neuts (Manual) Lymphocytes # (Manual) Monocytes # (Manual) Eosinophils # (Manual) Metamyelocytes # Myelocytes # Promyelocytes # Smudge Cells Toxic Vacuolation Platelet Estimate Large Platelets Plt Morphology Comment RBC Morphology Polychromasia Hypochromasia Basophilic Stippling Microcytosis Macrocytosis Target Cells Tear Drop Cells Ovalocytes Esthela Cells Acanthocytes (Spur) Smear Tech's Comments Smear Path Review PT INR APTT D-Dimer High Sensitivty O2 Saturation ABG pH at Pt Temp ABG pCO2 at Pt Temp ABG pO2 at Pt Temp ABG HCO3 ABG Base Excess (Actual) VBG pH VBG pCO2 VBG pO2 VBG HCO3 VBG O2 Saturation VBG Base Excess Sodium 142 Potassium 4.5 Chloride 102 Carbon Dioxide 28 Anion Gap 17 BUN 24 H Creatinine 0.74 Estim Creat Clear Calc 141.6 Estimated GFR > 60 POC Glucose 174 H Random Glucose 117 H Fasting Glucose Estimat Average Glucose Hemoglobin A1c % Lactic Acid Lactic Acid F/U @ 2Hr Lactic Acid F/U @ 4Hr Calcium 9.3 D Phosphorus Magnesium Ferritin Total Bilirubin Direct Bilirubin AST ALT Alkaline Phosphatase Lactate Dehydrogenase Total Creatine Kinase Troponin I High Sens C-Reactive Protein B-Natriuretic Peptide Total Protein Albumin Procalcitonin TSH Urine Color Urine Appearance Urine pH Ur Specific Riparius Urine Protein Urine Glucose (UA) Urine Ketones Urine Blood Urine Nitrite Ur Leukocyte Esterase Urine RBC Urine WBC Urine WBC Clumps Ur Squamous Epith Cells Ur Renal Epithelial Cell Uric Acid Crystals Amorphous Sediment Urine Bacteria Urine Mucus Stool Occult Blood Urine Opiates Screen Urine Fentanyl Screen Ur Barbiturates Screen Ur Phencyclidine Scrn Ur Amphetamines Screen U Benzodiazepines Scrn Urine Cocaine Screen U Marijuana (THC) Screen C. difficile Tox B Gene COVID-19 (KRISTOPHER) COVID-19 Clin Com Blood Type Antibody Screen Crossmatch 06/18/21 06/18/21 06/18/21 06:28 07:30 11:53 WBC RBC Hgb Hct MCV MCH MCHC RDW Plt Count MPV Immature Gran % (Auto) Neut % (Auto) Lymph % (Auto) Caroline % (Auto) Eos % (Auto) Baso % (Auto) Lymph # (Auto) Caroline # (Auto) Eos # (Auto) Baso # (Auto) Abs Immat Gran (auto) Absolute Neuts (auto) Absolute Nucleated RBC Nucleated RBC % (auto) Neutrophils % (Manual) Band Neutrophils % Lymphocytes % (Manual) Monocytes % (Manual) Eosinophils % (Manual) Metamyelocytes % Myelocytes % Promyelocytes % Abs Neuts (Manual) Lymphocytes # (Manual) Monocytes # (Manual) Eosinophils # (Manual) Metamyelocytes # Myelocytes # Promyelocytes # Smudge Cells Toxic Vacuolation Platelet Estimate Large Platelets Plt Morphology Comment RBC Morphology Polychromasia Hypochromasia Basophilic Stippling Microcytosis Macrocytosis Target Cells Tear Drop Cells Ovalocytes Esthela Cells Acanthocytes (Spur) Smear Tech's Comments Smear Path Review PT INR APTT D-Dimer High Sensitivty O2 Saturation ABG pH at Pt Temp ABG pCO2 at Pt Temp ABG pO2 at Pt Temp ABG HCO3 ABG Base Excess (Actual) VBG pH VBG pCO2 VBG pO2 VBG HCO3 VBG O2 Saturation VBG Base Excess Sodium Potassium Chloride Carbon Dioxide Anion Gap BUN Creatinine Estim Creat Clear Calc Estimated GFR POC Glucose 106 189 H Random Glucose Fasting Glucose Estimat Average Glucose Hemoglobin A1c % Lactic Acid Lactic Acid F/U @ 2Hr Lactic Acid F/U @ 4Hr Calcium Phosphorus Magnesium Ferritin 437 H Total Bilirubin Direct Bilirubin AST ALT Alkaline Phosphatase Lactate Dehydrogenase 670 H Total Creatine Kinase Troponin I High Sens C-Reactive Protein B-Natriuretic Peptide Total Protein Albumin Procalcitonin TSH Urine Color Urine Appearance Urine pH Ur Specific Riparius Urine Protein Urine Glucose (UA) Urine Ketones Urine Blood Urine Nitrite Ur Leukocyte Esterase Urine RBC Urine WBC Urine WBC Clumps Ur Squamous Epith Cells Ur Renal Epithelial Cell Uric Acid Crystals Amorphous Sediment Urine Bacteria Urine Mucus Stool Occult Blood Urine Opiates Screen Urine Fentanyl Screen Ur Barbiturates Screen Ur Phencyclidine Scrn Ur Amphetamines Screen U Benzodiazepines Scrn Urine Cocaine Screen U Marijuana (THC) Screen C. difficile Tox B Gene COVID-19 (KRISTOPHER) COVID-19 Clin Com Blood Type Antibody Screen Crossmatch 06/18/21 06/18/21 06/19/21 16:26 20:35 07:39 WBC RBC Hgb Hct MCV MCH MCHC RDW Plt Count MPV Immature Gran % (Auto) Neut % (Auto) Lymph % (Auto) Caroline % (Auto) Eos % (Auto) Baso % (Auto) Lymph # (Auto) Caroline # (Auto) Eos # (Auto) Baso # (Auto) Abs Immat Gran (auto) Absolute Neuts (auto) Absolute Nucleated RBC Nucleated RBC % (auto) Neutrophils % (Manual) Band Neutrophils % Lymphocytes % (Manual) Monocytes % (Manual) Eosinophils % (Manual) Metamyelocytes % Myelocytes % Promyelocytes % Abs Neuts (Manual) Lymphocytes # (Manual) Monocytes # (Manual) Eosinophils # (Manual) Metamyelocytes # Myelocytes # Promyelocytes # Smudge Cells Toxic Vacuolation Platelet Estimate Large Platelets Plt Morphology Comment RBC Morphology Polychromasia Hypochromasia Basophilic Stippling Microcytosis Macrocytosis Target Cells Tear Drop Cells Ovalocytes Esthela Cells Acanthocytes (Spur) Smear Tech's Comments Smear Path Review PT INR APTT D-Dimer High Sensitivty O2 Saturation ABG pH at Pt Temp ABG pCO2 at Pt Temp ABG pO2 at Pt Temp ABG HCO3 ABG Base Excess (Actual) VBG pH VBG pCO2 VBG pO2 VBG HCO3 VBG O2 Saturation VBG Base Excess Sodium Potassium Chloride Carbon Dioxide Anion Gap BUN Creatinine Estim Creat Clear Calc Estimated GFR POC Glucose 263 H 221 H 130 H Random Glucose Fasting Glucose Estimat Average Glucose Hemoglobin A1c % Lactic Acid Lactic Acid F/U @ 2Hr Lactic Acid F/U @ 4Hr Calcium Phosphorus Magnesium Ferritin Total Bilirubin Direct Bilirubin AST ALT Alkaline Phosphatase Lactate Dehydrogenase Total Creatine Kinase Troponin I High Sens C-Reactive Protein B-Natriuretic Peptide Total Protein Albumin Procalcitonin TSH Urine Color Urine Appearance Urine pH Ur Specific Riparius Urine Protein Urine Glucose (UA) Urine Ketones Urine Blood Urine Nitrite Ur Leukocyte Esterase Urine RBC Urine WBC Urine WBC Clumps Ur Squamous Epith Cells Ur Renal Epithelial Cell Uric Acid Crystals Amorphous Sediment Urine Bacteria Urine Mucus Stool Occult Blood Urine Opiates Screen Urine Fentanyl Screen Ur Barbiturates Screen Ur Phencyclidine Scrn Ur Amphetamines Screen U Benzodiazepines Scrn Urine Cocaine Screen U Marijuana (THC) Screen C. difficile Tox B Gene COVID-19 (KRISTOPHER) COVID-19 Clin Com Blood Type Antibody Screen Crossmatch 06/19/21 06/19/21 06/19/21 11:27 15:32 23:07 WBC RBC Hgb Hct MCV MCH MCHC RDW Plt Count MPV Immature Gran % (Auto) Neut % (Auto) Lymph % (Auto) Caroline % (Auto) Eos % (Auto) Baso % (Auto) Lymph # (Auto) Caroline # (Auto) Eos # (Auto) Baso # (Auto) Abs Immat Gran (auto) Absolute Neuts (auto) Absolute Nucleated RBC Nucleated RBC % (auto) Neutrophils % (Manual) Band Neutrophils % Lymphocytes % (Manual) Monocytes % (Manual) Eosinophils % (Manual) Metamyelocytes % Myelocytes % Promyelocytes % Abs Neuts (Manual) Lymphocytes # (Manual) Monocytes # (Manual) Eosinophils # (Manual) Metamyelocytes # Myelocytes # Promyelocytes # Smudge Cells Toxic Vacuolation Platelet Estimate Large Platelets Plt Morphology Comment RBC Morphology Polychromasia Hypochromasia Basophilic Stippling Microcytosis Macrocytosis Target Cells Tear Drop Cells Ovalocytes Esthela Cells Acanthocytes (Spur) Smear Tech's Comments Smear Path Review PT INR APTT D-Dimer High Sensitivty O2 Saturation 99.0 ABG pH at Pt Temp 7.36 ABG pCO2 at Pt Temp 46 H ABG pO2 at Pt Temp 181 H ABG HCO3 27 H ABG Base Excess (Actual) 1.4 VBG pH VBG pCO2 VBG pO2 VBG HCO3 VBG O2 Saturation VBG Base Excess Sodium Potassium Chloride Carbon Dioxide Anion Gap BUN Creatinine Estim Creat Clear Calc Estimated GFR POC Glucose 176 H 269 H Random Glucose Fasting Glucose Estimat Average Glucose Hemoglobin A1c % Lactic Acid Lactic Acid F/U @ 2Hr Lactic Acid F/U @ 4Hr Calcium Phosphorus Magnesium Ferritin Total Bilirubin Direct Bilirubin AST ALT Alkaline Phosphatase Lactate Dehydrogenase Total Creatine Kinase Troponin I High Sens C-Reactive Protein B-Natriuretic Peptide Total Protein Albumin Procalcitonin TSH Urine Color Urine Appearance Urine pH Ur Specific Riparius Urine Protein Urine Glucose (UA) Urine Ketones Urine Blood Urine Nitrite Ur Leukocyte Esterase Urine RBC Urine WBC Urine WBC Clumps Ur Squamous Epith Cells Ur Renal Epithelial Cell Uric Acid Crystals Amorphous Sediment Urine Bacteria Urine Mucus Stool Occult Blood Urine Opiates Screen Urine Fentanyl Screen Ur Barbiturates Screen Ur Phencyclidine Scrn Ur Amphetamines Screen U Benzodiazepines Scrn Urine Cocaine Screen U Marijuana (THC) Screen C. difficile Tox B Gene COVID-19 (KRISTOPHER) COVID-19 Clin Com Blood Type Antibody Screen Crossmatch 06/20/21 06/20/21 06/20/21 00:27 00:27 00:59 WBC 13.3 H RBC 3.42 L D Hgb 8.4 L Hct 28.3 L D MCV 82.7 MCH 24.6 L MCHC 29.7 L RDW 17.2 H Plt Count 272 D MPV 9.9 Immature Gran % (Auto) 0.5 H Neut % (Auto) 93.8 H Lymph % (Auto) 2.3 L Caroline % (Auto) 3.2 Eos % (Auto) 0.0 Baso % (Auto) 0.2 Lymph # (Auto) 0.3 L Caroline # (Auto) 0.4 Eos # (Auto) 0.0 Baso # (Auto) 0.0 Abs Immat Gran (auto) 0.07 H Absolute Neuts (auto) 12.5 H Absolute Nucleated RBC 0.000 Nucleated RBC % (auto) 0.0 Neutrophils % (Manual) Band Neutrophils % Lymphocytes % (Manual) Monocytes % (Manual) Eosinophils % (Manual) Metamyelocytes % Myelocytes % Promyelocytes % Abs Neuts (Manual) Lymphocytes # (Manual) Monocytes # (Manual) Eosinophils # (Manual) Metamyelocytes # Myelocytes # Promyelocytes # Smudge Cells Toxic Vacuolation Platelet Estimate Large Platelets Plt Morphology Comment RBC Morphology Polychromasia Hypochromasia Basophilic Stippling Microcytosis Macrocytosis Target Cells Tear Drop Cells Ovalocytes Esthela Cells Acanthocytes (Spur) Smear Tech's Comments VERIFIED Smear Path Review PT INR APTT D-Dimer High Sensitivty O2 Saturation ABG pH at Pt Temp ABG pCO2 at Pt Temp ABG pO2 at Pt Temp ABG HCO3 ABG Base Excess (Actual) VBG pH VBG pCO2 VBG pO2 VBG HCO3 VBG O2 Saturation VBG Base Excess Sodium 139 Potassium 4.0 Chloride 101 Carbon Dioxide 28 Anion Gap 14 BUN 29 H Creatinine 0.86 Estim Creat Clear Calc 121.8 Estimated GFR > 60 POC Glucose Random Glucose Fasting Glucose 257 H D Estimat Average Glucose Hemoglobin A1c % Lactic Acid Lactic Acid F/U @ 2Hr Lactic Acid F/U @ 4Hr Calcium 8.4 D Phosphorus Magnesium Ferritin Total Bilirubin Direct Bilirubin AST ALT Alkaline Phosphatase Lactate Dehydrogenase Total Creatine Kinase Troponin I High Sens C-Reactive Protein B-Natriuretic Peptide Total Protein Albumin Procalcitonin TSH Urine Color Urine Appearance Urine pH Ur Specific Riparius Urine Protein Urine Glucose (UA) Urine Ketones Urine Blood Urine Nitrite Ur Leukocyte Esterase Urine RBC Urine WBC Urine WBC Clumps Ur Squamous Epith Cells Ur Renal Epithelial Cell Uric Acid Crystals Amorphous Sediment Urine Bacteria Urine Mucus Stool Occult Blood Urine Opiates Screen POSITIVE H Urine Fentanyl Screen POSITIVE H Ur Barbiturates Screen Not Detected Ur Phencyclidine Scrn Not Detected Ur Amphetamines Screen Not Detected U Benzodiazepines Scrn Not Detected Urine Cocaine Screen POSITIVE H U Marijuana (THC) Screen Not Detected C. difficile Tox B Gene COVID-19 (KRISTOPHER) COVID-19 Clin Com Blood Type Antibody Screen Crossmatch 06/20/21 06/20/21 06/20/21 05:35 05:35 05:37 WBC 11.0 H RBC 3.43 L Hgb 8.4 L Hct 28.3 L MCV 82.5 MCH 24.5 L MCHC 29.7 L RDW 17.2 H Plt Count 270 MPV 9.6 Immature Gran % (Auto) 0.6 H Neut % (Auto) 90.1 H Lymph % (Auto) 5.8 L Caroline % (Auto) 3.4 Eos % (Auto) 0.0 Baso % (Auto) 0.1 Lymph # (Auto) 0.6 L Caroline # (Auto) 0.4 Eos # (Auto) 0.0 Baso # (Auto) 0.0 Abs Immat Gran (auto) 0.07 H Absolute Neuts (auto) 9.9 H Absolute Nucleated RBC 0.000 Nucleated RBC % (auto) 0.0 Neutrophils % (Manual) Band Neutrophils % Lymphocytes % (Manual) Monocytes % (Manual) Eosinophils % (Manual) Metamyelocytes % Myelocytes % Promyelocytes % Abs Neuts (Manual) Lymphocytes # (Manual) Monocytes # (Manual) Eosinophils # (Manual) Metamyelocytes # Myelocytes # Promyelocytes # Smudge Cells Toxic Vacuolation Platelet Estimate Large Platelets Plt Morphology Comment RBC Morphology Polychromasia Hypochromasia Basophilic Stippling Microcytosis Macrocytosis Target Cells Tear Drop Cells Ovalocytes Drake Cells Acanthocytes (Spur) Smear Tech's Comments Smear Path Review PT INR APTT D-Dimer High Sensitivty O2 Saturation ABG pH at Pt Temp ABG pCO2 at Pt Temp ABG pO2 at Pt Temp ABG HCO3 ABG Base Excess (Actual) VBG pH 7.42 VBG pCO2 46 VBG pO2 53 VBG HCO3 30 H VBG O2 Saturation 77.0 VBG Base Excess 5.7 Sodium 140 Potassium 4.1 Chloride 101 Carbon Dioxide 29 Anion Gap 14 BUN 27 H Creatinine 0.79 Estim Creat Clear Calc 132.6 Estimated GFR > 60 POC Glucose Random Glucose 221 H D Fasting Glucose Estimat Average Glucose Hemoglobin A1c % Lactic Acid Lactic Acid F/U @ 2Hr Lactic Acid F/U @ 4Hr Calcium 8.7 Phosphorus Magnesium Ferritin 462 H Total Bilirubin 0.5 Direct Bilirubin AST 11 ALT 14 Alkaline Phosphatase 96 Lactate Dehydrogenase 422 H Total Creatine Kinase Troponin I High Sens C-Reactive Protein B-Natriuretic Peptide Total Protein 5.4 L Albumin 2.8 L Procalcitonin TSH Urine Color Urine Appearance Urine pH Ur Specific Riparius Urine Protein Urine Glucose (UA) Urine Ketones Urine Blood Urine Nitrite Ur Leukocyte Esterase Urine RBC Urine WBC Urine WBC Clumps Ur Squamous Epith Cells Ur Renal Epithelial Cell Uric Acid Crystals Amorphous Sediment Urine Bacteria Urine Mucus Stool Occult Blood Urine Opiates Screen Urine Fentanyl Screen Ur Barbiturates Screen Ur Phencyclidine Scrn Ur Amphetamines Screen U Benzodiazepines Scrn Urine Cocaine Screen U Marijuana (THC) Screen C. difficile Tox B Gene COVID-19 (KRISTOPHER) COVID-19 Clin Com Blood Type Antibody Screen Crossmatch 06/20/21 06/20/21 06/20/21 07:12 11:32 15:31 WBC RBC Hgb Hct MCV MCH MCHC RDW Plt Count MPV Immature Gran % (Auto) Neut % (Auto) Lymph % (Auto) Caroline % (Auto) Eos % (Auto) Baso % (Auto) Lymph # (Auto) Caroline # (Auto) Eos # (Auto) Baso # (Auto) Abs Immat Gran (auto) Absolute Neuts (auto) Absolute Nucleated RBC Nucleated RBC % (auto) Neutrophils % (Manual) Band Neutrophils % Lymphocytes % (Manual) Monocytes % (Manual) Eosinophils % (Manual) Metamyelocytes % Myelocytes % Promyelocytes % Abs Neuts (Manual) Lymphocytes # (Manual) Monocytes # (Manual) Eosinophils # (Manual) Metamyelocytes # Myelocytes # Promyelocytes # Smudge Cells Toxic Vacuolation Platelet Estimate Large Platelets Plt Morphology Comment RBC Morphology Polychromasia Hypochromasia Basophilic Stippling Microcytosis Macrocytosis Target Cells Tear Drop Cells Ovalocytes Esthela Cells Acanthocytes (Spur) Smear Tech's Comments Smear Path Review PT INR APTT D-Dimer High Sensitivty O2 Saturation ABG pH at Pt Temp ABG pCO2 at Pt Temp ABG pO2 at Pt Temp ABG HCO3 ABG Base Excess (Actual) VBG pH VBG pCO2 VBG pO2 VBG HCO3 VBG O2 Saturation VBG Base Excess Sodium Potassium Chloride Carbon Dioxide Anion Gap BUN Creatinine Estim Creat Clear Calc Estimated GFR POC Glucose 180 H 178 H Random Glucose Fasting Glucose Estimat Average Glucose Hemoglobin A1c % Lactic Acid Lactic Acid F/U @ 2Hr Lactic Acid F/U @ 4Hr Calcium Phosphorus Magnesium Ferritin Total Bilirubin Direct Bilirubin AST ALT Alkaline Phosphatase Lactate Dehydrogenase Total Creatine Kinase Troponin I High Sens 18.7 C-Reactive Protein B-Natriuretic Peptide Total Protein Albumin Procalcitonin TSH Urine Color Urine Appearance Urine pH Ur Specific Riparius Urine Protein Urine Glucose (UA) Urine Ketones Urine Blood Urine Nitrite Ur Leukocyte Esterase Urine RBC Urine WBC Urine WBC Clumps Ur Squamous Epith Cells Ur Renal Epithelial Cell Uric Acid Crystals Amorphous Sediment Urine Bacteria Urine Mucus Stool Occult Blood Urine Opiates Screen Urine Fentanyl Screen Ur Barbiturates Screen Ur Phencyclidine Scrn Ur Amphetamines Screen U Benzodiazepines Scrn Urine Cocaine Screen U Marijuana (THC) Screen C. difficile Tox B Gene COVID-19 (KRISTOPHER) COVID-19 Clin Com Blood Type Antibody Screen Crossmatch 06/20/21 06/20/21 06/21/21 16:58 23:43 05:45 WBC 8.4 RBC 3.08 L Hgb 7.5 L Hct 25.7 L MCV 83.4 MCH 24.4 L MCHC 29.2 L RDW 17.1 H Plt Count 194 D MPV 9.9 Immature Gran % (Auto) 0.8 H Neut % (Auto) 89.0 H Lymph % (Auto) 6.5 L Caroline % (Auto) 3.5 Eos % (Auto) 0.2 Baso % (Auto) 0.0 Lymph # (Auto) 0.6 L Caroline # (Auto) 0.3 Eos # (Auto) 0.0 Baso # (Auto) 0.0 Abs Immat Gran (auto) 0.07 H Absolute Neuts (auto) 7.5 Absolute Nucleated RBC 0.000 Nucleated RBC % (auto) 0.0 Neutrophils % (Manual) Band Neutrophils % Lymphocytes % (Manual) Monocytes % (Manual) Eosinophils % (Manual) Metamyelocytes % Myelocytes % Promyelocytes % Abs Neuts (Manual) Lymphocytes # (Manual) Monocytes # (Manual) Eosinophils # (Manual) Metamyelocytes # Myelocytes # Promyelocytes # Smudge Cells Toxic Vacuolation Platelet Estimate Large Platelets Plt Morphology Comment RBC Morphology Polychromasia Hypochromasia Basophilic Stippling Microcytosis Macrocytosis Target Cells Tear Drop Cells Ovalocytes Esthela Cells Acanthocytes (Spur) Smear Tech's Comments Smear Path Review PT INR APTT D-Dimer High Sensitivty O2 Saturation ABG pH at Pt Temp ABG pCO2 at Pt Temp ABG pO2 at Pt Temp ABG HCO3 ABG Base Excess (Actual) VBG pH VBG pCO2 VBG pO2 VBG HCO3 VBG O2 Saturation VBG Base Excess Sodium Potassium Chloride Carbon Dioxide Anion Gap BUN Creatinine Estim Creat Clear Calc Estimated GFR POC Glucose 258 H 259 H Random Glucose Fasting Glucose Estimat Average Glucose Hemoglobin A1c % Lactic Acid Lactic Acid F/U @ 2Hr Lactic Acid F/U @ 4Hr Calcium Phosphorus Magnesium Ferritin Total Bilirubin Direct Bilirubin AST ALT Alkaline Phosphatase Lactate Dehydrogenase Total Creatine Kinase Troponin I High Sens C-Reactive Protein B-Natriuretic Peptide Total Protein Albumin Procalcitonin TSH Urine Color Urine Appearance Urine pH Ur Specific Riparius Urine Protein Urine Glucose (UA) Urine Ketones Urine Blood Urine Nitrite Ur Leukocyte Esterase Urine RBC Urine WBC Urine WBC Clumps Ur Squamous Epith Cells Ur Renal Epithelial Cell Uric Acid Crystals Amorphous Sediment Urine Bacteria Urine Mucus Stool Occult Blood Urine Opiates Screen Urine Fentanyl Screen Ur Barbiturates Screen Ur Phencyclidine Scrn Ur Amphetamines Screen U Benzodiazepines Scrn Urine Cocaine Screen U Marijuana (THC) Screen C. difficile Tox B Gene COVID-19 (KRISTOPHER) COVID-19 Clin Com Blood Type Antibody Screen Crossmatch 06/21/21 06/21/21 06/21/21 05:45 05:47 05:52 WBC RBC Hgb Hct MCV MCH MCHC RDW Plt Count MPV Immature Gran % (Auto) Neut % (Auto) Lymph % (Auto) Caroline % (Auto) Eos % (Auto) Baso % (Auto) Lymph # (Auto) Caroline # (Auto) Eos # (Auto) Baso # (Auto) Abs Immat Gran (auto) Absolute Neuts (auto) Absolute Nucleated RBC Nucleated RBC % (auto) Neutrophils % (Manual) Band Neutrophils % Lymphocytes % (Manual) Monocytes % (Manual) Eosinophils % (Manual) Metamyelocytes % Myelocytes % Promyelocytes % Abs Neuts (Manual) Lymphocytes # (Manual) Monocytes # (Manual) Eosinophils # (Manual) Metamyelocytes # Myelocytes # Promyelocytes # Smudge Cells Toxic Vacuolation Platelet Estimate Large Platelets Plt Morphology Comment RBC Morphology Polychromasia Hypochromasia Basophilic Stippling Microcytosis Macrocytosis Target Cells Tear Drop Cells Ovalocytes Esthela Cells Acanthocytes (Spur) Smear Tech's Comments Smear Path Review PT INR APTT D-Dimer High Sensitivty O2 Saturation ABG pH at Pt Temp ABG pCO2 at Pt Temp ABG pO2 at Pt Temp ABG HCO3 ABG Base Excess (Actual) VBG pH 7.46 H VBG pCO2 51 VBG pO2 53 VBG HCO3 36 H VBG O2 Saturation 81.0 VBG Base Excess 11.8 Sodium 142 Potassium 4.3 Chloride 102 Carbon Dioxide 33 H Anion Gap 11 L BUN 30 H Creatinine 0.84 Estim Creat Clear Calc 124.7 Estimated GFR > 60 POC Glucose 216 H Random Glucose 230 H Fasting Glucose Estimat Average Glucose Hemoglobin A1c % Lactic Acid Lactic Acid F/U @ 2Hr Lactic Acid F/U @ 4Hr Calcium 9.1 Phosphorus Magnesium Ferritin Total Bilirubin 0.3 Direct Bilirubin AST 7 ALT 9 Alkaline Phosphatase 77 Lactate Dehydrogenase Total Creatine Kinase Troponin I High Sens C-Reactive Protein B-Natriuretic Peptide Total Protein 5.7 L Albumin 3.2 L Procalcitonin TSH Urine Color Urine Appearance Urine pH Ur Specific Riparius Urine Protein Urine Glucose (UA) Urine Ketones Urine Blood Urine Nitrite Ur Leukocyte Esterase Urine RBC Urine WBC Urine WBC Clumps Ur Squamous Epith Cells Ur Renal Epithelial Cell Uric Acid Crystals Amorphous Sediment Urine Bacteria Urine Mucus Stool Occult Blood Urine Opiates Screen Urine Fentanyl Screen Ur Barbiturates Screen Ur Phencyclidine Scrn Ur Amphetamines Screen U Benzodiazepines Scrn Urine Cocaine Screen U Marijuana (THC) Screen C. difficile Tox B Gene COVID-19 (KRISTOPHER) COVID-19 Clin Com Blood Type Antibody Screen Crossmatch 06/21/21 06/21/21 06/21/21 08:45 09:33 11:17 WBC RBC Hgb Hct MCV MCH MCHC RDW Plt Count MPV Immature Gran % (Auto) Neut % (Auto) Lymph % (Auto) Caroline % (Auto) Eos % (Auto) Baso % (Auto) Lymph # (Auto) Caroline # (Auto) Eos # (Auto) Baso # (Auto) Abs Immat Gran (auto) Absolute Neuts (auto) Absolute Nucleated RBC Nucleated RBC % (auto) Neutrophils % (Manual) Band Neutrophils % Lymphocytes % (Manual) Monocytes % (Manual) Eosinophils % (Manual) Metamyelocytes % Myelocytes % Promyelocytes % Abs Neuts (Manual) Lymphocytes # (Manual) Monocytes # (Manual) Eosinophils # (Manual) Metamyelocytes # Myelocytes # Promyelocytes # Smudge Cells Toxic Vacuolation Platelet Estimate Large Platelets Plt Morphology Comment RBC Morphology Polychromasia Hypochromasia Basophilic Stippling Microcytosis Macrocytosis Target Cells Tear Drop Cells Ovalocytes Drake Cells Acanthocytes (Spur) Smear Tech's Comments Smear Path Review PT INR APTT D-Dimer High Sensitivty O2 Saturation ABG pH at Pt Temp ABG pCO2 at Pt Temp ABG pO2 at Pt Temp ABG HCO3 ABG Base Excess (Actual) VBG pH VBG pCO2 VBG pO2 VBG HCO3 VBG O2 Saturation VBG Base Excess Sodium Potassium Chloride Carbon Dioxide Anion Gap BUN Creatinine Estim Creat Clear Calc Estimated GFR POC Glucose 213 H Random Glucose Fasting Glucose Estimat Average Glucose Hemoglobin A1c % Lactic Acid Lactic Acid F/U @ 2Hr Lactic Acid F/U @ 4Hr Calcium Phosphorus Magnesium Ferritin Total Bilirubin Direct Bilirubin AST ALT Alkaline Phosphatase Lactate Dehydrogenase Total Creatine Kinase Troponin I High Sens C-Reactive Protein B-Natriuretic Peptide Total Protein Albumin Procalcitonin TSH Urine Color YELLOW Urine Appearance CLOUDY Urine pH 6.0 Ur Specific Riparius 1.020 Urine Protein 1+ H Urine Glucose (UA) NEG Urine Ketones NEG Urine Blood 3+ H Urine Nitrite NEG Ur Leukocyte Esterase 2+ H Urine RBC TNTC H Urine WBC 30-49 H Urine WBC Clumps NOTED Ur Squamous Epith Cells TRACE Ur Renal Epithelial Cell 1+ Uric Acid Crystals 2+ Amorphous Sediment 3+ Urine Bacteria 4+ Urine Mucus 1+ Stool Occult Blood Urine Opiates Screen Urine Fentanyl Screen Ur Barbiturates Screen Ur Phencyclidine Scrn Ur Amphetamines Screen U Benzodiazepines Scrn Urine Cocaine Screen U Marijuana (THC) Screen C. difficile Tox B Gene COVID-19 (KRISTOPHER) COVID-19 Clin Com Blood Type O Positive Antibody Screen NEGATIVE Crossmatch See Detail 06/21/21 06/21/21 06/21/21 16:33 17:46 23:32 WBC 9.9 RBC 3.33 L Hgb 8.3 L Hct 27.7 L MCV 83.2 MCH 24.9 L MCHC 30.0 L RDW 16.9 H Plt Count 187 MPV 10.3 Immature Gran % (Auto) 0.6 H Neut % (Auto) 93.6 H Lymph % (Auto) 2.1 L Caroline % (Auto) 3.7 Eos % (Auto) 0.0 Baso % (Auto) 0.0 Lymph # (Auto) 0.2 L Caroline # (Auto) 0.4 Eos # (Auto) 0.0 Baso # (Auto) 0.0 Abs Immat Gran (auto) 0.06 H Absolute Neuts (auto) 9.2 H Absolute Nucleated RBC 0.000 Nucleated RBC % (auto) 0.0 Neutrophils % (Manual) Band Neutrophils % Lymphocytes % (Manual) Monocytes % (Manual) Eosinophils % (Manual) Metamyelocytes % Myelocytes % Promyelocytes % Abs Neuts (Manual) Lymphocytes # (Manual) Monocytes # (Manual) Eosinophils # (Manual) Metamyelocytes # Myelocytes # Promyelocytes # Smudge Cells Toxic Vacuolation Platelet Estimate Large Platelets Plt Morphology Comment RBC Morphology Polychromasia Hypochromasia Basophilic Stippling Microcytosis Macrocytosis Target Cells Tear Drop Cells Ovalocytes Esthela Cells Acanthocytes (Spur) Smear Tech's Comments VERIFIED Smear Path Review PT INR APTT D-Dimer High Sensitivty O2 Saturation ABG pH at Pt Temp ABG pCO2 at Pt Temp ABG pO2 at Pt Temp ABG HCO3 ABG Base Excess (Actual) VBG pH VBG pCO2 VBG pO2 VBG HCO3 VBG O2 Saturation VBG Base Excess Sodium Potassium Chloride Carbon Dioxide Anion Gap BUN Creatinine Estim Creat Clear Calc Estimated GFR POC Glucose 320 H 328 H Random Glucose Fasting Glucose Estimat Average Glucose Hemoglobin A1c % Lactic Acid Lactic Acid F/U @ 2Hr Lactic Acid F/U @ 4Hr Calcium Phosphorus Magnesium Ferritin Total Bilirubin Direct Bilirubin AST ALT Alkaline Phosphatase Lactate Dehydrogenase Total Creatine Kinase Troponin I High Sens C-Reactive Protein B-Natriuretic Peptide Total Protein Albumin Procalcitonin TSH Urine Color Urine Appearance Urine pH Ur Specific Riparius Urine Protein Urine Glucose (UA) Urine Ketones Urine Blood Urine Nitrite Ur Leukocyte Esterase Urine RBC Urine WBC Urine WBC Clumps Ur Squamous Epith Cells Ur Renal Epithelial Cell Uric Acid Crystals Amorphous Sediment Urine Bacteria Urine Mucus Stool Occult Blood Urine Opiates Screen Urine Fentanyl Screen Ur Barbiturates Screen Ur Phencyclidine Scrn Ur Amphetamines Screen U Benzodiazepines Scrn Urine Cocaine Screen U Marijuana (THC) Screen C. difficile Tox B Gene COVID-19 (KRISTOPHER) COVID-19 Clin Com Blood Type Antibody Screen Crossmatch 06/22/21 06/22/21 06/22/21 05:17 05:17 05:20 WBC 5.3 RBC 3.17 L Hgb 7.8 L Hct 26.5 L MCV 83.6 MCH 24.6 L MCHC 29.4 L RDW 17.2 H Plt Count 169 MPV 10.8 Immature Gran % (Auto) 1.3 H Neut % (Auto) 88.0 H Lymph % (Auto) 6.7 L Caroline % (Auto) 3.8 Eos % (Auto) 0.2 Baso % (Auto) 0.0 Lymph # (Auto) 0.4 L Caroline # (Auto) 0.2 Eos # (Auto) 0.0 Baso # (Auto) 0.0 Abs Immat Gran (auto) 0.07 H Absolute Neuts (auto) 4.6 Absolute Nucleated RBC 0.020 H Nucleated RBC % (auto) 0.4 H Neutrophils % (Manual) Band Neutrophils % Lymphocytes % (Manual) Monocytes % (Manual) Eosinophils % (Manual) Metamyelocytes % Myelocytes % Promyelocytes % Abs Neuts (Manual) Lymphocytes # (Manual) Monocytes # (Manual) Eosinophils # (Manual) Metamyelocytes # Myelocytes # Promyelocytes # Smudge Cells Toxic Vacuolation Platelet Estimate Large Platelets Plt Morphology Comment RBC Morphology Polychromasia Hypochromasia Basophilic Stippling Microcytosis Macrocytosis Target Cells Tear Drop Cells Ovalocytes Esthela Cells Acanthocytes (Spur) Smear Tech's Comments Smear Path Review PT INR APTT D-Dimer High Sensitivty O2 Saturation ABG pH at Pt Temp ABG pCO2 at Pt Temp ABG pO2 at Pt Temp ABG HCO3 ABG Base Excess (Actual) VBG pH VBG pCO2 VBG pO2 VBG HCO3 VBG O2 Saturation VBG Base Excess Sodium 138 Potassium 4.5 Chloride 100 Carbon Dioxide 35 H Anion Gap 8 L BUN 21 H Creatinine 0.75 Estim Creat Clear Calc 139.7 Estimated GFR > 60 POC Glucose 268 H Random Glucose 309 H Fasting Glucose Estimat Average Glucose Hemoglobin A1c % Lactic Acid Lactic Acid F/U @ 2Hr Lactic Acid F/U @ 4Hr Calcium 8.6 Phosphorus Magnesium Ferritin Total Bilirubin 0.3 Direct Bilirubin AST 7 ALT 6 Alkaline Phosphatase 73 Lactate Dehydrogenase Total Creatine Kinase Troponin I High Sens C-Reactive Protein B-Natriuretic Peptide Total Protein 5.3 L Albumin 2.7 L Procalcitonin TSH Urine Color Urine Appearance Urine pH Ur Specific Riparius Urine Protein Urine Glucose (UA) Urine Ketones Urine Blood Urine Nitrite Ur Leukocyte Esterase Urine RBC Urine WBC Urine WBC Clumps Ur Squamous Epith Cells Ur Renal Epithelial Cell Uric Acid Crystals Amorphous Sediment Urine Bacteria Urine Mucus Stool Occult Blood Urine Opiates Screen Urine Fentanyl Screen Ur Barbiturates Screen Ur Phencyclidine Scrn Ur Amphetamines Screen U Benzodiazepines Scrn Urine Cocaine Screen U Marijuana (THC) Screen C. difficile Tox B Gene COVID-19 (KRISTOPHER) COVID-19 Clin Com Blood Type Antibody Screen Crossmatch 06/22/21 06/22/21 06/22/21 05:23 11:52 18:12 WBC RBC Hgb Hct MCV MCH MCHC RDW Plt Count MPV Immature Gran % (Auto) Neut % (Auto) Lymph % (Auto) Caroline % (Auto) Eos % (Auto) Baso % (Auto) Lymph # (Auto) Caroline # (Auto) Eos # (Auto) Baso # (Auto) Abs Immat Gran (auto) Absolute Neuts (auto) Absolute Nucleated RBC Nucleated RBC % (auto) Neutrophils % (Manual) Band Neutrophils % Lymphocytes % (Manual) Monocytes % (Manual) Eosinophils % (Manual) Metamyelocytes % Myelocytes % Promyelocytes % Abs Neuts (Manual) Lymphocytes # (Manual) Monocytes # (Manual) Eosinophils # (Manual) Metamyelocytes # Myelocytes # Promyelocytes # Smudge Cells Toxic Vacuolation Platelet Estimate Large Platelets Plt Morphology Comment RBC Morphology Polychromasia Hypochromasia Basophilic Stippling Microcytosis Macrocytosis Target Cells Tear Drop Cells Ovalocytes Drake Cells Acanthocytes (Spur) Smear Tech's Comments Smear Path Review PT INR APTT D-Dimer High Sensitivty O2 Saturation ABG pH at Pt Temp ABG pCO2 at Pt Temp ABG pO2 at Pt Temp ABG HCO3 ABG Base Excess (Actual) VBG pH 7.50 H VBG pCO2 41 VBG pO2 43 VBG HCO3 32 H VBG O2 Saturation 66.0 VBG Base Excess 9.0 Sodium Potassium Chloride Carbon Dioxide Anion Gap BUN Creatinine Estim Creat Clear Calc Estimated GFR POC Glucose 294 H 346 H Random Glucose Fasting Glucose Estimat Average Glucose Hemoglobin A1c % Lactic Acid Lactic Acid F/U @ 2Hr Lactic Acid F/U @ 4Hr Calcium Phosphorus Magnesium Ferritin Total Bilirubin Direct Bilirubin AST ALT Alkaline Phosphatase Lactate Dehydrogenase Total Creatine Kinase Troponin I High Sens C-Reactive Protein B-Natriuretic Peptide Total Protein Albumin Procalcitonin TSH Urine Color Urine Appearance Urine pH Ur Specific Riparius Urine Protein Urine Glucose (UA) Urine Ketones Urine Blood Urine Nitrite Ur Leukocyte Esterase Urine RBC Urine WBC Urine WBC Clumps Ur Squamous Epith Cells Ur Renal Epithelial Cell Uric Acid Crystals Amorphous Sediment Urine Bacteria Urine Mucus Stool Occult Blood Urine Opiates Screen Urine Fentanyl Screen Ur Barbiturates Screen Ur Phencyclidine Scrn Ur Amphetamines Screen U Benzodiazepines Scrn Urine Cocaine Screen U Marijuana (THC) Screen C. difficile Tox B Gene COVID-19 (KRISTOPHER) COVID-19 Clin Com Blood Type Antibody Screen Crossmatch 06/22/21 06/23/21 06/23/21 23:46 05:30 05:30 WBC 5.4 RBC 3.08 L Hgb 7.5 L Hct 26.0 L MCV 84.4 MCH 24.4 L MCHC 28.8 L RDW 17.5 H Plt Count 194 MPV 11.2 Immature Gran % (Auto) 4.7 H Neut % (Auto) 80.9 H Lymph % (Auto) 7.3 L Caroline % (Auto) 6.7 Eos % (Auto) 0.4 Baso % (Auto) 0.0 Lymph # (Auto) 0.4 L Caroline # (Auto) 0.4 Eos # (Auto) 0.0 Baso # (Auto) 0.0 Abs Immat Gran (auto) 0.25 H Absolute Neuts (auto) 4.4 Absolute Nucleated RBC 0.030 H Nucleated RBC % (auto) 0.6 H Neutrophils % (Manual) Band Neutrophils % Lymphocytes % (Manual) Monocytes % (Manual) Eosinophils % (Manual) Metamyelocytes % Myelocytes % Promyelocytes % Abs Neuts (Manual) Lymphocytes # (Manual) Monocytes # (Manual) Eosinophils # (Manual) Metamyelocytes # Myelocytes # Promyelocytes # Smudge Cells Toxic Vacuolation Platelet Estimate Large Platelets Plt Morphology Comment RBC Morphology Polychromasia Hypochromasia Basophilic Stippling Microcytosis Macrocytosis Target Cells Tear Drop Cells Ovalocytes Drake Cells Acanthocytes (Spur) Smear Tech's Comments Smear Path Review PT INR APTT D-Dimer High Sensitivty O2 Saturation ABG pH at Pt Temp ABG pCO2 at Pt Temp ABG pO2 at Pt Temp ABG HCO3 ABG Base Excess (Actual) VBG pH VBG pCO2 VBG pO2 VBG HCO3 VBG O2 Saturation VBG Base Excess Sodium 141 Potassium 4.6 Chloride 105 Carbon Dioxide 31 H Anion Gap 10 L BUN 27 H Creatinine 0.73 Estim Creat Clear Calc 143.5 Estimated GFR > 60 POC Glucose 285 H Random Glucose 297 H Fasting Glucose Estimat Average Glucose Hemoglobin A1c % Lactic Acid Lactic Acid F/U @ 2Hr Lactic Acid F/U @ 4Hr Calcium 8.5 Phosphorus Magnesium Ferritin Total Bilirubin 0.2 Direct Bilirubin AST 6 ALT 7 Alkaline Phosphatase 66 Lactate Dehydrogenase Total Creatine Kinase Troponin I High Sens C-Reactive Protein B-Natriuretic Peptide Total Protein 5.1 L Albumin 2.6 L Procalcitonin TSH Urine Color Urine Appearance Urine pH Ur Specific Riparius Urine Protein Urine Glucose (UA) Urine Ketones Urine Blood Urine Nitrite Ur Leukocyte Esterase Urine RBC Urine WBC Urine WBC Clumps Ur Squamous Epith Cells Ur Renal Epithelial Cell Uric Acid Crystals Amorphous Sediment Urine Bacteria Urine Mucus Stool Occult Blood Urine Opiates Screen Urine Fentanyl Screen Ur Barbiturates Screen Ur Phencyclidine Scrn Ur Amphetamines Screen U Benzodiazepines Scrn Urine Cocaine Screen U Marijuana (THC) Screen C. difficile Tox B Gene COVID-19 (KRISTOPHER) COVID-19 Clin Com Blood Type Antibody Screen Crossmatch 06/23/21 06/23/21 06/23/21 05:33 05:40 10:49 WBC RBC Hgb Hct MCV MCH MCHC RDW Plt Count MPV Immature Gran % (Auto) Neut % (Auto) Lymph % (Auto) Caroline % (Auto) Eos % (Auto) Baso % (Auto) Lymph # (Auto) Caroline # (Auto) Eos # (Auto) Baso # (Auto) Abs Immat Gran (auto) Absolute Neuts (auto) Absolute Nucleated RBC Nucleated RBC % (auto) Neutrophils % (Manual) Band Neutrophils % Lymphocytes % (Manual) Monocytes % (Manual) Eosinophils % (Manual) Metamyelocytes % Myelocytes % Promyelocytes % Abs Neuts (Manual) Lymphocytes # (Manual) Monocytes # (Manual) Eosinophils # (Manual) Metamyelocytes # Myelocytes # Promyelocytes # Smudge Cells Toxic Vacuolation Platelet Estimate Large Platelets Plt Morphology Comment RBC Morphology Polychromasia Hypochromasia Basophilic Stippling Microcytosis Macrocytosis Target Cells Tear Drop Cells Ovalocytes Drake Cells Acanthocytes (Spur) Smear Tech's Comments Smear Path Review PT INR APTT D-Dimer High Sensitivty O2 Saturation ABG pH at Pt Temp ABG pCO2 at Pt Temp ABG pO2 at Pt Temp ABG HCO3 ABG Base Excess (Actual) VBG pH 7.50 H VBG pCO2 40 VBG pO2 48 VBG HCO3 31 H VBG O2 Saturation 74.0 VBG Base Excess 8.0 Sodium Potassium Chloride Carbon Dioxide Anion Gap BUN Creatinine Estim Creat Clear Calc Estimated GFR POC Glucose 269 H Random Glucose Fasting Glucose Estimat Average Glucose Hemoglobin A1c % Lactic Acid Lactic Acid F/U @ 2Hr Lactic Acid F/U @ 4Hr Calcium Phosphorus Magnesium Ferritin Total Bilirubin Direct Bilirubin AST ALT Alkaline Phosphatase Lactate Dehydrogenase Total Creatine Kinase Troponin I High Sens C-Reactive Protein B-Natriuretic Peptide Total Protein Albumin Procalcitonin TSH Urine Color Urine Appearance Urine pH Ur Specific Riparius Urine Protein Urine Glucose (UA) Urine Ketones Urine Blood Urine Nitrite Ur Leukocyte Esterase Urine RBC Urine WBC Urine WBC Clumps Ur Squamous Epith Cells Ur Renal Epithelial Cell Uric Acid Crystals Amorphous Sediment Urine Bacteria Urine Mucus Stool Occult Blood Urine Opiates Screen Urine Fentanyl Screen Ur Barbiturates Screen Ur Phencyclidine Scrn Ur Amphetamines Screen U Benzodiazepines Scrn Urine Cocaine Screen U Marijuana (THC) Screen C. difficile Tox B Gene NEGATIVE COVID-19 (KRISTOPHER) COVID-19 Clin Com Blood Type Antibody Screen Crossmatch 06/23/21 06/23/21 06/23/21 11:51 11:51 18:00 WBC RBC Hgb Hct MCV MCH MCHC RDW Plt Count MPV Immature Gran % (Auto) Neut % (Auto) Lymph % (Auto) Caroline % (Auto) Eos % (Auto) Baso % (Auto) Lymph # (Auto) Caroline # (Auto) Eos # (Auto) Baso # (Auto) Abs Immat Gran (auto) Absolute Neuts (auto) Absolute Nucleated RBC Nucleated RBC % (auto) Neutrophils % (Manual) Band Neutrophils % Lymphocytes % (Manual) Monocytes % (Manual) Eosinophils % (Manual) Metamyelocytes % Myelocytes % Promyelocytes % Abs Neuts (Manual) Lymphocytes # (Manual) Monocytes # (Manual) Eosinophils # (Manual) Metamyelocytes # Myelocytes # Promyelocytes # Smudge Cells Toxic Vacuolation Platelet Estimate Large Platelets Plt Morphology Comment RBC Morphology Polychromasia Hypochromasia Basophilic Stippling Microcytosis Macrocytosis Target Cells Tear Drop Cells Ovalocytes Esthela Cells Acanthocytes (Spur) Smear Tech's Comments Smear Path Review PT INR APTT D-Dimer High Sensitivty O2 Saturation ABG pH at Pt Temp ABG pCO2 at Pt Temp ABG pO2 at Pt Temp ABG HCO3 ABG Base Excess (Actual) VBG pH VBG pCO2 VBG pO2 VBG HCO3 VBG O2 Saturation VBG Base Excess Sodium Potassium Chloride Carbon Dioxide Anion Gap BUN Creatinine Estim Creat Clear Calc Estimated GFR POC Glucose 377 H* 421 H* 364 H* Random Glucose Fasting Glucose Estimat Average Glucose Hemoglobin A1c % Lactic Acid Lactic Acid F/U @ 2Hr Lactic Acid F/U @ 4Hr Calcium Phosphorus Magnesium Ferritin Total Bilirubin Direct Bilirubin AST ALT Alkaline Phosphatase Lactate Dehydrogenase Total Creatine Kinase Troponin I High Sens C-Reactive Protein B-Natriuretic Peptide Total Protein Albumin Procalcitonin TSH Urine Color Urine Appearance Urine pH Ur Specific Riparius Urine Protein Urine Glucose (UA) Urine Ketones Urine Blood Urine Nitrite Ur Leukocyte Esterase Urine RBC Urine WBC Urine WBC Clumps Ur Squamous Epith Cells Ur Renal Epithelial Cell Uric Acid Crystals Amorphous Sediment Urine Bacteria Urine Mucus Stool Occult Blood Urine Opiates Screen Urine Fentanyl Screen Ur Barbiturates Screen Ur Phencyclidine Scrn Ur Amphetamines Screen U Benzodiazepines Scrn Urine Cocaine Screen U Marijuana (THC) Screen C. difficile Tox B Gene COVID-19 (KRISTOPHER) COVID-19 Clin Com Blood Type Antibody Screen Crossmatch 06/23/21 06/23/21 06/24/21 22:29 23:31 00:27 WBC RBC Hgb Hct MCV MCH MCHC RDW Plt Count MPV Immature Gran % (Auto) Neut % (Auto) Lymph % (Auto) Caroline % (Auto) Eos % (Auto) Baso % (Auto) Lymph # (Auto) Caroline # (Auto) Eos # (Auto) Baso # (Auto) Abs Immat Gran (auto) Absolute Neuts (auto) Absolute Nucleated RBC Nucleated RBC % (auto) Neutrophils % (Manual) Band Neutrophils % Lymphocytes % (Manual) Monocytes % (Manual) Eosinophils % (Manual) Metamyelocytes % Myelocytes % Promyelocytes % Abs Neuts (Manual) Lymphocytes # (Manual) Monocytes # (Manual) Eosinophils # (Manual) Metamyelocytes # Myelocytes # Promyelocytes # Smudge Cells Toxic Vacuolation Platelet Estimate Large Platelets Plt Morphology Comment RBC Morphology Polychromasia Hypochromasia Basophilic Stippling Microcytosis Macrocytosis Target Cells Tear Drop Cells Ovalocytes Esthela Cells Acanthocytes (Spur) Smear Tech's Comments Smear Path Review PT INR APTT D-Dimer High Sensitivty O2 Saturation ABG pH at Pt Temp ABG pCO2 at Pt Temp ABG pO2 at Pt Temp ABG HCO3 ABG Base Excess (Actual) VBG pH VBG pCO2 VBG pO2 VBG HCO3 VBG O2 Saturation VBG Base Excess Sodium Potassium Chloride Carbon Dioxide Anion Gap BUN Creatinine Estim Creat Clear Calc Estimated GFR POC Glucose 288 H 293 H Random Glucose Fasting Glucose Estimat Average Glucose Hemoglobin A1c % Lactic Acid Lactic Acid F/U @ 2Hr Lactic Acid F/U @ 4Hr Calcium Phosphorus Magnesium Ferritin Total Bilirubin Direct Bilirubin AST ALT Alkaline Phosphatase Lactate Dehydrogenase Total Creatine Kinase Troponin I High Sens 21.1 C-Reactive Protein B-Natriuretic Peptide Total Protein Albumin Procalcitonin TSH Urine Color Urine Appearance Urine pH Ur Specific Riparius Urine Protein Urine Glucose (UA) Urine Ketones Urine Blood Urine Nitrite Ur Leukocyte Esterase Urine RBC Urine WBC Urine WBC Clumps Ur Squamous Epith Cells Ur Renal Epithelial Cell Uric Acid Crystals Amorphous Sediment Urine Bacteria Urine Mucus Stool Occult Blood Urine Opiates Screen Urine Fentanyl Screen Ur Barbiturates Screen Ur Phencyclidine Scrn Ur Amphetamines Screen U Benzodiazepines Scrn Urine Cocaine Screen U Marijuana (THC) Screen C. difficile Tox B Gene COVID-19 (KRISTOPHER) COVID-19 Clin Com Blood Type Antibody Screen Crossmatch 06/24/21 06/24/21 06/24/21 05:16 05:16 05:16 WBC RBC Hgb Hct MCV MCH MCHC RDW Plt Count MPV Immature Gran % (Auto) Neut % (Auto) Lymph % (Auto) Caroline % (Auto) Eos % (Auto) Baso % (Auto) Lymph # (Auto) Caroline # (Auto) Eos # (Auto) Baso # (Auto) Abs Immat Gran (auto) Absolute Neuts (auto) Absolute Nucleated RBC Nucleated RBC % (auto) Neutrophils % (Manual) Band Neutrophils % Lymphocytes % (Manual) Monocytes % (Manual) Eosinophils % (Manual) Metamyelocytes % Myelocytes % Promyelocytes % Abs Neuts (Manual) Lymphocytes # (Manual) Monocytes # (Manual) Eosinophils # (Manual) Metamyelocytes # Myelocytes # Promyelocytes # Smudge Cells Toxic Vacuolation Platelet Estimate Large Platelets Plt Morphology Comment RBC Morphology Polychromasia Hypochromasia Basophilic Stippling Microcytosis Macrocytosis Target Cells Tear Drop Cells Ovalocytes Drake Cells Acanthocytes (Spur) Smear Tech's Comments Smear Path Review PT 13.6 H INR 1.2 H APTT 24.3 D-Dimer High Sensitivty 57050 O2 Saturation ABG pH at Pt Temp ABG pCO2 at Pt Temp ABG pO2 at Pt Temp ABG HCO3 ABG Base Excess (Actual) VBG pH VBG pCO2 VBG pO2 VBG HCO3 VBG O2 Saturation VBG Base Excess Sodium 140 Potassium 4.3 Chloride 100 Carbon Dioxide 32 H Anion Gap 12 BUN 32 H Creatinine 0.73 Estim Creat Clear Calc 143.5 Estimated GFR > 60 POC Glucose Random Glucose 239 H Fasting Glucose Estimat Average Glucose Hemoglobin A1c % Lactic Acid Lactic Acid F/U @ 2Hr Lactic Acid F/U @ 4Hr Calcium 8.8 Phosphorus 3.1 Magnesium 2.0 Ferritin Total Bilirubin 0.3 Direct Bilirubin 0.2 AST 8 ALT 7 Alkaline Phosphatase 73 Lactate Dehydrogenase Total Creatine Kinase Troponin I High Sens 20.9 C-Reactive Protein B-Natriuretic Peptide Total Protein 5.7 L Albumin 2.8 L Procalcitonin TSH Urine Color Urine Appearance Urine pH Ur Specific Riparius Urine Protein Urine Glucose (UA) Urine Ketones Urine Blood Urine Nitrite Ur Leukocyte Esterase Urine RBC Urine WBC Urine WBC Clumps Ur Squamous Epith Cells Ur Renal Epithelial Cell Uric Acid Crystals Amorphous Sediment Urine Bacteria Urine Mucus Stool Occult Blood Urine Opiates Screen Urine Fentanyl Screen Ur Barbiturates Screen Ur Phencyclidine Scrn Ur Amphetamines Screen U Benzodiazepines Scrn Urine Cocaine Screen U Marijuana (THC) Screen C. difficile Tox B Gene COVID-19 (KRISTOPHER) COVID-19 Clin Com Blood Type Antibody Screen Crossmatch 06/24/21 06/24/21 06/24/21 05:17 05:26 06:18 WBC 6.2 RBC 3.28 L Hgb 8.1 L Hct 27.4 L MCV 83.5 MCH 24.7 L MCHC 29.6 L RDW 17.2 H Plt Count 221 MPV 10.8 Immature Gran % (Auto) Cancelled Neut % (Auto) Cancelled Lymph % (Auto) Cancelled Caroline % (Auto) Cancelled Eos % (Auto) Cancelled Baso % (Auto) Cancelled Lymph # (Auto) Cancelled Caroline # (Auto) Cancelled Eos # (Auto) Cancelled Baso # (Auto) Cancelled Abs Immat Gran (auto) Cancelled Absolute Neuts (auto) Cancelled Absolute Nucleated RBC 0.040 H Nucleated RBC % (auto) 0.7 H Neutrophils % (Manual) 77 H Band Neutrophils % 2 L Lymphocytes % (Manual) 6 L Monocytes % (Manual) 8 Eosinophils % (Manual) Metamyelocytes % 1 Myelocytes % 3 Promyelocytes % 3 Abs Neuts (Manual) 4.9 Lymphocytes # (Manual) 0.4 L Monocytes # (Manual) 0.5 Eosinophils # (Manual) Metamyelocytes # 0.1 Myelocytes # 0.2 Promyelocytes # 0.2 Smudge Cells PRESENT Toxic Vacuolation PRESENT Platelet Estimate NORMAL Large Platelets Plt Morphology Comment NORMAL RBC Morphology NOTED Polychromasia 1+ (0-2) Hypochromasia 1+ (5-14) Basophilic Stippling Microcytosis 2+ (15-30) Macrocytosis Target Cells 1+ (5-14) Tear Drop Cells 1+ (0-2) Ovalocytes 1+ (5-14) Drake Cells 2+ (3-5) Acanthocytes (Spur) Smear Tech's Comments Smear Path Review PT INR APTT D-Dimer High Sensitivty O2 Saturation ABG pH at Pt Temp ABG pCO2 at Pt Temp ABG pO2 at Pt Temp ABG HCO3 ABG Base Excess (Actual) VBG pH 7.50 H VBG pCO2 44 VBG pO2 50 VBG HCO3 35 H VBG O2 Saturation 77.0 VBG Base Excess 11.3 Sodium Potassium Chloride Carbon Dioxide Anion Gap BUN Creatinine Estim Creat Clear Calc Estimated GFR POC Glucose 210 H Random Glucose Fasting Glucose Estimat Average Glucose Hemoglobin A1c % Lactic Acid Lactic Acid F/U @ 2Hr Lactic Acid F/U @ 4Hr Calcium Phosphorus Magnesium Ferritin Total Bilirubin Direct Bilirubin AST ALT Alkaline Phosphatase Lactate Dehydrogenase Total Creatine Kinase Troponin I High Sens C-Reactive Protein B-Natriuretic Peptide Total Protein Albumin Procalcitonin TSH Urine Color Urine Appearance Urine pH Ur Specific Riparius Urine Protein Urine Glucose (UA) Urine Ketones Urine Blood Urine Nitrite Ur Leukocyte Esterase Urine RBC Urine WBC Urine WBC Clumps Ur Squamous Epith Cells Ur Renal Epithelial Cell Uric Acid Crystals Amorphous Sediment Urine Bacteria Urine Mucus Stool Occult Blood Urine Opiates Screen Urine Fentanyl Screen Ur Barbiturates Screen Ur Phencyclidine Scrn Ur Amphetamines Screen U Benzodiazepines Scrn Urine Cocaine Screen U Marijuana (THC) Screen C. difficile Tox B Gene COVID-19 (KRISTOPHER) COVID-19 Clin Com Blood Type Antibody Screen Crossmatch 06/24/21 06/24/21 06/25/21 11:48 17:36 00:33 WBC RBC Hgb Hct MCV MCH MCHC RDW Plt Count MPV Immature Gran % (Auto) Neut % (Auto) Lymph % (Auto) Caroline % (Auto) Eos % (Auto) Baso % (Auto) Lymph # (Auto) Caroline # (Auto) Eos # (Auto) Baso # (Auto) Abs Immat Gran (auto) Absolute Neuts (auto) Absolute Nucleated RBC Nucleated RBC % (auto) Neutrophils % (Manual) Band Neutrophils % Lymphocytes % (Manual) Monocytes % (Manual) Eosinophils % (Manual) Metamyelocytes % Myelocytes % Promyelocytes % Abs Neuts (Manual) Lymphocytes # (Manual) Monocytes # (Manual) Eosinophils # (Manual) Metamyelocytes # Myelocytes # Promyelocytes # Smudge Cells Toxic Vacuolation Platelet Estimate Large Platelets Plt Morphology Comment RBC Morphology Polychromasia Hypochromasia Basophilic Stippling Microcytosis Macrocytosis Target Cells Tear Drop Cells Ovalocytes Drake Cells Acanthocytes (Spur) Smear Tech's Comments Smear Path Review PT INR APTT D-Dimer High Sensitivty O2 Saturation ABG pH at Pt Temp ABG pCO2 at Pt Temp ABG pO2 at Pt Temp ABG HCO3 ABG Base Excess (Actual) VBG pH VBG pCO2 VBG pO2 VBG HCO3 VBG O2 Saturation VBG Base Excess Sodium Potassium Chloride Carbon Dioxide Anion Gap BUN Creatinine Estim Creat Clear Calc Estimated GFR POC Glucose 244 H 320 H 206 H Random Glucose Fasting Glucose Estimat Average Glucose Hemoglobin A1c % Lactic Acid Lactic Acid F/U @ 2Hr Lactic Acid F/U @ 4Hr Calcium Phosphorus Magnesium Ferritin Total Bilirubin Direct Bilirubin AST ALT Alkaline Phosphatase Lactate Dehydrogenase Total Creatine Kinase Troponin I High Sens C-Reactive Protein B-Natriuretic Peptide Total Protein Albumin Procalcitonin TSH Urine Color Urine Appearance Urine pH Ur Specific Riparius Urine Protein Urine Glucose (UA) Urine Ketones Urine Blood Urine Nitrite Ur Leukocyte Esterase Urine RBC Urine WBC Urine WBC Clumps Ur Squamous Epith Cells Ur Renal Epithelial Cell Uric Acid Crystals Amorphous Sediment Urine Bacteria Urine Mucus Stool Occult Blood Urine Opiates Screen Urine Fentanyl Screen Ur Barbiturates Screen Ur Phencyclidine Scrn Ur Amphetamines Screen U Benzodiazepines Scrn Urine Cocaine Screen U Marijuana (THC) Screen C. difficile Tox B Gene COVID-19 (KRISTOPHER) COVID-19 Clin Com Blood Type Antibody Screen Crossmatch 06/25/21 06/25/21 06/25/21 04:55 04:55 04:55 WBC RBC Hgb Hct MCV MCH MCHC RDW Plt Count MPV Immature Gran % (Auto) Neut % (Auto) Lymph % (Auto) Caroline % (Auto) Eos % (Auto) Baso % (Auto) Lymph # (Auto) Caroline # (Auto) Eos # (Auto) Baso # (Auto) Abs Immat Gran (auto) Absolute Neuts (auto) Absolute Nucleated RBC Nucleated RBC % (auto) Neutrophils % (Manual) Band Neutrophils % Lymphocytes % (Manual) Monocytes % (Manual) Eosinophils % (Manual) Metamyelocytes % Myelocytes % Promyelocytes % Abs Neuts (Manual) Lymphocytes # (Manual) Monocytes # (Manual) Eosinophils # (Manual) Metamyelocytes # Myelocytes # Promyelocytes # Smudge Cells Toxic Vacuolation Platelet Estimate Large Platelets Plt Morphology Comment RBC Morphology Polychromasia Hypochromasia Basophilic Stippling Microcytosis Macrocytosis Target Cells Tear Drop Cells Ovalocytes Esthela Cells Acanthocytes (Spur) Smear Tech's Comments Smear Path Review PT 13.6 H INR 1.2 H APTT 23.6 L D-Dimer High Sensitivty 8385 O2 Saturation ABG pH at Pt Temp ABG pCO2 at Pt Temp ABG pO2 at Pt Temp ABG HCO3 ABG Base Excess (Actual) VBG pH VBG pCO2 VBG pO2 VBG HCO3 VBG O2 Saturation VBG Base Excess Sodium 140 Potassium 4.3 Chloride 101 Carbon Dioxide 28 Anion Gap 15 BUN 30 H Creatinine 0.69 Estim Creat Clear Calc 151.8 Estimated GFR > 60 POC Glucose Random Glucose 166 H Fasting Glucose Estimat Average Glucose Hemoglobin A1c % Lactic Acid Lactic Acid F/U @ 2Hr Lactic Acid F/U @ 4Hr Calcium 9.2 Phosphorus 2.9 Magnesium 2.1 Ferritin 227 Total Bilirubin 0.4 Direct Bilirubin 0.2 AST 10 ALT 6 Alkaline Phosphatase 71 Lactate Dehydrogenase 316 H Total Creatine Kinase Troponin I High Sens C-Reactive Protein 8.38 H B-Natriuretic Peptide 55 Total Protein 6.1 L Albumin 3.2 L Procalcitonin TSH Urine Color Urine Appearance Urine pH Ur Specific Riparius Urine Protein Urine Glucose (UA) Urine Ketones Urine Blood Urine Nitrite Ur Leukocyte Esterase Urine RBC Urine WBC Urine WBC Clumps Ur Squamous Epith Cells Ur Renal Epithelial Cell Uric Acid Crystals Amorphous Sediment Urine Bacteria Urine Mucus Stool Occult Blood Urine Opiates Screen Urine Fentanyl Screen Ur Barbiturates Screen Ur Phencyclidine Scrn Ur Amphetamines Screen U Benzodiazepines Scrn Urine Cocaine Screen U Marijuana (THC) Screen C. difficile Tox B Gene COVID-19 (KRISTOPHER) COVID-19 Clin Com Blood Type Antibody Screen Crossmatch 06/25/21 06/25/21 06/25/21 04:55 05:00 06:19 WBC 6.7 RBC 3.19 L Hgb 7.9 L Hct 26.3 L MCV 82.4 MCH 24.8 L MCHC 30.0 L RDW 17.3 H Plt Count 228 MPV 11.3 Immature Gran % (Auto) Cancelled Neut % (Auto) Cancelled Lymph % (Auto) Cancelled Caroline % (Auto) Cancelled Eos % (Auto) Cancelled Baso % (Auto) Cancelled Lymph # (Auto) Cancelled Caroline # (Auto) Cancelled Eos # (Auto) Cancelled Baso # (Auto) Cancelled Abs Immat Gran (auto) Cancelled Absolute Neuts (auto) Cancelled Absolute Nucleated RBC 0.050 H Nucleated RBC % (auto) 0.7 H Neutrophils % (Manual) 80 H Band Neutrophils % 3 Lymphocytes % (Manual) 7 L Monocytes % (Manual) 3 Eosinophils % (Manual) Metamyelocytes % 5 Myelocytes % 1 Promyelocytes % 1 Abs Neuts (Manual) 5.6 Lymphocytes # (Manual) 0.5 L Monocytes # (Manual) 0.2 Eosinophils # (Manual) Metamyelocytes # 0.3 Myelocytes # 0.1 Promyelocytes # 0.1 Smudge Cells Toxic Vacuolation Platelet Estimate NORMAL Large Platelets PRESENT Plt Morphology Comment NOTED RBC Morphology NOTED Polychromasia 1+ (0-2) Hypochromasia 1+ (5-14) Basophilic Stippling Microcytosis 1+ (5-14) Macrocytosis 1+ (5-14) Target Cells Tear Drop Cells Ovalocytes 1+ (5-14) Drake Cells 1+ (0-2) Acanthocytes (Spur) Smear Tech's Comments Smear Path Review PT INR APTT D-Dimer High Sensitivty O2 Saturation ABG pH at Pt Temp ABG pCO2 at Pt Temp ABG pO2 at Pt Temp ABG HCO3 ABG Base Excess (Actual) VBG pH 7.55 H VBG pCO2 33 VBG pO2 49 VBG HCO3 29 H VBG O2 Saturation 76.0 VBG Base Excess 6.8 Sodium Potassium Chloride Carbon Dioxide Anion Gap BUN Creatinine Estim Creat Clear Calc Estimated GFR POC Glucose 146 H Random Glucose Fasting Glucose Estimat Average Glucose Hemoglobin A1c % Lactic Acid Lactic Acid F/U @ 2Hr Lactic Acid F/U @ 4Hr Calcium Phosphorus Magnesium Ferritin Total Bilirubin Direct Bilirubin AST ALT Alkaline Phosphatase Lactate Dehydrogenase Total Creatine Kinase Troponin I High Sens C-Reactive Protein B-Natriuretic Peptide Total Protein Albumin Procalcitonin TSH Urine Color Urine Appearance Urine pH Ur Specific Riparius Urine Protein Urine Glucose (UA) Urine Ketones Urine Blood Urine Nitrite Ur Leukocyte Esterase Urine RBC Urine WBC Urine WBC Clumps Ur Squamous Epith Cells Ur Renal Epithelial Cell Uric Acid Crystals Amorphous Sediment Urine Bacteria Urine Mucus Stool Occult Blood Urine Opiates Screen Urine Fentanyl Screen Ur Barbiturates Screen Ur Phencyclidine Scrn Ur Amphetamines Screen U Benzodiazepines Scrn Urine Cocaine Screen U Marijuana (THC) Screen C. difficile Tox B Gene COVID-19 (KRISTOPHER) COVID-19 Clin Com Blood Type Antibody Screen Crossmatch 06/25/21 06/25/21 06/25/21 12:05 17:21 23:35 WBC RBC Hgb Hct MCV MCH MCHC RDW Plt Count MPV Immature Gran % (Auto) Neut % (Auto) Lymph % (Auto) Caroline % (Auto) Eos % (Auto) Baso % (Auto) Lymph # (Auto) Caroline # (Auto) Eos # (Auto) Baso # (Auto) Abs Immat Gran (auto) Absolute Neuts (auto) Absolute Nucleated RBC Nucleated RBC % (auto) Neutrophils % (Manual) Band Neutrophils % Lymphocytes % (Manual) Monocytes % (Manual) Eosinophils % (Manual) Metamyelocytes % Myelocytes % Promyelocytes % Abs Neuts (Manual) Lymphocytes # (Manual) Monocytes # (Manual) Eosinophils # (Manual) Metamyelocytes # Myelocytes # Promyelocytes # Smudge Cells Toxic Vacuolation Platelet Estimate Large Platelets Plt Morphology Comment RBC Morphology Polychromasia Hypochromasia Basophilic Stippling Microcytosis Macrocytosis Target Cells Tear Drop Cells Ovalocytes Esthela Cells Acanthocytes (Spur) Smear Tech's Comments Smear Path Review PT INR APTT D-Dimer High Sensitivty O2 Saturation ABG pH at Pt Temp ABG pCO2 at Pt Temp ABG pO2 at Pt Temp ABG HCO3 ABG Base Excess (Actual) VBG pH VBG pCO2 VBG pO2 VBG HCO3 VBG O2 Saturation VBG Base Excess Sodium Potassium Chloride Carbon Dioxide Anion Gap BUN Creatinine Estim Creat Clear Calc Estimated GFR POC Glucose 345 H 292 H 193 H Random Glucose Fasting Glucose Estimat Average Glucose Hemoglobin A1c % Lactic Acid Lactic Acid F/U @ 2Hr Lactic Acid F/U @ 4Hr Calcium Phosphorus Magnesium Ferritin Total Bilirubin Direct Bilirubin AST ALT Alkaline Phosphatase Lactate Dehydrogenase Total Creatine Kinase Troponin I High Sens C-Reactive Protein B-Natriuretic Peptide Total Protein Albumin Procalcitonin TSH Urine Color Urine Appearance Urine pH Ur Specific Riparius Urine Protein Urine Glucose (UA) Urine Ketones Urine Blood Urine Nitrite Ur Leukocyte Esterase Urine RBC Urine WBC Urine WBC Clumps Ur Squamous Epith Cells Ur Renal Epithelial Cell Uric Acid Crystals Amorphous Sediment Urine Bacteria Urine Mucus Stool Occult Blood Urine Opiates Screen Urine Fentanyl Screen Ur Barbiturates Screen Ur Phencyclidine Scrn Ur Amphetamines Screen U Benzodiazepines Scrn Urine Cocaine Screen U Marijuana (THC) Screen C. difficile Tox B Gene COVID-19 (KRISTOPHER) COVID-19 Clin Com Blood Type Antibody Screen Crossmatch 06/26/21 06/26/21 06/26/21 05:45 05:53 05:53 WBC 7.5 RBC 3.12 L Hgb 7.7 L Hct 25.8 L MCV 82.7 MCH 24.7 L MCHC 29.8 L RDW 17.6 H Plt Count 246 MPV 10.0 Immature Gran % (Auto) Cancelled Neut % (Auto) Cancelled Lymph % (Auto) Cancelled Caroline % (Auto) Cancelled Eos % (Auto) Cancelled Baso % (Auto) Cancelled Lymph # (Auto) Cancelled Caroline # (Auto) Cancelled Eos # (Auto) Cancelled Baso # (Auto) Cancelled Abs Immat Gran (auto) Cancelled Absolute Neuts (auto) Cancelled Absolute Nucleated RBC 0.030 H Nucleated RBC % (auto) 0.4 H Neutrophils % (Manual) 80 H Band Neutrophils % 1 L Lymphocytes % (Manual) 9 L Monocytes % (Manual) 6 Eosinophils % (Manual) Metamyelocytes % Myelocytes % 3 Promyelocytes % 1 Abs Neuts (Manual) 6.1 Lymphocytes # (Manual) 0.7 L Monocytes # (Manual) 0.5 Eosinophils # (Manual) Metamyelocytes # Myelocytes # 0.2 Promyelocytes # 0.1 Smudge Cells Toxic Vacuolation Platelet Estimate NORMAL Large Platelets Plt Morphology Comment NORMAL RBC Morphology NOTED Polychromasia 2+ (3-5) Hypochromasia Basophilic Stippling 1+ (0-2) Microcytosis 1+ (5-14) Macrocytosis Target Cells 1+ (5-14) Tear Drop Cells 1+ (0-2) Ovalocytes 1+ (5-14) Esthela Cells Acanthocytes (Spur) Smear Tech's Comments Smear Path Review PT INR APTT D-Dimer High Sensitivty O2 Saturation ABG pH at Pt Temp ABG pCO2 at Pt Temp ABG pO2 at Pt Temp ABG HCO3 ABG Base Excess (Actual) VBG pH VBG pCO2 VBG pO2 VBG HCO3 VBG O2 Saturation VBG Base Excess Sodium 141 Potassium 3.6 Chloride 101 Carbon Dioxide 31 H Anion Gap 13 BUN 26 H Creatinine 0.72 Estim Creat Clear Calc 145.5 Estimated GFR > 60 POC Glucose 193 H Random Glucose 215 H Fasting Glucose Estimat Average Glucose Hemoglobin A1c % Lactic Acid Lactic Acid F/U @ 2Hr Lactic Acid F/U @ 4Hr Calcium 9.4 Phosphorus 2.5 L Magnesium 2.0 Ferritin Total Bilirubin 0.7 Direct Bilirubin AST 20 D ALT 9 Alkaline Phosphatase 73 Lactate Dehydrogenase Total Creatine Kinase Troponin I High Sens C-Reactive Protein B-Natriuretic Peptide Total Protein 6.2 L Albumin 3.8 Procalcitonin TSH Urine Color Urine Appearance Urine pH Ur Specific Riparius Urine Protein Urine Glucose (UA) Urine Ketones Urine Blood Urine Nitrite Ur Leukocyte Esterase Urine RBC Urine WBC Urine WBC Clumps Ur Squamous Epith Cells Ur Renal Epithelial Cell Uric Acid Crystals Amorphous Sediment Urine Bacteria Urine Mucus Stool Occult Blood Urine Opiates Screen Urine Fentanyl Screen Ur Barbiturates Screen Ur Phencyclidine Scrn Ur Amphetamines Screen U Benzodiazepines Scrn Urine Cocaine Screen U Marijuana (THC) Screen C. difficile Tox B Gene COVID-19 (KRISTOPHER) COVID-19 Clin Com Blood Type Antibody Screen Crossmatch 06/26/21 06/26/21 06/26/21 05:56 11:50 17:46 WBC RBC Hgb Hct MCV MCH MCHC RDW Plt Count MPV Immature Gran % (Auto) Neut % (Auto) Lymph % (Auto) Caroline % (Auto) Eos % (Auto) Baso % (Auto) Lymph # (Auto) Caroline # (Auto) Eos # (Auto) Baso # (Auto) Abs Immat Gran (auto) Absolute Neuts (auto) Absolute Nucleated RBC Nucleated RBC % (auto) Neutrophils % (Manual) Band Neutrophils % Lymphocytes % (Manual) Monocytes % (Manual) Eosinophils % (Manual) Metamyelocytes % Myelocytes % Promyelocytes % Abs Neuts (Manual) Lymphocytes # (Manual) Monocytes # (Manual) Eosinophils # (Manual) Metamyelocytes # Myelocytes # Promyelocytes # Smudge Cells Toxic Vacuolation Platelet Estimate Large Platelets Plt Morphology Comment RBC Morphology Polychromasia Hypochromasia Basophilic Stippling Microcytosis Macrocytosis Target Cells Tear Drop Cells Ovalocytes Esthela Cells Acanthocytes (Spur) Smear Tech's Comments Smear Path Review PT INR APTT D-Dimer High Sensitivty O2 Saturation ABG pH at Pt Temp ABG pCO2 at Pt Temp ABG pO2 at Pt Temp ABG HCO3 ABG Base Excess (Actual) VBG pH 7.52 H VBG pCO2 41 VBG pO2 58 VBG HCO3 34 H VBG O2 Saturation 86.0 VBG Base Excess 10.6 Sodium Potassium Chloride Carbon Dioxide Anion Gap BUN Creatinine Estim Creat Clear Calc Estimated GFR POC Glucose 369 H* 278 H Random Glucose Fasting Glucose Estimat Average Glucose Hemoglobin A1c % Lactic Acid Lactic Acid F/U @ 2Hr Lactic Acid F/U @ 4Hr Calcium Phosphorus Magnesium Ferritin Total Bilirubin Direct Bilirubin AST ALT Alkaline Phosphatase Lactate Dehydrogenase Total Creatine Kinase Troponin I High Sens C-Reactive Protein B-Natriuretic Peptide Total Protein Albumin Procalcitonin TSH Urine Color Urine Appearance Urine pH Ur Specific Riparius Urine Protein Urine Glucose (UA) Urine Ketones Urine Blood Urine Nitrite Ur Leukocyte Esterase Urine RBC Urine WBC Urine WBC Clumps Ur Squamous Epith Cells Ur Renal Epithelial Cell Uric Acid Crystals Amorphous Sediment Urine Bacteria Urine Mucus Stool Occult Blood Urine Opiates Screen Urine Fentanyl Screen Ur Barbiturates Screen Ur Phencyclidine Scrn Ur Amphetamines Screen U Benzodiazepines Scrn Urine Cocaine Screen U Marijuana (THC) Screen C. difficile Tox B Gene COVID-19 (KRISTOPHER) COVID-19 Clin Com Blood Type Antibody Screen Crossmatch 06/26/21 06/27/21 06/27/21 23:04 05:15 05:15 WBC 8.1 RBC 3.19 L Hgb 7.7 L Hct 26.6 L MCV 83.4 MCH 24.1 L MCHC 28.9 L RDW 17.3 H Plt Count 293 MPV 10.2 Immature Gran % (Auto) Cancelled Neut % (Auto) Cancelled Lymph % (Auto) Cancelled Caroline % (Auto) Cancelled Eos % (Auto) Cancelled Baso % (Auto) Cancelled Lymph # (Auto) Cancelled Caroline # (Auto) Cancelled Eos # (Auto) Cancelled Baso # (Auto) Cancelled Abs Immat Gran (auto) Cancelled Absolute Neuts (auto) Cancelled Absolute Nucleated RBC 0.000 Nucleated RBC % (auto) 0.0 Neutrophils % (Manual) 84 H Band Neutrophils % 2 L Lymphocytes % (Manual) 6 L Monocytes % (Manual) 3 Eosinophils % (Manual) 3 Metamyelocytes % Myelocytes % 1 Promyelocytes % 1 Abs Neuts (Manual) 7.0 Lymphocytes # (Manual) 0.5 L Monocytes # (Manual) 0.2 Eosinophils # (Manual) 0.2 Metamyelocytes # Myelocytes # 0.1 Promyelocytes # 0.1 Smudge Cells PRESENT Toxic Vacuolation PRESENT Platelet Estimate NORMAL Large Platelets Plt Morphology Comment NORMAL RBC Morphology NOTED Polychromasia 1+ (0-2) Hypochromasia 1+ (5-14) Basophilic Stippling Microcytosis 2+ (15-30) Macrocytosis Target Cells Tear Drop Cells 2+ (3-5) Ovalocytes 1+ (5-14) Drake Cells Acanthocytes (Spur) 1+ (0-2) Smear Tech's Comments Smear Path Review PT INR APTT D-Dimer High Sensitivty O2 Saturation ABG pH at Pt Temp ABG pCO2 at Pt Temp ABG pO2 at Pt Temp ABG HCO3 ABG Base Excess (Actual) VBG pH VBG pCO2 VBG pO2 VBG HCO3 VBG O2 Saturation VBG Base Excess Sodium 141 Potassium 4.1 Chloride 103 Carbon Dioxide 30 H Anion Gap 12 BUN 24 H Creatinine 0.65 Estim Creat Clear Calc 161.2 Estimated GFR > 60 POC Glucose 253 H Random Glucose 239 H Fasting Glucose Estimat Average Glucose Hemoglobin A1c % Lactic Acid Lactic Acid F/U @ 2Hr Lactic Acid F/U @ 4Hr Calcium 9.0 Phosphorus 3.1 Magnesium 2.1 Ferritin Total Bilirubin Direct Bilirubin AST ALT Alkaline Phosphatase Lactate Dehydrogenase Total Creatine Kinase Troponin I High Sens C-Reactive Protein B-Natriuretic Peptide Total Protein Albumin 3.3 L Procalcitonin TSH Urine Color Urine Appearance Urine pH Ur Specific Riparius Urine Protein Urine Glucose (UA) Urine Ketones Urine Blood Urine Nitrite Ur Leukocyte Esterase Urine RBC Urine WBC Urine WBC Clumps Ur Squamous Epith Cells Ur Renal Epithelial Cell Uric Acid Crystals Amorphous Sediment Urine Bacteria Urine Mucus Stool Occult Blood Urine Opiates Screen Urine Fentanyl Screen Ur Barbiturates Screen Ur Phencyclidine Scrn Ur Amphetamines Screen U Benzodiazepines Scrn Urine Cocaine Screen U Marijuana (THC) Screen C. difficile Tox B Gene COVID-19 (KRISTOPHER) COVID-19 Clin Com Blood Type Antibody Screen Crossmatch 06/27/21 06/27/21 06/27/21 05:50 08:37 08:59 WBC RBC Hgb Hct MCV MCH MCHC RDW Plt Count MPV Immature Gran % (Auto) Neut % (Auto) Lymph % (Auto) Caroline % (Auto) Eos % (Auto) Baso % (Auto) Lymph # (Auto) Caroline # (Auto) Eos # (Auto) Baso # (Auto) Abs Immat Gran (auto) Absolute Neuts (auto) Absolute Nucleated RBC Nucleated RBC % (auto) Neutrophils % (Manual) Band Neutrophils % Lymphocytes % (Manual) Monocytes % (Manual) Eosinophils % (Manual) Metamyelocytes % Myelocytes % Promyelocytes % Abs Neuts (Manual) Lymphocytes # (Manual) Monocytes # (Manual) Eosinophils # (Manual) Metamyelocytes # Myelocytes # Promyelocytes # Smudge Cells Toxic Vacuolation Platelet Estimate Large Platelets Plt Morphology Comment RBC Morphology Polychromasia Hypochromasia Basophilic Stippling Microcytosis Macrocytosis Target Cells Tear Drop Cells Ovalocytes Esthela Cells Acanthocytes (Spur) Smear Tech's Comments Smear Path Review PT INR APTT D-Dimer High Sensitivty O2 Saturation ABG pH at Pt Temp ABG pCO2 at Pt Temp ABG pO2 at Pt Temp ABG HCO3 ABG Base Excess (Actual) VBG pH 7.45 H VBG pCO2 38 VBG pO2 51 VBG HCO3 27 H VBG O2 Saturation 77.0 VBG Base Excess 3.2 Sodium Potassium Chloride Carbon Dioxide Anion Gap BUN Creatinine Estim Creat Clear Calc Estimated GFR POC Glucose 193 H 200 H Random Glucose Fasting Glucose Estimat Average Glucose Hemoglobin A1c % Lactic Acid Lactic Acid F/U @ 2Hr Lactic Acid F/U @ 4Hr Calcium Phosphorus Magnesium Ferritin Total Bilirubin Direct Bilirubin AST ALT Alkaline Phosphatase Lactate Dehydrogenase Total Creatine Kinase Troponin I High Sens C-Reactive Protein B-Natriuretic Peptide Total Protein Albumin Procalcitonin TSH Urine Color Urine Appearance Urine pH Ur Specific Riparius Urine Protein Urine Glucose (UA) Urine Ketones Urine Blood Urine Nitrite Ur Leukocyte Esterase Urine RBC Urine WBC Urine WBC Clumps Ur Squamous Epith Cells Ur Renal Epithelial Cell Uric Acid Crystals Amorphous Sediment Urine Bacteria Urine Mucus Stool Occult Blood Urine Opiates Screen Urine Fentanyl Screen Ur Barbiturates Screen Ur Phencyclidine Scrn Ur Amphetamines Screen U Benzodiazepines Scrn Urine Cocaine Screen U Marijuana (THC) Screen C. difficile Tox B Gene COVID-19 (KRISTOPHER) COVID-19 Clin Com Blood Type Antibody Screen Crossmatch 06/27/21 06/27/21 06/27/21 11:40 17:10 23:47 WBC RBC Hgb Hct MCV MCH MCHC RDW Plt Count MPV Immature Gran % (Auto) Neut % (Auto) Lymph % (Auto) Caroline % (Auto) Eos % (Auto) Baso % (Auto) Lymph # (Auto) Caroline # (Auto) Eos # (Auto) Baso # (Auto) Abs Immat Gran (auto) Absolute Neuts (auto) Absolute Nucleated RBC Nucleated RBC % (auto) Neutrophils % (Manual) Band Neutrophils % Lymphocytes % (Manual) Monocytes % (Manual) Eosinophils % (Manual) Metamyelocytes % Myelocytes % Promyelocytes % Abs Neuts (Manual) Lymphocytes # (Manual) Monocytes # (Manual) Eosinophils # (Manual) Metamyelocytes # Myelocytes # Promyelocytes # Smudge Cells Toxic Vacuolation Platelet Estimate Large Platelets Plt Morphology Comment RBC Morphology Polychromasia Hypochromasia Basophilic Stippling Microcytosis Macrocytosis Target Cells Tear Drop Cells Ovalocytes Drake Cells Acanthocytes (Spur) Smear Tech's Comments Smear Path Review PT INR APTT D-Dimer High Sensitivty O2 Saturation ABG pH at Pt Temp ABG pCO2 at Pt Temp ABG pO2 at Pt Temp ABG HCO3 ABG Base Excess (Actual) VBG pH VBG pCO2 VBG pO2 VBG HCO3 VBG O2 Saturation VBG Base Excess Sodium Potassium Chloride Carbon Dioxide Anion Gap BUN Creatinine Estim Creat Clear Calc Estimated GFR POC Glucose 254 H 297 H 215 H Random Glucose Fasting Glucose Estimat Average Glucose Hemoglobin A1c % Lactic Acid Lactic Acid F/U @ 2Hr Lactic Acid F/U @ 4Hr Calcium Phosphorus Magnesium Ferritin Total Bilirubin Direct Bilirubin AST ALT Alkaline Phosphatase Lactate Dehydrogenase Total Creatine Kinase Troponin I High Sens C-Reactive Protein B-Natriuretic Peptide Total Protein Albumin Procalcitonin TSH Urine Color Urine Appearance Urine pH Ur Specific Riparius Urine Protein Urine Glucose (UA) Urine Ketones Urine Blood Urine Nitrite Ur Leukocyte Esterase Urine RBC Urine WBC Urine WBC Clumps Ur Squamous Epith Cells Ur Renal Epithelial Cell Uric Acid Crystals Amorphous Sediment Urine Bacteria Urine Mucus Stool Occult Blood Urine Opiates Screen Urine Fentanyl Screen Ur Barbiturates Screen Ur Phencyclidine Scrn Ur Amphetamines Screen U Benzodiazepines Scrn Urine Cocaine Screen U Marijuana (THC) Screen C. difficile Tox B Gene COVID-19 (KRISTOPHER) COVID-19 Clin Com Blood Type Antibody Screen Crossmatch 06/28/21 06/28/21 06/28/21 05:27 05:27 05:35 WBC 11.8 H RBC 3.25 L Hgb 7.9 L Hct 27.5 L MCV 84.6 MCH 24.3 L MCHC 28.7 L RDW 17.1 H Plt Count 377 D MPV 9.7 Immature Gran % (Auto) 4.1 H Neut % (Auto) 81.5 H Lymph % (Auto) 5.5 L Caroline % (Auto) 7.6 Eos % (Auto) 1.2 Baso % (Auto) 0.1 Lymph # (Auto) 0.7 L Caroline # (Auto) 0.9 Eos # (Auto) 0.1 Baso # (Auto) 0.0 Abs Immat Gran (auto) 0.48 H Absolute Neuts (auto) 9.6 H Absolute Nucleated RBC 0.000 Nucleated RBC % (auto) 0.0 Neutrophils % (Manual) Band Neutrophils % Lymphocytes % (Manual) Monocytes % (Manual) Eosinophils % (Manual) Metamyelocytes % Myelocytes % Promyelocytes % Abs Neuts (Manual) Lymphocytes # (Manual) Monocytes # (Manual) Eosinophils # (Manual) Metamyelocytes # Myelocytes # Promyelocytes # Smudge Cells Toxic Vacuolation Platelet Estimate Large Platelets Plt Morphology Comment RBC Morphology Polychromasia Hypochromasia Basophilic Stippling Microcytosis Macrocytosis Target Cells Tear Drop Cells Ovalocytes Esthela Cells Acanthocytes (Spur) Smear Tech's Comments Smear Path Review PT INR APTT D-Dimer High Sensitivty O2 Saturation ABG pH at Pt Temp ABG pCO2 at Pt Temp ABG pO2 at Pt Temp ABG HCO3 ABG Base Excess (Actual) VBG pH 7.42 VBG pCO2 54 VBG pO2 46 VBG HCO3 35 H VBG O2 Saturation 72.0 VBG Base Excess 10.3 Sodium 142 Potassium 4.7 Chloride 104 Carbon Dioxide 29 Anion Gap 14 BUN 25 H Creatinine 0.63 Estim Creat Clear Calc 166.3 Estimated GFR > 60 POC Glucose Random Glucose 151 H D Fasting Glucose Estimat Average Glucose Hemoglobin A1c % Lactic Acid Lactic Acid F/U @ 2Hr Lactic Acid F/U @ 4Hr Calcium 9.1 Phosphorus 3.5 Magnesium 2.2 Ferritin Total Bilirubin Direct Bilirubin AST ALT Alkaline Phosphatase Lactate Dehydrogenase Total Creatine Kinase Troponin I High Sens C-Reactive Protein B-Natriuretic Peptide Total Protein Albumin 3.2 L Procalcitonin TSH Urine Color Urine Appearance Urine pH Ur Specific Riparius Urine Protein Urine Glucose (UA) Urine Ketones Urine Blood Urine Nitrite Ur Leukocyte Esterase Urine RBC Urine WBC Urine WBC Clumps Ur Squamous Epith Cells Ur Renal Epithelial Cell Uric Acid Crystals Amorphous Sediment Urine Bacteria Urine Mucus Stool Occult Blood Urine Opiates Screen Urine Fentanyl Screen Ur Barbiturates Screen Ur Phencyclidine Scrn Ur Amphetamines Screen U Benzodiazepines Scrn Urine Cocaine Screen U Marijuana (THC) Screen C. difficile Tox B Gene COVID-19 (KRISTOPHER) COVID-19 Clin Com Blood Type Antibody Screen Crossmatch 06/28/21 06/28/21 06/28/21 05:49 11:51 17:58 WBC RBC Hgb Hct MCV MCH MCHC RDW Plt Count MPV Immature Gran % (Auto) Neut % (Auto) Lymph % (Auto) Caroline % (Auto) Eos % (Auto) Baso % (Auto) Lymph # (Auto) Caroline # (Auto) Eos # (Auto) Baso # (Auto) Abs Immat Gran (auto) Absolute Neuts (auto) Absolute Nucleated RBC Nucleated RBC % (auto) Neutrophils % (Manual) Band Neutrophils % Lymphocytes % (Manual) Monocytes % (Manual) Eosinophils % (Manual) Metamyelocytes % Myelocytes % Promyelocytes % Abs Neuts (Manual) Lymphocytes # (Manual) Monocytes # (Manual) Eosinophils # (Manual) Metamyelocytes # Myelocytes # Promyelocytes # Smudge Cells Toxic Vacuolation Platelet Estimate Large Platelets Plt Morphology Comment RBC Morphology Polychromasia Hypochromasia Basophilic Stippling Microcytosis Macrocytosis Target Cells Tear Drop Cells Ovalocytes Esthela Cells Acanthocytes (Spur) Smear Tech's Comments Smear Path Review PT INR APTT D-Dimer High Sensitivty O2 Saturation ABG pH at Pt Temp ABG pCO2 at Pt Temp ABG pO2 at Pt Temp ABG HCO3 ABG Base Excess (Actual) VBG pH VBG pCO2 VBG pO2 VBG HCO3 VBG O2 Saturation VBG Base Excess Sodium Potassium Chloride Carbon Dioxide Anion Gap BUN Creatinine Estim Creat Clear Calc Estimated GFR POC Glucose 165 H 187 H 226 H Random Glucose Fasting Glucose Estimat Average Glucose Hemoglobin A1c % Lactic Acid Lactic Acid F/U @ 2Hr Lactic Acid F/U @ 4Hr Calcium Phosphorus Magnesium Ferritin Total Bilirubin Direct Bilirubin AST ALT Alkaline Phosphatase Lactate Dehydrogenase Total Creatine Kinase Troponin I High Sens C-Reactive Protein B-Natriuretic Peptide Total Protein Albumin Procalcitonin TSH Urine Color Urine Appearance Urine pH Ur Specific Riparius Urine Protein Urine Glucose (UA) Urine Ketones Urine Blood Urine Nitrite Ur Leukocyte Esterase Urine RBC Urine WBC Urine WBC Clumps Ur Squamous Epith Cells Ur Renal Epithelial Cell Uric Acid Crystals Amorphous Sediment Urine Bacteria Urine Mucus Stool Occult Blood Urine Opiates Screen Urine Fentanyl Screen Ur Barbiturates Screen Ur Phencyclidine Scrn Ur Amphetamines Screen U Benzodiazepines Scrn Urine Cocaine Screen U Marijuana (THC) Screen C. difficile Tox B Gene COVID-19 (KRISTOPHER) COVID-19 Clin Com Blood Type Antibody Screen Crossmatch 06/28/21 06/29/21 06/29/21 23:40 05:12 05:12 WBC 10.9 H RBC 3.15 L Hgb 7.8 L Hct 26.8 L MCV 85.1 MCH 24.8 L MCHC 29.1 L RDW 16.7 H Plt Count 431 H MPV 10.0 Immature Gran % (Auto) 2.8 H Neut % (Auto) 80.5 H Lymph % (Auto) 7.7 L Caroline % (Auto) 8.2 Eos % (Auto) 0.7 Baso % (Auto) 0.1 Lymph # (Auto) 0.8 L Caroline # (Auto) 0.9 Eos # (Auto) 0.1 Baso # (Auto) 0.0 Abs Immat Gran (auto) 0.30 H Absolute Neuts (auto) 8.7 H Absolute Nucleated RBC 0.000 Nucleated RBC % (auto) 0.0 Neutrophils % (Manual) Band Neutrophils % Lymphocytes % (Manual) Monocytes % (Manual) Eosinophils % (Manual) Metamyelocytes % Myelocytes % Promyelocytes % Abs Neuts (Manual) Lymphocytes # (Manual) Monocytes # (Manual) Eosinophils # (Manual) Metamyelocytes # Myelocytes # Promyelocytes # Smudge Cells Toxic Vacuolation Platelet Estimate Large Platelets Plt Morphology Comment RBC Morphology Polychromasia Hypochromasia Basophilic Stippling Microcytosis Macrocytosis Target Cells Tear Drop Cells Ovalocytes Drake Cells Acanthocytes (Spur) Smear Tech's Comments Smear Path Review PT INR APTT D-Dimer High Sensitivty O2 Saturation ABG pH at Pt Temp ABG pCO2 at Pt Temp ABG pO2 at Pt Temp ABG HCO3 ABG Base Excess (Actual) VBG pH VBG pCO2 VBG pO2 VBG HCO3 VBG O2 Saturation VBG Base Excess Sodium 143 Potassium 4.5 Chloride 102 Carbon Dioxide 32 H Anion Gap 14 BUN 27 H Creatinine 0.65 Estim Creat Clear Calc 155.8 Estimated GFR > 60 POC Glucose 124 H Random Glucose 123 H Fasting Glucose Estimat Average Glucose Hemoglobin A1c % Lactic Acid Lactic Acid F/U @ 2Hr Lactic Acid F/U @ 4Hr Calcium 9.9 D Phosphorus 3.1 Magnesium 2.2 Ferritin Total Bilirubin Direct Bilirubin AST ALT Alkaline Phosphatase Lactate Dehydrogenase Total Creatine Kinase Troponin I High Sens C-Reactive Protein B-Natriuretic Peptide Total Protein Albumin 4.2 D Procalcitonin TSH Urine Color Urine Appearance Urine pH Ur Specific [place] Urine Protein Urine Glucose (UA) Urine Ketones Urine Blood Urine Nitrite Ur Leukocyte Esterase Urine RBC Urine WBC Urine WBC Clumps Ur Squamous Epith Cells Ur Renal Epithelial Cell Uric Acid Crystals Amorphous Sediment Urine Bacteria Urine Mucus Stool Occult Blood Urine Opiates Screen Urine Fentanyl Screen Ur Barbiturates Screen Ur Phencyclidine Scrn Ur Amphetamines Screen U Benzodiazepines Scrn Urine Cocaine Screen U Marijuana (THC) Screen C. difficile Tox B Gene COVID-19 (KRISTOPHER) COVID-19 Clin Com Blood Type Antibody Screen Crossmatch 06/29/21 06/29/21 06/29/21 05:17 05:36 12:22 WBC RBC Hgb Hct MCV MCH MCHC RDW Plt Count MPV Immature Gran % (Auto) Neut % (Auto) Lymph % (Auto) Caroline % (Auto) Eos % (Auto) Baso % (Auto) Lymph # (Auto) Caroline # (Auto) Eos # (Auto) Baso # (Auto) Abs Immat Gran (auto) Absolute Neuts (auto) Absolute Nucleated RBC Nucleated RBC % (auto) Neutrophils % (Manual) Band Neutrophils % Lymphocytes % (Manual) Monocytes % (Manual) Eosinophils % (Manual) Metamyelocytes % Myelocytes % Promyelocytes % Abs Neuts (Manual) Lymphocytes # (Manual) Monocytes # (Manual) Eosinophils # (Manual) Metamyelocytes # Myelocytes # Promyelocytes # Smudge Cells Toxic Vacuolation Platelet Estimate Large Platelets Plt Morphology Comment RBC Morphology Polychromasia Hypochromasia Basophilic Stippling Microcytosis Macrocytosis Target Cells Tear Drop Cells Ovalocytes Drake Cells Acanthocytes (Spur) Smear Tech's Comments Smear Path Review PT INR APTT D-Dimer High Sensitivty O2 Saturation ABG pH at Pt Temp ABG pCO2 at Pt Temp ABG pO2 at Pt Temp ABG HCO3 ABG Base Excess (Actual) VBG pH 7.42 VBG pCO2 59 VBG pO2 54 VBG HCO3 38 H VBG O2 Saturation 83.0 VBG Base Excess 12.4 Sodium Potassium Chloride Carbon Dioxide Anion Gap BUN Creatinine Estim Creat Clear Calc Estimated GFR POC Glucose 117 H 153 H Random Glucose Fasting Glucose Estimat Average Glucose Hemoglobin A1c % Lactic Acid Lactic Acid F/U @ 2Hr Lactic Acid F/U @ 4Hr Calcium Phosphorus Magnesium Ferritin Total Bilirubin Direct Bilirubin AST ALT Alkaline Phosphatase Lactate Dehydrogenase Total Creatine Kinase Troponin I High Sens C-Reactive Protein B-Natriuretic Peptide Total Protein Albumin Procalcitonin TSH Urine Color Urine Appearance Urine pH Ur Specific [place] Urine Protein Urine Glucose (UA) Urine Ketones Urine Blood Urine Nitrite Ur Leukocyte Esterase Urine RBC Urine WBC Urine WBC Clumps Ur Squamous Epith Cells Ur Renal Epithelial Cell Uric Acid Crystals Amorphous Sediment Urine Bacteria Urine Mucus Stool Occult Blood Urine Opiates Screen Urine Fentanyl Screen Ur Barbiturates Screen Ur Phencyclidine Scrn Ur Amphetamines Screen U Benzodiazepines Scrn Urine Cocaine Screen U Marijuana (THC) Screen C. difficile Tox B Gene COVID-19 (KRISTOPHER) COVID-19 Clin Com Blood Type Antibody Screen Crossmatch 06/29/21 06/30/21 06/30/21 17:52 00:03 05:26 WBC 10.8 RBC 3.41 L Hgb 8.3 L Hct 29.4 L MCV 86.2 MCH 24.3 L MCHC 28.2 L RDW 16.4 H Plt Count 515 H MPV 9.5 Immature Gran % (Auto) 2.8 H Neut % (Auto) 80.6 H Lymph % (Auto) 9.0 L Caroline % (Auto) 6.5 Eos % (Auto) 1.0 Baso % (Auto) 0.1 Lymph # (Auto) 1.0 L Caroline # (Auto) 0.7 Eos # (Auto) 0.1 Baso # (Auto) 0.0 Abs Immat Gran (auto) 0.30 H Absolute Neuts (auto) 8.7 H Absolute Nucleated RBC 0.000 Nucleated RBC % (auto) 0.0 Neutrophils % (Manual) Band Neutrophils % Lymphocytes % (Manual) Monocytes % (Manual) Eosinophils % (Manual) Metamyelocytes % Myelocytes % Promyelocytes % Abs Neuts (Manual) Lymphocytes # (Manual) Monocytes # (Manual) Eosinophils # (Manual) Metamyelocytes # Myelocytes # Promyelocytes # Smudge Cells Toxic Vacuolation Platelet Estimate Large Platelets Plt Morphology Comment RBC Morphology Polychromasia Hypochromasia Basophilic Stippling Microcytosis Macrocytosis Target Cells Tear Drop Cells Ovalocytes Esthela Cells Acanthocytes (Spur) Smear Tech's Comments Smear Path Review PT INR APTT D-Dimer High Sensitivty O2 Saturation ABG pH at Pt Temp ABG pCO2 at Pt Temp ABG pO2 at Pt Temp ABG HCO3 ABG Base Excess (Actual) VBG pH VBG pCO2 VBG pO2 VBG HCO3 VBG O2 Saturation VBG Base Excess Sodium Potassium Chloride Carbon Dioxide Anion Gap BUN Creatinine Estim Creat Clear Calc Estimated GFR POC Glucose 168 H 100 Random Glucose Fasting Glucose Estimat Average Glucose Hemoglobin A1c % Lactic Acid Lactic Acid F/U @ 2Hr Lactic Acid F/U @ 4Hr Calcium Phosphorus Magnesium Ferritin Total Bilirubin Direct Bilirubin AST ALT Alkaline Phosphatase Lactate Dehydrogenase Total Creatine Kinase Troponin I High Sens C-Reactive Protein B-Natriuretic Peptide Total Protein Albumin Procalcitonin TSH Urine Color Urine Appearance Urine pH Ur Specific [place] Urine Protein Urine Glucose (UA) Urine Ketones Urine Blood Urine Nitrite Ur Leukocyte Esterase Urine RBC Urine WBC Urine WBC Clumps Ur Squamous Epith Cells Ur Renal Epithelial Cell Uric Acid Crystals Amorphous Sediment Urine Bacteria Urine Mucus Stool Occult Blood Urine Opiates Screen Urine Fentanyl Screen Ur Barbiturates Screen Ur Phencyclidine Scrn Ur Amphetamines Screen U Benzodiazepines Scrn Urine Cocaine Screen U Marijuana (THC) Screen C. difficile Tox B Gene COVID-19 (KRISTOPHER) COVID-19 Clin Com Blood Type Antibody Screen Crossmatch 06/30/21 06/30/21 06/30/21 05:26 05:31 05:57 WBC RBC Hgb Hct MCV MCH MCHC RDW Plt Count MPV Immature Gran % (Auto) Neut % (Auto) Lymph % (Auto) Caroline % (Auto) Eos % (Auto) Baso % (Auto) Lymph # (Auto) Caroline # (Auto) Eos # (Auto) Baso # (Auto) Abs Immat Gran (auto) Absolute Neuts (auto) Absolute Nucleated RBC Nucleated RBC % (auto) Neutrophils % (Manual) Band Neutrophils % Lymphocytes % (Manual) Monocytes % (Manual) Eosinophils % (Manual) Metamyelocytes % Myelocytes % Promyelocytes % Abs Neuts (Manual) Lymphocytes # (Manual) Monocytes # (Manual) Eosinophils # (Manual) Metamyelocytes # Myelocytes # Promyelocytes # Smudge Cells Toxic Vacuolation Platelet Estimate Large Platelets Plt Morphology Comment RBC Morphology Polychromasia Hypochromasia Basophilic Stippling Microcytosis Macrocytosis Target Cells Tear Drop Cells Ovalocytes Esthela Cells Acanthocytes (Spur) Smear Tech's Comments Smear Path Review PT INR APTT D-Dimer High Sensitivty O2 Saturation ABG pH at Pt Temp ABG pCO2 at Pt Temp ABG pO2 at Pt Temp ABG HCO3 ABG Base Excess (Actual) VBG pH 7.40 VBG pCO2 62 VBG pO2 59 VBG HCO3 39 H VBG O2 Saturation 86.0 VBG Base Excess 12.5 Sodium 145 Potassium 4.4 Chloride 103 Carbon Dioxide 32 H Anion Gap 14 BUN 30 H Creatinine 0.58 Estim Creat Clear Calc 173.4 Estimated GFR > 60 POC Glucose 90 Random Glucose 89 Fasting Glucose Estimat Average Glucose Hemoglobin A1c % Lactic Acid Lactic Acid F/U @ 2Hr Lactic Acid F/U @ 4Hr Calcium 10.1 Phosphorus 3.2 Magnesium 2.2 Ferritin Total Bilirubin Direct Bilirubin AST ALT Alkaline Phosphatase Lactate Dehydrogenase Total Creatine Kinase Troponin I High Sens C-Reactive Protein B-Natriuretic Peptide Total Protein Albumin 3.7 Procalcitonin TSH Urine Color Urine Appearance Urine pH Ur Specific [place] Urine Protein Urine Glucose (UA) Urine Ketones Urine Blood Urine Nitrite Ur Leukocyte Esterase Urine RBC Urine WBC Urine WBC Clumps Ur Squamous Epith Cells Ur Renal Epithelial Cell Uric Acid Crystals Amorphous Sediment Urine Bacteria Urine Mucus Stool Occult Blood Urine Opiates Screen Urine Fentanyl Screen Ur Barbiturates Screen Ur Phencyclidine Scrn Ur Amphetamines Screen U Benzodiazepines Scrn Urine Cocaine Screen U Marijuana (THC) Screen C. difficile Tox B Gene COVID-19 (KRISTOPHER) COVID-19 Clin Com Blood Type Antibody Screen Crossmatch 06/30/21 06/30/21 06/30/21 12:06 16:53 23:50 WBC RBC Hgb Hct MCV MCH MCHC RDW Plt Count MPV Immature Gran % (Auto) Neut % (Auto) Lymph % (Auto) Caroline % (Auto) Eos % (Auto) Baso % (Auto) Lymph # (Auto) Caroline # (Auto) Eos # (Auto) Baso # (Auto) Abs Immat Gran (auto) Absolute Neuts (auto) Absolute Nucleated RBC Nucleated RBC % (auto) Neutrophils % (Manual) Band Neutrophils % Lymphocytes % (Manual) Monocytes % (Manual) Eosinophils % (Manual) Metamyelocytes % Myelocytes % Promyelocytes % Abs Neuts (Manual) Lymphocytes # (Manual) Monocytes # (Manual) Eosinophils # (Manual) Metamyelocytes # Myelocytes # Promyelocytes # Smudge Cells Toxic Vacuolation Platelet Estimate Large Platelets Plt Morphology Comment RBC Morphology Polychromasia Hypochromasia Basophilic Stippling Microcytosis Macrocytosis Target Cells Tear Drop Cells Ovalocytes Drake Cells Acanthocytes (Spur) Smear Tech's Comments Smear Path Review PT INR APTT D-Dimer High Sensitivty O2 Saturation ABG pH at Pt Temp ABG pCO2 at Pt Temp ABG pO2 at Pt Temp ABG HCO3 ABG Base Excess (Actual) VBG pH VBG pCO2 VBG pO2 VBG HCO3 VBG O2 Saturation VBG Base Excess Sodium Potassium Chloride Carbon Dioxide Anion Gap BUN Creatinine Estim Creat Clear Calc Estimated GFR POC Glucose 115 122 H 119 H Random Glucose Fasting Glucose Estimat Average Glucose Hemoglobin A1c % Lactic Acid Lactic Acid F/U @ 2Hr Lactic Acid F/U @ 4Hr Calcium Phosphorus Magnesium Ferritin Total Bilirubin Direct Bilirubin AST ALT Alkaline Phosphatase Lactate Dehydrogenase Total Creatine Kinase Troponin I High Sens C-Reactive Protein B-Natriuretic Peptide Total Protein Albumin Procalcitonin TSH Urine Color Urine Appearance Urine pH Ur Specific [place] Urine Protein Urine Glucose (UA) Urine Ketones Urine Blood Urine Nitrite Ur Leukocyte Esterase Urine RBC Urine WBC Urine WBC Clumps Ur Squamous Epith Cells Ur Renal Epithelial Cell Uric Acid Crystals Amorphous Sediment Urine Bacteria Urine Mucus Stool Occult Blood Urine Opiates Screen Urine Fentanyl Screen Ur Barbiturates Screen Ur Phencyclidine Scrn Ur Amphetamines Screen U Benzodiazepines Scrn Urine Cocaine Screen U Marijuana (THC) Screen C. difficile Tox B Gene COVID-19 (KRISTOPHER) COVID-19 Clin Com Blood Type Antibody Screen Crossmatch 07/01/21 07/01/21 07/01/21 05:30 05:30 05:30 WBC 14.5 H RBC 3.38 L Hgb 8.2 L Hct 28.6 L MCV 84.6 MCH 24.3 L MCHC 28.7 L RDW 16.6 H Plt Count 583 H MPV 9.6 Immature Gran % (Auto) 2.1 H Neut % (Auto) 85.3 H Lymph % (Auto) 6.7 L Caroline % (Auto) 5.0 Eos % (Auto) 0.8 Baso % (Auto) 0.1 Lymph # (Auto) 1.0 L Caroline # (Auto) 0.7 Eos # (Auto) 0.1 Baso # (Auto) 0.0 Abs Immat Gran (auto) 0.30 H Absolute Neuts (auto) 12.3 H Absolute Nucleated RBC 0.000 Nucleated RBC % (auto) 0.0 Neutrophils % (Manual) Band Neutrophils % Lymphocytes % (Manual) Monocytes % (Manual) Eosinophils % (Manual) Metamyelocytes % Myelocytes % Promyelocytes % Abs Neuts (Manual) Lymphocytes # (Manual) Monocytes # (Manual) Eosinophils # (Manual) Metamyelocytes # Myelocytes # Promyelocytes # Smudge Cells Toxic Vacuolation Platelet Estimate Large Platelets Plt Morphology Comment RBC Morphology Polychromasia Hypochromasia Basophilic Stippling Microcytosis Macrocytosis Target Cells Tear Drop Cells Ovalocytes Esthela Cells Acanthocytes (Spur) Smear Tech's Comments Smear Path Review PT INR APTT D-Dimer High Sensitivty O2 Saturation ABG pH at Pt Temp ABG pCO2 at Pt Temp ABG pO2 at Pt Temp ABG HCO3 ABG Base Excess (Actual) VBG pH 7.50 H VBG pCO2 47 VBG pO2 44 VBG HCO3 37 H VBG O2 Saturation 72.0 VBG Base Excess 12.8 Sodium 146 H Potassium 3.7 Chloride 104 Carbon Dioxide 34 H Anion Gap 12 BUN 33 H Creatinine 0.61 Estim Creat Clear Calc 162.8 Estimated GFR > 60 POC Glucose Random Glucose 128 H D Fasting Glucose Estimat Average Glucose Hemoglobin A1c % Lactic Acid Lactic Acid F/U @ 2Hr Lactic Acid F/U @ 4Hr Calcium 9.6 Phosphorus 2.3 L Magnesium 2.0 Ferritin Total Bilirubin Direct Bilirubin AST ALT Alkaline Phosphatase Lactate Dehydrogenase Total Creatine Kinase Troponin I High Sens C-Reactive Protein B-Natriuretic Peptide Total Protein Albumin 3.2 L Procalcitonin TSH Urine Color Urine Appearance Urine pH Ur Specific [place] Urine Protein Urine Glucose (UA) Urine Ketones Urine Blood Urine Nitrite Ur Leukocyte Esterase Urine RBC Urine WBC Urine WBC Clumps Ur Squamous Epith Cells Ur Renal Epithelial Cell Uric Acid Crystals Amorphous Sediment Urine Bacteria Urine Mucus Stool Occult Blood Urine Opiates Screen Urine Fentanyl Screen Ur Barbiturates Screen Ur Phencyclidine Scrn Ur Amphetamines Screen U Benzodiazepines Scrn Urine Cocaine Screen U Marijuana (THC) Screen C. difficile Tox B Gene COVID-19 (KRISTOPHER) COVID-19 Clin Com Blood Type Antibody Screen Crossmatch 07/01/21 07/01/21 07/01/21 06:21 11:11 17:51 WBC RBC Hgb Hct MCV MCH MCHC RDW Plt Count MPV Immature Gran % (Auto) Neut % (Auto) Lymph % (Auto) Caroline % (Auto) Eos % (Auto) Baso % (Auto) Lymph # (Auto) Caroline # (Auto) Eos # (Auto) Baso # (Auto) Abs Immat Gran (auto) Absolute Neuts (auto) Absolute Nucleated RBC Nucleated RBC % (auto) Neutrophils % (Manual) Band Neutrophils % Lymphocytes % (Manual) Monocytes % (Manual) Eosinophils % (Manual) Metamyelocytes % Myelocytes % Promyelocytes % Abs Neuts (Manual) Lymphocytes # (Manual) Monocytes # (Manual) Eosinophils # (Manual) Metamyelocytes # Myelocytes # Promyelocytes # Smudge Cells Toxic Vacuolation Platelet Estimate Large Platelets Plt Morphology Comment RBC Morphology Polychromasia Hypochromasia Basophilic Stippling Microcytosis Macrocytosis Target Cells Tear Drop Cells Ovalocytes Drake Cells Acanthocytes (Spur) Smear Tech's Comments Smear Path Review PT INR APTT D-Dimer High Sensitivty O2 Saturation ABG pH at Pt Temp ABG pCO2 at Pt Temp ABG pO2 at Pt Temp ABG HCO3 ABG Base Excess (Actual) VBG pH VBG pCO2 VBG pO2 VBG HCO3 VBG O2 Saturation VBG Base Excess Sodium Potassium Chloride Carbon Dioxide Anion Gap BUN Creatinine Estim Creat Clear Calc Estimated GFR POC Glucose 141 H 231 H 266 H Random Glucose Fasting Glucose Estimat Average Glucose Hemoglobin A1c % Lactic Acid Lactic Acid F/U @ 2Hr Lactic Acid F/U @ 4Hr Calcium Phosphorus Magnesium Ferritin Total Bilirubin Direct Bilirubin AST ALT Alkaline Phosphatase Lactate Dehydrogenase Total Creatine Kinase Troponin I High Sens C-Reactive Protein B-Natriuretic Peptide Total Protein Albumin Procalcitonin TSH Urine Color Urine Appearance Urine pH Ur Specific [place] Urine Protein Urine Glucose (UA) Urine Ketones Urine Blood Urine Nitrite Ur Leukocyte Esterase Urine RBC Urine WBC Urine WBC Clumps Ur Squamous Epith Cells Ur Renal Epithelial Cell Uric Acid Crystals Amorphous Sediment Urine Bacteria Urine Mucus Stool Occult Blood Urine Opiates Screen Urine Fentanyl Screen Ur Barbiturates Screen Ur Phencyclidine Scrn Ur Amphetamines Screen U Benzodiazepines Scrn Urine Cocaine Screen U Marijuana (THC) Screen C. difficile Tox B Gene COVID-19 (KRISTOPHER) COVID-19 Clin Com Blood Type Antibody Screen Crossmatch 07/01/21 07/02/21 07/02/21 23:47 04:12 04:12 WBC 11.6 H RBC 2.86 L Hgb 7.2 L Hct 24.4 L MCV 85.3 MCH 25.2 L MCHC 29.5 L RDW 17.1 H Plt Count 444 H MPV 9.2 L Immature Gran % (Auto) 1.7 H Neut % (Auto) 82.7 H Lymph % (Auto) 9.2 L Caroline % (Auto) 5.3 Eos % (Auto) 1.0 Baso % (Auto) 0.1 Lymph # (Auto) 1.1 L Caroline # (Auto) 0.6 Eos # (Auto) 0.1 Baso # (Auto) 0.0 Abs Immat Gran (auto) 0.20 H Absolute Neuts (auto) 9.6 H Absolute Nucleated RBC 0.020 H Nucleated RBC % (auto) 0.2 Neutrophils % (Manual) Band Neutrophils % Lymphocytes % (Manual) Monocytes % (Manual) Eosinophils % (Manual) Metamyelocytes % Myelocytes % Promyelocytes % Abs Neuts (Manual) Lymphocytes # (Manual) Monocytes # (Manual) Eosinophils # (Manual) Metamyelocytes # Myelocytes # Promyelocytes # Smudge Cells Toxic Vacuolation Platelet Estimate Large Platelets Plt Morphology Comment RBC Morphology Polychromasia Hypochromasia Basophilic Stippling Microcytosis Macrocytosis Target Cells Tear Drop Cells Ovalocytes Esthela Cells Acanthocytes (Spur) Smear Tech's Comments Smear Path Review PT INR APTT D-Dimer High Sensitivty O2 Saturation ABG pH at Pt Temp ABG pCO2 at Pt Temp ABG pO2 at Pt Temp ABG HCO3 ABG Base Excess (Actual) VBG pH VBG pCO2 VBG pO2 VBG HCO3 VBG O2 Saturation VBG Base Excess Sodium 146 H Potassium 3.6 Chloride 106 Carbon Dioxide 32 H Anion Gap 12 BUN 24 H Creatinine 0.60 Estim Creat Clear Calc 165.5 Estimated GFR > 60 POC Glucose 81 Random Glucose 132 H Fasting Glucose Estimat Average Glucose Hemoglobin A1c % Lactic Acid Lactic Acid F/U @ 2Hr Lactic Acid F/U @ 4Hr Calcium 9.6 Phosphorus 3.4 Magnesium 1.9 Ferritin Total Bilirubin Direct Bilirubin AST ALT Alkaline Phosphatase Lactate Dehydrogenase Total Creatine Kinase Troponin I High Sens C-Reactive Protein B-Natriuretic Peptide Total Protein Albumin 3.8 Procalcitonin TSH Urine Color Urine Appearance Urine pH Ur Specific [place] Urine Protein Urine Glucose (UA) Urine Ketones Urine Blood Urine Nitrite Ur Leukocyte Esterase Urine RBC Urine WBC Urine WBC Clumps Ur Squamous Epith Cells Ur Renal Epithelial Cell Uric Acid Crystals Amorphous Sediment Urine Bacteria Urine Mucus Stool Occult Blood Urine Opiates Screen Urine Fentanyl Screen Ur Barbiturates Screen Ur Phencyclidine Scrn Ur Amphetamines Screen U Benzodiazepines Scrn Urine Cocaine Screen U Marijuana (THC) Screen C. difficile Tox B Gene COVID-19 (KRISTOPHER) COVID-19 Clin Com Blood Type Antibody Screen Crossmatch 07/02/21 07/02/21 07/02/21 04:17 05:45 11:07 WBC RBC Hgb Hct MCV MCH MCHC RDW Plt Count MPV Immature Gran % (Auto) Neut % (Auto) Lymph % (Auto) Caroline % (Auto) Eos % (Auto) Baso % (Auto) Lymph # (Auto) Caroline # (Auto) Eos # (Auto) Baso # (Auto) Abs Immat Gran (auto) Absolute Neuts (auto) Absolute Nucleated RBC Nucleated RBC % (auto) Neutrophils % (Manual) Band Neutrophils % Lymphocytes % (Manual) Monocytes % (Manual) Eosinophils % (Manual) Metamyelocytes % Myelocytes % Promyelocytes % Abs Neuts (Manual) Lymphocytes # (Manual) Monocytes # (Manual) Eosinophils # (Manual) Metamyelocytes # Myelocytes # Promyelocytes # Smudge Cells Toxic Vacuolation Platelet Estimate Large Platelets Plt Morphology Comment RBC Morphology Polychromasia Hypochromasia Basophilic Stippling Microcytosis Macrocytosis Target Cells Tear Drop Cells Ovalocytes Drake Cells Acanthocytes (Spur) Smear Tech's Comments Smear Path Review PT INR APTT D-Dimer High Sensitivty O2 Saturation ABG pH at Pt Temp ABG pCO2 at Pt Temp ABG pO2 at Pt Temp ABG HCO3 ABG Base Excess (Actual) VBG pH 7.52 H VBG pCO2 44 VBG pO2 50 VBG HCO3 36 H VBG O2 Saturation 80.0 VBG Base Excess 12.5 Sodium Potassium Chloride Carbon Dioxide Anion Gap BUN Creatinine Estim Creat Clear Calc Estimated GFR POC Glucose 163 H 226 H Random Glucose Fasting Glucose Estimat Average Glucose Hemoglobin A1c % Lactic Acid Lactic Acid F/U @ 2Hr Lactic Acid F/U @ 4Hr Calcium Phosphorus Magnesium Ferritin Total Bilirubin Direct Bilirubin AST ALT Alkaline Phosphatase Lactate Dehydrogenase Total Creatine Kinase Troponin I High Sens C-Reactive Protein B-Natriuretic Peptide Total Protein Albumin Procalcitonin TSH Urine Color Urine Appearance Urine pH Ur Specific [place] Urine Protein Urine Glucose (UA) Urine Ketones Urine Blood Urine Nitrite Ur Leukocyte Esterase Urine RBC Urine WBC Urine WBC Clumps Ur Squamous Epith Cells Ur Renal Epithelial Cell Uric Acid Crystals Amorphous Sediment Urine Bacteria Urine Mucus Stool Occult Blood Urine Opiates Screen Urine Fentanyl Screen Ur Barbiturates Screen Ur Phencyclidine Scrn Ur Amphetamines Screen U Benzodiazepines Scrn Urine Cocaine Screen U Marijuana (THC) Screen C. difficile Tox B Gene COVID-19 (KRISTOPHER) COVID-19 Clin Com Blood Type Antibody Screen Crossmatch 07/02/21 07/02/21 07/03/21 11:44 17:43 00:31 WBC RBC Hgb Hct MCV MCH MCHC RDW Plt Count MPV Immature Gran % (Auto) Neut % (Auto) Lymph % (Auto) Caroline % (Auto) Eos % (Auto) Baso % (Auto) Lymph # (Auto) Caroline # (Auto) Eos # (Auto) Baso # (Auto) Abs Immat Gran (auto) Absolute Neuts (auto) Absolute Nucleated RBC Nucleated RBC % (auto) Neutrophils % (Manual) Band Neutrophils % Lymphocytes % (Manual) Monocytes % (Manual) Eosinophils % (Manual) Metamyelocytes % Myelocytes % Promyelocytes % Abs Neuts (Manual) Lymphocytes # (Manual) Monocytes # (Manual) Eosinophils # (Manual) Metamyelocytes # Myelocytes # Promyelocytes # Smudge Cells Toxic Vacuolation Platelet Estimate Large Platelets Plt Morphology Comment RBC Morphology Polychromasia Hypochromasia Basophilic Stippling Microcytosis Macrocytosis Target Cells Tear Drop Cells Ovalocytes Esthela Cells Acanthocytes (Spur) Smear Tech's Comments Smear Path Review PT INR APTT D-Dimer High Sensitivty O2 Saturation ABG pH at Pt Temp ABG pCO2 at Pt Temp ABG pO2 at Pt Temp ABG HCO3 ABG Base Excess (Actual) VBG pH VBG pCO2 VBG pO2 VBG HCO3 VBG O2 Saturation VBG Base Excess Sodium Potassium Chloride Carbon Dioxide Anion Gap BUN Creatinine Estim Creat Clear Calc Estimated GFR POC Glucose 259 H 345 H 290 H Random Glucose Fasting Glucose Estimat Average Glucose Hemoglobin A1c % Lactic Acid Lactic Acid F/U @ 2Hr Lactic Acid F/U @ 4Hr Calcium Phosphorus Magnesium Ferritin Total Bilirubin Direct Bilirubin AST ALT Alkaline Phosphatase Lactate Dehydrogenase Total Creatine Kinase Troponin I High Sens C-Reactive Protein B-Natriuretic Peptide Total Protein Albumin Procalcitonin TSH Urine Color Urine Appearance Urine pH Ur Specific [place]ip[place] Urine Protein Urine Glucose (UA) Urine Ketones Urine Blood Urine Nitrite Ur Leukocyte Esterase Urine RBC Urine WBC Urine WBC Clumps Ur Squamous Epith Cells Ur Renal Epithelial Cell Uric Acid Crystals Amorphous Sediment Urine Bacteria Urine Mucus Stool Occult Blood Urine Opiates Screen Urine Fentanyl Screen Ur Barbiturates Screen Ur Phencyclidine Scrn Ur Amphetamines Screen U Benzodiazepines Scrn Urine Cocaine Screen U Marijuana (THC) Screen C. difficile Tox B Gene COVID-19 (KRISTOPHER) COVID-19 Clin Com Blood Type Antibody Screen Crossmatch 07/03/21 07/03/21 07/03/21 05:10 05:13 05:13 WBC 8.8 RBC 2.77 L Hgb 6.8 L* Hct 23.8 L MCV 85.9 MCH 24.5 L MCHC 28.6 L RDW 16.4 H Plt Count 445 H MPV 9.8 Immature Gran % (Auto) Neut % (Auto) Lymph % (Auto) Caroline % (Auto) Eos % (Auto) Baso % (Auto) Lymph # (Auto) Caroline # (Auto) Eos # (Auto) Baso # (Auto) Abs Immat Gran (auto) Absolute Neuts (auto) Absolute Nucleated RBC 0.000 Nucleated RBC % (auto) 0.0 Neutrophils % (Manual) Band Neutrophils % Lymphocytes % (Manual) Monocytes % (Manual) Eosinophils % (Manual) Metamyelocytes % Myelocytes % Promyelocytes % Abs Neuts (Manual) Lymphocytes # (Manual) Monocytes # (Manual) Eosinophils # (Manual) Metamyelocytes # Myelocytes # Promyelocytes # Smudge Cells Toxic Vacuolation Platelet Estimate Large Platelets Plt Morphology Comment RBC Morphology Polychromasia Hypochromasia Basophilic Stippling Microcytosis Macrocytosis Target Cells Tear Drop Cells Ovalocytes Esthela Cells Acanthocytes (Spur) Smear Tech's Comments Smear Path Review SEE NOTE PT INR APTT D-Dimer High Sensitivty 2576 O2 Saturation ABG pH at Pt Temp ABG pCO2 at Pt Temp ABG pO2 at Pt Temp ABG HCO3 ABG Base Excess (Actual) VBG pH VBG pCO2 VBG pO2 VBG HCO3 VBG O2 Saturation VBG Base Excess Sodium Potassium Chloride Carbon Dioxide Anion Gap BUN Creatinine Estim Creat Clear Calc Estimated GFR POC Glucose Random Glucose Fasting Glucose Estimat Average Glucose Hemoglobin A1c % Lactic Acid Lactic Acid F/U @ 2Hr Lactic Acid F/U @ 4Hr Calcium Phosphorus Magnesium Ferritin Total Bilirubin Direct Bilirubin AST ALT Alkaline Phosphatase Lactate Dehydrogenase Total Creatine Kinase Troponin I High Sens C-Reactive Protein B-Natriuretic Peptide Total Protein Albumin Procalcitonin TSH Urine Color Urine Appearance Urine pH Ur Specific Riparius Urine Protein Urine Glucose (UA) Urine Ketones Urine Blood Urine Nitrite Ur Leukocyte Esterase Urine RBC Urine WBC Urine WBC Clumps Ur Squamous Epith Cells Ur Renal Epithelial Cell Uric Acid Crystals Amorphous Sediment Urine Bacteria Urine Mucus Stool Occult Blood NEGATIVE Urine Opiates Screen Urine Fentanyl Screen Ur Barbiturates Screen Ur Phencyclidine Scrn Ur Amphetamines Screen U Benzodiazepines Scrn Urine Cocaine Screen U Marijuana (THC) Screen C. difficile Tox B Gene COVID-19 (KRISTOPHER) COVID-19 Clin Com Blood Type Antibody Screen Crossmatch 07/03/21 07/03/21 07/03/21 05:13 05:13 05:13 WBC RBC Hgb Hct MCV MCH MCHC RDW Plt Count MPV Immature Gran % (Auto) Neut % (Auto) Lymph % (Auto) Caroline % (Auto) Eos % (Auto) Baso % (Auto) Lymph # (Auto) Caroline # (Auto) Eos # (Auto) Baso # (Auto) Abs Immat Gran (auto) Absolute Neuts (auto) Absolute Nucleated RBC Nucleated RBC % (auto) Neutrophils % (Manual) Band Neutrophils % Lymphocytes % (Manual) Monocytes % (Manual) Eosinophils % (Manual) Metamyelocytes % Myelocytes % Promyelocytes % Abs Neuts (Manual) Lymphocytes # (Manual) Monocytes # (Manual) Eosinophils # (Manual) Metamyelocytes # Myelocytes # Promyelocytes # Smudge Cells Toxic Vacuolation Platelet Estimate Large Platelets Plt Morphology Comment RBC Morphology Polychromasia Hypochromasia Basophilic Stippling Microcytosis Macrocytosis Target Cells Tear Drop Cells Ovalocytes Drake Cells Acanthocytes (Spur) Smear Tech's Comments Smear Path Review PT INR APTT D-Dimer High Sensitivty O2 Saturation ABG pH at Pt Temp ABG pCO2 at Pt Temp ABG pO2 at Pt Temp ABG HCO3 ABG Base Excess (Actual) VBG pH VBG pCO2 VBG pO2 VBG HCO3 VBG O2 Saturation VBG Base Excess Sodium 144 Potassium 4.8 D Chloride 105 Carbon Dioxide 34 H Anion Gap 10 L BUN 30 H Creatinine 0.68 Estim Creat Clear Calc 147.7 Estimated GFR > 60 POC Glucose Random Glucose 277 H D Fasting Glucose Estimat Average Glucose Hemoglobin A1c % Lactic Acid Lactic Acid F/U @ 2Hr Lactic Acid F/U @ 4Hr Calcium 9.4 Phosphorus 3.8 Magnesium 2.2 Ferritin 251 H Total Bilirubin 0.3 Direct Bilirubin AST 10 D ALT 14 Alkaline Phosphatase 71 Lactate Dehydrogenase 233 Total Creatine Kinase Troponin I High Sens C-Reactive Protein 14.92 H B-Natriuretic Peptide Total Protein 6.0 L Albumin 3.4 L Procalcitonin 0.15 TSH Urine Color Urine Appearance Urine pH Ur Specific Riparius Urine Protein Urine Glucose (UA) Urine Ketones Urine Blood Urine Nitrite Ur Leukocyte Esterase Urine RBC Urine WBC Urine WBC Clumps Ur Squamous Epith Cells Ur Renal Epithelial Cell Uric Acid Crystals Amorphous Sediment Urine Bacteria Urine Mucus Stool Occult Blood Urine Opiates Screen Urine Fentanyl Screen Ur Barbiturates Screen Ur Phencyclidine Scrn Ur Amphetamines Screen U Benzodiazepines Scrn Urine Cocaine Screen U Marijuana (THC) Screen C. difficile Tox B Gene COVID-19 (KRISTOPHER) COVID-19 Clin Com Blood Type O Positive Antibody Screen NEGATIVE Crossmatch See Detail 07/03/21 07/03/21 07/03/21 05:17 17:20 19:23 WBC RBC Hgb Hct MCV MCH MCHC RDW Plt Count MPV Immature Gran % (Auto) Neut % (Auto) Lymph % (Auto) Caroline % (Auto) Eos % (Auto) Baso % (Auto) Lymph # (Auto) Caroline # (Auto) Eos # (Auto) Baso # (Auto) Abs Immat Gran (auto) Absolute Neuts (auto) Absolute Nucleated RBC Nucleated RBC % (auto) Neutrophils % (Manual) Band Neutrophils % Lymphocytes % (Manual) Monocytes % (Manual) Eosinophils % (Manual) Metamyelocytes % Myelocytes % Promyelocytes % Abs Neuts (Manual) Lymphocytes # (Manual) Monocytes # (Manual) Eosinophils # (Manual) Metamyelocytes # Myelocytes # Promyelocytes # Smudge Cells Toxic Vacuolation Platelet Estimate Large Platelets Plt Morphology Comment RBC Morphology Polychromasia Hypochromasia Basophilic Stippling Microcytosis Macrocytosis Target Cells Tear Drop Cells Ovalocytes Drake Cells Acanthocytes (Spur) Smear Tech's Comments Smear Path Review PT INR APTT D-Dimer High Sensitivty O2 Saturation ABG pH at Pt Temp ABG pCO2 at Pt Temp ABG pO2 at Pt Temp ABG HCO3 ABG Base Excess (Actual) VBG pH 7.40 VBG pCO2 62 VBG pO2 49 VBG HCO3 39 H VBG O2 Saturation 76.0 VBG Base Excess 12.7 Sodium Potassium Chloride Carbon Dioxide Anion Gap BUN Creatinine Estim Creat Clear Calc Estimated GFR POC Glucose 329 H 308 H Random Glucose Fasting Glucose Estimat Average Glucose Hemoglobin A1c % Lactic Acid Lactic Acid F/U @ 2Hr Lactic Acid F/U @ 4Hr Calcium Phosphorus Magnesium Ferritin Total Bilirubin Direct Bilirubin AST ALT Alkaline Phosphatase Lactate Dehydrogenase Total Creatine Kinase Troponin I High Sens C-Reactive Protein B-Natriuretic Peptide Total Protein Albumin Procalcitonin TSH Urine Color Urine Appearance Urine pH Ur Specific Riparius Urine Protein Urine Glucose (UA) Urine Ketones Urine Blood Urine Nitrite Ur Leukocyte Esterase Urine RBC Urine WBC Urine WBC Clumps Ur Squamous Epith Cells Ur Renal Epithelial Cell Uric Acid Crystals Amorphous Sediment Urine Bacteria Urine Mucus Stool Occult Blood Urine Opiates Screen Urine Fentanyl Screen Ur Barbiturates Screen Ur Phencyclidine Scrn Ur Amphetamines Screen U Benzodiazepines Scrn Urine Cocaine Screen U Marijuana (THC) Screen C. difficile Tox B Gene COVID-19 (KRISTOPHER) COVID-19 Clin Com Blood Type Antibody Screen Crossmatch 07/03/21 07/03/21 07/04/21 21:47 23:33 05:00 WBC 9.2 RBC 3.17 L Hgb 7.9 L Hct 27.3 L MCV 86.1 MCH 24.9 L MCHC 28.9 L RDW 16.0 Plt Count 462 H MPV 9.8 Immature Gran % (Auto) Neut % (Auto) Lymph % (Auto) Caroline % (Auto) Eos % (Auto) Baso % (Auto) Lymph # (Auto) Caroline # (Auto) Eos # (Auto) Baso # (Auto) Abs Immat Gran (auto) Absolute Neuts (auto) Absolute Nucleated RBC 0.000 Nucleated RBC % (auto) 0.0 Neutrophils % (Manual) Band Neutrophils % Lymphocytes % (Manual) Monocytes % (Manual) Eosinophils % (Manual) Metamyelocytes % Myelocytes % Promyelocytes % Abs Neuts (Manual) Lymphocytes # (Manual) Monocytes # (Manual) Eosinophils # (Manual) Metamyelocytes # Myelocytes # Promyelocytes # Smudge Cells Toxic Vacuolation Platelet Estimate Large Platelets Plt Morphology Comment RBC Morphology Polychromasia Hypochromasia Basophilic Stippling Microcytosis Macrocytosis Target Cells Tear Drop Cells Ovalocytes Esthela Cells Acanthocytes (Spur) Smear Tech's Comments Smear Path Review PT INR APTT D-Dimer High Sensitivty O2 Saturation ABG pH at Pt Temp ABG pCO2 at Pt Temp ABG pO2 at Pt Temp ABG HCO3 ABG Base Excess (Actual) VBG pH VBG pCO2 VBG pO2 VBG HCO3 VBG O2 Saturation VBG Base Excess Sodium Potassium Chloride Carbon Dioxide Anion Gap BUN Creatinine Estim Creat Clear Calc Estimated GFR POC Glucose 218 H 156 H Random Glucose Fasting Glucose Estimat Average Glucose Hemoglobin A1c % Lactic Acid Lactic Acid F/U @ 2Hr Lactic Acid F/U @ 4Hr Calcium Phosphorus Magnesium Ferritin Total Bilirubin Direct Bilirubin AST ALT Alkaline Phosphatase Lactate Dehydrogenase Total Creatine Kinase Troponin I High Sens C-Reactive Protein B-Natriuretic Peptide Total Protein Albumin Procalcitonin TSH Urine Color Urine Appearance Urine pH Ur Specific Riparius Urine Protein Urine Glucose (UA) Urine Ketones Urine Blood Urine Nitrite Ur Leukocyte Esterase Urine RBC Urine WBC Urine WBC Clumps Ur Squamous Epith Cells Ur Renal Epithelial Cell Uric Acid Crystals Amorphous Sediment Urine Bacteria Urine Mucus Stool Occult Blood Urine Opiates Screen Urine Fentanyl Screen Ur Barbiturates Screen Ur Phencyclidine Scrn Ur Amphetamines Screen U Benzodiazepines Scrn Urine Cocaine Screen U Marijuana (THC) Screen C. difficile Tox B Gene COVID-19 (KRISTOPHER) COVID-19 Clin Com Blood Type Antibody Screen Crossmatch 07/04/21 07/04/21 07/04/21 05:30 05:35 05:36 WBC RBC Hgb Hct MCV MCH MCHC RDW Plt Count MPV Immature Gran % (Auto) Neut % (Auto) Lymph % (Auto) Caroline % (Auto) Eos % (Auto) Baso % (Auto) Lymph # (Auto) Caroline # (Auto) Eos # (Auto) Baso # (Auto) Abs Immat Gran (auto) Absolute Neuts (auto) Absolute Nucleated RBC Nucleated RBC % (auto) Neutrophils % (Manual) Band Neutrophils % Lymphocytes % (Manual) Monocytes % (Manual) Eosinophils % (Manual) Metamyelocytes % Myelocytes % Promyelocytes % Abs Neuts (Manual) Lymphocytes # (Manual) Monocytes # (Manual) Eosinophils # (Manual) Metamyelocytes # Myelocytes # Promyelocytes # Smudge Cells Toxic Vacuolation Platelet Estimate Large Platelets Plt Morphology Comment RBC Morphology Polychromasia Hypochromasia Basophilic Stippling Microcytosis Macrocytosis Target Cells Tear Drop Cells Ovalocytes Drake Cells Acanthocytes (Spur) Smear Tech's Comments Smear Path Review PT INR APTT D-Dimer High Sensitivty O2 Saturation ABG pH at Pt Temp ABG pCO2 at Pt Temp ABG pO2 at Pt Temp ABG HCO3 ABG Base Excess (Actual) VBG pH 7.37 VBG pCO2 58 VBG pO2 47 VBG HCO3 34 H VBG O2 Saturation 75.0 VBG Base Excess 8.1 Sodium 139 Potassium 4.8 Chloride 103 Carbon Dioxide 29 Anion Gap 12 BUN 31 H Creatinine 0.67 Estim Creat Clear Calc 151.2 Estimated GFR > 60 POC Glucose 207 H Random Glucose 237 H Fasting Glucose Estimat Average Glucose Hemoglobin A1c % Lactic Acid Lactic Acid F/U @ 2Hr Lactic Acid F/U @ 4Hr Calcium 9.5 Phosphorus Magnesium 2.1 Ferritin Total Bilirubin Direct Bilirubin AST ALT Alkaline Phosphatase Lactate Dehydrogenase Total Creatine Kinase Troponin I High Sens C-Reactive Protein B-Natriuretic Peptide Total Protein Albumin Procalcitonin TSH Urine Color Urine Appearance Urine pH Ur Specific Riparius Urine Protein Urine Glucose (UA) Urine Ketones Urine Blood Urine Nitrite Ur Leukocyte Esterase Urine RBC Urine WBC Urine WBC Clumps Ur Squamous Epith Cells Ur Renal Epithelial Cell Uric Acid Crystals Amorphous Sediment Urine Bacteria Urine Mucus Stool Occult Blood Urine Opiates Screen Urine Fentanyl Screen Ur Barbiturates Screen Ur Phencyclidine Scrn Ur Amphetamines Screen U Benzodiazepines Scrn Urine Cocaine Screen U Marijuana (THC) Screen C. difficile Tox B Gene COVID-19 (KRISTOPHER) COVID-19 Clin Com Blood Type Antibody Screen Crossmatch 07/04/21 07/04/21 07/04/21 11:56 17:44 20:18 WBC RBC Hgb Hct MCV MCH MCHC RDW Plt Count MPV Immature Gran % (Auto) Neut % (Auto) Lymph % (Auto) Caroline % (Auto) Eos % (Auto) Baso % (Auto) Lymph # (Auto) Caroline # (Auto) Eos # (Auto) Baso # (Auto) Abs Immat Gran (auto) Absolute Neuts (auto) Absolute Nucleated RBC Nucleated RBC % (auto) Neutrophils % (Manual) Band Neutrophils % Lymphocytes % (Manual) Monocytes % (Manual) Eosinophils % (Manual) Metamyelocytes % Myelocytes % Promyelocytes % Abs Neuts (Manual) Lymphocytes # (Manual) Monocytes # (Manual) Eosinophils # (Manual) Metamyelocytes # Myelocytes # Promyelocytes # Smudge Cells Toxic Vacuolation Platelet Estimate Large Platelets Plt Morphology Comment RBC Morphology Polychromasia Hypochromasia Basophilic Stippling Microcytosis Macrocytosis Target Cells Tear Drop Cells Ovalocytes Esthela Cells Acanthocytes (Spur) Smear Tech's Comments Smear Path Review PT INR APTT D-Dimer High Sensitivty O2 Saturation ABG pH at Pt Temp ABG pCO2 at Pt Temp ABG pO2 at Pt Temp ABG HCO3 ABG Base Excess (Actual) VBG pH VBG pCO2 VBG pO2 VBG HCO3 VBG O2 Saturation VBG Base Excess Sodium Potassium Chloride Carbon Dioxide Anion Gap BUN Creatinine Estim Creat Clear Calc Estimated GFR POC Glucose 265 H 338 H 300 H Random Glucose Fasting Glucose Estimat Average Glucose Hemoglobin A1c % Lactic Acid Lactic Acid F/U @ 2Hr Lactic Acid F/U @ 4Hr Calcium Phosphorus Magnesium Ferritin Total Bilirubin Direct Bilirubin AST ALT Alkaline Phosphatase Lactate Dehydrogenase Total Creatine Kinase Troponin I High Sens C-Reactive Protein B-Natriuretic Peptide Total Protein Albumin Procalcitonin TSH Urine Color Urine Appearance Urine pH Ur Specific Riparius Urine Protein Urine Glucose (UA) Urine Ketones Urine Blood Urine Nitrite Ur Leukocyte Esterase Urine RBC Urine WBC Urine WBC Clumps Ur Squamous Epith Cells Ur Renal Epithelial Cell Uric Acid Crystals Amorphous Sediment Urine Bacteria Urine Mucus Stool Occult Blood Urine Opiates Screen Urine Fentanyl Screen Ur Barbiturates Screen Ur Phencyclidine Scrn Ur Amphetamines Screen U Benzodiazepines Scrn Urine Cocaine Screen U Marijuana (THC) Screen C. difficile Tox B Gene COVID-19 (KRISTOPHER) COVID-19 Clin Com Blood Type Antibody Screen Crossmatch 07/04/21 07/05/21 07/05/21 23:23 05:20 05:20 WBC 12.2 H RBC 4.10 L D Hgb 10.1 L D Hct 33.9 L D MCV 82.7 MCH 24.6 L MCHC 29.8 L RDW 16.2 H Plt Count 598 H D MPV 9.4 Immature Gran % (Auto) Neut % (Auto) Lymph % (Auto) Caroline % (Auto) Eos % (Auto) Baso % (Auto) Lymph # (Auto) Caroline # (Auto) Eos # (Auto) Baso # (Auto) Abs Immat Gran (auto) Absolute Neuts (auto) Absolute Nucleated RBC 0.000 Nucleated RBC % (auto) 0.0 Neutrophils % (Manual) Band Neutrophils % Lymphocytes % (Manual) Monocytes % (Manual) Eosinophils % (Manual) Metamyelocytes % Myelocytes % Promyelocytes % Abs Neuts (Manual) Lymphocytes # (Manual) Monocytes # (Manual) Eosinophils # (Manual) Metamyelocytes # Myelocytes # Promyelocytes # Smudge Cells Toxic Vacuolation Platelet Estimate Large Platelets Plt Morphology Comment RBC Morphology Polychromasia Hypochromasia Basophilic Stippling Microcytosis Macrocytosis Target Cells Tear Drop Cells Ovalocytes Esthela Cells Acanthocytes (Spur) Smear Tech's Comments Smear Path Review PT INR APTT D-Dimer High Sensitivty O2 Saturation ABG pH at Pt Temp ABG pCO2 at Pt Temp ABG pO2 at Pt Temp ABG HCO3 ABG Base Excess (Actual) VBG pH VBG pCO2 VBG pO2 VBG HCO3 VBG O2 Saturation VBG Base Excess Sodium 136 Potassium 4.5 Chloride 101 Carbon Dioxide 28 Anion Gap 12 BUN 27 H Creatinine 0.68 Estim Creat Clear Calc 149.0 Estimated GFR > 60 POC Glucose 213 H Random Glucose 219 H Fasting Glucose Estimat Average Glucose Hemoglobin A1c % Lactic Acid Lactic Acid F/U @ 2Hr Lactic Acid F/U @ 4Hr Calcium 9.9 Phosphorus 2.8 Magnesium 2.1 Ferritin Total Bilirubin 0.2 Direct Bilirubin AST 11 ALT 17 Alkaline Phosphatase 83 Lactate Dehydrogenase Total Creatine Kinase Troponin I High Sens C-Reactive Protein B-Natriuretic Peptide Total Protein 6.9 Albumin 3.6 Procalcitonin TSH Urine Color Urine Appearance Urine pH Ur Specific Riparius Urine Protein Urine Glucose (UA) Urine Ketones Urine Blood Urine Nitrite Ur Leukocyte Esterase Urine RBC Urine WBC Urine WBC Clumps Ur Squamous Epith Cells Ur Renal Epithelial Cell Uric Acid Crystals Amorphous Sediment Urine Bacteria Urine Mucus Stool Occult Blood Urine Opiates Screen Urine Fentanyl Screen Ur Barbiturates Screen Ur Phencyclidine Scrn Ur Amphetamines Screen U Benzodiazepines Scrn Urine Cocaine Screen U Marijuana (THC) Screen C. difficile Tox B Gene COVID-19 (KRISTOPHER) COVID-19 Clin Com Blood Type Antibody Screen Crossmatch 07/05/21 07/05/21 07/05/21 05:20 05:26 05:52 WBC RBC Hgb Hct MCV MCH MCHC RDW Plt Count MPV Immature Gran % (Auto) Neut % (Auto) Lymph % (Auto) Caroline % (Auto) Eos % (Auto) Baso % (Auto) Lymph # (Auto) Caroline # (Auto) Eos # (Auto) Baso # (Auto) Abs Immat Gran (auto) Absolute Neuts (auto) Absolute Nucleated RBC Nucleated RBC % (auto) Neutrophils % (Manual) Band Neutrophils % Lymphocytes % (Manual) Monocytes % (Manual) Eosinophils % (Manual) Metamyelocytes % Myelocytes % Promyelocytes % Abs Neuts (Manual) Lymphocytes # (Manual) Monocytes # (Manual) Eosinophils # (Manual) Metamyelocytes # Myelocytes # Promyelocytes # Smudge Cells Toxic Vacuolation Platelet Estimate Large Platelets Plt Morphology Comment RBC Morphology Polychromasia Hypochromasia Basophilic Stippling Microcytosis Macrocytosis Target Cells Tear Drop Cells Ovalocytes Esthela Cells Acanthocytes (Spur) Smear Tech's Comments Smear Path Review PT INR APTT D-Dimer High Sensitivty 3216 O2 Saturation ABG pH at Pt Temp ABG pCO2 at Pt Temp ABG pO2 at Pt Temp ABG HCO3 ABG Base Excess (Actual) VBG pH 7.43 VBG pCO2 41 VBG pO2 47 VBG HCO3 28 H VBG O2 Saturation 77.0 VBG Base Excess 3.7 Sodium Potassium Chloride Carbon Dioxide Anion Gap BUN Creatinine Estim Creat Clear Calc Estimated GFR POC Glucose 213 H Random Glucose Fasting Glucose Estimat Average Glucose Hemoglobin A1c % Lactic Acid Lactic Acid F/U @ 2Hr Lactic Acid F/U @ 4Hr Calcium Phosphorus Magnesium Ferritin Total Bilirubin Direct Bilirubin AST ALT Alkaline Phosphatase Lactate Dehydrogenase Total Creatine Kinase Troponin I High Sens C-Reactive Protein B-Natriuretic Peptide Total Protein Albumin Procalcitonin TSH Urine Color Urine Appearance Urine pH Ur Specific Riparius Urine Protein Urine Glucose (UA) Urine Ketones Urine Blood Urine Nitrite Ur Leukocyte Esterase Urine RBC Urine WBC Urine WBC Clumps Ur Squamous Epith Cells Ur Renal Epithelial Cell Uric Acid Crystals Amorphous Sediment Urine Bacteria Urine Mucus Stool Occult Blood Urine Opiates Screen Urine Fentanyl Screen Ur Barbiturates Screen Ur Phencyclidine Scrn Ur Amphetamines Screen U Benzodiazepines Scrn Urine Cocaine Screen U Marijuana (THC) Screen C. difficile Tox B Gene COVID-19 (KRISTOPHER) COVID-19 Clin Com Blood Type Antibody Screen Crossmatch 07/05/21 07/05/21 07/05/21 11:43 17:58 21:28 WBC RBC Hgb Hct MCV MCH MCHC RDW Plt Count MPV Immature Gran % (Auto) Neut % (Auto) Lymph % (Auto) Caroline % (Auto) Eos % (Auto) Baso % (Auto) Lymph # (Auto) Caroline # (Auto) Eos # (Auto) Baso # (Auto) Abs Immat Gran (auto) Absolute Neuts (auto) Absolute Nucleated RBC Nucleated RBC % (auto) Neutrophils % (Manual) Band Neutrophils % Lymphocytes % (Manual) Monocytes % (Manual) Eosinophils % (Manual) Metamyelocytes % Myelocytes % Promyelocytes % Abs Neuts (Manual) Lymphocytes # (Manual) Monocytes # (Manual) Eosinophils # (Manual) Metamyelocytes # Myelocytes # Promyelocytes # Smudge Cells Toxic Vacuolation Platelet Estimate Large Platelets Plt Morphology Comment RBC Morphology Polychromasia Hypochromasia Basophilic Stippling Microcytosis Macrocytosis Target Cells Tear Drop Cells Ovalocytes Esthela Cells Acanthocytes (Spur) Smear Tech's Comments Smear Path Review PT INR APTT D-Dimer High Sensitivty O2 Saturation ABG pH at Pt Temp ABG pCO2 at Pt Temp ABG pO2 at Pt Temp ABG HCO3 ABG Base Excess (Actual) VBG pH VBG pCO2 VBG pO2 VBG HCO3 VBG O2 Saturation VBG Base Excess Sodium Potassium Chloride Carbon Dioxide Anion Gap BUN Creatinine Estim Creat Clear Calc Estimated GFR POC Glucose 165 H 231 H Random Glucose Fasting Glucose Estimat Average Glucose Hemoglobin A1c % Lactic Acid Lactic Acid F/U @ 2Hr Lactic Acid F/U @ 4Hr Calcium Phosphorus Magnesium Ferritin Total Bilirubin Direct Bilirubin AST ALT Alkaline Phosphatase Lactate Dehydrogenase Total Creatine Kinase Troponin I High Sens C-Reactive Protein B-Natriuretic Peptide Total Protein Albumin Procalcitonin TSH Urine Color Urine Appearance Urine pH Ur Specific Riparius Urine Protein Urine Glucose (UA) Urine Ketones Urine Blood Urine Nitrite Ur Leukocyte Esterase Urine RBC Urine WBC Urine WBC Clumps Ur Squamous Epith Cells Ur Renal Epithelial Cell Uric Acid Crystals Amorphous Sediment Urine Bacteria Urine Mucus Stool Occult Blood POSITIVE Urine Opiates Screen Urine Fentanyl Screen Ur Barbiturates Screen Ur Phencyclidine Scrn Ur Amphetamines Screen U Benzodiazepines Scrn Urine Cocaine Screen U Marijuana (THC) Screen C. difficile Tox B Gene COVID-19 (KRISTOPHER) COVID-19 Clin Com Blood Type Antibody Screen Crossmatch 07/05/21 07/06/21 07/06/21 23:21 05:47 12:00 WBC RBC Hgb Hct MCV MCH MCHC RDW Plt Count MPV Immature Gran % (Auto) Neut % (Auto) Lymph % (Auto) Caroline % (Auto) Eos % (Auto) Baso % (Auto) Lymph # (Auto) Caroline # (Auto) Eos # (Auto) Baso # (Auto) Abs Immat Gran (auto) Absolute Neuts (auto) Absolute Nucleated RBC Nucleated RBC % (auto) Neutrophils % (Manual) Band Neutrophils % Lymphocytes % (Manual) Monocytes % (Manual) Eosinophils % (Manual) Metamyelocytes % Myelocytes % Promyelocytes % Abs Neuts (Manual) Lymphocytes # (Manual) Monocytes # (Manual) Eosinophils # (Manual) Metamyelocytes # Myelocytes # Promyelocytes # Smudge Cells Toxic Vacuolation Platelet Estimate Large Platelets Plt Morphology Comment RBC Morphology Polychromasia Hypochromasia Basophilic Stippling Microcytosis Macrocytosis Target Cells Tear Drop Cells Ovalocytes Esthela Cells Acanthocytes (Spur) Smear Tech's Comments Smear Path Review PT INR APTT D-Dimer High Sensitivty O2 Saturation ABG pH at Pt Temp ABG pCO2 at Pt Temp ABG pO2 at Pt Temp ABG HCO3 ABG Base Excess (Actual) VBG pH VBG pCO2 VBG pO2 VBG HCO3 VBG O2 Saturation VBG Base Excess Sodium Potassium Chloride Carbon Dioxide Anion Gap BUN Creatinine Estim Creat Clear Calc Estimated GFR POC Glucose 161 H 179 H 130 H Random Glucose Fasting Glucose Estimat Average Glucose Hemoglobin A1c % Lactic Acid Lactic Acid F/U @ 2Hr Lactic Acid F/U @ 4Hr Calcium Phosphorus Magnesium Ferritin Total Bilirubin Direct Bilirubin AST ALT Alkaline Phosphatase Lactate Dehydrogenase Total Creatine Kinase Troponin I High Sens C-Reactive Protein B-Natriuretic Peptide Total Protein Albumin Procalcitonin TSH Urine Color Urine Appearance Urine pH Ur Specific Riparius Urine Protein Urine Glucose (UA) Urine Ketones Urine Blood Urine Nitrite Ur Leukocyte Esterase Urine RBC Urine WBC Urine WBC Clumps Ur Squamous Epith Cells Ur Renal Epithelial Cell Uric Acid Crystals Amorphous Sediment Urine Bacteria Urine Mucus Stool Occult Blood Urine Opiates Screen Urine Fentanyl Screen Ur Barbiturates Screen Ur Phencyclidine Scrn Ur Amphetamines Screen U Benzodiazepines Scrn Urine Cocaine Screen U Marijuana (THC) Screen C. difficile Tox B Gene COVID-19 (KRISTOPHER) COVID-19 Clin Com Blood Type Antibody Screen Crossmatch 07/06/21 07/06/21 07/07/21 17:47 23:50 05:36 WBC RBC Hgb Hct MCV MCH MCHC RDW Plt Count MPV Immature Gran % (Auto) Neut % (Auto) Lymph % (Auto) Caroline % (Auto) Eos % (Auto) Baso % (Auto) Lymph # (Auto) Caroline # (Auto) Eos # (Auto) Baso # (Auto) Abs Immat Gran (auto) Absolute Neuts (auto) Absolute Nucleated RBC Nucleated RBC % (auto) Neutrophils % (Manual) Band Neutrophils % Lymphocytes % (Manual) Monocytes % (Manual) Eosinophils % (Manual) Metamyelocytes % Myelocytes % Promyelocytes % Abs Neuts (Manual) Lymphocytes # (Manual) Monocytes # (Manual) Eosinophils # (Manual) Metamyelocytes # Myelocytes # Promyelocytes # Smudge Cells Toxic Vacuolation Platelet Estimate Large Platelets Plt Morphology Comment RBC Morphology Polychromasia Hypochromasia Basophilic Stippling Microcytosis Macrocytosis Target Cells Tear Drop Cells Ovalocytes Esthela Cells Acanthocytes (Spur) Smear Tech's Comments Smear Path Review PT INR APTT D-Dimer High Sensitivty O2 Saturation ABG pH at Pt Temp ABG pCO2 at Pt Temp ABG pO2 at Pt Temp ABG HCO3 ABG Base Excess (Actual) VBG pH 7.48 H VBG pCO2 40 VBG pO2 44 VBG HCO3 30 H VBG O2 Saturation 75.0 VBG Base Excess 6.9 Sodium Potassium Chloride Carbon Dioxide Anion Gap BUN Creatinine Estim Creat Clear Calc Estimated GFR POC Glucose 179 H 169 H Random Glucose Fasting Glucose Estimat Average Glucose Hemoglobin A1c % Lactic Acid Lactic Acid F/U @ 2Hr Lactic Acid F/U @ 4Hr Calcium Phosphorus Magnesium Ferritin Total Bilirubin Direct Bilirubin AST ALT Alkaline Phosphatase Lactate Dehydrogenase Total Creatine Kinase Troponin I High Sens C-Reactive Protein B-Natriuretic Peptide Total Protein Albumin Procalcitonin TSH Urine Color Urine Appearance Urine pH Ur Specific Riparius Urine Protein Urine Glucose (UA) Urine Ketones Urine Blood Urine Nitrite Ur Leukocyte Esterase Urine RBC Urine WBC Urine WBC Clumps Ur Squamous Epith Cells Ur Renal Epithelial Cell Uric Acid Crystals Amorphous Sediment Urine Bacteria Urine Mucus Stool Occult Blood Urine Opiates Screen Urine Fentanyl Screen Ur Barbiturates Screen Ur Phencyclidine Scrn Ur Amphetamines Screen U Benzodiazepines Scrn Urine Cocaine Screen U Marijuana (THC) Screen C. difficile Tox B Gene COVID-19 (KRISTOPHER) COVID-19 Clin Com Blood Type Antibody Screen Crossmatch 07/07/21 07/07/21 07/07/21 05:41 05:41 11:32 WBC 10.7 RBC 3.87 L Hgb 9.6 L Hct 32.1 L MCV 82.9 MCH 24.8 L MCHC 29.9 L RDW 16.8 H Plt Count 478 H MPV 9.8 Immature Gran % (Auto) 1.8 H Neut % (Auto) 90.7 H Lymph % (Auto) 5.1 L Caroline % (Auto) 2.4 Eos % (Auto) 0.0 Baso % (Auto) 0.0 Lymph # (Auto) 0.6 L Caroline # (Auto) 0.3 Eos # (Auto) 0.0 Baso # (Auto) 0.0 Abs Immat Gran (auto) 0.19 H Absolute Neuts (auto) 9.7 H Absolute Nucleated RBC 0.000 Nucleated RBC % (auto) 0.0 Neutrophils % (Manual) Band Neutrophils % Lymphocytes % (Manual) Monocytes % (Manual) Eosinophils % (Manual) Metamyelocytes % Myelocytes % Promyelocytes % Abs Neuts (Manual) Lymphocytes # (Manual) Monocytes # (Manual) Eosinophils # (Manual) Metamyelocytes # Myelocytes # Promyelocytes # Smudge Cells Toxic Vacuolation Platelet Estimate Large Platelets Plt Morphology Comment RBC Morphology Polychromasia Hypochromasia Basophilic Stippling Microcytosis Macrocytosis Target Cells Tear Drop Cells Ovalocytes Drake Cells Acanthocytes (Spur) Smear Tech's Comments VERIFIED Smear Path Review PT INR APTT D-Dimer High Sensitivty O2 Saturation ABG pH at Pt Temp ABG pCO2 at Pt Temp ABG pO2 at Pt Temp ABG HCO3 ABG Base Excess (Actual) VBG pH VBG pCO2 VBG pO2 VBG HCO3 VBG O2 Saturation VBG Base Excess Sodium 141 Potassium 4.5 Chloride 104 Carbon Dioxide 29 Anion Gap 13 BUN 34 H Creatinine 0.64 Estim Creat Clear Calc 155.4 Estimated GFR > 60 POC Glucose 175 H Random Glucose 225 H Fasting Glucose Estimat Average Glucose Hemoglobin A1c % Lactic Acid Lactic Acid F/U @ 2Hr Lactic Acid F/U @ 4Hr Calcium 9.7 Phosphorus 3.0 Magnesium 2.0 Ferritin Total Bilirubin 0.4 Direct Bilirubin AST 10 ALT 16 Alkaline Phosphatase 77 Lactate Dehydrogenase Total Creatine Kinase Troponin I High Sens C-Reactive Protein B-Natriuretic Peptide Total Protein 6.0 L Albumin 3.1 L Procalcitonin TSH Urine Color Urine Appearance Urine pH Ur Specific Riparius Urine Protein Urine Glucose (UA) Urine Ketones Urine Blood Urine Nitrite Ur Leukocyte Esterase Urine RBC Urine WBC Urine WBC Clumps Ur Squamous Epith Cells Ur Renal Epithelial Cell Uric Acid Crystals Amorphous Sediment Urine Bacteria Urine Mucus Stool Occult Blood Urine Opiates Screen Urine Fentanyl Screen Ur Barbiturates Screen Ur Phencyclidine Scrn Ur Amphetamines Screen U Benzodiazepines Scrn Urine Cocaine Screen U Marijuana (THC) Screen C. difficile Tox B Gene COVID-19 (KRISTOPHER) COVID-19 Clin Com Blood Type Antibody Screen Crossmatch 07/07/21 07/07/21 07/07/21 17:45 18:49 23:29 WBC RBC Hgb Hct MCV MCH MCHC RDW Plt Count MPV Immature Gran % (Auto) Neut % (Auto) Lymph % (Auto) Caroline % (Auto) Eos % (Auto) Baso % (Auto) Lymph # (Auto) Caroline # (Auto) Eos # (Auto) Baso # (Auto) Abs Immat Gran (auto) Absolute Neuts (auto) Absolute Nucleated RBC Nucleated RBC % (auto) Neutrophils % (Manual) Band Neutrophils % Lymphocytes % (Manual) Monocytes % (Manual) Eosinophils % (Manual) Metamyelocytes % Myelocytes % Promyelocytes % Abs Neuts (Manual) Lymphocytes # (Manual) Monocytes # (Manual) Eosinophils # (Manual) Metamyelocytes # Myelocytes # Promyelocytes # Smudge Cells Toxic Vacuolation Platelet Estimate Large Platelets Plt Morphology Comment RBC Morphology Polychromasia Hypochromasia Basophilic Stippling Microcytosis Macrocytosis Target Cells Tear Drop Cells Ovalocytes Esthela Cells Acanthocytes (Spur) Smear Tech's Comments Smear Path Review PT INR APTT D-Dimer High Sensitivty O2 Saturation ABG pH at Pt Temp ABG pCO2 at Pt Temp ABG pO2 at Pt Temp ABG HCO3 ABG Base Excess (Actual) VBG pH VBG pCO2 VBG pO2 VBG HCO3 VBG O2 Saturation VBG Base Excess Sodium Potassium Chloride Carbon Dioxide Anion Gap BUN Creatinine Estim Creat Clear Calc Estimated GFR POC Glucose 196 H 196 H Random Glucose Fasting Glucose Estimat Average Glucose Hemoglobin A1c % Lactic Acid Lactic Acid F/U @ 2Hr Lactic Acid F/U @ 4Hr Calcium Phosphorus Magnesium Ferritin Total Bilirubin Direct Bilirubin AST ALT Alkaline Phosphatase Lactate Dehydrogenase Total Creatine Kinase Troponin I High Sens C-Reactive Protein B-Natriuretic Peptide Total Protein Albumin Procalcitonin TSH Urine Color Urine Appearance Urine pH Ur Specific Riparius Urine Protein Urine Glucose (UA) Urine Ketones Urine Blood Urine Nitrite Ur Leukocyte Esterase Urine RBC Urine WBC Urine WBC Clumps Ur Squamous Epith Cells Ur Renal Epithelial Cell Uric Acid Crystals Amorphous Sediment Urine Bacteria Urine Mucus Stool Occult Blood POSITIVE Urine Opiates Screen Urine Fentanyl Screen Ur Barbiturates Screen Ur Phencyclidine Scrn Ur Amphetamines Screen U Benzodiazepines Scrn Urine Cocaine Screen U Marijuana (THC) Screen C. difficile Tox B Gene COVID-19 (KRISTOPHER) COVID-19 Clin Com Blood Type Antibody Screen Crossmatch 07/08/21 07/08/21 07/08/21 05:59 11:17 17:31 WBC RBC Hgb Hct MCV MCH MCHC RDW Plt Count MPV Immature Gran % (Auto) Neut % (Auto) Lymph % (Auto) Caroline % (Auto) Eos % (Auto) Baso % (Auto) Lymph # (Auto) Caroline # (Auto) Eos # (Auto) Baso # (Auto) Abs Immat Gran (auto) Absolute Neuts (auto) Absolute Nucleated RBC Nucleated RBC % (auto) Neutrophils % (Manual) Band Neutrophils % Lymphocytes % (Manual) Monocytes % (Manual) Eosinophils % (Manual) Metamyelocytes % Myelocytes % Promyelocytes % Abs Neuts (Manual) Lymphocytes # (Manual) Monocytes # (Manual) Eosinophils # (Manual) Metamyelocytes # Myelocytes # Promyelocytes # Smudge Cells Toxic Vacuolation Platelet Estimate Large Platelets Plt Morphology Comment RBC Morphology Polychromasia Hypochromasia Basophilic Stippling Microcytosis Macrocytosis Target Cells Tear Drop Cells Ovalocytes Drake Cells Acanthocytes (Spur) Smear Tech's Comments Smear Path Review PT INR APTT D-Dimer High Sensitivty O2 Saturation ABG pH at Pt Temp ABG pCO2 at Pt Temp ABG pO2 at Pt Temp ABG HCO3 ABG Base Excess (Actual) VBG pH VBG pCO2 VBG pO2 VBG HCO3 VBG O2 Saturation VBG Base Excess Sodium Potassium Chloride Carbon Dioxide Anion Gap BUN Creatinine Estim Creat Clear Calc Estimated GFR POC Glucose 231 H 221 H 245 H Random Glucose Fasting Glucose Estimat Average Glucose Hemoglobin A1c % Lactic Acid Lactic Acid F/U @ 2Hr Lactic Acid F/U @ 4Hr Calcium Phosphorus Magnesium Ferritin Total Bilirubin Direct Bilirubin AST ALT Alkaline Phosphatase Lactate Dehydrogenase Total Creatine Kinase Troponin I High Sens C-Reactive Protein B-Natriuretic Peptide Total Protein Albumin Procalcitonin TSH Urine Color Urine Appearance Urine pH Ur Specific Riparius Urine Protein Urine Glucose (UA) Urine Ketones Urine Blood Urine Nitrite Ur Leukocyte Esterase Urine RBC Urine WBC Urine WBC Clumps Ur Squamous Epith Cells Ur Renal Epithelial Cell Uric Acid Crystals Amorphous Sediment Urine Bacteria Urine Mucus Stool Occult Blood Urine Opiates Screen Urine Fentanyl Screen Ur Barbiturates Screen Ur Phencyclidine Scrn Ur Amphetamines Screen U Benzodiazepines Scrn Urine Cocaine Screen U Marijuana (THC) Screen C. difficile Tox B Gene COVID-19 (KRISTOPHER) COVID-19 Clin Com Blood Type Antibody Screen Crossmatch 07/08/21 07/08/21 07/08/21 21:25 23:37 23:47 WBC RBC Hgb Hct MCV MCH MCHC RDW Plt Count MPV Immature Gran % (Auto) Neut % (Auto) Lymph % (Auto) Caroline % (Auto) Eos % (Auto) Baso % (Auto) Lymph # (Auto) Caroline # (Auto) Eos # (Auto) Baso # (Auto) Abs Immat Gran (auto) Absolute Neuts (auto) Absolute Nucleated RBC Nucleated RBC % (auto) Neutrophils % (Manual) Band Neutrophils % Lymphocytes % (Manual) Monocytes % (Manual) Eosinophils % (Manual) Metamyelocytes % Myelocytes % Promyelocytes % Abs Neuts (Manual) Lymphocytes # (Manual) Monocytes # (Manual) Eosinophils # (Manual) Metamyelocytes # Myelocytes # Promyelocytes # Smudge Cells Toxic Vacuolation Platelet Estimate Large Platelets Plt Morphology Comment RBC Morphology Polychromasia Hypochromasia Basophilic Stippling Microcytosis Macrocytosis Target Cells Tear Drop Cells Ovalocytes Drake Cells Acanthocytes (Spur) Smear Tech's Comments Smear Path Review PT INR APTT D-Dimer High Sensitivty O2 Saturation ABG pH at Pt Temp ABG pCO2 at Pt Temp ABG pO2 at Pt Temp ABG HCO3 ABG Base Excess (Actual) VBG pH VBG pCO2 VBG pO2 VBG HCO3 VBG O2 Saturation VBG Base Excess Sodium Potassium Chloride Carbon Dioxide Anion Gap BUN Creatinine Estim Creat Clear Calc Estimated GFR POC Glucose 139 H 110 Random Glucose Fasting Glucose Estimat Average Glucose Hemoglobin A1c % Lactic Acid Lactic Acid F/U @ 2Hr Lactic Acid F/U @ 4Hr Calcium Phosphorus Magnesium Ferritin Total Bilirubin Direct Bilirubin AST ALT Alkaline Phosphatase Lactate Dehydrogenase Total Creatine Kinase Troponin I High Sens C-Reactive Protein B-Natriuretic Peptide Total Protein Albumin Procalcitonin TSH Urine Color Urine Appearance Urine pH Ur Specific Riparius Urine Protein Urine Glucose (UA) Urine Ketones Urine Blood Urine Nitrite Ur Leukocyte Esterase Urine RBC Urine WBC Urine WBC Clumps Ur Squamous Epith Cells Ur Renal Epithelial Cell Uric Acid Crystals Amorphous Sediment Urine Bacteria Urine Mucus Stool Occult Blood POSITIVE Urine Opiates Screen Urine Fentanyl Screen Ur Barbiturates Screen Ur Phencyclidine Scrn Ur Amphetamines Screen U Benzodiazepines Scrn Urine Cocaine Screen U Marijuana (THC) Screen C. difficile Tox B Gene COVID-19 (KRISTOPHER) COVID-19 Clin Com Blood Type Antibody Screen Crossmatch 07/09/21 07/09/21 07/09/21 05:20 05:20 06:44 WBC 12.2 H RBC 4.21 L Hgb 10.3 L Hct 34.3 L MCV 81.5 MCH 24.5 L MCHC 30.0 L RDW 16.8 H Plt Count 409 H MPV 9.9 Immature Gran % (Auto) 1.3 H Neut % (Auto) 89.6 H Lymph % (Auto) 5.8 L Caroline % (Auto) 3.2 Eos % (Auto) 0.0 Baso % (Auto) 0.1 Lymph # (Auto) 0.7 L Caroline # (Auto) 0.4 Eos # (Auto) 0.0 Baso # (Auto) 0.0 Abs Immat Gran (auto) 0.16 H Absolute Neuts (auto) 10.9 H Absolute Nucleated RBC 0.000 Nucleated RBC % (auto) 0.0 Neutrophils % (Manual) Band Neutrophils % Lymphocytes % (Manual) Monocytes % (Manual) Eosinophils % (Manual) Metamyelocytes % Myelocytes % Promyelocytes % Abs Neuts (Manual) Lymphocytes # (Manual) Monocytes # (Manual) Eosinophils # (Manual) Metamyelocytes # Myelocytes # Promyelocytes # Smudge Cells Toxic Vacuolation Platelet Estimate Large Platelets Plt Morphology Comment RBC Morphology Polychromasia Hypochromasia Basophilic Stippling Microcytosis Macrocytosis Target Cells Tear Drop Cells Ovalocytes Esthela Cells Acanthocytes (Spur) Smear Tech's Comments Smear Path Review PT INR APTT D-Dimer High Sensitivty O2 Saturation ABG pH at Pt Temp ABG pCO2 at Pt Temp ABG pO2 at Pt Temp ABG HCO3 ABG Base Excess (Actual) VBG pH VBG pCO2 VBG pO2 VBG HCO3 VBG O2 Saturation VBG Base Excess Sodium 141 Potassium 3.3 D Chloride 115 H Carbon Dioxide 21 L Anion Gap 8 L BUN 25 H Creatinine 0.45 L Estim Creat Clear Calc 220.7 Estimated GFR > 60 POC Glucose 115 Random Glucose 97 D Fasting Glucose Estimat Average Glucose Hemoglobin A1c % Lactic Acid Lactic Acid F/U @ 2Hr Lactic Acid F/U @ 4Hr Calcium 7.4 L D Phosphorus Magnesium Ferritin Total Bilirubin 0.3 Direct Bilirubin AST 10 ALT 14 Alkaline Phosphatase 58 D Lactate Dehydrogenase Total Creatine Kinase Troponin I High Sens C-Reactive Protein B-Natriuretic Peptide Total Protein 4.6 L D Albumin 2.5 L Procalcitonin TSH Urine Color Urine Appearance Urine pH Ur Specific Riparius Urine Protein Urine Glucose (UA) Urine Ketones Urine Blood Urine Nitrite Ur Leukocyte Esterase Urine RBC Urine WBC Urine WBC Clumps Ur Squamous Epith Cells Ur Renal Epithelial Cell Uric Acid Crystals Amorphous Sediment Urine Bacteria Urine Mucus Stool Occult Blood Urine Opiates Screen Urine Fentanyl Screen Ur Barbiturates Screen Ur Phencyclidine Scrn Ur Amphetamines Screen U Benzodiazepines Scrn Urine Cocaine Screen U Marijuana (THC) Screen C. difficile Tox B Gene COVID-19 (KRISTOPHER) COVID-19 Clin Com Blood Type Antibody Screen Crossmatch 07/09/21 07/09/21 07/09/21 11:52 13:54 15:53 WBC RBC Hgb Hct MCV MCH MCHC RDW Plt Count MPV Immature Gran % (Auto) Neut % (Auto) Lymph % (Auto) Caroline % (Auto) Eos % (Auto) Baso % (Auto) Lymph # (Auto) Caroline # (Auto) Eos # (Auto) Baso # (Auto) Abs Immat Gran (auto) Absolute Neuts (auto) Absolute Nucleated RBC Nucleated RBC % (auto) Neutrophils % (Manual) Band Neutrophils % Lymphocytes % (Manual) Monocytes % (Manual) Eosinophils % (Manual) Metamyelocytes % Myelocytes % Promyelocytes % Abs Neuts (Manual) Lymphocytes # (Manual) Monocytes # (Manual) Eosinophils # (Manual) Metamyelocytes # Myelocytes # Promyelocytes # Smudge Cells Toxic Vacuolation Platelet Estimate Large Platelets Plt Morphology Comment RBC Morphology Polychromasia Hypochromasia Basophilic Stippling Microcytosis Macrocytosis Target Cells Tear Drop Cells Ovalocytes Drake Cells Acanthocytes (Spur) Smear Tech's Comments Smear Path Review PT INR APTT D-Dimer High Sensitivty O2 Saturation ABG pH at Pt Temp ABG pCO2 at Pt Temp ABG pO2 at Pt Temp ABG HCO3 ABG Base Excess (Actual) VBG pH VBG pCO2 VBG pO2 VBG HCO3 VBG O2 Saturation VBG Base Excess Sodium Potassium Chloride Carbon Dioxide Anion Gap BUN Creatinine Estim Creat Clear Calc Estimated GFR POC Glucose 54 L* 111 Random Glucose Fasting Glucose Estimat Average Glucose Hemoglobin A1c % Lactic Acid Lactic Acid F/U @ 2Hr Lactic Acid F/U @ 4Hr Calcium Phosphorus Magnesium Ferritin Total Bilirubin Direct Bilirubin AST ALT Alkaline Phosphatase Lactate Dehydrogenase Total Creatine Kinase Troponin I High Sens C-Reactive Protein B-Natriuretic Peptide Total Protein Albumin Procalcitonin TSH Urine Color Urine Appearance Urine pH Ur Specific Riparius Urine Protein Urine Glucose (UA) Urine Ketones Urine Blood Urine Nitrite Ur Leukocyte Esterase Urine RBC Urine WBC Urine WBC Clumps Ur Squamous Epith Cells Ur Renal Epithelial Cell Uric Acid Crystals Amorphous Sediment Urine Bacteria Urine Mucus Stool Occult Blood Urine Opiates Screen Urine Fentanyl Screen Ur Barbiturates Screen Ur Phencyclidine Scrn Ur Amphetamines Screen U Benzodiazepines Scrn Urine Cocaine Screen U Marijuana (THC) Screen C. difficile Tox B Gene COVID-19 (KRISTOPHER) COVID-19 Clin Com Blood Type O Positive Antibody Screen NEGATIVE Crossmatch 07/09/21 07/09/21 07/09/21 17:49 20:29 23:28 WBC RBC Hgb Hct MCV MCH MCHC RDW Plt Count MPV Immature Gran % (Auto) Neut % (Auto) Lymph % (Auto) Caroline % (Auto) Eos % (Auto) Baso % (Auto) Lymph # (Auto) Caroline # (Auto) Eos # (Auto) Baso # (Auto) Abs Immat Gran (auto) Absolute Neuts (auto) Absolute Nucleated RBC Nucleated RBC % (auto) Neutrophils % (Manual) Band Neutrophils % Lymphocytes % (Manual) Monocytes % (Manual) Eosinophils % (Manual) Metamyelocytes % Myelocytes % Promyelocytes % Abs Neuts (Manual) Lymphocytes # (Manual) Monocytes # (Manual) Eosinophils # (Manual) Metamyelocytes # Myelocytes # Promyelocytes # Smudge Cells Toxic Vacuolation Platelet Estimate Large Platelets Plt Morphology Comment RBC Morphology Polychromasia Hypochromasia Basophilic Stippling Microcytosis Macrocytosis Target Cells Tear Drop Cells Ovalocytes Drake Cells Acanthocytes (Spur) Smear Tech's Comments Smear Path Review PT INR APTT D-Dimer High Sensitivty O2 Saturation ABG pH at Pt Temp ABG pCO2 at Pt Temp ABG pO2 at Pt Temp ABG HCO3 ABG Base Excess (Actual) VBG pH VBG pCO2 VBG pO2 VBG HCO3 VBG O2 Saturation VBG Base Excess Sodium Potassium Chloride Carbon Dioxide Anion Gap BUN Creatinine Estim Creat Clear Calc Estimated GFR POC Glucose 95 97 79 Random Glucose Fasting Glucose Estimat Average Glucose Hemoglobin A1c % Lactic Acid Lactic Acid F/U @ 2Hr Lactic Acid F/U @ 4Hr Calcium Phosphorus Magnesium Ferritin Total Bilirubin Direct Bilirubin AST ALT Alkaline Phosphatase Lactate Dehydrogenase Total Creatine Kinase Troponin I High Sens C-Reactive Protein B-Natriuretic Peptide Total Protein Albumin Procalcitonin TSH Urine Color Urine Appearance Urine pH Ur Specific Riparius Urine Protein Urine Glucose (UA) Urine Ketones Urine Blood Urine Nitrite Ur Leukocyte Esterase Urine RBC Urine WBC Urine WBC Clumps Ur Squamous Epith Cells Ur Renal Epithelial Cell Uric Acid Crystals Amorphous Sediment Urine Bacteria Urine Mucus Stool Occult Blood Urine Opiates Screen Urine Fentanyl Screen Ur Barbiturates Screen Ur Phencyclidine Scrn Ur Amphetamines Screen U Benzodiazepines Scrn Urine Cocaine Screen U Marijuana (THC) Screen C. difficile Tox B Gene COVID-19 (KRISTOPHER) COVID-19 Clin Com Blood Type Antibody Screen Crossmatch 07/10/21 07/10/21 07/10/21 00:52 04:40 04:40 WBC 15.2 H RBC 4.65 Hgb 11.3 L Hct 37.7 L MCV 81.1 MCH 24.3 L MCHC 30.0 L RDW 17.3 H Plt Count 508 H MPV 9.9 Immature Gran % (Auto) 0.9 H Neut % (Auto) 85.6 H Lymph % (Auto) 8.7 L Caroline % (Auto) 4.7 Eos % (Auto) 0.0 Baso % (Auto) 0.1 Lymph # (Auto) 1.3 Caroline # (Auto) 0.7 Eos # (Auto) 0.0 Baso # (Auto) 0.0 Abs Immat Gran (auto) 0.13 H Absolute Neuts (auto) 13.0 H Absolute Nucleated RBC 0.000 Nucleated RBC % (auto) 0.0 Neutrophils % (Manual) Band Neutrophils % Lymphocytes % (Manual) Monocytes % (Manual) Eosinophils % (Manual) Metamyelocytes % Myelocytes % Promyelocytes % Abs Neuts (Manual) Lymphocytes # (Manual) Monocytes # (Manual) Eosinophils # (Manual) Metamyelocytes # Myelocytes # Promyelocytes # Smudge Cells Toxic Vacuolation Platelet Estimate Large Platelets Plt Morphology Comment RBC Morphology Polychromasia Hypochromasia Basophilic Stippling Microcytosis Macrocytosis Target Cells Tear Drop Cells Ovalocytes Esthela Cells Acanthocytes (Spur) Smear Tech's Comments Smear Path Review PT INR APTT D-Dimer High Sensitivty 2158 O2 Saturation ABG pH at Pt Temp ABG pCO2 at Pt Temp ABG pO2 at Pt Temp ABG HCO3 ABG Base Excess (Actual) VBG pH VBG pCO2 VBG pO2 VBG HCO3 VBG O2 Saturation VBG Base Excess Sodium Potassium Chloride Carbon Dioxide Anion Gap BUN Creatinine Estim Creat Clear Calc Estimated GFR POC Glucose 95 Random Glucose Fasting Glucose Estimat Average Glucose Hemoglobin A1c % Lactic Acid Lactic Acid F/U @ 2Hr Lactic Acid F/U @ 4Hr Calcium Phosphorus Magnesium Ferritin Total Bilirubin Direct Bilirubin AST ALT Alkaline Phosphatase Lactate Dehydrogenase Total Creatine Kinase Troponin I High Sens C-Reactive Protein B-Natriuretic Peptide Total Protein Albumin Procalcitonin TSH Urine Color Urine Appearance Urine pH Ur Specific Riparius Urine Protein Urine Glucose (UA) Urine Ketones Urine Blood Urine Nitrite Ur Leukocyte Esterase Urine RBC Urine WBC Urine WBC Clumps Ur Squamous Epith Cells Ur Renal Epithelial Cell Uric Acid Crystals Amorphous Sediment Urine Bacteria Urine Mucus Stool Occult Blood Urine Opiates Screen Urine Fentanyl Screen Ur Barbiturates Screen Ur Phencyclidine Scrn Ur Amphetamines Screen U Benzodiazepines Scrn Urine Cocaine Screen U Marijuana (THC) Screen C. difficile Tox B Gene COVID-19 (KRISTOPHER) COVID-19 Clin Com Blood Type Antibody Screen Crossmatch 07/10/21 07/10/21 07/10/21 04:40 04:43 05:50 WBC RBC Hgb Hct MCV MCH MCHC RDW Plt Count MPV Immature Gran % (Auto) Neut % (Auto) Lymph % (Auto) Caroline % (Auto) Eos % (Auto) Baso % (Auto) Lymph # (Auto) Caroline # (Auto) Eos # (Auto) Baso # (Auto) Abs Immat Gran (auto) Absolute Neuts (auto) Absolute Nucleated RBC Nucleated RBC % (auto) Neutrophils % (Manual) Band Neutrophils % Lymphocytes % (Manual) Monocytes % (Manual) Eosinophils % (Manual) Metamyelocytes % Myelocytes % Promyelocytes % Abs Neuts (Manual) Lymphocytes # (Manual) Monocytes # (Manual) Eosinophils # (Manual) Metamyelocytes # Myelocytes # Promyelocytes # Smudge Cells Toxic Vacuolation Platelet Estimate Large Platelets Plt Morphology Comment RBC Morphology Polychromasia Hypochromasia Basophilic Stippling Microcytosis Macrocytosis Target Cells Tear Drop Cells Ovalocytes Drake Cells Acanthocytes (Spur) Smear Tech's Comments Smear Path Review PT INR APTT D-Dimer High Sensitivty O2 Saturation ABG pH at Pt Temp ABG pCO2 at Pt Temp ABG pO2 at Pt Temp ABG HCO3 ABG Base Excess (Actual) VBG pH 7.49 H VBG pCO2 34 VBG pO2 51 VBG HCO3 26 VBG O2 Saturation 81.0 VBG Base Excess 4.0 Sodium 138 Potassium 4.3 D Chloride 103 Carbon Dioxide 27 Anion Gap 12 BUN 30 H Creatinine 0.60 Estim Creat Clear Calc 152.5 Estimated GFR > 60 POC Glucose 61 Random Glucose 66 Fasting Glucose Estimat Average Glucose Hemoglobin A1c % Lactic Acid Lactic Acid F/U @ 2Hr Lactic Acid F/U @ 4Hr Calcium 10.1 D Phosphorus 3.1 Magnesium 2.0 Ferritin 176 Total Bilirubin 0.7 Direct Bilirubin 0.4 AST 17 D ALT 24 Alkaline Phosphatase 87 D Lactate Dehydrogenase 257 Total Creatine Kinase 45 Troponin I High Sens C-Reactive Protein 0.49 B-Natriuretic Peptide Total Protein 6.6 D Albumin 3.5 D Procalcitonin TSH Urine Color Urine Appearance Urine pH Ur Specific Riparius Urine Protein Urine Glucose (UA) Urine Ketones Urine Blood Urine Nitrite Ur Leukocyte Esterase Urine RBC Urine WBC Urine WBC Clumps Ur Squamous Epith Cells Ur Renal Epithelial Cell Uric Acid Crystals Amorphous Sediment Urine Bacteria Urine Mucus Stool Occult Blood Urine Opiates Screen Urine Fentanyl Screen Ur Barbiturates Screen Ur Phencyclidine Scrn Ur Amphetamines Screen U Benzodiazepines Scrn Urine Cocaine Screen U Marijuana (THC) Screen C. difficile Tox B Gene COVID-19 (KRISTOPHER) COVID-19 Clin Com Blood Type Antibody Screen Crossmatch 07/10/21 07/10/21 07/10/21 07:41 11:42 18:01 WBC RBC Hgb Hct MCV MCH MCHC RDW Plt Count MPV Immature Gran % (Auto) Neut % (Auto) Lymph % (Auto) Caroline % (Auto) Eos % (Auto) Baso % (Auto) Lymph # (Auto) Caroline # (Auto) Eos # (Auto) Baso # (Auto) Abs Immat Gran (auto) Absolute Neuts (auto) Absolute Nucleated RBC Nucleated RBC % (auto) Neutrophils % (Manual) Band Neutrophils % Lymphocytes % (Manual) Monocytes % (Manual) Eosinophils % (Manual) Metamyelocytes % Myelocytes % Promyelocytes % Abs Neuts (Manual) Lymphocytes # (Manual) Monocytes # (Manual) Eosinophils # (Manual) Metamyelocytes # Myelocytes # Promyelocytes # Smudge Cells Toxic Vacuolation Platelet Estimate Large Platelets Plt Morphology Comment RBC Morphology Polychromasia Hypochromasia Basophilic Stippling Microcytosis Macrocytosis Target Cells Tear Drop Cells Ovalocytes Esthela Cells Acanthocytes (Spur) Smear Tech's Comments Smear Path Review PT INR APTT D-Dimer High Sensitivty O2 Saturation ABG pH at Pt Temp ABG pCO2 at Pt Temp ABG pO2 at Pt Temp ABG HCO3 ABG Base Excess (Actual) VBG pH VBG pCO2 VBG pO2 VBG HCO3 VBG O2 Saturation VBG Base Excess Sodium Potassium Chloride Carbon Dioxide Anion Gap BUN Creatinine Estim Creat Clear Calc Estimated GFR POC Glucose 55 L* 109 Random Glucose Fasting Glucose Estimat Average Glucose Hemoglobin A1c % Lactic Acid Lactic Acid F/U @ 2Hr Lactic Acid F/U @ 4Hr Calcium Phosphorus Magnesium Ferritin Total Bilirubin Direct Bilirubin AST ALT Alkaline Phosphatase Lactate Dehydrogenase Total Creatine Kinase Troponin I High Sens C-Reactive Protein B-Natriuretic Peptide Total Protein Albumin Procalcitonin TSH Urine Color Urine Appearance Urine pH Ur Specific Riparius Urine Protein Urine Glucose (UA) Urine Ketones Urine Blood Urine Nitrite Ur Leukocyte Esterase Urine RBC Urine WBC Urine WBC Clumps Ur Squamous Epith Cells Ur Renal Epithelial Cell Uric Acid Crystals Amorphous Sediment Urine Bacteria Urine Mucus Stool Occult Blood Urine Opiates Screen Urine Fentanyl Screen Ur Barbiturates Screen Ur Phencyclidine Scrn Ur Amphetamines Screen U Benzodiazepines Scrn Urine Cocaine Screen U Marijuana (THC) Screen C. difficile Tox B Gene COVID-19 (KRISTOPHER) Positive A COVID-19 Clin Com See Note Blood Type Antibody Screen Crossmatch 07/10/21 07/11/21 07/11/21 23:57 03:40 03:40 WBC 7.4 RBC 4.10 L Hgb 10.3 L Hct 33.6 L MCV 82.0 MCH 25.1 L MCHC 30.7 L RDW 17.2 H Plt Count 320 D MPV 9.3 L Immature Gran % (Auto) 1.1 H Neut % (Auto) 87.5 H Lymph % (Auto) 7.7 L Caroline % (Auto) 3.6 Eos % (Auto) 0.0 Baso % (Auto) 0.1 Lymph # (Auto) 0.6 L Caroline # (Auto) 0.3 Eos # (Auto) 0.0 Baso # (Auto) 0.0 Abs Immat Gran (auto) 0.08 H Absolute Neuts (auto) 6.5 Absolute Nucleated RBC 0.000 Nucleated RBC % (auto) 0.0 Neutrophils % (Manual) Band Neutrophils % Lymphocytes % (Manual) Monocytes % (Manual) Eosinophils % (Manual) Metamyelocytes % Myelocytes % Promyelocytes % Abs Neuts (Manual) Lymphocytes # (Manual) Monocytes # (Manual) Eosinophils # (Manual) Metamyelocytes # Myelocytes # Promyelocytes # Smudge Cells Toxic Vacuolation Platelet Estimate Large Platelets Plt Morphology Comment RBC Morphology Polychromasia Hypochromasia Basophilic Stippling Microcytosis Macrocytosis Target Cells Tear Drop Cells Ovalocytes Drake Cells Acanthocytes (Spur) Smear Tech's Comments Smear Path Review PT INR APTT D-Dimer High Sensitivty 2861 O2 Saturation ABG pH at Pt Temp ABG pCO2 at Pt Temp ABG pO2 at Pt Temp ABG HCO3 ABG Base Excess (Actual) VBG pH VBG pCO2 VBG pO2 VBG HCO3 VBG O2 Saturation VBG Base Excess Sodium Potassium Chloride Carbon Dioxide Anion Gap BUN Creatinine Estim Creat Clear Calc Estimated GFR POC Glucose 101 Random Glucose Fasting Glucose Estimat Average Glucose Hemoglobin A1c % Lactic Acid Lactic Acid F/U @ 2Hr Lactic Acid F/U @ 4Hr Calcium Phosphorus Magnesium Ferritin Total Bilirubin Direct Bilirubin AST ALT Alkaline Phosphatase Lactate Dehydrogenase Total Creatine Kinase Troponin I High Sens C-Reactive Protein B-Natriuretic Peptide Total Protein Albumin Procalcitonin TSH Urine Color Urine Appearance Urine pH Ur Specific Riparius Urine Protein Urine Glucose (UA) Urine Ketones Urine Blood Urine Nitrite Ur Leukocyte Esterase Urine RBC Urine WBC Urine WBC Clumps Ur Squamous Epith Cells Ur Renal Epithelial Cell Uric Acid Crystals Amorphous Sediment Urine Bacteria Urine Mucus Stool Occult Blood Urine Opiates Screen Urine Fentanyl Screen Ur Barbiturates Screen Ur Phencyclidine Scrn Ur Amphetamines Screen U Benzodiazepines Scrn Urine Cocaine Screen U Marijuana (THC) Screen C. difficile Tox B Gene COVID-19 (KRISTOPHER) COVID-19 Clin Com Blood Type Antibody Screen Crossmatch 07/11/21 07/11/21 07/11/21 03:40 03:40 03:45 WBC RBC Hgb Hct MCV MCH MCHC RDW Plt Count MPV Immature Gran % (Auto) Neut % (Auto) Lymph % (Auto) Caroline % (Auto) Eos % (Auto) Baso % (Auto) Lymph # (Auto) Caroline # (Auto) Eos # (Auto) Baso # (Auto) Abs Immat Gran (auto) Absolute Neuts (auto) Absolute Nucleated RBC Nucleated RBC % (auto) Neutrophils % (Manual) Band Neutrophils % Lymphocytes % (Manual) Monocytes % (Manual) Eosinophils % (Manual) Metamyelocytes % Myelocytes % Promyelocytes % Abs Neuts (Manual) Lymphocytes # (Manual) Monocytes # (Manual) Eosinophils # (Manual) Metamyelocytes # Myelocytes # Promyelocytes # Smudge Cells Toxic Vacuolation Platelet Estimate Large Platelets Plt Morphology Comment RBC Morphology Polychromasia Hypochromasia Basophilic Stippling Microcytosis Macrocytosis Target Cells Tear Drop Cells Ovalocytes Esthela Cells Acanthocytes (Spur) Smear Tech's Comments Smear Path Review PT INR APTT D-Dimer High Sensitivty O2 Saturation ABG pH at Pt Temp ABG pCO2 at Pt Temp ABG pO2 at Pt Temp ABG HCO3 ABG Base Excess (Actual) VBG pH 7.46 H VBG pCO2 37 VBG pO2 40 VBG HCO3 26 VBG O2 Saturation 63.0 VBG Base Excess 3.0 Sodium 137 Potassium 4.9 Chloride 104 Carbon Dioxide 27 Anion Gap 11 L BUN 36 H Creatinine 0.71 Estim Creat Clear Calc 128.9 Estimated GFR > 60 POC Glucose Random Glucose 249 H D Fasting Glucose Estimat Average Glucose Hemoglobin A1c % Lactic Acid 1.1 Lactic Acid F/U @ 2Hr Lactic Acid F/U @ 4Hr Calcium 9.7 Phosphorus 3.6 Magnesium 2.1 Ferritin 196 Total Bilirubin 0.7 Direct Bilirubin 0.4 AST 14 ALT 24 Alkaline Phosphatase 77 Lactate Dehydrogenase 203 Total Creatine Kinase 32 L Troponin I High Sens C-Reactive Protein 0.34 B-Natriuretic Peptide Total Protein 5.8 L Albumin 3.1 L Procalcitonin TSH Urine Color Urine Appearance Urine pH Ur Specific Riparius Urine Protein Urine Glucose (UA) Urine Ketones Urine Blood Urine Nitrite Ur Leukocyte Esterase Urine RBC Urine WBC Urine WBC Clumps Ur Squamous Epith Cells Ur Renal Epithelial Cell Uric Acid Crystals Amorphous Sediment Urine Bacteria Urine Mucus Stool Occult Blood Urine Opiates Screen Urine Fentanyl Screen Ur Barbiturates Screen Ur Phencyclidine Scrn Ur Amphetamines Screen U Benzodiazepines Scrn Urine Cocaine Screen U Marijuana (THC) Screen C. difficile Tox B Gene COVID-19 (KRISTOPHER) COVID-19 Clin Com Blood Type Antibody Screen Crossmatch 07/11/21 07/11/21 07/11/21 05:25 08:15 11:51 WBC RBC Hgb Hct MCV MCH MCHC RDW Plt Count MPV Immature Gran % (Auto) Neut % (Auto) Lymph % (Auto) Caroline % (Auto) Eos % (Auto) Baso % (Auto) Lymph # (Auto) Caroline # (Auto) Eos # (Auto) Baso # (Auto) Abs Immat Gran (auto) Absolute Neuts (auto) Absolute Nucleated RBC Nucleated RBC % (auto) Neutrophils % (Manual) Band Neutrophils % Lymphocytes % (Manual) Monocytes % (Manual) Eosinophils % (Manual) Metamyelocytes % Myelocytes % Promyelocytes % Abs Neuts (Manual) Lymphocytes # (Manual) Monocytes # (Manual) Eosinophils # (Manual) Metamyelocytes # Myelocytes # Promyelocytes # Smudge Cells Toxic Vacuolation Platelet Estimate Large Platelets Plt Morphology Comment RBC Morphology Polychromasia Hypochromasia Basophilic Stippling Microcytosis Macrocytosis Target Cells Tear Drop Cells Ovalocytes Esthela Cells Acanthocytes (Spur) Smear Tech's Comments Smear Path Review PT INR APTT D-Dimer High Sensitivty O2 Saturation ABG pH at Pt Temp ABG pCO2 at Pt Temp ABG pO2 at Pt Temp ABG HCO3 ABG Base Excess (Actual) VBG pH VBG pCO2 VBG pO2 VBG HCO3 VBG O2 Saturation VBG Base Excess Sodium Potassium Chloride Carbon Dioxide Anion Gap BUN Creatinine Estim Creat Clear Calc Estimated GFR POC Glucose 193 H 130 H Random Glucose Fasting Glucose Estimat Average Glucose Hemoglobin A1c % Lactic Acid Lactic Acid F/U @ 2Hr Lactic Acid F/U @ 4Hr Calcium Phosphorus Magnesium Ferritin Total Bilirubin Direct Bilirubin AST ALT Alkaline Phosphatase Lactate Dehydrogenase Total Creatine Kinase Troponin I High Sens C-Reactive Protein B-Natriuretic Peptide Total Protein Albumin Procalcitonin TSH Urine Color Urine Appearance Urine pH Ur Specific Riparius Urine Protein Urine Glucose (UA) Urine Ketones Urine Blood Urine Nitrite Ur Leukocyte Esterase Urine RBC Urine WBC Urine WBC Clumps Ur Squamous Epith Cells Ur Renal Epithelial Cell Uric Acid Crystals Amorphous Sediment Urine Bacteria Urine Mucus Stool Occult Blood Urine Opiates Screen Urine Fentanyl Screen Ur Barbiturates Screen Ur Phencyclidine Scrn Ur Amphetamines Screen U Benzodiazepines Scrn Urine Cocaine Screen U Marijuana (THC) Screen C. difficile Tox B Gene NEGATIVE COVID-19 (KRISTOPHER) COVID-19 Clin Com Blood Type Antibody Screen Crossmatch 07/11/21 07/12/21 07/12/21 17:57 01:19 04:40 WBC RBC Hgb Hct MCV MCH MCHC RDW Plt Count MPV Immature Gran % (Auto) Neut % (Auto) Lymph % (Auto) Caroline % (Auto) Eos % (Auto) Baso % (Auto) Lymph # (Auto) Caroline # (Auto) Eos # (Auto) Baso # (Auto) Abs Immat Gran (auto) Absolute Neuts (auto) Absolute Nucleated RBC Nucleated RBC % (auto) Neutrophils % (Manual) Band Neutrophils % Lymphocytes % (Manual) Monocytes % (Manual) Eosinophils % (Manual) Metamyelocytes % Myelocytes % Promyelocytes % Abs Neuts (Manual) Lymphocytes # (Manual) Monocytes # (Manual) Eosinophils # (Manual) Metamyelocytes # Myelocytes # Promyelocytes # Smudge Cells Toxic Vacuolation Platelet Estimate Large Platelets Plt Morphology Comment RBC Morphology Polychromasia Hypochromasia Basophilic Stippling Microcytosis Macrocytosis Target Cells Tear Drop Cells Ovalocytes Drake Cells Acanthocytes (Spur) Smear Tech's Comments Smear Path Review PT INR APTT D-Dimer High Sensitivty O2 Saturation ABG pH at Pt Temp ABG pCO2 at Pt Temp ABG pO2 at Pt Temp ABG HCO3 ABG Base Excess (Actual) VBG pH VBG pCO2 VBG pO2 VBG HCO3 VBG O2 Saturation VBG Base Excess Sodium Potassium Chloride Carbon Dioxide Anion Gap BUN Creatinine Estim Creat Clear Calc Estimated GFR POC Glucose 64 64 110 Random Glucose Fasting Glucose Estimat Average Glucose Hemoglobin A1c % Lactic Acid Lactic Acid F/U @ 2Hr Lactic Acid F/U @ 4Hr Calcium Phosphorus Magnesium Ferritin Total Bilirubin Direct Bilirubin AST ALT Alkaline Phosphatase Lactate Dehydrogenase Total Creatine Kinase Troponin I High Sens C-Reactive Protein B-Natriuretic Peptide Total Protein Albumin Procalcitonin TSH Urine Color Urine Appearance Urine pH Ur Specific Riparius Urine Protein Urine Glucose (UA) Urine Ketones Urine Blood Urine Nitrite Ur Leukocyte Esterase Urine RBC Urine WBC Urine WBC Clumps Ur Squamous Epith Cells Ur Renal Epithelial Cell Uric Acid Crystals Amorphous Sediment Urine Bacteria Urine Mucus Stool Occult Blood Urine Opiates Screen Urine Fentanyl Screen Ur Barbiturates Screen Ur Phencyclidine Scrn Ur Amphetamines Screen U Benzodiazepines Scrn Urine Cocaine Screen U Marijuana (THC) Screen C. difficile Tox B Gene COVID-19 (KRISTOPHER) COVID-19 Clin Com Blood Type Antibody Screen Crossmatch 07/12/21 07/12/21 07/12/21 05:40 05:40 05:40 WBC 13.0 H RBC 4.52 L Hgb 11.3 L Hct 36.4 L MCV 80.5 MCH 25.0 L MCHC 31.0 RDW 17.6 H Plt Count 484 H D MPV 9.9 Immature Gran % (Auto) 0.8 H Neut % (Auto) 80.4 H Lymph % (Auto) 10.3 L Caroline % (Auto) 8.4 Eos % (Auto) 0.0 Baso % (Auto) 0.1 Lymph # (Auto) 1.3 Caroline # (Auto) 1.1 Eos # (Auto) 0.0 Baso # (Auto) 0.0 Abs Immat Gran (auto) 0.11 H Absolute Neuts (auto) 10.4 H Absolute Nucleated RBC 0.000 Nucleated RBC % (auto) 0.0 Neutrophils % (Manual) Band Neutrophils % Lymphocytes % (Manual) Monocytes % (Manual) Eosinophils % (Manual) Metamyelocytes % Myelocytes % Promyelocytes % Abs Neuts (Manual) Lymphocytes # (Manual) Monocytes # (Manual) Eosinophils # (Manual) Metamyelocytes # Myelocytes # Promyelocytes # Smudge Cells Toxic Vacuolation Platelet Estimate Large Platelets Plt Morphology Comment RBC Morphology Polychromasia Hypochromasia Basophilic Stippling Microcytosis Macrocytosis Target Cells Tear Drop Cells Ovalocytes Esthela Cells Acanthocytes (Spur) Smear Tech's Comments Smear Path Review PT INR APTT D-Dimer High Sensitivty 2536 O2 Saturation ABG pH at Pt Temp ABG pCO2 at Pt Temp ABG pO2 at Pt Temp ABG HCO3 ABG Base Excess (Actual) VBG pH VBG pCO2 VBG pO2 VBG HCO3 VBG O2 Saturation VBG Base Excess Sodium 139 Potassium 4.0 Chloride 103 Carbon Dioxide 29 Anion Gap 11 L BUN 35 H Creatinine 0.62 Estim Creat Clear Calc 159.8 Estimated GFR > 60 POC Glucose Random Glucose 74 D Fasting Glucose Estimat Average Glucose Hemoglobin A1c % Lactic Acid Lactic Acid F/U @ 2Hr Lactic Acid F/U @ 4Hr Calcium 10.3 H D Phosphorus 3.1 Magnesium 2.2 Ferritin 405 H Total Bilirubin 0.8 Direct Bilirubin 0.4 AST 14 ALT 24 Alkaline Phosphatase 82 Lactate Dehydrogenase 259 Total Creatine Kinase 28 L Troponin I High Sens C-Reactive Protein 0.29 B-Natriuretic Peptide Total Protein 6.4 L Albumin 3.4 L Procalcitonin TSH Urine Color Urine Appearance Urine pH Ur Specific Riparius Urine Protein Urine Glucose (UA) Urine Ketones Urine Blood Urine Nitrite Ur Leukocyte Esterase Urine RBC Urine WBC Urine WBC Clumps Ur Squamous Epith Cells Ur Renal Epithelial Cell Uric Acid Crystals Amorphous Sediment Urine Bacteria Urine Mucus Stool Occult Blood Urine Opiates Screen Urine Fentanyl Screen Ur Barbiturates Screen Ur Phencyclidine Scrn Ur Amphetamines Screen U Benzodiazepines Scrn Urine Cocaine Screen U Marijuana (THC) Screen C. difficile Tox B Gene COVID-19 (KRISTOPHER) COVID-19 Clin Com Blood Type Antibody Screen Crossmatch 07/12/21 07/12/21 07/12/21 05:51 11:12 16:13 WBC RBC Hgb Hct MCV MCH MCHC RDW Plt Count MPV Immature Gran % (Auto) Neut % (Auto) Lymph % (Auto) Caroline % (Auto) Eos % (Auto) Baso % (Auto) Lymph # (Auto) Caroline # (Auto) Eos # (Auto) Baso # (Auto) Abs Immat Gran (auto) Absolute Neuts (auto) Absolute Nucleated RBC Nucleated RBC % (auto) Neutrophils % (Manual) Band Neutrophils % Lymphocytes % (Manual) Monocytes % (Manual) Eosinophils % (Manual) Metamyelocytes % Myelocytes % Promyelocytes % Abs Neuts (Manual) Lymphocytes # (Manual) Monocytes # (Manual) Eosinophils # (Manual) Metamyelocytes # Myelocytes # Promyelocytes # Smudge Cells Toxic Vacuolation Platelet Estimate Large Platelets Plt Morphology Comment RBC Morphology Polychromasia Hypochromasia Basophilic Stippling Microcytosis Macrocytosis Target Cells Tear Drop Cells Ovalocytes Drake Cells Acanthocytes (Spur) Smear Tech's Comments Smear Path Review PT INR APTT D-Dimer High Sensitivty O2 Saturation ABG pH at Pt Temp ABG pCO2 at Pt Temp ABG pO2 at Pt Temp ABG HCO3 ABG Base Excess (Actual) VBG pH 7.52 H VBG pCO2 35 VBG pO2 53 VBG HCO3 29 H VBG O2 Saturation 82.0 VBG Base Excess 6.3 Sodium Potassium Chloride Carbon Dioxide Anion Gap BUN Creatinine Estim Creat Clear Calc Estimated GFR POC Glucose 64 77 Random Glucose Fasting Glucose Estimat Average Glucose Hemoglobin A1c % Lactic Acid Lactic Acid F/U @ 2Hr Lactic Acid F/U @ 4Hr Calcium Phosphorus Magnesium Ferritin Total Bilirubin Direct Bilirubin AST ALT Alkaline Phosphatase Lactate Dehydrogenase Total Creatine Kinase Troponin I High Sens C-Reactive Protein B-Natriuretic Peptide Total Protein Albumin Procalcitonin TSH Urine Color Urine Appearance Urine pH Ur Specific Riparius Urine Protein Urine Glucose (UA) Urine Ketones Urine Blood Urine Nitrite Ur Leukocyte Esterase Urine RBC Urine WBC Urine WBC Clumps Ur Squamous Epith Cells Ur Renal Epithelial Cell Uric Acid Crystals Amorphous Sediment Urine Bacteria Urine Mucus Stool Occult Blood Urine Opiates Screen Urine Fentanyl Screen Ur Barbiturates Screen Ur Phencyclidine Scrn Ur Amphetamines Screen U Benzodiazepines Scrn Urine Cocaine Screen U Marijuana (THC) Screen C. difficile Tox B Gene COVID-19 (KRISTOPHER) COVID-19 Clin Com Blood Type Antibody Screen Crossmatch 07/12/21 07/13/21 07/13/21 19:58 00:17 05:38 WBC RBC Hgb Hct MCV MCH MCHC RDW Plt Count MPV Immature Gran % (Auto) Neut % (Auto) Lymph % (Auto) Caroline % (Auto) Eos % (Auto) Baso % (Auto) Lymph # (Auto) Caroline # (Auto) Eos # (Auto) Baso # (Auto) Abs Immat Gran (auto) Absolute Neuts (auto) Absolute Nucleated RBC Nucleated RBC % (auto) Neutrophils % (Manual) Band Neutrophils % Lymphocytes % (Manual) Monocytes % (Manual) Eosinophils % (Manual) Metamyelocytes % Myelocytes % Promyelocytes % Abs Neuts (Manual) Lymphocytes # (Manual) Monocytes # (Manual) Eosinophils # (Manual) Metamyelocytes # Myelocytes # Promyelocytes # Smudge Cells Toxic Vacuolation Platelet Estimate Large Platelets Plt Morphology Comment RBC Morphology Polychromasia Hypochromasia Basophilic Stippling Microcytosis Macrocytosis Target Cells Tear Drop Cells Ovalocytes Drake Cells Acanthocytes (Spur) Smear Tech's Comments Smear Path Review PT INR APTT D-Dimer High Sensitivty O2 Saturation ABG pH at Pt Temp ABG pCO2 at Pt Temp ABG pO2 at Pt Temp ABG HCO3 ABG Base Excess (Actual) VBG pH VBG pCO2 VBG pO2 VBG HCO3 VBG O2 Saturation VBG Base Excess Sodium Potassium Chloride Carbon Dioxide Anion Gap BUN Creatinine Estim Creat Clear Calc Estimated GFR POC Glucose 98 113 116 H Random Glucose Fasting Glucose Estimat Average Glucose Hemoglobin A1c % Lactic Acid Lactic Acid F/U @ 2Hr Lactic Acid F/U @ 4Hr Calcium Phosphorus Magnesium Ferritin Total Bilirubin Direct Bilirubin AST ALT Alkaline Phosphatase Lactate Dehydrogenase Total Creatine Kinase Troponin I High Sens C-Reactive Protein B-Natriuretic Peptide Total Protein Albumin Procalcitonin TSH Urine Color Urine Appearance Urine pH Ur Specific Riparius Urine Protein Urine Glucose (UA) Urine Ketones Urine Blood Urine Nitrite Ur Leukocyte Esterase Urine RBC Urine WBC Urine WBC Clumps Ur Squamous Epith Cells Ur Renal Epithelial Cell Uric Acid Crystals Amorphous Sediment Urine Bacteria Urine Mucus Stool Occult Blood Urine Opiates Screen Urine Fentanyl Screen Ur Barbiturates Screen Ur Phencyclidine Scrn Ur Amphetamines Screen U Benzodiazepines Scrn Urine Cocaine Screen U Marijuana (THC) Screen C. difficile Tox B Gene COVID-19 (KRISTOPHER) COVID-19 Clin Com Blood Type Antibody Screen Crossmatch 07/13/21 07/13/21 07/13/21 06:16 06:16 06:20 WBC RBC Hgb Hct MCV MCH MCHC RDW Plt Count MPV Immature Gran % (Auto) Neut % (Auto) Lymph % (Auto) Caroline % (Auto) Eos % (Auto) Baso % (Auto) Lymph # (Auto) Caroline # (Auto) Eos # (Auto) Baso # (Auto) Abs Immat Gran (auto) Absolute Neuts (auto) Absolute Nucleated RBC Nucleated RBC % (auto) Neutrophils % (Manual) Band Neutrophils % Lymphocytes % (Manual) Monocytes % (Manual) Eosinophils % (Manual) Metamyelocytes % Myelocytes % Promyelocytes % Abs Neuts (Manual) Lymphocytes # (Manual) Monocytes # (Manual) Eosinophils # (Manual) Metamyelocytes # Myelocytes # Promyelocytes # Smudge Cells Toxic Vacuolation Platelet Estimate Large Platelets Plt Morphology Comment RBC Morphology Polychromasia Hypochromasia Basophilic Stippling Microcytosis Macrocytosis Target Cells Tear Drop Cells Ovalocytes Esthela Cells Acanthocytes (Spur) Smear Tech's Comments Smear Path Review PT INR APTT D-Dimer High Sensitivty 2054 O2 Saturation ABG pH at Pt Temp ABG pCO2 at Pt Temp ABG pO2 at Pt Temp ABG HCO3 ABG Base Excess (Actual) VBG pH 7.59 H VBG pCO2 23 VBG pO2 144 VBG HCO3 23 VBG O2 Saturation 99.0 VBG Base Excess 3.1 Sodium 140 Potassium 4.2 Chloride 107 Carbon Dioxide 24 Anion Gap 13 BUN 33 H Creatinine 0.62 Estim Creat Clear Calc 147.6 Estimated GFR > 60 POC Glucose Random Glucose 114 D Fasting Glucose Estimat Average Glucose Hemoglobin A1c % Lactic Acid Lactic Acid F/U @ 2Hr Lactic Acid F/U @ 4Hr Calcium 10.3 H Phosphorus 3.1 Magnesium 2.3 Ferritin 384 H Total Bilirubin 0.8 Direct Bilirubin 0.4 AST 15 ALT 20 Alkaline Phosphatase 82 Lactate Dehydrogenase 241 Total Creatine Kinase 26 L Troponin I High Sens C-Reactive Protein 0.26 B-Natriuretic Peptide Total Protein 6.2 L Albumin 3.3 L Procalcitonin TSH Urine Color Urine Appearance Urine pH Ur Specific Riparius Urine Protein Urine Glucose (UA) Urine Ketones Urine Blood Urine Nitrite Ur Leukocyte Esterase Urine RBC Urine WBC Urine WBC Clumps Ur Squamous Epith Cells Ur Renal Epithelial Cell Uric Acid Crystals Amorphous Sediment Urine Bacteria Urine Mucus Stool Occult Blood Urine Opiates Screen Urine Fentanyl Screen Ur Barbiturates Screen Ur Phencyclidine Scrn Ur Amphetamines Screen U Benzodiazepines Scrn Urine Cocaine Screen U Marijuana (THC) Screen C. difficile Tox B Gene COVID-19 (KRISTOPHER) COVID-19 Clin Com Blood Type Antibody Screen Crossmatch 07/13/21 07/13/21 07/13/21 07:26 07:29 10:54 WBC 9.9 RBC 4.94 Hgb 12.2 L Hct 40.2 L MCV 81.4 MCH 24.7 L MCHC 30.3 L RDW 18.5 H Plt Count 375 MPV 10.8 Immature Gran % (Auto) 0.6 H Neut % (Auto) 79.9 H Lymph % (Auto) 11.3 L Caroline % (Auto) 8.1 Eos % (Auto) 0.0 Baso % (Auto) 0.1 Lymph # (Auto) 1.1 L Caroline # (Auto) 0.8 Eos # (Auto) 0.0 Baso # (Auto) 0.0 Abs Immat Gran (auto) 0.06 H Absolute Neuts (auto) 7.9 Absolute Nucleated RBC 0.000 Nucleated RBC % (auto) 0.0 Neutrophils % (Manual) Band Neutrophils % Lymphocytes % (Manual) Monocytes % (Manual) Eosinophils % (Manual) Metamyelocytes % Myelocytes % Promyelocytes % Abs Neuts (Manual) Lymphocytes # (Manual) Monocytes # (Manual) Eosinophils # (Manual) Metamyelocytes # Myelocytes # Promyelocytes # Smudge Cells Toxic Vacuolation Platelet Estimate Large Platelets Plt Morphology Comment RBC Morphology Polychromasia Hypochromasia Basophilic Stippling Microcytosis Macrocytosis Target Cells Tear Drop Cells Ovalocytes Drake Cells Acanthocytes (Spur) Smear Tech's Comments Smear Path Review PT INR APTT D-Dimer High Sensitivty O2 Saturation ABG pH at Pt Temp ABG pCO2 at Pt Temp ABG pO2 at Pt Temp ABG HCO3 ABG Base Excess (Actual) VBG pH VBG pCO2 VBG pO2 VBG HCO3 VBG O2 Saturation VBG Base Excess Sodium Potassium Chloride Carbon Dioxide Anion Gap BUN Creatinine Estim Creat Clear Calc Estimated GFR POC Glucose 117 H 138 H Random Glucose Fasting Glucose Estimat Average Glucose Hemoglobin A1c % Lactic Acid Lactic Acid F/U @ 2Hr Lactic Acid F/U @ 4Hr Calcium Phosphorus Magnesium Ferritin Total Bilirubin Direct Bilirubin AST ALT Alkaline Phosphatase Lactate Dehydrogenase Total Creatine Kinase Troponin I High Sens C-Reactive Protein B-Natriuretic Peptide Total Protein Albumin Procalcitonin TSH Urine Color Urine Appearance Urine pH Ur Specific Riparius Urine Protein Urine Glucose (UA) Urine Ketones Urine Blood Urine Nitrite Ur Leukocyte Esterase Urine RBC Urine WBC Urine WBC Clumps Ur Squamous Epith Cells Ur Renal Epithelial Cell Uric Acid Crystals Amorphous Sediment Urine Bacteria Urine Mucus Stool Occult Blood Urine Opiates Screen Urine Fentanyl Screen Ur Barbiturates Screen Ur Phencyclidine Scrn Ur Amphetamines Screen U Benzodiazepines Scrn Urine Cocaine Screen U Marijuana (THC) Screen C. difficile Tox B Gene COVID-19 (KRISTOPHER) COVID-19 Clin Com Blood Type Antibody Screen Crossmatch 07/13/21 07/13/21 07/13/21 13:30 16:05 19:38 WBC RBC Hgb Hct MCV MCH MCHC RDW Plt Count MPV Immature Gran % (Auto) Neut % (Auto) Lymph % (Auto) Caroline % (Auto) Eos % (Auto) Baso % (Auto) Lymph # (Auto) Caroline # (Auto) Eos # (Auto) Baso # (Auto) Abs Immat Gran (auto) Absolute Neuts (auto) Absolute Nucleated RBC Nucleated RBC % (auto) Neutrophils % (Manual) Band Neutrophils % Lymphocytes % (Manual) Monocytes % (Manual) Eosinophils % (Manual) Metamyelocytes % Myelocytes % Promyelocytes % Abs Neuts (Manual) Lymphocytes # (Manual) Monocytes # (Manual) Eosinophils # (Manual) Metamyelocytes # Myelocytes # Promyelocytes # Smudge Cells Toxic Vacuolation Platelet Estimate Large Platelets Plt Morphology Comment RBC Morphology Polychromasia Hypochromasia Basophilic Stippling Microcytosis Macrocytosis Target Cells Tear Drop Cells Ovalocytes Esthela Cells Acanthocytes (Spur) Smear Tech's Comments Smear Path Review PT INR APTT D-Dimer High Sensitivty O2 Saturation ABG pH at Pt Temp ABG pCO2 at Pt Temp ABG pO2 at Pt Temp ABG HCO3 ABG Base Excess (Actual) VBG pH VBG pCO2 VBG pO2 VBG HCO3 VBG O2 Saturation VBG Base Excess Sodium Potassium Chloride Carbon Dioxide Anion Gap BUN Creatinine Estim Creat Clear Calc Estimated GFR POC Glucose 148 H 143 H Random Glucose Fasting Glucose Estimat Average Glucose Hemoglobin A1c % Lactic Acid Lactic Acid F/U @ 2Hr Lactic Acid F/U @ 4Hr Calcium Phosphorus Magnesium Ferritin Total Bilirubin Direct Bilirubin AST ALT Alkaline Phosphatase Lactate Dehydrogenase Total Creatine Kinase Troponin I High Sens C-Reactive Protein B-Natriuretic Peptide Total Protein Albumin Procalcitonin TSH Urine Color Urine Appearance Urine pH Ur Specific Riparius Urine Protein Urine Glucose (UA) Urine Ketones Urine Blood Urine Nitrite Ur Leukocyte Esterase Urine RBC Urine WBC Urine WBC Clumps Ur Squamous Epith Cells Ur Renal Epithelial Cell Uric Acid Crystals Amorphous Sediment Urine Bacteria Urine Mucus Stool Occult Blood Urine Opiates Screen Urine Fentanyl Screen Ur Barbiturates Screen Ur Phencyclidine Scrn Ur Amphetamines Screen U Benzodiazepines Scrn Urine Cocaine Screen U Marijuana (THC) Screen C. difficile Tox B Gene COVID-19 (KRISTOPHER) Negative COVID-19 Clin Com See Note Blood Type Antibody Screen Crossmatch 07/13/21 07/14/21 07/14/21 23:19 06:26 06:59 WBC 7.3 RBC 4.54 L Hgb 11.4 L Hct 37.4 L MCV 82.4 MCH 25.1 L MCHC 30.5 L RDW 18.1 H Plt Count 411 H MPV 9.5 Immature Gran % (Auto) 0.5 H Neut % (Auto) 88.0 H Lymph % (Auto) 5.2 L Caroline % (Auto) 6.3 Eos % (Auto) 0.0 Baso % (Auto) 0.0 Lymph # (Auto) 0.4 L Caroline # (Auto) 0.5 Eos # (Auto) 0.0 Baso # (Auto) 0.0 Abs Immat Gran (auto) 0.04 H Absolute Neuts (auto) 6.4 Absolute Nucleated RBC 0.000 Nucleated RBC % (auto) 0.0 Neutrophils % (Manual) Band Neutrophils % Lymphocytes % (Manual) Monocytes % (Manual) Eosinophils % (Manual) Metamyelocytes % Myelocytes % Promyelocytes % Abs Neuts (Manual) Lymphocytes # (Manual) Monocytes # (Manual) Eosinophils # (Manual) Metamyelocytes # Myelocytes # Promyelocytes # Smudge Cells Toxic Vacuolation Platelet Estimate Large Platelets Plt Morphology Comment RBC Morphology Polychromasia Hypochromasia Basophilic Stippling Microcytosis Macrocytosis Target Cells Tear Drop Cells Ovalocytes Esthela Cells Acanthocytes (Spur) Smear Tech's Comments Smear Path Review PT INR APTT D-Dimer High Sensitivty O2 Saturation ABG pH at Pt Temp ABG pCO2 at Pt Temp ABG pO2 at Pt Temp ABG HCO3 ABG Base Excess (Actual) VBG pH VBG pCO2 VBG pO2 VBG HCO3 VBG O2 Saturation VBG Base Excess Sodium Potassium Chloride Carbon Dioxide Anion Gap BUN Creatinine Estim Creat Clear Calc Estimated GFR POC Glucose 144 H 194 H Random Glucose Fasting Glucose Estimat Average Glucose Hemoglobin A1c % Lactic Acid Lactic Acid F/U @ 2Hr Lactic Acid F/U @ 4Hr Calcium Phosphorus Magnesium Ferritin Total Bilirubin Direct Bilirubin AST ALT Alkaline Phosphatase Lactate Dehydrogenase Total Creatine Kinase Troponin I High Sens C-Reactive Protein B-Natriuretic Peptide Total Protein Albumin Procalcitonin TSH Urine Color Urine Appearance Urine pH Ur Specific Riparius Urine Protein Urine Glucose (UA) Urine Ketones Urine Blood Urine Nitrite Ur Leukocyte Esterase Urine RBC Urine WBC Urine WBC Clumps Ur Squamous Epith Cells Ur Renal Epithelial Cell Uric Acid Crystals Amorphous Sediment Urine Bacteria Urine Mucus Stool Occult Blood Urine Opiates Screen Urine Fentanyl Screen Ur Barbiturates Screen Ur Phencyclidine Scrn Ur Amphetamines Screen U Benzodiazepines Scrn Urine Cocaine Screen U Marijuana (THC) Screen C. difficile Tox B Gene COVID-19 (KRISTOPHER) COVID-19 Clin Com Blood Type Antibody Screen Crossmatch 07/14/21 07/14/21 07/14/21 06:59 06:59 07:09 WBC RBC Hgb Hct MCV MCH MCHC RDW Plt Count MPV Immature Gran % (Auto) Neut % (Auto) Lymph % (Auto) Caroline % (Auto) Eos % (Auto) Baso % (Auto) Lymph # (Auto) Caroline # (Auto) Eos # (Auto) Baso # (Auto) Abs Immat Gran (auto) Absolute Neuts (auto) Absolute Nucleated RBC Nucleated RBC % (auto) Neutrophils % (Manual) Band Neutrophils % Lymphocytes % (Manual) Monocytes % (Manual) Eosinophils % (Manual) Metamyelocytes % Myelocytes % Promyelocytes % Abs Neuts (Manual) Lymphocytes # (Manual) Monocytes # (Manual) Eosinophils # (Manual) Metamyelocytes # Myelocytes # Promyelocytes # Smudge Cells Toxic Vacuolation Platelet Estimate Large Platelets Plt Morphology Comment RBC Morphology Polychromasia Hypochromasia Basophilic Stippling Microcytosis Macrocytosis Target Cells Tear Drop Cells Ovalocytes Drake Cells Acanthocytes (Spur) Smear Tech's Comments Smear Path Review PT INR APTT D-Dimer High Sensitivty 2073 O2 Saturation ABG pH at Pt Temp ABG pCO2 at Pt Temp ABG pO2 at Pt Temp ABG HCO3 ABG Base Excess (Actual) VBG pH 7.49 H VBG pCO2 35 VBG pO2 60 VBG HCO3 27 H VBG O2 Saturation 88.0 VBG Base Excess 4.2 Sodium 141 Potassium 4.3 Chloride 106 Carbon Dioxide 28 Anion Gap 11 L BUN 33 H Creatinine 0.66 Estim Creat Clear Calc 138.6 Estimated GFR > 60 POC Glucose Random Glucose 206 H D Fasting Glucose Estimat Average Glucose Hemoglobin A1c % Lactic Acid Lactic Acid F/U @ 2Hr Lactic Acid F/U @ 4Hr Calcium 10.3 H Phosphorus 3.1 Magnesium 2.0 Ferritin 360 H Total Bilirubin 1.0 Direct Bilirubin 0.4 AST 12 ALT 21 Alkaline Phosphatase 83 Lactate Dehydrogenase 238 Total Creatine Kinase 18 L Troponin I High Sens C-Reactive Protein 0.21 B-Natriuretic Peptide Total Protein 6.2 L Albumin 3.4 L Procalcitonin TSH Urine Color Urine Appearance Urine pH Ur Specific Riparius Urine Protein Urine Glucose (UA) Urine Ketones Urine Blood Urine Nitrite Ur Leukocyte Esterase Urine RBC Urine WBC Urine WBC Clumps Ur Squamous Epith Cells Ur Renal Epithelial Cell Uric Acid Crystals Amorphous Sediment Urine Bacteria Urine Mucus Stool Occult Blood Urine Opiates Screen Urine Fentanyl Screen Ur Barbiturates Screen Ur Phencyclidine Scrn Ur Amphetamines Screen U Benzodiazepines Scrn Urine Cocaine Screen U Marijuana (THC) Screen C. difficile Tox B Gene COVID-19 (KRISTOPHER) COVID-19 Clin Com Blood Type Antibody Screen Crossmatch 07/14/21 07/14/21 07/14/21 11:50 16:03 19:38 WBC RBC Hgb Hct MCV MCH MCHC RDW Plt Count MPV Immature Gran % (Auto) Neut % (Auto) Lymph % (Auto) Caroline % (Auto) Eos % (Auto) Baso % (Auto) Lymph # (Auto) Caroline # (Auto) Eos # (Auto) Baso # (Auto) Abs Immat Gran (auto) Absolute Neuts (auto) Absolute Nucleated RBC Nucleated RBC % (auto) Neutrophils % (Manual) Band Neutrophils % Lymphocytes % (Manual) Monocytes % (Manual) Eosinophils % (Manual) Metamyelocytes % Myelocytes % Promyelocytes % Abs Neuts (Manual) Lymphocytes # (Manual) Monocytes # (Manual) Eosinophils # (Manual) Metamyelocytes # Myelocytes # Promyelocytes # Smudge Cells Toxic Vacuolation Platelet Estimate Large Platelets Plt Morphology Comment RBC Morphology Polychromasia Hypochromasia Basophilic Stippling Microcytosis Macrocytosis Target Cells Tear Drop Cells Ovalocytes Esthela Cells Acanthocytes (Spur) Smear Tech's Comments Smear Path Review PT INR APTT D-Dimer High Sensitivty O2 Saturation ABG pH at Pt Temp ABG pCO2 at Pt Temp ABG pO2 at Pt Temp ABG HCO3 ABG Base Excess (Actual) VBG pH VBG pCO2 VBG pO2 VBG HCO3 VBG O2 Saturation VBG Base Excess Sodium Potassium Chloride Carbon Dioxide Anion Gap BUN Creatinine Estim Creat Clear Calc Estimated GFR POC Glucose 196 H 237 H 198 H Random Glucose Fasting Glucose Estimat Average Glucose Hemoglobin A1c % Lactic Acid Lactic Acid F/U @ 2Hr Lactic Acid F/U @ 4Hr Calcium Phosphorus Magnesium Ferritin Total Bilirubin Direct Bilirubin AST ALT Alkaline Phosphatase Lactate Dehydrogenase Total Creatine Kinase Troponin I High Sens C-Reactive Protein B-Natriuretic Peptide Total Protein Albumin Procalcitonin TSH Urine Color Urine Appearance Urine pH Ur Specific Riparius Urine Protein Urine Glucose (UA) Urine Ketones Urine Blood Urine Nitrite Ur Leukocyte Esterase Urine RBC Urine WBC Urine WBC Clumps Ur Squamous Epith Cells Ur Renal Epithelial Cell Uric Acid Crystals Amorphous Sediment Urine Bacteria Urine Mucus Stool Occult Blood Urine Opiates Screen Urine Fentanyl Screen Ur Barbiturates Screen Ur Phencyclidine Scrn Ur Amphetamines Screen U Benzodiazepines Scrn Urine Cocaine Screen U Marijuana (THC) Screen C. difficile Tox B Gene COVID-19 (KRISTOPHER) COVID-19 Clin Com Blood Type Antibody Screen Crossmatch 07/15/21 07/15/21 07/15/21 01:00 05:57 06:15 WBC 11.6 H RBC 4.55 L Hgb 11.5 L Hct 37.5 L MCV 82.4 MCH 25.3 L MCHC 30.7 L RDW 17.9 H Plt Count 374 MPV 9.8 Immature Gran % (Auto) 0.3 Neut % (Auto) 79.1 H Lymph % (Auto) 13.1 L Caroline % (Auto) 7.3 Eos % (Auto) 0.1 Baso % (Auto) 0.1 Lymph # (Auto) 1.5 Caroline # (Auto) 0.9 Eos # (Auto) 0.0 Baso # (Auto) 0.0 Abs Immat Gran (auto) 0.04 H Absolute Neuts (auto) 9.2 H Absolute Nucleated RBC 0.000 Nucleated RBC % (auto) 0.0 Neutrophils % (Manual) Band Neutrophils % Lymphocytes % (Manual) Monocytes % (Manual) Eosinophils % (Manual) Metamyelocytes % Myelocytes % Promyelocytes % Abs Neuts (Manual) Lymphocytes # (Manual) Monocytes # (Manual) Eosinophils # (Manual) Metamyelocytes # Myelocytes # Promyelocytes # Smudge Cells Toxic Vacuolation Platelet Estimate Large Platelets Plt Morphology Comment RBC Morphology Polychromasia Hypochromasia Basophilic Stippling Microcytosis Macrocytosis Target Cells Tear Drop Cells Ovalocytes Drake Cells Acanthocytes (Spur) Smear Tech's Comments Smear Path Review PT INR APTT D-Dimer High Sensitivty O2 Saturation ABG pH at Pt Temp ABG pCO2 at Pt Temp ABG pO2 at Pt Temp ABG HCO3 ABG Base Excess (Actual) VBG pH VBG pCO2 VBG pO2 VBG HCO3 VBG O2 Saturation VBG Base Excess Sodium Potassium Chloride Carbon Dioxide Anion Gap BUN Creatinine Estim Creat Clear Calc Estimated GFR POC Glucose 98 68 Random Glucose Fasting Glucose Estimat Average Glucose Hemoglobin A1c % Lactic Acid Lactic Acid F/U @ 2Hr Lactic Acid F/U @ 4Hr Calcium Phosphorus Magnesium Ferritin Total Bilirubin Direct Bilirubin AST ALT Alkaline Phosphatase Lactate Dehydrogenase Total Creatine Kinase Troponin I High Sens C-Reactive Protein B-Natriuretic Peptide Total Protein Albumin Procalcitonin TSH Urine Color Urine Appearance Urine pH Ur Specific Riparius Urine Protein Urine Glucose (UA) Urine Ketones Urine Blood Urine Nitrite Ur Leukocyte Esterase Urine RBC Urine WBC Urine WBC Clumps Ur Squamous Epith Cells Ur Renal Epithelial Cell Uric Acid Crystals Amorphous Sediment Urine Bacteria Urine Mucus Stool Occult Blood Urine Opiates Screen Urine Fentanyl Screen Ur Barbiturates Screen Ur Phencyclidine Scrn Ur Amphetamines Screen U Benzodiazepines Scrn Urine Cocaine Screen U Marijuana (THC) Screen C. difficile Tox B Gene COVID-19 (KRISTOPHER) COVID-19 Clin Com Blood Type Antibody Screen Crossmatch 07/15/21 07/15/21 07/15/21 06:15 06:15 06:20 WBC RBC Hgb Hct MCV MCH MCHC RDW Plt Count MPV Immature Gran % (Auto) Neut % (Auto) Lymph % (Auto) Caroline % (Auto) Eos % (Auto) Baso % (Auto) Lymph # (Auto) Caroline # (Auto) Eos # (Auto) Baso # (Auto) Abs Immat Gran (auto) Absolute Neuts (auto) Absolute Nucleated RBC Nucleated RBC % (auto) Neutrophils % (Manual) Band Neutrophils % Lymphocytes % (Manual) Monocytes % (Manual) Eosinophils % (Manual) Metamyelocytes % Myelocytes % Promyelocytes % Abs Neuts (Manual) Lymphocytes # (Manual) Monocytes # (Manual) Eosinophils # (Manual) Metamyelocytes # Myelocytes # Promyelocytes # Smudge Cells Toxic Vacuolation Platelet Estimate Large Platelets Plt Morphology Comment RBC Morphology Polychromasia Hypochromasia Basophilic Stippling Microcytosis Macrocytosis Target Cells Tear Drop Cells Ovalocytes Drake Cells Acanthocytes (Spur) Smear Tech's Comments Smear Path Review PT INR APTT D-Dimer High Sensitivty 3635 O2 Saturation ABG pH at Pt Temp ABG pCO2 at Pt Temp ABG pO2 at Pt Temp ABG HCO3 ABG Base Excess (Actual) VBG pH 7.46 H VBG pCO2 44 VBG pO2 38 VBG HCO3 31 H VBG O2 Saturation 58.0 VBG Base Excess 7.3 Sodium 141 Potassium 3.7 Chloride 105 Carbon Dioxide 31 H Anion Gap 9 L BUN 28 H Creatinine 0.60 Estim Creat Clear Calc 152.5 Estimated GFR > 60 POC Glucose Random Glucose 95 D Fasting Glucose Estimat Average Glucose Hemoglobin A1c % Lactic Acid Lactic Acid F/U @ 2Hr Lactic Acid F/U @ 4Hr Calcium 10.5 H Phosphorus 2.4 L Magnesium 1.9 Ferritin 254 H Total Bilirubin 1.1 H Direct Bilirubin 0.4 AST 14 ALT 23 Alkaline Phosphatase 78 Lactate Dehydrogenase 224 Total Creatine Kinase 17 L Troponin I High Sens C-Reactive Protein 0.18 B-Natriuretic Peptide Total Protein 5.8 L Albumin 3.2 L Procalcitonin TSH Urine Color Urine Appearance Urine pH Ur Specific Riparius Urine Protein Urine Glucose (UA) Urine Ketones Urine Blood Urine Nitrite Ur Leukocyte Esterase Urine RBC Urine WBC Urine WBC Clumps Ur Squamous Epith Cells Ur Renal Epithelial Cell Uric Acid Crystals Amorphous Sediment Urine Bacteria Urine Mucus Stool Occult Blood Urine Opiates Screen Urine Fentanyl Screen Ur Barbiturates Screen Ur Phencyclidine Scrn Ur Amphetamines Screen U Benzodiazepines Scrn Urine Cocaine Screen U Marijuana (THC) Screen C. difficile Tox B Gene COVID-19 (KRISTOPHER) COVID-19 Clin Com Blood Type Antibody Screen Crossmatch 07/15/21 07/15/21 07/15/21 08:06 11:23 16:02 WBC RBC Hgb Hct MCV MCH MCHC RDW Plt Count MPV Immature Gran % (Auto) Neut % (Auto) Lymph % (Auto) Caroline % (Auto) Eos % (Auto) Baso % (Auto) Lymph # (Auto) Caroline # (Auto) Eos # (Auto) Baso # (Auto) Abs Immat Gran (auto) Absolute Neuts (auto) Absolute Nucleated RBC Nucleated RBC % (auto) Neutrophils % (Manual) Band Neutrophils % Lymphocytes % (Manual) Monocytes % (Manual) Eosinophils % (Manual) Metamyelocytes % Myelocytes % Promyelocytes % Abs Neuts (Manual) Lymphocytes # (Manual) Monocytes # (Manual) Eosinophils # (Manual) Metamyelocytes # Myelocytes # Promyelocytes # Smudge Cells Toxic Vacuolation Platelet Estimate Large Platelets Plt Morphology Comment RBC Morphology Polychromasia Hypochromasia Basophilic Stippling Microcytosis Macrocytosis Target Cells Tear Drop Cells Ovalocytes Esthela Cells Acanthocytes (Spur) Smear Tech's Comments Smear Path Review PT INR APTT D-Dimer High Sensitivty O2 Saturation ABG pH at Pt Temp ABG pCO2 at Pt Temp ABG pO2 at Pt Temp ABG HCO3 ABG Base Excess (Actual) VBG pH VBG pCO2 VBG pO2 VBG HCO3 VBG O2 Saturation VBG Base Excess Sodium Potassium Chloride Carbon Dioxide Anion Gap BUN Creatinine Estim Creat Clear Calc Estimated GFR POC Glucose 96 110 137 H Random Glucose Fasting Glucose Estimat Average Glucose Hemoglobin A1c % Lactic Acid Lactic Acid F/U @ 2Hr Lactic Acid F/U @ 4Hr Calcium Phosphorus Magnesium Ferritin Total Bilirubin Direct Bilirubin AST ALT Alkaline Phosphatase Lactate Dehydrogenase Total Creatine Kinase Troponin I High Sens C-Reactive Protein B-Natriuretic Peptide Total Protein Albumin Procalcitonin TSH Urine Color Urine Appearance Urine pH Ur Specific Riparius Urine Protein Urine Glucose (UA) Urine Ketones Urine Blood Urine Nitrite Ur Leukocyte Esterase Urine RBC Urine WBC Urine WBC Clumps Ur Squamous Epith Cells Ur Renal Epithelial Cell Uric Acid Crystals Amorphous Sediment Urine Bacteria Urine Mucus Stool Occult Blood Urine Opiates Screen Urine Fentanyl Screen Ur Barbiturates Screen Ur Phencyclidine Scrn Ur Amphetamines Screen U Benzodiazepines Scrn Urine Cocaine Screen U Marijuana (THC) Screen C. difficile Tox B Gene COVID-19 (KRISTOPHER) COVID-19 Clin Com Blood Type Antibody Screen Crossmatch 07/15/21 07/16/21 07/16/21 20:29 06:12 06:12 WBC 12.3 H RBC 4.70 Hgb 11.8 L Hct 38.7 L MCV 82.3 MCH 25.1 L MCHC 30.5 L RDW 18.1 H Plt Count 389 MPV 9.5 Immature Gran % (Auto) 0.6 H Neut % (Auto) 78.7 H Lymph % (Auto) 14.2 L Caroline % (Auto) 5.6 Eos % (Auto) 0.9 Baso % (Auto) 0.0 Lymph # (Auto) 1.8 Caroline # (Auto) 0.7 Eos # (Auto) 0.1 Baso # (Auto) 0.0 Abs Immat Gran (auto) 0.07 H Absolute Neuts (auto) 9.7 H Absolute Nucleated RBC 0.000 Nucleated RBC % (auto) 0.0 Neutrophils % (Manual) Band Neutrophils % Lymphocytes % (Manual) Monocytes % (Manual) Eosinophils % (Manual) Metamyelocytes % Myelocytes % Promyelocytes % Abs Neuts (Manual) Lymphocytes # (Manual) Monocytes # (Manual) Eosinophils # (Manual) Metamyelocytes # Myelocytes # Promyelocytes # Smudge Cells Toxic Vacuolation Platelet Estimate Large Platelets Plt Morphology Comment RBC Morphology Polychromasia Hypochromasia Basophilic Stippling Microcytosis Macrocytosis Target Cells Tear Drop Cells Ovalocytes Esthela Cells Acanthocytes (Spur) Smear Tech's Comments Smear Path Review PT INR APTT D-Dimer High Sensitivty 3883 O2 Saturation ABG pH at Pt Temp ABG pCO2 at Pt Temp ABG pO2 at Pt Temp ABG HCO3 ABG Base Excess (Actual) VBG pH VBG pCO2 VBG pO2 VBG HCO3 VBG O2 Saturation VBG Base Excess Sodium Potassium Chloride Carbon Dioxide Anion Gap BUN Creatinine Estim Creat Clear Calc Estimated GFR POC Glucose 109 Random Glucose Fasting Glucose Estimat Average Glucose Hemoglobin A1c % Lactic Acid Lactic Acid F/U @ 2Hr Lactic Acid F/U @ 4Hr Calcium Phosphorus Magnesium Ferritin Total Bilirubin Direct Bilirubin AST ALT Alkaline Phosphatase Lactate Dehydrogenase Total Creatine Kinase Troponin I High Sens C-Reactive Protein B-Natriuretic Peptide Total Protein Albumin Procalcitonin TSH Urine Color Urine Appearance Urine pH Ur Specific Riparius Urine Protein Urine Glucose (UA) Urine Ketones Urine Blood Urine Nitrite Ur Leukocyte Esterase Urine RBC Urine WBC Urine WBC Clumps Ur Squamous Epith Cells Ur Renal Epithelial Cell Uric Acid Crystals Amorphous Sediment Urine Bacteria Urine Mucus Stool Occult Blood Urine Opiates Screen Urine Fentanyl Screen Ur Barbiturates Screen Ur Phencyclidine Scrn Ur Amphetamines Screen U Benzodiazepines Scrn Urine Cocaine Screen U Marijuana (THC) Screen C. difficile Tox B Gene COVID-19 (KRISTOPHER) COVID-19 Clin Com Blood Type Antibody Screen Crossmatch 07/16/21 07/16/21 07/16/21 06:12 06:15 07:08 WBC RBC Hgb Hct MCV MCH MCHC RDW Plt Count MPV Immature Gran % (Auto) Neut % (Auto) Lymph % (Auto) Caroline % (Auto) Eos % (Auto) Baso % (Auto) Lymph # (Auto) Caroline # (Auto) Eos # (Auto) Baso # (Auto) Abs Immat Gran (auto) Absolute Neuts (auto) Absolute Nucleated RBC Nucleated RBC % (auto) Neutrophils % (Manual) Band Neutrophils % Lymphocytes % (Manual) Monocytes % (Manual) Eosinophils % (Manual) Metamyelocytes % Myelocytes % Promyelocytes % Abs Neuts (Manual) Lymphocytes # (Manual) Monocytes # (Manual) Eosinophils # (Manual) Metamyelocytes # Myelocytes # Promyelocytes # Smudge Cells Toxic Vacuolation Platelet Estimate Large Platelets Plt Morphology Comment RBC Morphology Polychromasia Hypochromasia Basophilic Stippling Microcytosis Macrocytosis Target Cells Tear Drop Cells Ovalocytes Drake Cells Acanthocytes (Spur) Smear Tech's Comments Smear Path Review PT INR APTT D-Dimer High Sensitivty O2 Saturation ABG pH at Pt Temp ABG pCO2 at Pt Temp ABG pO2 at Pt Temp ABG HCO3 ABG Base Excess (Actual) VBG pH 7.54 H VBG pCO2 36 VBG pO2 43 VBG HCO3 32 H VBG O2 Saturation 71.0 VBG Base Excess 9.3 Sodium 141 Potassium 3.3 Chloride 103 Carbon Dioxide 29 Anion Gap 12 BUN 19 H Creatinine 0.59 Estim Creat Clear Calc 155.1 Estimated GFR > 60 POC Glucose 99 Random Glucose 95 Fasting Glucose Estimat Average Glucose Hemoglobin A1c % Lactic Acid Lactic Acid F/U @ 2Hr Lactic Acid F/U @ 4Hr Calcium 10.0 Phosphorus 2.8 Magnesium 1.9 Ferritin 331 H Total Bilirubin 1.2 H Direct Bilirubin 0.5 AST 18 ALT 27 Alkaline Phosphatase 86 Lactate Dehydrogenase 254 Total Creatine Kinase 18 L Troponin I High Sens C-Reactive Protein B-Natriuretic Peptide Total Protein 5.7 L Albumin 3.1 L Procalcitonin TSH Urine Color Urine Appearance Urine pH Ur Specific Riparius Urine Protein Urine Glucose (UA) Urine Ketones Urine Blood Urine Nitrite Ur Leukocyte Esterase Urine RBC Urine WBC Urine WBC Clumps Ur Squamous Epith Cells Ur Renal Epithelial Cell Uric Acid Crystals Amorphous Sediment Urine Bacteria Urine Mucus Stool Occult Blood Urine Opiates Screen Urine Fentanyl Screen Ur Barbiturates Screen Ur Phencyclidine Scrn Ur Amphetamines Screen U Benzodiazepines Scrn Urine Cocaine Screen U Marijuana (THC) Screen C. difficile Tox B Gene COVID-19 (KRISTOPHER) COVID-19 Clin Com Blood Type Antibody Screen Crossmatch 07/16/21 07/16/21 07/16/21 11:01 15:27 19:58 WBC RBC Hgb Hct MCV MCH MCHC RDW Plt Count MPV Immature Gran % (Auto) Neut % (Auto) Lymph % (Auto) Caroline % (Auto) Eos % (Auto) Baso % (Auto) Lymph # (Auto) Caroline # (Auto) Eos # (Auto) Baso # (Auto) Abs Immat Gran (auto) Absolute Neuts (auto) Absolute Nucleated RBC Nucleated RBC % (auto) Neutrophils % (Manual) Band Neutrophils % Lymphocytes % (Manual) Monocytes % (Manual) Eosinophils % (Manual) Metamyelocytes % Myelocytes % Promyelocytes % Abs Neuts (Manual) Lymphocytes # (Manual) Monocytes # (Manual) Eosinophils # (Manual) Metamyelocytes # Myelocytes # Promyelocytes # Smudge Cells Toxic Vacuolation Platelet Estimate Large Platelets Plt Morphology Comment RBC Morphology Polychromasia Hypochromasia Basophilic Stippling Microcytosis Macrocytosis Target Cells Tear Drop Cells Ovalocytes Drake Cells Acanthocytes (Spur) Smear Tech's Comments Smear Path Review PT INR APTT D-Dimer High Sensitivty O2 Saturation ABG pH at Pt Temp ABG pCO2 at Pt Temp ABG pO2 at Pt Temp ABG HCO3 ABG Base Excess (Actual) VBG pH VBG pCO2 VBG pO2 VBG HCO3 VBG O2 Saturation VBG Base Excess Sodium Potassium Chloride Carbon Dioxide Anion Gap BUN Creatinine Estim Creat Clear Calc Estimated GFR POC Glucose 234 H 69 82 Random Glucose Fasting Glucose Estimat Average Glucose Hemoglobin A1c % Lactic Acid Lactic Acid F/U @ 2Hr Lactic Acid F/U @ 4Hr Calcium Phosphorus Magnesium Ferritin Total Bilirubin Direct Bilirubin AST ALT Alkaline Phosphatase Lactate Dehydrogenase Total Creatine Kinase Troponin I High Sens C-Reactive Protein B-Natriuretic Peptide Total Protein Albumin Procalcitonin TSH Urine Color Urine Appearance Urine pH Ur Specific Riparius Urine Protein Urine Glucose (UA) Urine Ketones Urine Blood Urine Nitrite Ur Leukocyte Esterase Urine RBC Urine WBC Urine WBC Clumps Ur Squamous Epith Cells Ur Renal Epithelial Cell Uric Acid Crystals Amorphous Sediment Urine Bacteria Urine Mucus Stool Occult Blood Urine Opiates Screen Urine Fentanyl Screen Ur Barbiturates Screen Ur Phencyclidine Scrn Ur Amphetamines Screen U Benzodiazepines Scrn Urine Cocaine Screen U Marijuana (THC) Screen C. difficile Tox B Gene COVID-19 (KRISTOPHER) COVID-19 Clin Com Blood Type Antibody Screen Crossmatch 07/17/21 07/17/21 07/17/21 07:22 08:23 10:58 WBC RBC Hgb Hct MCV MCH MCHC RDW Plt Count MPV Immature Gran % (Auto) Neut % (Auto) Lymph % (Auto) Caroline % (Auto) Eos % (Auto) Baso % (Auto) Lymph # (Auto) Caroline # (Auto) Eos # (Auto) Baso # (Auto) Abs Immat Gran (auto) Absolute Neuts (auto) Absolute Nucleated RBC Nucleated RBC % (auto) Neutrophils % (Manual) Band Neutrophils % Lymphocytes % (Manual) Monocytes % (Manual) Eosinophils % (Manual) Metamyelocytes % Myelocytes % Promyelocytes % Abs Neuts (Manual) Lymphocytes # (Manual) Monocytes # (Manual) Eosinophils # (Manual) Metamyelocytes # Myelocytes # Promyelocytes # Smudge Cells Toxic Vacuolation Platelet Estimate Large Platelets Plt Morphology Comment RBC Morphology Polychromasia Hypochromasia Basophilic Stippling Microcytosis Macrocytosis Target Cells Tear Drop Cells Ovalocytes Esthela Cells Acanthocytes (Spur) Smear Tech's Comments Smear Path Review PT INR APTT D-Dimer High Sensitivty O2 Saturation ABG pH at Pt Temp ABG pCO2 at Pt Temp ABG pO2 at Pt Temp ABG HCO3 ABG Base Excess (Actual) VBG pH VBG pCO2 VBG pO2 VBG HCO3 VBG O2 Saturation VBG Base Excess Sodium Potassium Chloride Carbon Dioxide Anion Gap BUN Creatinine Estim Creat Clear Calc Estimated GFR POC Glucose 62 69 81 Random Glucose Fasting Glucose Estimat Average Glucose Hemoglobin A1c % Lactic Acid Lactic Acid F/U @ 2Hr Lactic Acid F/U @ 4Hr Calcium Phosphorus Magnesium Ferritin Total Bilirubin Direct Bilirubin AST ALT Alkaline Phosphatase Lactate Dehydrogenase Total Creatine Kinase Troponin I High Sens C-Reactive Protein B-Natriuretic Peptide Total Protein Albumin Procalcitonin TSH Urine Color Urine Appearance Urine pH Ur Specific Riparius Urine Protein Urine Glucose (UA) Urine Ketones Urine Blood Urine Nitrite Ur Leukocyte Esterase Urine RBC Urine WBC Urine WBC Clumps Ur Squamous Epith Cells Ur Renal Epithelial Cell Uric Acid Crystals Amorphous Sediment Urine Bacteria Urine Mucus Stool Occult Blood Urine Opiates Screen Urine Fentanyl Screen Ur Barbiturates Screen Ur Phencyclidine Scrn Ur Amphetamines Screen U Benzodiazepines Scrn Urine Cocaine Screen U Marijuana (THC) Screen C. difficile Tox B Gene COVID-19 (KRISTOPHER) COVID-19 Clin Com Blood Type Antibody Screen Crossmatch 07/17/21 07/17/21 07/18/21 16:08 20:31 01:31 WBC RBC Hgb Hct MCV MCH MCHC RDW Plt Count MPV Immature Gran % (Auto) Neut % (Auto) Lymph % (Auto) Caroline % (Auto) Eos % (Auto) Baso % (Auto) Lymph # (Auto) Caroline # (Auto) Eos # (Auto) Baso # (Auto) Abs Immat Gran (auto) Absolute Neuts (auto) Absolute Nucleated RBC Nucleated RBC % (auto) Neutrophils % (Manual) Band Neutrophils % Lymphocytes % (Manual) Monocytes % (Manual) Eosinophils % (Manual) Metamyelocytes % Myelocytes % Promyelocytes % Abs Neuts (Manual) Lymphocytes # (Manual) Monocytes # (Manual) Eosinophils # (Manual) Metamyelocytes # Myelocytes # Promyelocytes # Smudge Cells Toxic Vacuolation Platelet Estimate Large Platelets Plt Morphology Comment RBC Morphology Polychromasia Hypochromasia Basophilic Stippling Microcytosis Macrocytosis Target Cells Tear Drop Cells Ovalocytes Esthela Cells Acanthocytes (Spur) Smear Tech's Comments Smear Path Review PT INR APTT D-Dimer High Sensitivty O2 Saturation ABG pH at Pt Temp ABG pCO2 at Pt Temp ABG pO2 at Pt Temp ABG HCO3 ABG Base Excess (Actual) VBG pH VBG pCO2 VBG pO2 VBG HCO3 VBG O2 Saturation VBG Base Excess Sodium Potassium Chloride Carbon Dioxide Anion Gap BUN Creatinine Estim Creat Clear Calc Estimated GFR POC Glucose 76 76 47 L* Random Glucose Fasting Glucose Estimat Average Glucose Hemoglobin A1c % Lactic Acid Lactic Acid F/U @ 2Hr Lactic Acid F/U @ 4Hr Calcium Phosphorus Magnesium Ferritin Total Bilirubin Direct Bilirubin AST ALT Alkaline Phosphatase Lactate Dehydrogenase Total Creatine Kinase Troponin I High Sens C-Reactive Protein B-Natriuretic Peptide Total Protein Albumin Procalcitonin TSH Urine Color Urine Appearance Urine pH Ur Specific Riparius Urine Protein Urine Glucose (UA) Urine Ketones Urine Blood Urine Nitrite Ur Leukocyte Esterase Urine RBC Urine WBC Urine WBC Clumps Ur Squamous Epith Cells Ur Renal Epithelial Cell Uric Acid Crystals Amorphous Sediment Urine Bacteria Urine Mucus Stool Occult Blood Urine Opiates Screen Urine Fentanyl Screen Ur Barbiturates Screen Ur Phencyclidine Scrn Ur Amphetamines Screen U Benzodiazepines Scrn Urine Cocaine Screen U Marijuana (THC) Screen C. difficile Tox B Gene COVID-19 (KRISTOPHER) COVID-19 Clin Com Blood Type Antibody Screen Crossmatch 07/18/21 07/18/21 07/18/21 01:51 05:54 07:09 WBC RBC Hgb Hct MCV MCH MCHC RDW Plt Count MPV Immature Gran % (Auto) Neut % (Auto) Lymph % (Auto) Caroline % (Auto) Eos % (Auto) Baso % (Auto) Lymph # (Auto) Caroline # (Auto) Eos # (Auto) Baso # (Auto) Abs Immat Gran (auto) Absolute Neuts (auto) Absolute Nucleated RBC Nucleated RBC % (auto) Neutrophils % (Manual) Band Neutrophils % Lymphocytes % (Manual) Monocytes % (Manual) Eosinophils % (Manual) Metamyelocytes % Myelocytes % Promyelocytes % Abs Neuts (Manual) Lymphocytes # (Manual) Monocytes # (Manual) Eosinophils # (Manual) Metamyelocytes # Myelocytes # Promyelocytes # Smudge Cells Toxic Vacuolation Platelet Estimate Large Platelets Plt Morphology Comment RBC Morphology Polychromasia Hypochromasia Basophilic Stippling Microcytosis Macrocytosis Target Cells Tear Drop Cells Ovalocytes Esthela Cells Acanthocytes (Spur) Smear Tech's Comments Smear Path Review PT INR APTT D-Dimer High Sensitivty O2 Saturation ABG pH at Pt Temp ABG pCO2 at Pt Temp ABG pO2 at Pt Temp ABG HCO3 ABG Base Excess (Actual) VBG pH VBG pCO2 VBG pO2 VBG HCO3 VBG O2 Saturation VBG Base Excess Sodium Potassium Chloride Carbon Dioxide Anion Gap BUN Creatinine Estim Creat Clear Calc Estimated GFR POC Glucose 178 H 76 104 Random Glucose Fasting Glucose Estimat Average Glucose Hemoglobin A1c % Lactic Acid Lactic Acid F/U @ 2Hr Lactic Acid F/U @ 4Hr Calcium Phosphorus Magnesium Ferritin Total Bilirubin Direct Bilirubin AST ALT Alkaline Phosphatase Lactate Dehydrogenase Total Creatine Kinase Troponin I High Sens C-Reactive Protein B-Natriuretic Peptide Total Protein Albumin Procalcitonin TSH Urine Color Urine Appearance Urine pH Ur Specific Riparius Urine Protein Urine Glucose (UA) Urine Ketones Urine Blood Urine Nitrite Ur Leukocyte Esterase Urine RBC Urine WBC Urine WBC Clumps Ur Squamous Epith Cells Ur Renal Epithelial Cell Uric Acid Crystals Amorphous Sediment Urine Bacteria Urine Mucus Stool Occult Blood Urine Opiates Screen Urine Fentanyl Screen Ur Barbiturates Screen Ur Phencyclidine Scrn Ur Amphetamines Screen U Benzodiazepines Scrn Urine Cocaine Screen U Marijuana (THC) Screen C. difficile Tox B Gene COVID-19 (KRISTOPHER) COVID-19 Clin Com Blood Type Antibody Screen Crossmatch 07/18/21 07/18/21 07/18/21 08:24 11:11 14:01 WBC RBC Hgb Hct MCV MCH MCHC RDW Plt Count MPV Immature Gran % (Auto) Neut % (Auto) Lymph % (Auto) Caroline % (Auto) Eos % (Auto) Baso % (Auto) Lymph # (Auto) Caroline # (Auto) Eos # (Auto) Baso # (Auto) Abs Immat Gran (auto) Absolute Neuts (auto) Absolute Nucleated RBC Nucleated RBC % (auto) Neutrophils % (Manual) Band Neutrophils % Lymphocytes % (Manual) Monocytes % (Manual) Eosinophils % (Manual) Metamyelocytes % Myelocytes % Promyelocytes % Abs Neuts (Manual) Lymphocytes # (Manual) Monocytes # (Manual) Eosinophils # (Manual) Metamyelocytes # Myelocytes # Promyelocytes # Smudge Cells Toxic Vacuolation Platelet Estimate Large Platelets Plt Morphology Comment RBC Morphology Polychromasia Hypochromasia Basophilic Stippling Microcytosis Macrocytosis Target Cells Tear Drop Cells Ovalocytes Drake Cells Acanthocytes (Spur) Smear Tech's Comments Smear Path Review PT INR APTT D-Dimer High Sensitivty O2 Saturation ABG pH at Pt Temp ABG pCO2 at Pt Temp ABG pO2 at Pt Temp ABG HCO3 ABG Base Excess (Actual) VBG pH VBG pCO2 VBG pO2 VBG HCO3 VBG O2 Saturation VBG Base Excess Sodium Potassium Chloride Carbon Dioxide Anion Gap BUN Creatinine Estim Creat Clear Calc Estimated GFR POC Glucose 237 H 223 H Random Glucose Fasting Glucose Estimat Average Glucose 151 Hemoglobin A1c % 6.9 Lactic Acid Lactic Acid F/U @ 2Hr Lactic Acid F/U @ 4Hr Calcium Phosphorus Magnesium Ferritin Total Bilirubin Direct Bilirubin AST ALT Alkaline Phosphatase Lactate Dehydrogenase Total Creatine Kinase Troponin I High Sens C-Reactive Protein B-Natriuretic Peptide Total Protein Albumin Procalcitonin TSH Urine Color Urine Appearance Urine pH Ur Specific Riparius Urine Protein Urine Glucose (UA) Urine Ketones Urine Blood Urine Nitrite Ur Leukocyte Esterase Urine RBC Urine WBC Urine WBC Clumps Ur Squamous Epith Cells Ur Renal Epithelial Cell Uric Acid Crystals Amorphous Sediment Urine Bacteria Urine Mucus Stool Occult Blood Urine Opiates Screen Urine Fentanyl Screen Ur Barbiturates Screen Ur Phencyclidine Scrn Ur Amphetamines Screen U Benzodiazepines Scrn Urine Cocaine Screen U Marijuana (THC) Screen C. difficile Tox B Gene COVID-19 (KRISTOPHER) COVID-19 Clin Com Blood Type Antibody Screen Crossmatch 07/18/21 07/18/21 07/18/21 15:52 19:48 23:33 WBC RBC Hgb Hct MCV MCH MCHC RDW Plt Count MPV Immature Gran % (Auto) Neut % (Auto) Lymph % (Auto) Caroline % (Auto) Eos % (Auto) Baso % (Auto) Lymph # (Auto) Caroline # (Auto) Eos # (Auto) Baso # (Auto) Abs Immat Gran (auto) Absolute Neuts (auto) Absolute Nucleated RBC Nucleated RBC % (auto) Neutrophils % (Manual) Band Neutrophils % Lymphocytes % (Manual) Monocytes % (Manual) Eosinophils % (Manual) Metamyelocytes % Myelocytes % Promyelocytes % Abs Neuts (Manual) Lymphocytes # (Manual) Monocytes # (Manual) Eosinophils # (Manual) Metamyelocytes # Myelocytes # Promyelocytes # Smudge Cells Toxic Vacuolation Platelet Estimate Large Platelets Plt Morphology Comment RBC Morphology Polychromasia Hypochromasia Basophilic Stippling Microcytosis Macrocytosis Target Cells Tear Drop Cells Ovalocytes Drake Cells Acanthocytes (Spur) Smear Tech's Comments Smear Path Review PT INR APTT D-Dimer High Sensitivty O2 Saturation ABG pH at Pt Temp ABG pCO2 at Pt Temp ABG pO2 at Pt Temp ABG HCO3 ABG Base Excess (Actual) VBG pH VBG pCO2 VBG pO2 VBG HCO3 VBG O2 Saturation VBG Base Excess Sodium Potassium Chloride Carbon Dioxide Anion Gap BUN Creatinine Estim Creat Clear Calc Estimated GFR POC Glucose 200 H 264 H 177 H Random Glucose Fasting Glucose Estimat Average Glucose Hemoglobin A1c % Lactic Acid Lactic Acid F/U @ 2Hr Lactic Acid F/U @ 4Hr Calcium Phosphorus Magnesium Ferritin Total Bilirubin Direct Bilirubin AST ALT Alkaline Phosphatase Lactate Dehydrogenase Total Creatine Kinase Troponin I High Sens C-Reactive Protein B-Natriuretic Peptide Total Protein Albumin Procalcitonin TSH Urine Color Urine Appearance Urine pH Ur Specific Riparius Urine Protein Urine Glucose (UA) Urine Ketones Urine Blood Urine Nitrite Ur Leukocyte Esterase Urine RBC Urine WBC Urine WBC Clumps Ur Squamous Epith Cells Ur Renal Epithelial Cell Uric Acid Crystals Amorphous Sediment Urine Bacteria Urine Mucus Stool Occult Blood Urine Opiates Screen Urine Fentanyl Screen Ur Barbiturates Screen Ur Phencyclidine Scrn Ur Amphetamines Screen U Benzodiazepines Scrn Urine Cocaine Screen U Marijuana (THC) Screen C. difficile Tox B Gene COVID-19 (KRISTOPHER) COVID-19 Clin Com Blood Type Antibody Screen Crossmatch 07/19/21 07/19/21 07/19/21 05:30 07:51 12:07 WBC RBC Hgb Hct MCV MCH MCHC RDW Plt Count MPV Immature Gran % (Auto) Neut % (Auto) Lymph % (Auto) Caroline % (Auto) Eos % (Auto) Baso % (Auto) Lymph # (Auto) Caroline # (Auto) Eos # (Auto) Baso # (Auto) Abs Immat Gran (auto) Absolute Neuts (auto) Absolute Nucleated RBC Nucleated RBC % (auto) Neutrophils % (Manual) Band Neutrophils % Lymphocytes % (Manual) Monocytes % (Manual) Eosinophils % (Manual) Metamyelocytes % Myelocytes % Promyelocytes % Abs Neuts (Manual) Lymphocytes # (Manual) Monocytes # (Manual) Eosinophils # (Manual) Metamyelocytes # Myelocytes # Promyelocytes # Smudge Cells Toxic Vacuolation Platelet Estimate Large Platelets Plt Morphology Comment RBC Morphology Polychromasia Hypochromasia Basophilic Stippling Microcytosis Macrocytosis Target Cells Tear Drop Cells Ovalocytes Esthela Cells Acanthocytes (Spur) Smear Tech's Comments Smear Path Review PT INR APTT D-Dimer High Sensitivty O2 Saturation ABG pH at Pt Temp ABG pCO2 at Pt Temp ABG pO2 at Pt Temp ABG HCO3 ABG Base Excess (Actual) VBG pH VBG pCO2 VBG pO2 VBG HCO3 VBG O2 Saturation VBG Base Excess Sodium Potassium Chloride Carbon Dioxide Anion Gap BUN Creatinine Estim Creat Clear Calc Estimated GFR POC Glucose 109 126 H 255 H Random Glucose Fasting Glucose Estimat Average Glucose Hemoglobin A1c % Lactic Acid Lactic Acid F/U @ 2Hr Lactic Acid F/U @ 4Hr Calcium Phosphorus Magnesium Ferritin Total Bilirubin Direct Bilirubin AST ALT Alkaline Phosphatase Lactate Dehydrogenase Total Creatine Kinase Troponin I High Sens C-Reactive Protein B-Natriuretic Peptide Total Protein Albumin Procalcitonin TSH Urine Color Urine Appearance Urine pH Ur Specific Riparius Urine Protein Urine Glucose (UA) Urine Ketones Urine Blood Urine Nitrite Ur Leukocyte Esterase Urine RBC Urine WBC Urine WBC Clumps Ur Squamous Epith Cells Ur Renal Epithelial Cell Uric Acid Crystals Amorphous Sediment Urine Bacteria Urine Mucus Stool Occult Blood Urine Opiates Screen Urine Fentanyl Screen Ur Barbiturates Screen Ur Phencyclidine Scrn Ur Amphetamines Screen U Benzodiazepines Scrn Urine Cocaine Screen U Marijuana (THC) Screen C. difficile Tox B Gene COVID-19 (KRISTOPHER) COVID-19 Clin Com Blood Type Antibody Screen Crossmatch 07/19/21 07/19/21 07/20/21 16:15 19:38 00:14 WBC RBC Hgb Hct MCV MCH MCHC RDW Plt Count MPV Immature Gran % (Auto) Neut % (Auto) Lymph % (Auto) Caroline % (Auto) Eos % (Auto) Baso % (Auto) Lymph # (Auto) Caroline # (Auto) Eos # (Auto) Baso # (Auto) Abs Immat Gran (auto) Absolute Neuts (auto) Absolute Nucleated RBC Nucleated RBC % (auto) Neutrophils % (Manual) Band Neutrophils % Lymphocytes % (Manual) Monocytes % (Manual) Eosinophils % (Manual) Metamyelocytes % Myelocytes % Promyelocytes % Abs Neuts (Manual) Lymphocytes # (Manual) Monocytes # (Manual) Eosinophils # (Manual) Metamyelocytes # Myelocytes # Promyelocytes # Smudge Cells Toxic Vacuolation Platelet Estimate Large Platelets Plt Morphology Comment RBC Morphology Polychromasia Hypochromasia Basophilic Stippling Microcytosis Macrocytosis Target Cells Tear Drop Cells Ovalocytes Esthela Cells Acanthocytes (Spur) Smear Tech's Comments Smear Path Review PT INR APTT D-Dimer High Sensitivty O2 Saturation ABG pH at Pt Temp ABG pCO2 at Pt Temp ABG pO2 at Pt Temp ABG HCO3 ABG Base Excess (Actual) VBG pH VBG pCO2 VBG pO2 VBG HCO3 VBG O2 Saturation VBG Base Excess Sodium Potassium Chloride Carbon Dioxide Anion Gap BUN Creatinine Estim Creat Clear Calc Estimated GFR POC Glucose 172 H 185 H 124 H Random Glucose Fasting Glucose Estimat Average Glucose Hemoglobin A1c % Lactic Acid Lactic Acid F/U @ 2Hr Lactic Acid F/U @ 4Hr Calcium Phosphorus Magnesium Ferritin Total Bilirubin Direct Bilirubin AST ALT Alkaline Phosphatase Lactate Dehydrogenase Total Creatine Kinase Troponin I High Sens C-Reactive Protein B-Natriuretic Peptide Total Protein Albumin Procalcitonin TSH Urine Color Urine Appearance Urine pH Ur Specific Riparius Urine Protein Urine Glucose (UA) Urine Ketones Urine Blood Urine Nitrite Ur Leukocyte Esterase Urine RBC Urine WBC Urine WBC Clumps Ur Squamous Epith Cells Ur Renal Epithelial Cell Uric Acid Crystals Amorphous Sediment Urine Bacteria Urine Mucus Stool Occult Blood Urine Opiates Screen Urine Fentanyl Screen Ur Barbiturates Screen Ur Phencyclidine Scrn Ur Amphetamines Screen U Benzodiazepines Scrn Urine Cocaine Screen U Marijuana (THC) Screen C. difficile Tox B Gene COVID-19 (KRISTOPHER) COVID-19 Clin Com Blood Type Antibody Screen Crossmatch 07/20/21 07/20/21 07/20/21 05:49 07:21 10:50 WBC RBC Hgb Hct MCV MCH MCHC RDW Plt Count MPV Immature Gran % (Auto) Neut % (Auto) Lymph % (Auto) Caroline % (Auto) Eos % (Auto) Baso % (Auto) Lymph # (Auto) Caroline # (Auto) Eos # (Auto) Baso # (Auto) Abs Immat Gran (auto) Absolute Neuts (auto) Absolute Nucleated RBC Nucleated RBC % (auto) Neutrophils % (Manual) Band Neutrophils % Lymphocytes % (Manual) Monocytes % (Manual) Eosinophils % (Manual) Metamyelocytes % Myelocytes % Promyelocytes % Abs Neuts (Manual) Lymphocytes # (Manual) Monocytes # (Manual) Eosinophils # (Manual) Metamyelocytes # Myelocytes # Promyelocytes # Smudge Cells Toxic Vacuolation Platelet Estimate Large Platelets Plt Morphology Comment RBC Morphology Polychromasia Hypochromasia Basophilic Stippling Microcytosis Macrocytosis Target Cells Tear Drop Cells Ovalocytes Esthela Cells Acanthocytes (Spur) Smear Tech's Comments Smear Path Review PT INR APTT D-Dimer High Sensitivty O2 Saturation ABG pH at Pt Temp ABG pCO2 at Pt Temp ABG pO2 at Pt Temp ABG HCO3 ABG Base Excess (Actual) VBG pH VBG pCO2 VBG pO2 VBG HCO3 VBG O2 Saturation VBG Base Excess Sodium Potassium Chloride Carbon Dioxide Anion Gap BUN Creatinine Estim Creat Clear Calc Estimated GFR POC Glucose 142 H 171 H 241 H Random Glucose Fasting Glucose Estimat Average Glucose Hemoglobin A1c % Lactic Acid Lactic Acid F/U @ 2Hr Lactic Acid F/U @ 4Hr Calcium Phosphorus Magnesium Ferritin Total Bilirubin Direct Bilirubin AST ALT Alkaline Phosphatase Lactate Dehydrogenase Total Creatine Kinase Troponin I High Sens C-Reactive Protein B-Natriuretic Peptide Total Protein Albumin Procalcitonin TSH Urine Color Urine Appearance Urine pH Ur Specific Riparius Urine Protein Urine Glucose (UA) Urine Ketones Urine Blood Urine Nitrite Ur Leukocyte Esterase Urine RBC Urine WBC Urine WBC Clumps Ur Squamous Epith Cells Ur Renal Epithelial Cell Uric Acid Crystals Amorphous Sediment Urine Bacteria Urine Mucus Stool Occult Blood Urine Opiates Screen Urine Fentanyl Screen Ur Barbiturates Screen Ur Phencyclidine Scrn Ur Amphetamines Screen U Benzodiazepines Scrn Urine Cocaine Screen U Marijuana (THC) Screen C. difficile Tox B Gene COVID-19 (KRISTOPHER) COVID-19 Clin Com Blood Type Antibody Screen Crossmatch 07/20/21 07/20/21 07/21/21 18:34 20:26 07:23 WBC RBC Hgb Hct MCV MCH MCHC RDW Plt Count MPV Immature Gran % (Auto) Neut % (Auto) Lymph % (Auto) Caroline % (Auto) Eos % (Auto) Baso % (Auto) Lymph # (Auto) Caroline # (Auto) Eos # (Auto) Baso # (Auto) Abs Immat Gran (auto) Absolute Neuts (auto) Absolute Nucleated RBC Nucleated RBC % (auto) Neutrophils % (Manual) Band Neutrophils % Lymphocytes % (Manual) Monocytes % (Manual) Eosinophils % (Manual) Metamyelocytes % Myelocytes % Promyelocytes % Abs Neuts (Manual) Lymphocytes # (Manual) Monocytes # (Manual) Eosinophils # (Manual) Metamyelocytes # Myelocytes # Promyelocytes # Smudge Cells Toxic Vacuolation Platelet Estimate Large Platelets Plt Morphology Comment RBC Morphology Polychromasia Hypochromasia Basophilic Stippling Microcytosis Macrocytosis Target Cells Tear Drop Cells Ovalocytes Drake Cells Acanthocytes (Spur) Smear Tech's Comments Smear Path Review PT INR APTT D-Dimer High Sensitivty O2 Saturation ABG pH at Pt Temp ABG pCO2 at Pt Temp ABG pO2 at Pt Temp ABG HCO3 ABG Base Excess (Actual) VBG pH VBG pCO2 VBG pO2 VBG HCO3 VBG O2 Saturation VBG Base Excess Sodium Potassium Chloride Carbon Dioxide Anion Gap BUN Creatinine Estim Creat Clear Calc Estimated GFR POC Glucose 226 H 192 H 94 Random Glucose Fasting Glucose Estimat Average Glucose Hemoglobin A1c % Lactic Acid Lactic Acid F/U @ 2Hr Lactic Acid F/U @ 4Hr Calcium Phosphorus Magnesium Ferritin Total Bilirubin Direct Bilirubin AST ALT Alkaline Phosphatase Lactate Dehydrogenase Total Creatine Kinase Troponin I High Sens C-Reactive Protein B-Natriuretic Peptide Total Protein Albumin Procalcitonin TSH Urine Color Urine Appearance Urine pH Ur Specific Riparius Urine Protein Urine Glucose (UA) Urine Ketones Urine Blood Urine Nitrite Ur Leukocyte Esterase Urine RBC Urine WBC Urine WBC Clumps Ur Squamous Epith Cells Ur Renal Epithelial Cell Uric Acid Crystals Amorphous Sediment Urine Bacteria Urine Mucus Stool Occult Blood Urine Opiates Screen Urine Fentanyl Screen Ur Barbiturates Screen Ur Phencyclidine Scrn Ur Amphetamines Screen U Benzodiazepines Scrn Urine Cocaine Screen U Marijuana (THC) Screen C. difficile Tox B Gene COVID-19 (KRISTOPHER) COVID-19 Clin Com Blood Type Antibody Screen Crossmatch 07/21/21 07/21/21 07/21/21 11:28 16:07 20:04 WBC RBC Hgb Hct MCV MCH MCHC RDW Plt Count MPV Immature Gran % (Auto) Neut % (Auto) Lymph % (Auto) Caroline % (Auto) Eos % (Auto) Baso % (Auto) Lymph # (Auto) Caroline # (Auto) Eos # (Auto) Baso # (Auto) Abs Immat Gran (auto) Absolute Neuts (auto) Absolute Nucleated RBC Nucleated RBC % (auto) Neutrophils % (Manual) Band Neutrophils % Lymphocytes % (Manual) Monocytes % (Manual) Eosinophils % (Manual) Metamyelocytes % Myelocytes % Promyelocytes % Abs Neuts (Manual) Lymphocytes # (Manual) Monocytes # (Manual) Eosinophils # (Manual) Metamyelocytes # Myelocytes # Promyelocytes # Smudge Cells Toxic Vacuolation Platelet Estimate Large Platelets Plt Morphology Comment RBC Morphology Polychromasia Hypochromasia Basophilic Stippling Microcytosis Macrocytosis Target Cells Tear Drop Cells Ovalocytes Drake Cells Acanthocytes (Spur) Smear Tech's Comments Smear Path Review PT INR APTT D-Dimer High Sensitivty O2 Saturation ABG pH at Pt Temp ABG pCO2 at Pt Temp ABG pO2 at Pt Temp ABG HCO3 ABG Base Excess (Actual) VBG pH VBG pCO2 VBG pO2 VBG HCO3 VBG O2 Saturation VBG Base Excess Sodium Potassium Chloride Carbon Dioxide Anion Gap BUN Creatinine Estim Creat Clear Calc Estimated GFR POC Glucose 191 H 241 H 197 H Random Glucose Fasting Glucose Estimat Average Glucose Hemoglobin A1c % Lactic Acid Lactic Acid F/U @ 2Hr Lactic Acid F/U @ 4Hr Calcium Phosphorus Magnesium Ferritin Total Bilirubin Direct Bilirubin AST ALT Alkaline Phosphatase Lactate Dehydrogenase Total Creatine Kinase Troponin I High Sens C-Reactive Protein B-Natriuretic Peptide Total Protein Albumin Procalcitonin TSH Urine Color Urine Appearance Urine pH Ur Specific Riparius Urine Protein Urine Glucose (UA) Urine Ketones Urine Blood Urine Nitrite Ur Leukocyte Esterase Urine RBC Urine WBC Urine WBC Clumps Ur Squamous Epith Cells Ur Renal Epithelial Cell Uric Acid Crystals Amorphous Sediment Urine Bacteria Urine Mucus Stool Occult Blood Urine Opiates Screen Urine Fentanyl Screen Ur Barbiturates Screen Ur Phencyclidine Scrn Ur Amphetamines Screen U Benzodiazepines Scrn Urine Cocaine Screen U Marijuana (THC) Screen C. difficile Tox B Gene COVID-19 (KRISTOPHER) COVID-19 Clin Com Blood Type Antibody Screen Crossmatch 07/22/21 07/22/21 07/22/21 07:24 11:26 15:21 WBC RBC Hgb Hct MCV MCH MCHC RDW Plt Count MPV Immature Gran % (Auto) Neut % (Auto) Lymph % (Auto) Caroline % (Auto) Eos % (Auto) Baso % (Auto) Lymph # (Auto) Caroline # (Auto) Eos # (Auto) Baso # (Auto) Abs Immat Gran (auto) Absolute Neuts (auto) Absolute Nucleated RBC Nucleated RBC % (auto) Neutrophils % (Manual) Band Neutrophils % Lymphocytes % (Manual) Monocytes % (Manual) Eosinophils % (Manual) Metamyelocytes % Myelocytes % Promyelocytes % Abs Neuts (Manual) Lymphocytes # (Manual) Monocytes # (Manual) Eosinophils # (Manual) Metamyelocytes # Myelocytes # Promyelocytes # Smudge Cells Toxic Vacuolation Platelet Estimate Large Platelets Plt Morphology Comment RBC Morphology Polychromasia Hypochromasia Basophilic Stippling Microcytosis Macrocytosis Target Cells Tear Drop Cells Ovalocytes Drake Cells Acanthocytes (Spur) Smear Tech's Comments Smear Path Review PT INR APTT D-Dimer High Sensitivty O2 Saturation ABG pH at Pt Temp ABG pCO2 at Pt Temp ABG pO2 at Pt Temp ABG HCO3 ABG Base Excess (Actual) VBG pH VBG pCO2 VBG pO2 VBG HCO3 VBG O2 Saturation VBG Base Excess Sodium Potassium Chloride Carbon Dioxide Anion Gap BUN Creatinine Estim Creat Clear Calc Estimated GFR POC Glucose 120 H 234 H 215 H Random Glucose Fasting Glucose Estimat Average Glucose Hemoglobin A1c % Lactic Acid Lactic Acid F/U @ 2Hr Lactic Acid F/U @ 4Hr Calcium Phosphorus Magnesium Ferritin Total Bilirubin Direct Bilirubin AST ALT Alkaline Phosphatase Lactate Dehydrogenase Total Creatine Kinase Troponin I High Sens C-Reactive Protein B-Natriuretic Peptide Total Protein Albumin Procalcitonin TSH Urine Color Urine Appearance Urine pH Ur Specific Riparius Urine Protein Urine Glucose (UA) Urine Ketones Urine Blood Urine Nitrite Ur Leukocyte Esterase Urine RBC Urine WBC Urine WBC Clumps Ur Squamous Epith Cells Ur Renal Epithelial Cell Uric Acid Crystals Amorphous Sediment Urine Bacteria Urine Mucus Stool Occult Blood Urine Opiates Screen Urine Fentanyl Screen Ur Barbiturates Screen Ur Phencyclidine Scrn Ur Amphetamines Screen U Benzodiazepines Scrn Urine Cocaine Screen U Marijuana (THC) Screen C. difficile Tox B Gene COVID-19 (KRISTOPHER) COVID-19 Clin Com Blood Type Antibody Screen Crossmatch 07/22/21 07/22/21 07/23/21 19:09 23:57 06:22 WBC RBC Hgb Hct MCV MCH MCHC RDW Plt Count MPV Immature Gran % (Auto) Neut % (Auto) Lymph % (Auto) Caroline % (Auto) Eos % (Auto) Baso % (Auto) Lymph # (Auto) Caroline # (Auto) Eos # (Auto) Baso # (Auto) Abs Immat Gran (auto) Absolute Neuts (auto) Absolute Nucleated RBC Nucleated RBC % (auto) Neutrophils % (Manual) Band Neutrophils % Lymphocytes % (Manual) Monocytes % (Manual) Eosinophils % (Manual) Metamyelocytes % Myelocytes % Promyelocytes % Abs Neuts (Manual) Lymphocytes # (Manual) Monocytes # (Manual) Eosinophils # (Manual) Metamyelocytes # Myelocytes # Promyelocytes # Smudge Cells Toxic Vacuolation Platelet Estimate Large Platelets Plt Morphology Comment RBC Morphology Polychromasia Hypochromasia Basophilic Stippling Microcytosis Macrocytosis Target Cells Tear Drop Cells Ovalocytes Drake Cells Acanthocytes (Spur) Smear Tech's Comments Smear Path Review PT INR APTT D-Dimer High Sensitivty O2 Saturation ABG pH at Pt Temp ABG pCO2 at Pt Temp ABG pO2 at Pt Temp ABG HCO3 ABG Base Excess (Actual) VBG pH VBG pCO2 VBG pO2 VBG HCO3 VBG O2 Saturation VBG Base Excess Sodium Potassium Chloride Carbon Dioxide Anion Gap BUN Creatinine Estim Creat Clear Calc Estimated GFR POC Glucose 213 H 137 H 92 Random Glucose Fasting Glucose Estimat Average Glucose Hemoglobin A1c % Lactic Acid Lactic Acid F/U @ 2Hr Lactic Acid F/U @ 4Hr Calcium Phosphorus Magnesium Ferritin Total Bilirubin Direct Bilirubin AST ALT Alkaline Phosphatase Lactate Dehydrogenase Total Creatine Kinase Troponin I High Sens C-Reactive Protein B-Natriuretic Peptide Total Protein Albumin Procalcitonin TSH Urine Color Urine Appearance Urine pH Ur Specific Riparius Urine Protein Urine Glucose (UA) Urine Ketones Urine Blood Urine Nitrite Ur Leukocyte Esterase Urine RBC Urine WBC Urine WBC Clumps Ur Squamous Epith Cells Ur Renal Epithelial Cell Uric Acid Crystals Amorphous Sediment Urine Bacteria Urine Mucus Stool Occult Blood Urine Opiates Screen Urine Fentanyl Screen Ur Barbiturates Screen Ur Phencyclidine Scrn Ur Amphetamines Screen U Benzodiazepines Scrn Urine Cocaine Screen U Marijuana (THC) Screen C. difficile Tox B Gene COVID-19 (KRISTOPHER) COVID-19 Clin Com Blood Type Antibody Screen Crossmatch 07/23/21 07/23/21 07/23/21 07:34 11:31 16:11 WBC RBC Hgb Hct MCV MCH MCHC RDW Plt Count MPV Immature Gran % (Auto) Neut % (Auto) Lymph % (Auto) Caroline % (Auto) Eos % (Auto) Baso % (Auto) Lymph # (Auto) Caroline # (Auto) Eos # (Auto) Baso # (Auto) Abs Immat Gran (auto) Absolute Neuts (auto) Absolute Nucleated RBC Nucleated RBC % (auto) Neutrophils % (Manual) Band Neutrophils % Lymphocytes % (Manual) Monocytes % (Manual) Eosinophils % (Manual) Metamyelocytes % Myelocytes % Promyelocytes % Abs Neuts (Manual) Lymphocytes # (Manual) Monocytes # (Manual) Eosinophils # (Manual) Metamyelocytes # Myelocytes # Promyelocytes # Smudge Cells Toxic Vacuolation Platelet Estimate Large Platelets Plt Morphology Comment RBC Morphology Polychromasia Hypochromasia Basophilic Stippling Microcytosis Macrocytosis Target Cells Tear Drop Cells Ovalocytes Esthela Cells Acanthocytes (Spur) Smear Tech's Comments Smear Path Review PT INR APTT D-Dimer High Sensitivty O2 Saturation ABG pH at Pt Temp ABG pCO2 at Pt Temp ABG pO2 at Pt Temp ABG HCO3 ABG Base Excess (Actual) VBG pH VBG pCO2 VBG pO2 VBG HCO3 VBG O2 Saturation VBG Base Excess Sodium Potassium Chloride Carbon Dioxide Anion Gap BUN Creatinine Estim Creat Clear Calc Estimated GFR POC Glucose 101 160 H 175 H Random Glucose Fasting Glucose Estimat Average Glucose Hemoglobin A1c % Lactic Acid Lactic Acid F/U @ 2Hr Lactic Acid F/U @ 4Hr Calcium Phosphorus Magnesium Ferritin Total Bilirubin Direct Bilirubin AST ALT Alkaline Phosphatase Lactate Dehydrogenase Total Creatine Kinase Troponin I High Sens C-Reactive Protein B-Natriuretic Peptide Total Protein Albumin Procalcitonin TSH Urine Color Urine Appearance Urine pH Ur Specific Riparius Urine Protein Urine Glucose (UA) Urine Ketones Urine Blood Urine Nitrite Ur Leukocyte Esterase Urine RBC Urine WBC Urine WBC Clumps Ur Squamous Epith Cells Ur Renal Epithelial Cell Uric Acid Crystals Amorphous Sediment Urine Bacteria Urine Mucus Stool Occult Blood Urine Opiates Screen Urine Fentanyl Screen Ur Barbiturates Screen Ur Phencyclidine Scrn Ur Amphetamines Screen U Benzodiazepines Scrn Urine Cocaine Screen U Marijuana (THC) Screen C. difficile Tox B Gene COVID-19 (KRISTOPHER) COVID-19 Clin Com Blood Type Antibody Screen Crossmatch 07/23/21 07/24/21 07/24/21 18:00 00:48 05:39 WBC RBC Hgb Hct MCV MCH MCHC RDW Plt Count MPV Immature Gran % (Auto) Neut % (Auto) Lymph % (Auto) Caroline % (Auto) Eos % (Auto) Baso % (Auto) Lymph # (Auto) Caroline # (Auto) Eos # (Auto) Baso # (Auto) Abs Immat Gran (auto) Absolute Neuts (auto) Absolute Nucleated RBC Nucleated RBC % (auto) Neutrophils % (Manual) Band Neutrophils % Lymphocytes % (Manual) Monocytes % (Manual) Eosinophils % (Manual) Metamyelocytes % Myelocytes % Promyelocytes % Abs Neuts (Manual) Lymphocytes # (Manual) Monocytes # (Manual) Eosinophils # (Manual) Metamyelocytes # Myelocytes # Promyelocytes # Smudge Cells Toxic Vacuolation Platelet Estimate Large Platelets Plt Morphology Comment RBC Morphology Polychromasia Hypochromasia Basophilic Stippling Microcytosis Macrocytosis Target Cells Tear Drop Cells Ovalocytes Esthela Cells Acanthocytes (Spur) Smear Tech's Comments Smear Path Review PT INR APTT D-Dimer High Sensitivty O2 Saturation ABG pH at Pt Temp ABG pCO2 at Pt Temp ABG pO2 at Pt Temp ABG HCO3 ABG Base Excess (Actual) VBG pH VBG pCO2 VBG pO2 VBG HCO3 VBG O2 Saturation VBG Base Excess Sodium Potassium Chloride Carbon Dioxide Anion Gap BUN Creatinine Estim Creat Clear Calc Estimated GFR POC Glucose 161 H 125 H 94 Random Glucose Fasting Glucose Estimat Average Glucose Hemoglobin A1c % Lactic Acid Lactic Acid F/U @ 2Hr Lactic Acid F/U @ 4Hr Calcium Phosphorus Magnesium Ferritin Total Bilirubin Direct Bilirubin AST ALT Alkaline Phosphatase Lactate Dehydrogenase Total Creatine Kinase Troponin I High Sens C-Reactive Protein B-Natriuretic Peptide Total Protein Albumin Procalcitonin TSH Urine Color Urine Appearance Urine pH Ur Specific Riparius Urine Protein Urine Glucose (UA) Urine Ketones Urine Blood Urine Nitrite Ur Leukocyte Esterase Urine RBC Urine WBC Urine WBC Clumps Ur Squamous Epith Cells Ur Renal Epithelial Cell Uric Acid Crystals Amorphous Sediment Urine Bacteria Urine Mucus Stool Occult Blood Urine Opiates Screen Urine Fentanyl Screen Ur Barbiturates Screen Ur Phencyclidine Scrn Ur Amphetamines Screen U Benzodiazepines Scrn Urine Cocaine Screen U Marijuana (THC) Screen C. difficile Tox B Gene COVID-19 (KRISTOPHER) COVID-19 Clin Com Blood Type Antibody Screen Crossmatch 07/24/21 07/24/21 07/24/21 06:46 07:45 11:17 WBC RBC Hgb Hct MCV MCH MCHC RDW Plt Count MPV Immature Gran % (Auto) Neut % (Auto) Lymph % (Auto) Caroline % (Auto) Eos % (Auto) Baso % (Auto) Lymph # (Auto) Caroline # (Auto) Eos # (Auto) Baso # (Auto) Abs Immat Gran (auto) Absolute Neuts (auto) Absolute Nucleated RBC Nucleated RBC % (auto) Neutrophils % (Manual) Band Neutrophils % Lymphocytes % (Manual) Monocytes % (Manual) Eosinophils % (Manual) Metamyelocytes % Myelocytes % Promyelocytes % Abs Neuts (Manual) Lymphocytes # (Manual) Monocytes # (Manual) Eosinophils # (Manual) Metamyelocytes # Myelocytes # Promyelocytes # Smudge Cells Toxic Vacuolation Platelet Estimate Large Platelets Plt Morphology Comment RBC Morphology Polychromasia Hypochromasia Basophilic Stippling Microcytosis Macrocytosis Target Cells Tear Drop Cells Ovalocytes Esthela Cells Acanthocytes (Spur) Smear Tech's Comments Smear Path Review PT INR APTT D-Dimer High Sensitivty O2 Saturation ABG pH at Pt Temp ABG pCO2 at Pt Temp ABG pO2 at Pt Temp ABG HCO3 ABG Base Excess (Actual) VBG pH VBG pCO2 VBG pO2 VBG HCO3 VBG O2 Saturation VBG Base Excess Sodium 141 Potassium 4.1 D Chloride 101 Carbon Dioxide 29 Anion Gap 15 BUN 10 Creatinine 0.52 Estim Creat Clear Calc 176.0 Estimated GFR > 60 POC Glucose 86 179 H Random Glucose 103 Fasting Glucose Estimat Average Glucose Hemoglobin A1c % Lactic Acid Lactic Acid F/U @ 2Hr Lactic Acid F/U @ 4Hr Calcium 8.9 D Phosphorus Magnesium Ferritin Total Bilirubin Direct Bilirubin AST ALT Alkaline Phosphatase Lactate Dehydrogenase Total Creatine Kinase Troponin I High Sens C-Reactive Protein B-Natriuretic Peptide Total Protein Albumin Procalcitonin TSH Urine Color Urine Appearance Urine pH Ur Specific Riparius Urine Protein Urine Glucose (UA) Urine Ketones Urine Blood Urine Nitrite Ur Leukocyte Esterase Urine RBC Urine WBC Urine WBC Clumps Ur Squamous Epith Cells Ur Renal Epithelial Cell Uric Acid Crystals Amorphous Sediment Urine Bacteria Urine Mucus Stool Occult Blood Urine Opiates Screen Urine Fentanyl Screen Ur Barbiturates Screen Ur Phencyclidine Scrn Ur Amphetamines Screen U Benzodiazepines Scrn Urine Cocaine Screen U Marijuana (THC) Screen C. difficile Tox B Gene COVID-19 (KRISTOPHER) COVID-19 Clin Com Blood Type Antibody Screen Crossmatch 07/24/21 07/24/21 07/25/21 18:18 23:42 05:53 WBC RBC Hgb Hct MCV MCH MCHC RDW Plt Count MPV Immature Gran % (Auto) Neut % (Auto) Lymph % (Auto) Caroline % (Auto) Eos % (Auto) Baso % (Auto) Lymph # (Auto) Caroline # (Auto) Eos # (Auto) Baso # (Auto) Abs Immat Gran (auto) Absolute Neuts (auto) Absolute Nucleated RBC Nucleated RBC % (auto) Neutrophils % (Manual) Band Neutrophils % Lymphocytes % (Manual) Monocytes % (Manual) Eosinophils % (Manual) Metamyelocytes % Myelocytes % Promyelocytes % Abs Neuts (Manual) Lymphocytes # (Manual) Monocytes # (Manual) Eosinophils # (Manual) Metamyelocytes # Myelocytes # Promyelocytes # Smudge Cells Toxic Vacuolation Platelet Estimate Large Platelets Plt Morphology Comment RBC Morphology Polychromasia Hypochromasia Basophilic Stippling Microcytosis Macrocytosis Target Cells Tear Drop Cells Ovalocytes Drake Cells Acanthocytes (Spur) Smear Tech's Comments Smear Path Review PT INR APTT D-Dimer High Sensitivty O2 Saturation ABG pH at Pt Temp ABG pCO2 at Pt Temp ABG pO2 at Pt Temp ABG HCO3 ABG Base Excess (Actual) VBG pH VBG pCO2 VBG pO2 VBG HCO3 VBG O2 Saturation VBG Base Excess Sodium Potassium Chloride Carbon Dioxide Anion Gap BUN Creatinine Estim Creat Clear Calc Estimated GFR POC Glucose 224 H 102 90 Random Glucose Fasting Glucose Estimat Average Glucose Hemoglobin A1c % Lactic Acid Lactic Acid F/U @ 2Hr Lactic Acid F/U @ 4Hr Calcium Phosphorus Magnesium Ferritin Total Bilirubin Direct Bilirubin AST ALT Alkaline Phosphatase Lactate Dehydrogenase Total Creatine Kinase Troponin I High Sens C-Reactive Protein B-Natriuretic Peptide Total Protein Albumin Procalcitonin TSH Urine Color Urine Appearance Urine pH Ur Specific Riparius Urine Protein Urine Glucose (UA) Urine Ketones Urine Blood Urine Nitrite Ur Leukocyte Esterase Urine RBC Urine WBC Urine WBC Clumps Ur Squamous Epith Cells Ur Renal Epithelial Cell Uric Acid Crystals Amorphous Sediment Urine Bacteria Urine Mucus Stool Occult Blood Urine Opiates Screen Urine Fentanyl Screen Ur Barbiturates Screen Ur Phencyclidine Scrn Ur Amphetamines Screen U Benzodiazepines Scrn Urine Cocaine Screen U Marijuana (THC) Screen C. difficile Tox B Gene COVID-19 (KRISTOPHER) COVID-19 Clin Com Blood Type Antibody Screen Crossmatch 07/25/21 07/25/21 07/25/21 07:29 11:24 16:17 WBC RBC Hgb Hct MCV MCH MCHC RDW Plt Count MPV Immature Gran % (Auto) Neut % (Auto) Lymph % (Auto) Caroline % (Auto) Eos % (Auto) Baso % (Auto) Lymph # (Auto) Caroline # (Auto) Eos # (Auto) Baso # (Auto) Abs Immat Gran (auto) Absolute Neuts (auto) Absolute Nucleated RBC Nucleated RBC % (auto) Neutrophils % (Manual) Band Neutrophils % Lymphocytes % (Manual) Monocytes % (Manual) Eosinophils % (Manual) Metamyelocytes % Myelocytes % Promyelocytes % Abs Neuts (Manual) Lymphocytes # (Manual) Monocytes # (Manual) Eosinophils # (Manual) Metamyelocytes # Myelocytes # Promyelocytes # Smudge Cells Toxic Vacuolation Platelet Estimate Large Platelets Plt Morphology Comment RBC Morphology Polychromasia Hypochromasia Basophilic Stippling Microcytosis Macrocytosis Target Cells Tear Drop Cells Ovalocytes Esthela Cells Acanthocytes (Spur) Smear Tech's Comments Smear Path Review PT INR APTT D-Dimer High Sensitivty O2 Saturation ABG pH at Pt Temp ABG pCO2 at Pt Temp ABG pO2 at Pt Temp ABG HCO3 ABG Base Excess (Actual) VBG pH VBG pCO2 VBG pO2 VBG HCO3 VBG O2 Saturation VBG Base Excess Sodium Potassium Chloride Carbon Dioxide Anion Gap BUN Creatinine Estim Creat Clear Calc Estimated GFR POC Glucose 85 154 H 278 H Random Glucose Fasting Glucose Estimat Average Glucose Hemoglobin A1c % Lactic Acid Lactic Acid F/U @ 2Hr Lactic Acid F/U @ 4Hr Calcium Phosphorus Magnesium Ferritin Total Bilirubin Direct Bilirubin AST ALT Alkaline Phosphatase Lactate Dehydrogenase Total Creatine Kinase Troponin I High Sens C-Reactive Protein B-Natriuretic Peptide Total Protein Albumin Procalcitonin TSH Urine Color Urine Appearance Urine pH Ur Specific Riparius Urine Protein Urine Glucose (UA) Urine Ketones Urine Blood Urine Nitrite Ur Leukocyte Esterase Urine RBC Urine WBC Urine WBC Clumps Ur Squamous Epith Cells Ur Renal Epithelial Cell Uric Acid Crystals Amorphous Sediment Urine Bacteria Urine Mucus Stool Occult Blood Urine Opiates Screen Urine Fentanyl Screen Ur Barbiturates Screen Ur Phencyclidine Scrn Ur Amphetamines Screen U Benzodiazepines Scrn Urine Cocaine Screen U Marijuana (THC) Screen C. difficile Tox B Gene COVID-19 (KRISTOPHER) COVID-19 Clin Com Blood Type Antibody Screen Crossmatch 07/25/21 07/26/21 07/26/21 20:43 07:15 10:56 WBC RBC Hgb Hct MCV MCH MCHC RDW Plt Count MPV Immature Gran % (Auto) Neut % (Auto) Lymph % (Auto) Caroline % (Auto) Eos % (Auto) Baso % (Auto) Lymph # (Auto) Caroline # (Auto) Eos # (Auto) Baso # (Auto) Abs Immat Gran (auto) Absolute Neuts (auto) Absolute Nucleated RBC Nucleated RBC % (auto) Neutrophils % (Manual) Band Neutrophils % Lymphocytes % (Manual) Monocytes % (Manual) Eosinophils % (Manual) Metamyelocytes % Myelocytes % Promyelocytes % Abs Neuts (Manual) Lymphocytes # (Manual) Monocytes # (Manual) Eosinophils # (Manual) Metamyelocytes # Myelocytes # Promyelocytes # Smudge Cells Toxic Vacuolation Platelet Estimate Large Platelets Plt Morphology Comment RBC Morphology Polychromasia Hypochromasia Basophilic Stippling Microcytosis Macrocytosis Target Cells Tear Drop Cells Ovalocytes Esthela Cells Acanthocytes (Spur) Smear Tech's Comments Smear Path Review PT INR APTT D-Dimer High Sensitivty O2 Saturation ABG pH at Pt Temp ABG pCO2 at Pt Temp ABG pO2 at Pt Temp ABG HCO3 ABG Base Excess (Actual) VBG pH VBG pCO2 VBG pO2 VBG HCO3 VBG O2 Saturation VBG Base Excess Sodium Potassium Chloride Carbon Dioxide Anion Gap BUN Creatinine Estim Creat Clear Calc Estimated GFR POC Glucose 215 H 102 252 H Random Glucose Fasting Glucose Estimat Average Glucose Hemoglobin A1c % Lactic Acid Lactic Acid F/U @ 2Hr Lactic Acid F/U @ 4Hr Calcium Phosphorus Magnesium Ferritin Total Bilirubin Direct Bilirubin AST ALT Alkaline Phosphatase Lactate Dehydrogenase Total Creatine Kinase Troponin I High Sens C-Reactive Protein B-Natriuretic Peptide Total Protein Albumin Procalcitonin TSH Urine Color Urine Appearance Urine pH Ur Specific Riparius Urine Protein Urine Glucose (UA) Urine Ketones Urine Blood Urine Nitrite Ur Leukocyte Esterase Urine RBC Urine WBC Urine WBC Clumps Ur Squamous Epith Cells Ur Renal Epithelial Cell Uric Acid Crystals Amorphous Sediment Urine Bacteria Urine Mucus Stool Occult Blood Urine Opiates Screen Urine Fentanyl Screen Ur Barbiturates Screen Ur Phencyclidine Scrn Ur Amphetamines Screen U Benzodiazepines Scrn Urine Cocaine Screen U Marijuana (THC) Screen C. difficile Tox B Gene COVID-19 (KRISTOPHER) COVID-19 Clin Com Blood Type Antibody Screen Crossmatch 07/26/21 07/26/21 07/27/21 17:09 20:29 07:36 WBC RBC Hgb Hct MCV MCH MCHC RDW Plt Count MPV Immature Gran % (Auto) Neut % (Auto) Lymph % (Auto) Caroline % (Auto) Eos % (Auto) Baso % (Auto) Lymph # (Auto) Caroline # (Auto) Eos # (Auto) Baso # (Auto) Abs Immat Gran (auto) Absolute Neuts (auto) Absolute Nucleated RBC Nucleated RBC % (auto) Neutrophils % (Manual) Band Neutrophils % Lymphocytes % (Manual) Monocytes % (Manual) Eosinophils % (Manual) Metamyelocytes % Myelocytes % Promyelocytes % Abs Neuts (Manual) Lymphocytes # (Manual) Monocytes # (Manual) Eosinophils # (Manual) Metamyelocytes # Myelocytes # Promyelocytes # Smudge Cells Toxic Vacuolation Platelet Estimate Large Platelets Plt Morphology Comment RBC Morphology Polychromasia Hypochromasia Basophilic Stippling Microcytosis Macrocytosis Target Cells Tear Drop Cells Ovalocytes Drake Cells Acanthocytes (Spur) Smear Tech's Comments Smear Path Review PT INR APTT D-Dimer High Sensitivty O2 Saturation ABG pH at Pt Temp ABG pCO2 at Pt Temp ABG pO2 at Pt Temp ABG HCO3 ABG Base Excess (Actual) VBG pH VBG pCO2 VBG pO2 VBG HCO3 VBG O2 Saturation VBG Base Excess Sodium Potassium Chloride Carbon Dioxide Anion Gap BUN Creatinine Estim Creat Clear Calc Estimated GFR POC Glucose 150 H 174 H 116 H Random Glucose Fasting Glucose Estimat Average Glucose Hemoglobin A1c % Lactic Acid Lactic Acid F/U @ 2Hr Lactic Acid F/U @ 4Hr Calcium Phosphorus Magnesium Ferritin Total Bilirubin Direct Bilirubin AST ALT Alkaline Phosphatase Lactate Dehydrogenase Total Creatine Kinase Troponin I High Sens C-Reactive Protein B-Natriuretic Peptide Total Protein Albumin Procalcitonin TSH Urine Color Urine Appearance Urine pH Ur Specific Riparius Urine Protein Urine Glucose (UA) Urine Ketones Urine Blood Urine Nitrite Ur Leukocyte Esterase Urine RBC Urine WBC Urine WBC Clumps Ur Squamous Epith Cells Ur Renal Epithelial Cell Uric Acid Crystals Amorphous Sediment Urine Bacteria Urine Mucus Stool Occult Blood Urine Opiates Screen Urine Fentanyl Screen Ur Barbiturates Screen Ur Phencyclidine Scrn Ur Amphetamines Screen U Benzodiazepines Scrn Urine Cocaine Screen U Marijuana (THC) Screen C. difficile Tox B Gene COVID-19 (KRISTOPHER) COVID-19 Clin Com Blood Type Antibody Screen Crossmatch 07/27/21 07/27/21 07/27/21 11:01 15:16 20:04 WBC RBC Hgb Hct MCV MCH MCHC RDW Plt Count MPV Immature Gran % (Auto) Neut % (Auto) Lymph % (Auto) Caroline % (Auto) Eos % (Auto) Baso % (Auto) Lymph # (Auto) Caroline # (Auto) Eos # (Auto) Baso # (Auto) Abs Immat Gran (auto) Absolute Neuts (auto) Absolute Nucleated RBC Nucleated RBC % (auto) Neutrophils % (Manual) Band Neutrophils % Lymphocytes % (Manual) Monocytes % (Manual) Eosinophils % (Manual) Metamyelocytes % Myelocytes % Promyelocytes % Abs Neuts (Manual) Lymphocytes # (Manual) Monocytes # (Manual) Eosinophils # (Manual) Metamyelocytes # Myelocytes # Promyelocytes # Smudge Cells Toxic Vacuolation Platelet Estimate Large Platelets Plt Morphology Comment RBC Morphology Polychromasia Hypochromasia Basophilic Stippling Microcytosis Macrocytosis Target Cells Tear Drop Cells Ovalocytes Esthela Cells Acanthocytes (Spur) Smear Tech's Comments Smear Path Review PT INR APTT D-Dimer High Sensitivty O2 Saturation ABG pH at Pt Temp ABG pCO2 at Pt Temp ABG pO2 at Pt Temp ABG HCO3 ABG Base Excess (Actual) VBG pH VBG pCO2 VBG pO2 VBG HCO3 VBG O2 Saturation VBG Base Excess Sodium Potassium Chloride Carbon Dioxide Anion Gap BUN Creatinine Estim Creat Clear Calc Estimated GFR POC Glucose 256 H 177 H 194 H Random Glucose Fasting Glucose Estimat Average Glucose Hemoglobin A1c % Lactic Acid Lactic Acid F/U @ 2Hr Lactic Acid F/U @ 4Hr Calcium Phosphorus Magnesium Ferritin Total Bilirubin Direct Bilirubin AST ALT Alkaline Phosphatase Lactate Dehydrogenase Total Creatine Kinase Troponin I High Sens C-Reactive Protein B-Natriuretic Peptide Total Protein Albumin Procalcitonin TSH Urine Color Urine Appearance Urine pH Ur Specific Riparius Urine Protein Urine Glucose (UA) Urine Ketones Urine Blood Urine Nitrite Ur Leukocyte Esterase Urine RBC Urine WBC Urine WBC Clumps Ur Squamous Epith Cells Ur Renal Epithelial Cell Uric Acid Crystals Amorphous Sediment Urine Bacteria Urine Mucus Stool Occult Blood Urine Opiates Screen Urine Fentanyl Screen Ur Barbiturates Screen Ur Phencyclidine Scrn Ur Amphetamines Screen U Benzodiazepines Scrn Urine Cocaine Screen U Marijuana (THC) Screen C. difficile Tox B Gene COVID-19 (KRISTOPHER) COVID-19 Clin Com Blood Type Antibody Screen Crossmatch 07/28/21 07/28/21 07/28/21 07:08 11:48 17:12 WBC RBC Hgb Hct MCV MCH MCHC RDW Plt Count MPV Immature Gran % (Auto) Neut % (Auto) Lymph % (Auto) Caroline % (Auto) Eos % (Auto) Baso % (Auto) Lymph # (Auto) Caroline # (Auto) Eos # (Auto) Baso # (Auto) Abs Immat Gran (auto) Absolute Neuts (auto) Absolute Nucleated RBC Nucleated RBC % (auto) Neutrophils % (Manual) Band Neutrophils % Lymphocytes % (Manual) Monocytes % (Manual) Eosinophils % (Manual) Metamyelocytes % Myelocytes % Promyelocytes % Abs Neuts (Manual) Lymphocytes # (Manual) Monocytes # (Manual) Eosinophils # (Manual) Metamyelocytes # Myelocytes # Promyelocytes # Smudge Cells Toxic Vacuolation Platelet Estimate Large Platelets Plt Morphology Comment RBC Morphology Polychromasia Hypochromasia Basophilic Stippling Microcytosis Macrocytosis Target Cells Tear Drop Cells Ovalocytes Esthela Cells Acanthocytes (Spur) Smear Tech's Comments Smear Path Review PT INR APTT D-Dimer High Sensitivty O2 Saturation ABG pH at Pt Temp ABG pCO2 at Pt Temp ABG pO2 at Pt Temp ABG HCO3 ABG Base Excess (Actual) VBG pH VBG pCO2 VBG pO2 VBG HCO3 VBG O2 Saturation VBG Base Excess Sodium Potassium Chloride Carbon Dioxide Anion Gap BUN Creatinine Estim Creat Clear Calc Estimated GFR POC Glucose 135 H 208 H 228 H Random Glucose Fasting Glucose Estimat Average Glucose Hemoglobin A1c % Lactic Acid Lactic Acid F/U @ 2Hr Lactic Acid F/U @ 4Hr Calcium Phosphorus Magnesium Ferritin Total Bilirubin Direct Bilirubin AST ALT Alkaline Phosphatase Lactate Dehydrogenase Total Creatine Kinase Troponin I High Sens C-Reactive Protein B-Natriuretic Peptide Total Protein Albumin Procalcitonin TSH Urine Color Urine Appearance Urine pH Ur Specific Riparius Urine Protein Urine Glucose (UA) Urine Ketones Urine Blood Urine Nitrite Ur Leukocyte Esterase Urine RBC Urine WBC Urine WBC Clumps Ur Squamous Epith Cells Ur Renal Epithelial Cell Uric Acid Crystals Amorphous Sediment Urine Bacteria Urine Mucus Stool Occult Blood Urine Opiates Screen Urine Fentanyl Screen Ur Barbiturates Screen Ur Phencyclidine Scrn Ur Amphetamines Screen U Benzodiazepines Scrn Urine Cocaine Screen U Marijuana (THC) Screen C. difficile Tox B Gene COVID-19 (KRISTOPHER) COVID-19 Clin Com Blood Type Antibody Screen Crossmatch 07/28/21 07/29/21 07/29/21 20:07 07:58 11:20 WBC RBC Hgb Hct MCV MCH MCHC RDW Plt Count MPV Immature Gran % (Auto) Neut % (Auto) Lymph % (Auto) Caroline % (Auto) Eos % (Auto) Baso % (Auto) Lymph # (Auto) Caroline # (Auto) Eos # (Auto) Baso # (Auto) Abs Immat Gran (auto) Absolute Neuts (auto) Absolute Nucleated RBC Nucleated RBC % (auto) Neutrophils % (Manual) Band Neutrophils % Lymphocytes % (Manual) Monocytes % (Manual) Eosinophils % (Manual) Metamyelocytes % Myelocytes % Promyelocytes % Abs Neuts (Manual) Lymphocytes # (Manual) Monocytes # (Manual) Eosinophils # (Manual) Metamyelocytes # Myelocytes # Promyelocytes # Smudge Cells Toxic Vacuolation Platelet Estimate Large Platelets Plt Morphology Comment RBC Morphology Polychromasia Hypochromasia Basophilic Stippling Microcytosis Macrocytosis Target Cells Tear Drop Cells Ovalocytes Esthela Cells Acanthocytes (Spur) Smear Tech's Comments Smear Path Review PT INR APTT D-Dimer High Sensitivty O2 Saturation ABG pH at Pt Temp ABG pCO2 at Pt Temp ABG pO2 at Pt Temp ABG HCO3 ABG Base Excess (Actual) VBG pH VBG pCO2 VBG pO2 VBG HCO3 VBG O2 Saturation VBG Base Excess Sodium Potassium Chloride Carbon Dioxide Anion Gap BUN Creatinine Estim Creat Clear Calc Estimated GFR POC Glucose 154 H 105 138 H Random Glucose Fasting Glucose Estimat Average Glucose Hemoglobin A1c % Lactic Acid Lactic Acid F/U @ 2Hr Lactic Acid F/U @ 4Hr Calcium Phosphorus Magnesium Ferritin Total Bilirubin Direct Bilirubin AST ALT Alkaline Phosphatase Lactate Dehydrogenase Total Creatine Kinase Troponin I High Sens C-Reactive Protein B-Natriuretic Peptide Total Protein Albumin Procalcitonin TSH Urine Color Urine Appearance Urine pH Ur Specific Riparius Urine Protein Urine Glucose (UA) Urine Ketones Urine Blood Urine Nitrite Ur Leukocyte Esterase Urine RBC Urine WBC Urine WBC Clumps Ur Squamous Epith Cells Ur Renal Epithelial Cell Uric Acid Crystals Amorphous Sediment Urine Bacteria Urine Mucus Stool Occult Blood Urine Opiates Screen Urine Fentanyl Screen Ur Barbiturates Screen Ur Phencyclidine Scrn Ur Amphetamines Screen U Benzodiazepines Scrn Urine Cocaine Screen U Marijuana (THC) Screen C. difficile Tox B Gene COVID-19 (KRISTOPHER) COVID-19 Clin Com Blood Type Antibody Screen Crossmatch 07/29/21 07/29/21 07/30/21 16:01 20:08 07:15 WBC RBC Hgb Hct MCV MCH MCHC RDW Plt Count MPV Immature Gran % (Auto) Neut % (Auto) Lymph % (Auto) Caroline % (Auto) Eos % (Auto) Baso % (Auto) Lymph # (Auto) Caroline # (Auto) Eos # (Auto) Baso # (Auto) Abs Immat Gran (auto) Absolute Neuts (auto) Absolute Nucleated RBC Nucleated RBC % (auto) Neutrophils % (Manual) Band Neutrophils % Lymphocytes % (Manual) Monocytes % (Manual) Eosinophils % (Manual) Metamyelocytes % Myelocytes % Promyelocytes % Abs Neuts (Manual) Lymphocytes # (Manual) Monocytes # (Manual) Eosinophils # (Manual) Metamyelocytes # Myelocytes # Promyelocytes # Smudge Cells Toxic Vacuolation Platelet Estimate Large Platelets Plt Morphology Comment RBC Morphology Polychromasia Hypochromasia Basophilic Stippling Microcytosis Macrocytosis Target Cells Tear Drop Cells Ovalocytes Drake Cells Acanthocytes (Spur) Smear Tech's Comments Smear Path Review PT INR APTT D-Dimer High Sensitivty O2 Saturation ABG pH at Pt Temp ABG pCO2 at Pt Temp ABG pO2 at Pt Temp ABG HCO3 ABG Base Excess (Actual) VBG pH VBG pCO2 VBG pO2 VBG HCO3 VBG O2 Saturation VBG Base Excess Sodium Potassium Chloride Carbon Dioxide Anion Gap BUN Creatinine Estim Creat Clear Calc Estimated GFR POC Glucose 216 H 194 H 109 Random Glucose Fasting Glucose Estimat Average Glucose Hemoglobin A1c % Lactic Acid Lactic Acid F/U @ 2Hr Lactic Acid F/U @ 4Hr Calcium Phosphorus Magnesium Ferritin Total Bilirubin Direct Bilirubin AST ALT Alkaline Phosphatase Lactate Dehydrogenase Total Creatine Kinase Troponin I High Sens C-Reactive Protein B-Natriuretic Peptide Total Protein Albumin Procalcitonin TSH Urine Color Urine Appearance Urine pH Ur Specific Riparius Urine Protein Urine Glucose (UA) Urine Ketones Urine Blood Urine Nitrite Ur Leukocyte Esterase Urine RBC Urine WBC Urine WBC Clumps Ur Squamous Epith Cells Ur Renal Epithelial Cell Uric Acid Crystals Amorphous Sediment Urine Bacteria Urine Mucus Stool Occult Blood Urine Opiates Screen Urine Fentanyl Screen Ur Barbiturates Screen Ur Phencyclidine Scrn Ur Amphetamines Screen U Benzodiazepines Scrn Urine Cocaine Screen U Marijuana (THC) Screen C. difficile Tox B Gene COVID-19 (KRISTOPHER) COVID-19 Clin Com Blood Type Antibody Screen Crossmatch 07/30/21 07/30/21 07/30/21 11:30 16:12 19:45 WBC RBC Hgb Hct MCV MCH MCHC RDW Plt Count MPV Immature Gran % (Auto) Neut % (Auto) Lymph % (Auto) Caroline % (Auto) Eos % (Auto) Baso % (Auto) Lymph # (Auto) Caroline # (Auto) Eos # (Auto) Baso # (Auto) Abs Immat Gran (auto) Absolute Neuts (auto) Absolute Nucleated RBC Nucleated RBC % (auto) Neutrophils % (Manual) Band Neutrophils % Lymphocytes % (Manual) Monocytes % (Manual) Eosinophils % (Manual) Metamyelocytes % Myelocytes % Promyelocytes % Abs Neuts (Manual) Lymphocytes # (Manual) Monocytes # (Manual) Eosinophils # (Manual) Metamyelocytes # Myelocytes # Promyelocytes # Smudge Cells Toxic Vacuolation Platelet Estimate Large Platelets Plt Morphology Comment RBC Morphology Polychromasia Hypochromasia Basophilic Stippling Microcytosis Macrocytosis Target Cells Tear Drop Cells Ovalocytes Drake Cells Acanthocytes (Spur) Smear Tech's Comments Smear Path Review PT INR APTT D-Dimer High Sensitivty O2 Saturation ABG pH at Pt Temp ABG pCO2 at Pt Temp ABG pO2 at Pt Temp ABG HCO3 ABG Base Excess (Actual) VBG pH VBG pCO2 VBG pO2 VBG HCO3 VBG O2 Saturation VBG Base Excess Sodium Potassium Chloride Carbon Dioxide Anion Gap BUN Creatinine Estim Creat Clear Calc Estimated GFR POC Glucose 197 H 244 H 149 H Random Glucose Fasting Glucose Estimat Average Glucose Hemoglobin A1c % Lactic Acid Lactic Acid F/U @ 2Hr Lactic Acid F/U @ 4Hr Calcium Phosphorus Magnesium Ferritin Total Bilirubin Direct Bilirubin AST ALT Alkaline Phosphatase Lactate Dehydrogenase Total Creatine Kinase Troponin I High Sens C-Reactive Protein B-Natriuretic Peptide Total Protein Albumin Procalcitonin TSH Urine Color Urine Appearance Urine pH Ur Specific Riparius Urine Protein Urine Glucose (UA) Urine Ketones Urine Blood Urine Nitrite Ur Leukocyte Esterase Urine RBC Urine WBC Urine WBC Clumps Ur Squamous Epith Cells Ur Renal Epithelial Cell Uric Acid Crystals Amorphous Sediment Urine Bacteria Urine Mucus Stool Occult Blood Urine Opiates Screen Urine Fentanyl Screen Ur Barbiturates Screen Ur Phencyclidine Scrn Ur Amphetamines Screen U Benzodiazepines Scrn Urine Cocaine Screen U Marijuana (THC) Screen C. difficile Tox B Gene COVID-19 (KRISTOPHER) COVID-19 Clin Com Blood Type Antibody Screen Crossmatch 07/31/21 07/31/21 07/31/21 07:07 11:34 15:27 WBC RBC Hgb Hct MCV MCH MCHC RDW Plt Count MPV Immature Gran % (Auto) Neut % (Auto) Lymph % (Auto) Caroline % (Auto) Eos % (Auto) Baso % (Auto) Lymph # (Auto) Caroline # (Auto) Eos # (Auto) Baso # (Auto) Abs Immat Gran (auto) Absolute Neuts (auto) Absolute Nucleated RBC Nucleated RBC % (auto) Neutrophils % (Manual) Band Neutrophils % Lymphocytes % (Manual) Monocytes % (Manual) Eosinophils % (Manual) Metamyelocytes % Myelocytes % Promyelocytes % Abs Neuts (Manual) Lymphocytes # (Manual) Monocytes # (Manual) Eosinophils # (Manual) Metamyelocytes # Myelocytes # Promyelocytes # Smudge Cells Toxic Vacuolation Platelet Estimate Large Platelets Plt Morphology Comment RBC Morphology Polychromasia Hypochromasia Basophilic Stippling Microcytosis Macrocytosis Target Cells Tear Drop Cells Ovalocytes Esthela Cells Acanthocytes (Spur) Smear Tech's Comments Smear Path Review PT INR APTT D-Dimer High Sensitivty O2 Saturation ABG pH at Pt Temp ABG pCO2 at Pt Temp ABG pO2 at Pt Temp ABG HCO3 ABG Base Excess (Actual) VBG pH VBG pCO2 VBG pO2 VBG HCO3 VBG O2 Saturation VBG Base Excess Sodium Potassium Chloride Carbon Dioxide Anion Gap BUN Creatinine Estim Creat Clear Calc Estimated GFR POC Glucose 113 228 H 238 H Random Glucose Fasting Glucose Estimat Average Glucose Hemoglobin A1c % Lactic Acid Lactic Acid F/U @ 2Hr Lactic Acid F/U @ 4Hr Calcium Phosphorus Magnesium Ferritin Total Bilirubin Direct Bilirubin AST ALT Alkaline Phosphatase Lactate Dehydrogenase Total Creatine Kinase Troponin I High Sens C-Reactive Protein B-Natriuretic Peptide Total Protein Albumin Procalcitonin TSH Urine Color Urine Appearance Urine pH Ur Specific Riparius Urine Protein Urine Glucose (UA) Urine Ketones Urine Blood Urine Nitrite Ur Leukocyte Esterase Urine RBC Urine WBC Urine WBC Clumps Ur Squamous Epith Cells Ur Renal Epithelial Cell Uric Acid Crystals Amorphous Sediment Urine Bacteria Urine Mucus Stool Occult Blood Urine Opiates Screen Urine Fentanyl Screen Ur Barbiturates Screen Ur Phencyclidine Scrn Ur Amphetamines Screen U Benzodiazepines Scrn Urine Cocaine Screen U Marijuana (THC) Screen C. difficile Tox B Gene COVID-19 (KRISTOPHER) COVID-19 Clin Com Blood Type Antibody Screen Crossmatch 07/31/21 08/01/21 08/01/21 19:29 03:14 07:03 WBC RBC Hgb Hct MCV MCH MCHC RDW Plt Count MPV Immature Gran % (Auto) Neut % (Auto) Lymph % (Auto) Caroline % (Auto) Eos % (Auto) Baso % (Auto) Lymph # (Auto) Caroline # (Auto) Eos # (Auto) Baso # (Auto) Abs Immat Gran (auto) Absolute Neuts (auto) Absolute Nucleated RBC Nucleated RBC % (auto) Neutrophils % (Manual) Band Neutrophils % Lymphocytes % (Manual) Monocytes % (Manual) Eosinophils % (Manual) Metamyelocytes % Myelocytes % Promyelocytes % Abs Neuts (Manual) Lymphocytes # (Manual) Monocytes # (Manual) Eosinophils # (Manual) Metamyelocytes # Myelocytes # Promyelocytes # Smudge Cells Toxic Vacuolation Platelet Estimate Large Platelets Plt Morphology Comment RBC Morphology Polychromasia Hypochromasia Basophilic Stippling Microcytosis Macrocytosis Target Cells Tear Drop Cells Ovalocytes Drake Cells Acanthocytes (Spur) Smear Tech's Comments Smear Path Review PT INR APTT D-Dimer High Sensitivty O2 Saturation ABG pH at Pt Temp ABG pCO2 at Pt Temp ABG pO2 at Pt Temp ABG HCO3 ABG Base Excess (Actual) VBG pH VBG pCO2 VBG pO2 VBG HCO3 VBG O2 Saturation VBG Base Excess Sodium Potassium Chloride Carbon Dioxide Anion Gap BUN Creatinine Estim Creat Clear Calc Estimated GFR POC Glucose 120 H 93 125 H Random Glucose Fasting Glucose Estimat Average Glucose Hemoglobin A1c % Lactic Acid Lactic Acid F/U @ 2Hr Lactic Acid F/U @ 4Hr Calcium Phosphorus Magnesium Ferritin Total Bilirubin Direct Bilirubin AST ALT Alkaline Phosphatase Lactate Dehydrogenase Total Creatine Kinase Troponin I High Sens C-Reactive Protein B-Natriuretic Peptide Total Protein Albumin Procalcitonin TSH Urine Color Urine Appearance Urine pH Ur Specific Riparius Urine Protein Urine Glucose (UA) Urine Ketones Urine Blood Urine Nitrite Ur Leukocyte Esterase Urine RBC Urine WBC Urine WBC Clumps Ur Squamous Epith Cells Ur Renal Epithelial Cell Uric Acid Crystals Amorphous Sediment Urine Bacteria Urine Mucus Stool Occult Blood Urine Opiates Screen Urine Fentanyl Screen Ur Barbiturates Screen Ur Phencyclidine Scrn Ur Amphetamines Screen U Benzodiazepines Scrn Urine Cocaine Screen U Marijuana (THC) Screen C. difficile Tox B Gene COVID-19 (KRISTOPHER) COVID-19 Clin Com Blood Type Antibody Screen Crossmatch 08/01/21 08/01/21 08/01/21 08:38 08:38 11:12 WBC 6.6 RBC 4.38 L Hgb 11.2 L Hct 37.8 L MCV 86.3 MCH 25.6 L MCHC 29.6 L RDW 19.3 H Plt Count 324 MPV 9.0 L Immature Gran % (Auto) Neut % (Auto) Lymph % (Auto) Caroline % (Auto) Eos % (Auto) Baso % (Auto) Lymph # (Auto) Caroline # (Auto) Eos # (Auto) Baso # (Auto) Abs Immat Gran (auto) Absolute Neuts (auto) Absolute Nucleated RBC 0.000 Nucleated RBC % (auto) 0.0 Neutrophils % (Manual) Band Neutrophils % Lymphocytes % (Manual) Monocytes % (Manual) Eosinophils % (Manual) Metamyelocytes % Myelocytes % Promyelocytes % Abs Neuts (Manual) Lymphocytes # (Manual) Monocytes # (Manual) Eosinophils # (Manual) Metamyelocytes # Myelocytes # Promyelocytes # Smudge Cells Toxic Vacuolation Platelet Estimate Large Platelets Plt Morphology Comment RBC Morphology Polychromasia Hypochromasia Basophilic Stippling Microcytosis Macrocytosis Target Cells Tear Drop Cells Ovalocytes Drake Cells Acanthocytes (Spur) Smear Tech's Comments Smear Path Review PT INR APTT D-Dimer High Sensitivty O2 Saturation ABG pH at Pt Temp ABG pCO2 at Pt Temp ABG pO2 at Pt Temp ABG HCO3 ABG Base Excess (Actual) VBG pH VBG pCO2 VBG pO2 VBG HCO3 VBG O2 Saturation VBG Base Excess Sodium 143 Potassium 3.0 L D Chloride 97 Carbon Dioxide 37 H Anion Gap 12 BUN 8 L Creatinine 0.60 Estim Creat Clear Calc 152.5 Estimated GFR > 60 POC Glucose 266 H Random Glucose 160 H D Fasting Glucose Estimat Average Glucose Hemoglobin A1c % Lactic Acid Lactic Acid F/U @ 2Hr Lactic Acid F/U @ 4Hr Calcium 9.0 Phosphorus Magnesium Ferritin Total Bilirubin Direct Bilirubin AST ALT Alkaline Phosphatase Lactate Dehydrogenase Total Creatine Kinase Troponin I High Sens C-Reactive Protein B-Natriuretic Peptide Total Protein Albumin Procalcitonin TSH Urine Color Urine Appearance Urine pH Ur Specific Riparius Urine Protein Urine Glucose (UA) Urine Ketones Urine Blood Urine Nitrite Ur Leukocyte Esterase Urine RBC Urine WBC Urine WBC Clumps Ur Squamous Epith Cells Ur Renal Epithelial Cell Uric Acid Crystals Amorphous Sediment Urine Bacteria Urine Mucus Stool Occult Blood Urine Opiates Screen Urine Fentanyl Screen Ur Barbiturates Screen Ur Phencyclidine Scrn Ur Amphetamines Screen U Benzodiazepines Scrn Urine Cocaine Screen U Marijuana (THC) Screen C. difficile Tox B Gene COVID-19 (KRISTOPHER) COVID-19 Clin Com Blood Type Antibody Screen Crossmatch 08/01/21 08/01/21 08/02/21 15:21 19:24 07:00 WBC RBC Hgb Hct MCV MCH MCHC RDW Plt Count MPV Immature Gran % (Auto) Neut % (Auto) Lymph % (Auto) Caroline % (Auto) Eos % (Auto) Baso % (Auto) Lymph # (Auto) Caroline # (Auto) Eos # (Auto) Baso # (Auto) Abs Immat Gran (auto) Absolute Neuts (auto) Absolute Nucleated RBC Nucleated RBC % (auto) Neutrophils % (Manual) Band Neutrophils % Lymphocytes % (Manual) Monocytes % (Manual) Eosinophils % (Manual) Metamyelocytes % Myelocytes % Promyelocytes % Abs Neuts (Manual) Lymphocytes # (Manual) Monocytes # (Manual) Eosinophils # (Manual) Metamyelocytes # Myelocytes # Promyelocytes # Smudge Cells Toxic Vacuolation Platelet Estimate Large Platelets Plt Morphology Comment RBC Morphology Polychromasia Hypochromasia Basophilic Stippling Microcytosis Macrocytosis Target Cells Tear Drop Cells Ovalocytes Esthela Cells Acanthocytes (Spur) Smear Tech's Comments Smear Path Review PT INR APTT D-Dimer High Sensitivty O2 Saturation ABG pH at Pt Temp ABG pCO2 at Pt Temp ABG pO2 at Pt Temp ABG HCO3 ABG Base Excess (Actual) VBG pH VBG pCO2 VBG pO2 VBG HCO3 VBG O2 Saturation VBG Base Excess Sodium Potassium Chloride Carbon Dioxide Anion Gap BUN Creatinine Estim Creat Clear Calc Estimated GFR POC Glucose 232 H 179 H 134 H Random Glucose Fasting Glucose Estimat Average Glucose Hemoglobin A1c % Lactic Acid Lactic Acid F/U @ 2Hr Lactic Acid F/U @ 4Hr Calcium Phosphorus Magnesium Ferritin Total Bilirubin Direct Bilirubin AST ALT Alkaline Phosphatase Lactate Dehydrogenase Total Creatine Kinase Troponin I High Sens C-Reactive Protein B-Natriuretic Peptide Total Protein Albumin Procalcitonin TSH Urine Color Urine Appearance Urine pH Ur Specific Riparius Urine Protein Urine Glucose (UA) Urine Ketones Urine Blood Urine Nitrite Ur Leukocyte Esterase Urine RBC Urine WBC Urine WBC Clumps Ur Squamous Epith Cells Ur Renal Epithelial Cell Uric Acid Crystals Amorphous Sediment Urine Bacteria Urine Mucus Stool Occult Blood Urine Opiates Screen Urine Fentanyl Screen Ur Barbiturates Screen Ur Phencyclidine Scrn Ur Amphetamines Screen U Benzodiazepines Scrn Urine Cocaine Screen U Marijuana (THC) Screen C. difficile Tox B Gene COVID-19 (KRISTOPHER) COVID-19 Clin Com Blood Type Antibody Screen Crossmatch 08/02/21 08/02/21 08/02/21 10:50 15:59 20:21 WBC RBC Hgb Hct MCV MCH MCHC RDW Plt Count MPV Immature Gran % (Auto) Neut % (Auto) Lymph % (Auto) Caroline % (Auto) Eos % (Auto) Baso % (Auto) Lymph # (Auto) Caroline # (Auto) Eos # (Auto) Baso # (Auto) Abs Immat Gran (auto) Absolute Neuts (auto) Absolute Nucleated RBC Nucleated RBC % (auto) Neutrophils % (Manual) Band Neutrophils % Lymphocytes % (Manual) Monocytes % (Manual) Eosinophils % (Manual) Metamyelocytes % Myelocytes % Promyelocytes % Abs Neuts (Manual) Lymphocytes # (Manual) Monocytes # (Manual) Eosinophils # (Manual) Metamyelocytes # Myelocytes # Promyelocytes # Smudge Cells Toxic Vacuolation Platelet Estimate Large Platelets Plt Morphology Comment RBC Morphology Polychromasia Hypochromasia Basophilic Stippling Microcytosis Macrocytosis Target Cells Tear Drop Cells Ovalocytes Drake Cells Acanthocytes (Spur) Smear Tech's Comments Smear Path Review PT INR APTT D-Dimer High Sensitivty O2 Saturation ABG pH at Pt Temp ABG pCO2 at Pt Temp ABG pO2 at Pt Temp ABG HCO3 ABG Base Excess (Actual) VBG pH VBG pCO2 VBG pO2 VBG HCO3 VBG O2 Saturation VBG Base Excess Sodium Potassium Chloride Carbon Dioxide Anion Gap BUN Creatinine Estim Creat Clear Calc Estimated GFR POC Glucose 204 H 219 H 149 H Random Glucose Fasting Glucose Estimat Average Glucose Hemoglobin A1c % Lactic Acid Lactic Acid F/U @ 2Hr Lactic Acid F/U @ 4Hr Calcium Phosphorus Magnesium Ferritin Total Bilirubin Direct Bilirubin AST ALT Alkaline Phosphatase Lactate Dehydrogenase Total Creatine Kinase Troponin I High Sens C-Reactive Protein B-Natriuretic Peptide Total Protein Albumin Procalcitonin TSH Urine Color Urine Appearance Urine pH Ur Specific Riparius Urine Protein Urine Glucose (UA) Urine Ketones Urine Blood Urine Nitrite Ur Leukocyte Esterase Urine RBC Urine WBC Urine WBC Clumps Ur Squamous Epith Cells Ur Renal Epithelial Cell Uric Acid Crystals Amorphous Sediment Urine Bacteria Urine Mucus Stool Occult Blood Urine Opiates Screen Urine Fentanyl Screen Ur Barbiturates Screen Ur Phencyclidine Scrn Ur Amphetamines Screen U Benzodiazepines Scrn Urine Cocaine Screen U Marijuana (THC) Screen C. difficile Tox B Gene COVID-19 (KRISTOPHER) COVID-19 Clin Com Blood Type Antibody Screen Crossmatch 08/03/21 08/03/21 08/03/21 07:11 09:17 11:03 WBC RBC Hgb Hct MCV MCH MCHC RDW Plt Count MPV Immature Gran % (Auto) Neut % (Auto) Lymph % (Auto) Caroline % (Auto) Eos % (Auto) Baso % (Auto) Lymph # (Auto) Caroline # (Auto) Eos # (Auto) Baso # (Auto) Abs Immat Gran (auto) Absolute Neuts (auto) Absolute Nucleated RBC Nucleated RBC % (auto) Neutrophils % (Manual) Band Neutrophils % Lymphocytes % (Manual) Monocytes % (Manual) Eosinophils % (Manual) Metamyelocytes % Myelocytes % Promyelocytes % Abs Neuts (Manual) Lymphocytes # (Manual) Monocytes # (Manual) Eosinophils # (Manual) Metamyelocytes # Myelocytes # Promyelocytes # Smudge Cells Toxic Vacuolation Platelet Estimate Large Platelets Plt Morphology Comment RBC Morphology Polychromasia Hypochromasia Basophilic Stippling Microcytosis Macrocytosis Target Cells Tear Drop Cells Ovalocytes Drake Cells Acanthocytes (Spur) Smear Tech's Comments Smear Path Review PT INR APTT D-Dimer High Sensitivty O2 Saturation ABG pH at Pt Temp ABG pCO2 at Pt Temp ABG pO2 at Pt Temp ABG HCO3 ABG Base Excess (Actual) VBG pH VBG pCO2 VBG pO2 VBG HCO3 VBG O2 Saturation VBG Base Excess Sodium 142 Potassium 3.4 Chloride 96 Carbon Dioxide 36 H Anion Gap 13 BUN 7 L Creatinine 0.58 Estim Creat Clear Calc 157.8 Estimated GFR > 60 POC Glucose 105 250 H Random Glucose 154 H Fasting Glucose Estimat Average Glucose Hemoglobin A1c % Lactic Acid Lactic Acid F/U @ 2Hr Lactic Acid F/U @ 4Hr Calcium 9.4 Phosphorus Magnesium Ferritin Total Bilirubin Direct Bilirubin AST ALT Alkaline Phosphatase Lactate Dehydrogenase Total Creatine Kinase Troponin I High Sens C-Reactive Protein B-Natriuretic Peptide Total Protein Albumin Procalcitonin TSH Urine Color Urine Appearance Urine pH Ur Specific Riparius Urine Protein Urine Glucose (UA) Urine Ketones Urine Blood Urine Nitrite Ur Leukocyte Esterase Urine RBC Urine WBC Urine WBC Clumps Ur Squamous Epith Cells Ur Renal Epithelial Cell Uric Acid Crystals Amorphous Sediment Urine Bacteria Urine Mucus Stool Occult Blood Urine Opiates Screen Urine Fentanyl Screen Ur Barbiturates Screen Ur Phencyclidine Scrn Ur Amphetamines Screen U Benzodiazepines Scrn Urine Cocaine Screen U Marijuana (THC) Screen C. difficile Tox B Gene COVID-19 (KRISTOPHER) COVID-19 Clin Com Blood Type Antibody Screen Crossmatch 08/03/21 08/03/21 08/04/21 15:54 20:21 07:26 WBC RBC Hgb Hct MCV MCH MCHC RDW Plt Count MPV Immature Gran % (Auto) Neut % (Auto) Lymph % (Auto) Caroline % (Auto) Eos % (Auto) Baso % (Auto) Lymph # (Auto) Caroline # (Auto) Eos # (Auto) Baso # (Auto) Abs Immat Gran (auto) Absolute Neuts (auto) Absolute Nucleated RBC Nucleated RBC % (auto) Neutrophils % (Manual) Band Neutrophils % Lymphocytes % (Manual) Monocytes % (Manual) Eosinophils % (Manual) Metamyelocytes % Myelocytes % Promyelocytes % Abs Neuts (Manual) Lymphocytes # (Manual) Monocytes # (Manual) Eosinophils # (Manual) Metamyelocytes # Myelocytes # Promyelocytes # Smudge Cells Toxic Vacuolation Platelet Estimate Large Platelets Plt Morphology Comment RBC Morphology Polychromasia Hypochromasia Basophilic Stippling Microcytosis Macrocytosis Target Cells Tear Drop Cells Ovalocytes Drake Cells Acanthocytes (Spur) Smear Tech's Comments Smear Path Review PT INR APTT D-Dimer High Sensitivty O2 Saturation ABG pH at Pt Temp ABG pCO2 at Pt Temp ABG pO2 at Pt Temp ABG HCO3 ABG Base Excess (Actual) VBG pH VBG pCO2 VBG pO2 VBG HCO3 VBG O2 Saturation VBG Base Excess Sodium Potassium Chloride Carbon Dioxide Anion Gap BUN Creatinine Estim Creat Clear Calc Estimated GFR POC Glucose 119 H 146 H 112 Random Glucose Fasting Glucose Estimat Average Glucose Hemoglobin A1c % Lactic Acid Lactic Acid F/U @ 2Hr Lactic Acid F/U @ 4Hr Calcium Phosphorus Magnesium Ferritin Total Bilirubin Direct Bilirubin AST ALT Alkaline Phosphatase Lactate Dehydrogenase Total Creatine Kinase Troponin I High Sens C-Reactive Protein B-Natriuretic Peptide Total Protein Albumin Procalcitonin TSH Urine Color Urine Appearance Urine pH Ur Specific Riparius Urine Protein Urine Glucose (UA) Urine Ketones Urine Blood Urine Nitrite Ur Leukocyte Esterase Urine RBC Urine WBC Urine WBC Clumps Ur Squamous Epith Cells Ur Renal Epithelial Cell Uric Acid Crystals Amorphous Sediment Urine Bacteria Urine Mucus Stool Occult Blood Urine Opiates Screen Urine Fentanyl Screen Ur Barbiturates Screen Ur Phencyclidine Scrn Ur Amphetamines Screen U Benzodiazepines Scrn Urine Cocaine Screen U Marijuana (THC) Screen C. difficile Tox B Gene COVID-19 (KRISTOPHER) COVID-19 Clin Com Blood Type Antibody Screen Crossmatch 08/04/21 08/04/21 08/04/21 11:02 15:47 20:09 WBC RBC Hgb Hct MCV MCH MCHC RDW Plt Count MPV Immature Gran % (Auto) Neut % (Auto) Lymph % (Auto) Caroline % (Auto) Eos % (Auto) Baso % (Auto) Lymph # (Auto) Caroline # (Auto) Eos # (Auto) Baso # (Auto) Abs Immat Gran (auto) Absolute Neuts (auto) Absolute Nucleated RBC Nucleated RBC % (auto) Neutrophils % (Manual) Band Neutrophils % Lymphocytes % (Manual) Monocytes % (Manual) Eosinophils % (Manual) Metamyelocytes % Myelocytes % Promyelocytes % Abs Neuts (Manual) Lymphocytes # (Manual) Monocytes # (Manual) Eosinophils # (Manual) Metamyelocytes # Myelocytes # Promyelocytes # Smudge Cells Toxic Vacuolation Platelet Estimate Large Platelets Plt Morphology Comment RBC Morphology Polychromasia Hypochromasia Basophilic Stippling Microcytosis Macrocytosis Target Cells Tear Drop Cells Ovalocytes Esthela Cells Acanthocytes (Spur) Smear Tech's Comments Smear Path Review PT INR APTT D-Dimer High Sensitivty O2 Saturation ABG pH at Pt Temp ABG pCO2 at Pt Temp ABG pO2 at Pt Temp ABG HCO3 ABG Base Excess (Actual) VBG pH VBG pCO2 VBG pO2 VBG HCO3 VBG O2 Saturation VBG Base Excess Sodium Potassium Chloride Carbon Dioxide Anion Gap BUN Creatinine Estim Creat Clear Calc Estimated GFR POC Glucose 153 H 190 H 127 H Random Glucose Fasting Glucose Estimat Average Glucose Hemoglobin A1c % Lactic Acid Lactic Acid F/U @ 2Hr Lactic Acid F/U @ 4Hr Calcium Phosphorus Magnesium Ferritin Total Bilirubin Direct Bilirubin AST ALT Alkaline Phosphatase Lactate Dehydrogenase Total Creatine Kinase Troponin I High Sens C-Reactive Protein B-Natriuretic Peptide Total Protein Albumin Procalcitonin TSH Urine Color Urine Appearance Urine pH Ur Specific Riparius Urine Protein Urine Glucose (UA) Urine Ketones Urine Blood Urine Nitrite Ur Leukocyte Esterase Urine RBC Urine WBC Urine WBC Clumps Ur Squamous Epith Cells Ur Renal Epithelial Cell Uric Acid Crystals Amorphous Sediment Urine Bacteria Urine Mucus Stool Occult Blood Urine Opiates Screen Urine Fentanyl Screen Ur Barbiturates Screen Ur Phencyclidine Scrn Ur Amphetamines Screen U Benzodiazepines Scrn Urine Cocaine Screen U Marijuana (THC) Screen C. difficile Tox B Gene COVID-19 (KRISTOPHER) COVID-19 Clin Com Blood Type Antibody Screen Crossmatch 08/05/21 08/05/21 08/05/21 07:13 08:12 08:12 WBC 5.2 RBC 4.43 L Hgb 11.4 L Hct 37.8 L MCV 85.3 MCH 25.7 L MCHC 30.2 L RDW 19.3 H Plt Count 450 H D MPV 8.8 L Immature Gran % (Auto) Neut % (Auto) Lymph % (Auto) Caroline % (Auto) Eos % (Auto) Baso % (Auto) Lymph # (Auto) Caroline # (Auto) Eos # (Auto) Baso # (Auto) Abs Immat Gran (auto) Absolute Neuts (auto) Absolute Nucleated RBC 0.000 Nucleated RBC % (auto) 0.0 Neutrophils % (Manual) Band Neutrophils % Lymphocytes % (Manual) Monocytes % (Manual) Eosinophils % (Manual) Metamyelocytes % Myelocytes % Promyelocytes % Abs Neuts (Manual) Lymphocytes # (Manual) Monocytes # (Manual) Eosinophils # (Manual) Metamyelocytes # Myelocytes # Promyelocytes # Smudge Cells Toxic Vacuolation Platelet Estimate Large Platelets Plt Morphology Comment RBC Morphology Polychromasia Hypochromasia Basophilic Stippling Microcytosis Macrocytosis Target Cells Tear Drop Cells Ovalocytes Esthela Cells Acanthocytes (Spur) Smear Tech's Comments Smear Path Review PT INR APTT D-Dimer High Sensitivty O2 Saturation ABG pH at Pt Temp ABG pCO2 at Pt Temp ABG pO2 at Pt Temp ABG HCO3 ABG Base Excess (Actual) VBG pH VBG pCO2 VBG pO2 VBG HCO3 VBG O2 Saturation VBG Base Excess Sodium 142 Potassium 2.9 L Chloride 98 Carbon Dioxide 32 H Anion Gap 15 BUN 8 L Creatinine 0.57 Estim Creat Clear Calc 160.5 Estimated GFR > 60 POC Glucose 128 H Random Glucose 127 H Fasting Glucose Estimat Average Glucose Hemoglobin A1c % Lactic Acid Lactic Acid F/U @ 2Hr Lactic Acid F/U @ 4Hr Calcium 9.2 Phosphorus Magnesium Ferritin Total Bilirubin Direct Bilirubin AST ALT Alkaline Phosphatase Lactate Dehydrogenase Total Creatine Kinase Troponin I High Sens C-Reactive Protein B-Natriuretic Peptide Total Protein Albumin Procalcitonin TSH Urine Color Urine Appearance Urine pH Ur Specific Riparius Urine Protein Urine Glucose (UA) Urine Ketones Urine Blood Urine Nitrite Ur Leukocyte Esterase Urine RBC Urine WBC Urine WBC Clumps Ur Squamous Epith Cells Ur Renal Epithelial Cell Uric Acid Crystals Amorphous Sediment Urine Bacteria Urine Mucus Stool Occult Blood Urine Opiates Screen Urine Fentanyl Screen Ur Barbiturates Screen Ur Phencyclidine Scrn Ur Amphetamines Screen U Benzodiazepines Scrn Urine Cocaine Screen U Marijuana (THC) Screen C. difficile Tox B Gene COVID-19 (KRISTOPHER) COVID-19 Clin Com Blood Type Antibody Screen Crossmatch 08/05/21 08/05/21 08/05/21 08:13 10:53 15:48 WBC RBC Hgb Hct MCV MCH MCHC RDW Plt Count MPV Immature Gran % (Auto) Neut % (Auto) Lymph % (Auto) Caroline % (Auto) Eos % (Auto) Baso % (Auto) Lymph # (Auto) Caroline # (Auto) Eos # (Auto) Baso # (Auto) Abs Immat Gran (auto) Absolute Neuts (auto) Absolute Nucleated RBC Nucleated RBC % (auto) Neutrophils % (Manual) Band Neutrophils % Lymphocytes % (Manual) Monocytes % (Manual) Eosinophils % (Manual) Metamyelocytes % Myelocytes % Promyelocytes % Abs Neuts (Manual) Lymphocytes # (Manual) Monocytes # (Manual) Eosinophils # (Manual) Metamyelocytes # Myelocytes # Promyelocytes # Smudge Cells Toxic Vacuolation Platelet Estimate Large Platelets Plt Morphology Comment RBC Morphology Polychromasia Hypochromasia Basophilic Stippling Microcytosis Macrocytosis Target Cells Tear Drop Cells Ovalocytes Drake Cells Acanthocytes (Spur) Smear Tech's Comments Smear Path Review PT INR APTT D-Dimer High Sensitivty O2 Saturation ABG pH at Pt Temp ABG pCO2 at Pt Temp ABG pO2 at Pt Temp ABG HCO3 ABG Base Excess (Actual) VBG pH VBG pCO2 VBG pO2 VBG HCO3 VBG O2 Saturation VBG Base Excess Sodium Potassium Chloride Carbon Dioxide Anion Gap BUN Creatinine Estim Creat Clear Calc Estimated GFR POC Glucose 173 H 161 H Random Glucose Fasting Glucose Estimat Average Glucose Hemoglobin A1c % Lactic Acid Lactic Acid F/U @ 2Hr Lactic Acid F/U @ 4Hr Calcium Phosphorus Magnesium Ferritin Total Bilirubin Direct Bilirubin AST ALT Alkaline Phosphatase Lactate Dehydrogenase Total Creatine Kinase Troponin I High Sens C-Reactive Protein B-Natriuretic Peptide Total Protein Albumin Procalcitonin TSH Urine Color Urine Appearance Urine pH Ur Specific Riparius Urine Protein Urine Glucose (UA) Urine Ketones Urine Blood Urine Nitrite Ur Leukocyte Esterase Urine RBC Urine WBC Urine WBC Clumps Ur Squamous Epith Cells Ur Renal Epithelial Cell Uric Acid Crystals Amorphous Sediment Urine Bacteria Urine Mucus Stool Occult Blood Urine Opiates Screen Urine Fentanyl Screen Ur Barbiturates Screen Ur Phencyclidine Scrn Ur Amphetamines Screen U Benzodiazepines Scrn Urine Cocaine Screen U Marijuana (THC) Screen C. difficile Tox B Gene NEGATIVE COVID-19 (KRISTOPHER) COVID-19 Clin Com Blood Type Antibody Screen Crossmatch 08/05/21 08/06/21 08/06/21 19:13 05:47 07:20 WBC RBC Hgb Hct MCV MCH MCHC RDW Plt Count MPV Immature Gran % (Auto) Neut % (Auto) Lymph % (Auto) Caroline % (Auto) Eos % (Auto) Baso % (Auto) Lymph # (Auto) Caroline # (Auto) Eos # (Auto) Baso # (Auto) Abs Immat Gran (auto) Absolute Neuts (auto) Absolute Nucleated RBC Nucleated RBC % (auto) Neutrophils % (Manual) Band Neutrophils % Lymphocytes % (Manual) Monocytes % (Manual) Eosinophils % (Manual) Metamyelocytes % Myelocytes % Promyelocytes % Abs Neuts (Manual) Lymphocytes # (Manual) Monocytes # (Manual) Eosinophils # (Manual) Metamyelocytes # Myelocytes # Promyelocytes # Smudge Cells Toxic Vacuolation Platelet Estimate Large Platelets Plt Morphology Comment RBC Morphology Polychromasia Hypochromasia Basophilic Stippling Microcytosis Macrocytosis Target Cells Tear Drop Cells Ovalocytes Drake Cells Acanthocytes (Spur) Smear Tech's Comments Smear Path Review PT INR APTT D-Dimer High Sensitivty O2 Saturation ABG pH at Pt Temp ABG pCO2 at Pt Temp ABG pO2 at Pt Temp ABG HCO3 ABG Base Excess (Actual) VBG pH VBG pCO2 VBG pO2 VBG HCO3 VBG O2 Saturation VBG Base Excess Sodium 143 Potassium 3.7 D Chloride 101 Carbon Dioxide 33 H Anion Gap 13 BUN 8 L Creatinine 0.57 Estim Creat Clear Calc 160.5 Estimated GFR > 60 POC Glucose 170 H 112 Random Glucose 116 H Fasting Glucose Estimat Average Glucose Hemoglobin A1c % Lactic Acid Lactic Acid F/U @ 2Hr Lactic Acid F/U @ 4Hr Calcium 8.9 Phosphorus Magnesium Ferritin Total Bilirubin Direct Bilirubin AST ALT Alkaline Phosphatase Lactate Dehydrogenase Total Creatine Kinase Troponin I High Sens C-Reactive Protein B-Natriuretic Peptide Total Protein Albumin Procalcitonin TSH Urine Color Urine Appearance Urine pH Ur Specific Riparius Urine Protein Urine Glucose (UA) Urine Ketones Urine Blood Urine Nitrite Ur Leukocyte Esterase Urine RBC Urine WBC Urine WBC Clumps Ur Squamous Epith Cells Ur Renal Epithelial Cell Uric Acid Crystals Amorphous Sediment Urine Bacteria Urine Mucus Stool Occult Blood Urine Opiates Screen Urine Fentanyl Screen Ur Barbiturates Screen Ur Phencyclidine Scrn Ur Amphetamines Screen U Benzodiazepines Scrn Urine Cocaine Screen U Marijuana (THC) Screen C. difficile Tox B Gene COVID-19 (KRISTOPHER) COVID-19 Clin Com Blood Type Antibody Screen Crossmatch 08/06/21 08/06/21 08/06/21 10:53 16:28 20:28 WBC RBC Hgb Hct MCV MCH MCHC RDW Plt Count MPV Immature Gran % (Auto) Neut % (Auto) Lymph % (Auto) Caroline % (Auto) Eos % (Auto) Baso % (Auto) Lymph # (Auto) Caroline # (Auto) Eos # (Auto) Baso # (Auto) Abs Immat Gran (auto) Absolute Neuts (auto) Absolute Nucleated RBC Nucleated RBC % (auto) Neutrophils % (Manual) Band Neutrophils % Lymphocytes % (Manual) Monocytes % (Manual) Eosinophils % (Manual) Metamyelocytes % Myelocytes % Promyelocytes % Abs Neuts (Manual) Lymphocytes # (Manual) Monocytes # (Manual) Eosinophils # (Manual) Metamyelocytes # Myelocytes # Promyelocytes # Smudge Cells Toxic Vacuolation Platelet Estimate Large Platelets Plt Morphology Comment RBC Morphology Polychromasia Hypochromasia Basophilic Stippling Microcytosis Macrocytosis Target Cells Tear Drop Cells Ovalocytes Drake Cells Acanthocytes (Spur) Smear Tech's Comments Smear Path Review PT INR APTT D-Dimer High Sensitivty O2 Saturation ABG pH at Pt Temp ABG pCO2 at Pt Temp ABG pO2 at Pt Temp ABG HCO3 ABG Base Excess (Actual) VBG pH VBG pCO2 VBG pO2 VBG HCO3 VBG O2 Saturation VBG Base Excess Sodium Potassium Chloride Carbon Dioxide Anion Gap BUN Creatinine Estim Creat Clear Calc Estimated GFR POC Glucose 151 H 157 H 126 H Random Glucose Fasting Glucose Estimat Average Glucose Hemoglobin A1c % Lactic Acid Lactic Acid F/U @ 2Hr Lactic Acid F/U @ 4Hr Calcium Phosphorus Magnesium Ferritin Total Bilirubin Direct Bilirubin AST ALT Alkaline Phosphatase Lactate Dehydrogenase Total Creatine Kinase Troponin I High Sens C-Reactive Protein B-Natriuretic Peptide Total Protein Albumin Procalcitonin TSH Urine Color Urine Appearance Urine pH Ur Specific Riparius Urine Protein Urine Glucose (UA) Urine Ketones Urine Blood Urine Nitrite Ur Leukocyte Esterase Urine RBC Urine WBC Urine WBC Clumps Ur Squamous Epith Cells Ur Renal Epithelial Cell Uric Acid Crystals Amorphous Sediment Urine Bacteria Urine Mucus Stool Occult Blood Urine Opiates Screen Urine Fentanyl Screen Ur Barbiturates Screen Ur Phencyclidine Scrn Ur Amphetamines Screen U Benzodiazepines Scrn Urine Cocaine Screen U Marijuana (THC) Screen C. difficile Tox B Gene COVID-19 (KRISTOPHER) COVID-19 Clin Com Blood Type Antibody Screen Crossmatch 08/07/21 08/07/21 08/07/21 06:54 11:12 15:45 WBC RBC Hgb Hct MCV MCH MCHC RDW Plt Count MPV Immature Gran % (Auto) Neut % (Auto) Lymph % (Auto) Caroline % (Auto) Eos % (Auto) Baso % (Auto) Lymph # (Auto) Caroline # (Auto) Eos # (Auto) Baso # (Auto) Abs Immat Gran (auto) Absolute Neuts (auto) Absolute Nucleated RBC Nucleated RBC % (auto) Neutrophils % (Manual) Band Neutrophils % Lymphocytes % (Manual) Monocytes % (Manual) Eosinophils % (Manual) Metamyelocytes % Myelocytes % Promyelocytes % Abs Neuts (Manual) Lymphocytes # (Manual) Monocytes # (Manual) Eosinophils # (Manual) Metamyelocytes # Myelocytes # Promyelocytes # Smudge Cells Toxic Vacuolation Platelet Estimate Large Platelets Plt Morphology Comment RBC Morphology Polychromasia Hypochromasia Basophilic Stippling Microcytosis Macrocytosis Target Cells Tear Drop Cells Ovalocytes Esthela Cells Acanthocytes (Spur) Smear Tech's Comments Smear Path Review PT INR APTT D-Dimer High Sensitivty O2 Saturation ABG pH at Pt Temp ABG pCO2 at Pt Temp ABG pO2 at Pt Temp ABG HCO3 ABG Base Excess (Actual) VBG pH VBG pCO2 VBG pO2 VBG HCO3 VBG O2 Saturation VBG Base Excess Sodium Potassium Chloride Carbon Dioxide Anion Gap BUN Creatinine Estim Creat Clear Calc Estimated GFR POC Glucose 117 H 144 H 169 H Random Glucose Fasting Glucose Estimat Average Glucose Hemoglobin A1c % Lactic Acid Lactic Acid F/U @ 2Hr Lactic Acid F/U @ 4Hr Calcium Phosphorus Magnesium Ferritin Total Bilirubin Direct Bilirubin AST ALT Alkaline Phosphatase Lactate Dehydrogenase Total Creatine Kinase Troponin I High Sens C-Reactive Protein B-Natriuretic Peptide Total Protein Albumin Procalcitonin TSH Urine Color Urine Appearance Urine pH Ur Specific Riparius Urine Protein Urine Glucose (UA) Urine Ketones Urine Blood Urine Nitrite Ur Leukocyte Esterase Urine RBC Urine WBC Urine WBC Clumps Ur Squamous Epith Cells Ur Renal Epithelial Cell Uric Acid Crystals Amorphous Sediment Urine Bacteria Urine Mucus Stool Occult Blood Urine Opiates Screen Urine Fentanyl Screen Ur Barbiturates Screen Ur Phencyclidine Scrn Ur Amphetamines Screen U Benzodiazepines Scrn Urine Cocaine Screen U Marijuana (THC) Screen C. difficile Tox B Gene COVID-19 (KRISTOPHER) COVID-19 Clin Com Blood Type Antibody Screen Crossmatch 08/07/21 08/08/21 08/08/21 20:09 06:20 07:12 WBC RBC Hgb Hct MCV MCH MCHC RDW Plt Count MPV Immature Gran % (Auto) Neut % (Auto) Lymph % (Auto) Caroline % (Auto) Eos % (Auto) Baso % (Auto) Lymph # (Auto) Caroline # (Auto) Eos # (Auto) Baso # (Auto) Abs Immat Gran (auto) Absolute Neuts (auto) Absolute Nucleated RBC Nucleated RBC % (auto) Neutrophils % (Manual) Band Neutrophils % Lymphocytes % (Manual) Monocytes % (Manual) Eosinophils % (Manual) Metamyelocytes % Myelocytes % Promyelocytes % Abs Neuts (Manual) Lymphocytes # (Manual) Monocytes # (Manual) Eosinophils # (Manual) Metamyelocytes # Myelocytes # Promyelocytes # Smudge Cells Toxic Vacuolation Platelet Estimate Large Platelets Plt Morphology Comment RBC Morphology Polychromasia Hypochromasia Basophilic Stippling Microcytosis Macrocytosis Target Cells Tear Drop Cells Ovalocytes Drake Cells Acanthocytes (Spur) Smear Tech's Comments Smear Path Review PT 12.0 INR 1.1 APTT D-Dimer High Sensitivty O2 Saturation ABG pH at Pt Temp ABG pCO2 at Pt Temp ABG pO2 at Pt Temp ABG HCO3 ABG Base Excess (Actual) VBG pH VBG pCO2 VBG pO2 VBG HCO3 VBG O2 Saturation VBG Base Excess Sodium Potassium Chloride Carbon Dioxide Anion Gap BUN Creatinine Estim Creat Clear Calc Estimated GFR POC Glucose 78 99 Random Glucose Fasting Glucose Estimat Average Glucose Hemoglobin A1c % Lactic Acid Lactic Acid F/U @ 2Hr Lactic Acid F/U @ 4Hr Calcium Phosphorus Magnesium Ferritin Total Bilirubin Direct Bilirubin AST ALT Alkaline Phosphatase Lactate Dehydrogenase Total Creatine Kinase Troponin I High Sens C-Reactive Protein B-Natriuretic Peptide Total Protein Albumin Procalcitonin TSH Urine Color Urine Appearance Urine pH Ur Specific Riparius Urine Protein Urine Glucose (UA) Urine Ketones Urine Blood Urine Nitrite Ur Leukocyte Esterase Urine RBC Urine WBC Urine WBC Clumps Ur Squamous Epith Cells Ur Renal Epithelial Cell Uric Acid Crystals Amorphous Sediment Urine Bacteria Urine Mucus Stool Occult Blood Urine Opiates Screen Urine Fentanyl Screen Ur Barbiturates Screen Ur Phencyclidine Scrn Ur Amphetamines Screen U Benzodiazepines Scrn Urine Cocaine Screen U Marijuana (THC) Screen C. difficile Tox B Gene COVID-19 (KRISTOPHER) COVID-19 Clin Com Blood Type Antibody Screen Crossmatch 08/08/21 08/08/21 08/08/21 10:50 16:12 20:05 WBC RBC Hgb Hct MCV MCH MCHC RDW Plt Count MPV Immature Gran % (Auto) Neut % (Auto) Lymph % (Auto) Caroline % (Auto) Eos % (Auto) Baso % (Auto) Lymph # (Auto) Caroline # (Auto) Eos # (Auto) Baso # (Auto) Abs Immat Gran (auto) Absolute Neuts (auto) Absolute Nucleated RBC Nucleated RBC % (auto) Neutrophils % (Manual) Band Neutrophils % Lymphocytes % (Manual) Monocytes % (Manual) Eosinophils % (Manual) Metamyelocytes % Myelocytes % Promyelocytes % Abs Neuts (Manual) Lymphocytes # (Manual) Monocytes # (Manual) Eosinophils # (Manual) Metamyelocytes # Myelocytes # Promyelocytes # Smudge Cells Toxic Vacuolation Platelet Estimate Large Platelets Plt Morphology Comment RBC Morphology Polychromasia Hypochromasia Basophilic Stippling Microcytosis Macrocytosis Target Cells Tear Drop Cells Ovalocytes Esthela Cells Acanthocytes (Spur) Smear Tech's Comments Smear Path Review PT INR APTT D-Dimer High Sensitivty O2 Saturation ABG pH at Pt Temp ABG pCO2 at Pt Temp ABG pO2 at Pt Temp ABG HCO3 ABG Base Excess (Actual) VBG pH VBG pCO2 VBG pO2 VBG HCO3 VBG O2 Saturation VBG Base Excess Sodium Potassium Chloride Carbon Dioxide Anion Gap BUN Creatinine Estim Creat Clear Calc Estimated GFR POC Glucose 128 H 125 H 164 H Random Glucose Fasting Glucose Estimat Average Glucose Hemoglobin A1c % Lactic Acid Lactic Acid F/U @ 2Hr Lactic Acid F/U @ 4Hr Calcium Phosphorus Magnesium Ferritin Total Bilirubin Direct Bilirubin AST ALT Alkaline Phosphatase Lactate Dehydrogenase Total Creatine Kinase Troponin I High Sens C-Reactive Protein B-Natriuretic Peptide Total Protein Albumin Procalcitonin TSH Urine Color Urine Appearance Urine pH Ur Specific Riparius Urine Protein Urine Glucose (UA) Urine Ketones Urine Blood Urine Nitrite Ur Leukocyte Esterase Urine RBC Urine WBC Urine WBC Clumps Ur Squamous Epith Cells Ur Renal Epithelial Cell Uric Acid Crystals Amorphous Sediment Urine Bacteria Urine Mucus Stool Occult Blood Urine Opiates Screen Urine Fentanyl Screen Ur Barbiturates Screen Ur Phencyclidine Scrn Ur Amphetamines Screen U Benzodiazepines Scrn Urine Cocaine Screen U Marijuana (THC) Screen C. difficile Tox B Gene COVID-19 (KRISTOPHER) COVID-19 Clin Com Blood Type Antibody Screen Crossmatch 08/09/21 08/09/21 07:28 09:24 WBC RBC Hgb Hct MCV MCH MCHC RDW Plt Count MPV Immature Gran % (Auto) Neut % (Auto) Lymph % (Auto) Caroline % (Auto) Eos % (Auto) Baso % (Auto) Lymph # (Auto) Caroline # (Auto) Eos # (Auto) Baso # (Auto) Abs Immat Gran (auto) Absolute Neuts (auto) Absolute Nucleated RBC Nucleated RBC % (auto) Neutrophils % (Manual) Band Neutrophils % Lymphocytes % (Manual) Monocytes % (Manual) Eosinophils % (Manual) Metamyelocytes % Myelocytes % Promyelocytes % Abs Neuts (Manual) Lymphocytes # (Manual) Monocytes # (Manual) Eosinophils # (Manual) Metamyelocytes # Myelocytes # Promyelocytes # Smudge Cells Toxic Vacuolation Platelet Estimate Large Platelets Plt Morphology Comment RBC Morphology Polychromasia Hypochromasia Basophilic Stippling Microcytosis Macrocytosis Target Cells Tear Drop Cells Ovalocytes Esthela Cells Acanthocytes (Spur) Smear Tech's Comments Smear Path Review PT INR APTT D-Dimer High Sensitivty O2 Saturation ABG pH at Pt Temp ABG pCO2 at Pt Temp ABG pO2 at Pt Temp ABG HCO3 ABG Base Excess (Actual) VBG pH VBG pCO2 VBG pO2 VBG HCO3 VBG O2 Saturation VBG Base Excess Sodium Potassium Chloride Carbon Dioxide Anion Gap BUN Creatinine Estim Creat Clear Calc Estimated GFR POC Glucose 120 H 107 Random Glucose Fasting Glucose Estimat Average Glucose Hemoglobin A1c % Lactic Acid Lactic Acid F/U @ 2Hr Lactic Acid F/U @ 4Hr Calcium Phosphorus Magnesium Ferritin Total Bilirubin Direct Bilirubin AST ALT Alkaline Phosphatase Lactate Dehydrogenase Total Creatine Kinase Troponin I High Sens C-Reactive Protein B-Natriuretic Peptide Total Protein Albumin Procalcitonin TSH Urine Color Urine Appearance Urine pH Ur Specific Riparius Urine Protein Urine Glucose (UA) Urine Ketones Urine Blood Urine Nitrite Ur Leukocyte Esterase Urine RBC Urine WBC Urine WBC Clumps Ur Squamous Epith Cells Ur Renal Epithelial Cell Uric Acid Crystals Amorphous Sediment Urine Bacteria Urine Mucus Stool Occult Blood Urine Opiates Screen Urine Fentanyl Screen Ur Barbiturates Screen Ur Phencyclidine Scrn Ur Amphetamines Screen U Benzodiazepines Scrn Urine Cocaine Screen U Marijuana (THC) Screen C. difficile Tox B Gene COVID-19 (KRISTOPHER) COVID-19 Clin Com Blood Type Antibody Screen Crossmatch Airway Mallampati Class: III TM Dist: >3cm Neck ROM: Full Denture: Upper Partial: Lower Loose/Missing/Broken Teeth: Yes Heart: tacycardiac Lungs: distant breath sounds Assessment and Plan Assessment Anesthesia Assessment: Anesthesia Plan Discussed and Chart Reviewed Final Anesthetic Review Family History of Problems with Anesthesia: No History of Problems with Anesthesia: No NPO: Yes ASA Class: IV Final Preanesthetic Review: Meds/Allgs Chart Reviewed, Consent Obtained/Reviewed and Anes Risks/Benef Reviewed Patient Risk: High Procedure Risk: Intermediate Anesthetic Plan Anesthetic Plan: MAC: Disposition: Inp. Admit - Standard Bed
--- NOTE | 2021-08-09 12:27 | P.PNIM_ITS ---
Subjective Subjective Date of Service: 08/09/21 Interval History: Seen and examined this morning No abdominal pain, low back pain controlled, no pain radiating down either leg Denies shortness of breath, denies cough Overnight oxygen level 90, placed on oxygen. Review of Systems Review of Systems: Yes all other systems are reviewed and are negative Constitutional Constitutional: Denies chills and Denies fever(s) Respiratory Respiratory: Denies cough Gastrointestinal Gastrointestinal: Denies abdominal pain Physical Exam Vital Signs: Vital Signs: Last Vital Signs Temp 97.5 F 08/09/21 09:31 Pulse 108 H 08/09/21 09:31 Resp 22 H 08/09/21 09:31 BP 126/64 08/09/21 09:31 Pulse Ox 92 08/09/21 09:31 Oxygen Flow Rate 10 06/15/21 00:21 BMI result Body Mass Index 26.7 Const: General: cooperative, comfortable, no acute distress, alert, awake and Physically active Nutritional Appearance: average body habitus and well nourished Orientation/consciousness: patient oriented x3 HENMT: Head: Yes normocephalic and Yes atraumatic Eyes: Sclerae: sclerae normal Resp: Effort & Inspection: normal respiratory effort and able to speak in complete sentences Cardio: Rate: regular rate Rhythm: regular rhythm Heart sounds: S1 normal heart sound present and S2 normal heart sound present GI: Inspection: No distended Palpation (GI): Soft to palpation, not firm and no guarding Neuro: General: patient oriented x3 Cranial nerves: Yes CN's II-XII intact bilaterally and Yes Bilaterally intact EOM present Extrem: Other: Able to move all extremities spontaneously; no lower extremity edema Objective Data Active Medications Acetaminophen (Acetaminophen 325 Mg Tablet) 650 mg OG-TUBE Q6H PRN PRN Reason: Fever Last Admin: 08/04/21 20:15 Dose: 650 mg Documented by: YAMILEX Amlodipine Besylate (Amlodipine Besylate 5 Mg Tablet) 5 mg PO DAILY [facility]; Protocol Last Admin: 08/09/21 09:12 Dose: 5 mg Documented by: COTCARLOS Ascorbic Acid (Ascorbic Acid 500 Mg Tablet) 500 mg PO DAILY [facility] Last Admin: 08/09/21 09:01 Dose: Not Given Documented by: MITCHELL Non-Admin Reason: NPO Dextrose (Dextrose 50 % 25 Gm/50 Ml Syringe) 25 gm IVPUSH Q15M PRN PRN Reason: per Hypoglycemia Standing Ord. Last Admin: 07/18/21 01:43 Dose: 25 gm Documented by: QUINN Docusate Sodium (Docusate Sodium 100 Mg Capsule) 100 mg PO BEDTIME [facility] Last Admin: 08/08/21 21:38 Dose: 100 mg Documented by: DESROA Enoxaparin Sodium (Enoxaparin Sodium 40 Mg/0.4 Ml Syringe) 40 mg SUBCUT Q24H [facility] Last Admin: 08/09/21 07:42 Dose: Not Given Documented by: MITCHELL Non-Admin Reason: pre procedure Fluvoxamine Maleate (Fluvoxamine Maleate 50 Mg Tablet) 100 mg PO BID [facility] Last Admin: 08/09/21 09:12 Dose: 100 mg Documented by: MITCHELL Insulin Glargine (Insulin Glargine,Hum.Rec.Anlog 100 Unit/Ml 10 Ml Vial) 50 unit SUBCUT BID [facility] Last Admin: 07/17/21 21:06 Dose: Not Given Documented by: QUINN Non-Admin Reason: No Insulin Coverage Insulin Human Lispro (Insulin Lispro 100 Unit/Ml 3 Ml Vial) 0 unit SUBCUT QIDACHS [facility]; Protocol Last Admin: 08/09/21 11:08 Dose: Not Given Documented by: MITCHELL Non-Admin Reason: Off Unit: Surgery Lactic Acid (Ammonium Lactate 12 % Lotion 226 Gm Bottle) 1 appl TOPICAL BID [facility]; Protocol Last Admin: 08/09/21 09:12 Dose: 1 appl Documented by: MITCHELL Lisinopril (Lisinopril 10 Mg Tablet) 10 mg PO DAILY [facility]; Protocol Last Admin: 08/09/21 09:12 Dose: 10 mg Documented by: KATEYEMA Methotrexate (Methotrexate Sodium 2.5 Mg Tablet) 25 mg PO Tu@1800 [facility] Last Admin: 08/07/21 17:14 Dose: 25 mg Documented by: EDWARDO Morphine Sulfate (Morphine Sulfate 2 Mg/Ml Cartridge) 2 mg IVPUSH Q4H PRN; Protocol PRN Reason: Pain, Severe (Pain Scale 7-10) Last Admin: 08/09/21 09:12 Dose: 2 mg Documented by: MITCHELL Omeprazole (Omeprazole 20 Mg/10 Ml Susp.Recon) 40 mg PO DAILY@0630 [facility] Last Admin: 08/09/21 06:07 Dose: 40 mg Documented by: LOIS Polyethylene Glycol (Polyethylene Glycol 3350 17 Gm Powd.Pack) 17 gm PO DAILY [facility] Last Admin: 08/09/21 09:01 Dose: Not Given Documented by: MITCHELL Non-Admin Reason: NPO Prednisone (Prednisone 5 Mg Tablet) 5 mg PO DAILY [facility] Last Admin: 08/09/21 09:12 Dose: 5 mg Documented by: MITCHELL Sodium Chloride (0.9 % Sodium Chloride Flush 3 Ml Syringe) 3 ml IVFLUSH QSHIFT [facility] Last Admin: 08/09/21 09:12 Dose: 3 ml Documented by: MITCHELL Tamsulosin HCl (Tamsulosin Hcl 0.4 Mg Capsule) 0.4 mg PO BEDTIME [facility] Last Admin: 08/08/21 21:38 Dose: 0.4 mg Documented by: LOIS Thiamine HCl (Thiamine Hcl 100 Mg Tablet) 200 mg PO BID [facility] Last Admin: 08/09/21 09:01 Dose: Not Given Documented by: MITCHELL Non-Admin Reason: NPO Trazodone HCl (Trazodone Hcl 25 Mg Halftab) 25 mg PO BEDTIME PRN PRN Reason: Insomnia Last Admin: 08/08/21 21:39 Dose: 25 mg Documented by: LOIS Labs CBC & Chem 7: 08/05/21 08:12 08/06/21 05:47 Labs: Laboratory Results - last 24 hr 08/08/21 08/08/21 08/09/21 16:12 20:05 07:28 POC Glucose 125 H 164 H 120 H 08/09/21 09:24 POC Glucose 107 Assessment and Plan (1) Acute hypoxemic respiratory failure: Status: Acute Plan 60-year-old moderately obese with history of Crohn's disease on Stelara, prednisone, methotrexate, diabetes who presents to the emergency department with shortness of breath found to have hypoxia and COVID-19 positive on 06/15/21. On 06/19/21 he snorted cocaine in his room and developed precipitous hypoxemia requiring urgent intubation from developing? He developed the cocaine lung and cardiac toxicity with combined noncardiogenic as well as cardiogenic pulmonary edema? and he remained intubated for 3 weeks and was extubated on 07/11/21? and respiratory status has been stable on room air and transfered to [facility] on 07/12/21.? Clinically had secondary nosocomial bacterial pneumonia and currently Mayda tropicalis urinary tract infection and some persistent atelectasis bilaterally but he is nontoxic hypoxia O2 intermittently low at night ?GITA, may need outpatient sleep study will repeat cxr Back pain hx of T12 compression fracture reports skin allergy to lidocaine patch Multiple areas of compression fx on [facility] CT Discussed with IR provider, plan for kyphoplasty today, 3/3 Acute Abdominal pain. Resolved 4mm partially obstructing stone to distal left ureter without hydronephrosis Started on Flomax afebrile, no leukocytosis consider consult if no resolution HTN BP controlled Continue lisinopril and norvasc Diabetes was on glyburide at home, continue holding. Continue Lantus and SSI Chronic/Resolved Crohn's disease Continue MTX ; will need to follow up for Stelera typically given in [place] have been weaning prednison if any abnormalities of CT scan, will re-consult GI Hypokalemia. Resolved likely r/t diarrhea replace and follow BMP Acute respiratory failure with hypoxia secondary to COVID-19 pneumonia, cocaine induced noncardiogenic and cardiogenic pulmonary edema that required prolonged intubation all resolved at this point, sating well on room air. Mood ? Previously on Remeron, Paxil but now on Luvox psych recommends continuing with Luvox for now. Mayda tropicalis UTI seen by ID Diflucan 200 mg daily for 14 d, completed treatment Stage 2 pressure foam dressing DVT prophylaxis -Lovenox Code status -full code Attending:Dr. Hernandez Dispo: acute rehab vs snf due to physical debility from prolonged hospital stay. awaiting placement Quality Stroke Does the patient have a stroke diagnosis?: No VTE Prior VTE?: No VTE Risk Level:: Medical - moderate - high VTE Device Contraindication: N/A - Device Ordered VTE Drug Contraindication: N/A - Med Ordered
[2021-08-09] MEDS: iohexoL 300 MG/ML 50 ML INFUS..BTL INTRAARTIC (14:12)
[2021-08-09 17:18] LABS: Glucose, Whole Blood 168 mg/dL (60-115)
[2021-08-09 19:26] LABS: Glucose, Whole Blood 227 mg/dL (60-115)
[2021-08-09 21:00] LABS: Glucose, Whole Blood 245 mg/dL (60-115)
[2021-08-09] MEDS: Tamsulosin HCL 0.4 MG CAPSULE PO (21:10)
[2021-08-09] MEDS: Insulin Lispro 100 UNIT/ML 3 ML VIAL SUBCUT (21:10)
[2021-08-09] MEDS: Docusate Sodium 100 MG CAPSULE PO (21:11)
[2021-08-09] MEDS: Thiamine HCL 100 MG TABLET 200 MG PO (21:11)
[2021-08-10 04:00] VITALS: BP 112/68; PULSE 90; RESP 18; TEMP 36.2; O2SAT 97
[2021-08-10 06:51] LABS: Hematocrit 37.1 % (42.0-52.0); Hemoglobin 11.1 g/dl (14.0-18.0); Mean Corpuscular HGB Conc 29.9 g/dl (31.0-36.0); Mean Corpuscular Hemoglobin 26.6 pg (27.0-33.0); Mean Corpuscular Volume 88.8 fL (80.0-98.0); Mean Platelet Volume 9.1 fL (9.4-12.4); Platelet Count 497 X10*3/uL (160-400); Red Blood Count 4.18 X10*6/uL (4.60-5.80); Red Cell Distribution Width 18.6 % (11.0-16.0); White Blood Count 4.3 X10*3/uL (4.8-10.8)
[2021-08-10 07:12] LABS: Anion Gap 13 (12-20); Blood Urea Nitrogen 9 mg/dL (9-16); Carbon Dioxide 32 mmol/L (22-29); Chloride 100 mmol/L (96-108); Estimated Glomerular Filt Rate > 60; Glucose Random 151 mg/dL (60-115); Potassium 5.4 mmol/L (3.3-5.1); Sodium 140 mmol/L (135-145)
[2021-08-10 07:25] LABS: Glucose, Whole Blood 121 mg/dL (60-115)
[2021-08-10 07:47] VITALS: BP 114/78; PULSE 88; RESP 20; TEMP 36.5; O2SAT 99
[2021-08-10 08:05] LABS: B Type Natriuretic Peptide 41 pg/mL (<100)
[2021-08-10] MEDS: Ammonium Lactate 12 % Lotion 226 GM BOTTLE 1 APPL TOPICAL ×2 (08:53→21:16)
[2021-08-10] MEDS: Sodium Zirconium Cyclosilicate 5 GM POWD.PACK PO (08:53)
[2021-08-10] MEDS: Enoxaparin Sodium 40 MG/0.4 ML SYRINGE SUBCUT (08:53)
[2021-08-10] MEDS: 0.9 % Sodium Chloride Flush 3 ML SYRINGE IVFLUSH ×3 (08:53→23:59)
[2021-08-10] MEDS: Ascorbic Acid 500 MG TABLET PO (08:54)
[2021-08-10] MEDS: predniSONE 5 MG TABLET PO (08:54)
[2021-08-10] MEDS: fluvoxaMINE Maleate 50 MG TABLET 100 MG PO ×2 (08:54→21:16)
[2021-08-10] MEDS: Thiamine HCL 100 MG TABLET 200 MG PO ×2 (08:54→21:16)
[2021-08-10 09:45] VITALS: BP 114/78; PULSE 88; O2SAT 99
--- NOTE | 2021-08-10 11:01 | MHC.CM.PN ---
Broad SNF search continues. [place] SNFs are following for bed availability. Per ROUNDS discussion, Kyphoplasty appears to be helping with back pain, with the goal of improving mobility and perhaps the chance for Patient to return home. CM will follow.
[2021-08-10 11:22] LABS: Glucose, Whole Blood 198 mg/dL (60-115)
[2021-08-10 12:00] VITALS: BP 107/73; PULSE 113; RESP 20; TEMP 36.8; O2SAT 98
[2021-08-10 12:23] LABS: Procalcitonin 0.05 ng/mL
--- NOTE | 2021-08-10 13:03 | P.PNIM_ITS ---
Subjective Subjective Date of Service: 08/10/21 Interval History: seen and examined this morning back pain improving following kyphoplasty denies cough or sob Review of Systems Review of Systems: Yes all other systems are reviewed and are negative Constitutional Constitutional: Denies chills and Denies fever(s) Cardiovascular Cardiovascular: Denies chest pain and Denies palpitations Respiratory Respiratory: Denies cough Endocrine Endocrine: Denies palpitations Physical Exam Vital Signs: Vital Signs: Last Vital Signs Temp 98.2 F 08/10/21 12:00 Pulse 113 H 08/10/21 12:00 Resp 20 08/10/21 12:00 BP 107/73 08/10/21 12:00 Pulse Ox 98 08/10/21 12:00 Oxygen Flow Rate 10 06/15/21 00:21 BMI result Body Mass Index 26.7 Const: General: cooperative, comfortable, no acute distress, alert, awake and Physically active Nutritional Appearance: average body habitus and well nourished Orientation/consciousness: patient oriented x3 HENMT: Head: Yes normocephalic and Yes atraumatic Eyes: Sclerae: sclerae normal Resp: Effort & Inspection: normal respiratory effort and able to speak in complete sentences Cardio: Rate: regular rate Rhythm: regular rhythm Heart sounds: S1 normal heart sound present and S2 normal heart sound present GI: Inspection: No distended Palpation (GI): Soft to palpation, not firm and no guarding Neuro: General: patient oriented x3 Cranial nerves: Yes CN's II-XII intact bilaterally and Yes Bilaterally intact EOM present Extrem: Other: Able to move all extremities spontaneously; no lower extremity edema Objective Data Active Medications Acetaminophen (Acetaminophen 325 Mg Tablet) 650 mg OG-TUBE Q6H PRN PRN Reason: Fever Last Admin: 08/04/21 20:15 Dose: 650 mg Documented by: YAMILEX Amlodipine Besylate (Amlodipine Besylate 5 Mg Tablet) 5 mg PO DAILY [facility]; Protocol Last Admin: 08/09/21 09:12 Dose: 5 mg Documented by: COTEMA Ascorbic Acid (Ascorbic Acid 500 Mg Tablet) 500 mg PO DAILY [facility] [place] Last Admin: 08/10/21 08:54 Dose: 500 mg Documented by: MITCHELL Dextrose (Dextrose 50 % 25 Gm/50 Ml Syringe) 25 gm IVPUSH Q15M PRN PRN Reason: per Hypoglycemia Standing Ord. Last Admin: 07/18/21 01:43 Dose: 25 gm Documented by: QUINN Docusate Sodium (Docusate Sodium 100 Mg Capsule) 100 mg PO BEDTIME [facility] [place] Last Admin: 08/09/21 21:11 Dose: 100 mg Documented by: HANDY Enoxaparin Sodium (Enoxaparin Sodium 40 Mg/0.4 Ml Syringe) 40 mg SUBCUT Q24H [facility] Last Admin: 08/10/21 08:53 Dose: 40 mg Documented by: MITCHELL Fluvoxamine Maleate (Fluvoxamine Maleate 50 Mg Tablet) 100 mg PO BID [facility] Last Admin: 08/10/21 08:54 Dose: 100 mg Documented by: MITCHELL Insulin Glargine (Insulin Glargine,Hum.Rec.Anlog 100 Unit/Ml 10 Ml Vial) 50 unit SUBCUT BID [facility] Last Admin: 07/17/21 21:06 Dose: Not Given Documented by: QUINN Non-Admin Reason: No Insulin Coverage Insulin Human Lispro (Insulin Lispro 100 Unit/Ml 3 Ml Vial) 0 unit SUBCUT QIDACHS [facility]; Protocol Last Admin: 08/10/21 11:25 Dose: Not Given Documented by: MITCHELL Non-Admin Reason: No Insulin Coverage Lactic Acid (Ammonium Lactate 12 % Lotion 226 Gm Bottle) 1 appl TOPICAL BID [facility]; Protocol Last Admin: 08/10/21 08:53 Dose: 1 appl Documented by: MITCHELL Lisinopril (Lisinopril 10 Mg Tablet) 10 mg PO DAILY [facility] [place]; Protocol Last Admin: 08/09/21 09:12 Dose: 10 mg Documented by: COTEMA Methotrexate (Methotrexate Sodium 2.5 Mg Tablet) 25 mg PO Tu@1800 [facility] Last Admin: 08/07/21 17:14 Dose: 25 mg Documented by: EDWARDO Omeprazole (Omeprazole 20 Mg/10 Ml Susp.Recon) 40 mg PO DAILY@0630 [facility] Last Admin: 08/10/21 06:04 Dose: 40 mg Documented by: JESSICA Polyethylene Glycol (Polyethylene Glycol 3350 17 Gm Powd.Pack) 17 gm PO DAILY [facility] [place] Last Admin: 08/10/21 08:55 Dose: Not Given Documented by: MITCHELL Non-Admin Reason: Patient Refused Prednisone (Prednisone 5 Mg Tablet) 5 mg PO DAILY [facility] [place] Last Admin: 08/10/21 08:54 Dose: 5 mg Documented by: MITCHELL Sodium Chloride (0.9 % Sodium Chloride Flush 3 Ml Syringe) 3 ml IVFLUSH QSHIFT [facility] [place] Last Admin: 08/10/21 08:53 Dose: 3 ml Documented by: MITCHELL Tamsulosin HCl (Tamsulosin Hcl 0.4 Mg Capsule) 0.4 mg PO BEDTIME [facility] [place] Last Admin: 08/09/21 21:10 Dose: 0.4 mg Documented by: HANDY Thiamine HCl (Thiamine Hcl 100 Mg Tablet) 200 mg PO BID [facility] [place] Last Admin: 08/10/21 08:54 Dose: 200 mg Documented by: MITCHELL Trazodone HCl (Trazodone Hcl 25 Mg Halftab) 25 mg PO BEDTIME PRN PRN Reason: Insomnia Last Admin: 08/08/21 21:39 Dose: 25 mg Documented by: LOIS Labs CBC & Chem 7: 08/10/21 06:00 08/10/21 06:00 Labs: Laboratory Results - last 24 hr 06/15/21 06/16/21 06/18/21 00:51 06:22 06:28 MCV MCH MCHC RDW Plt Count MPV Absolute Nucleated RBC Nucleated RBC % (auto) Carbon Dioxide 25 24 28 Anion Gap Estim Creat Clear Calc Estimated GFR POC Glucose Random Glucose Calcium B-Natriuretic Peptide Procalcitonin 06/20/21 06/20/21 06/21/21 00:27 05:35 05:45 MCV MCH MCHC RDW Plt Count MPV Absolute Nucleated RBC Nucleated RBC % (auto) Carbon Dioxide 28 29 33 H Anion Gap Estim Creat Clear Calc Estimated GFR POC Glucose Random Glucose Calcium B-Natriuretic Peptide Procalcitonin 06/22/21 06/23/21 06/24/21 05:17 05:30 05:16 MCV MCH MCHC RDW Plt Count MPV Absolute Nucleated RBC Nucleated RBC % (auto) Carbon Dioxide 35 H 31 H 32 H Anion Gap Estim Creat Clear Calc Estimated GFR POC Glucose Random Glucose Calcium B-Natriuretic Peptide Procalcitonin 06/25/21 06/26/21 06/27/21 04:55 05:53 05:15 MCV MCH MCHC RDW Plt Count MPV Absolute Nucleated RBC Nucleated RBC % (auto) Carbon Dioxide 28 31 H 30 H Anion Gap Estim Creat Clear Calc Estimated GFR POC Glucose Random Glucose Calcium B-Natriuretic Peptide Procalcitonin 06/28/21 06/29/21 06/30/21 05:27 05:12 05:26 MCV MCH MCHC RDW Plt Count MPV Absolute Nucleated RBC Nucleated RBC % (auto) Carbon Dioxide 29 32 H 32 H Anion Gap Estim Creat Clear Calc Estimated GFR POC Glucose Random Glucose Calcium B-Natriuretic Peptide Procalcitonin 07/01/21 07/02/21 07/03/21 05:30 04:12 05:13 MCV MCH MCHC RDW Plt Count MPV Absolute Nucleated RBC Nucleated RBC % (auto) Carbon Dioxide 34 H 32 H 34 H Anion Gap Estim Creat Clear Calc Estimated GFR POC Glucose Random Glucose Calcium B-Natriuretic Peptide Procalcitonin 07/04/21 07/05/21 07/07/21 05:30 05:20 05:41 MCV MCH MCHC RDW Plt Count MPV Absolute Nucleated RBC Nucleated RBC % (auto) Carbon Dioxide 29 28 29 Anion Gap Estim Creat Clear Calc Estimated GFR POC Glucose Random Glucose Calcium B-Natriuretic Peptide Procalcitonin 07/09/21 07/10/21 07/11/21 05:20 04:40 03:40 MCV MCH MCHC RDW Plt Count MPV Absolute Nucleated RBC Nucleated RBC % (auto) Carbon Dioxide 21 L 27 27 Anion Gap Estim Creat Clear Calc Estimated GFR POC Glucose Random Glucose Calcium B-Natriuretic Peptide Procalcitonin 07/12/21 07/13/21 07/14/21 05:40 06:16 06:59 MCV MCH MCHC RDW Plt Count MPV Absolute Nucleated RBC Nucleated RBC % (auto) Carbon Dioxide 29 24 28 Anion Gap Estim Creat Clear Calc Estimated GFR POC Glucose Random Glucose Calcium B-Natriuretic Peptide Procalcitonin 07/15/21 07/16/21 07/24/21 06:15 06:12 06:46 MCV MCH MCHC RDW Plt Count MPV Absolute Nucleated RBC Nucleated RBC % (auto) Carbon Dioxide 31 H 29 29 Anion Gap Estim Creat Clear Calc Estimated GFR POC Glucose Random Glucose Calcium B-Natriuretic Peptide Procalcitonin 08/01/21 08/03/21 08/05/21 08:38 09:17 08:12 MCV MCH MCHC RDW Plt Count MPV Absolute Nucleated RBC Nucleated RBC % (auto) Carbon Dioxide 37 H 36 H 32 H Anion Gap Estim Creat Clear Calc Estimated GFR POC Glucose Random Glucose Calcium B-Natriuretic Peptide Procalcitonin 08/06/21 08/09/21 08/09/21 05:47 17:13 19:20 MCV MCH MCHC RDW Plt Count MPV Absolute Nucleated RBC Nucleated RBC % (auto) Carbon Dioxide 33 H Anion Gap Estim Creat Clear Calc Estimated GFR POC Glucose 168 H 227 H Random Glucose Calcium B-Natriuretic Peptide Procalcitonin 08/09/21 08/10/21 08/10/21 20:55 06:00 06:00 MCV 88.8 MCH 26.6 L MCHC 29.9 L RDW 18.6 H Plt Count 497 H MPV 9.1 L Absolute Nucleated RBC 0.000 Nucleated RBC % (auto) 0.0 Carbon Dioxide 32 H Anion Gap 13 Estim Creat Clear Calc 143.0 Estimated GFR > 60 POC Glucose 245 H Random Glucose 151 H Calcium 9.0 B-Natriuretic Peptide Procalcitonin 08/10/21 08/10/21 08/10/21 06:00 06:38 07:19 MCV MCH MCHC RDW Plt Count MPV Absolute Nucleated RBC Nucleated RBC % (auto) Carbon Dioxide Anion Gap Estim Creat Clear Calc Estimated GFR POC Glucose 121 H Random Glucose Calcium B-Natriuretic Peptide 41 Procalcitonin 0.05 08/10/21 11:04 MCV MCH MCHC RDW Plt Count MPV Absolute Nucleated RBC Nucleated RBC % (auto) Carbon Dioxide Anion Gap Estim Creat Clear Calc Estimated GFR POC Glucose 198 H Random Glucose Calcium B-Natriuretic Peptide Procalcitonin Assessment and Plan (1) Hypoxia: Status: Acute Plan 60-year-old moderately obese with history of Crohn's disease on Stelara, prednisone, methotrexate, diabetes who presents to the emergency department with shortness of breath found to have hypoxia and COVID-19 positive on 06/15/21. On 04/30 he snorted cocaine in his room and developed precipitous hypoxemia requiring urgent intubation from developing? He developed the cocaine lung and cardiac toxicity with combined noncardiogenic as well as cardiogenic pulmonary edema? and he remained intubated for 3 weeks and was extubated on 07/11/21? and respiratory status has been stable on room air and transfered to [facility] on 07/12/21.? Clinically had secondary nosocomial bacterial pneumonia and currently Mayda tropicalis urinary tract infection and some persistent atelectasis bilaterally but he is nontoxic Acute respiratory failure with hypoxia secondary to COVID-19 pneumonia, cocaine induced noncardiogenic and cardiogenic pulmonary edema that required prolonged intubation initially resolved. drop in oxygen overnight requiring 3L NC at this time repeat cxr showing b/l airspace dz but reviewed image myself, appears improved from previous. probable residual result of anesthesia from kyphoplsasty BNP and procalcitonin negative O2 has been intermittently low at night ?GITA, may need outpatient sleep study wean oxygen as tolerated Back pain hx of T12 compression fracture reports skin allergy to lidocaine patch Multiple areas of compression fx on Lumbar CT s/p kyphoplasty 3/3 Acute Abdominal pain. Resolved 4mm partially obstructing stone to distal left ureter without hydronephrosis Started on Flomax afebrile, no leukocytosis consider consult if no resolution HTN BP controlled Continue lisinopril and norvasc Diabetes was on glyburide at home, continue holding. Continue Lantus and SSI Chronic/Resolved Crohn's disease Continue MTX ; will need to follow up for Stelera typically given in [place] have been weaning prednison if any abnormalities of CT scan, will re-consult GI Hypokalemia. Resolved likely r/t diarrhea replace and follow BMP Mood ? Previously on Remeron, Paxil but now on Luvox psych recommends continuing with Luvox for now. Mayda tropicalis UTI seen by ID Diflucan 200 mg daily for 14 d, completed treatment Stage 2 pressure foam dressing DVT prophylaxis -Lovenox Code status -full code Attending:Dr. Hernandez Dispo: acute rehab vs snf due to physical debility from prolonged hospital stay. awaiting placement Requires ongoing inpatient hospitalization due to hypoxia requiring supplemental oxygen, unable to ambulate on own safely due to above. Quality Stroke Does the patient have a stroke diagnosis?: No VTE Prior VTE?: No VTE Risk Level:: Medical - moderate - high VTE Device Contraindication: N/A - Device Ordered VTE Drug Contraindication: N/A - Med Ordered
[2021-08-10 15:06] VITALS: BP 110/51; PULSE 80; RESP 20; TEMP 36.1; O2SAT 98
[2021-08-10 16:03] LABS: Glucose, Whole Blood 136 mg/dL (60-115)
[2021-08-10 19:03] VITALS: BP 106/69; PULSE 80; RESP 20; TEMP 36.7; O2SAT 99
[2021-08-10 20:04] LABS: Glucose, Whole Blood 159 mg/dL (60-115)
[2021-08-10] MEDS: Tamsulosin HCL 0.4 MG CAPSULE PO (21:16)
[2021-08-11] VITALS (7 sets, daily range): BP systolic 106–129; BP diastolic 69–82; PULSE 85–111; RESP 17–20; TEMP 36.3–36.9; O2SAT 94–99
[2021-08-11 07:35] LABS: Glucose, Whole Blood 107 mg/dL (60-115)
[2021-08-11] MEDS: fluvoxaMINE Maleate 50 MG TABLET 100 MG PO ×2 (08:57→21:38)
[2021-08-11] MEDS: Thiamine HCL 100 MG TABLET 200 MG PO ×2 (08:57→21:39)
[2021-08-11] MEDS: Ammonium Lactate 12 % Lotion 226 GM BOTTLE 1 APPL TOPICAL ×2 (08:57→21:41)
[2021-08-11] MEDS: Ascorbic Acid 500 MG TABLET PO (08:57)
[2021-08-11] MEDS: 0.9 % Sodium Chloride Flush 3 ML SYRINGE IVFLUSH ×3 (08:57→21:41)
[2021-08-11] MEDS: predniSONE 5 MG TABLET PO (08:57)
[2021-08-11] MEDS: Enoxaparin Sodium 40 MG/0.4 ML SYRINGE SUBCUT (08:57)
--- NOTE | 2021-08-11 10:57 | HO.PM.IMPN ---
Subjective Subjective Date of Service: 08/11/21 Interval History: back pain improving following kyphoplasty denies cough or sob Physical Exam Vital Signs: Vital Signs: Last Vital Signs Temp 98.2 F 08/11/21 07:29 Pulse 89 08/11/21 07:29 Resp 17 08/11/21 07:29 BP 129/81 08/11/21 07:29 Pulse Ox 98 08/11/21 07:29 Oxygen Flow Rate 10 06/15/21 00:21 BMI result Body Mass Index 26.7 Appearing in no acute distress lung sounds are clear to auscultation heart regular rate rhythm, clear S1, S2 positive bowel sounds, abdomen is soft, nontender neuro patient is alert x3, no focal deficits Objective Data Active Medications Acetaminophen (Acetaminophen 325 Mg Tablet) 650 mg OG-TUBE Q6H PRN PRN Reason: Fever Last Admin: 08/04/21 20:15 Dose: 650 mg Documented by: YAMILEX Amlodipine Besylate (Amlodipine Besylate 5 Mg Tablet) 5 mg PO DAILY [facility]; Protocol Last Admin: 08/09/21 09:12 Dose: 5 mg Documented by: COTEMA Ascorbic Acid (Ascorbic Acid 500 Mg Tablet) 500 mg PO DAILY [facility] Last Admin: 08/11/21 08:57 Dose: 500 mg Documented by: PITER Dextrose (Dextrose 50 % 25 Gm/50 Ml Vial) 25 gm IVPUSH Q15M PRN PRN Reason: per Hypoglycemia Standing Ord. Docusate Sodium (Docusate Sodium 100 Mg Capsule) 100 mg PO BEDTIME [facility] Last Admin: 08/10/21 21:17 Dose: Not Given Documented by: HANDY Non-Admin Reason: Patient Refused Enoxaparin Sodium (Enoxaparin Sodium 40 Mg/0.4 Ml Syringe) 40 mg SUBCUT Q24H [facility] Last Admin: 08/11/21 08:57 Dose: 40 mg Documented by: PITER Fluvoxamine Maleate (Fluvoxamine Maleate 50 Mg Tablet) 100 mg PO BID [facility] Last Admin: 08/11/21 08:57 Dose: 100 mg Documented by: PITER Insulin Glargine (Insulin Glargine,Hum.Rec.Anlog 100 Unit/Ml 10 Ml Vial) 50 unit SUBCUT BID [facility] Last Admin: 07/17/21 21:06 Dose: Not Given Documented by: QUINN Non-Admin Reason: No Insulin Coverage Insulin Human Lispro (Insulin Lispro 100 Unit/Ml 3 Ml Vial) 0 unit SUBCUT QIDACHS [facility]; Protocol Last Admin: 08/11/21 08:09 Dose: Not Given Documented by: PITER Non-Admin Reason: No Insulin Coverage Lactic Acid (Ammonium Lactate 12 % Lotion 226 Gm Bottle) 1 appl TOPICAL BID [facility]; Protocol Last Admin: 08/11/21 08:57 Dose: 1 appl Documented by: PITER Lisinopril (Lisinopril 10 Mg Tablet) 10 mg PO DAILY [facility]; Protocol Last Admin: 08/09/21 09:12 Dose: 10 mg Documented by: COTCARLOS Methotrexate (Methotrexate Sodium 2.5 Mg Tablet) 25 mg PO Tu@1800 [facility] Last Admin: 08/07/21 17:14 Dose: 25 mg Documented by: EDWARDO Omeprazole (Omeprazole 20 Mg/10 Ml Susp.Recon) 40 mg PO DAILY@0630 [facility] Last Admin: 08/11/21 06:36 Dose: 40 mg Documented by: ELIDA Polyethylene Glycol (Polyethylene Glycol 3350 17 Gm Powd.Pack) 17 gm PO DAILY [facility] Last Admin: 08/11/21 08:58 Dose: Not Given Documented by: PITER Non-Admin Reason: Patient Refused Prednisone (Prednisone 5 Mg Tablet) 5 mg PO DAILY [facility] Last Admin: 08/11/21 08:57 Dose: 5 mg Documented by: PITER Sodium Chloride (0.9 % Sodium Chloride Flush 3 Ml Syringe) 3 ml IVFLUSH QSHIFT [facility] Last Admin: 08/11/21 08:57 Dose: 3 ml Documented by: PITER Tamsulosin HCl (Tamsulosin Hcl 0.4 Mg Capsule) 0.4 mg PO BEDTIME [facility] Last Admin: 08/10/21 21:16 Dose: 0.4 mg Documented by: HANDY Thiamine HCl (Thiamine Hcl 100 Mg Tablet) 200 mg PO BID [facility] Last Admin: 08/11/21 08:57 Dose: 200 mg Documented by: PITER Trazodone HCl (Trazodone Hcl 25 Mg Halftab) 25 mg PO BEDTIME PRN PRN Reason: Insomnia Last Admin: 08/08/21 21:39 Dose: 25 mg Documented by: LOIS Labs CBC & Chem 7: 08/10/21 06:00 08/10/21 06:00 Labs: Laboratory Results - last 24 hr 08/10/21 08/10/21 08/10/21 06:00 11:04 16:00 POC Glucose 198 H 136 H Procalcitonin 0.05 08/10/21 08/11/21 19:58 07:31 POC Glucose 159 H 107 Procalcitonin Assessment and Plan (1) Hypoxia: Status: Acute Plan 60-year-old moderately obese with history of Crohn's disease on Stelara, prednisone, methotrexate, diabetes who presents to the emergency department with shortness of breath found to have hypoxia and COVID-19 positive on 06/15/21. On 06/19/21 he snorted cocaine in his room and developed precipitous hypoxemia requiring urgent intubation from developing? He developed the cocaine lung and cardiac toxicity with combined noncardiogenic as well as cardiogenic pulmonary edema? and he remained intubated for 3 weeks and was extubated on 07/11/21? and respiratory status has been stable on room air and transfered to [facility] on 07/12/21.? Clinically had secondary nosocomial bacterial pneumonia and currently Mayda tropicalis urinary tract infection and some persistent atelectasis bilaterally but he is nontoxic Prolonged debility due to prolonged intubation Requiring daily physical therapy Still requiring 2 person assist for transfers Acute respiratory failure with hypoxia secondary to COVID-19 pneumonia, cocaine induced noncardiogenic and cardiogenic pulmonary edema that required prolonged intubation initially resolved. drop in oxygen overnight requiring 3L NC at this time repeat cxr showing b/l airspace dz but reviewed image myself, appears improved from previous. probable residual result of anesthesia from kyphoplsasty BNP and procalcitonin negative O2 has been intermittently low at night ?GITA, may need outpatient sleep study wean oxygen as tolerated Chronic/Resolved Back pain hx of T12 compression fracture reports skin allergy to lidocaine patch Multiple areas of compression fx on Lumbar CT s/p kyphoplasty 3/ Acute Abdominal pain. Resolved 4mm partially obstructing stone to distal left ureter without hydronephrosis Started on Flomax afebrile, no leukocytosis consider consult if no resolution HTN BP controlled Continue lisinopril and norvasc Diabetes was on glyburide at home, continue holding. Continue Lantus and SSI Crohn's disease Continue MTX ; will need to follow up for Stelera typically given in [place] have been weaning prednison if any abnormalities of CT scan, will re-consult GI Hypokalemia. Resolved likely r/t diarrhea replace and follow BMP Mood ? Previously on Remeron, Paxil but now on Luvox psych recommends continuing with Luvox for now. Mayda tropicalis UTI seen by ID Diflucan 200 mg daily for 14 d, completed treatment Stage 2 pressure foam dressing DVT prophylaxis -Lovenox Code status -full code Attending:Dr. Hernandez Dispo: acute rehab vs snf vs home with services due to physical debility from prolonged hospital stay. awaiting placement Requires ongoing inpatient hospitalization due to hypoxia requiring supplemental oxygen, continued 2 person assist requirement for transfers. No rehab bed availability at this time Quality Stroke Does the patient have a stroke diagnosis?: No VTE Prior VTE?: No VTE Risk Level:: Medical - moderate - high VTE Device Contraindication: N/A - Device Ordered VTE Drug Contraindication: N/A - Med Ordered
[2021-08-11 11:25] LABS: Glucose, Whole Blood 147 mg/dL (60-115)
[2021-08-11 16:22] LABS: Glucose, Whole Blood 136 mg/dL (60-115)
[2021-08-11 20:28] LABS: Glucose, Whole Blood 134 mg/dL (60-115)
[2021-08-11] MEDS: oxyCODONE HCl Immed Release 5 MG TABLET PO (21:38)
[2021-08-11] MEDS: Tamsulosin HCL 0.4 MG CAPSULE PO (21:39)
[2021-08-12 03:37] VITALS: BP 140/86; PULSE 93; RESP 18; TEMP 36.4; O2SAT 98
[2021-08-12 07:21] VITALS: BP 109/68; PULSE 100; RESP 18; TEMP 36.6; O2SAT 95
[2021-08-12 08:04] LABS: Glucose, Whole Blood 134 mg/dL (60-115)
[2021-08-12] MEDS: Enoxaparin Sodium 40 MG/0.4 ML SYRINGE SUBCUT (09:05)
[2021-08-12] MEDS: fluvoxaMINE Maleate 50 MG TABLET 100 MG PO ×2 (09:06→23:03)
[2021-08-12] MEDS: Ascorbic Acid 500 MG TABLET PO (09:06)
[2021-08-12] MEDS: Thiamine HCL 100 MG TABLET 200 MG PO ×2 (09:06→23:03)
[2021-08-12] MEDS: Ammonium Lactate 12 % Lotion 226 GM BOTTLE 1 APPL TOPICAL ×2 (09:06→23:04)
[2021-08-12] MEDS: predniSONE 5 MG TABLET PO (09:06)
[2021-08-12] MEDS: 0.9 % Sodium Chloride Flush 3 ML SYRINGE IVFLUSH (09:06)
--- NOTE | 2021-08-12 09:35 | HO.PM.IMPN ---
Subjective Subjective Date of Service: 08/12/21 Review of Systems back pain improving following kyphoplasty denies cough or sob Physical Exam Vital Signs: Vital Signs: Last Vital Signs Temp 97.8 F 08/12/21 07:21 Pulse 100 08/12/21 07:21 Resp 18 08/12/21 07:21 BP 109/68 08/12/21 07:21 Pulse Ox 95 08/12/21 07:21 Oxygen Flow Rate 10 06/15/21 00:21 BMI result Body Mass Index 26.7 Appearing in no acute distress lung sounds are clear to auscultation heart regular rate rhythm, clear S1, S2 positive bowel sounds, abdomen is soft, nontender neuro patient is alert x3, no focal deficits Objective Data Active Medications Acetaminophen (Acetaminophen 325 Mg Tablet) 650 mg OG-TUBE Q6H PRN PRN Reason: Fever Last Admin: 08/04/21 20:15 Dose: 650 mg Documented by: YAMILEX Amlodipine Besylate (Amlodipine Besylate 5 Mg Tablet) 5 mg PO DAILY [facility]; Protocol Last Admin: 08/09/21 09:12 Dose: 5 mg Documented by: COTEMA Ascorbic Acid (Ascorbic Acid 500 Mg Tablet) 500 mg PO DAILY [facility] Last Admin: 08/12/21 09:06 Dose: 500 mg Documented by: LUZ ELENA Dextrose (Dextrose 50 % 25 Gm/50 Ml Vial) 25 gm IVPUSH Q15M PRN PRN Reason: per Hypoglycemia Standing Ord. Docusate Sodium (Docusate Sodium 100 Mg Capsule) 100 mg PO BEDTIME [facility] Last Admin: 08/11/21 21:41 Dose: Not Given Documented by: MARLI Non-Admin Reason: Patient Refused Enoxaparin Sodium (Enoxaparin Sodium 40 Mg/0.4 Ml Syringe) 40 mg SUBCUT Q24H [facility] Last Admin: 08/12/21 09:05 Dose: 40 mg Documented by: LUZ ELENA Fluvoxamine Maleate (Fluvoxamine Maleate 50 Mg Tablet) 100 mg PO BID [facility] Last Admin: 08/12/21 09:06 Dose: 100 mg Documented by: LUZ ELENA Insulin Glargine (Insulin Glargine,Hum.Rec.Anlog 100 Unit/Ml 10 Ml Vial) 50 unit SUBCUT BID [facility] Last Admin: 07/17/21 21:06 Dose: Not Given Documented by: QUINN Non-Admin Reason: No Insulin Coverage Insulin Human Lispro (Insulin Lispro 100 Unit/Ml 3 Ml Vial) 0 unit SUBCUT QIDACHS [facility]; Protocol Last Admin: 08/12/21 08:14 Dose: Not Given Documented by: LUZ ELENA Non-Admin Reason: No Insulin Coverage Lactic Acid (Ammonium Lactate 12 % Lotion 226 Gm Bottle) 1 appl TOPICAL BID [facility]; Protocol Last Admin: 08/12/21 09:06 Dose: 1 appl Documented by: LUZ ELENA Lisinopril (Lisinopril 10 Mg Tablet) 10 mg PO DAILY [facility]; Protocol Last Admin: 08/09/21 09:12 Dose: 10 mg Documented by: COTEMA Methotrexate (Methotrexate Sodium 2.5 Mg Tablet) 25 mg PO Tu@1800 [facility] Last Admin: 08/07/21 17:14 Dose: 25 mg Documented by: EDWARDO Omeprazole (Omeprazole 20 Mg/10 Ml Susp.Recon) 40 mg PO DAILY@0630 [facility] Last Admin: 08/12/21 06:00 Dose: 40 mg Documented by: MARLI Oxycodone HCl (Oxycodone Hcl Immed Release 5 Mg Tablet) 5 mg PO Q4H PRN PRN Reason: pain Polyethylene Glycol (Polyethylene Glycol 3350 17 Gm Powd.Pack) 17 gm PO DAILY [facility] Last Admin: 08/12/21 09:07 Dose: Not Given Documented by: LUZ ELENA Non-Admin Reason: Patient Refused Prednisone (Prednisone 5 Mg Tablet) 5 mg PO DAILY [facility] Last Admin: 08/12/21 09:06 Dose: 5 mg Documented by: LUZ ELENA Sodium Chloride (0.9 % Sodium Chloride Flush 3 Ml Syringe) 3 ml IVFLUSH QSHIFT [facility] Last Admin: 08/12/21 09:06 Dose: 3 ml Documented by: LUZ ELENA Tamsulosin HCl (Tamsulosin Hcl 0.4 Mg Capsule) 0.4 mg PO BEDTIME [facility] Last Admin: 08/11/21 21:39 Dose: 0.4 mg Documented by: MARLI Thiamine HCl (Thiamine Hcl 100 Mg Tablet) 200 mg PO BID [facility] Last Admin: 08/12/21 09:06 Dose: 200 mg Documented by: LUZ ELENA Trazodone HCl (Trazodone Hcl 25 Mg Halftab) 25 mg PO BEDTIME PRN PRN Reason: Insomnia Last Admin: 08/08/21 21:39 Dose: 25 mg Documented by: LOIS Labs CBC & Chem 7: 08/10/21 06:00 08/10/21 06:00 Labs: Laboratory Results - last 24 hr 08/11/21 08/11/21 08/11/21 11:22 16:17 20:24 POC Glucose 147 H 136 H 134 H 08/12/21 07:23 POC Glucose 134 H Assessment and Plan (1) Hypoxia: Status: Acute Plan 60-year-old moderately obese with history of Crohn's disease on Stelara, prednisone, methotrexate, diabetes who presents to the emergency department with shortness of breath found to have hypoxia and COVID-19 positive on 06/15/21. On 06/19/21 he snorted cocaine in his room and developed precipitous hypoxemia requiring urgent intubation from developing? He developed the cocaine lung and cardiac toxicity with combined noncardiogenic as well as cardiogenic pulmonary edema? and he remained intubated for 3 weeks and was extubated on 07/11/21? and respiratory status has been stable on room air and transfered to [facility] on 07/12/21.? Clinically had secondary nosocomial bacterial pneumonia and currently Mayda tropicalis urinary tract infection and some persistent atelectasis bilaterally but he is nontoxic Prolonged debility due to prolonged intubation Requiring daily physical therapy Still requiring 2 person assist for transfers Acute respiratory failure with hypoxia secondary to COVID-19 pneumonia, cocaine induced noncardiogenic and cardiogenic pulmonary edema that required prolonged intubation initially, resolved. drop in oxygen overnight requiring 3L NC at this time repeat cxr showing b/l airspace dz but reviewed image myself, appears improved from previous. probable residual result of anesthesia from kyphoplsasty BNP and procalcitonin negative O2 has been intermittently low at night but now better ?GITA, may need outpatient sleep study off oxygen Chronic/Resolved Back pain hx of T12 compression fracture reports skin allergy to lidocaine patch Multiple areas of compression fx on Lumbar CT s/p kyphoplasty 3/3 pain medication as needed Acute Abdominal pain. Resolved 4mm partially obstructing stone to distal left ureter without hydronephrosis Started on Flomax afebrile, no leukocytosis consider consult if no resolution HTN BP controlled Continue lisinopril and norvasc Diabetes was on glyburide at home, continue holding. Continue Lantus and SSI Crohn's disease Continue MTX ; will need to follow up for Stelera typically given in [place] have been weaning prednison if any abnormalities of CT scan, will re-consult GI Hypokalemia. Resolved likely r/t diarrhea replace and follow BMP Mood ? Previously on Remeron, Paxil but now on Luvox psych recommends continuing with Luvox for now. Mayda tropicalis UTI seen by ID Diflucan 200 mg daily for 14 d, completed treatment Stage 2 pressure foam dressing DVT prophylaxis -Lovenox Code status -full code Attending:Dr. Hernandez Dispo: acute rehab vs snf vs home with services due to physical debility from prolonged hospital stay. awaiting placement Requires ongoing inpatient hospitalization due to hypoxia requiring supplemental oxygen, continued 2 person assist requirement for transfers. No rehab bed availability at this time Quality Stroke Does the patient have a stroke diagnosis?: No VTE Prior VTE?: No VTE Risk Level:: Medical - moderate - high VTE Device Contraindication: N/A - Device Ordered VTE Drug Contraindication: N/A - Med Ordered
[2021-08-12 11:17] VITALS: BP 127/73; PULSE 106; RESP 18; TEMP 36.6; O2SAT 95
[2021-08-12 11:28] LABS: Glucose, Whole Blood 141 mg/dL (60-115)
[2021-08-12] MEDS: oxyCODONE HCl Immed Release 5 MG TABLET PO ×3 (11:49→23:03)
[2021-08-12 15:26] VITALS: BP 121/79; PULSE 83; RESP 13; TEMP 36.3; O2SAT 97
[2021-08-12 15:41] LABS: Glucose, Whole Blood 152 mg/dL (60-115)
[2021-08-12 19:02] VITALS: BP 148/97; PULSE 51; RESP 16; TEMP 36.2; O2SAT 91
[2021-08-12 19:44] LABS: Glucose, Whole Blood 197 mg/dL (60-115)
[2021-08-12] MEDS: traZODone HCL 25 MG HALFTAB PO (23:03)
[2021-08-12] MEDS: Tamsulosin HCL 0.4 MG CAPSULE PO (23:04)
[2021-08-12] MEDS: Docusate Sodium 100 MG CAPSULE PO (23:04)
[2021-08-12 23:35] VITALS: BP 127/91; PULSE 92; RESP 18; TEMP 36.4; O2SAT 92
[2021-08-13 07:17] VITALS: BP 122/82; PULSE 103; RESP 20; TEMP 36.3; O2SAT 94
[2021-08-13 07:18] LABS: Glucose, Whole Blood 96 mg/dL (60-115)
[2021-08-13 09:24] LABS: Alanine Aminotransferase 18 U/L (0-40); Albumin Level 3.4 g/dL (3.5-5.0); Alkaline Phosphatase 85 U/L (39-117); Anion Gap 12 (12-20); Aspartate Amino Transferase 15 U/L (5-37); Bilirubin Direct 0.2 mg/dL (0.0-0.5); Bilirubin Total 0.4 mg/dL (0.0-1.0); Blood Urea Nitrogen 8 mg/dL (9-16); Carbon Dioxide 36 mmol/L (22-29); Chloride 99 mmol/L (96-108); Creatinine Clr Calc Pharmacy 145.3; Estimated Glomerular Filt Rate > 60; Glucose Random 145 mg/dL (60-115); Potassium 3.8 mmol/L (3.3-5.1); Sodium 143 mmol/L (135-145); Total Protein 5.8 g/dL (6.5-8.0)
[2021-08-13 09:28] VITALS: BP 122/82; PULSE 103; O2SAT 94
[2021-08-13] MEDS: Enoxaparin Sodium 40 MG/0.4 ML SYRINGE SUBCUT (10:00)
[2021-08-13] MEDS: Ammonium Lactate 12 % Lotion 226 GM BOTTLE 1 APPL TOPICAL (10:01)
[2021-08-13] MEDS: Thiamine HCL 100 MG TABLET 200 MG PO ×2 (10:01→19:34)
[2021-08-13] MEDS: polyethylene glycoL 3350 17 GM POWD.PACK PO (10:01)
[2021-08-13] MEDS: 0.9 % Sodium Chloride Flush 3 ML SYRINGE IVFLUSH ×3 (10:01→19:42)
[2021-08-13] MEDS: predniSONE 5 MG TABLET PO (10:02)
[2021-08-13] MEDS: Ascorbic Acid 500 MG TABLET PO (10:02)
[2021-08-13] MEDS: fluvoxaMINE Maleate 50 MG TABLET 100 MG PO ×2 (10:02→19:35)
--- NOTE | 2021-08-13 10:04 | HE.PHANOTE ---
RE: STELARA Patient is self administering Stelara patient filled at [facility]. Per pharmacy (verified with patient and family), last dose was 05/13/21. The next dose was scheduled for 07/08/21, but patient was at [facility] facility. Patient's family told that patient needed to be restarted on med per [facility] providers. Sister Judith received medication on 08/11/21 (shipped same day) and immediately stored in fridge. Medication was brought in here on 08/12 and stored here. Per automobile service writer literature, medication is good for 30 days at room temp (however I do not expect a temp excursion). Order put in under Dr Kaur. Thanks Oksana Pires Pharm.D, BCPS
[2021-08-13] MEDS: oxyCODONE HCl Immed Release 5 MG TABLET PO ×2 (10:07→19:34)
--- NOTE | 2021-08-13 11:21 | P.PNIM_ITS ---
Subjective Subjective Date of Service: 08/13/21 Review of Systems Follow up resp failure back pain improving following kyphoplasty denies cough or sob Physical Exam Vital Signs: Vital Signs: Last Vital Signs Temp 97.3 F 08/13/21 07:17 Pulse 103 H 08/13/21 09:28 Resp 20 08/13/21 07:17 BP 122/82 08/13/21 09:28 Pulse Ox 94 08/13/21 09:28 Oxygen Flow Rate 10 06/15/21 00:21 BMI result Body Mass Index 26.7 Appearing in no acute distress lung sounds are clear to auscultation heart regular rate rhythm, clear S1, S2 positive bowel sounds, abdomen is soft, nontender neuro patient is alert x3, no focal deficits Objective Data Active Medications Acetaminophen (Acetaminophen 325 Mg Tablet) 650 mg OG-TUBE Q6H PRN PRN Reason: Fever Last Admin: 08/04/21 20:15 Dose: 650 mg Documented by: YAMILEX Amlodipine Besylate (Amlodipine Besylate 5 Mg Tablet) 5 mg PO DAILY [facility]; Protocol Last Admin: 08/09/21 09:12 Dose: 5 mg Documented by: MITCHELL Ascorbic Acid (Ascorbic Acid 500 Mg Tablet) 500 mg PO DAILY [facility] Last Admin: 08/13/21 10:02 Dose: 500 mg Documented by: BOGDAN Dextrose (Dextrose 50 % 25 Gm/50 Ml Vial) 25 gm IVPUSH Q15M PRN PRN Reason: per Hypoglycemia Standing Ord. Docusate Sodium (Docusate Sodium 100 Mg Capsule) 100 mg PO BEDTIME [facility] Last Admin: 08/12/21 23:04 Dose: 100 mg Documented by: LOIS Enoxaparin Sodium (Enoxaparin Sodium 40 Mg/0.4 Ml Syringe) 40 mg SUBCUT Q24H [facility] Last Admin: 08/13/21 10:00 Dose: 40 mg Documented by: BOGDAN Fluvoxamine Maleate (Fluvoxamine Maleate 50 Mg Tablet) 100 mg PO BID [facility] Last Admin: 08/13/21 10:02 Dose: 100 mg Documented by: BOGDAN Guaifenesin (Guaifenesin 100 Mg/5 Ml Liquid) 5 ml PO Q4H PRN PRN Reason: Cough Insulin Glargine (Insulin Glargine,Hum.Rec.Anlog 100 Unit/Ml 10 Ml Vial) 50 unit SUBCUT BID [facility] Last Admin: 07/17/21 21:06 Dose: Not Given Documented by: QUINN Non-Admin Reason: No Insulin Coverage Insulin Human Lispro (Insulin Lispro 100 Unit/Ml 3 Ml Vial) 0 unit SUBCUT QIDACHS [facility]; Protocol Last Admin: 08/13/21 07:30 Dose: Not Given Documented by: BOGDAN Non-Admin Reason: No Insulin Coverage Lactic Acid (Ammonium Lactate 12 % Lotion 226 Gm Bottle) 1 appl TOPICAL BID [facility]; Protocol Last Admin: 08/13/21 10:01 Dose: 1 appl Documented by: BOGDAN Lisinopril (Lisinopril 10 Mg Tablet) 10 mg PO DAILY [facility]; Protocol Last Admin: 08/09/21 09:12 Dose: 10 mg Documented by: COTCARLOS Methotrexate (Methotrexate Sodium 2.5 Mg Tablet) 25 mg PO Tu@1800 [facility] Last Admin: 08/07/21 17:14 Dose: 25 mg Documented by: EDWARDO Omeprazole (Omeprazole 20 Mg/10 Ml Susp.Recon) 40 mg PO DAILY@0630 [facility] Last Admin: 08/13/21 06:23 Dose: 40 mg Documented by: LOIS Oxycodone HCl (Oxycodone Hcl Immed Release 5 Mg Tablet) 5 mg PO Q4H PRN PRN Reason: pain Last Admin: 08/13/21 10:07 Dose: 5 mg Documented by: BOGDAN Polyethylene Glycol (Polyethylene Glycol 3350 17 Gm Powd.Pack) 17 gm PO DAILY [facility] Last Admin: 08/13/21 10:01 Dose: 17 gm Documented by: BOGDAN Prednisone (Prednisone 5 Mg Tablet) 5 mg PO DAILY [facility] Last Admin: 08/13/21 10:02 Dose: 5 mg Documented by: BOGDAN Sodium Chloride (0.9 % Sodium Chloride Flush 3 Ml Syringe) 3 ml IVFLUSH QSHIFT [facility] Last Admin: 08/13/21 10:01 Dose: 3 ml Documented by: BOGDAN Tamsulosin HCl (Tamsulosin Hcl 0.4 Mg Capsule) 0.4 mg PO BEDTIME [facility] Last Admin: 08/12/21 23:04 Dose: 0.4 mg Documented by: LOIS Thiamine HCl (Thiamine Hcl 100 Mg Tablet) 200 mg PO BID [facility] Last Admin: 08/13/21 10:01 Dose: 200 mg Documented by: BOGDAN Trazodone HCl (Trazodone Hcl 25 Mg Halftab) 25 mg PO BEDTIME PRN PRN Reason: Insomnia Last Admin: 08/12/21 23:03 Dose: 25 mg Documented by: LOIS Labs CBC & Chem 7: 08/10/21 06:00 08/13/21 08:52 Labs: Laboratory Results - last 24 hr 08/12/21 08/12/21 08/12/21 11:16 15:31 19:26 Anion Gap Estim Creat Clear Calc Estimated GFR POC Glucose 141 H 152 H 197 H Random Glucose Calcium Total Bilirubin Direct Bilirubin AST ALT Alkaline Phosphatase Total Protein Albumin 08/13/21 08/13/21 07:15 08:52 Anion Gap 12 Estim Creat Clear Calc 145.3 Estimated GFR > 60 POC Glucose 96 Random Glucose 145 H Calcium 9.0 Total Bilirubin 0.4 Direct Bilirubin 0.2 AST 15 ALT 18 Alkaline Phosphatase 85 Total Protein 5.8 L Albumin 3.4 L Assessment and Plan (1) Hypoxia: Status: Acute Plan 60-year-old moderately obese with history of Crohn's disease on Stelara, prednisone, methotrexate, diabetes who presents to the emergency department with shortness of breath found to have hypoxia and COVID-19 positive on 06/15/21. On 06/19/21 he snorted cocaine in his room and developed precipitous hypoxemia requiring urgent intubation from developing? He developed the cocaine lung and cardiac toxicity with combined noncardiogenic as well as cardiogenic pulmonary edema? and he remained intubated for 3 weeks and was extubated on 07/11/21? and respiratory status has been stable on room air and transfered to [facility] on 07/12/21.? Clinically had secondary nosocomial bacterial pneumonia and currently Mayda tropicalis urinary tract infection and some persistent atelectasis bilaterally but he is nontoxic Prolonged debility due to prolonged intubation Requiring daily physical therapy Still requiring 2 person assist for transfers Acute respiratory failure with hypoxia secondary to COVID-19 pneumonia, cocaine induced noncardiogenic and cardiogenic pulmonary edema that required prolonged intubation initially, resolved. drop in oxygen overnight requiring 3L NC at this time repeat cxr showing b/l airspace dz but reviewed image myself, appears improved from previous. probable residual result of anesthesia from kyphoplsasty BNP and procalcitonin negative O2 has been intermittently low at night but now better ?GITA, may need outpatient sleep study off oxygen Chronic/Resolved Back pain hx of T12 compression fracture reports skin allergy to lidocaine patch Multiple areas of compression fx on Lumbar CT s/p kyphoplasty 3/3 pain medication as needed Acute Abdominal pain. Resolved 4mm partially obstructing stone to distal left ureter without hydronephrosis Started on Flomax afebrile, no leukocytosis consider consult if no resolution HTN BP controlled Continue lisinopril and norvasc Diabetes was on glyburide at home, continue holding. Continue Lantus and SSI Crohn's disease Continue MTX ; will need to follow up for Stelera typically given in [place] have been weaning prednison if any abnormalities of CT scan, will re-consult GI Hypokalemia. Resolved likely r/t diarrhea replace and follow BMP Mood ? Previously on Remeron, Paxil but now on Luvox psych recommends continuing with Luvox for now. Mayda tropicalis UTI seen by ID Diflucan 200 mg daily for 14 d, completed treatment Stage 2 pressure foam dressing DVT prophylaxis -Lovenox Code status -full code Attending:Dr. Hernandez Dispo: acute rehab vs snf vs home with services due to physical debility from prolonged hospital stay. awaiting placement Requires ongoing inpatient hospitalization due to continued 2 person assist requirement for transfers. No rehab bed availability at this time Quality Stroke Does the patient have a stroke diagnosis?: No VTE Prior VTE?: No VTE Risk Level:: Medical - moderate - high VTE Device Contraindication: N/A - Device Ordered VTE Drug Contraindication: N/A - Med Ordered
[2021-08-13 11:26] VITALS: BP 129/77; PULSE 61; RESP 20; TEMP 37.2; O2SAT 94
[2021-08-13 11:32] LABS: Glucose, Whole Blood 135 mg/dL (60-115)
--- NOTE | 2021-08-13 14:46 | MHC.CM.PN ---
per rounds pt is ready for dc barriers are cocaine use in hospitial
[2021-08-13 15:57] VITALS: BP 130/59; PULSE 102; RESP 19; TEMP 36.8; O2SAT 94
[2021-08-13 16:06] LABS: Glucose, Whole Blood 151 mg/dL (60-115)
[2021-08-13] MEDS: Tamsulosin HCL 0.4 MG CAPSULE PO (19:34)
[2021-08-13] MEDS: traZODone HCL 25 MG HALFTAB PO (19:34)
[2021-08-13] MEDS: Docusate Sodium 100 MG CAPSULE PO (19:39)
[2021-08-13 19:42] VITALS: BP 135/84; PULSE 109; RESP 18; TEMP 37.4; O2SAT 97
[2021-08-13 19:46] LABS: Glucose, Whole Blood 103 mg/dL (60-115)
[2021-08-13 23:29] VITALS: BP 114/61; PULSE 98; RESP 14; TEMP 36.8; O2SAT 95
[2021-08-14] VITALS (7 sets, daily range): BP systolic 98–143; BP diastolic 55–70; PULSE 71–115; RESP 14–19; TEMP 36.4–37.4; O2SAT 91–96
[2021-08-14] MEDS: oxyCODONE HCl Immed Release 5 MG TABLET PO (06:07)
[2021-08-14 07:24] LABS: Glucose, Whole Blood 82 mg/dL (60-115)
[2021-08-14] MEDS: Enoxaparin Sodium 40 MG/0.4 ML SYRINGE SUBCUT (09:00)
[2021-08-14] MEDS: 0.9 % Sodium Chloride Flush 3 ML SYRINGE IVFLUSH ×3 (09:01→20:57)
[2021-08-14] MEDS: predniSONE 5 MG TABLET PO (09:01)
[2021-08-14] MEDS: Thiamine HCL 100 MG TABLET 200 MG PO ×2 (09:03→20:50)
[2021-08-14] MEDS: fluvoxaMINE Maleate 50 MG TABLET 100 MG PO ×2 (09:03→20:50)
[2021-08-14] MEDS: Ascorbic Acid 500 MG TABLET PO (09:03)
[2021-08-14] MEDS: Ammonium Lactate 12 % Lotion 226 GM BOTTLE 1 APPL TOPICAL ×2 (09:04→20:54)
--- NOTE | 2021-08-14 10:06 | HO.PM.IMPN ---
Subjective Subjective Date of Service: 08/14/21 Review of Systems Follow up resp failure back pain improved significantly following kyphoplasty denies cough or sob Physical Exam Vital Signs: Vital Signs: Last Vital Signs Temp 98.2 F 08/14/21 07:06 Pulse 99 08/14/21 08:47 Resp 19 08/14/21 07:06 BP 119/63 08/14/21 08:47 Pulse Ox 95 08/14/21 08:47 Oxygen Flow Rate 10 06/15/21 00:21 BMI result Body Mass Index 26.7 Appearing in no acute distress lung sounds are clear to auscultation heart regular rate rhythm, clear S1, S2 positive bowel sounds, abdomen is soft, nontender neuro patient is alert x3, no focal deficits Objective Data Active Medications Acetaminophen (Acetaminophen 325 Mg Tablet) 650 mg OG-TUBE Q6H PRN PRN Reason: Fever Last Admin: 08/04/21 20:15 Dose: 650 mg Documented by: YAMILEX Amlodipine Besylate (Amlodipine Besylate 5 Mg Tablet) 5 mg PO DAILY [facility]; Protocol Last Admin: 08/09/21 09:12 Dose: 5 mg Documented by: MITCHELL Ascorbic Acid (Ascorbic Acid 500 Mg Tablet) 500 mg PO DAILY [facility] Last Admin: 08/14/21 09:03 Dose: 500 mg Documented by: BOGDAN Dextrose (Dextrose 50 % 25 Gm/50 Ml Vial) 25 gm IVPUSH Q15M PRN PRN Reason: per Hypoglycemia Standing Ord. Docusate Sodium (Docusate Sodium 100 Mg Capsule) 100 mg PO BEDTIME [facility] Last Admin: 08/13/21 19:39 Dose: 100 mg Documented by: LOIS Enoxaparin Sodium (Enoxaparin Sodium 40 Mg/0.4 Ml Syringe) 40 mg SUBCUT Q24H [facility] Last Admin: 08/14/21 09:00 Dose: 40 mg Documented by: BOGDAN Fluvoxamine Maleate (Fluvoxamine Maleate 50 Mg Tablet) 100 mg PO BID [facility] Last Admin: 08/14/21 09:03 Dose: 100 mg Documented by: BOGDAN Guaifenesin (Guaifenesin 100 Mg/5 Ml Liquid) 5 ml PO Q4H PRN PRN Reason: Cough Insulin Glargine (Insulin Glargine,Hum.Rec.Anlog 100 Unit/Ml 10 Ml Vial) 50 unit SUBCUT BID [facility] Last Admin: 07/17/21 21:06 Dose: Not Given Documented by: QUINN Non-Admin Reason: No Insulin Coverage Insulin Human Lispro (Insulin Lispro 100 Unit/Ml 3 Ml Vial) 0 unit SUBCUT QIDACHS [facility]; Protocol Last Admin: 08/14/21 07:26 Dose: Not Given Documented by: BOGDAN Non-Admin Reason: No Insulin Coverage Lactic Acid (Ammonium Lactate 12 % Lotion 226 Gm Bottle) 1 appl TOPICAL BID [facility]; Protocol Last Admin: 08/14/21 09:04 Dose: 1 appl Documented by: BOGDAN Lisinopril (Lisinopril 10 Mg Tablet) 10 mg PO DAILY [facility]; Protocol Last Admin: 08/09/21 09:12 Dose: 10 mg Documented by: COTCARLOS Methotrexate (Methotrexate Sodium 2.5 Mg Tablet) 25 mg PO Tu@1800 [facility] Last Admin: 08/07/21 17:14 Dose: 25 mg Documented by: EDWARDO Omeprazole (Omeprazole 20 Mg/10 Ml Susp.Recon) 40 mg PO DAILY@0630 [facility] Last Admin: 08/14/21 06:07 Dose: 40 mg Documented by: LOIS Oxycodone HCl (Oxycodone Hcl Immed Release 5 Mg Tablet) 5 mg PO Q4H PRN PRN Reason: pain Last Admin: 08/14/21 06:07 Dose: 5 mg Documented by: LOIS Polyethylene Glycol (Polyethylene Glycol 3350 17 Gm Powd.Pack) 17 gm PO DAILY [facility] Last Admin: 08/14/21 09:04 Dose: Not Given Documented by: BOGDAN Non-Admin Reason: Patient Refused Prednisone (Prednisone 5 Mg Tablet) 5 mg PO DAILY [facility] Last Admin: 08/14/21 09:01 Dose: 5 mg Documented by: BOGDAN Sodium Chloride (0.9 % Sodium Chloride Flush 3 Ml Syringe) 3 ml IVFLUSH QSHIFT [facility] Last Admin: 08/14/21 09:01 Dose: 3 ml Documented by: BOGDAN Tamsulosin HCl (Tamsulosin Hcl 0.4 Mg Capsule) 0.4 mg PO BEDTIME [facility] Last Admin: 08/13/21 19:34 Dose: 0.4 mg Documented by: HO.DESROA Thiamine HCl (Thiamine Hcl 100 Mg Tablet) 200 mg PO BID [facility] Last Admin: 08/14/21 09:03 Dose: 200 mg Documented by: BOGDAN Trazodone HCl (Trazodone Hcl 25 Mg Halftab) 25 mg PO BEDTIME PRN PRN Reason: Insomnia Last Admin: 08/13/21 19:34 Dose: 25 mg Documented by: LOIS Labs CBC & Chem 7: 08/10/21 06:00 08/13/21 08:52 Labs: Laboratory Results - last 24 hr 08/13/21 08/13/21 08/13/21 11:28 16:02 19:40 POC Glucose 135 H 151 H 103 08/14/21 07:10 POC Glucose 82 Assessment and Plan (1) Hypoxia: Status: Acute Plan 60-year-old moderately obese with history of Crohn's disease on Stelara, prednisone, methotrexate, diabetes who presents to the emergency department with shortness of breath found to have hypoxia and COVID-19 positive on 06/15/21. On 06/19/21 he snorted cocaine in his room and developed precipitous hypoxemia requiring urgent intubation from developing? He developed the cocaine lung and cardiac toxicity with combined noncardiogenic as well as cardiogenic pulmonary edema? and he remained intubated for 3 weeks and was extubated on 07/11/21? and respiratory status has been stable on room air and transfered to [facility] on 07/12/21.? Clinically had secondary nosocomial bacterial pneumonia and currently Mayda tropicalis urinary tract infection and some persistent atelectasis bilaterally but he is nontoxic Prolonged debility due to prolonged intubation Requiring daily physical therapy Still requiring 2 person assist for transfers Chronic/Resolved Acute respiratory failure with hypoxia secondary to COVID-19 pneumonia, cocaine induced noncardiogenic and cardiogenic pulmonary edema that required prolonged intubation initially, resolved. drop in oxygen overnight requiring 3L NC at this time repeat cxr showing b/l airspace dz but reviewed image myself, appears improved from previous. 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 Resolved 4mm partially obstructing stone to distal left ureter without hydronephrosis Started on Flomax afebrile, no leukocytosis consider consult if no resolution HTN BP controlled Continue lisinopril and norvasc Diabetes was on glyburide at home, continue holding. Continue Lantus and SSI Crohn's disease Continue MTX ; will need to follow up for Stelera typically given in [place] have been weaning prednison if any abnormalities of CT scan, will re-consult GI Hypokalemia. Resolved likely r/t diarrhea replace and follow BMP Mood ? Previously on Remeron, Paxil but now on Luvox psych recommends continuing with Luvox for now. Mayda tropicalis UTI seen by ID Diflucan 200 mg daily for 14 d, completed treatment Stage 2 pressure foam dressing DVT prophylaxis -Lovenox Code status -full code Attending:Dr. Hernandez Dispo: acute rehab vs snf vs home with services due to physical debility from prolonged hospital stay. awaiting placement Requires ongoing inpatient hospitalization due to continued 2 person assist requirement for transfers. No rehab bed availability at this time Quality Stroke Does the patient have a stroke diagnosis?: No VTE Prior VTE?: No VTE Risk Level:: Medical - moderate - high VTE Device Contraindication: N/A - Device Ordered VTE Drug Contraindication: N/A - Med Ordered
[2021-08-14 11:34] LABS: Glucose, Whole Blood 155 mg/dL (60-115)
[2021-08-14 16:44] LABS: Glucose, Whole Blood 142 mg/dL (60-115)
[2021-08-14] MEDS: metHOTREXate sodium 2.5 MG TABLET 25 MG PO (18:34)
[2021-08-14 20:18] LABS: Glucose, Whole Blood 128 mg/dL (60-115)
[2021-08-14] MEDS: Tamsulosin HCL 0.4 MG CAPSULE PO (20:50)
[2021-08-14] MEDS: traZODone HCL 25 MG HALFTAB PO (20:50)
[2021-08-14] MEDS: Acetaminophen 325 MG TABLET 650 MG OG-TUBE (20:52)
[2021-08-15] VITALS (7 sets, daily range): BP systolic 113–141; BP diastolic 65–87; PULSE 70–125; RESP 15–18; TEMP 36.1–37.2; O2SAT 90–96
[2021-08-15 06:59] LABS: Hematocrit 33.9 % (42.0-52.0); Hemoglobin 9.9 g/dl (14.0-18.0); Mean Corpuscular HGB Conc 29.2 g/dl (31.0-36.0); Mean Corpuscular Hemoglobin 26.3 pg (27.0-33.0); Mean Corpuscular Volume 90.2 fL (80.0-98.0); Mean Platelet Volume 9.5 fL (9.4-12.4); Platelet Count 315 X10*3/uL (160-400); Red Blood Count 3.76 X10*6/uL (4.60-5.80); Red Cell Distribution Width 19.1 % (11.0-16.0); White Blood Count 6.4 X10*3/uL (4.8-10.8)
[2021-08-15 07:09] LABS: Glucose, Whole Blood 96 mg/dL (60-115)
[2021-08-15 07:10] LABS: Anion Gap 15 (12-20); Blood Urea Nitrogen 8 mg/dL (9-16); Calcium 8.2 mg/dL (8.4-10.2); Carbon Dioxide 28 mmol/L (22-29); Chloride 103 mmol/L (96-108); Creatinine Clr Calc Pharmacy 155.1; Estimated Glomerular Filt Rate > 60; Glucose Random 96 mg/dL (60-115); Potassium 3.9 mmol/L (3.3-5.1); Sodium 142 mmol/L (135-145)
[2021-08-15] MEDS: fluvoxaMINE Maleate 50 MG TABLET 100 MG PO ×2 (07:27→21:01)
[2021-08-15] MEDS: Enoxaparin Sodium 40 MG/0.4 ML SYRINGE SUBCUT (07:27)
[2021-08-15] MEDS: oxyCODONE HCl Immed Release 5 MG TABLET PO ×3 (07:27→23:57)
[2021-08-15] MEDS: 0.9 % Sodium Chloride Flush 3 ML SYRINGE IVFLUSH ×3 (07:27→23:54)
[2021-08-15] MEDS: Ascorbic Acid 500 MG TABLET PO (07:27)
[2021-08-15] MEDS: predniSONE 5 MG TABLET PO (07:28)
[2021-08-15] MEDS: Thiamine HCL 100 MG TABLET 200 MG PO ×2 (07:28→21:01)
[2021-08-15] MEDS: Ammonium Lactate 12 % Lotion 226 GM BOTTLE 1 APPL TOPICAL ×2 (07:28→21:03)
--- NOTE | 2021-08-15 10:00 | P.PNIM_ITS ---
Subjective Subjective Date of Service: 08/15/21 Review of Systems Prolong stay d/t due to placement issues, no new issues, pain is better following Kyphoplasty Physical Exam Vital Signs: Vital Signs: Last Vital Signs Temp 97 F 08/15/21 07:12 Pulse 98 08/15/21 07:12 Resp 15 08/15/21 07:12 BP 113/68 08/15/21 07:12 Pulse Ox 90 L 08/15/21 07:12 Oxygen Flow Rate 10 06/15/21 00:21 BMI result Body Mass Index 26.7 Const: Other: General: AO X 3, no acute distress Resp: CTA bilateral CVS: S1,S2,RRR GI: +BS, NT, no distention Skin: No rash, stage 2 pressure, see wound care note 07/25 for details Neuro: motor grossly intact Psych: appropriate affect Objective Data Active Medications Acetaminophen (Acetaminophen 325 Mg Tablet) 650 mg OG-TUBE Q6H PRN PRN Reason: Fever Last Admin: 08/14/21 20:52 Dose: 650 mg Documented by: MARLI Amlodipine Besylate (Amlodipine Besylate 5 Mg Tablet) 5 mg PO DAILY [facility]; Protocol Last Admin: 08/09/21 09:12 Dose: 5 mg Documented by: COTEMA Ascorbic Acid (Ascorbic Acid 500 Mg Tablet) 500 mg PO DAILY [facility] Last Admin: 08/15/21 07:27 Dose: 500 mg Documented by: ANT Dextrose (Dextrose 50 % 25 Gm/50 Ml Vial) 25 gm IVPUSH Q15M PRN PRN Reason: per Hypoglycemia Standing Ord. Docusate Sodium (Docusate Sodium 100 Mg Capsule) 100 mg PO BEDTIME [facility] Last Admin: 08/14/21 20:54 Dose: Not Given Documented by: MARLI Non-Admin Reason: Patient Refused Enoxaparin Sodium (Enoxaparin Sodium 40 Mg/0.4 Ml Syringe) 40 mg SUBCUT Q24H [facility] Last Admin: 08/15/21 07:27 Dose: 40 mg Documented by: ANT Fluvoxamine Maleate (Fluvoxamine Maleate 50 Mg Tablet) 100 mg PO BID [facility] Last Admin: 08/15/21 07:27 Dose: 100 mg Documented by: ANT Guaifenesin (Guaifenesin 100 Mg/5 Ml Liquid) 5 ml PO Q4H PRN PRN Reason: Cough Insulin Glargine (Insulin Glargine,Hum.Rec.Anlog 100 Unit/Ml 10 Ml Vial) 50 unit SUBCUT BID [facility] Last Admin: 07/17/21 21:06 Dose: Not Given Documented by: QUINN Non-Admin Reason: No Insulin Coverage Insulin Human Lispro (Insulin Lispro 100 Unit/Ml 3 Ml Vial) 0 unit SUBCUT QIDACHS [facility]; Protocol Last Admin: 08/15/21 07:23 Dose: Not Given Documented by: ANT Non-Admin Reason: No Insulin Coverage Lactic Acid (Ammonium Lactate 12 % Lotion 226 Gm Bottle) 1 appl TOPICAL BID [facility]; Protocol Last Admin: 08/15/21 07:28 Dose: 1 appl Documented by: ANT Lisinopril (Lisinopril 10 Mg Tablet) 10 mg PO DAILY [facility]; Protocol Last Admin: 08/09/21 09:12 Dose: 10 mg Documented by: COTEMA Methotrexate (Methotrexate Sodium 2.5 Mg Tablet) 25 mg PO Tu@1800 [facility] Last Admin: 08/14/21 18:34 Dose: 25 mg Documented by: BOGDAN Omeprazole (Omeprazole 20 Mg/10 Ml Susp.Recon) 40 mg PO DAILY@0630 [facility] Last Admin: 08/15/21 05:47 Dose: 40 mg Documented by: MARLI Oxycodone HCl (Oxycodone Hcl Immed Release 5 Mg Tablet) 5 mg PO Q4H PRN PRN Reason: pain Last Admin: 08/15/21 07:27 Dose: 5 mg Documented by: ANT Polyethylene Glycol (Polyethylene Glycol 3350 17 Gm Powd.Pack) 17 gm PO DAILY [facility] Last Admin: 08/15/21 07:30 Dose: Not Given Documented by: ANT Non-Admin Reason: refused Prednisone (Prednisone 5 Mg Tablet) 5 mg PO DAILY [facility] Last Admin: 08/15/21 07:28 Dose: 5 mg Documented by: ANT Sodium Chloride (0.9 % Sodium Chloride Flush 3 Ml Syringe) 3 ml IVFLUSH QSHIFT [facility] Last Admin: 08/15/21 07:27 Dose: 3 ml Documented by: ANT Tamsulosin HCl (Tamsulosin Hcl 0.4 Mg Capsule) 0.4 mg PO BEDTIME [facility] Last Admin: 08/14/21 20:50 Dose: 0.4 mg Documented by: MARLI Thiamine HCl (Thiamine Hcl 100 Mg Tablet) 200 mg PO BID [facility] Last Admin: 08/15/21 07:28 Dose: 200 mg Documented by: ANT Trazodone HCl (Trazodone Hcl 25 Mg Halftab) 25 mg PO BEDTIME PRN PRN Reason: Insomnia Last Admin: 08/14/21 20:50 Dose: 25 mg Documented by: MARLI Labs CBC & Chem 7: 08/15/21 06:35 08/15/21 06:35 Labs: Laboratory Results - last 24 hr 08/14/21 08/14/21 08/14/21 11:20 16:39 20:06 MCV MCH MCHC RDW Plt Count MPV Absolute Nucleated RBC Nucleated RBC % (auto) Anion Gap Estim Creat Clear Calc Estimated GFR POC Glucose 155 H 142 H 128 H Random Glucose Calcium 08/15/21 08/15/21 08/15/21 06:35 06:35 07:06 MCV 90.2 MCH 26.3 L MCHC 29.2 L RDW 19.1 H Plt Count 315 D MPV 9.5 Absolute Nucleated RBC 0.000 Nucleated RBC % (auto) 0.0 Anion Gap 15 Estim Creat Clear Calc 155.1 Estimated GFR > 60 POC Glucose 96 Random Glucose 96 Calcium 8.2 L D Assessment and Plan (1) Diabetes 1.5, managed as type 1: Status: Acute (2) IBD (inflammatory bowel disease): Status: Acute Plan 60-year-old moderately obese with history of Crohn's disease on Stelara, prednisone, methotrexate, diabetes who presents to the emergency department with shortness of breath found to have hypoxia and COVID-19 positive on 06/15/21. On 06/19/21 he snorted cocaine in his room and developed precipitous hypoxemia requiring urgent intubation from developing? He developed the cocaine lung and cardiac toxicity with combined noncardiogenic as well as cardiogenic pulmonary edema? and he remained intubated for 3 weeks and was extubated on 07/11/21? and respiratory status has been stable on room air and transfered to [facility] on 07/12/21.? Clinically had secondary nosocomial bacterial pneumonia and currently Mayda tropicalis urinary tract infection and some persistent atelectasis bilaterally but he is nontoxic Prolonged debility due to prolonged intubation f Requiring daily physical therapy Still requiring 2 person assist for transfers Chronic/Resolved Acute respiratory failure with hypoxia secondary to COVID-19 pneumonia, cocaine induced noncardiogenic and cardiogenic pulmonary edema that required prolonged intubation initially, resolved. drop in oxygen overnight requiring 3L NC at this time repeat cxr showing b/l airspace dz but reviewed image myself, appears improved from previous. 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 Resolved 4mm partially obstructing stone to distal left ureter without hydronephrosis Started on Flomax afebrile, no leukocytosis consider consult if no resolution HTN BP controlled Continue lisinopril and norvasc Diabetes was on glyburide at home, continue holding. Continue Lantus and SSI Crohn's disease Continue MTX ; will need to follow up for Stelera typically given in [place] have been weaning prednison if any abnormalities of CT scan, will re-consult GI Hypokalemia. Resolved likely r/t diarrhea replace and follow BMP Mood ? Previously on Remeron, Paxil but now on Luvox psych recommends continuing with Luvox for now. Mayda tropicalis UTI seen by ID Diflucan 200 mg daily for 14 d, completed treatment Stage 2 pressure foam dressing DVT prophylaxis -Lovenox Code status -full code Attending:Dr. Hernandez Dispo: acute rehab vs snf vs home with services due to physical debility from prolonged hospital stay. awaiting placement Requires ongoing inpatient hospitalization due to continued 2 person assist requirement for transfers. No rehab bed availability at this time Quality Stroke Does the patient have a stroke diagnosis?: No VTE Prior VTE?: No VTE Risk Level:: Medical - moderate - high VTE Device Contraindication: N/A - Device Ordered VTE Drug Contraindication: N/A - Med Ordered
--- NOTE | 2021-08-15 11:20 | MHC.CM.PN ---
Per PT, Patient continues to make good progress and may be ready for dc to home soon.CM will continue to follow.
[2021-08-15 11:30] LABS: Glucose, Whole Blood 154 mg/dL (60-115)
--- NOTE | 2021-08-15 12:25 | MHC.CLN ---
F/U PO INTAKE CONSISTENTLY 75-100% DIET RX: 2000DM-WILL RE-START 2200DM AND GLUCERNA BID TO INCREASE KCALS AND PROMOTE WOUND HEALING SUPP PROVIDES 474KCALS, 20G PROTEIN WITH 100% ACCEPTANCE MONITOR PO INTAKE CLOSELY GOAL: IMPROVED WOUND HEALING WILL FOLLOW UP X 7 DAYS
[2021-08-15 16:24] LABS: Glucose, Whole Blood 142 mg/dL (60-115)
[2021-08-15 20:16] LABS: Glucose, Whole Blood 167 mg/dL (60-115)
[2021-08-15] MEDS: Tamsulosin HCL 0.4 MG CAPSULE PO (21:01)
[2021-08-16] VITALS (7 sets, daily range): BP systolic 111–133; BP diastolic 72–81; PULSE 75–117; RESP 18–20; TEMP 36.5–37; O2SAT 92–97
[2021-08-16 07:39] LABS: Glucose, Whole Blood 94 mg/dL (60-115)
[2021-08-16] MEDS: oxyCODONE HCl Immed Release 5 MG TABLET PO ×3 (08:54→21:53)
[2021-08-16] MEDS: predniSONE 5 MG TABLET PO (08:54)
[2021-08-16] MEDS: fluvoxaMINE Maleate 50 MG TABLET 100 MG PO ×2 (08:54→21:52)
[2021-08-16] MEDS: Thiamine HCL 100 MG TABLET 200 MG PO ×2 (08:54→21:53)
[2021-08-16] MEDS: 0.9 % Sodium Chloride Flush 3 ML SYRINGE IVFLUSH ×3 (08:55→21:53)
[2021-08-16] MEDS: Ascorbic Acid 500 MG TABLET PO (08:55)
[2021-08-16] MEDS: Enoxaparin Sodium 40 MG/0.4 ML SYRINGE SUBCUT (08:55)
[2021-08-16] MEDS: Ammonium Lactate 12 % Lotion 226 GM BOTTLE 1 APPL TOPICAL ×2 (08:55→21:54)
[2021-08-16 11:01] LABS: Glucose, Whole Blood 225 mg/dL (60-115)
[2021-08-16] MEDS: Insulin Lispro 100 UNIT/ML 3 ML VIAL SUBCUT (11:41)
[2021-08-16 16:03] LABS: Glucose, Whole Blood 123 mg/dL (60-115)
--- NOTE | 2021-08-16 16:55 | HO.PM.IMPN ---
Subjective Subjective Date of Service: 08/16/21 Interval History: seen and examined this morning back pain minimal otherwise no complaints Review of Systems Review of Systems: Yes all other systems are reviewed and are negative Constitutional Constitutional: Denies chills and Denies fever(s) Cardiovascular Cardiovascular: Denies chest pain Respiratory Respiratory: Denies cough Gastrointestinal Gastrointestinal: Denies abdominal pain Physical Exam Vital Signs: Vital Signs: Last Vital Signs Temp 98.2 F 08/16/21 15:10 Pulse 114 H 08/16/21 15:10 Resp 20 08/16/21 15:10 BP 121/76 08/16/21 15:10 Pulse Ox 92 08/16/21 15:10 Oxygen Flow Rate 10 06/15/21 00:21 BMI result Body Mass Index 26.7 Const: General: cooperative, comfortable, no acute distress, alert and awake Nutritional Appearance: average body habitus Orientation/consciousness: patient oriented x3 Eyes: Pupils: Equal, round and reactive pupils present Resp: Effort & Inspection: normal respiratory effort and able to speak in complete sentences Cardio: Rate: regular rate GI: Inspection: No distended Palpation (GI): not soft and nontender Neuro: General: patient oriented x3 Cranial nerves: Yes Equal, round and reactive pupils present Extrem: Other: no leg edema Objective Data Active Medications Acetaminophen (Acetaminophen 325 Mg Tablet) 650 mg OG-TUBE Q6H PRN PRN Reason: Fever Last Admin: 08/14/21 20:52 Dose: 650 mg Documented by: MARLI Amlodipine Besylate (Amlodipine Besylate 5 Mg Tablet) 5 mg PO DAILY [facility]; Protocol Last Admin: 08/09/21 09:12 Dose: 5 mg Documented by: COTCARLOS Ascorbic Acid (Ascorbic Acid 500 Mg Tablet) 500 mg PO DAILY [facility] Last Admin: 08/16/21 08:55 Dose: 500 mg Documented by: MINESH Dextrose (Dextrose 50 % 25 Gm/50 Ml Vial) 25 gm IVPUSH Q15M PRN PRN Reason: per Hypoglycemia Standing Ord. Docusate Sodium (Docusate Sodium 100 Mg Capsule) 100 mg PO BEDTIME [facility] Last Admin: 08/15/21 21:02 Dose: Not Given Documented by: HANDY Non-Admin Reason: Patient Refused Enoxaparin Sodium (Enoxaparin Sodium 40 Mg/0.4 Ml Syringe) 40 mg SUBCUT Q24H [facility] Last Admin: 08/16/21 08:55 Dose: 40 mg Documented by: MINESH Fluvoxamine Maleate (Fluvoxamine Maleate 50 Mg Tablet) 100 mg PO BID [facility] Last Admin: 08/16/21 08:54 Dose: 100 mg Documented by: MINESH Guaifenesin (Guaifenesin 100 Mg/5 Ml Liquid) 5 ml PO Q4H PRN PRN Reason: Cough Insulin Glargine (Insulin Glargine,Hum.Rec.Anlog 100 Unit/Ml 10 Ml Vial) 50 unit SUBCUT BID [facility] Last Admin: 07/17/21 21:06 Dose: Not Given Documented by: QUINN Non-Admin Reason: No Insulin Coverage Insulin Human Lispro (Insulin Lispro 100 Unit/Ml 3 Ml Vial) 0 unit SUBCUT QIDACHS [facility]; Protocol Last Admin: 08/16/21 11:41 Dose: 2 unit Documented by: MINESH Lactic Acid (Ammonium Lactate 12 % Lotion 226 Gm Bottle) 1 appl TOPICAL BID [facility]; Protocol Last Admin: 08/16/21 08:55 Dose: 1 appl Documented by: MINESH Lisinopril (Lisinopril 10 Mg Tablet) 10 mg PO DAILY [facility]; Protocol Last Admin: 08/09/21 09:12 Dose: 10 mg Documented by: COTCARLOS Methotrexate (Methotrexate Sodium 2.5 Mg Tablet) 25 mg PO Tu@1800 [facility] Last Admin: 08/14/21 18:34 Dose: 25 mg Documented by: BOGDAN Omeprazole (Omeprazole 20 Mg/10 Ml Susp.Recon) 40 mg PO DAILY@0630 [facility] Last Admin: 08/16/21 06:04 Dose: 40 mg Documented by: ELIDA Oxycodone HCl (Oxycodone Hcl Immed Release 5 Mg Tablet) 5 mg PO Q4H PRN PRN Reason: pain Last Admin: 08/16/21 15:51 Dose: 5 mg Documented by: ARNOL Polyethylene Glycol (Polyethylene Glycol 3350 17 Gm Powd.Pack) 17 gm PO DAILY [facility] Last Admin: 08/16/21 08:55 Dose: Not Given Documented by: MINESH Non-Admin Reason: Patient Refused Prednisone (Prednisone 5 Mg Tablet) 5 mg PO DAILY [facility] Last Admin: 08/16/21 08:54 Dose: 5 mg Documented by: MINESH Sodium Chloride (0.9 % Sodium Chloride Flush 3 Ml Syringe) 3 ml IVFLUSH QSHIFT [facility] Last Admin: 08/16/21 15:54 Dose: 3 ml Documented by: ARNOL Tamsulosin HCl (Tamsulosin Hcl 0.4 Mg Capsule) 0.4 mg PO BEDTIME [facility] Last Admin: 08/15/21 21:01 Dose: 0.4 mg Documented by: HANDY Thiamine HCl (Thiamine Hcl 100 Mg Tablet) 200 mg PO BID [facility] Last Admin: 08/16/21 08:54 Dose: 200 mg Documented by: MINESH Trazodone HCl (Trazodone Hcl 25 Mg Halftab) 25 mg PO BEDTIME PRN PRN Reason: Insomnia Last Admin: 08/14/21 20:50 Dose: 25 mg Documented by: MARLI Labs CBC & Chem 7: 08/15/21 06:35 08/15/21 06:35 Labs: Laboratory Results - last 24 hr 08/15/21 08/16/21 08/16/21 20:13 07:36 10:50 POC Glucose 167 H 94 225 H 08/16/21 16:00 POC Glucose 123 H Assessment and Plan (1) Back pain: Status: Acute Plan 60-year-old moderately obese with history of Crohn's disease on Stelara, prednisone, methotrexate, diabetes who presents to the emergency department with shortness of breath found to have hypoxia and COVID-19 positive on 06/15/21. On 06/19/21 he snorted cocaine in his room and developed precipitous hypoxemia requiring urgent intubation from developing? He developed the cocaine lung and cardiac toxicity with combined noncardiogenic as well as cardiogenic pulmonary edema? and he remained intubated for 3 weeks and was extubated on 07/11/21? and respiratory status has been stable on room air and transfered to [facility] on 07/12/21.? Clinically had secondary nosocomial bacterial pneumonia and currently Mayda tropicalis urinary tract infection and some persistent atelectasis bilaterally but he is nontoxic Prolonged debility due to prolonged intubation/hospitalization Requiring daily physical therapy Still requiring 2 person assist for transfers Chronic/Resolved Acute respiratory failure with hypoxia secondary to COVID-19 pneumonia, cocaine induced noncardiogenic and cardiogenic pulmonary edema that required prolonged intubation initially, resolved. drop in oxygen overnight requiring 3L NC at this time repeat cxr showing b/l airspace dz but reviewed image myself, appears improved from previous. 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 Resolved 4mm partially obstructing stone to distal left ureter without hydronephrosis Started on Flomax afebrile, no leukocytosis consider consult if no resolution HTN BP controlled Continue lisinopril and norvasc Diabetes was on glyburide at home, continue holding. Continue Lantus and SSI Crohn's disease Continue MTX ; will need to follow up for Stelera typically given in [place] have been weaning prednison if any abnormalities of CT scan, will re-consult GI Hypokalemia. Resolved likely r/t diarrhea replace and follow BMP Mood ? Previously on Remeron, Paxil but now on Luvox psych recommends continuing with Luvox for now. Mayda tropicalis UTI seen by ID Diflucan 200 mg daily for 14 d, completed treatment Stage 2 pressure foam dressing DVT prophylaxis -Lovenox Code status -full code Attending:Dr. Hernandez Dispo: acute rehab vs snf vs home with services due to physical debility from prolonged hospital stay. awaiting placement Requires ongoing inpatient hospitalization due to continued 2 person assist requirement for transfers. No rehab bed availability at this time Quality Stroke Does the patient have a stroke diagnosis?: No VTE Prior VTE?: No VTE Risk Level:: Medical - moderate - high VTE Device Contraindication: N/A - Device Ordered VTE Drug Contraindication: N/A - Med Ordered
[2021-08-16 20:37] LABS: Glucose, Whole Blood 140 mg/dL (60-115)
[2021-08-16] MEDS: Tamsulosin HCL 0.4 MG CAPSULE PO (21:53)
[2021-08-17 03:33] VITALS: BP 118/72; PULSE 77; RESP 18; TEMP 36.4; O2SAT 96
[2021-08-17] MEDS: oxyCODONE HCl Immed Release 5 MG TABLET PO ×2 (06:30→16:37)
[2021-08-17 07:26] LABS: Glucose, Whole Blood 107 mg/dL (60-115)
[2021-08-17] MEDS: Ammonium Lactate 12 % Lotion 226 GM BOTTLE 1 APPL TOPICAL ×2 (07:47→21:05)
[2021-08-17] MEDS: Enoxaparin Sodium 40 MG/0.4 ML SYRINGE SUBCUT (07:48)
[2021-08-17] MEDS: Thiamine HCL 100 MG TABLET 200 MG PO ×2 (07:50→21:03)
[2021-08-17] MEDS: predniSONE 5 MG TABLET PO (07:50)
[2021-08-17] MEDS: Ascorbic Acid 500 MG TABLET PO (07:51)
[2021-08-17] MEDS: fluvoxaMINE Maleate 50 MG TABLET 100 MG PO ×2 (07:51→21:04)
[2021-08-17] MEDS: 0.9 % Sodium Chloride Flush 3 ML SYRINGE IVFLUSH ×3 (07:53→21:04)
[2021-08-17 08:00] VITALS: BP 169/115; PULSE 102; RESP 16; TEMP 36.8; O2SAT 94
[2021-08-17 10:59] VITALS: O2SAT 94
[2021-08-17 11:30] LABS: Glucose, Whole Blood 185 mg/dL (60-115)
[2021-08-17 11:39] VITALS: BP 129/84; PULSE 111; RESP 16; TEMP 36.8; O2SAT 95
[2021-08-17 15:48] VITALS: BP 123/84; PULSE 111; RESP 18; TEMP 36.8; O2SAT 95
[2021-08-17 16:14] LABS: Glucose, Whole Blood 188 mg/dL (60-115)
--- NOTE | 2021-08-17 17:27 | HO.PM.IMPN ---
Subjective Subjective Date of Service: 08/17/21 Interval History: seen and examined this morning feeling well still unable to get up from seated position without 2 assist Review of Systems Review of Systems: Yes all other systems are reviewed and are negative Constitutional Constitutional: Denies chills and Denies fever(s) Cardiovascular Cardiovascular: Denies chest pain and Denies dyspnea Respiratory Respiratory: Denies cough and Denies dyspnea Gastrointestinal Gastrointestinal: Denies nausea and Denies vomiting Physical Exam Vital Signs: Vital Signs: Last Vital Signs Temp 98.3 F 08/17/21 15:48 Pulse 111 H 08/17/21 15:48 Resp 18 08/17/21 15:48 BP 123/84 08/17/21 15:48 Pulse Ox 95 08/17/21 15:48 Oxygen Flow Rate 10 06/15/21 00:21 BMI result Body Mass Index 26.7 Const: General: cooperative, comfortable, no acute distress, alert and awake Nutritional Appearance: average body habitus and well nourished Orientation/consciousness: patient oriented x3 HENMT: Head: Yes normocephalic and Yes atraumatic Eyes: Sclerae: sclerae normal Pupils: Equal, round and reactive pupils present Resp: Effort & Inspection: normal respiratory effort and able to speak in complete sentences Cardio: Rate: regular rate Rhythm: regular rhythm Heart sounds: S1 normal heart sound present and S2 normal heart sound present GI: Other: soft, non-distended, no guarding; pain on palpation primarily lower quadrants Inspection: No distended Palpation (GI): not soft, not firm, nontender and no guarding Neuro: General: patient oriented x3 Cranial nerves: Yes CN's II-XII intact bilaterally, Yes Equal, round and reactive pupils present and Yes Bilaterally intact EOM present Extrem: Other: no leg edema Objective Data Active Medications Acetaminophen (Acetaminophen 325 Mg Tablet) 650 mg OG-TUBE Q6H PRN PRN Reason: Fever Last Admin: 08/14/21 20:52 Dose: 650 mg Documented by: MARLI Amlodipine Besylate (Amlodipine Besylate 5 Mg Tablet) 5 mg PO DAILY [facility]; Protocol Last Admin: 08/09/21 09:12 Dose: 5 mg Documented by: COTCARLOS Ascorbic Acid (Ascorbic Acid 500 Mg Tablet) 500 mg PO DAILY [facility] Last Admin: 08/17/21 07:51 Dose: 500 mg Documented by: ARNOL Dextrose (Dextrose 50 % 25 Gm/50 Ml Vial) 25 gm IVPUSH Q15M PRN PRN Reason: per Hypoglycemia Standing Ord. Docusate Sodium (Docusate Sodium 100 Mg Capsule) 100 mg PO BEDTIME [facility] Last Admin: 08/16/21 21:21 Dose: Not Given Documented by: ELEANOR Non-Admin Reason: Patient Refused Enoxaparin Sodium (Enoxaparin Sodium 40 Mg/0.4 Ml Syringe) 40 mg SUBCUT Q24H [facility] Last Admin: 08/17/21 07:48 Dose: 40 mg Documented by: ARNOL Fluvoxamine Maleate (Fluvoxamine Maleate 50 Mg Tablet) 100 mg PO BID [facility] Last Admin: 08/17/21 07:51 Dose: 100 mg Documented by: ARNOL Guaifenesin (Guaifenesin 100 Mg/5 Ml Liquid) 5 ml PO Q4H PRN PRN Reason: Cough Insulin Glargine (Insulin Glargine,Hum.Rec.Anlog 100 Unit/Ml 10 Ml Vial) 50 unit SUBCUT BID [facility] Last Admin: 07/17/21 21:06 Dose: Not Given Documented by: QUINN Non-Admin Reason: No Insulin Coverage Insulin Human Lispro (Insulin Lispro 100 Unit/Ml 3 Ml Vial) 0 unit SUBCUT QIDACHS [facility]; Protocol Last Admin: 08/17/21 16:21 Dose: Not Given Documented by: ARNOL Non-Admin Reason: No Insulin Coverage Lactic Acid (Ammonium Lactate 12 % Lotion 226 Gm Bottle) 1 appl TOPICAL BID [facility]; Protocol Last Admin: 08/17/21 07:47 Dose: 1 appl Documented by: ARNOL Lisinopril (Lisinopril 10 Mg Tablet) 10 mg PO DAILY [facility]; Protocol Last Admin: 08/09/21 09:12 Dose: 10 mg Documented by: COTEMA Methotrexate (Methotrexate Sodium 2.5 Mg Tablet) 25 mg PO Tu@1800 [facility] Last Admin: 08/14/21 18:34 Dose: 25 mg Documented by: BOGDAN Omeprazole (Omeprazole 20 Mg/10 Ml Susp.Recon) 40 mg PO DAILY@0630 [facility] Last Admin: 08/17/21 06:30 Dose: 40 mg Documented by: EELANOR Oxycodone HCl (Oxycodone Hcl Immed Release 5 Mg Tablet) 5 mg PO Q6H PRN PRN Reason: Pain, Severe (Pain Scale 7-10) Last Admin: 08/17/21 16:37 Dose: 5 mg Documented by: ARNOL Polyethylene Glycol (Polyethylene Glycol 3350 17 Gm Powd.Pack) 17 gm PO DAILY [facility] Last Admin: 08/17/21 07:50 Dose: Not Given Documented by: ARNOL Non-Admin Reason: Patient Refused Prednisone (Prednisone 5 Mg Tablet) 5 mg PO DAILY [facility] Last Admin: 08/17/21 07:50 Dose: 5 mg Documented by: ARNOL Sodium Chloride (0.9 % Sodium Chloride Flush 3 Ml Syringe) 3 ml IVFLUSH QSHIFT [facility] Last Admin: 08/17/21 16:32 Dose: 3 ml Documented by: ARNOL Tamsulosin HCl (Tamsulosin Hcl 0.4 Mg Capsule) 0.4 mg PO BEDTIME [facility] Last Admin: 08/16/21 21:53 Dose: 0.4 mg Documented by: PITOOIC Thiamine HCl (Thiamine Hcl 100 Mg Tablet) 200 mg PO BID [facility] Last Admin: 08/17/21 07:50 Dose: 200 mg Documented by: ARNOL Trazodone HCl (Trazodone Hcl 25 Mg Halftab) 25 mg PO BEDTIME PRN PRN Reason: Insomnia Last Admin: 08/14/21 20:50 Dose: 25 mg Documented by: MARLI Labs CBC & Chem 7: 08/15/21 06:35 08/15/21 06:35 Labs: Laboratory Results - last 24 hr 08/16/21 08/17/21 08/17/21 20:32 07:17 11:24 POC Glucose 140 H 107 185 H 08/17/21 15:53 POC Glucose 188 H Assessment and Plan (1) Back pain: Status: Acute Plan 60-year-old moderately obese with history of Crohn's disease on Stelara, prednisone, methotrexate, diabetes who presents to the emergency department with shortness of breath found to have hypoxia and COVID-19 positive on 06/15/21. On 06/19/21 he snorted cocaine in his room and developed precipitous hypoxemia requiring urgent intubation from developing? He developed the cocaine lung and cardiac toxicity with combined noncardiogenic as well as cardiogenic pulmonary edema? and he remained intubated for 3 weeks and was extubated on 07/11/21? and respiratory status has been stable on room air and transfered to [facility] on 07/12/21.? Clinically had secondary nosocomial bacterial pneumonia and currently Mayda tropicalis urinary tract infection and some persistent atelectasis bilaterally but he is nontoxic Debility due to prolonged intubation/hospitalization Requiring daily physical therapy Still requiring 2 person assist for transfers Chronic/Resolved Acute respiratory failure with hypoxia secondary to COVID-19 pneumonia, cocaine induced noncardiogenic and cardiogenic pulmonary edema that required prolonged intubation initially, resolved. drop in oxygen overnight requiring 3L NC at this time repeat cxr showing b/l airspace dz but reviewed image myself, appears improved from previous. 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 Resolved 4mm partially obstructing stone to distal left ureter without hydronephrosis Started on Flomax afebrile, no leukocytosis consider consult if no resolution HTN BP controlled Continue lisinopril and norvasc Diabetes was on glyburide at home, continue holding. Continue Lantus and SSI Crohn's disease Continue MTX ; will need to follow up for Stelera typically given in [place] have been weaning prednison if any abnormalities of CT scan, will re-consult GI Hypokalemia. Resolved likely r/t diarrhea replace and follow BMP Mood ? Previously on Remeron, Paxil but now on Luvox psych recommends continuing with Luvox for now. Mayda tropicalis UTI seen by ID Diflucan 200 mg daily for 14 d, completed treatment Stage 2 pressure foam dressing DVT prophylaxis -Lovenox Code status -full code Attending:Dr. Hernandez Dispo: acute rehab vs snf vs home with services due to physical debility from prolonged hospital stay. awaiting placement Requires ongoing inpatient hospitalization due to continued 2 person assist requirement for transfers. No rehab bed availability at this time Quality Stroke Does the patient have a stroke diagnosis?: No VTE Prior VTE?: No VTE Risk Level:: Medical - moderate - high VTE Device Contraindication: N/A - Device Ordered VTE Drug Contraindication: N/A - Med Ordered
[2021-08-17 20:00] VITALS: BP 144/84; PULSE 94; RESP 18; TEMP 37; O2SAT 96
[2021-08-17 20:50] LABS: Glucose, Whole Blood 141 mg/dL (60-115)
[2021-08-17] MEDS: Tamsulosin HCL 0.4 MG CAPSULE PO (21:03)
[2021-08-17] MEDS: Docusate Sodium 100 MG CAPSULE PO (21:03)
[2021-08-18] VITALS (7 sets, daily range): BP systolic 108–135; BP diastolic 58–79; PULSE 75–110; RESP 18–20; TEMP 36.5–37.1; O2SAT 93–98
[2021-08-18] MEDS: oxyCODONE HCl Immed Release 5 MG TABLET PO ×4 (00:47→20:59)
[2021-08-18 07:51] LABS: Glucose, Whole Blood 98 mg/dL (60-115)
[2021-08-18] MEDS: 0.9 % Sodium Chloride Flush 3 ML SYRINGE IVFLUSH ×3 (07:52→23:52)
[2021-08-18] MEDS: predniSONE 5 MG TABLET PO (09:22)
[2021-08-18] MEDS: Thiamine HCL 100 MG TABLET 200 MG PO ×2 (09:22→20:06)
[2021-08-18] MEDS: Ascorbic Acid 500 MG TABLET PO (09:23)
[2021-08-18] MEDS: Enoxaparin Sodium 40 MG/0.4 ML SYRINGE SUBCUT (09:23)
[2021-08-18] MEDS: Ammonium Lactate 12 % Lotion 226 GM BOTTLE 1 APPL TOPICAL ×2 (09:23→20:06)
[2021-08-18] MEDS: fluvoxaMINE Maleate 50 MG TABLET 100 MG PO ×2 (09:23→20:05)
[2021-08-18 11:48] LABS: Glucose, Whole Blood 138 mg/dL (60-115)
--- NOTE | 2021-08-18 14:31 | HO.PM.IMPN ---
Subjective Subjective Date of Service: 08/18/21 Interval History: Seen and examined this morning No complaints Reports that he is almost able to stand up on his own from the commode Review of Systems Review of Systems: Yes all other systems are reviewed and are negative Constitutional Constitutional: Denies chills and Denies fever(s) Cardiovascular Cardiovascular: Denies chest pain and Denies dyspnea Respiratory Respiratory: Denies dyspnea Gastrointestinal Gastrointestinal: Denies abdominal pain Physical Exam Vital Signs: Vital Signs: Last Vital Signs Temp 98.1 F 08/18/21 11:41 Pulse 110 H 08/18/21 11:41 Resp 20 08/18/21 11:41 BP 108/74 08/18/21 11:41 Pulse Ox 96 08/18/21 11:41 Oxygen Flow Rate 10 06/15/21 00:21 BMI result Body Mass Index 26.7 Const: General: cooperative, comfortable, no acute distress, alert, awake and Physically active Nutritional Appearance: average body habitus and well nourished Orientation/consciousness: patient oriented x3 HENMT: Head: Yes normocephalic and Yes atraumatic Eyes: Sclerae: sclerae normal Pupils: Equal, round and reactive pupils present Resp: Effort & Inspection: normal respiratory effort and able to speak in complete sentences Cardio: Rate: regular rate and tachycardic Rhythm: regular rhythm Heart sounds: S1 normal heart sound present and S2 normal heart sound present GI: Inspection: No distended Palpation (GI): not soft, not firm, nontender and no guarding Neuro: General: patient oriented x3 Cranial nerves: Yes CN's II-XII intact bilaterally, Yes Equal, round and reactive pupils present and Yes Bilaterally intact EOM present Extrem: Other: no leg edema Objective Data Active Medications Acetaminophen (Acetaminophen 325 Mg Tablet) 650 mg OG-TUBE Q6H PRN PRN Reason: Fever Last Admin: 08/14/21 20:52 Dose: 650 mg Documented by: MARLI Amlodipine Besylate (Amlodipine Besylate 5 Mg Tablet) 5 mg PO DAILY [facility]; Protocol Last Admin: 08/09/21 09:12 Dose: 5 mg Documented by: COTCARLOS Ascorbic Acid (Ascorbic Acid 500 Mg Tablet) 500 mg PO DAILY [facility] Last Admin: 08/18/21 09:23 Dose: 500 mg Documented by: SANTOSH Dextrose (Dextrose 50 % 25 Gm/50 Ml Vial) 25 gm IVPUSH Q15M PRN PRN Reason: per Hypoglycemia Standing Ord. Docusate Sodium (Docusate Sodium 100 Mg Capsule) 100 mg PO BEDTIME [facility] Last Admin: 08/17/21 21:03 Dose: 100 mg Documented by: YAMILEX Enoxaparin Sodium (Enoxaparin Sodium 40 Mg/0.4 Ml Syringe) 40 mg SUBCUT Q24H [facility] Last Admin: 08/18/21 09:23 Dose: 40 mg Documented by: SANTOSH Fluvoxamine Maleate (Fluvoxamine Maleate 50 Mg Tablet) 100 mg PO BID [facility] Last Admin: 08/18/21 09:23 Dose: 100 mg Documented by: SANTOSH Guaifenesin (Guaifenesin 100 Mg/5 Ml Liquid) 5 ml PO Q4H PRN PRN Reason: Cough Insulin Glargine (Insulin Glargine,Hum.Rec.Anlog 100 Unit/Ml 10 Ml Vial) 50 unit SUBCUT BID [facility] Last Admin: 07/17/21 21:06 Dose: Not Given Documented by: QUINN Non-Admin Reason: No Insulin Coverage Insulin Human Lispro (Insulin Lispro 100 Unit/Ml 3 Ml Vial) 0 unit SUBCUT QIDACHS [facility]; Protocol Last Admin: 08/18/21 11:57 Dose: Not Given Documented by: SANTOSH Non-Admin Reason: No Insulin Coverage Lactic Acid (Ammonium Lactate 12 % Lotion 226 Gm Bottle) 1 appl TOPICAL BID [facility]; Protocol Last Admin: 08/18/21 09:23 Dose: 1 appl Documented by: SANTOSH Lisinopril (Lisinopril 10 Mg Tablet) 10 mg PO DAILY [facility]; Protocol Last Admin: 08/09/21 09:12 Dose: 10 mg Documented by: COTEMA Methotrexate (Methotrexate Sodium 2.5 Mg Tablet) 25 mg PO Tu@1800 [facility] Last Admin: 08/14/21 18:34 Dose: 25 mg Documented by: BOGDAN Omeprazole (Omeprazole 20 Mg/10 Ml Susp.Recon) 40 mg PO DAILY@0630 [facility] Last Admin: 08/18/21 05:59 Dose: 40 mg Documented by: YAMILEX Oxycodone HCl (Oxycodone Hcl Immed Release 5 Mg Tablet) 5 mg PO Q6H PRN PRN Reason: Pain, Severe (Pain Scale 7-10) Last Admin: 08/18/21 07:52 Dose: 5 mg Documented by: SANTOSH Polyethylene Glycol (Polyethylene Glycol 3350 17 Gm Powd.Pack) 17 gm PO DAILY [facility] Last Admin: 08/18/21 09:24 Dose: Not Given Documented by: SANTOSH Non-Admin Reason: Patient Refused Prednisone (Prednisone 5 Mg Tablet) 5 mg PO DAILY [facility] Last Admin: 08/18/21 09:22 Dose: 5 mg Documented by: SANTOSH Sodium Chloride (0.9 % Sodium Chloride Flush 3 Ml Syringe) 3 ml IVFLUSH QSHIFT [facility] Last Admin: 08/18/21 07:52 Dose: 3 ml Documented by: SANTOSH Tamsulosin HCl (Tamsulosin Hcl 0.4 Mg Capsule) 0.4 mg PO BEDTIME [facility] Last Admin: 08/17/21 21:03 Dose: 0.4 mg Documented by: YAMILEX Thiamine HCl (Thiamine Hcl 100 Mg Tablet) 200 mg PO BID [facility] Last Admin: 08/18/21 09:22 Dose: 200 mg Documented by: SANTOSH Trazodone HCl (Trazodone Hcl 25 Mg Halftab) 25 mg PO BEDTIME PRN PRN Reason: Insomnia Last Admin: 08/14/21 20:50 Dose: 25 mg Documented by: MARLI Labs CBC & Chem 7: 08/15/21 06:35 08/15/21 06:35 Labs: Laboratory Results - last 24 hr 08/17/21 08/17/21 08/18/21 15:53 20:46 07:42 POC Glucose 188 H 141 H 98 08/18/21 11:44 POC Glucose 138 H Assessment and Plan (1) Back pain: Status: Acute Plan 60-year-old moderately obese with history of Crohn's disease on Stelara, prednisone, methotrexate, diabetes who presents to the emergency department with shortness of breath found to have hypoxia and COVID-19 positive on 06/15/21. On 06/19/21 he snorted cocaine in his room and developed precipitous hypoxemia requiring urgent intubation from developing? He developed the cocaine lung and cardiac toxicity with combined noncardiogenic as well as cardiogenic pulmonary edema? and he remained intubated for 3 weeks and was extubated on 07/11/21? and respiratory status has been stable on room air and transfered to [facility] on 07/12/21.? Clinically had secondary nosocomial bacterial pneumonia and currently Mayda tropicalis urinary tract infection and some persistent atelectasis bilaterally but he is nontoxic Debility due to prolonged intubation/hospitalization Requiring daily physical therapy Still requiring 2 person assist for transfers Chronic/Resolved Acute respiratory failure with hypoxia secondary to COVID-19 pneumonia, cocaine induced noncardiogenic and cardiogenic pulmonary edema that required prolonged intubation initially, resolved. drop in oxygen overnight requiring 3L NC at this time repeat cxr showing b/l airspace dz but reviewed image myself, appears improved from previous. 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 Resolved 4mm partially obstructing stone to distal left ureter without hydronephrosis Started on Flomax afebrile, no leukocytosis consider consult if no resolution HTN BP controlled Continue lisinopril and norvasc Diabetes was on glyburide at home, continue holding. Continue Lantus and SSI Crohn's disease Continue MTX ; will need to follow up for Stelera typically given in [place] have been weaning prednisone Hypokalemia. Resolved likely r/t diarrhea replace and follow BMP Mood ? Previously on Remeron, Paxil but now on Luvox psych recommends continuing with Luvox for now. Mayda tropicalis UTI seen by ID Diflucan 200 mg daily for 14 d, completed treatment Stage 2 pressure foam dressing DVT prophylaxis -Lovenox Code status -full code Attending:Dr. Hernandez Dispo: acute rehab vs snf vs home with services due to physical debility from prolonged hospital stay. awaiting placement Requires ongoing inpatient hospitalization due to continued 2 person assist requirement for transfers. No rehab bed availability at this time Quality Stroke Does the patient have a stroke diagnosis?: No VTE Prior VTE?: No VTE Risk Level:: Medical - moderate - high VTE Device Contraindication: N/A - Device Ordered VTE Drug Contraindication: N/A - Med Ordered
[2021-08-18] MEDS: Morphine Sulfate 2 MG/ML CARTRIDGE IVPUSH (15:20)
[2021-08-18 16:08] LABS: Glucose, Whole Blood 176 mg/dL (60-115)
[2021-08-18] MEDS: Tamsulosin HCL 0.4 MG CAPSULE PO (20:06)
[2021-08-18 20:15] LABS: Glucose, Whole Blood 116 mg/dL (60-115)
[2021-08-18] MEDS: traZODone HCL 25 MG HALFTAB PO (20:59)
[2021-08-19 04:00] VITALS: BP 127/92; PULSE 90; RESP 18; TEMP 35.8; O2SAT 92
[2021-08-19 07:24] LABS: Glucose, Whole Blood 118 mg/dL (60-115)
[2021-08-19 07:51] VITALS: BP 121/72; PULSE 96; RESP 20; TEMP 36.2; O2SAT 96
[2021-08-19] MEDS: Thiamine HCL 100 MG TABLET 200 MG PO ×2 (08:38→20:23)
[2021-08-19] MEDS: Ascorbic Acid 500 MG TABLET PO (08:38)
[2021-08-19] MEDS: fluvoxaMINE Maleate 50 MG TABLET 100 MG PO ×2 (08:38→20:23)
[2021-08-19] MEDS: Enoxaparin Sodium 40 MG/0.4 ML SYRINGE SUBCUT (08:38)
[2021-08-19] MEDS: oxyCODONE HCl Immed Release 5 MG TABLET PO ×3 (08:42→20:23)
[2021-08-19] MEDS: 0.9 % Sodium Chloride Flush 3 ML SYRINGE IVFLUSH ×2 (08:43→18:31)
[2021-08-19] MEDS: Ammonium Lactate 12 % Lotion 226 GM BOTTLE 1 APPL TOPICAL ×2 (08:43→20:24)
[2021-08-19 11:16] LABS: Glucose, Whole Blood 141 mg/dL (60-115)
[2021-08-19 11:57] VITALS: BP 116/72; PULSE 109; RESP 20; TEMP 36.7; O2SAT 96
--- NOTE | 2021-08-19 13:11 | P.PNIM_ITS ---
Subjective Subjective Date of Service: 08/19/21 <SULLY Edwards - Last Filed: 08/19/21 13:15> 08/19/21 <Chaitanya Kessler DO - Last Filed: 08/19/21 15:40> Interval History: seen and examined this morning feeling good, had some back pain yesterday but better now still working to stand from seated position no overnight events, no complaints <SULLY Edwards - Last Filed: 08/19/21 13:15> Review of Systems Review of Systems: Yes all other systems are reviewed and are negative <SULLY Edwards - Last Filed: 08/19/21 13:15> Constitutional Constitutional: Denies chills and Denies fever(s) <SULLY Edwards - Last Filed: 08/19/21 13:15> Cardiovascular Cardiovascular: Denies chest pain, Denies palpitations and Denies dyspnea <SULLY Edwards - Last Filed: 08/19/21 13:15> Respiratory Respiratory: Denies cough and Denies dyspnea <SULLY Edwards - Last Filed: 08/19/21 13:15> Gastrointestinal Gastrointestinal: Denies abdominal pain <SULLY Edwards - Last Filed: 08/19/21 13:15> Endocrine Endocrine: Denies palpitations <SULLY Edwards - Last Filed: 08/19/21 13:15> Physical Exam Vital Signs: Vital Signs: Last Vital Signs Temp 98.1 F 08/19/21 11:57 Pulse 109 H 08/19/21 11:57 Resp 20 08/19/21 11:57 BP 116/72 08/19/21 11:57 Pulse Ox 96 08/19/21 11:57 Oxygen Flow Rate 10 06/15/21 00:21 BMI result Body Mass Index 26.7 <SULLY Edwards - Last Filed: 08/19/21 13:15> Const: General: cooperative, comfortable, no acute distress, alert, awake and Physically active <SULLY Edwards - Last Filed: 08/19/21 13:15> Nutritional Appearance: average body habitus and well nourished <SULLY Edwards - Last Filed: 08/19/21 13:15> Orientation/consciousness: patient oriented x3 <SULLY Edwards - Last Filed: 08/19/21 13:15> HENMT: Head: Yes normocephalic and Yes atraumatic <SULLY Edwards - Last Filed: 08/19/21 13:15> Eyes: Sclerae: sclerae normal <SULLY Edwards - Last Filed: 08/19/21 13:15> Pupils: Equal, round and reactive pupils present <SULLY Edwards - Last Filed: 08/19/21 13:15> Resp: Effort & Inspection: normal respiratory effort and able to speak in complete sentences <SULLY Edwards - Last Filed: 08/19/21 13:15> Cardio: Rate: regular rate <SULLY Edwards - Last Filed: 08/19/21 13:15> Rhythm: regular rhythm <SULLY Edwards - Last Filed: 08/19/21 13:15> Heart sounds: S1 normal heart sound present and S2 normal heart sound present <SULLY Edwards - Last Filed: 08/19/21 13:15> GI: Other: soft, non-distended, no guarding; pain on palpation primarily lower quadrants <SULLY Edwards - Last Filed: 08/19/21 13:15> Inspection: No distended <SULLY Edwards - Last Filed: 08/19/21 13:15> Palpation (GI): not firm, nontender and no guarding <SULLY Edwards - Last Filed: 08/19/21 13:15> Neuro: General: patient oriented x3 <SULLY Edwards - Last Filed: 08/19/21 13:15> Cranial nerves: Yes CN's II-XII intact bilaterally, Yes Equal, round and reactive pupils present and Yes Bilaterally intact EOM present <SULLY Edwards - Last Filed: 08/19/21 13:15> Extrem: Other: no leg edema <SULLY Edwards - Last Filed: 08/19/21 13:15> Objective Data Active Medications Acetaminophen (Acetaminophen 325 Mg Tablet) 650 mg OG-TUBE Q6H PRN PRN Reason: Fever Last Admin: 08/14/21 20:52 Dose: 650 mg Documented by: MARLI Amlodipine Besylate (Amlodipine Besylate 5 Mg Tablet) 5 mg PO DAILY [facility]; Protocol Last Admin: 08/09/21 09:12 Dose: 5 mg Documented by: COTEMA Ascorbic Acid (Ascorbic Acid 500 Mg Tablet) 500 mg PO DAILY [facility] Last Admin: 08/19/21 08:38 Dose: 500 mg Documented by: BENJA Dextrose (Dextrose 50 % 25 Gm/50 Ml Vial) 25 gm IVPUSH Q15M PRN PRN Reason: per Hypoglycemia Standing Ord. Docusate Sodium (Docusate Sodium 100 Mg Capsule) 100 mg PO BEDTIME [facility] Last Admin: 08/18/21 20:06 Dose: Not Given Documented by: HANDY Non-Admin Reason: Patient Refused Enoxaparin Sodium (Enoxaparin Sodium 40 Mg/0.4 Ml Syringe) 40 mg SUBCUT Q24H [facility] Last Admin: 08/19/21 08:38 Dose: 40 mg Documented by: BENJA Fluvoxamine Maleate (Fluvoxamine Maleate 50 Mg Tablet) 100 mg PO BID [facility] Last Admin: 08/19/21 08:38 Dose: 100 mg Documented by: BENJA Guaifenesin (Guaifenesin 100 Mg/5 Ml Liquid) 5 ml PO Q4H PRN PRN Reason: Cough Insulin Glargine (Insulin Glargine,Hum.Rec.Anlog 100 Unit/Ml 10 Ml Vial) 50 unit SUBCUT BID [facility] Last Admin: 07/17/21 21:06 Dose: Not Given Documented by: QUINN Non-Admin Reason: No Insulin Coverage Insulin Human Lispro (Insulin Lispro 100 Unit/Ml 3 Ml Vial) 0 unit SUBCUT QIDACHS [facility]; Protocol Last Admin: 08/19/21 11:12 Dose: Not Given Documented by: BENJA Non-Admin Reason: No Insulin Coverage Lactic Acid (Ammonium Lactate 12 % Lotion 226 Gm Bottle) 1 appl TOPICAL BID [facility]; Protocol Last Admin: 08/19/21 08:43 Dose: 1 appl Documented by: BENJA Lisinopril (Lisinopril 10 Mg Tablet) 10 mg PO DAILY [facility]; Protocol Last Admin: 08/09/21 09:12 Dose: 10 mg Documented by: COTEMA Methotrexate (Methotrexate Sodium 2.5 Mg Tablet) 25 mg PO Tu@1800 [facility] Last Admin: 08/14/21 18:34 Dose: 25 mg Documented by: BOGDAN Omeprazole (Omeprazole 20 Mg/10 Ml Susp.Recon) 40 mg PO DAILY@0630 [facility] Last Admin: 08/19/21 06:40 Dose: 40 mg Documented by: FERDINAND Oxycodone HCl (Oxycodone Hcl Immed Release 5 Mg Tablet) 5 mg PO Q6H PRN PRN Reason: Pain, Severe (Pain Scale 7-10) Last Admin: 08/19/21 08:42 Dose: 5 mg Documented by: BENJA Polyethylene Glycol (Polyethylene Glycol 3350 17 Gm Powd.Pack) 17 gm PO DAILY [facility] Last Admin: 08/19/21 08:44 Dose: Not Given Documented by: BENJA Non-Admin Reason: Patient Refused Sodium Chloride (0.9 % Sodium Chloride Flush 3 Ml Syringe) [facility] Last Admin: 08/19/21 08:43 Dose: 3 ml Documented by: BENJA Tamsulosin HCl (Tamsulosin Hcl 0.4 Mg Capsule) 0.4 mg PO BEDTIME [facility] Last Admin: 08/18/21 20:06 Dose: 0.4 mg Documented by: HANDY Thiamine HCl (Thiamine Hcl 100 Mg Tablet) 200 mg PO BID [facility] Last Admin: 08/19/21 08:38 Dose: 200 mg Documented by: BENJA Trazodone HCl (Trazodone Hcl 25 Mg Halftab) 25 mg PO BEDTIME PRN PRN Reason: Insomnia Last Admin: 08/18/21 20:59 Dose: 25 mg Documented by: HANDY <SULLY Edwards - Last Filed: 08/19/21 13:15> Labs CBC & Chem 7: : 08/15/21 06:35 08/15/21 06:35 <SULLY Edwards - Last Filed: 08/19/21 13:15> Labs: Laboratory Results - last 24 hr 08/18/21 08/18/21 08/19/21 15:55 20:05 07:20 POC Glucose 176 H 116 H 118 H 08/19/21 11:10 POC Glucose 141 H <SULLY Edwards - Last Filed: 08/19/21 13:15> Assessment and Plan (1) Back pain: Status: Acute <SULLY Edwards - Last Filed: 08/19/21 13:15> Plan 60-year-old moderately obese with history of Crohn's disease on Stelara, prednisone, methotrexate, diabetes who presents to the emergency department with shortness of breath found to have hypoxia and COVID-19 positive on 06/15/21. On 06/19/21 he snorted cocaine in his room and developed precipitous hypoxemia requiring urgent intubation from developing? He developed the cocaine lung and cardiac toxicity with combined noncardiogenic as well as cardiogenic pulmonary edema? and he remained intubated for 3 weeks and was extubated on 07/11/21? and respiratory status has been stable on room air and transfered to [facility] on 07/12/21.? Clinically had secondary nosocomial bacterial pneumonia and currently Mayda tropicalis urinary tract infection and some persistent atelectasis bilaterally but he is nontoxic Debility due to prolonged intubation/hospitalization Requiring daily physical therapy Still requiring 2 person assist for transfers Chronic/Resolved Acute respiratory failure with hypoxia secondary to COVID-19 pneumonia, cocaine induced noncardiogenic and cardiogenic pulmonary edema that required prolonged intubation initially, resolved. drop in oxygen overnight requiring 3L NC at this time repeat cxr showing b/l airspace dz but reviewed image myself, appears improved from previous. 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 Resolved 4mm partially obstructing stone to distal left ureter without hydronephrosis Started on Flomax afebrile, no leukocytosis consider consult if no resolution HTN BP controlled Continue lisinopril and norvasc Diabetes was on glyburide at home, continue holding. Continue Lantus and SSI Crohn's disease Continue MTX ; will need to follow up for Stelera typically given in [place] have been weaning prednisone down to 5mg, d/c 08/18 Hypokalemia. Resolved likely r/t diarrhea replace and follow BMP Mood ? Previously on Remeron, Paxil but now on Luvox psych recommends continuing with Luvox for now. Mayda tropicalis UTI seen by ID Diflucan 200 mg daily for 14 d, completed treatment Stage 2 pressure foam dressing DVT prophylaxis -Lovenox Code status -full code Attending:Dr. Hernandez Dispo: acute rehab vs snf vs home with services due to physical debility from prolonged hospital stay. awaiting placement Requires ongoing inpatient hospitalization due to continued 2 person assist requirement for transfers. No rehab bed availability at this time <SULLY Edwards - Last Filed: 08/19/21 13:15> 60-year-old moderately obese with history of Crohn's disease on Stelara, prednisone, methotrexate, diabetes who presents to the emergency department with shortness of breath found to have hypoxia and COVID-19 positive on 06/15/21. On 06/19/21 he snorted cocaine in his room and developed precipitous hypoxemia requiring urgent intubation from developing? He developed the cocaine lung and cardiac toxicity with combined noncardiogenic as well as cardiogenic pulmonary edema? and he remained intubated for 3 weeks and was extubated on 07/11/21? and respiratory status has been stable on room air and transfered to [facility] on 07/12/21.? Clinically had secondary nosocomial bacterial pneumonia and currently Mayda tropicalis urinary tract infection and some persistent atelectasis bilaterally but he is nontoxic Debility due to prolonged intubation/hospitalization Requiring daily physical therapy Still requiring 2 person assist for transfers Chronic/Resolved Acute respiratory failure with hypoxia secondary to COVID-19 pneumonia, cocaine induced noncardiogenic and cardiogenic pulmonary edema that required prolonged intubation initially, resolved. drop in oxygen overnight requiring 3L NC at this time repeat cxr showing b/l airspace dz but reviewed image myself, appears improved from previous. 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 Resolved 4mm partially obstructing stone to distal left ureter without hydronephrosis Started on Flomax afebrile, no leukocytosis consider consult if no resolution HTN BP controlled Continue lisinopril and norvasc Diabetes was on glyburide at home, continue holding. Continue Lantus and SSI Crohn's disease Continue MTX ; will need to follow up for Stelera typically given in [place] have been weaning prednisone down to 5mg, d/c 08/18 Hypokalemia. Resolved likely r/t diarrhea replace and follow BMP Mood ? Previously on Remeron, Paxil but now on Luvox psych recommends continuing with Luvox for now. Mayda tropicalis UTI seen by ID Diflucan 200 mg daily for 14 d, completed treatment Stage 2 pressure foam dressing DVT prophylaxis -Lovenox Code status -full code Attending:Dr. Hernandez Dispo: acute rehab vs snf vs home with services due to physical debility from prolonged hospital stay. awaiting placement Requires ongoing inpatient hospitalization due to continued 2 person assist requirement for transfers. No rehab bed availability at this time Patient examined chart reviewed. Agree with history and physical as well as assessment and plan as outlined by Ms. Caldera <Chaitanya Kessler DO - Last Filed: 08/19/21 15:40> Quality Stroke Does the patient have a stroke diagnosis?: No <SULLY Edwards - Last Filed: 08/19/21 13:15> VTE Prior VTE?: No <SULLY Edwards - Last Filed: 08/19/21 13:15> VTE Risk Level:: Medical - moderate - high <SULLY Edwards - Last Filed: 08/19/21 13:15> VTE Device Contraindication: N/A - Device Ordered <SULLY Edwards - Last Filed: 08/19/21 13:15> VTE Drug Contraindication: N/A - Med Ordered <SULLY Edwards - Last Filed: 08/19/21 13:15>
[2021-08-19 15:24] VITALS: BP 125/78; PULSE 102; RESP 18; TEMP 36.7; O2SAT 98
[2021-08-19 15:48] LABS: Glucose, Whole Blood 118 mg/dL (60-115)
[2021-08-19 19:40] VITALS: BP 147/86; PULSE 87; RESP 18; TEMP 37.1; O2SAT 94
[2021-08-19 20:05] LABS: Glucose, Whole Blood 141 mg/dL (60-115)
[2021-08-19] MEDS: Tamsulosin HCL 0.4 MG CAPSULE PO (20:23)
[2021-08-20] VITALS (7 sets, daily range): BP systolic 112–138; BP diastolic 60–82; PULSE 96–105; RESP 14–20; TEMP 36.6–37.4; O2SAT 90–98
[2021-08-20] MEDS: 0.9 % Sodium Chloride Flush 3 ML SYRINGE IVFLUSH ×4 (00:42→20:41)
[2021-08-20] MEDS: oxyCODONE HCl Immed Release 5 MG TABLET PO ×3 (02:17→20:42)
[2021-08-20] MEDS: Acetaminophen 325 MG TABLET 650 MG OG-TUBE ×2 (02:17→08:52)
[2021-08-20 07:45] LABS: Glucose, Whole Blood 116 mg/dL (60-115)
[2021-08-20] MEDS: Thiamine HCL 100 MG TABLET 200 MG PO ×2 (08:42→20:40)
[2021-08-20] MEDS: fluvoxaMINE Maleate 50 MG TABLET 100 MG PO ×2 (08:42→20:41)
[2021-08-20] MEDS: Enoxaparin Sodium 40 MG/0.4 ML SYRINGE SUBCUT (08:43)
[2021-08-20] MEDS: Ascorbic Acid 500 MG TABLET PO (08:43)
[2021-08-20] MEDS: Ammonium Lactate 12 % Lotion 226 GM BOTTLE 1 APPL TOPICAL ×2 (08:44→20:44)
--- NOTE | 2021-08-20 10:47 | PC.NURSE ---
Skin/wound assessment completed. The stage 3 to coccyx has improved to the level of stage 2 pressure ulcer. The wound bed is smaller with yellow. Triad applied covered with foam dressing. Anal wound has healed.
[2021-08-20 11:34] LABS: Glucose, Whole Blood 126 mg/dL (60-115)
--- NOTE | 2021-08-20 15:01 | HO.PM.IMPN ---
Subjective Subjective Date of Service: 08/20/21 Interval History: No acute events overnight, overall feeling better no back pains, no fevers no chills participating with physical therapy and daily making progress. Review of Systems Review of Systems: Yes all other systems are reviewed and are negative Physical Exam Vital Signs: Vital Signs: Last Vital Signs Temp 98.7 F 08/20/21 11:29 Pulse 102 H 08/20/21 11:29 Resp 18 08/20/21 11:29 BP 114/60 08/20/21 11:29 Pulse Ox 90 L 08/20/21 11:29 Oxygen Flow Rate 10 06/15/21 00:21 BMI result Body Mass Index 26.7 Const: Other: General awake alert,no acute distress. Neck supple no JVD. CVS regular rate rhythm, Respiratory lungs clear to auscultation, no respiratory distress, no wheeze, no rhonchi. Gastrointestinal abdomen soft, nontender, bowel sounds audible, no guarding , no rigidity. Extremities no edema. Neuro nonfocal Skin no rash Psych appropriate affect Objective Data Active Medications Acetaminophen (Acetaminophen 325 Mg Tablet) 650 mg OG-TUBE Q6H PRN PRN Reason: Fever Last Admin: 08/20/21 08:52 Dose: 650 mg Documented by: GABO Amlodipine Besylate (Amlodipine Besylate 5 Mg Tablet) 5 mg PO DAILY [facility]; Protocol Last Admin: 08/09/21 09:12 Dose: 5 mg Documented by: COTEMA Ascorbic Acid (Ascorbic Acid 500 Mg Tablet) 500 mg PO DAILY [facility] Last Admin: 08/20/21 08:43 Dose: 500 mg Documented by: GABO Dextrose (Dextrose 50 % 25 Gm/50 Ml Vial) 25 gm IVPUSH Q15M PRN PRN Reason: per Hypoglycemia Standing Ord. Docusate Sodium (Docusate Sodium 100 Mg Capsule) 100 mg PO BEDTIME [facility] Last Admin: 08/19/21 20:24 Dose: Not Given Documented by: HANDY Non-Admin Reason: Patient Refused Enoxaparin Sodium (Enoxaparin Sodium 40 Mg/0.4 Ml Syringe) 40 mg SUBCUT Q24H [facility] Last Admin: 08/20/21 08:43 Dose: 40 mg Documented by: GABO Fluvoxamine Maleate (Fluvoxamine Maleate 50 Mg Tablet) 100 mg PO BID [facility] Last Admin: 08/20/21 08:42 Dose: 100 mg Documented by: GABO Guaifenesin (Guaifenesin 100 Mg/5 Ml Liquid) 5 ml PO Q4H PRN PRN Reason: Cough Insulin Glargine (Insulin Glargine,Hum.Rec.Anlog 100 Unit/Ml 10 Ml Vial) 50 unit SUBCUT BID [facility] Last Admin: 07/17/21 21:06 Dose: Not Given Documented by: QUINN Non-Admin Reason: No Insulin Coverage Insulin Human Lispro (Insulin Lispro 100 Unit/Ml 3 Ml Vial) 0 unit SUBCUT QIDACHS [facility]; Protocol Last Admin: 08/20/21 11:58 Dose: Not Given Documented by: Lactic Acid (Ammonium Lactate 12 % Lotion 226 Gm Bottle) 1 appl TOPICAL BID [facility]; Protocol Last Admin: 08/20/21 08:44 Dose: 1 appl Documented by: GABO Lisinopril (Lisinopril 10 Mg Tablet) 10 mg PO DAILY [facility]; Protocol Last Admin: 08/09/21 09:12 Dose: 10 mg Documented by: MITCHELL Methotrexate (Methotrexate Sodium 2.5 Mg Tablet) 25 mg PO Tu@1800 [facility] Last Admin: 08/14/21 18:34 Dose: 25 mg Documented by: BOGDAN Omeprazole (Omeprazole 20 Mg/10 Ml Susp.Recon) 40 mg PO DAILY@0630 [facility] Last Admin: 08/20/21 05:24 Dose: 40 mg Documented by: QUINN Oxycodone HCl (Oxycodone Hcl Immed Release 5 Mg Tablet) 5 mg PO Q6H PRN PRN Reason: Pain, Severe (Pain Scale 7-10) Last Admin: 08/20/21 13:13 Dose: 5 mg Documented by: GABO Polyethylene Glycol (Polyethylene Glycol 3350 17 Gm Powd.Pack) 17 gm PO DAILY [facility] Last Admin: 08/20/21 08:54 Dose: Not Given Documented by: GABO Non-Admin Reason: Patient Refused Sodium Chloride (0.9 % Sodium Chloride Flush 3 Ml Syringe) 3 ml IVFLUSH QSHIFT [facility] Last Admin: 08/20/21 08:43 Dose: 3 ml Documented by: GABO Tamsulosin HCl (Tamsulosin Hcl 0.4 Mg Capsule) 0.4 mg PO BEDTIME [facility] Last Admin: 08/19/21 20:23 Dose: 0.4 mg Documented by: HANDY Thiamine HCl (Thiamine Hcl 100 Mg Tablet) 200 mg PO BID [facility] Last Admin: 08/20/21 08:42 Dose: 200 mg Documented by: GABO Trazodone HCl (Trazodone Hcl 25 Mg Halftab) 25 mg PO BEDTIME PRN PRN Reason: Insomnia Last Admin: 08/18/21 20:59 Dose: 25 mg Documented by: HANDY Labs CBC & Chem 7: 08/15/21 06:35 08/15/21 06:35 Labs: Laboratory Results - last 24 hr 08/19/21 08/19/21 08/20/21 15:26 19:53 07:42 POC Glucose 118 H 141 H 116 H 08/20/21 11:31 POC Glucose 126 H Assessment and Plan (1) Back pain: Status: Acute Plan 60-year-old moderately obese with history of Crohn's disease on Stelara, prednisone, methotrexate, diabetes who presents to the emergency department with shortness of breath found to have hypoxia and COVID-19 positive on 06/15/21. On 06/19/21 he snorted cocaine in his room and developed precipitous hypoxemia requiring urgent intubation from developing? He developed the cocaine lung and cardiac toxicity with combined noncardiogenic as well as cardiogenic pulmonary edema? and he remained intubated for 3 weeks and was extubated on 07/11/21? and respiratory status has been stable on room air and transfered to [facility] on 07/12/21.? Clinically had secondary nosocomial bacterial pneumonia and currently Mayda tropicalis urinary tract infection and some persistent atelectasis bilaterally but he is nontoxic Debility due to prolonged intubation/hospitalization Requiring daily physical therapy , gradually making progress currently requiring assistance from lower surfaces such as chair, still has weakness of lower extremities PT continue to recommend short-term rehab versus home with services and frequent check ins will discuss with social media manager regarding safe discharge plan. Chronic/Resolved Acute respiratory failure with hypoxia secondary to COVID-19 pneumonia, cocaine induced noncardiogenic and cardiogenic pulmonary edema that required prolonged intubation initially, resolved. drop in oxygen overnight requiring 3L NC at this time repeat cxr showing b/l airspace dz but appears improved from previous. probable residual result of anesthesia from kyphoplsasty BNP and procalcitonin negative O2 has been intermittently low at night but now better ?GITA, may need outpatient sleep study off oxygen Back pain hx of T12 compression fracture reports skin allergy to lidocaine patch Multiple areas of compression fx on Lumbar CT s/p kyphoplasty 3/3 pain medication as needed, being gradually weaned Acute Abdominal pain. Resolved 4mm partially obstructing stone to distal left ureter without hydronephrosis Started on Flomax afebrile, no leukocytosis, denies recurrent pain HTN BP controlled Continue lisinopril and norvasc Diabetes was on glyburide at home, continue holding. Continue Lantus and SSI Crohn's disease Continue MTX ; will need to follow up for Stelera typically given in [place], prednisone discontinued August 18 Hypokalemia. Resolved was likely r/t diarrhea Mood ? Previously on Remeron, Paxil but now on Luvox, psych recommends continuing with Luvox for now. Mayda tropicalis UTI seen by ID Diflucan 200 mg daily for 14 d, completed treatment Stage 2 pressure foam dressing DVT prophylaxis -Lovenox Code status -full code Attending:Dr. Hernandez Dispo: acute rehab vs snf vs home with services due to physical debility from prolonged hospital stay. awaiting placement Requires ongoing inpatient hospitalization due to continued requirement of assistance for transfers. No rehab bed availability at this time Quality Stroke Does the patient have a stroke diagnosis?: No VTE Prior VTE?: No VTE Risk Level:: Medical - moderate - high VTE Device Contraindication: N/A - Device Ordered VTE Drug Contraindication: N/A - Med Ordered
[2021-08-20 16:01] LABS: Glucose, Whole Blood 126 mg/dL (60-115)
[2021-08-20 20:19] LABS: Glucose, Whole Blood 136 mg/dL (60-115)
[2021-08-20] MEDS: Docusate Sodium 100 MG CAPSULE PO (20:41)
[2021-08-20] MEDS: Tamsulosin HCL 0.4 MG CAPSULE PO (20:41)
[2021-08-21] VITALS: BP 130/61; PULSE 96; RESP 18; TEMP 36.8; O2SAT 92
[2021-08-21 03:23] VITALS: BP 121/61; PULSE 105; RESP 18; TEMP 36.8; O2SAT 91
[2021-08-21] MEDS: oxyCODONE HCl Immed Release 5 MG TABLET PO ×2 (03:32→11:12)
[2021-08-21 07:44] VITALS: BP 129/76; PULSE 118; RESP 19; TEMP 35.9; O2SAT 97
[2021-08-21 07:55] LABS: Glucose, Whole Blood 116 mg/dL (60-115)
[2021-08-21 08:54] VITALS: BP 129/76; PULSE 118; O2SAT 97
[2021-08-21] MEDS: Enoxaparin Sodium 40 MG/0.4 ML SYRINGE SUBCUT (09:07)
[2021-08-21] MEDS: Ascorbic Acid 500 MG TABLET PO (09:08)
[2021-08-21] MEDS: fluvoxaMINE Maleate 50 MG TABLET 100 MG PO (09:08)
[2021-08-21] MEDS: Thiamine HCL 100 MG TABLET 200 MG PO (09:08)
[2021-08-21] MEDS: 0.9 % Sodium Chloride Flush 3 ML SYRINGE IVFLUSH ×2 (09:09→17:45)
[2021-08-21] MEDS: Ammonium Lactate 12 % Lotion 226 GM BOTTLE 1 APPL TOPICAL (09:11)
[2021-08-21 11:11] VITALS: BP 136/76; PULSE 100; RESP 18; TEMP 36.5; O2SAT 93
--- NOTE | 2021-08-21 11:22 | MHC.CM.PN ---
Patient has been medically cleared for dc to home today with [facility]. [facility] will have SOC tomorrow and they have been notified of today's dc. Imm addressed with Patient and the original has been given to him and a copy has been placed on the chart.PT has indicated that they are working on obtaining a FWW,Commode, and Shower chair. CM met with Patient and his Sister/Judith ([phone]) this morning and discussed dc to home today. Patient will dc to home today at 5:30 PM (to allow family time to move Patient's bed downstairs)via [facility]. Patient is aware of and in agreement with the dc plan.
[2021-08-21 11:28] LABS: Glucose, Whole Blood 121 mg/dL (60-115)
--- NOTE | 2021-08-21 12:12 | P.DS_ITS ---
DS: Providers Provider Date of Service: 08/21/21 Date of admission: 06/15/21 12:49 Primary care physician: Luke Kamara III, MD Consults: 06/15/21 12:49 Consult to Infectious Diseases Routine Consulting Provider: Greta Salcedo Reason for consultation: covid 19 Has provider been notified: No 06/21/21 10:02 Consult to Pulmonology Routine Consulting Provider: Yifan Vazquez Reason for consultation: RLL atelectasis Has provider been notified: Yes 06/23/21 07:17 Consult to Infectious Diseases Routine Consulting Provider: Greta Salcedo Reason for consultation: MEROPENEM RESTRICTED ANTIBIOTIC 07/17/21 09:11 Consult to Gastroenterology Routine Consulting Provider: [facility] Reason for consultation: CROHN DIS-? was on stelera Has provider been notified: No 07/19/21 11:42 Consult to Infectious Diseases Routine Consulting Provider: Greta Salcedo Reason for consultation: mago uti Has provider been notified: No 07/19/21 11:43 Addiction Medicine Routine Consulting Provider: Anayeli Curry Reason for consultation: cocaine use , also on nycenta at home Has provider been notified: No 07/19/21 11:44 Consult to Psychiatry Routine Consulting Provider: Psych Covering Reason for consultation: mood dis -was on remerone /paxil-placed on fluxoamine in ICU Has provider been notified: No 08/06/21 13:03 Addiction Medicine Routine Consulting Provider: Anayeli Curry Reason for consultation: cocaine use Has provider been notified: No DS: Diagnosis Discharge Diagnosis (1) Back pain: Status: Acute DS: Summary Hospital Course Hospital Course: Chief Complaint: shortness of breath this is a 60-year-old male with a history of ulcerative colitis on with Stelara and methotrexate who presents to the emergency department with shortness of br eath.? Patient was initially hypoxic and placed on high-flow oxygen.? He tested positive for COVID-19.? He denies any recent sick contacts.? He reports shortness of breath starting yesterday.? He has no associated cough, muscle aches, joint pain.? He has been weaned down to 11 L by [place]? At this time.? in the emergency department lab work is unremarkable with the exception of elevated lactic acid.? He received breathing treatment as well as a dose of IV Lasix.? He will be admitted to the hospital for further management of acute respiratory failure secondary to COVID-19. Vaccination status- patient received Pfizer vaccination x2.? He has not yet received his booster shot, he was scheduled to receive it on 26 of June. Hospital course 60-year-old moderately obese with history of Crohn's disease on Stelara, prednisone, methotrexate, diabetes who presents to the emergency department with shortness of breath found to have hypoxia and COVID-19 positive on 06/15/21. On 06/19/21 he snorted cocaine in his room and developed precipitous hypoxemia requiring urgent intubation from developing cocaine lung and cardiac toxicity with combined noncardiogenic as well as cardiogenic pulmonary edema? and he remained intubated for 3 weeks and was extubated on 07/11/21? and since respiratory status stablized was transfered to [facility] on 07/12/21, Clinically noted to have secondary nosocomial bacterial pneumonia and also Mago tropicalis urinary tract infection for which she was treated with 14 day course of Diflucan , patient oxygenation has since improved currently on room air with finger oximetry 94 95% patient developed following other issues during hospitalizations. Debility due to prolonged intubation/hospitalization Patient required daily physical therapy , and made significant progress, he is able to is stand with walker with supervision from various surfaces types and heights, upright posture has improved, increase heel strike, improved gait speed, therefore he is being discharged home with physical therapy 3 in 1 bedside commode, shower chair and forward wheeled walker. ? GITA, need outpatient sleep study Back pain hx of T12 compression fracture,Multiple areas of compression fx on Lumbar CT, s/p kyphoplasty 08/09, recommend to take as needed Tylenol for recurrent pain. Acute Abdominal pain. Resolved?also noted to have 4mm partially obstructing stone to distal left ureter without hydronephrosis, placed on Flomax patient remains afebrile no leukocytosis no recurrent pain recommend to drink plenty of fluids and outpatient urology follow up HTN blood pressure is stable , not requiring antihypertensives Diabetes stable blood sugars, recommend to follow diabetic diet Crohn's disease recommend to continue home medications, prednisone discontinued on August 18 Hypokalemia. Resolved was likely r/t diarrhea Mood ? Previously on Remeron, Paxil but now on Luvox, psych recommends continuing with Luvox for now. Stage 2 pressure coccyx Healing well cont. foam dressing Time Spent with Patient Time attestation: Total time spent providing and/or coordinating discharge services: Discharge coordination time: Greater than 30 minutes Quality: Stroke Does the patient have a stroke diagnosis?: No Physical Exam Vital Signs: Vital Signs: Last Vital Signs Temp 97.7 F 08/21/21 11:11 Pulse 100 08/21/21 11:11 Resp 18 08/21/21 11:11 BP 136/76 08/21/21 11:11 Pulse Ox 93 08/21/21 11:11 Oxygen Flow Rate 10 06/15/21 00:21 BMI result Body Mass Index 26.7 Const: Other: General awake alert,no acute distress.? Neck supple no JVD. CVS? regular rate rhythm, Respiratory lungs clear to auscultation, no respiratory distress, no wheeze, no rhonchi. Gastrointestinal abdomen soft, nontender, bowel sounds audible, no guarding , no rigidity. Extremities no edema. Neuro nonfocal Skin no rash, stage II coccyx pressure ulcer Psych appropriate affect DS: Data Data Completed and Pending Completed studies during hospitalization [Text1]: Procedures Transfusion of Nonautologous Red Blood Cells into Peripheral Vein, Percutaneous Approach (05/15/21) Labs on day of discharge: Laboratory Results - last 24 hr 08/20/21 08/20/21 08/21/21 15:53 19:41 07:48 POC Glucose 126 H 136 H 116 H 08/21/21 11:13 POC Glucose 121 H Discharge Plan Discharge Patient Disposition: Home Health Service Discharge Diagnosis: Acute respiratory failure with hypoxia secondary to COVID- 19 pneumonia, cocaine induced noncardiogenic and cardiogenic pulmonary edema Referrals: [facility] [Outside] - 1 Week Luke Kamara III, MD [Primary Care Provider] - 1 Week Discharge Medications: New calcium carbonate 650 mg calcium (1,625 mg) tablet 650 mg PO DAILY Qty: 30 0RF fluvoxamine 50 mg Tablet 100 mg PO BID Qty: 60 0RF tamsulosin 0.4 mg Capsule 0.4 mg PO BEDTIME Qty: 30 0RF (DME) commode Kit See Rx Instructions .Route Qty: 1 0RF Rx Instructions: As directed need 3 in 1 bedside commode and shower chair Continued Nucynta ER 50 mg tablet extended release 12 hr 50 mg PO DAILY Qty: 30 0RF sucralfate 1 gram tablet 1 g PO BID Qty: 180 1RF folic acid 1 mg tablet 1 mg PO DAILY 0RF melatonin 5 mg tablet 1 tab PO BEDTIME PRN (Reason: Insomnia) 0RF hydroxyzine pamoate 50 mg capsule 100 mg PO BEDTIME PRN (Reason: Anxiety) 0RF Stelara 90 mg/mL Syringe 90 mg SUBCUT Q8W 0RF methotrexate sodium 2.5 mg tablet 25 mg PO Q7D 0RF omeprazole 20 mg capsule,delayed release(DR/EC) 20 mg PO DAILY Qty: 30 0RF Discontinued glyburide 5 mg tablet 5 mg PO BID 0RF mirtazapine 30 mg tablet 30 mg PO BEDTIME 0RF lisinopril 5 mg tablet 5 mg PO DAILY 0RF paroxetine HCl 40 mg tablet 40 mg PO DAILY 0RF doxycycline monohydrate 100 mg tablet 1 tab PO BID 0RF prednisone 10 mg tablet 4 tab PO DAILY 0RF Discharge Orders: Discharge Order (Routine); Ordered 08/21/21 Ordered By: Jeremy Cummins Diet: advance to usual diet Activity on Discharge: As tolerated Stand Alone Forms: Patient Portal Discharge page Care Plan Goals: Acute respiratory failure with hypoxia secondary to COVID-19 pneumonia, cocaine induced noncardiogenic and cardiogenic? pulmonary edema that required prolonged intuabation-seems to be improved, breathing improving. Continue Lac-Hydrin cream for dryness both feet Mood disorder: Used to be on Remeron and Paxil-currently on Luvox , consider outpatient psych follow for further use. Mago UTI: complete fluconazole course. dm:fs 120-200 mg/dl : Hba1c levels 6.9: adjusted glipizide to 2.5 mg po daily. further management as per rehab. Health Concerns: as above. Plan of Treatment: as above. Follow-up with primary care physician in 1-2 weeks Assessment: as above.
--- NOTE | 2021-08-21 13:34 | W.MHC.F2F ---
Service Date Service Date: 08/21/21 Encounter Date of encounter: 08/21/21 Reasons for Services Signs and symptoms assessed: Prolonged hospitalization/lumbar compression fractures status post kyphoplasty/acute hypoxic respiratory failure resolved Reason for alf: diabetic teaching and medication management Reason for physical therapy: home safety and mobility Reason for occupational therapy: gait/transfer training Homebound: Leaving the home is medically contraindicated at this time without the asist of a device and/or another person due th the listed conditions above and below. Reason homebound: weakness related to hospital stay Certification: Based on the above findings, I certify that this patient is confined to the home and needs intermittent alf care, physical therapy and/or speech therapy, or continues to need occupational therapy. The patient is under my care, and I have initiated the establishment of the plan of care. The patient will be followed by a physician who will periodically review the plan of care.
[2021-08-21 16:00] VITALS: BP 119/75; PULSE 122; RESP 19; TEMP 36.3; O2SAT 94
[2021-08-21 16:22] LABS: Glucose, Whole Blood 145 mg/dL (60-115)
[2021-08-21] MEDS: metHOTREXate sodium 2.5 MG TABLET 25 MG PO (17:44)
== END 2021-08-21 18:28 | disposition home health service (06) | DRG 981 ==
LOC: HO.ED 06-15 02:07 → HO.EDOVER 06-15 13:06 → HO.IMC 06-15 21:41 → HO.ICU 06-19 22:20 → HO.IMC 07-12 14:45
PROVIDERS: Anesthesiology; Internal Medicine; Internal Medicine Cardiovascular Disease; Internal Medicine Pulmonary Disease; Nurse Practitioner Acute Care; Physician Assistant; Physician Assistant Medical; Radiology Diagnostic Radiology; Registered Nurse Community Health; Admitting Provider Physician Assistant Medical; Emergency Provider Student in an Organized Health Care Education/Training Program; PCP Internal Medicine; Visit Provider Hospitalist
PROC: 0QS03ZZ Reposition Lumbar Vertebra, Percutaneous Approach (ICD-10-PCS; principal; 2021-08-09 10:40)
DX: U07.1 COVID-19 (principal); J12.82 Pneumonia due to coronavirus disease 2019; G92.8 Other toxic encephalopathy; J80 Acute respiratory distress syndrome; J68.1 Pulmonary edema due to chemicals, gases, fumes and vapors; J15.5 Pneumonia due to Escherichia coli; K51.90 Ulcerative colitis, unspecified, without complications; D84.821 Immunodeficiency due to drugs; E87.2 Acidosis; E66.2 Morbid (severe) obesity with alveolar hypoventilation; C92.51 Acute myelomonocytic leukemia, in remission; E87.3 Alkalosis; N20.1 Calculus of ureter; I42.7 Cardiomyopathy due to drug and external agent; F14.221 Cocaine dependence with intoxication delirium; B37.49 Other urogenital candidiasis; I13.0 Hypertensive heart and chronic kidney disease with heart failure and stage 1 through stage 4 chronic kidney disease, or unspecified chronic kidney disease; F05 Delirium due to known physiological condition; M48.55XA Collapsed vertebra, not elsewhere classified, thoracolumbar region, initial encounter for fracture; I50.32 Chronic diastolic (congestive) heart failure; J98.2 Interstitial emphysema; T40.5X1A Poisoning by cocaine, accidental (unintentional), initial encounter; G89.29 Other chronic pain; E87.6 Hypokalemia; L89.152 Pressure ulcer of sacral region, stage 2; F41.1 Generalized anxiety disorder; F32.A Depression, unspecified; Z68.26 Body mass index [BMI] 26.0-26.9, adult; E10.22 Type 1 diabetes mellitus with diabetic chronic kidney disease; N18.9 Chronic kidney disease, unspecified; Z79.84 Long term (current) use of oral hypoglycemic drugs; Z79.899 Other long term (current) drug therapy
CPT/HCPCS: 22513; 36415; 71045; 71275; 72100; 72128; 72158; 74176; 74177; 80048; 80053; 80076; 80307; 81001; 82040; 82272; 82550; 82728; 82803; 82947; 83036; 83605; 83615; 83735; 83880; 84100; 84145; 84443; 84484; 85007; 85025; 85027; 85379; 85610; 85730; 86140; 86850; 86900; 86901; 86923; 87040; 87070; 87077; 87086; 87088; 87186; 87205; 87493; 87635; 92526; 92610; 93005; 93306; 94002; 94003; 94640; 94799; 96374; 97110; 97116; 97163; 97167; 97530; 97535; 99285; A9585; C1758; J0248; J0330; J0696; J1100; J1170; J1450; J1650; J1940; J1956; J2060; J2185; J2250; J2270; J2370; J2405; J2920; J2930; J3010; J3370; J3490; P9016; P9047; Q9967

== ENCOUNTER → 2021-08-24 10:41 | Outpatient (BNVA) | payer MEDICARE, MEDICAID, SELFPAY | PROVIDERS: PCP Internal Medicine; Visit Provider Internal Medicine Gastroenterology | DX: Z13.89 Encounter for screening for other disorder (principal) | CPT/HCPCS: Q3014 ==

== ENCOUNTER 2021-08-24 18:07 | Emergency (ER) | payer MEDICARE, MEDICAID, SELFPAY ==
--- NOTE | ~2021-08-24 | XR_ITS ---
EXAMINATION: THORACIC, LUMBAR SPINE AND LEFT SHOULDER CLINICAL INFORMATION: Fall, pain. COMPARISON: CT thoracic spine 08/26/2021 TECHNIQUE: 2 views dorsal spine. 3 views lumbar spine and 4 views left shoulder. FINDINGS: DORSAL SPINE: There is maintained thoracic kyphosis. There is old T12 compression fracture with cement augmentation. There is severe T10 compression fracture Rest of the vertebral heights, alignment and disc heights are normal. No visible acute fracture, dislocation or subluxation seen. The paravertebral soft tissues are normal. LUMBAR SPINE: There is normal lumbar lordosis the vertebral heights and alignment is normal. There is loss of L3 and T12 vertebral height with cement augmentation. There are superior endplate deformities of L1 and L3 vertebra new as was seen on previous exam 08/26/2021 CT. Patient also has a severe compression fracture T10 vertebra not in the [id number] but seen on previous CT thoracic spine 08/09/2021. Left shoulder: There is no visible acute fracture, dislocation or subluxation. The glenohumeral joint space is normal. There is mild loss of left AC joint space with periarticular spurring. The soft tissues are normal. XR/XR lumbar spine 2-3V IMPRESSION:. Severe degenerative compression fracture.. There is superior endplate deformities of L1, L2 and L3 vertebra the L2 and L3 vertebral endplate fractures were visualized on the previous CT. There is cement augmentation of T12 and L3 vertebral fractures. Mild degenerative changes left AC joint. No visible acute fracture or dislocation left shoulder.
--- NOTE | ~2021-08-24 | XR_ITS ---
EXAMINATION: THORACIC, LUMBAR SPINE AND LEFT SHOULDER CLINICAL INFORMATION: Fall, pain. COMPARISON: CT thoracic spine 08/26/2021 TECHNIQUE: 2 views dorsal spine. 3 views lumbar spine and 4 views left shoulder. FINDINGS: DORSAL SPINE: There is maintained thoracic kyphosis. There is old T12 compression fracture with cement augmentation. There is severe T10 compression fracture Rest of the vertebral heights, alignment and disc heights are normal. No visible acute fracture, dislocation or subluxation seen. The paravertebral soft tissues are normal. LUMBAR SPINE: There is normal lumbar lordosis the vertebral heights and alignment is normal. There is loss of L3 and T12 vertebral height with cement augmentation. There are superior endplate deformities of L1 and L3 vertebra new as was seen on previous exam 08/26/2021 CT. Patient also has a severe compression fracture T10 vertebra not in the [id number] but seen on previous CT thoracic spine 08/09/2021. Left shoulder: There is no visible acute fracture, dislocation or subluxation. The glenohumeral joint space is normal. There is mild loss of left AC joint space with periarticular spurring. The soft tissues are normal. XR/XR thoracic spine 3V IMPRESSION:. Severe degenerative compression fracture.. There is superior endplate deformities of L1, L2 and L3 vertebra the L2 and L3 vertebral endplate fractures were visualized on the previous CT. There is cement augmentation of T12 and L3 vertebral fractures. Mild degenerative changes left AC joint. No visible acute fracture or dislocation left shoulder.
--- NOTE | ~2021-08-24 | CT_ITS ---
EXAMINATION: CT HEAD WITHOUT CONTRAST CT CERVICAL SPINE WITHOUT CONTRAST CLINICAL INFORMATION: Fall, head injury. COMPARISON: CT brain dated from 03/01/2018. CT chest 06/15/2021. TECHNIQUE: Contiguous axial imaging was performed from the skull base to vertex without intravenous administration of contrast. Contiguous axial imaging was performed from the upper chest through the skull base without intravenous administration of contrast. Coronal and sagittal reformats were obtained at the acquisition workstation. This CT examination was performed using dose optimization techniques as appropriate, variously including the following: *Automated exposure control *Adjustment of mA and/or kV according to patient size (this includes techniques or standardized protocols for targeted exams where dose is matched to indication/reason for exam; i.e. extremities or head) *Use of iterative reconstruction technique DLP: 952 and 573 mGy-cm FINDINGS: Head: There is no evidence of acute intracranial hemorrhage or edematous territorial infarction. There is no abnormal attenuation within the brain parenchyma. Hall-white matter differentiation is preserved. The ventricles are normal in size and configuration. No evidence for obstructive hydrocephalus. No abnormal mass effect or midline shift. No extra-axial fluid collections. No acute soft tissue or osseous abnormalities. Mucosal thickening of the paranasal sinuses. No air-fluid levels. Trace bilateral mastoid effusions. Cervical Spine: The atlantooccipital and atlantoaxial articulations remain well aligned. Straightening of the normal cervical lordosis. Otherwise, there is anatomic alignment of the vertebral bodies and posterior elements. No evidence of acute fracture or subluxation. Mild to moderate multilevel cervical spondylosis with disc space narrowing and facet arthropathy. There is no prevertebral soft tissue swelling. The thyroid gland and remaining cervical soft tissues are normal in appearance. The lung apices demonstrate residual groundglass attenuation and scarring, improved when compared to 06/15/2021. CT/CT cervical spine wo con IMPRESSION: No acute intracranial pathology. No acute cervical spine fractures or malalignment.
--- NOTE | ~2021-08-24 | XR_ITS ---
EXAMINATION: THORACIC, LUMBAR SPINE AND LEFT SHOULDER CLINICAL INFORMATION: Fall, pain. COMPARISON: CT thoracic spine 08/26/2021 TECHNIQUE: 2 views dorsal spine. 3 views lumbar spine and 4 views left shoulder. FINDINGS: DORSAL SPINE: There is maintained thoracic kyphosis. There is old T12 compression fracture with cement augmentation. There is severe T10 compression fracture Rest of the vertebral heights, alignment and disc heights are normal. No visible acute fracture, dislocation or subluxation seen. The paravertebral soft tissues are normal. LUMBAR SPINE: There is normal lumbar lordosis the vertebral heights and alignment is normal. There is loss of L3 and T12 vertebral height with cement augmentation. There are superior endplate deformities of L1 and L3 vertebra new as was seen on previous exam 08/26/2021 CT. Patient also has a severe compression fracture T10 vertebra not in the [id number] but seen on previous CT thoracic spine 08/09/2021. Left shoulder: There is no visible acute fracture, dislocation or subluxation. The glenohumeral joint space is normal. There is mild loss of left AC joint space with periarticular spurring. The soft tissues are normal. XR/XR shoulder LT min 2V IMPRESSION:. Severe degenerative compression fracture.. There is superior endplate deformities of L1, L2 and L3 vertebra the L2 and L3 vertebral endplate fractures were visualized on the previous CT. There is cement augmentation of T12 and L3 vertebral fractures. Mild degenerative changes left AC joint. No visible acute fracture or dislocation left shoulder.
--- NOTE | ~2021-08-24 | CT_ITS ---
EXAMINATION: CT ANGIOGRAM OF THE CHEST WITH AND WITHOUT CONTRAST (CT PULMONARY ANGIOGRAM FOR PE) CLINICAL INFORMATION: Reason for Exam pt c sob low oxygen/LE edema ? pe vs chf COMPARISON: June 15, 2021 TECHNIQUE: Prior to contrast administration, noncontrast localization images were obtained. Subsequently, multidetector volumetric imaging was performed from the thoracic inlet to below the diaphragms following the administration of 130 mL Omnipaque 350 intravenous contrast. No contrast reaction reported Sagittal, coronal, and MIP oblique sagittal reformatted images were obtained on the CT workstation, uploaded to PACS, and reviewed. This CT examination was performed using dose optimization techniques as appropriate, variously including the following: *Automated exposure control *Adjustment of mA and/or kV according to patient size (this includes techniques or standardized protocols for targeted exams where dose is matched to indication/reason for exam; i.e. extremities or head) *Use of iterative reconstruction technique Total exam dose-length product 969 mGy-cm FINDINGS: QUALITY OF STUDY/CONTRAST BOLUS: Satisfactory. PULMONARY ARTERIES: No central or segmental pulmonary emboli. THORACIC AORTA: No aneurysm or dissection. LUNG: There are scattered regions of groundglass opacity as well as coarse interstitial lung disease bilaterally. Above findings may be sequela of previous Covid 19 disease which was evident on study of June 15, 2021. There is region of atelectasis or scarring within the anterior medial aspect of the left upper lobe. There is loss of volume and bronchiectasis seen within the right middle lobe and right lower lobe. Bilateral hilar soft tissue density is seen which could be related to lymph nodes or central bronchial scarring. There is elevation of the right hemidiaphragm. PLEURA: No pleural effusion or pneumothorax. Elevation right hemidiaphragm. MEDIASTINUM: Normal heart size. No pericardial effusion. Coronary artery calcification present. No hilar or mediastinal lymphadenopathy. No evidence of septal bowing or right heart strain. CHEST WALL/AXILLA: No axillary or internal mammary lymphadenopathy. OSSEOUS STRUCTURES: No suspicious destructive bony lesions identified. Status post previous anterior left rib fractures. Fractures of the T10 and T12 vertebral bodies present status post T12 kyphoplasty. UPPER ABDOMEN: Unremarkable. No reflux of contrast into the hepatic veins to suggest elevated right heart pressures. CT/CT angio chest PE protocol IMPRESSION: No evidence of acute pulmonary artery embolus. No evidence of thoracic aortic aneurysm or dissection. Bilateral regions of scarring with groundglass opacity and coarse interstitial disease likely representing sequela of previous diffuse Covid 19 disease as was seen on CT scan of June 15, 2021. Elevation of the right hemidiaphragm. VTE: negative
[2021-08-24 18:26] VITALS: PULSE 118; O2SAT 96
[2021-08-24 18:27] VITALS: BP 127/82; PULSE 101; RESP 16; TEMP 36.8; O2SAT 95; BMI 29.3
--- NOTE | 2021-08-24 18:35 | ED_ITS ---
HPI - Fall General Chief Complaint: Fall Stated Complaint: fall Time Seen by Provider: 08/24/21 18:33 Source: patient Mode of arrival: EMS Limitations: language barrier (Mongolian-speaking, medical housekeeper utilized) History of Present Illness HPI Narrative: Patient is a 60-year-old male with a past medical history of anxiety, Crohn disease, colitis, diabetes, pneumomediastinum, anemia, history of acute hypoxemi c respiratory failure, congestive heart failure. He presents the emergency department today via ambulance after a fall while at home. He reports baseline limited mobility with the use of a walker. While attempting to turn in his living room he lost his balance and fell backwards striking his back and head against the stairs. Denies precipitating dizziness or lightheadedness. He denies head or neck pain. Denies loss of consciousness. Denies vision changes. Currently reporting left shoulder pain, denies numbness or tingling to the bilateral arms or hands. In addition he is experiencing diffuse lower back pain, denies bladder or bowel dysfunction, numbness or tingling of the perineum or bilateral legs. Denies any recent surgical procedures, any known immune compromising conditions, personal history of cancer, or IV drug usage. He reports that he feels he is unable to return home due to his immobility, he lives at home with his son and also has visiting nurse services coming into the home. Related Data Home Medications Medication Instructions Recorded Confirmed folic acid 1 mg tablet 1 mg PO DAILY 02/14/21 08/24/21 hydroxyzine pamoate 50 mg capsule 100 mg PO BEDTIME PRN 04/02/21 08/24/21 ustekinumab 90 mg/mL subcutaneous 90 mg SUBCUT Q8W 04/02/21 08/24/21 syringe (Stelara) methotrexate sodium 2.5 mg tablet 25 mg PO TU 05/15/21 08/24/21 melatonin 5 mg tablet 2 tab PO BEDTIME PRN 08/24/21 08/24/21 Previous Rx's Medication Instructions Recorded sucralfate 1 gram tablet 1 g PO BID #180 tab 05/17/21 omeprazole 20 mg capsule,delayed 20 mg PO DAILY #30 cap 06/03/21 release calcium carbonate 650 mg calcium 650 mg PO DAILY #30 tab 07/19/21 (1,625 mg) tablet fluvoxamine 50 mg tablet 100 mg PO BID #60 tab 07/19/21 commode #1 ea 08/21/21 tamsulosin 0.4 mg capsule 0.4 mg PO BEDTIME #30 cap 08/21/21 tapentadol 50 mg tablet,extended 50 mg PO DAILY #30 tab 08/24/21 release,12 hr (Nucynta ER) Allergies Allergy/AdvReac Type Severity Reaction Status Date / Time none Allergy Unknown Unknown Uncoded 04/02/21 16:05 Review of Systems Review of Systems: Constitutional: No weight loss, fever, chills, weakness or fatigue. HEENT: No visual loss, blurred vision, double vision. No hearing loss, sneezing, congestion, runny nose or sore throat. Skin: 4 cm superficial abrasion to left forearm Cardiovascular: No chest pain, chest pressure or chest discomfort. No palpitations.. Respiratory: No shortness of breath, cough or sputum production. Gastrointestinal: No anorexia, nausea, vomiting or diarrhea. No abdominal pain, no bloody or dark stools. Genitourinary: No burning micturition. No urinary frequency or incontinence. Neurologic: No headache, dizziness, syncope, unilateral weakness, ataxia, numbness or tingling in the extremities. No change in bowel or bladder control. Musculoskeletal: Positive back pain, positive left shoulder pain Hematologic: No bleeding or bruising. Lymphatics: No enlarged lymph nodes. Psychiatric:No depression or anxiety. Yes all other systems are reviewed and are negative PMFSH Past Medical History Attestation statement: The following information was validated with the patient. 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) Surgical History History of bone marrow biopsy (~2016) History of cholecystectomy (~2011) History of colonoscopy (~2020) History of esophagogastroduodenoscopy (EGD) (~2020) History of hemorrhoidectomy (~2003) History of lithotripsy (~2017) History of rectal sphincterotomy (~2003) History of right knee surgery (~2016) History of surgery on right wrist (~2006) Social History Social History Household Members: Family Housing: Apartment Do you presently have visiting nurse or other home services: No Alcohol intake: never Patient Tobacco Use Status: Never used Tobacco e-Cigarette/Vaping Use: Never Used Second Hand Smoke Exposure: No Advance Directives: Yes Advance Directives on File: Yes Advance Directives Date on File: 04/04/21 service: No Current occupational status: disabled Physical Exam Vital Signs: Vital Signs: Last Vital Signs Temp 97.8 F 08/24/21 23:08 Pulse 100 08/24/21 23:08 Resp 16 08/24/21 23:08 BP 122/80 08/24/21 23:08 Pulse Ox 99 08/24/21 23:08 BMI result Body Mass Index 29.3 Vital signs have been reviewed as normal and appeared to be correct. Blood pressure normal.? Heart rate normal.? Respiration rate normal. Temperature normal.? Oxygen saturation normal. Appearance: Alert.?Oriented to person, place and time. No acute distress.?Normal affect. Head: Normocephalic, atraumatic, no palpable deformity Eyes: Pupils equal, round and reactive to light.?EOMi ENT: Pharynx normal.?? Neck: Normal inspection.? Neck supple.? No palpable mid line cervical spine tenderness, step-off, deformity. Back: No palpable midline tenderness, step-off, deformity. Tenderness over bilateral paraspinal muscles CVS: Heart sounds normal. Normal heart rate and rhythm.? Pulses normal.?? Respiratory: No respiratory distress.? Lung sounds clear to auscultation bilaterally?? Abdomen: Soft and non-tender. Normoactive bowel sounds. ? Skin: 4cm superficial abrasion to left forearm. Skin warm and dry.? Normal skin color.? Normal skin turgor.?? Extremities: 2+ bilateral lower extremity pedal edema. No calf ttp? Neuro: Moves all extremities spontaneously. Sensation intact bilaterally. CN II- XII intact. No focal neuro deficits. Course Course Course Narrative: Patient is a 60-year-old male being evaluated after a mechanical fall. Of note patient was recently admitted to the hospital 06/15/2021 and discharged on 08/21/2021 after a prolonged hospitalization for lumbar compression fractures status post kyphoplasty and acute hypoxic respiratory failure secondary to COVI D-19, hospital stay was complicated with bacterial pneumonia, urinary tract infection. Given events today with fall will obtain CT of the head and C-spine to exclude ICH, SAH, fracture, dislocation given head strike. Will obtain x-ray of the left shoulder and thoracic/lumbar spine to evaluate for fracture dislocation. Obtain basic labs including CBC and BMP. Tylenol for pain. Disposition will be pending results, however, given patient's concern about his functionality and immobility at home he will likely require evaluation by Physical therapy and Case Management. Reevaluation(s) Reevaluation #1: CT of the head reveals no acute intracranial pathology, CT of the cervical spine reveals no acute fracture dislocation, hard C-spine collar removed at this time. Time: 21:09 Reevaluation #2: Patient noted to have hypokalemia with potassium of 2.8, will supplement with potassium chloride 40 mEq, and repeat level in the morning. EKG reveals sinus tachycardia right bundle-branch block and a prolonged QT, no concern for acute ischemia. Otherwise unremarkable BMP, CBC reveals anemia hemoglobin 9.5 and hematocrit 31.2 consistent with prior levels on 08/15/2021. X-ray of the left shoulder reveals mild degenerative changes but no acute fracture dislocation. Thoracic and lumbar compression fractures consistent with prior examinations. Patient placed in physician observation at this time, he will require further time for evaluation by Physical therapy and case management for safe disposition as patient feels unable to be be at home safely, and having difficulty ambulating while in the ER. Time: 00:53 MDM - Fall Medical Records Attestation: I reviewed the patient's medical records. Lab Data Attestation: I reviewed the patient's lab results. Result diagrams: 08/24/21 23:40 08/24/21 23:16 Labs: Lab Results 08/24/21 08/24/21 08/24/21 Range/Units 23:16 23:39 23:40 WBC 6.5 (4.8-10.8) X10*3/uL RBC 3.55 L (4.60-5.80) X10*6/uL Hgb 9.5 L (14.0-18.0) g/dl Hct 31.2 L (42.0-52.0) % MCV 87.9 (80.0-98.0) fL MCH 26.8 L (27.0-33.0) pg MCHC 30.4 L (31.0-36.0) g/dl RDW 18.7 H (11.0-16.0) % Plt Count 427 H D (160-400) X10*3/uL MPV 8.9 L (9.4-12.4) fL Immature Gran % (Auto) 0.5 H (0.0-0.4) % Neut % (Auto) 63.2 (45-73) % Lymph % (Auto) 26.9 (20-40) % [place] % (Auto) 3.4 (2-11) % Eos % (Auto) 5.1 H (0-4) % Baso % (Auto) 0.9 (0-2) % Lymph # (Auto) 1.7 (1.2-4.9) X10*3/uL [place] # (Auto) 0.2 (0.1-1.2) X10*3/uL Eos # (Auto) 0.3 (0.0-0.4) X10*3/uL Baso # (Auto) 0.1 (0.0-0.2) X10*3/uL Abs Immat Gran (auto) 0.03 (0.00-0.03) X10*3/uL Absolute Neuts (auto) 4.1 (2.0-8.3) x10*3/uL Absolute Nucleated RBC 0.000 (0.0-0.012) X10*3/uL Nucleated RBC % (auto) 0.0 (0.0-0.2) /100WBC Smear Tech's Comments VERIFIED Sodium 141 (135-145) mmol/L Potassium 2.8 L D (3.3-5.1) mmol/L Chloride 103 (96-108) mmol/L Carbon Dioxide 25 (22-29) mmol/L Anion Gap 16 (12-20) BUN 9 (9-16) mg/dL Creatinine 0.64 (0.5-1.4) mg/dL Estim Creat Clear Calc 157.9 Estimated GFR > 60 Random Glucose 95 (60-115) mg/dL Calcium 8.2 L (8.4-10.2) mg/dL COVID-19 (KRISTOPHER) Negative (Negative) COVID-19 Clin Com See Note Imaging Data CT scan - head: Radiologist's impression: CT/CT cervical spine wo con IMPRESSION: No acute intracranial pathology. No acute cervical spine fractures or malalignment. XR spine: Radiologist's impression: XR/XR shoulder LT min 2V IMPRESSION:. Severe degenerative compression fracture.. ? There is superior endplate deformities of L1, L2 and L3 vertebra the L2 and L3 vertebral endplate fractures were visualized on the previous CT. ? There is cement augmentation of T12 and L3 vertebral fractures. XR left shoulder: Radiologist's impression: XR/XR shoulder LT min 2V IMPRESSION:. ?Mild degenerative changes left AC joint. No visible acute fracture or dislocation left shoulder. ECG Data Attestation: I personally reviewed and interpreted this ECG as follows: ECG interpretation date: 08/25/21 ECG interpretation time: 00:55 Prior ECG tracings: available for review Interpretation: Rate: 105 Rhythm:? Sinus tachycardia, right bundle-branch block [place]:? Normal Normal P waves.? Normal BRYNN.?? Normal QRS complex.?? ST T wave :??No ST elevation, no ST depression qTC: Prolonged 515 prior studies:? June 2021 The study has been interpreted contemporaneously by me. Discharge Plan Discharge Clinical Impression: Fall, Generalized weakness Patient Disposition: Still a Patient Prescriptions: No Action sucralfate 1 gram tablet 1 g PO BID Qty: 180 1RF folic acid 1 mg tablet 1 mg PO DAILY 0RF hydroxyzine pamoate 50 mg capsule 100 mg PO BEDTIME PRN (Reason: Anxiety) 0RF Stelara 90 mg/mL Syringe 90 mg SUBCUT Q8W 0RF methotrexate sodium 2.5 mg tablet 25 mg PO TU 0RF calcium carbonate 650 mg calcium (1,625 mg) tablet 650 mg PO DAILY Qty: 30 0RF fluvoxamine 50 mg Tablet 100 mg PO BID Qty: 60 0RF tamsulosin 0.4 mg Capsule 0.4 mg PO BEDTIME Qty: 30 0RF (DME) commode Kit See Rx Instructions .Route Qty: 1 0RF Rx Instructions: As directed need 3 in 1 bedside commode and shower chair omeprazole 20 mg capsule,delayed release(DR/EC) 20 mg PO DAILY Qty: 30 0RF melatonin 5 mg tablet 2 tab PO BEDTIME PRN (Reason: Sleep) 0RF Nucynta ER 50 mg tablet extended release 12 hr 50 mg PO DAILY Qty: 30 0RF
[2021-08-24] MEDS: Acetaminophen 325 MG TABLET 975 MG PO (19:28)
[2021-08-24] MEDS: Bacitracin Oint 14 GM TUBE 1 APPL TOPICAL (19:30)
--- NOTE | 2021-08-24 22:27 | PHA.MEDREC ---
Pharmacy Consult ? Medication Reconciliation Pharmacy has completed the medication reconciliation. Pt states that he takes melatonin 10 mg po bedtime prn not 5 mg
--- NOTE | 2021-08-24 23:03 | MHC.CM.ED ---
Pt hospitalized with Covid 19 at [facility] from 06/15-08/21. Pt states he was on a ventilator. D/C on 08/21 with [facility], PT, and script for walker, commode and shower chair. Pt had one visit. Fell today. Pt does not feel he can care for himself at home. Pt states he needs therapy. Wants to go to facility. No preference. States lives with son and he is in school during the day. Son, Ashley Kauffman. Pt had Pfizer x2. HCP on file. HCP/sister Judith Kauffman ([phone]). Pt to have PT eval in am. Referrals placed. CM to follow for d/c needs.
[2021-08-24 23:08] VITALS: BP 122/80; PULSE 100; RESP 16; TEMP 36.6; O2SAT 99
[2021-08-24 23:51] LABS: Anion Gap 16 (12-20); Blood Urea Nitrogen 9 mg/dL (9-16); Calcium 8.2 mg/dL (8.4-10.2); Carbon Dioxide 25 mmol/L (22-29); Chloride 103 mmol/L (96-108); Creatinine Clr Calc Pharmacy 157.9; Estimated Glomerular Filt Rate > 60; Glucose Random 95 mg/dL (60-115); Potassium 2.8 mmol/L (3.3-5.1); Sodium 141 mmol/L (135-145)
[2021-08-24 23:55] LABS: Basophils Absolute Auto 0.1 X10*3/uL (0.0-0.2); Basophils Percent Auto 0.9 % (0-2); Eosinophils Absolute Auto 0.3 X10*3/uL (0.0-0.4); Eosinophils Percent Auto 5.1 % (0-4); Hematocrit 31.2 % (42.0-52.0); Hemoglobin 9.5 g/dl (14.0-18.0); Imm Gran Abs Auto 0.03 X10*3/uL (0.00-0.03); Imm Gran Pct Auto 0.5 % (0.0-0.4); Lymphocytes Absolute Auto 1.7 X10*3/uL (1.2-4.9); Lymphocytes Percent Auto 26.9 % (20-40); MANUAL DIFF FLAG SCAN; Mean Corpuscular HGB Conc 30.4 g/dl (31.0-36.0); Mean Corpuscular Hemoglobin 26.8 pg (27.0-33.0); Mean Corpuscular Volume 87.9 fL (80.0-98.0); Mean Platelet Volume 8.9 fL (9.4-12.4); Monocytes Absolute Auto 0.2 X10*3/uL (0.1-1.2); Monocytes Percent Auto 3.4 % (2-11); Neutrophils Absolute Auto 4.1 x10*3/uL (2.0-8.3); Neutrophils Percent Auto 63.2 % (45-73); Platelet Count 427 X10*3/uL (160-400); Red Blood Count 3.55 X10*6/uL (4.60-5.80); Red Cell Distribution Width 18.7 % (11.0-16.0); SCAN SMEAR FLAG 1; White Blood Count 6.5 X10*3/uL (4.8-10.8)
[2021-08-25 00:06] LABS: COVID-19 Test Negative (Negative); IDNOW Serial# 55D5AD1C
--- NOTE | 2021-08-25 00:13 | ECG_ITS ---
Test Reason : WEAKNESS Blood Pressure : / mmHG Vent. Rate : 101 BPM Atrial Rate : 101 BPM P-R Int : 140 ms QRS Dur : 138 ms QT Int : 394 ms P-R-T Axes : 031 -29 020 degrees QTc Int : 510 ms Sinus tachycardia Right bundle branch block Abnormal ECG When compared with ECG of 23-JUN-2021 22:28, Vent. rate has increased BY 39 BPM QT has lengthened Referred By: Haley Friedman Electronically Signed By:RUFINA RODRIGUEZ
[2021-08-25 00:19] LABS: SLIDE REVIEW VERIFIED
[2021-08-25] MEDS: Melatonin 3 MG TABLET 9 MG PO (00:46)
[2021-08-25] MEDS: Potassium Chloride Packet 20 MEQ PACKET 40 MEQ PO (00:46)
[2021-08-25 03:51] VITALS: BP 113/83; PULSE 109; RESP 18; O2SAT 95
[2021-08-25 04:01] LABS: Amphetamine Screen Urine Not Detected (Not Detect); Barbiturates, Urine Not Detected (Not Detect); Benzodiazepines Screen Urine Not Detected (Not Detect); Cannabinoid Screen Urine Not Detected (Not Detect); Cocaine Screen Urine Not Detected (Not Detect); Fentanyl, urine Not Detected (Not Detect); Opiate Screen Urine Not Detected (Not Detect); Phencyclidine Screen Urine Not Detected (Not Detect)
[2021-08-25] MEDS: oxyCODONE HCl Immed Release 5 MG TABLET PO ×2 (05:30→11:28)
[2021-08-25 05:31] VITALS: BP 104/65; PULSE 105; RESP 18; TEMP 36.8; O2SAT 93
[2021-08-25] MEDS: Folic Acid 1 MG TABLET PO ×2 (08:34→08:35)
[2021-08-25] MEDS: Sucralfate 1 GM TABLET PO ×2 (08:34→08:35)
[2021-08-25] MEDS: Omeprazole 20 MG CAPSULE.DR PO (08:35)
[2021-08-25 09:01] VITALS: BP 104/65; PULSE 105; O2SAT 93
[2021-08-25] MEDS: fluvoxaMINE Maleate 50 MG TABLET 100 MG PO ×2 (10:47→20:32)
[2021-08-25 11:06] LABS: Anion Gap 14 (12-20); Blood Urea Nitrogen 7 mg/dL (9-16); Calcium 8.6 mg/dL (8.4-10.2); Carbon Dioxide 29 mmol/L (22-29); Chloride 104 mmol/L (96-108); Creatinine Clr Calc Pharmacy 174.3; Estimated Glomerular Filt Rate > 60; Glucose Random 112 mg/dL (60-115); Potassium 3.5 mmol/L (3.3-5.1); Sodium 143 mmol/L (135-145)
[2021-08-25 11:19] VITALS: BP 121/62; PULSE 104; RESP 12; O2SAT 94
--- NOTE | 2021-08-25 11:57 | PC.NURSE ---
PT AMB TO BR WITH [facility]
[2021-08-25] MEDS: oxyCODONE HCl ER 10 MG TAB.ER.12H PO ×2 (13:06→20:15)
[2021-08-25] MEDS: Tamsulosin HCL 0.4 MG CAPSULE PO (20:15)
[2021-08-25 21:58] VITALS: BP 122/63; PULSE 116; RESP 18; TEMP 36.8; O2SAT 88
[2021-08-26] MEDS: oxyCODONE HCl Immed Release 5 MG TABLET PO (04:47)
--- NOTE | 2021-08-26 05:04 | PC.NURSE ---
I assumed nursing care of Bhavik at 1900. Since that time he has remained alert, oriented x 3, speech clear and appropriate, makes eye contact with RN, is calm and cooperative. He denies chest pain. Respirations are non-labored, RR 22, room air sat's 95% or better. He has been taking PO fluids throughout the night without difficulty. he frequently complains of LUE pain that he attributes to a fall he sustained prior to coming to ED yesterday. There is old bruising noted to LUE above his elbow extending toward his L shoulder. I have administered Oxycodone per MD order for LUE pain. He experiences pain relief from this for a period of 3-4 hours. Bhavik is aware that he is to be transferred to a SNF tomorrow AM and he verbalizes an understanding of this.
[2021-08-26 05:23] VITALS: BP 113/67; PULSE 82; RESP 16; O2SAT 95
[2021-08-26 06:16] VITALS: BP 132/76; PULSE 72; RESP 14; TEMP 36.8; O2SAT 96
[2021-08-26] MEDS: Omeprazole 20 MG CAPSULE.DR PO (06:52)
[2021-08-26 08:15] VITALS: BP 150/71; PULSE 104; RESP 18; TEMP 37.1; O2SAT 89
[2021-08-26] MEDS: Folic Acid 1 MG TABLET PO (08:29)
[2021-08-26] MEDS: oxyCODONE HCl ER 10 MG TAB.ER.12H PO (08:30)
[2021-08-26] MEDS: Sucralfate 1 GM TABLET PO (08:30)
--- NOTE | 2021-08-26 09:11 | MHC.CM.ED ---
Patient remains in ER. Anticipate patient will d/c to [facility] via BLS at noon. Continue to monitor for d/c needs.
[2021-08-26] MEDS: fluvoxaMINE Maleate 50 MG TABLET 100 MG PO (09:19)
[2021-08-26] MEDS: iohexoL 350 MG/ML 100 ML INFUS..BTL IV ×2 (09:22→09:23)
[2021-08-26 10:28] LABS: MANUAL DIFF FLAG NO
[2021-08-26 10:30] LABS: Basophils Percent Auto 0.6 % (0-2); Eosinophils Absolute Auto 0.3 X10*3/uL (0.0-0.4); Eosinophils Percent Auto 3.8 % (0-4); Hematocrit 31.5 % (42.0-52.0); Hemoglobin 9.4 g/dl (14.0-18.0); Imm Gran Abs Auto 0.05 X10*3/uL (0.00-0.03); Imm Gran Pct Auto 0.7 % (0.0-0.4); Lymphocytes Percent Auto 14.2 % (20-40); Mean Corpuscular HGB Conc 29.8 g/dl (31.0-36.0); Mean Corpuscular Hemoglobin 26.2 pg (27.0-33.0); Mean Corpuscular Volume 87.7 fL (80.0-98.0); Mean Platelet Volume 8.6 fL (9.4-12.4); Monocytes Absolute Auto 0.3 X10*3/uL (0.1-1.2); Neutrophils Absolute Auto 5.2 x10*3/uL (2.0-8.3); Neutrophils Percent Auto 76.7 % (45-73); Platelet Count 387 X10*3/uL (160-400); Red Blood Count 3.59 X10*6/uL (4.60-5.80); Red Cell Distribution Width 18.6 % (11.0-16.0); White Blood Count 6.8 X10*3/uL (4.8-10.8)
[2021-08-26 10:48] LABS: Alanine Aminotransferase 58 U/L (0-40); Albumin Level 2.9 g/dL (3.5-5.0); Alkaline Phosphatase 73 U/L (39-117); Anion Gap 13 (12-20); Aspartate Amino Transferase 38 U/L (5-37); Bilirubin Total 0.4 mg/dL (0.0-1.0); Blood Urea Nitrogen 4 mg/dL (9-16); Calcium 8.1 mg/dL (8.4-10.2); Carbon Dioxide 28 mmol/L (22-29); Chloride 101 mmol/L (96-108); Creatinine Clr Calc Pharmacy 183.8; Estimated Glomerular Filt Rate > 60; Glucose Random 104 mg/dL (60-115); Potassium 3.1 mmol/L (3.3-5.1); Sodium 139 mmol/L (135-145); Total Protein 5.1 g/dL (6.5-8.0)
[2021-08-26 10:53] LABS: B Type Natriuretic Peptide 59 pg/mL (<100)
[2021-08-26] MEDS: Potassium Chloride Packet 20 MEQ PACKET 40 MEQ PO (11:34)
--- NOTE | 2021-08-26 11:41 | PC.NURSE ---
call placed to pat rodriguez for report with no answer
--- NOTE | 2021-08-26 12:11 | PC.NURSE ---
second call placed to pat rodriguez to give report without answer
== END 2021-08-26 14:39 | disposition skilled nursing facility (03) ==
PROVIDERS: Nurse Practitioner Family; Physician Assistant Medical; Emergency Provider Emergency Medicine; PCP Internal Medicine
DX: R53.1 Weakness (principal); S50.812A Abrasion of left forearm, initial encounter; W01.0XXA Fall on same level from slipping, tripping and stumbling without subsequent striking against object, initial encounter; M25.512 Pain in left shoulder; M54.50 Low back pain, unspecified; E87.6 Hypokalemia; R60.0 Localized edema; D64.9 Anemia, unspecified; R00.0 Tachycardia, unspecified; R09.02 Hypoxemia; I45.10 Unspecified right bundle-branch block; Z20.822 Contact with and (suspected) exposure to COVID-19; E13.9 Other specified diabetes mellitus without complications; I11.0 Hypertensive heart disease with heart failure; I50.9 Heart failure, unspecified; K50.90 Crohn's disease, unspecified, without complications; Y93.9 Activity, unspecified; Y92.019 Unspecified place in single-family (private) house as the place of occurrence of the external cause; Y99.9 Unspecified external cause status; Z79.899 Other long term (current) drug therapy
CPT/HCPCS: 36415; 70450; 71275; 72072; 72100; 72125; 73030; 80048; 80053; 80307; 83880; 85025; 87635; 93005; 97162; 99285; Q9967

== ENCOUNTER 2021-08-27 07:17 | Outpatient (REF) | payer SELFPAY ==
[2021-08-27 07:22] LABS: MANUAL DIFF FLAG NO
[2021-08-27 08:03] LABS: Basophils Percent Auto 0.8 % (0-2); Eosinophils Absolute Auto 0.3 X10*3/uL (0.0-0.4); Eosinophils Percent Auto 4.9 % (0-4); Hematocrit 30.7 % (42.0-52.0); Hemoglobin 9.3 g/dl (14.0-18.0); Imm Gran Abs Auto 0.03 X10*3/uL (0.00-0.03); Imm Gran Pct Auto 0.6 % (0.0-0.4); Lymphocytes Absolute Auto 1.2 X10*3/uL (1.2-4.9); Lymphocytes Percent Auto 23.1 % (20-40); Mean Corpuscular HGB Conc 30.3 g/dl (31.0-36.0); Mean Corpuscular Hemoglobin 26.9 pg (27.0-33.0); Mean Corpuscular Volume 88.7 fL (80.0-98.0); Mean Platelet Volume 8.8 fL (9.4-12.4); Monocytes Absolute Auto 0.4 X10*3/uL (0.1-1.2); Monocytes Percent Auto 7.8 % (2-11); Neutrophils Absolute Auto 3.3 x10*3/uL (2.0-8.3); Neutrophils Percent Auto 62.8 % (45-73); Platelet Count 384 X10*3/uL (160-400); Red Blood Count 3.46 X10*6/uL (4.60-5.80); Red Cell Distribution Width 18.7 % (11.0-16.0); White Blood Count 5.3 X10*3/uL (4.8-10.8)
[2021-08-27 08:22] LABS: Alanine Aminotransferase 41 U/L (0-40); Albumin Level 2.8 g/dL (3.5-5.0); Alkaline Phosphatase 71 U/L (39-117); Anion Gap 15 (12-20); Aspartate Amino Transferase 22 U/L (5-37); Bilirubin Total 0.6 mg/dL (0.0-1.0); Blood Urea Nitrogen 3 mg/dL (9-16); Calcium 8.1 mg/dL (8.4-10.2); Carbon Dioxide 30 mmol/L (22-29); Chloride 101 mmol/L (96-108); Estimated Glomerular Filt Rate > 60; Glucose Random 88 mg/dL (60-115); Potassium 3.4 mmol/L (3.3-5.1); Sodium 143 mmol/L (135-145)
== END 2021-08-27 07:18 | disposition home or self-care (01) ==
LOC: HO.MMNH1L 07:17
PROVIDERS: Visit Provider Family Medicine
DX: K50.90 Crohn's disease, unspecified, without complications (principal); F41.9 Anxiety disorder, unspecified; I50.9 Heart failure, unspecified
CPT/HCPCS: 36415; 80053; 85025

== ENCOUNTER 2021-09-25 13:51 | Emergency (ER) | payer MEDICARE, MEDICAID, SELFPAY ==
[2021-09-25 14:29] VITALS: BP 109/82; BP 154/91; PULSE 107; PULSE 115; RESP 18; TEMP 36.8; O2SAT 96; O2SAT 97; BMI 25.7
== END 2021-09-25 20:50 | disposition left against medical advice (07) ==
LOC: HO.ED 20:50
PROVIDERS: Emergency Provider Emergency Medicine
DX: M79.602 Pain in left arm (principal); M79.89 Other specified soft tissue disorders
CPT/HCPCS: 99281; 99282

== ENCOUNTER 2021-11-15 10:57 | Inpatient (IN) | payer MEDICARE, MEDICAID, SELFPAY ==
--- NOTE | ~2021-11-15 | XR_ITS ---
EXAMINATION: XR CHEST CLINICAL INFORMATION: Hypoglycemia and fall COMPARISON: CT angiogram chest 08/26/2021, chest radiograph 08/09/2021 TECHNIQUE: Frontal view of the chest was obtained. XR/XR chest 1V FINDINGS IMPRESSION: Again noted is an elevated right hemidiaphragm with bilateral volume loss. Compared to the prior study patchy infiltrates in the left upper lobe appear significantly improved. However, bilateral ill-defined airspace opacities persist. On the prior CT scan, these findings were felt to represent the residua of Covid pneumonia.
--- NOTE | ~2021-11-15 | CT_ITS ---
EXAMINATION: CT HEAD WITHOUT CONTRAST CLINICAL INFORMATION: Hypoglycemia COMPARISON: CT head from 08/24/2021 TECHNIQUE: Contiguous axial imaging was performed from the skull base to vertex without intravenous administration of contrast. This CT examination was performed using dose optimization techniques as appropriate, variously including the following: *Automated exposure control *Adjustment of mA and/or kV according to patient size (this includes techniques or standardized protocols for targeted exams where dose is matched to indication/reason for exam; i.e. extremities or head) *Use of iterative reconstruction technique DLP: 1507 mGy-cm FINDINGS: There is no evidence of acute intracranial hemorrhage or territorial infarction. No abnormal mass effect or midline shift is seen. Hall to white matter differentiation is well preserved. No extra-axial fluid collections are identified. The ventricles are normal in size. There is no abnormal attenuation within the brain parenchyma. The osseous structures and soft tissues are normal. Mucoperiosteal thickening of the maxillary sinuses. The mastoid air cells and visualized portions of the paranasal sinuses are well aerated. CT/CT cervical spine wo con IMPRESSION: No acute intracranial pathology. EXAMINATION: Noncontrast CT scan of the cervical spine. INDICATION: Neck injury COMPARISON: CT cervical spine from 08/24/2021 TECHNIQUE: Helical, multidetector axial images were obtained from the occiput to the upper thorax. Coronal and sagittal reformats of the cervical spine were provided for interpretation. DLP: 1507 mGy-cm FINDINGS: No acute fractures or dislocations of the cervical spine are seen. Multilevel degenerative changes with disc space narrowing, osteophyte formation, and facet arthropathy. Anatomic alignment and positioning of the vertebral bodies and posterior elements is noted. The atlantoaxial joint and craniovertebral articulations are normal without evidence of subluxation. There is no prevertebral soft tissue swelling. The thyroid gland and visualized portions of the lung apices and mediastinum are unremarkable. IMPRESSION: 1. No acute visible fracture or dislocation. 2. Multilevel degenerative changes.
--- NOTE | 2021-11-15 11:06 | ECG_ITS ---
Test Reason : fall Blood Pressure : / mmHG Vent. Rate : 099 BPM Atrial Rate : 099 BPM P-R Int : 142 ms QRS Dur : 132 ms QT Int : 394 ms P-R-T Axes : 037 -36 025 degrees QTc Int : 505 ms Normal sinus rhythm Left axis deviation Right bundle branch block Abnormal ECG When compared with ECG of 25-AUG-2021 00:53, No significant change was found Referred By: Shelby Hall Electronically Signed By:RUFINA RODRIGUEZ
[2021-11-15 11:08] VITALS: BP 154/83; PULSE 111; RESP 18; TEMP 36.4; O2SAT 94; BMI 41.8
--- NOTE | 2021-11-15 11:16 | ED_ITS ---
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 EMS arrived and found that the patient's blood sugar was 11 and gave him PO Glucose. Patient became alert. Reports that last night he ate some ice cream and took his glyburide and this morning he ate a piece of toast and some eggs and also drinks some water although he did not check his blood sugar and drink his glyburide. He denies any symptoms at this time. He reports this has never happened in the past. He denies any fevers, chills, dizziness, headaches, neck pain/stiffness, trouble swallowing or breathing, change in vision, cough, sore throat, loss of taste or smell, chest pain or shortness of breath, dyspnea on exertion, palpitations, orthopnea, paresthesias, nausea/vomiting/diarrhea constipation, black or bloody stools, dysuria, hematuria, abnormal penile discharge, rashes, recent travel or sick contacts, focal or general weakness or any other symptoms complaints or concerns at this time. 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) Fall from: standing Place fall occurred: home Loss of consciousness: unsure Prolonged down time: unclear Context: other (Low blood sugar EMS reports was at 11 for poc) Associated symptoms (after fall): confusion (Reports he does not know what happened) Related Data Home Medications Medication Instructions Recorded Confirmed folic acid 1 mg tablet 1 mg PO DAILY 02/14/21 11/15/21 hydroxyzine pamoate 50 mg capsule 100 mg PO BEDTIME PRN Anxiety 04/02/21 11/15/21 ustekinumab 90 mg/mL subcutaneous 90 mg subcut Q8W 04/02/21 11/15/21 syringe ([facility]) methotrexate sodium 2.5 mg tablet 25 mg PO TU 05/15/21 11/15/21 melatonin 5 mg tablet 2 tab PO BEDTIME PRN Sleep 08/24/21 11/15/21 Previous Rx's Medication Instructions Recorded sucralfate 1 gram tablet 1 g PO BID #180 tabs 05/17/21 omeprazole 20 mg capsule,delayed 20 mg PO DAILY #30 caps 06/03/21 release calcium carbonate 650 mg calcium 650 mg PO DAILY #30 tabs 07/19/21 (1,625 mg) tablet fluvoxamine 50 mg tablet 100 mg PO BID #60 tabs 07/19/21 commode #1 ea 08/21/21 tamsulosin 0.4 mg capsule 0.4 mg PO BEDTIME #30 caps 08/21/21 tapentadol 50 mg tablet,extended 50 mg PO DAILY #30 tabs 08/24/21 release,12 hr ([facility]) Allergies Allergy/AdvReac Type Severity Reaction Status Date / Time none Allergy Unknown Unknown Uncoded 04/02/21 16:05 Review of Systems Review of Systems: Constitutional : No Weight loss, No Fever, No Chills, No Night Sweats, No Fatigue, No Malaise ENT/Mouth : No Hearing loss, No Ear Pain, No Nasal Congestion, No Sinus Pain, No Hoarseness, No sore throat, No Rhinorrhea, No Swallowing Difficulty Eyes: No Eye Pain, No Swelling, No Redness, No Foreign Body, No Discharge, No Vision Changes Cardiovascular : No Chest Pain, No SOB, No Dyspnea on Exertion, No Orthopnea, No Edema, No Palpitations Respiratory : No Cough, No Sputum, No Wheezing, No Smoke Exposure, No Dyspnea Gastrointestinal : No Nausea, No Vomiting, No Diarrhea, No Constipation, No abdominal Pain, No Hematochezia, No Melena Genitourinary : no irregular bleeding, No Dysuria, No Urinary Frequency, No Hematuria, No Urinary Incontinence, No Urgency, No Flank Pain, No Urinary Flow Changes, No Hesitancy Musculoskeletal : No joint pain, No Myalgias, No Joint Swelling Skin : No Skin Lesions, No rash Neuro : + fall c head injury, No Weakness, No Numbness, No Paresthesias, No Loss of Consciousness, No Dizziness, No Headache Psych : No Anxiety/Panic, No Depression, No SI/HI/AH/VH, No Social Issues, Heme/Lymph: No Bruising, No Bleeding,No Lymphadenopathy Endocrine : + low blood sugar, No Polyuria, No Polydipsia, No Temperature Intolerance Yes all other systems are reviewed and are negative [facility] Past Medical History Attestation statement: The following information was validated with the patient. Source: old records reviewed and nursing notes reviewed Medical History (Updated 11/15/21 @ 17:11 by Chaitanya Kessler DO) Acute promyelocytic leukemia (~08/2016) Acute respiratory distress syndrome (ARDS) Anemia Anxiety Asthma Mayda tropicalis infection CHF (congestive heart failure) Chronic idiopathic constipation Colitis (~2002) Crohn disease (~2002) Depression Diabetes 1.5, managed as type 1 Diarrhea Elevated serum glutamic pyruvic transaminase (SGPT) level SAM (generalized anxiety disorder) History of subarachnoid hemorrhage (~08/2016) Hypertension Hypoxia IBD (inflammatory bowel disease) Kidney disease Left sided abdominal pain Morbid obesity Normocytic anemia Pneumomediastinum Pneumonia due to COVID-19 virus (~06/2021) Renal stones 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) Surgical History History of bone marrow biopsy (~2016) History of cholecystectomy (~2011) History of colonoscopy (~2020) History of esophagogastroduodenoscopy (EGD) (~2020) History of hemorrhoidectomy (~2003) History of lithotripsy (~2017) History of rectal sphincterotomy (~2003) History of right knee surgery (~2016) History of surgery on right wrist (~2006) Social History Social History Household Members: Family Housing: Apartment Do you presently have visiting nurse or other home services: No Alcohol intake: current Alcohol intake frequency: does not drink Patient Tobacco Use Status: Never used Tobacco e-Cigarette/Vaping Use: Never Used Second Hand Smoke Exposure: No Advance Directives: Yes Advance Directives on File: Yes Advance Directives Date on File: 04/04/21 service: No Current occupational status: disabled Physical Exam Vital Signs: Vital Signs: Last Vital Signs Temp 97.9 F 11/15/21 16:48 Pulse 109 H 11/15/21 16:48 Resp 20 11/15/21 16:48 BP 149/88 H 11/15/21 16:48 Pulse Ox 93 11/15/21 16:48 O2 Del Method 11/15/21 16:48 BMI result Body Mass Index 41.8 Vital signs have been reviewed as normal and appeared to be correct. Blood pressure 154/83. Heart rate 111. Respiration rate normal. Temperature normal. Oxygen saturation normal. Appearance: Alert. Oriented X3. No acute distress. Head: Normal external exam. Normocephalic. Atraumatic. Able to rotate head bilaterally. No Mejia signs. No raccoon eyes noted. Eyes: PERRLA. EOMI. No nystagmus noted. Conjunctiva and sclera normal. Eyelids normal. Corneal reflex normal. ENT: EAC normal. TM's Normal. Hearing normal. Pharynx normal. Uvula midline. tongue midline. Moist mucous membranes. No trismus noted. No drooling noted. No muffled voice noted. No nystagmus noted. Neck: C-collar in place. Will not remove. No signs of trauma to the neck. No mid cervical tenderness step-offs or deformities noted. Normal inspection. Neck supple. FROM. No adenopathy. Trachea midline. Thyroid Normal. No meningeal signs. No neck mass noted. Patient neuro intact bilateral and distally on all 4 extremities. Reflexes intact bilaterally and distally in all 4 extremities. CVS: Normal heart rate and rhythm. Heart sound normal. No murmurs noted. Pulses normal throughout. Respiratory: No respiratory distress. Painless inspiration. Breath sounds normal. No wheezes/rales/rhonchi noted. Chest nontender. No accessory muscle usage noted or decreased air movement noted. Abdomen: Soft and nontender. Bowel sounds normal in all 4 quadrants. No distention noted. No organomegaly noted. No visible injury noted. Back: No CVA tenderness. Full range of motion noted. Skin: Skin warm and dry. Normal skin color. Normal skin turgor. No rashes/lesions/lacerations noted. Extremities: No lower extremity edema. Extremities exhibit normal range of motion. Extremities nontender. Able to shrug shoulders bilaterally and keep up against resistance. Neuro: Oriented X 3. No motor deficit. No sensory deficit. Reflexes normal. Moving all extremities. No focal motor deficits. Cranial nerves II-XI intact bilaterally. Facial strength normal. Normal cognition. Speech normal. Gait n ormal. Strength 5/5 throughout. No pronator drift. No tremor noted. No fasciculations noted. No rigidity noted. Muscle tone normal throughout. No asterixis noted. [id number] test normal. Heel to helms test normal. Tandem gait normal. Does not sway with eyes open. Romberg test negative. Rapid a lternating movement upper extremity normal. Rapid alternating movement lower extremity normal. Hand drop from overhead Misses face. NIHSS score 0. 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 EMS arrived and found that the patient's blood sugar was 11 and gave him 1 PO glucose. Patient became alert. Reports that last night he ate some ice cream and took his glyburide and this morning he ate a piece of toast and some eggs and also drinks some water although he did not check his blood sugar and drink his glyburide. He denies any symptoms at this time. Plan: Labs, EKG, CT scan of brain/cervical spine, UA, drugs of abuse screen, VBG, COVID swab, influenza swab, obtain POC level every hour of at least 8-10 hours. Provide another amp of dextrose and re-evaluate. Reevaluation(s) Reevaluation #1: - labs reviewed patient mild baseline anemia similar compared to prior. - Chronic low platelet count at 417. - Anion gap 11. - Otherwise all other labs are within normal limits. - UA revealed 100 glucose and +1 blood otherwise no evidence of UTI. - Patient negative for COVID and flu. - Patient negative for EtOH. - Patient positive for cocaine negative for all other drugs. - patient's blood glucose level dropped again to 49 despite receiving 2 amp's of Dextrose therefore at this time will place on a dextrose drip with IV fluids and plan to admit due to patient reports he last took his glyburide this morning. Patient understands agrees with this plan. Time: 12:28 Reevaluation #2: - CT scan of brain/cervical spine revealed chronic changes no acute processes noted. At this time patient has received 3 total amps of dextrose and is currently on a dextrose drip with IV fluids. Patient will be admitted to Dr. Agosto for hypoglycemia due to glyburide last took this morning at 07:00. Patient understands agrees with this plan. Time: 15:05 Reevaluation #3: - Point of care still low at 43 therefore patient will be on D10W at 75/hr recommended by Dr. Michaels. Dr. Kessler to admit at this time. - chest x-ray revealed right elevated hemo diaphragm with bilateral Valium loss and compared to previous study patchy infiltrates in the left upper lobe significantly improved however bilateral ill-defined airspace opacities persistent which were felt to represent residual COVID pneumonia. Although at this time we do not believe the patient is septic due to he does not have an el evated white blood cell count and is afebrile and not tachypneic. Time: 16:38 MDM - Fall Medical Records Attestation: I reviewed the patient's medical records. Lab Data Attestation: I reviewed the patient's lab results. Result diagrams: 11/15/21 11:58 11/15/21 17:00 Labs: Lab Results 11/15/21 11/15/21 11/15/21 Range/Units 11:01 11:17 11:52 WBC (4.8-10.8) X10*3/uL RBC (4.60-5.80) X10*6/uL Hgb (14.0-18.0) g/dl Hct (42.0-52.0) % MCV (80.0-98.0) fL MCH (27.0-33.0) pg MCHC (31.0-36.0) g/dl RDW (11.0-16.0) % Plt Count (160-400) X10*3/uL MPV (9.4-12.4) fL Immature Gran % (Auto) (0.0-0.4) % Neut % (Auto) (45-73) % Lymph % (Auto) (20-40) % [place] % (Auto) (2-11) % Eos % (Auto) (0-4) % Baso % (Auto) (0-2) % Lymph # (Auto) (1.2-4.9) X10*3/uL [place] # (Auto) (0.1-1.2) X10*3/uL Eos # (Auto) (0.0-0.4) X10*3/uL Baso # (Auto) (0.0-0.2) X10*3/uL Abs Immat Gran (auto) (0.00-0.03) X10*3/uL Absolute Neuts (auto) (2.0-8.3) x10*3/uL Absolute Nucleated RBC (0.0-0.012) X10*3/uL Nucleated RBC % (auto) (0.0-0.2) /100WBC PT (9.9-13.0) SEC INR (0.9-1.1) VBG pH (7.32-7.43) VBG pCO2 mmHg VBG pO2 mmHg VBG HCO3 (22-26) mmol/L VBG O2 Saturation % VBG Base Excess mmol/L Sodium (135-145) mmol/L Potassium (3.3-5.1) mmol/L Chloride (96-108) mmol/L Carbon Dioxide (22-29) mmol/L Anion Gap (12-20) BUN (9-16) mg/dL Creatinine (0.5-1.4) mg/dL Estim Creat Clear Calc Estimated GFR POC Glucose 11 L* 89 (60-115) mg/dL Random Glucose (60-115) mg/dL Calcium (8.4-10.2) mg/dL Magnesium (1.6-2.6) mg/dL Total Bilirubin (0.0-1.0) mg/dL AST (5-37) U/L ALT (0-40) U/L Alkaline Phosphatase (39-117) U/L Total Creatine Kinase (38-174) U/L Troponin I High Sens (<3.5-35.0) ng/L Total Protein (6.5-8.0) g/dL Albumin (3.5-5.0) g/dL Urine Color Urine Appearance Urine pH (5.0-8.0) Ur Specific [place] (1.005-1.025) Urine Protein (NEG-TRACE) MG/DL Urine Glucose (UA) (NEG) MG/DL Urine Ketones (NEG) MG/DL Urine Blood (NEG) Urine Nitrite (NEG) Ur Leukocyte Esterase (NEG) Urine RBC (0) /HPF Urine WBC (0-4) /HPF Ur Squamous Epith Cells /LPF Urine Bacteria /LPF Urine Opiates Screen Not Detected (Not Detect) Urine Fentanyl Screen Not Detected (Not Detect) Ur Barbiturates Screen Not Detected (Not Detect) Ur Phencyclidine Scrn Not Detected (Not Detect) Ur Amphetamines Screen Not Detected (Not Detect) U Benzodiazepines Scrn Not Detected (Not Detect) Urine Cocaine Screen POSITIVE H (Not Detect) U Marijuana (THC) Screen Not Detected (Not Detect) Ethyl Alcohol mg/dL COVID-19 (KRISTOPHER) (Negative) COVID-19 Clin Com Influenza Type A (NICKY) (Negative) Influenza Type B (NICKY) (Negative) Influenza A & B Note 11/15/21 11/15/21 11/15/21 Range/Units 11:53 11:53 11:54 WBC (4.8-10.8) X10*3/uL RBC (4.60-5.80) X10*6/uL Hgb (14.0-18.0) g/dl Hct (42.0-52.0) % MCV (80.0-98.0) fL MCH (27.0-33.0) pg MCHC (31.0-36.0) g/dl RDW (11.0-16.0) % Plt Count (160-400) X10*3/uL MPV (9.4-12.4) fL Immature Gran % (Auto) (0.0-0.4) % Neut % (Auto) (45-73) % Lymph % (Auto) (20-40) % [place] % (Auto) (2-11) % Eos % (Auto) (0-4) % Baso % (Auto) (0-2) % Lymph # (Auto) (1.2-4.9) X10*3/uL [place] # (Auto) (0.1-1.2) X10*3/uL Eos # (Auto) (0.0-0.4) X10*3/uL Baso # (Auto) (0.0-0.2) X10*3/uL Abs Immat Gran (auto) (0.00-0.03) X10*3/uL Absolute Neuts (auto) (2.0-8.3) x10*3/uL Absolute Nucleated RBC (0.0-0.012) X10*3/uL Nucleated RBC % (auto) (0.0-0.2) /100WBC PT (9.9-13.0) SEC INR (0.9-1.1) VBG pH (7.32-7.43) VBG pCO2 mmHg VBG pO2 mmHg VBG HCO3 (22-26) mmol/L VBG O2 Saturation % VBG Base Excess mmol/L Sodium (135-145) mmol/L Potassium (3.3-5.1) mmol/L Chloride (96-108) mmol/L Carbon Dioxide (22-29) mmol/L Anion Gap (12-20) BUN (9-16) mg/dL Creatinine (0.5-1.4) mg/dL Estim Creat Clear Calc Estimated GFR POC Glucose (60-115) mg/dL Random Glucose (60-115) mg/dL Calcium (8.4-10.2) mg/dL Magnesium (1.6-2.6) mg/dL Total Bilirubin (0.0-1.0) mg/dL AST (5-37) U/L ALT (0-40) U/L Alkaline Phosphatase (39-117) U/L Total Creatine Kinase (38-174) U/L Troponin I High Sens (<3.5-35.0) ng/L Total Protein (6.5-8.0) g/dL Albumin (3.5-5.0) g/dL Urine Color YELLOW Urine Appearance CLEAR Urine pH 6.0 (5.0-8.0) Ur Specific [place] 1.020 (1.005-1.025) Urine Protein NEG (NEG-TRACE) MG/DL Urine Glucose (UA) 100 H (NEG) MG/DL Urine Ketones NEG (NEG) MG/DL Urine Blood 1+ H (NEG) Urine Nitrite NEG (NEG) Ur Leukocyte Esterase NEG (NEG) Urine RBC 1-4 (0) /HPF Urine WBC 1-4 (0-4) /HPF Ur Squamous Epith Cells 1+ /LPF Urine Bacteria NONE /LPF Urine Opiates Screen (Not Detect) Urine Fentanyl Screen (Not Detect) Ur Barbiturates Screen (Not Detect) Ur Phencyclidine Scrn (Not Detect) Ur Amphetamines Screen (Not Detect) U Benzodiazepines Scrn (Not Detect) Urine Cocaine Screen (Not Detect) U Marijuana (THC) Screen (Not Detect) Ethyl Alcohol mg/dL COVID-19 (KRISTOPHER) Negative (Negative) COVID-19 Clin Com See Note Influenza Type A (NICKY) Negative (Negative) Influenza Type B (NICKY) Negative (Negative) Influenza A & B Note See Note 11/15/21 11/15/21 11/15/21 Range/Units 11:58 11:58 11:58 WBC 8.3 (4.8-10.8) X10*3/uL RBC 3.57 L (4.60-5.80) X10*6/uL Hgb 9.3 L (14.0-18.0) g/dl Hct 31.0 L (42.0-52.0) % MCV 86.8 (80.0-98.0) fL MCH 26.1 L (27.0-33.0) pg MCHC 30.0 L (31.0-36.0) g/dl RDW 18.2 H (11.0-16.0) % Plt Count 417 H (160-400) X10*3/uL MPV 9.1 L (9.4-12.4) fL Immature Gran % (Auto) 0.4 (0.0-0.4) % Neut % (Auto) 87.8 H (45-73) % Lymph % (Auto) 6.9 L (20-40) % [place] % (Auto) 4.3 (2-11) % Eos % (Auto) 0.2 (0-4) % Baso % (Auto) 0.4 (0-2) % Lymph # (Auto) 0.6 L (1.2-4.9) X10*3/uL [place] # (Auto) 0.4 (0.1-1.2) X10*3/uL Eos # (Auto) 0.0 (0.0-0.4) X10*3/uL Baso # (Auto) 0.0 (0.0-0.2) X10*3/uL Abs Immat Gran (auto) 0.03 (0.00-0.03) X10*3/uL Absolute Neuts (auto) 7.3 (2.0-8.3) x10*3/uL Absolute Nucleated RBC 0.000 (0.0-0.012) X10*3/uL Nucleated RBC % (auto) 0.0 (0.0-0.2) /100WBC PT 12.1 (9.9-13.0) SEC INR 1.1 (0.9-1.1) VBG pH (7.32-7.43) VBG pCO2 mmHg VBG pO2 mmHg VBG HCO3 (22-26) mmol/L VBG O2 Saturation % VBG Base Excess mmol/L Sodium 140 (135-145) mmol/L Potassium 3.9 D (3.3-5.1) mmol/L Chloride 104 (96-108) mmol/L Carbon Dioxide 29 (22-29) mmol/L Anion Gap 11 L (12-20) BUN 13 D (9-16) mg/dL Creatinine 0.63 (0.5-1.4) mg/dL Estim Creat Clear Calc 116.8 Estimated GFR > 60 POC Glucose (60-115) mg/dL Random Glucose 89 (60-115) mg/dL Calcium 9.0 D (8.4-10.2) mg/dL Magnesium 1.9 (1.6-2.6) mg/dL Total Bilirubin 0.3 (0.0-1.0) mg/dL AST 20 (5-37) U/L ALT 10 (0-40) U/L Alkaline Phosphatase 81 (39-117) U/L Total Creatine Kinase (38-174) U/L Troponin I High Sens (<3.5-35.0) ng/L Total Protein 6.6 D (6.5-8.0) g/dL Albumin 3.5 D (3.5-5.0) g/dL Urine Color Urine Appearance Urine pH (5.0-8.0) Ur Specific [place] (1.005-1.025) Urine Protein (NEG-TRACE) MG/DL Urine Glucose (UA) (NEG) MG/DL Urine Ketones (NEG) MG/DL Urine Blood (NEG) Urine Nitrite (NEG) Ur Leukocyte Esterase (NEG) Urine RBC (0) /HPF Urine WBC (0-4) /HPF Ur Squamous Epith Cells /LPF Urine Bacteria /LPF Urine Opiates Screen (Not Detect) Urine Fentanyl Screen (Not Detect) Ur Barbiturates Screen (Not Detect) Ur Phencyclidine Scrn (Not Detect) Ur Amphetamines Screen (Not Detect) U Benzodiazepines Scrn (Not Detect) Urine Cocaine Screen (Not Detect) U Marijuana (THC) Screen (Not Detect) Ethyl Alcohol mg/dL COVID-19 (KRISTOPHER) (Negative) COVID-19 Clin Com Influenza Type A (NICKY) (Negative) Influenza Type B (NICKY) (Negative) Influenza A & B Note 11/15/21 11/15/21 11/15/21 Range/Units 11:58 11:58 11:58 WBC (4.8-10.8) X10*3/uL RBC (4.60-5.80) X10*6/uL Hgb (14.0-18.0) g/dl Hct (42.0-52.0) % MCV (80.0-98.0) fL MCH (27.0-33.0) pg MCHC (31.0-36.0) g/dl RDW (11.0-16.0) % Plt Count (160-400) X10*3/uL MPV (9.4-12.4) fL Immature Gran % (Auto) (0.0-0.4) % Neut % (Auto) (45-73) % Lymph % (Auto) (20-40) % [place] % (Auto) (2-11) % Eos % (Auto) (0-4) % Baso % (Auto) (0-2) % Lymph # (Auto) (1.2-4.9) X10*3/uL [place] # (Auto) (0.1-1.2) X10*3/uL Eos # (Auto) (0.0-0.4) X10*3/uL Baso # (Auto) (0.0-0.2) X10*3/uL Abs Immat Gran (auto) (0.00-0.03) X10*3/uL Absolute Neuts (auto) (2.0-8.3) x10*3/uL Absolute Nucleated RBC (0.0-0.012) X10*3/uL Nucleated RBC % (auto) (0.0-0.2) /100WBC PT (9.9-13.0) SEC INR (0.9-1.1) VBG pH (7.32-7.43) VBG pCO2 mmHg VBG pO2 mmHg VBG HCO3 (22-26) mmol/L VBG O2 Saturation % VBG Base Excess mmol/L Sodium (135-145) mmol/L Potassium (3.3-5.1) mmol/L Chloride (96-108) mmol/L Carbon Dioxide (22-29) mmol/L Anion Gap (12-20) BUN (9-16) mg/dL Creatinine (0.5-1.4) mg/dL Estim Creat Clear Calc Estimated GFR POC Glucose (60-115) mg/dL Random Glucose (60-115) mg/dL Calcium (8.4-10.2) mg/dL Magnesium (1.6-2.6) mg/dL Total Bilirubin (0.0-1.0) mg/dL AST (5-37) U/L ALT (0-40) U/L Alkaline Phosphatase (39-117) U/L Total Creatine Kinase 90 D (38-174) U/L Troponin I High Sens 4.3 D (<3.5-35.0) ng/L Total Protein (6.5-8.0) g/dL Albumin (3.5-5.0) g/dL Urine Color Urine Appearance Urine pH (5.0-8.0) Ur Specific [place] (1.005-1.025) Urine Protein (NEG-TRACE) MG/DL Urine Glucose (UA) (NEG) MG/DL Urine Ketones (NEG) MG/DL Urine Blood (NEG) Urine Nitrite (NEG) Ur Leukocyte Esterase (NEG) Urine RBC (0) /HPF Urine WBC (0-4) /HPF Ur Squamous Epith Cells /LPF Urine Bacteria /LPF Urine Opiates Screen (Not Detect) Urine Fentanyl Screen (Not Detect) Ur Barbiturates Screen (Not Detect) Ur Phencyclidine Scrn (Not Detect) Ur Amphetamines Screen (Not Detect) U Benzodiazepines Scrn (Not Detect) Urine Cocaine Screen (Not Detect) U Marijuana (THC) Screen (Not Detect) Ethyl Alcohol < 10 mg/dL COVID-19 (KRISTOPHER) (Negative) COVID-19 Clin Com Influenza Type A (NICKY) (Negative) Influenza Type B (NICKY) (Negative) Influenza A & B Note 11/15/21 11/15/21 11/15/21 Range/Units 11:59 12:19 12:42 WBC (4.8-10.8) X10*3/uL RBC (4.60-5.80) X10*6/uL Hgb (14.0-18.0) g/dl Hct (42.0-52.0) % MCV (80.0-98.0) fL MCH (27.0-33.0) pg MCHC (31.0-36.0) g/dl RDW (11.0-16.0) % Plt Count (160-400) X10*3/uL MPV (9.4-12.4) fL Immature Gran % (Auto) (0.0-0.4) % Neut % (Auto) (45-73) % Lymph % (Auto) (20-40) % [place] % (Auto) (2-11) % Eos % (Auto) (0-4) % Baso % (Auto) (0-2) % Lymph # (Auto) (1.2-4.9) X10*3/uL [place] # (Auto) (0.1-1.2) X10*3/uL Eos # (Auto) (0.0-0.4) X10*3/uL Baso # (Auto) (0.0-0.2) X10*3/uL Abs Immat Gran (auto) (0.00-0.03) X10*3/uL Absolute Neuts (auto) (2.0-8.3) x10*3/uL Absolute Nucleated RBC (0.0-0.012) X10*3/uL Nucleated RBC % (auto) (0.0-0.2) /100WBC PT (9.9-13.0) SEC INR (0.9-1.1) VBG pH 7.34 (7.32-7.43) VBG pCO2 59 mmHg VBG pO2 59 mmHg VBG HCO3 32 H (22-26) mmol/L VBG O2 Saturation 83.0 % VBG Base Excess 5.5 mmol/L Sodium (135-145) mmol/L Potassium (3.3-5.1) mmol/L Chloride (96-108) mmol/L Carbon Dioxide (22-29) mmol/L Anion Gap (12-20) BUN (9-16) mg/dL Creatinine (0.5-1.4) mg/dL Estim Creat Clear Calc Estimated GFR POC Glucose 46 L* 75 (60-115) mg/dL Random Glucose (60-115) mg/dL Calcium (8.4-10.2) mg/dL Magnesium (1.6-2.6) mg/dL Total Bilirubin (0.0-1.0) mg/dL AST (5-37) U/L ALT (0-40) U/L Alkaline Phosphatase (39-117) U/L Total Creatine Kinase (38-174) U/L Troponin I High Sens (<3.5-35.0) ng/L Total Protein (6.5-8.0) g/dL Albumin (3.5-5.0) g/dL Urine Color Urine Appearance Urine pH (5.0-8.0) Ur Specific [place] (1.005-1.025) Urine Protein (NEG-TRACE) MG/DL Urine Glucose (UA) (NEG) MG/DL Urine Ketones (NEG) MG/DL Urine Blood (NEG) Urine Nitrite (NEG) Ur Leukocyte Esterase (NEG) Urine RBC (0) /HPF Urine WBC (0-4) /HPF Ur Squamous Epith Cells /LPF Urine Bacteria /LPF Urine Opiates Screen (Not Detect) Urine Fentanyl Screen (Not Detect) Ur Barbiturates Screen (Not Detect) Ur Phencyclidine Scrn (Not Detect) Ur Amphetamines Screen (Not Detect) U Benzodiazepines Scrn (Not Detect) Urine Cocaine Screen (Not Detect) U Marijuana (THC) Screen (Not Detect) Ethyl Alcohol mg/dL COVID-19 (KRISTOPHER) (Negative) COVID-19 Clin Com Influenza Type A (NICKY) (Negative) Influenza Type B (NICKY) (Negative) Influenza A & B Note 11/15/21 11/15/21 Range/Units 13:16 14:05 WBC (4.8-10.8) X10*3/uL RBC (4.60-5.80) X10*6/uL Hgb (14.0-18.0) g/dl Hct (42.0-52.0) % MCV (80.0-98.0) fL MCH (27.0-33.0) pg MCHC (31.0-36.0) g/dl RDW (11.0-16.0) % Plt Count (160-400) X10*3/uL MPV (9.4-12.4) fL Immature Gran % (Auto) (0.0-0.4) % Neut % (Auto) (45-73) % Lymph % (Auto) (20-40) % [place] % (Auto) (2-11) % Eos % (Auto) (0-4) % Baso % (Auto) (0-2) % Lymph # (Auto) (1.2-4.9) X10*3/uL [place] # (Auto) (0.1-1.2) X10*3/uL Eos # (Auto) (0.0-0.4) X10*3/uL Baso # (Auto) (0.0-0.2) X10*3/uL Abs Immat Gran (auto) (0.00-0.03) X10*3/uL Absolute Neuts (auto) (2.0-8.3) x10*3/uL Absolute Nucleated RBC (0.0-0.012) X10*3/uL Nucleated RBC % (auto) (0.0-0.2) /100WBC PT (9.9-13.0) SEC INR (0.9-1.1) VBG pH (7.32-7.43) VBG pCO2 mmHg VBG pO2 mmHg VBG HCO3 (22-26) mmol/L VBG O2 Saturation % VBG Base Excess mmol/L Sodium (135-145) mmol/L Potassium (3.3-5.1) mmol/L Chloride (96-108) mmol/L Carbon Dioxide (22-29) mmol/L Anion Gap (12-20) BUN (9-16) mg/dL Creatinine (0.5-1.4) mg/dL Estim Creat Clear Calc Estimated GFR POC Glucose 52 L* 61 (60-115) mg/dL Random Glucose (60-115) mg/dL Calcium (8.4-10.2) mg/dL Magnesium (1.6-2.6) mg/dL Total Bilirubin (0.0-1.0) mg/dL AST (5-37) U/L ALT (0-40) U/L Alkaline Phosphatase (39-117) U/L Total Creatine Kinase (38-174) U/L Troponin I High Sens (<3.5-35.0) ng/L Total Protein (6.5-8.0) g/dL Albumin (3.5-5.0) g/dL Urine Color Urine Appearance Urine pH (5.0-8.0) Ur Specific [place] (1.005-1.025) Urine Protein (NEG-TRACE) MG/DL Urine Glucose (UA) (NEG) MG/DL Urine Ketones (NEG) MG/DL Urine Blood (NEG) Urine Nitrite (NEG) Ur Leukocyte Esterase (NEG) Urine RBC (0) /HPF Urine WBC (0-4) /HPF Ur Squamous Epith Cells /LPF Urine Bacteria /LPF Urine Opiates Screen (Not Detect) Urine Fentanyl Screen (Not Detect) Ur Barbiturates Screen (Not Detect) Ur Phencyclidine Scrn (Not Detect) Ur Amphetamines Screen (Not Detect) U Benzodiazepines Scrn (Not Detect) Urine Cocaine Screen (Not Detect) U Marijuana (THC) Screen (Not Detect) Ethyl Alcohol mg/dL COVID-19 (KRISTOPHER) (Negative) COVID-19 Clin Com Influenza Type A (NICKY) (Negative) Influenza Type B (NICKY) (Negative) Influenza A & B Note Imaging Data Chest x-ray: Attestation: I personally reviewed and interpreted this imaging study as follows: Radiologist's impression: EXAMINATION: XR CHEST CLINICAL INFORMATION: Hypoglycemia and fall COMPARISON: CT angiogram chest 08/26/2021, chest radiograph 08/09/2021 TECHNIQUE: Frontal view of the chest was obtained. XR/XR chest 1V FINDINGS IMPRESSION: Again noted is an elevated right hemidiaphragm with bilateral volume loss. Compared to the prior study patchy infiltrates in the left upper lobe appear significantly improved. However, bilateral ill-defined airspace opacities persist. On the prior CT scan, these findings were felt to represent the residua of Covid pneumonia. CT scan of brain/cervical spine without contrast: Attestation: I personally reviewed and interpreted this imaging study as follows: Radiologist's impression: FINDINGS: No acute fractures or dislocations of the cervical spine are seen. Multilevel degenerative changes with disc space narrowing, osteophyte formation, and facet arthropathy. Anatomic alignment and positioning of the vertebral bodies and posterior elements is noted. The atlantoaxial joint and craniovertebral articulations are normal without evidence of subluxation. There is no prevertebral soft tissue swelling. ? The thyroid gland and visualized portions of the lung apices and mediastinum are unremarkable. ? IMPRESSION: 1.? No acute visible fracture or dislocation. 2.? Multilevel degenerative changes. ECG Data Attestation: I personally reviewed and interpreted this ECG as follows: ECG interpretation date: 11/15/21 Critical Care Time Critical Care Time Critical Care Time: Yes Total Critical Care Time: 60 Attestation: I personally attest to this time spent taking care of the patient Discharge Plan Discharge Clinical Impression: Fall, Hypoglycemia, Cocaine dependence Patient Disposition: Admitted As Inpatient
[2021-11-15] MEDS: Dextrose 50 % 25 GM/50 ML SYRINGE IVPUSH ×4 (11:19→16:47)
--- NOTE | 2021-11-15 11:19 | PC.NURSE ---
1115: POC 89
[2021-11-15 11:24] LABS: Glucose, Whole Blood 11 mg/dL (60-115)
[2021-11-15 11:24] LABS: Glucose, Whole Blood 89 mg/dL (60-115)
[2021-11-15 12:04] LABS: MANUAL DIFF FLAG NO
[2021-11-15 12:04] LABS: Appearance Urine CLEAR; Color Urine YELLOW; Glucose Urine UA 100 MG/DL (NEG); Leukocyte Esterase Urine NEG (NEG); Nitrite Urine NEG (NEG); UACC Culture Trigger NO; Urine Blood 1+ (NEG); Urine Ketones NEG (NEG); Urine Protein NEG (NEG-TRACE)
[2021-11-15 12:06] LABS: Venous Blood Gas Refer to POC result
[2021-11-15 12:07] LABS: VBG Base Excess 5.5 mmol/L; VBG HCO3 32 mmol/L (22-26); VBG pCO2 59 mmHg; VBG pH 7.34 (7.32-7.43); VBG pO2 59 mmHg
[2021-11-15 12:10] LABS: INTERNATIONAL NORM RATIO 1.1 (0.9-1.1); Prothrombin Time 12.1 SEC (9.9-13.0)
[2021-11-15 12:11] LABS: Basophils Percent Auto 0.4 % (0-2); Eosinophils Percent Auto 0.2 % (0-4); Hemoglobin 9.3 g/dl (14.0-18.0); Imm Gran Abs Auto 0.03 X10*3/uL (0.00-0.03); Imm Gran Pct Auto 0.4 % (0.0-0.4); Lymphocytes Absolute Auto 0.6 X10*3/uL (1.2-4.9); Lymphocytes Percent Auto 6.9 % (20-40); Mean Corpuscular Hemoglobin 26.1 pg (27.0-33.0); Mean Corpuscular Volume 86.8 fL (80.0-98.0); Mean Platelet Volume 9.1 fL (9.4-12.4); Monocytes Absolute Auto 0.4 X10*3/uL (0.1-1.2); Monocytes Percent Auto 4.3 % (2-11); Neutrophils Absolute Auto 7.3 x10*3/uL (2.0-8.3); Neutrophils Percent Auto 87.8 % (45-73); Platelet Count 417 X10*3/uL (160-400); Red Blood Count 3.57 X10*6/uL (4.60-5.80); Red Cell Distribution Width 18.2 % (11.0-16.0); White Blood Count 8.3 X10*3/uL (4.8-10.8)
[2021-11-15 12:12] LABS: Amphetamine Screen Urine Not Detected (Not Detect); Barbiturates, Urine Not Detected (Not Detect); Benzodiazepines Screen Urine Not Detected (Not Detect); Cannabinoid Screen Urine Not Detected (Not Detect); Cocaine Screen Urine POSITIVE (Not Detect); Fentanyl, urine Not Detected (Not Detect); Opiate Screen Urine Not Detected (Not Detect); Phencyclidine Screen Urine Not Detected (Not Detect)
[2021-11-15 12:13] LABS: COVID-19 Test Negative (Negative); IDNOW Serial# 16C4AD1C; IDNOW Serial# 9DB6401D; Influenza A Negative (Negative); Influenza B2 Negative (Negative)
[2021-11-15 12:21] LABS: Ethanol < 10 mg/dL
[2021-11-15 12:24] LABS: Alanine Aminotransferase 10 U/L (0-40); Albumin Level 3.5 g/dL (3.5-5.0); Alkaline Phosphatase 81 U/L (39-117); Anion Gap 11 (12-20); Aspartate Amino Transferase 20 U/L (5-37); Bilirubin Total 0.3 mg/dL (0.0-1.0); Blood Urea Nitrogen 13 mg/dL (9-16); Carbon Dioxide 29 mmol/L (22-29); Chloride 104 mmol/L (96-108); Creatinine Clr Calc Pharmacy 116.8; Estimated Glomerular Filt Rate > 60; Glucose Random 89 mg/dL (60-115); Magnesium 1.9 mg/dL (1.6-2.6); Potassium 3.9 mmol/L (3.3-5.1); Sodium 140 mmol/L (135-145); Total Protein 6.6 g/dL (6.5-8.0)
[2021-11-15 12:28] LABS: Troponin-I High Sensitivity 4.3 ng/L (<3.5-35.0)
[2021-11-15] MEDS: Dextrose 5 % and 0.45 % NaCl 1,000 ML 80 ML IVCONT (12:28)
[2021-11-15 12:39] VITALS: BP 139/86; PULSE 96; RESP 19; O2SAT 95
[2021-11-15 12:48] LABS: Glucose, Whole Blood 46 mg/dL (60-115)
[2021-11-15 12:48] LABS: Glucose, Whole Blood 75 mg/dL (60-115)
--- NOTE | 2021-11-15 12:55 | PHA.MEDREC ---
Pharmacy Consult ? Medication Reconciliation Pharmacy has completed the medication reconciliation.
[2021-11-15 13:22] LABS: Glucose, Whole Blood 52 mg/dL (60-115)
[2021-11-15 13:25] LABS: Squamous Epithelial Cell Urine 1+ /LPF
[2021-11-15 14:09] LABS: Glucose, Whole Blood 61 mg/dL (60-115)
[2021-11-15 16:16] LABS: Glucose, Whole Blood 16 mg/dL (60-115)
[2021-11-15 16:21] LABS: Glucose, Whole Blood 21 mg/dL (60-115)
[2021-11-15 16:48] VITALS: BP 149/88; PULSE 109; RESP 20; TEMP 36.6; O2SAT 93
[2021-11-15 16:59] LABS: Glucose, Whole Blood 43 mg/dL (60-115)
--- NOTE | 2021-11-15 17:02 | P.HPHOSP_ITS ---
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 EMS arrived and found that the patient's blood sugar was 11 and gave him PO Glucose.? Patient became alert.? Reports that last night he ate some ice cream and took his glyburide and this morning he ate a piece of toast and some eggs and also drinks some water although he did not check his blood sugar and drink his glyburide.? He denies any symptoms at this time.? He reports this has never happened in the past. ER: patient received 4 amps of D50 along with a dextrose drip with persistent hypoglycemia. Patient remains asymptomatic and is being fed at the present time. He be admitted serial sugars Review of Systems Review of Systems: denies chest pain Denies shortness of breath Denies nausea vomiting diarrhea Denies fever chills [facility] Medical History (Updated 11/15/21 @ 17:11 by Chaitanya Kessler DO) Acute promyelocytic leukemia (~08/2016) Acute respiratory distress syndrome (ARDS) Anemia Anxiety Asthma Mayda tropicalis infection CHF (congestive heart failure) Chronic idiopathic constipation Colitis (~2002) Crohn disease (~2002) Depression Diabetes 1.5, managed as type 1 Diarrhea Elevated serum glutamic pyruvic transaminase (SGPT) level ASM (generalized anxiety disorder) History of subarachnoid hemorrhage (~08/2016) Hypertension Hypoxia IBD (inflammatory bowel disease) Kidney disease Left sided abdominal pain Morbid obesity Normocytic anemia Pneumomediastinum Pneumonia due to COVID-19 virus (~06/2021) Renal stones 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) Surgical History History of bone marrow biopsy (~2016) History of cholecystectomy (~2011) History of colonoscopy (~2020) History of esophagogastroduodenoscopy (EGD) (~2020) History of hemorrhoidectomy (~2003) History of lithotripsy (~2017) History of rectal sphincterotomy (~2003) History of right knee surgery (~2016) History of surgery on right wrist (~2006) Social History Household Members: Family Housing: Apartment Do you presently have visiting nurse or other home services: No Alcohol intake: current Alcohol intake frequency: does not drink Patient Tobacco Use Status: Never used Tobacco e-Cigarette/Vaping Use: Never Used Second Hand Smoke Exposure: No Advance Directives: Yes Advance Directives on File: Yes Advance Directives Date on File: 04/04/21 service: No Current occupational status: disabled Meds Allergies Allergy/AdvReac Type Severity Reaction Status Date / Time none Allergy Unknown Unknown Uncoded 04/02/21 16:05 Active Medications: Current Medications Calcium Carbonate (Calcium Carbonate 500 Mg Tablet) 500 mg PO DAILY [facility] Dextrose (Dextrose 50 % 25 Gm/50 Ml Syringe) 25 gm IVPUSH Q15M PRN PRN Reason: per Hypoglycemia Standing Ord. Enoxaparin Sodium (Enoxaparin Sodium 40 Mg/0.4 Ml Syringe) 40 mg SUBCUT Q24H [facility] Fluvoxamine Maleate (Fluvoxamine Maleate 50 Mg Tablet) 100 mg PO BID [facility] Folic Acid (Folic Acid 1 Mg Tablet) 1 mg PO DAILY [facility] Hydroxyzine HCl (Hydroxyzine Hcl 50 Mg Tablet) 100 mg PO BEDTIME PRN PRN Reason: Anxiety Dextrose/Sodium Chloride (D51/2ns) 1,000 mls @ 150 mls/hr IVCONT .Q6H40M [facility] Last Infusion: 11/15/21 14:10 Dose: 150 mls/hr Dextrose (D10) 1,000 mls @ 75 mls/hr IVCONT .[id number] [facility] Melatonin (Melatonin 3 Mg Tablet) 9 mg PO BEDTIME PRN PRN Reason: Sleep Methotrexate (Methotrexate Sodium 2.5 Mg Tablet) 25 mg PO Tu@0900 [facility] Non-Formulary Medication (Tapentadol [Nucynta Er]) 50 mg PO DAILY [facility] Omeprazole (Omeprazole 20 Mg Capsule.Dr) 20 mg PO DAILY@0630 [facility] Pharmacy Consult (Consult Rx Perform Med Rec) 1 each MISCELLANE ONCE PRN PRN Reason: Consult order Sodium Chloride (0.9 % Sodium Chloride Flush 3 Ml Syringe) 3 ml IVFLUSH QSHIFT [facility] Sucralfate (Sucralfate 1 Gm Tablet) 1 gm PO BID [facility] Tamsulosin HCl (Tamsulosin Hcl 0.4 Mg Capsule) 0.4 mg PO BEDTIME [facility] Home Medications Medication Instructions Recorded Confirmed Last Taken Type folic acid 1 mg tablet 1 mg PO DAILY 02/14/21 11/15/21 08/24/21 History hydroxyzine pamoate 50 mg capsule 100 mg PO BEDTIME PRN Anxiety 04/02/21 11/15/21 05/14/21 History ustekinumab 90 mg/mL subcutaneous 90 mg subcut Q8W 04/02/21 11/15/21 08/13/21 History syringe (Stelara) methotrexate sodium 2.5 mg tablet 25 mg PO TU 05/15/21 11/15/21 08/21/21 History melatonin 5 mg tablet 2 tab PO BEDTIME PRN Sleep 08/24/21 11/15/21 Unknown History Physical Exam Vital Signs and Narrative: Vital Signs: Last Vital Signs Temp 97.9 F 11/15/21 16:48 Pulse 109 H 11/15/21 16:48 Resp 20 11/15/21 16:48 BP 149/88 H 11/15/21 16:48 Pulse Ox 93 11/15/21 16:48 O2 Del Method 11/15/21 16:48 BMI result Body Mass Index 41.8 Const: Other: awake alert oriented x3 no acute distress Resp: Other: clear to auscultation bilaterally no rales rhonchi or wheezes Cardio: Other: no S4; positive S1-S2; no S3 murmurs rubs or gallops GI: Other: soft nontender nondistended with normoactive bowel sounds Neuro: Other: cranial nerves 2-12 were grossly intact as tested. Motor is 5/5 all extremities. Sensation is intact. Cognition appropriate Extrem: Other: no edema bilaterally Results Labs CBC and Chem 7: 11/15/21 11:58 11/15/21 11:58 Labs: Laboratory Results - last 24 hr 11/15/21 11/15/21 11/15/21 11:01 11:17 11:52 MCV MCH MCHC RDW Plt Count MPV Immature Gran % (Auto) Neut % (Auto) Lymph % (Auto) [place] % (Auto) Eos % (Auto) Baso % (Auto) Lymph # (Auto) [place] # (Auto) Eos # (Auto) Baso # (Auto) Abs Immat Gran (auto) Absolute Neuts (auto) Absolute Nucleated RBC Nucleated RBC % (auto) PT INR VBG pH VBG pCO2 VBG pO2 VBG HCO3 VBG O2 Saturation VBG Base Excess Anion Gap Estim Creat Clear Calc Estimated GFR POC Glucose 11 L* 89 Random Glucose Calcium Magnesium Total Bilirubin AST ALT Alkaline Phosphatase Total Creatine Kinase Troponin I High Sens Total Protein Albumin Urine Color Urine Appearance Urine pH Ur Specific [place] Urine Protein Urine Glucose (UA) Urine Ketones Urine Blood Urine Nitrite Ur Leukocyte Esterase Urine RBC Urine WBC Ur Squamous Epith Cells Urine Bacteria Urine Opiates Screen Not Detected Urine Fentanyl Screen Not Detected Ur Barbiturates Screen Not Detected Ur Phencyclidine Scrn Not Detected Ur Amphetamines Screen Not Detected U Benzodiazepines Scrn Not Detected Urine Cocaine Screen POSITIVE H U Marijuana (THC) Screen Not Detected Ethyl Alcohol COVID-19 (KRISTOPHER) COVID-19 Clin Com Influenza Type A (NICKY) Influenza Type B (NICKY) Influenza A & B Note 11/15/21 11/15/21 11/15/21 11:53 11:53 11:54 MCV MCH MCHC RDW Plt Count MPV Immature Gran % (Auto) Neut % (Auto) Lymph % (Auto) [place] % (Auto) Eos % (Auto) Baso % (Auto) Lymph # (Auto) [place] # (Auto) Eos # (Auto) Baso # (Auto) Abs Immat Gran (auto) Absolute Neuts (auto) Absolute Nucleated RBC Nucleated RBC % (auto) PT INR VBG pH VBG pCO2 VBG pO2 VBG HCO3 VBG O2 Saturation VBG Base Excess Anion Gap Estim Creat Clear Calc Estimated GFR POC Glucose Random Glucose Calcium Magnesium Total Bilirubin AST ALT Alkaline Phosphatase Total Creatine Kinase Troponin I High Sens Total Protein Albumin Urine Color YELLOW Urine Appearance CLEAR Urine pH 6.0 Ur Specific [place] 1.020 Urine Protein NEG Urine Glucose (UA) 100 H Urine Ketones NEG Urine Blood 1+ H Urine Nitrite NEG Ur Leukocyte Esterase NEG Urine RBC 1-4 Urine WBC 1-4 Ur Squamous Epith Cells 1+ Urine Bacteria NONE Urine Opiates Screen Urine Fentanyl Screen Ur Barbiturates Screen Ur Phencyclidine Scrn Ur Amphetamines Screen U Benzodiazepines Scrn Urine Cocaine Screen U Marijuana (THC) Screen Ethyl Alcohol COVID-19 (KRISTOPHER) Negative COVID-19 Clin Com See Note Influenza Type A (NICKY) Negative Influenza Type B (NICKY) Negative Influenza A & B Note See Note 11/15/21 11/15/21 11/15/21 11:58 11:58 11:58 MCV 86.8 MCH 26.1 L MCHC 30.0 L RDW 18.2 H Plt Count 417 H MPV 9.1 L Immature Gran % (Auto) 0.4 Neut % (Auto) 87.8 H Lymph % (Auto) 6.9 L [place] % (Auto) 4.3 Eos % (Auto) 0.2 Baso % (Auto) 0.4 Lymph # (Auto) 0.6 L [place] # (Auto) 0.4 Eos # (Auto) 0.0 Baso # (Auto) 0.0 Abs Immat Gran (auto) 0.03 Absolute Neuts (auto) 7.3 Absolute Nucleated RBC 0.000 Nucleated RBC % (auto) 0.0 PT 12.1 INR 1.1 VBG pH VBG pCO2 VBG pO2 VBG HCO3 VBG O2 Saturation VBG Base Excess Anion Gap 11 L Estim Creat Clear Calc 116.8 Estimated GFR > 60 POC Glucose Random Glucose 89 Calcium 9.0 D Magnesium 1.9 Total Bilirubin 0.3 AST 20 ALT 10 Alkaline Phosphatase 81 Total Creatine Kinase Troponin I High Sens Total Protein 6.6 D Albumin 3.5 D Urine Color Urine Appearance Urine pH Ur Specific [place] Urine Protein Urine Glucose (UA) Urine Ketones Urine Blood Urine Nitrite Ur Leukocyte Esterase Urine RBC Urine WBC Ur Squamous Epith Cells Urine Bacteria Urine Opiates Screen Urine Fentanyl Screen Ur Barbiturates Screen Ur Phencyclidine Scrn Ur Amphetamines Screen U Benzodiazepines Scrn Urine Cocaine Screen U Marijuana (THC) Screen Ethyl Alcohol COVID-19 (KRISTOPHER) COVID-19 Clin Com Influenza Type A (NICKY) Influenza Type B (NICKY) Influenza A & B Note 11/15/21 11/15/21 11/15/21 11:58 11:58 11:58 MCV MCH MCHC RDW Plt Count MPV Immature Gran % (Auto) Neut % (Auto) Lymph % (Auto) [place] % (Auto) Eos % (Auto) Baso % (Auto) Lymph # (Auto) [place] # (Auto) Eos # (Auto) Baso # (Auto) Abs Immat Gran (auto) Absolute Neuts (auto) Absolute Nucleated RBC Nucleated RBC % (auto) PT INR VBG pH VBG pCO2 VBG pO2 VBG HCO3 VBG O2 Saturation VBG Base Excess Anion Gap Estim Creat Clear Calc Estimated GFR POC Glucose Random Glucose Calcium Magnesium Total Bilirubin AST ALT Alkaline Phosphatase Total Creatine Kinase 90 D Troponin I High Sens 4.3 D Total Protein Albumin Urine Color Urine Appearance Urine pH Ur Specific [place] Urine Protein Urine Glucose (UA) Urine Ketones Urine Blood Urine Nitrite Ur Leukocyte Esterase Urine RBC Urine WBC Ur Squamous Epith Cells Urine Bacteria Urine Opiates Screen Urine Fentanyl Screen Ur Barbiturates Screen Ur Phencyclidine Scrn Ur Amphetamines Screen U Benzodiazepines Scrn Urine Cocaine Screen U Marijuana (THC) Screen Ethyl Alcohol < 10 COVID-19 (KRISTOPHER) COVID-19 Clin Com Influenza Type A (NICKY) Influenza Type B (NICKY) Influenza A & B Note 11/15/21 11/15/21 11/15/21 11:59 12:19 12:42 MCV MCH MCHC RDW Plt Count MPV Immature Gran % (Auto) Neut % (Auto) Lymph % (Auto) [place] % (Auto) Eos % (Auto) Baso % (Auto) Lymph # (Auto) [place] # (Auto) Eos # (Auto) Baso # (Auto) Abs Immat Gran (auto) Absolute Neuts (auto) Absolute Nucleated RBC Nucleated RBC % (auto) PT INR VBG pH 7.34 VBG pCO2 59 VBG pO2 59 VBG HCO3 32 H VBG O2 Saturation 83.0 VBG Base Excess 5.5 Anion Gap Estim Creat Clear Calc Estimated GFR POC Glucose 46 L* 75 Random Glucose Calcium Magnesium Total Bilirubin AST ALT Alkaline Phosphatase Total Creatine Kinase Troponin I High Sens Total Protein Albumin Urine Color Urine Appearance Urine pH Ur Specific [place] Urine Protein Urine Glucose (UA) Urine Ketones Urine Blood Urine Nitrite Ur Leukocyte Esterase Urine RBC Urine WBC Ur Squamous Epith Cells Urine Bacteria Urine Opiates Screen Urine Fentanyl Screen Ur Barbiturates Screen Ur Phencyclidine Scrn Ur Amphetamines Screen U Benzodiazepines Scrn Urine Cocaine Screen U Marijuana (THC) Screen Ethyl Alcohol COVID-19 (KRISTOPHER) COVID-19 Clin Com Influenza Type A (NICKY) Influenza Type B (NICKY) Influenza A & B Note 11/15/21 11/15/21 11/15/21 13:16 14:05 16:11 MCV MCH MCHC RDW Plt Count MPV Immature Gran % (Auto) Neut % (Auto) Lymph % (Auto) [place] % (Auto) Eos % (Auto) Baso % (Auto) Lymph # (Auto) [place] # (Auto) Eos # (Auto) Baso # (Auto) Abs Immat Gran (auto) Absolute Neuts (auto) Absolute Nucleated RBC Nucleated RBC % (auto) PT INR VBG pH VBG pCO2 VBG pO2 VBG HCO3 VBG O2 Saturation VBG Base Excess Anion Gap Estim Creat Clear Calc Estimated GFR POC Glucose 52 L* 61 16 L* Random Glucose Calcium Magnesium Total Bilirubin AST ALT Alkaline Phosphatase Total Creatine Kinase Troponin I High Sens Total Protein Albumin Urine Color Urine Appearance Urine pH Ur Specific [place] Urine Protein Urine Glucose (UA) Urine Ketones Urine Blood Urine Nitrite Ur Leukocyte Esterase Urine RBC Urine WBC Ur Squamous Epith Cells Urine Bacteria Urine Opiates Screen Urine Fentanyl Screen Ur Barbiturates Screen Ur Phencyclidine Scrn Ur Amphetamines Screen U Benzodiazepines Scrn Urine Cocaine Screen U Marijuana (THC) Screen Ethyl Alcohol COVID-19 (KRISTOPHER) COVID-19 Clin Com Influenza Type A (NICKY) Influenza Type B (NICKY) Influenza A & B Note 11/15/21 11/15/21 16:13 16:31 MCV MCH MCHC RDW Plt Count MPV Immature Gran % (Auto) Neut % (Auto) Lymph % (Auto) [place] % (Auto) Eos % (Auto) Baso % (Auto) Lymph # (Auto) [place] # (Auto) Eos # (Auto) Baso # (Auto) Abs Immat Gran (auto) Absolute Neuts (auto) Absolute Nucleated RBC Nucleated RBC % (auto) PT INR VBG pH VBG pCO2 VBG pO2 VBG HCO3 VBG O2 Saturation VBG Base Excess Anion Gap Estim Creat Clear Calc Estimated GFR POC Glucose 21 L* 43 L* Random Glucose Calcium Magnesium Total Bilirubin AST ALT Alkaline Phosphatase Total Creatine Kinase Troponin I High Sens Total Protein Albumin Urine Color Urine Appearance Urine pH Ur Specific [place] Urine Protein Urine Glucose (UA) Urine Ketones Urine Blood Urine Nitrite Ur Leukocyte Esterase Urine RBC Urine WBC Ur Squamous Epith Cells Urine Bacteria Urine Opiates Screen Urine Fentanyl Screen Ur Barbiturates Screen Ur Phencyclidine Scrn Ur Amphetamines Screen U Benzodiazepines Scrn Urine Cocaine Screen U Marijuana (THC) Screen Ethyl Alcohol COVID-19 (KRISTOPHER) COVID-19 Clin Com Influenza Type A (NICKY) Influenza Type B (NICKY) Influenza A & B Note Imaging Radiologist's Impressions: Impressions Head CT 11/15/21 12:32 IMPRESSION: No acute intracranial pathology. EXAMINATION: Noncontrast CT scan of the cervical spine. INDICATION: Neck injury COMPARISON: CT cervical spine from 08/24/2021 TECHNIQUE: Helical, multidetector axial images were obtained from the occiput to the upper thorax. Coronal and sagittal reformats of the cervical spine were provided for interpretation. DLP: 1507 mGy-cm FINDINGS: No acute fractures or dislocations of the cervical spine are seen. Multilevel degenerative changes with disc space narrowing, osteophyte formation, and facet arthropathy. Anatomic alignment and positioning of the vertebral bodies and posterior elements is noted. The atlantoaxial joint and craniovertebral articulations are normal without evidence of subluxation. There is no prevertebral soft tissue swelling. The thyroid gland and visualized portions of the lung apices and mediastinum are unremarkable. IMPRESSION: 1. No acute visible fracture or dislocation. 2. Multilevel degenerative changes. Cervical Spine CT 11/15/21 13:43 IMPRESSION: No acute intracranial pathology. EXAMINATION: Noncontrast CT scan of the cervical spine. INDICATION: Neck injury COMPARISON: CT cervical spine from 08/24/2021 TECHNIQUE: Helical, multidetector axial images were obtained from the occiput to the upper thorax. Coronal and sagittal reformats of the cervical spine were provided for interpretation. DLP: 1507 mGy-cm FINDINGS: No acute fractures or dislocations of the cervical spine are seen. Multilevel degenerative changes with disc space narrowing, osteophyte formation, and facet arthropathy. Anatomic alignment and positioning of the vertebral bodies and posterior elements is noted. The atlantoaxial joint and craniovertebral articulations are normal without evidence of subluxation. There is no prevertebral soft tissue swelling. The thyroid gland and visualized portions of the lung apices and mediastinum are unremarkable. IMPRESSION: 1. No acute visible fracture or dislocation. 2. Multilevel degenerative changes. Chest X-Ray 11/15/21 15:24 FINDINGS IMPRESSION: Again noted is an elevated right hemidiaphragm with bilateral volume loss. Compared to the prior study patchy infiltrates in the left upper lobe appear significantly improved. However, bilateral ill-defined airspace opacities persist. On the prior CT scan, these findings were felt to represent the residua of Covid pneumonia. Assessment and Plan (1) Hypoglycemia: Status: Acute (2) Acute promyelocytic leukemia: Status: Acute (3) Cocaine dependence: Status: Acute Plan 61-year-old male dm 1.5 treated with glyburide presents today after fall in the bathroom. EMS long day sugar to be 11 and on route he received 1 amp of D50. In the emergency room he was persistently hypoglycemic and received a total of 4 amps of D50. Dextrose drip was started and patient remained asymptomatic throughout this course. Most recent blood sugar drawn venous was 44. Call placed endocrine who felt that given patient's positive cocaine U tox along with glyburide that this would be explainable. Suggest D10 at 100 an hour and aggressive diet. Patient will be admitted for serial point cares along with IV dextrose 1. Hypoglycemia - D10 at 100 an hour - POCs q4hs and prn -regular diet -serial labs q am 2.Acute PML -continue outpatient regimen 3. Cocaine abuse(denies however UTox positive) -Adiction consult in am 4.GERD - continue omeprazole and sucralfate as per outpatient full code sequentials patient will require 2 midnights going forward for IV D5 10 to correct hypoglycemia. This cannot be achieved in a lesser acute setting Quality Stroke Does the patient have a stroke diagnosis?: No VTE Prior VTE?: No VTE Risk Level:: Medical - moderate - high VTE Device Contraindication: Treatment Not Indicated VTE Drug Contraindication: N/A - Med Ordered
[2021-11-15] MEDS: Dextrose 10 % 1,000 ML 75 ML IVCONT (17:10)
[2021-11-15 17:30] LABS: Anion Gap 10 (12-20); Blood Urea Nitrogen 9 mg/dL (9-16); Carbon Dioxide 29 mmol/L (22-29); Chloride 101 mmol/L (96-108); Creatinine Clr Calc Pharmacy 103.6; Estimated Glomerular Filt Rate > 60; Glucose Random 396 mg/dL (60-115); Potassium 3.7 mmol/L (3.3-5.1); Sodium 136 mmol/L (135-145)
[2021-11-15 17:52] LABS: Glucose, Whole Blood 78 mg/dL (60-115)
[2021-11-15 19:11] LABS: Glucose, Whole Blood 83 mg/dL (60-115)
[2021-11-15 20:06] LABS: Glucose, Whole Blood 66 mg/dL (60-115)
[2021-11-15 20:37] VITALS: BP 139/61; PULSE 110; RESP 18; TEMP 37.6; O2SAT 87
[2021-11-15 21:08] LABS: Glucose, Whole Blood 50 mg/dL (60-115)
--- NOTE | 2021-11-15 21:09 | PC.NURSE ---
Per Dr. Torres give pt ice cream for low BS.
[2021-11-15 21:39] LABS: Glucose, Whole Blood 54 mg/dL (60-115)
[2021-11-15] MEDS: Hydrocortisone Sod Succ/PF 100 MG VIAL 50 MG IVPUSH (21:53)
[2021-11-15] MEDS: Tamsulosin HCL 0.4 MG CAPSULE PO (21:56)
[2021-11-15] MEDS: Sucralfate 1 GM TABLET PO (21:56)
[2021-11-15 22:17] LABS: Glucose, Whole Blood 78 mg/dL (60-115)
[2021-11-15] MEDS: fluvoxaMINE Maleate 50 MG TABLET 100 MG PO (22:31)
[2021-11-15 23:05] LABS: Glucose, Whole Blood 114 mg/dL (60-115)
[2021-11-16] VITALS: BP 127/69; PULSE 111; RESP 15; TEMP 36.9; O2SAT 95
[2021-11-16 00:07] LABS: Glucose, Whole Blood 86 mg/dL (60-115)
[2021-11-16 01:53] LABS: Glucose, Whole Blood 82 mg/dL (60-115)
[2021-11-16 02:00] VITALS: BP 128/70; PULSE 110; RESP 16; TEMP 36.8; O2SAT 95
[2021-11-16 02:11] LABS: Glucose, Whole Blood 85 mg/dL (60-115)
[2021-11-16 03:29] LABS: Glucose, Whole Blood 100 mg/dL (60-115)
--- NOTE | 2021-11-16 03:46 | PC.NURSE ---
dr Wheeler on the unit and poc 100 reported to him.
[2021-11-16 04:00] VITALS: BP 133/54; PULSE 86; RESP 19; TEMP 37.4; O2SAT 96
[2021-11-16 05:08] LABS: Glucose, Whole Blood 106 mg/dL (60-115)
[2021-11-16 05:08] LABS: Glucose, Whole Blood 100 mg/dL (60-115)
[2021-11-16 06:00] VITALS: BP 125/73; PULSE 102; RESP 18; TEMP 37; O2SAT 100
[2021-11-16 06:18] LABS: Glucose, Whole Blood 99 mg/dL (60-115)
[2021-11-16 07:20] LABS: Glucose, Whole Blood 108 mg/dL (60-115)
[2021-11-16 07:47] VITALS: BP 140/85; PULSE 100; RESP 18; O2SAT 98
[2021-11-16] MEDS: Dextrose 10 % 1,000 ML 75 ML IVCONT (08:01)
[2021-11-16 08:16] LABS: Glucose, Whole Blood 106 mg/dL (60-115)
[2021-11-16 08:17] LABS: Basophils Percent Auto 0.7 % (0-2); Eosinophils Absolute Auto 0.1 X10*3/uL (0.0-0.4); Eosinophils Percent Auto 1.1 % (0-4); Hematocrit 33.6 % (42.0-52.0); Hemoglobin 10.2 g/dl (14.0-18.0); Imm Gran Abs Auto 0.02 X10*3/uL (0.00-0.03); Imm Gran Pct Auto 0.4 % (0.0-0.4); Lymphocytes Absolute Auto 1.2 X10*3/uL (1.2-4.9); Lymphocytes Percent Auto 21.5 % (20-40); MANUAL DIFF FLAG SCAN; Mean Corpuscular HGB Conc 30.4 g/dl (31.0-36.0); Mean Corpuscular Hemoglobin 26.5 pg (27.0-33.0); Mean Corpuscular Volume 87.3 fL (80.0-98.0); Mean Platelet Volume 9.3 fL (9.4-12.4); Monocytes Absolute Auto 0.1 X10*3/uL (0.1-1.2); Monocytes Percent Auto 2.2 % (2-11); Neutrophils Absolute Auto 4.1 x10*3/uL (2.0-8.3); Neutrophils Percent Auto 74.1 % (45-73); Platelet Count 451 X10*3/uL (160-400); Red Blood Count 3.85 X10*6/uL (4.60-5.80); Red Cell Distribution Width 18.6 % (11.0-16.0); SCAN SMEAR FLAG 1; White Blood Count 5.5 X10*3/uL (4.8-10.8)
[2021-11-16 09:13] LABS: SLIDE REVIEW VERIFIED
[2021-11-16 09:38] LABS: Alanine Aminotransferase 12 U/L (0-40); Albumin Level 3.4 g/dL (3.5-5.0); Alkaline Phosphatase 80 U/L (39-117); Anion Gap 12 (12-20); Aspartate Amino Transferase 17 U/L (5-37); Bilirubin Total 0.3 mg/dL (0.0-1.0); Blood Urea Nitrogen 7 mg/dL (9-16); Calcium 8.9 mg/dL (8.4-10.2); Carbon Dioxide 30 mmol/L (22-29); Chloride 101 mmol/L (96-108); Creatinine Clr Calc Pharmacy 103.6; Estimated Glomerular Filt Rate > 60; Glucose Fasting 136 mg/dL (60-99); Potassium 4.4 mmol/L (3.3-5.1); Sodium 139 mmol/L (135-145); Total Protein 6.5 g/dL (6.5-8.0)
--- NOTE | 2021-11-16 11:02 | PC.NURSE ---
this financial underwriter assumed care of this pt at 1100. pt resting quietly, no apparent distress noted. vss.
--- NOTE | 2021-11-16 11:06 | PC.NURSE ---
per Dr. Kessler hold poc until prior to lunch.
--- NOTE | 2021-11-16 11:38 | MHC.CM.PN ---
IMM 11/16/21, CM MET W/PT [facility] [employer], PT REPORTS HE LIVES [place], USES A CANE/WALKER, SHOWER CHAIR AND BEDSIDE COMMODE, PT REPORTS AND SON VERIFIES HE HAS A VNA 3XWK FOR MED MANAGEMENT, VS AND WEIGHT, PT UNABLE TO RECALL NAME OF VNA, [facility], PT VERIFIES PFIZER X2, PCP [facility]KY [facility] AND HCP ON FILE. D/C HOME TODAY W/RESUMP OF [facility], HOME THERAPY 2XWK, PT WILL CALL FAMILY FOR TRANSPORT
[2021-11-16 12:36] LABS: Glucose, Whole Blood 118 mg/dL (60-115)
--- NOTE | 2021-11-16 13:44 | PM.DS ---
DS: Providers Provider Date of Service: 11/16/21 Date of admission: 11/15/21 15:55 Date of discharge: 11/16/21 Primary care physician: Luke Kamara III, MD DS: Diagnosis Discharge Diagnosis (1) Hypoglycemia: Status: Acute (2) Acute promyelocytic leukemia: Status: Acute (3) Cocaine dependence: Status: Acute DS: Summary Hospital Course Hospital Course: 61-year-old male with a past medical history of acute promyelocytic leukemia s/p chemo in remission since 2017, anemia, anxiety, depression, asthma, CHF with an EF of 35-40, HTN, obesity, Crohn's disease, IBS, chronic constipation, renal stones, kidney disease, COVID-19, thalamic pain syndrome and 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 EMS arrived and found that the patient's blood sugar was 11 and gave him PO Glucose.? Patient became alert.? Reports that last night he ate some ice cream and took his glyburide and this morning he ate a piece of toast and some eggs and also drinks some water although he did not check his blood sugar and drink his glyburide.? He denies any symptoms at this time.? He reports this has never happened in the past. In ER, sugars persistently low in the 20-40 range despite 5 amps of D50 and D10 drip. Of note, urine tox positive for cocaine. Hospital course patient admitted and placed on D10 at 100 cc an hour. Call placed to Endocrine and states the glyburide and cocaine can have this affects for prolonged hypoglycemia. Patient was kept overnight fed a regular diet and point cares have normalized. He will be discharged home on no diabetic meds and is strongly encouraged not to do cocaine. He will follow-up with his PCP for further treatment Time Spent with Patient Time attestation: Total time spent providing and/or coordinating discharge services: Discharge coordination time: Greater than 30 minutes Quality: Safe Use of Opioids Does Pt have an Active Cancer Diagnosis on the Problem List?: No Quality: Stroke Does the patient have a stroke diagnosis?: No Physical Exam Vital Signs: Vital Signs: Last Vital Signs Temp 98.6 F 11/16/21 06:00 Pulse 100 11/16/21 07:47 Resp 18 11/16/21 07:47 BP 140/85 H 11/16/21 07:47 Pulse Ox 98 11/16/21 07:47 O2 Del Method 11/16/21 07:47 O2 Flow Rate 2 11/16/21 06:00 BMI result Body Mass Index 41.8 Const: Other: awake alert oriented x3 no acute distress Resp: Other: clear to auscultation bilaterally no rales rhonchi or wheezes Cardio: Other: no S4; positive S1-S2; no S3 murmurs rubs or gallops GI: Other: soft nontender nondistended with normoactive bowel sounds Neuro: Other: cranial nerves 2-12 were grossly intact as tested. Motor is 5/5 all extremities. Sensation is intact. Cognition appropriate Extrem: Other: no edema bilaterally DS: Data Data Completed and Pending Completed studies during hospitalization [Text1]: Procedures Insertion of Endotracheal Airway into Trachea, Via Natural or Artificial Opening (06/15/21) Insertion of Infusion Device into Superior Vena Cava, Percutaneous Approach (06/15/21) Introduction of Remdesivir Anti-infective into Peripheral Vein, Percutaneous Approach, [employer] 5 (06/15/21) Introduction of Vasopressor into Peripheral Vein, Percutaneous Approach (06/15/21) Isolation (06/15/21) Reposition Lumbar Vertebra, Percutaneous Approach (06/15/21) Reposition Thoracic Vertebra, Percutaneous Approach (06/15/21) Respiratory Ventilation, Greater than 96 Consecutive Hours (06/15/21) Supplement Lumbar Vertebra with Synthetic Substitute, Percutaneous Approach (06/15/21) Supplement Thoracic Vertebra with Synthetic Substitute, Percutaneous Approach (06/15/21) Transfusion of Nonautologous Red Blood Cells into Peripheral Vein, Percutaneous Approach (06/15/21) Labs on day of discharge: Laboratory Results - last 24 hr 11/15/21 11/15/21 11/15/21 14:05 16:11 16:13 WBC RBC Hgb Hct MCV MCH MCHC RDW Plt Count MPV Immature Gran % (Auto) Neut % (Auto) Lymph % (Auto) Morrison % (Auto) Eos % (Auto) Baso % (Auto) Lymph # (Auto) Morrison # (Auto) Eos # (Auto) Baso # (Auto) Abs Immat Gran (auto) Absolute Neuts (auto) Absolute Nucleated RBC Nucleated RBC % (auto) Smear Tech's Comments Sodium Potassium Chloride Carbon Dioxide Anion Gap BUN Creatinine Estim Creat Clear Calc Estimated GFR POC Glucose 61 16 L* 21 L* Random Glucose Fasting Glucose Calcium Total Bilirubin AST ALT Alkaline Phosphatase Total Protein Albumin 11/15/21 11/15/21 11/15/21 16:31 17:00 17:46 WBC RBC Hgb Hct MCV MCH MCHC RDW Plt Count MPV Immature Gran % (Auto) Neut % (Auto) Lymph % (Auto) Morrison % (Auto) Eos % (Auto) Baso % (Auto) Lymph # (Auto) Morrison # (Auto) Eos # (Auto) Baso # (Auto) Abs Immat Gran (auto) Absolute Neuts (auto) Absolute Nucleated RBC Nucleated RBC % (auto) Smear Tech's Comments Sodium 136 Potassium 3.7 Chloride 101 Carbon Dioxide 29 Anion Gap 10 L BUN 9 Creatinine 0.71 Estim Creat Clear Calc 103.6 Estimated GFR > 60 POC Glucose 43 L* 78 Random Glucose 396 H* Fasting Glucose Calcium 8.0 L D Total Bilirubin AST ALT Alkaline Phosphatase Total Protein Albumin 11/15/21 11/15/21 11/15/21 19:04 20:01 21:04 WBC RBC Hgb Hct MCV MCH MCHC RDW Plt Count MPV Immature Gran % (Auto) Neut % (Auto) Lymph % (Auto) Morrison % (Auto) Eos % (Auto) Baso % (Auto) Lymph # (Auto) Morrison # (Auto) Eos # (Auto) Baso # (Auto) Abs Immat Gran (auto) Absolute Neuts (auto) Absolute Nucleated RBC Nucleated RBC % (auto) Smear Tech's Comments Sodium Potassium Chloride Carbon Dioxide Anion Gap BUN Creatinine Estim Creat Clear Calc Estimated GFR POC Glucose 83 66 50 L* Random Glucose Fasting Glucose Calcium Total Bilirubin AST ALT Alkaline Phosphatase Total Protein Albumin 11/15/21 11/15/21 11/15/21 21:33 22:10 23:00 WBC RBC Hgb Hct MCV MCH MCHC RDW Plt Count MPV Immature Gran % (Auto) Neut % (Auto) Lymph % (Auto) Morrison % (Auto) Eos % (Auto) Baso % (Auto) Lymph # (Auto) Morrison # (Auto) Eos # (Auto) Baso # (Auto) Abs Immat Gran (auto) Absolute Neuts (auto) Absolute Nucleated RBC Nucleated RBC % (auto) Smear Tech's Comments Sodium Potassium Chloride Carbon Dioxide Anion Gap BUN Creatinine Estim Creat Clear Calc Estimated GFR POC Glucose 54 L* 78 114 Random Glucose Fasting Glucose Calcium Total Bilirubin AST ALT Alkaline Phosphatase Total Protein Albumin 11/16/21 11/16/21 11/16/21 00:01 01:09 02:06 WBC RBC Hgb Hct MCV MCH MCHC RDW Plt Count MPV Immature Gran % (Auto) Neut % (Auto) Lymph % (Auto) Morrison % (Auto) Eos % (Auto) Baso % (Auto) Lymph # (Auto) Morrison # (Auto) Eos # (Auto) Baso # (Auto) Abs Immat Gran (auto) Absolute Neuts (auto) Absolute Nucleated RBC Nucleated RBC % (auto) Smear Tech's Comments Sodium Potassium Chloride Carbon Dioxide Anion Gap BUN Creatinine Estim Creat Clear Calc Estimated GFR POC Glucose 86 82 85 Random Glucose Fasting Glucose Calcium Total Bilirubin AST ALT Alkaline Phosphatase Total Protein Albumin 11/16/21 11/16/21 11/16/21 03:24 04:03 05:02 WBC RBC Hgb Hct MCV MCH MCHC RDW Plt Count MPV Immature Gran % (Auto) Neut % (Auto) Lymph % (Auto) Morrison % (Auto) Eos % (Auto) Baso % (Auto) Lymph # (Auto) Morrison # (Auto) Eos # (Auto) Baso # (Auto) Abs Immat Gran (auto) Absolute Neuts (auto) Absolute Nucleated RBC Nucleated RBC % (auto) Smear Tech's Comments Sodium Potassium Chloride Carbon Dioxide Anion Gap BUN Creatinine Estim Creat Clear Calc Estimated GFR POC Glucose 100 100 106 Random Glucose Fasting Glucose Calcium Total Bilirubin AST ALT Alkaline Phosphatase Total Protein Albumin 11/16/21 11/16/21 11/16/21 06:09 07:02 08:00 WBC 5.5 RBC 3.85 L Hgb 10.2 L Hct 33.6 L MCV 87.3 MCH 26.5 L MCHC 30.4 L RDW 18.6 H Plt Count 451 H MPV 9.3 L Immature Gran % (Auto) 0.4 Neut % (Auto) 74.1 H Lymph % (Auto) 21.5 Morrison % (Auto) 2.2 Eos % (Auto) 1.1 Baso % (Auto) 0.7 Lymph # (Auto) 1.2 Morrison # (Auto) 0.1 Eos # (Auto) 0.1 Baso # (Auto) 0.0 Abs Immat Gran (auto) 0.02 Absolute Neuts (auto) 4.1 Absolute Nucleated RBC 0.000 Nucleated RBC % (auto) 0.0 Smear Tech's Comments VERIFIED Sodium Potassium Chloride Carbon Dioxide Anion Gap BUN Creatinine Estim Creat Clear Calc Estimated GFR POC Glucose 99 108 Random Glucose Fasting Glucose Calcium Total Bilirubin AST ALT Alkaline Phosphatase Total Protein Albumin 11/16/21 11/16/21 11/16/21 08:12 09:11 12:32 WBC RBC Hgb Hct MCV MCH MCHC RDW Plt Count MPV Immature Gran % (Auto) Neut % (Auto) Lymph % (Auto) Morrison % (Auto) Eos % (Auto) Baso % (Auto) Lymph # (Auto) Morrison # (Auto) Eos # (Auto) Baso # (Auto) Abs Immat Gran (auto) Absolute Neuts (auto) Absolute Nucleated RBC Nucleated RBC % (auto) Smear Tech's Comments Sodium 139 Potassium 4.4 Chloride 101 Carbon Dioxide 30 H Anion Gap 12 BUN 7 L Creatinine 0.71 Estim Creat Clear Calc 103.6 Estimated GFR > 60 POC Glucose 106 118 H Random Glucose Fasting Glucose 136 H D Calcium 8.9 D Total Bilirubin 0.3 AST 17 ALT 12 Alkaline Phosphatase 80 Total Protein 6.5 Albumin 3.4 L Discharge Plan Discharge Patient Disposition: Home, Self-Care Discharge Diagnosis: Hypoglycemia Referrals: Luke Kamara III, MD [Primary Care Provider] - 1 Week Discharge Medications: Continued sucralfate 1 gram tablet 1 g PO BID Qty: 180 1RF folic acid 1 mg tablet 1 mg PO DAILY hydroxyzine pamoate 50 mg capsule 100 mg PO BEDTIME PRN (Reason: Anxiety) Stelara 90 mg/mL Syringe 90 mg SUBCUT Q8W methotrexate sodium 2.5 mg tablet 25 mg PO TU calcium carbonate 650 mg calcium (1,625 mg) tablet 650 mg PO DAILY Qty: 30 0RF fluvoxamine 50 mg Tablet 100 mg PO BID Qty: 60 0RF tamsulosin 0.4 mg Capsule 0.4 mg PO BEDTIME Qty: 30 0RF (DME) commode Kit See Rx Instructions .Route Qty: 1 0RF Rx Instructions: As directed need 3 in 1 bedside commode and shower chair omeprazole 20 mg capsule,delayed release(DR/EC) 20 mg PO DAILY Qty: 30 0RF melatonin 5 mg tablet 2 tab PO BEDTIME PRN (Reason: Sleep) Nucynta ER 50 mg tablet extended release 12 hr 50 mg PO DAILY Qty: 30 0RF Diet: advance to usual diet Activity on Discharge: As tolerated Stand Alone Forms: Patient Portal Discharge page Care Plan Goals: stop glyburide. Follow-up with PCP in 2-3 weeks. Health Concerns: Your urine was positive for cocaine. It is extremely important that you do not use cocaine in the future Plan of Treatment: continue all other meds except diabetic meds until seen by your Dr. Assessment: see discharge summary
[2021-11-16 15:48] LABS: Glucose, Whole Blood 105 mg/dL (60-115)
== END 2021-11-16 15:00 | disposition home health service (06) | DRG 638 ==
LOC: HO.ED 13:29 → HO.EDOVER 16:01
PROVIDERS: Physician Assistant Medical; Admitting Provider Hospitalist; Emergency Provider Emergency Medicine; PCP Internal Medicine; Visit Provider Hospitalist
DX: E13.649 Other specified diabetes mellitus with hypoglycemia without coma (principal); C92.41 Acute promyelocytic leukemia, in remission; Z68.41 Body mass index [BMI] 40.0-44.9, adult; F14.20 Cocaine dependence, uncomplicated; I11.0 Hypertensive heart disease with heart failure; I50.9 Heart failure, unspecified; F41.0 Panic disorder [episodic paroxysmal anxiety]; F32.A Depression, unspecified; E66.01 Morbid (severe) obesity due to excess calories; Z20.822 Contact with and (suspected) exposure to COVID-19; Z87.442 Personal history of urinary calculi; Z86.16 Personal history of COVID-19; Z79.899 Other long term (current) drug therapy
CPT/HCPCS: 36415; 70450; 71045; 72125; 80048; 80053; 80307; 81001; 81003; 82077; 82550; 82803; 82947; 83735; 84484; 85025; 85610; 87502; 87635; 93005; 96365; 96375; 96376; 99285; J1610

== ENCOUNTER 2021-12-05 08:54 | Outpatient (REF) | payer MEDICARE, MEDICAID, SELFPAY | END 2021-12-05 08:55 | disposition home or self-care (01) | LOC: HO.MRI 08:54 | PROVIDERS: Visit Provider Internal Medicine Gastroenterology | DX: Z13.89 Encounter for screening for other disorder (principal) ==

== ENCOUNTER 2022-01-11 10:17 | Outpatient (REF) | payer MEDICARE, MEDICAID, SELFPAY ==
[2022-01-11 11:25] LABS: Basophils Absolute Auto 0.1 X10*3/uL (0.0-0.2); Basophils Percent Auto 0.8 % (0-2); Eosinophils Absolute Auto 0.3 X10*3/uL (0.0-0.4); Eosinophils Percent Auto 3.9 % (0-4); Hematocrit 34.4 % (42.0-52.0); Hemoglobin 10.3 g/dl (14.0-18.0); Imm Gran Abs Auto 0.01 X10*3/uL (0.00-0.03); Imm Gran Pct Auto 0.1 % (0.0-0.4); Lymphocytes Absolute Auto 1.3 X10*3/uL (1.2-4.9); Lymphocytes Percent Auto 18.9 % (20-40); MANUAL DIFF FLAG SCAN; Mean Corpuscular HGB Conc 29.9 g/dl (31.0-36.0); Mean Corpuscular Hemoglobin 25.9 pg (27.0-33.0); Mean Corpuscular Volume 86.4 fL (80.0-98.0); Mean Platelet Volume 9.1 fL (9.4-12.4); Monocytes Absolute Auto 0.3 X10*3/uL (0.1-1.2); Monocytes Percent Auto 4.2 % (2-11); Neutrophils Absolute Auto 5.1 x10*3/uL (2.0-8.3); Neutrophils Percent Auto 72.1 % (45-73); Platelet Count 437 X10*3/uL (160-400); Red Blood Count 3.98 X10*6/uL (4.60-5.80); SCAN SMEAR FLAG 1; White Blood Count 7.1 X10*3/uL (4.8-10.8)
[2022-01-11 11:45] LABS: Anion Gap 13 (12-20); Blood Urea Nitrogen 15 mg/dL (9-16); Calcium 9.1 mg/dL (8.4-10.2); Carbon Dioxide 30 mmol/L (22-29); Chloride 102 mmol/L (96-108); Estimated Glomerular Filt Rate > 60; Glucose Random 167 mg/dL (60-115); Potassium 4.5 mmol/L (3.3-5.1); Sodium 140 mmol/L (135-145)
[2022-01-11 11:48] LABS: SLIDE REVIEW VERIFIED
[2022-01-25 18:22] LABS: Prothrombin 20210A NEGATIVE
== END 2022-01-11 10:18 | disposition home or self-care (01) ==
LOC: HO.LAB 10:17
PROVIDERS: PCP Internal Medicine; Visit Provider Internal Medicine
DX: I50.20 Unspecified systolic (congestive) heart failure (principal)
CPT/HCPCS: 36415; 80048; 81240; 85025

== ENCOUNTER → 2022-03-04 10:34 | Outpatient (BNVA) | payer MEDICARE, MEDICAID, SELFPAY | PROVIDERS: PCP Internal Medicine; Visit Provider Internal Medicine Gastroenterology | DX: K50.90 Crohn's disease, unspecified, without complications (principal); R19.7 Diarrhea, unspecified | CPT/HCPCS: Q3014 ==

== ENCOUNTER 2022-03-05 12:15 | Outpatient (REF) | payer MEDICARE, MEDICAID, SELFPAY ==
[2022-03-05 13:38] LABS: Hematocrit 34.8 % (42.0-52.0); Hemoglobin 10.6 g/dl (14.0-18.0); Mean Corpuscular HGB Conc 30.5 g/dl (31.0-36.0); Mean Corpuscular Volume 85.3 fL (80.0-98.0); Mean Platelet Volume 9.6 fL (9.4-12.4); Platelet Count 394 X10*3/uL (160-400); Red Blood Count 4.08 X10*6/uL (4.60-5.80); Red Cell Distribution Width 21.1 % (11.0-16.0); White Blood Count 11.2 X10*3/uL (4.8-10.8)
[2022-03-05 14:05] LABS: Alanine Aminotransferase 7 U/L (0-40); Albumin Level 3.6 g/dL (3.5-5.0); Alkaline Phosphatase 98 U/L (39-117); Anion Gap 19 (12-20); Aspartate Amino Transferase 8 U/L (5-37); Bilirubin Total 0.4 mg/dL (0.0-1.0); Blood Urea Nitrogen 16 mg/dL (9-16); C Reactive Protein 17.48 mg/dL (< or = 0.50); Calcium 8.8 mg/dL (8.4-10.2); Carbon Dioxide 21 mmol/L (22-29); Chloride 100 mmol/L (96-108); Estimated Glomerular Filt Rate 55; Glucose Random 98 mg/dL (60-115); Potassium 4.2 mmol/L (3.3-5.1); Sodium 136 mmol/L (135-145); Total Protein 6.8 g/dL (6.5-8.0)
[2022-03-05 14:26] LABS: Ferritin 114 ng/mL (20-250)
[2022-03-05 14:46] LABS: Folate 6.5 ng/mL (> or = 4.0); Vitamin B12 384 pg/mL (200-900)
[2022-03-05 14:47] LABS: Atypical Lymph Absolute Manual 0.2 x10*3/uL; Atypical Lymphs Percent Manual 2 % (0-6); Band Neutrophils Percent 6 % (3-5); Basophils Abs Manual 0.1 X10*3/uL (0.0-0.2); Basophils Percent Manual 1 % (0-2)
[2022-03-05 14:48] LABS: Lymphocytes Absolute Manual 1.3 X10*3/uL (1.2-4.9); Lymphocytes Percent Manual 12 % (20-40); Monocytes Absolute Manual 1.1 X10*3/uL (0.1-1.2); Monocytes Percent Manual 10 % (2-11)
[2022-03-05 14:49] LABS: Neutrophils Absolute Manual 8.4 X10*3/uL (2.0-8.3); Neutrophils Percent Manual 69 % (45-73); RBC Morphology NOTED
[2022-03-05 14:50] LABS: Hypochromasia 1+ (5-14) /OIF; Macrocytosis 1+ (5-14) /OIF; Microcytosis 1+ (5-14) /OIF
[2022-03-05 14:51] LABS: Platelet Estimate NORMAL (NORMAL); Platelet Morphology Comment NORMAL
[2022-03-05 14:52] LABS: Ovalocytes 1+ (5-14) /OIF
[2022-03-05 15:12] LABS: Erythrocyte Sedimentation Rate 75 MM/HR (0-15)
[2022-03-05 15:35] LABS: CDiff Gene PCR NEGATIVE (Negative)
[2022-03-05 16:15] LABS: Adenovirus F 40/41 Not Detected (Not Detect.); Campylobacter Not Detected (Not Detect.); Cryptosporidium Not Detected (Not Detect.); Cyclospora cayetanensis Not Detected (Not Detect.); E. coli EAEC Not Detected (Not Detect.); E. coli EPEC Not Detected (Not Detect.); E. coli ETEC Not Detected (Not Detect.); E. coli STEC Not Detected (Not Detect.); Entamoeba histolytica Not Detected (Not Detect.); Giardia lamblia Not Detected (Not Detect.); Plesiomonas shigelloides Not Detected (Not Detect.); Salmonella Not Detected (Not Detect.); Shigella sp./EIEC Not Detected (Not Detect.); Vibrio Not Detected (Not Detect.); Vibrio Cholerae Not Detected (Not Detect.); Yersinia enterocolitica Not Detected (Not Detect.)
[2022-03-05 16:16] LABS: Astrovirus Not Detected (Not Detect.); Norovirus GI/GII Not Detected (Not Detect.); Rotavirus A Not Detected (Not Detect.); Sapovirus Not Detected (Not Detect.)
[2022-03-06 05:11] LABS: HBS Num1 0.74 mIU/mL (0-7.99); HBc Num1 0.11 S/CO (0.00-0.79); HBsAGNum1 0.16 S/CO (0.00-0.99); Hepatitis A Antibody IgM 0.25 Index (0-0.79); Hepatitis B Core Antibody Nonreactive (Nonreactive); Hepatitis B Surface Antigen Negative (Negative); ~HepC Num1 0.07 S/CO (0.00-0.79); ~Hepatitis A Antibody IgM Nonreactive (Nonreactive); ~Hepatitis B Surface Antibody NONREACTIVE (Nonreactive); ~Hepatitis C Antibody Nonreactive (Nonreactive)
[2022-03-08 10:11] LABS: TS Negative Control Passed; TS Panel A 0; TS Panel B 2; TS Positive Control Passed; TSpotTB Negative (Negative)
== END 2022-03-05 12:16 | disposition home or self-care (01) ==
LOC: HO.LAB 12:15
PROVIDERS: PCP Internal Medicine; Visit Provider Internal Medicine Gastroenterology
DX: R19.7 Diarrhea, unspecified (principal); K75.81 Nonalcoholic steatohepatitis (NASH); K50.90 Crohn's disease, unspecified, without complications; A09 Infectious gastroenteritis and colitis, unspecified
CPT/HCPCS: 80053; 80299; 82542; 82607; 82728; 82746; 83631; 85007; 85025; 85027; 85652; 86140; 86481; 86704; 86706; 86709; 86803; 87340; 87493; 87507

== ENCOUNTER 2023-02-15 10:44 | Emergency (ER) | payer OTHER, MEDICAID, SELFPAY ==
--- NOTE | ~2023-02-15 | XR_ITS ---
EXAMINATION: XR TOES, LEFT CLINICAL INFORMATION: Trauma. Stubbed third toe COMPARISON: None available. TECHNIQUE: 3 views of the left toes were obtained. FINDINGS: No acute abnormalities within the left foot. Bones have normal alignment. No acute fracture or subluxation of the third toe. Joint spaces are maintained. No radiopaque foreign body. Soft tissues are grossly unremarkable. XR/XR toe LT min 2V IMPRESSION: No acute osseous injury within the left foot.
[2023-02-15 11:21] VITALS: BP 105/66; PULSE 93; RESP 19; TEMP 36.6; O2SAT 99; BMI 25.0
--- NOTE | 2023-02-15 12:14 | ED.LOWEXIN ---
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 Patient reports increased pain and swelling since injury. No fevers or chills. Related Data Home Medications Medication Instructions Recorded Confirmed folic acid 1 mg tablet 1 mg PO DAILY 02/14/21 11/15/21 hydroxyzine pamoate 50 mg capsule 100 mg PO BEDTIME PRN Anxiety 04/02/21 11/15/21 ustekinumab 90 mg/mL subcutaneous 90 mg subcut Q8W 04/02/21 11/15/21 syringe (Stelara) methotrexate sodium 2.5 mg tablet 25 mg PO TU 05/15/21 11/15/21 melatonin 5 mg tablet 2 tab PO BEDTIME PRN Sleep 08/24/21 11/15/21 Previous Rx's Medication Instructions Recorded omeprazole 20 mg capsule,delayed 20 mg PO DAILY #30 caps 06/03/21 release calcium carbonate 650 mg calcium 650 mg PO DAILY #30 tabs 07/19/21 (1,625 mg) tablet fluvoxamine 50 mg tablet 100 mg (2 x 50 mg) PO BID #60 tabs 07/19/21 commode #1 ea 08/21/21 tamsulosin 0.4 mg capsule 0.4 mg PO BEDTIME #30 caps 08/21/21 tapentadol 50 mg tablet,extended 50 mg PO DAILY #30 tabs 08/24/21 release,12 hr (Nucynta ER) sucralfate 1 gram tablet 1 g PO BID #180 tabs 08/07/22 doxycycline monohydrate 100 mg 100 mg PO BID #14 caps 02/15/23 capsule Allergies Allergy/AdvReac Type Severity Reaction Status Date / Time none Allergy Unknown Unknown Uncoded 02/15/23 11:20 Review of Systems Review of Systems: Yes all other systems are reviewed and are negative Constitutional: Constitutional: Reports no additional constitutional complaints, Denies body ache(s), Denies chills, Denies fever(s), Denies headache(s) and Denies weakness Eyes: Eyes: Reports no additional eye complaints and Denies change in vision ENT: Reports system reviewed and no additional complaints, except as documented, Denies dizziness, Denies headache(s), Denies nasal congestion, Denies nasal discharge and Denies neck pain Cardiovascular: Cardiovascular: Reports no additional cardiovascular complaints, Denies chest pain, Denies leg edema and Denies dyspnea Respiratory: Respiratory: Reports no additional respiratory complaints, Denies cough and Denies dyspnea Gastrointestinal: Gastrointestinal: Reports no additional gastrointestinal complaints, Denies abdominal pain, Denies diarrhea, Denies nausea and Denies vomiting Genitourinary: Genitourinary: Denies urinary incontinence Musculoskeletal: Musculoskeletal: Reports no additional musculoskeletal complaints, Denies back pain, Reports arthralgias, Denies joint swelling, Denies neck pain, Denies numbness and Denies tingling Integumentary/Breasts: Skin/Breast: Reports system reviewed and no additional complaints, except as docu, Reports swelling, Reports erythema and Denies rash Neurologic: Reports system reviewed and no additional complaints, except as documented, Denies Abnormal speech present, Denies dizziness, Denies headache(s), Denies numbness, Denies tingling and Denies weakness PMFSH Past Medical History Attestation statement: The following information was validated with the patient. Source: old records reviewed and nursing notes reviewed Medical History Mayda tropicalis infection SAM (generalized anxiety disorder) History of subarachnoid hemorrhage (~08/2016) Pneumomediastinum Suppression of immune system subtherapeutic Morbid obesity Acute respiratory distress syndrome (ARDS) CHF (congestive heart failure) Hypoxia Pneumonia due to COVID-19 virus (~06/2021) Anemia IBD (inflammatory bowel disease) Normocytic anemia Diarrhea Chronic idiopathic constipation Acute promyelocytic leukemia (~08/2016) Left sided abdominal pain Crohn disease (~2002) Elevated serum glutamic pyruvic transaminase (SGPT) level Thalamic pain syndrome (hyperesthetic) Renal stones Kidney disease Colitis (~2002) Hypertension Asthma Depression Anxiety Diabetes 1.5, managed as type 1 Surgical History History of bone marrow biopsy (~2016) History of esophagogastroduodenoscopy (EGD) (~2020) History of right knee surgery (~2016) History of surgery on right wrist (~2006) History of lithotripsy (~2017) History of rectal sphincterotomy (~2003) History of colonoscopy (~2020) History of cholecystectomy (~2011) History of hemorrhoidectomy (~2003) Social History Social History Household Members: Family Housing: Apartment Do you presently have visiting nurse or other home services: No Alcohol intake: current Alcohol intake frequency: does not drink Patient Tobacco Use Status: Never used Tobacco e-Cigarette/Vaping Use: Never Used Second Hand Smoke Exposure: No Advance Directives: Yes Advance Directives on File: Yes Advance Directives Date on File: 04/04/21 service: No Current occupational status: disabled Physical Exam Vital Signs: Vital Signs: Last Vital Signs Temp 98 F 02/15/23 11:21 Pulse 93 02/15/23 11:21 Resp 19 02/15/23 11:21 BP 105/66 02/15/23 11:21 Pulse Ox 99 02/15/23 11:21 O2 Del Method Room Air 02/15/23 11:21 BMI result Body Mass Index 25.0 Const: General: cooperative, healthy appearing, comfortable and no acute distress Orientation/consciousness: patient oriented x3 Limitations: no limitations HEENT: Head: Yes normal to inspection Ears: hearing grossly normal bilaterally General nose exam: Normal external nose present Face and sinus: Yes normal facial exam Mouth: Normal oral and palatal mucosa present Throat: Yes posterior oropharynx normal Eyes: General: appearance normal, both eyes and all related structures Pupils: Equal, round and reactive pupils present Neck: Neck: Yes normal visual inspection Chest: Chest palpation & inspection: normal inspection of the chest Resp: Effort & Inspection: normal respiratory effort Auscultation: clear to auscultation bilaterally Cardio: Rate: regular rate Rhythm: regular rhythm Peripheral pulses: Peripheral pulses 2+ throughout GI: Inspection: Yes normal to inspection Palpation (GI): Soft to palpation and nontender Auscultation: normal bowel sounds Back/Spine/Pelvis: Thoracic/Lumbar Spine: thoracic and lumbar spine normal to inspection Skin: General skin exam: no rashes or lesions noted Neuro: General: patient oriented x3, no focal motor deficits and normal sensation to monofilament Cranial nerves: Yes Equal, round and reactive pupils present Cognition (Neuro): normal cognition Speech: No Abnormal speech present Gait exam (Neuro): Normal gait present Motor exam (neuro): 5/5 motor strength present throughout Extrem: Other: On the left foot, 3rd digit over the dorsal aspect there is a small abrasion noted. There is no drainage or discharge. The 3rd digit is swollen, red and painful to palpation. There is no swelling or redness noted over the foot. There are normal DP and PT pulses on the left foot with normal range of motion of the foot and ankle. General: Yes normal to inspection Medical Decision Making Medical Decision Making MDM Narrative: 62-year-old male with a history of hypertension, diabetes presents to the ER with abrasion to the left foot 3rd digit after stubbing it 3 days ago. Patient reports increased pain and swelling since injury. No fevers or chills. On exam there is an abrasion over the dorsal aspect of the digit with surrounding erythema, swelling and tenderness. There is no drainage noted. Likely wound infection. low concern for osteomyelitis would also consider fracture will check x-rays. discharge patient home with course of antibiotics and close follow-up with primary care due to underlying history of diabetes. Reviewed worrisome signs and symptoms when to return to the emergency room. Comfortable plan for discharge home. Differential Diagnosis Differential Diagnoses: The differential diagnosis associated with the presentation includes See discussion above Admission/Observation Consideration of admission/observation: Escalation of care including admission/observation considered low concern for osteomyelitis or need for advanced imaging or IV antibiotics with admission Independent Interpretation I performed an independent interpretation of an: Plain X-Ray Interpretation: I independently reviewed the x-ray and agree with the radiology report Radiology Impression Discussion of test interpretation with radiology: I have reviewed the radiologist's reading. Radiologist Impression: [address] [address] XRay Report Signed Patient: Bhavik Jean-Baptiste MR#: [id number] : 1960 Acct:[id number] Age/Sex: 62 / M ADM Date: 02/15/23 Loc: HO.ED Attending Dr: Ordering Physician: Generic ED Physician Date of Service: 02/15/23 Procedure(s): XR toe LT min 2V Accession Number(s): [id number] cc: Luke Kamara III, MD; Generic ED Physician~ EXAMINATION: XR TOES, LEFT CLINICAL INFORMATION: Trauma. Stubbed third toe COMPARISON: None available. TECHNIQUE: 3 views of the left toes were obtained. FINDINGS: No acute abnormalities within the left foot. Bones have normal alignment. No acute fracture or subluxation of the third toe. Joint spaces are maintained. No radiopaque foreign body. Soft tissues are grossly unremarkable. XR/XR toe LT min 2V IMPRESSION: No acute osseous injury within the left foot. Prescription Management I considered prescription management with: Antibiotic see discussion above Chronic Conditions Patient?s care impacted by: Diabetes Discharge Plan Discharge Clinical Impression: Infection, wound status post trauma Patient Disposition: Home, Self-Care Instructions: Wound Infection (ED) Additional Instructions: your x-ray shows no fracture the wound is infected so take the antibiotics as prescribed follow-up with your doctor without fail next week for wound recheck return for increasing redness, increasing swelling, fever chamberlain radiograf?a no muestra fractura La herida est? infectada, as? que tome los antibi?ticos seg?n lo recetado. wendy un seguimiento con chamberlain m?dico sin falta la pr?xima semana para volver a revisar la herida volver por aumento del enrojecimiento, aumento de la hinchaz?n, fiebre Prescriptions: New doxycycline monohydrate 100 mg capsule 100 mg PO BID Qty: 14 0RF No Action sucralfate 1 gram tablet 1 g PO BID Qty: 180 1RF folic acid 1 mg tablet 1 mg PO DAILY hydroxyzine pamoate 50 mg capsule 100 mg PO BEDTIME PRN (Reason: Anxiety) Stelara 90 mg/mL Syringe 90 mg SUBCUT Q8W methotrexate sodium 2.5 mg tablet 25 mg PO TU calcium carbonate 650 mg calcium (1,625 mg) tablet 650 mg PO DAILY Qty: 30 0RF fluvoxamine 50 mg Tablet 100 mg PO BID Qty: 60 0RF tamsulosin 0.4 mg Capsule 0.4 mg PO BEDTIME Qty: 30 0RF (DME) commode Kit See Rx Instructions .Route Qty: 1 0RF Rx Instructions: As directed need 3 in 1 bedside commode and shower chair omeprazole 20 mg capsule,delayed release(DR/EC) 20 mg PO DAILY Qty: 30 0RF melatonin 5 mg tablet 2 tab PO BEDTIME PRN (Reason: Sleep) Nucynta ER 50 mg tablet extended release 12 hr 50 mg PO DAILY Qty: 30 0RF Referrals: Luke Kamara III, MD [Primary Care Provider] - 5 days Interventions: ED Discharge Assessment Last Done: 02/15/23 12:39 Discharge Date/Time: 02/15/23 12:39 Print Language: [place]ese
== END 2023-02-15 12:39 | disposition home or self-care (01) ==
PROVIDERS: Emergency Provider Emergency Medicine; PCP Internal Medicine
DX: L08.89 Other specified local infections of the skin and subcutaneous tissue (principal); S90.415A Abrasion, left lesser toe(s), initial encounter; W18.40XA Slipping, tripping and stumbling without falling, unspecified, initial encounter; M79.672 Pain in left foot; E10.8 Type 1 diabetes mellitus with unspecified complications; I10 Essential (primary) hypertension; Y93.9 Activity, unspecified; Y92.9 Unspecified place or not applicable; Y99.9 Unspecified external cause status
CPT/HCPCS: 73660; 99282; 99283

== ENCOUNTER 2023-10-13 01:46 | Emergency (ER) | payer MEDICARE, MEDICAID, SELFPAY ==
--- NOTE | 2023-10-13 | ECG_ITS ---
Test Reason : DYSPNEA Blood Pressure : / mmHG Vent. Rate : 108 BPM Atrial Rate : 108 BPM P-R Int : 148 ms QRS Dur : 134 ms QT Int : 374 ms P-R-T Axes : 012 -64 032 degrees QTc Int : 501 ms Sinus tachycardia Right bundle branch block Left anterior fascicular block Bifascicular block Abnormal ECG No previous ECGs available Referred By: Kenji Graves Electronically Signed By:Isaias Bowden
--- NOTE | ~2023-10-13 | XR_ITS ---
EXAMINATION: XR CHEST CLINICAL INFORMATION: Shortness of breath, question right lower lobe pneumonia COMPARISON: 11/15/2021 TECHNIQUE: Frontal view of the chest was obtained. FINDINGS: Redemonstrated right hemidiaphragm elevation. There is limited evaluation of the right lower lobe in this setting, with subtle patchy opacity in the lateral right lung likely similar to CT 08/26/2021, suggesting scarring. Mild central bronchial wall thickening is noted along with a somewhat coarsened appearance throughout the interstitium. No evidence of pneumothorax or significant pleural effusion. The cardiomediastinal contour is unremarkable. No acute osseous findings are seen. XR/XR chest 1V IMPRESSION: Redemonstrated right hemidiaphragm elevation with limited evaluation of the right lower lobe in this setting. Mild central bronchial wall thickening and coarsened appearance of the interstitium, which may reflect airways disease/bronchitis. Subtle patchy opacity in the lateral right lung is suggestive of scarring.
[2023-10-13 01:50] VITALS: BP 117/56; BP 128/62; PULSE 106; PULSE 109; RESP 20; O2SAT 98; BMI 29.7
--- NOTE | 2023-10-13 02:02 | ED_ITS ---
HPI - SOB/Dyspnea General Chief Complaint: Dyspnea Stated Complaint: sob duo neb Time Seen by Provider: 10/13/23 01:51 Source: patient and EMS Mode of arrival: EMS Limitations: no limitations History of Present Illness HPI Narrative: Patient is 58 years old with history of asthma cocaine use in the past acute status post intubation in 06/30 for acute hypoxic failure does have history of acute promyelocytic leukemia in remission denied any use of cocaine lately comes here for 3 days of cough and shortness of breath got worse today had fever yesterday cough with mucopurulent phlegm no chest pain no leg edema Related Data Home Medications ?Medication ?Instructions ?Recorded ?Confirmed folic acid 1 mg tablet 1 mg PO DAILY 02/14/21 11/15/21 hydroxyzine pamoate 50 mg capsule 100 mg PO BEDTIME PRN Anxiety 04/02/21 11/15/21 ustekinumab 90 mg/mL subcutaneous 90 mg subcut Q8W 04/02/21 11/15/21 syringe (Stelara) methotrexate sodium 2.5 mg tablet 25 mg PO TU 05/15/21 11/15/21 melatonin 5 mg tablet 2 tab PO BEDTIME PRN Sleep 08/24/21 11/15/21 Previous Rx's ?Medication ?Instructions ?Recorded omeprazole 20 mg capsule,delayed 20 mg PO DAILY #30 caps 06/03/21 release calcium carbonate 650 mg PO DAILY #30 tabs 07/19/21 fluvoxamine 50 mg tablet 100 mg (2 x 50 mg) PO BID #60 tabs 07/19/21 commode #1 ea 08/21/21 tamsulosin 0.4 mg capsule 0.4 mg PO BEDTIME #30 caps 08/21/21 tapentadol 50 mg tablet,extended 50 mg PO DAILY #30 tabs 08/24/21 release,12 hr (Nucynta ER) sucralfate 1 gram tablet 1 g PO BID #180 tabs 08/07/22 doxycycline monohydrate 100 mg 100 mg PO BID #14 caps 02/15/23 capsule Allergies Allergy/AdvReac Type Severity Reaction Status Date / Time No Known Allergies Allergy Verified 10/13/23 01:57 Review of Systems 2 Review of Systems: Yes all other systems are reviewed and are negative PMFSH Past Medical History Medical History Mayda tropicalis infection SAM (generalized anxiety disorder) History of subarachnoid hemorrhage (~08/2016) Pneumomediastinum Suppression of immune system subtherapeutic Morbid obesity Acute respiratory distress syndrome (ARDS) CHF (congestive heart failure) Hypoxia Pneumonia due to COVID-19 virus (~06/2021) Anemia IBD (inflammatory bowel disease) Normocytic anemia Diarrhea Chronic idiopathic constipation Acute promyelocytic leukemia (~08/2016) Left sided abdominal pain Crohn disease (~2002) Elevated serum glutamic pyruvic transaminase (SGPT) level Thalamic pain syndrome (hyperesthetic) Renal stones Kidney disease Colitis (~2002) Hypertension Asthma Depression Anxiety Diabetes 1.5, managed as type 1 Surgical History History of bone marrow biopsy (~2016) History of esophagogastroduodenoscopy (EGD) (~2020) History of right knee surgery (~2016) History of surgery on right wrist (~2006) History of lithotripsy (~2017) History of rectal sphincterotomy (~2003) History of colonoscopy (~2020) History of cholecystectomy (~2011) History of hemorrhoidectomy (~2003) Social History Social History Household Members: Family Housing: Apartment Do you presently have visiting nurse or other home services: No Alcohol intake: current Alcohol intake frequency: does not drink Patient Tobacco Use Status: Never used Tobacco Smoked in Last 30 Days: No e-Cigarette/Vaping Use: Never Used Second Hand Smoke Exposure: No Use of substances other than those prescribed or required for medical reasons: No Advance Directives: Yes Advance Directives on File: Yes Advance Directives Date on File: 04/04/21 Do you have a plan to hurt others: No Plan service: No Current occupational status: disabled Physical Exam 2 Vital Signs: Vital Signs: Last Vital Signs Pulse 114 H 10/13/23 04:15 Resp 20 10/13/23 04:15 BP 120/72 10/13/23 04:15 Pulse Ox 87 L 10/13/23 04:55 O2 Del Method Room Air 10/13/23 04:55 BMI result Body Mass Index 29.7 Appearance: Alert. Oriented X3. No acute distress. Eyes: No pallor or icterus ENT: Pharynx normal. Oral Mucosa moist Neck: Normal inspection. Neck supple. CVS: Normal heart rate and rhythm. Pulses normal. Respiratory: Mild respiratory distress. Equal air entry bilateral, bilateral wheezing crackles in the right side Abdomen: Soft and nontender. Bowel sounds are present, no mass palpable, no CVA tenderness Skin: Skin warm and dry. Normal skin color. Normal skin turgor. Extremities: No lower extremity edema. No calf tenderness Neuro: Oriented X 3. No motor deficit. Medications Administered Discontinued Medications Generic Name Dose Route Start Last Admin Trade Name Freq PRN Reason Stop Dose Admin Albuterol Sulfate 7.5 mg/ 10 mg 10/13/23 02:12 10/13/23 02:18 Albuterol Sulfate 2.5 mg INHALE 10/13/23 02:13 10 mg ONCE ONE Administration Methylprednisolone Sodium Succinate 125 mg 10/13/23 02:00 10/13/23 02:31 Methylprednisolone Sod Succ 125 Mg/2 Ml Vial IVPUSH 10/13/23 02:01 125 mg ONCE ONE Administration Medical Decision Making Medical Decision Making [facility] [place] Narrative: Patient with asthma with hypoxia received nebulizing treatment still hypoxic to 88% at room air patient has been intubated in the past will admit patient for asthma exacerbation Differential Diagnosis Differential Diagnoses: The differential diagnosis associated with the presentation includes Admission/Observation Consideration of admission/observation: Escalation of care including admission/observation considered Consult Healthcare Provider Management of the patient was discussed with: Hospitalist Lab Data [facility] [place] Lab Attestation statement: I reviewed the patient's lab results. 10/13/23 02:15 10/13/23 02:15 Labs: Lab Results 10/13/23 Range/Units 02:15 WBC 5.3 (4.8-10.8) X10*3/uL RBC 4.15 L (4.60-5.80) X10*6/uL Hgb 12.3 L (14.0-18.0) g/dl Hct 38.2 L (42.0-52.0) % MCV 92.0 (80.0-98.0) fL MCH 29.6 (27.0-33.0) pg MCHC 32.2 (31.0-36.0) g/dl RDW 14.2 (11.0-16.0) % Plt Count 207 D (160-400) X10*3/uL MPV 9.8 (9.4-12.4) fL Immature Gran % (Auto) 0.4 (0.0-0.4) % Neut % (Auto) 73.4 H (45-73) % Lymph % (Auto) 14.9 L (20-40) % [place] % (Auto) 9.0 (2-11) % Eos % (Auto) 1.7 (0-4) % Baso % (Auto) 0.6 (0-2) % Lymph # (Auto) 0.8 L (1.2-4.9) X10*3/uL [place] # (Auto) 0.5 (0.1-1.2) X10*3/uL Eos # (Auto) 0.1 (0.0-0.4) X10*3/uL Baso # (Auto) 0.0 (0.0-0.2) X10*3/uL Abs Immat Gran (auto) 0.02 (0.00-0.03) X10*3/uL Absolute Neuts (auto) 3.9 (2.0-8.3) x10*3/uL Absolute Nucleated RBC 0.000 (0.0-0.012) X10*3/uL Nucleated RBC % (auto) 0.0 (0.0-0.2) /100WBC Sodium 140 (135-145) mmol/L Potassium 3.8 (3.3-5.1) mmol/L Chloride 104 (96-108) mmol/L Carbon Dioxide 21 L (22-29) mmol/L Anion Gap 19 (12-20) BUN 14 (9-16) mg/dL Creatinine 0.93 (0.5-1.4) mg/dL Estim Creat Clear Calc 105.0 Estimated GFR > 60 Random Glucose 120 H (60-115) mg/dL Lactic Acid 1.0 (0.5-2.0) mmol/L Calcium 8.8 (8.4-10.2) mg/dL Total Bilirubin 0.4 (0.0-1.0) mg/dL AST 31 (5-37) U/L ALT 13 (0-40) U/L Alkaline Phosphatase 87 (39-117) U/L B-Natriuretic Peptide 12 (<100) pg/mL Total Protein 7.8 (6.5-8.0) g/dL Albumin 3.8 (3.5-5.0) g/dL Influenza Type A (PCR) NEGATIVE (Negative) Influenza Type B (PCR) NEGATIVE (Negative) RSV RNA Qual (PCR) NEGATIVE (Negative) SARS-CoV-2 RNA (RT-PCR) NEGATIVE (Negative) Radiology Impression Discussion of test interpretation with radiology: I have reviewed the radiologist's reading. Discharge Plan Discharge Clinical Impression: Acute hypoxemic respiratory failure, Asthma with exacerbation Patient Disposition: Admitted As Inpatient Print Language: Gabonese
[2023-10-13] MEDS: Albuterol Sulfate 7.5 MG, Albuterol Sulfate (0.083%) 2.5 MG 10 MG INHALE (02:18)
[2023-10-13 02:19] VITALS: PULSE 109; RESP 18; O2SAT 93
[2023-10-13 02:21] LABS: MANUAL DIFF FLAG NO
[2023-10-13 02:22] LABS: Basophils Percent Auto 0.6 % (0-2); Eosinophils Absolute Auto 0.1 X10*3/uL (0.0-0.4); Eosinophils Percent Auto 1.7 % (0-4); Hematocrit 38.2 % (42.0-52.0); Hemoglobin 12.3 g/dl (14.0-18.0); Imm Gran Abs Auto 0.02 X10*3/uL (0.00-0.03); Imm Gran Pct Auto 0.4 % (0.0-0.4); Lymphocytes Absolute Auto 0.8 X10*3/uL (1.2-4.9); Lymphocytes Percent Auto 14.9 % (20-40); Mean Corpuscular HGB Conc 32.2 g/dl (31.0-36.0); Mean Corpuscular Hemoglobin 29.6 pg (27.0-33.0); Mean Platelet Volume 9.8 fL (9.4-12.4); Monocytes Absolute Auto 0.5 X10*3/uL (0.1-1.2); Neutrophils Absolute Auto 3.9 x10*3/uL (2.0-8.3); Neutrophils Percent Auto 73.4 % (45-73); Platelet Count 207 X10*3/uL (160-400); Red Blood Count 4.15 X10*6/uL (4.60-5.80); Red Cell Distribution Width 14.2 % (11.0-16.0); White Blood Count 5.3 X10*3/uL (4.8-10.8)
[2023-10-13] MEDS: methylPREDNISolone Sod Succ 125 MG/2 ML VIAL IVPUSH (02:31)
[2023-10-13 02:40] LABS: Alanine Aminotransferase 13 U/L (0-40); Albumin Level 3.8 g/dL (3.5-5.0); Alkaline Phosphatase 87 U/L (39-117); Anion Gap 19 (12-20); Aspartate Amino Transferase 31 U/L (5-37); Bilirubin Total 0.4 mg/dL (0.0-1.0); Blood Urea Nitrogen 14 mg/dL (9-16); Calcium 8.8 mg/dL (8.4-10.2); Carbon Dioxide 21 mmol/L (22-29); Chloride 104 mmol/L (96-108); Estimated Glomerular Filt Rate > 60; Glucose Random 120 mg/dL (60-115); Potassium 3.8 mmol/L (3.3-5.1); Sodium 140 mmol/L (135-145); Total Protein 7.8 g/dL (6.5-8.0)
[2023-10-13 02:59] LABS: B Type Natriuretic Peptide 12 pg/mL (<100)
[2023-10-13 03:04] LABS: Influenza A PCR NEGATIVE (Negative); Influenza B PCR NEGATIVE (Negative); Resp Syncy Virus RNA Qual PCR NEGATIVE (Negative); SARS COV2 PCR INHOUSE NEGATIVE (Negative)
[2023-10-13 04:15] VITALS: BP 120/72; PULSE 114; RESP 20; O2SAT 94
[2023-10-13 04:55] VITALS: O2SAT 87
[2023-10-13 08:33] VITALS: BP 135/68; PULSE 83; RESP 14; TEMP 36.9; O2SAT 96
--- NOTE | 2023-10-13 09:37 | PM.EVENT ---
Event Note Date of Service: 10/13/23 Event Note: Pt seen and examined at bedside for acute asthma exacerbation. He briefly desaturated to 87% on RA early this morning while sleeping but was weaned with last VS reflecting 96% on RA. ON bedside exam, pt is 94-96% oximetry on RA. He denies any sob or wheezing. Lungs are CTA except for expiratory wheezing in the RUL. NO increased work of breathing or distress. he was given albutero neb and 125mg iv methylprednisolone at 2am and has not required any treatment since. There is no pneumonia on cxr and no evidence of sepsis. At this time, do not feel patient requires inpt hospitalization. Discussed with ED provider. Time Spent With Patient Time: Total time managing care of this patient today ____ minutes.
[2023-10-13 10:53] VITALS: BP 131/68; PULSE 85; RESP 20; TEMP 36.9; O2SAT 94
[2023-10-13] MEDS: Azithromycin 500 MG TABLET PO (10:53)
[2023-10-13] MEDS: predniSONE 20 MG TABLET 60 MG PO (10:53)
--- NOTE | 2023-10-13 10:58 | PHA.MEDREC ---
Pharmacy Consult ? Medication Reconciliation Pharmacy has completed the medication reconciliation. Patient was a poor historitan, he was able to answer yes or no by going off a list. He last took Stelara on 09/15, and will be due for this on 10/15. He states he started doxycycline 2 weeks ago, and has one more refill left om his medication.
== END 2023-10-13 11:02 | disposition home or self-care (01) ==
PROVIDERS: Internal Medicine; Emergency Provider Emergency Medicine; PCP Internal Medicine
DX: J96.91 Respiratory failure, unspecified with hypoxia (principal); J45.901 Unspecified asthma with (acute) exacerbation; I50.9 Heart failure, unspecified; I10 Essential (primary) hypertension; E13.8 Other specified diabetes mellitus with unspecified complications
CPT/HCPCS: 0241U; 36415; 71045; 80053; 83605; 83880; 85025; 87040; 93005; 94640; 99284; 99285; J2919

== ENCOUNTER → 2023-10-13 01:59 | Outpatient (BNV) | payer MEDICARE, MEDICAID, SELFPAY | PROVIDERS: Emergency Provider Emergency Medicine; PCP Internal Medicine; Visit Provider Internal Medicine Cardiovascular Disease | DX: R94.31 Abnormal electrocardiogram [ECG] [EKG] (principal) | CPT/HCPCS: 93010 ==

== ENCOUNTER 2024-01-22 13:56 | Outpatient (REF) | payer OTHER, SELFPAY ==
[2024-01-22 15:51] LABS: Alanine Aminotransferase 15 U/L (0-40); Albumin Level 4.1 g/dL (3.5-5.0); Alkaline Phosphatase 86 U/L (39-117); Anion Gap 15 (12-20); Aspartate Amino Transferase 15 U/L (5-37); Bilirubin Total 0.4 mg/dL (0.0-1.0); Blood Urea Nitrogen 23 mg/dL (9-16); Calcium 9.5 mg/dL (8.4-10.2); Carbon Dioxide 26 mmol/L (22-29); Chloride 108 mmol/L (96-108); Estimated Glomerular Filt Rate > 60; Glucose Random 144 mg/dL (60-115); Potassium 4.7 mmol/L (3.3-5.1); Sodium 144 mmol/L (135-145); Total Protein 7.5 g/dL (6.5-8.0)
== END 2024-01-22 13:57 | disposition home or self-care (01) ==
LOC: HO.LAB 13:56
PROVIDERS: PCP Internal Medicine; Visit Provider Internal Medicine
DX: I50.20 Unspecified systolic (congestive) heart failure (principal)
CPT/HCPCS: 36415; 80053

== ENCOUNTER 2024-03-22 20:37 | Emergency (ER) | payer OTHER, SELFPAY ==
--- NOTE | ~2024-03-22 | XR_ITS ---
EXAMINATION: XR CHEST CLINICAL INFORMATION: Shortness of breath. COMPARISON: Chest radiograph 10/13/2023. Thoracic spine radiograph 08/24/2021. TECHNIQUE: 2 views of the chest were obtained. FINDINGS: Unchanged significant asymmetric elevation of the right hemidiaphragm. Stable chronic interstitial thickening. No new focal consolidation. No pleural effusion or pneumothorax. Unchanged lower thoracic compression deformities with vertebroplasty cement in one of the vertebral bodies. No acute osseous findings. XR/XR chest 2V IMPRESSION: 1. No acute cardiopulmonary findings. 2. Unchanged asymmetric elevation of the right hemidiaphragm. 3. Chronic interstitial thickening. Electronically signed by: Dia Hart MD 03/22/2024 09:22 PM EDT
--- NOTE | 2024-03-22 20:41 | ED_ITS ---
HPI - General Adult General Chief complaint: Dyspnea Stated complaint: abd pain Time Seen by Provider: 03/23/24 05:44 Source: patient Mode of arrival: ambulatory Limitations: no limitations History of Present Illness ED Provider: Dr. Lola Coffey HPI narrative: Patient comes to the emergency room complaining of bilateral rib pain laterally for 2 days. Patient states it is worse when he takes big breaths. Patient states that lately he has been feeling a bit short of breath but not significantly. Patient states that he usually rides stationary bicycle every day and walks quite a bit around his block. Patient denies any lower extremity edema. Patient denies any chest pain at all. Denies nausea vomiting diarrhea Related Data Home Medications ?Medication ?Instructions ?Recorded ?Confirmed hydroxyzine pamoate 50 mg capsule 100 mg PO BEDTIME PRN Anxiety 04/02/21 10/13/23 ustekinumab 90 mg/mL subcutaneous 90 mg subcut Q4W 04/02/21 10/13/23 syringe (Stelara) albuterol sulfate 90 mcg/actuation 2 puff inhalation Q4H PRN wheezing 10/13/23 10/13/23 aerosol inhaler (Ventolin HFA) budesonide 9 mg tablet,delayed and 9 mg PO QAM 10/13/23 10/13/23 extended release dapagliflozin propanediol 10 mg 10 mg DAILY 10/13/23 10/13/23 tablet (Farxiga) doxycycline monohydrate 100 mg 100 mg PO BID 10/13/23 10/13/23 capsule melatonin 5 mg capsule 5 mg PO BEDTIME PRN Sleep 10/13/23 10/13/23 metoprolol succinate 100 mg 100 mg PO DAILY 10/13/23 10/13/23 tablet,extended release 24 hr mirtazapine 30 mg tablet 30 mg BEDTIME 10/13/23 10/13/23 paroxetine HCl 40 mg tablet 40 mg PO DAILY 10/13/23 10/13/23 spironolactone 25 mg tablet 25 mg DAILY 10/13/23 10/13/23 upadacitinib 45 mg tablet,extended 45 mg PO DAILY 10/13/23 10/13/23 release 24 hr (Rinvoq) Previous Rx's ?Medication ?Instructions ?Recorded omeprazole 20 mg capsule,delayed 20 mg PO DAILY #30 caps 06/03/21 release commode #1 ea 08/21/21 tamsulosin 0.4 mg capsule 0.4 mg PO BEDTIME #30 caps 08/21/21 sucralfate 1 gram tablet 1 g PO BID #180 tabs 08/07/22 prednisone 20 mg tablet 20 mg PO DAILY #12 tabs 10/13/23 ibuprofen 600 mg tablet 600 mg PO Q8H PRN fever or pain 03/23/24 #20 tabs Allergies Allergy/AdvReac Type Severity Reaction Status Date / Time No Known Allergies Allergy Verified 03/22/24 20:46 Review of Systems 2 Review of Systems: Constitutional : No Weight loss, No Fever, No Chills, No Night Sweats, No Fatigue, No Malaise ENT/Mouth : No Hearing loss, No Ear Pain, No Nasal Congestion, No Sinus Pain, No Hoarseness, No sore throat, No Rhinorrhea, No Swallowing Difficulty Eyes: No Eye Pain, No Swelling, No Redness, No Foreign Body, No Discharge, No Vision Changes Cardiovascular : No Chest Pain, No SOB, No Dyspnea on Exertion, No Orthopnea, No Edema, No Palpitations Respiratory : No Cough, No Sputum, No Wheezing, No Smoke Exposure, No Dyspnea Gastrointestinal : No Nausea, No Vomiting, No Diarrhea, No Constipation, No abdominal Pain, No Hematochezia, No Melena Genitourinary : no irregular bleeding, No Dysuria, No Urinary Frequency, No Hematuria, No Urinary Incontinence, No Urgency, No Flank Pain, No Urinary Flow Changes, No Hesitancy Musculoskeletal : Complaining of bilateral rib pain, No joint pain, No Myalgias, No Joint Swelling Skin : No Skin Lesions, No rash Neuro : No Weakness, No Numbness, No Paresthesias, No Loss of Consciousness, No Dizziness, No Headache Psych : No Anxiety/Panic, No Depression, No SI/HI/AH/VH, No Social Issues, Heme/Lymph: No Bruising, No Bleeding,No Lymphadenopathy Endocrine : No Polyuria, No Polydipsia, No Temperature Intolerance [facility] Past Medical History Medical History Mayda tropicalis infection SAM (generalized anxiety disorder) History of subarachnoid hemorrhage (~08/2016) Pneumomediastinum Suppression of immune system subtherapeutic Morbid obesity Acute respiratory distress syndrome (ARDS) CHF (congestive heart failure) Hypoxia Pneumonia due to COVID-19 virus (~06/2021) Anemia IBD (inflammatory bowel disease) Normocytic anemia Diarrhea Chronic idiopathic constipation Acute promyelocytic leukemia (~08/2016) Left sided abdominal pain Crohn disease (~2002) Elevated serum glutamic pyruvic transaminase (SGPT) level Thalamic pain syndrome (hyperesthetic) Renal stones Kidney disease Colitis (~2002) Hypertension Asthma Depression Anxiety Diabetes 1.5, managed as type 1 Surgical History History of bone marrow biopsy (~2016) History of esophagogastroduodenoscopy (EGD) (~2020) History of right knee surgery (~2016) History of surgery on right wrist (~2006) History of lithotripsy (~2017) History of rectal sphincterotomy (~2003) History of colonoscopy (~2020) History of cholecystectomy (~2011) History of hemorrhoidectomy (~2003) Social History Social History Household Members: Family Housing: Apartment Do you presently have visiting nurse or other home services: No Alcohol intake: current Alcohol intake frequency: does not drink Patient Tobacco Use Status: Never used Tobacco Smoked in Last 30 Days: No e-Cigarette/Vaping Use: Never Used Second Hand Smoke Exposure: No Use of substances other than those prescribed or required for medical reasons: Yes Substance Use Type: Crack/Cocaine Advance Directives: Yes Advance Directives on File: Yes Advance Directives Date on File: 04/04/21 Do you have a plan to hurt others: No Plan service: No Current occupational status: disabled Physical Exam ED Vital Signs: Vital Signs - 24 hr 03/22/24 20:44 03/23/24 01:27 03/23/24 01:27 Temperature 97.1 F 97.6 F Pulse Rate 87 64 61 Respiratory Rate 20 17 15 Blood Pressure 123/68 143/63 H 143/63 H Pulse Oximetry 98 98 96 Oxygen Delivery Method Room Air Room Air Room Air BMI result Body Mass Index 25.0 Const Other: Appearance: Alert. Oriented X3. No acute distress. Eyes: Pupils equal, round and reactive to light. ENT: Pharynx normal. Neck: Normal inspection. Neck supple. No lymph nodes noted. No crepitus CVS: Normal heart rate and rhythm. Pulses normal. Normal S1 and S2. Reproducible pain to palpation over the lower ribs, no chest pain to palpation Respiratory: No respiratory distress. Breath sounds normal. No Wheezing. No rales Abdomen: Soft and nontender. No rigidity. No distention. Skin: Skin warm and dry. Normal skin color. Normal skin turgor. Extremities: No lower extremity edema. No Lacerations. No Rash Neuro: Oriented X 3. No motor deficit. No sensory deficit. Moving all extremities. No slurred speech. CN 2 through 12 grossly intact Psych: calm, cooperative, normal affect Course Course Course Narrative: This is an RME: Additional HPI, ROS, PE not included below will be deferred to primary provider. RME assessment and note performed by: Eugenie Maria PA-C This s a [id number], with a hx of acute promyelocytic leukemia s/p chemo in remission since 2016, anemia, anxiety, depression, asthma, CHF, HTN, obesity, Crohn's disease, IBS, chronic constipation, renal stones, kidney disease, COVID- 19, thalamic pain syndrome and DM, currently on Eliquis who presents to the ER with complaints of pleuritic CP x 2 days. Previously on tx for leukemia but d/c 1.5 years ago. Plan: Labs, viral swabs, ekg, cxr Medical Decision Making Medical Decision Making [facility] Narrative: My interpretation of EKG: Normal sinus rhythm, heart rate 71, no ST segment depression or elevation, nonspecific T-wave inversion in lead 3, right bundle branch block, QTC 456 -my interpretation of labs: Normal hematology and chemistry, troponin 1. Troponin 2. And BNP negative Within normal limits, serology negative for influenza COVID and RSV. -my interpretation of chest x-ray, no infiltrates. -patient was ambulated around the emergency room, patient states that he feels well, no chest pain or shortness of breath, oxygen saturation remains at 96-97%. Differential Diagnosis Differential Diagnoses: The differential diagnosis associated with the presentation includes (Pleurisy, ACS, pleural effusions, BNP) Admission/Observation Consideration of admission/observation: Escalation of care including admission/observation considered (Patient's past medical history and symptoms, observation was considered) Lab Data [facility] Lab Attestation statement: I reviewed the patient's lab results. 03/22/24 21:02 03/22/24 21:02 Labs: Lab Results 03/22/24 03/23/24 Range/Units 21:02 06:01 WBC 5.7 (4.8-10.8) X10*3/uL RBC 4.09 L (4.60-5.80) X10*6/uL Hgb 12.6 L (14.0-18.0) g/dl Hct 38.3 L (42.0-52.0) % MCV 93.6 (80.0-98.0) fL MCH 30.8 (27.0-33.0) pg MCHC 32.9 (31.0-36.0) g/dl RDW 12.5 (11.0-16.0) % Plt Count 268 D (160-400) X10*3/uL MPV 8.8 L (9.4-12.4) fL Immature Gran % (Auto) 0.0 (0.0-0.4) % Neut % (Auto) 41.1 L (45-73) % Lymph % (Auto) 50.0 H (20-40) % Dane % (Auto) 8.0 (2-11) % Eos % (Auto) 0.5 (0-4) % Baso % (Auto) 0.4 (0-2) % Lymph # (Auto) 2.8 (1.2-4.9) X10*3/uL Dane # (Auto) 0.5 (0.1-1.2) X10*3/uL Eos # (Auto) 0.0 (0.0-0.4) X10*3/uL Baso # (Auto) 0.0 (0.0-0.2) X10*3/uL Abs Immat Gran (auto) 0.00 (0.00-0.03) X10*3/uL Absolute Neuts (auto) 2.3 (2.0-8.3) x10*3/uL Absolute Nucleated RBC 0.000 (0.0-0.012) X10*3/uL Nucleated RBC % (auto) 0.0 (0.0-0.2) /100WBC Sodium 143 (135-145) mmol/L Potassium 4.0 (3.3-5.1) mmol/L Chloride 108 (96-108) mmol/L Carbon Dioxide 26 (22-29) mmol/L Anion Gap 13 (12-20) BUN 25 H (9-16) mg/dL Creatinine 1.07 (0.5-1.4) mg/dL Estim Creat Clear Calc 82.2 Estimated GFR > 60 Random Glucose 116 H (60-115) mg/dL Calcium 9.3 (8.4-10.2) mg/dL Magnesium 2.1 (1.6-2.6) mg/dL Total Bilirubin 0.3 (0.0-1.0) mg/dL AST 17 (5-37) U/L ALT 11 (0-40) U/L Alkaline Phosphatase 85 (39-117) U/L Troponin I High Sens 2.9 3.5 (<3.5-35.0) ng/L B-Natriuretic Peptide 13 (<100) pg/mL Total Protein 7.1 (6.5-8.0) g/dL Albumin 4.0 (3.5-5.0) g/dL Influenza Type A (PCR) NEGATIVE (Negative) Influenza Type B (PCR) NEGATIVE (Negative) RSV RNA Qual (PCR) NEGATIVE (Negative) SARS-CoV-2 RNA (RT-PCR) NEGATIVE (Negative) Independent Interpretation I performed an independent interpretation of an: EKG and Plain X-Ray Radiology Impression Discussion of test interpretation with radiology: I have reviewed the radiologist's reading. Radiologist Impression: Unchanged significant asymmetric elevation of the right hemidiaphragm. Stable chronic interstitial thickening. No new focal consolidation. No pleural effusion or pneumothorax. Unchanged lower thoracic compression deformities with vertebroplasty cement in one of the vertebral bodies. No acute osseous findings. XR/XR chest 2V IMPRESSION: 1. No acute cardiopulmonary findings. 2. Unchanged asymmetric elevation of the right hemidiaphragm. 3. Chronic interstitial thickening. Critical Care Time Critical Care Time Critical Care Time: Yes Total Critical Care Time: 35 Attestation: I have personally provided critical care time. Time includes review of lab data, radiology results, discussion with consultants, and monitoring for potential decompensation. Intervention performed as documented. Discharge Plan Discharge Clinical Impression: Pleurisy Patient Disposition: Home, Self-Care Instructions: Pleurisy (ED) Additional Instructions: Please follow-up with your primary care physician tomorrow. If you have any worsening or new symptoms, please return to the emergency room or call 911 Prescriptions: New ibuprofen 600 mg tablet 600 mg PO Q8H PRN (Reason: fever or pain) Qty: 20 0RF No Action sucralfate 1 gram tablet 1 g PO BID Qty: 180 1RF hydroxyzine pamoate 50 mg capsule 100 mg PO BEDTIME PRN (Reason: Anxiety) Stelara 90 mg/mL Syringe 90 mg SUBCUT Q4W Rx Instructions: last took on 09/16/23, will due 10/16/23 tamsulosin 0.4 mg Capsule 0.4 mg PO BEDTIME Qty: 30 0RF (DME) commode Kit See Rx Instructions .Route Qty: 1 0RF Rx Instructions: As directed need 3 in 1 bedside commode and shower chair omeprazole 20 mg capsule,delayed release(DR/EC) 20 mg PO DAILY Qty: 30 0RF metoprolol succinate 100 mg tablet extended release 24 hr 100 mg PO DAILY spironolactone 25 mg tablet 25 mg DAILY mirtazapine 30 mg tablet 30 mg BEDTIME albuterol sulfate [Ventolin HFA] 90 mcg/actuation HFA aerosol inhaler 2 puff inhalation Q4H PRN (Reason: wheezing) paroxetine HCl 40 mg tablet 40 mg PO DAILY melatonin 5 mg capsule 5 mg PO BEDTIME PRN (Reason: Sleep) budesonide 9 mg tablet,delayed and ext.release 9 mg PO QAM Rinvoq 45 mg tablet extended release 24 hr 45 mg PO DAILY prednisone 20 mg tablet 20 mg PO DAILY Qty: 12 0RF Rx Instructions: Take 3 tablets by mouth daily for 2 days then 2 tablets by mouth daily for 3 days. doxycycline monohydrate 100 mg capsule 100 mg PO BID Patient Comments: He states he started doxycycline 2 weeks ago, and has one more refill left om his medication. However pharmacy claims shows that it has not been filled since February 2023. dapagliflozin propanediol [Farxiga] 10 mg tablet 10 mg DAILY Print Language: Maltese
[2024-03-22 20:44] VITALS: BP 123/68; PULSE 87; RESP 20; TEMP 36.2; O2SAT 98; BMI 25.0
--- NOTE | 2024-03-22 20:44 | ECG_ITS ---
Test Reason : SOB Blood Pressure : / mmHG Vent. Rate : 071 BPM Atrial Rate : 071 BPM P-R Int : 156 ms QRS Dur : 138 ms QT Int : 420 ms P-R-T Axes : 017 -34 012 degrees QTc Int : 456 ms Normal sinus rhythm Left axis deviation Right bundle branch block Abnormal ECG When compared with ECG of 13-OCT-2023 01:59, Vent. rate has decreased BY 37 BPM Referred By: Eugenie Maria Electronically Signed By:RUFINA RODRIGUEZ
[2024-03-22 21:11] LABS: MANUAL DIFF FLAG NO
[2024-03-22 21:14] LABS: Basophils Percent Auto 0.4 % (0-2); Eosinophils Percent Auto 0.5 % (0-4); Hematocrit 38.3 % (42.0-52.0); Hemoglobin 12.6 g/dl (14.0-18.0); Lymphocytes Absolute Auto 2.8 X10*3/uL (1.2-4.9); Mean Corpuscular HGB Conc 32.9 g/dl (31.0-36.0); Mean Corpuscular Hemoglobin 30.8 pg (27.0-33.0); Mean Corpuscular Volume 93.6 fL (80.0-98.0); Mean Platelet Volume 8.8 fL (9.4-12.4); Monocytes Absolute Auto 0.5 X10*3/uL (0.1-1.2); Neutrophils Absolute Auto 2.3 x10*3/uL (2.0-8.3); Neutrophils Percent Auto 41.1 % (45-73); Platelet Count 268 X10*3/uL (160-400); Red Blood Count 4.09 X10*6/uL (4.60-5.80); Red Cell Distribution Width 12.5 % (11.0-16.0); White Blood Count 5.7 X10*3/uL (4.8-10.8)
[2024-03-22 21:26] LABS: Alanine Aminotransferase 11 U/L (0-40); Alkaline Phosphatase 85 U/L (39-117); Anion Gap 13 (12-20); Aspartate Amino Transferase 17 U/L (5-37); Bilirubin Total 0.3 mg/dL (0.0-1.0); Blood Urea Nitrogen 25 mg/dL (9-16); Calcium 9.3 mg/dL (8.4-10.2); Carbon Dioxide 26 mmol/L (22-29); Chloride 108 mmol/L (96-108); Creatinine Clr Calc Pharmacy 82.2; Estimated Glomerular Filt Rate > 60; Glucose Random 116 mg/dL (60-115); Magnesium 2.1 mg/dL (1.6-2.6); Sodium 143 mmol/L (135-145); Total Protein 7.1 g/dL (6.5-8.0)
[2024-03-22 21:33] LABS: Troponin-I High Sensitivity 2.9 ng/L (<3.5-35.0)
[2024-03-22 21:49] LABS: Influenza A PCR NEGATIVE (Negative); Influenza B PCR NEGATIVE (Negative); Resp Syncy Virus RNA Qual PCR NEGATIVE (Negative); SARS COV2 PCR INHOUSE NEGATIVE (Negative)
--- NOTE | 2024-03-23 01:10 | MHC.EDTECH ---
patient into hospital gown and placed on water quality analyst
[2024-03-23 01:27] VITALS: BP 143/63; PULSE 61; PULSE 64; RESP 15; RESP 17; TEMP 36.4; O2SAT 96; O2SAT 98
--- NOTE | 2024-03-23 01:29 | PC.NURSE ---
Pt is a&Ox4, no signs of distress. Pt ambulates with steady gait Pt reports 3/10 bilateral abd pain x2days worse with inspiration. Plan of care ongoing.
--- NOTE | 2024-03-23 03:44 | MHC.EDTECH ---
patient oxygen level dropped to 84% while sleeping RN aware. patient placed on O2 via NC @ 1lpm. oxygen level up to 100%
[2024-03-23 06:26] LABS: Troponin-I High Sensitivity 3.5 ng/L (<3.5-35.0)
[2024-03-23 06:27] LABS: B Type Natriuretic Peptide 13 pg/mL (<100)
[2024-03-23 07:40] VITALS: BP 134/61; PULSE 56; RESP 20; TEMP 36.4; O2SAT 97
== END 2024-03-23 07:41 | disposition home or self-care (01) ==
PROVIDERS: Physician Assistant Medical; Emergency Provider Emergency Medicine; PCP Internal Medicine
DX: R09.1 Pleurisy (principal); R06.02 Shortness of breath; R07.81 Pleurodynia; Z03.818 Encounter for observation for suspected exposure to other biological agents ruled out; Z79.899 Other long term (current) drug therapy
CPT/HCPCS: 0241U; 36415; 71046; 80053; 83735; 83880; 84484; 85025; 93005; 99283; 99284

== ENCOUNTER → 2024-03-22 20:44 | Outpatient (BNV) | payer OTHER, SELFPAY | PROVIDERS: Emergency Provider Emergency Medicine; PCP Internal Medicine; Visit Provider Internal Medicine | DX: R94.31 Abnormal electrocardiogram [ECG] [EKG] (principal) | CPT/HCPCS: 93010 ==

== ENCOUNTER 2024-04-05 07:34 | Emergency (ER) | payer OTHER, SELFPAY ==
--- NOTE | ~2024-04-05 | XR_ITS ---
EXAMINATION: XR RIBS, RIGHT CLINICAL INFORMATION: Right-sided pain. COMPARISON: Chest radiograph 03/22/2024. TECHNIQUE: 3 views of the right ribs were obtained. FINDINGS: Stable appearance of the cardiomediastinal silhouette. Low lung volumes. Subjective mildly increased peribronchial thickening. Stable platelike opacity overlying the right midlung field, most likely scarring and subsegmental atelectasis. No pleural effusion. No pneumothorax. Unchanged asymmetric elevation of the right hemidiaphragm. No displaced rib fractures. Thoracolumbar compression deformities and vertebroplasty cement are redemonstrated, better characterized on prior radiographs of the thoracic and lumbar spine. Right upper quadrant surgical clips are seen. XR/XR ribs RT min 3V w CXR1V IMPRESSION: 1. Mildly increased peribronchial thickening which is nonspecific and could be associated with asthma, bronchitis, reactive airways disease or atypical infections. 2. No displaced rib fractures. Electronically signed by: Dia Hart MD 04/05/2024 09:04 AM EDT
[2024-04-05 07:38] VITALS: BP 159/81; PULSE 94; RESP 18; TEMP 36.1; O2SAT 96; BMI 28.5
--- NOTE | 2024-04-05 08:14 | ED_ITS ---
HPI - Fall General Chief Complaint: Fall Stated Complaint: Fall R rib pain Time Seen by Provider: 04/05/24 07:55 Source: patient Mode of arrival: ambulatory Limitations: no limitations History of Present Illness HPI Narrative: THIS IS A 63 YEARS OLD MALE PRESENTED TO THE EMERGENCY DEPARTMENT COMPLAINING OF RIGHT SIDE CHEST WALL PAIN. HE STATES THAT HE FELL IN THE SHOWER LAST NIGHT. HE HAS PAIN DURING INSPIRATION. DENIES ANY NECK PAIN DENIES ANY HEAD INJURY. HE DROVE HIMSELF TO THE EMERGENCY DEPARTMENT MD complaint: fall Onset (ago): day(s) (1) Fall from: standing Fall witnessed: no Place fall occurred: home Loss of consciousness: none Prolonged down time: no Symptoms prior to fall: none Context: tripped/slipped Location of injury: chest (RIGHT SIDE) Severity: moderate Quality: dull Associated symptoms (after fall): chest pain Related Data Home Medications ?Medication ?Instructions ?Recorded ?Confirmed hydroxyzine pamoate 50 mg capsule 100 mg PO BEDTIME PRN Anxiety 04/02/21 10/13/23 ustekinumab 90 mg/mL subcutaneous 90 mg subcut Q4W 04/02/21 10/13/23 syringe (Stelara) albuterol sulfate 90 mcg/actuation 2 puff inhalation Q4H PRN wheezing 10/13/23 10/13/23 aerosol inhaler (Ventolin HFA) budesonide 9 mg tablet,delayed and 9 mg PO QAM 10/13/23 10/13/23 extended release dapagliflozin propanediol 10 mg 10 mg DAILY 10/13/23 10/13/23 tablet (Farxiga) doxycycline monohydrate 100 mg 100 mg PO BID 10/13/23 10/13/23 capsule melatonin 5 mg capsule 5 mg PO BEDTIME PRN Sleep 10/13/23 10/13/23 metoprolol succinate 100 mg 100 mg PO DAILY 10/13/23 10/13/23 tablet,extended release 24 hr mirtazapine 30 mg tablet 30 mg BEDTIME 10/13/23 10/13/23 paroxetine HCl 40 mg tablet 40 mg PO DAILY 10/13/23 10/13/23 spironolactone 25 mg tablet 25 mg DAILY 10/13/23 10/13/23 upadacitinib 45 mg tablet,extended 45 mg PO DAILY 10/13/23 10/13/23 release 24 hr (Rinvoq) Previous Rx's ?Medication ?Instructions ?Recorded omeprazole 20 mg capsule,delayed 20 mg PO DAILY #30 caps 06/03/21 release commode #1 ea 08/21/21 tamsulosin 0.4 mg capsule 0.4 mg PO BEDTIME #30 caps 08/21/21 sucralfate 1 gram tablet 1 g PO BID #180 tabs 08/07/22 prednisone 20 mg tablet 20 mg PO DAILY #12 tabs 10/13/23 ibuprofen 600 mg tablet 600 mg PO Q8H PRN fever or pain 03/23/24 #20 tabs Allergies Allergy/AdvReac Type Severity Reaction Status Date / Time No Known Allergies Allergy Verified 04/05/24 07:41 Review of Systems Constitutional: Constitutional: Reports no additional constitutional complaints Cardiovascular: Cardiovascular: Reports no additional cardiovascular compla ints Respiratory: Respiratory: Reports no additional respiratory complaints [facility] Past Medical History Attestation statement: The following information was validated with the patient. Source: unable to obtain Medical History Mayda tropicalis infection SAM (generalized anxiety disorder) History of subarachnoid hemorrhage (~08/2016) Pneumomediastinum Suppression of immune system subtherapeutic Morbid obesity Acute respiratory distress syndrome (ARDS) CHF (congestive heart failure) Hypoxia Pneumonia due to COVID-19 virus (~06/2021) Anemia IBD (inflammatory bowel disease) Normocytic anemia Diarrhea Chronic idiopathic constipation Acute promyelocytic leukemia (~08/2016) Left sided abdominal pain Crohn disease (~2002) Elevated serum glutamic pyruvic transaminase (SGPT) level Thalamic pain syndrome (hyperesthetic) Renal stones Kidney disease Colitis (~2002) Hypertension Asthma Depression Anxiety Diabetes 1.5, managed as type 1 Surgical History History of bone marrow biopsy (~2016) History of esophagogastroduodenoscopy (EGD) (~2020) History of right knee surgery (~2016) History of surgery on right wrist (~2006) History of lithotripsy (~2017) History of rectal sphincterotomy (~2003) History of colonoscopy (~2020) History of cholecystectomy (~2011) History of hemorrhoidectomy (~2003) Social History Social History Household Members: Family Housing: Apartment Do you presently have visiting nurse or other home services: No Alcohol intake: current Alcohol intake frequency: does not drink Patient Tobacco Use Status: Never used Tobacco e-Cigarette/Vaping Use: Never Used Second Hand Smoke Exposure: No Substance Use Type: Crack/Cocaine Advance Directives: Yes Advance Directives on File: Yes Advance Directives Date on File: 04/04/21 Do you have a plan to hurt others: No Plan service: No Current occupational status: disabled Physical Exam Vital Signs: Vital Signs: Last Vital Signs Temp 97.0 F 04/05/24 07:38 Pulse 94 04/05/24 07:38 Resp 18 04/05/24 07:38 BP 159/81 H 04/05/24 07:38 Pulse Ox 96 04/05/24 07:38 O2 Del Method Room Air 04/05/24 07:38 BMI result Body Mass Index 28.5 HIS VITAL SIGNS ARE STABLE HE LOOKS WELL IS NOT TOXIC-APPEARING O2 SAT IS 96% ON ROOM AIR Const: General: cooperative, comfortable, no acute distress, well developed, alert, awake and Physically active Nutritional Appearance: average body habitus Orientation/consciousness: patient oriented x3 Limitations: no limitations HEENT: Head: Yes normal to inspection General nose exam: Normal external nose present Face and sinus: Yes normal facial exam Mouth: Normal oral and palatal mucosa present Neck: Neck: Yes normal visual inspection Chest: Chest palpation & inspection: normal inspection of the chest Resp: Other: TENDERNESS IN THE RIGHT CHEST WALL Effort & Inspection: normal respiratory effort and able to speak in complete sentences Auscultation: clear to auscultation bilaterally Cardio: Jugular venous distension: no JVD Rate: regular rate Rhythm: regular rhythm GI: Inspection: Yes normal to inspection Palpation (GI): Soft to palpation, not firm, nontender and no guarding Skin: General skin exam: no rashes or lesions noted and elasticity normal Rashes: no rashes Neuro: General: patient oriented x3 Course Reevaluation(s) Reevaluation #1: X-ray shows no displaced rib fracture I think at this point he can be discharged home his sat is 96% on room air Time: 09:21 Medications Administered Discontinued Medications Generic Name Dose Route Start Last Admin Trade Name Freq PRN Reason Stop Dose Admin Acetaminophen 975 mg 04/05/24 08:10 04/05/24 08:20 Acetaminophen 325 Mg Tablet PO 04/05/24 08:11 975 mg ONCE ONE Administration Medical Decision Making Medical Decision Making [facility] Narrative: PATIENT PRESENTED WITH A RIGHT CHEST WALL PAIN FELL LAST NIGHT WE WILL OBTAIN I MAGING OF THE CHEST RIBS Differential Diagnosis Differential Diagnoses: The differential diagnosis associated with the presentation includes RIB FRACTURE/PNEUMOTHORAX/PULMONARY CONTUSION Admission/Observation Consideration of admission/observation: Escalation of care including admission/observation considered Independent Interpretation I performed an independent interpretation of an: Plain X-Ray Interpretation: X-ray review interpreted by me as no acute fracture Radiology Impression Discussion of test interpretation with radiology: I have reviewed the radiologist's reading. Chronic Conditions Patient?s care impacted by: Hypertension Discharge Plan Discharge Clinical Impression: Acute chest wall pain Patient Disposition: Home, Self-Care Instructions: Chest Wall Pain (ED) Prescriptions: No Action sucralfate 1 gram tablet 1 g PO BID Qty: 180 1RF hydroxyzine pamoate 50 mg capsule 100 mg PO BEDTIME PRN (Reason: Anxiety) Stelara 90 mg/mL Syringe 90 mg SUBCUT Q4W Rx Instructions: last took on 09/16/23, will due 10/16/23 tamsulosin 0.4 mg Capsule 0.4 mg PO BEDTIME Qty: 30 0RF (DME) commode Kit See Rx Instructions .Route Qty: 1 0RF Rx Instructions: As directed need 3 in 1 bedside commode and shower chair omeprazole 20 mg capsule,delayed release(DR/EC) 20 mg PO DAILY Qty: 30 0RF metoprolol succinate 100 mg tablet extended release 24 hr 100 mg PO DAILY spironolactone 25 mg tablet 25 mg DAILY mirtazapine 30 mg tablet 30 mg BEDTIME albuterol sulfate [Ventolin HFA] 90 mcg/actuation HFA aerosol inhaler 2 puff inhalation Q4H PRN (Reason: wheezing) paroxetine HCl 40 mg tablet 40 mg PO DAILY melatonin 5 mg capsule 5 mg PO BEDTIME PRN (Reason: Sleep) budesonide 9 mg tablet,delayed and ext.release 9 mg PO QAM Rinvoq 45 mg tablet extended release 24 hr 45 mg PO DAILY prednisone 20 mg tablet 20 mg PO DAILY Qty: 12 0RF Rx Instructions: Take 3 tablets by mouth daily for 2 days then 2 tablets by mouth daily for 3 days. doxycycline monohydrate 100 mg capsule 100 mg PO BID Patient Comments: He states he started doxycycline 2 weeks ago, and has one more refill left om his medication. However pharmacy claims shows that it has not been filled since February 2023. dapagliflozin propanediol [Farxiga] 10 mg tablet 10 mg DAILY ibuprofen 600 mg tablet 600 mg PO Q8H PRN (Reason: fever or pain) Qty: 20 0RF Referrals: Luke Kamara III, MD [Primary Care Provider] - 1 day Print Language: [place]
[2024-04-05] MEDS: Acetaminophen 325 MG TABLET 975 MG PO (08:20)
[2024-04-05 09:36] VITALS: BP 159/81; PULSE 94; RESP 18; TEMP 36.1; O2SAT 96
== END 2024-04-05 09:37 | disposition home or self-care (01) ==
PROVIDERS: Emergency Provider Emergency Medicine; PCP Internal Medicine
DX: R07.89 Other chest pain (principal); E13.9 Other specified diabetes mellitus without complications; I10 Essential (primary) hypertension; K50.90 Crohn's disease, unspecified, without complications; Z79.899 Other long term (current) drug therapy
CPT/HCPCS: 71101; 99283

== ENCOUNTER 2024-06-09 13:37 | Emergency (ER) | payer OTHER, SELFPAY ==
[2024-06-09 13:40] VITALS: BP 137/72; PULSE 102; RESP 18; TEMP 36.9; O2SAT 94; BMI 28.5
--- NOTE | 2024-06-09 13:43 | ED_ITS ---
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 Unknown sick contacts. Denies chest pain or palpitations. Denies any hemoptysis. Denies any nausea, vomiting, diarrhea. MD complaint: fever, cough Onset (ago): day(s) Treatments prior to arrival: none Related Data Home Medications ?Medication ?Instructions ?Recorded ?Confirmed hydroxyzine pamoate 50 mg capsule 100 mg PO BEDTIME PRN Anxiety 04/02/21 10/13/23 ustekinumab 90 mg/mL subcutaneous 90 mg subcut Q4W 04/02/21 10/13/23 syringe (Stelara) albuterol sulfate 90 mcg/actuation 2 puff inhalation Q4H PRN wheezing 10/13/23 10/13/23 aerosol inhaler (Ventolin HFA) budesonide 9 mg tablet,delayed and 9 mg PO QAM 10/13/23 10/13/23 extended release dapagliflozin propanediol 10 mg 10 mg DAILY 10/13/23 10/13/23 tablet (Farxiga) doxycycline monohydrate 100 mg 100 mg PO BID 10/13/23 10/13/23 capsule melatonin 5 mg capsule 5 mg PO BEDTIME PRN Sleep 10/13/23 10/13/23 metoprolol succinate 100 mg 100 mg PO DAILY 10/13/23 10/13/23 tablet,extended release 24 hr mirtazapine 30 mg tablet 30 mg BEDTIME 10/13/23 10/13/23 paroxetine HCl 40 mg tablet 40 mg PO DAILY 10/13/23 10/13/23 spironolactone 25 mg tablet 25 mg DAILY 10/13/23 10/13/23 upadacitinib 45 mg tablet,extended 45 mg PO DAILY 10/13/23 10/13/23 release 24 hr (Rinvoq) Previous Rx's ?Medication ?Instructions ?Recorded omeprazole 20 mg capsule,delayed 20 mg PO DAILY #30 caps 06/03/21 release commode #1 ea 08/21/21 tamsulosin 0.4 mg capsule 0.4 mg PO BEDTIME #30 caps 08/21/21 sucralfate 1 gram tablet 1 g PO BID #180 tabs 08/07/22 prednisone 20 mg tablet 20 mg PO DAILY #12 tabs 10/13/23 ibuprofen 600 mg tablet 600 mg PO Q8H PRN fever or pain 03/23/24 #20 tabs benzonatate 100 mg capsule 100 mg PO TID PRN cough #20 caps 06/09/24 Allergies Allergy/AdvReac Type Severity Reaction Status Date / Time No Known Allergies Allergy Verified 06/09/24 13:41 Review of Systems 2 Review of Systems: As per HPI Yes all other systems are reviewed and are negative Constitutional: Constitutional: Reports as per HPI [facility] Past Medical History Medical History Mayda tropicalis infection SAM (generalized anxiety disorder) History of subarachnoid hemorrhage (~08/2016) Pneumomediastinum Suppression of immune system subtherapeutic Morbid obesity Acute respiratory distress syndrome (ARDS) CHF (congestive heart failure) Hypoxia Pneumonia due to COVID-19 virus (~06/2021) Anemia IBD (inflammatory bowel disease) Normocytic anemia Diarrhea Chronic idiopathic constipation Acute promyelocytic leukemia (~08/2016) Left sided abdominal pain Crohn disease (~2002) Elevated serum glutamic pyruvic transaminase (SGPT) level Thalamic pain syndrome (hyperesthetic) Renal stones Kidney disease Colitis (~2002) Hypertension Asthma Depression Anxiety Diabetes 1.5, managed as type 1 Surgical History History of bone marrow biopsy (~2016) History of esophagogastroduodenoscopy (EGD) (~2020) History of right knee surgery (~2016) History of surgery on right wrist (~2006) History of lithotripsy (~2017) History of rectal sphincterotomy (~2003) History of colonoscopy (~2020) History of cholecystectomy (~2011) History of hemorrhoidectomy (~2003) Social History Social History Household Members: Family Housing: Apartment Do you presently have visiting nurse or other home services: No Alcohol intake: current Alcohol intake frequency: does not drink Patient Tobacco Use Status: Never used Tobacco e-Cigarette/Vaping Use: Never Used Second Hand Smoke Exposure: No Substance Use Type: Crack/Cocaine Advance Directives: Yes Advance Directives on File: Yes Advance Directives Date on File: 04/04/21 Do you have a plan to hurt others: No Plan service: No Current occupational status: disabled Physical Exam ED Vital Signs: Vital Signs - 24 hr 06/09/24 13:40 06/09/24 16:50 06/09/24 17:45 Temperature 98.5 F 101.9 F H 99.8 F Pulse Rate 102 H 93 89 Respiratory Rate 18 20 20 Blood Pressure 137/72 124/57 L 126/81 Pulse Oximetry 94 97 97 Oxygen Delivery Method Room Air Room Air Room Air BMI result Body Mass Index 28.5 Vital signs have been reviewed and appear to be correct. Blood pressure normal. Heart rate normal. Respiratory rate normal. Temperature febrile on recheck, Tylenol ordered. Oxygen saturation normal. Const General: cooperative, healthy appearing and no acute distress Orientation/consciousness: oriented to person, oriented to place, oriented to time and patient oriented x3 Limitations: no limitations HENMT Head: Yes normocephalic and Yes atraumatic Ears: external ears normal General nose exam: Normal external nose present Face and sinus: Yes face symmetric Mouth: oropharynx normal and moist mucous membranes Throat: Yes uvula midline Eyes Pupils: Equal, round and reactive pupils present Neck Neck: Yes normal visual inspection and Yes supple Resp Effort & Inspection: normal respiratory effort and able to speak in complete sentences Auscultation: clear to auscultation bilaterally Cardio Rate: regular rate Rhythm: regular rhythm Heart sounds: S1 normal heart sound present and S2 normal heart sound present GI Palpation (GI): Soft to palpation and nontender Auscultation: normoactive bowel sounds General: Yes no CVA tenderness Back/Spine/Pelvis Back: no CVA tenderness Skin General skin exam: elasticity normal and turgor normal Neuro General: oriented to person, oriented to place, oriented to time, patient oriented x3, moves all extremities, no focal motor deficits and CN's II-XI intact bilaterally Cranial nerves: Yes Equal, round and reactive pupils present Cognition (Neuro): normal cognition Extrem General: Yes full ROM, Yes no pedal edema and Yes no calf tenderness Psych Mental Status: mental status grossly normal Affect: normal affect Thought process: Normal thought process present Course Course Course Narrative: RME, this is a rapid medical exam performed by [place] please refer to primary provider for complete H&P- 63-year-old with history of Crohn's disease, hypertension, leukemia, cocaine dependence presents for evaluation of lower abdominal pain, bilateral flank pain, cough, congestion. 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 On exam patient is awake, A+Ox3, VS WNL, afebrile, normal neurological exam without focal deficits, physical exam findings as above. Given reported symptoms and physical exam findings, initial differential includes but is not limited to viral illness, COVID, flu, RSV, bronchitis, pneumonia. Labs notable for no leukocytosis, chronic anemia, no significant electrolyte abnormalities, no evidence of GOLDEN. Viral serology positive for influenza A. Patient updated on results and all questions answered. Discussed with patient that this is a viral illness which will resolve on its own over time. Advised patient to ensure adequate rest and adequate fluid intake, isolate at home while symptomatic. Will send prescription for benzonatate for cough, advised patient to use Tylenol and ibuprofen as needed for fever or discomfort. Return precautions discussed at bedside. Follow up with PCP as needed. Patient verbalized understanding of and agreement with plan. Differential Diagnosis Differential Diagnoses: The differential diagnosis associated with the presentation includes As per [facility] Admission/Observation Consideration of admission/observation: Escalation of care including admission/observation considered Patient would have been admitted to the hospital had their work up had any findings where hospital admission was appropriate and their clinical presentation warranted hospital admission. Lab Data [facility] Lab Attestation statement: I reviewed the patient's lab results. as per mdm 06/09/24 14:16 06/09/24 14:16 Labs: Lab Results 06/09/24 Range/Units 14:16 WBC 6.1 (4.8-10.8) X10*3/uL RBC 4.02 L (4.60-5.80) X10*6/uL Hgb 12.5 L (14.0-18.0) g/dl Hct 37.3 L (42.0-52.0) % MCV 92.8 (80.0-98.0) fL MCH 31.1 (27.0-33.0) pg MCHC 33.5 (31.0-36.0) g/dl RDW 13.2 (11.0-16.0) % Plt Count 276 (160-400) X10*3/uL MPV 8.8 L (9.4-12.4) fL Immature Gran % (Auto) 0.3 (0.0-0.4) % Neut % (Auto) 80.6 H (45-73) % Lymph % (Auto) 9.6 L (20-40) % [place] % (Auto) 8.2 (2-11) % Eos % (Auto) 1.0 (0-4) % Baso % (Auto) 0.3 (0-2) % Lymph # (Auto) 0.6 L (1.2-4.9) X10*3/uL [place] # (Auto) 0.5 (0.1-1.2) X10*3/uL Eos # (Auto) 0.1 (0.0-0.4) X10*3/uL Baso # (Auto) 0.0 (0.0-0.2) X10*3/uL Abs Immat Gran (auto) 0.02 (0.00-0.03) X10*3/uL Absolute Neuts (auto) 4.9 (2.0-8.3) x10*3/uL Absolute Nucleated RBC 0.000 (0.0-0.012) X10*3/uL Nucleated RBC % (auto) 0.0 (0.0-0.2) /100WBC Sodium 141 (135-145) mmol/L Potassium 4.0 (3.3-5.1) mmol/L Chloride 105 (96-108) mmol/L Carbon Dioxide 28 (22-29) mmol/L Anion Gap 12 (12-20) BUN 14 (9-16) mg/dL Creatinine 0.87 (0.5-1.4) mg/dL Estim Creat Clear Calc 110.2 Estimated GFR > 60 Random Glucose 99 (60-115) mg/dL Calcium 8.7 D (8.4-10.2) mg/dL Total Bilirubin 0.7 (0.0-1.0) mg/dL AST 24 (5-37) U/L ALT 15 (0-40) U/L Alkaline Phosphatase 96 (39-117) U/L Total Protein 7.5 (6.5-8.0) g/dL Albumin 4.1 (3.5-5.0) g/dL Lipase 22 (8-78) U/L Urine Color Yellow Urine Appearance Clear Urine pH 5.5 (5.0-9.0) Ur Specific [place] 1.020 (1.005-1.025) Urine Protein Negative (Neg-Trace) mg/dL Urine Glucose (UA) Negative (Negative) mg/dL Urine Ketones Negative (Negative) mg/dL Urine Blood Trace H (Negative) Urine Nitrite Negative (Negative) Ur Leukocyte Esterase Negative (Negative) Urine RBC 3-5 H (0-2) /HPF Urine WBC 0-5 (0-5) /HPF Ur Squamous Epith Cells 0-2 (0-2) /HPF Urine Bacteria None Seen (None Seen) Hyaline Casts 0-2 (0-2) /LPF Influenza Type A (PCR) POSITIVE A (Negative) Influenza Type B (PCR) NEGATIVE (Negative) RSV RNA Qual (PCR) NEGATIVE (Negative) SARS-CoV-2 RNA (RT-PCR) NEGATIVE (Negative) External Record Review External record reviewed: Inpatient record, Office record and Outpatient record Prescription Management I considered prescription management with: Other Discharge Plan Discharge Clinical Impression: Influenza A Patient Disposition: Home, Self-Care Instructions: Influenza (DC), Flu Shot (Vaccine) for Adults (ED), Droplet Precautions (ED) Additional Instructions: You were evaluated in the emergency department today for cough and fever. Your flu test was positive. You should isolate at home for another 4 days and continue to wear mask while symptomatic after that. Your symptoms should resolve over time with rest and fluids. You are being prescribed benzonatate for cough. You can take 650 mg Tylenol or 600 mg ibuprofen every 6 hours as needed for fever or pain. Please follow-up with your primary care provider for any ongoing symptoms. Return to the emergency department if you develop worsening pain, fever not controlled with Tylenol and ibuprofen, chest pain, dizziness or lightheadedness, or any other concerning symptoms. Prescriptions: New benzonatate 100 mg capsule 100 mg PO TID PRN (Reason: cough) Qty: 20 0RF No Action sucralfate 1 gram tablet 1 g PO BID Qty: 180 1RF hydroxyzine pamoate 50 mg capsule 100 mg PO BEDTIME PRN (Reason: Anxiety) Stelara 90 mg/mL Syringe 90 mg SUBCUT Q4W Rx Instructions: last took on 09/16/23, will due 10/16/23 tamsulosin 0.4 mg Capsule 0.4 mg PO BEDTIME Qty: 30 0RF (DME) commode Kit See Rx Instructions .Route Qty: 1 0RF Rx Instructions: As directed need 3 in 1 bedside commode and shower chair omeprazole 20 mg capsule,delayed release(DR/EC) 20 mg PO DAILY Qty: 30 0RF metoprolol succinate 100 mg tablet extended release 24 hr 100 mg PO DAILY spironolactone 25 mg tablet 25 mg DAILY mirtazapine 30 mg tablet 30 mg BEDTIME albuterol sulfate [Ventolin HFA] 90 mcg/actuation HFA aerosol inhaler 2 puff inhalation Q4H PRN (Reason: wheezing) paroxetine HCl 40 mg tablet 40 mg PO DAILY melatonin 5 mg capsule 5 mg PO BEDTIME PRN (Reason: Sleep) budesonide 9 mg tablet,delayed and ext.release 9 mg PO QAM Rinvoq 45 mg tablet extended release 24 hr 45 mg PO DAILY prednisone 20 mg tablet 20 mg PO DAILY Qty: 12 0RF Rx Instructions: Take 3 tablets by mouth daily for 2 days then 2 tablets by mouth daily for 3 days. doxycycline monohydrate 100 mg capsule 100 mg PO BID Patient Comments: He states he started doxycycline 2 weeks ago, and has one more refill left om his medication. However pharmacy claims shows that it has not been filled since February 2023. dapagliflozin propanediol [Farxiga] 10 mg tablet 10 mg DAILY ibuprofen 600 mg tablet 600 mg PO Q8H PRN (Reason: fever or pain) Qty: 20 0RF Print Language: Swiss
[2024-06-09 14:21] LABS: MANUAL DIFF FLAG NO
[2024-06-09 14:22] LABS: Basophils Percent Auto 0.3 % (0-2); Eosinophils Absolute Auto 0.1 X10*3/uL (0.0-0.4); Hematocrit 37.3 % (42.0-52.0); Hemoglobin 12.5 g/dl (14.0-18.0); Imm Gran Abs Auto 0.02 X10*3/uL (0.00-0.03); Imm Gran Pct Auto 0.3 % (0.0-0.4); Lymphocytes Absolute Auto 0.6 X10*3/uL (1.2-4.9); Lymphocytes Percent Auto 9.6 % (20-40); Mean Corpuscular HGB Conc 33.5 g/dl (31.0-36.0); Mean Corpuscular Hemoglobin 31.1 pg (27.0-33.0); Mean Corpuscular Volume 92.8 fL (80.0-98.0); Mean Platelet Volume 8.8 fL (9.4-12.4); Monocytes Absolute Auto 0.5 X10*3/uL (0.1-1.2); Monocytes Percent Auto 8.2 % (2-11); Neutrophils Absolute Auto 4.9 x10*3/uL (2.0-8.3); Neutrophils Percent Auto 80.6 % (45-73); Platelet Count 276 X10*3/uL (160-400); Red Blood Count 4.02 X10*6/uL (4.60-5.80); Red Cell Distribution Width 13.2 % (11.0-16.0); White Blood Count 6.1 X10*3/uL (4.8-10.8)
[2024-06-09 14:25] LABS: Appearance Urine Clear; Color Urine Yellow; Glucose Urine UA Negative (Negative); Leukocyte Esterase Urine Negative (Negative); Nitrite Urine Negative (Negative); PH 5.5 (5.0-9.0); UMIC TRIGGER UACC YES; Urine Blood Trace (Negative); Urine Ketones Negative (Negative); Urine Protein Negative (Neg-Trace)
[2024-06-09 14:27] LABS: Bacteria Urine None Seen (None Seen); Hyaline Casts Urine 0-2 /LPF (0-2); Squamous Epithelial Cell Urine 0-2 /HPF (0-2); WBC Urine 0-5 /HPF (0-5)
[2024-06-09 14:35] LABS: Alanine Aminotransferase 15 U/L (0-40); Albumin Level 4.1 g/dL (3.5-5.0); Alkaline Phosphatase 96 U/L (39-117); Anion Gap 12 (12-20); Aspartate Amino Transferase 24 U/L (5-37); Bilirubin Total 0.7 mg/dL (0.0-1.0); Blood Urea Nitrogen 14 mg/dL (9-16); Calcium 8.7 mg/dL (8.4-10.2); Carbon Dioxide 28 mmol/L (22-29); Chloride 105 mmol/L (96-108); Creatinine Clr Calc Pharmacy 110.2; Estimated Glomerular Filt Rate > 60; Glucose Random 99 mg/dL (60-115); Lipase 22 U/L (8-78); Sodium 141 mmol/L (135-145); Total Protein 7.5 g/dL (6.5-8.0)
[2024-06-09 15:00] LABS: Influenza A PCR POSITIVE (Negative); Influenza B PCR NEGATIVE (Negative); Resp Syncy Virus RNA Qual PCR NEGATIVE (Negative); SARS COV2 PCR INHOUSE NEGATIVE (Negative)
[2024-06-09 16:50] VITALS: BP 124/57; PULSE 93; RESP 20; TEMP 38.8; O2SAT 97
[2024-06-09] MEDS: Acetaminophen 325 MG TABLET 975 MG PO (17:24)
[2024-06-09 17:45] VITALS: BP 126/81; PULSE 89; RESP 20; TEMP 37.7; O2SAT 97
[2024-06-09 18:07] VITALS: BP 126/81; PULSE 89; RESP 20; TEMP 37.7; O2SAT 97
== END 2024-06-09 18:10 | disposition home or self-care (01) ==
PROVIDERS: Physician Assistant; Emergency Provider Internal Medicine; PCP Internal Medicine
DX: J10.1 Influenza due to other identified influenza virus with other respiratory manifestations (principal); R05.9 Cough, unspecified; R50.9 Fever, unspecified; Z03.818 Encounter for observation for suspected exposure to other biological agents ruled out
CPT/HCPCS: 0241U; 80053; 81001; 83690; 85025; 99283

== ENCOUNTER 2024-06-12 11:23 | Emergency (ER) | payer OTHER, SELFPAY ==
--- NOTE | ~2024-06-12 | XR_ITS ---
CLINICAL HISTORY: cough, sob 2 view chest x-ray Comparison: CR/IN/SR - XR CHEST 2V - 03/22/24 21:15 EDT Findings: There is persistent elevation of the right hemidiaphragm with subjacent atelectasis. Mild chronic interstitial prominence. No focal consolidation or effusion. Cardiac and mediastinal contours are stable. No acute fracture. IMPRESSION: Chronic interstitial prominence and elevation of the right hemidiaphragm. This document has been electronically signed by: Rob Tony MD on 06/12/2024 12:18:37
[2024-06-12 11:30] VITALS: BP 134/72; PULSE 102; RESP 22; TEMP 36.7; O2SAT 94; BMI 28.5
--- NOTE | 2024-06-12 11:30 | ED.URI ---
HPI - URI/Sore Throat General Chief Complaint: Dyspnea Stated Complaint: diff breathing Time Seen by Provider: 06/12/24 12:52 Source: patient Mode of arrival: ambulatory Limitations: no limitations History of Present Illness ED Provider: DR. Pryor HPI Narrative: 63-year-old male came in for persistent coughing with clear phlegm and difficulty breathing, patient was seen on 06/09 for similar symptoms returned today for persistent of coughing. Reports sick contact that he was exposed to last week, no recent travel, no lower extremity swelling or tenderness. History of bronchial asthma. Related Data Home Medications ?Medication ?Instructions ?Recorded ?Confirmed hydroxyzine pamoate 50 mg capsule 100 mg PO BEDTIME PRN Anxiety 04/02/21 10/13/23 ustekinumab 90 mg/mL subcutaneous 90 mg subcut Q4W 04/02/21 10/13/23 syringe (Stelara) albuterol sulfate 90 mcg/actuation 2 puff inhalation Q4H PRN wheezing 10/13/23 10/13/23 aerosol inhaler (Ventolin HFA) budesonide 9 mg tablet,delayed and 9 mg PO QAM 10/13/23 10/13/23 extended release dapagliflozin propanediol 10 mg 10 mg DAILY 10/13/23 10/13/23 tablet (Farxiga) doxycycline monohydrate 100 mg 100 mg PO BID 10/13/23 10/13/23 capsule melatonin 5 mg capsule 5 mg PO BEDTIME PRN Sleep 10/13/23 10/13/23 metoprolol succinate 100 mg 100 mg PO DAILY 10/13/23 10/13/23 tablet,extended release 24 hr mirtazapine 30 mg tablet 30 mg BEDTIME 10/13/23 10/13/23 paroxetine HCl 40 mg tablet 40 mg PO DAILY 10/13/23 10/13/23 spironolactone 25 mg tablet 25 mg DAILY 10/13/23 10/13/23 upadacitinib 45 mg tablet,extended 45 mg PO DAILY 10/13/23 10/13/23 release 24 hr (Rinvoq) Previous Rx's ?Medication ?Instructions ?Recorded omeprazole 20 mg capsule,delayed 20 mg PO DAILY #30 caps 06/03/21 release commode #1 ea 08/21/21 tamsulosin 0.4 mg capsule 0.4 mg PO BEDTIME #30 caps 08/21/21 sucralfate 1 gram tablet 1 g PO BID #180 tabs 08/07/22 prednisone 20 mg tablet 20 mg PO DAILY #12 tabs 10/13/23 ibuprofen 600 mg tablet 600 mg PO Q8H PRN fever or pain 03/23/24 #20 tabs benzonatate 100 mg capsule 100 mg PO TID PRN cough #20 caps 06/09/24 albuterol sulfate 90 mcg/actuation 2 inh inhalation Q4-6H PRN 06/12/24 breath activated powder inhaler shortness of breath or wheezing #1 ea azithromycin 250 mg tablet See Rx Instructions PO .COMPLEX #6 06/12/24 (Zithromax Z-Reed) tabs guaifenesin 200 mg/5 mL oral liquid 200 mg (5 mL) PO Q4H PRN cough 06/12/24 #118 mL prednisone 20 mg tablet 20 mg PO BID #8 tabs 06/12/24 Allergies Allergy/AdvReac Type Severity Reaction Status Date / Time No Known Allergies Allergy Verified 06/12/24 11:35 Review of Systems Review of Systems: All other systems are reviewed and are negative Constitutional: Reports as per HPI and Reports no additional constitutional complaints Eyes: Reports as per HPI and Reports no additional eye complaints Reports system reviewed and no additional complaints, except as documented Cardiovascular: Reports as per HPI and Reports no additional cardiovascular complaints Respiratory: Reports as per HPI and Reports no additional respiratory complaints Gastrointestinal: Reports as per HPI and Reports no additional gastrointestinal complaints Genitourinary: Reports no additional female genitourinary complaints Musculoskeletal: Reports no additional musculoskeletal complaints Skin/Breast: Reports system reviewed and no additional complaints, except as docu Psychiatric: Reports no additional psychiatric complaints Endocrine: Reports no additional endocrine complaints Hematologic/Lymphatic: Reports no additional hematologic/lymphatic complaints Allergic/Immunologic: Reports no additional allergic/immunologic complaints Reports system reviewed and no additional complaints, except as documented and Reports Abnormal speech present [facility] Past Medical History Medical History Mayda tropicalis infection SAM (generalized anxiety disorder) History of subarachnoid hemorrhage (~08/2016) Pneumomediastinum Suppression of immune system subtherapeutic Morbid obesity Acute respiratory distress syndrome (ARDS) CHF (congestive heart failure) Hypoxia Pneumonia due to COVID-19 virus (~06/2021) Anemia IBD (inflammatory bowel disease) Normocytic anemia Diarrhea Chronic idiopathic constipation Acute promyelocytic leukemia (~08/2016) Left sided abdominal pain Crohn disease (~2002) Elevated serum glutamic pyruvic transaminase (SGPT) level Thalamic pain syndrome (hyperesthetic) Renal stones Kidney disease Colitis (~2002) Hypertension Asthma Depression Anxiety Diabetes 1.5, managed as type 1 Surgical History History of bone marrow biopsy (~2016) History of esophagogastroduodenoscopy (EGD) (~2020) History of right knee surgery (~2016) History of surgery on right wrist (~2006) History of lithotripsy (~2017) History of rectal sphincterotomy (~2003) History of colonoscopy (~2020) History of cholecystectomy (~2011) History of hemorrhoidectomy (~2003) Social History Social History Household Members: Family Housing: Apartment Do you presently have visiting nurse or other home services: No Alcohol intake: current Alcohol intake frequency: a few times a month Alcohol type: beer Patient Tobacco Use Status: Never used Tobacco Smoked in Last 30 Days: No e-Cigarette/Vaping Use: Never Used Second Hand Smoke Exposure: No Use of substances other than those prescribed or required for medical reasons: No Substance Use Type: Crack/Cocaine Advance Directives: Yes Advance Directives on File: Yes Advance Directives Date on File: 04/04/21 Do you have a plan to hurt others: No Plan service: No Current occupational status: disabled Physical Exam Vital Signs: Vital Signs: Last Vital Signs Temp 98.1 F 06/12/24 11:30 Pulse 92 06/12/24 12:17 Resp 21 H 06/12/24 12:17 BP 134/72 06/12/24 11:30 Pulse Ox 94 06/12/24 11:30 O2 Del Method Room Air 06/12/24 11:30 BMI result Body Mass Index 28.5 Vital signs have been reviewed and appear to be correct. Blood pressure elevated. Heart rate normal. Respiratory rate normal. Temperature normal. Oxygen saturation normal. Appearance: Alert. Oriented X3. No acute distress. Head: Normal external exam. Normocephalic. Atraumatic. No Mejia signs noted. No raccoon eyes noted Eyes: PERRLA. EOMI. Conjunctiva and sclera normal. Eyelids normal. ENT: TM's Normal. Pharynx normal. Uvula midline. Moist mucous membranes. No trismus noted. No drooling noted. No muffled voice noted. Neck: Normal inspection. Neck supple. FROM. No adenopathy. Thyroid Normal. No meningeal signs. No neck mass noted. CVS: Normal heart rate and rhythm. Heart sound normal. No murmurs noted. Pulses normal throughout. Respiratory: No respiratory distress. Painless inspiration. Breath sounds normal. No wheezes/rales/rhonchi noted. Chest nontender. No accessory muscle usage noted or decreased air movement noted. Abdomen: Soft and nontender. Bowel sounds normal in all 4 quadrants. No distention noted. No organomegaly noted. No visible injury noted. Back: No CVA tenderness. Full range of motion noted. Skin: Skin warm and dry. Normal skin color. Normal skin turgor. No rashes/lesions/lacerations noted. Extremities: No lower extremity edema. Extremities exhibit normal range of motion. Extremities nontender. Neuro: Oriented X 3. Cranial nerve exam: II-XII are grossly intact No motor deficit. No sensory deficit. Reflexes normal. Course Course Course Narrative: This is a Rapid Medical Exam performed in triage by Lauren Scanlon PA-C. Full HPI, ROS and PE to be performed by primary ED provider. 63-year-old male with history of Crohn's disease, HTN, acute promyelocytic leukemia, cocaine abuse, SAH in 2017, CHF, IBD, DM presenting to the ED c/o cough, SOB, chest discomfort with coughing, and LE edema x4 days. Was evaluated in our ED on 06/09 diagnosed with influenza a, sent home with Shara Tirado. Reports no symptomatic improvement. PE: Talking in short sentences, appears short of breath, diffuse expiratory wheeze noted. Plan: EKG, labs, CXR, viral studies, ED brown protocol Reevaluation(s) Reevaluation #1: Acute bronchitis secondary to a flu (flu symptoms greater than 72 hours). Continue with bronchodilator, steroids, and add Z-Reed for treatment. Time: 15:00 Medications Administered Discontinued Medications Generic Name Dose Route Start Last Admin Trade Name Freq PRN Reason Stop Dose Admin Albuterol Sulfate 2.5 mg/ 0 mg 01/04/25 12:17 06/12/24 12:22 Albuterol/Ipratropium 3 ml INHALE 06/12/24 12:18 5 dose ONCE ONE Administration Medical Decision Making Differential Diagnosis Differential Diagnoses: The differential diagnosis associated with the presentation includes (Pneumonia, pneumothorax, pleural effusion, viral infection, asthma exacerbation, electrolyte derangement, severe anemia.) Admission/Observation Consideration of admission/observation: Escalation of care including admission/observation considered Lab Data MDM Lab Attestation statement: I reviewed the patient's lab results. 06/12/24 12:07 06/12/24 12:07 Labs: Lab Results 06/12/24 Range/Units 12:07 WBC 4.7 L (4.8-10.8) X10*3/uL RBC 4.14 L (4.60-5.80) X10*6/uL Hgb 12.7 L (14.0-18.0) g/dl Hct 38.1 L (42.0-52.0) % MCV 92.0 (80.0-98.0) fL MCH 30.7 (27.0-33.0) pg MCHC 33.3 (31.0-36.0) g/dl RDW 13.2 (11.0-16.0) % Plt Count 232 (160-400) X10*3/uL MPV 8.7 L (9.4-12.4) fL Immature Gran % (Auto) 0.2 (0.0-0.4) % Neut % (Auto) 65.8 (45-73) % Lymph % (Auto) 20.8 (20-40) % Weber % (Auto) 12.8 H (2-11) % Eos % (Auto) 0.0 (0-4) % Baso % (Auto) 0.4 (0-2) % Lymph # (Auto) 1.0 L (1.2-4.9) X10*3/uL Weber # (Auto) 0.6 (0.1-1.2) X10*3/uL Eos # (Auto) 0.0 (0.0-0.4) X10*3/uL Baso # (Auto) 0.0 (0.0-0.2) X10*3/uL Abs Immat Gran (auto) 0.01 (0.00-0.03) X10*3/uL Absolute Neuts (auto) 3.1 (2.0-8.3) x10*3/uL Absolute Nucleated RBC 0.000 (0.0-0.012) X10*3/uL Nucleated RBC % (auto) 0.0 (0.0-0.2) /100WBC PT 12.8 H (10.9-12.4) SEC INR 1.1 (0.9-1.1) Sodium 140 (135-145) mmol/L Potassium 3.4 (3.3-5.1) mmol/L Chloride 106 (96-108) mmol/L Carbon Dioxide 26 (22-29) mmol/L Anion Gap 11 L (12-20) BUN 14 (9-16) mg/dL Creatinine 0.96 (0.5-1.4) mg/dL Estim Creat Clear Calc 99.8 Estimated GFR > 60 Random Glucose 116 H (60-115) mg/dL Calcium 8.8 (8.4-10.2) mg/dL Magnesium 2.0 (1.6-2.6) mg/dL Total Bilirubin 0.3 (0.0-1.0) mg/dL Direct Bilirubin 0.2 (0.0-0.5) mg/dL AST 63 H (5-37) U/L ALT 20 (0-40) U/L Alkaline Phosphatase 77 (39-117) U/L Troponin I High Sens 5.2 (<3.5-35.0) ng/L B-Natriuretic Peptide < 10 (<100) pg/mL Total Protein 7.2 (6.5-8.0) g/dL Albumin 3.7 (3.5-5.0) g/dL Influenza Type A (PCR) POSITIVE A (Negative) Influenza Type B (PCR) NEGATIVE (Negative) RSV RNA Qual (PCR) NEGATIVE (Negative) SARS-CoV-2 RNA (RT-PCR) NEGATIVE (Negative) Independent Interpretation I performed an independent interpretation of an: Plain X-Ray (Chest:Chronic interstitial prominence and elevation of the right hemidiaphragm.) Radiology Impression Discussion of test interpretation with radiology: I have reviewed the radiologist's reading. Discharge Plan Discharge Clinical Impression: Influenza A, Bronchopneumonia Patient Disposition: Still a Patient Instructions: Influenza (ED) Prescriptions: New albuterol sulfate 90 mcg/actuation aerosol powdr breath activated 2 inh inhalation Q4-6H PRN (Reason: shortness of breath or wheezing) Qty: 1 0RF azithromycin [Zithromax Z-Reed] 250 mg tablet See Rx Instructions .ROUTE .COMPLEX Qty: 6 0RF Rx Instructions: For 250 mg dose pack: take 500 mg today (day 1), then 250 mg for 4 days (days 2-5) prednisone 20 mg tablet 20 mg PO BID Qty: 8 0RF guaifenesin 200 mg/5 mL liquid 200 mg PO Q4H PRN (Reason: cough) Qty: 118 0RF No Action sucralfate 1 gram tablet 1 g PO BID Qty: 180 1RF hydroxyzine pamoate 50 mg capsule 100 mg PO BEDTIME PRN (Reason: Anxiety) Stelara 90 mg/mL Syringe 90 mg SUBCUT Q4W Rx Instructions: last took on 09/16/23, will due 10/16/23 tamsulosin 0.4 mg Capsule 0.4 mg PO BEDTIME Qty: 30 0RF (DME) commode Kit See Rx Instructions .Route Qty: 1 0RF Rx Instructions: As directed need 3 in 1 bedside commode and shower chair omeprazole 20 mg capsule,delayed release(DR/EC) 20 mg PO DAILY Qty: 30 0RF benzonatate 100 mg capsule 100 mg PO TID PRN (Reason: cough) Qty: 20 0RF metoprolol succinate 100 mg tablet extended release 24 hr 100 mg PO DAILY spironolactone 25 mg tablet 25 mg DAILY mirtazapine 30 mg tablet 30 mg BEDTIME albuterol sulfate [Ventolin HFA] 90 mcg/actuation HFA aerosol inhaler 2 puff inhalation Q4H PRN (Reason: wheezing) paroxetine HCl 40 mg tablet 40 mg PO DAILY melatonin 5 mg capsule 5 mg PO BEDTIME PRN (Reason: Sleep) budesonide 9 mg tablet,delayed and ext.release 9 mg PO QAM Rinvoq 45 mg tablet extended release 24 hr 45 mg PO DAILY prednisone 20 mg tablet 20 mg PO DAILY Qty: 12 0RF Rx Instructions: Take 3 tablets by mouth daily for 2 days then 2 tablets by mouth daily for 3 days. doxycycline monohydrate 100 mg capsule 100 mg PO BID Patient Comments: He states he started doxycycline 2 weeks ago, and has one more refill left om his medication. However pharmacy claims shows that it has not been filled since February 2023. dapagliflozin propanediol [Farxiga] 10 mg tablet 10 mg DAILY ibuprofen 600 mg tablet 600 mg PO Q8H PRN (Reason: fever or pain) Qty: 20 0RF Print Language: Wolof
--- NOTE | 2024-06-12 11:34 | ECG_ITS ---
Test Reason : SOB, CHEST PAIN Blood Pressure : / mmHG Vent. Rate : 093 BPM Atrial Rate : 093 BPM P-R Int : 160 ms QRS Dur : 140 ms QT Int : 384 ms P-R-T Axes : 008 -41 027 degrees QTc Int : 477 ms Normal sinus rhythm Left axis deviation Right bundle branch block Abnormal ECG When compared with ECG of 22-MAR-2024 20:59, No significant change was found Referred By: Lauren Scanlon Electronically Signed By:MONICA MESSINA MD
--- NOTE | 2024-06-12 12:10 | MHC.EDTECH ---
EKG delayed due to patient being taken to X-ray.
[2024-06-12 12:11] LABS: MANUAL DIFF FLAG NO
[2024-06-12 12:13] LABS: Basophils Percent Auto 0.4 % (0-2); Hematocrit 38.1 % (42.0-52.0); Hemoglobin 12.7 g/dl (14.0-18.0); Imm Gran Abs Auto 0.01 X10*3/uL (0.00-0.03); Imm Gran Pct Auto 0.2 % (0.0-0.4); Lymphocytes Percent Auto 20.8 % (20-40); Mean Corpuscular HGB Conc 33.3 g/dl (31.0-36.0); Mean Corpuscular Hemoglobin 30.7 pg (27.0-33.0); Mean Platelet Volume 8.7 fL (9.4-12.4); Monocytes Absolute Auto 0.6 X10*3/uL (0.1-1.2); Monocytes Percent Auto 12.8 % (2-11); Neutrophils Absolute Auto 3.1 x10*3/uL (2.0-8.3); Neutrophils Percent Auto 65.8 % (45-73); Platelet Count 232 X10*3/uL (160-400); Red Blood Count 4.14 X10*6/uL (4.60-5.80); Red Cell Distribution Width 13.2 % (11.0-16.0); White Blood Count 4.7 X10*3/uL (4.8-10.8)
[2024-06-12 12:17] VITALS: PULSE 92; RESP 21; O2SAT 98
--- NOTE | 2024-06-12 12:17 | PC.NURSE ---
Pt tachypneic, SOB and reporting chest and back pain with cough/deep inspiration; pt recently dx'd with Flu A n Tessalon perles with no relief of sx's; afebrile at this time; LS with diffuse bilateral wheezes all diggs noted on auscultation; pt speaking short sentences; 95% SAO2 on RA; placed on 2 ltr NC for work of breathing with + decrease in RR to 24
[2024-06-12 12:21] LABS: INTERNATIONAL NORM RATIO 1.1 (0.9-1.1); Prothrombin Time 12.8 SEC (10.9-12.4)
[2024-06-12] MEDS: Albuterol Sulfate 2.5 MG, Albuterol/Iprat 2.5/0.5MG 3 ML 3 ML INHALE (12:22)
[2024-06-12 12:27] LABS: Alanine Aminotransferase 20 U/L (0-40); Albumin Level 3.7 g/dL (3.5-5.0); Alkaline Phosphatase 77 U/L (39-117); Anion Gap 11 (12-20); Aspartate Amino Transferase 63 U/L (5-37); Bilirubin Direct 0.2 mg/dL (0.0-0.5); Bilirubin Total 0.3 mg/dL (0.0-1.0); Blood Urea Nitrogen 14 mg/dL (9-16); Calcium 8.8 mg/dL (8.4-10.2); Carbon Dioxide 26 mmol/L (22-29); Chloride 106 mmol/L (96-108); Creatinine Clr Calc Pharmacy 99.8; Estimated Glomerular Filt Rate > 60; Glucose Random 116 mg/dL (60-115); Potassium 3.4 mmol/L (3.3-5.1); Sodium 140 mmol/L (135-145); Total Protein 7.2 g/dL (6.5-8.0)
[2024-06-12 12:32] LABS: B Type Natriuretic Peptide < 10 pg/mL (<100)
[2024-06-12 12:33] LABS: Troponin-I High Sensitivity 5.2 ng/L (<3.5-35.0)
[2024-06-12 13:02] LABS: Influenza A PCR POSITIVE (Negative); Influenza B PCR NEGATIVE (Negative); Resp Syncy Virus RNA Qual PCR NEGATIVE (Negative); SARS COV2 PCR INHOUSE NEGATIVE (Negative)
[2024-06-12] MEDS: Azithromycin 500 MG TABLET PO (13:21)
[2024-06-12] MEDS: methylPREDNISolone Sod Succ 125 MG/2 ML VIAL IVPUSH (13:21)
[2024-06-12 13:23] VITALS: PULSE 108; RESP 20; O2SAT 94
[2024-06-12] MEDS: Albuterol Sulfate 2.5 MG, Albuterol Sulfate (0.083%) 2.5 MG 5 MG INHALE (13:28)
[2024-06-12 14:39] VITALS: BP 106/55; PULSE 93; RESP 18; TEMP 37.2; O2SAT 93
[2024-06-12 14:40] VITALS: BP 138/74; PULSE 106; RESP 16; TEMP 37.2; O2SAT 92
--- NOTE | 2024-06-12 14:41 | PC.NURSE ---
LS coarse throughout but +decreased wheezes; pt speaking full sentences, tolerating PO fluids; vss; declined pain meds during visit; RR improved to 18RR
[2024-06-12 14:46] VITALS: BP 138/74; PULSE 106; RESP 16; TEMP 37.2; O2SAT 92
== END 2024-06-12 14:52 | disposition home or self-care (01) ==
PROVIDERS: Physician Assistant; Emergency Provider Emergency Medicine; PCP Internal Medicine
DX: J10.08 Influenza due to other identified influenza virus with other specified pneumonia (principal); J12.89 Other viral pneumonia; R06.02 Shortness of breath; Z03.818 Encounter for observation for suspected exposure to other biological agents ruled out; F14.20 Cocaine dependence, uncomplicated; E11.22 Type 2 diabetes mellitus with diabetic chronic kidney disease; I13.0 Hypertensive heart and chronic kidney disease with heart failure and stage 1 through stage 4 chronic kidney disease, or unspecified chronic kidney disease; N18.9 Chronic kidney disease, unspecified; I50.9 Heart failure, unspecified; D64.9 Anemia, unspecified; J80 Acute respiratory distress syndrome; J45.909 Unspecified asthma, uncomplicated; Z85.6 Personal history of leukemia
CPT/HCPCS: 0241U; 36415; 71046; 80048; 80076; 83735; 83880; 84484; 85025; 85610; 93005; 94640; 96374; 99285; J2919

== ENCOUNTER → 2024-06-12 11:34 | Outpatient (BNV) | payer OTHER, SELFPAY | PROVIDERS: PCP Internal Medicine; Visit Provider Radiology Vascular & Interventional Radiology | DX: J84.9 Interstitial pulmonary disease, unspecified (principal); R06.02 Shortness of breath | CPT/HCPCS: 71046 ==

== ENCOUNTER → 2024-06-12 11:34 | Outpatient (BNV) | payer OTHER, SELFPAY | PROVIDERS: Emergency Provider Emergency Medicine; PCP Internal Medicine; Visit Provider Internal Medicine Cardiovascular Disease | DX: R94.31 Abnormal electrocardiogram [ECG] [EKG] (principal) | CPT/HCPCS: 93010 ==

== ENCOUNTER 2024-11-02 00:18 | Inpatient (IN) | payer OTHER, SELFPAY ==
[2024-11-02] VITALS (20 sets, daily range): BP systolic 129–180; BP diastolic 38–72; PULSE 28–37; RESP 8–26; TEMP 36.3–36.9; O2SAT 92–98; BMI 26.2
--- NOTE | 2024-11-02 | ECG_ITS ---
Test Reason : Yfn Blood Pressure : */* mmHG Vent. Rate : 36 BPM Atrial Rate : 36 BPM P-R Int : 244 ms QRS Dur : 134 ms QT Int : 544 ms P-R-T Axes : 45 -21 20 degrees QTcB Int : 420 ms Normal sinus rhythm with 2nd degree A-V block Incomplete right bundle branch block Abnormal ECG When compared with ECG of 02-Nov-2024 00:39, No significant change was found Referred By: Jose Sharma Electronically Signed By: MONICA MESSINA MD
--- NOTE | ~2024-11-02 | XR_ITS ---
CLINICAL HISTORY: sob, chf 1 view chest x-ray Comparison: CR - XR CHEST 2V - 06/12/24 11:55 EST Findings: The lungs are clear. No effusion or pneumothorax. Loops chronic asymmetric elevation of the right hemidiaphragm. Heart size is normal. No acute fracture. IMPRESSION: 1. No acute findings. This document has been electronically signed by: Willis Griggs MD on 11/02/2024 02:25:03
--- NOTE | 2024-11-02 00:26 | ECG_ITS ---
Test Reason : SOB/NED Blood Pressure : */* mmHG Vent. Rate : 38 BPM Atrial Rate : 38 BPM P-R Int : 224 ms QRS Dur : 126 ms QT Int : 530 ms P-R-T Axes : 3 -35 7 degrees QTcB Int : 421 ms Normal sinus rhythm with 2nd degree A-V block Possible Left atrial enlargement Incomplete right bundle branch block Left axis deviation Left ventricular hypertrophy with QRS widening ( R in aVL ) Abnormal ECG When compared with ECG of 12-Jun-2024 12:04, Second degree AV block is present Vent. rate has decreased by 55 bpm Right bundle branch block is no longer Present Referred By: Lola Coffey Electronically Signed By: MONICA MESSINA MD
[2024-11-02 00:35] LABS: MANUAL DIFF FLAG NO
[2024-11-02 00:45] LABS: Basophils Percent Auto 0.4 % (0-2); Eosinophils Absolute Auto 0.1 X10*3/uL (0.0-0.4); Hematocrit 44.7 % (42.0-52.0); Hemoglobin 14.6 g/dl (14.0-18.0); Imm Gran Abs Auto 0.03 X10*3/uL (0.00-0.03); Imm Gran Pct Auto 0.4 % (0.0-0.4); Lymphocytes Absolute Auto 2.5 X10*3/uL (1.2-4.9); Lymphocytes Percent Auto 29.3 % (20-40); Mean Corpuscular HGB Conc 32.7 g/dl (31.0-36.0); Mean Corpuscular Hemoglobin 30.9 pg (27.0-33.0); Mean Corpuscular Volume 94.5 fL (80.0-98.0); Mean Platelet Volume 10.3 fL (9.4-12.4); Monocytes Absolute Auto 0.8 X10*3/uL (0.1-1.2); Monocytes Percent Auto 9.1 % (2-11); Neutrophils Percent Auto 59.8 % (45-73); Platelet Count 277 X10*3/uL (160-400); Red Blood Count 4.73 X10*6/uL (4.60-5.80); White Blood Count 8.4 X10*3/uL (4.8-10.8)
[2024-11-02 00:56] LABS: Anion Gap 18 (12-20); Blood Urea Nitrogen 22 mg/dL (9-16); Calcium 9.1 mg/dL (8.4-10.2); Carbon Dioxide 16 mmol/L (22-29); Chloride 112 mmol/L (96-108); Creatinine Clr Calc Pharmacy 60.7; Estimated Glomerular Filt Rate 49; Glucose Random 86 mg/dL (60-115); Potassium 4.5 mmol/L (3.3-5.1); Sodium 141 mmol/L (135-145)
[2024-11-02 00:57] LABS: Prothrombin Time 11.1 SEC (10.9-12.4)
--- NOTE | 2024-11-02 01:07 | ED_ITS ---
HPI - General Adult General Chief complaint: Dyspnea Stated complaint: sob & back pain Time Seen by Provider: 11/02/24 00:35 Source: patient Mode of arrival: ambulatory Limitations: no limitations History of Present Illness ED Provider: Dr. Lola Coffey HPI narrative: Patient comes to the emergency room complaining of 3-4 days of shortness of breath, much worse with exertion or going up the stairs. Patient reports 1 episode of diarrhea couple of days ago. Overall, patient states that he feels very fatigued. Patient denies chest pain. Denies any URIs or UTI symptoms. Patient denies fever or chills. Patient states that he has not abdominal pain, couple of days ago he had 1 episode of diarrhea. Denies any diarrhea in the last 48 hours Related Data Home Medications ?Medication ?Instructions ?Recorded ?Confirmed hydroxyzine pamoate 50 mg capsule 100 mg PO BEDTIME PRN Anxiety 04/02/21 10/13/23 ustekinumab 90 mg/mL subcutaneous 90 mg subcut Q4W 04/02/21 10/13/23 syringe (Stelara) albuterol sulfate 90 mcg/actuation 2 puff inhalation Q4H PRN wheezing 10/13/23 10/13/23 aerosol inhaler (Ventolin HFA) budesonide 9 mg tablet,delayed and 9 mg PO QAM 10/13/23 10/13/23 extended release dapagliflozin propanediol 10 mg 10 mg DAILY 10/13/23 10/13/23 tablet (Farxiga) doxycycline monohydrate 100 mg 100 mg PO BID 10/13/23 10/13/23 capsule melatonin 5 mg capsule 5 mg PO BEDTIME PRN Sleep 10/13/23 10/13/23 metoprolol succinate 100 mg 100 mg PO DAILY 10/13/23 10/13/23 tablet,extended release 24 hr mirtazapine 30 mg tablet 30 mg BEDTIME 10/13/23 10/13/23 paroxetine HCl 40 mg tablet 40 mg PO DAILY 10/13/23 10/13/23 spironolactone 25 mg tablet 25 mg DAILY 10/13/23 10/13/23 upadacitinib 45 mg tablet,extended 45 mg PO DAILY 10/13/23 10/13/23 release 24 hr (Rinvoq) Previous Rx's ?Medication ?Instructions ?Recorded omeprazole 20 mg capsule,delayed 20 mg PO DAILY #30 caps 06/03/21 release commode #1 ea 08/21/21 tamsulosin 0.4 mg capsule 0.4 mg PO BEDTIME #30 caps 08/21/21 sucralfate 1 gram tablet 1 g PO BID #180 tabs 08/07/22 prednisone 20 mg tablet 20 mg PO DAILY #12 tabs 10/13/23 ibuprofen 600 mg tablet 600 mg PO Q8H PRN fever or pain 03/23/24 #20 tabs benzonatate 100 mg capsule 100 mg PO TID PRN cough #20 caps 06/09/24 albuterol sulfate 2.5 mg/3 mL 2.5 mg (3 mL) inhalation QID PRN 06/12/24 (0.083 %) solution for nebulization shortness of breath or wheezing #75 mL albuterol sulfate 90 mcg/actuation 2 inh inhalation Q4-6H PRN 06/12/24 breath activated powder inhaler shortness of breath or wheezing #1 ea azithromycin 250 mg tablet See Rx Instructions PO .COMPLEX #6 06/12/24 (Zithromax Z-Reed) tabs guaifenesin 200 mg/5 mL oral liquid 200 mg (5 mL) PO Q4H PRN cough 06/12/24 #118 mL prednisone 20 mg tablet 20 mg PO BID #8 tabs 06/12/24 Allergies Allergy/AdvReac Type Severity Reaction Status Date / Time No Known Allergies Allergy Verified 11/02/24 00:29 Review of Systems 2 Review of Systems: Constitutional : No Weight loss, No Fever, No Chills, No Night Sweats, complaining of fatigue ENT/Mouth : No Hearing loss, No Ear Pain, No Nasal Congestion, No Sinus Pain, No Hoarseness, No sore throat, No Rhinorrhea, No Swallowing Difficulty Eyes: No Eye Pain, No Swelling, No Redness, No Foreign Body, No Discharge, No Vision Changes Cardiovascular : No chest pain, complaining of dyspnea on exertion, no orthopnea Respiratory : No Cough, No Sputum, No Wheezing, No Smoke Exposure, No Dyspnea Gastrointestinal : No Nausea, No Vomiting, No Diarrhea, No Constipation, No abdominal Pain, No Hematochezia, No Melena Genitourinary : no irregular bleeding, No Dysuria, No Urinary Frequency, No Hematuria, No Urinary Incontinence, No Urgency, No Flank Pain, No Urinary Flow Changes, No Hesitancy Musculoskeletal : No joint pain, No Myalgias, No Joint Swelling Skin : No Skin Lesions, No rash Neuro : No Weakness, No Numbness, No Paresthesias, No Loss of Consciousness, No Dizziness, No Headache Psych : No Anxiety/Panic, No Depression, No SI/HI/AH/VH, No Social Issues, Heme/Lymph: No Bruising, No Bleeding,No Lymphadenopathy Endocrine : No Polyuria, No Polydipsia, No Temperature Intolerance [facility] Past Medical History Medical History Mayda tropicalis infection SAM (generalized anxiety disorder) History of subarachnoid hemorrhage (~08/2016) Pneumomediastinum Suppression of immune system subtherapeutic Morbid obesity Acute respiratory distress syndrome (ARDS) CHF (congestive heart failure) Hypoxia Pneumonia due to COVID-19 virus (~06/2021) Anemia IBD (inflammatory bowel disease) Normocytic anemia Diarrhea Chronic idiopathic constipation Acute promyelocytic leukemia (~08/2016) Left sided abdominal pain Crohn disease (~2002) Elevated serum glutamic pyruvic transaminase (SGPT) level Thalamic pain syndrome (hyperesthetic) Renal stones Kidney disease Colitis (~2002) Hypertension Asthma Depression Anxiety Diabetes 1.5, managed as type 1 Surgical History History of bone marrow biopsy (~2016) History of esophagogastroduodenoscopy (EGD) (~2020) History of right knee surgery (~2016) History of surgery on right wrist (~2006) History of lithotripsy (~2017) History of rectal sphincterotomy (~2003) History of colonoscopy (~2020) History of cholecystectomy (~2011) History of hemorrhoidectomy (~2003) Social History Social History Household Members: Family Housing: Apartment Do you presently have visiting nurse or other home services: No Alcohol intake: current Alcohol intake frequency: a few times a month Alcohol type: beer Patient Tobacco Use Status: Never used Tobacco Smoked in Last 30 Days: Yes e-Cigarette/Vaping Use: Never Used Second Hand Smoke Exposure: No Use of substances other than those prescribed or required for medical reasons: No Substance Use Type: Crack/Cocaine Advance Directives: Yes Advance Directives on File: Yes Advance Directives Date on File: 04/04/21 Do you have a plan to hurt others: No Plan service: No Current occupational status: disabled Physical Exam ED Vital Signs: Vital Signs - 24 hr 11/02/24 00:26 11/02/24 00:41 11/02/24 00:58 Temperature 98.5 F Pulse Rate 30 L 37 L 28 L Respiratory Rate 24 H 26 H 21 H Blood Pressure 175/68 H 175/68 H 165/62 H Pulse Oximetry 98 96 96 Oxygen Delivery Method Room Air Room Air Room Air BMI result Body Mass Index 26.2 Const Other: Appearance: Alert. Oriented X3. Looks fatigued Eyes: Pupils equal, round and reactive to light. ENT: Pharynx normal. Moist mucous membranes Neck: Normal inspection. Neck supple. No lymph nodes noted. No crepitus CVS: Bradycardic, S1-S2 Respiratory: No respiratory distress. Breath sounds normal. No Wheezing. No rales speaking in full sentences Abdomen: Soft and nontender. No rigidity. No distention. Skin: Skin warm and dry. Normal skin color. Normal skin turgor. Extremities: No lower extremity edema. No Lacerations. No Rash Neuro: Oriented X 3. No motor deficit. No sensory deficit. Moving all extremities. No slurred speech. CN 2 through 12 grossly intact Psych: calm, cooperative, normal affect Course Course Course Narrative: Patient's heart rate between high 20s and low 40s, blood pressure in the 160s. Patient states that as long as he is in bed, he does not have any shortness of breath. Patient has not experienced any chest pain Patient placed on pacer pads All labs pending Cardiology consult called back pending Medical Decision Making Medical Decision Making MDM Narrative: My interpretation of EKG: Marked sinus bradycardia, heart rate 38, no ST segment depression or elevation, no T-wave inversion, U-waves versus 2:1 block, My interpretation of patient's labs: Hematology at baseline, coagulation within normal limits, chemistry shows a bumped BUN and creatinine I discussed the EKG with Dr. Bowden. Confirmed that this is not a heart block, this is a 2: 1 block. Recommendations: Admit and NPO At this time, despite having significant bradycardia, patient continues being asymptomatic while he is in bed/at rest. I discussed the above-mentioned with Dr. Aponte from the Medicine team, prefers the patient goes to to the ICU Dr. Sandoval from the ICU accepted the patient Differential Diagnosis Differential Diagnoses: The differential diagnosis associated with the presentation includes (Second degree block, complete heart block, 2:1 block) Admission/Observation Consideration of admission/observation: Escalation of care including admission/observation considered Consult Healthcare Provider Management of the patient was discussed with: Hospitalist and Reclamation Engineer Lab Data MDM Lab Attestation statement: I reviewed the patient's lab results. 11/02/24 00:31 11/02/24 00:31 Labs: Lab Results 11/02/24 11/02/24 Range/Units 00:31 00:33 WBC 8.4 (4.8-10.8) X10*3/uL RBC 4.73 (4.60-5.80) X10*6/uL Hgb 14.6 (14.0-18.0) g/dl Hct 44.7 (42.0-52.0) % MCV 94.5 (80.0-98.0) fL MCH 30.9 (27.0-33.0) pg MCHC 32.7 (31.0-36.0) g/dl RDW 13.0 (11.0-16.0) % Plt Count 277 (160-400) X10*3/uL MPV 10.3 (9.4-12.4) fL Immature Gran % (Auto) 0.4 (0.0-0.4) % Neut % (Auto) 59.8 (45-73) % Lymph % (Auto) 29.3 (20-40) % [place] % (Auto) 9.1 (2-11) % Eos % (Auto) 1.0 (0-4) % Baso % (Auto) 0.4 (0-2) % Lymph # (Auto) 2.5 (1.2-4.9) X10*3/uL [place] # (Auto) 0.8 (0.1-1.2) X10*3/uL Eos # (Auto) 0.1 (0.0-0.4) X10*3/uL Baso # (Auto) 0.0 (0.0-0.2) X10*3/uL Abs Immat Gran (auto) 0.03 (0.00-0.03) X10*3/uL Absolute Neuts (auto) 5.0 (2.0-8.3) x10*3/uL Absolute Nucleated RBC 0.000 (0.0-0.012) X10*3/uL Nucleated RBC % (auto) 0.0 (0.0-0.2) /100WBC PT 11.1 (10.9-12.4) SEC INR 1.0 (0.9-1.1) Sodium 141 (135-145) mmol/L Potassium 4.5 D (3.3-5.1) mmol/L Chloride 112 H (96-108) mmol/L Carbon Dioxide 16 L (22-29) mmol/L Anion Gap 18 (12-20) BUN 22 H (9-16) mg/dL Creatinine 1.43 H (0.5-1.4) mg/dL Estim Creat Clear Calc 60.7 Estimated GFR 49 Random Glucose 86 (60-115) mg/dL Calcium 9.1 (8.4-10.2) mg/dL Troponin I High Sens 18.0 D (<3.5-35.0) ng/L B-Natriuretic Peptide 317 H (<100) pg/mL Influenza Type A (PCR) NEGATIVE (Negative) Influenza Type B (PCR) NEGATIVE (Negative) RSV RNA Qual (PCR) NEGATIVE (Negative) SARS-CoV-2 RNA (RT-PCR) NEGATIVE (Negative) Critical Care Time Critical Care Time Critical Care Time: Yes Total Critical Care Time: 75 Attestation: I have personally provided critical care time. Time includes review of lab data, radiology results, discussion with consultants, and monitoring for potential decompensation. Intervention performed as documented. Discharge Plan Discharge Clinical Impression: Heart block, Bradycardia Patient Disposition: Admitted As Inpatient Print Language: Honduran
[2024-11-02 01:11] LABS: B Type Natriuretic Peptide 317 pg/mL (<100)
[2024-11-02 01:21] LABS: Influenza A PCR NEGATIVE (Negative); Influenza B PCR NEGATIVE (Negative); Resp Syncy Virus RNA Qual PCR NEGATIVE (Negative); SARS COV2 PCR INHOUSE NEGATIVE (Negative)
--- NOTE | 2024-11-02 02:41 | P.HPCC_ITS ---
History of Present Illness Date of Service: 11/02/24 Attending physician on admission: Mauro Sandoval Chief Complaint: SOB The patient is a 64-year-old male with a past medical history of Congestive heart failure?reduced ejection fraction due to nonischemic cardiomyopathy, hypertension, diabetes mellitus, acute promyelocytic leukemia s/p chemo in remission since 2016, anemia, anxiety, depression, asthma, Crohn's disease, IBS, chronic constipation, and past history of cocaine use who presented to the emergency department with complaints of shortness of breaths. Patient reported3- 4 days of shortness of breath, much worse with exertion or going up the stairs. Patient reports 1 episode of diarrhea couple of days ago. Overall, patient states that he feels very fatigued. ? In the emergency department, patient's heart rate 28-30, EKG sinus bradycardia, heart rate 38, no ST segment depression or elevation, no T-wave inversion, U- waves versus 2:1 block, ED physician consulted Cardiology, Dr. Bowden. Who confirmed this is a second degree AV 2: 1 block and admission and NPO for possible pacemaker Patient is symptomatic with exertion, we will admit to ICU for hemodynamic monitoring Review of Systems 2 Review of Systems: Yes all other systems are reviewed and are negative PMFSH Past Medical History Medical History (Updated 11/02/24 @ 02:58 by Jose Sharma NP) Nonischemic cardiomyopathy Mayda tropicalis infection SAM (generalized anxiety disorder) History of subarachnoid hemorrhage (~08/2016) Pneumomediastinum Suppression of immune system subtherapeutic Morbid obesity Acute respiratory distress syndrome (ARDS) CHF (congestive heart failure) Hypoxia Pneumonia due to COVID-19 virus (~06/2021) Anemia IBD (inflammatory bowel disease) Normocytic anemia Diarrhea Chronic idiopathic constipation Acute promyelocytic leukemia (~08/2016) Left sided abdominal pain Crohn disease (~2002) Elevated serum glutamic pyruvic transaminase (SGPT) level Thalamic pain syndrome (hyperesthetic) Renal stones Kidney disease Colitis (~2002) Hypertension Asthma Depression Anxiety Diabetes 1.5, managed as type 1 Surgical History Surgical History History of bone marrow biopsy (~2016) History of esophagogastroduodenoscopy (EGD) (~2020) History of right knee surgery (~2016) History of surgery on right wrist (~2006) History of lithotripsy (~2017) History of rectal sphincterotomy (~2003) History of colonoscopy (~2020) History of cholecystectomy (~2011) History of hemorrhoidectomy (~2003) Social History Social History Household Members: None Housing: Apartment Do you presently have visiting nurse or other home services: No Alcohol intake: current Alcohol intake frequency: a few times a month Alcohol type: beer Patient Tobacco Use Status: Never used Tobacco Smoked in Last 30 Days: Yes e-Cigarette/Vaping Use: Never Used Second Hand Smoke Exposure: No Use of substances other than those prescribed or required for medical reasons: No Substance Use Type: Crack/Cocaine Currently Displaying Signs/Symptoms of Drug Intoxication Withdrawal: No Have you been hit, kicked, punched, or otherwise hurt by someone within the past year? If so, by whom?: No Do you feel safe in your current relationship?: No Current Relationship Is there a partner from a previous relationship who is making you feel unsafe now?: No Are you made to feel afraid or neglected: No Advance Directives: Yes Advance Directives on File: Yes Advance Directives Date on File: 04/04/21 Do you have a plan to hurt others: No Plan Recently lost weight without trying: No Nutrition Risks: No Nutritional Risk Poor oral hygiene: No service: No Current occupational status: disabled Meds Allergies Allergy/AdvReac Type Severity Reaction Status Date / Time No Known Allergies Allergy Verified 11/02/24 00:29 Active Medications: Current Medications Heparin Sodium (Porcine) (Heparin Sodium,Porcine 5,000 Unit/Ml Vial) 5,000 unit SUBCUT TID LADONNA Home Medications ?Medication ?Instructions ?Recorded ?Confirmed ?Last Taken ?Type hydroxyzine pamoate 50 mg capsule 100 mg PO BEDTIME PRN Anxiety 04/02/21 10/13/23 05/14/21 History ustekinumab 90 mg/mL subcutaneous 90 mg subcut Q4W 04/02/21 10/13/23 08/13/21 History syringe (Stelara) albuterol sulfate 90 mcg/actuation 2 puff inhalation Q4H PRN wheezing 10/13/23 10/13/23 Unknown History aerosol inhaler (Ventolin HFA) budesonide 9 mg tablet,delayed and 9 mg PO QAM 10/13/23 10/13/23 Unknown History extended release dapagliflozin propanediol 10 mg 10 mg DAILY 10/13/23 10/13/23 10/12/23 History tablet (Farxiga) doxycycline monohydrate 100 mg 100 mg PO BID 10/13/23 10/13/23 10/12/23 History capsule melatonin 5 mg capsule 5 mg PO BEDTIME PRN Sleep 10/13/23 10/13/23 Unknown History metoprolol succinate 100 mg 100 mg PO DAILY 10/13/23 10/13/23 Unknown History tablet,extended release 24 hr mirtazapine 30 mg tablet 30 mg BEDTIME 10/13/23 10/13/23 Unknown History paroxetine HCl 40 mg tablet 40 mg PO DAILY 10/13/23 10/13/23 Unknown History spironolactone 25 mg tablet 25 mg DAILY 10/13/23 10/13/23 Unknown History upadacitinib 45 mg tablet,extended 45 mg PO DAILY 10/13/23 10/13/23 Unknown History release 24 hr (Rinvoq) budesonide-formoterol HFA 160 inhalation 11/02/24 Unknown History mcg-4.5 mcg/actuation aerosol inhaler fluticasone propionate 50 1 spray intranasal DAILY 11/02/24 Unknown History mcg/actuation nasal spray,suspension sacubitril 49 mg-valsartan 51 mg 1 tab PO BID 11/02/24 Unknown History tablet (Entresto) Physical Exam 2 Vital Signs: Vital Signs: Last Vital Signs Temp 98.5 F 11/02/24 00:58 Pulse 29 L 11/02/24 01:54 Resp 22 H 11/02/24 01:54 BP 158/53 H 11/02/24 01:54 Pulse Ox 97 11/02/24 01:54 O2 Del Method Room Air 11/02/24 01:54 BMI result Body Mass Index 26.2 ?General:? Alert oriented x3 no acute distress.? Speaking full sentences.? Speech is well articulated, thought process is coherent.? Following all commands. ?HEENT:? Head is normocephalic, atraumatic, pupils equal round reactive to light accommodation bilaterally.? Extraocular movements appear intact.? Buccal mucosa is dry, Neck is supple ?Cardiac:? Yfn 28-35s, Clear S1-S2, no murmurs rubs or gallops. BLE trace edema ?Pulmonary:? Clear to auscultation, no wheezes, rales or rhonchi. ?Abdomen:? ?Abdomen soft, non-tender, non-distended. Normal bowel sounds. No pulsatile mass. No hepatosplenomegaly. ?Musculoskeletal:? Moving all 4 extremities upon request a major joints, there is no crepitus or tenderness.? The strength is 5/5 bilaterally and throughout all 4 extremities.? Gait not assessed at this point. ?Neurologic:? cranial nerves 2-12 are grossly intact.? No focal deficits noted.Motor strength as above.?? ?Skin:? Intact, no lesions, erythema, clubbing or cyanosis.? No ulcers. Vascular:? 2+ pulses upper and lower extremities distally.? Results Labs 11/02/24 05:51 11/02/24 05:51 Labs: Laboratory Results - last 24 hr 11/02/24 11/02/24 00:31 00:33 MCV 94.5 MCH 30.9 MCHC 32.7 RDW 13.0 Plt Count 277 MPV 10.3 Immature Gran % (Auto) 0.4 Neut % (Auto) 59.8 Lymph % (Auto) 29.3 [place] % (Auto) 9.1 Eos % (Auto) 1.0 Baso % (Auto) 0.4 Lymph # (Auto) 2.5 [place] # (Auto) 0.8 Eos # (Auto) 0.1 Baso # (Auto) 0.0 Abs Immat Gran (auto) 0.03 Absolute Neuts (auto) 5.0 Absolute Nucleated RBC 0.000 Nucleated RBC % (auto) 0.0 PT 11.1 INR 1.0 Anion Gap 18 Estim Creat Clear Calc 60.7 Estimated GFR 49 Random Glucose 86 Calcium 9.1 B-Natriuretic Peptide 317 H Influenza Type A (PCR) NEGATIVE Influenza Type B (PCR) NEGATIVE RSV RNA Qual (PCR) NEGATIVE SARS-CoV-2 RNA (RT-PCR) NEGATIVE Assessment and Plan (1) Symptomatic bradycardia: Status: Acute (2) Second degree AV block: Status: Acute (3) Nonischemic cardiomyopathy: Status: Acute (4) GOLDEN (acute kidney injury): Status: Acute (5) CHF (congestive heart failure): Status: Acute Plan Neuro:? no acute issues Cardiac:? Symptomatic bradycardia- patient has second-degree AV block 2:1, symptomatic only with exertion. Patient has underlying history of congestive heart failure with reduced EF, ?he was supposed to be taking metoprolol 100mg, Entresto 49/51 mg, and spironolactone 25 mg, but patient reports not taking metoprolol for a couple of months due to ?having too many meds?. ?He does have a prior history of cocaine abuse, but reports no substance abuse in the last 3 years. ?Cardiology consulted by ED physician, who recommends NPO status and possible pacemaker. ?Continue with the pacer pads. ? Underlying history of hypertension: ?Hold Entresto, spironolactone, and metoprolol Pulmonary:??? no acute issues Renal:?? ?GOLDEN- non? oliguric.?reported diarrhea x1, does have history of Crohn colitis, no symptoms of active Crohn's flare at this time. The patient is on Farxiga, due to underlying history of congestive heart failure we will avoid fluid bolus. ?Continue to monitor renal indices Endo: ? Underlying history of diabetes mellitus: ?Due to NPO status will check q.6 POCs GI:? No acute issues. ID:? ? no acute issues Heme/Onc:? ?No acute issues Psych:? No acute issues. Miscellaneous:?? Prophylaxis:? Heparin sub cut Diet:? NPO for possible procedure?? Code status:? full code Critical care time x 30 minutes of critical care time
[2024-11-02 03:33] LABS: Glucose, Whole Blood 79 mg/dL (60-115)
--- NOTE | 2024-11-02 04:41 | PC.ADMIT ---
Patient transferred to ICU from ED on 11/02/24 at 0315 via stretcher for bradycardia. He is 64 year old male, full code, complaining of shortness of breath with exertion and increased fatigue for 3-4 days. translator/interpreter utilized during admission process. He is alert and oriented x 4. Heart rate 27-30's on monitor, with 2:1 heart block. EKG obtained per order, and provider aware. No edema. He remains asymptomatic, pacer pads on. Patient is currently on room air, clear lungs, no shortness of breath while in bed. Patient reports that diarrhea from earlier has resolved. Patient provided urinal at bedside. Skin is warm, dry and intact. He is able to reposition self in bed. Patient/family educated on plan to remain NPO throughout the night, cardiology consult placed, with possible plan for pacemaker during the day. Patient accepted education and notified to alert staff if he experiences new symptoms. Bed locked in lowest position, alarm on, call [place]ton in reach.
[2024-11-02 05:46] LABS: Glucose, Whole Blood 76 mg/dL (60-115)
[2024-11-02] MEDS: Dextrose 50 % 25 GM/50 ML SYRINGE IVPUSH (05:59)
[2024-11-02 06:01] LABS: MANUAL DIFF FLAG NO
[2024-11-02 06:20] LABS: Phosphorus 3.2 mg/dL (2.7-4.5)
[2024-11-02 06:21] LABS: Glucose, Whole Blood 149 mg/dL (60-115)
[2024-11-02 06:25] LABS: Basophils Percent Auto 0.4 % (0-2); Eosinophils Absolute Auto 0.1 X10*3/uL (0.0-0.4); Eosinophils Percent Auto 1.1 % (0-4); Hematocrit 37.4 % (42.0-52.0); Hemoglobin 12.4 g/dl (14.0-18.0); Imm Gran Abs Auto 0.01 X10*3/uL (0.00-0.03); Imm Gran Pct Auto 0.2 % (0.0-0.4); Lymphocytes Absolute Auto 1.3 X10*3/uL (1.2-4.9); Lymphocytes Percent Auto 23.6 % (20-40); Mean Corpuscular HGB Conc 33.2 g/dl (31.0-36.0); Mean Corpuscular Hemoglobin 31.3 pg (27.0-33.0); Mean Corpuscular Volume 94.4 fL (80.0-98.0); Mean Platelet Volume 10.9 fL (9.4-12.4); Monocytes Absolute Auto 0.4 X10*3/uL (0.1-1.2); Neutrophils Absolute Auto 3.6 x10*3/uL (2.0-8.3); Neutrophils Percent Auto 66.7 % (45-73); Platelet Count 218 X10*3/uL (160-400); Red Blood Count 3.96 X10*6/uL (4.60-5.80); White Blood Count 5.4 X10*3/uL (4.8-10.8)
[2024-11-02 06:29] LABS: Alanine Aminotransferase 38 U/L (0-40); Albumin Level 3.7 g/dL (3.5-5.0); Alkaline Phosphatase 62 U/L (39-117); Anion Gap 12 (12-20); Aspartate Amino Transferase 29 U/L (5-37); Bilirubin Total 0.6 mg/dL (0.0-1.0); Blood Urea Nitrogen 23 mg/dL (9-16); Calcium 8.7 mg/dL (8.4-10.2); Carbon Dioxide 24 mmol/L (22-29); Chloride 112 mmol/L (96-108); Creatinine Clr Calc Pharmacy 68.3; Estimated Glomerular Filt Rate 57; Glucose Random 81 mg/dL (60-115); Potassium 4.2 mmol/L (3.3-5.1); Sodium 144 mmol/L (135-145); Total Protein 6.3 g/dL (6.5-8.0)
[2024-11-02 06:33] LABS: Appearance Urine Clear; Color Urine Yellow; Glucose Urine UA 250 mg/dL (Negative); Leukocyte Esterase Urine Negative (Negative); Nitrite Urine Negative (Negative); PH 5.5 (5.0-9.0); Specific Gravity - Urine >= 1.030 (1.005-1.025); UMIC TRIGGER UACC YES; Urine Blood Negative (Negative); Urine Ketones 15 mg/dL (Negative); Urine Protein 30 (1+) mg/dL (Neg-Trace)
[2024-11-02 06:39] LABS: Bacteria Urine None Seen (None Seen); Hyaline Casts Urine 0-2 /LPF (0-2); RBC Urine 0-2 /HPF (0-2); Squamous Epithelial Cell Urine 0-2 /HPF (0-2); WBC Urine 0-5 /HPF (0-5)
[2024-11-02 06:47] LABS: Amphetamine Screen Urine Not Detected (Not Detect); Barbiturates, Urine Not Detected (Not Detect); Benzodiazepines Screen Urine Not Detected (Not Detect); Buprenorphine Scr Not Detected (Not Detect); Cannabinoid Screen Urine Not Detected (Not Detect); Cocaine Screen Urine POSITIVE (Not Detect); Fentanyl, urine Not Detected (Not Detect); Methadone Screen, Urine Not Detected (Not Detect); Opiate Screen Urine Not Detected (Not Detect); Oxycodone Screen Urine Not Detected (Not Detect); Phencyclidine Screen Urine Not Detected (Not Detect)
--- NOTE | 2024-11-02 07:00 | CA_ITS ---
Transthoracic Echocardiogram Patient (Last, First, Middle): Bhavik Jean-Baptiste, Gender: Male Date of : 1960 Age: 64 Procedure Date: 11/02/2024 Procedure Type: Transthoracic Echocardiogram Location: ICU Height: 190.5 cm Weight: 94.8 kg BSA: 2.24 m2 Heart Rate: 31 bpm BP: 147 / 44 mmHg Refrigeration Repair Supervisor: SOURAV Rausch MD: Mauro Sandoval MD Java Swing Developer: Hai More MD Symptoms: heart block Study Quality: Fair ECG Rhythm: Bradycardia Conclusions: - 1. Mildly dilated left ventricle with normal LV ejection fraction of 65-70% with impaired relaxation filling pattern 2. Mildly dilated left atrium 3. Mild aortic and mitral regurgitation 4. Mildly dilated ascending aorta at 3.8 cm 5. Normal measured RV systolic pressure with mildly elevated right atrial pressures 6. No gross pericardial effusion Findings Left Ventricle Mildly increased left ventricular cavity size. There is normal left ventricular wall thickness. The left ventricular systolic function is normal. The visually estimated ejection fraction is between 65-70%. Spectral Doppler is indicative of an impaired relaxation filling pattern. E/E prime ratio is between 8 and 15 consistent with indeterminate filling pressures. Right Ventricle Normal right ventricular cavity size and systolic function. Atria The left atrium is mildly dilated. Interatrial shunt cannot be excluded. The right atrium is likely dilated. Aortic Valve Normal aortic valve structure and function. There is no aortic valve stenosis. There is mild aortic valve regurgitation. Mitral Valve There is mild anterior and posterior mitral leaflet thickening. There is mild mitral valve regurgitation. There is no mitral valve stenosis. Pulmonic Valve The pulmonic valve is likely normal. Tricuspid Valve Normal tricuspid valve structure. There is trace tricuspid valve regurgitation. The right ventricular systolic pressure is normal. The right ventricular systolic pressure is 16 mmHg. Mildly elevated right atrial pressure. There is no evidence of pulmonary hypertension. Great Vessels The pulmonary artery was not well visualized. There is mild dilatation of the ascending aorta measuring 3.80 cm. Venous The inferior vena cava is mildly dilated and collapses less than 50% with inspiration. Pericardium/Pleural There is no evidence of pericardial effusion. Measurements 2D Linear Measurements IVSd: 1.00 0.6-0.9/0.6-1.0 cm LVIDd: 5.63 3.9-5.3/4.2-5.9 cm LVIDd Index: 2.51 2.4-3.2/2.2-3.1 cm/m2 LVIDs: 3.66 2.0-3.6 cm LVPWd: 1.03 0.7-1.1 cm LA Diam: 3.30 2.7-3.8/3.0-4.0 cm LAIDs Index: 1.47 1.5-2.3 cm/m2 LV Mass: 281.84 67-162/88-224 g LV Mass Index: 125.82 43-95/49-115 g/m2 LVOT Diam: 2.30 3.0+(-)1.3 cm 2D Systolic Function EF 4C: 70.50 >55% EF 2C: 73.10 >55% EF BiP: 71.70 >55% Mitral Valve MV Pk E: 1.10 MV PK A: 1.38 MV Decel Time: 286.00 E/A: 0.80 E'Lateral: 8.70 E'Medial: 6.64 E/E' Med: 16.60 E/E' Lat: 12.60 PHT: 84.00 MVA PHT: 2.62 Decel [place]: 3.85 Aortic Valve AoV Pk Adelfo: 2.10 AoV Mn Adelfo: 1.36 AoV VTI: 0.55 AoV Pk Grad: 18.00 Aov Mn Grad: 9.00 TEENA Cont.VTI: 2.75 AI Pk Adelfo: 4.08 AI [place]: 1.02 LVOT LVOT Pk Adelfo: 1.37 LVOT Mn Adelfo: 0.90 LVOT VTI: 0.36 LVOT Pk Grad: 8.00 LVOT Mn Grad: 4.00 LVOT Diam: 2.30 LVOT Area: 4.15 Diastolic Function MV Pk E: 1.10 MV Pk A: 1.38 E/A: 0.80 E'Medial: 6.64 E/E' Med: 16.60 E' Laterial: 8.70 E/E' Lat: 12.60 Right Ventricle TAPSE (mm): 27.20 TVS' Adelfo: 15.00 Tricuspid Valve TR Pk Adelfo: 1.41 TR Pk Grad: 8.00 RA Press: 8.00 RVSP: 16.00 Great Vessels Aorta Sinus of Valsalva: 3.40 2.0-3.5 cm Ao Asc: 3.80 2.1-3.4 cm Ao Arch: 3.20 Pulmonary Valve PV Pk Adelfo: 1.34 Peak PV Grad: 7.00 Updated in Other Vendor System with Status of Final Hai More MD electronically signed on 11/02/2024 2:51:14 PM with status of Final
[2024-11-02] MEDS: Heparin Sodium,Porcine 5,000 UNIT/ML VIAL 5000 UNIT SUBCUT ×2 (08:50→15:16)
[2024-11-02] MEDS: 0.9 % Sodium Chloride Flush 3 ML SYRINGE IVFLUSH ×2 (08:52→15:16)
--- NOTE | 2024-11-02 09:17 | PM.CCN ---
Critical Care Event Note Summary Date of Service: 11/02/24 Code activated: No Narrative: This case had a high probability of a clinically significant, sudden, or life threatening deterioration of this patient's condition which required my full and direct attention, intervention and personal management. Critical Care Time (minutes): 5 Comment: hypotension due to false reading, no evidence of sepsis; has CHF cant give fluids.
[2024-11-02 12:01] LABS: Glucose, Whole Blood 89 mg/dL (60-115)
--- NOTE | 2024-11-02 12:21 | P.CONCA_ITS ---
History of Present Illness History of Present Illness Date of Service: 11/02/24 Requesting physician: Mauro Sandoval Consult reason: other (Second-degree AV block) Chief complaint: Bradycardia Narrative: I was consulted to see Aldo in cardiology consultation today for second- degree AV block noted on EKG. Patient with prior history of nonischemic cardiomyopathy with last echocardiogram showed moderate LV systolic dysfunction with prior history of acute promyelocytic leukemia, Crohn's disease prior cocaine use. Currently follows with Cardiology at [facility] Dr. Tenorio, who is office follow-up has been about 2 months ago. He is currently on neurohormonal modulation with Farxiga, Entresto, metoprolol and spironolactone. He is currently not on any loop diuretic regimen. He said over the last few weeks he has been getting progressively increasing shortness of breath and not able to exercise. Eventually came to the hospital yesterday. Noted to be bradycardic initially thought to be sinus bradycardia. However on closer review and consulting with it was clarified that patient has sinus rhythm with 2 is to 1 av block with incomplete right bundle-branch block. He has prior sinus rhythm with right bundle-branch block and leftward axis. This is suggestive of progressive conduction system disease. Patient has remained in 2 is to 1 av block since admission. Patient has no overt signs of congestive heart failure although noted to have mild GOLDEN which has improved overnight. Blood pressure on admission was elevated. He has not had any syncopal episodes. He denies any lightheadedness. No recent orthopnea, PND, leg edema. No exertional chest pain. Review of Systems 2 Constitutional: Constitutional: Denies body ache(s), Denies chills, Reports fatigue, Denies fever(s) and Reports lethargy Eyes: Eyes: Reports no additional eye complaints ENT: Reports system reviewed and no additional complaints, except as documented Cardiovascular: Cardiovascular: Denies chest pain, Denies leg edema, Denies lightheadedness, Denies Loss of Consciousness, Reports dyspnea on exertion and Denies orthopnea Respiratory: Respiratory: Reports dyspnea on exertion Gastrointestinal: Gastrointestinal: Denies abdominal pain and Reports diarrhea (One episode) Genitourinary: Genitourinary: Reports no additional male genitourinary complaints Musculoskeletal: Musculoskeletal: Reports no additional musculoskeletal complaints Integumentary/Breasts: Skin/Breast: Reports system reviewed and no additional complaints, except as docu Psychiatric: Psychiatric: Reports no additional psychiatric complaints Endocrine: Endocrine: Reports no additional endocrine complaints and Reports fatigue PMFSH Past Medical History Medical History Nonischemic cardiomyopathy Mayda tropicalis infection SAM (generalized anxiety disorder) History of subarachnoid hemorrhage (~08/2016) Pneumomediastinum Suppression of immune system subtherapeutic Morbid obesity Acute respiratory distress syndrome (ARDS) CHF (congestive heart failure) Hypoxia Pneumonia due to COVID-19 virus (~06/2021) Anemia IBD (inflammatory bowel disease) Normocytic anemia Diarrhea Chronic idiopathic constipation Acute promyelocytic leukemia (~08/2016) Left sided abdominal pain Crohn disease (~2002) Elevated serum glutamic pyruvic transaminase (SGPT) level Thalamic pain syndrome (hyperesthetic) Renal stones Kidney disease Colitis (~2002) Hypertension Asthma Depression Anxiety Diabetes 1.5, managed as type 1 Surgical History Surgical History History of bone marrow biopsy (~2016) History of esophagogastroduodenoscopy (EGD) (~2020) History of right knee surgery (~2016) History of surgery on right wrist (~2006) History of lithotripsy (~2017) History of rectal sphincterotomy (~2003) History of colonoscopy (~2020) History of cholecystectomy (~2011) History of hemorrhoidectomy (~2003) Social History Social History Household Members: None Housing: Apartment Do you presently have visiting nurse or other home services: No Alcohol intake: current Alcohol intake frequency: a few times a month Alcohol type: beer Patient Tobacco Use Status: Never used Tobacco Smoked in Last 30 Days: Yes e-Cigarette/Vaping Use: Never Used Second Hand Smoke Exposure: No Use of substances other than those prescribed or required for medical reasons: No Substance Use Type: Crack/Cocaine Currently Displaying Signs/Symptoms of Drug Intoxication Withdrawal: No Have you been hit, kicked, punched, or otherwise hurt by someone within the past year? If so, by whom?: No Do you feel safe in your current relationship?: No Current Relationship Is there a partner from a previous relationship who is making you feel unsafe now?: No Are you made to feel afraid or neglected: No Advance Directives: Yes Advance Directives on File: Yes Advance Directives Date on File: 04/04/21 Do you have a plan to hurt others: No Plan Recently lost weight without trying: No Nutrition Risks: No Nutritional Risk Poor oral hygiene: No service: No Current occupational status: disabled Meds Allergies Allergy/AdvReac Type Severity Reaction Status Date / Time No Known Allergies Allergy Verified 11/02/24 00:29 Active Medications: Current Medications Heparin Sodium (Porcine) (Heparin Sodium,Porcine 5,000 Unit/Ml Vial) 5,000 unit SUBCUT TID [facility] Last Admin: 11/02/24 08:50 Dose: 5,000 unit Insulin Human Lispro (Insulin Lispro 100 Unit/Ml 3 Ml Vial) 0 unit SUBCUT Q6H [facility]; Protocol Last Admin: 11/02/24 12:12 Dose: Not Given Sodium Chloride (0.9 % Sodium Chloride Flush 3 Ml Syringe) 3 ml IVFLUSH QSHIFT [facility] Last Admin: 11/02/24 08:52 Dose: 3 ml Home Medications ?Medication ?Instructions ?Recorded ?Confirmed ?Last Taken ?Type hydroxyzine pamoate 50 mg capsule 100 mg PO BEDTIME PRN Anxiety 04/02/21 10/13/23 05/14/21 History ustekinumab 90 mg/mL subcutaneous 90 mg subcut Q4W 04/02/21 10/13/23 08/13/21 History syringe (Stelara) albuterol sulfate 90 mcg/actuation 2 puff inhalation Q4H PRN wheezing 10/13/23 10/13/23 Unknown History aerosol inhaler (Ventolin HFA) budesonide 9 mg tablet,delayed and 9 mg PO QAM 10/13/23 10/13/23 Unknown History extended release dapagliflozin propanediol 10 mg 10 mg DAILY 10/13/23 10/13/23 10/12/23 History tablet (Farxiga) doxycycline monohydrate 100 mg 100 mg PO BID 10/13/23 10/13/23 10/12/23 History capsule melatonin 5 mg capsule 5 mg PO BEDTIME PRN Sleep 10/13/23 10/13/23 Unknown History metoprolol succinate 100 mg 100 mg PO DAILY 10/13/23 10/13/23 Unknown History tablet,extended release 24 hr mirtazapine 30 mg tablet 30 mg BEDTIME 10/13/23 10/13/23 Unknown History paroxetine HCl 40 mg tablet 40 mg PO DAILY 10/13/23 10/13/23 Unknown History spironolactone 25 mg tablet 25 mg DAILY 10/13/23 10/13/23 Unknown History upadacitinib 45 mg tablet,extended 45 mg PO DAILY 10/13/23 10/13/23 Unknown History release 24 hr (Rinvoq) budesonide-formoterol HFA 160 inhalation 11/02/24 Unknown History mcg-4.5 mcg/actuation aerosol inhaler fluticasone propionate 50 1 spray intranasal DAILY 11/02/24 Unknown History mcg/actuation nasal spray,suspension sacubitril 49 mg-valsartan 51 mg 1 tab PO BID 11/02/24 Unknown History tablet (Entresto) Physical Exam 2 Vital Signs: Vital Signs: Last Vital Signs Temp 97.7 F 11/02/24 08:00 Pulse 30 L 11/02/24 11:00 Resp 13 11/02/24 11:00 BP 147/44 H 11/02/24 11:00 Pulse Ox 92 11/02/24 11:00 O2 Del Method Room Air 11/02/24 11:00 BMI result Body Mass Index 26.2 Const: General: cooperative, comfortable, no acute distress, alert and awake Nutritional Appearance: well nourished Orientation/consciousness: patient oriented x3 Limitations: no limitations HEENT: Head: Yes normocephalic and Yes atraumatic Neck: Neck: Yes trachea midline, Yes supple and Yes no JVD Resp: Effort & Inspection: normal respiratory effort Auscultation: clear to auscultation bilaterally Cardio: Jugular venous distension: no JVD and other (Intermittent hernandez waves) Rate: bradycardic Rhythm: regular rhythm Heart sounds: S1 normal heart sound present, S2 normal heart sound present, no click, no gallops, no murmurs and no rubs GI: Auscultation: normal bowel sounds Skin: General skin exam: no rashes or lesions noted Neuro: General: patient oriented x3 and no focal motor deficits Extrem: General: Yes no clubbing, cyanosis or edema Objective Labs and Meds 11/02/24 05:51 11/02/24 05:51 Lab results: Laboratory Results - last 24 hr 11/02/24 11/02/24 11/02/24 00:31 00:33 03:16 WBC 8.4 RBC 4.73 Hgb 14.6 Hct 44.7 MCV 94.5 MCH 30.9 MCHC 32.7 RDW 13.0 Plt Count 277 MPV 10.3 Immature Gran % (Auto) 0.4 Neut % (Auto) 59.8 Lymph % (Auto) 29.3 [place] % (Auto) 9.1 Eos % (Auto) 1.0 Baso % (Auto) 0.4 Lymph # (Auto) 2.5 [place] # (Auto) 0.8 Eos # (Auto) 0.1 Baso # (Auto) 0.0 Abs Immat Gran (auto) 0.03 Absolute Neuts (auto) 5.0 Absolute Nucleated RBC 0.000 Nucleated RBC % (auto) 0.0 PT 11.1 INR 1.0 Sodium 141 Potassium 4.5 D Chloride 112 H Carbon Dioxide 16 L Anion Gap 18 BUN 22 H Creatinine 1.43 H Estim Creat Clear Calc 60.7 Estimated GFR 49 POC Glucose 79 Random Glucose 86 Calcium 9.1 Phosphorus Magnesium Total Bilirubin AST ALT Alkaline Phosphatase Troponin I High Sens 18.0 D B-Natriuretic Peptide 317 H Total Protein Albumin Urine Color Urine Appearance Urine pH Ur Specific [place] Urine Protein Urine Glucose (UA) Urine Ketones Urine Blood Urine Nitrite Ur Leukocyte Esterase Urine RBC Urine WBC Ur Squamous Epith Cells Urine Bacteria Hyaline Casts Urine Opiates Screen Ur Buprenorphine Scrn Ur Oxycodone Screen Urine Methadone Screen Urine Fentanyl Screen Ur Barbiturates Screen Ur Phencyclidine Scrn Ur Amphetamines Screen U Benzodiazepines Scrn Urine Cocaine Screen U Marijuana (THC) Screen Influenza Type A (PCR) NEGATIVE Influenza Type B (PCR) NEGATIVE RSV RNA Qual (PCR) NEGATIVE SARS-CoV-2 RNA (RT-PCR) NEGATIVE 11/02/24 11/02/24 11/02/24 05:42 05:51 06:17 WBC 5.4 RBC 3.96 L Hgb 12.4 L Hct 37.4 L MCV 94.4 MCH 31.3 MCHC 33.2 RDW 13.0 Plt Count 218 MPV 10.9 Immature Gran % (Auto) 0.2 Neut % (Auto) 66.7 Lymph % (Auto) 23.6 [place] % (Auto) 8.0 Eos % (Auto) 1.1 Baso % (Auto) 0.4 Lymph # (Auto) 1.3 [place] # (Auto) 0.4 Eos # (Auto) 0.1 Baso # (Auto) 0.0 Abs Immat Gran (auto) 0.01 Absolute Neuts (auto) 3.6 Absolute Nucleated RBC 0.000 Nucleated RBC % (auto) 0.0 PT INR Sodium 144 Potassium 4.2 Chloride 112 H Carbon Dioxide 24 Anion Gap 12 BUN 23 H Creatinine 1.27 Estim Creat Clear Calc 68.3 Estimated GFR 57 POC Glucose 76 Random Glucose 81 Calcium 8.7 Phosphorus 3.2 Magnesium 2.0 Total Bilirubin 0.6 AST 29 ALT 38 Alkaline Phosphatase 62 Troponin I High Sens B-Natriuretic Peptide Total Protein 6.3 L Albumin 3.7 Urine Color Yellow Urine Appearance Clear Urine pH 5.5 Ur Specific [place] >= 1.030 H Urine Protein 30 (1+) H Urine Glucose (UA) 250 H Urine Ketones 15 Urine Blood Negative Urine Nitrite Negative Ur Leukocyte Esterase Negative Urine RBC 0-2 Urine WBC 0-5 Ur Squamous Epith Cells 0-2 Urine Bacteria None Seen Hyaline Casts 0-2 Urine Opiates Screen Not Detected Ur Buprenorphine Scrn Not Detected Ur Oxycodone Screen Not Detected Urine Methadone Screen Not Detected Urine Fentanyl Screen Not Detected Ur Barbiturates Screen Not Detected Ur Phencyclidine Scrn Not Detected Ur Amphetamines Screen Not Detected U Benzodiazepines Scrn Not Detected Urine Cocaine Screen POSITIVE H U Marijuana (THC) Screen Not Detected Influenza Type A (PCR) Influenza Type B (PCR) RSV RNA Qual (PCR) SARS-CoV-2 RNA (RT-PCR) 11/02/24 11/02/24 06:18 11:55 WBC RBC Hgb Hct MCV MCH MCHC RDW Plt Count MPV Immature Gran % (Auto) Neut % (Auto) Lymph % (Auto) [place] % (Auto) Eos % (Auto) Baso % (Auto) Lymph # (Auto) [place] # (Auto) Eos # (Auto) Baso # (Auto) Abs Immat Gran (auto) Absolute Neuts (auto) Absolute Nucleated RBC Nucleated RBC % (auto) PT INR Sodium Potassium Chloride Carbon Dioxide Anion Gap BUN Creatinine Estim Creat Clear Calc Estimated GFR POC Glucose 149 H 89 Random Glucose Calcium Phosphorus Magnesium Total Bilirubin AST ALT Alkaline Phosphatase Troponin I High Sens B-Natriuretic Peptide Total Protein Albumin Urine Color Urine Appearance Urine pH Ur Specific [place] Urine Protein Urine Glucose (UA) Urine Ketones Urine Blood Urine Nitrite Ur Leukocyte Esterase Urine RBC Urine WBC Ur Squamous Epith Cells Urine Bacteria Hyaline Casts Urine Opiates Screen Ur Buprenorphine Scrn Ur Oxycodone Screen Urine Methadone Screen Urine Fentanyl Screen Ur Barbiturates Screen Ur Phencyclidine Scrn Ur Amphetamines Screen U Benzodiazepines Scrn Urine Cocaine Screen U Marijuana (THC) Screen Influenza Type A (PCR) Influenza Type B (PCR) RSV RNA Qual (PCR) SARS-CoV-2 RNA (RT-PCR) EKG shows normal sinus rhythm with 2 is to 1 av block with incomplete right bundle-branch block Assessment and Plan (1) Second degree AV block: Status: Acute Second-degree AV block, persistent with symptoms of reduce stroke volume and cardiac output with presenting acute kidney injury which has improved with hydration. Overall findings suggestive of progressive conduction system disease in the patient with prior history of cardiomyopathy. LV ejection fraction bedside echo has improved. Patient requires dual-chamber pacemaker although presence LV block he will require left bundle-branch pacing. This is not available at this hospital and will need transfer to [facility] to his mortician helper care. Meanwhile will hold off on metoprolol therapy. Continue Entresto as well as spironolactone as well as Farxiga. He has no overt signs of heart failure. Hold off on any aggressive blood pressure lowering at this point in time. Once pacemaker is implanted in his beta-son therapy can be re- initiated. Will discuss with [facility] about transfer. Discussed with patient about the need for pacemaker with help of hand painter at bedside. He understands and agrees in his agreeable for transfer. Management was discussed with the ICU team. Greater than 40 minutes was spent in managing his care. Procedures Date of Service Date of Service: 11/02/24
--- NOTE | 2024-11-02 12:55 | PHA.MEDREC ---
Addendum entered by Rhys Ugarte [facility] 11/02/24 13:20: Removed meds from the list that we could not confirm: - budesonide 9mg QAM - dapagliflozin 10mg daily - ibuprofen 600mg q8h prn fever/pain - metoprolol succinate 100mg daily - omeprazole 20mg daily Addendum entered by Rhys Ugarte [facility] 11/02/24 13:12: Reviewed by [facility] Original Note: Pharmacy Consult ? Medication Reconciliation Pharmacy has completed the medication reconciliation. Called patients brother Deng over the phone the phone to confirm med list, however he didn't know anything about patient medications. Brother instructed me to call patients son Bhavik. Patient son states he moved out of his dads house a few moths ago and he hasn't seen his dad since. He no longer knows what medications patient is on. Spoke to patient through tableau architect service to confirm his meds, however patient is a poor historian. He states there are to many to remember . Patient states she fills all of his medications through [facility] and he fills Stelara 90 mg and Rinvoq 45 mg at [facility]. Utilized claims to confirm med list.
--- NOTE | 2024-11-02 14:50 | MHC.CM.PN ---
Pt will be transferring to [facility] for a dual chamber pacemaker. [facility] to arrange for any discharge needs pt has. HCP on file and verified w/pt.
[2024-11-02 15:33] LABS: Anion Gap 14 (12-20); Blood Urea Nitrogen 20 mg/dL (9-16); Calcium 9.1 mg/dL (8.4-10.2); Carbon Dioxide 22 mmol/L (22-29); Chloride 111 mmol/L (96-108); Creatinine Clr Calc Pharmacy 76.1; Estimated Glomerular Filt Rate > 60; Glucose Random 89 mg/dL (60-115); Magnesium 2.1 mg/dL (1.6-2.6); Potassium 4.2 mmol/L (3.3-5.1); Sodium 143 mmol/L (135-145)
--- NOTE | 2024-11-02 16:55 | PM.DS ---
DS: Providers Provider Date of Service: 11/02/24 Date of admission: 11/02/24 01:57 Date of discharge: 11/02/24 Primary care physician: Luke Kamara III, MD Consults: 11/02/24 10:28 Consult to Cardiology Routine Consulting Provider: [facility] Reason for consultation: bradycardia Has provider been notified: Yes Attending physician on discharge: Maruo Sandoval DS: Transfer Hospital Acceptance Reason for Transfer: Need for biventricular pacemaker implantation Name of Facility: [facility] DS: Diagnosis Discharge Diagnosis (1) Second degree AV block: Status: Acute DS: Summary Time Attestation Discharge Coordination Time (in mins): 35 Quality: Safe Use of Opioids Does Pt have an Active Cancer Diagnosis on the Problem List?: No Quality: Stroke Does the patient have a stroke diagnosis?: No Physical Exam Vital Signs: Vital Signs: Last Vital Signs Temp 97.6 F 11/02/24 16:00 Pulse 33 L 11/02/24 16:00 Resp 14 11/02/24 16:00 BP 157/50 H 11/02/24 16:00 Pulse Ox 95 11/02/24 16:00 O2 Del Method Room Air 11/02/24 16:00 BMI result Body Mass Index 26.2 General: Elderly male not in acute distress, lying comfortably in the bed Nutritional Appearance: well nourished and overweight Eyes: appearance normal, both eyes and all related structures; Alignment and Position: alignment normal and position normal Neck: No lymphadenopathy, no thyromegaly Resp: bilateral air entry equal, occasional added sounds present Cardio: Regular rate, regular rhythm; Heart sounds: S1 normal heart sound present and S2 normal heart sound present GI: soft, nontender, no guarding, no hepatosplenomegaly : bladder normal to inspection, bladder normal to palpation, no renal angle tenderness Skin: no rashes or lesions noted and elasticity normal Neuro: oriented to person, oriented to place, oriented to time and moves all extremities DS: Data Data Completed and Pending Completed studies during hospitalization [Text1]: Procedures Insertion of Endotracheal Airway into Trachea, Via Natural or Artificial Opening (06/15/21) Insertion of Infusion Device into Superior Vena Cava, Percutaneous Approach (06/15/21) Introduction of Remdesivir Anti-infective into Peripheral Vein, Percutaneous Approach, [employer] (06/15/21) Introduction of Vasopressor into Peripheral Vein, Percutaneous Approach (06/15/21) Isolation (06/15/21) Reposition Lumbar Vertebra, Percutaneous Approach (06/15/21) Reposition Thoracic Vertebra, Percutaneous Approach (06/15/21) Respiratory Ventilation, Greater than 96 Consecutive Hours (06/15/21) Supplement Lumbar Vertebra with Synthetic Substitute, Percutaneous Approach (06/15/21) Supplement Thoracic Vertebra with Synthetic Substitute, Percutaneous Approach (06/15/21) Transfusion of Nonautologous Red Blood Cells into Peripheral Vein, Percutaneous Approach (06/15/21) Labs on day of discharge: Laboratory Results - last 24 hr 11/02/24 11/02/24 11/02/24 00:31 00:33 03:16 WBC 8.4 RBC 4.73 Hgb 14.6 Hct 44.7 MCV 94.5 MCH 30.9 MCHC 32.7 RDW 13.0 Plt Count 277 MPV 10.3 Immature Gran % (Auto) 0.4 Neut % (Auto) 59.8 Lymph % (Auto) 29.3 [place] % (Auto) 9.1 Eos % (Auto) 1.0 Baso % (Auto) 0.4 Lymph # (Auto) 2.5 [place] # (Auto) 0.8 Eos # (Auto) 0.1 Baso # (Auto) 0.0 Abs Immat Gran (auto) 0.03 Absolute Neuts (auto) 5.0 Absolute Nucleated RBC 0.000 Nucleated RBC % (auto) 0.0 PT 11.1 INR 1.0 Sodium 141 Potassium 4.5 D Chloride 112 H Carbon Dioxide 16 L Anion Gap 18 BUN 22 H Creatinine 1.43 H Estim Creat Clear Calc 60.7 Estimated GFR 49 POC Glucose 79 Random Glucose 86 Calcium 9.1 Phosphorus Magnesium Total Bilirubin AST ALT Alkaline Phosphatase Troponin I High Sens 18.0 D B-Natriuretic Peptide 317 H Total Protein Albumin Urine Color Urine Appearance Urine pH Ur Specific [place] Urine Protein Urine Glucose (UA) Urine Ketones Urine Blood Urine Nitrite Ur Leukocyte Esterase Urine RBC Urine WBC Ur Squamous Epith Cells Urine Bacteria Hyaline Casts Urine Opiates Screen Ur Buprenorphine Scrn Ur Oxycodone Screen Urine Methadone Screen Urine Fentanyl Screen Ur Barbiturates Screen Ur Phencyclidine Scrn Ur Amphetamines Screen U Benzodiazepines Scrn Urine Cocaine Screen U Marijuana (THC) Screen Influenza Type A (PCR) NEGATIVE Influenza Type B (PCR) NEGATIVE RSV RNA Qual (PCR) NEGATIVE SARS-CoV-2 RNA (RT-PCR) NEGATIVE 11/02/24 11/02/24 11/02/24 05:42 05:51 06:17 WBC 5.4 RBC 3.96 L Hgb 12.4 L Hct 37.4 L MCV 94.4 MCH 31.3 MCHC 33.2 RDW 13.0 Plt Count 218 MPV 10.9 Immature Gran % (Auto) 0.2 Neut % (Auto) 66.7 Lymph % (Auto) 23.6 [place] % (Auto) 8.0 Eos % (Auto) 1.1 Baso % (Auto) 0.4 Lymph # (Auto) 1.3 [place] # (Auto) 0.4 Eos # (Auto) 0.1 Baso # (Auto) 0.0 Abs Immat Gran (auto) 0.01 Absolute Neuts (auto) 3.6 Absolute Nucleated RBC 0.000 Nucleated RBC % (auto) 0.0 PT INR Sodium 144 Potassium 4.2 Chloride 112 H Carbon Dioxide 24 Anion Gap 12 BUN 23 H Creatinine 1.27 Estim Creat Clear Calc 68.3 Estimated GFR 57 POC Glucose 76 Random Glucose 81 Calcium 8.7 Phosphorus 3.2 Magnesium 2.0 Total Bilirubin 0.6 AST 29 ALT 38 Alkaline Phosphatase 62 Troponin I High Sens B-Natriuretic Peptide Total Protein 6.3 L Albumin 3.7 Urine Color Yellow Urine Appearance Clear Urine pH 5.5 Ur Specific [place] >= 1.030 H Urine Protein 30 (1+) H Urine Glucose (UA) 250 H Urine Ketones 15 Urine Blood Negative Urine Nitrite Negative Ur Leukocyte Esterase Negative Urine RBC 0-2 Urine WBC 0-5 Ur Squamous Epith Cells 0-2 Urine Bacteria None Seen Hyaline Casts 0-2 Urine Opiates Screen Not Detected Ur Buprenorphine Scrn Not Detected Ur Oxycodone Screen Not Detected Urine Methadone Screen Not Detected Urine Fentanyl Screen Not Detected Ur Barbiturates Screen Not Detected Ur Phencyclidine Scrn Not Detected Ur Amphetamines Screen Not Detected U Benzodiazepines Scrn Not Detected Urine Cocaine Screen POSITIVE H U Marijuana (THC) Screen Not Detected Influenza Type A (PCR) Influenza Type B (PCR) RSV RNA Qual (PCR) SARS-CoV-2 RNA (RT-PCR) 11/02/24 11/02/24 11/02/24 06:18 11:55 14:59 WBC RBC Hgb Hct MCV MCH MCHC RDW Plt Count MPV Immature Gran % (Auto) Neut % (Auto) Lymph % (Auto) [place] % (Auto) Eos % (Auto) Baso % (Auto) Lymph # (Auto) [place] # (Auto) Eos # (Auto) Baso # (Auto) Abs Immat Gran (auto) Absolute Neuts (auto) Absolute Nucleated RBC Nucleated RBC % (auto) PT INR Sodium 143 Potassium 4.2 Chloride 111 H Carbon Dioxide 22 Anion Gap 14 BUN 20 H Creatinine 1.14 Estim Creat Clear Calc 76.1 Estimated GFR > 60 POC Glucose 149 H 89 Random Glucose 89 Calcium 9.1 Phosphorus Magnesium 2.1 Total Bilirubin AST ALT Alkaline Phosphatase Troponin I High Sens B-Natriuretic Peptide Total Protein Albumin Urine Color Urine Appearance Urine pH Ur Specific [place] Urine Protein Urine Glucose (UA) Urine Ketones Urine Blood Urine Nitrite Ur Leukocyte Esterase Urine RBC Urine WBC Ur Squamous Epith Cells Urine Bacteria Hyaline Casts Urine Opiates Screen Ur Buprenorphine Scrn Ur Oxycodone Screen Urine Methadone Screen Urine Fentanyl Screen Ur Barbiturates Screen Ur Phencyclidine Scrn Ur Amphetamines Screen U Benzodiazepines Scrn Urine Cocaine Screen U Marijuana (THC) Screen Influenza Type A (PCR) Influenza Type B (PCR) RSV RNA Qual (PCR) SARS-CoV-2 RNA (RT-PCR) Discharge Plan Discharge Anticipated Discharge Date/Time: 11/02/24 18:56 Patient Disposition: Xfer Acute Care Hospital Discharge Diagnosis: Second-degree heart block Referrals: Luke Kamara III, MD [Primary Care Provider] - 1 Week Discharge Medications: Continued albuterol sulfate 2.5 mg /3 mL (0.083 %) solution for nebulization 2.5 mg inhalation QID PRN (Reason: shortness of breath or wheezing) Qty: 75 0RF fluticasone propionate 50 mcg/actuation spray,suspension 2 spray intranasal DAILY budesonide-formoterol 160-4.5 mcg/actuation HFA aerosol inhaler 2 puff inhalation BID Entresto 49-51 mg tablet 1 tab PO BID spironolactone 25 mg tablet 25 mg DAILY mirtazapine 30 mg tablet 30 mg BEDTIME albuterol sulfate [Ventolin HFA] 90 mcg/actuation HFA aerosol inhaler 2 puff inhalation Q4H PRN (Reason: wheezing) paroxetine HCl 40 mg tablet 40 mg PO DAILY Discontinued Stelara 90 mg/mL Syringe 90 mg SUBCUT Q4W Rx Instructions: last took on 09/16/23, will due 10/16/23 melatonin 5 mg capsule 5 mg PO BEDTIME PRN (Reason: Sleep) Rinvoq 45 mg tablet extended release 24 hr 45 mg PO DAILY No Action (DME) commode Kit See Rx Instructions .Route Qty: 1 0RF Rx Instructions: As directed need 3 in 1 bedside commode and shower chair Discharge Orders: Discharge Order (Routine); Ordered 11/02/24 Ordered By: Mauro Sandoval Activity on Discharge: As tolerated Stand Alone Forms: Patient Portal Discharge page Print Language: Azerbaijani Care Plan Goals: Patient is transferred to an acute care facility for biventricular pacemaker needs Health Concerns: Patient is bradycardic, not much symptomatic from it. He has been complaining of shortness of breath for some time Plan of Treatment: Transferred to higher level of care for biventricular pacemaker Assessment: 64-year-old male with a past medical history of Congestive heart failure?reduced ejection fraction due to nonischemic cardiomyopathy, hypertension, diabetes mellitus, acute promyelocytic leukemia s/p chemo in remission since 2017, anemia, anxiety, depression, asthma, Crohn's disease, IBS, chronic constipation, and past history of cocaine use presented to the hospital with worsening shortness of breath on exertion. Patient is asymptomatic at rest. His EKG showed first-degree as well as second-degree AV gera block block, lab stable, no other precipitating factors. He has been transferred to higher level of care for biventricular pacemaker implantation.
[2024-11-02 17:58] LABS: Glucose, Whole Blood 115 mg/dL (60-115)
== END 2024-11-02 18:04 | disposition short-term general hospital (02) | DRG 309 ==
LOC: HO.ED 01:31 → HO.EDOVER 02:03 → HO.ICU 03:07
PROVIDERS: Registered Nurse Community Health; Admitting Provider Internal Medicine; Emergency Provider Emergency Medicine; PCP Internal Medicine; Visit Provider Internal Medicine Critical Care Medicine
DX: I44.1 Atrioventricular block, second degree (principal); I50.22 Chronic systolic (congestive) heart failure; N17.9 Acute kidney failure, unspecified; I11.0 Hypertensive heart disease with heart failure; E11.9 Type 2 diabetes mellitus without complications; I42.8 Other cardiomyopathies; Z20.822 Contact with and (suspected) exposure to COVID-19; Z79.51 Long term (current) use of inhaled steroids; Z79.899 Other long term (current) drug therapy
CPT/HCPCS: 0241U; 36415; 71045; 80048; 80053; 80307; 81001; 82947; 83735; 83880; 84100; 84484; 85025; 85610; 93005; 93306; 99285; J1644; Q9957

== ENCOUNTER → 2024-11-02 00:39 | Outpatient (BNV) | payer OTHER, SELFPAY | PROVIDERS: Admitting Provider Internal Medicine; Emergency Provider Emergency Medicine; PCP Internal Medicine; Visit Provider Radiology Diagnostic Radiology | DX: I50.9 Heart failure, unspecified (principal); R06.02 Shortness of breath | CPT/HCPCS: 71045 ==

== ENCOUNTER → 2024-11-02 01:57 | Outpatient (BNV) | payer OTHER, SELFPAY | PROVIDERS: Admitting Provider Internal Medicine; Emergency Provider Emergency Medicine; PCP Internal Medicine; Visit Provider Internal Medicine Critical Care Medicine | DX: I42.8 Other cardiomyopathies (principal); R00.1 Bradycardia, unspecified; I44.1 Atrioventricular block, second degree; N17.9 Acute kidney failure, unspecified; I50.9 Heart failure, unspecified | CPT/HCPCS: 99239; 99499 ==

== ENCOUNTER → 2024-11-02 01:57 | Outpatient (BNV) | payer OTHER, SELFPAY | PROVIDERS: Admitting Provider Internal Medicine; Emergency Provider Emergency Medicine; PCP Internal Medicine; Visit Provider Internal Medicine Cardiovascular Disease | DX: I44.1 Atrioventricular block, second degree (principal); I51.7 Cardiomegaly; I35.1 Nonrheumatic aortic (valve) insufficiency; I34.0 Nonrheumatic mitral (valve) insufficiency | CPT/HCPCS: 93010; 93306; 99223 ==

== ENCOUNTER 2025-03-16 13:04 | Emergency (ER) | payer OTHER, SELFPAY ==
--- NOTE | ~2025-03-16 | US_ITS ---
EXAMINATION: US TRIPLEX UPPER EXTREMITY, RIGHT CLINICAL INFORMATION: Upper extremity pain and swelling after injury COMPARISON: None available. TECHNIQUE: Color-flow triplex imaging with spectral analysis and compression Doppler was performed on the right upper extremity. FINDINGS: The right internal jugular, subclavian, and axillary veins are patent and free of thrombus. The imaged segment of the right brachiocephalic vein is patent. Spectral doppler waveforms are normal. The brachial, basilic, cephalic, radial, and ulnar veins are patent and compressible. US/US venous duplex UE RT IMPRESSION: No evidence of deep venous thrombosis involving the right upper extremity. Electronically signed by: Sumit Goldstein MD 03/16/2025 03:06 PM EDT
--- NOTE | ~2025-03-16 | XR_ITS ---
EXAMINATION: XR HUMERUS, RIGHT CLINICAL INFORMATION: pain and bruising, screen door fell on him COMPARISON: None available. TECHNIQUE: AP and lateral views of the right humerus. FINDINGS: No acute fracture or deformity. XR/XR humerus RT IMPRESSION: Unremarkable right humerus. Electronically signed by: Sumit Goldstein MD 03/16/2025 01:55 PM EDT
[2025-03-16 13:30] VITALS: BP 141/68; PULSE 76; RESP 16; TEMP 37; O2SAT 95; BMI 30.9
--- NOTE | 2025-03-16 13:30 | ED.GENADULT ---
HPI - General Adult General Chief complaint: Extremity Injury, Upper Stated complaint: R arm bruising Related Data Home Medications ?Medication ?Instructions ?Recorded ?Confirmed albuterol sulfate 90 mcg/actuation 2 puff inhalation Q4H PRN wheezing 10/13/23 11/02/24 aerosol inhaler (Ventolin HFA) mirtazapine 30 mg tablet 30 mg BEDTIME 10/13/23 11/02/24 paroxetine HCl 40 mg tablet 40 mg PO DAILY 10/13/23 11/02/24 spironolactone 25 mg tablet 25 mg DAILY 10/13/23 11/02/24 budesonide-formoterol HFA 160 2 puff inhalation BID 11/02/24 11/02/24 mcg-4.5 mcg/actuation aerosol inhaler fluticasone propionate 50 2 spray intranasal DAILY 11/02/24 11/02/24 mcg/actuation nasal spray,suspension sacubitril 49 mg-valsartan 51 mg 1 tab PO BID 11/02/24 11/02/24 tablet (Entresto) Previous Rx's ?Medication ?Instructions ?Recorded commode #1 ea 08/21/21 albuterol sulfate 2.5 mg/3 mL 2.5 mg (3 mL) inhalation QID PRN 06/12/24 (0.083 %) solution for nebulization shortness of breath or wheezing #75 mL Allergies Allergy/AdvReac Type Severity Reaction Status Date / Time No Known Allergies Allergy Verified 03/16/25 13:33 [facility] Past Medical History Medical History Nonischemic cardiomyopathy Mayda tropicalis infection SAM (generalized anxiety disorder) History of subarachnoid hemorrhage (~08/2016) Pneumomediastinum Suppression of immune system subtherapeutic Morbid obesity Acute respiratory distress syndrome (ARDS) CHF (congestive heart failure) Hypoxia Pneumonia due to COVID-19 virus (~06/2021) Anemia IBD (inflammatory bowel disease) Normocytic anemia Diarrhea Chronic idiopathic constipation Acute promyelocytic leukemia (~08/2016) Left sided abdominal pain Crohn disease (~2002) Elevated serum glutamic pyruvic transaminase (SGPT) level Thalamic pain syndrome (hyperesthetic) Renal stones Kidney disease Colitis (~2002) Hypertension Asthma Depression Anxiety Diabetes 1.5, managed as type 1 Surgical History History of bone marrow biopsy (~2016) History of esophagogastroduodenoscopy (EGD) (~2020) History of right knee surgery (~2016) History of surgery on right wrist (~2006) History of lithotripsy (~2017) History of rectal sphincterotomy (~2003) History of colonoscopy (~2020) History of cholecystectomy (~2011) History of hemorrhoidectomy (~2003) Social History Social History Household Members: None Housing: Apartment Do you presently have visiting nurse or other home services: No Alcohol intake: current Alcohol intake frequency: a few times a month Alcohol type: beer Patient Tobacco Use Status: Never used Tobacco e-Cigarette/Vaping Use: Never Used Second Hand Smoke Exposure: No Substance Use Type: Crack/Cocaine Advance Directives: Yes Advance Directives on File: Yes Advance Directives Date on File: 04/04/21 service: No Current occupational status: disabled Physical Exam ED Vital Signs: BMI result Body Mass Index 30.9 Course Course Course Narrative: This is a rapid medical exam performed by Rafita Abreu NP: Additional HPI, ROS, PE not included below will be deferred to primary provider. Patient is a 64y/o M presenting with complaint of right arm pain, swelling and bruising since yesterday. States he was trying to close a screen and it fell back onto his arm. Plan: xray, us Patient left the emergency department before myself or any of the other clinicians could review or explain physical exam findings, test results, need or lack there of for additional testing, treatment options, or a treatment plan. Discharge Plan Discharge Clinical Impression: Arm pain, right Patient Disposition: Left W/O Completing Treatment Prescriptions: No Action (DME) commode Kit See Rx Instructions .Route Qty: 1 0RF Rx Instructions: As directed need 3 in 1 bedside commode and shower chair albuterol sulfate 2.5 mg /3 mL (0.083 %) solution for nebulization 2.5 mg inhalation QID PRN (Reason: shortness of breath or wheezing) Qty: 75 0RF fluticasone propionate 50 mcg/actuation spray,suspension 2 spray intranasal DAILY budesonide-formoterol 160-4.5 mcg/actuation HFA aerosol inhaler 2 puff inhalation BID Entresto 49-51 mg tablet 1 tab PO BID spironolactone 25 mg tablet 25 mg DAILY mirtazapine 30 mg tablet 30 mg BEDTIME albuterol sulfate [Ventolin HFA] 90 mcg/actuation HFA aerosol inhaler 2 puff inhalation Q4H PRN (Reason: wheezing) paroxetine HCl 40 mg tablet 40 mg PO DAILY Discharge Date/Time: 03/16/25 20:33
[2025-03-16 17:52] VITALS: BP 137/70; PULSE 61; RESP 16; O2SAT 96
--- NOTE | 2025-03-16 20:33 | PC.NURSE ---
called patient from waiting room and no answer.
== END 2025-03-16 20:33 | disposition left against medical advice (07) ==
PROVIDERS: Emergency Provider Emergency Medicine; PCP Internal Medicine
DX: M79.601 Pain in right arm (principal); R60.0 Localized edema; Z79.899 Other long term (current) drug therapy
CPT/HCPCS: 73060; 93971; 99282; 99284

== ENCOUNTER → 2025-03-16 13:32 | Outpatient (BNV) | payer OTHER, SELFPAY | PROVIDERS: PCP Internal Medicine; Visit Provider Radiology Diagnostic Radiology | DX: R22.31 Localized swelling, mass and lump, right upper limb (principal); M79.621 Pain in right upper arm | CPT/HCPCS: 73060; 93971 ==

== ENCOUNTER 2025-04-27 12:08 | Emergency (ER) | payer OTHER, SELFPAY ==
[2025-04-27] VITALS (9 sets, daily range): BP systolic 111–185; BP diastolic 48–78; PULSE 67–90; RESP 18–22; TEMP 36–36.7; O2SAT 83–98; BMI 36.7
--- NOTE | ~2025-04-27 | XR_ITS ---
EXAMINATION: XR CHEST CLINICAL INFORMATION: sob COMPARISON: November 02, 2024 TECHNIQUE: PA and lateral views FINDINGS: Elevated right hemidiaphragm, old/chronic. Pulmonary reticular pattern. No consolidation, pleural effusion or pneumothorax. 2 intact electrode leads in the right heart chambers and a metallic pacemaker reservoir in the anterior left upper chest, new since prior exam. Cardiomediastinal silhouette size is normal. Multilevel thoracolumbar spondylosis with a kyphotic deformity and status post kyphoplasty/vertebroplasty procedure at probably T11. Old compression deformity with vertebral plana morphology at T10 and probably L1, unchanged since prior exam. XR/XR chest 2V IMPRESSION: New left-sided pacemaker placement without gross pneumothorax. 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 Old compression fracture deformities lower thoracic upper lumbar spine and status post kyphoplasty/vertebroplasty procedure probably at T11. Electronically signed by: Bobby Mendoza MD 04/27/2025 01:11 PM [facility]
--- NOTE | 2025-04-27 12:10 | ECG_ITS ---
Test Reason : CP Blood Pressure : */* mmHG Vent. Rate : 87 BPM Atrial Rate : 87 BPM P-R Int : 168 ms QRS Dur : 150 ms QT Int : 388 ms P-R-T Axes : 15 56 59 degrees QTcB Int : 466 ms Atrial-sensed ventricular-paced rhythm Abnormal ECG When compared with ECG of 02-Nov-2024 03:49, Electronic ventricular pacemaker has replaced Sinus rhythm Vent. rate has increased by 51 bpm Referred By: Lauren Scanlon Electronically Signed By: RUFINA RODRIGUEZ
--- NOTE | 2025-04-27 12:45 | ED.CHESTPAIN ---
HPI - Chest Pain General Chief Complaint: Dyspnea Stated Complaint: Cp and cant breathe Time Seen by Provider: 04/27/25 14:06 Source: patient Mode of arrival: ambulatory Limitations: no limitations History of Present Illness ED Provider: Dr. Jones HPI narrative: 64-year-old male history of nonischemic cardiomyopathy, pacemaker implantation heart block, hypertension presented hospital today for evaluation of shortness of breath. Patient has noticed that he has been having increasingly exertional shortness of breath when he ambulates or walks up the stair. Patient stated that he can not fully catch his breath. He has difficulty sleeping due to his shortness of breath. Related Data Home Medications ?Medication ?Instructions ?Recorded ?Confirmed albuterol sulfate 90 mcg/actuation 2 puff inhalation Q4H PRN wheezing 10/13/23 11/02/24 aerosol inhaler (Ventolin HFA) mirtazapine 30 mg tablet 30 mg BEDTIME 10/13/23 11/02/24 paroxetine HCl 40 mg tablet 40 mg PO DAILY 10/13/23 11/02/24 spironolactone 25 mg tablet 25 mg DAILY 10/13/23 11/02/24 budesonide-formoterol HFA 160 2 puff inhalation BID 11/02/24 11/02/24 mcg-4.5 mcg/actuation aerosol inhaler fluticasone propionate 50 2 spray intranasal DAILY 11/02/24 11/02/24 mcg/actuation nasal spray,suspension sacubitril 49 mg-valsartan 51 mg 1 tab PO BID 11/02/24 11/02/24 tablet (Entresto) Previous Rx's ?Medication ?Instructions ?Recorded commode #1 ea 08/21/21 albuterol sulfate 2.5 mg/3 mL 2.5 mg (3 mL) inhalation QID PRN 06/12/24 (0.083 %) solution for nebulization shortness of breath or wheezing #75 mL azithromycin 250 mg tablet See Rx Instructions PO .COMPLEX #6 04/27/25 tabs prednisone 50 mg tablet 50 mg PO DAILY 7 days #7 tabs 04/27/25 Allergies Allergy/AdvReac Type Severity Reaction Status Date / Time No Known Allergies Allergy Verified 04/27/25 12:46 Review of Systems Review of Systems: Pertinent review of systems as mentioned in HPI. All other system otherwise negative. [facility] Past Medical History [facility] Narrative: Medical history as mentioned in HPI Medical History Nonischemic cardiomyopathy Mayda tropicalis infection SAM (generalized anxiety disorder) History of subarachnoid hemorrhage (~08/2016) Pneumomediastinum Suppression of immune system subtherapeutic Morbid obesity Acute respiratory distress syndrome (ARDS) CHF (congestive heart failure) Hypoxia Pneumonia due to COVID-19 virus (~06/2021) Anemia IBD (inflammatory bowel disease) Normocytic anemia Diarrhea Chronic idiopathic constipation Acute promyelocytic leukemia (~08/2016) Left sided abdominal pain Crohn disease (~2002) Elevated serum glutamic pyruvic transaminase (SGPT) level Thalamic pain syndrome (hyperesthetic) Renal stones Kidney disease Colitis (~2002) Hypertension Asthma Depression Anxiety Diabetes 1.5, managed as type 1 Surgical History History of bone marrow biopsy (~2016) History of esophagogastroduodenoscopy (EGD) (~2020) History of right knee surgery (~2016) History of surgery on right wrist (~2006) History of lithotripsy (~2017) History of rectal sphincterotomy (~2003) History of colonoscopy (~2020) History of cholecystectomy (~2011) History of hemorrhoidectomy (~2003) Social History Social History Household Members: None Housing: Apartment Do you presently have visiting nurse or other home services: No Alcohol intake: current Alcohol intake frequency: does not drink Alcohol type: beer Patient Tobacco Use Status: Never used Tobacco Smoked in Last 30 Days: No e-Cigarette/Vaping Use: Never Used Second Hand Smoke Exposure: No Use of substances other than those prescribed or required for medical reasons: No Substance Use Type: Crack/Cocaine Advance Directives: Yes Advance Directives on File: Yes Advance Directives Date on File: 04/04/21 service: No Current occupational status: disabled Physical Exam Exam: Exam: General: Pleasant, no distress, interacting appropriately Head: Normacephalic, atraumatic ENT: oral mucosa moist, neck supple, no tracheal deviation Cardiovascular: regular rate, regular rhythm, no murmurs, rubbing, gallops Respiratory: Bilateral wheezing on exam Gastrointestinal: Soft, non distended, non tender, non guarding Extremities: No limb pain or swelling, no calf tenderness Neurological: Awake and alert, no facial droop noted Skin: Warm and dry Psychiatric: Appropriate mood and thoughts Vital Signs: Vital Signs: Last Vital Signs Temp 98.0 F 04/27/25 18:43 Pulse 85 04/27/25 18:43 Resp 18 04/27/25 18:43 BP 117/54 L 04/27/25 18:43 Pulse Ox 94 04/27/25 18:43 O2 Del Method Nasal Cannula 04/27/25 18:43 O2 Flow Rate 2 04/27/25 18:43 BMI result Body Mass Index 36.7 Course Course Course Narrative: This is a Rapid Medical Exam performed in triage by Lauren Scanlon PA-C. Full HPI, ROS and PE to be performed by primary ED provider. 64-year-old male with a past medical history GOLDEN, cardiomyopathy, CHF, Crohn's, HTN, cocaine abuse, presenting to the ED c/o SOB on exertion x3-4 days. denies CP, pedal edema PE: talking in complete sentences, lungs CTA, no pedal edema Plan: EKG, labs, CXR Medications Administered Discontinued Medications Generic Name Dose Route Start Last Admin Trade Name Freq PRN Reason Stop Dose Admin Albuterol Sulfate 2.5 mg/ 0 mg 04/27/25 16:05 04/27/25 16:08 Albuterol/Ipratropium 3 ml INHALE 04/27/25 16:06 1 dose ONCE ONE Administration Albuterol Sulfate 2.5 mg/ 0 mg 04/27/25 17:36 04/27/25 17:37 Albuterol/Ipratropium 3 ml INHALE 04/27/25 17:37 1 dose ONCE ONE Administration Magnesium Sulfate 2 gm in 50 mls @ 50 mls/hr 04/27/25 15:21 04/27/25 16:00 Magnesium Sulfate/H2o IV 04/27/25 16:20 Infused ONCE ONE Infusion Prednisone 50 mg 04/27/25 15:21 04/27/25 15:32 Prednisone 10 Mg Tablet PO 04/27/25 15:22 50 mg ONCE ONE Administration Medical Decision Making Medical Decision Making MDM Narrative: 64-year-old male history of CAD, heart block status post pacemaker implantation, CHF, nonischemic cardiomyopathy presented hospital today for evaluation of shortness of breath. Chest x-ray will be obtain ACS workup will be obtained along with EKG. Troponin will be obtained BNP will be obtained I suspect this is likely asthma exacerbation given patient's wheezing. Patient felt better after breathing treatment here. However upon ambulation with a pulse ox. Patient's desats to 86% we will plan to give additional breathing treatment for the patient. Patient's lab work shows slight anemia at 13.8, chemistries unremarkable. Patient's troponin is negative. BNP is not elevated. Chest x-ray did not show any signs of significant abnormality. I do not think patient has sepsis. EKG shows paced rhythm. Troponins negative. BNP is negative. Chest x-ray is unremarkable. We ambulated the patient with a pulse ox. Patient does desat to 86%. Additional breathing treatment provided the patient. He was ambulate once more. Patient's sats does drop to 88%. However patient states he feels better. Resting O2 saturation is 92%. I did discuss with the patient. He does feel comfortable going home. We will plan to prescribe patient prednisone burst for asthma versus COPD exacerbation. Patient does have nebulizer at home. And a albuterol pump at home. Patient will be discharged home. Differential Diagnosis Differential Diagnoses: The differential diagnosis associated with the presentation includes Asthma exacerbation, CHF exacerbation, pneumonia, Admission/Observation Consideration of admission/observation: Escalation of care including admission/observation considered Lab Data MDM Lab Attestation statement: I reviewed the patient's lab results. 04/27/25 13:09 04/27/25 13:09 Labs: Lab Results 04/27/25 Range/Units 13:09 WBC 5.9 (4.8-10.8) X10*3/uL RBC 4.27 L (4.60-5.80) X10*6/uL Hgb 13.8 L (14.0-18.0) g/dl Hct 42.8 (42.0-52.0) % MCV 100.2 H (80.0-98.0) fL MCH 32.3 (27.0-33.0) pg MCHC 32.2 (31.0-36.0) g/dl RDW 14.0 (11.0-16.0) % Plt Count 248 (160-400) X10*3/uL MPV 8.9 L (9.4-12.4) fL Immature Gran % (Auto) 0.3 (0.0-0.4) % Neut % (Auto) 57.9 (45-73) % Lymph % (Auto) 26.8 (20-40) % Armstrong % (Auto) 14.3 H (2-11) % Eos % (Auto) 0.5 (0-4) % Baso % (Auto) 0.2 (0-2) % Lymph # (Auto) 1.6 (1.2-4.9) X10*3/uL Armstrong # (Auto) 0.8 (0.1-1.2) X10*3/uL Eos # (Auto) 0.0 (0.0-0.4) X10*3/uL Baso # (Auto) 0.0 (0.0-0.2) X10*3/uL Abs Immat Gran (auto) 0.02 (0.00-0.03) X10*3/uL Absolute Neuts (auto) 3.4 (2.0-8.3) x10*3/uL Absolute Nucleated RBC 0.000 (0.0-0.012) X10*3/uL Nucleated RBC % (auto) 0.0 (0.0-0.2) /100WBC Sodium 140 (135-145) mmol/L Potassium 4.4 (3.3-5.1) mmol/L Chloride 105 (96-108) mmol/L Carbon Dioxide 26 (22-29) mmol/L Anion Gap 13 (12-20) BUN 25 H (9-16) mg/dL Creatinine 0.97 (0.5-1.4) mg/dL Estim Creat Clear Calc 95.5 Estimated GFR > 60 Random Glucose 105 (60-115) mg/dL Calcium 9.2 (8.4-10.2) mg/dL Magnesium 2.2 (1.6-2.6) mg/dL Total Bilirubin 0.5 (0.0-1.0) mg/dL Direct Bilirubin 0.1 (0.0-0.5) mg/dL AST 39 H (5-37) U/L ALT 30 (0-40) U/L Alkaline Phosphatase 90 (39-117) U/L Troponin I High Sens 5.7 D (<3.5-35.0) ng/L NT-Pro-B Natriuret Pep 61.7 (<300) pg/mL Total Protein 7.8 (6.5-8.0) g/dL Albumin 4.5 (3.5-5.0) g/dL Influenza Type A (PCR) NEGATIVE (Negative) Influenza Type B (PCR) NEGATIVE (Negative) RSV RNA Qual (PCR) NEGATIVE (Negative) SARS-CoV-2 RNA (RT-PCR) NEGATIVE (Negative) Independent Interpretation I performed an independent interpretation of an: Plain X-Ray Radiology Impression Discussion of test interpretation with radiology: I have reviewed the radiologist's reading. Discharge Plan Discharge Clinical Impression: Asthma exacerbation Qualifiers: Asthma severity: moderate Asthma persistence: unspecified Qualified Code(s): J45.901 - Unspecified asthma with (acute) exacerbation Patient Disposition: Home, Self-Care Instructions: Asthma (ED) Prescriptions: New prednisone 50 mg tablet 50 mg PO DAILY 7 Days Qty: 7 0RF azithromycin 250 mg tablet See Rx Instructions .ROUTE .COMPLEX Qty: 6 0RF Rx Instructions: For 250 mg dose pack: take 500 mg today (day 1), then 250 mg for 4 days (days 2-5) No Action (DME) commode Kit See Rx Instructions .Route Qty: 1 0RF Rx Instructions: As directed need 3 in 1 bedside commode and shower chair albuterol sulfate 2.5 mg /3 mL (0.083 %) solution for nebulization 2.5 mg inhalation QID PRN (Reason: shortness of breath or wheezing) Qty: 75 0RF fluticasone propionate 50 mcg/actuation spray,suspension 2 spray intranasal DAILY budesonide-formoterol 160-4.5 mcg/actuation HFA aerosol inhaler 2 puff inhalation BID Entresto 49-51 mg tablet 1 tab PO BID spironolactone 25 mg tablet 25 mg DAILY mirtazapine 30 mg tablet 30 mg BEDTIME albuterol sulfate [Ventolin HFA] 90 mcg/actuation HFA aerosol inhaler 2 puff inhalation Q4H PRN (Reason: wheezing) paroxetine HCl 40 mg tablet 40 mg PO DAILY Interventions: ED Discharge Assessment Last Done: 04/27/25 20:07 Print Language: Estonian
[2025-04-27 13:13] LABS: MANUAL DIFF FLAG NO
[2025-04-27 13:17] LABS: Hematocrit 42.8 % (42.0-52.0); Hemoglobin 13.8 g/dl (14.0-18.0); Imm Gran Abs Auto 0.02 X10*3/uL (0.00-0.03); Imm Gran Pct Auto 0.3 % (0.0-0.4); Lymphocytes Absolute Auto 1.6 X10*3/uL (1.2-4.9); Mean Corpuscular HGB Conc 32.2 g/dl (31.0-36.0); Mean Corpuscular Hemoglobin 32.3 pg (27.0-33.0); Mean Corpuscular Volume 100.2 fL (80.0-98.0); NRBC Abs Auto 0.000 X10*3/uL (0.0-0.012); NRBC Pct Auto 0.0 /100WBC (0.0-0.2); Platelet Count 248 X10*3/uL (160-400); Red Blood Count 4.27 X10*6/uL (4.60-5.80); White Blood Count 5.9 X10*3/uL (4.8-10.8)
[2025-04-27 13:41] LABS: Alanine Aminotransferase 30 U/L (0-40); Albumin Level 4.5 g/dL (3.5-5.0); Alkaline Phosphatase 90 U/L (39-117); Anion Gap 13 (12-20); Aspartate Amino Transferase 39 U/L (5-37); Blood Urea Nitrogen 25 mg/dL (9-16); Calcium 9.2 mg/dL (8.4-10.2); Carbon Dioxide 26 mmol/L (22-29); Chloride 105 mmol/L (96-108); Creatinine Clr Calc Pharmacy 95.5; Estimated Glomerular Filt Rate > 60; Magnesium 2.2 mg/dL (1.6-2.6); Potassium 4.4 mmol/L (3.3-5.1); Sodium 140 mmol/L (135-145); Total Protein 7.8 g/dL (6.5-8.0); Troponin-I High Sensitivity 5.7 ng/L (<3.5-35.0)
[2025-04-27 13:58] LABS: NT Pro B Type Natriuretic Pept 61.7 pg/mL (<300); Resp Syncy Virus RNA Qual PCR NEGATIVE (Negative); SARS COV2 PCR INHOUSE NEGATIVE (Negative)
--- NOTE | 2025-04-27 14:35 | PC.NURSE ---
Pt is alert and oriented. Reports dyspnea on exertion for about 2 weeks. Denies dizziness or CP or pain at all. LS CTA Skin color WNL. Ambulatory pulse ox completed and 88% on RA noted.
[2025-04-27] MEDS: Magnesium Sulfate/H2O 2 GM/50 ML PIGGYBACK IV (15:32)
[2025-04-27] MEDS: Albuterol Sulfate 2.5 MG, Albuterol/Iprat 2.5/0.5MG 3 ML 3 ML INHALE ×2 (16:08→17:37)
--- OUTSIDE RECORDS SUMMARY | 2025-04-27 16:45 | XMS_ITS | Encounter Summary ---
Author Organization [facility] Address [address] [place] [phone] Phone Care Team Providers Care Hypo Splasher Name Role Phone Luke Kamara MD Primary Care Provider + Encounter Details Date Type Department Care Team (Late st Contact Info) Description 04/27/2025 4:45 PM EST Pre-Admission Testing [facility] Pre-Procedure Evaluation Department Please [place] [phone] Unknown, Unknown, Anesthesia Record Procedure Summary Procedure Name Responsible Anesthesiologist Anesthesia Start Time Anesthesia Stop Time COLONOSCOPY Events No events on file. Meds * Agents No agents on file. * Blood No blood administrations on file. Lines, Drains, and Airways No LDAs on file. documented in this encounter Social History Tobacco Use Types Packs/Day Years Used Date Smoking Tobacco: Never Smokeless Tobacco: Never Alcohol Use Standard Drinks/Week Comments Not Currently 0 (1 standard drink = 0.6 oz pur e alcohol) Education Answer Date Recorded Are you interested in more education? Not on valerio e 10/04/2022 Are you concerned about learning? Not on file 10/04/2022 No 10/04/2022 No 10/04/2022 Digital Access Answer Date Recorded No 11/04/2022 No 11/04/2022 Reliable internet access at home? Not on file 11/04/2022 Device with a working camera? Not on file Intimate Partner Violence Answer Date R ecorded Are you denied basic needs s uch as food, clothing, or medical care? No 05/24/2022 In the past 12 months have y ou been in a relationship with a person who hurts, threatens, or tries to control you? No 05/24/2022 Are you denied basic needs s uch as food, clothing, or medical care? No 05/24/2022 In the past 12 months have y ou been in a relationship with a person who hurts, threatens, or tries to control you? No 05/24/2022 Sex and Gender Information Value Date Recorded Sex Assigned at Not on file Legal Sex Male 9:50 PM EDT Gender Identity Not on file Sexual Orientation Not on file documented as of this encounter Progress Notes * Kaela Valencia, CHRIS - 04/27/2025 4:45 PM EST Bhavik Johnson missed their scheduled Pre-Procedure Evaluation phone appointment after multiple attempts were made to reach them. They should be rescheduled for their PPE appointment as soon as possible to ensure they can safely proceed with their procedure without cancellation or delay. documented in this encounter Plan of Treatment Upcoming Encounters Date Type Department Care Team (Latest Contact Info) Description 05/13/2025 Procedure Pass [facility] 4 ENDO DEPT [address] [address] 05/13/2025 11:45 AM EST Hospital Encounter [facility] 4 ENDO DEPT [address] [address] oJse Lund MBBS, MPH [address] [phone] SEVEN @[email or web address] 05/13/2025 11:45 AM EST Anesthesia Event [facility] 4 ENDO DEPT [address] [address] Crystal Martinez RN [address] [place] [phone] [email or web address] 05/13/2025 11:45 AM EST - 05/13/2025 12:30 PM EST Surgery [facility] 4 ENDO DEPT 55 [address] [facility], 4th [place] [address] Jose Lund MBBS, MPH [address] CPZ [address]80 [place] [phone] SEVEN @[email or web address] COLONOSCOPY 08/11/2025 1:00 PM EST Office Visit [facility] [address] 9th [place] [address] Preite, [place], ROSA [address] [place] [address] [email or web address] Scheduled Procedures Name Priority Associated Diagnoses Date/Ti me COLONOSCOPY Crohn's disease with rectal bleeding, unspecified gastrointestinal tract location 05/13/2025 11:45 AM EST documented as of this encounter Visit Diagnoses Not on filedocumented in this encounter Care Teams Hypo Splasher Relationship Specialty Start Date End Date Luke Kamara MD [address] [place] [phone] PCP - General Internal Medicine 07/26/20 documented as of this encounter Additional Source Comments The information contained in this document represents components of the legal health record. It is not the complete legal health record.[facility]
--- NOTE | 2025-04-27 17:30 | MHC.EDTECH ---
Ambulatory pulse ox completed at this time. Pt desated to 86% but denies any SOB of breath. He sates that he feels better than the previous ambulation trial. RN and Provider aware.
--- NOTE | 2025-04-27 20:09 | PC.NURSE ---
pt ambulated on room air. pt maintained sp02 between 89-93%
--- NOTE | 2025-04-27 20:14 | MHC.EDTECH ---
I took patient vital signs and his O2 was 91 room air. Nurse aware
--- OUTSIDE RECORDS SUMMARY | 2025-04-28 01:35 | XMS_ITS | Encounter Summary ---
Author Organization [facility] Address [address] [facility] [address] [place] [phone] Phone Care Team Providers Care Mold Filling Operator Name Role Phone Luke Kamara MD Primary Care Provider + Encounter Details Date Type Department Care Team (Late st Contact Info) Description 05/24/2022 Procedure Pass [facility] 4 ENDO DEPT 55 [facility], [address] [place] [phone] Social History Tobacco Use Types Packs/Day Years Used Date Smoking Tobacco: Never Smokeless Tobacco: Never Alcohol Use Standard Drinks/Week Comments Not Currently 0 (1 standard drink = 0.6 oz pur e alcohol) Intimate Partner Violence Answer Date R ecorded [...] on file documented as of this encounter Plan of Treatment Upcoming Encounters Date Type Department Care Team (Latest Contact Info) Description 05/13/2025 Procedure Pass [facility] 4 ENDO DEPT 55 [address] [facility], [address] [place] [address] 05/13/2025 11:45 AM EST Hospital Encounter [facility] 4 ENDO DEPT 55 [address] [facility], [address] [place] [address] Jose Lund MBBS, MPH [address] [phone] SEVEN @[email or web address] 05/13/2025 11:45 AM EST Anesthesia Event [facility] 4 ENDO DEPT 55 [facility], 4[address] [place] [address] Crystal Martinez RN [address] [place] [phone] [email or web address] 05/13/2025 11:45 AM EST - 05/13/2025 12:30 PM EST Surgery [facility] 4 ENDO DEPT 55 [facility], 4[address] [place] [address] Jose Lund MBBS, MPH [address] [phone] SEVEN @[facility] COLONOSCOPY 08/11/2025 1:00 PM EST Office Visit [facility] [address] [facility] [address] [place] [address] [place] Gerardo FNP [address] [facility] 5 [place] [address] [email or web address] Scheduled Procedures Name Priority Associated Diagnoses Date/Ti nj COLONOSCOPY Crohn's disease with rectal bleeding, unspecified gastrointestinal tract location 05/13/2025 11:45 AM EST documented as of this encounter Visit Diagnoses Not on filedocumented in this encounter Additional Health Concerns Infection Onset Date Last Indicated Resolved Time CDiff-Risk 09/18/2023 09/18/2023 09/25/2023 1:22 AM EDT documented as of this encounter Care Teams Mold Filling Operator Relationship Specialty Start Date End Date Luke Kamara MD [address] [place] [phone] PCP - General Internal Medicine 07/26/20 documented as of this encounter Additional Source Comments The information contained in this document represents components of the legal health record. It is not the complete legal health record.[facility]
--- OUTSIDE RECORDS SUMMARY | 2025-04-28 01:35 | XMS_ITS | Encounter Summary ---
Author Organization [facility] Address [address] [place] [phone] Phone Care Team Providers Care Track Laying Supervisor Name Role Phone Luke Kamara MD Primary Care Provider + Encounter Details Date Type Department Care Team (Late st Contact Info) Description 09/18/2023 Procedure Pass [facility] [address] ENDO DEPT [address] [facility], 4th [place] [address] Social History Tobacco Use Types Packs/Day Years [...] (Latest Contact Info) Description 05/13/2025 Procedure Pass [facility] 4 ENDO DEPT [address] [phone] 05/13/2025 11:45 AM EST Hospital Encounter [facility] 4 ENDO DEPT [address] [address] Jose Lund MBBS, MPH [address] [phone] SEVEN @[email or web address] 05/13/2025 11:45 AM EST Anesthesia Event [facility] 4 ENDO DEPT 55 [facility], [address] [place] [address] Crystal Martinez RN [address] [place] [phone] [email or web address] 05/13/2025 11:45 AM EST - 05/13/2025 12:30 PM EST Surgery [facility] 4 ENDO DEPT [address] [address] Jose Lund MBBS, MPH [address] [phone] SEVEN @[email or web address] COLONOSCOPY 08/11/2025 1:00 PM EST Office Visit [facility] [address] [place] [address] [place] Gerardo FNP [address] [address] [email or web address] Scheduled Procedures Name Priority Associated Diagnoses Date/Ti me COLONOSCOPY Crohn's disease with rectal bleeding, unspecified gastrointestinal tract location 05/13/2025 11:45 AM EST documented as of this encounter Visit Diagnoses Not on filedocumented in this encounter Additional Health Concerns Infection Onset Date Last Indicated Resolved Time CDiff-Risk 09/18/2023 09/18/2023 09/25/2023 1:22 AM EDT documented as of this encounter Care Teams Track Laying Supervisor Relationship Specialty Start Date End Date Luke Kamara MD [address] [place] [phone] PCP - General Internal Medicine 07/26/20 documented as of this encounter Additional Source Comments The information contained in this document represents components of the legal health record. It is not the complete legal health record.[facility]
--- OUTSIDE RECORDS SUMMARY | 2025-04-28 01:35 | XMS_ITS | Encounter Summary ---
Author Organization [employer] Address [address] 7[address] [place] [address] Care Team Providers Care Eclectic Doctor Name Role Phone Unavailable Primary Care Provider Unavailabl e Encounter Details Date Type Department Care Team (Late st Contact Info) Description 05/06/2022 Abstract [facility] ADULT D[facility] [address] [place] [address] Dental, Provider, DDS Social History Tobacco Use Types Packs/Day Years Used Date Smoking Tobacco: Never Assessed Sex and Gender Information Value Date Recorded Sex Assigned at Male 04/08/2022 10:16 AM EDT Legal Sex Male 10:16 AM EDT Gender Identity Male 04/08/2022 10:16 AM EDT Sexual Orientation Straight 04/08/2022 10 :16 AM EDT COVID-19 Exposure Response Date Recorded In the last 10 days, have dejuan sabillon been in contact with someone who was confirmed or suspected to have Coronavirus/COVID-19? No / Unsure 05/09/2022 10:33 AM EST documented as of this encounter Plan of Treatment Not on file documented as of this encounter Visit Diagnoses Not on filedocumented in this encounter
--- OUTSIDE RECORDS SUMMARY | 2025-04-28 01:35 | XMS_ITS | Encounter Summary ---
Author Organization [employer] Address [address] [facility] [facility] 7[address] [place] [address] Care Team Providers Care Commissary Assistant Name Role Phone Unavailable Primary Care Provider Unavailabl e Encounter Details Date Type Department Care Team (Latest Contact Info) Description 11/19/2021 Abstract [facility] CONVERSIONS Dental, Provider, DDS Social History Tobacco Use Types Packs/Day Years Used Date Smoking Tobacco: Never Assessed Sex and Gender Information Value Date Recorded Sex Assigned at Male 04/08/2022 10:16 AM EDT Legal Sex Male 10:16 AM EDT Gender Identity Male 04/08/2022 10:16 AM EDT Sexual Orientation Straight 04/08/2022 10 :16 AM EDT documented as of this encounter Plan of Treatment Not on file documented as of this encounter Visit Diagnoses Not on filedocumented in this encounter
--- OUTSIDE RECORDS SUMMARY | 2025-04-28 01:35 | XMS_ITS | Clinical Summary ---
Author Organization [employer] Address [address] [place] [address] 7t [place] [address] Care Team Providers Care Cdl Instructor Name Role Phone Unavailable Primary Care Provider Unavailabl e Allergies No known active allergies Medications Eliquis 5 MG tablet Take 5 mg by mouth in the morning and at bedtime. 2 Active Symbicort 160-4.5 MCG/ACT inhaler Inhale 2 puffs in the morning and at bedtime. 2 Active celecoxib (CeleBREX) 50 MG capsule Take by mouth. Acti ve clonazePAM (KlonoPIN) 0.5 MG tablet 2 Active furosemide (Lasix) 40 MG tablet Take 40 mg by mouth in the morning. 2 Active methotrexate 2.5 MG tablet Take 25 mg by mouth every 7 (seven) days. 2 Active folic acid (Folvite) 1 MG tablet Take 1 tablet by mouth in the morning. 1 Active metoprolol succinate XL (Toprol-XL) 100 MG 24 hr tablet TOME TANIYA TABLETA TODOS LOS D 2 Active Entresto 24-26 MG tablet TAKE 1 TABLET BY MOUTH 2 TIMES DAILY FOR 120 DAYS. 2 Active hydrOXYzine pamoate (Vistaril) 50 MG capsule TOME 2 C PSULAS POR V A ORAL AL ACOSTARSE CUANDO SEA NECESARIO 2 Active PARoxetine (Paxil) 40 MG tablet Take 40 mg by mouth in the morning. 2 Active sucralfate (Carafate) 1 g tablet TOME TANIYA TABLETA DOS VECES AL D A 2 Active Melatonin Maximum Strength 5 MG tablet TOME TANIYA TABLETA TODOS LOS D AL ACOSTARSE CUANDO SEA NECESARIO 2 Active mirtazapine (Remeron) 30 MG tablet Take 30 mg by mouth at bedtime. 2 Active glyBURIDE (Diabeta) 5 MG tablet Take 5 mg by mouth in the morning and at bedtime. 1 Active Stelara injection 2 Active albuterol (ProAir HFA) 108 (90 Base) MCG/ACT inhaler Inhale 2 puffs every 4 (four) hours if needed. Active Active Problems Problem Noted Date Diagnosed Date Class 1 obesity 12/28/2024 Acute respiratory failure with hypoxia (CMS/HCC) 01/03/2022 HFrEF (heart failure with reduced ejection fract ion) 01/03/2022 Overview (12/28/2024): Last Assessment & Plan: The patient has heart failure with reduced ejection fraction. Etiology: Nonischemic EKG: Normal sinus rhythm. Right bundle branch block. Last ischemic work-up: Left heart catheterization in January 2023 (no evidence of obstructive CAD). Last documented LVEF: 46% by cardiac MRI done in August 2022. Previously, LVEF was 35 to 40% by echocardiogram done in October 2021 Current symptom classification: NYHA class 2 Guideline directed medical therapy: 1. Beta-blockers: Metoprolol succinate 100 mg orally daily 2. ARNI / GRAY inhibitor / ARB: Entresto 24/26 mg orally twice daily 3. MRA: Spironolactone 25 mg orally daily 4. SGL2 inhibitor: Dapagliflozin 10 mg orally daily Candidate for ICD or SIGN LANGUAGE INTERPRETER: Not a candidate for an ICD or SIGN LANGUAGE INTERPRETER given LVEF. Assessment and plan: The patient is already on the maximum tolerated doses of his guideline directed medical therapy for his underlying heart failure. Cardiac MRI in August 2022 showed an LVEF of 46%. We will order a new echocardiogram to reevaluate his LVEF. Hypoglycemia 01/03/2022 Leukopenia 01/03/2022 Nephrolithiasis 01/03/2022 Cocaine use 09/26/2021 Overview (12/28/2024): During hospital stay at [facility] 06/15/21 to 08/21/21. Snorted cocaine in hospital room 06/19/21 caausing precititous hypoexemia rquiring urgent intubation from cocainelung and cardiac toxicity with cmbined noncardiogenic and cardiogenic pulmonary edema. COVID-19 09/26/2021 Overview (12/28/2024): Symptoms sarted 06/14/21. Tested positive 06/15/21. Acute respiratory failure. Prolonged [facility] hospital stay 06/2021 to 08/2021. 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 Chronic kidney disease, unspecified 08/26/2021 Encounter for observation an d evaluation of for suspected respiratory condition 08/26/2021 Fall 08/26/2021 Heart failure, unspecified 08/26/2021 History of falling 08/26/2021 Immunodeficiency due to drugs 08/26/2021 Increased infection risk sta tus post immunosuppressive therapy 08/26/2021 Low back pain 08/26/2021 Major depressive disorder, single episode, unspe cified 08/26/2021 Morbid obesity (CMS/HCC) 08/26/2021 Calculus of kidney and ureter 08/26/2021 Crohn's disease with rectal bleeding (CMS/HCC) 0 12/21/2020 IBD (inflammatory bowel disease) 12/15/2018 Elevated PSA 02/25/2018 Overview (12/28/2024): Referred to urology Subarachnoid hemorrhage (CMS/HCC) 08/26/2016 Overview (12/28/2024): Nontraumatic, in the setting of thrombocytopenia, no evacuation needed, [place] [facility] [place] Diabetes mellitus type 2 with neurological manif estations 09/01/2013 Overview (12/28/2024): Podiatry exam on 07/20/13. Gout 05/26/2013 Anxiety and depression 10/06/2012 Unspecified asthma, uncomplicated 10/06/2012 OA (osteoarthritis) of knee 08/04/2012 Obesity (BMI 30-39.9) 05/25/2012 Essential hypertension, benign 01/27/2012 Overview (12/28/2024): Last Assessment & Plan: The patient has a history of arterial hypertension. The patient's blood pressure today was noted to be well controlled. We'll continue the current antihypertensive medication regimen. Ulcerative colitis 11/07/2011 Social History Tobacco Use Types Packs/Day Years Used Date Smoking Tobacco: Never Smokeless Tobacco: Never Tobacco Cessation:Counseling Given: Not Answered Sex and Gender Information Value Date Recorded Sex Assigned at Male 04/08/2022 10:16 AM EDT Legal Sex Male 10:16 AM EDT Gender Identity Male 04/08/2022 10:16 AM EDT Sexual Orientation Straight 04/08/2022 10 :16 AM EDT Plan of Treatment Health Maintenance Due Date Last Done Comments CT Colonography 1958 Colonoscopy 1958 Colorectal Cancer Screening 1958 Dental Oral Exam 1958 Dental Prophylaxis 1958 Dental X-Ray: Bitewings 1958 Dental X-Ray: Full Mouth 1958 Depression Screening 1958 FIT DNA/Cologuard 1958 FIT 1958 FOBT 1958 Lipid Panel 1958 SDOH Screening 1958 Sigmoidoscopy 1958 COVID-19 Vaccine (#1) 09/09/1963 Diabetes: Foot Exam 1968 Eye Exam 1968 Alcohol/Substance Use Screening 1970 Hepatitis C Screening 1976 Zoster Vaccines (1 of 2) 1977 RSV Patients and Patients Aged 60 years or older (1 - Risk 50-74 years 1-dose series) 2008 Pneumococcal Vaccine: 50+ Years (3 of 3 - PCV20 or PCV21) 05/04/2015 03/09/2015, 07/13/2009 DTaP/Tdap/Td Vaccines (2 - Td or Tdap) 04/06/2022 04/06/2012 Diabetes: Hemoglobin A1C 09/28/2024 06/30/2024 Influenza Vaccine (#1) 2025 6, 02/11/2015, 03/15/2014, Additional history exists Diabetes: Urine Protein Screening 04/22/2025 04/22/2024 Tobacco Screening 12/28/2025 12/28/2024 HIB Vaccines Aged Out No longer eligi ble based on patient's age to complete this topic HPV Vaccines Aged Out No longer eligi ble based on patient's age to complete this topic Hepatitis A Vaccines Aged Out No long er eligible based on patient's age to complete this topic Hepatitis B Vaccines Aged Out No long er eligible based on patient's age to complete this topic IPV Vaccines Aged Out No longer eligi ble based on patient's age to complete this topic Meningococcal B Vaccine Aged Out No l onger eligible based on patient's age to complete this topic Meningococcal Vaccine Aged Out No chilango susan eligible based on patient's age to complete this topic RSV under 20 months Aged Out No longe r eligible based on patient's age to complete this topic Rotavirus Vaccines Aged Out No longer eligible based on patient's age to complete this topic Insurance [facility]
--- OUTSIDE RECORDS SUMMARY | 2025-04-28 01:35 | XMS_ITS | Encounter Summary ---
Author Organization [employer] Address [address] [place] [address] 7t [place] [address] Care Team Providers Care Gold And Silver Assayer Name Role Phone Unavailable Primary Care Provider Unavailabl e Encounter Details Date Type Department Care Team (Latest Contact Info) Description 10/05/2020 Abstract [facility] CONVERSIONS Dental, Provider, DDS Social History Tobacco [...]
--- OUTSIDE RECORDS SUMMARY | 2025-04-28 01:35 | XMS_ITS | Encounter Summary ---
Author Organization [employer] Address [address] [place] [address] 7t [place] [address] Care Team Providers Care Telephone Quotation Clerk Name Role Phone Unavailable Primary Care Provider Unavailabl e Encounter Details Date Type Department Care Team (Latest Contact Info) Description 08/05/2018 Abstract [facility] CONVERSIONS Dental, Provider, DDS Social History [...]
--- OUTSIDE RECORDS SUMMARY | 2025-04-28 01:35 | XMS_ITS | Patient Health Record ---
Author Organization [facility] Address [address] [place] [phone] Care Team Providers Care Pattern Finisher Name Role Phone Marco Antonio Cunningham Unavailable [phone] Reason For Referral No Information Plan Of Treatment No Information
--- OUTSIDE RECORDS SUMMARY | 2025-04-28 01:35 | XMS_ITS ---
[facility] Name [facility] Care Team Organization Name Specialty Phone Email Start Date End Da te [facility] Primary Care 04/16/2022 4
--- OUTSIDE RECORDS SUMMARY | 2025-04-28 01:35 | XMS_ITS | Encounter Summary ---
Author Organization [facility] Address [address] [place] [phone] Phone Care Team Providers Care Income Tax Analyst Name Role Phone Luke Kamara MD Primary Care Provider + Encounter Details Date Type Department Care Team (Late st Contact Info) Description 03/19/2023 Procedure Pass [facility]O DEPT 55 [facility], 4th [place] [address] Social History Tobacco Use Types Packs/Day Years [...] (Latest Contact Info) Description 05/13/2025 Procedure Pass [facility] 4 ENDO DEPT [address] [address] 05/13/2025 11:45 AM EST Hospital Encounter [facility] 4 ENDO DEPT [address] [address] Jose Lund MBBS, MPH [address] [phone] SEVEN @[email or web address] 05/13/2025 11:45 AM EST Anesthesia Event [facility] 4 ENDO DEPT 55 [facility], [address] [place] [address] Crystal Martinez RN [address] [place] [phone] [email or web address] 05/13/2025 11:45 AM EST - 05/13/2025 12:30 PM EST Surgery [facility] 4 ENDO DEPT [address] [address] Jose Lund MBBS, MPH [address] [phone] SEVEN @[email or web address] COLONOSCOPY 08/11/2025 1:00 PM EST Office Visit [facility] [address] [place] [address] Geneva Gerardo FNP [address] [address] [email or web address] Scheduled Procedures Name Priority Associated Diagnoses Date/Ti me COLONOSCOPY Crohn's disease with rectal bleeding, unspecified gastrointestinal tract location 05/13/2025 11:45 AM EST documented as of this encounter Visit Diagnoses Not on filedocumented in this encounter Additional Health Concerns Infection Onset Date Last Indicated Resolved Time CDiff-Risk 09/18/2023 09/18/2023 09/25/2023 1:22 AM EDT documented as of this encounter Care Teams Income Tax Analyst Relationship Specialty Start Date End Date Luke Kamara MD [address] [place] [id number] PCP - General Internal Medicine 07/26/20 documented as of this encounter Additional Source Comments The information contained in this document represents components of the legal health record. It is not the complete legal health record.[facility]
--- OUTSIDE RECORDS SUMMARY | 2025-04-28 01:35 | XMS_ITS | Encounter Summary ---
Author Organization [employer] Address [address] [place] [address] 7[address] [place] [address] Care Team Providers Care Hooker Inspector Name Role Phone Unavailable Primary Care Provider Unavailabl e Reason for Visit * Reason Onset Date Comments denture follow up 11/24/2024 Encounter Details Date Type Department Care Team (Late st Contact Info) Description 11/24/[address] [facility] ADULT D[facility] [address] [place] [address] Diomedes Paul DDS [address] [place] [address] denture follow up Social History Tobacco Use Types Packs/Day Years Used Date Smoking Tobacco: Never Assessed Sex and Gender Information Value Date Recorded Sex Assigned at Male 04/08/2022 10:16 AM EDT Legal Sex Male 10:16 AM EDT Gender Identity Male 04/08/2022 10:16 AM EDT Sexual Orientation Straight 04/08/2022 10 :16 AM EDT documented as of this encounter Miscellaneous Notes * Telephone Encounter - Berkley Thakur - 11/24/2024 4:06 PM EDT Lower partial falling off even with denture glue and upperr partial cracking. Would like a denture follow up appt documented in this encounter Plan of Treatment Not on file documented as of this encounter Visit Diagnoses Not on filedocumented in this encounter
--- OUTSIDE RECORDS SUMMARY | 2025-04-28 01:36 | XMS_ITS | Encounter Summary ---
Author Organization [facility] Address [address] [facility] [address] [place] [address] Phone Care Team Providers Care Odd Shoe Examiner Name Role Phone Luke Kamara MD Primary Care Provider + Encounter Details Date Type Department Care Team (Late st Contact Info) Description 12/08/2020 Procedure Pass [facility]O DEPT 55 [facility], [address] [place] [address] Social History Tobacco Use Types Packs/Day Years Used Date Smoking Tobacco: Never Smokeless Tobacco: Never Alcohol Use Standard Drinks/Week Comments Not Currently 0 (1 standard drink = 0.6 oz pur e alcohol) Sex and Gender Information Value Date Recorded Sex Assigned at Not on file Legal Sex Male 9:50 PM EDT Gender Identity Not on file Sexual Orientation Not on file documented as of this encounter Plan of Treatment Upcoming Encounters Date Type Department Care Team (Latest Contact Info) Description 05/13/2025 Procedure Pass [facility] DEPT 55 [facility], [address] [place] [address] 05/13/2025 11:45 AM EST Hospital Encounter [facility]O DEPT 55 [facility], [address] [place] [address] Jose Lund MBBS, MPH [address] [phone] SEVNE @[email or web address] 05/13/2025 11:45 AM EST Anesthesia Event [facility] 4 ENDO DEPT 55 [facility], [address] [place] [address] Crystal Martinez, RN [address] [place] [phone] [email or web address] 05/13/2025 11:45 AM EST - 05/13/2025 12:30 PM EST Surgery [facility] 4 ENDO DEPT 55 [facility], [address] [place] [address] Jose Lund MBBS, MPH 55 [facility] [address] [place] [phone] SEVEN @[email or web address] COLONOSCOPY 08/11/2025 1:00 PM EST Office Visit [facility] [address] [facility] [address] [place] [address] Geneva Gerardo FNP 55 [facility] [place] [address] [email or web address] Scheduled Procedures Name Priority Associated Diagnoses Date/Ti me COLONOSCOPY Crohn's disease with rectal bleeding, unspecified gastrointestinal tract location 05/13/2025 11:45 AM EST documented as of this encounter Visit Diagnoses Not on filedocumented in this encounter Additional Health Concerns Infection Onset Date Last Indicated Resolved Time CDiff-Risk 09/18/2023 09/18/2023 09/25/2023 1:2 2 AM EDT documented as of this encounter Care Teams Odd Shoe Examiner Relationship Specialty Start Date End Date Luke Kamara MD [address] [place] [id number] PCP - General Internal Medicine 07/26/20 documented as of this encounter Additional Source Comments The information contained in this document represents components of the legal health record. It is not the complete legal health record.[facility]
--- OUTSIDE RECORDS SUMMARY | 2025-04-28 01:36 | XMS_ITS | Clinical Summary ---
Author Organization [facility] Address [address] [facility] [address] [place] [address] Phone Care Team Providers Care Barista Name Role Phone Luke Kamara MD Primary Care Provider + Allergies No known active allergies Medications acetaminophen (TYLENOL) 325 mg tablet Take 650 mg by mouth every 6 (six) hours as needed for mild pain. Active ibuprofen (ADVIL,MOTRIN) 200 MG tablet Take 200 mg by mouth every 6 (six) hours as needed for pain (specific location in comments). Active ferrous gluconate 324 mg (37.5 mg elemental) Tab Take 1 tablet (324 mg total) by mouth 3 (three) times a day. 90 tablet 2 Active Additional Information Patient not taking.Reported on 04/14/2025 folic acid (FOLVITE) 1 MG tablet TAKE 1 TABLET BY MOUTH EVERY DAY 90 tablet 1 Active Additional Information Patient not taking.Reported on 04/14/2025 metoprolol succinate (TOPROL-XL) 100 MG 24 hr tablet TOME TANIYA TABLETA TODOS LOS D 022 Active hydrOXYzine (VISTARIL) 50 MG capsule TOME 2 C PSULAS POR V A ORAL AL ACOSTARSE CUANDO SEA NECESARIO Active PARoxetine (PAXIL) 40 MG tablet Take 40 mg by mouth. Active melatonin 5 mg Tab TOME TANIYA TABLETA TODOS LOS D AL ACOSTARSE CUANDO SEA NECESARIO Active mirtazapine (REMERON) 30 MG tablet TAKE 1 TABLET BY MOUTH EVERYDAY AT BEDTIME 022 Active glyBURIDE (DIABETA) 5 MG tablet Take 5 mg by mouth. 021 Active budesonide-formoter ol (SYMBICORT) 160-4.5 mcg/actuation inhaler Inhale 2 puffs into the lungs. 022 Active albuterol 90 mcg/actuation inhaler Inhale 2 puffs into the lungs every 4 (four) hours as needed. Active celecoxib (CELEBREX) 50 MG capsule Take by mouth. Active FARXIGA 10 mg tablet TOME TANIYA TABLETA POR V A ORAL TODOS LOS D 023 Active apixaban (ELIQUIS) 5 mg tablet Take 5 mg by mouth. 022 Active furosemide (LASIX) 40 MG tablet Take 40 mg by mouth. 022 Active sacubitril-valsarta n 24-26 mg per tablet TAKE 1 TABLET BY MOUTH 2 TIMES DAILY FOR 120 DAYS. 022 Active spironolactone (ALDACTONE) 25 MG tablet TOME TANIYA TABLETA TODOS LOS D 023 Active upadacitinib (RINVOQ) 45 mg ER 24 hr tabletIndications:C rohn's disease with rectal bleeding, unspecified gastrointestinal tract location Take 1 tablet (45 mg total) by mouth daily. 28 tablet 2 025 Active ustekinumab (STELARA) 90 mg/mL Syrg subcutaneous injection syringeIndications: Crohn's disease with rectal bleeding Inject 1 mL (90 mg total) under the skin every 28 days. 1 mL 2 025 Active RINVOQ 45 mg ER 24 hr tabletIndications:C rohn's disease with rectal bleeding, unspecified gastrointestinal tract location TAKE 1 TABLET (45MG) BY MOUTH DAILY 30 tablet 2 025 2024 Discontinued ustekinumab (STELARA) 90 mg/mL Syrg subcutaneous injection syringeIndications: Crohn's disease with rectal bleeding Inject 1 mL (90 mg total) under the skin every 28 days. 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 02/27/2023 Chronic kidney disease, unspecified 08/26/2021 02/27/2023 Essential (primary) hypertension 08/26/2021 02/27/2023 Heart failure, unspecified 08/26/202102/27 History of falling 08/26/2021 02/27/2023 Immunodeficiency due to drugs 08/26/2021 Major depressive disorder, single episode, unspe cified 08/26/2021 02/27/2023 Unspecified asthma, uncomplicated 08/26/2021 02/27/2023 Crohn's disease with rectal bleeding 12/21/2020 Encounters Date Type Department Care Team Description 04/27/2025 4:45 PM EST Pre-Admission Testing [facility] Pre-Procedure Evaluation Department [place] [address] Unknown, Pushpa, 04/14/2025 1:30 PM EST Office Visit [facility] [address] [address] Jose Montgomery MBBS, MPH Crohn's disease with rectal bleeding, unspecified gastrointestinal tract location (Primary Dx); Immunosuppression; Crohn's disease with rectal bleeding 04/01/2025 Refill [facility] [address] [address] Geneva Gerardo FNP Medication Refill 03/07/2025 Documentation [facility] [address] [place] [id number] Demarco Osman, [facility] 03/03/2025 Documentation [facility] [address] [place] [phone] Reshma Hugo, [facility] 02/22/2025 Refill [facility] [address] [address] Geneva Gerardo FNP Medication Refill 02/03/2025 Documentation [facility] [address] [place] [id number] Stephanie Loyd RPH 01/26/2025 Documentation [facility] [address] [place] [id number] Reshma Hugo RPH from Last 3 Months Social History Tobacco Use Types Packs/Day Years [...] on file Sexual Orientation Not on file Last Filed Vital Signs Vital Sign Reading Time Taken Comments Blood Pressure 153/89 04/14/2025 12:25 PM EST Pulse 104 04/14/2025 12:25 PM EST Temperature 36.3 C (97.4 F) 04/14/2025 12:24 PM EST Respiratory Rate 18 05/24/2022 1:25 PM EST Oxygen Saturation 95% 04/14/2025 12:25 PM EST Inhaled Oxygen Concentration - - Weight 114.3 kg (252 lb) 04/14/2025 12:24 PM EST Height 190.5 cm (6' 3 ) 04/14/2025 12:24 PM EST Body Mass Index 31.5 04/14/2025 12:24 PM EST Plan of Treatment Upcoming Encounters Date Type Department Care Team (Latest Contact Info) Description 05/13/2025 Procedure Pass [facility] 55 [facility], [address] [place] [id number] 05/13/2025 11:45 AM EST Hospital Encounter [facility] 55 [facility], [address] [place] [phone] Jose Lund MBBS, MPH [address] [phone] SEVEN @[email or web address] 05/13/2025 11:45 AM EST Anesthesia Event [facility] 55 [facility], [address] [place] [address] Crystal [address], CHRIS [address] [place] [address] [email or web address] 05/13/2025 11:45 AM EST - 05/13/2025 12:30 PM EST Surgery [facility] [address] [address] Jose Lund MBBS, MPH [address] [phone] SEVEN @[email or web address] COLONOSCOPY 08/11/2025 1:00 PM EST Office Visit [facility] [address], [place] [address] Geneva Gerardo FNP 55 [facility] 5 [place] [address] [email or web address] Scheduled Procedures Name Priority Associated Diagnoses Date/Ti me COLONOSCOPY Crohn's disease with rectal bleeding, unspecified gastrointestinal tract location 05/13/2025 11:45 AM EST Health Maintenance Due Date Last Done Comments COVID-19 VACCINE (#1) 09/09/1963 DEPRESSION SCREENING 1970 ZOSTER VACCINES (1 of 2) 1977 COLOGUARD 09/09/2003 FIT TEST 09/09/2003 FOBT 09/09/2003 SIGMOIDOSCOPY 09/09/2003 VIRTUAL COLONOSCOPY 09/09/2003 RSV VACCINE (1 - Risk 50-74 years 1-dose series) 2008 PNEUMOCOCCAL VACCINES (50+ years) (3 of 3 - PCV20 or PCV21) 05/04/2015 03/09/2015, 07/13/2009 Adult Td,Tdap Booster 04/06/2022 04/06/2012 DIABETIC EYE EXAM 02/27/2023 INFLUENZA VACCINE (#1) 2025 6, 02/11/2015, 03/15/2014, Additional history exists HEMOGLOBIN A1C 08/22/2025 02/22/2025, 06/10, 10/14/2022 BLOOD PRESSURE 10/12/2025 04/14/2025 LIPID PANEL 02/22/2026 02/22/2025, 07/11, 08/03/2024, Additional history exists CREATININE LEVEL 04/14/2026 04/14/2025, , 09/18/2023, Additional history exists POTASSIUM LEVEL 04/14/2026 04/14/2025, 07/11, 09/18/2023, Additional history exists COLONOSCOPY 05/24/2032 05/24/2022, 12/08/2020 COLORECTAL CANCER SCREENING 05/24/2032 HEPATITIS C SCREENING Completed 03/07/2021, 021 SMOKING STATUS SCREENING (Once After 26 Yrs) Completed 04/14/2025 HEPATITIS A VACCINES Aged Out No long er eligible based on patient's age to complete this topic HIB VACCINES Aged Out No longer eligi ble based on patient's age to complete this topic IPV VACCINES Aged Out No longer eligi ble based on patient's age to complete this topic MENINGOCOCCAL VACCINES (ACWY) Aged Out No longer eligible based on patient's age to complete this topic MENINGOCOCCAL VACCINES (B) Aged Out N o longer eligible based on patient's age to complete this topic Medical Devices Not on file Procedures Procedure Name Priority Date/Time Associated Diagnosis Comments CBC AND DIFFERENTIAL Routine 04/14/2025 1:06 PM EST Crohn's disease with rectal bleeding, unspecified gastrointestinal tract location CBC AND DIFFERENTIAL Routine 04/14/2025 1:06 PM EST Crohn's disease with rectal bleeding, unspecified gastrointestinal tract location COMPREHENSIVE METABOLIC PANEL (CMP) Routine 04/14/2025 1:06 PM EST Crohn's disease with rectal bleeding, unspecified gastrointestinal tract location C-REACTIVE PROTEIN (CRP) Routine 04/14/2025 1:06 PM EST Crohn's disease with rectal bleeding, unspecified gastrointestinal tract location EXTERNALLY RESULTED CHEMISTRY Routine 08/03/2024 12:37 PM EST OUTSIDE HEMOGLOBIN A1C Routine 10/14/2022 ENDOSCOPY, COLON 05/24/2022 12:0 6 PM EST HEPATITIS B CORE ANTIBODY, TOTAL Routine 03/07/2021 1:30 PM EDT Crohn's disease with rectal bleeding, unspecified gastrointestinal tract location from Last 3 Months or Most Recently Relevant to Health Maintenance Results * (ABNORMAL) Comprehensive Metabolic Panel (CMP) (04/14/2025 1:06 PM EST) Sodium 141 136 - 145 mmol/L 04/14/2025 5:29 PM EST [facility] Potassium 4.5 3.4 - 5.1 mmol/L 04/14/2025 5:29 PM EST [facility] Chloride 101 98 - 107 mmol/L 04/14/2025 5:29 PM EST [facility] CO2 30 20 - 31 mmol/L 04/14/2025 5:29 PM EST [facility] Anion Gap 10 3 - 17 mmol/L 04/14/2025 5:29 PM EST [facility] BUN 22 6 - 23 mg/dL 04/14/2025 5:29 PM [facility] Creatinine 1.13 0.60 - 1.30 mg/dL 04/14/2025 5:29 PM [facility] eGFR 72 >59 mL/min/1. 73m2 04/14/2025 5:29 PM [facility] Comment:Estimated glomerular filtration rate calculated using the CKD-EPI refit equation. Glucose 123(H) 70 - 99 mg/dL 04/14/2025 5:29 PM [facility] Calcium 9.7 8.5 - 10.5 mg/dL 04/14/2025 5:29 PM [facility] AST 36 10 - 40 U/L 04/14/2025 5:29 PM [facility] ALT 22 10 - 55 U/L 04/14/2025 5:29 PM [facility] Alkaline Phosphatase 81 40 - 130 U/L 04/14/2025 5:29 PM [facility] Bilirubin, Total 0.7 0.0 - 1.2 mg/dL 04/14/2025 5:29 PM [facility] Total Protein 7.9 6.4 - 8.3 g/dL 04/14/2025 5:29 PM [facility] Albumin 4.5 3.5 - 5.2 g/dL 04/14/2025 5:29 PM [facility] Globulin 3.4 1.9 - 4.1 g/dL 04/14/2025 5:29 PM [facility] Blood (Blood) Venipuncture / Unknown 04/14/2025 1:06 PM EST 04/14/2025 1:06 PM [facility] us Jose BLANKENSHIP, MPH LAB BLOOD BKR ORDERABLES Final Result [facility] [address] [place] [address] * (ABNORMAL) CBC and Differential (04/14/2025 1:06 PM [facility]) WBC 5.16 4.00 - 11.00 K/uL 04/14/2025 4:35 PM [facility] RBC 4.36(L) 4.50 - 5.90 M/uL 04/14/2025 4:35 PM [facility] Hemoglobin 14.1 13.5 - 17.5 g/dL 04/14/2025 4:35 PM [facility] Hematocrit 44.8 41.0 - 53.0 % 04/14/2025 4:35 PM [facility] MCV 102.8(H) 80.0 - 100.0 fL 04/14/2025 4:35 PM [facility] MCH 32.3(H) 27.0 - 31.0 pg 04/14/2025 4:35 PM [facility] MCHC 31.5(L) 32.0 - 36.0 g/dL 04/14/2025 4:35 PM [facility] MPV 9.6 8.4 - 12.0 fL 04/14/2025 4:35 PM [facility] RDW-CV 14.2 11.5 - 14.5 % 04/14/2025 4:35 PM [facility] PLT 316 150 - 450 K/uL 04/14/2025 4:35 PM [facility] Neutrophils 67.4 % 04/14/2025 4:35 PM [facility] Lymphocytes 22.1 % 04/14/2025 4:35 PM [facility] Monocytes 9.3 % 04/14/2025 4:35 PM [facility] Eosinophils 0.4 % 04/14/2025 4:35 PM [facility] Basophils 0.4 % 04/14/2025 4:35 PM [facility] Imm Grans 0.4 % 04/14/2025 4:35 PM [facility] NRBC 0.0 <=0.0 /100 WBCs 04/14/2025 4:35 PM [facility] Absolute Neutrophils 3.48 1.92 - 7.60 K/uL 04/14/2025 4:35 PM [facility] Absolute Lymphocytes 1.14 0.72 - 4.10 K/uL 04/14/2025 4:35 PM [facility] Absolute Monocytes 0.48 0.16 - 1.10 K/uL 04/14/2025 4:35 PM [facility] Absolute Eosinophils 0.02 0.00 - 0.50 K/uL 04/14/2025 4:35 PM [facility] Absolute Basophils 0.02 0.00 - 0.15 K/uL 04/14/2025 4:35 PM [facility] Absolute Imm Grans 0.02 0.00 - 0.09 K/uL 04/14/2025 4:35 PM [facility] Absolute NRBC 0.00 <=0.00 K cells/uL 04/14/2025 4:35 PM [facility] Absolute Neutrophils 3.48 1.92 - 7.60 K/uL 04/14/2025 4:35 PM [facility] Comment:Automated cell count . Manual ANC may differ if performed. Diff Type Auto 04/14/2025 4:35 PM [facility] Blood (Blood) Venipuncture / Unknown 04/14/2025 1:06 PM EST 04/14/2025 1:06 PM EST Jsoe BLANKENSHIP, MPH LAB BLOOD BKR ORDERABLES Final Result Performing Organization Address [facility] Co de Phone Number [address] [phone] * C-Reactive Protein (CRP) (04/14/2025 1:06 PM EST) Pathologist [facility] C Reactive Protein 0.2 <10.0 mg/L 04/14/2025 5:46 PM [facility] Comment:NOTE: This reference range is for the evaluation of inflammation. Order CRP, High Sensitivity for cardiac risk status evaluation. Blood (Blood) Venipuncture / Unknown 04/14/2025 1:06 PM EST 04/14/2025 1:06 PM EST Jose BLANKENSHIP, MPH LAB BLOOD BKR ORDERABLES Final Result Performing Organization Address [facility] Co de Phone Number [address] [address] * (ABNORMAL) EXTERNALLY RESULTED CHEMISTRY (08/03/2024 12:37 PM EST) Pathologist [facility] Sodium - External 142 133 - 145 mmol/L Comment:Done At [facility] Potassium - External 4.1 3.5 - 5.5 mmol/L Comment:Done At [facility] Chloride - External 107 96 - 110 mmol/L Comment:Done At [facility] CO2 - External 31 21 - 32 mmol/L Comment:Done At [facility] BUN - External 16 5 - 25 mg/dL Comment:Done At [facility] Creatinine, serum - External 0.96 0.70 - 1.30 mg/dL Comment:Done At [facility] BUN/Creatinine - External eGFR - External Glucose - External 178(A) 70 - 100 mg/dL Comment:Done At [facility] Calcium - External 8.9 8.5 - 10.5 mg/dL Comment:Done At [facility] Phosphorus - External Magnesium - External Albumin - External 3.3 3.2 - 5.0 g/dL Comment:Done At [facility] Bilirubin, total - External 0.4 0.0 - 1.4 mg/dL Comment:Done At [facility] Bilirubin, direct - External Bilirubin (conjugated) - External Bilirubin, indirect - External Protein - External 6.8 6.0 - 8.0 g/dL Comment:Done At [facility] Alkaline Phosphatase - External 99 42 - 121 U/L Comment:Done At [facility] AST - External 17 10 - 42 U/L Comment:Done At [facility] ALT - External 18 10 - 60 U/L Comment:Done At [facility] Amylase - External Lipase (u/L) - External Cholesterol, total - External 157 0 - 200 mg/dL Comment:Done At [facility] LDL - External 58 0 - 100 mg/dL Comment:Done At [facility] Triglycerides - External 53 0 - 150 mg/dL Comment:Done At [facility] HDL - External 88 >=40 mg/dL Comment:Done At [facility] TIBC - External Iron - External Ferritin - External Folate - External Vitamin B12 - External CK - External Cotinine - External C-peptide (ng/mL) - External C-peptide (pmol/L) - External HCG, qualitative - External HCG, total - External NT-proBNP - External PTH - External TSH - External T3 - External Total T4 - External Free T4 - External Vitamin D 25(OH) - External AFP (Tumor Marker) - External Uric Acid - External PSA - External GGT - External Lactate, dehydrogenase - External Ammonia - External Vitamin A - External Alk phos: Intestinal Isoenzymes - External Alk phos: Bone Isoenzymes - External Alk phos: Liver Isoenzymes - External Alk phos: Placental Isoenzymes - External Alk phos: Macrohepatic Isoenzymes - External Cystatin C - External 08/03/2024 12:3 7 PM EST Historical Provider LAB BLOOD ORDERABLES Berkley l Result * Outside HbA1c (10/14/2022) Hemoglobin A1c - External 5.9 <=6.5 % Historical Provider LAB BLOOD ORDERABLES Berkley l Result * ENDOSCOPY, COLON (05/24/2022 12:06 PM EST) 05/24/2022 12:0 6 PM EST Narrative Transcriptions Jose Lund MBBS, MPH - 05/24/2022 12:06 PM EST G[facility]oscopy Unit Patient Name: Bhavik Kauffman Colon Exam Date: 05/24/2022 12:06 PM Date of : 1960 Admit Type: Outpatient Age: 61 Room: [place] [address] Gender: Male Note Status: Finalized Attending MD: Jose Lund MD Procedure: Colonoscopy Indications: High risk colon cancer surveillance: Ulcerative pancolitis of 8 (or more) years duration Providers: Jose Lund MD Referring MD: Luke Kamara (Referring MD) Medicines: Monitored Anesthesia Care Procedure: After obtaining informed consent, the endoscope was passed under direct vision. Throughout the procedure, the patient's blood pressure, pulse, and oxygen saturations were monitored continuously . The Colonoscope was introduced through the anus and advanced to the the descending colon. The colonoscopy was performed without difficulty. The patient tolerated the procedure well. The quality of the bowel preparation was good. Findings: The perianal and digital rectal examinations were normal. The terminal ileum appeared normal. Biopsies were taken with a cold forceps for histology. Diffuse severe inflammation characterized by small and wide ulcers throughout the colon from the rectum to the cecum. Biopsies were obtained. Impression: - The examined portion of the ileum was normal. Biopsied. - Diffuse severe inflammation characterized by small and wide ulcers throughout the colon from the rectum to the cecum. Biopsies were obtained. Recommendation: - Await pathology report Follow up in the office to discuss next treatments. Attending Participation: I was personally present throughout the entire procedure. Anesthesia administered sedation. Jose Lund MD, [id number] 05/24/2022 12:39:22 PM Number of Addenda: 0 Note Initiated On: 05/24/2022 12:06 PM us Luke Kamara MD GI PROCEDURE ORDERABLES Final Result * Hepatitis B core antibody, total (03/07/2021 1:30 PM EDT) HEP B CORE AB, TOT Negative Negative [facility] Comment:A nonreactive final interpretation indicates that anti-HBc antibodies were not detected in the sample. It is possible that the individual is not infected with HBV. 03/07/2021 1:30 PM EDT 03/07/2021 4:01 PM EDT us Jose BLANKENSHIP, MPH LAB BLOOD BKR ORDERABLES Final Result [address] [address] from Last 3 Months or Most Recently Relevant to Health Maintenance Insurance [facility] MEDICARE PART A & B [facility] MEDICARE REPLACEMENT MEDICARE PART A & B MEDICARE PART A & B MEDICARE PART A & B O MEDICARE REPLACEMENT MEDICARE PART A & B MEDICARE PART A & B O MEDICARE REPLACEMENT MEDICARE PART A & B Member Subscriber Plan / Payer (Ef fective 2005-Present) Name:Bhavik Jean-Baptiste Member ID:[id number] Relation to Subscriber:Self Name:Bhavik Jean-Baptiste Subscriber ID:[id number] Payer ID:[id number] Group ID:Not on file Type:Medicare Address: [employer] [address] [place] [phone] [place] [address] MEDICARE REPLACEMENT SULLY CASILLAS [facility] MEDICARE PART A & B [facility] MEDICARE REPLACEMENT SULLY CASILLAS [id number] Care Teams Barista Relationship Specialty Start Date End Date Luke Kamara MD [address] [place] [id number] PCP - General Internal Medicine 07/26/20 Additional Source Comments The information contained in this document represents components of the legal health record. It is not the complete legal health record[facility]
== END 2025-04-27 20:22 | disposition home or self-care (01) ==
PROVIDERS: Physician Assistant; Emergency Provider Student in an Organized Health Care Education/Training Program; PCP Internal Medicine
DX: J45.901 Unspecified asthma with (acute) exacerbation (principal); R06.00 Dyspnea, unspecified; R07.9 Chest pain, unspecified; Z03.818 Encounter for observation for suspected exposure to other biological agents ruled out; I10 Essential (primary) hypertension; E13.9 Other specified diabetes mellitus without complications; Z79.51 Long term (current) use of inhaled steroids; Z95.0 Presence of cardiac pacemaker
CPT/HCPCS: 36415; 71046; 80048; 80076; 83735; 83880; 84484; 85025; 87637; 93005; 94640; 96365; 99284; 99285; J3475

== ENCOUNTER → 2025-04-27 12:10 | Outpatient (BNV) | payer OTHER, SELFPAY | PROVIDERS: Emergency Provider Student in an Organized Health Care Education/Training Program; PCP Internal Medicine; Visit Provider Internal Medicine | DX: R94.31 Abnormal electrocardiogram [ECG] [EKG] (principal); Z95.0 Presence of cardiac pacemaker | CPT/HCPCS: 93010 ==

== ENCOUNTER → 2025-04-27 12:51 | Outpatient (BNV) | payer OTHER, SELFPAY | PROVIDERS: PCP Internal Medicine; Visit Provider Radiology Diagnostic Radiology | DX: R06.02 Shortness of breath (principal); Z95.0 Presence of cardiac pacemaker | CPT/HCPCS: 71046 ==